=== PATIENT | male | born 1940 | race Caucasian/White ===

== ENCOUNTER 2019-08-21 09:36 | Outpatient (CLI) | payer MEDICARE, SELFPAY ==
[2019-08-22 17:56] LABS: PSA, Diagnostic 0.2 ng/ml (0-6.5)
== END 2019-08-21 09:56 ==
PROVIDERS: PCP Internal Medicine Geriatric Medicine; Visit Provider Nurse Practitioner
DX: C61 Malignant neoplasm of prostate (principal)
CPT/HCPCS: 36415; 84153

== ENCOUNTER 2019-08-28 14:35 | Outpatient (CLI) | payer MEDICARE, SELFPAY ==
[2019-09-01 14:37] LABS: Testosterone, Total 571 ng/dL (240-950)
== END 2019-08-28 14:55 ==
PROVIDERS: PCP Internal Medicine Geriatric Medicine; Visit Provider Nurse Practitioner
DX: C61 Malignant neoplasm of prostate (principal)
CPT/HCPCS: 84403

== ENCOUNTER 2019-09-15 16:07 | Outpatient (CLI) | payer MEDICARE, SELFPAY ==
--- NOTE | 2019-09-15 15:10 | DI.RAD_ITS ---
EXAM: XR RIBS RT W PA LAT CHEST INDICATION: RT SIDED RIB PAIN, R07.81. COMPARISON: CHEST 2 VIEWS PA,LAT from 01/12/2015 TECHNIQUE: 2D digital imaging was performed. FINDINGS: Sternal wires and mitral valve prosthesis are again noted. There is stable blunting at the costophre deric angles. The lungs are otherwise clear. No pneumothorax is seen. No thoracic compression fractu re is seen. There are old right mid rib fractures. There are acute fractures of the distal right 7t h and 8th ribs. IMPRESSION: Acute nondisplaced fractures of the right 7th and 8th ribs.
== END 2019-09-15 16:27 ==
PROVIDERS: PCP Internal Medicine Geriatric Medicine; Visit Provider Internal Medicine
DX: R07.81 Pleurodynia (principal); S22.41XA Multiple fractures of ribs, right side, initial encounter for closed fracture; Z95.2 Presence of prosthetic heart valve
CPT/HCPCS: 71046; 71100

== ENCOUNTER 2020-03-12 14:32 | Outpatient (REF) | payer MEDICARE, SELFPAY ==
[2020-03-12 21:24] LABS: HCT 41.9 % (40.0-50.0); HGB 14.1 g/dL (13.5-17.5); Mean Corp. HGB Concentration 33.7 g/dL (32.0-36.0); Mean Corpuscular Hemoglobin 33.1 pg (27.0-33.0); Mean Corpuscular Volume 98.4 fL (80-95); Mean Platelet Volume 12.4 fL (8.0-11.0); Platelet Count 182 x1000/uL (130-400); RBC 4.26 m/cumm (4.50-6.00); RBC Distribution Width 13.3 % (11.8-14.1); White Blood Cell Count 3.96 k/cumm (4.4-10.8)
[2020-03-12 22:09] LABS: Anion Gap 5.8 mmol/L (3-11); BUN 14 mg/dL (7-18); CO2 30.2 mmol/L (21.0-32.0); CREATININE 1.22 mg/dL (0.70-1.30); Calcium 8.4 mg/dL (8.5-10.1); Chloride 104 mmol/L (98-107); Estimated GFR 57.01 (mL/min/1.73m2); Glucose 93 mg/dL (74-106); Potassium 4.6 mmol/L (3.5-5.1); Sodium 140 mmol/L (136-145); TSH 0.13 uIU/mL (0.36-3.74)
== END 2020-03-12 14:52 ==
LOC: NCHCN 14:32
PROVIDERS: PCP Internal Medicine Geriatric Medicine; Visit Provider Internal Medicine
DX: E03.2 Hypothyroidism due to medicaments and other exogenous substances (principal); I10 Essential (primary) hypertension
CPT/HCPCS: 80048; 85027; 84443

== ENCOUNTER 2020-04-13 02:33 | Outpatient (CLI) | payer MEDICARE, SELFPAY ==
--- NOTE | 2020-04-13 | DI.RAD_ITS ---
EXAM: RF BARIUM SWALLOW CLINICAL HISTORY: DYSPHAGIA, R13.10 TECHNIQUE: COMPARISON: CR XR RIBS RT W PA LAT CHEST from 09/15/2019 FINDINGS: Preliminary films the chest show prior mitral valve replacement, no gross cardiomegaly. No acute int rapulmonary process. No pleural effusion. Lateral view neck shows no gross abnormality of the air-f illed laryngeal structures. Barium was ingested and shows unremarkable appearance of the hypo pharyn x. Esophagus appears to have normal mucosal surface by radiographic criteria. No evidence of strict ure or obstruction. There is an apparent small hiatal hernia. IMPRESSION: Negative barium swallow. If there is high suspicion of esophageal pathology additional evaluation wi th endoscopy would be recommended.
== END 2020-04-13 02:53 ==
PROVIDERS: PCP Internal Medicine; Visit Provider Internal Medicine
DX: R13.10 Dysphagia, unspecified (principal); K44.9 Diaphragmatic hernia without obstruction or gangrene
CPT/HCPCS: 74221

== ENCOUNTER 2020-06-08 11:51 | Outpatient (REF) | payer MEDICARE, SELFPAY ==
[2020-06-08 21:27] LABS: FREE T4 1.22 ng/dL (0.76-1.46)
[2020-06-09 17:39] LABS: PSA, Screening 0.3 ng/mL (0.0-6.5)
== END 2020-06-08 12:11 ==
LOC: NCHCN 11:51
PROVIDERS: PCP Internal Medicine; Visit Provider Internal Medicine
DX: E03.2 Hypothyroidism due to medicaments and other exogenous substances (principal); I10 Essential (primary) hypertension; J30.89 Other allergic rhinitis; C61 Malignant neoplasm of prostate; Z63.4 Disappearance and death of family member
CPT/HCPCS: 84153; 84439; 84443

== ENCOUNTER 2020-08-18 01:16 | Outpatient (CLI) | payer MEDICARE, SELFPAY ==
[2020-08-18 19:58] LABS: PSA, Diagnostic 0.2 ng/mL (0.0-6.5)
== END 2020-08-18 01:36 ==
PROVIDERS: PCP Internal Medicine; Visit Provider Nurse Practitioner
DX: C61 Malignant neoplasm of prostate (principal)
CPT/HCPCS: 36415; 84153

== ENCOUNTER 2020-09-09 02:44 | Outpatient (CLI) | payer MEDICARE, SELFPAY ==
[2020-09-14 17:26] LABS: Testosterone, Total 367 ng/dL (240-950)
[2020-09-15 15:46] LABS: PSA, Diagnostic 0.2 ng/ml (0-6.5)
== END 2020-09-09 03:04 ==
PROVIDERS: PCP Internal Medicine; Visit Provider Nurse Practitioner Family
DX: C61 Malignant neoplasm of prostate (principal)
CPT/HCPCS: 36415; 84403; 84153

== ENCOUNTER 2021-02-21 10:42 | Outpatient (REF) | payer MEDICARE, SELFPAY ==
[2021-02-21 13:49] LABS: HCT 42.1 % (40.0-50.0); HGB 14.3 g/dL (13.5-17.5); MCV 97.2 fL (80-95); MPV 12.9 fL (8.0-11.0); Platelet Count 138 10^3/uL (130-400); RBC 4.33 10^6/uL (4.36-5.78); RDW 13.7 % (11.8-14.1); RDW-SD 48.9 fL; WBC 3.96 10^3/uL (4.4-10.8)
[2021-02-21 14:28] LABS: ALT 23 U/L (16-63); AST 19 U/L (15-37); Albumin 3.5 g/dL (3.4-5.0); Alkaline Phosphatase 73 U/L (46-116); Anion Gap 6.1 mmol/L (3-11); BUN 21 mg/dL (7-18); Bilirubin, Total 0.4 mg/dL (0.2-1.0); CO2 30.9 mmol/L (21.0-32.0); CREATININE 1.2 mg/dL (0.70-1.30); Calcium 8.7 mg/dL (8.5-10.1); Chloride 104 mmol/L (98-107); Estimated GFR 57.96 (mL/min/1.73m2); Glucose 100 mg/dL (74-106); Potassium 4.8 mmol/L (3.5-5.1); Sodium 141 mmol/L (136-145); Total Protein 6.7 g/dL (6.4-8.2)
== END 2021-02-21 10:43 | disposition home or self-care (01) ==
LOC: NCHCN 10:42
PROVIDERS: PCP Internal Medicine; Visit Provider Internal Medicine
DX: R19.4 Change in bowel habit (principal)
CPT/HCPCS: 80053; 85027

== ENCOUNTER 2021-03-11 03:54 | Outpatient (CLI) | payer MEDICARE, SELFPAY ==
[2021-03-11] MEDS: Normal Saline - Diluent 50 ML VIAL IV (09:16)
[2021-03-11] MEDS: Omnipaque 350 MG/ML 100 ML BTL IJ (09:17)
--- NOTE | 2021-03-11 09:20 | DI.CT_ITS ---
Exam(s) CT ABDOMEN PELVIS W EXAM: CT ABDOMEN PELVIS W CLINICAL HISTORY: CHANGE IN BOWEL MOVEMENTS,R19.4 TECHNIQUE: Imaging Protocol: Axial computed tomography images with coronal and sagittal reformatted images were created and reviewed CONTRAST MATERIAL: Intravenous: Omnipaque 350 Contrast volume:100 mL Oral: Yes COMPARISON: CT ABD PELVIS WITH CONTRAST from 09/13/2012 FINDINGS: ABDOMEN: Lung Bases: Stable bilateral parenchymal scarring. Cardiomegaly. Elevation of the right hemidiaphra gm. Liver: Normal density. There is a round hypodensity in the caudal aspect of the right lobe of the trudy er. It is too small for further characterization, but likely reflects a small cyst. No suspicious h epatic masses. Portal, Superior Mesenteric, and Splenic Veins: Unremarkable. Gallbladder and Biliary Tract: No radiodense calculus or dilation. Pancreas: Normal density, no abnormal calcifications or inflammatory process. Spleen: Normal. Adrenals: The right adrenal gland is unremarkable. There is a 2.8 x 2.8 cm left adrenal nodule shazia red with 2.7 x 2.7 cm on the prior examination. This likely reflects an adenoma. No further follow- up is recommended. Kidneys: Normal size, contour and axis. No radiodense stones or obstructive uropathy. There are bilat eral simple renal cysts. No further follow-up is recommended. Stable bilateral extrarenal pelves ar e seen. Abdominal Aorta: Abdominal portion non-dilated. Moderate atherosclerosis. Bowel: There is no evidence of bowel obstruction. There is diverticulosis seen in the descending and sigmoid colon. No findings to suggest acute diverticulitis. No evidence of appendicitis. There is a moderate amount of retained stool throughout the colon. A small to moderate hiatal hernia is pres ent. Peritoneal Cavity: No ascites, collection or mesenteric inflammatory response. No free air. Lymph Nodes: Within normal limits. Bones: Within normal limits for the patient's age. Soft Tissues: Postsurgical changes are seen in the inguinal regions bilaterally suggestive history of prior inguinal repairs. There are findings suggestive of recurrent bilateral fat containing inguina l hernia. PELVIS: Bladder: Symmetric distention, no gross wall thickening. There are few bladder wall diverticula. Reproductive Organs: Prostate gland is mildly enlarged. Lymph Nodes: Within normal limits. Bones: Within normal limits for the patient's age. IMPRESSION: 1. No evidence of bowel obstruction or inflammation. 2. Colonic diverticulosis but no evidence of acute diverticulitis. 3. Moderate amount of retained stool in the colon. RADIATION DOSE DELIVERED: 657.74mGy.cm Total DLP DATA REPOSITORY: All CT scans at this facility are submitted to the National Radiology Data Registry (NRDR) Dose Index Registry (DIR) with the [employer] (ACR). RADIATION OPTIMIZATION: All CT scans at this facility use at least one of these dose optimization te chniques: automated exposure control; mA and/or kV adjustment per patient size (includes targeted exa ms where dose is matched to clinical indication); or iterative reconstruction.
== END 2021-03-11 04:14 ==
PROVIDERS: PCP Internal Medicine; Visit Provider Internal Medicine
DX: R19.4 Change in bowel habit (principal); K59.00 Constipation, unspecified; K57.30 Diverticulosis of large intestine without perforation or abscess without bleeding; N40.0 Benign prostatic hyperplasia without lower urinary tract symptoms; K44.9 Diaphragmatic hernia without obstruction or gangrene
CPT/HCPCS: 74177; J3490

== ENCOUNTER 2021-09-05 00:22 | Outpatient (CLI) | payer MEDICARE, SELFPAY ==
--- NOTE | 2021-09-05 | DI.RAD_ITS ---
Exam(s) RF BARIUM SWALLOW EXAM: RF BARIUM SWALLOW CLINICAL HISTORY: DYSPHAGIA,R13.10 TECHNIQUE: 2D and realtime digital imaging was performed. CONTRAST MATERIAL: Oral barium Oral water soluble contrast was administered. COMPARISON: CR RF BARIUM SWALLOW from 04/13/2020 FINDINGS: Films reveal cardiomegaly and sternotomy wires and prosthetic cardiac valve. Swallowing mechanism appears grossly intact. No penetration or aspiration evident. No obvious hyperte nse upper esophageal sphincter. No evidence of Zenker's diverticulum there is no evidence of fixed l esion in the esophagus. A small sliding-type hiatal hernia is noted and Schatzki ring was demonstrate d. A few tertiary waves were demonstrated. No reflux seen. IMPRESSION: Small sliding-type hiatal hernia. Schatzki ring. No prominent reflux demonstrated RADIATION DOSE DELIVERED: diane Flor=15.9 mGy
[2021-09-05] MEDS: Barium Sulfate 60% W/V 355 ML BTL PO (09:46)
[2021-09-05] MEDS: Simethicone/Sod Bicarb/Cit Ac, 4 gram PACKET 1 PACKET PO (09:47)
== END 2021-09-05 00:42 ==
PROVIDERS: PCP Internal Medicine; Visit Provider Family Medicine
DX: R13.10 Dysphagia, unspecified (principal); K44.9 Diaphragmatic hernia without obstruction or gangrene; K22.2 Esophageal obstruction
CPT/HCPCS: 74221; J3490

== ENCOUNTER 2022-03-20 11:46 | Outpatient (REF) | payer MEDICARE, SELFPAY ==
[2022-03-20 18:09] LABS: HCT 42.1 % (40.0-50.0); HGB 13.6 g/dL (13.5-17.5); MCH 32.3 pg (27.0-33.0); MCHC 32.3 % (32.0-36.0); MCV 100 fL (80-95); MPV 11.2 fL (8.0-11.0); Platelet Count 220 10^3/uL (130-400); RBC 4.21 10^6/uL (4.36-5.78); RDW 13.2 % (11.8-14.1); RDW-SD 48.7 fL; WBC 4.71 10^3/uL (4.4-10.8)
[2022-03-20 18:32] LABS: ALT 15 U/L (16-63); AST 16 U/L (15-37); Albumin 3.7 g/dL (3.4-5.0); Alkaline Phosphatase 93 U/L (46-116); Anion Gap 8.1 mmol/L (3-11); BUN 19 mg/dL (7-18); Bilirubin, Total 0.6 mg/dL (0.2-1.0); CO2 28.9 mmol/L (21.0-32.0); CREATININE 1.3 mg/dL (0.70-1.30); Chloride 105 mmol/L (98-107); Estimated GFR 52.72 (mL/min/1.73m2); Glucose 80 mg/dL (74-106); Potassium 4.7 mmol/L (3.5-5.1); Sodium 142 mmol/L (136-145); TSH 0.81 uIU/mL (0.36-3.74); Total Protein 6.8 g/dL (6.4-8.2)
== END 2022-03-20 11:47 | disposition home or self-care (01) ==
LOC: NCHCN 11:46
PROVIDERS: PCP Internal Medicine; Visit Provider Family Medicine
DX: E03.2 Hypothyroidism due to medicaments and other exogenous substances (principal); I10 Essential (primary) hypertension
CPT/HCPCS: 80053; 85027; 84443

== ENCOUNTER 2022-07-08 11:04 | Emergency (ER) | payer MEDICARE, SELFPAY ==
[2022-07-08 11:11] VITALS: BP 182/70; PULSE 68; RESP 18; TEMP 35.5; O2SAT 96
[2022-07-08] MEDS: Amoxicillin 875/Clav. 125 TAB PO (11:31)
--- NOTE | 2022-07-08 11:38 | ED.GENADUL_ITS ---
Discharge Plan Disposition Patient Disposition: HOME Condition: Stable Discharge Details Clinical Impression: Pain, dental Primary Care Provider: Dexter Pereira ED Provider: Babar Black Home Meds and New Rx's Prescriptions: New amoxicillin-pot clavulanate 875-125 mg tablet 1 tab PO BID 7 Days Qty: 14 0RF No Action atenolol 25 MG tablet 25 mg PO DAILY levothyroxine 125 MCG tablet 125 mcg PO DAILY omeprazole 20 MG capsule,delayed release(DR/EC) 20 mg BID furosemide 40 MG tablet 0.5 - 1 tab PO DAILY terazosin 2 MG capsule 2 cap PO HS potassium chloride 20 MEQ tablet extended release 0.5 tab PO DAILY polyethylene glycol 3350 17 GM powder in packet 17 gm PO HS doxycycline hyclate 100 MG tablet 100 mg PO BID Qty: 14 0RF Discharge Instructions Instructions: Toothache (ED) Additional Instructions: Please follow-up with dentist within the next week. Use referral paperwork as needed. You can also consider [facility] phone number [phone]. Please return to the emergency department for any worsening pain fevers drainage from your mouth facial swelling trouble speaking or swallowing or other abnormal symptoms. Medical Decision Making 81-year-old male presents with painful fractured teeth, chronically chipped, and eroded to level of pulp likely component of exposed nerve tissue, no evidence of apical abscess or deep space infection of head or neck, patient is tolerating secretions afebrile nontoxic. Will Tooth with calcium hydroxide composite and encourage patient to continue to seek close dental follow-up as he will likely need a root canal. Will start empirically on Augmentin. Home care instructions and return precautions to be given 12: 01 calcium hydroxide has solidified. Patient resting comfortably. Versus Augmentin has been administered. Patient will be discharged with instructions to follow-up with dentist HPI General Date/Time Provider Initiated Documentation: 07/08/22 11:14 . HPI Narrative: 82-year-old male presents with dental pain the lower incisors had been fractured for some time, now having pain on both of these teeth. No discharge fevers change in voice trouble swallowing or other systemic signs of illness. Is working on getting a dental appointment Related Data Home Medications Medication Instructions Recorded Confirmed atenolol 25 mg tablet 25 mg PO DAILY 09/22/13 07/08/22 levothyroxine 125 mcg tablet 125 mcg PO DAILY 09/22/13 07/08/22 omeprazole 20 mg capsule,delayed 20 mg BID 09/22/13 07/08/22 release furosemide 40 mg tablet 0.5 - 1 tab PO DAILY 01/06/14 07/08/22 potassium chloride 20 mEq 0.5 tab PO DAILY 01/06/14 07/08/22 tablet,extended release terazosin 2 mg capsule 2 cap PO HS 01/06/14 07/08/22 polyethylene glycol 3350 17 gram 17 gm PO HS 09/05/14 07/08/22 oral powder packet doxycycline hyclate 100 mg tablet 100 mg PO BID ##14 11/05/17 07/08/22 amoxicillin 875 mg-potassium 1 tab PO BID 7 days #14 tabs 07/08/22 clavulanate 125 mg tablet Previous Rx's Medication Instructions Recorded doxycycline hyclate 100 mg tablet 100 mg PO BID ##14 11/05/17 amoxicillin 875 mg-potassium 1 tab PO BID 7 days #14 tabs 07/08/22 clavulanate 125 mg tablet Allergies Allergy/AdvReac Type Severity Reaction Status Date / Time codeine AdvReac Unverified 03/27/17 17:08 General Stated Complaint: DentalOral JOVANA: 5 Review of Systems Narrative: Review of Systems Constitutional: negative Eyes: negative ENT: Dental pain Cardiovascular: negative Respiratory: negative Gastrointestinal: negative : negative Musculoskeletal: negative Skin: negative Neurologic: negative Psych: negative PFSH All Active Problems (Updated 07/08/22 @ 12:04 by Babar Black MD) Pain, dental (Acute) Social History Smoking/Tobacco Use Status: Never Smoking risk assessment performed?: Yes Drug use: Never Do you feel safe at home: Yes Do you feel safe in your relationship?: Yes Exam Narrative Exam Narrative: Physical Examination General: alert, awake, cooperative, resting comfortably, no acute distress HEENT: Multiple dental caries, fractured lower incisors x2, exposed pulp appears chronic in nature no periapical abscess or evidence of deep space infection of head or neck normocephalic, atraumatic; PERRL, EOM intact, conjunctiva normal; no nasal discharge; moist mucous membranes, oral and pharyngeal mucosa normal, tolerating secretions Neck: supple, trachea midline; full ROM Chest: normal to inspection Respiratory: normal respiratory effort, speaking in full sentences, clear to auscultation, no wheezing, rales or rhonchi Cardiac: regular rate, regular rhythm, S1S2 intact, no murmurs rubs or gallops GI: abdomen soft, non-tender, non-distended; no palpable mass or hepatosplenomegaly Skin: no lesions, rashes or trauma appreciated Neuro: AAOx3, normal speech, moving all extremities Psych: Appropriate mood and affect Course Vital Signs Vital signs: Vital Signs Temperature 35.5 C L 07/08/22 11:11 Pulse 68 07/08/22 11:11 Respiratory Rate 18 07/08/22 11:11 Blood Pressure 182/70 H 07/08/22 11:11 Pulse Oximetry 96 07/08/22 11:11 Temperature 35.5 C L 07/08/22 11:11 Temperature Source Temporal Artery Scan 07/08/22 11:11 Pulse 68 07/08/22 11:11 Respiratory Rate 18 07/08/22 11:11 Respiratory Effort 07/08/22 11:21 Blood Pressure 182/70 H 07/08/22 11:11 Blood Pressure Position Supine 07/08/22 11:11 Pulse Oximetry 96 07/08/22 11:11 Oxygen Delivery Method Room Air 07/08/22 11:11 Oxygen Flow Rate 0 07/08/22 11:11 Pain Level 7 07/08/22 11:11
== END 2022-07-08 12:11 | disposition home or self-care (01) ==
PROVIDERS: Emergency Provider Emergency Medicine; PCP Internal Medicine
DX: S02.5XXA Fracture of tooth (traumatic), initial encounter for closed fracture (principal); X58.XXXA Exposure to other specified factors, initial encounter; K02.9 Dental caries, unspecified
CPT/HCPCS: 99283; 99284

== ENCOUNTER 2022-10-09 16:04 | Outpatient (REF) | payer MEDICARE, SELFPAY ==
[2022-10-09 15:10] LABS: Anion Gap 4.1 mmol/L (3-11); BUN 19 mg/dL (7-18); CO2 31.9 mmol/L (21.0-32.0); CREATININE 1.2 mg/dL (0.70-1.30); Chloride 103 mmol/L (98-107); Estimated GFR 59.63 (mL/min/1.73m2); Glucose 104 mg/dL (74-106); Potassium 4.4 mmol/L (3.5-5.1); Sodium 139 mmol/L (136-145)
[2022-10-09 15:38] LABS: Vitamin D 25 Total 32.2 ng/mL (30-100)
--- OUTSIDE RECORDS SUMMARY | 2022-10-09 16:12 | XMS_ITS | Encounter Summary ---
:1940 Author Organization [facility] [place] [address] Care Team Providers Name Role Phone Fabiano Celaya MD Primary Care Provider Reason for Visit Reason Comments Laceration Encounter Details Date Type Department Care Team Description 03/06/2022 Emergency Emergency Department Sharita Cunningham laceration, left, [facility] [place] [id number] Social History Tobacco Use Types Packs/Day Years Used Date Smoking Tobacco: Never Smokeless Tobacco: Never Alcohol Use Standard Drinks/Week Comments Never 0 (1 standard drink = 0.6 oz pure alcoho l) RARE Sex Assigned at Date Recorded Not on file documented as of this encounter Last Filed Vital Signs Vital Sign Reading Time Taken Comments Blood Pressure 147/100 03/06/2022 5:11 PM EDT Pulse 87 03/06/2022 5:11 PM EDT Temperature 36.7 ??C (98 ??F) 03/06/2022 5:11 PM EDT Respiratory Rate 18 03/06/2022 5:11 PM EDT Oxygen Saturation 98% 03/06/2022 5:11 PM EDT Inhaled Oxygen Concentration - - Weight 66.2 kg (146 lb) 03/06/2022 5:11 PM EDT Height 170.2 cm (5' 7) 03/06/2022 5:11 PM EDT Body Mass Index 22.87 03/06/2022 5:11 PM EDT documented in this encounter Discharge Instructions Discharge InstructionsMane Newby PA - 03/06/2022 5:59 PM EDT You were seen today for a laceration. Please do the following to help your symptoms improve: 1. Do not get the wound wet for 1-2 days. After that, you may get it wet, but do not submerge it in water (keep covered in shower, while washing dishes, etc.) 2. Change the bandage 1-2 times daily and cleanse gently with mild soap and water. Place Bacitracin on the wound and cover with a bandage. 3. Change the dressing sooner if it is dirty or wet. 4. 1 month after suture removal, massage the scar with vitamin E oil twice daily for 2 months. When going outside, place sunscreen on the wound for the next year to decrease scarring. 5. Follow-up with your primary care provider or a walk-in clinic in 14 days for suture/staple removal. 6. Return to the emergency department for any worsening or changing symptoms such as fever greater than 100.4 F, rapidly increasing redness or swelling, severe drainage from the wound, or severe pain. AttachmentsThe following attachments cannot be sent through Care Everywhere. Lacerations: Stitches (Montenegrin)documented in this encounter Medications at Time of Discharge Medication Sig Dispensed Refills Start Date End Date multivitamin (THERAGRAN) Take 1 tablet by 0 Tablet mouth daily. Lumigan 0.01 % Drops INSTILL ONE DROP 0 2 INTO BOTH EYES AT BEDTIME pantoprazole sodium Take by mouth. 0 (PROTONIX ORAL) traMADoL (Ultram) 50 mg Take 1 tablet by 10 tablet 0 2019 Tablet mouth every 6 hours as needed for Pain. furosemide (Lasix) 40 mg Take 20 mg by mouth 0 Tablet daily. levothyroxine (Synthroid) Take 100 mcg by 0 07/08 100 mcg Tablet mouth daily. potassium chloride ER Take 10 mEq by mouth 0 05/12 (K-Dur/Klor-Con) 20 mEq daily. Tab Sust.Rel. Particle/Crystal terazosin (HYTRIN) 2 mg Take 1 capsule by 90 capsule 3 10/11 Capsule mouth nightly. polyethylene glycol Take 17 g by mouth 0 (MIRALAX) 17 gram Powder daily. in Packet documented as of this encounter ED Notes Gisell Saldivar LPN - 03/06/2022 6:07 PM EDT Discharge instructions reviewed with pt., pt will have sutures removed in 14 days. Mane Newby PA - 03/06/2022 5:58 PM EDTAssociated Order(s): Laceration Repair ED Provider Note HPI: Alfredito Mina is a 81 y.o. male who presents to the Emergency Department with concern for laceration to his L lower leg that occurred several hours [employer]. Patient states he was walking in the [place] when he hit his left ankle on a stump. Reports laceration to the right lower leg. Denies leg pain, numbness/tingling, weakness, inability to ambulate, fevers/chills, or other injuries. Unsure of tetanus status. Review of Systems Pertinent positives and negatives are included in the HPI, otherwise at least ten systems were reviewed and negative. Past Medical and Surgical Histories, Social History, Medications, Allergies were reviewed in the chart. Vitals: ED Triage Vitals [03/06/22 1711] BP: (!) 147/100 Heart Rate: 87 Resp: 18 Temp: 36.7 ??C (98 ??F) Temp src: Tympanic SpO2: 98 % O2 Device: RA O2 Flow Rate (L/min): n/a Physical Exam Vitals and nursing note reviewed. Constitutional: General: He is not in acute distress. Appearance: He is well-developed. He is not diaphoretic. HENT: Head: Normocephalic and atraumatic. Nose: Nose normal. Mouth/Throat: Mouth: Mucous membranes are moist. Pharynx: Oropharynx is clear. No oropharyngeal exudate. Eyes: General: Right eye: No discharge. Left eye: No discharge. Conjunctiva/sclera: Conjunctivae normal. Pupils: Pupils are equal, round, and reactive to light. Cardiovascular: Rate and Rhythm: Normal rate and regular rhythm. Pulses: Normal pulses. Heart sounds: Normal heart sounds. No murmur heard. Pulmonary: Effort: Pulmonary effort is normal. No respiratory distress. Breath sounds: Normal breath sounds. No wheezing or rales. Musculoskeletal: General: No tenderness. Normal range of motion. Comments: Ambulates without difficulty. 5/5 strength on flexion/extension of bilat ankles and knees. Skin: General: Skin is warm and dry. Findings: No rash. Comments: 4cm linear laceration to the L lower leg overlying the lateral malleolus with exposed subcutaneous fat. Bone visible, but no violation of the aponeurosis or other evidence of bony injury. Noforeign body found. Clean laceration. Neurological: General: No focal deficit present. Mental Status: He is alert and oriented to person, place, and time. Sensory: No sensory deficit. Motor: No weakness. Comments: No decreased sensation to light touch of the bilateral lower legs. ED Course: I have reviewed labs and imaging, images and available reports, and they are significant for: Tetanus updated. Wound thoroughly cleansed. Laceration repaired without difficulty. Patient discharged home in good condition and encouraged to return to the ED for any worsening or changing symptoms. No orders to display Laceration Repair Date/Time: 03/06/2022 6:38 PM Performed by: Mane Newby PA Authorized by: Violetta Tyler MD Consent: Verbal consent obtained. Patient identity confirmed: verbally with patient Body area: lower extremity Location details: left ankle Laceration length: 4 cm Foreign bodies: no foreign bodies Tendon involvement: none Nerve involvement: none Vascular damage: no Anesthesia: local infiltration Anesthesia: Local Anesthetic: lidocaine 1% without epinephrine Anesthetic total: 6 mL Preparation: Patient was prepped and draped in the usual sterile fashion. Irrigation solution: saline Irrigation method: jet lavage Amount of cleaning: extensive (1000ml) Debridement: none Degree of undermining: none Skin closure: 4-0 nylon Number of sutures: 6 Technique: simple Approximation: close Approximation difficulty: simple Dressing: antibiotic ointment and gauze roll Patient tolerance: patient tolerated the procedure well with no immediate complications Assessment and Plan: 81 y.o. male with L ankle laceration Tetanus updated Lac repair Wound care instructions given F/u with pcp in 14 days The visit findings, diagnosis, and care plan were discussed with the patient. The diagnosis and care plans discussions were outlined in the discharge instructions. The patient expressed understanding of the details of the visit, the return precautions and that he should return to the ER at any time for worsening symptoms, new symptoms, or other concerns. he agrees with the follow- up plan. Mane Newby PA 03/06/22 1840 Mane Newby PA - 03/06/2022 5:12 PM EDT Images from the original note were not included. Brief Provider Triage Note Name: Alfredito Mina : 1940 Date of Service: 03/06/2022 Chief Complaint: Laceration History of Present Illness: 81 y.o. y/o male presents with L lower leg laceration from a tree. Unsure of last tetanus. Vitals: BP (!) 147/100 (Patient Position: Sitting) Pulse 87 Temp 36.7 ??C (98 ??F) (Tympanic) Resp 18 Ht 170.2 cm (5' 7) Wt 66.2 kg (146 lb) SpO2 98% BMI 22.87 kg/m?? 4 cm laceration to L posterior lateral lower leg. Plan: boostrix Lac repair Re-examination Further diagnosis and management in ED COVID-19 precautions were used throughout this encounter. Mane Newby PA 03/06/22 1714 documented in this encounter Miscellaneous Notes ED Triage - Ramin Yusuf, RN - 03/06/2022 5:12 PM EDT HPI (Adult) Stated Reason for Visit: pt was working in the yard racking leaves, pt hit his left ankle on a stumpand has an open laceration on left outer ankle. no blood thinners, bleeding controlled. pt denies pain elsewhere, pt apears to be in no distress, skin pink, warm, dry, respirations non labored documented in this encounter Plan of Treatment Upcoming Encounters Date Type Specialty Care Team Description 10/11/2022 Office Visit Dermatology Virgilio Mckeon MD [facility] DR CHRISTIANO HENSON-DERMAT OLOGY [place], [place] [address] (Wo rk) 10/16/2022 Office Visit Otolaryngology Frank Buchanan MD [facility] OTOLARYNGOLOGY Sarah EPT. [place], [place] [address] (Wo rk) 11/29/2022 Appointment Hematology and Oncology 11/29/2022 Office Visit Radiation Oncology Emerald Leyva APRN [facility] RADIATION ONCOLO GY [place], [place] [address] (Wo rk) documented as of this encounter Procedures Procedure Name Priority Date/Time Associated Comments Diagnosis LACERATION REPAIR - Routine 03/06/2022 6:38 PM Re sults for this ED ONLY EDT procedure are i n the results section. documented in this encounter Results Laceration Repair (03/06/2022 6:38 PM EDT) Narrative Mane Newby PA - 03/06/2022 6:38 P M EDT Mane Newby PA ? 03/06/2022 ??6:40 PM Laceration Repair Date/Time: 03/06/2022 6:38 PM Performed by: Mane Newby PA Authorized by: Violetta Tyler MD Consent: Verbal consent obtained. Patient identity confirmed: verbally wit h patient Body area: lower extremity Location details: left ankle Laceration length: 4 cm Foreign bodies: no foreign bodies Tendon involvement: none Nerve involvement: none Vascular damage: no Anesthesia: local infiltration Anesthesia: Local Anesthetic: lidocaine 1% without e pinephrine Anesthetic total: 6 mL Preparation: Patient was prepped and jessica ped in the usual sterile fashion. Irrigation solution: saline Irrigation method: jet lavage Amount of cleaning: extensive (1000ml) Debridement: none Degree of undermining: none Skin closure: 4-0 nylon Number of sutures: 6 Technique: simple Approximation: close Approximation difficulty: simple Dressing: antibiotic ointment and gauze roll Patient tolerance: patient tolerated the procedure well with no immediate complications Violetta Tyler MD ED ORDERABLES W LINKED PERFS documented in this encounter Visit Diagnoses Diagnosis Leg laceration, left, initial encounter documented in this encounter Care Teams [employer] Mach[employer] Relationship Specialty Start Date End Date Fabiano Celaya MD PCP - General Emergency Medicine 11/21/[address] [place] [id number] documented as of this encounter
--- OUTSIDE RECORDS SUMMARY | 2022-10-09 16:12 | XMS_ITS | Encounter Summary ---
:1940 Author Organization [facility] Address [facility] [place] [address] Care Team Providers Name Role Phone Fabiano Celaya MD Primary Care Provider Encounter Details Date Type Department Care Team Description 05/02/2022 Surgery Main Operating Room Ramin Buchanan YNGOSCOPY WITH VOCAL Sharita Leisenring Maribel Beaulieu MD CORD INJECTION ([facility] 3.86) [facility] [address] [place] [address] DEPT. [phone] [place], [place] [address] (Wo rk) Social History Tobacco Use Types Packs/Day Years Used Date Smoking Tobacco: Never Smokeless Tobacco: Never Alcohol Use Standard Drinks/Week Comments Never 0 (1 standard drink = 0.6 oz pure alcoho l) RARE Sex Assigned at Date Recorded Not on file documented as of this encounter Last Filed Vital Signs Vital Sign Reading Time Taken Comments Blood Pressure 154/77 05/02/2022 8:30 AM EDT Pulse 55 05/02/2022 6:12 AM EDT Temperature 36.2 ??C (97.2 ??F) 05/02/2022 8:00 AM EDT Respiratory Rate 18 05/02/2022 8:30 AM EDT Oxygen Saturation 96% 05/02/2022 8:30 AM EDT Inhaled Oxygen Concentration - - Weight 66.2 kg (146 lb) 05/02/2022 6:12 AM EDT Height 170.2 cm (5' 7) 05/02/2022 6:12 AM EDT Body Mass Index 22.87 05/02/2022 6:12 AM EDT documented in this encounter Discharge Instructions Patient InstructionsSona Joyce MD - 05/02/2022 8:28 AM EDT Instructions for Patient at Discharge: What to expect: You will have soreness which will improve over the next several days. The area around the incision may be numb. This should recover over the next few months. Laryngoscopy After a laryngoscopy, you may experience sore throat, some painful swallowing, and brief change in voice. You can use pain medications for sore throat in addition to over the counter agents such as Chloraseptic, Menthol cough drops/lozenges, honey, tea, and warm or cool drinks as tolerated for ease the sore throat. Since we took biopsies, you may have some bleeding from the mouth, however, if this does not resolvewithin 24-36 hours or becomes bernardo active bright red bleeding that does not stop, please call the office or check with your local ED to be evaluated. Medications: Pain Control - use acetaminophen (Tylenol) and/or ibuprofen (Motrin, Advil) as needed. You can take 500 mg to 650 mg of Tylenol every 4-6 hours as needed. Do not exceed 4g acetaminophen per day and do not drink alcohol while taking tylenol. You can also take 400 to 600 mg of Ibuprofen (Motrin,Advil) every 6 hours as needed. Activity: A good rule of thumb is if it hurts don't do it. Keep your head elevated when lying flat. No heavy lifting or straining for the next week. No smoking, this is important for wound healing. Diet: Resume baseline diet You should call your doctor if you develop: -Increased shortness of breath -Increasing pain and redness -Increasing drainage from the wound -Fever > 38.5Celsius or 101 Fahrenheit -Bleeding Contact: -You can reach the ENT clinic at [phone] for appointment questions. -The ENT triage nurse is available at [phone] -For urgent issues during evenings (5 PM - 7 AM) and weekends the ENT resident iron erector can be reached through the main hospital strong nitric operator at [phone] Follow Up: You will need to follow up with an associate provider in one week. This appointment has been requested. You will be notified once it is scheduled, if you do not already see it below. If you do not hearfrom us in a timely manner, please call to receive your date and time. Currently Scheduled Appointments and VNA instructions: Future Appointments and Orders Future Appointments and Orders Future Appointments Provider Department Dept Phone 05/11/2022 1:00 PM Bobby Santos PA [place] [facility] Arrive at: [facility] 4F [phone] documented in this encounter Medications at Time of [...] in Packet documented as of this encounter H&P Notes Sona Joyce MD - 05/02/2022 7:07 AM EDT Patient Name: Alfredito Mina Patient Age: 81 y.o. Birthdate: 1940 Admit date: 05/02/2022 Attending Physician: Ramin Buchanan MD OTOLARYNGOLOGY - HEAD & NECK SURGERY INTERVAL H&P NOTE Name: Alfredito Mina Age/Sex: 81 y.o. male Attending: Ramin Buchanan MD Hospital Day: 1 Interval History Please see clinic/scanned H&P dated 03/06. In brief, Alfredito Mina presents today for LEFT vocal cord injection. There have been no changes to his history. Physical Exam Patient Vitals for the past 24 hrs: Temp Pulse Resp BP SpO2 O2 Device 05/02/22 0612 36.8 ??C (98.2 ??F) 55 16 172/78 98 % RA Gen: No acute distress, alert and answers questions appropriately CV: Regular rate Pulm: Unlabored breathing Abd: Abdomen soft and non-tender Ext: No peripheral edema ASSESSMENT & PLAN Plan for LEFT vocal cord injection. Consent signed, dated, placed in chart Ok to proceed with scheduled operation. 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 The patient presented with progressive symptomatic paralysis with choking while drinking and hoarseness. As such, recommendation made for LEFT vocal cord injection. Findings: No masses, lesions or ulcerations of larynx or hypopharynx. LEFT vocal cord injected with 0.9 cc Prolaryn Plus with adequate medialization. Procedure description: After informed consent was obtained the patient was placed under general anesthesia and masked. Patient was turned 90 degrees and a timeout was called. After protecting the upper gums/teeth, a Geovanni laryngoscope was introduced into the oral cavity, positioned to allow for visualization of the larynx, and placed in suspension. A 0 degree Tubbs scope was then passed through the laryngoscope and the oropharynx, hypopharynx, and larynx were explored and visualized on the screen monitor and tower for documentation. Findings noted above. The Prolaryn plus was introduced on a long needle throughthe Geovanni and injected slightly anterior to the vocal cord process and lateral to the vocal cord itself. Additional Prolaryn was injected slightly more anteriorly with medialization of vocal cord seen under direct visualization. 0.9 cc was injected in total. Hemostasis was confirmed, patient was taken out of suspension and the Geovanni laryngoscope was removed. The patient was turned back to anesthesia and awakened without complication. All counts were correct. Sona Preston MD ENT PGY-3 [id number] Attestation: Case Date: 05/02/2022 I was present and I participated during the entire procedure (does not need to include opening and closing). RAMIN BUCHANAN MD 05/09/2022 documented in this encounter Plan of Treatment Upcoming Encounters Date Type Specialty Care Team Description 10/11/2022 Office Visit Dermatology Virgilio Mckeon MD [facility] DR CHRISTIANO HENSON-DERMAT OLOGY [place], [place] [address] (Leroy bhatia) 10/16/2022 Office Visit Otolaryngology Frank Buchanan MD [facility] OTOLARYNGOLOGY Sarah EPT. [place], [place] [address] (Leroy bhatia) 11/29/2022 Appointment Hematology and Oncology 11/29/2022 Office Visit Radiation Oncology Emerald Leyva APRN [facility] RADIATION ONCCESAR GY [place], [place] [address] (Leroy bhatia) documented as of this encounter Procedures Procedure Name Priority Date/Time Associated Diagnosis Comme nts LARYNGOSCOPY WITH VOCAL 05/02/2022 7:25 AM Vocal cord paralysis CORD INJECTION ([facility] EDT 3.86) LARYNGOSCOPY WITH VOCAL Routine 05/02/2022 5:58 AM Vocal cord paralysis CORD INJECTION EDT IMPLANTABLE DEVICES SCAN 05/02/2022 12:00 AM EDT documented in this encounter Results SCAN DOC: IMPLANTABLE DEVICES (05/02/2022 12:00 AM EDT) Narrative This result has an attachment that is no t available. Unknown MEDIA MGR SCAN EXT ORDR/RSLT documented in this encounter Visit Diagnoses Diagnosis Vocal cord paralysis Paralysis of vocal cords or larynx, unsp ecified Vocal cord paralysis Paralysis of vocal cords or larynx, unsp ecified documented in this encounter Administered Medications Inactive Administered Medications - up to 3 most recent administrations Medication Order MAR Action Action Date Dose Rate Site acetaminophen (Tylenol) tablet Given 05/02/2022 6:28 AM EDT 1,00 0 mg 1,000 mg 1,000 mg, Oral, ONCE, 1 dose, On Sun05/02/22 at 0630, Administer with SIP of H2O only., Day of Surgery (Day of Procedure), Routine documented in this encounter Active and Recently Administered Medications Times are shown in EDT. Scheduled Medication Order 04/30/2022 05/01/2022 05/02/2022 acetaminophen (Tylenol) tablet 1,000 mg (COMPLETED) 0628 (Given - Provider: Anais Michele RN) 1,000 mg, Oral, ONCE, 1 dose, On 04/13 at 0630, Administer with SIP of H2O only., Day of Surgery (Day of Procedure), Routine documented in this encounter Care Teams Pig Machine Supervisor Relationship Specialty Start Date End Date Fabiano Celaya MD PCP - General Emergency Medicine 11/21/21 [address] [place] [address] documented as of this encounter
--- OUTSIDE RECORDS SUMMARY | 2022-10-09 16:12 | XMS_ITS | Encounter Summary ---
:1940 Author Organization [facility] [place] [address] Care Team Providers Name Role Phone Fabiano Celaya MD Primary Care Provider Reason for Visit Reason Comments Follow-up 3 mo f/u. Coughing after dri nking and eating. Encounter Details Date Type Department Care Team Description 03/06/2022 Office Visit Otolaryngology at Ramin Mayes Vocal cord paralysis [facility] [place] [address] [facility] [phone] JUDITH GAP OTOLARYNGOLOGY DEPT. [place], [place] [address] Social History Tobacco Use Types Packs/Day Years Used Date Smoking Tobacco: Never Smokeless Tobacco: Never Alcohol Use Standard Drinks/Week Comments Never 0 (1 standard drink = 0.6 oz pure alcoho l) RARE Sex Assigned at Date Recorded Not on file documented as of this encounter Last Filed Vital Signs Vital Sign Reading Time Taken Comments Blood Pressure - - Pulse - - Temperature - - Respiratory Rate - - Oxygen Saturation - - Inhaled Oxygen Concentration - - Weight 67.7 kg (149 lb 3.2 oz) 03/06/2022 10:20 AM EDT Height 162.6 cm (5' 4) 03/06/2022 10:20 AM EDT Reporte d Body Mass Index 25.61 03/06/2022 10:20 AM EDT documented in this encounter Progress Notes Ramin Vigil MD - 03/06/2022 10:20 AM EDT [facility] OTOLARYNGOLOGY BRIEF FOLLOW UP NOTE Alfredito Mina is a 81 y.o. male followed for: LEFT vocal cord paralysis This patient has a history of left vocal cord paralysis s/p thyroidectomy. I had seen him several times in the past and we discussed DL with injection. The patient is having symptomatic paralysis with choking while drinking and hoarseness. He declined treatment in the past. He is accompanied by his SOtoday. They both report increased difficult with choking while eating and are now interested in proceeding with vocal cord injection in the OR. ASSESSMENT/RECOMMENDATIONS LEFT vocal cord paralysis Will plan on DL and vocal cord injection He understands that results may be temporary and may not completely correct his condition. He may need additional treatment or future injections. I appreciate the opportunity to be involved in Mr. Mina's care. RAMIN VIGIL MD 03/06/2022 documented in this encounter Plan of Treatment Upcoming Encounters Date Type Specialty Care Team Description 10/11/2022 Office Visit Dermatology Virgilio Mckeon MD [facility] DR CHRISTIANO HENSON-DERMAT OLOGY [place], [place] [address] (Wo rk) 10/16/2022 Office Visit Otolaryngology Frank Vigil MD [facility] OTOLARYNGOLOGY D EPT. [place], [place] [address] (Wo rk) 11/29/2022 Appointment Hematology and Oncology 11/29/2022 Office Visit Radiation Oncology Emerald Leyva APRN [facility] RADIATION ONCCESAR [place], [place] [address] (Wo rk) documented as of this encounter Visit Diagnoses Diagnosis Vocal cord paralysis Paralysis of vocal cords or larynx, unsp ecified documented in this encounter Care Teams Energy Efficiency Finance Manager Relationship Specialty Start Date End Date Fabiano Celaya MD PCP - General Emergency Medicine 11/21/21 [address] [place] [address] documented as of this encounter
--- OUTSIDE RECORDS SUMMARY | 2022-10-09 16:12 | XMS_ITS | Encounter Summary ---
:1940 Author Organization [facility] Address [facility] [place] [address] Care Team Providers Name Role Phone Fabiano Celaya MD Primary Care Provider Reason for Visit Reason Comments Foreign Body in Skin Splinter on finger nail, nee ds to be removed, been in finger nail for about 4-5 days, sta rting to hurt a little bit now, R hand ring finger Encounter Details Date Type Department Care Team Description 12/05/2021 Office Visit Internal Medicine at [facility] Spli nter of finger [facility] PMO BUSINESS ANALYST without major open [facility] wou nd with infection, Drive initial encounter [place], [place] INTERNAL MEDIC[facility] [place] [address] [place] [address] [phone] Social History Tobacco Use Types Packs/Day Years Used Date Smoking Tobacco: Never Smokeless Tobacco: Never Alcohol Use Standard Drinks/Week Comments Never 0 (1 standard drink = 0.6 oz pure alcoho l) RARE Sex Assigned at Date Recorded Not on file documented as of this encounter Last Filed Vital Signs Vital Sign Reading Time Taken Comments Blood Pressure 159/63 12/05/2021 10:21 AM EST Pulse 73 12/05/2021 10:21 AM EST Temperature 36.5 ??C (97.7 ??F) 12/05/2021 10:21 AM EST Respiratory Rate 16 12/05/2021 10:21 AM EST Oxygen Saturation 97% 12/05/2021 10:21 AM EST Inhaled Oxygen Concentration - - Weight 64.9 kg (143 lb) 12/05/2021 10:21 AM EST reporte d Height 162 cm (5' 3.78) 12/05/2021 10:21 AM EST report ed Body Mass Index 24.72 12/05/2021 10:21 AM EST documented in this encounter Progress Notes Kesha Rob CCMA - 12/05/2021 10:20 AM EST Evaluation today was performed: [] By video conference [x] In-person PPE used during in-person evaluation: [] Gloves [] Gown [x] Goggles [] Face-shield [x] Level 2 mask [] N-95 [] PAPR Karen Lee APRN - 12/05/2021 10:20 AM EST Images from the original note were not included. General Internal Medicine Visit Subjective: Patient Information: Alfredito Mina is a 81 y.o. male, a patient of Fabiano Celaya MD, with IFG, HTN, lung cancer on her pertinent problem list. 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 He presents today for: ?? Splinter: wood splinter under right ring finger nail, occurred one week ago while sanding wood. Slight tenderness.; Mild redness at nail bed first noticed this morning no changes to sensation. No fever or chills. Objective: Visit Vitals BP 159/63 (BP Location (NBP): Right arm, Patient Position: Sitting, BP Cuff Sizes: Adult (25-34 cm)) Pulse 73 Temp 36.5 ??C (97.7 ??F) (Oral) Resp 16 Ht 162 cm (5' 3.78) Comment: reported Wt 64.9 kg (143 lb) Comment: reported SpO2 97% BMI 24.72 kg/m?? BP Readings from Last 3 Encounters: 12/05/21 159/63 11/21/21 174/74 06/27/21 135/80 Wt Readings from Last 3 Encounters: 12/05/21 64.9 kg (143 lb) 06/27/21 65 kg (143 lb 3.2 oz) 11/25/20 63.6 kg (140 lb 3.2 oz) Physical Exam Constitutional: General: He is not in acute distress. Pulmonary: Effort: Pulmonary effort is normal. Skin: General: Skin is warm and dry. Capillary Refill: Capillary refill takes less than 2 seconds. Comments: Right fourth finger: dark splinter under length of nail. Faint erythema at base of nail bed. Mild tenderness with palpation. Scant serosanguinous fluid expressed with pressure. Neurological: General: No focal deficit present. Mental Status: He is alert. Sensory: No sensory deficit. Motor: No weakness. Media Information Document Information Photographic Image: Photographs - Images 12/05/2021 11:42 Attached To: Alfredito Albaradoeynolds Source Information Karen Lee APRN [facility] 3m Assessment and Plan: I discussed the following diagnosis/diagnoses and differential diagnoses in detail with Mr. Mina, including treatment options and he agrees with the plan outlined below. All chronic problems listed in H&P are stable unless otherwise noted below. After obtaining verbal consent, an initial attempt was made by this loan underwriter in clinic to remove cut nail in order to create opening to remove splinter. Nail and finger were cleansed with alcohol wipe and a 2mm incision was made into nail. Splinter accessed but unable to grasp. Patient tolerated well. Decision was made to contact Hand Service given difficult nature of splinter extraction. Hand service paged and advised that Mr. Mina be seen in their Resident Clinic for further evaluation and treatment. Mr. Mina was briefed on plan and was in agreement, and proceeded to Orthopedics clinic for further management. 1. Splinter of finger without major open wound with infection, initial encounter - Mr. Mina was given the necessary information on his condition and instructed to return to clinic if symptoms continue or worsen and to follow-up with Fabiano Celaya MD for chronic management as needed. - An After Visit Summary was either printed and given to the patient or provided via the patient portal at the patient's request. Patient's Medications New Prescriptions No medications on file Previous Medications FUROSEMIDE (LASIX) 40 MG TABLET Take 20-40 mg by mouth daily. LEVOTHYROXINE (SYNTHROID) 100 MCG TABLET Take 100 mcg by mouth daily. POLYETHYLENE GLYCOL (MIRALAX) 17 GRAM POWDER IN PACKET Take 17 g by mouth daily. POTASSIUM CHLORIDE ER (K-DUR/KLOR-CON) 20 MEQ TAB SUST.REL. PARTICLE/CRYSTAL Take 10 mEq by mouth daily. TERAZOSIN (HYTRIN) 2 MG CAPSULE Take 1 capsule by mouth nightly. TRAMADOL (ULTRAM) 50 MG TABLET Take 1 tablet by mouth every 6 hours as needed for Pain. Modified Medications No medications on file Discontinued Medications No medications on file documented in this encounter Plan of Treatment Upcoming Encounters Date Type Specialty Care Team Description 10/11/2022 Office Visit Dermatology Virgilio Mckeon MD [facility] DR CHRISTIANO HENSON-DERMAT OLOGY [place], [place] [address] (Wo rk) 10/16/2022 Office Visit Otolaryngology Frank Buchanan MD [facility] OTOLARYNGOLOGY Sarah EPT. [place], [place] [address] (Wo rk) 11/29/2022 Appointment Hematology and Oncology 11/29/2022 Office Visit Radiation Oncology Emerald Leyva APRN [facility] RADIATION ONCCESAR GY [place], [place] [address] (Wo rk) documented as of this encounter Visit Diagnoses Diagnosis Splinter of finger without major open wo und with infection, initial encounter documented in this encounter Care Teams House Mover Relationship Specialty Start Date End Date Fabiano Celaya MD PCP - General Emergency Medicine 11/21/21 [address] [place] [address] documented as of this encounter
--- OUTSIDE RECORDS SUMMARY | 2022-10-09 16:12 | XMS_ITS | Encounter Summary ---
:1940 [place] [address] Care Team Providers Name Role Phone Fabiano Celaya MD Primary Care Provider Encounter Details Date Type Department Care Team Description 01/04/2022 Telephone Otolaryngology at [facility] [place] [address] Social History Tobacco Use Types Packs/Day Years Used Date Smoking Tobacco: Never Smokeless Tobacco: Never Alcohol Use Standard Drinks/Week Comments Never 0 (1 standard drink = 0.6 oz pure alcoho l) RARE Sex Assigned at Date Recorded Not on file documented as of this encounter Miscellaneous Notes Telephone Encounter - Hanna Rose - 01/09/2022 2:47 PM EST I called back and informed them that an order was placed in June from Dr. Cote for a Lung CTand it appeared to still be valid. I provided the phone number to CT Scheduling. Telephone Encounter - Hanna Rose - 01/09/2022 2:47 PM EST ----- Message ----- From: Maday Vasquez RN Sent: 01/09/2022 1:29 PM EST To: Hanna Rose [facility] [place] [place] Otolaryngology Nurse A CT of the chest was ordered by Dr. Cote back in June and does not appear to have . Telephone Encounter - Hanna Rose - 01/09/2022 1:05 PM EST I received a call from women who identified herself as Stephanie Coyle who states Alfredito is her boyfriend. I don't see her name as an emergency contact and no DOPR signed that I could see, however, the cell number on file belongs to her (she verified the number). She states she called last week as well looking to see if Dr. Buchanan can order imaging of Alfredito's lungs. I couldn't get a straight forward answer if Alfredito was requesting this or Dr. Buchanan. Idid suggest contacting Alfredito's PCP to see if they could order as I wasn't positive this is something our department would order since it's not an area we look at. She stated his office is not open on the weekend. I had a hard time following the conversation. I did acknowledge that it appears she spoke with Sharita last week and a message was sent to Dr. Buchanan's nurse, and stated I would send another message. She was happy with this plan. Telephone Encounter - Sharita Cota - 01/04/2022 9:00 AM EST pt's called asking if Dr Buchanan could place an order for chest ct prior to Him having a surgery. Pt is scheduled to see dr Buchanan February. documented in this encounter Plan of Treatment Upcoming Encounters Date Type Specialty Care Team Description 10/11/2022 Office Visit Dermatology Virgilio Mckeon MD [facility] ER DR CHRISTIANO HENSON-DERMAT [place], [place] [address] (Wo rk) 10/16/2022 Office Visit Otolaryngology Frank Buchanan MD [facility] ER OTOLARYNGOLOGY Sarah EPT. [place], [place] [address] (Wo rk) 11/29/2022 Appointment Hematology and Oncology 11/29/2022 Office Visit Radiation Oncology Emerald Leyva APRN [facility] RADIATION ONCCESAR [place], [place] [address] (Wo rk) documented as of this encounter Visit Diagnoses Not on filedocumented in this encounter Care Teams Latexer Relationship Specialty Start Date End Date Fabiano Celaya MD PCP - General Emergency Medicine 11/21/21 [address] [place] [address] documented as of this encounter
--- OUTSIDE RECORDS SUMMARY | 2022-10-09 16:12 | XMS_ITS | Encounter Summary ---
:1940 Author Organization [facility] [place] [address] Care Team Providers Name Role Phone Dexter Pereira MD Primary Care Provider Reason for Visit Reason Onset Date Comments Results 10/25/2020 Encounter Details Date Type Department Care Team Description 10/25[facility]2020 [facility] [address] [phone] Social History Tobacco Use Types Packs/Day Years Used Date Smoking Tobacco: Never Smokeless Tobacco: Never Alcohol Use Standard Drinks/Week Comments Never 0 (1 standard drink = 0.6 oz pure alcoho l) RARE Sex Assigned at Date Recorded Not on file documented as of this encounter Miscellaneous Notes Telephone Encounter - Kaylie Damon RN - 10/25/2020 11:50 AM EST Patient S/O called to discuss concerns over appointments. Concerned that labs were not drawn properly. Would like a Provider to call Alfredito to tell him lab results, and whether he is cleared to have surgery on this coming Sunday for a hernia repair. Discussed that Mr. Mina has missed his last 3 appointments for Rad/Onc follow up where test results would have been shared. Kimberly states that patient is upset because he had to have labs drawn twice because they were not drawn right the first time. Acknowledged that this was not ideal. Discussed that moving forward we would like him to keep appointments. Kimberly states that he does not have good cell phone service so has not been able to makelast 3 appointments. Discussed that he has been able to make it to Surgical appointments and follow ups, his Cancer Care is important as well and should be prioritized. Kimberly states they will ask someone else to follow up with Alfredito, and follow up with Surgery about test results and if he is cleared for Hernia repair. documented in this encounter Plan of Treatment Upcoming Encounters Date Type Specialty Care Team Description 10/11/2022 Office Visit Dermatology Virgilio Mckeon MD [facility] ER DR CHRISTIANO HENSON-DERMAT OLOGY [place], [place] [address] (Wo rk) 10/16/2022 Office Visit Otolaryngology Frank Buchanan MD [facility] OTOLARYNGOLOGY D EPT. [place], [place] [address] (Wo rk) 11/29/2022 Appointment Hematology and Oncology 11/29/2022 Office Visit Radiation Oncology Emerald Leyva APRN [facility] ER RADIATION ONCOLO [place], [place] [address] (Wo rk) documented as of this encounter Visit Diagnoses Not on filedocumented in this encounter Care Teams Campus Monitor Relationship Specialty Start Date End Date Dexter Pereira MD PCP - General Internal Medicine 06/21/20 11/20/21 [address] [place] [address] documented as of this encounter
--- OUTSIDE RECORDS SUMMARY | 2022-10-09 16:12 | XMS_ITS | Encounter Summary ---
:1940 Author Organization [facility] [place] [address] Care Team Providers Name Role Phone Dexter Pereira MD Primary Care Provider Reason for Visit Reason Comments Skin Check Encounter Details Date Type Department Care Team Description 08/26/2021 Office Visit Dermatology at [facility], History of basal cell carcinoma; Emilia GALINDO Seborrheic keratosis; [address] [facility] Solar lentigo; [place] [phone] Maloney angioorlando; [phone] DERMATOLOGY Multiple benign nevi; [place], [place] [address] Actinic keratosis; [phone] Skin cancer scr eening; (Work) History of dermatitis Social History Tobacco Use Types Packs/Day Years Used Date Smoking Tobacco: Never Smokeless Tobacco: Never Alcohol Use Standard Drinks/Week Comments Never 0 (1 standard drink = 0.6 oz pure alcoho l) RARE Sex Assigned at Date Recorded Not on file documented as of this encounter Progress Notes Eden Ac MD - 08/26/2021 11:00 AM EDT Images from the original note were not included. DEPARTMENT OF DERMATOLOGY Medical Dermatology Clinic Provider: [facility] Ac MD Patient's preferred name Alfredito Preferred contact method for results [x]Phone []myD-H []Letter Detailed phone message OK? Yes Past Medical History Date, location, treatment Melanoma N Dysplastic nevi N SCC N BCC 11/23/2014 ---Pathologic Diagnosis--- Treated with ED&C, right mid lateral back 12/08/2014 A - Skin, right mid lateral back, shave biopsy: Basal cell carcinoma, superficial type, extending to both peripheral margins. 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 AKs N UV Exposure & Protection N Other relevant past medical history N Family History Details Melanoma N NMSC N Other relevant family history N Social History Pre-Procedure Questions Details Allergy to lidocaine, epinephrine, Dermabond, chlorhexidine, or adhesives N Bleeding disorder or blood thinners N Pacemaker, defibrillator, deep brain stimulator, cochlear implant mitral valve repair 2011 History of Present Illness: Alfredito Mina is a 81 y.o. Patient returns to clinic today for a full skin exam and he reports that he recently had a breakout of red spots all over the body. Was itchy, has begun to clear and itching has resolved; had something similar. Last visit at [facility] Derm: 08/10/2020 Medications: Reviewed in eD-H Allergies: Reviewed in eD-H Skin Examination: Full skin examination: Patient asked to undress to their comfort level. Verbalized that the provider???s preference is that the patient remove all clothing and that the provider will not examine areas patient elects to keep covered. Patient elects to keep underwear on and have the following examined: s calp, hair, face, ears, neck, chest, axillae, abdomen, back, and upper and lower extremities. Genitalia and buttocks were not examined. Assessment/Plan #. Hx of BCC -Scar well healed on the right mid lateral back - NER - Will continue to monitor - Continue diligent sun protection # Solar lentigines - 0.3-0.6cm light-brown evenly pigmented, well-demarcated macules in a photodistributed pattern on the face, trunk and extremities. - Recommend sun protection (hats/shade/clothing) and sunscreen SPF 30+ - Discussed??warning signs of skin cancer #. Seborrheic Keratoses -Multiple 0.4-1 cm, brown-black papules/plaques with waxy stuck on appearance - Benign. No treatment necessary. - Reassured about benign nature and natural history. #. Maloney Angiomas -Multiple 0.2-0.4cm bright red, well-demarcated papules on the trunk and extremities - Benign. No treatment necessary. - Reassured about benign nature and natural history. #. Benign Appearing Nevi -Multiple, 0.3-0.5cm, medium-brown, evenly-pigmented macules and papules. All with regular pigment pattern on dermoscopy. No pigmented lesions suspicious for melanoma. - Benign. No treatment necessary. - Reassured about benign nature and natural history. #. Actinic Keratoses -0.2-0.3cm scaly irregular pink papule(s) on the left posterior helix - Counseled: AKs, risk for progression to SCCs, and treatment options, including observation, LN2, Efudex cream, and PDT. Procedure Note: Procedure: Destruction of lesions with cryotherapy. Number: 1 Location: as above Discussed procedure and expectations including risks (including risk of hypopigmentation) and benefits. Verbal consent obtained. Frozen with LN2, 15-30 second thaw time. There were no complications; the patient tolerated the procedure well. Post-procedure expectations and wound care were reviewed. # Patient- reported hx of rash - skin clear on exam today - unclear etiology; RTC if recurs for exam Other: ??? 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 I performed the above scribed service and agree with the accuracy of the documentation in this encounter. Reviewed and signed by: [facility] Ac MD Dermatology [facility] documented in this encounter Plan of Treatment Upcoming Encounters Date Type Specialty Care Team Description 10/11/2022 Office Visit Dermatology Virgilio Mckeon MD [facility] DR CHRISTIANO HENSON-DERMAT [place] [address] (Wo rk) 10/16/2022 Office Visit Otolaryngology Frank Buchanan MD [facility] ER OTOLARYNGOLOGY Sarah EPT. [place], [place] [address] (Wo rk) 11/29/2022 Appointment Hematology and Oncology 11/29/2022 Office Visit Radiation Oncology Emerald Leyva APRN [facility] RADIATION ONCOLO [place], [place] [address] (Wo rk) documented as of this encounter Visit Diagnoses Diagnosis History of basal cell carcinoma Personal history of other malignant neop lasm of skin Seborrheic keratosis Other seborrheic keratosis Solar lentigo Other dyschromia Maloney angioma Nevus, non-neoplastic Multiple benign nevi Benign neoplasm of skin, site unspecifie d Actinic keratosis Skin cancer screening Screening for malignant neoplasm of the skin History of dermatitis Personal history of diseases of skin and subcutaneous tissue documented in this encounter Care Teams Civil Transportation Engineer Relationship Specialty Start Date End Date Dexter Pereira MD PCP - General Internal Medicine 06/21/20 11/20/21 [address] [place] [address] documented as of this encounter
--- OUTSIDE RECORDS SUMMARY | 2022-10-09 16:12 | XMS_ITS | Encounter Summary ---
:1940 Author Organization [facility] [place] [address] Care Team Providers Name Role Phone Dexter Pereira MD Primary Care Provider Encounter Details Date Type Department Care Team Description 09/05/2021 [facility] [address] [phone] Social History Tobacco Use Types Packs/Day Years Used Date Smoking Tobacco: Never Smokeless Tobacco: Never Alcohol Use Standard Drinks/Week Comments Never 0 (1 standard drink = 0.6 oz pure alcoho l) RARE Sex Assigned at Date Recorded Not on file documented as of this encounter Plan of Treatment Upcoming Encounters Date Type Specialty Care Team Description 10/11/2022 Office Visit Dermatology Virgilio Mckeon MD [facility] DR CHRISTIANO HENSON-DERMAT OLOGY [place], [place] [address] (Wo rk) 10/16/2022 Office Visit Otolaryngology Frank Buchanan MD [facility] OTOLARYNGOLOGY Sarah EPT. [place], [place] [address] (Wo rk) 11/29/2022 Appointment Hematology and Oncology 11/29/2022 Office Visit Radiation Oncology Emerald Leyva APRN [facility] RADIATION ONCOLO [place], [place] [address] (Wo rk) Scheduled Orders Name Type Priority Associated Diagnoses Order S chedule PSA (Ultrasensitive), Lab Routine Prostate cancer Exp ected: 10/06/2021 total and free (Approximate) , Expires: 04/07/2022 Testosterone, total Lab Routine Prostate cancer Expec lindsay: 10/06/2021 (Approximate), Expires: 04/07/2022 documented as of this encounter Visit Diagnoses Diagnosis Prostate cancer Malignant neoplasm of prostate documented in this encounter Care Teams Safety Administrator Relationship Specialty Start Date End Date Dexter Pereira MD PCP - General Internal Medicine 06/21/20 11/20/21 [address] [place] [address] documented as of this encounter
--- OUTSIDE RECORDS SUMMARY | 2022-10-09 16:12 | XMS_ITS | Encounter Summary ---
:1940 [place] [address] Care Team Providers Name Role Phone Dexter Pereira MD Primary Care Provider Encounter Details Date Type Department Care Team Description 10/27/2020 Surgery Main Operating Room Liban Knight MD LAPAROSCOPIC HERNIA [facility] REPAIR, INITIAL Hospital DR PÉREZ MCQUEEN ([facility] GENERAL SURGE RY 6.36) [place] [address] [place] [address] [phone] Social History Tobacco Use Types Packs/Day Years Used Date Smoking Tobacco: Never Smokeless Tobacco: Never Alcohol Use Standard Drinks/Week Comments Never 0 (1 standard drink = 0.6 oz pure alcoho l) RARE Sex Assigned at Date Recorded Not on file documented as of this encounter Last Filed Vital Signs Vital Sign Reading Time Taken Comments Blood Pressure 149/69 10/27/2020 7:39 AM EST Pulse 64 10/27/2020 7:39 AM EST Temperature 36.6 ??C (97.9 ??F) 10/27/2020 7:39 AM EST Respiratory Rate 16 10/27/2020 7:39 AM EST Oxygen Saturation 99% 10/27/2020 7:39 AM EST Inhaled Oxygen Concentration - - Weight 61.2 kg (134 lb 14.4 oz) 10/27/2020 7:39 AM EST Height 167.6 cm (5' 6) 10/27/2020 7:39 AM EST Body Mass Index 21.77 10/27/2020 7:39 AM EST documented in this encounter Discharge Instructions Patient InstructionsIrene Bose MD - 10/27/2020 10:53 AM EST Instructions following Laparoscopic Inguinal Hernia Repair Wound Care: You will either have a liquid dressing or steri-strips and Band-Aids or a dry sterile dressing. ?? If you have a liquid dressing, there is nothing to remove. - Please keep the area clean and dry. After 24 hours, you may shower and gently pat the area dry. ?? If you have steri-strips and Band-Aids, remove the Band-Aids/outer dressing in 48 hours. - You may then shower and pat the area dry. Leave the steri-strips (little pieces of skin tape) across the incision and allow them to peel off on their own. If they are still there in 10 days, you may remove them. ?? Some bruising around your incisions is normal. ?? For men: Bruising and swelling of your scrotum and base of your penis is normal ?? No swimming or soaking for two weeks. ?? Your stitches will dissolve and do not need to be removed. Urinary retention: If you are unable to urinate 6-8 hours after your surgery, please call [phone] before 5 PM weekdays and [phone] after 5 PM and weekends to discuss further managment. Activity: No heavy lifting more than 10 pounds for the next 2 weeks, then you may gradually lift heavier objects as tolerated by discomfort. Otherwise activity as tolerated by your comfort level. Pain Management: Use Tylenol, ibuprofen and ice to treat your pain. ?? You may take 1 gram of Tylenol (Max 4 grams per day), and 600 mg of ibuprofen with meals and before bed time. ?? You may use an ice pack to your groin as needed. ?? If you still have pain not controlled by these measures, take your prescription pain medication as prescribed. Bowel Medications: Prescription pain medication can make you constipated. If you take this medication, also take mg twice daily (this is over the counter). If this is not sufficient, you may take Miralax (polyethylene glycol) to help move your bowels. Diet: After your procedure, there are no dietary restrictions. Driving restrictions: No driving if you are taking prescription pain medication or if you think your normal reaction time and attentiveness has been slowed by your surgery. Call Doctor for: Please call if you notice worsening redness or drainage from incision(s) lasting longer than 5 days after your surgery, any foul-smelling drainage from the incision, pain not controlled by pain medications, persistent nausea and vomiting, or for any fevers greater than 101.3 F. The number for questions is [phone] before 5 PM weekdays and [phone] after 5 PM and weekends. Follow-up: Follow-up appointment will be scheduled with Dr. Knight in 4 weeks. Appointment will be mailed to you.Please call [phone] (clinic number for appointments) to confirm date and time of your appointment if you do not receive your apointment in 3 weeks. documented in this encounter Medications at Time of Discharge Medication Sig Dispensed Refills Start Date End Date traMADoL (Ultram) 50 mg Take 1 tablet [...] in Packet documented as of this encounter Progress Notes Joann Hamlin RN - 10/27/2020 1:58 PM EST AVS reviewed with patient and patients significant other, both verbalized understanding. Patient meets discharge criteria at this time. VSS. Patient rating pain tolerable at time of discharge. Patient was able to void prior to discharge with a low PVR. Dressings to abdomen are CDI. Patient discharged home with significant other. Joann Hamlin RN documented in this encounter H&P Notes Dulce Knight MD - 10/27/2020 6:52 AM EST Patient Name: Alfredito Mina Patient Age: 80 y.o. Birthdate: 1940 Admit date: 10/27/2020 Attending Physician: Dulce Knight MD Alfredito Mina is referred by Dexter Pereira MD for evaluation of a recurrent left inguinalhernia. This 80 y.o. male with a history of HTN, HLD, sternotomy for mitral valve replacement, lung adenocarcinoma s/p thoracoscopic right lower lobectomy, asthma, multinodular goiter s/p total thyroidectomy complicated by an avulsion of the left recurrent laryngeal - now with hoarseness and intermittent aspir ation, prostate cancer s/p XRT, GERD presents to discuss his recurrent left inguinal hernia. He has undergone 2 prior open left inguinal hernia repairs, most recently 02/2011 and he has noticed a bulge in his left groin for the last several weeks, which has become painful and symptomatic. He denies obstructive symptoms. A recent US confirms a left fat-containing inguinal hernia. He has also undergone an open right inguinal hernia repair and open umbilical hernia repair in the past. No other abdominal operations. 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 Past Medical History: Diagnosis Date ??? Arthritis knee replacement right ??? Aspiration into lower respiratory tract 05/06/2013 ??? Cancer lung 2009 ??? Colon polyps ??? Difficulty in swallowing ??? Dry mouth ??? Dyslipidemia ??? GERD (gastroesophageal reflux disease) ??? Heart valve disease I have had surgery [facility] at [facility] for a valve repair ??? Hypertension ??? Inguinal hernia left recurrent ??? Lung cancer ??? Multinodular goiter ??? Pancreatic cyst ??? Prostate cancer s/p XRT ??? Skin cancer 07/2013 squamous cell ??? Status post radiation therapy for prostate Past Surgical History Past Surgical History: Procedure Laterality Date ??? CARDIAC VALVE REPLACEMENT ??? CREATED BY INTERFACE BRONCHOSCOPY; DX, WWO CELL WASHING (THORACIC) Procedure Date: 02/09/2010 ??? CREATED BY INTERFACE LYMPHADENECTOMY,THORACIC ,REGIONAL,INCL. MEDIASTINAL (THORACIC) / RIGHT Procedure Date: 02/09/2010 ??? CREATED BY INTERFACE NERVE BLOCK,INTERCOSTAL NERVE, MULTIPLE (THORAC) Procedure Date: 02/09/2010 ??? CREATED BY INTERFACE THORACOSCOPY,SURGICAL,W\LOBECTOMY,TOTAL OR SEGMENTAL / RIGHT Procedure Date: 02/09/2010 ??? CREATED BY INTERFACE VALVULOPLASTY,MITRAL VALVE, W\CPB; W\PROSTHETIC RING Procedure Date: 11/25/2004 ??? INGUINAL HERNIA REPAIR s/p Bilateral Inguinal hernia repairs.(Left without mesh in 1963) ??? LUNG CANCER SURGERY Partial removal of R lung ??? PRG SOMATOSENSORY TEST, ANY/ALL PER. NERVES, TRUNK OR HEAD 11/30/2011 FACIAL NERVE MONITORING, SETUP performed by FRANK MAC at [facility] OR ??? PRO COLONOSCOPY, REMV LESLing, SNARE 01/06/2013 COLONOSCOPY, POLYPECTOMY, REMOVAL LESION BY SNARE performed by Josh Jeffery MD at [facility] ENDOSCOPY ??? PRO REPAIR RECURR INGUIN KIRAN, REDUCIBL 03/10/2011 HERNIA REPAIR, INGUINAL, RECURRENT performed by NOREEN BOWIE at [facility] OR ??? PRO THYROIDECTOMY=SUBSTERNAL, TRANSCERV 11/30/2011 THYROIDECTOMY, INCL. SUBSTERNAL, CERVICAL APPROACH performed by FRANK MAC at [facility] OR ??? PRO TOTAL KNEE ARTHROPLASTY 06/19/2012 @TOTAL KNEE ARTHROPLASTY performed by ADAM CARRERO at [facility] OR ??? ROTATOR CUFF REPAIR 2013 ??? UMBILICAL HERNIA REPAIR ??? UPPER GI ENDOSCOPY, EXAM 01/29/2012 UPPER GI ENDOSCOPY performed by VICKI SON at [facility] ENDOSCOPY Right lower lobectomy Total thyroidectomy Open left inguinal hernia repair x2 Open right inguinal hernia repair Open umbilical hernia repair Social history: reports that he has never smoked. He has never used smokeless tobacco. He reports current alcohol use. He reports that he does not use drugs. Family History: Family History Family History Problem Relation Age of Onset ??? Asthma Mother ??? Heart Failure Father ??? Thyroid Disease Paternal Grandmother No current facility-administered medications on file prior to encounter. Current Outpatient Medications on File Prior to Encounter Medication Sig Dispense Refill ??? furosemide (Lasix) 40 mg Tablet Take 20-40 mg by mouth daily. ??? levothyroxine (Synthroid) 100 mcg Tablet Take 100 mcg by mouth daily. ??? potassium chloride ER (K-Dur/Klor-Con) 20 mEq Tab Sust.Rel. Particle/Crystal Take 10 mEq by mouth daily. ??? terazosin (HYTRIN) 2 mg Capsule Take 1 capsule by mouth nightly. 90 capsule 3 ??? polyethylene glycol (MIRALAX) 17 gram Powder in Packet Take 17 g by mouth daily. Allergies Allergen Reactions ??? Cyclobenzaprine Urinary retention, xerostomia ??? Lactose Other (See Comments) Sneezing GEN: NAD HEENT: trachea midline, no scleral icterus PULM: normal respiratory effort CARD: well perfused, stable ABD: soft, non tender, non distended L > R inguinal hernia Skin: no rash, no diaphoresis MSH: no gross deformity NEURO: GCS 15 PSYCH: normal mood and affect documented in this encounter Miscellaneous Notes Op Note - Dulce Knight MD - 10/27/2020 10:38 AM EST [facility] [place] Operative Note Patient Name: Alfredito Mina : [id number] MR#: [id number] Case Date: 10/27/2020 Surgeon: Surgeon(s) and Role: * Dulce Knight MD - Primary * Irene Bose MD - No qualified resident available to assist Preoperative diagnosis: BILATERAL RECURRENT INGUINAL HERNIA Postoperative diagnosis: BILATERAL RECURRENT INGUINAL HERNIA Procedure(s) (LRB): LAPAROSCOPIC HERNIA REPAIR, INITIAL INGUINAL- CHARISSE (WRVU 6.36) (Bilateral) MODIFIER MESH,BARD,3D MAX REG (N/A) Anesthesia: General Estimated Blood Loss: 1 mL Specimens removed during surgery: None Drains: * No LDAs found * Surgical Closure: Primary Closure - skin incision is completely closed without any wires, shamar, drains or other devices Disposition: awakened from anesthesia, extubated and taken to the recovery room in a stable condition, having suffered no apparent untoward event. Condition: doing well without problems (Please see the Surgical Encounter Summary for any Implant and Specimen details pertinent to this patient.) This 80 y.o. male presented with a history of left groin pain and some asymmetry on examination in the office. He was also found to have a right inguinal hernia. He was diagnosed with bilateral inguinal hernias, and he chose to have laparoscopic hernia repair. Under general anesthesia and endotracheal intubation, the patient was prepped and draped in the supine position. With infiltration with 0.25% Marcaine without epinephrine, the incision was made just below the umbilicus off to the left of midline slightly. Dissection was carried across the anterior sheath and the rectus muscle retracted laterally. An origin balloon was then inserted in through the posterior portion of the rectus into the preperitoneal space. This was insufflated and blunt dissection was therefore achieved in the preperitoneal space. The balloon was then removed and a Emil trocar placed and anchored with 0 Vicryl suture. Two 5-mm ports were also placed in the midline below the camera port. Blunt dissection was used to dissect the epigastric vessels and leave then anterior onto the posterior surface of the muscle. Blunt dissection was used to identify the direct, indirect, and femoral canals bilaterally. Left side: The cord was inspected and an indirect hernia sac was noted. This appeared to be an incarcerated sliding hernia containing colon. A tear in the sac was made and traction on the colon eventually allowedus to reduce it. The sac was closed with serial clips.This was reduced along with a cord lipoma. There was a tiny weakness in the direct space floor. There was no femoral herniation. A large 3D max mesh was then placed into position and positioned into the appropriate area to cover all 3 defects and tacked to Emmanuel's ligament. Right side: The cord was inspected and an indirect hernia sac densely adherent to mesh and was cut free. The proximal sac was then closed with endoloops and clips. was noted. This was reduced along with a cord lipoma. There was a hernia weakness in the direct space floor. There was no femoral herniation. A large 3D max mesh was then placed into position and positioned into the appropriate area to coverall 3 defects and tacked to Emmanuel's ligament. The area was then completely infiltrated with 30 cc of Marcaine without epinephrine (0.25%). The insufflation was slowly decreased and the mesh was assured to be in proper position with desufflation. The skin sites were all then closed with running subcuticular 4-0 Monocryl suture. The Emil trocar site was also closed with 0 Vicryl sutures to the fascial layer in a [id number] fashion. Steri-Strips and Band-Aids were applied. Inspection of the scrotum revealed both testes to be in position. No obvious hernia was noted on the patient coughing waking up. The patient returned to the recovery room in stable condition. Sponge and instrument counts were correct. No specimen sent to pathology Attestation: Case Date: 10/27/2020 I performed this procedure without the involvement of a resident. DULCE KNIGHT MD 10/27/2020 documented in this encounter Plan of Treatment Upcoming Encounters Date Type Specialty Care Team Description 10/11/2022 Office Visit Dermatology Virgilio Mckeon MD [facility] DR CHRISTIANO HENSON-DERMAT OLOGY [place], [place] [address] (Wo rk) 10/16/2022 Office Visit Otolaryngology Frank Buchanan MD [facility] OTOLARYNGOLOGY Sarah EPT. [place], [place] [address] (Wo rk) 11/29/2022 Appointment Hematology and Oncology 11/29/2022 Office Visit Radiation Oncology Emerald Leyva APRN [facility] RADIATION ONCCESAR GY [place], [place] [address] (Wo rk) documented as of this encounter Procedures Procedure Name Priority Date/Time Associated Comments Diagnosis MODIFIER MESH,BARD,3D 10/27/2020 8:23 AM BILATERAL REC URRENT MAX REG EST INGUINAL HERNIA LAPAROSCOPIC HERNIA 10/27/2020 8:23 AM BILATERAL RECUR RENT REPAIR, INITIAL EST INGUINAL HERNIA INGUINAL- CHARISSE (WRVU 6.36) POCT GLUCOSE Routine 10/27/2020 7:47 AM Results f or this EST procedure are i n the results section. IMPLANTABLE DEVICES 10/27/2020 12:00 Resu lts for this SCAN AM EST procedure are i n the results section. documented in this encounter Results POCT Glucose (10/27/2020 7:47 AM EST) P athologist Signature POC Glucose 87 65 - 199 [facility] mg/dL [facility] Comment: Supplemental ranges: <140 mg/dL before meals <180 mg/dL all other times of the day Specimen Anatomical Collection Method Collection Time Receive d Time (Source) Location / / Volume Laterality Blood specimen 10/27/2020 7:47 AM 020 7:47 (specimen) EST AM EST Dulce Knight MD POINT OF CARE TEST ORDERABLE S Performing Organization Address City/State/[place] [address] SCAN DOC: IMPLANTABLE DEVICES (10/27/2020 12:00 AM EST) Narrative 10/27/2020 12:00 AM EST This result has an attachment that is no t available. Ordered by an unspecified provider. Scanning Provider MEDIA MGR SCAN EXT ORDR/RSLT documented in this encounter Visit Diagnoses Not on filedocumented in this encounter Administered Medications Inactive Administered Medications - up to 3 most recent administrations Medication Order MAR Action Action Date Dose Rate Site acetaminophen (Tylenol) tablet Given 10/27/2020 11:45 AM EST 650 mg 650 mg 650 mg, Oral, EVERY 4 HOURS PRN, Starting on Sun10/27/20 at 1051, Until Sun10/27/20 at 1600, Pain, Maximum dose of acetaminophen is 4000 mg from all sources in 24 hours. When ordered for pain, acetaminophen should be given even when other ordered pain medications are indicated. , Routine BUpivacaine (pf) (Marcaine) Given 10/27/2020 10:28 AM 20 mLs 19- Surgical Site (2.5 mg/mL) 0.25% injection EST ONCE PRN, Starting on Sun10/27/20 at 0901, Until Sun10/27/20 at 1600, Intra-Operative (Intra-Procedure), Routine Given 10/27/2020 9:01 AM EST 10 mLs 19- S urgical Site fentaNYL (pf) (50 mcg/mL) multi-dose Given 10/27/2020 12:[address] 50 mcg injection 25-50 mcg 25-50 mcg, Intravenous, EVERY 5 MIN PRN, Starting on Sun10/27/20 at 1048, Until Sun10/27/20 at 1358, Pain, Give 25 mcg every 5 minutes PRN for mild to moderate pain (1-5) Give 50 mcg every 5 minutes PRN for moderate to severe pain (6-10). Hold for respiratory rate less than 10 per minute. Maximum dose 250 mcg over one hour. If ordered with hydromorphone or morphine, give hydromorphone or morphine first and use fentanyl for breakthrough pain., Day of Surgery (Day of Procedure), Routine Given 10/27/2020 12:00 PM EST 25 mcg ketorolac (Toradol) (15 mg/mL) injection 15 Given 10/27/2020 10:56 AM EST 15 mg mg 15 mg, Intravenous, ONCE, 1 dose, On Sun10/27/20 at 1115, Routine lactated ringers infusion New Bag 10/27/2020 7:57 AM EST 1,000 mLs 100 mL/hr 1,000 mL, at 100 mL/hr, Intravenous, CONTINUOUS, Starting on Sun10/27/20 at 0800, Until Sun10/27/20 at 1358, Day of Surgery (Day of Procedure) traMADoL (Ultram) tablet 50 mg Given 10/27/2020 11:10 AM EST 50 mg 50 mg, Oral, EVERY 4 HOURS PRN, Starting on Sun10/27/20 at 1051, Until Sun10/27/20 at 1600, Pain, Routine documented in this encounter Active and Recently Administered Medications Times are shown in EST. Scheduled Medication Order 10/25/2020 10/26/2020 10/27/2020 ceFAZolin (Ancef) 2 g in dextrose 5% 100 mL infusion (COMPLETED) 0830 (Given - Provider: Ernestine Del Castillo CRNA) 2 g, Intravenous, EVERY 3 HOURS, 1 dose, First dose on Sun10/27/20 at 0800, Administer over 30 Minutes, Intra-Operative (Intra-Procedure), Indication for (Active or Suspected): Prophylaxis ketorolac (Toradol) (15 mg/mL) injection 15 mg (COMPLETED) 1056 (Given - Provider: Joann Hamlin RN) 15 mg, Intravenous, ONCE, 1 dose, Sun10/27/20 at 1115, Routine Continuous Medication Order 10/25/2020 10/26/2020 10/27/2020 lactated ringers infusion (CANCELED) 0757 (New Bag - Provider: Frank Myrick II, RN)0824 (Canceled Entry - Provider: Ernestine Del Castillo CRNA)0853 (Anesthesia Volume Adjustment - Provider: Ernestine Del Castillo CRNA)0955 (Anesthesia Volume Adjustment - Provider: Ernestine Del Castillo CRNA) 1,000 mL, at 100 mL/hr, Intravenous, CON TINUOUS, Starting Sun10/27/20 at 0800, Until Sun10/27/20 at 1358, Day of Surgery (Day of Procedure) PRN Medication Order 10/25/2020 10/26/2020 10/27/2020 acetaminophen (Tylenol) tablet 650 mg 1145 (Given - Provider: Timur Rodgers RN) 650 mg, Oral, EVERY 4 HOURS PRN, Startin g Sun10/27/20 at 1051, Until Sun10/27/20 at 1600, Pain, Maximum dose of acetaminophen is 4000 mg from all sources in 24 hours. When ordered for pain, acetaminop hen should be given even when other orde red pain medications are indicated. , Routine BUpivacaine (pf) (Marcaine) (2.5 mg/mL) 0.25% injection (CANCELE D) 0901 (Given - Provider: Irene Bose MD - Comment: injected to trocar sites at start of procedure)1028 (Given - Provider: Irene Bose MD - Comment: injected to trocar sites at the end of the procedure) ONCE PRN, Starting Sun10/27/20 at 0901, Until Sun10/27/20 at 1600, Intra- Operative (Intra-Procedure), Routine fentaNYL (pf) (50 mcg/mL) multi-dose injection 25-50 mcg (CANCEL ED) 1200 (Given - Provider: Timur Rodgers RN)1214 (Given - Provider: Timur Rodgers RN) 25-50 mcg, Intravenous, EVERY 5 MIN PRN, Starting Sun10/27/20 at 1048, Until Sun10/27/20 at 1358, Pain, Give 25 mcg every 5 minutes PRN for mild to moderate pain (1-5) Give 50 mcg every 5 minutes PRN for moderate to severe pain (6-10). Hold for respiratory rate less than 10 per minute. Maximum dose 250 mcg over one hour. If ordered with hydromorphone or morphine, give hydromorphone or morphine first and use fentanyl for breakthrough pain. , Day of Surgery (Day of Procedure), Routine traMADoL (Ultram) tablet 50 mg 1 110 (Given - Provider: Joann Hamlin RN) 50 mg, Oral, EVERY 4 HOURS PRN, Starting Sun10/27/20 at 1051, Until Sun10/27/20 at 1600, Pain, Routine documented in this encounter Care Teams Automatic Dispenser Mechanic Relationship Specialty Start Date End Date Dexter Pereira MD PCP - General Internal Medicine 06/21/20 11/20/21 [address] [place] [address] documented as of this encounter
--- OUTSIDE RECORDS SUMMARY | 2022-10-09 16:12 | XMS_ITS | Encounter Summary ---
:1940 Author Organization [facility] [place] [address] Care Team Providers Name Role Phone Fabiano Celaya MD Primary Care Provider Encounter Details Date Type Department Care Team Description 03/27/2022 Telephone Otolaryngology at [facility] [place] [address] Social History Tobacco Use Types Packs/Day Years Used Date Smoking Tobacco: Never Smokeless Tobacco: Never Alcohol Use Standard Drinks/Week Comments Never 0 (1 standard drink = 0.6 oz pure alcoho l) RARE Sex Assigned at Date Recorded Not on file documented as of this encounter Miscellaneous Notes Telephone Encounter - Lisa Jarrett - 03/27/2022 10:28 AM EDT Tere, Patient is scheduled to have surgery on 05/02/2022 and the packet has been mailed to the verified address on file. Follow up appointment is as follows: No follow-up indiciated Thank you!! documented in this encounter Plan of Treatment Upcoming Encounters Date Type Specialty Care Team Description 10/11/2022 Office Visit Dermatology Virgilio Mckeon MD [facility] ER DR CHRISTIANO HENSON-DERMAT [place], [place] [address] (Wo rk) 10/16/2022 Office Visit Otolaryngology Frank Buchanan MD [facility] ER OTOLARYNGOLOGY Sarah EPT. [place], [place] [address] (Wo rk) 11/29/2022 Appointment Hematology and Oncology 11/29/2022 Office Visit Radiation Oncology Emerald Leyva APRN [facility] ER RADIATION [place], [place] [address] (Wo rk) documented as of this encounter Visit Diagnoses Not on filedocumented in this encounter Care Teams Transportation Inspector Relationship Specialty Start Date End Date Fabiano Celaya MD PCP - General Emergency Medicine 11/21/21 [address] [place] [address] documented as of this encounter
--- OUTSIDE RECORDS SUMMARY | 2022-10-09 16:12 | XMS_ITS | Encounter Summary ---
:1940 [place] [address] Care Team Providers Name Role Phone Fabiano Celaya MD Primary Care Provider Encounter Details Date Type Department Care Team Description 03/07/2022 Telephone Emergency Department Lindsay Davis, RN [facility] [place] [address] Social History Tobacco Use Types Packs/Day Years Used Date Smoking Tobacco: Never Smokeless Tobacco: Never Alcohol Use Standard Drinks/Week Comments Never 0 (1 standard drink = 0.6 oz pure alcoho l) RARE Sex Assigned at Date Recorded Not on file documented as of this encounter Miscellaneous Notes Telephone Encounter - Lindsay Owen RN - 03/07/2022 8:02 PM EDTSummary: [facility] Geriatric ED Program - Resource RN Follow-Up Visit Call ED GERIATRIC PATIENT FOLLOW-UP CALL ANY QUESTIONS REGARDING DISCHARGE? No DO YOU HAVE EVERYTHING YOU NEED UPON ARRIVAL TO HOME? Yes ARE YOU EXPERIENCING ANY UNDESIRED SYMPTOMS? No IF YOU HAD PAIN RELATED TO ED VISIT IS IT UNDER CONTROL? NA ARE YOU ABLE TO GET ALL PRESCRIPTION MEDICATIONS? NA ARE YOU TAKING MEDICATIONS ORDERED/INSTRUCTED? NA ARE FOLLOW UP APPOINTMENTS ARRANGED? Pt's friend, Stephanie Gee who is lives with M-F in [facility] helping pt get a new PCP here at [facility]. (Current PCP is in [facility] [Dr. Celaya] but pt now works down in [place] and is wanting to secure PCP at [facility]). Friend will call Walk-In clinic for help w/ suture removal in ~ 14 days if obtaining new PCP not available until later. ARE FOLLOW UP TRANSPORTATION ARANGED? Yes FOLLOW UP ACTIONS? None documented in this encounter Plan of Treatment Upcoming Encounters Date Type Specialty Care Team Description 10/11/2022 Office Visit Dermatology Virgilio Mckeon MD [facility] DR CHRISTIANO HENSON-DERMAT OLOGY [place], [place] [address] (Wo rk) 10/16/2022 Office Visit Otolaryngology Frank Buchanan MD [facility] OTOLARYNGOLOGY Sarah EPT. [place], [place] [address] (Wo rk) 11/29/2022 Appointment Hematology and Oncology 11/29/2022 Office Visit Radiation Oncology Emerald Leyva APRN [facility] ER RADIATION ONCOLO GY [place], [place] [address] (Wo rk) documented as of this encounter Visit Diagnoses Not on filedocumented in this encounter Care Teams Disciplinary Hearing Officer Relationship Specialty Start Date End Date Fabiano Celaya MD PCP - General Emergency Medicine 11/21/21 [address] [place] [address] documented as of this encounter
--- OUTSIDE RECORDS SUMMARY | 2022-10-09 16:12 | XMS_ITS | Encounter Summary ---
:1940 Author Organization [facility] [place] [address] Care Team Providers Name Role Phone Dexter Pereira MD Primary Care Provider Reason for Referral Diagnostic Test (Routine) - Closed Specialty Diagnoses / Procedures Referred By Contact Refer red To Contact Radiology Diagnoses S/P lobectomy of lung Primary adenocarcinoma of right lung Dexter Cote [facility] Rad Ct Scan Procedures CT Chest wo Contrast (Generic) [facility] [place] [address] [place] [address] Referral ID Status Reason Start Date Expiration Date Visits V isits Requested Authorized [id number] Closed Specialty 06/20/2021 11/11/2021 1 1 Service Requested Reason for Visit Diagnostic Test (Routine) - Closed Specialty Diagnoses / Procedures Referred By Contact Refer red To Contact Radiology Diagnoses S/P lobectomy of lung Primary adenocarcinoma of right lung Dexter Cote [facility] Rad Ct Scan Procedures CT Chest wo Contrast (Generic) [facility] [place] [address] [place] [address] Referral ID Status Reason Start Date Expiration Date Visits V isits Requested Authorized [id number] Closed Specialty 06/20/2021 11/11/2021 1 1 Service Requested Encounter Details Date Type Department Care Team Description 06/27/[address] [place] [facility] S/P lobectomy of lung; [facility] Dexetr Pugh MD Primary adenocarcinoma of right lung [address] [place], [place] [address] THORACIC [phone] [place] [address] Social History Tobacco Use Types Packs/Day Years Used Date Smoking Tobacco: Never Smokeless Tobacco: Never Alcohol Use Standard Drinks/Week Comments Never 0 (1 standard drink = 0.6 oz pure alcoho l) RARE Sex Assigned at Date Recorded Not on file documented as of this encounter Medications at Time of Discharge [...] in Packet documented as of this encounter Plan of Treatment Upcoming Encounters Date Type Specialty Care Team Description 10/11/2022 Office Visit Dermatology Virgilio Mckeon MD [facility] ER DR CHRISTIANO HENSON-DERMAT OLOGY [place], [place] [address] (Leroy bhatia) 10/16/2022 Office Visit Otolaryngology Frank Buchanan MD [facility] ER OTOLARYNGOLOGY Sarah EPT. [place], [place] [address] (Leroy bhatia) 11/29/2022 Appointment Hematology and Oncology 11/29/2022 Office Visit Radiation Oncology Emerald Leyva, RFID DEVELOPER [facility] ER RADIATION [place], [place] [address] (Wo rk) documented as of this encounter Procedures Procedure Name Priority Date/Time Associated Diagnosis Comme nts CT CHEST WO Routine 06/27/2021 1:40 PM S/P lobectomy of lung Results for this CONTRAST (GENERIC) EDT Primary adenocarcinoma procedure are in of right lung the results section. documented in this encounter Results CT Chest wo Contrast (Generic) (06/27/2021 1:40 PM EDT) Anatomical Region Laterality Modality Chest Computed Tomography Specimen (Source) Anatomical Collection Method Collection Time Re ceived Time Location / / Volume Laterality 06/27/2021 1:56 PM EDT Impressions 06/27/2021 3:38 PM EDT Stable lungs. No evidence of thoracic me tastasis. Thank you for letting us participate in the care of this patient. ??If you are a health care provider and have any questi ons regarding this report, please contact the number below. ??For patients who have questions please contact the health rn care transition that requested your imaging first. ? Narrative 06/27/2021 3:38 PM EDT EXAMINATION: CT CHEST WO CONTRAST (GENERIC) CLINICAL HISTORY: Non-small cell lung ca ncer, post treatment, no evidence of disease s/p right lower lobectomy for 1.1 cm inv asive adenocarcinoma in 2009. please eval for ??Surveillance of disease TECHNIQUE: 3.75 mm thick axial contiguou s sections were obtained through the chest via helical acquisition without in travenous contrast administration. Thin-section reconstructions as well as coronal and sagittal reformatted images were generated. COMPARISON: 06/21/2020 FINDINGS: Pulmonary parenchyma: Stable. Post RIGHT lower lobectomy. Postsurgical site scarring, stable No new pulmonary nodule s. Airways: No endobronchial lesions Pleura: No pleural effusions Lymph nodes: ??no adenopathy Heart, pericardium, and great vessels: N o pericardial effusion. Other mediastinal structures: No adenopa thy Lower neck: No significant findings. Upper abdomen: Stable 3.1 cm LEFT adrena l gland nodule. The RIGHT adrenal gland is normal. Increased size of RIGHT upper pole simple cyst, measuring 4.5 x 5.9 cm. Body wall soft tissues: No significant f indings. Skeletal structures: No suspicious osseo us findings Procedure Note Mane Scott MD - 06/27/2021Form atting of this note might be different from the original. EXAMINATION: CT CHEST WO CONTRAST (GENER IC) CLINICAL HISTORY: Non-small cell lung ca ncer, post treatment, no evidence of disease s/p right lower lobectomy for 1.1 cm inv asive adenocarcinoma in 2009. please eval for Surveillance of disease TECHNIQUE: 3.75 mm thick axial contiguou s sections were obtained through the chest via helical acquisition without in travenous contrast administration. Thin-section reconstructions as well as coronal and sagittal reformatted images were generated. COMPARISON: 06/21/2020 FINDINGS: Pulmonary parenchyma: Stable. Post RIGHT lower lobectomy. Postsurgical site scarring, stable No new pulmonary nodule s. Airways: No endobronchial lesions Pleura: No pleural effusions Lymph nodes: no adenopathy Heart, pericardium, and great vessels: N o pericardial effusion. Other mediastinal structures: No adenopa thy Lower neck: No significant findings. Upper abdomen: Stable 3.1 cm LEFT adrena l gland nodule. The RIGHT adrenal gland is normal. Increased size of RIGHT upper pole simple cyst, measuring 4.5 x 5.9 cm. Body wall soft tissues: No significant f indings. Skeletal structures: No suspicious osseo us findings IMPRESSION Stable lungs. No evidence of thoracic me tastasis. Thank you for letting us participate in the care of this patient. If you are a health care provider and have any questi ons regarding this report, please contact the number below. For patients w ho have questions please contact the health rn care transition that requested your imaging first. Dexter Cote MD IMG CT ORDERABLES documented in this encounter Visit Diagnoses Diagnosis S/P lobectomy of lung Other postprocedural status Primary adenocarcinoma of right lung documented in this encounter Care Teams Vascular Nurse Relationship Specialty Start Date End Date Dexter Pereira MD PCP - General Internal Medicine 06/21/20 11/20/21 [address] [place] [address] documented as of this encounter
--- OUTSIDE RECORDS SUMMARY | 2022-10-09 16:12 | XMS_ITS | Clinical Summary ---
:1940 Author Organization [place] [address] Care Team Providers Name Role Phone Fabiano Celaya MD Primary Care Provider Allergies Active Allergy Reactions Severity Noted Date Comments Codeine Other (See Comments) 03/27/2017 Patient doesn't recall what reaction is Cyclobenzaprine High 01/31/2014 Urinary rete ntion, xerostomia Lactose Other (See Comments) Low 06/01/2011 Sneezin g Medications Medication Sig Dispensed Refills Start Date End Date Status polyethylene glycol Take 17 g by 0 Active (MIRALAX) 17 gram mouth daily. Powder in Packet terazosin (HYTRIN) 2 mg Take 1 capsule 90 capsule 3 10/11/2018 Active Capsule by mouth nightly. furosemide (Lasix) 40 Take 20 mg by 0 07/31/2020 Active mg Tablet mouth daily. levothyroxine Take 100 mcg by 0 07/08/2020 Active (Synthroid) 100 mcg mouth daily. Tablet potassium chloride ER Take 10 mEq by 0 05/29/2020 Active (K-Dur/Klor-Con) 20 mEq mouth daily. Tab Sust.Rel. Particle/Crystal traMADoL (Ultram) 50 mg Take 1 tablet by 10 tablet 0 0 Active Tablet mouth every 6 hours as needed for Pain. Additional Information Patient not taking. Reported on 01/16/2022 pantoprazole sodium (PROTONIX Take by mouth. 0 Active ORAL) Lumigan 0.01 % Drops INSTILL ONE DROP INTO BOTH 0 Active EYES AT BEDTIME multivitamin (THERAGRAN) Tablet Take 1 tablet by mouth 0 Active daily. Active Problems Problem Noted Date S/P bilateral inguinal hernia repair, follow-up exam 0 11/28/2020 Splinter 10/17/2016 Bunion 10/17/2016 Primary insomnia 05/24/2015 Basal cell carcinoma 12/08/2014 History of squamous cell carcinoma 08/08/2013 Actinic keratosis 08/08/2013 Diverticulitis 10/29/2012 Preventative health care 09/18/2012 Overview: Formatting of this note is dif ferent from the original. Immunization History Administered Date(s) Administered ? ? Influenza Whole 09/13/2005, 10/03/2006, 11/12/2009, 09/12/2010 ? ? Pneumococcal Polyvalent 23 01/08/2012 ? ? Td 11/14/2005 no shingles. Got flu shot 2011 PSA/Lipids - as in problem Colonoscopy - 2009 - normal. But new div erticulitis. 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 --01/04/2010: CT chest - bronchoalveolar carcinoma. --01/13/2010: CT guided lung biopsy --01/25/2010: PET scan - negative other t garvey lesion. --02/01/2010: MRI brain --01/13/2010: atypical bronchoalveolar armando l proliferation suspicious for bronchoalveolar carcinoma. --01/2010: Pulmonary function test - mode rate obstruction. --02/2010: RLL lobectomy. invasive adenoc arcinoma with peripheral LIANET features. 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 [id number]; KRAS negative, EGFR negative --09/2010: CT scan - normal --02/2011: CT scan --09/2011: CT scan - negative annual CT's afterwards Dyslipidemia Overview: --02/2009: HDL-56, TG-68, LDL-81, TC-146. --07/2009: TC- 124, TG-89, HDL-66, LDL-12 4. --09/2009: TC 162, TG 71, LDL 81. On sta tin --09/2010: LDL 103, TG 75, HDL 72 GERD (gastroesophageal reflux disease) Overview: Barium swallow, EGD 2011 Hypertension Impaired fasting glucose S/P mitral valve repair Overview: --Echocardiogram 2008 - mild insufficien cy Multinodular goiter Overview: Lt substernal hot nodules->I-131 Rx --U/S 07/21: two nodules are benign in ap pearance 2008 --07/21: sTSH-0.12 -> 0.01 (02/28/10) with slightly high FT4 1.79 and normal T3 at 140 -I-123 scan & uptake (03/31/10) showed MN G with hot nodules in Lt lower pole/ substernal => s/p RODRIGUEZ therapy 30 mCi on 04/01/10 & 2 nd RODRIGUEZ Rx on 07/26/10 12/20/10: TSH 1.09, FT4 1.15 November 2011 - s/p thyroidectomy Osteoarthritis Overview: # Knees --X-rays on 08/16/09, 08/25/09: b/l oblit eration of the medial compartment. # DJD spine. --X-ray + MRI: mild b/l osteoarthritic f acet hypertrophy L5-S1 --mild DJD at L3-L4 and L4-L5. Prostate cancer Resolved Problems Problem Noted Date Resolved Date Acute URI 12/15/2016 11/29/2017 Cough, persistent 12/15/2016 11/29/2017 Aspiration into lower respiratory tract 05/06/2013 03/08/2016 DJD right knee s/p R TKA Dr. Quezada 06/1906/19/2012 07/26/2012 Acute constipation 05/12/2010 05/08/2019 Encounters Date Type Specialty Care Team Description 09/22/2022 Telephone Otolaryngology Erica Hernandez from Last 3 Months Immunizations Name Administration Dates Next Due Influenza PF, Split 10/12/2014, 11/10/2013 Influenza PF, Split (High Dose) 09/29/2017, 09/12/2015 Influenza Vaccine, High Dose 08/21/2022 Quadrivalent PF Influenza Vaccine, Whole 10/16/2012, 09/12/2010, 11/12/2009, 10/03/2006, 09/13/2005 Influenza, Trivalent, Adjuvanted 08/25/2019, 10/11/2018 Pneumococcal Conjugate (13 Valent) 05/24/2015 Pneumococcal Polyvalent 23 01/08/2012 Td, adult 11/14/2005 Tdap Vaccine 03/06/2022, 05/08/2014 Family History Medical History Relation Comments Heart Failure Father Asthma Mother Thyroid Disease Paternal Grandmother Relation Status Comments Brother Alive Father Maternal Grandfather Maternal Grandmother Mother Alive Paternal Grandfather Paternal Grandmother Sister 1 Alive Sister 2 Alive Sister 3 Alive Sister 4 Alive Sister 5 Alive Social History Tobacco Use Types Packs/Day Years Used Date Smoking Tobacco: Never Smokeless Tobacco: Never Alcohol Use Standard Drinks/Week Comments Never 0 (1 standard drink = 0.6 oz pure alcoho l) RARE Sex Assigned at Date Recorded Not on file Last Filed Vital Signs Vital Sign Reading Time Taken Comments Blood Pressure 154/77 05/02/2022 8:30 AM EDT Pulse 55 05/02/2022 6:12 AM EDT Temperature 36.2 ??C (97.2 ??F) 05/02/2022 8:00 AM EDT Respiratory Rate 18 05/02/2022 8:30 AM EDT Oxygen Saturation 96% 05/02/2022 8:30 AM EDT Inhaled Oxygen Concentration - - Weight 65.3 kg (144 lb) 05/25/2022 3:25 PM EDT Height 170.2 cm (5' 7) 05/25/2022 3:25 PM EDT Body Mass Index 22.55 05/25/2022 3:25 PM EDT Plan of Treatment Upcoming Encounters Date Type Specialty Care Team Description 10/11/2022 Office Visit Dermatology Virgilio Mckeon MD [facility] DR CHRISTIANO HENSON-DERMAT OLOGY [place], [place] [address] (Wo rk) 10/16/2022 Office Visit Otolaryngology Frank Buchanan MD [facility] OTOLARYNGOLOGY Sarah EPT. [place], [place] [address] (Wo rk) 11/29/2022 Appointment Hematology and Oncology 11/29/2022 Office Visit Radiation Oncology Emerald Leyva APRN [facility] RADIATION ONCOLO GY [place], [place] [address] (Wo rk) Health Maintenance Due Date Last Done Comments Covid-19 Vaccine (#1) 1940 Zoster vaccine (1 of 2) 1988 Tetanus vaccine 03/06/2032 03/06/2022, 05/08/2014, 11/14/19 06 Pneumoccocal Vaccine: 65+ Completed 05/24/2015, 01/08/2012 Tdap adult Completed 03/06/2022, 05/08/2014 Influenza (Flu) vaccine Completed 08/21/2022, 08/25/2019, 10/11/2018, Additional history exists Medical Devices Implanted Type Area Veterinary Laboratory Technician Device Shelf Model / Identifier Expiration Serial / Date Lot Mesh,Proloop,Kh,Med,1.5x1.3in ([id number]) - [id number] IMPLANTS [employer] 05/12/2015 [id number] / Implanted: Qty: 1 on 03/10/2011 at [facility] Corporat ion - / [id number] Patella,Rnd Xsml,32mm ([id number]) (Autoreq) - [id number] IMPLANTS DO NOT USE 03/19/2017 [id number] / Implanted: Qty: 1 on 06/19/2012 at [facility] Depuy Or tho / Tech - [id number] Mesh Hernia [id number] Synthetic Rectangle Pp Progrip ([id number]) (Autoreq) - [id number] IMPLANTS Right: [employer] - 06/08/2025 [id number] / Implanted: Qty: 1 on 10/27/2020 by Dulce Osborne MD at [facility] Pelvis [employer] / [id number] Prosthesis Voice 1cc Vocal Cord Syringe Gel Inj Calcium Tavarez ([id number]) - [id number] IMPLANTS Left: [employer] 10/12/2023 [id number] / Implanted: Qty: 1 on 05/02/2022 by Ramin Buchanan MD a t [facility] Vocal Cord [employer] - / [place] [place] [id number] Description: 0.9 mls injected Insurance Payer Benefit Plan / Subscriber ID Effective Phone Address T ype Group Dates MEDICARE MEDICARE PART A [id number] 2003-Prese [phone] [facility] [place] [phone] AARP SUPPLEMENT AARP SUPPLEMENT [id number] 2014-[place]se [address] [place] [address] Advance Directives Documents on File Type Date Recorded Patient Line Lead Explanati on Advance Directives and Living 10/17/2018 3:29 PM 10/27/18 Will Latest Code Status on File Code Status Date Activated Date Inactivated Comments Full Code 06/19/2012 3:31 PM 06/22/2012 3:08 PM Question Answer Comments Order Status: Initial Order Does patient have decision making Yes, Order is based on Pat ients capacity? wishes. Code Status History Code Status Date Activated Date Inactivated Comments Full Code 11/30/2011 7:27 PM 12/01/2011 4:01 PM Question Answer Comments Order Status: Initial Order Does patient have decision making Yes, Order is based on Pat ients capacity? wishes. Full Code 03/10/2011 6:20 AM 03/10/2011 1:42 PM Question Answer Comments Order Status: Initial Order Does patient have decision making Yes, Order is based on Pat ients capacity? wishes. Healthcare Agents on File Name Relationship Healthcare Agent Relationship Co mmunication Erin Coyle Child Health Care Agent [phone] ( Home) Elise De La Rosa Child [facility] Health Care Agen t Care Teams Receiver/Laborer Relationship Specialty Start Date End Date Fabiano Celaya MD PCP - General Emergency Medicine 11/21/21 [address] [place] [address]
--- OUTSIDE RECORDS SUMMARY | 2022-10-09 16:12 | XMS_ITS | Encounter Summary ---
:1940 Author Organization [facility] [place] [address] Care Team Providers Name Role Phone Fabiano Celaya MD Primary Care Provider Encounter Details Date Type Department Care Team Description 12/09/2021 Telephone Otolaryngology at [facility] [place] [address] Social History Tobacco Use Types Packs/Day Years Used Date Smoking Tobacco: Never Smokeless Tobacco: Never Alcohol Use Standard Drinks/Week Comments Never 0 (1 standard drink = 0.6 oz pure alcoho l) RARE Sex Assigned at Date Recorded Not on file documented as of this encounter Miscellaneous Notes Telephone Encounter - Kenisha Pierce - 12/09/2021 4:27 PM EST Called pt to schedule [address] Buchanan. LVM for pt to call back. documented in this encounter Plan of Treatment Upcoming Encounters Date Type Specialty Care Team Description 10/11/2022 Office Visit Dermatology Virgilio Mckeon MD [facility] ER DR CHRISTIANO HENSON-DERMAT OLY [place], [place] [address] (Wo rk) 10/16/2022 Office Visit Otolaryngology Frank Buchanan MD [facility] ER OTOLARYNGOLOGY Sarah EPT. [place], [place] [address] (Wo rk) 11/29/2022 Appointment Hematology and Oncology 11/29/2022 Office Visit Radiation Oncology Emerald Leyva APRN [facility] ER RADIATION ONCOLO GY [place], [place] [address] (Wo rk) documented as of this encounter Visit Diagnoses Not on filedocumented in this encounter Care Teams Educational Institution Curator Relationship Specialty Start Date End Date Fabiano Celaya MD PCP - General Emergency Medicine 11/21/21 [address] [place] [address] documented as of this encounter
--- OUTSIDE RECORDS SUMMARY | 2022-10-09 16:12 | XMS_ITS | Encounter Summary ---
:1940 Author Organization [facility] [place] [address] Care Team Providers Name Role Phone Fabiano Celaya MD Primary Care Provider Encounter Details Date Type Department Care Team Description 01/16/2022 Office Visit Thoracic Surgery at [place], S/P lobe ctomy of lung [facility] Dexter Pugh MD [facility] [address] [place], [place] THORACIC SURGERY [address] [place] [address] [phone] Social History Tobacco Use Types Packs/Day Years Used Date Smoking Tobacco: Never Smokeless Tobacco: Never Alcohol Use Standard Drinks/Week Comments Never 0 (1 standard drink = 0.6 oz pure alcoho l) RARE Sex Assigned at Date Recorded Not on file documented as of this encounter Last Filed Vital Signs Vital Sign Reading Time Taken Comments Blood Pressure 161/78 01/16/2022 2:59 PM EST Pulse 85 01/16/2022 2:59 PM EST Temperature 36.4 ??C (97.5 ??F) 01/16/2022 2:59 PM EST Respiratory Rate 20 01/16/2022 2:59 PM EST Oxygen Saturation 97% 01/16/2022 2:59 PM EST Inhaled Oxygen Concentration - - Weight 67.4 kg (148 lb 9.6 oz) 01/16/2022 2:59 PM EST Height 170.5 cm (5' 7.13) 01/16/2022 2:59 PM EST Body Mass Index 23.19 01/16/2022 2:59 PM EST documented in this encounter Patient Instructions Patient InstructionsSalome Schwarz RN - 01/20/2022 7:22 AM EST Thank you for visiting Dr. Cote in clinic Dr. Cote would like to see you back in clinic in 1 year with a recent CT scan of your chest without IV contrast. You will receive a letter in the mail/ receive a call to schedule this appointment. Exercise each day for 30 minutes or longer. Daily aerobic exercise for at least 30 minutes will helpimprove your endurance and improve the breathing capacity of your lungs. This means that you are breathing hard, your heart is beating fast and that you are sweating. Examples of this include walking, biking, swimming, and using a treadmill or stationary bike. Please call Thoracic surgery at with any questions or concerns. documented in this encounter Progress Notes Dexter Cote MD - 01/16/2022 3:00 PM EST Thoracic surgery follow-up visit Chief complaint: Surveillance following lung cancer resection History of present illness: Mr. Mina is an 81-year-old man who underwent thoracoscopic right lower lobectomy in 2009 for adenocarcinoma of the lung. I saw him in June 2021 for his annual surveillance chest CT. 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 He is being evaluated by the otorhinolaryngology team forpossible medialization of the vocal cord, and in anticipation of a possible procedure he requested evaluation of his lung health. For this reason his [address] was performed earlier than expected, and he comes in today to discuss the findings. He continues to complain of a hoarse voice and microaspiration of solid foods when eating, but has no new dyspnea, no subjective adenopathy and no neurologic complaints. Current Outpatient Medications on File Prior to Visit Medication Sig Dispense Refill ??? Lumigan 0.01 % Drops INSTILL ONE DROP INTO BOTH EYES AT BEDTIME ??? pantoprazole sodium (PROTONIX ORAL) Take by mouth. ??? furosemide (Lasix) 40 mg Tablet Take 20-40 mg by mouth daily. ??? levothyroxine (Synthroid) 100 mcg Tablet Take 100 mcg by mouth daily. ??? potassium chloride ER (K-Dur/Klor-Con) 20 mEq Tab Sust.Rel. Particle/Crystal Take 10 mEq by mouth daily. ??? polyethylene glycol (MIRALAX) 17 gram Powder in Packet Take 17 g by mouth daily. ??? traMADoL (Ultram) 50 mg Tablet Take 1 tablet by mouth every 6 hours as needed for Pain. (Patientnot taking: No sig reported) 10 tablet 0 ??? terazosin (HYTRIN) 2 mg Capsule Take 1 capsule by mouth nightly. 90 capsule 3 No current facility-administered medications on file prior to visit. BP 161/78 (BP Location (NBP): Left arm, Patient Position: Sitting) Pulse 85 Temp 36.4 ??C (97.5 ??F) (Temporal) Resp 20 Ht 170.5 cm (5' 7.13) Wt 67.4 kg (148 lb 9.6 oz) SpO2 97% BMI 23.19 kg/m?? Physical exam: He appears well. His voice is indeed hoarse. He has no neurologic deficits and no palpable adenopathy. His lungs are clear. Imaging: I reviewed with the patient his chest CT dated January 11. This demonstrates no convincing findings of new or recurrent disease in the chest. Assessment: 81-year-old man 12 years removed from a right lower lobectomy for an adenocarcinoma of the lung being followed with serial imaging. On this, his annual surveillance chest CT 03/01/2022, no evidence of recurrent disease is present. There is no pulmonary contraindication to proceeding with medialization of the vocal cords if indicated. We will continue standard surveillance. Plan: Return to clinic in 1 year for noncontrast chest CT DEXTER COTE MD documented in this encounter Plan of Treatment Upcoming Encounters Date Type Specialty Care Team Description 10/11/2022 Office Visit Dermatology Virgilio Mckeon MD [facility] ER DR CHRISTIANO HENSON-DERMAT [place], [place] [address] (Wo rk) 10/16/2022 Office Visit Otolaryngology Frank Buchanan MD [facility] OTOLARYNGOLOGY Sarah [address]PT[address] [place], [place] [address] (Wo rk) 11/29/2022 Appointment Hematology and Oncology 11/29/2022 Office Visit Radiation Oncology Emerald Leyva APRN [facility] RADIATION ONCOLO GY [place], [place] [address] (Wo rk) documented as of this encounter Visit Diagnoses Diagnosis S/P lobectomy of lung Other postprocedural status documented in this encounter Care Teams Residence Hall Director Relationship Specialty Start Date End Date Fabiano Celaya MD PCP - General Emergency Medicine 11/21/21 [address] [place] [address] documented as of this encounter
--- OUTSIDE RECORDS SUMMARY | 2022-10-09 16:12 | XMS_ITS | Encounter Summary ---
:1940 Author Organization [facility] [place] [address] Care Team Providers Name Role Phone Dexter Pereira MD Primary Care Provider Encounter Details Date Type Department Care Team Description 10/29/2020 Telephone General Surgery at [facility] Antoinette Sigala, [place] [address] Social History Tobacco Use Types Packs/Day Years Used Date Smoking Tobacco: Never Smokeless Tobacco: Never Alcohol Use Standard Drinks/Week Comments Never 0 (1 standard drink = 0.6 oz pure alcoho l) RARE Sex Assigned at Date Recorded Not on file documented as of this encounter Miscellaneous Notes Telephone Encounter - Antoinette Sigala, RN - 10/29/2020 2:16 PM EST I received a call from Alfredito and his friend noting Alfredito is constipated. Patient Name: Alfredito Mina : [id number] MR#: [id number] Case Date: 10/27/2020 Surgeon(s) and Role:Dulce Osborne MD - Primary Irene Bose MD - No qualified resident available to assist Preoperative diagnosis: BILATERAL RECURRENT INGUINAL HERNIA Postoperative diagnosis: BILATERAL RECURRENT INGUINAL HERNIA Procedure(s) (LRB):LAPAROSCOPIC HERNIA REPAIR, INITIAL INGUINAL- CHARISSE (WRVU 6.36) (Bilateral) MODIFIER MESH,BARD,3D MAX REG (N/A) He has not moved his bowels for 3 days and is feeling uncomfortable, he notes lower abdominal discomfort like he needs to move his bowels. He is drinking 7 large glasses of water a day and has been taking a small dose of Miralax twice daily. He has not been a full dose of Miralax ( didn't realize a dose was the full cap). He knows he can add in pericolace- senna kott,or milk of magnesia if increasing the Miralax to a full dose twice daily does not work. I He has been walking around the house, will try drinking hot fluids, taking a hot shower and adding astool softener to his Miralax or will try a stronger laxative. He has the number to call and speak to the doctor specialty person for any worsening in symptoms or changes. documented in this encounter Plan of Treatment Upcoming Encounters Date Type Specialty Care Team Description 10/11/2022 Office Visit Dermatology Virgilio Mckeon MD [facility] DR CHRISTIANO HENSON-DERMAT [place]LOGY [place], [place] [address] (Wo rk) 10/16/2022 Office Visit Otolaryngology Frank Buchanan MD [facility] OTOLARYNGOLOGY Sarah EPT. [place], [place] [address] (Wo rk) 11/29/2022 Appointment Hematology and Oncology 11/29/2022 Office Visit Radiation Oncology Emerald Leyva APRN [facility] ER RADIATION ONCCESAR GY [place], [place] [address] (Wo rk) documented as of this encounter Visit Diagnoses Not on filedocumented in this encounter Care Teams Basin Tender Relationship Specialty Start Date End Date Dexter Pereira MD PCP - General Internal Medicine 06/21/20 11/20/21 [address] [place] [address] documented as of this encounter
--- OUTSIDE RECORDS SUMMARY | 2022-10-09 16:12 | XMS_ITS | Encounter Summary ---
:1940 [place] [address] Care Team Providers Name Role Phone Fabiano Celaya MD Primary Care Provider Encounter Details Date Type Department Care Team Description 05/02/2022 Hospital Encounter Same Day Program at [facility] cord paralysis [facility] Ramin Beaulieu MD [facility] [address] DR Pereira OTOLARYNGOLOGY [place], [place] DEPT. [address] [place], [place] [phone] [facility] Social History Tobacco Use Types Packs/Day Years [...] documented in this encounter Discharge Instructions Patient InstructionsAlSona maciel MD - 05/02/2022 8:28 AM EDT Instructions [...] -You can reach the ENT clinic at [phone] for appointment questions. -The ENT triage nurse is available at [phone] -For urgent issues during evenings (5 PM - 7 AM) and weekends the ENT resident cotton candy maker can be reached through the main hospital clinching machine operator at [phone] Follow Up: You will need to follow [...] 1:00 PM Bobby Santos PA [place] at [facility] Arrive at: [place] [place] [facility] [phone] documented in this encounter Medications at Time [...] scheduled operation. Sona Joyce MD, PGY3, Pager [phone] 05/02/22 7:07 AM ENT Team Pager: [phone] documented in this encounter Miscellaneous Notes Op Note - Ramin Buchanan MD - 05/02/2022 7:42 AM EDT [facility] Operative Report Preop diagnosis: Personal history [...] 10/11/2022 Office Visit Dermatology Virgilio Mckeon MD [facility] DR CHRISTIANO HENSON-DERMAT OLOGY [place], [place] [address] (Wo rk) 10/16/2022 Office Visit Otolaryngology Frank Buchanan MD [facility] OTOLARYNGOLOGY Sarah EPT. [place], [place] [address] (Wo rk) 11/29/2022 Appointment Hematology and Oncology 11/29/2022 Office Visit Radiation Oncology Emerald Leyva APRN [facility] RADIATION ONCCESAR GY [place], [place] [address] (Wo rk) documented as of [...] 1,000 mg, Oral, ONCE, 1 dose, On 05/02/22 at 0630, Administer with SIP of H2O only., Day of Surgery (Day of Procedure), Routine documented in this encounter Active and Recently Administered Medications Times are shown in EDT. Scheduled Medication Order 04/30/2022 05/01/2022 05/02/2022 acetaminophen (Tylenol) tablet 1,000 mg (COMPLETED) 0628 (Given - Provider: Anais Michele RN) 1,000 mg, Oral, ONCE, 1 dose, On Tue 04/13 12/03 at 0630, Administer with SIP of H2O only., Day of Surgery (Day of Procedure), Routine documented in this encounter Care Teams Rail Loader Relationship Specialty Start Date End Date Fabiano Celaya MD PCP - General Emergency Medicine 11/21/21 [address] [place] [address] documented as of this encounter
--- OUTSIDE RECORDS SUMMARY | 2022-10-09 16:12 | XMS_ITS | Encounter Summary ---
:1940 Author Organization [facility] [place] [address] Care Team Providers Name Role Phone Dexter Pereira MD Primary Care Provider Encounter Details Date Type Department Care Team Description 10/27/2020 [facility] [place] [address] [place] [address] [phone] Social History Tobacco Use Types Packs/Day Years Used Date Smoking Tobacco: Never Smokeless Tobacco: Never Alcohol Use Standard Drinks/Week Comments Never 0 (1 standard drink = 0.6 oz pure alcoho l) RARE Sex Assigned at Date Recorded Not on file documented as of this encounter Last Filed Vital Signs Vital Sign Reading Time Taken Comments Blood Pressure 140/75 10/27/2020 1:15 PM EST Pulse 64 10/27/2020 7:39 AM EST Temperature 36 ??C (96.8 ??F) 10/27/2020 10:47 AM EST Respiratory Rate 16 10/27/2020 11:30 AM EST Oxygen Saturation 97% 10/27/2020 1:15 PM EST Inhaled Oxygen Concentration - - [...] 6-8 hours after your surgery, please call [phone] before 5 PM weekdays and [phone] after 5 PM and weekends to discuss [...] If you take this medication, also take [id number] mg twice daily (this is over the [...] 101.3 F. The number for questions is [phone] before 5 PM weekdays and [phone] after 5 PM and weekends. Follow-up: Follow-up appointment will be scheduled with Dr. Knight in 4 weeks. Appointment will be mailed to you.Please call [phone] (clinic number for appointments) to confirm date [...] Patient discharged home with significant other. Joann Massa, RN documented in this encounter H&P Notes [...] abdominal operations. 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 Past Medical History: Diagnosis Date ??? Arthritis knee replacement right ??? Aspiration into lower respiratory tract 05/06/2013 ??? Cancer lung 2009 ??? Colon polyps ??? Difficulty in swallowing ??? Dry mouth ??? Dyslipidemia ??? GERD (gastroesophageal reflux disease) ??? Heart valve disease I have had surgery here at [facility] for a valve repair ??? Hypertension ??? Inguinal hernia left recurrent ??? Lung cancer ??? Multinodular goiter ??? Pancreatic cyst ??? Prostate cancer s/p XRT ??? Skin cancer 07/2013 squamous cell ??? Status post radiation therapy for prostate Past Surgical History Past Surgical History: Procedure Laterality Date ??? CARDIAC VALVE REPLACEMENT ??? CREATED BY INTERFACE BRONCHOSCOPY; SHERI, ERMAO CELL WASHING (THORACIC) Procedure Date: 02/09/2010 ??? [...] MONITORING, SETUP performed by FRANK MAC at [facility] MAIN OR ??? PRO COLONOSCOPY, REMV LESN, SNARE 01/06/2013 COLONOSCOPY, POLYPECTOMY, REMOVAL LESION BY SNARE performed by Josh eJffery MD at [facility] ENDOSCOPY ??? PRO REPAIR RECURR INGUIN KIRAN, REDUCIBL 03/10/2011 HERNIA REPAIR, INGUINAL, RECURRENT performed by NOREEN BOWIE at [facility] OR ??? PRO THYROIDECTOMY=SUBSTERNAL, TRANSCERV 11/30/2011 THYROIDECTOMY, INCL. SUBSTERNAL, CERVICAL APPROACH performed by FRANK MAC at [facility] OR ??? PRO TOTAL KNEE ARTHROPLASTY 06/19/2012 @TOTAL KNEE ARTHROPLASTY performed by ADAM CARRERO at [facility] OR ??? ROTATOR CUFF REPAIR 2013 ??? UMBILICAL HERNIA REPAIR ??? UPPER GI ENDOSCOPY, EXAM 01/29/2012 UPPER GI ENDOSCOPY performed by VICKI SON at [facility] ENDOSCOPY Right lower lobectomy Total thyroidectomy [...] Knight MD - 10/27/2020 10:38 AM EST [facility] Operative Note Patient Name: Alfredito Mina : [id number] MR#: [id number] Case Date: 10/27/2020 Surgeon: Surgeon(s) and Role: * Dulce Knight MD - Primary * Irene Bose MD - No qualified resident available to assist Preoperative diagnosis: BILATERAL RECURRENT INGUINAL HERNIA Postoperative diagnosis: BILATERAL RECURRENT INGUINAL HERNIA Procedure(s) (LRB): LAPAROSCOPIC HERNIA REPAIR, INITIAL INGUINAL- CHARSISE (WRVU 6.36) (Bilateral) MODIFIER MESH,BARD,3D MAX REG [...] sutures to the fascial layer in a [id number] fashion. Steri-Strips and Band-Aids were applied. Inspection [...] [facility] DR CHRISTIANO HENSON-DERMAT OLOGY [place], [place] [address] (Wo rk) 10/16/2022 Office Visit Otolaryngology Frank Buchanan MD [facility] OTOLARYNGOLOGY Sarah EPT. [place], [place] [address] (Wo rk) 11/29/2022 Appointment Hematology and Oncology 11/29/2022 Office Visit Radiation Oncology Emerald Leyva APRN [facility] RADIATION ONCCESAR GY [place], [place] [address] (Wo rk) documented as of [...] Signature POC Glucose 87 65 - 199 [facility] Comment: Supplemental ranges: <140 mg/dL before meals <180 mg/dL all other times of the day Specimen Anatomical Collection Method Collection Time Receive d Time (Source) Location / / Volume Laterality Blood specimen 10/27/2020 7:47 AM 020 7:47 (specimen) EST AM EST Dulce Knight MD POINT OF CARE TEST ORDERABLE S Performing Organization Address City/State/[place] [address] SCAN DOC: IMPLANTABLE DEVICES [...] ordered pain medications are indicated. , Routine fentaNYL (pf) (50 mcg/mL) multi-dose Given 10/27/2020 [...] HOURS PRN, Starting Sun10/27/20 at 1051, Until 12/16/20 at 1600, Pain, Routine documented in this encounter Care Teams Stripper And Opaquer Apprentice Relationship Specialty Start Date End Date Dexter Pereira MD PCP - General Internal Medicine 06/21/20 11/20/21 [address] [place] [address] documented as of this encounter
--- OUTSIDE RECORDS SUMMARY | 2022-10-09 16:12 | XMS_ITS ---
:1940 Author Organization [facility] [place] [address] Care Team Providers Name Role Phone Fabiano Celaya MD Primary Care Provider Active Problems Problem Noted Date S/P bilateral [...] features. 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 Prostate cancer Current Oncology Plans No current plan information found. Past Plans No past plan information found. Radiation Treatments No radiation treatments are documented for this patient in [facility]. Treatments may have been administered in another system. Lifetime Dose Tracking Chemical Lifetime Dose Automatic Entry Manual Entry DLP (Dose Length Product) 305 mGy-cm 305 mGy-cm 0 mGy- cm CTDI (CT Dose Index) Min 8.71 mGy 8.71 mGy 0 mGy CTDI (CT Dose Index) Max 8.71 mGy 8.71 mGy 0 mGy Treatment Summaries Prostate cancer Cancer Treatment Summary Provided by Becka Dean on 04/26/17 General Information Patient name Alfredito Mina (home) [phone] (work) Date of 1940 Support contact Erinliz Coyle--daughter Care Team Medical Oncologist N/A Surgeon/urologist Dr Giorgio Mixon Radiation Oncologist Dr Giorgio Franklin Primary Care Physician ZEE SANTANA Treatment Summary Chemotherapy and Supportive Care Treatment History Prostate Cancer Notes 09/29/2013 Date of Presentation 12/12/2005 Age at Presentation 66 years old PSA at Presentation 5.1 Presence of Symptoms at Presentation BPH Ethnicity White Result of ALBERTA normal Date of TRUS and Biopsy 09/19/2006 Volume in cc 56 cc --enlarged Sofy grade/score a+b=c 4+3=7 Total Cores 12 cores Positive cores 5 positive cores Bone Scan at Presentation -negative Date of Bone Scan 12/06/2006 Prostate confined +yes OLGA--extracapsular extension -negative SV--seminal vesicle extension -negative Regular Nodes -negative Distant Mets -negative Date of MRI 11/23/2006 Urinary Continence at Presentation normal Primary Therapy EBRT--external beam radiation EBRT Date Began 02/11/2007 ERBT Total Dose (Gy) 79.2 Gy Treatment Fractions 44 fractions Elapsed Date 04/12/2007 Concurrent ADT -negative Histologic Type Adenocarcinoma Post Primary Therapy - Sukumar Date 04/06/2016 Post Primary Therapy - Sukumar PSA 0.20 Survivorship care provider contacts MECHANIC SENIOR: Becka Dean Resolved Problems Problem Noted Date Resolved Date Acute URI 12/15/2016 11/29/2017 Cough, persistent 12/15/2016 11/29/2017 Aspiration into lower respiratory tract 05/06/2013 03/08/2016 DJD right knee s/p R TKA Dr. Quezada 06/1906/19/2012 07/26/2012 Acute constipation 05/12/2010 05/08/2019
--- OUTSIDE RECORDS SUMMARY | 2022-10-09 16:12 | XMS_ITS | Encounter Summary ---
:1940 Author Organization [facility] [place] [address] Care Team Providers Name Role Phone Fabiano Celaya MD Primary Care Provider Encounter Details Date Type Department Care Team Description 11/21/2021 Hospital Encounter Hematology and [place]cology [place] [address] Social History Tobacco Use Types Packs/Day [...] Office Visit Dermatology Virgilio Mckeon MD [facility] ER DR CHRISTIANO HENSON-DERMAT OLOGY [place], [place] [address] (Wo rk) 10/16/2022 Office Visit Otolaryngology Frank Buchanan MD [facility] ER OTOLARYNGOLOGY Sarah EPT. [place], [place] [address] (Wo rk) 11/29/2022 Appointment Hematology and Oncology 11/29/2022 Office Visit Radiation Oncology Emerald Leyva APRN [facility] ER RADIATION ONCOLO GY [place], [place] [address] (Wo rk) Scheduled Orders Name Type Priority Associated Diagnoses Order S chedule Testosterone, total Lab Routine Prostate cancer 1 Occ urrences starting 11/21/2021 unti l 11/21/2021 PSA (Ultrasensitive), Lab Routine Prostate cancer 1 O ccurrences starting total and free 11/21/2021 un til 11/21/2021 documented as of this encounter Procedures Procedure Name Priority Date/Time Associated Comments Diagnosis HC TESTOSTERONE, Routine 11/21/2021 1:13 PM Prostate cancer Re sults for this SERUM EST procedure are i n the results section. HC PROSTATE SPECIFIC Routine 11/21/2021 1:13 PM Prostate cance r Results for this ANTIGEN EST procedure are i n the results section. HC VENIPUNCTURE Routine 11/21/2021 1:13 PM Prostate cancer Res ults for this EST procedure are i n the results section. documented in this encounter Results PSA (Ultrasensitive) (11/21/2021 1:13 PM EST) P athologist Signature PSA Total 0.32 0.00 - ARCELIA PIEDAD (Ultrasensitiv 4.00 ng/mL [facility] Comment: PLEASE NOTE: The above reference interva l is intended for healthy males with an intact prostate. Values within this refe rence interval may indicate recurrence in men who have undergone radical prosta tectomy. Specimen Anatomical Collection Method Collection Time Receive d Time (Source) Location / / Volume Laterality Blood 11/21/2021 1:13 PM 2 1:46 EST PM EST Resulting Agency Comment Spec In Lab Emerald Pugh Autumn WAISTBAND SETTER CHEMISTRY ORDERABLES Performing Organization Address City/State/ZIP Code Phon [place] [address] Testosterone, total (11/21/2021 1:13 PM EST) athologist Signature Testo Total 6.66 1.93 - 7.40 ARCELIA HERBERT ng/mL [facility] Comment: Pediatric Reference Ranges: ? Males (7 - 18 years) ?Females (8 - 18 years) Randall Stage ?ng/m l ? ng/ml ? 1 ? <0.0 3 ? <0.03 to 0.06 ? 2 ? <0.0 3 to 4.32 ? <0.03 to 0.10 ? 3 ?0. 65 to 7.78 ? <0.03 to 0.24 ? 4 ?1. 80 to 7.63 ? <0.03 to 0.27 ? 5 ?1. 88 to 8.82 ?0.05 to 0.38 Stated reference ranges derived from rev iew of Lore Christie Testosterone II 07/2016, v6.0 Specimen Anatomical Collection Method Collection Time Receive d Time (Source) Location / / Volume Laterality Blood 11/21/2021 1:13 PM 1:47 EST PM EST Resulting Agency Comment Spec In Lab Emerald Leyva WAISTBAND SETTER CHEMISTRY ORDERABLES Performing Organization Address City/State/[place] [address] (ABNORMAL) Comprehensive metabolic panel (non-fasting) (11/21/2021 1:13 PM EST) P athologist Signature Glucose Lvl 84 65 - 199 [facility] mg/dL [facility] Comment: Diabetes: >=200 mg/dL plus symp toms BUN 17 10 - 20 mg/dL [facility] Creatinine 1.26 0.80 - 1.50 mg/dL [facility] Sodium 138 135 - 145 mmol/L [facility] Potassium 4.4 3.5 - 5.0 mmol/L [facility] Comment: Please note: ??Patients with WBC >100,00 0 may have falsely elevated Potassium levels. ??For accurate Potassium quantif ication in these patients send serum separator tube (gold top) for subsequent determinations. ??Contact the Clinical Chemistry Laboratory if there are any qu estions. Chloride 102 98 - 107 mmol/L [facility] CO2 28 22 - 31 mmol/L [facility] Anion Gap 8 5 - 15 mmol/L [facility] Calcium 9.2 8.5 - 10.5 mg/dL [facility] Total Protein 6.9 6.1 - 8.0 g/dL [facility] Albumin 4.2 3.2 - 5.2 g/dL [facility] AST 19 0 - 39 unit/L [facility] ALT 15 0 - 55 unit/L [facility] Alk Phos 74 40 - 130 unit/L [facility] Total Bilirubin 0.5 0.2 - 1.3 mg/dL [facility] Estimated GFR 52 (L) >=60 mL/min/1.73 m?? [facility] Comment: This patient? s estimated glomerular filtration rate (eGFR) is between 52 mL/min/1.73 m2 (patients with less muscl e mass per kg body weight) and 61 mL/min/1.73 m2 (patients with more muscl e mass per kg body weight) as determined by the CKD-EPI equation. Asse ssment of eGFR is not appropriate when creatinine concentrations are rapidly ch anging. For clinical decisions where creatinine clearance will affect therapy , a 24-hour urine creatinine clearance may be advised. Assignment of CKD stage 1 - 5 for patien ts with an eGFR near the transition point between stages may be based on cli nical assessment of muscle mass and symptoms in addition to eGFR. Specimen Anatomical Collection Method Collection Time Receive d Time (Source) Location / / Volume Laterality Blood 11/21/2021 1:13 PM 2 1:46 EST PM EST Resulting Agency Comment Spec In Lab Emerald M Autumn WAISTBAND SETTER CHEMISTRY ORDERABLES Performing Organization Address City/State/[place] [address] documented in this encounter Visit Diagnoses Diagnosis Prostate cancer Malignant neoplasm of prostate documented in this encounter Care Teams Visual Effects Artist Relationship Specialty Start Date End Date Fabiano Celaya MD PCP - General Emergency Medicine 11/21/21 [address] [place] [address] documented as of this encounter
--- OUTSIDE RECORDS SUMMARY | 2022-10-09 16:12 | XMS_ITS | Encounter Summary ---
:1940 Author Organization [facility] [place] [address] Care Team Providers Name Role Phone Fabiano Celaya MD Primary Care Provider Reason for Visit Consultation (Routine) - Closed Specialty Diagnoses / Procedures Referred By Contact Refer red To Contact Otolaryngology Diagnoses Vocal cord paralysis Dexter Cote [facility] Otolaryngology bina Pugh MD [facility] [place] [address] [place] [address] Referral ID Status Reason Start Date Expiration Date Visits V isits Requested Authorized [id number] Closed Consult, 06/27/2021 06/27/2022 1 1 Test & Treat Encounter Details Date Type Department Care Team Description 12/08/2021 Office Visit Otolaryngology at [facility] Ramin Vigil Vocal cord paralysis; [facility] Sarah Beaulieu MD LPRD (laryngopharyngeal reflux [place] [address] [facility] [phone] [facility] OTOL[facility] DEPT. [place], [place] [address] Social History Tobacco Use Types Packs/Day Years Used Date Smoking Tobacco: Never Smokeless Tobacco: Never Alcohol Use Standard Drinks/Week Comments Never 0 (1 standard drink = 0.6 oz pure alcoho l) RARE Sex Assigned at Date Recorded Not on file documented as of this encounter Last Filed Vital Signs Vital Sign Reading Time Taken Comments Blood Pressure 151/82 12/08/2021 8:42 AM EST Pulse 78 12/08/2021 8:42 AM EST Temperature 36.4 ??C (97.6 ??F) 12/08/2021 8:42 AM EST Respiratory Rate - - Oxygen Saturation 98% 12/08/2021 8:42 AM EST Inhaled Oxygen Concentration - - Weight 66.8 kg (147 lb 3.2 oz) 12/08/2021 8:42 AM EST Height 170.2 cm (5' 7) 12/08/2021 8:42 AM EST Body Mass Index 23.05 12/08/2021 8:42 AM EST documented in this encounter Progress Notes Ramin Vigil MD - 12/08/2021 9:00 AM EST [facility] [place] [facility] NEW PATIENT CONSULTATION I was asked to see Alfredito Mina in consultation by Dexter Cote for vocal cord paralysis History was obtained through review of the relevant records, discussion with referring physician and/or patient interview. This is a 81 y.o. male who has a history of LEFT vocal cord paralysis after thyroidectomy. He was seen by me several years ago and vocal cord injection had been offered. At the time, he did not feel that he needed this intervention. He was having some coughing with swallowing and we had advised head turn to the left with swallowing. He re-presents now with similar complaints of coughing with eating/drinking. This is fairly constant. He is not doing any head turning. Has not lost weight and has not had any issues with pneumonia, productive cough or chronic fever. He was recently (1 month) started onprotonix for GERD but does not feel that this has changed his cough. PROBLEM LIST Patient Active Problem List Diagnosis Code ??? Dyslipidemia E78.5 ??? GERD (gastroesophageal reflux disease) K21.9 ??? Hypertension I10 ??? Impaired fasting glucose R73.01 ??? Lung cancer C34.90 ??? S/P mitral valve repair Z98.890 ??? Multinodular goiter E04.2 ??? Osteoarthritis M19.90 ??? Pancreatic cyst K86.2 ??? Prostate cancer C61 ??? Inguinal hernia recurrent unilateral K40.91 ??? Post-nasal drip R09.82 ??? 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 Anxiety F41.9 ??? 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 Dysphagia, unspecified(787.20) R13.10 ??? Vocal cord paralysis J38.00 ??? Preventative health care Z00.00 ??? Diverticulitis K57.92 ??? History of squamous cell carcinoma Z85.89 ??? Actinic keratosis L57.0 ??? Basal cell carcinoma C44.91 ??? Primary insomnia F51.01 ??? Splinter T14.8XXA ??? Bunion M21.619 ??? S/P bilateral inguinal hernia repair, follow-up exam Z09 PAST MEDICAL HISTORY Past Medical History: Diagnosis Date ??? Arthritis knee replacement right ??? Aspiration into lower respiratory tract 05/06/2013 ??? Cancer lung 2009 ??? Colon polyps ??? Difficulty in swallowing ??? Dry mouth ??? Dyslipidemia ??? GERD (gastroesophageal reflux disease) ??? Heart valve disease I have had surgery here at [facility] for a valve repair ??? Hypertension ??? Inguinal hernia left recurrent ??? Lung cancer ??? Multinodular goiter ??? Pancreatic cyst ??? Prostate cancer s/p XRT ??? Skin cancer 07/2013 squamous cell ??? Status post radiation therapy for prostate SOCIAL HISTORY Social History Tobacco Use ??? Smoking status: Never Smoker ??? Smokeless tobacco: Never Used Substance Use Topics ??? Alcohol use: Never Comment: RARE MEDICATIONS Current Outpatient Medications on File Prior to Visit Medication Sig Dispense Refill ??? pantoprazole sodium (PROTONIX ORAL) Take by [...] Take 17 g by mouth daily. ??? [DISCONTINUED] cephALEXin (KEFLEX) 500 mg Tablet Take 1 tablet by mouth 4 times daily for 5 days. (Patient not taking: Reported on 12/08/2021) 20 tablet 0 ??? traMADoL (Ultram) 50 mg Tablet Take 1 tablet by mouth every 6 hours as needed for Pain. (Patientnot taking: Reported on 12/05/2021) 10 tablet 0 No current facility-administered medications on file prior to visit. ALLERGIES Allergies Allergen Reactions ??? Cyclobenzaprine Urinary retention, xerostomia ??? Codeine ??? Lactose Other (See Comments) Sneezing ROS Pertinent positive findings discussed above. No other findings on review of constitutional visual, cardiovascular, respiratory, gastrointestinal, genitourinary, musculoskeletal, dermatologic, neurological, psychiatric, endocrine, hematologic or immunologic systems. PHYSICAL EXAMINATION Vitals: Blood pressure 151/82, pulse 78, temperature 36.4 ??C (97.6 ??F), temperature source Oral, height 170.2 cm (5' 7), weight 66.8 kg (147 lb 3.2 oz), SpO2 98 %. General: No acute distress Face: Normocephalic and atraumatic Eyes: Extraocular movement is full and intact. No dysconjugate gaze. No evidence of nystagmus. Periocular structures and conjunctiva healthy without lesions. Ears: Normal external exam. Nose: Normal external exam. Mouth: Lips and gingiva pink, moist, without lesions. Dentition in poor repair. Tongue and floor of mouth soft without lesions or masses. Hard palate without lesions. Pharynx: Normal exam of the tonsils, tonsillar fossa, soft palate, lateral pharyngeal wall, and posterior pharynx. Salivary: Normal exam of the parotid and submandibular glands. Neck: Soft supple without significant lymphadenopathy. Thyroid gland without masses or asymmetry. Trachea midline without deviation. Resp: Breathing comfortably without stridor or retractions. Normal respirations. Voice is hoarse. CV: Normal carotid pulses. MSK: Normal neck range of motion, no trismus. Skin: Skin survey of the head and neck is without concerning lesion. Neurologic: Cranial nerves II-XII intact and symmetric. AxOx3, responds appropriately to questions. Psych: Normal mood and affect. PROCEDURES Procedure Flexible Fiberoptic Laryngoscopy Indication Hoarseness, vocal cord paralysis Description Informed verbal consent obtained and time out performed. A flexible laryngoscope was used to evaluate bilateral nasal cavity, nasopharynx, oropharynx, hypopharynx and larynx. The examination was recorded on the [employer] Unit and uploaded to the [employer]. Findings Nasal cavity normal Nasopharynx normal Oropharynx normal Larynx LEFT vocal cord paralysis with good compensation from the right. Max phonation time of 5 seconds Hypopharynx normal REVIEW OF IMAGES/STUDIES None ASSESSMENT/RECOMMENDATIONS Left vocal cord paralysis GERD We again discussed injection either in the OR or office. He was a bit intolerant of the scope exam so OR may be a better option. We also discussed head turn to the left. He just started his protonix and it is possible that his cough and phlegm may improve with increased duration of use. This seems to be the most bothersome symptom. As such, I recommended that he continue protonix, work on head turn to the left and then see me back in 3 months for re-evaluation. If symptoms are persistent, we can consider an injection at that time. RTC 3 months I appreciate the opportunity to be involved in Mr. Mnia's care. RAMIN VIGIL MD 12/08/2021 documented in this encounter Plan of Treatment Upcoming Encounters Date Type Specialty Care Team Description 10/11/2022 Office Visit Dermatology Virgilio Mckeon MD [facility] DR CHRISTIANO HENSON-DERMAT OLOGY [place], [place] [address] (Wo sriram) 10/16/2022 Office Visit Otolaryngology Frank Vigil MD [facility] OTOLARYNGOLOGY Sarah EPT. [place], [place] [address] (Leroy bhatia) 11/29/2022 Appointment Hematology and Oncology 11/29/2022 Office Visit Radiation Oncology Emerald Leyva APRN [facility] RADIATION ONCCESAR [place], [place] [address] (Wo rk) documented as of this encounter Visit Diagnoses Diagnosis Vocal cord paralysis Paralysis of vocal cords or larynx, unsp ecified LPRD (laryngopharyngeal reflux disease) Esophageal reflux documented in this encounter Care Teams Fur Remodeler Relationship Specialty Start Date End Date Fabiano Celaya MD PCP - General Emergency Medicine 11/21/21 [address] [place] [address] documented as of this encounter
--- OUTSIDE RECORDS SUMMARY | 2022-10-09 16:12 | XMS_ITS | Encounter Summary ---
:1940 [place] [address] Care Team Providers Name Role Phone Dexter Pereira MD Primary Care Provider Reason for Visit Reason Comments Constipation s/p surgery , herni a repair Encounter Details Date Type Department Care Team Description 10/30/2020 Emergency Emergency Department Jerod Mcneill nstipation, Sharita Larios MD unspecified [facility] constipation [facility], [place] (Primary Dx) [facility] [place] [address] [place] [id number] [phone] (Wo rk) Social History Tobacco Use Types Packs/Day Years Used Date Smoking Tobacco: Never Smokeless Tobacco: Never Alcohol Use Standard Drinks/Week Comments Never 0 (1 standard drink = 0.6 oz pure alcoho l) RARE Sex Assigned at Date Recorded Not on file documented as of this encounter Last Filed Vital Signs Vital Sign Reading Time Taken Comments Blood Pressure 148/81 10/30/2020 8:00 PM EST Pulse 70 10/30/2020 8:15 PM EST Temperature 36.7 ??C (98 ??F) 10/30/2020 4:17 PM EST Respiratory Rate 22 10/30/2020 7:15 PM EST Oxygen Saturation 97% 10/30/2020 8:15 PM EST Inhaled Oxygen Concentration - - Weight 62.6 kg (138 lb) 10/30/2020 4:17 PM EST Height 170.2 cm (5' 7) 10/30/2020 4:17 PM EST Body Mass Index 21.61 10/30/2020 4:17 PM EST documented in this encounter Discharge Instructions Discharge InstructionsStRubin loera MD - 10/30/2020 8:17 PM EST You were seen in the emerge department for concerns about constipation. He was seen by the surgical team here who felt that your exam was very reassuring that you are healing appropriately post surgery. You were given an enema which improved your symptoms. You should continue to take MiraLAX and that the other bowel regimen that has been prescribed by your surgical team. You may increase your MiraLAXdose to capful twice a day until you have a bowel movement and then decrease it accordingly. You should contact your primary care physician to let them know that you are in the hospital and to arrange appropriate follow-up. If you experience any change or increase in your symptoms including increased a bdominal pain, inability urinate, inability to tolerate food or drink, or any other concerns please not hesitate to seek immediate medical attention. AttachmentsThe following attachments cannot be sent through Care Everywhere. Constipation (Guinean)documented in this encounter Medications at Time of [...] documented as of this encounter ED Notes Lindsay Black RN - 10/30/2020 7:41 PM EST Patient up to the toilet to try to have a BM Lindsay Black RN - 10/30/2020 7:34 PM EST Soap suds enema administered and patient tolerated treatment well. Approximately 500 cc of soap sudsenema fully administered. Patient was able to ambulate to the BR independently prior to treatment. Patient laying on his L side at this time with unlabored respirations. Patient denies any abdominal pain or nausea. Jerod Barreto MD - 10/30/2020 6:42 PM EST Brief Attending Note I cared for the patient with the resident physician. Please see Dr. Mae's note, associated withthe encounter, for more details. HPI: Alfredito Mina is a 80 y.o. who presents to the ED history of inguinal hernia repair postoperative day #3, presenting with no bowel movement since. Mild abdominal discomfort. He is passing gas. No fevers or chills. He has tried MiraLAX, Dulcolax without relief. ROS: Pertinent positives and negatives are included in the history of present illness, otherwise 10 systems are reviewed and negative Allergies: Allergies Allergen Reactions ??? Cyclobenzaprine Urinary retention, xerostomia ??? Lactose Other (See Comments) Sneezing Past Medical, Past Surgical, Family/Social History: reviewed in chart. Patient Vitals for the past 8 hrs: BP Temp Pulse Resp SpO2 Height Weight 10/30/20 1647 -- -- 70 -- 98 % -- -- 10/30/20 1646 156/74 -- -- -- -- -- -- 10/30/20 1645 160/83 -- 70 -- 96 % -- -- 10/30/20 1617 142/68 36.7 ??C (98 ??F) 78 20 96 % 170.2 cm (5' 7) 62.6 kg (138 lb) Gen: well appearing, NAD HENT: atraumatic, OP clear, mmm Pulm: CTA charisse, no respiratory distress Card: RRR Abd: soft,Surgical incisions clean dry intact, left lower quadrant tenderness, per resident, no fecal impaction Skin: warm and dry Neuro: speech fluent, no obvious deficit MS: No obvious deformity Psych: Normal mood Assessment: 80 y.o. male presenting with lack of bowel movement status post recent surgery. He is passing gas. No fecal impaction. KUB, surgical consultation. Jerod Mcneill MD 10/30/201843 Bing Cunningham RN - 10/30/2020 6:14 PM EST Pt unhooked to go to bathroom, at bedside. Bing Cunningham RN - 10/30/2020 5:32 PM EST Pt changed into gown and placed on monitors. Rubin Mae MD - 10/30/2020 4:49 PM EST Alfredito Mina is an 80 y.o. male who presents to the ED with: Chief Complaint Patient presents with ??? Constipation s/p surgery , hernia repair I saw this patient 10/30/2020 at ~ 11:41 PM HPI Alfredito Mina is a 80 y.o. male with a PMH significant for HTN, HLD, sternotomy for mitral valve replacement, lung adenocarcinoma s/p thoracoscopic right lower lobectomy, asthma, multinodular goiter s/p total thyroidectomy complicated by an avulsion of the left recurrent laryngeal - now with hoarseness and intermittent aspiration, prostate cancer s/p XRT, GERD and recent laparoscopic hernia repair who presents to the Emergency Department with concerns of constipation. Patient states that since being discharged from same day bilateral hernia repair surgery 3 years ago he has not had a bowel movement. Patient states that he is passing gas without issue and has been tolerating food but has been unable to pass stool. Patient states that he did take MiraLAX yesterday and several hours ago took something which he believes may be mag citrate no he has not had a bowel movement yet. Patient deniesany fever, states his abdominal pain is mild, denies any vomiting, nausea. Patient states that he isable to urinate without issue Social History Socioeconomic History ??? Marital status: Single Spouse name: None ??? Number of children: None ??? Years of education: None ??? Highest education level: None Occupational History ??? None Social Needs ??? Financial resource strain: None ??? Food insecurity Worry: None Inability: None ??? Transportation needs Medical: None Non-medical: None Tobacco Use ??? Smoking status: Never Smoker ??? Smokeless tobacco: Never Used Substance and Sexual Activity ??? Alcohol use: Never Comment: RARE ??? Drug use: Never ??? Sexual activity: None Lifestyle ??? Physical activity Days per week: None Minutes per session: None ??? Stress: None Relationships ??? Social connections Talks on phone: None Gets together: None Attends confucianist service: None Active member of club or organization: None Attends meetings of clubs or organizations: None Relationship status: None ??? Intimate partner violence Fear of current or ex partner: None Emotionally abused: None Physically abused: None Forced sexual activity: None Other Topics Concern ??? None Social History Narrative ??? None Review of Systems: Review of Systems Constitutional: Negative for chills and fever. HENT: Negative for trouble swallowing and voice change. Eyes: Negative for photophobia and visual disturbance. Respiratory: Negative for cough, chest tightness and shortness of breath. Cardiovascular: Negative for chest pain and palpitations. Gastrointestinal: Positive for abdominal pain and constipation. Negative for diarrhea, nausea and vomiting. Genitourinary: Negative for difficulty urinating and dysuria. Musculoskeletal: Negative for back pain, neck pain and neck stiffness. Skin: Negative for rash and wound. Neurological: Negative for dizziness, light-headedness, numbness and headaches. Psychiatric/Behavioral: Negative for confusion and decreased concentration. Vital Signs: Patient Vitals for the past 24 hrs: BP Temp Pulse Resp SpO2 Height Weight 10/30/202014 -- -- 70 -- 97 % -- -- 10/30/201999 148/81 -- 71 -- 97 % -- -- 10/30/20 1915 169/80 -- 72 22 97 % -- -- 10/30/20 1800 162/71 -- 71 14 97 % -- -- 10/30/20 1730 141/52 -- 69 15 97 % -- -- 10/30/20 1715 146/64 -- 75 20 98 % -- -- 10/30/20 1700 154/68 -- 70 13 96 % -- -- 10/30/20 1647 -- -- 70 -- 98 % -- -- 10/30/20 1646 156/74 -- -- -- -- -- -- 10/30/20 164 160/83 -- 70 -- 96 % -- -- 10/30/20 1617 142/68 36.7 ??C (98 ??F) 78 20 96 % 170.2 cm (5' 7) 62.6 kg (138 lb) I have reviewed the vital signs, which demonstrates Physical Exam: Physical Exam Constitutional: General: He is not in acute distress. Appearance: Normal appearance. He is normal weight. He is not ill-appearing. HENT: Head: Normocephalic and atraumatic. Eyes: Conjunctiva/sclera: Conjunctivae normal. Pupils: Pupils are equal, round, and reactive to light. Neck: Musculoskeletal: Normal range of motion and neck supple. Cardiovascular: Rate and Rhythm: Normal rate and regular rhythm. Pulmonary: Effort: Pulmonary effort is normal. No respiratory distress. Abdominal: General: Abdomen is flat. Tenderness: There is generalized abdominal tenderness. Musculoskeletal: General: No swelling or tenderness. Skin: General: Skin is warm and dry. Capillary Refill: Capillary refill takes less than 2 seconds. Neurological: General: No focal deficit present. Mental Status: He is alert and oriented to person, place, and time. Psychiatric: Mood and Affect: Mood normal. Behavior: Behavior normal. ED Course: - Patient was evaluated and discussed with Dr. Mcneill - Medications, allergies and past medical history reviewed - Nursing notes and vital signs reviewed - Medications and fluid administered: Medications - No data to display - I have reviewed the labs, which are significant for: No results found for this or any previous visit (from the past 24 hour(s)). - I have reviewed the imaging, which is significant for: XR Abdomen Flat & Upright Final Result 1. Nonobstructive bowel gas pattern. 2. Moderate stool burden. Preliminary report signed by: Joann Sanchez at 10/30/2020 6:12 PM I have personally reviewed the image(s) and the resident's interpretation and agree with the findings, Babar Aguiar MD at 10/30/2020 6:17 PM Thank you for letting us participate in the care of this patient. For questions regarding this report, please contact the number below. Electronically signed by: Babar Aguiar MD, [facility] ([phone]), at 10/30/2020 6:17 PM Assessment and Plan: MDM: Alfredito Mina is a 80 y.o. male with a PMH significant for HTN, HLD, sternotomy for mitral valve replacement, lung adenocarcinoma s/p thoracoscopic right lower lobectomy, asthma, multinodular goiter s/p total thyroidectomy complicated by an avulsion of the left recurrent laryngeal - now with hoarseness and intermittent aspiration, prostate cancer s/p XRT, GERD and recent laparoscopic hernia repair who presents to the Emergency Department with concerns of constipation. Rectal exam was performed which noted no evidence of any significant stool ball. Patient's abdomen was tender particularly in the left lower quadrant. Is very possible that patient is simply having postsurgical constipation particular due to some decreased p.o. intake. However the patient is still tolerating p.o. without any discomfort and is passing gas easily. A x-ray of the abdomen was obtained which showed a nonobstructed bowel gas pattern as well as a moderate stool burden. General surgery was consulted due to the patient's recent surgical discharge. The patient had a reassuring physical exam and that it is likely that he is having some normal postsurgical constipation. They recommended a enema and he discharged the patient subsequent improvement on a increase bowel regimen medication. Enema was performed and the patient who suddenly stated that he felt much improved. The patient was able to tolerate p.o. without any issue and was subsequently discharged home. The patient was told toincrease his MiraLAX dose and to continue his other bowel regimen as prescribed by his surgical team. Patient is to follow-up with primary care physician. Patient still that he is. Any change or increase in his symptoms including increased abdominal pain, inability tolerate food or drink, inability urinate, or any other concerns do not hesitate to seek immediate medical attention. Return precautions were verbally discussed with the patient. The patient expressed understanding that they could come back to the ED at any time and agreed to the follow-up plan. Plan: - Discharge home - Follow up with PCP - Return precautions were discussed with the pt Rubin Mae MD EM Resident, PGY-2 10/30/20 11:41 PM Rubin Mae MD Resident 10/30/20 [id number] Associated attestation - Jerod Mcneill MD - 11/03/2020 2:21 PM EST ED ATTENDING ATTESTATION The patient was seen in conjunction with the resident physician. I have independently performed the melchor portions of the history and physical exam. I have personally reviewed nursing notes, vital signs,and diagnostic studies including labs, imaging studies and EKGs. I have discussed the details of the case with the resident and agree with the assessment and plan as described in the resident's note, unless stated otherwise in my separate note. Did this case involve critical care? No documented in this encounter Miscellaneous Notes Consult Note - Rubin Conti MD - 10/30/2020 6:56 PM EST [facility] Department of General surgery Consult Note Consultation Requested by: Jerod Mcneill MD We are seeing Alfredito Mina today at the request of Dr. Jerod Mcneill MD for evaluationand advice about constipation. CC/HPI: Alfredito Mina is a 80 y.o. male with extensive medical history significant for bilateral openinguinal hernia repairs complicated by left-sided recurrence now postop day #3 from laparoscopic bilateral inguinal hernia repair who presents to the ED for evaluation constipation. Patient was recently discharged after laparoscopic inguinal hernia repair and has since not had a bowel movement. Endorses passing flatus. Denies worsening abdominal pain or distention, nausea, emesis, fevers, chills. Since his surgery he only took his prescription opioid on postop day 1, and endorses having half dose ofMiraLAX twice daily. He presented to the ED at the insistence of his girlfriend for further evaluation. PMH: Past Medical History: Diagnosis Date ??? Arthritis knee replacement right ??? Aspiration into lower respiratory tract 05/06/2013 ??? Cancer lung 2010 ??? Colon polyps ??? Difficulty in swallowing ??? Dry mouth ??? Dyslipidemia ??? GERD (gastroesophageal reflux disease) ??? Heart valve disease I have had surgery here at [facility] for a valve repair ??? Hypertension ??? Inguinal hernia left recurrent ??? Lung cancer ??? Multinodular goiter ??? Pancreatic cyst ??? Prostate cancer s/p XRT ??? Skin cancer 07/2013 squamous cell ??? Status post radiation therapy for prostate PSH: Past Surgical History: Procedure Laterality Date ??? CARDIAC SURGERY valve repair ??? CARDIAC VALVE REPLACEMENT ??? CREATED BY [...] SURGERY Partial removal of R lung ??? LUNG SURGERY partial removal of 1 lung ??? PRG SOMATOSENSORY TEST, ANY/ALL PER. NERVES, TRUNK OR HEAD 11/30/2011 FACIAL NERVE MONITORING, SETUP performed by FRANK MAC at [facility] MAIN OR ??? PRO COLONOSCOPY, REMV LESN, SNARE 01/06/2013 COLONOSCOPY, POLYPECTOMY, REMOVAL LESION BY SNARE performed by Josh Jeffery MD at [facility] ENDOSCOPY ??? PRO LAP, INGUINAL HERNIA REPR, INITIAL Bilateral 10/27/2020 LAPAROSCOPIC HERNIA REPAIR, INITIAL INGUINAL- CHARISSE (WRVU 6.36) performed by Dulce Osborne MD at [facility] MAIN OR ??? PRO REPAIR RECURR INGUIN KIRAN, REDUCIBL 03/10/2011 HERNIA REPAIR, INGUINAL, RECURRENT performed by NOREEN BOWIE at [facility] OR ??? PRO THYROIDECTOMY=SUBSTERNAL, TRANSCERV 11/30/2011 THYROIDECTOMY, INCL. SUBSTERNAL, CERVICAL APPROACH performed by FRANK MAC at [facility] MAIN OR ??? PRO TOTAL KNEE ARTHROPLASTY 06/19/2012 @TOTAL KNEE ARTHROPLASTY performed by ADAM CARRERO at [facility] OR ??? ROTATOR CUFF REPAIR 2013 ??? UMBILICAL HERNIA REPAIR ??? UPPER GI ENDOSCOPY, EXAM 01/29/2012 UPPER GI ENDOSCOPY performed by VICKI SON at [facility] ENDOSCOPY MEDS: No current facility-administered medications on file prior to encounter. Current Outpatient Medications on File Prior to Encounter Medication Sig Dispense Refill ??? traMADoL (Ultram) 50 mg Tablet Take 1 tablet by mouth every 6 hours as needed for Pain. 10 tablet 0 ??? furosemide (Lasix) 40 mg Tablet Take [...] Packet Take 17 g by mouth daily. ALL: Allergies Allergen Reactions ??? Cyclobenzaprine Urinary retention, xerostomia ??? Lactose Other (See Comments) Sneezing FH: Family History Problem Relation Age of Onset ??? Asthma Mother ??? Heart Failure Father ??? Thyroid Disease Paternal Grandmother SH: Social History Socioeconomic History ??? Marital status: Single Spouse name: Not on file ??? Number of children: Not on file ??? Years of education: Not on file ??? Highest education level: Not on file Occupational History ??? Not on file Social Needs ??? Financial resource strain: Not on file ??? Food insecurity Worry: Not on file Inability: Not on file ??? Transportation needs Medical: Not on file Non-medical: Not on file Tobacco Use ??? Smoking status: Never Smoker ??? Smokeless tobacco: Never Used Substance and Sexual Activity ??? Alcohol use: Never Comment: RARE ??? Drug use: Never ??? Sexual activity: Not on file Lifestyle ??? Physical activity Days per week: Not on file Minutes per session: Not on file ??? Stress: Not on file Relationships ??? Social connections Talks on phone: Not on file Gets together: Not on file Attends confucianist service: Not on file Active member of club or organization: Not on file Attends meetings of clubs or organizations: Not on file Relationship status: Not on file ??? Intimate partner violence Fear of current or ex partner: Not on file Emotionally abused: Not on file Physically abused: Not on file Forced sexual activity: Not on file Other Topics Concern ??? Not on file Social History Narrative ??? Not on file ROS: Pertinent positives and negatives mentioned above. VITALS: Temp: [36.7 ??C (98 ??F)] Heart Rate: [70-78] Resp: [20] BP: (142-160)/(68-83) SpO2: [96 %-98 %] Heart Rate from SpO2: [69 bpm-71 bpm] EXAM: General: NAD, laying in bed HEENT: NC/AT CVS: regular rate Pulm: breathing comfortably on RA Abd: soft, nondistended, appropriate tenderness especially above site of left- sided subcutaneous emphysema : Penile ecchymosis, both testicles and scrotum Ext: warm, well perfused Neuro: AAO, no facial asymmetry, no focal deficits LABS: CBC No results found for: WBC, HGB, HCT, PLATELET Electrolytes No results found for: NA, K, CL, CO2 Lab Results Component Value Date BUN 22 (H) 07/24/2019 CREATININE 1.16 07/24/2019 Coags No results found for: INR, PT, PTT IMAGING: KUB IMPRESSION 1. Nonobstructive bowel gas pattern. 2. Moderate stool burden. IMPRESSION: Alfredito Mina 80 y.o. male with extensive PMH significant for bilateral open inguinal hernia repair complicated by recurrence now postop day 3 from laparoscopic bilateral inguinal hernia repair with mesh who presents to the ED with constipation. He is passing flatus and is without nausea, emesis, distention, or increasing abdominal pain. He appears otherwise comfortable and his exam is significant for mild and appropriate tenderness. KUB revealed moderate stool burden and nonobstructive gas pattern. My assessment is that he has constipation without obstruction or ileus. RECOMMENDATIONS: 1. Recommend aggressive bowel regimen with full dose twice daily MiraLAX, Mary Lou- Colace, and fiber. Recommend enema as well as he has requested this. If he has a bowel movement and feels well, okay to discharge from general surgery perspective. 2. Follow-up in clinic as scheduled Thank you for this consult. If you have any questions, please page [phone]. Rubin Conti MD Minimally Invasive Surgery 10/30/2020 6:56 PM Associated attestation - Clif Marmolejo MD - 10/30/2020 11:06 PM EST Attending addendum: I discussed and help formulate the plan as documented below. In brief, this is an 80 yo M POD3 s/p lap b/l inguinal hernia repair with constipation. Passing flatus. No impaction. Plan increased bowel regimen, enema, and discharge home. For purposes of billing, the resident provided direct patient care. CLIF MARMOLEJO MD ED Triage - Sheryl Laureano RN - 10/30/2020 4:15 PM EST Had surgery on Sunday, hernia repair. Has not had a bowel movement since. Has tried miralax and ducolax. documented in this encounter Plan of Treatment Upcoming Encounters Date Type Specialty Care Team Description 10/11/2022 Office Visit Dermatology Virgilio Mckeon MD [facility] DR CHRISTIANO HENSON-DERMAT OLOGY [place], [place] [address] (Wo sriram) 10/16/2022 Office Visit Otolaryngology Frank Buchanan MD [facility] OTOLARYNGOLOGY Sarah EPT. [place], [place] [address] (Leroy bhatia) 11/29/2022 Appointment Hematology and Oncology 11/29/2022 Office Visit Radiation Oncology Clif Leyva, [facility] [place] [address] (Wo sriram) documented as of this encounter Procedures Procedure Name Priority Date/Time Associated Diagnosis Comme nts XR ABDOMEN FLAT AND STAT 10/30/2020 5:51 PM Re sults for this UPRIGHT EST procedure are i n the results section. documented in this encounter Results XR Abdomen Flat & Upright (10/30/2020 5:51 PM EST) Anatomical Region Laterality Modality Abdomen N/A Digital Radiography Specimen (Source) Anatomical Location Collection Method / Collectio n Time Received Time / Laterality Volume Impressions 10/30/2020 6:17 PM EST 1. ??Nonobstructive bowel gas pattern. 2. ??Moderate stool burden. Preliminary report signed by: Joann Sanchez at 10/30/2020 6:12 PM I have personally reviewed the image(s) and the resident's interpretation and agree with the findings, Babar Aguiar MD at 10/30/2020 6:17 PM Thank you for letting us participate in the care of this patient. For questions regarding this report, please contact e number below. ? Electronically signed by: Babar Aguiar MD, [facility] ([phone]), at 10/30/2020 6:17 PM Narrative 10/30/2020 6:17 PM EST EXAMINATION: XR ABDOMEN FLAT AND UPRIGHT CLINICAL HISTORY: Laparoscopic bilateral inguinal hernia repairs years ago now with constipation, abdominal pain Evidence of stool burden or ileus TECHNIQUE: AP upright and supine views of the abdom en COMPARISON: CT abdomen dated 10/24/2010 CT chest dated 06/21/2020 FINDINGS: Multiple surgical clips within the pelvi s. No dilated loops of air-filled small or large bowel. There is a moderate amou nt of stool within the descending colon and rectum. No free air. The lung bases are clear. Partially imag ed intact sternotomy wires. A mitral valve prosthesis is noted. Procedure Note Babar Aguiar MD - 10/30/2020Format ting of this note might be different from the original. EXAMINATION: XR ABDOMEN FLAT AND UPRIGHT CLINICAL HISTORY: Laparoscopic bilateral inguinal hernia repairs years ago now with constipation, abdominal pain Evidence of stool burden or ileus TECHNIQUE: AP upright and supine views of the abdom en COMPARISON: CT abdomen dated 10/24/2010 CT chest dated 06/21/2020 FINDINGS: Multiple surgical clips within the pelvi s. No dilated loops of air-filled small or large bowel. There is a moderate amou nt of stool within the descending colon and rectum. No free air. The lung bases are clear. Partially imag ed intact sternotomy wires. A mitral valve prosthesis is noted. IMPRESSION 1. Nonobstructive bowel gas pattern. 2. Moderate stool burden. Preliminary report signed by: Joann Sanchez at 10/30/2020 6:12 PM I have personally reviewed the image(s) and the resident's interpretation and agree with the findings, Babar Aguiar MD at 10/30/2020 6:17 PM Thank you for letting us participate in the care of this patient. For questions regarding this report, please contact th e number below. Electronically signed by: Babar Aguiar MD, [facility] ([phone]), at 10/30/2020 6:17 PM Jerod Mcneill MD IMG DX ORDERABLES documented in this encounter Visit Diagnoses Diagnosis Constipation, unspecified constipation t ype - Primary documented in this encounter Care Teams Market Research Assistant Relationship Specialty Start Date End Date Dexter Pereira MD PCP - General Internal Medicine 06/21/20 11/20/21 [address] [place] [address] documented as of this encounter
--- OUTSIDE RECORDS SUMMARY | 2022-10-09 16:12 | XMS_ITS | Encounter Summary ---
:1940 Author Organization [facility] [place] [place] [address] Care Team Providers Name Role Phone Fabiano Celaya MD Primary Care Provider Encounter Details Date Type Department Care Team Description 05/25/2022 Office Visit Otolaryngology at [facility] Vocal cord paralysis [facility] [place] [address] [facility] [phone] [place] [facility] [place], [place] [address] Social History Tobacco Use Types [...] - Inhaled Oxygen Concentration - - Weight 65.3 kg (144 lb) 05/25/2022 3:25 PM EDT Height 170.2 cm (5' 7) 05/25/2022 3:25 PM EDT Body Mass Index 22.55 05/25/2022 3:25 PM EDT documented in this encounter Progress Notes Bobby Santos PA - 05/25/2022 3:30 PM EDT [facility] [place] [place] OTOLARYNGOLOGY FOLLOW UP NOTE Alfredito Mina is a 81 y.o. male followed for: left vocal cord paralysis This patient has a history of left vocal cord paralysis s/p thyroidectomy for multinodular goiter.??The patient presented with progressive symptomatic paralysis with choking while drinking and hoarseness. ??As such, recommendation made for LEFT vocal cord injection, which was performed on 05/02/22. Findings at the time of surgery as follows: No masses, lesions or ulcerations of larynx or hypopharynx. LEFT vocal cord injected with 0.9 cc Prolaryn Plus with adequate medialization. He returns today for a hospital check. New issues since last visit: Today is the best day I have had in a long time. No coughing or nothing. No pain in the neck. Swallowing is going well. Everything seems to go down well, except pills. Sometimes when he drinks water it can go down the wrong way. If he turns his head to the left when swallowing water that helps that. Nutrition is going well. Breathing without difficulty. No hemoptysis. Patient has not had swelling in the neck. Has not had fevers, chills, night sweats. PROBLEM LIST Patient Active Problem List Diagnosis [...] disease I have had surgery here at [facility] for a valve repair ??? Hypertension ??? [...] to Visit Medication Sig Dispense Refill ??? multivitamin (THERAGRAN) Tablet Take 1 tablet by mouth daily. ??? Lumigan 0.01 % Drops INSTILL ONE DROP INTO BOTH EYES AT BEDTIME ??? pantoprazole sodium (PROTONIX ORAL) Take by mouth. ??? traMADoL (Ultram) 50 mg Tablet Take 1 tablet by mouth every 6 hours as needed for Pain. (Patientnot taking: No sig reported) 10 tablet 0 ??? furosemide (Lasix) 40 mg Tablet Take 20 mg by mouth daily. ??? levothyroxine (Synthroid) 100 mcg Tablet Take 100 mcg by mouth daily. ??? potassium chloride ER (K-Dur/Klor-Con) 20 mEq Tab Sust.Rel. Particle/Crystal Take 10 mEq by mouth daily. ??? terazosin (HYTRIN) 2 mg Capsule Take 1 capsule by mouth nightly. 90 capsule 3 ??? polyethylene glycol (MIRALAX) 17 gram Powder in Packet Take 17 g by mouth daily. No current facility-administered medications on file prior to visit. ALLERGIES Allergies Allergen Reactions ??? Cyclobenzaprine Urinary retention, xerostomia ??? Codeine Other (See Comments) Patient doesn't recall what reaction is ??? Lactose Other (See Comments) Sneezing ROS 8 point Review of Systems was normal except for pertinent positives and negatives included in the History of Present Illness. PHYSICAL EXAMINATION Physical Examination: VITALS - There were no vitals taken for this visit. GENERAL - Well dressed and well nourished. - Breathing comfortably without stridor. - No acute distress. FACE - Full and symmetric facial movement. - No dysmorphic facial features. EYES - Periocular structures and conjunctiva healthy without lesions. - Pupils are equal, round, and reactive to light. - Extraocular movement is full and intact. - No evidence of nystagmus. MOUTH - Lips and gingiva pink, moist, without lesions. - Tongue and floor of mouth soft without lesions or masses. - Hard palate without lesions. PHARYNX - Soft palate without lesions. - Uvula is midline. - Oropharynx symmetric. NECK - Soft, supple, without significant lymphadenopathy. - Thyroid gland without masses or asymmetry. - Trachea midline without deviation. - No crepitus. NEURO - Cranial nerves II-XII intact and symmetric. - Responds appropriately to questions. PSYCHE - Normal mood and affect. PROCEDURES REVIEW OF IMAGES/STUDIES ASSESSMENT/RECOMMENDATIONS - Recovering well from his procedure, with no significant postoperative complications since discharge, and notable improvement in swallowing. Discussed his return to clini in 4 months for reassessment,but emphasized that he should call to be seen for any worsening symptoms in the interim. - The patient expressed understanding of these points and agreement with the plan, and all questionsthat were asked were answered to the patient's satisfaction. Plan: > Return to clinic in 4 months for reassessment. > Patient should call if their symptoms worsen or fail to improve, if new concerning symptoms arise, or if they have any questions or concerns regarding their treatment. I appreciate the opportunity to be involved in Mr. Mina's care. Bobby Santos PA-C [place], [place] [address] Office 05/25/2022 documented in this encounter Plan of Treatment Upcoming Encounters Date Type Specialty Care Team Description 10/11/2022 Office Visit Dermatology Virgilio Mckeon MD [facility] ER DR CHRISTIANO HENSON-DERMAT OLOGY [place], [place] [address] (Wo rk) 10/16/2022 Office Visit Otolaryngology Frank Buchanan MD [facility] OTOLARYNGOLOGY Sarah EPT. [place], [place] [address] (Wo rk) 11/29/2022 Appointment Hematology and Oncology 11/29/2022 Office Visit Radiation Oncology Emerald Leyva APRN [facility] ER RADIATION ONCOLO GY [place], [place] [address] (Wo rk) documented as of this encounter Visit Diagnoses Diagnosis Vocal cord paralysis Paralysis of vocal cords or larynx, unsp ecified documented in this encounter Care Teams Workforce Planning Analyst Relationship Specialty Start Date End Date Fabiano Celaya MD PCP - General Emergency Medicine 11/21/21 [address] [place] [address] documented as of this encounter
--- OUTSIDE RECORDS SUMMARY | 2022-10-09 16:12 | XMS_ITS | Encounter Summary ---
:1940 Author Organization [facility] [place] [address] Care Team Providers Name Role Phone Fabiano Celaya MD Primary Care Provider Reason for Referral Diagnostic Test (Routine) - New Request Specialty Diagnoses / Procedures Referred By Contact Refer red To Contact Radiology Diagnoses S/P lobectomy of lung Primary adenocarcinoma of right lung Dexter Cote, [facility] Rad Ct Scan Procedures CT Chest wo Contrast (Generic) [facility] [place] [address] [place] [address] Referral ID Status Reason Start Expiration Visits Visits Date Date Requested Authorized [id number] New Request Specialty 01/20/2022 07/23/2023 1 1 Service Requested Encounter Details Date Type Department Care Team Description 01/20/2022 Orders Only Thoracic Surgery at [facility] S/P lobectomy of lung; [place] RN Primary [place] [address] Social History Tobacco Use Types Packs/Day Years Used Date Smoking Tobacco: Never Smokeless Tobacco: Never Alcohol Use Standard Drinks/Week Comments Never 0 (1 standard drink = 0.6 oz pure alcoho l) RARE Sex Assigned at Date Recorded Not on file documented as of this encounter Plan of Treatment Upcoming Encounters Date Type Specialty Care Team Description 10/11/2022 Office Visit Dermatology Virgilio Mckeon MD [facility] ER DR CHRISTIANO HENSON-DERMAT OLOGY [place], [place] [address] (Wo rk) 10/16/2022 Office Visit Otolaryngology Frank Buchanan MD [facility] OTOLARYNGOLOGY D EPT. [place], [place] [address] (Wo rk) 11/29/2022 Appointment Hematology and Oncology 11/29/2022 Office Visit Radiation Oncology Emerald Leyva APRN [facility] RADIATION ONCOLO GY [place], [place] [address] (Wo rk) Scheduled Orders Name Type Priority Associated Diagnoses Order S chedule CT Chest wo Contrast Imaging Routine S/P lobecto my of lung Expected: 01/08/2023 (Generic) Primary adenocarcinoma of (A pproximate), right lung Expires: 2022 documented as of this encounter Visit Diagnoses Diagnosis S/P lobectomy of lung Other postprocedural status Primary adenocarcinoma of right lung documented in this encounter Care Teams Candy Attendant Relationship Specialty Start Date End Date Fabiano Celaya MD PCP - General Emergency Medicine 11/21/21 [address] [place] [address] documented as of this encounter
--- OUTSIDE RECORDS SUMMARY | 2022-10-09 16:12 | XMS_ITS | Encounter Summary ---
:1940 [place] [address] Care Team Providers Name Role Phone Dexter Pereira MD Primary Care Provider Encounter Details Date Type Department Care Team Description 10/27/2020 Anesthesia Event Main Operating Room Jocelyn Mcarthur MD [facility] [place] [address] [place] [address] [phone] Anesthesia Record Procedure Summary Procedure Name Responsible Anesthesia Start Anesthesia Stop Anesthesiologist Time Time LAPAROSCOPIC HERNIA Jocelyn Tucker MD 10/27/20 0824 0 1052 REPAIR, INITIAL INGUINAL- CHARISSE (WRVU 6.36) (Bilateral: Pelvis) Events Date Time Event Comment 10/27/2020 0805 0824 AN Verify 0824 Start 0824 An Start Data 0830 An Induction 0835 An Intubation 0837 Anesthesia Ready 0908 Break/Relief In I assumed care f or Break Relief before which we: 1. Identifie d the patient 2. Identified the responsible provider(s) 3. Reviewed the pertinent medica l history 4. Discussed the surgical plan an d course 5. Reviewed intra-op anesthesia manag ement and issues during anesthesia 6. Se t expectations for the relief (and/or post-pro cedure) period 7. Allowed opportunity for questions and acknowledgement of understanding RORO Hernandez 0925 Break/Relief Out 0930 Quick Note Bilat chest & ab d crepitus noted. Surgeon notified. Hyperv entilating and abd deflated for a few minute s to blow off some CO2 0933 Quick Note Surgery resumed. , Abd insufflation at 12 mmHg 1037 Extubation/LMA Out 1043 an stop data 1049 Recovery or ICU Handoff Patient care was transferred to the destination unit staff after review of the patient's medica l history, current anesthetic/surgi janae status and plan, according to the Provider Handoff Checklist. 1052 Stop Name Total fentaNYL 50 mcg Propofol 200 mg Rocuronium 80 mg ePHEDrine 10 mg Ondansetron 4 mg Glycopyrrolate 0.4 mg ceFAZolin (Ancef) 2 g in dextrose 5% 100 mL infusion 2 g Sugammadex 150 mg lactated ringers infusion 600 mL Agents Name O2 Air N2O Sevoflurane (et) Blood No blood administrations on file. Lines, Drains, and Airways Type Details Placement Removal Incision 11/30/11; 1556; neck; 11/30/11 1556 by 07/10/22 1715 by Don, 07/10/22 (LDA cleanup Amita Cerda, RN Becky goldman L utility RA#[id number]); 1715 (LDA cleanup utility RA#[id number]) Incision 06/19/12; knee; 07/10/22 06/19/12 0000 by 1715 by Don, (LDA cleanup utility Tamie Dye RN Ann elaine L RA#[id number]); 1715 (LDA cleanup utility RA#[id number]) PIV 10/27/20; 0756; median 10/27/20 0756 by Ramez, 1 12/28/19 1357 by Fritz, cubital vein (antecubital Frank Bradford II, RN Melecio Pugh RN fossa), left; kotn-suk-lfguoz catheter system; 18 gauge, 1 in length; Holden Brown RN; distraction, tolerated well, appears comfortable; 0; 10/27/20; 1357 ETT Mask Ventilation: Easy (1); 10/27/20 0835 by Pet er, 10/27/20 1037 by Abundio ETT Type: Cuffed, Oral; ETT RORO Colon CRNA Size: 8 mm; Mac Blade: 4; Notes: Asleep, Pre-O2, Cricoid Pressure; Attempts: 1; Laryngoscopy Grade: 1; ETT Placement Verified By: Capnometry, Auscultation, Visual; Secured at Teeth: 24 cm; Inserted by: Ezequiel Urias Medical Student Incision 10/27/20; 0852; abdomen; 10/27/20 0852 by 1715 by Don laparoscopic punctures Violetta Goetz RN D ierdre L (specify) (3 trocar sites); 07/10/22 (LDA cleanup utility RA#[id number]); 171 (LDA cleanup utility RA#[id number]) documented in this encounter Social History Tobacco Use Types Packs/Day Years Used Date Smoking Tobacco: Never Smokeless Tobacco: Never Alcohol Use Standard Drinks/Week Comments Never 0 (1 standard drink = 0.6 oz pure alcoho l) RARE Sex Assigned at Date Recorded Not on file documented as of this encounter OR Notes Anesthesia Postprocedure Evaluation - Jocelyn Tucker MD - 10/27/2020 11:06 AM EST Department of Anesthesiology Post-procedure Note Patient: Alfredito Mina Procedure Summary Date: 10/27/20 Room / Location: [address] MAIN OR Anesthesia Start: 823 Anesthesia Stop: 1051 Procedures: LAPAROSCOPIC HERNIA REPAIR, INITIAL INGUINAL- CHARISSE (WRVU 6.36) (Bilateral Pelvis) MODIFIER MESH,BARD,3D MAX REG (N/A Pelvis) Diagnosis: (BILATERAL RECURRENT INGUINAL HERNIA) Surgeon: Dulce Osborne MD Responsible Provider: Joeclyn Tucker MD Anesthesia Type: general ASA Status: 3 All Anesthesia Providers: Anesthesiologist: Jocelyn Tucker MD SEWER AND INSPECTOR: Ernestine Del Castillo CRNA Vitals Value Taken Time BP 164/87 10/27/20 1100 Temp 36 ??C (96.8 ??F) 10/27/20 1047 Pulse Resp 16 10/27/20 1047 SpO2 100 % 10/27/20 1105 Pain Level 3 10/27/20 1056 Vitals shown include unvalidated device data. Patient Location: PACU/[facility] Level of Consciousness: Awake and Alert Pain Management: Satisfactory Analgesia PONV: None Cardiovascular Status: At Baseline and Hemodynamically Stable Respiratory Status: At Baseline and Room Air Postoperative Fluid Status: Intravascular EUvolemia Possible Anesthetic Complications: NONE apparent at time of evaluation Final Primary Anesthesia Type: General (The anesthetic type performed was the same as planned.) Comments: Jocelyn Tucker MD Anesthesia Preprocedure Evaluation - Jocelyn Tucker MD - 10/26/2020 6:45 PM EST Pre-Anesthesia Evaluation for: Alfredito jauregui 80 y.o. male. Procedure(s): LAPAROSCOPIC HERNIA REPAIR, INITIAL INGUINAL- CHARISSE (WRVU 6.36) MODIFIER MESH,BARD,3D MAX REG Patient Active Problem List Diagnosis ??? Splinter ??? Bunion ??? Primary insomnia ??? Basal cell carcinoma ??? History of squamous cell carcinoma ??? Actinic keratosis ??? Diverticulitis ??? Preventative health care Immunization History Administered Date(s) Administered ??? Influenza Whole 09/13/2005, 10/03/2006, 11/12/2009, 09/12/2010 ??? Pneumococcal Polyvalent 23 01/08/2012 ??? Td 11/14/2005 no shingles. Got flu shot 2011 PSA/Lipids - as in problem Colonoscopy - 2009 - normal. But new diverticulitis. Advanced directives - need copy of advanced directives ??? Vocal cord paralysis ??? Dysphagia, unspecified(787.20) ??? S/P thyroidectomy ??? Anxiety ??? Retrosternal goiter ??? Post-nasal drip ??? Inguinal hernia recurrent unilateral Left recurrent inguinal hernia ??? Multinodular goiter Lt substernal hot nodules->I-131 Rx --U/S 07/21: two nodules are benign in appearance 2008 --07/21: sTSH-0.12 -> 0.01 (02/28/10) with slightly high FT4 1.79 and normal T3 at 140 -I-123 scan & uptake (03/31/10) showed MNG with hot nodules in Lt lower pole/ substernal => s/p RODRIGUEZ therapy 30 mCi on 04/01/10 & 2nd RODRIGUEZ Rx on 07/26/10 12/20/10: TSH 1.09, FT4 1.15 November 2011 - s/p thyroidectomy ??? Pancreatic cyst --seen on CT scans --CT a/p Oct 2011 - stable 10mm lesion --recommended MRi Oct 2011 ??? Dyslipidemia --02/2009: HDL-56, TG-68, LDL-81, TC-146. --07/2009: TC- 124, TG-89, HDL-66, LDL-124. --09/2009: TC 162, TG 71, LDL 81. On statin --09/2010: LDL 103, TG 75, HDL 72 ??? GERD (gastroesophageal reflux disease) Barium swallow, EGD 2011 ??? Hypertension ??? Impaired fasting glucose ??? S/P mitral valve repair --Echocardiogram 2008 - mild insufficiency ??? Osteoarthritis # Knees --X-rays on 08/16/09, 08/25/09: b/l obliteration of the medial compartment. # DJD spine. --X-ray + MRI: mild b/l osteoarthritic facet hypertrophy L5-S1 --mild DJD at L3-L4 and L4-L5. ??? Prostate cancer ??? Lung cancer --01/27/2010: Nodule on chest x-ray. --01/04/2010: CT chest - bronchoalveolar carcinoma. --01/13/2010: CT guided lung biopsy --01/25/2010: PET scan - negative other than lesion. 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 --01/2010: Pulmonary function test - moderate obstruction. --02/2010: RLL lobectomy. invasive adenocarcinoma with peripheral LIANET features. 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 [id number]; KRAS negative, EGFR negative --09/2010: CT scan - normal --02/2011: CT scan --09/2011: CT scan - negative annual CT's afterwards Past Medical History: Diagnosis Date ??? Arthritis knee replacement right ??? Aspiration into lower respiratory tract 05/06/2013 ??? Cancer lung 2009 ??? Colon polyps ??? Difficulty in swallowing ??? Dry mouth ??? Dyslipidemia ??? GERD (gastroesophageal reflux disease) ??? Heart valve disease I have had surgery here at [facility] for a valve repair ??? Hypertension ??? Inguinal hernia left recurrent ??? Lung cancer ??? Multinodular goiter ??? Pancreatic cyst ??? Prostate cancer s/p XRT ??? Skin cancer 07/2013 squamous cell ??? Status post radiation therapy for prostate Past Surgical History: Procedure Laterality Date ??? [...] MONITORING, SETUP performed by FRANK MAC at [facility] MAIN OR ??? PRO COLONOSCOPY, REMV LESN, SNARE 01/06/2013 COLONOSCOPY, POLYPECTOMY, REMOVAL LESION BY SNARE performed by Josh Jeffery MD at [facility] ENDOSCOPY ??? PRO REPAIR RECURR INGUIN KIRAN, REDUCIBL 03/10/2011 HERNIA REPAIR, INGUINAL, RECURRENT performed by NOREEN BOWIE at [facility] MAIN OR ??? PRO THYROIDECTOMY=SUBSTERNAL, TRANSCERV 11/30/2011 THYROIDECTOMY, INCL. SUBSTERNAL, CERVICAL APPROACH performed by FRANK MAC at [facility] MAIN OR ??? PRO TOTAL KNEE ARTHROPLASTY 06/19/2012 @TOTAL KNEE ARTHROPLASTY performed by ADAM CARRERO at [facility] OR ??? ROTATOR CUFF REPAIR 2013 ??? UMBILICAL HERNIA REPAIR ??? UPPER GI ENDOSCOPY, EXAM 01/29/2012 UPPER GI ENDOSCOPY performed by VICKI SON at [facility] ENDOSCOPY Social History Tobacco Use ??? Smoking status: Never Smoker ??? Smokeless tobacco: Never Used Substance Use Topics ??? Alcohol use: Never Comment: RARE Social History Substance and Sexual Activity Drug Use Never Allergies Allergen Reactions ??? Cyclobenzaprine Urinary retention, xerostomia ??? Lactose Other (See Comments) Sneezing Medications: MAR and/or home medications have been reviewed. Physical Exam: No data found. There is no height or weight on file to calculate BMI. Airway Assessment: Mallampati: III Cardiovascular Assessment: Rhythm: regular Pulmonary Assessment: unlabored breathing Dental Assessment: Misc Assessment: Anesthesia Plan: ASA 3 general, with a(n) intravenous induction 80 yo male with hypothyroid, s/p MVR (most recent echo 2018 reassuring), and vocal cord paralysis presents for bilateral inguinal hernia repair. Plan GETA with standard ASA monitors and adequate IV access. Region - Other Informed Consent: Plan discussed with SEWER AND INSPECTOR and attending. PAT Clinic Note documented in this encounter Plan of Treatment Upcoming Encounters Date Type Specialty Care Team Description 10/11/2022 Office Visit Dermatology Virgilio Mckeon MD [facility] DR CHRISTIANO HENSON-DERMAT OLOGY [place], [place] [address] (Leroy bhatia) 10/16/2022 Office Visit Otolaryngology Frank Buchanan MD [facility] OTOLARYNGOLOGY D EPT. [place], [place] [address] (Leroy bhatia) 11/29/2022 Appointment Hematology and Oncology 11/29/2022 Office Visit Radiation Oncology Emerald Leyva APRN [facility] RADIATION ONCCESAR GY [place], [place] [address] (Leroy bhatia) documented as of this encounter Visit Diagnoses Not on filedocumented in this encounter Administered Medications Inactive Administered Medications - up to 3 most recent administrations Medication Order MAR Action Action Date Dose Rate Site ceFAZolin (Ancef) 2 g in dextrose 5% Given 10/27/2020 8:30 AM ES T 2 g 100 mL infusion 2 g, Intravenous, EVERY 3 HOURS, 1 dose, First dose on Sun10/27/20 at 0800, Administer over 30 Minutes, Intra-Operative (Intra-Procedure), Indication for (Active or Suspected): Prophylaxis ePHEDrine (pf) (5 mg/mL) multi-dose inje ction Given 10/27/2020 9:38 AM EST 2.5 mg PRN, Starting on Sun10/27/20 at 0908, Until Sun10/27/20 at 1052, Anesthesia Intra-op, Routine Given 10/27/2020 9:22 AM EST 2.5 mg Given 10/27/2020 9:21 AM EST 2.5 mg fentaNYL (pf) (50 mcg/mL) multi-dose Given 10/27/2020 9:00 AM ES T 25 mcg injection PRN, Starting on Sun10/27/20 at 0828, Until Sun10/27/20 at 1052, Anesthesia Intra-op, Routine Given 10/27/2020 8:28 AM EST 25 mcg glycopyrrolate (Robinul) (0.2 mg/mL) Given 10/27/2020 9:08 AM ES T 0.1 mg multi-dose injection PRN, Starting on Sun10/27/20 at 0844, Until Sun10/27/20 at 1052, Anesthesia Intra-op, Routine Given 10/27/2020 9:05 AM EST 0.1 mg Given 10/27/2020 8:48 AM EST 0.1 mg ondansetron (pf) (Zofran) (2 mg/mL) inje ction Given 10/27/2020 10:25 AM EST 4 mg PRN, Starting on Sun10/27/20 at 1025, Until Sun10/27/20 at 1052, Anesthesia Intra-op, Routine propofoL (Diprivan) 10 mg/mL bolus injection Given 0 8:33 AM EST 50 mg (Anesthesia) PRN, Starting on Sun10/27/20 at 0830, Until Sun10/27/20 at 1052, Anesthesia Intra-op Given 10/27/2020 8:31 AM EST 50 mg Given 10/27/2020 8:30 AM EST 100 mg rocuronium (Zemuron) (10 mg/mL) multi-dose Given 10/27/2020 8:31 AM EST 80 mg injection PRN, Starting on Sun10/27/20 at 0831, Until Sun10/27/20 at 1052, Anesthesia Intra-op, Routine sugammadex (Bridion) 100 mg/mL injection Given 10/27/2020 10:36 AM EST 150 mg PRN, Starting on Sun10/27/20 at 1036, Until Sun10/27/20 at 1052, Anesthesia Intra-op, Routine documented in this encounter Care Teams Qc Lab Technician Relationship Specialty Start Date End Date Dexter Pereira MD PCP - General Internal Medicine 06/21/20 11/20/21 [address] [place] [address] documented as of this encounter
--- OUTSIDE RECORDS SUMMARY | 2022-10-09 16:12 | XMS_ITS | Encounter Summary ---
:1940 [place] [address] Care Team Providers Name Role Phone Fabiano Celaya MD Primary Care Provider Encounter Details Date Type Department Care Team Description 05/02/2022 Anesthesia Event Main Operating Room Jhonatan Jeronimo MD [facility] [place] [address] [place] [address] [phone] Anesthesia Record Procedure Summary Procedure Name Responsible Anesthesia Start Anesthesia Stop Anesthesiologist Time Time LARYNGOSCOPY WITH Jhonatan Colvin MD 05/02/22 0726 05/02/22 0 803 VOCAL CORD INJECTION (WRVU 3.86) (Left) Events Date Time Event Comment 05/02/2022 0726 AN Verify 0726 Start 0726 An Start Data 0731 An Induction 0737 Anesthesia Ready 0754 an stop data 0803 Recovery or ICU Handoff Patient care was transferred to the destination unit staff after review of the patient's medica l history, current anesthetic/surgi janae status and plan, according to the Provider Handoff Checklist. 0803 Stop 0834 Name Total Propofol 100 mg Rocuronium 40 mg Ondansetron 4 mg Dexamethasone 8 mg Propofol INF 168.81 mg Sugammadex 200 mg Agents Name O2 Air N2O Blood No blood administrations on file. Lines, Drains, and Airways Type Details Placement Removal Incision 05/02/22; 0743; Left; throat 05/02/22 0743 by Kamar armando, (left vocal cord injection) Jerod Funes RN Incision 11/30/11; 1556; neck; 11/30/11 1556 by 07/10/22 1715 by 07/10/22 (LDA cleanup Lodge[place]Amita RN Mu ller, Dierdre L utility RA#[id number]); 1715 (LDA cleanup utility RA#[id number]) Incision 06/19/12; knee; 07/10/22 06/19/12 0000 by Annie chisholm, 07/10/22 1715 by (LDA cleanup utility SHAWNA Shields Die rdre L RA#[id number]); 1715 (LDA cleanup utility RA#[id number]) Incision 10/27/20; 0852; abdomen; 10/27/20 0852 by Bobo toro, 07/10/22 1715 by laparoscopic punctures SHAWNA Millan D ierdre L (specify) (3 trocar sites); 07/10/22 (LDA cleanup utility RA#[id number]); 1715 (LDA cleanup utility RA#[id number]) PIV 05/02/22; 0715; cephalic 05/02/22 0715 by Michael , 05/02/22 0840 by vein (lateral side of arm), SHAWNA Slade Tammie L, RN right; [id number]-[id number] catheter system; Anatomical Landmarks; 20 gauge, 1 in length; GITA; distraction, intradermal injection, tolerated well, appears comfortable; 05/02/22; 0840 documented in this encounter Social History Tobacco Use Types Packs/Day Years Used Date Smoking Tobacco: Never Smokeless Tobacco: Never Alcohol Use Standard Drinks/Week Comments Never 0 (1 standard drink = 0.6 oz pure alcoho l) RARE Sex Assigned at Date Recorded Not on file documented as of this encounter OR Notes Anesthesia Postprocedure Evaluation - Bing Mejia MD - 05/02/2022 8:04 AM EDT Department of Anesthesiology Post-procedure Note Patient: Alfredito Mina Procedure Summary Date: 05/02/22 Room / Location: [place] [address] [facility] MAIN OR Anesthesia Start: 725 Anesthesia Stop: 802 Procedure: LARYNGOSCOPY WITH VOCAL CORD INJECTION (WRVU 3.86) (Left ) Diagnosis: Vocal cord paralysis (LEFT vocal cord paralysis) Surgeons: Ramin Buchanan MD Responsible Provider: Jhonatan Colvin MD Anesthesia Type: general ASA Status: 3 All Anesthesia Providers: Anesthesiologist: Jhonatan Colvin MD [place] Tender: Bing Mejia MD Vitals Value Taken Time BP 155/77 05/02/22 0801 Temp 36.2 ??C (97.2 ??F) 05/02/22 0800 Pulse Resp 18 05/02/22 0800 SpO2 100 % 05/02/22 0803 Pain Level Vitals shown include unvalidated device data. Patient Location: PACU/[facility] Level of Consciousness: Conscious but Sleepy Pain Management: Satisfactory Analgesia PONV: None Cardiovascular Status: At Baseline and Hemodynamically Stable Respiratory Status: At Baseline and Supplemental O2 (NC or FM) Postoperative Fluid Status: Intravascular EUvolemia Possible Anesthetic Complications: NONE apparent at time of evaluation Final Primary Anesthesia Type: General (The anesthetic type performed was the same as planned.) Comments: Bing Mejia MD Anesthesia Preprocedure Evaluation - Bing Mejia MD - 05/01/2022 4:44 PM EDT Images from the original note were not included. Pre-Anesthesia Evaluation for: Alfredito Mina a 81 y.o. male. Procedure(s): LARYNGOSCOPY WITH VOCAL CORD INJECTION (WRVU 3.86) Patient Active Problem List Diagnosis Date Noted ??? S/P bilateral inguinal hernia repair, follow-up exam 11/28/2020 ??? Splinter 10/17/2016 ??? Bunion 10/17/2016 ??? 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 Basal cell carcinoma 12/08/2014 ??? History of squamous cell carcinoma 08/08/2013 ??? Actinic keratosis 08/08/2013 ??? Diverticulitis 10/29/2012 ??? Preventative health care 09/18/2012 ??? Vocal cord paralysis 05/02/2012 ??? Dysphagia, unspecified(787.20) 01/22/2012 ??? S/P thyroidectomy 01/08/2012 ??? Anxiety 10/30/2011 ??? 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 Post-nasal drip 08/28/2011 ??? Inguinal hernia recurrent unilateral 02/14/2011 ??? Multinodular goiter ??? Pancreatic cyst 09/12/2010 ??? Dyslipidemia ??? GERD (gastroesophageal reflux disease) ??? Hypertension ??? Impaired fasting glucose ??? S/P mitral valve repair ??? Osteoarthritis ??? Prostate cancer ??? Lung cancer 12/13/2009 Past Medical History: Diagnosis Date ??? Arthritis knee replacement right ??? Aspiration into lower respiratory tract 05/06/2013 ??? Cancer lung 2009 ??? Colon polyps ??? Difficulty in swallowing ??? Dry mouth ??? Dyslipidemia ??? GERD (gastroesophageal reflux disease) ??? Heart valve disease I have had surgery here at [facility] for a valve repair ??? Hypertension ??? [...] MONITORING, SETUP performed by FRANK MAC at [facility] OR ??? PRO COLONOSCOPY, REMV LESN, SNARE 01/06/2013 COLONOSCOPY, POLYPECTOMY, REMOVAL LESION BY SNARE performed by Josh Jeffery MD at [facility] ENDOSCOPY ??? PRO LAP, INGUINAL HERNIA REPR, INITIAL Bilateral 10/27/2020 LAPAROSCOPIC HERNIA REPAIR, INITIAL INGUINAL- CHARISSE (WRVU 6.36) performed by Dulce Osborne MD at [facility] OR ??? PRO REPAIR RECURR INGUIN KIRAN, REDUCIBL 03/10/2011 HERNIA REPAIR, INGUINAL, RECURRENT performed by NOREEN BOWIE at [facility] OR ??? PRO THYROIDECTOMY=SUBSTERNAL, TRANSCERV 11/30/2011 THYROIDECTOMY, INCL. SUBSTERNAL, CERVICAL APPROACH performed by FRANK MAC at [facility] OR ??? PRO TOTAL KNEE ARTHROPLASTY 06/19/2012 @TOTAL KNEE ARTHROPLASTY performed by ADAM CARRERO at [facility] OR ??? ROTATOR CUFF REPAIR 2013 ??? UMBILICAL HERNIA REPAIR ??? UPPER GI ENDOSCOPY, EXAM 01/29/2012 UPPER GI ENDOSCOPY performed by VICKI SON at [facility] ENDOSCOPY Social History Tobacco Use ??? Smoking status: Never Smoker ??? Smokeless tobacco: Never Used Substance Use Topics ??? Alcohol use: Never Comment: RARE Social History Substance and Sexual Activity Drug Use Never Allergies Allergen Reactions ??? Cyclobenzaprine Urinary retention, xerostomia ??? Codeine ??? Lactose Other (See Comments) Sneezing Medications: MAR and/or home medications have been reviewed. Physical Exam: Preprocedure Vitals Current as of 05/01/22 1644 No BP, pulse, respiration, SpO2, or temperature recorded. Height: 162.6 cm (5' 4) (03/06/22) Weight: 67.7 kg (149 lb 3.2 oz) (03/06/22) BMI: 25.61 IBW: 59.2 kg (130 lb 9.5 oz) Airway Assessment: Mallampati: II TM distance: >3 FB Neck ROM: full Cardiovascular Assessment: Rhythm: regular Rate: normal Pulmonary Assessment: unlabored breathing Dental Assessment: Misc Assessment: IV access: Peripheral line Last Filed Perioperative Cognitive Screening Value Time User AD8 Total Score: 0 08/19/2020 4:00 PM Madison Lyn RN Anesthesia Plan: ASA 3 general, with a(n) intravenous induction Alfredito Mina is a 81 y.o. male with vocal cord paralysis s/p thyroidectomy presenting for DLwith vocal cord injection. PMHx: GERD, HTN (on lasix), s/p mitral valve repair, opioid use (on tramadol 50 mg nightly), s/p R partial lobectomy (2009), stable pancreatic cancer, depression/anxiety, vocal cord paralysis s/p thyroidectomy, s/p BL inguinal hernia repair BMI 22.8, Wt 66.2 kg, non-smoker -- Cyclobenzaprine - Urinary retention, xerostomia -- Codeine - no further details -- Lactose -- Sneezing NPO adequate. No other recent illnesses/fevers. Activity tolerance: METS>4. Anesthesia Hx: Past airway: Mac4, Grade 1 view, 8.0 ETT. No prior issues with anesthesia. Cardiac: EKG 01/2020: sinus bradycardia with first degree AV block TTE 08/2018: EF 67%, LV with normal function and size, mitral leaflets appear normal +1/4 MR, moderate LA enlargement Labs: no recent labs Plan is for GA with mask ventilation, apneic look, jet ventilation as needed, standard ASA monitors,and adequate venous access. Region - Other Informed Consent: Anesthetic plan and risks discussed with patient. Plan discussed with resident and attending. Anesthesia Screening Bing Mejia MD 05/01/2022 documented in this encounter Plan of Treatment Upcoming Encounters Date Type Specialty Care Team Description 10/11/2022 Office Visit Dermatology Virgilio Mckeon MD [facility] DR CHRISTIANO HENSON-DERMAT OLOGY [place], [place] [address] (Wo rk) 10/16/2022 Office Visit Otolaryngology Frank Buchanan MD [facility] OTOLARYNGOLOGY D EPT. [place], [place] [address] (Wo rk) 11/29/2022 Appointment Hematology and Oncology 11/29/2022 Office Visit Radiation Oncology Emerald Leyva APRN [facility] [address] RYNE NELSON [place], [place] [address] (Wo rk) documented as of this encounter Visit Diagnoses Not on filedocumented in this encounter Administered Medications Inactive Administered Medications - up to 3 most recent administrations Medication Order MAR Action Action Date Dose Rate Site dexAMETHasone (Decadron) injection Given 05/02/2022 7:31 AM EDT 8 mg Intravenous, PRN, Starting on Sun05/02/22 at 0731, Until Sun05/02/22 at 0803, Anesthesia Intra-op, Routine ondansetron (pf) (Zofran) (2 mg/mL) inje ction Given 05/02/2022 7:48 AM EDT 4 mg Intravenous, PRN, Starting on Sun05/02/22 at 0748, Until Sun05/02/22 at 0803, Anesthesia Intra-op, Routine propofoL (Diprivan) (10 mg/mL) New Bag 05/02/2022 7:31 AM 150 mcg/kg/min 59.58 mL/hr infusion EDT Intravenous, CONTINUOUS PRN, Starting on Sun05/02/22 at 0731, Until Sun05/02/22 at 0803, Anesthesia Intra-op, Routine propofoL (Diprivan) 10 mg/mL bolus injection Given 7:41 AM EDT 20 mg (Anesthesia) Intravenous, PRN, Starting on Sun05/02/22 at 0735, Until Sun05/02/22 at 0803, Anesthesia Intra-op Given 05/02/2022 7:31 AM EDT 80 mg rocuronium (Zemuron) (10 mg/mL) multi-dose Given 05/02/2022 7:35 AM EDT 40 mg injection Intravenous, PRN, Starting on Sun05/02/22 at 0735, Until Sun05/02/22 at 0803, Anesthesia Intra-op, Routine sugammadex (Bridion) 100 mg/mL injection Given 05/02/2022 7:47 AM EDT 200 mg Intravenous, PRN, Starting on Sun05/02/22 at 0747, Until Sun05/02/22 at 0803, Anesthesia Intra-op, Routine documented in this encounter Care Teams E Commerce Merchant Relationship Specialty Start Date End Date Fabiano Celaya MD PCP - General Emergency Medicine 11/21/21 [address] [place] [address] documented as of this encounter
--- OUTSIDE RECORDS SUMMARY | 2022-10-09 16:12 | XMS_ITS | Encounter Summary ---
:1940 Author Organization [facility] Address [facility] [place] [address] Care Team Providers Name Role Phone Dexter Pereira MD Primary Care Provider Reason for Visit Reason Comments Follow-up Encounter Details Date Type Department Care Team Description 11/25/2020 Office Visit General Surgery at [facility], Dulce Velez, S/P b ilateral inguinal [facility] hernia repair, [facility] low-up exam Drive [address] [place] GENERAL SURGERY [address] [place] [address] [phone] Social History Tobacco Use Types Packs/Day Years Used Date Smoking Tobacco: Never Smokeless Tobacco: Never Alcohol Use Standard Drinks/Week Comments Never 0 (1 standard drink = 0.6 oz pure alcoho l) RARE Sex Assigned at Date Recorded Not on file documented as of this encounter Last Filed Vital Signs Vital Sign Reading Time Taken Comments Blood Pressure - - Pulse - - Temperature 36.3 ??C (97.4 ??F) 11/25/2020 1:33 PM EST Respiratory Rate - - Oxygen Saturation - - Inhaled Oxygen Concentration - - Weight 63.6 kg (140 lb 3.2 oz) 11/25/2020 1:33 PM EST Height 170.2 cm (5' 7.01) 11/25/2020 1:33 PM EST Body Mass Index 21.95 11/25/2020 1:33 PM EST documented in this encounter Progress Notes Dulce Osborne MD - 11/25/2020 1:45 PM EST Alfredito Mina returns one month following laparoscopic bilateral inguinal hernia repair. Thisprocedure went well and he has done well since. He is recovering well, more pain and induration on right than left but starting to resume all of his usual activities. On physical examination, his incision is well healed. There are no signs of recurrent hernias. Overall, he is doing very well. He knowsto contact me if further problems develop. documented in this encounter Plan of Treatment Upcoming Encounters Date Type Specialty Care Team Description 10/11/2022 Office Visit Dermatology Virgilio Mckeon MD [facility] DR CHRISTIANO HENSON-DERMAT OLOGY [place], [place] [address] (Wo rk) 10/16/2022 Office Visit Otolaryngology Frank Buchanan MD [facility] OTOLARYNGOLOGY Sarah EPT. [place], [place] [address] (Wo rk) 11/29/2022 Appointment Hematology and Oncology 11/29/2022 Office Visit Radiation Oncology Emerald Leyva APRN [facility] RADIATION ONCCESAR GY [place], [place] [address] (Wo rk) documented as of this encounter Visit Diagnoses Diagnosis S/P bilateral inguinal hernia repair, fo llow-up exam Follow-up examination, following other s urgery documented in this encounter Care Teams Fill Plant Operator Relationship Specialty Start Date End Date Dexter Pereira MD PCP - General Internal Medicine 06/21/20 11/20/21 [address] [place] [address] documented as of this encounter
--- OUTSIDE RECORDS SUMMARY | 2022-10-09 16:12 | XMS_ITS | Encounter Summary ---
:1940 Author Organization [facility] [place] [address] Care Team Providers Name Role Phone Fabiano Celaya MD Primary Care Provider Reason for Referral Diagnostic Test (Routine) - Closed Specialty Diagnoses / Procedures Referred By Contact Refer red To Contact Radiology Diagnoses S/P lobectomy of lung Primary adenocarcinoma of right lung Dexter Cote [facility] Rad Ct Scan Procedures CT Chest wo Contrast (Generic) [facility] [place] [address] [place] [address] Referral ID Status Reason Start Date Expiration Date Visits V isits Requested Authorized [id number] Closed Specialty 06/27/2021 12/28/2022 1 1 Service Requested Reason for Visit Diagnostic Test (Routine) - Closed Specialty Diagnoses / Procedures Referred By Contact Refer red To Contact Radiology Diagnoses S/P lobectomy of lung Primary adenocarcinoma of right lung Dexter Cote [facility] Rad [facility] Scan Procedures CT Chest wo Contrast (Generic) [facility] [place] [address] [place] [address] Referral ID Status Reason Start Date Expiration Date Visits V isits Requested Authorized [id number] Closed Specialty 06/27/2021 12/28/2022 1 1 Service Requested Encounter Details Date Type Department Care Team Description 01/11/[address] Scan at [facility] [place], S/P lobectomy of lung; [facility] Dexter Pugh MD Primary adenocarcinoma of right lung Drive [place], [place] CENTER [address] THORACIC [phone] [place] [address] Social History Tobacco Use Types Packs/Day Years Used Date Smoking Tobacco: Never Smokeless Tobacco: Never Alcohol Use Standard Drinks/Week Comments Never 0 (1 standard drink = 0.6 oz pure alcoho l) RARE Sex Assigned at Date Recorded Not on file documented as of this encounter Medications at Time of Discharge Medication Sig Dispensed Refills Start Date End Date Lumigan 0.01 % Drops INSTILL ONE DROP [...] 10/11/2022 Office Visit Dermatology Virgilio Mckeon MD [facility] ER DR CHRISTIANO HENSON-DERMAT OLOGY [place], [place] [address] (Wo rk) 10/16/2022 Office Visit Otolaryngology Frank Buchanan MD [facility] ER OTOLARYNGOLOGY Sarah EPT. [place], [place] [address] (Wo rk) 11/29/2022 Appointment Hematology and Oncology 11/29/2022 Office Visit Radiation Oncology Autumn Emeralddaya Pugh APRN [facility] RADIATION ONCCESAR [place], [place] [address] (Wo rk) documented as of this encounter Procedures Procedure Name Priority Date/Time Associated Diagnosis Comme nts CT CHEST WO Routine 01/11/2022 2:11 PM S/P lobectomy of lung Results for this CONTRAST (GENERIC) EST Primary adenocarcinoma procedure are in of right lung the results section. documented in this encounter Results CT Chest wo Contrast (Generic) (01/11/2022 2:11 PM EST) Anatomical Region Laterality Modality Chest Computed Tomography Specimen (Source) Anatomical Collection Method Collection Time Re ceived Time Location / / Volume Laterality 01/11/2022 2:27 PM EST Impressions 01/11/2022 5:01 PM EST No evidence of local recurrence or metastatic disease within the chest. Thank you for letting us participate in the care of this patient. ??If you are a health care provider and have any questi ons regarding this report, please contact the number below. ??For patients who have questions please contact the health floor care technician that requested your imaging first. ? Electronically signed by: Miriam Frances MD, [facility] ([phone]), at 01/11/2022 5:01 PM Narrative 01/11/2022 5:01 PM EST EXAMINATION: CT CHEST WO CONTRAST (GENERIC) CLINICAL HISTORY: Non-small cell lung ca ncer, post treatment, no evidence of disease hx of RLLobectomy for adenocarcinoma in 2009, please eval for changes, evidence of disease TECHNIQUE: 3.75 mm thick axial contiguou s sections were obtained through the chest via helical acquisition without in travenous contrast administration. Thin-section reconstructions as well as coronal and sagittal reformatted images were generated. COMPARISON: 06/27/2021 FINDINGS: Pulmonary parenchyma: Unchanged sequela of right lower lobectomy. No suspicious pulmonary nodule. Airways: No significant change. Pleura: No effusion. Lymph nodes: No enlargement of lymph nod es. Heart, pericardium, and great vessels: S table size of the heart. Severe coronary artery atherosclerotic calcification. Mi ld calcifications at the aortic valve level. Unchanged prominent caliber of th e central pulmonary arteries. Other mediastinal structures: No signifi cant findings. Lower neck: No significant findings. Upper abdomen: Stable left adrenal adeno ma. Body wall soft tissues: No significant f indings. Skeletal structures: No significant treviño ge. Procedure Note Miriam Mancilla MD - 2021 EXAMINATION: CT CHEST WO CONTRAST (GENER IC) CLINICAL HISTORY: Non-small cell lung ca ncer, post treatment, no evidence of disease hx of RLLobectomy for adenocarcinoma in 2009, please eval for changes, evidence of disease TECHNIQUE: 3.75 mm thick axial contiguou s sections were obtained through the chest via helical acquisition without in travenous contrast administration. Thin-section reconstructions as well as coronal and sagittal reformatted images were generated. COMPARISON: 06/27/2021 FINDINGS: Pulmonary parenchyma: Unchanged sequela of right lower lobectomy. No suspicious pulmonary nodule. Airways: No significant change. Pleura: No effusion. Lymph nodes: No enlargement of lymph nod es. Heart, pericardium, and great vessels: S table size of the heart. Severe coronary artery atherosclerotic calcification. Mi ld calcifications at the aortic valve level. Unchanged prominent caliber of th e central pulmonary arteries. Other mediastinal structures: No signifi cant findings. Lower neck: No significant findings. Upper abdomen: Stable left adrenal adeno ma. Body wall soft tissues: No significant f indings. Skeletal structures: No significant treviño ge. IMPRESSION No evidence of local recurrence or metas tatic disease within the chest. Thank you for letting us participate in the care of this patient. If you are a health care provider and have any questi ons regarding this report, please contact the number below. For patients w ho have questions please contact the health floor care technician that requested your imaging first. Electronically signed by: Miriam Frances MD, [facility] ([phone]), at 01/11/2022 5:01 PM Dexter Cote MD IMG CT ORDERABLES documented in this encounter Visit Diagnoses Diagnosis S/P lobectomy of lung Other postprocedural status Primary adenocarcinoma of right lung documented in this encounter Care Teams Tree Surgeon Helper Relationship Specialty Start Date End Date Fabiano Celaya MD PCP - General Emergency Medicine 11/21/21 [address] [place] [address] documented as of this encounter
--- OUTSIDE RECORDS SUMMARY | 2022-10-09 16:12 | XMS_ITS | Encounter Summary ---
:1940 Author Organization [facility] [place] [address] Care Team Providers Name Role Phone Dexter Pereira MD Primary Care Provider Reason for Referral Diagnostic Test (Routine) - Closed Specialty Diagnoses / Procedures Referred By Contact Refer red To Contact Radiology Diagnoses S/P lobectomy of lung Primary adenocarcinoma of right lung Dexter Matute, [facility] Rad Ct Scan Procedures CT Chest wo Contrast (Generic) [facility] [place] [address] [place] [address] Referral ID Status Reason Start Date Expiration Date Visits V isits Requested Authorized [id number] Closed Specialty 06/27/2021 12/28/2022 1 1 Service Requested Consultation (Urgent) - Closed Specialty Diagnoses / Procedures Referred By Contact Refer red To Contact Dermatology Diagnoses Skin spots, red Dexter Matute, [facility] Dermatology [address] [place] [address] [place] [address] Referral ID Status Reason Start Date Expiration Date Visits V isits Requested Authorized [id number] Closed Consult, 06/27/2021 06/27/2022 1 1 Test & Treat Consultation (Routine) - Closed Specialty Diagnoses / Procedures Referred By Contact Refer red To Contact Otolaryngology Diagnoses Vocal cord paralysis Dexter Matute [facility] [place] [address] [place] [address] Referral ID Status Reason Start Date Expiration Date Visits V isits Requested Authorized [id number] Closed Consult, 06/27/2021 06/27/2022 1 1 Test & Treat Reason for Visit Reason Comments Follow-up Encounter Details Date Type Department Care Team Description 06/27/2021 Office Visit Thor[facility] [place], S/P lobe ctomy of lung; [facility] Dexter Pugh MD Primary adenocarcinoma of right lung; [facility] cor d paralysis; [facility] DR Praneeth de leon, [place], [place] THORACIC SURGERY [address] [place] [address] [phone] Social History Tobacco Use Types Packs/Day Years Used Date Smoking Tobacco: Never Smokeless Tobacco: Never Alcohol Use Standard Drinks/Week Comments Never 0 (1 standard drink = 0.6 oz pure alcoho l) RARE Sex Assigned at Date Recorded Not on file documented as of this encounter Last Filed Vital Signs Vital Sign Reading Time Taken Comments Blood Pressure 135/80 06/27/2021 1:58 PM EDT Pulse 65 06/27/2021 1:58 PM EDT Temperature 37.1 ??C (98.8 ??F) 06/27/2021 1:58 PM EDT Respiratory Rate 16 06/27/2021 1:58 PM EDT Oxygen Saturation 97% 06/27/2021 1:58 PM EDT Inhaled Oxygen Concentration - - Weight 65 kg (143 lb 3.2 oz) 06/27/2021 1:58 PM EDT wit h shoes Height 162 cm (5' 3.78) 06/27/2021 1:58 PM EDT with sh oes Body Mass Index 24.75 06/27/2021 1:58 PM EDT documented in this encounter Patient Instructions Patient InstructionsSalome Schwarz RN - 06/27/2021 2:30 PM EDT Thank you for visiting Dr. Matute in clinic 06/27/21 Dr. Matute would like to see you back in clinic in 1 year with a recent CT scan of your chest without IV contrast. You will receive a letter in the mail/ receive a call to schedule this appointment. A Referral to ENT and Dermatology have been sent and they will call you with your appointments. ?? Exercise each day for 30 minutes or longer. Daily aerobic exercise for at least 30 minutes will help improve your endurance and improve the breathing capacity of your lungs. This means that you are breathing hard, your heart is beating fast and that you are sweating. Examples of this include walking, biking, swimming, and using a treadmill or stationary bike. Please call Thoracic surgery at with any questions or concerns. documented in this encounter Progress Notes Subhash Mendiola PA - 06/27/2021 2:30 PM EDT Thoracic Surgery Outpatient Consultation Note MD Subhash Alegria PA-C [place] [address] Reason for Visit: Follow up for surveillance HPI: Alfredito Mina is a 81 y.o. male who is s/p thoracoscopic right lower lobectomy on 2009 for adenocarcinoma of the lung (1.1 cm). He was last seen on 06/21/2020, at which time plan was for continued surveillance with CT Chest in 1 year. Since then, patient has been feeling well overall. He had bilateral inguinal hernia repair 10/27/2020. Today, patient reports continued hoarse voice, difficulty swallowing, feeling like things go down the wrong way then I cough them out, also has chronic cough productive of clear phlegm, sx have been consistent since total thyroidectomy in 2012, has seen ENT for this in the past (Dr. Buchanan in 2016) and laryngoscopy with injection was planned, however patient did not move forward with any procedure. Patient also reports new red spots on his abdomen. Patient denies fevers, chills, sweats, weight loss, chest pain, palpitations, SOB, difficulty breathing,hemoptysis, nausea, vomiting, abdominal pain, constipation, and diarrhea. Physical Exam: Patient Vitals for the past 24 hrs: Temp Pulse Resp BP SpO2 06/27/21 1358 37.1 ??C (98.8 ??F) 65 16 135/80 97 % Gen: NAD, pleasant, sitting up in chair, hoarse-sounding voice HEENT: normocephalic, atraumatic, EOMI, sclerae anicteric Neck: supple, trachea midline Card: RRR, no M/R/G appreciated Pulm: CTAB, no wheeze/ronchi/rales appreciated, non-labored breathing on RA Abd: soft, NT, ND, several small, round, raised reddish lesions Ext: warm, dry, no edema Neuro: A&Ox3, nonfocal, conversant Imaging: CT Chest I- (06/27/2021): FINDINGS: Pulmonary parenchyma: Stable. Post RIGHT lower lobectomy. Postsurgical site scarring, stable No new pulmonary nodules. Airways: No endobronchial lesions Pleura: No pleural effusions Lymph nodes: no adenopathy Heart, pericardium, and great vessels: No pericardial effusion. Other mediastinal structures: No adenopathy Lower neck: No significant findings. Upper abdomen: Stable 3.1 cm LEFT adrenal gland nodule. The RIGHT adrenal gland is normal. Increased size of RIGHT upper pole simple cyst, measuring 4.5 x 5.9 cm. Body wall soft tissues: No significant findings. Skeletal structures: No suspicious osseous findings ?? IMPRESSION ?? Stable lungs. No evidence of thoracic metastasis. Assessment: Alfredito Mina is a 81 y.o. male who is s/p thoracoscopic right lower lobectomy on 2009 for adenocarcinoma of the lung (1.1 cm). Plan as outlined below: Plan: 1. CT Chest I- in 12 months for continued surveillance 2. Referral to ENT regarding vocal cord paralysis 3. Patient requested referral to Dermatology regarding red spots on abdomen, these appear to possibly be consistent with loo angiomas 4. Recommend minimum of 30 minutes of exercise daily 5. Please call with any questions or concerns at any time MAX Luna 06/27/2021 Thoracic Surgery [facility] Dexter Matute MD - 06/27/2021 2:30 PM EDT Thoracic surgery follow-up visit I saw and examined Mr. Mina with MAX Dwyer, and agree with his findings, assessment and plan. In brief: Chief complaint: Surveillance following lung cancer resection History of present illness: Mr. Mina is an 81-year-old man who underwent thoracoscopic right lower lobectomy in 2009 for adenocarcinoma of the lung. I last saw him on June 21, 2020, at which time a plan was made for continued surveillance. He has done well since that time. He underwent successful bilateral inguinal hernia repair on October 27, 2020. 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 Current Outpatient Medications on File Prior to Visit Medication Sig Dispense Refill ??? levothyroxine (Synthroid) 100 mcg Tablet Take [...] needed for Pain. (Patientnot taking: Reported on 06/27/2021) 10 tablet 0 ??? furosemide (Lasix) 40 mg Tablet Take 20-40 mg by mouth daily. No current facility-administered medications on file prior to visit. BP 135/80 (Patient Position: Sitting) Pulse 65 Temp 37.1 ??C (98.8 ??F) (Temporal) Resp 16 Ht 162 cm (5' 3.78) Comment: with shoes Wt 65 kg (143 lb 3.2 oz) Comment: with shoes SpO2 97% BMI 24.75 kg/m?? Physical exam: He appears well. He has no neurologic deficits and no palpable adenopathy. There is ascattered macular rash on the abdomen Imaging: A noncontrast chest CT today demonstrated no evidence of new or recurrent disease Assessment: 81-year-old man now 11 years removed from a thoracoscopic right lower lobectomy for adenocarcinoma of the lung. He has no evidence of recurrent disease. He will reengage with the ENT service for his vocal cord paralysis, and we placed a referral to dermatology for the rash on his abdomen. From an oncologic standpoint, we will continue standard surveillance and he will return in 1 year fora noncontrast chest CT. Plan: Return to clinic in 1 year for noncontrast chest CT DEXTER MATUTE MD documented in this encounter Plan of Treatment Upcoming Encounters Date Type Specialty Care Team Description 10/11/2022 Office Visit Dermatology Virgilio Mckeon MD [facility] DR CHRISTIANO HENSON[place]MAT [place], [place] [address] (Leroy bhatia) 10/16/2022 Office Visit Otolaryngology Frank Buchanan MD [facility] OTOLARYNGOLOGY Sarah [address]PT[address] [place], [place] [address] (Leroy bhatia) 11/29/2022 Appointment Hematology and Oncology 11/29/2022 Office Visit Radiation Oncology Emerald Leyva APRN [facility] DR MICHELE ONCCESAR [place], [place] [address] (Leroy bhatia) Scheduled Referrals Name Type Priority Associated Order Schedule Diagnoses Referral to ENT Outpatient Referral Routine Vocal cord Order ed: paralysis 06/27/2021 Referral to Outpatient Referral Routine Skin spots, red Order ed: Dermatology 06/27/2021 documented as of this encounter Results CT Chest wo Contrast [...] who have questions please contact the health primary care nurse practitioner that requested your imaging first. ? Electronically signed by: Miriam Frances MD, [facility] ([phone]), at 01/11/2022 5:01 PM Narrative 01/11/2022 5:01 [...] ho have questions please contact the health primary care nurse practitioner that requested your imaging first. Electronically signed by: Miriam Frances MD, [facility] ([phone]), at 01/11/2022 5:01 PM Dexter Matute MD IMG CT ORDERABLES documented in this encounter Visit Diagnoses Diagnosis S/P lobectomy of lung Other postprocedural status Primary adenocarcinoma of right lung Vocal cord paralysis Paralysis of vocal cords or larynx, unsp ecified Skin spots, red Spontaneous ecchymoses S/P lobectomy of lung Other postprocedural status Primary adenocarcinoma of right lung documented in this encounter Care Teams Lead Level Designer Relationship Specialty Start Date End Date Dexter Pereira MD PCP - General Internal Medicine 06/21/20 11/20/21 [address] [place] [address] documented as of this encounter
--- OUTSIDE RECORDS SUMMARY | 2022-10-09 16:12 | XMS_ITS | Encounter Summary ---
:1940 [place] [address] Care Team Providers Name Role Phone Dexter Pereira MD Primary Care Provider Encounter Details Date Type Department Care Team Description 10/26/2020 Telephone Anesthesiology Carl Braswell MD [facility] [place] [address] ANESTHESIOLOGY DEPT [phone] [place], [place] [address] (Wo rk) Social History Tobacco Use Types Packs/Day Years Used Date Smoking Tobacco: Never Smokeless Tobacco: Never Alcohol Use Standard Drinks/Week Comments Never 0 (1 standard drink = 0.6 oz pure alcoho l) RARE Sex Assigned at Date Recorded Not on file documented as of this encounter Miscellaneous Notes Telephone Encounter - Carl Braswell MD - 10/26/2020 4:37 PM ESTSummary: Anesthesia Consent Called patient and discussed risk of vocal cord trauma with intubation during surgery. Explained that there is a risk for damage to vocal cords and causing further hoarseness and less likely permanent damage to vocal cords and surrounding structures. Patient did not fully remember how he lost his voice but thought it was due to the surgeons needing to remove all of his cancer so they removed part of his voice box. I told the patient that the anesthesiologist may use a video laryngoscope to be extra careful not to cause trama to his vocal cords and worsen what remaining function he has. I also explained the risks and benefits of anesthesia and obtained consent over the telephone. Vadim Mohan MD witnessed. Consent was uploaded into chart via [employer]. Carl Braswell MD 10/26/20 4:46 PM documented in this encounter Plan of Treatment Upcoming Encounters Date Type Specialty Care Team Description 10/11/2022 Office Visit Dermatology Virgilio Mckeon MD [facility] DR CHRISTIANO HENSON[place]DER[place], [place] [address] (Wo rk) 10/16/2022 Office Visit Otolaryngology Frank Buchanan MD [facility] OTOLARYNGOLOGY Sarah EPT. [place], [place] [address] (Wo rk) 11/29/2022 Appointment Hematology and Oncology 11/29/2022 Office Visit Radiation Oncology Emerald Leyva APRN [facility] RADIATION ONCOLO GY [place], [place] [address] (Wo rk) documented as of this encounter Visit Diagnoses Not on filedocumented in this encounter Care Teams Ultimate Hoops Scoreboard Operator Relationship Specialty Start Date End Date Dexter Pereira MD PCP - General Internal Medicine 06/21/20 11/20/21 [address] [place] [address] documented as of this encounter
--- OUTSIDE RECORDS SUMMARY | 2022-10-09 16:12 | XMS_ITS | Encounter Summary ---
:1940 Author Organization [facility] [place] [address] Care Team Providers Name Role Phone Dexter Pereira MD Primary Care Provider Reason for Visit Reason Onset Date Comments Appointment 11/10/2021 Encounter Details Date Type Department Care Team Description 11/10/2021 Telephone Otolaryngology at [facility] [place] [address] Social History Tobacco Use Types Packs/Day Years Used Date Smoking Tobacco: Never Smokeless Tobacco: Never Alcohol Use Standard Drinks/Week Comments Never 0 (1 standard drink = 0.6 oz pure alcoho l) RARE Sex Assigned at Date Recorded Not on file documented as of this encounter Miscellaneous Notes Telephone Encounter - Kenisha Pierce - 11/10/2021 4:03 PM EST Called pt at both number listed. LVM on primary number and reached pt on mobile number. Confirmed 11/[address] Buchanan from 11/14. Pt will be here for 11/28. Telephone Encounter - Alcira Messer - 11/10/2021 2:44 PM EST Called patient to cancel Sunday's visit as Dr. Buchanan is in the OR. Moved appointment to 11/28/21 not confirmed. Left message to call back to reschedule. documented in this encounter Plan of Treatment Upcoming Encounters Date Type Specialty Care Team Description 10/11/2022 Office Visit Dermatology Virgilio Mckeon MD [facility] DR CHRISTIANO HENSON-DERMAT [place] [address] (Wo rk) 10/16/2022 Office Visit Otolaryngology Frank Buchanan MD [facility] OTOLARYNGOLOGY Sarah EPT. [address] (Wo rk) 11/29/2022 Appointment Hematology and Oncology 11/29/2022 Office Visit Radiation Oncology Emerald Leyva APRN [facility] RADIATION ONCOLO GY [address] (Wo rk) documented as of this encounter Visit Diagnoses Not on filedocumented in this encounter Care Teams Jewelry Designer Relationship Specialty Start Date End Date Dexter Pereira MD PCP - General Internal Medicine 06/21/20 11/20/21 [address] [place] [address] documented as of this encounter
--- OUTSIDE RECORDS SUMMARY | 2022-10-09 16:12 | XMS_ITS | Encounter Summary ---
:1940 [place] [address] Care Team Providers Name Role Phone Dexter Pereira MD Primary Care Provider Encounter Details Date Type Department Care Team Description 10/29/2020 TH Visit Radiation Oncology at [facility] (Tele[facility]) [address] [address] RADIATION ONCOLOGY [phone] [place], [place] [address] (Wo rk) Social History Tobacco Use Types Packs/Day Years Used Date Smoking Tobacco: Never Smokeless Tobacco: Never Alcohol Use Standard Drinks/Week Comments Never 0 (1 standard drink = 0.6 oz pure alcoho l) RARE Sex Assigned at Date Recorded Not on file documented as of this encounter Patient Instructions Patient InstructionsMeLolly hernandez APRN - 10/29/2020 11:15 AM EST He will return in 1 yr with labs prior. documented in this encounter Progress Notes Lolly Benavides APRN - 10/29/2020 11:15 AM EST Phone Visit Due to the constraints of Covid-19 today's visit will be a phone visit. He also had surgery 2 days ago and is not feeling well enough to travel to the clinic. Patient ID: Alfredito Mina is a 80 y.o. male.who is in radiation oncology clinic today for regular followup. He was treated with external beam radiation therapy for prostate cancer and completed treatment 04/12/2007. He was enrolled in a clinical trial--RTOG 0126 arm 2. HPI Mr. Mina is a male who had been followed with serial PSAs. In September 2004, it was 3.8; in September 2005, 4.4; in October 2005, 4.6; on December 12, 2005, 4.7; and on July 26, 2006, it was 5.1. By report his PSA go in into a range of 5.4, and at one point the free portion was 13%. The patient, after the elevation was noted in November 2005, was put on Proscar, and at that time, the prostate was measured at what was considered 50 grams. In this interval of late November 2005, he was also having some rectal bleeding, which was believed to be due to hemorrhoids. The patient was then seen by Dr. Kiran who, on September 19, 2006, performed TRS, finding an estimated gland size of 30 grams; however, the measured size was 56 grams. Biopsies were taken and the specimen reported in [facility] pathology under session #[id number] prostate: The right lobe apex, mid, and base negative; the left apex was 3 + 3 in 40% of one core; the left mid was 3 + 4 in 50% of one core; and the left base showed a 3 + 4 in 5% in one of two cores. This information was reviewed at [facility] on October 19, 2006, and the report paralleled that given by the [facility]. The [facility] session number was [id number]. The patient was then seen by Dr. Mixon on December 26, 2005, and after review, his note indicates an IPS of 9/35. He had no difficulties with erectile dysfunction. His physical examination revealed a 30-gram prostate without nodularity, and the gland was smooth. With a PSA indicated of 5.4, a Sofy score of 4 + 3 = 7/10, staged as a T1c N0, it was considered intermediate risk with a possibility oforgan-confined disease of about 50%, seminal vesicle 8%, and lymph nodes 3%. The Martin five-year survival review was indicated at surgery at 89, radiation at 91, and brachytherapy 85. The patient was presented with treatment options, and a radical laparoscopic prostatectomy was recommended. He elected to be treated with radiation therapy and received 7920 cGy and completed treatment on 04/12/2007. Prostate Cancer Notes 09/29/2013 Date of Presentation 12/12/2005 Age at Presentation 66 years old PSA at Presentation 5.1 Presence of Symptoms at Presentation BPH Ethnicity White Result of ALBERTA normal Date of TRUS and Biopsy 09/19/2006 Volume in cc 56 [place] grade/score a+b=c 4+3=7 Total Cores 12 cores Positive cores 5 positive cores Bone Scan at Presentation -negative Date of Bone Scan 12/06/2006 Prostate confined +yes OLGA -negative SV -negative Regular Nodes -negative Distant Mets -negative Date of MRI 11/23/2006 Urinary Continence at Presentation normal Primary Therapy EBRT EBRT Date Began 02/11/2007 ERBT Total Dose (Gy) 79.2 Gy Treatment Fractions 44 fractions Elapsed Date 04/12/2007 Concurrent ADT -negative Histologic Type Adenocarcinoma Post Primary Therapy - Sukumar Date 07/11/2018 Post Primary Therapy - Sukumar PSA 0.18 Cancer history: : 1. Adenocarcinoma of the prostate. [id number], Sofy 4+3, left lobe involved. OLGA (-), PSA of 5.4 Radiation therapy detail: Target location: prostate Technique: IMRT Total dose: 7920 cGy Fraction dose: 180 cGy Dates of treatment: 02/11/2007 through 04/12/2007 Total number of fractions: 44 --- NSCLCA of the right lung. Lung, right lower lobe, lobectomy. 02/09/2010 Tumor Location: Central. Histologic Type: Adenocarcinoma, invasive, with peripheral LIANET features. *(See Note) Tumor Grade: Well differentiated. Tumor Size: 1.1 cm, gross measure. ---01/25/2010: PFT--FVC 2.50 (75%), FEV1= 1.46 (60%) --09/12/2011: Chest CT: Stable post lobectomy appearance with no findings for recurrent or new pulmonary pathology. --04/25/2013-chest XR: No acute cardiopulmonary pathology identified. No significant change from 05/20/2012. --08/11/2014--No evidence of recurrence. --11/26/2014--chest XR--negative ---09/04/2016- CT chest--No evidence of recurrent or metastatic disease or new primary lung cancer. No interval change. --11/29/2017- CT chest--no evidence of recurrent or metastatic disease. --06/30/2019--PFT--diffusing capacity normal, lung volumes normal --- Skin cancer--squamous cell--07/2013 ---skin cancer basal cell 2014 Patient Active Problem List Diagnosis Code ??? [...] E04.9 ??? Anxiety F41.9 ??? S/P thyroidectomy Z98.890 ??? Dysphagia, unspecified(787.20) R13.10 ??? Vocal cord paralysis J38.00 ??? Preventative health care Z00.00 ??? Diverticulitis K57.92 ??? History of squamous cell carcinoma Z85.89 ??? Actinic keratosis L57.0 ??? Basal cell carcinoma C44.91 ??? Primary insomnia F51.01 ??? Splinter T14.8XXA ??? Bunion M21.619 Past Surgical History: Procedure Laterality Date ??? CARDIAC SURGERY valve repair ??? CARDIAC VALVE REPLACEMENT ??? CREATED BY INTERFACE BRONCHOSCOPY; DX, HI CELL WASHING (THORACIC) Procedure Date: 02/09/2010 ??? [...] MONITORING, SETUP performed by FRANK MAC at [facility] OR ??? PRO COLONOSCOPY, REMV LESN, SNARE 01/06/2013 COLONOSCOPY, POLYPECTOMY, REMOVAL LESION BY SNARE performed by Josh Jeffery MD at [facility] ??? PRO LAP, INGUINAL HERNIA REPR, INITIAL Bilateral 10/27/2020 LAPAROSCOPIC HERNIA REPAIR, INITIAL INGUINAL- CHARISSE (WRVU 6.36) performed by Dulce Osborne MD at [facility] OR ??? PRO REPAIR RECURR INGUIN KIRAN, REDUCIBL 03/10/2011 HERNIA REPAIR, INGUINAL, RECURRENT performed by NOREEN BOWIE at [facility] OR ??? PRO THYROIDECTOMY=SUBSTERNAL, TRANSCERV 11/30/2011 THYROIDECTOMY, INCL. SUBSTERNAL, CERVICAL APPROACH performed by FRANK MAC at [facility] OR ??? PRO TOTAL KNEE ARTHROPLASTY 06/19/2012 @TOTAL KNEE ARTHROPLASTY performed by ADAM CARRERO at [facility] OR ??? ROTATOR CUFF REPAIR 2013 ??? UMBILICAL HERNIA REPAIR ??? UPPER GI ENDOSCOPY, EXAM 01/29/2012 UPPER GI ENDOSCOPY performed by VICKI SON at [facility] Allergies Allergen Reactions ??? Cyclobenzaprine Urinary retention, xerostomia ??? Lactose Other (See Comments) Sneezing Current Outpatient Medications on File Prior to Visit Medication Sig Dispense Refill ??? traMADoL (Ultram) [...] facility-administered medications on file prior to visit. Review and update of social history today Family History: Mother 2012 at age 105--she had asthma, osteoporosis. Father at age 55, smoked too much, heart problems. Brother has bone cancer not doing well. Social History: [place]. 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 Single. Five children and sevengrandkids. 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 Has been spending vora in [place]. Used to play basketball. No alcohol. He is on friendly terms with his ex- and she assists him as needed. Advance Directives: Completed. See advance care planning note. Interim History: Mr Mina reports that he is doing well at this time. 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 He does report that he just had surgery for bilateral inguinal hernias. He states that the surgery went well and he is alreadyanxious to go back to work. He denies urinary problems at this time. He is reports being pleased with his overall urinary status. He does continue with the terazosin and has found that if he misses taking it that he has increaseddiscomfort with voiding. He has no dysuria, no hematuria and no incontinence. His bowels have been moving regularly one or twice a day. He prevents constipation with the use of miralax which has been very effective. He denies BRB rectally. He denies, melena, constipation and diarrhea. He denies abdominal discomfort. Expanded Prostate Cancer Index Composite For Clinical Practice (Epic-Cp) Question 08/21/2019 ??8:35 AM EDT - Filed by Patient on 08/21/2019 Urinary function problem Small problem Urinary control Total control # of pads used per day None 5. How big a problem, if any, has each of the following been for you? Pain or burning with urination Small problem 5. How big a problem, if any, has each of the following been for you? Need to urinate frequently No problem 6. How big a problem, if any, has each of the following been for you? Increased frequency of your bowel movements No problem 6. How big a problem, if any, has each of the following been for you? Bloody stools No problem Quality of your erections Not firm enough for any sexual activity 10. How big a problem, if any, has each of the following been for you? Hot flashes or breast tenderness/enlargement Very small problem 10. How big a problem, if any, has each of the following been for you? Lack of energy No problem Urinary Incontinence Symptom Score (range: 0 - 12) 0 Urinary Irritation/Obstructive Symptom Score (range: 0 - 12) 2 Bowel Symptom Score (range: 0 - 16) 0 Vitality/Hormonal Symptom Score (range: 0 - 12) 1 Overall Prostate Cancer QOL Score (range: 0 - 60) 3 Q - Prostate Followup Survey Question 08/21/2019 ??8:36 AM EDT - Incomplete Reason for visit Follow up on existing problem(s) Incomplete emptying Not at all Frequency Less than 1 time in 5 Intermittency Not at all Urgency Not at all Weak Stream Less than 1 time in 5 Straining Not at all Nocturia 2 times Quality of life Pleased Total IPSS Score (range: 0 - 35) 4 ( Mild LUTS) Confidence, level - past 6 months Low Penetration - past 6 months Almost never or never Penetration, maintain - past 6 months Almost never or never Erection, maintain - past 6 months Slightly difficult He reports that his respiratory symptoms are stable. He denies shortness of breath, no dyspnea, + occ cough, no hemoptysis. He had a follow up Ct of the chest 05/21/2019 which was negative for lung cancer recurrence. Review of Systems Constitutional: Negative for activity change, appetite change, chills, fatigue, fever and unexpectedweight change. 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 Negative for nosebleeds. 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 Negative for visual disturbance. Respiratory: Negative. Negative for cough, chest tightness, shortness of breath and wheezing. Cardiovascular: Negative. Negative for chest pain and leg swelling. Gastrointestinal: Negative for abdominal distention, abdominal pain, anal bleeding, blood in stool, constipation, diarrhea, nausea and rectal pain. See interim history Using miralax and that is working very well Genitourinary: Negative for decreased urine volume, difficulty urinating, dysuria, enuresis, frequency, hematuria, testicular pain and urgency. See IPSS and interim history Musculoskeletal: Positive for arthralgias. Negative for neck stiffness. Skin: Has dermatology appointment in October 2019 Neurological: Negative. Negative for dizziness, weakness, light-headedness and headaches. Hematological: Negative. Psychiatric/Behavioral: Negative. Negative for sleep disturbance. The patient is not nervous/anxious. Mood positive Some forgetfulness No physical exam was done due to phone visit. Laboratory Studies: date PSA Testosterone 08/19/2020 0.2 08/21/2019 07/11/2018 0.18 6.29 04/20/2017 0.20 04/06/2016 0.20 03/17/2015 0.3 04/07/2014 0.30 09/29/2013 0.36 698 11/07/2012 1.16 396 11/29/2011 0.81 287 05/03/2011 0.97 360 12/07/2010 1.68 424 09/12/2010 1.39 06/20/2010 1.58 03/16/2010 2.27 12/14/2009 2.3 448 11/01/09 2.8 06/22/09 2.4 01/12/09 1.6 10/14/08 1.9 09/21/08 3.5 05/20/08 1.0 02/10/08 0.9 11/19/07 1.5 08/07/07 1.3 05/27/07 2.9 post XRT 10/25/06 5.4 07/26/06 5.1 12/12/05 4.7 09/2005 4.4 09/2004 3.8 U/S scrotum: 09/29/2013--small left hydrocele and tubular ectasia of left testis. Assessment and Plan: Mr Mina is a very pleasant 80 y.o. man with Adenocarcinoma of the prostate. [id number], Sofy 4+3, left lobe involved. OLGA (-), PSA of 5.4 Mr Mina was treated with external beam radiation under RTOG protocol and received 79.2 Gy completed on 04/12/2007 with no concurrent ADT. His PSA remains q uite low at 0.2 which is excellent, Clinically there is no evidence of disease and patient has no adverse late effects of radiation. He continues followup with other providers for his other co-morbidities and [facility] Patient is to return to radiation oncology in one year for repeat PSA and clinical evaluation as perRTOG trial. He is to call if he has questions or concerns in the meantime. Patient verbally consents to this telephone visit and understands that this visit may be billed, similar to a clinic office visit. I provided care to the patient today via telephone call. The total time associated with this visit was 15 minutes. documented in this encounter Plan of Treatment Upcoming Encounters Date Type Specialty Care Team Description 10/11/2022 Office Visit Dermatology Virgilio Mckeon MD [facility] DR CHRISTIANO HENSON-DERMAT OLOGY [place], [place] [address] (Wo rk) 10/16/2022 Office Visit Otolaryngology Frank Buchanan MD [facility] OTOLARYNGOLOGY Sarah EPT. [place], [place] [address] (Wo rk) 11/29/2022 Appointment Hematology and Oncology 11/29/2022 Office Visit Radiation Oncology Emerald Leyva APRN [facility] RADIATION ONCCESAR GY [place], [place] [address] (Wo rk) documented as of this encounter Visit Diagnoses Diagnosis Prostate cancer Malignant neoplasm of prostate documented in this encounter Care Teams Hot Plate Press Operator Relationship Specialty Start Date End Date Dexter Pereira MD PCP - General Internal Medicine 06/21/20 11/20/21 [address] [place] [address] documented as of this encounter
--- OUTSIDE RECORDS SUMMARY | 2022-10-09 16:12 | XMS_ITS | Encounter Summary ---
:1940 [place] [address] Care Team Providers Name Role Phone Fabiano Celaya MD Primary Care Provider Reason for Visit Reason Comments Establish Care SLIVER IN FINGER Encounter Details Date Type Department Care Team Description 12/05/2021 Office [place] [facility], superficial [facility] D rive foreign body (splinter), [place] [address] initial encounter [phone] Social History Tobacco Use Types Packs/Day Years Used Date Smoking Tobacco: Never Smokeless Tobacco: Never Alcohol Use Standard Drinks/Week Comments Never 0 (1 standard drink = 0.6 oz pure alcoho l) RARE Sex Assigned at Date Recorded Not on file documented as of this encounter Last Filed Vital Signs Vital Sign Reading Time Taken Comments Blood Pressure 159/63 12/05/2021 12:53 PM EST Pulse 73 12/05/2021 12:53 PM EST Temperature 36.5 ??C (97.7 ??F) 12/05/2021 12:53 PM EST Respiratory Rate - - Oxygen Saturation - - Inhaled Oxygen Concentration - - Weight 64.9 kg (143 lb 1.3 oz) 12/05/2021 12:53 PM EST Height 162 cm (5' 3.78) 12/05/2021 12:53 PM EST Body Mass Index 24.73 12/05/2021 12:53 PM EST documented in this encounter Progress Notes Richie Uribe MD - 12/05/2021 12:15 PM EST Images from the original note were not included. Orthopaedic Surgery Hand Consult Note Attending: Dr. Borjas We are seeing Alfredito Mina at the request of No att. providers found for the evaluation of Right Hand 4th finger nail bed splinter Chief Complaint: Right Hand 4th finger nail bed splinter History of Present Illness: Alfredito Mina is a 81 y.o. ambidexterous male with presents with Right hand 4th digit nail bed splint after woodworking today. NVI. No F/C. Walk-in clinic unable to extract. Past Medical History: Patient Active Problem List Diagnosis Code ??? [...] bilateral inguinal hernia repair, follow-up exam Z09 Past Surgical History: Past Surgical History: Procedure Laterality Date ??? [...] MONITORING, SETUP performed by FRANK MAC at [facility] OR ??? PRO COLONOSCOPY, REMV LESN, SNARE 01/06/2013 COLONOSCOPY, POLYPECTOMY, REMOVAL LESION BY SNARE performed by Josh Jeffery MD at [facility] ??? PRO LAP, INGUINAL HERNIA REPR, INITIAL Bilateral 10/27/2020 LAPAROSCOPIC HERNIA REPAIR, INITIAL INGUINAL- CHARISSE (WRVU 6.36) performed by Dulce Osborne MD at [facility] OR ??? PRO REPAIR RECURR INGUIN KIRAN, REDUCIBL 03/10/2011 HERNIA REPAIR, INGUINAL, RECURRENT performed by NOREEN BOWIE at [facility] OR ??? PRO THYROIDECTOMY=SUBSTERNAL, TRANSCERV 11/30/2011 THYROIDECTOMY, INCL. SUBSTERNAL, CERVICAL APPROACH performed by FRANK MAC at [facility] OR ??? PRO TOTAL KNEE ARTHROPLASTY 06/19/2012 @TOTAL KNEE ARTHROPLASTY performed by ADAM CARRERO at [facility] OR ??? ROTATOR CUFF REPAIR 2013 ??? UMBILICAL HERNIA REPAIR ??? UPPER GI ENDOSCOPY, EXAM 01/29/2012 UPPER GI ENDOSCOPY performed by VICKI SON at [facility] Allergies Allergen Reactions ??? Cyclobenzaprine Urinary retention, xerostomia ??? Codeine ??? Lactose Other (See Comments) Sneezing Current Outpatient Medications on File Prior to Visit Medication Sig Dispense Refill ??? furosemide (Lasix) [...] facility-administered medications on file prior to visit. Family History: Negative for bleeding/clotting disorders or anesthetic complications. Social History: Living Situation: [place], [place] Review of Systems: As per HPI, otherwise negative Objective: Temp: [36.5 ??C (97.7 ??F)] Heart Rate: [73] Resp: [16] BP: (159)/(63) SpO2: [97 %] Heart Rate from SpO2: -- Physical Exam General: awake/alert, responds to questions HEENT: normocephalic, atraumatic CVS: regular rate assessed peripherally Pulm: non-labored breathing on RA Skin: Intact Psych: Normal mood and affect Right Hand Right Hand 4th finger nail bed splinter approximately 1.5cm. No ecchymosis, erythema, or overlying skin changes. No swelling in wrist, hand, fingers Normal cascade of digits No TTP over wrist, hand, fingers Full extension and flexion of MCP, IP joints Sensation intact to light touch in radial, median ulnar distributions Motor intact wrist flexion/extension, bonding supervisor, AIN/PIN/IO intact Brisk capillary refill distally 2+ radial pulse Labs: No Labs Imaging: No imaging Procedures: Nail bed was irrigated and prepped in sterile fashion. Curved forceps were used to bluntly expand entry point of splinter under nail bed. Splint was extracted in entirety. Nail was dressed with bacitracin and gauze. Assessment/Plan: 81 y.o. ambidexterous male with presents with Right hand 4th digit nail bed splint after woodworking today. NVI. No F/C. Splinter was extracted and wound was dressed with gauze and bacitracin. Follow-up as needed. Patient instructed to take PO Keflex 500 QID for 5 days. Patient shouldreturn if experiences signs of infection including increased pain, drainage, fevers, chills, worsening redness, or numbness/tingling. - Activity: as tolerated - Antibiotics: 500 QID PO Keflex for 5days - Follow-up: as needed, call for signs of infection, or worsening pain Richie Uribe MD Orthopaedic Surgery Pager: [phone] Darren Borjas MD - 12/05/2021 12:15 PM EST I reviewed this case with Dr Urbie and I agree with his treatment and plan DARREN BORJAS MD documented in this encounter Plan of Treatment Upcoming Encounters Date Type Specialty Care Team Description 10/11/2022 Office Visit Dermatology Virgilio Mckeon MD [facility] DR CHRISTIANO HENSON-DERMAT OLOGY [place], [place] [address] (Wo rk) 10/16/2022 Office Visit Otolaryngology Frank Buchanan MD [facility] OTOLARYNGOLOGY Sarah EPT. [place], [place] [address] (Wo rk) 11/29/2022 Appointment Hematology and Oncology 11/29/2022 Office Visit Radiation Oncology Emerald Leyva APRN [facility] RADIATION ONCCESAR [place], [place] [address] (Wo rk) documented as of this encounter Visit Diagnoses Diagnosis Finger, superficial foreign body (splint er), initial encounter documented in this encounter Care Teams Electronics Engineering Manager Relationship Specialty Start Date End Date Fabiano Celaya MD PCP - General Emergency Medicine 11/21/21 [address] [place] [address] documented as of this encounter
--- OUTSIDE RECORDS SUMMARY | 2022-10-09 16:12 | XMS_ITS | Encounter Summary ---
:1940 Author Organization [facility] [place] [address] Care Team Providers Name Role Phone Fabiano Celaya MD Primary Care Provider Encounter Details Date Type Department Care Team Description 09/22/[address] [facility] [place] [address] Social History Tobacco Use Types Packs/Day Years Used Date Smoking Tobacco: Never Smokeless Tobacco: Never Alcohol Use Standard Drinks/Week Comments Never 0 (1 standard drink = 0.6 oz pure alcoho l) RARE Sex Assigned at Date Recorded Not on file documented as of this encounter Miscellaneous Notes Telephone Encounter - Erica Hernandez - 09/22/2022 1:51 PM EST LVM on [phone] that appointment on Tuesday 09/25 needs to be rescheduled as the provider will not be available, requested call back to re-[facility]. documented in this encounter Plan of Treatment Upcoming Encounters Date Type Specialty Care Team Description 10/11/2022 Office Visit Dermatology Virgilio Mckeon MD [facility] DR CHRISTIANO HENSON-DERMAT [place], [place] [address] (Wo rk) 10/16/2022 Office Visit Otolaryngology Frank Buchanan MD [facility] OTOLARYNGOLOGY Sarah EPT. [place], [place] [address] (Wo rk) 11/29/2022 Appointment Hematology and Oncology 11/29/2022 Office Visit Radiation Oncology Emerald Leyva APRN [facility] RADIATION ONCOLO [place], [place] [address] (Wo rk) documented as of this encounter Visit Diagnoses Not on filedocumented in this encounter Care Teams Recreation Attendant Relationship Specialty Start Date End Date Fabiano Celaya MD PCP - General Emergency Medicine 11/21/21 [address] [place] [address] documented as of this encounter
--- OUTSIDE RECORDS SUMMARY | 2022-10-09 16:12 | XMS_ITS | Encounter Summary ---
:1940 Author Organization [facility] [place] [address] Care Team Providers Name Role Phone Fabiano Celaya MD Primary Care Provider Encounter Details Date Type Department Care Team Description 11/21/2021 Office Visit Radiation Oncology at [facility] Pr ostate cancer [facility] CREDENTIALING COORDINATOR (Primary Dx) [facility] [place], [place] RADIATION [place]COL[place] [id number] [place] [address] [phone] Social History Tobacco Use Types Packs/Day Years Used Date Smoking Tobacco: Never Smokeless Tobacco: Never Alcohol Use Standard Drinks/Week Comments Never 0 (1 standard drink = 0.6 oz pure alcoho l) RARE Sex Assigned at Date Recorded Not on file documented as of this encounter Last Filed Vital Signs Vital Sign Reading Time Taken Comments Blood Pressure 174/74 11/21/2021 3:55 PM EST Pulse 72 11/21/2021 3:55 PM EST Temperature 36.4 ??C (97.5 ??F) 11/21/2021 3:55 PM EST Respiratory Rate 16 11/21/2021 3:55 PM EST Oxygen Saturation 95% 11/21/2021 3:55 PM EST Inhaled Oxygen Concentration - - Weight - - Height - - Body Mass Index - - documented in this encounter Progress Notes [facility] APRN - 11/21/2021 2:15 PM ESTSummary: 81 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 [facility] [place] [address] Phone: RADIATION ONCOLOGY FOLLOW UP NOTE Patient Alfredito Mina 1940 PCP: Dexter Pereira MD Urologist: Radiation oncologist: Dr. Donohue (PI for study) Chief Complaint: follow up/labs for prostate cancer Time since completed RT:compl 04/2007 ADT:no concurrent ADT Current treatment:Surveillance (Pt has preferred to continue following q 1 year with radiation oncology) HPI: Alfredito Mina is a 80 y.o. male.who is in radiation oncology clinic today for regular followup. He was treated with external beam radiation therapy for prostate cancer and completed treatment 04/12/2007. He was enrolled in a clinical trial--RTOG 0126 arm 2. ?? HPI Mr. Mina is a male who [...] was believed to be due to hemorrhoids. ?? The patient was then seen by Dr. Kiran who, on September 19, 2006, performed TRS, finding an estimated gland size of 30 grams; however, the measured size was 56 grams. Biopsies were taken and the specimen reported in [facility] pathology under session #[id number] prostate: The right lobe apex, mid, and base negative; the left apex was 3 + 3 in 40% of one core; the left mid was 3 + 4 in 50% of one core; and the left base showed a 3 + 4 in 5% in one of two cores. This information was reviewed at [facility] on October 19, 2006, and the report paralleled that given by the [facility]. The [facility] session number was [id number]. ?? The patient was then seen by Dr. Mixon on December 26, 2005, and after review, his note indicates an IPS of 9/35. He had no difficulties with erectile dysfunction. His physical examination revealed a 30-gram prostate without nodularity, and the gland was smooth. With a PSA indicated of 5.4, a Henderson score of 4 + 3 = 7/10, staged as a T1c N0, it was considered intermediate risk with a possibility oforgan-confined disease of about 50%, seminal vesicle 8%, and lymph nodes 3%. The [facility] five-year survival review was indicated at surgery at 89, radiation at 91, and brachytherapy 85. The patient was presented with treatment options, and a radical laparoscopic prostatectomy was recommended. He elected to be treated with radiation therapy and received 7920 cGy and completed treatment on 04/12/2007. ?? Prostate Cancer Notes 09/29/2013 Date of Presentation 12/12/2005 Age at Presentation 66 years old PSA at Presentation 5.1 Presence of Symptoms at Presentation BPH Ethnicity White Result of ALBERTA normal Date of TRUS and Biopsy 09/19/2006 Volume in cc 56 Henderson grade/score a+b=c 4+3=7 Total Cores 12 cores [...] Post Primary Therapy - Sukumar PSA 0.18 ?? Cancer history: : 1. Adenocarcinoma of the prostate. [id number], Henderson 4+3, left lobe involved. OLGA (-), PSA [...] cancer--squamous cell--07/2013 ---skin cancer basal cell 2014 Interim HPI: Dr Bernardo Cote has followed pt for Lung Ca 06/27/2021 Surveillance following lung cancer resection: ?? Mr. Mina is an 81-year-old man who underwent thoracoscopic right lower lobectomy in 2009 for adenocarcinoma of the lung. I last saw him on June 21, 2020, at which time a plan was made for continued surveillance. He has done well since that time. He underwent successful bilateral inguinal hernia repair on October 27, 2020. 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 He also notes the development of red spots on his abdomen. Medications 08/26/21 1114 Medication Sig Taking? traMADoL (Ultram) 50 mg Tablet Take 1 tablet by mouth every 6 hours as needed for Pain. Patient not taking: Reported on 06/27/2021 furosemide (Lasix) 40 mg Tablet Take 20-40 mg by mouth daily. levothyroxine (Synthroid) 100 mcg Tablet Take 100 mcg by mouth daily. potassium chloride ER (K-Dur/Klor-Con) 20 mEq Tab Sust.Rel. Particle/Crystal Take 10 mEq by mouth daily. terazosin (HYTRIN) 2 mg Capsule Take 1 capsule by mouth nightly. polyethylene glycol (MIRALAX) 17 gram Powder in Packet Take 17 g by mouth daily. Allergies Allergen Reactions ??? Cyclobenzaprine Urinary retention, xerostomia ??? Lactose Other (See Comments) Sneezing Past Medical History: Diagnosis Date ??? Arthritis knee replacement right ??? Aspiration into lower respiratory tract 05/06/2013 ??? Cancer lung 2009 ??? Colon polyps ??? Difficulty in swallowing ??? Dry mouth ??? Dyslipidemia ??? GERD (gastroesophageal reflux disease) ??? Heart valve disease I have had surgery here at [facility] for a valve repair ??? Hypertension [...] MONITORING, SETUP performed by FRANK MAC at [facility] MAIN OR ??? PRO COLONOSCOPY, REMV LESN, SNARE 01/06/2013 COLONOSCOPY, POLYPECTOMY, REMOVAL LESION BY SNARE performed by Josh Jeffery MD at [facility] ENDOSCOPY ??? PRO LAP, INGUINAL HERNIA REPR, INITIAL Bilateral 10/27/2020 LAPAROSCOPIC HERNIA REPAIR, INITIAL INGUINAL- CHARISSE (WRVU 6.36) performed by Dulce Osborne MD at [facility] MAIN OR ??? PRO REPAIR RECURR INGUIN KIRAN, REDUCIBL 03/10/2011 HERNIA REPAIR, INGUINAL, RECURRENT performed by NOREEN BOWIE at [facility] OR ??? PRO THYROIDECTOMY=SUBSTERNAL, TRANSCERV 11/30/2011 THYROIDECTOMY, INCL. SUBSTERNAL, CERVICAL APPROACH performed by FRANK MAC at [facility] OR ??? PRO TOTAL KNEE ARTHROPLASTY 06/19/2012 @TOTAL KNEE ARTHROPLASTY performed by ADAM CARRERO at [facility] OR ??? ROTATOR CUFF REPAIR 2013 ??? UMBILICAL HERNIA REPAIR ??? UPPER GI ENDOSCOPY, EXAM 01/29/2012 UPPER GI ENDOSCOPY performed by VICKI SON at [facility] ENDOSCOPY Family History Problem Relation Age of Onset ??? Asthma Mother ??? Heart Failure Father ??? Thyroid Disease Paternal Grandmother Social History Tobacco Use ??? Smoking status: Never Smoker ??? Smokeless tobacco: Never Used Vaping Use ??? Vaping Use: Never used Substance Use Topics ??? Alcohol use: Never Comment: RARE ??? 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 Single. Five children and seven grandkids. 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 Has been spending vora in [place]. Used to play basketball. No alcohol. He is on friendly terms with his ex- and she assists him as needed. Review of Symptoms: I reviewed the IPSS/BERNADINE/Epic-Cp survey results from today 11/21/2021 ??1:35 PM EST - Filed by Patient Urinary function problem No Problem Urinary control Total control # of pads used per day None Urinary dripping/leakage problem Very small problem 5. How big a problem, if any, has each of the following been for you? Pain or burning with urination No problem Weak urine stream/incomplete bladder emptying Very small problem Need to urinate frequently Moderate problem 6. How big a problem, if any, has each of the following been for you? Rectal pain or urgency of bowel movements No problem Increased frequency of your bowel movements No problem Overall problems with your bowel movements Small problem Bloody stools No problem Ability to reach orgasm Fair Quality of your erections Not firm enough for any sexual activity Problem with sexual function or lack of it Moderate problem 10. How big a problem, if any, has each of the following been for you? Hot flashes or breast tenderness/enlargement No problem Feeling depressed Small problem Lack of energy No problem Urinary Incontinence Symptom Score (range: 0 - 12) 1 Urinary Irritation/Obstructive Symptom Score (range: 0 - 12) 4 Bowel Symptom Score (range: 0 - 16) 2 Vitality/Hormonal Symptom Score (range: 0 - 12) 2 Overall Prostate Cancer QOL Score (range: 0 - 60) 9 Q - Prostate Followup Survey Question 11/21/2021 ??1:42 PM EST - Filed by Patient Reason for visit Follow up on existing problem(s) Other Incomplete emptying Not at all Frequency Less than 1 time in 5 Intermittency Not at all Urgency Not at all Weak Stream Not at all Straining Not at all Nocturia 2 times Quality of life Mostly satisfied Total IPSS Score (range: 0 - 35) 3 ( Mild LUTS) Confidence, level - past 6 months Very low Penetration - past 6 months Almost never or never Penetration, maintain - past 6 months Almost never or never Erection, maintain - past 6 months Did not attempt intercourse Sexual satisfaction - past 6 months Did not attempt intercourse Sexual Health in Men (range: 1 - 21) 3 (Severe ED) Patient concerns for today's visit: General:Generally feels doing well, 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 Fatigue:does not feel he has fatigue Weight/appetite/diet: no signif changes to weight he says Respiratory:he does have some post prandial phlegm production but always clear and he can clear easily. (Followed by Dr Cote for hx of NSCLC) GI:no n/v/d/c, no blood in stool , he does not have difficulty with bowels. :no pain or burning with urination, no blood in urine, no incontinence. Endocrine:no hot flashes, he is on Sexual health:severe ED, no attempt at sex. Muscle skeletal:does not require even tylenol for occaisional aches, pains, stiffness from he painting. Bone health: taking Vit D/ Calcium Neuro:no focal neuro sx. 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 Smoking:never Alcohol:never Support/ social relationships:Erinliz Torress, Child , relationship with ex Advanced directives not discussed Financial/transportation concerns:none at this time Health maintenance:follows prn with PCPMD Performance Status: KPS Score ECOG Grade Definition x 90-100 0 Fully active, able to carry on all pre-disease performance without restriction 70-80 1 Restricted in physically strenuous activity but ambulatory and able to carry out work of a light or sedentary nature, e.g., light house work, office work 50-60 2 Ambulatory and capable of all selfcare but unable to carry out any work activities; up and about more than 50% of waking hours 30-40 3 Capable of only limited selfcare; confined to bed or chair more than 50% of waking hours 10-20 4 Completely disabled; cannot carry on any selfcare; totally confined to bed or chair Physical Examination: There is no height or weight on file to calculate BMI. BP 174/74 (Patient Position: Sitting) Pulse 72 Temp 36.4 ??C (97.5 ??F) (Temporal) Resp 16 Constitutional: seen in clinic, no distress , alert, participates in dialogue HENT: normocephalic, anicteric, no injection sclera , conjunctiva, neck supple, no adenopathy Cardiovascular: Rate and Rhythm: Normal rate and regular rhythm. Heart sounds: Normal heart sounds. No murmur Pulmonary: Effort: Pulmonary effort is normal. Breath sounds: Normal breath sounds. No wheezing or rales. Abdomen: Soft, flat, no HSM, no masses, non-tender, active bowel sounds Genitourinary: Rectum: deferred Musculoskeletal: Normal range of motion. General: No swelling or deformity. No spinal percussion tenderness Comments: Ambulates without assistance Skin: General: Skin is warm and dry. Neurological: General: No focal deficit present. Mental Status: alert and oriented to person, place, and time. Gait: Gait normal. Psychiatric: Mood and Affect: Mood normal. Behavior: Behavior normal. Thought Content: Thought content normal. Judgment: Judgment normal. New Labs Reviewed this visit: date PSA Testosterone 11/21/21 0.32 6.66 08/19/2020 0.20 ?? 08/21/2019 ? 07/11/2018 0.18 6.29 04/20/2017 0.20 ?? 04/06/2016 0.20 ?? 03/17/2015 0.3 ?? 04/07/2014 0.30 ?? 09/29/2013 0.36 698 11/07/2012 1.16 396 11/29/2011 0.81 287 05/03/2011 0.97 360 12/07/2010 1.68 424 09/12/2010 1.39 ?? 06/20/2010 1.58 ?? 03/16/2010 2.27 ?? 12/14/2009 2.3 448 11/01/09 2.8 ?? 06/22/09 2.4 ?? 01/12/09 1.6 ?? 10/14/08 1.9 ?? 09/21/08 3.5 ?? 05/20/08 1.0 ?? 02/10/08 0.9 ?? 11/19/07 1.5 ?? 08/07/07 1.3 ?? 05/27/07 2.9 post XRT 10/25/06 5.4 ?? 07/26/06 5.1 ?? 12/12/05 4.7 ?? 09/2005 4.4 ?? 09/2004 3.8 ? Recent Results (from the past 72 hour(s)) Comprehensive metabolic panel (non-fasting) Result Value Ref Range Glucose Lvl 84 65 - 199 mg/dL BUN 17 10 - 20 mg/dL Creatinine 1.26 0.80 - 1.50 mg/dL Sodium 138 135 - 145 mmol/L Potassium 4.4 3.5 - 5.0 mmol/L Chloride 102 98 - 107 mmol/L CO2 28 22 - 31 mmol/L Anion Gap 8 5 - 15 mmol/L Calcium 9.2 8.5 - 10.5 mg/dL Total Protein 6.9 6.1 - 8.0 g/dL Albumin 4.2 3.2 - 5.2 g/dL AST 19 0 - 39 unit/L ALT 15 0 - 55 unit/L Alk Phos 74 40 - 130 unit/L Total Bilirubin 0.5 0.2 - 1.3 mg/dL Estimated GFR 52 (L) >=60 mL/min/1.73 m?? Testosterone, total Result Value Ref Range Testo Total 6.66 1.93 - 7.40 ng/mL PSA (Ultrasensitive) Result Value Ref Range PSA Total (Ultrasensitive) 0.32 0.00 - 4.00 ng/mL Assessment: 81 y.o. presenting for follow up/ lab for prostate cancer. Fluctuating but stable PSA with no problematic urinary sx, no hematuria. No blood in stool Medical Decision Making/Recommendations/Plan: # prostate cancer: reviewed PSA results. No concerning reported symptoms or physical examination findings today # effects of EBRT: Acute: 1. LUTS (lower urinary tract symptoms) 2. Bowel dysfunction 3. Sexual health/Erectile Dysfunction 4. Fatigue 5. Mood changes Late: We reviewed potential late effects of radiation that require medical evaluation including : 1. Changes in urinary flow/difficulty passing urine (scarring from radiation) 2. Blood in urine (may be infection, inflammation bladder wall (cystitis), formation of telangiectasia (small, thin blood vessels that are dilated or broken, near the surface of the bladder and may bleed) or bladder/genitourinary cancer 3. Blood in bowel movements (stools)- maybe from hemorrhoids, telangiectasia from radiation, colorectal cancer Symptoms that you should bring to the attention of your provider: Difficulty or changes in your urine flow Blood in your urine or stool # ADT:none # survivorship/lifestyle/wellness: Genetic Risk Evaluation: Body weight/nutrition Exercise:physically active with painting and chores Bone health:no bone pain. Smoking:none Alcohol: none Annual exam with PCP:yes Up to date on vaccinations: Colorectal screening: Lung cancer screening:will contin to be followed for NSCLC by Dr Cote (last seen 06/2021) # resources provided: # referrals done: # follow up: Per NCCN guidelines, PSA and history/physical every 6-12 months X 5 years, then annually. Annual ALBERTA (unless PSA undetectable or prostatectomy). PSA may be checked more frequently depending on risk level or other patient specific factors. Next visit:one year Labs: PSA, testosterone, CBC, CMP Alfredito Mina had the opportunity to ask questions and I answered them to the best of my knowledge. Alfredito Mina agreed to contact radiation oncology in between visits if he has any questions/concerns or new symptoms in regards to the radiation therapy/prostate cancer [facility] MSN, MEDICAL STAFF CREDENTIALING COORDINATOR, WOOD BOX MAKER-C Nurse Practitioner Radiation Oncology documented in this encounter Plan of Treatment Upcoming Encounters Date Type Specialty Care Team Description 10/11/2022 Office Visit Dermatology Virgilio Mckeon MD [facility] DR CHRISTIANO HENSON-DERMAT OLOGY [place], [place] [address] (Wo rk) 10/16/2022 Office Visit Otolaryngology Frank Buchanan MD [facility] OTOLARYNGOLOGY D EPT. [place], [place] [address] (Wo rk) 11/29/2022 Appointment Hematology and Oncology 11/29/2022 Office Visit Radiation Oncology Emer[facility] Leyva APRN [facility] RADIATION ONCOLO GY [place], [place] [address] (Wo rk) documented as of this encounter Results (ABNORMAL) Comprehensive metabolic panel (non-fasting) (11/21/2021 1:13 PM EST) P athologist Signature Glucose Lvl 84 65 - 199 [facility] mg/dL [facility] Comment: Diabetes: >=200 mg/dL plus symp toms BUN 17 10 - 20 mg/dL [facility] Creatinine 1.26 0.80 - 1.50 mg/dL [facility] Sodium 138 135 - 145 mmol/L [facility] Potassium 4.4 3.5 - 5.0 mmol/L [facility] Comment: Please note: ??Patients with WBC >100,00 0 may have falsely elevated Potassium levels. ??For accurate Potassium quantif ication in these patients send serum separator tube (gold top) for subsequent determinations. ??Contact the Clinical Chemistry Laboratory if there are any qu estions. Chloride 102 98 - 107 mmol/L [facility] CO2 28 22 - 31 mmol/L [facility] Anion Gap 8 5 - 15 mmol/L [facility] Calcium 9.2 8.5 - 10.5 mg/dL [facility] Total Protein 6.9 6.1 - 8.0 g/dL [facility] Albumin 4.2 3.2 - 5.2 g/dL [facility] AST 19 0 - 39 unit/L [facility] ALT 15 0 - 55 unit/L [facility] Alk Phos 74 40 - 130 unit/L [facility] Total Bilirubin 0.5 0.2 - 1.3 mg/dL [facility] Estimated GFR 52 (L) >=60 mL/min/1.73 m?? [facility] Comment: This patient? s estimated [...] Agency Comment Spec In Lab [facility] APRN CHEMISTRY ORDERABLES Performing Organization Address City/State/ZIP [place] [address] Testosterone, total (11/21/2021 1:13 PM EST) P athologist Signature Testo Total 6.66 1.93 - 7.40 ARCELIA HERBERT ng/mL [facility] Comment: Pediatric Reference Ranges: ? Males [...] Volume Laterality Blood 11/21/2021 1:13 PM 2 1:47 EST PM EST Resulting Agency Comment Spec In Lab [facility] MEDICAL STAFF CREDENTIALING COORDINATOR CHEMISTRY ORDERABLES Performing Organization Address City/State/ZIP [place] [address] PSA (Ultrasensitive) (11/21/2021 1:13 PM EST) P athologist Signature PSA Total 0.32 0.00 - ARCELIA HERBERT (Ultrasensitiv 4.00 ng/mL [facility]) [facility] Comment: PLEASE NOTE: The above reference [...] Agency Comment Spec In Lab [facility] MEDICAL STAFF CREDENTIALING COORDINATOR CHEMISTRY ORDERABLES Performing Organization Address City/State/ZIP [place] [address] documented in this encounter Visit Diagnoses Diagnosis Prostate cancer - Primary Malignant neoplasm of prostate documented in this encounter Care Teams Wall Man Relationship Specialty Start Date End Date Fabiano Celaya MD PCP - General Emergency Medicine 11/21/21 [address] [place] [address] documented as of this encounter
--- OUTSIDE RECORDS SUMMARY | 2022-10-09 16:13 | XMS_ITS | Encounter Summary ---
:1940 [place] [address] Care Team Providers Name Role Phone Klaus Vila MD Primary Care Provider Reason for Visit Reason Comments Other Encounter Details Date Type Department Care Team Description 01/19/2020 Office Visit Internal Medicine at [facility] Sharonda Majano MD [facility] Sarah [facility] [place] [id number] HOSPITAL MEDICINE [phone] [place], [place] [address] (Wo rk) Social History Tobacco Use Types Packs/Day Years Used Date Smoking Tobacco: Never Smokeless Tobacco: Never Alcohol Use Standard Drinks/Week Comments Yes 0 (1 standard drink = 0.6 oz pure alcoho l) RARE Sex Assigned at Date Recorded Not on file documented as of this encounter Last Filed Vital Signs Vital Sign Reading Time Taken Comments Blood Pressure 135/66 01/19/2020 1:47 PM standing afte r 2 EDT minutes Pulse 53 01/19/2020 1:47 PM EDT Temperature 36.3 ??C (97.4 ??F) 01/19/2020 12:50 PM EDT Respiratory Rate 16 01/19/2020 12:50 PM EDT Oxygen Saturation 99% 01/19/2020 12:50 PM EDT Inhaled Oxygen - - Concentration Weight 62.1 kg (137 lb) 01/19/2020 12:50 with shoes on PM EDT Height 167.6 cm (5' 6) 01/19/2020 12:50 PM EDT Body Mass Index 22.11 01/19/2020 12:50 PM EDT documented in this encounter Patient Instructions Patient InstructionsSharonda Majano MD - 01/19/2020 1:00 PM EDT - Encouraged to wait 5 minutes with any changes in position (laying to sitting to standing or sitting to standing) - Encouraged to use counter pressure maneuvers like clenching his fists or sitting down when you feel lightheaded - Encouraged good hydration and food intake - Please stop taking atenolol 25mg by mouth daily as this may be contributing to your dizziness whenmoving from a seated to standing position. - We will make a follow up PCP appointment for you within the next 3 weeks to see if your dizziness has improved when not taking your atenolol 25mg by mouth daily. 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 - Notes trouble with water coming out of his nose, is not taking loratadine - Notes dry skin on his hands - He notes scattered bright red, circular lesions on his arm and trunk - He is taking 1/4 cup full of miralax twice a day. His normal BM is once a day. He notes that he has been moving his bowels 3-4 times per day while taking laxatives. - Notes that he gets dizzy (things fade and come back quickly) when getting up to stand from a seated position. This occurs intermittently (lasts a couple seconds and then resolves). Occurs 2-3 times per week over the past year. Denies preceding symptoms of warmth, nausea. No LOC, no hitting of his head. Denies shaking of his extremities or loss of bowel/bladder function. Denies experiencing any symptoms after the dizziness resolves. - He is able to climb a flight of stairs without SOB - Denies the room spinning, swaying, tilting - Denies loss of consciousness, hitting his head - Denies sensation of imbalance - Denies sensation of dizziness occurring with laughing, coughing, sneezing, defecation, urination, associated with pain, or turning his head in a particular direction - Denies preceding symptoms prior to experiencing dizziness or symptoms after the dizziness resolves - Denies shaking of his extremities, biting of his tongue, loss of urinary and bowel function - Reports good PO intake - Denies new medications or supplements - Denies evidence of bleeding, blood in his stool, blood in his urine - Denies anxiety or hyperventilation - Denies new numbness, tingling, inability to move his extremities, garbled speech, difficulty finding words - Denies hearing loss, ear pain, ear fullness. Reports chronic tinnitus. - Denies recent upper respiratory tract infection - Denies fever, chills, headache, sore throat, productive cough, chest pain, shortness of breath, abdominal pain, nausea, vomiting - Labs (07/24/19): Normal CBC, CMP, TSH, free T4, folate, B12, vitamin D 25PH - Labs (06/04/19): A1c 5.8% - TTE (08/25/18): Left ventricular ejection fraction 67%. No left ventricular wall motion abnormalities. Normal right ventricular structure, function. 29 mm mitral annulus ring. Mild (1+/4+) mitral regurgitation. Moderate left atrial enlargement. Compared to 03/08/2016, left atrial size is larger - Medicatoins: Synthroid 125 mcg po qd, omeprazole 20mg po qd, loratadine 10 mg po qd, Ipratropium-albuterol 1 puff q6hr prn, atenolol 25mg po qd, furosemide 20mg po qd, terazosin 2mg po qhs, miralax 17g po qd, KCl 10 mEq po qd. Pertinent Exam: - Vitals: Temp 97.4F HR 53 (previously HR 50-60s since 11/2014) BP 125/72 RR 16 SaO2 99 % on room airWeight 137 Lbs Previously weight 138 pounds (08/2019), 131- 134 pounds (04/2019-06/2019) 141 - 145 lbs (08/2018 - 10/2018) - Orthostatic Vitals below - General: NAD on room air - HEENT: No JVD - CV: Bradycardic, S1/S2 present, no murmurs - Pulm: CTAB - GI: +BS, soft, NT, ND - Extremities: No edema - Skin: WWP, scattered loo angiomas on his chest and bilateral arms - Neuro: No focal neurologic deficits Major issues addressed / Plan: # Dizziness 2/2 suspected pre-syncope 2/2 bradycardia (with BB use) - Vital signs stable, no focal neurologic deficits - Patient describes dizziness that occurs upon standing that resolve resolves after a couple of seconds, not associated with LOC - Encouraged to wait 5 minutes with any changes in position (laying to sitting to standing or sitting to standing) - Encouraged to use counter pressure maneuvers like clenching his fists or sitting down if he feels lightheaded - Encourage adequate hydration and PO intake - Orthostatic vitals in the clinic: Laying: BP 133/63 HR 50 Sitting: BP 135/66 HR 53 Standing: BP 136/58 HR 52 - No new medications, supplements. No evidence of bleeding. The patient reports good p.o. intake. - The patient has no preceding symptoms and no associated symptoms that occur after the patient's above described episodes; no history consistent with seizures - EKG ordered given bradycardia noted on exam. The patient's previous HR ranged from 50-60s since 2014. - EKG: VR 50. Sinus bradycardia. Evidence of continued 1st degree AV block. - Discontinue the patient's home atenolol 25mg po qd and encouraged the patient to see if his dizziness improves. There is no clear indication for the use of atenolol at this time. His BP is well controlled and he is bradycardic with first degree AV block on exam. 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 The patient agrees to stop taking his atenolol 25mg po qd with close follow up with his PCP to evaluate his symptoms while off of atenolol. The patient may require referral to Cardiology for treatment of symptomatic bradycardia if his above described symptoms do not improve while off of beta jessa therapy, as this may be an indication for PPM placement. The patient denies chest pain, SOB, or syncope. - Last EKG in 2013: VR 60. Sinus rhythm. 1st degree AV block. - S/p TTE (08/25/18), normal LVEF, and LV without WMAs. - No history or exam consistent with peripheral or central vertigo or syncope - No evidence of anxiety or hyperventilation - The patient is encouraged to call his PCP and the clinic if his above describe symptoms do not improve. # Rhinorrhea - Renewed the patient's existing prescription for loratadine 10mg po qd # Scattered loo angiomas - On trunk and bilateral upper extremities Sharonda Majano MD Internal Medicine documented in this encounter Plan of Treatment Upcoming Encounters Date Type Specialty Care Team Description 10/11/2022 Office Visit Dermatology Virgilio Mckeon MD [facility] DR CHRI[facility]O [facility] OLOGY [place], [place] [address] (Wo rk) 10/16/2022 Office Visit Otolaryngology Frank Buchanan MD [facility] OTOLARYNGOLOGY Sarah EPT. [place], [place] [address] (Wo rk) 11/29/2022 Appointment Hematology and Oncology 11/29/2022 Office Visit Radiation Oncology Emerald Leyva APRN [facility] RADIATION ONCCESAR GY [place], [place] [address] (Wo rk) documented as of this encounter Procedures Procedure Name Priority Date/Time Associated Diagnosis Comme nts EKG 12-LEAD Routine 01/19/2020 1:32 PM Dizziness Results f or this EDT procedure are i n the results section . documented in this encounter Results EKG 12 Lead (01/19/2020 1:32 PM EDT) Component Value Ref Range Test Analysis Performed Pathologis t Method Time At Signature Ventricular rate 50 BPM MUSE SYSTEM Atrial Rate 50 BPM MUSE SYSTEM P-R Interval 358 ms MUSE SYSTEM QRS Duration 100 ms MUSE SYSTEM Q-T Interval 466 ms MUSE SYSTEM QTC Calculated 424 ms MUSE SYSTEM (Bezet) Calculated P Dale 34 degrees MUSE SYSTEM Calculated R Dale 13 degrees MUSE SYSTEM Calculated T Dale 32 degrees MUSE SYSTEM INTERPRETATION Sinus bradycardia with 1st degree A-V block MUSE SYSTEM Otherwise normal ECG When compared with ECG of 24-DEC-2013 15:45, Premature atrial complexes are no longer Present Confirmed by MD JUVENAL, BARRETT ([id number]) on 01/20/2020 7:41:24 AM Specimen Anatomical Collection Method Collection Time Receive d Time (Source) Location / / Volume Laterality 01/19/2020 1:32 PM 0 7:41 EDT AM EDT Sharonda Majano MD ECG ORDERABLES Performing Organization Address City/State/ZIP Code Phon e Number MUSE SYSTEM documented in this encounter Visit Diagnoses Diagnosis Dizziness Dizziness and giddiness documented in this encounter Care Teams Agricultural Service Technician Relationship Specialty Start Date End Date Klaus Vila MD PCP - General General Internal Medicine 12/12/19 06/20/20 [facility] [place] [address] documented as of this encounter
--- OUTSIDE RECORDS SUMMARY | 2022-10-09 16:13 | XMS_ITS | Encounter Summary ---
:1940 Author Organization [facility] [place] [address] Care Team Providers Name Role Phone Klaus Vila MD Primary Care Provider Reason for Referral Consultation (Routine) - Closed Specialty Diagnoses / Procedures Referred By Contact Refer red To Contact Podiatry Diagnoses Pain in toe of right foot Gunnar Gudino PA [facility] Podiatry [facility] [place] [address] [place] [address] Referral ID Status Reason Start Date Expiration Date Visits V isits Requested Authorized [id number] Closed Consult, 06/18/2020 06/18/2021 1 1 Test & Treat Reason for Visit Reason Comments Foot Pain bi lat Encounter Details Date Type Department Care Team Description 06/18/2020 Emergency Emergency Department Sharita Gould in in toe of right foot [facility] (Primary Dx) [place] [address] Social History Tobacco Use Types Packs/Day Years Used Date Smoking Tobacco: Never Smokeless Tobacco: Never Alcohol Use Standard Drinks/Week Comments Yes 0 (1 standard drink = 0.6 oz pure alcoho l) RARE Sex Assigned at Date Recorded Not on file documented as of this encounter Last Filed Vital Signs Vital Sign Reading Time Taken Comments Blood Pressure 143/67 06/18/2020 12:41 PM EDT Pulse 65 06/18/2020 12:41 PM EDT Temperature 36.7 ??C (98.1 ??F) 06/18/2020 12:41 PM EDT Respiratory Rate 16 06/18/2020 12:41 PM EDT Oxygen Saturation 97% 06/18/2020 12:41 PM EDT Inhaled Oxygen Concentration - - Weight 61.2 kg (135 lb) 06/18/2020 12:41 PM EDT Height - - Body Mass Index 21.79 01/19/2020 12:50 PM EDT documented in this encounter Discharge Instructions Discharge InstructionsGunnar Gudino PA - 06/18/2020 1:31 PM EDT You were seen in the emergency department for foot pain. There are no signs of infection at this time. Fracture is unlikely given that there was no trauma. Return to the emergency department if you have increased pain, fevers, chills, redness, swelling, skin breakdown or if you have any other questions or concerns. Please follow up with podiatry for follow up. A referral was sent for you. If you do not hear from them by Sunday please call them for an appointment. AttachmentsThe following attachments cannot be sent through Care Everywhere.Foot Pain ([place])documented in this encounter Medications at Time of Discharge Medication Sig Dispensed Refills Start Date End Date potassium chloride ER Take 10 mEq by mouth 0 05/12 (K-Dur/Klor-Con) 20 mEq daily. Tab Sust.Rel. Particle/Crystal terazosin (HYTRIN) 2 mg Take 1 capsule by 90 capsule 3 10/11 Capsule mouth nightly. polyethylene glycol Take 17 g by mouth 0 (MIRALAX) 17 gram daily. Powder in Packet loratadine (Claritin) Take 1 tablet by 90 tablet 3 01/19/20 20 08/19/2020 10 mg Tablet mouth daily. levothyroxine TAKE ONE TABLET BY 90 tablet 3 10/20/201906/2020 (SYNTHROID) 125 mcg MOUTH EVERY MORNING Tablet ipratropium-albuterol Take 0.5 mg by 1 Box 4 06/24/2019 08/19/2020 (DUONEB) 0.5 mg-3 nebulization 4 times mg(2.5 mg base)/3 mL daily. J45.909 Solution for NebulizationIndications : SOB (shortness of breath) ipratropium-albuterol Inhale 1 puff into 1 Inhaler 12 201808/19/2020 (COMBIVENT RESPIMAT) the lungs every 6 20-100 mcg/actuation hours as needed for Mist Wheezing. furosemide (LASIX) 20 Take 1 tablet by 90 tablet 3 10/11/20 18 08/19/2020 mg Tablet mouth daily. potassium chloride Take 1 tablet by 30 tablet 11 05/28/2014 08/19/2020 (K-DUR/KLOR-CON) 10 mEq mouth daily. extended release tablet documented as of this encounter ED Notes Gunnar Gudino PA - 06/18/2020 1:31 PM EDT Images from the original note were not included. Chief Complaint Patient presents with ??? Foot Pain bi lat HPI 80 y.o. male presents to the emergency department with right second toe pain. Symptoms started approximately a year ago. Pain is worse with activity and improves with rest. 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 He describes pain as a mild sharp discomfort without radiation. Symptoms have gotten slightly worse recently so he presented to the emergency department for evaluation. He denies any redness, no numbness/tingling, purulent drainage, fevers or chills. He does admit to bilateral lower extremity swelling that is been ongoing for years that resolves with elevation. No trauma to the area. Patient admits that he has had similar pain in his other foot, but not recently. Allergies Allergen Reactions ??? Cyclobenzaprine Urinary retention, xerostomia ??? Lactose Other (See Comments) Sneezing Review of Systems 10 systems reviewed negative unless otherwise noted above Physical Exam Constitutional: General: He is not in acute distress. Appearance: He is not ill-appearing. HENT: Head: Normocephalic. Eyes: Conjunctiva/sclera: Conjunctivae normal. Cardiovascular: Rate and Rhythm: Normal rate. Pulmonary: Effort: Pulmonary effort is normal. Musculoskeletal: Normal range of motion. Comments: Right lower extremity: Painless passive range of motion of the ankle and digits 1 through5. Minimal tenderness to palpation over circular skin growth and to a lesser extent the nail of the second digit. No erythema, edema, induration, warmth or fluctuance. No evidence of infection. DP and PT pulses are intact. Sensation intact to light touch. Skin: General: Skin is warm and dry. Capillary Refill: Capillary refill takes less than 2 seconds. Findings: No erythema. Neurological: Mental Status: He is alert and oriented to person, place, and time. Psychiatric: Mood and Affect: Mood normal. Procedures MDM 80 y.o. male presents to the emergency department with right second digit pain. Pain has been ongoing for the past year. There are no signs of acute infection. Patient does have an abnormal skin growthon that toe and poor nail growth. He has no discomfort with passive range of motion of the toe and he is neurovascular intact. A referral was placed to podiatry for follow-up. Return precautions discussed including, but not limited to as seen in discharge instructions, fever, chills, increased pain, redness, swelling or any other questions/concerns. . Pt had time to ask questions and they were all answered to the best of my ability. Pt verbalized understanding that they can return to the ED at any time with any questions or concerns. Gunnar Gudino PA 06/18/201857 documented in this encounter Miscellaneous Notes ED Triage - Lai Mccray RN - 06/18/2020 12:39 PM EDT Hx of bi lat foot, toe pain. Pt notes yesterday his R ankle/foot to be edematous which was new, withworsening pain in his R foot/toe. Ambulatory, skin pwd, RRR, even, unlabored. documented in this encounter Plan of Treatment Upcoming Encounters Date Type Specialty Care Team Description 10/11/2022 Office Visit Dermatology Virgilio Mckeon MD [facility] DR [facility] OLOGY [place], [place] [address] (Wo rk) 10/16/2022 Office Visit Otolaryngology Frank Buchanan MD [facility] OTOLARYNGOLOGY Sarah EPT. [place], [place] [address] (Wo rk) 11/29/2022 Appointment Hematology and Oncology 11/29/2022 Office Visit Radiation Oncology Emerald Leyva APRN [facility] RADIATION ONCOLO GY [place], [place] [address] (Wo rk) Scheduled Referrals Name Type Priority Associated Diagnoses Order S chedule Referral to Outpatient Referral Routine Pain in toe of right Ordered: Podiatry foot 06/18/2020 documented as of this encounter Visit Diagnoses Diagnosis Pain in toe of right foot - Primary Pain in limb documented in this encounter Care Teams [id number] Programmer Relationship Specialty Start Date End Date Klaus Vila MD PCP - General General Internal Medicine 12/12/19 06/20/20 [facility] [place] [address] documented as of this encounter
--- OUTSIDE RECORDS SUMMARY | 2022-10-09 16:13 | XMS_ITS | Encounter Summary ---
:1940 Author Organization [facility] [place] [address] Care Team Providers Name Role Phone Giorgio Cardona MD Primary Care Provider Encounter Details Date Type Department Care Team Description 10/21/2019 Office Visit Dermatology at Rigoberto Loredo eborrheic keratosis; Emilia IIIMD Cheilitis; [address] [facility] [place] [address] [facility] [place], [place] [address] Social History Tobacco Use Types Packs/Day Years Used Date Smoking Tobacco: Never Smokeless Tobacco: Never Alcohol Use Standard Drinks/Week Comments Yes 0 (1 standard drink = 0.6 oz pure alcoho l) RARE Sex Assigned at Date Recorded Not on file documented as of this encounter Progress Notes Emani Estevez E - 10/21/2019 3:00 PM EST DERMATOLOGY ESTABLISHED PATIENT CLINIC NOTE Date of service: 10/21/2019 Alfredito Mina : 1940 Provider: Rigoberto Jackson MD PROBLEM: FSE SKIN HISTORY: 11/23/2014 ---Pathologic Diagnosis--- Treated with ED&C, right mid lateral back 12/08/2014 A - Skin, right mid lateral back, shave biopsy: Basal cell carcinoma, superficial type, extending to both peripheral margins. 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 Seborrheic Keratoses HPI Alfredito Mina is a 79 y.o. year old male. Patient is here today for a FSE. Reports a lot of spots popping up, he is unsure if it is due to age. Patient is leaving for [place] in November Pt last seen on 11/28/18 Procedure Screening Questions: Allergy to lidocaine or epinephrine: Unknown, no problem at the dentist with shots in the mouth Blood thinners: Atenolol Pacemaker/defibrillator:??No Heart valves:??Unknown, does not think so Joint replacements:??Right knee, 2008 or so. [place] [facility] [place]: Allergies Allergen Reactions ??? Cyclobenzaprine Urinary retention, xerostomia ??? Lactose Other (See Comments) Sneezing CURRENT MEDICATIONS: Current Outpatient Medications Medication Sig Dispense Refill ??? levothyroxine (SYNTHROID) 125 mcg Tablet TAKE ONE TABLET BY MOUTH EVERY MORNING 90 tablet 3 ??? omeprazole (PRILOSEC) 20 mg Capsule, Delayed Release(E.C.) Take 1 capsule by mouth daily. 180 capsule 3 ??? ipratropium-albuterol (DUONEB) 0.5 mg-3 mg(2.5 mg base)/3 mL Solution for Nebulization Take 0.5 mg by nebulization 4 times daily. J45.909 (Patient not taking: Reported on 07/24/2019) 1 Box 4 ??? loratadine (CLARITIN) 10 mg Tablet Take 10 mg by mouth daily. ??? ipratropium-albuterol (COMBIVENT RESPIMAT) 20-100 mcg/actuation Mist Inhale 1 puff into the lungs every 6 hours as needed for Wheezing. 1 Inhaler 12 ??? atenolol (TENORMIN) 50 mg Tablet Take 0.5 tablets by mouth daily. 45 tablet 3 ??? furosemide (LASIX) 20 mg Tablet Take 1 tablet by mouth daily. 90 tablet 3 ??? terazosin (HYTRIN) 2 mg Capsule Take 1 capsule by mouth nightly. 90 capsule 3 ??? polyethylene glycol (MIRALAX) 17 gram Powder in Packet Take 17 g by mouth daily. ??? potassium chloride (K-DUR/KLOR-CON) 10 mEq extended release tablet Take 1 tablet by mouth daily.30 tablet 11 No current facility-administered medications for this visit. PROBLEM LIST: Patient Active Problem List Diagnosis Code ??? [...] F51.01 ??? Splinter T14.8XXA ??? Bunion M21.619 ROS General: feeling well. Oriented X 3. Skin: denies other skin complaints EXAM General: NAD, pleasant, cooperative Skin: Significant skin findings: A. Multiple 0.4-1 cm, brown-black papules/plaques with waxy stuck on appearance on the trunk and extremities B. Dry lips- angular cheilitis C. Multiple, maloney red 1-4mm papules on the trunk D. x2 nodular lesions in the right inguinal crease above and below the inguinal ligament pt knows hehas hernia- but not symptomatic ASSSSMENT/PLAN: A. Seborrheic Keratosis (asymptomatic) - trunk and extremities Monitor for change or symptoms - Etiology discussed - Patient reassured lesions are benign in nature - Explained that these are hereditary, adult onset and acquired. - symptomatic lesions can be treated with LN2 B. Angular Cheilitis on the BL lips - -Recommended using Vaseline on the areas -If the Vaseline does not help may use Hydrocortisone 10 Call if areas do not resolve as expected or problems arise. C. Maloney Angiomas- trunk - Discussed benign nature of lesions and provided reassurance. No treatment necessary at this time. - Briefly reviewed cosmetic laser removal if numerous and/or bothersome to patient. Patient is awarethat this is considered a cosmetic procedure and not covered by insurance. D. Hernia x2 nodular lesions in the right inguinal crease above and below the inguinal ligament -Not bothersome to patient Monitor for change or symptoms - advised to call PCP urgently if pain or other problems arise RTC - 6-8 Months Sun protection advised I am documenting this encounter acting as the scribe for and in the presence of Dr. Jackson.: KRYSTA See I performed the above scribed service and agree with the accuracy of the documentation in this encounter. Rigoberto Jackson MD Section of Dermatology [facility] documented in this encounter Plan of Treatment Upcoming Encounters Date Type Specialty Care Team Description 10/11/2022 Office Visit Dermatology Virgilio Mckeon MD [facility] DR CHRISTIANO HENSON[facility]Y [place], [place] [address] (Leroy bhatia) 10/16/2022 Office Visit Otolaryngology Frank Buchanan MD [facility] OTOLARYNGOLOGY Sarah EPT. [place], [place] [address] (Wo rk) 11/29/2022 Appointment Hematology and Oncology 11/29/2022 Office Visit Radiation Oncology Emerald Leyva APRN [facility] RADIATION ONCCESAR GY [place], [place] [address] (Leroy rk) documented as of this encounter Visit Diagnoses Diagnosis Seborrheic keratosis Other seborrheic keratosis Cheilitis Diseases of lips Maloney angioma Nevus, non-neoplastic documented in this encounter Care Teams It Architect Relationship Specialty Start Date End Date Giorgio Cardona MD PCP - General General Internal Medicine 11/29/17 0 [facility] [place] [address] documented as of this encounter
--- OUTSIDE RECORDS SUMMARY | 2022-10-09 16:13 | XMS_ITS | Encounter Summary ---
:1940 Author Organization [facility] [place] [address] Care Team Providers Name Role Phone Giorgio Cardona MD Primary Care Provider Reason for Visit Reason Onset Date Comments Medication Problem 06/24/2019 Encounter Details Date Type Department Care Team Description 06/24/2019 Refill Internal Medicine at [facility] [place] SOB (shortness of breath) [place] [address] Social History Tobacco Use Types Packs/Day Years Used Date Smoking Tobacco: Never Smokeless Tobacco: Never Alcohol Use Standard Drinks/Week Comments Yes 0 (1 standard drink = 0.6 oz pure alcoho l) RARE Sex Assigned at Date Recorded Not on file documented as of this encounter Miscellaneous Notes Telephone Encounter - Tisha Sweeney - 06/24/2019 3:53 PM EDT Pharmacy or caller: PHARMACY Medication: Duoneb Message: Pharmacy is calling stating the diagnosis code is wrong on this medication for billing and they need a new script with the correct code. Please call back to discuss. documented in this encounter Plan of Treatment Upcoming Encounters Date Type Specialty Care Team Description 10/11/2022 Office Visit Dermatology Virgilio Mckeon MD [facility] [address]-DERMAT OLOGY [place], [place] [address] (Wo rk) 10/16/2022 Office Visit Otolaryngology Frank Buchanan MD [facility] OTOLARYNGOLOGY Sarah EPT. [place], [place] [address] (Wo rk) 11/29/2022 Appointment Hematology and Oncology 11/29/2022 Office Visit Radiation Oncology Emerald Leyva APRN [facility] RADIATION ONCOLO GY [place], [place] [address] (Wo rk) documented as of this encounter Visit Diagnoses Diagnosis SOB (shortness of breath) Shortness of breath documented in this encounter Care Teams Painter Ski Edge Relationship Specialty Start Date End Date Giorgio Cardona MD PCP - General General Internal Medicine 11/29/17 0 [facility] GENERAL [place] [address] documented as of this encounter
--- OUTSIDE RECORDS SUMMARY | 2022-10-09 16:13 | XMS_ITS | Encounter Summary ---
:1940 Author Organization [place] [address] Care Team Providers Name Role Phone Giorgio Cardona MD Primary Care Provider Encounter Details Date Type Department Care Team Description 2019 Tele[place] [facility] [place] [address] Social History Tobacco Use Types Packs/Day [...] 10/11/2022 Office Visit Dermatology Virgilio Mckeon MD [facility] DR CHRISTIANO HENSON[facility]DER[facility] OLOGY [place], [place] [address] (Wo rk) 10/16/2022 Office Visit Otolaryngology Frank Buchanan MD [facility] OTOLARYNGOLOGY Sarah EPTDann [place], [place] [address] (Wo rk) 11/29/2022 Appointment Hematology and Oncology 11/29/2022 Office Visit Radiation Oncology Emerald Leyva APRN [facility] DR RYNE [place], [place] [address] (Wo rk) documented as of this encounter Visit Diagnoses Not on filedocumented in this encounter Care Teams Industrial/Organizational Psychologist Relationship Specialty Start Date End Date Giorgio Cardona MD PCP - General General Internal Medicine 11/29/17 0 [facility] [place] [address] documented as of this encounter
--- OUTSIDE RECORDS SUMMARY | 2022-10-09 16:13 | XMS_ITS | Encounter Summary ---
:1940 Author Organization [facility] Address [facility] [place] [address] Care Team Providers Name Role Phone Giorgio Cardona MD Primary Care Provider Reason for Visit Reason Comments Cough cough has been better Other stool has been more soft kwan snt know if its from water intake stool softeners Encounter Details Date Type Department Care Team Description 06/24/2019 Office Visit Internal Medicine at Deandre Cardona MD Asthma, unspecified asthma severity, uns pecified whether complicated, unspecified whether persistent; [facility] SOB (shortness of breath) [facility] [address] Pereira GENERAL INTERNAL [place], [place] MEDICINE [address] [place] [address] [phone] (Wo rk) Social History Tobacco Use Types Packs/Day Years Used Date Smoking Tobacco: Never Smokeless Tobacco: Never Alcohol Use Standard Drinks/Week Comments Yes 0 (1 standard drink = 0.6 oz pure alcoho l) RARE Sex Assigned at Date Recorded Not on file documented as of this encounter Last Filed Vital Signs Vital Sign Reading Time Taken Comments Blood Pressure 140/55 06/24/2019 1:43 PM EDT Pulse 57 06/24/2019 1:43 PM EDT Temperature 36.3 ??C (97.3 ??F) 06/24/2019 1:43 PM EDT Respiratory Rate 16 06/24/2019 1:43 PM EDT Oxygen Saturation 99% 06/24/2019 1:43 PM EDT Inhaled Oxygen Concentration - - Weight 60.3 kg (133 lb) 06/24/2019 1:43 PM EDT Height 162.6 cm (5' 4) 06/24/2019 1:43 PM EDT Body Mass Index 22.83 06/24/2019 1:43 PM EDT documented in this encounter Patient Instructions Patient InstructionsBaGiorgio luciano MD - 06/24/2019 2:00 PM EDT Remain on the combivent at this time Await the pulmonary function tests See you in a month documented in this encounter Progress Notes Giorgio Cardona MD - 06/24/2019 2:00 PM EDT Established Patient Follow-up Visit History of Presenting Illness: Patient here to followup on acute and chronic medical issues Reviewed history Finished prednisone Not using inhaler Using flonase and claritin 10mg once daily currently Breathing is better - excellent. No wheezing at this time. Has not wheezed Has nebulizer - no worries there - Feels breathing back to normal at this time. Hernias came out - but no [id number] No heartburn at this time Patient reported measures in the past 7 days Pain: Physical Health: Mental Health: Patient Active Problem List Diagnosis ??? Splinter [...] features. 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 [id number]; KRAS negative, EGFR negative --09/2010: CT scan - normal --02/2011: CT scan --09/2011: CT scan - negative annual CT's afterwards Outpatient Encounter Medications as of 06/24/2019 Medication Sig Dispense Refill ??? guaiFENesin 600 mg Tablet Extended Release 12hr Take 1,200 mg by mouth 2 times daily. ??? fluticasone propionate (FLONASE) 50 mcg/actuation [place], Suspension 1 spray by Each Nare route daily for 30 days. 1 each 3 ??? atenolol (TENORMIN) 50 mg Tablet Take 0.5 tablets by mouth daily. 45 tablet 3 ??? furosemide (LASIX) 20 mg Tablet Take 1 tablet by mouth daily. 90 tablet 3 ??? terazosin (HYTRIN) 2 mg Capsule Take 1 capsule by mouth nightly. 90 capsule 3 ??? levothyroxine (SYNTHROID) 125 mcg Tablet Take 1 tablet by mouth every morning. 30 tablet 12 ??? omeprazole (PRILOSEC) 20 mg Capsule, Delayed Release(E.C.) Take 1 capsule by mouth 2 times daily. 180 capsule 3 ??? polyethylene glycol (MIRALAX) 17 gram Powder in Packet Take 17 g by mouth daily. ??? potassium chloride (K-DUR/KLOR-CON) 10 mEq extended release tablet Take 1 tablet by mouth daily.30 tablet 11 ??? ipratropium-albuterol (DUONEB) 0.5 mg-3 mg(2.5 mg base)/3 mL Solution for Nebulization Take 0.5 mg by nebulization 4 times daily. 1 Box 4 ??? loratadine (CLARITIN) 10 mg Tablet Take 10 mg by mouth daily. ??? [DISCONTINUED] ipratropium-albuterol (DUONEB) 0.5 mg-3 mg(2.5 mg base)/3 mL Solution for Nebulization Take 0.5 mg by nebulization 4 times daily. (Patient not taking: Reported on 06/24/2019) 1 Box 4 ??? ipratropium-albuterol (COMBIVENT RESPIMAT) 20-100 mcg/actuation Mist Inhale 1 puff into the lungs every 6 hours as needed for Wheezing. (Patient not taking: Reported on 06/24/2019) 1 Inhaler 12 No facility-administered encounter medications on file as of 06/24/2019. Social History Socioeconomic History ??? Marital status: Single Spouse name: None ??? Number of children: None ??? Years of education: None ??? Highest education level: None Occupational History ??? None Social Needs ??? Financial resource strain: None ??? Food insecurity: Worry: None Inability: None ??? Transportation needs: Medical: None Non-medical: None Tobacco Use ??? Smoking status: Never Smoker ??? Smokeless tobacco: Never Used Substance and Sexual Activity ??? Alcohol use: Yes Comment: RARE ??? Drug use: No ??? Sexual activity: None Lifestyle ??? Physical activity: Days per week: None Minutes per session: None ??? Stress: None Relationships ??? Social connections: Talks on phone: None Gets together: None Attends cheondoism service: None Active member of club or organization: None Attends meetings of clubs or organizations: None Relationship status: None ??? Intimate partner violence: Fear of current or ex partner: None Emotionally abused: None Physically abused: None Forced sexual activity: None Other Topics Concern ??? None Social History Narrative ??? None Review of Symptoms. Constitutional - (- ) fevers (- ) chills, sweats (- ) fatigue Allergic/Immunologic - (- ) rash Cardiovascular - ( -)chest pain ( -)palpitations Integument/Breast - (- ) lesions, lumps, nodules Respiratory - (- )SOB, KWAN ( -)cough, sputum (- )wheezing HEENT - ( -) diffculty swallowing (- ) nasal congestion, postnasal drip Psychiatric - (- ) sadness, depression (- ) anxiety, panic (- ) memory loss (- ) insomnia Neurological - ( -) numbness, tingling, loss of sensation ( -) weakness or function of limbs (- ) headaches Gastrointestinal - (- ) abdominal pain (- ) nausea, GERD (- ) constipation, diarrhea (- ) blood in stool Genitourinary - (- ) abnormal discharge (- ) lumps, masses or nodules ( -) nocturia, dysuria, polyuria Heme/Lymph - (- ) lymph node swelling Musculoskeletal - ( -) pain at rest or with movement Objective Vitals: 06/24/19 1343 BP: 140/55 BP Location (NBP): Right arm Patient Position: Sitting BP Cuff Sizes: Adult (25-34 cm) Pulse: 57 Resp: 16 Temp: 36.3 ??C (97.3 ??F) TempSrc: Oral SpO2: 99% Weight: 60.3 kg (133 lb) Height: 162.6 cm (5' 4) Gen -no acute distress. Alert, responsive and comfortable Neck - Full range of motion Lungs - No wheezes, no crackles. Chest/Back - No spinal tenderness. No visible deformities or scoliosis appreciated. 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 Asthma Peak flow still low at 250cc. Would suggest staying on combivent at this time. Await PFTs - may need advair depending on results. # GERD Had been taking prilosec at this time - advised can try off it but may need to go back on it # Hypertension Stable/adequately controlled Keep appointment in July at this time. Patient Instructions: Patient Instructions Remain on the combivent at this time Await the pulmonary function tests See you in a month I counselled the patient on the above medical issues I also went over the patient's medication list and discussed all concerns and questions the patient had. The patient agreed to this above assessment and plan, and verbalized understanding of the plan of care. All questions were answered to their satisfaction. I encouraged the patient to contact us should they have further questions or concerns. I also explained that results will be communicated by one of my nurses, letter, or myD. Next Appointment: No follow-ups on file. Orders placed in this Encounter: Orders Placed This Encounter Procedures ??? Pulmonary Function Testing Standing Status: Future Standing Expiration Date: 07/25/2019 Order Specific Question: Which location will this be performed? Answer: [place] Order Specific Question: PFT Basic Bundle: (Pulse Oximetry, [place] w/o Bronchodilator, Diffusing Capacity) Answer: X Order Specific Question: Spirometry w/o Bronchodilator Answer: X Order Specific Question: Diffusing Capacity (DLCO) Answer: X Order Specific Question: Lung Volumes Answer: X Order Specific Question: Methacholine Challenge (Asthma test) Answer: X Laboratory Studies No results found for this or any previous visit (from the past 72 hour(s)). documented in this encounter Plan of Treatment Upcoming Encounters Date Type Specialty Care Team Description 10/11/2022 Office Visit Dermatology Virgilio Mckeon MD [facility] DR CHRISTIANO HENSON-DERMAT OLOGY [place], [place] [address] (Wo rk) 10/16/2022 Office Visit Otolaryngology Frank Buchanan MD [facility] OTOLARYNGOLOGY Sarah EPT. [place], [place] [address] (Wo rk) 11/29/2022 Appointment Hematology and Oncology 11/29/2022 Office Visit Radiation Oncology Emerald Leyva APRN [facility] RADIATION ONCOLO GY [place], [place] [address] (Wo rk) documented as of this encounter Results Pulmonary Function Testing (06/30/2019 11:59 PM EDT) Narrative Nash Sy MD - 06/30/2019 11:5 9 PM EDT Nash Sy MD ? 07/09/2019 ??8:50 AM A. 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 B. BRONCHODILATOR RESPONSE: Following the administration of a bronch odilator there was a borderline improvement in FEV1 This does not rule out a response to chr onic bronchodilator therapy C. LUNG VOLUMES: Lung volumes are within normal limits. D. DIFFUSING CAPACITY: The uncorrected diffusing capacity(DLCO) is within normal limits (>LLN-120%) E. PULSE OXIMETRY: Resting oxyhemoglobin saturation is norm al. Resting oximetry was assessed while the patient was breathing room air. F. FINAL IMPRESSION: The normal or near normal DLCO in conjun ction with OVD suggest the presence of asthma or COPD-bronchiti c type. Giorgio Cardona MD PFT ORDERABLES documented in this encounter Visit Diagnoses Diagnosis Asthma, unspecified asthma severity, uns pecified whether complicated, unspecified whether persistent SOB (shortness of breath) Shortness of breath Asthma, unspecified asthma severity, uns pecified whether complicated, unspecified whether persistent documented in this encounter Care Teams Spring Assembler Relationship Specialty Start Date End Date Giorgio Cardona MD PCP - General General Internal Medicine 11/29/17 0 [facility] [place] [address] documented as of this encounter
--- OUTSIDE RECORDS SUMMARY | 2022-10-09 16:13 | XMS_ITS | Encounter Summary ---
:1940 Author Organization [facility] [place] [address] Care Team Providers Name Role Phone Giorgio Cardona MD Primary Care Provider Reason for Visit Reason Onset Date Comments Triage 06/16/2019 Encounter Details Date Type Department Care Team Description 06/16/2019 Telephone Internal Medicine at [facility] [place] [address] Social History Tobacco Use Types Packs/Day Years Used Date Smoking Tobacco: Never Smokeless Tobacco: Never Alcohol Use Standard Drinks/Week Comments Yes 0 (1 standard drink = 0.6 oz pure alcoho l) RARE Sex Assigned at Date Recorded Not on file documented as of this encounter Miscellaneous Notes Telephone Encounter - Chrissy Issa RN - 06/18/2019 9:10 AM EDT PC to Alfredito garcia. Left below message for pt on his answering machine. Let him know that he can stop the duoneb if he is no longer wheezing or coughing. Thanks - Livier Telephone Encounter - Gisell Escamilla - 06/17/2019 3:25 PM EDT Patient returning phone call to the nurse. Please call him back. Patient said he went off of the nebulizer today Telephone Encounter - Millie Long RN - 06/17/2019 2:35 PM EDT Left another message to call us back. Telephone Encounter - Millie Long RN - 06/17/2019 10:29 AM EDT Left message for patient to call us back. Need to relay message below. Let him know that he can stop the duoneb if he is no longer wheezing or coughing. Thanks - Livier Telephone Encounter - Urvashi [place] - 06/16/2019 8:27 AM EDT Message: Pt called and states his lungs are clearer and he has not coughed in 4 days. He would like to know if he should continue to use the nebulizer or stop it. Please call pt. Ask caller their first and last name and relationship to the patient: self Best time to call back: any Ok to leave a message: y Ok to send my- message: n Offered Appointment: n MA/Nurse/[place] contacted via: Message: y Call: n Pager: n documented in this encounter Plan of Treatment Upcoming Encounters Date Type Specialty Care Team Description 10/11/2022 Office Visit Dermatology Virgilio Mckeon MD [facility] DR CHRISTIANO HENSON-DERMAT OLOGY [place], [place] [address] (Wo sriram) 10/16/2022 Office Visit Otolaryngology Frank Buchanan MD [facility] OTOLARYNGOLOGY Sarah EPT. [place], [place] [address] (Wo sriram) 11/29/2022 Appointment Hematology and Oncology 11/29/2022 Office Visit Radiation Oncology Emerald Leyva APRN [facility] RADIATION ONCOLO [place], [place] [address] (Wo rk) documented as of this encounter Visit Diagnoses Not on filedocumented in this encounter Care Teams Digital Court Reporter Relationship Specialty Start Date End Date Giorgio Cardona MD PCP - General General Internal Medicine 11/29/17 0 [facility] [place] [address] documented as of this encounter
--- OUTSIDE RECORDS SUMMARY | 2022-10-09 16:13 | XMS_ITS | Encounter Summary ---
:1940 Author Organization [facility] [place] [address] Care Team Providers Name Role Phone Giorgio Cardona MD Primary Care Provider Encounter Details Date Type Department Care Team Description 06/30/2019 Hospital Encounter [place] [facility] [place], unspecified [facility] [place] [address] complicated, unspecified whe ther persistent Social History Tobacco Use Types Packs/Day Years Used Date Smoking Tobacco: Never Smokeless Tobacco: Never Alcohol Use Standard Drinks/Week Comments Yes 0 (1 standard drink = 0.6 oz pure alcoho l) RARE Sex Assigned at Date Recorded Not on file documented as of this encounter Medications at Time of Discharge Medication Sig Dispensed Refills Start Date End Date terazosin (HYTRIN) 2 Take 1 capsule by 90 capsule 3 10/11/20 18 mg Capsule mouth nightly. polyethylene glycol Take 17 g by mouth 0 (MIRALAX) 17 gram daily. Powder in Packet ipratropium-albuterol Take 0.5 mg by 1 Box 4 06/24/2019 08/19/2020 (DUONEB) 0.5 mg-3 nebulization 4 times mg(2.5 mg base)/3 mL daily. J45.909 Solution for NebulizationIndication s: SOB (shortness of breath) fluticasone propionate 1 spray by Each Nare 1 each 3 07/04/2019 (FLONASE) 50 route daily for 30 mcg/actuation [place], days. Suspension guaiFENesin 600 mg Take 1,200 mg by 0 08/25/2019 Tablet Extended mouth 2 times daily. Release 12hr loratadine (CLARITIN) Take 10 mg by mouth 0 01/19/2020 10 mg Tablet daily. ipratropium-albuterol Inhale 1 puff into 1 Inhaler 12 201808/19/2020 (COMBIVENT RESPIMAT) the lungs every 6 20-100 mcg/actuation hours as needed for Mist Wheezing. atenolol (TENORMIN) 50 Take 0.5 tablets by 45 tablet 3 09/1401/19/2020 mg TabletIndications: mouth daily. Hypertension furosemide (LASIX) 20 Take 1 tablet by 90 tablet 3 10/11/20 18 08/19/2020 mg Tablet mouth daily. levothyroxine Take 1 tablet by 30 tablet 12 10/11/201810/20 (SYNTHROID) 125 mcg mouth every morning. Tablet omeprazole (PRILOSEC) Take 1 capsule by 180 capsule 3 201708/25/2019 20 mg Capsule, Delayed mouth 2 times daily. Release(E.C.) potassium chloride Take 1 tablet by 30 tablet 11 05/28/2014 08/19/2020 (K-DUR/KLOR-CON) 10 mouth daily. mEq extended release tablet documented as of this encounter Procedure Notes Nash Sy MD - 06/30/2019 11:59 PM EDTAssociated Order(s): PULMONARY FUNCTION TEST A. 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 B. BRONCHODILATOR RESPONSE: Following the administration of a bronchodilator there was a borderline improvement in FEV1 This does not rule out a response to chronic bronchodilator therapy C. LUNG VOLUMES: Lung volumes are within normal limits. D. DIFFUSING CAPACITY: The uncorrected diffusing capacity(DLCO) is within normal limits (>LLN-120%) E. PULSE OXIMETRY: Resting oxyhemoglobin saturation is normal. Resting oximetry was assessed while the patient was breathing room air. F. FINAL IMPRESSION: The normal or near normal DLCO in conjunction with OVD suggest the presence of asthma or COPD-bronchitic type. documented in this encounter Plan of Treatment Upcoming Encounters Date Type Specialty Care Team Description 10/11/2022 Office Visit Dermatology Virgilio Mckeon MD [facility] DR CHRISTIANO HENSON-DERMAT OLOGY [place], [place] [address] (Wo rk) 10/16/2022 Office Visit Otolaryngology Frank Buchanan MD [facility] OTOLARYNGOLOGY Sarah EPT. [place], [place] [address] (Wo rk) 11/29/2022 Appointment Hematology and Oncology 11/29/2022 Office Visit Radiation Oncology Emerald Leyva APRN [facility] RADIATION ONCOLO GY [place], [place] [address] (Wo rk) documented as of this encounter Procedures Procedure Name Priority Date/Time Associated Diagnosis Comme nts PULMONARY FUNCTION Routine 06/30/2019 11:59 PM Asthma, unspeci fied Results for this TEST EDT asthma severity, procedure a re in unspecified whether the resu lts complicated, section. unspecified whether persistent documented in this encounter Results Pulmonary Function Testing (06/30/2019 [...] persistent documented in this encounter Care Teams Museum Service Scheduler Relationship Specialty Start Date End Date Giorgio Cardona MD PCP - General General Internal Medicine 11/29/17 0 [facility] [place] [address] documented as of this encounter
--- OUTSIDE RECORDS SUMMARY | 2022-10-09 16:13 | XMS_ITS | Encounter Summary ---
:1940 Author Organization [facility] [place] [address] Care Team Providers Name Role Phone Giorgio Cardona MD Primary Care Provider Reason for Visit Reason Comments Medication Refill Encounter Details Date Type Department Care Team Description 10/20/2019 Refill Internal Medicine at [facility] Fadia Quigley APRN [facility] Sarah [facility] [place] [address] General Internal Medicine [phone] [place], [place] [address] (Wo rk) Social History Tobacco [...] 10/11/2022 Office Visit Dermatology Virgilio Mckeon MD [facility] ER DR CHRISTIANO HENSON-DERMAT OLOGY [place], [place] [address] (Wo rk) 10/16/2022 Office Visit Otolaryngology Frank Buchanan MD [facility] ER OTOLARYNGOLOGY D EPT. [place], [place] [address] (Wo rk) 11/29/2022 Appointment Hematology and Oncology 11/29/2022 Office Visit Radiation Oncology Emerald Leyva APRN [facility] RADIATION ONCOLO [place], [place] [address] (Wo rk) documented as of this encounter Visit Diagnoses Not on filedocumented in this encounter Care Teams Lead Welder Relationship Specialty Start Date End Date Giorgio Cardona MD PCP - General General Internal Medicine 11/29/17 0 [facility] [place] [address] documented as of this encounter
--- OUTSIDE RECORDS SUMMARY | 2022-10-09 16:13 | XMS_ITS | Encounter Summary ---
:1940 Author Organization [facility] [place] [address] Care Team Providers Name Role Phone Dexter Pereira MD Primary Care Provider Reason for Referral Diagnostic Test (Routine) - Closed Specialty Diagnoses / Procedures Referred By Contact Refer red To Contact Radiology Diagnoses S/P lobectomy of lung Primary adenocarcinoma of right lung Dexter Matute, [facility] Rad Ct Scan Procedures CT Chest wo Contrast (Generic) [facility] [place] [address] [place] [address] Referral ID Status Reason Start Date Expiration Date Visits V isits Requested Authorized [id number] Closed Specialty 06/20/2021 11/11/2021 1 1 Service Requested Reason for Visit Reason Comments Follow-up Encounter Details Date Type Department Care Team Description 06/21/2020 Office Visit Thoracic Surgery at [place], S/P lobe ctomy of lung; [facility] Dexter Pugh MD Primary adenocarcinoma of right lung [facility] [address] [place] THORACIC SURGERY [address] [place] [address] Social History Tobacco Use Types Packs/Day Years Used Date Smoking Tobacco: Never Smokeless Tobacco: Never Alcohol Use Standard Drinks/Week Comments Yes 0 (1 standard drink = 0.6 oz pure alcoho l) RARE Sex Assigned at Date Recorded Not on file documented as of this encounter Last Filed Vital Signs Vital Sign Reading Time Taken Comments Blood Pressure 128/67 06/21/2020 9:23 AM EDT Pulse 68 06/21/2020 9:23 AM EDT Temperature 36.5 ??C (97.7 ??F) 06/21/2020 9:23 AM EDT Respiratory Rate 18 06/21/2020 9:23 AM EDT Oxygen Saturation 99% 06/21/2020 9:23 AM EDT Inhaled Oxygen Concentration - - Weight 61.4 kg (135 lb 6.4 oz) 06/21/2020 9:23 AM EDT Height 160.5 cm (5' 3.19) 06/21/2020 9:23 AM EDT Body Mass Index 23.84 06/21/2020 9:23 AM EDT documented in this encounter Patient Instructions Patient InstructionsZoe Schwarz RN - 06/21/2020 10:00 AM EDT Thank you for visiting Dr. Matute in clinic 06/23/20 Dr. Matute would like to see you back in clinic in 1 year with a recent CT scan of your chest without IV contrast. You will receive a letter in the mail/ receive a call to schedule this appointment. ?? Exercise each day for 30 minutes [...] concerns. documented in this encounter Progress Notes Wade Sanchez PA - 06/21/2020 10:00 AM EDT Thoracic Surgery Attending Outpatient Follow Up Note Dexter Matute MD [place], [place] [address] FAX: Chief complaint: Follow-up Lobectomy RLL HPI: Alfredito Mina is a 80 y.o. male who is s/p thoracoscopic right lower lobectomy on 2009 for adenocarcinoma of the lung (1.1 cm). He presents today for his yearly surveillance CT scan. He waslast seen in clinic on 06/30/2019 with a complaint of occasional episodes of aspirations and was bothered by a persistent hoarse voice. He deferred medialization of his left vocal cord at that time. Currently he is tolerating a diet well, with no worsening aspiration symptoms. He continues to work every day and is still active. He denies f/c/n/v/SOB/CP. Medications: Current Outpatient Medications on File Prior to Visit Medication Sig Dispense Refill ??? levothyroxine (SYNTHROID) 125 mcg Tablet TAKE ONE TABLET BY MOUTH EVERY MORNING 90 tablet 3 ??? furosemide (LASIX) 20 mg Tablet Take 1 tablet by mouth daily. 90 tablet 3 ??? terazosin (HYTRIN) 2 mg Capsule Take 1 capsule by mouth nightly. 90 capsule 3 ??? polyethylene glycol (MIRALAX) 17 gram Powder in Packet Take 17 g by mouth daily. ??? potassium chloride (K-DUR/KLOR-CON) 10 mEq extended release tablet Take 1 tablet by mouth daily.(Patient taking differently: Take 5 mEq by mouth daily.) 30 tablet 11 ??? loratadine (Claritin) 10 mg Tablet Take 1 tablet by mouth daily. (Patient not taking: Reported on 06/21/2020) 90 tablet 3 ??? ipratropium-albuterol (DUONEB) 0.5 mg-3 mg(2.5 mg base)/3 mL Solution for Nebulization Take 0.5 mg by nebulization 4 times daily. J45.909 (Patient not taking: Reported on 07/24/2019) 1 Box 4 ??? ipratropium-albuterol (COMBIVENT RESPIMAT) 20-100 mcg/actuation Mist Inhale 1 puff into the lungs every 6 hours as needed for Wheezing. (Patient not taking: Reported on 01/19/2020) 1 Inhaler 12 No current facility-administered medications on file prior to visit. Physical Exam: BP 128/67 (Patient Position: Sitting) Pulse 68 Temp 36.5 ??C (97.7 ??F) (Oral) Resp 18 Ht 160.5 cm (5' 3.19) Wt 61.4 kg (135 lb 6.4 oz) SpO2 99% BMI 23.84 kg/m?? General Appearance: Alert, cooperative, no distress, appears stated age Nk: Supple, symmetrical, trachea midline, no adenopathy; thyroid: not enlarged, symmetric, no tenderness/mass/nodules; no carotid bruit or JVD Lungs: Clear to auscultation bilaterally, respirations unlabored, No wheezes, crackles or ronchi. Heart: Regular rate and rhythm, S1 and S2 normal, No murmur, rub, or gallop Abdomen: Soft, non-tender, bowel sounds active all four quadrants, no masses, no organomegaly Extremities: Extremities normal, atraumatic, no cyanosis or edema Wound/Incision: Clean, dry, intact, with evidence of good wound healing Imaging: I have independently visualized the following studies: CT Chest (06/21/2020): Stable, no new malignancies noted. Official read pending. Assessment: Alfredito Mina is a 80 y.o. male s/p for right lower lobectomy on 2009 for adenocarcinoma of the lung in 2009. He is currently doing well without any problems. Advised the patient that continuingannual surveillance was recommending and we will schedule him for a follow-up next year with a noncon trast chest CT. It was also recommended that he obtain his flu shot this year when available. Plan: 1. Continue to exercise at least 30 minutes a day. 2. RTC in 12 months with a noncontrast CT Chest 3. Call with any questions or concerns MAX High 06/21/20 Thoracic Surgery [facility] T Dexter Matute MD - 06/21/2020 10:00 AM EDT Thoracic surgery follow-up visit I saw and examined Mr. Mina with MAX Lujan, and agree with his findings, assessment andplan. In brief: Chief complaint: Standard surveillance status post right lower lobectomy History of present illness: Mr. Mina is an 80-year-old man who underwent a thoracoscopic rightupper lobectomy in 2009 for a 1.1 cm adenocarcinoma of the lung. I last saw him June 30, 2019 at which time he was complaining of a course voice. He deferred medialization of the left vocal cord. He comes in today with persistent hoarseness but with no difficulty tolerating his regular diet or aspiration. He has no neurologic complaints and no subjective adenopathy. He continues to work and has no particular dyspnea. Current Outpatient Medications on File Prior to Visit Medication Sig Dispense Refill ??? levothyroxine (SYNTHROID) 125 mcg Tablet TAKE ONE TABLET BY MOUTH EVERY MORNING 90 tablet 3 ??? furosemide (LASIX) 20 mg Tablet Take 1 tablet by mouth daily. 90 tablet 3 ??? terazosin (HYTRIN) 2 mg Capsule Take 1 capsule by mouth nightly. 90 capsule 3 ??? polyethylene glycol (MIRALAX) 17 gram Powder in Packet Take 17 g by mouth daily. ??? potassium chloride (K-DUR/KLOR-CON) 10 mEq extended release tablet Take 1 tablet by mouth daily.(Patient taking differently: Take 5 mEq by mouth daily.) 30 tablet 11 ??? loratadine (Claritin) 10 mg Tablet Take 1 tablet by mouth daily. 90 tablet 3 ??? ipratropium-albuterol (DUONEB) 0.5 mg-3 mg(2.5 mg base)/3 mL Solution for Nebulization Take 0.5 mg by nebulization 4 times daily. J45.909 1 Box 4 ??? ipratropium-albuterol (COMBIVENT RESPIMAT) 20-100 mcg/actuation Mist Inhale 1 puff into the lungs every 6 hours as needed for Wheezing. 1 Inhaler 12 No current facility-administered medications on file prior to visit. BP 128/67 (Patient Position: Sitting) Pulse 68 Temp 36.5 ??C (97.7 ??F) (Oral) Resp 18 Ht 160.5 cm (5' 3.19) Wt 61.4 kg (135 lb 6.4 oz) SpO2 99% BMI 23.84 kg/m?? Physical exam: He appears comfortable. He is alert, oriented and in no distress. His lungs are clear, his heart is regular and his abdomen is nontender nondistended. He has no neurologic deficits and no palpable bladder not Imaging: A chest CT was obtained with no evidence of recurrent or metastatic disease Assessment: 80-year-old man now 10 years removed from a thoracoscopic right lower lobectomy. He has no evidence of recurrent disease at present, and I recommended that we continue standard surveillance. He will return to clinic in [address] for a chest CT. Plan: Return to clinic in 1 year for noncontrast chest CT DEXTER MATUTE MD documented in this encounter Miscellaneous Notes Addendum Note - Zoe Schwarz RN - 06/21/2020 10:00 AM EDT Addended by: ZOE SCHWARZ on: 06/23/2020 01:15 PM Modules accepted: Orders documented in this encounter Plan of Treatment Upcoming Encounters Date Type Specialty Care Team Description 10/11/2022 Office Visit Dermatology Virgilio Mckeon MD [facility] DR CHRISTIANO HENSON-DERMAT OLOGY [place], [place] [address] (Leroy bhatia) 10/16/2022 Office Visit Otolaryngology Frank Buchanan MD [facility] OTOLARYNGOLOGY D EPT. [place], [place] [address] (Leroy bhatia) 11/29/2022 Appointment Hematology and Oncology 11/29/2022 Office Visit Radiation Oncology Emerald Leyva APRN [facility] RADIATION ONCCESAR [place], [place] [address] (Leroy bhatia) documented as of this encounter Results CT [...] who have questions please contact the health respiratory care practitioner that requested your imaging first. ? Electronically signed by: Mane benítez MD, [facility] ([phone]), at 06/27/2021 3:38 PM Narrative 06/27/2021 3:38 PM EDT EXAMINATION: CT [...] ho have questions please contact the health respiratory care practitioner that requested your imaging first. Electronically signed by: Mane benítez MD, [facility] ([phone]), at 06/27/2021 3:38 PM Dexter Matute MD IMG CT ORDERABLES documented in this encounter Visit Diagnoses Diagnosis S/P lobectomy of lung Other postprocedural status Primary adenocarcinoma of right lung S/P lobectomy of lung Other postprocedural status Primary adenocarcinoma of right lung documented in this encounter Care Teams Lining Ironer Relationship Specialty Start Date End Date Dexter Pereira MD PCP - General Internal Medicine 06/21/20 11/20/21 [address] [place] [address] documented as of this encounter
--- OUTSIDE RECORDS SUMMARY | 2022-10-09 16:13 | XMS_ITS | Encounter Summary ---
:1940 Author Organization [facility] [place] [address] Care Team Providers Name Role Phone Giorgio Cardona MD Primary Care Provider Reason for Visit Reason Comments Annual Wellness Visit Encounter Details Date Type Department Care Team Description 07/24/2019 Office Visit Internal Medicine Giorgio Cardona, Maria Alejandra al hypertension; at [facility] Vitamin D deficiency; [facility] Cough, pe rsistent; [facility] Preventative health care; [place], [place] GENERAL INTERNAL S/P mitral valve repair; [id number] MEDICINE Gastroesophageal reflux disease without esophagitis [phone] [place], [place] [address] Social History Tobacco Use Types Packs/Day Years Used Date Smoking Tobacco: Never Smokeless Tobacco: Never Alcohol Use Standard Drinks/Week Comments Yes 0 (1 standard drink = 0.6 oz pure alcoho l) RARE Sex Assigned at Date Recorded Not on file documented as of this encounter Last Filed Vital Signs Vital Sign Reading Time Taken Comments Blood Pressure 128/66 07/24/2019 8:39 AM EDT Pulse 52 07/24/2019 8:39 AM EDT Temperature 36.3 ??C (97.4 ??F) 07/24/2019 8:39 AM EDT Respiratory Rate 16 07/24/2019 8:39 AM EDT Oxygen Saturation 100% 07/24/2019 8:39 AM EDT Inhaled Oxygen Concentration - - Weight 62.6 kg (138 lb) 07/24/2019 8:39 AM EDT Height 162.6 cm (5' 4) 07/24/2019 8:39 AM EDT Body Mass Index 23.69 07/24/2019 8:39 AM EDT documented in this encounter Progress Notes Marco Antonio Kim Jr., MD - 07/24/2019 9:00 AM EDT Annual Assessment of Medical Issues - Annual Wellness Visit Mr. Alfredito Mina, a 79 y.o. male, presents today for a Medicare Annual Wellness Visit. Self assessment of Health Status: (including patient concerns) #Chronic Cough - spirometry 06/30/19 showed mild obstructive deficit - breathing pretty darn good on Combivent- uses it in AM and PM - has hernias from the cough- no pain, nausea, vomting; has had increased constipation, reporting pencil-thin stool since starting MiraLax - MiraLax helps #GERD - currently not taking Prilosec - using Tums on average twice per day- depends on what he eats/drinks, if he watches his diet then none - triggers: acidic foods, spicy food, coffee - does not drink alcohol - heartburn at night #Post-Nasal Drip - rhinorrhea once in a while - using loratadine daily #Falls - Has had 7 or 8 falls in the last year, mostly when working/tripping - No LOC, chest pain, dyspnea, nausea, scotomas, incontinence - Gets dizzy sometimes if he moves his head or turns too quickly, will last 1-2 seconds, has caused him to stagger #Dysphagia - swelling on chest/neck getting larger - occasionally coughs with swallowing #Healthcare maintenance - Last colonoscopy 2012 with tubular adenoma x2 - No flu shot this season Brother has prostate cancer- c/o polyuria when drinking lots of water, no dysuria, urgency, hesitancy, hematuria; has nocturia x2 over the last year - drinking twice as much water as he used to - for dry eye- using OTC eye drops, hasn't used it in a while, attributes this to extra fluid intake Other providers: dermatology, dentist once per year, eye doctor once per year Suppliers: [facility] Home Safety: (Co2 and smoke detectors) no Hearing difficulty: no Memory issues (mini-cog score 5 ): yes Advanced directives: Yes Health Risk Assessment (HRA): (all responses reviewed including blank responses) Annual Wellness Visit Responses: myD-H Annual Wellness Visit Responses 07/24/2019 Health in general Good Quality of life Good Physical health Good Mental health Fair Satisfaction with social activities Excellent Ability to carry out social activities Very Good Ability to carry out physical activities Completely Bothered by emotional problems Often Rate of fatigue Mild Rate of pain 1 PROMIS-10 Physical Health Score 50.8 PROMIS-10 Mental Health Score 43.5 Hearing Loss Yes Activity - low level (Bathing, Dressing, Eating, Mobility, Using toilet, Grooming) - Activity - high level (Laundry, Housekeeping, Banking, Shopping, Use phone, Food Prep, Transportation, Taking meds) - IADLS - Help - Fallen in last year No Difficulties with balance or walking Declines to answer Injured as a result of a fall No Walkways free of cords/clutter Yes Smoke detectors in house No Difficulty walking 1/4 mile No or some difficulties Difficulty climbing a flight of stairs No or some difficulties Involuntarily lost > 10 pounds Yes Feel everything is an effort/could not get going Rarely or sometimes (2 times or less/week) Physical activity level Regular physical activity (at least 2-4 hours per week) Disability Score (FiND) 3 (Frail) Little interest or pleasure Not at all Down, depressed, hopeless Several days Trouble sleeping - Tired or no energy - Poor appetite or overeating - Feeling like a failure - Trouble concentrating (newspaper) - Moving or speaking slowly - Would be better off - Total PHQ-9 - Feel lonely or isolated Sometimes Have money for everyday living Yes Confident in managing health problems Somewhat confident Confident filling medical forms Quite a bit Medication finances No Smoking Status Never Drinking frequency Never Drinks per day 0 drinks 6+ drinks on one occasion Never Audit-C Score 0 (No Risk) 10 mins of vigorous physical activity 7 days Time spent on vigorous physical activity 90 minutes or more 10 mins of moderate physical activity 6 days Time spent on moderate physical activity 90 minutes or more Eat Fruit 1 - 2 times per week Eat Vegetables 3 - 5 times per week Wear Seatbelt Always Tooth or Mouth Problems No Urinary Incontinence Yes Sexually active Yes Live Alone - School Graduated from high school or GED Employment Status Currently working Hours per week 40 or more hours Combined Household Income Less than $10,000 # People Supported 2 Who is taking survey I am (patient) Past/Family/Social History/Medications and Allergies reviewed and/or documented below. Patient reported measures: Pain: Physical Health: Fall: PHQ-9 QUESTIONNAIRE SCORE ONLY (AMB) 05/13/2019 PHQ - 9 Score (Clinic) 3 (Minimal Depression) PHQ - 9 Score (Patient) - Some recent data might be hidden Wt Readings from Last 3 Encounters: 07/24/19 62.6 kg (138 lb) 06/30/19 59.5 kg (131 lb 3.2 oz) 06/24/19 60.3 kg (133 lb) Hearing assessment (whisper test, rubbing fingers) PHQ-9 QUESTIONNAIRE SCORE ONLY (AMB) 05/13/2019 PHQ - 9 Score (Clinic) 3 (Minimal Depression) PHQ - 9 Score (Patient) - Some recent data might be hidden Patient Active Problem List Diagnosis ??? Splinter [...] features. 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 [id number]; KRAS negative, EGFR negative --09/2010: CT scan - normal --02/2011: CT scan --09/2011: CT scan - negative annual CT's afterwards Geriatric Functional Status Instrumental ADLs Can perform Cannot Comments Meals/Cooking x Laundry x Cleaning x Finances x does finances- by choice Shopping x Transportation x Telephone x Basic ADLS Can perform Cannot Comments Bathing x Walking x Transferring x Dressing x Feeding x Toileting x Geriatric Screens Yes No comments Medications Reviewed x Incontinence - Urine x Incontinence - Feces x Falls x see above Driving x In Home Services x Lifeline x Assist Device x ( ) stefania ( ) jonathon Depression Risk x Outpatient Encounter Medications as of 07/24/2019 Medication Sig Dispense Refill ??? ipratropium-albuterol (DUONEB) 0.5 mg-3 mg(2.5 mg base)/3 mL Solution for Nebulization Take 0.5 mg by nebulization 4 times daily. J45.909 1 Box 4 ??? atenolol (TENORMIN) 50 mg Tablet Take [...] 2 times daily. 180 capsule 3 ??? potassium chloride (K-DUR/KLOR-CON) 10 mEq extended release tablet Take 1 tablet by mouth daily.30 tablet 11 ??? guaiFENesin 600 mg Tablet Extended Release 12hr Take 1,200 mg by mouth 2 times daily. ??? loratadine (CLARITIN) 10 mg Tablet Take 10 mg by mouth daily. ??? ipratropium-albuterol (COMBIVENT RESPIMAT) 20-100 mcg/actuation Mist Inhale 1 puff into the lungs every 6 hours as needed for Wheezing. (Patient not taking: Reported on 06/30/2019) 1 Inhaler 12 ??? polyethylene glycol (MIRALAX) 17 gram Powder in Packet Take 17 g by mouth daily. No facility-administered encounter medications on file as of 07/24/2019. Social History Socioeconomic History ??? Marital status: [...] on phone: None Gets together: None Attends rastafarian service: None Active member of club or organization: None Attends meetings of clubs or organizations: None Relationship status: None ??? Intimate partner violence: Fear of current or ex partner: None Emotionally abused: None Physically abused: None Forced sexual activity: None Other Topics Concern ??? None Social History Narrative ??? None family history includes Asthma in his mother; Heart Failure in his father; Thyroid Disease in his paternal grandmother. Review of Systems: Constitutional - (- ) fevers (- ) chills, (- ) sweats, (- ) fatigue Allergic/Immunologic - (- ) rash Cardiovascular - ( -)chest pain ( -)palpitations Integument/Breast - (- ) lesions, lumps, nodules Respiratory - (- )SOB, NIEVES ( +)cough, sputum (+ )wheezing HEENT - ( +) diffculty swallowing (+ ) nasal congestion, postnasal drip Psychiatric - (- ) sadness, depression (- ) anxiety, panic (- ) memory loss (- ) insomnia Neurological - ( -) numbness, tingling, loss of sensation ( -) weakness or function of limbs (- ) headaches Gastrointestinal - (- ) abdominal pain (- ) nausea, (+ )GERD (- ) constipation, diarrhea (- ) blood in stool Genitourinary - (- ) abnormal discharge (- ) lumps, masses or nodules ( +) nocturia, (- ) dysuria, polyuria Heme/Lymph - (- ) lymph node swelling Musculoskeletal - ( +) pain at rest or with movement Objective Vitals: 07/24/19 0839 Resp: 16 Weight: 62.6 kg (138 lb) Height: 162.6 cm (5' 4) Gen - WDWN male, appears stated age, NAD, pleasant and conversant HEENT - EOMI, PERRL, sclerae anicteric, oropharynx pink and moist without lesions Neck - Full range of motion, bony protruberance on superior sternum, no neck masses Lungs - CTAB Heart - RRR, S1 and S2 normal, no MRG Abdomen - Soft, nontender, nondistended, NABS Extremities - trace pretibial edema Neurological - no gross CN deficits, strength and sensation intact, no cerebellar deficits, gait smooth and coordinated Assessment/Plan: Mr. Mina was seen today for a Medicare Annual Wellness Visit. 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 Unfortunately, this has led to a few falls over the past year, and he was advised to reduce his workload. In addition, his MiniCog was 5/5 however he scored a 14 on SLUMS, suggesting some underlying MCI. That will need close follow up. Full details of plan below: #MCI - 14 on SLUMS - f/u one month #Chronic Cough - significant improvement in symptoms - continue Combivent #GERD - Discussed H2 jessa- patient prefers dietary control #Falls - Usually occur at work, most likely mechanical - No symptoms concerning for cardiac, neurogenic etiologies - Patient advised to reduce workload #Prostate Cancer screening - Polyuria and nocturia likely due to excess fluid intake - Discussed the risks and benefits of PSA, including clinical uncertainty associated with mildly elevated PSA and morbidity of diagnosis and procedures but potential benefit if PSA is significantly elevated - PSA test deferred #Hypothyroidism - TSH 0.58 - Continue levothyroxine at current dose #Healthcare maintenance - Discussed colonoscopy d/t polyps in 2012, made recommendation to have another given patient's lifeexpectancy and functional status - Discussed Shingrix, currently unavailable - Otherwise up to date SCREENING SCHEDULE & IMMUNIZATIONS - Health Maintenance Topic Date Due ??? Zoster vaccine (1 of 2) 1988 ??? Influenza (Flu) vaccine (1 of 1 - Influenza standard series) 07/13/2019 ??? Tetanus vaccine 05/08/2024 ??? Pneumo vaccine (65+) Completed ??? Tdap adult Completed RISK FACTORS (including any positives from HRA) and 3. PERSONALIZED HEALTH ADVICE - [x] A copy of the Risk Factors and Personalized Health Advice and Health Maintenance List was copiedto the patient's After Visit Summary. If using opioids or at risk for OUD, the benefits of using other, non-opioid pain therapies was discussed. Patient Instructions: There are no Patient Instructions on file for this visit. I counselled the patient on the above [...] by one of my nurses, letter, or [facility]. Next Appointment: No follow-ups on file. Total time: Minutes, Of the visit time was spent in [id number] counselling of the above issues Orders placed in this Encounter: No orders of the defined types were placed in this encounter. Laboratory Studies Recent Results (from the past 72 hour(s)) Hemogram Result Value Ref Range WBC 4.4 4.0 - 9.5 x10(3)/mcL RBC 4.10 (L) 4.58 - 5.54 x10(6)/mcL Hemoglobin 13.5 (L) 13.7 - 16.5 gm/dL Hematocrit 40.4 (L) 40.5 - 48.5 % MCV 98.5 (H) 82.9 - 93.1 fL MCH 32.9 (H) 27.5 - 32.1 pg MCHC 33.4 32.0 - 35.7 gm/dL Platelets 174 145 - 357 x10(3)/mcL RDWSD 51.4 (H) 36.0 - 45.0 fL RDWCV 14.0 (H) 11.4 - 13.8 % MPV 11.4 7.6 - 12.9 fL nRBC % Auto 0.0 % nRBC Abs Auto 0.000 0.000 - 0.000 x10(3)/mcL Differential, Automated Result Value Ref Range Neutrophils % 60.4 % Neutr Abs (ANC) 2.68 1.70 - 6.10 x10(3)/mcL Lymphocytes % 20.5 % Lymphocytes Abs 0.9 0.9 - 3.2 x10(3)/mcL Monocytes % 16.3 % Monocyte Abs 0.7 0.3 - 0.9 x10(3)/mcL Eosinophils % 1.4 % Eosinophils Abs 0.1 0.0 - 0.4 x10(3)/mcL Basophils % 0.9 % Basophils Abs 0.0 0.0 - 0.1 x10(3)/mcL Immature Gran % 0.50 % Becki Gran Abs 0.02 0.00 - 0.04 x10(3)/mcL Giorgio Cardona MD - 07/24/2019 9:00 AM EDT I have seen the patient and reviewed the Associate Provider's above history and I agree with the details as written. The assessment and plan were formulated in discussion with me and I agree with them as documented. Pertinent History: Cough is better - combivent twice daily - 'breathing is darned good' Not taking prilosec - rhinnorhea occasionally - 7-8 falls - in context of work at this time. Occasionally dizzy when moves head - no n/v, Some swallowing - Mini cog better today Pertinent Exam: Vitals: 07/24/19 0839 BP: 128/66 BP Location (NBP): Right arm Patient Position: Sitting BP Cuff Sizes: Adult (25-34 cm) Pulse: 52 Resp: 16 Temp: 36.3 ??C (97.4 ??F) TempSrc: Oral SpO2: 100% Weight: 62.6 kg (138 lb) Height: 162.6 cm (5' 4) Major issues addressed: # Hoarseness Discussed today - conservative management. 2. Hyperthyroidism s/p radioactive iodine? 3. 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 --continue to monitor biochemical parameters ?? 4. DJD Knee? -- Very pleased with results. ?? 5. S/p Mitral Regurgitation? No symptoms - all stable. repeat 6. Depression/Insomnia? --declines other medications 7. Lung Cancer? --recent CT scan 05/2019 satisfactory. 8. Pancreatic Lesion? --last MRI was in March 2013 - recommendation was stability and hence no need for further f/u. 9. GERD? Take prilosec regularly 10. Prostate Cancer? Will see Rad onc ??regularly - needs to make an appointment with her 11. Hypertension? Hypertension Plan of Care [X]??Stable and controlled: continue current medications as prescribed ?? [ ]??Uncontrolled: change medication as follows: ?? [ ]??Life style modifications discussed: weight loss, low salt diet, exercise and moderation of alcohol intake ?? [ ]??Return for assessment in ?? This plan of care was made in collaboration with the patient/family ?? 13. Dyslipidemia? Await labs 14. Preventative --discussed routine prevention of health including diet and exercise and weight management --personalized health program discussed with the patient --explained importance of vaccinations and reasoning for such --discussed preferences with regard to colon cancer screening and prostate cancer (males) and breastcancer/osteoporosis (females) --ascertained DPOA-h and advanced directives and discussed briefly advanced care planning as well. --the patient currently needs: new shingles vaccine, colonoscopy for polyps - discussed in detail. Daughter would make decision (Erin). 15. Memory Problem SLUMS - suggest bring another person to visit. Will need new SLUMS and hx 16. Worry about PSA Discussed PSA check at this time. 17. Hernia Symptomatic management documented in this encounter Plan of Treatment Upcoming Encounters Date Type Specialty Care Team Description 10/11/2022 Office Visit Dermatology Virgilio Mckeon MD [facility] DR CHRISTIANO [place]ENSON[place], [place] [address] (Wo sriram) 10/16/2022 Office Visit Otolaryngology Frank Buchanan MD [facility] OTOLARYNGOLOGY Sarah EPT[address] [place], [place] [address] (Wo rk) 11/29/2022 Appointment Hematology and Oncology 11/29/2022 Office Visit Radiation Oncology Emerald Leyva APRN [facility] RADIATION ONCCESAR CANO [place], [place] [address] (Leroy bhatia) documented as of this encounter Visit Diagnoses Diagnosis Essential hypertension Unspecified essential hypertension Vitamin D deficiency Unspecified vitamin D deficiency Cough, persistent Cough Preventative health care Routine general medical examination at a health care facility S/P mitral valve repair Other postprocedural status Gastroesophageal reflux disease without esophagitis Esophageal reflux documented in this encounter Care Teams Balancer Scale Relationship Specialty Start Date End Date Giorgio Cardona MD PCP - General General Internal Medicine 11/29/[address] [facility] [place] [address] documented as of this encounter
--- OUTSIDE RECORDS SUMMARY | 2022-10-09 16:13 | XMS_ITS | Encounter Summary ---
:1940 Author Organization [facility] Address [facility] [place] [address] Care Team Providers Name Role Phone Dexter Pereira MD Primary Care Provider Encounter Details Date Type Department Care Team Description 09/20/2020 Office Visit General Surgery at [facility], Gilson Coleman recurrent [facility] inguinal hernia [facility] wit hout obstruction or Drive DR day [place], [place] GENERAL SURGERY [address] [place] [address] [phone] Social History Tobacco Use Types Packs/Day Years Used Date Smoking Tobacco: Never Smokeless Tobacco: Never Alcohol Use Standard Drinks/Week Comments Never 0 (1 standard drink = 0.6 oz pure alcoho l) RARE Sex Assigned at Date Recorded Not on file documented as of this encounter Last Filed Vital Signs Vital Sign Reading Time Taken Comments Blood Pressure 142/71 09/20/2020 11:17 AM EST Pulse 70 09/20/2020 11:17 AM EST Temperature 36.6 ??C (97.8 ??F) 09/20/2020 11:17 AM EST Respiratory Rate 16 09/20/2020 11:17 AM EST Oxygen Saturation 100% 09/20/2020 11:17 AM EST Inhaled Oxygen Concentration - - Weight 63.6 kg (140 lb 3.2 oz) 09/20/2020 11:17 AM EST Height - - Body Mass Index 24.07 08/19/2020 3:03 PM EDT documented in this encounter Progress Notes Dulce Osborne MD - 09/20/2020 11:45 AM EST Alfredito Mina was seen in follow up with complaints of more discomfort from his left inguinalhernia. He continues to have no problems with urination or bowel movements. He wants it checked out to be sure it is nothing more avendaño his hernia. On exam his left inguinal hernia is more prominent and difficult to reduce. His right one remains small. Given his worsening symptoms, we have decided to proceed with surgery. Informed consent obtained. documented in this encounter Plan of Treatment Upcoming Encounters Date Type Specialty Care Team Description 10/11/2022 Office Visit Dermatology Virgilio Mckeon MD [facility] DR CHRISTIANO HENSON[place]DERMAT [place]LOGY [place], [place] [address] (Wo rk) 10/16/2022 Office Visit Otolaryngology Frank Buchanan MD [facility] OTOLARYNGOLOGY Sarah EPT[address] [place], [place] [address] (Wo rk) 11/29/2022 Appointment Hematology and Oncology 11/29/2022 Office Visit Radiation Oncology Emerald Leyva APRN [facility] RADIATION ONCCESAR GY [place], [place] [address] (Wo rk) documented as of this encounter Visit Diagnoses Diagnosis Unilateral recurrent inguinal hernia wit hout obstruction or gangrene Inguinal hernia without mention of obstr uction or gangrene, recurrent unilateral or unspecified documented in this encounter Care Teams Ton Container Shipper Relationship Specialty Start Date End Date Dexter Pereira MD PCP - General Internal Medicine 06/21/20 11/20/21 [address] [place] [address] documented as of this encounter
--- OUTSIDE RECORDS SUMMARY | 2022-10-09 16:13 | XMS_ITS | Encounter Summary ---
:1940 Author Organization [facility] [place] [address] Care Team Providers Name Role Phone Giorgio Cardona MD Primary Care Provider Reason for Visit Reason Onset Date Comments Other 06/12/2019 Encounter Details Date Type Department Care Team Description 06/12/2019 Telephone Internal Medicine at [facility] [place] [address] Social History Tobacco Use Types Packs/Day Years Used Date Smoking Tobacco: Never Smokeless Tobacco: Never Alcohol Use Standard Drinks/Week Comments Yes 0 (1 standard drink = 0.6 oz pure alcoho l) RARE Sex Assigned at Date Recorded Not on file documented as of this encounter Miscellaneous Notes Telephone Encounter - Chrissy Issa RN - 06/12/2019 3:37 PM EDT Message from Alfredito being forwarded to Dr. Salgado ([facility] covering for Dr. Cardona. Message: pt called to give us an update on how he is doing. Pt states he got the nebulizer and it is working well. Pt feels like he is finally getting better. This is just an FYI, no need to call back. Telephone Encounter - Karly Cote - 06/12/2019 3:19 PM EDT Message: pt called to give us an update on how he is doing. Pt states he got the nebulizer and it isworking well. Pt feels like he is finally getting better. This is just an FYI, no need to call back. Ask caller their first and last name and relationship to the patient: self Best time to call back: any Ok to leave a message: Ok to send my- message: Offered Appointment: MA/Nurse/[place] contacted via: Message: y Call: n Pager: n documented in this encounter Plan of Treatment Upcoming Encounters Date Type Specialty Care Team Description 10/11/2022 Office Visit Dermatology Virgilio Mckeon MD [facility] DR [address]RI[address] HENSON[facility]DER[place] OLOGY [place], [place] [address] (Wo rk) 10/16/2022 Office Visit Otolaryngology Frank Buchanan MD [facility] OTOLARYNGOLOGY Sarah EPT. [place], [place] [address] (Wo rk) 11/29/2022 Appointment Hematology and Oncology 11/29/2022 Office Visit Radiation Oncology Emerald Leyva APRN [facility] RADIATION ONCOLO GY [place], [place] [address] (Wo rk) documented as of this encounter Visit Diagnoses Not on filedocumented in this encounter Care Teams Burn Nurse Relationship Specialty Start Date End Date Giorgio Cardona MD PCP - General General Internal Medicine 11/29/17 0 [facility] [place] [address] documented as of this encounter
--- OUTSIDE RECORDS SUMMARY | 2022-10-09 16:13 | XMS_ITS | Encounter Summary ---
:1940 Author Organization [facility] [place] [address] Care Team Providers Name Role Phone Giorgio Cardona MD Primary Care Provider Encounter Details Date Type Department Care Team Description 05/29/2019 Telephone Internal Medicine [place] [facility] [place] [phone] Social History Tobacco Use Types Packs/Day Years Used Date Smoking Tobacco: Never Smokeless Tobacco: Never Alcohol Use Standard Drinks/Week Comments Yes 0 (1 standard drink = 0.6 oz pure alcoho l) RARE Sex Assigned at Date Recorded Not on file documented as of this encounter Miscellaneous Notes Telephone Encounter - Marianne Melendrez CCMA - 05/30/2019 10:16 AM EDT PC to remind patient he has had an ultrasound of his scrotum in October. Dr. Cardona is aware of lump. Telephone Encounter - Marianne Melendrez CCMA - 05/30/2019 9:19 AM EDT PC to answer patients questions about directions given in appointment. I read him the instructions in the after visit summary. He will be picking up the Flonase today and voiced and understanding of every thing I read. He also stated he has a lump in his testicle that he forgot to tell Dr. Cardona about. It is only sore when he uses the restroom and he has had it for a while. We also went over when his next appointment is with Karo Pham 06/04/19 arrive at 1245. documented in this encounter Plan of Treatment Upcoming Encounters Date Type Specialty Care Team Description 10/11/2022 Office Visit Dermatology Virgilio Mckeon MD [facility] DR CHRISTIANO HENSON-DERMAT OLOGY [place], [place] [address] (Wo rk) 10/16/2022 Office Visit Otolaryngology Frank Buchanan MD [facility] OTOLARYNGOLOGY Sarah EPT. [place], [place] [address] (Wo rk) 11/29/2022 Appointment Hematology and Oncology 11/29/2022 Office Visit Radiation Oncology Emerald Leyva APRN [facility] RADIATION ONCOLO GY [place], [place] [address] (Wo rk) documented as of this encounter Visit Diagnoses Not on filedocumented in this encounter Care Teams Fortune Cookie Maker Relationship Specialty Start Date End Date Giorgio Cardona MD PCP - General General Internal Medicine 11/29/17 0 [facility] [place] [address] documented as of this encounter
--- OUTSIDE RECORDS SUMMARY | 2022-10-09 16:13 | XMS_ITS | Encounter Summary ---
:1940 Author Organization [facility] [place] [address] Care Team Providers Name Role Phone Girogio Cardona MD Primary Care Provider Encounter Details Date Type Department Care Team Description 08/27/2019 Telephone Radiation Oncology at SamJazmine funes RN [address] [phone] Social History Tobacco Use Types Packs/Day Years Used Date Smoking Tobacco: Never Smokeless Tobacco: Never Alcohol Use Standard Drinks/Week Comments Yes 0 (1 standard drink = 0.6 oz pure alcoho l) RARE Sex Assigned at Date Recorded Not on file documented as of this encounter Miscellaneous Notes Telephone Encounter - Jazmine Vargas RN - 08/27/2019 3:02 PM EDT RESEARCH NURSE TELEPHONE NOTE [id number] Phase III Randomized Study Of High Dose 3D-ROASTERMAN/IMRT Versus Standard Dose 3D-ROASTERMAN/IMRT in Patients Treated for Localized Prostate Cancer Date: 08/27/2019 Reason for call: Call to [facility] lab and spoke with Bita . We have PSA result, but no testosterone result yet that was drawn on 08/21/19 . She states that only a PSA was drawn. Next called patient at this number. (home) Spoke with patient to inform him of PSA 0.2 And explained he will need to return to lab for draw fortestosterone. He agreed to do this tomorrow. Plan: Will reach out to Becka and pt with testosterone results once they are obtained. Yearly follow-up appointment next August with nurse practitioner with PSA and testosterone prior. Pt understands and agrees with plan and knows he can call the clinic with any further questions or concerns. documented in this encounter Plan of Treatment Upcoming Encounters Date Type Specialty Care Team Description 10/11/2022 Office Visit Dermatology Virgilio Mckeon MD [facility] DR CHRISTIANO HENSON-DERMAT OLOGY [place], [place] [address] (Wo rk) 10/16/2022 Office Visit Otolaryngology Frank Buchanan MD [facility] OTOLARYNGOLOGY Sarah EPT. [place], [place] [address] (Wo rk) 11/29/2022 Appointment Hematology and Oncology 11/29/2022 Office Visit Radiation Oncology Emerald Leyva APRN [facility] RADIATION ONCOLO GY [place], [place] [address] (Wo rk) documented as of this encounter Visit Diagnoses Diagnosis Malignant neoplasm of prostate documented in this encounter Care Teams Watch Engine Operator Relationship Specialty Start Date End Date Giorgio Cardona MD PCP - General General Internal Medicine 11/29/17 0 [facility] [place] [address] documented as of this encounter
--- OUTSIDE RECORDS SUMMARY | 2022-10-09 16:13 | XMS_ITS | Encounter Summary ---
:1940 Author Organization [facility] [place] [address] Care Team Providers Name Role Phone Dexter Pereira MD Primary Care Provider Reason for Visit Reason Comments Other long bulging areas in groin both sides Encounter Details Date Type Department Care Team Description 08/03/2020 Office Visit Internal Medicine at hSilpa Arthur MD Scrotal anomaly; [facility] Bilateral recurrent inguinal hernia without obstruction or gangrene [place] [phone] Social History Tobacco Use Types Packs/Day Years Used Date Smoking Tobacco: Never Smokeless Tobacco: Never Alcohol Use Standard Drinks/Week Comments Yes 0 (1 standard drink = 0.6 oz pure alcoho l) RARE Sex Assigned at Date Recorded Not on file documented as of this encounter Last Filed Vital Signs Vital Sign Reading Time Taken Comments Blood Pressure 148/74 08/03/2020 9:18 AM EDT Pulse 65 08/03/2020 8:19 AM EDT Temperature 36.3 ??C (97.4 ??F) 08/03/2020 8:19 AM EDT Respiratory Rate 16 08/03/2020 8:19 AM EDT Oxygen Saturation 99% 08/03/2020 8:19 AM EDT Inhaled Oxygen Concentration - - Weight 64 kg (141 lb 3.2 oz) 08/03/2020 8:19 AM with sh oes on EDT Height 160.5 cm (5' 3.19) 08/03/2020 8:19 AM EDT Body Mass Index 24.86 08/03/2020 8:19 AM EDT documented in this encounter Progress Notes Shilpa Arthur MD - 08/03/2020 8:30 AM EDT Subjective: Katlin Mina is a 80 y.o. male with bilateral inguinal hernia s/p repair (most recently in 2010) who presents with 2 weeks of worsening bulge in his groin. Patient reports that he has had the bulge in his groin for many years. However, over the past 2 weeks, he noted that the bulge has increased in size. He denies pain in the area. Denies dysuria, urinary frequency, urinary urgency. Reports that bulge increases with cough. No difference in size with sitting versus standing versus lying down. Patient reports that he has started sexual activity again. Denies history of STDs. Not currently using condoms. Reports some testicular pain with sexual activity. Review of Systems General: Denies fevers/chills, weight changes Pulm: Denies SOB CV: Denies chest pain GI: Denies nausea/vomiting : As per HPI Past Medical History: Past Medical History: Diagnosis Date ??? Arthritis knee replacement right ??? Aspiration into lower respiratory tract 05/06/2013 ??? Colon polyps ??? Difficulty in swallowing ??? Dry mouth ??? Dyslipidemia ??? GERD (gastroesophageal reflux disease) ??? Hypertension ??? Inguinal hernia left recurrent ??? Lung cancer ??? Multinodular goiter ??? Pancreatic cyst ??? Prostate cancer s/p XRT ??? Skin cancer 07/2013 squamous cell Patient Active Problem List Diagnosis Code ??? [...] T14.8XXA ??? Bunion M21.619 Past Surgical History: Past Surgical History: Procedure [...] MONITORING, SETUP performed by FRANK MAC at [facility] MAIN OR ??? PRO COLONOSCOPY, REMV LESN, SNARE 01/06/2013 COLONOSCOPY, POLYPECTOMY, REMOVAL LESION BY SNARE performed by Josh Jeffery MD at [facility] ENDOSCOPY ??? PRO REPAIR RECURR INGUIN KIRAN, REDUCIBL 03/10/2011 HERNIA REPAIR, INGUINAL, RECURRENT performed by NOREEN BOWIE at [facility] MAIN OR ??? PRO THYROIDECTOMY=SUBSTERNAL, TRANSCERV 11/30/2011 THYROIDECTOMY, INCL. SUBSTERNAL, CERVICAL APPROACH performed by FRANK MAC at [facility] MAIN OR ??? PRO TOTAL KNEE ARTHROPLASTY 06/19/2012 @TOTAL KNEE ARTHROPLASTY performed by ADAM CARRERO at [facility] MAIN OR ??? ROTATOR CUFF REPAIR 2013 ??? UMBILICAL HERNIA REPAIR ??? UPPER GI ENDOSCOPY, EXAM 01/29/2012 UPPER GI ENDOSCOPY performed by VICKI SON at [facility] ENDOSCOPY Family History: Family History Problem Relation Age of Onset ??? Asthma Mother ??? Heart Failure Father ??? Thyroid Disease Paternal Grandmother Allergies: Allergies Allergen Reactions ??? Cyclobenzaprine Urinary retention, xerostomia ??? Lactose Other (See Comments) Sneezing Medications: Current Outpatient Medications on File Prior to Visit Medication Sig Dispense Refill ??? levothyroxine (SYNTHROID) 125 mcg Tablet TAKE ONE TABLET BY MOUTH EVERY MORNING 90 tablet 3 ??? ipratropium-albuterol (DUONEB) 0.5 mg-3 mg(2.5 mg base)/3 mL Solution for Nebulization Take 0.5 mg by nebulization 4 times daily. J45.909 1 Box 4 ??? ipratropium-albuterol (COMBIVENT RESPIMAT) 20-100 mcg/actuation Mist Inhale 1 puff into the lungs every 6 hours as needed for Wheezing. 1 Inhaler 12 ??? furosemide (LASIX) 20 mg Tablet Take [...] mouth daily. (Patient not taking: Reported on 08/03/2020) 90 tablet 3 No current facility-administered medications on file prior to visit. Social History: Tobacco: Never smoker Alcohol: Rare alcohol use Illicit: Denies Objective: BP 148/74 (BP Location (NBP): Right arm, Patient Position: Sitting, BP Cuff Sizes: Adult (25-34 cm)) Pulse 65 Temp 36.3 ??C (97.4 ??F) (Oral) Resp 16 Ht 160.5 cm (5' 3.19) Wt 64 kg (141 lb 3.2 oz) Comment: with shoes on SpO2 99% BMI 24.86 kg/m?? PHQ-9 QUESTIONNAIRE SCORE ONLY (AMB) 01/19/2020 PHQ - 9 Score (Clinic) - PHQ - 9 Score (Patient) 4 (Minimal Depression) Some recent data might be hidden Wt Readings from Last 3 Encounters: 08/03/20 64 kg (141 lb 3.2 oz) 06/21/20 61.4 kg (135 lb 6.4 oz) 06/18/20 61.2 kg (135 lb) Exam: General: WDWN man sitting in chair in NAD HEENT: NCAT, EOMI Pulm: No increased WOB GI: Soft, NT/ND : Bulge bilaterally next to iliac crest, mass in left testis Diagnostics: Us Scrotum (08/03/2020) 1. The testes bilaterally demonstrate dilated rete testes, without internal mass, or evidence of torsion. 2. Right-sided epididymal head cysts. No right-sided varicocele. There is a small hydrocele. 3. The left testis with a complex small to moderate hydrocele, and small 5 mm appendix epididymis and appendix testis. 4. There is a partially reducible relatively wide neck hernia, of the left inguinal canal, fat signature without peristalsis identified. Partially reducible, no definite bowel signature currently Assessment: Katlin Mina is a 80 y.o. male with bilateral inguinal hernia s/p repair (most recently in 2010) who presents with 2 weeks of worsening bulge in his groin. Based on imaging and physical exam, patient appears to have recurrent bilateral inguinal hernia L > R. No evidence of strangulation at this time although hernias are only partially reducible. Due to the recurrent episode, offered referral to general surgery for hernia repair. Patient would like to think about whether he would like to be referred to [facility] or [facility] due to proximity. Plan: - Refer to general surgery Orders Placed: Orders Placed This Encounter Procedures ??? US Scrotum The majority of this visit was spent in counseling and/or coordination of care as noted below. Time statement Minutes Total time spent in [id number] care with patient and/or family: 15 Time spent in counseling patient, family, and/or caregivers: 8 Counseling and discussion about the issues addressed in the assessment above, as well as about: [X] likely explanations for symptoms and physical exam findings [X] interpretation of available lab or other diagnostic test results [X] justification for additional diagnostic work up [X] expected benefits of treatment [X] possible side effects and risks of treatment [X] self-management strategies and resources [X] prognosis/anticipated course Levar Napier - 08/03/2020 8:30 AM EDT Images from the original note were not included. Subjective: Patient ID: Katlin Mina is a 80 y.o. 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 Bilateral groin bulges - noted 2 weeks ago, noticed lumps in the groin area, L sided lump is getting longer, both are getting worse, more prominent when patient coughs - associated with intermittent dull ache, sex makes the pain worse, pain not particularly worse standing vs lying down vs sitting down, pain does not radiate - patient's chronic cough is at baseline and somewhat improved, denied constipation (takes a laxative everyday, bowel movement 1-3x/day), does not recall acute worsening after a heavy lifting episode - patient notes tenderness in testicles, but this is not new and has been present for years - 4-5 weeks ago, patient has started having sex with a new partner: no condom, engaging in vaginal sex, no history of STDs, partner has no history of STDs and no other partners per patient - cannot recall which kind of hernia he had in the past, but noted that the 2011 repair was after noticing a bulge ?? Prostate Adenocarcinoma - treated with external beam radiation under RTOG protocol and received 79.2 Gy completed on 04/12/2007 adenocarcinoma, followed by radiation oncology - nocturia, sometimes can sleep uninterrupted, other times wakes up 3x to urinate, depends on fluid intake at night - 0.18 PSA 2018, 0.3 PSA [facility] 06/08/20 # No updates to PMH, PSH, medications, allergies, alcohol, smoking Review of Systems Constitutional: Negative for appetite change, chills, fatigue, fever and unexpected weight change. Respiratory: Negative for cough and shortness of breath. Cardiovascular: Positive for leg swelling. Negative for chest pain and palpitations. Gastrointestinal: Negative for abdominal distention, abdominal pain, anal bleeding, blood in stool, constipation, diarrhea, nausea and vomiting. Genitourinary: Positive for testicular pain. Negative for difficulty urinating, discharge, dysuria, frequency, genital sores, hematuria and penile pain. Objective: VS BP 148/74 (BP Location (NBP): Right arm, Patient Position: Sitting, BP Cuff Sizes: Adult (25-34 cm)) Pulse 65 Temp 36.3 ??C (97.4 ??F) (Oral) Resp 16 Ht 160.5 cm (5' 3.19) Wt 64 kg (141 lb 3.2 oz) Comment: with shoes on SpO2 99% BMI 24.86 kg/m?? Physical Exam Constitutional: General: He is not in acute distress. Appearance: Normal appearance. He is normal weight. He is not ill-appearing or toxic-appearing. Cardiovascular: Rate and Rhythm: Normal rate and regular rhythm. Heart sounds: Normal heart sounds. No murmur. No friction rub. No gallop. Pulmonary: Effort: Pulmonary effort is normal. No respiratory distress. Breath sounds: Normal breath sounds. No stridor. No wheezing, rhonchi or rales. Abdominal: General: Abdomen is flat. Bowel sounds are normal. There is no distension. Palpations: Abdomen is soft. Tenderness: There is no abdominal tenderness. There is no guarding or rebound. Hernia: A hernia is present. Hernia is present in the left inguinal area and right inguinal area. Genitourinary: Pubic Area: No rash. Penis: Normal. Scrotum/Testes: Normal. Neurological: Mental Status: He is alert. Assessment and Plan: Katlin Mina is a 80 y.o. 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 (Left without mesh in 1962) s/p reinforced mesh 2010presenting with bilateral bulges in the groin that become more accentuated when patient coughs in the context of increased sexual activity. # Bilateral inguinal hernia # s/p bilateral repair with mesh Patient has had history of bilateral inguinal hernia repairs, both sides currently with mesh, noted similar bulge when came for second repair in 2010. Physical exam consistent with bulge on both sides L > R with noted increase in size on the L when patient bears down. DDx favor recurrence of inguinal hernia, patient notably has US from 2018 of US showing R hydrocele and varicocele. Would recommendUS currently to better assess extent of hernia with possible referral to general surgery for revision. - F/u US of scrotum and inguinal canal - Consider referral to general surgery # Prostate adenocarcinoma # s/p external beam radiation 2006 0.18 PSA 2018, 0.3 PSA [facility] 06/08/20 - Reassured - Continue to follow up with radiation oncology for annual PSA # Elevated blood pressure Noted to be 148/74 today on repeat BP examination. Currently on furosemide and terazosin, unclear iffor indication of hypertension. Currently <150 would not initiate treatment today, but recommend follow up with PCP Levar Napier [facility] documented in this encounter Plan of Treatment Upcoming Encounters Date Type Specialty Care Team Description 10/11/2022 Office Visit Dermatology Virgilio Mckeon MD [facility] DR CHRISTIANO HENSON-DERMAT OLOGY [place], [place] [address] (Wo sriram) 10/16/2022 Office Visit Otolaryngology Frank Buchanan MD [facility] OTOLARYNGOLOGY Sarah EPT. [place], [place] [address] (Leroy bhatia) 11/29/2022 Appointment Hematology and Oncology 11/29/2022 Office Visit Radiation Oncology Autumn Emerald Lexy, [employer] [facility] [place] [address] (Wo rk) documented as of this encounter Results US Scrotum (08/03/2020 2:23 PM EDT) Anatomical Region Laterality Modality Pelvis Ultrasound Specimen (Source) Anatomical Collection Method Collection Time Re ceived Time Location / / Volume Laterality 08/03/2020 2:18 PM EDT Impressions 08/03/2020 2:36 PM EDT 1. The testes bilaterally demonstrate d ilated rete testes, without internal mass, or evidence of torsion. 2. Right-sided epididymal head cysts. N o right-sided varicocele. There is a small hydrocele. 3. The left testis with a complex small to moderate hydrocele, and small 5 mm appendix epididymis and appendix testis . 4. There is a partially reducible relat ively wide neck hernia, of the left inguinal canal, fat signature without p eristalsis identified. Partially reducible, no definite bowel signature currently. Thank you for letting us participate in the care of this patient. For questions regarding this report, please contact t he number below. Electronically signed by: Dexter navarro MD, [facility] ([phone]), at 2:29 PM ?Dexter Rosales, Staff Physician Electronically Signed Final Report ?? 02:35 pm Narrative 08/03/2020 2:36 PM EDT Scrotal ? (Signed Final 08/03/2020 02:35 pm) PATIENT INFO: ID #: ? [id number] ?: ??38 (80 yrs)(M) Name: ? KATLIN J ?Visit Date: 08/03/2020 02:18 pm ? RACQUEL PERFORMED BY: Performed By: ? Fernando ESTRELLA, Gage toro Attending: ?Bobby GALINDO, Cary Caal Referred By: ?SHILPA ARTHUR Location: ? [place] SERVICE(S) PROVIDED: ??[facility] - Scrotum and Contents with Limit ed Vascular ?[id number], [id number] ??evaluation - [id number] INDICATIONS: ??Scrotal bulge and pain COMPARISON: Ultrasound: Scrotal 10/24/2018 RIGHT TESTICLE: Measurement(cm) ? L: ??4.5 ?AP: ?? 2.5 ? TV: ??3.0 Vol (ml): ?17.3 Vascularity: ?Normal color Doppler vascularity Comment: ?Dilated rete testis RIGHT EPIDIDYMIS: Head: ?Epididymal cysts, largest me asuring ??0.6cm Body: ?Normal Tail: ?Normal Vascularity: ?? Normal RIGHT OTHER: Hydrocele: ? Small, internal ech oes Varicocele: ?Not visualized LEFT TESTICLE: Measurement(cm) ? L: ??4.1 ?AP: ?? 2.5 ? TV: ??2.8 Vol (ml): ?14.8 Vascularity: ?Normal color Doppler vascularity Comment: ?Dilated rete testis, appe ndix testis seen with ? calcifications LEFT EPIDIDYMIS: Head: ?Epididymal cysts, largest me asuring ??1.1 cm Body: ?Normal Tail: ?Normal Vascularity: ?? Normal Comment: ?Fat containing hernia vis ible lt inguinal canal ? measuring 6.0 cm neck measuring 2.0 LEFT OTHER: Hydrocele: ? Small Varicocele: ?Visualized Procedure Note Dexter Rosales MD - 08/03/2020Format ting of this note might be different from the original. Scrotal (Signed Final 08/03/2020 02:35 pm) PATIENT INFO: ID #: [id number] : 38 (80 y rs)(Lexy) Name: KATLIN Rodriguez Visit Date: 08/03/2020 02:18 pm RACQUEL PERFORMED BY: Performed By: Justina King RDMS Attending: Dexter Rosales MD Referred By: SHILPA ARTHUR Location: [place] SERVICE(S) PROVIDED: [facility] - Scrotum and Contents with Limited Vascular [id number], [id number] evaluation - [id number] INDICATIONS: Scrotal bulge and pain COMPARISON: Ultrasound: Scrotal 10/24/2018 RIGHT TESTICLE: Measurement(cm) L: 4.5 AP: 2.5 TV: 3.0 Vol (ml): 17.3 Vascularity: Normal color Doppler vascu larity Comment: Dilated rete testis RIGHT EPIDIDYMIS: Head: Epididymal cysts, largest measuri ng 0.6cm Body: Normal Tail: Normal Vascularity: Normal RIGHT OTHER: Hydrocele: Small, internal echoes Varicocele: Not visualized LEFT TESTICLE: Measurement(cm) L: 4.1 AP: 2.5 TV: 2.8 Vol (ml): 14.8 Vascularity: Normal color Doppler vascu larity Comment: Dilated rete testis, appendix testis seen with calcifications LEFT EPIDIDYMIS: Head: Epididymal cysts, largest measuri ng 1.1 cm Body: Normal Tail: Normal Vascularity: Normal Comment: Fat containing hernia visible lt inguinal canal measuring 6.0 cm neck measuring 2.0 LEFT OTHER: Hydrocele: Small Varicocele: Visualized IMPRESSION 1. The testes bilaterally demonstrate d ilated rete testes, without internal mass, or evidence of torsion. 2. Right-sided epididymal head cysts. N o right-sided varicocele. There is a small hydrocele. 3. The left testis with a complex small to moderate hydrocele, and small 5 mm appendix epididymis and appendix testis . 4. There is a partially reducible relat ively wide neck hernia, of the left inguinal canal, fat signature without p eristalsis identified. Partially reducible, no definite bowel signature currently. Thank you for letting us participate in the care of this patient. For questions regarding this report, please contact t he number below. Electronically signed by: Dexter navarro MD, [facility] ([phone]), at 2:29 PM Dexter Rosales, Staff Physician Electronically Signed Final Report 08/03 02:35 pm Shilpa Arthur MD IMG GEN ORDERABLES documented in this encounter Visit Diagnoses Diagnosis Scrotal anomaly Bilateral recurrent inguinal hernia with out obstruction or gangrene Inguinal hernia without mention of obstr uction or gangrene, recurrent bilateral Scrotal anomaly documented in this encounter Care Teams Dielectric Press Operator Relationship Specialty Start Date End Date Dexter Pereira MD PCP - General Internal Medicine 06/21/20 11/20/[address] [place] [id number] documented as of this encounter
--- OUTSIDE RECORDS SUMMARY | 2022-10-09 16:13 | XMS_ITS | Encounter Summary ---
:1940 Author Organization [facility] [place] [address] Care Team Providers Name Role Phone Giorgio Cardona MD Primary Care Provider Encounter Details Date Type Department Care Team Description 05/21/2019 Telephone [place] [facility] [place] Rachel, [place] [address] Social History Tobacco Use Types Packs/Day Years Used Date Smoking Tobacco: Never Smokeless Tobacco: Never Alcohol Use Standard Drinks/Week Comments Yes 0 (1 standard drink = 0.6 oz pure alcoho l) RARE Sex Assigned at Date Recorded Not on file documented as of this encounter Miscellaneous Notes Telephone Encounter - Nola Rachel RN - 05/21/2019 12:31 PM EDT Patient stopped in to talk with Dr. Cardona and states that he has a CT scan today at 3 and his coughis still there States its takes a while for sputum to come up, yellow to white color 99 Oxygen Saturation 60 Pulse Does have SOB Denies chest pain Patient was reassured to get the CT done and that we would go from there Anxious about what it is and would like results as soon as possible Staying hydrated and drinking water documented in this encounter Plan of Treatment Upcoming Encounters Date Type Specialty Care Team Description 10/11/2022 Office Visit Dermatology Virgilio Mckeon MD [facility] [address]-DERMAT [place]LOGY [place], [place] [address] (Wo rk) 10/16/2022 Office Visit Otolaryngology Frank Buchanan MD [facility] OTOLARYNGOLOGY Sarah EPT. [place], [place] [address] (Wo rk) 11/29/2022 Appointment Hematology and Oncology 11/29/2022 Office Visit Radiation Oncology Emerald Leyva APRN [facility] RADIATION ONCOLO GY [place], [place] [address] (Wo rk) documented as of this encounter Visit Diagnoses Not on filedocumented in this encounter Care Teams Feather Sawyer Relationship Specialty Start Date End Date Giorgio Cardona MD PCP - General General Internal Medicine 11/29/17 0 [facility] GENERAL [place] [address] documented as of this encounter
--- OUTSIDE RECORDS SUMMARY | 2022-10-09 16:13 | XMS_ITS | Encounter Summary ---
:1940 Author Organization [facility] [place] [address] Care Team Providers Name Role Phone Fabiano Celaya MD Primary Care Provider Encounter Details Date Type Department Care Team Description 10/22/2019 Hospital Encounter Gastroenterology at [facility] [place] Bowen Williamson [facility] [place] [address] [facility] [phone] GASTROENTEROLOGY [place], [place] [address] (Wo rk) Social History Tobacco [...] 10/11/2022 Office Visit Dermatology Virgilio Mckeon MD [facility] ER DR CHRISTIANO HENSON-DERMAT OLOGY [place], [place] [address] (Wo rk) 10/16/2022 Office Visit Otolaryngology Frank Buchanan MD [facility] OTOLARYNGOLOGMireille Smith EPT. [place], [place] [address] (Wo rk) 11/29/2022 Appointment Hematology and Oncology 11/29/2022 Office Visit Radiation Oncology Emerald Leyva, [facility] ER RADIATION ONCCESAR [place], [place] [address] (Wo rk) documented as of this encounter Visit Diagnoses Not on filedocumented in this encounter Care Teams Chick Sexer Relationship Specialty Start Date End Date Fabiano Celaya MD PCP - General Emergency Medicine 11/21/21 [address] [place] [address] documented as of this encounter
--- OUTSIDE RECORDS SUMMARY | 2022-10-09 16:13 | XMS_ITS | Encounter Summary ---
:1940 Author Organization [facility] [place] [address] Care Team Providers Name Role Phone Giorgio Cardona MD Primary Care Provider Encounter Details Date Type Department Care Team Description 07/18/2019 Telephone Internal Medicine at [facility] [place] [address] Social History Tobacco Use Types Packs/Day Years Used Date Smoking Tobacco: Never Smokeless Tobacco: Never Alcohol Use Standard Drinks/Week Comments Yes 0 (1 standard drink = 0.6 oz pure alcoho l) RARE Sex Assigned at Date Recorded Not on file documented as of this encounter Miscellaneous Notes Telephone Encounter - Yeni Collins CCMA - 07/18/2019 3:56 PM EDT I have called this patient and let him know to do blood work prior to his appointment documented in this encounter Plan of Treatment Upcoming Encounters Date Type Specialty Care Team Description 10/11/2022 Office Visit Dermatology Virgilio Mckeon MD [facility] ER DR CHRISTIANO HENSON-DERMAT [facility] [place] [address] (Wo rk) 10/16/2022 Office Visit Otolaryngology Frank Buchanan MD [facility] ER OTOLARYNGOLOGY D EPT. [place], [place] [address] (Wo rk) 11/29/2022 Appointment Hematology and Oncology 11/29/2022 Office Visit Radiation Oncology Emerald Leyva APRN [facility] RADIATION ONCOLO GY [place], [place] [address] (Wo rk) documented as of this encounter Results Vitamin D, 25-Hydroxy (07/24/2019 7:57 AM EDT) athologist Signature 25-OH Vit D 35 30 - 100 [facility] Total ng/mL [facility] Comment: Deficient <10 ng/mL Insufficient 10 to 29 ng/mL Sufficient 30 to 100 ng/mL Potential Intoxication >100 ng/mL According to the [place] National Osteoporosi s Foundation, Vitamin D concentrations >30 ng/mL are sufficient to protect bone health. ??The National Kidney Foundation has similarly stated that pat ients with Vitamin D concentrations <30ng/mL should be considered to be insu fficient or deficient. http://[employer]/nkf-guidelines http://[employer]/nejm-VitD The [employer] Vitamin D Immunoassay detec ts both 25-OH Vitamin D2 and 25-OH Vitamin D3, but only a total Vitamin D c oncentration is reported. Specimen Anatomical Collection Method Collection Time Receive d Time (Source) Location / / Volume Laterality Blood specimen 07/24/2019 7:57 AM 019 (specimen) EDT 11:29 AM EDT Resulting Agency Comment Spec In Lab Giorgio Cardona MD CHEMISTRY ORDERABLES Performing Organization Address City/State/[place] [address] Vitamin B12 (07/24/2019 7:57 AM EDT) athologist Signature Vitamin B-12 309 232 - 1,245 [facility] pg/mL [facility] Specimen Anatomical Collection Method Collection Time Receive d Time (Source) Location / / Volume Laterality Blood specimen 07/24/2019 7:57 AM 019 8:01 (specimen) EDT AM EDT Resulting Agency Comment Spec In Lab Giorgio Cardona MD CHEMISTRY ORDERABLES Performing Organization Address City/[facility]/ZIP Code Phon e Number [address] TSH (07/24/2019 7:57 AM EDT) P athologist Signature TSH 0.58 0.27 - 4.20 [facility] mcIU/mL [facility] Specimen Anatomical Collection Method Collection Time Receive d Time (Source) Location / / Volume Laterality Blood specimen 07/24/2019 7:57 AM 019 8:01 (specimen) EDT AM EDT Resulting Agency Comment Spec In Lab Giorgio Cardona MD CHEMISTRY ORDERABLES Performing Organization Address City/[facility]/ZIP Code Phon e Number [address] T4, free (07/24/2019 7:57 AM EDT) P athologist Signature Free T4 1.66 0.93 - 1.70 [facility] ng/dL [facility] Specimen Anatomical Collection Method Collection Time Receive d Time (Source) Location / / Volume Laterality Blood specimen 07/24/2019 7:57 AM 019 8:01 (specimen) EDT AM EDT Resulting Agency Comment Spec In Lab Giorgio Cardona MD CHEMISTRY ORDERABLES Performing Organization Address City/[facility]/[place] [address] Lipid Panel (Reflex Direct LDL) (07/24/2019 7:57 AM EDT) P athologist Signature Chol, Total 205 mg/dL [facility] Comment: Lower Risk: <200 mg/dL Average Risk: 200-239 mg/dL Higher Risk: >si=062 mg/dL Triglycerides 52 mg/dL [facility] Comment: Average Risk/Lower Risk: <150 mg/dL Borderline High Risk: 150-199 mg/dL High Risk: 200-499 mg/dL Very High Risk: >pq=259 mg/dL HDL 76 mg/dL [facility] Comment: Males: ?? Higher Risk: <40 mg/dL Females: ?? HIgher Risk: <50 mg/dL LDL Cholesterol 119 mg/dL [facility] Comment: Lowest Risk: <100 mg/dL Lower Risk: 100-129 mg/dL Borderline High Risk: 130-159 mg/dL High Risk: 160-189 mg/dL Very High Risk: >pf=332 mg/dL Chol/HDL Ratio 2.[address] [facility] Lipid Interpretation See Note [facility] Comment: Lipid management should be guided by a p atient? s ASCVD risk, goals and preferences. ACC/AHA Guidelines recommend high intens ity statin if clinical ASCVD or LDL greater than or equal to 190 mg/dL. http://[employer]/RLR-REK-Atbmzloxx Adults aged 40-75 with LDL 70-189 mg/dL should have their 10 year ASCVD risk estimated with the ACC/AHA ASCVD risk es timator http://tools.acc.org/PTAQQ-Odsm-Ywyqosym r/ Statin should be discussed if risk great er than or equal to 7.5% in non-diabetics. With diabetes, moderate i ntensity statin is recommended if risk less than 7.5%, high intensity if risk g reater than or equal to 7.5%. Annual lipid monitoring on statins is no t necessary. Evaluate secondary causes of Triglycerid es greater than 500 mg/dL or LDL greater than 190 mg/dL: See table 6 of A CC/AHA Guideline. Lifestyle modification is a critical com ponent of ASCVD risk reduction. Specimen Anatomical Collection Method Collection Time Receive d Time (Source) Location / / Volume Laterality Blood specimen 07/24/2019 7:57 AM 019 8:01 (specimen) EDT AM EDT Resulting Agency Comment Spec In Lab Giorgio Cardona MD CHEMISTRY ORDERABLES Performing Organization Address City/State/[place] [address] Folate, serum (07/24/2019 7:57 AM EDT) athologist Signature Folate Lvl 8.9 4.8 - 24.2 [facility] ng/mL [facility] Specimen Anatomical Collection Method Collection Time Receive d Time (Source) Location / / Volume Laterality Blood specimen 07/24/2019 7:57 AM 019 8:01 (specimen) EDT AM EDT Resulting Agency Comment Spec In Lab Giorgio Cardona MD CHEMISTRY ORDERABLES Performing Organization Address City/State/[place] [address] (ABNORMAL) CMP w/fasting Glucose (07/24/2019 7:57 AM EDT) athologist Signature Glucose 115 (H) 65 - 99 [facility] Fasting mg/dL [facility] Comment: ?Fasting* Glucose Interpretive C riteria Normal ?65-99 mg/dL Impaired Fasting glucose ?100-125 mg/dL Consistent with Diabetes Mellitus ? >or= 126 mg/dL *Fasting is defined as no caloric intake for at least 8 hours In the absence of unequivocal hypergly cemia a plasma glucose value of >or= 126 mg/dL should be repeated on a subseq uent day. Diagnosis and Classification of Diabetes Mellitus, Position Statement from the [place] [employer]. ??Diabete s Care, Volume 33, Supplement 1, Nov 2009 BUN 22 (H) 10 - 20 mg/dL [facility] Creatinine 1.16 0.80 - 1.50 mg/dL [facility] Sodium 142 135 - 145 mmol/L [facility] Potassium 4.4 3.5 - 5.0 mmol/L [facility] Comment: Please note: ??Patients with WBC >100,00 0 may have falsely elevated Potassium levels. ??For accurate Potassium quantif ication in these patients send serum separator tube (gold top) for subsequent determinations. ??Contact the Clinical Chemistry Laboratory if there are any qu estions. Chloride 102 98 - 107 mmol/L [facility] CO2 29 22 - 31 mmol/L [facility] Anion Gap 11 5 - 15 mmol/L [facility] Calcium 8.9 8.5 - 10.5 mg/dL [facility] Total Protein 6.9 6.1 - 8.0 gm/dL [facility] Albumin 4.0 3.2 - 5.2 gm/dL [facility] AST 18 0 - 39 unit/L [facility] ALT 9 0 - 55 unit/L [facility] Alk Phos 66 40 - 130 unit/L [facility] Total Bilirubin 0.5 0.2 - 1.3 mg/dL [facility] Estimated GFR 59 (L) >=60 mL/min/1.73 m?? [facility] Comment: The eGFR was calculated using the CKD-EP I equation. As with all creatinine based estimates of kidney function, eGFR values calculated with the CKD-EPI equation are not accurate in patients wi th acute kidney failure, extremes of body mass or the acutely ill. [email or web address]/[facility] TULSAnkf eGFR 68 >=60 mL/min/1.73 m?? [facility] Comment: The eGFR was calculated using the CKD-EP I equation. As with all creatinine based estimates of kidney function, eGFR values calculated with the CKD-EPI equation are not accurate in patients wi th acute kidney failure, extremes of body mass or the acutely ill. [email or web address]/[facility] TULSAnkf Specimen Anatomical Collection Method Collection Time Receive d Time (Source) Location / / Volume Laterality Blood specimen 07/24/2019 7:57 AM 019 8:01 (specimen) EDT AM EDT Resulting Agency Comment Spec In Lab Giorgio Cardona MD CHEMISTRY ORDERABLES Performing Organization Address City/State/[place] [address] documented in this encounter Visit Diagnoses Diagnosis Essential hypertension Unspecified essential hypertension Vitamin D deficiency Unspecified vitamin D deficiency documented in this encounter Care Teams Youth Officer Relationship Specialty Start Date End Date Giorgio Cardona MD PCP - General General Internal Medicine 11/29/17 0 [facility] GENERAL [place] [address] documented as of this encounter
--- OUTSIDE RECORDS SUMMARY | 2022-10-09 16:13 | XMS_ITS | Encounter Summary ---
:1940 [place] [address] Care Team Providers Name Role Phone Giorgio Cardona MD Primary Care Provider Encounter Details Date Type Department Care Team Description 07/24/2019 Laboratory Appointment Lab 3L Arcelia Carballo in D deficiency; [facility] [place] [id number] Social History Tobacco Use Types Packs/Day Years [...] Office Visit Dermatology Virgilio Mckeon MD [facility] DR CHRISTIANO HENSON-DERMAT OLOGY [place], [place] [address] (Wo rk) 10/16/2022 Office Visit Otolaryngology Frank Buchanan MD [facility] OTOLARYNGOLOGY Sraah EPT. [place], [place] [address] (Wo rk) 11/29/2022 Appointment Hematology and Oncology 11/29/2022 Office Visit Radiation Oncology Autumn, Emerald M, [employer] [facility] DR RADIATION ONCCESAR RACHAEL [place], [place] [address] (Wo rk) documented as of this encounter Procedures Procedure Name Priority Date/Time Associated Diagnosis Comme nts CMP W/FASTING GLUCOSE Routine 07/24/2019 7:57 AM Essential Results for this EDT hypertension procedure are i n the results section. HEMOGRAM Routine 07/24/2019 7:57 AM Essential Results f or this EDT hypertension procedure are i n the results section. DIFFERENTIAL, Routine 07/24/2019 7:57 AM Essential Results for this AUTOMATED EDT hypertension procedure are i n the results section. HC VENIPUNCTURE Routine 07/24/2019 7:57 AM Vitamin D deficienc y Results for this EDT procedure are i n the results section. HC CBC,PLT & AUTO Routine 07/24/2019 7:57 AM Essential DIFF EDT hypertension HC THYROID Routine 07/24/2019 7:57 AM Essential Results f or this STIMULATING HORMONE, EDT hypertension procedu re are in SERUM the results section. HC FREE THYROXINE Routine 07/24/2019 7:57 AM Essential Resu lts for this (T4) EDT hypertension procedure are i n the results section. HC FOLATE, SERUM Routine 07/24/2019 7:57 AM Essential Resul ts for this EDT hypertension procedure are i n the results section. HC VITAMIN B12 SERUM Routine 07/24/2019 7:57 AM Essential R esults for this EDT hypertension procedure are i n the results section. LIPID PANEL (REFLEX Routine 07/24/2019 7:57 AM Essential Re sults for this DIRECT LDL) EDT hypertension procedure are i n the results section. documented in this encounter Results Differential, Automated (07/24/2019 7:57 AM EDT) P athologist Signature Neutrophils % 60.4 % [facility] Neutr Abs (ANC) 2.68 1.70 - [facility] 6.10 [facility] x10(3)/[facility] LABORATORY Lymphocytes % 20.5 % [facility] Lymphocytes Abs 0.9 0.9 - 3.2 [facility] x10(3)/[facility] LABORATORY Monocytes % 16.3 % [facility] Monocyte Abs 0.7 0.3 - 0.9 [facility] x10(3)/[facility] LABORATORY Eosinophils % 1.4 % [facility] Eosinophils Abs 0.1 0.0 - 0.4 [facility] x10(3)/[facility] LABORATORY Basophils % 0.9 % [facility] Basophils Abs 0.0 0.0 - 0.1 [facility] x10(3)/[facility] LABORATORY Immature Gran % 0.50 % [facility] Comment: Immature granulocytes(IG's)percentage an d absolute count will include metamyelocytes, myelocytes, and promyelo cytes. Blood smears from CBCs yielding IG's will be scanned manually for concor dance. If this scan disagrees with the automated IG or if promyelocytes are not ed, a manual differential will be performed. Becki Gran Abs 0.02 0.00 - 0.04 x10(3)/[facility] LABORATORY Specimen Anatomical Collection Method Collection Time Receive d Time (Source) Location / / Volume Laterality Blood specimen 07/24/2019 7:57 AM 019 8:01 (specimen) EDT AM EDT Resulting Agency Comment Spec In Lab Giorgio Cardona MD HEMATOLOGY ORDERABLES Performing Organization Address City/State/ZIP Code Phon e Number [place] [id number] (ABNORMAL) Hemogram (07/24/2019 7:57 AM EDT) Analysis Performed At Patho logist Time Signature WBC 4.4 4.0 - 9.5 [facility] x10(3)/[facility] LABORATORY RBC 4.10 (L) 4.58 - [facility] 5.54 [facility] x10(6)/[facility] LABORATORY Hemoglobin 13.5 (L) 13.7 - [facility] 16[facility] gm/dL [facility]OR[facility]ORY Hematocrit 40.4 (L) 40.5 - [facility] 48.5 % [facility] MCV 98.5 (H) 82.9 - [facility] 93.1 fL [facility]ORY MCH 32.9 (H) 27.5 - [facility] 32.1 pg [facility]ORY MCHC 33.4 32.0 - [facility] 35.7 gm/dL [facility]ORATORY Platelets 174 145 - 357 [facility] x10(3)/[facility] LABORATORY RDWSD 51.4 (H) 36.0 - [facility] 45.0 [facility] LABORATORY RDWCV 14.0 (H) 11.4 - [facility] 13.8 % [facility] LABORATORY MPV 11.4 7.6 - 12.9 [facility] LABORATORY nRBC % Auto 0.0 % [facility] nRBC Abs Auto 0.000 0.000 - [facility] 0.000 [facility] x10(3)/[facility] LABORATORY Specimen Anatomical Collection Method Collection Time Receive d Time (Source) Location / / Volume Laterality Blood specimen 07/24/2019 7:57 AM 019 8:01 (specimen) EDT AM EDT Resulting Agency Comment Spec In Lab Giorgio Cardona MD HEMATOLOGY ORDERABLES Performing Organization Address City/State/[place] [address] (ABNORMAL) CMP w/fasting Glucose (07/24/2019 7:57 AM EDT) P athologist Signature Glucose 115 (H) 65 - 99 [facility] Fasting mg/dL [facility] Comment: ?Fasting* Glucose Interpretive C riteria [...] of Diabetes Mellitus, Position Statement from the [place] [employer]. ??Diabete s Care, Volume 33, Supplement 1, Nov 2009 BUN 22 (H) 10 - 20 mg/dL [facility] Creatinine 1.16 0.80 - 1.50 mg/dL [facility] Sodium 142 135 - 145 mmol/L [facility] Potassium 4.4 3.5 - 5.0 mmol/L [facility] Comment: Please note: ??Patients with WBC >100,00 0 may have falsely elevated Potassium levels. ??For accurate Potassium quantif ication in these patients send serum separator tube (gold top) for subsequent determinations. ??Contact the Clinical Chemistry Laboratory if there are any qu estions. Chloride 102 98 - 107 mmol/L [facility] CO2 29 22 - 31 mmol/L [facility] Anion Gap 11 5 - 15 mmol/L [facility] Calcium 8.9 8.5 - 10.5 mg/dL [facility] Total Protein 6.9 6.1 - 8.0 gm/dL [facility] Albumin 4.0 3.2 - 5.2 gm/dL [facility] AST 18 0 - 39 unit/L [facility] ALT 9 0 - 55 unit/L [facility] Alk Phos 66 40 - 130 unit/L [facility] Total Bilirubin 0.5 0.2 - 1.3 mg/dL [facility] Estimated GFR 59 (L) >=60 mL/min/1.73 m?? [facility] Comment: The eGFR was calculated using the CKD-EP I equation. As with all creatinine based estimates of kidney function, eGFR values calculated with the CKD-EPI equation are not accurate in patients wi th acute kidney failure, extremes of body mass or the acutely ill. http://[employer]/DHMCnkf eGFR 68 >=60 mL/min/1.73 m?? [facility] Comment: The eGFR was calculated using the CKD-EP I equation. As with all creatinine based estimates of kidney function, eGFR values calculated with the CKD-EPI equation are not accurate in patients wi th acute kidney failure, extremes of body mass or the acutely ill. http://[employer]/DHMCnkf Specimen Anatomical Collection Method Collection Time Receive d Time (Source) Location / / Volume Laterality Blood specimen 07/24/2019 7:57 AM 019 8:01 (specimen) EDT AM EDT Resulting Agency Comment Spec In Lab Giorgio Cardona MD CHEMISTRY ORDERABLES Performing Organization Address City/[facility]/ZIP Code Phon e Number [address] Folate, serum (07/24/2019 7:57 AM EDT) P athologist Signature Folate Lvl 8.9 4.8 - 24.2 [facility] ng/mL [facility]ORY Specimen Anatomical Collection Method Collection Time Receive d Time (Source) Location / / Volume Laterality Blood specimen 07/24/2019 7:57 AM 019 8:01 (specimen) EDT AM EDT Resulting Agency Comment Spec In Lab Giorgio Cardona MD CHEMISTRY ORDERABLES Performing Organization Address City/[facility] [place] [address] Lipid Panel (Reflex Direct LDL) (07/24/2019 7:57 AM EDT) P athologist Signature Chol, Total 205 mg/dL [facility] Comment: Lower Risk: <200 mg/dL Average Risk: 200-239 mg/dL Higher Risk: >dm=060 mg/dL Triglycerides 52 mg/dL [facility] Comment: Average Risk/Lower Risk: <150 mg/dL Borderline High Risk: 150-199 mg/dL High Risk: 200-499 mg/dL Very High Risk: >uf=577 mg/dL HDL 76 mg/dL [facility] Comment: Males: ?? Higher Risk: <40 mg/dL Females: ?? HIgher Risk: <50 mg/dL LDL Cholesterol 119 mg/dL [facility] Comment: Lowest Risk: <100 mg/dL Lower Risk: 100-129 mg/dL Borderline High Risk: 130-159 mg/dL High Risk: 160-189 mg/dL Very High Risk: >bu=116 mg/dL Chol/HDL Ratio 2.7 ratio [facility] Lipid Interpretation See Note [facility] Comment: Lipid management should be guided by a p atient? s ASCVD risk, goals and preferences. ACC/AHA Guidelines recommend high intens ity statin if clinical ASCVD or LDL greater than or equal to 190 mg/dL. http://[employer].com/QBC-BOB-Shektwpak Adults aged 40-75 with LDL 70-189 mg/dL should have their 10 year ASCVD risk estimated with the ACC/AHA ASCVD risk es timator http://tools.acc.org/ISDCB-Nmmu-Nryhkjql r/ Statin should be discussed if risk [...] MD CHEMISTRY ORDERABLES Performing Organization Address City/[facility]/ZIP Code Phon e Number [address] T4, free (07/24/2019 7:57 AM EDT) P athologist Signature Free T4 1.66 0.93 - 1.70 [facility] ng/dL [facility] Specimen Anatomical Collection Method Collection Time Receive d Time (Source) Location / / Volume Laterality Blood specimen 07/24/2019 7:57 AM 019 8:01 (specimen) EDT AM EDT Resulting Agency Comment Spec In Lab Giorgio Cardona MD CHEMISTRY ORDERABLES Performing Organization Address City/[facility]/[place] [address] TSH (07/24/2019 7:57 AM EDT) athologist Signature TSH 0.58 0.27 - 4.20 [facility] mcIU/mL [facility]ORY Specimen Anatomical Collection Method Collection Time Receive d Time (Source) Location / / Volume Laterality Blood specimen 07/24/2019 7:57 AM 019 8:01 (specimen) EDT AM EDT Resulting Agency Comment Spec In Lab Giorgio Cardona MD CHEMISTRY ORDERABLES Performing Organization Address City/[facility]/ZIP Code Phon e Number [address] Vitamin B12 (07/24/2019 7:57 AM EDT) athologist Signature Vitamin B-12 309 232 - 1,245 [facility] pg/mL [facility]ORY Specimen Anatomical Collection Method Collection Time Receive d Time (Source) Location / / Volume Laterality Blood specimen 07/24/2019 7:57 AM 019 8:01 (specimen) EDT AM EDT Resulting Agency Comment Spec In Lab Giorgio Cardona MD CHEMISTRY ORDERABLES Performing Organization Address City/[facility]/ZIP Code Phon e Number [address] Vitamin D, 25-Hydroxy (07/24/2019 7:57 AM EDT) athologist Signature 25-OH Vit D 35 30 - 100 [facility] Total ng/mL [facility]ORY Comment: Deficient <10 ng/mL Insufficient 10 to 29 ng/mL Sufficient 30 to 100 ng/mL Potential Intoxication >100 ng/mL According to the [place] National Osteoporosi s Foundation, Vitamin D concentrations >30 ng/mL are sufficient to protect bone health. ??The National Kidney Foundation has similarly stated that pat ients with Vitamin D concentrations <30ng/mL should be considered to be insu fficient or deficient. http://Chomp.com/nkf-guidelines http://[employer]/nejm-VitD [employer] Vitamin D Immunoassay detec [...] Organization Address City/State/[place] [address] documented in this encounter Visit Diagnoses Diagnosis Vitamin D deficiency Unspecified vitamin D deficiency Essential hypertension Unspecified essential hypertension documented in this encounter Care Teams Wick Tender Relationship Specialty Start Date End Date Giorgio Cardona MD PCP - General General Internal Medicine 11/29/[address] [place] [address] GENERAL [place] [address] documented as of this encounter
--- OUTSIDE RECORDS SUMMARY | 2022-10-09 16:13 | XMS_ITS | Encounter Summary ---
:1940 [place] [address] Care Team Providers Name Role Phone Dexter Pereira MD Primary Care Provider Encounter Details Date Type Department Care Team Description 10/21/2020 TH Visit Radiation Oncology at [facility] Pr ostate cancer (TeleHealth) [address] [address] RADIATION ONCOLOGY [phone] [place], [place] [address] (Wo rk) Social History Tobacco Use Types Packs/Day Years Used Date Smoking Tobacco: Never Smokeless Tobacco: Never Alcohol Use Standard Drinks/Week Comments Never 0 (1 standard drink = 0.6 oz pure alcoho l) RARE Sex Assigned at Date Recorded Not on file documented as of this encounter Patient Instructions Patient InstructionsLolly Benavides APRN - 10/21/2020 12:00 PM EST Please reschedule unable to reach patient. documented in this encounter Progress Notes Lolly Benavides APRN - 10/21/2020 12:00 PM EST Left VM message for patient to call back. documented in this encounter Plan of Treatment Upcoming Encounters Date Type Specialty Care Team Description 10/11/2022 Office Visit Dermatology Virgilio Mckeon MD [facility] ER DR CHRISTIANO HENSON-DERMAT OLOGY [place], [place] [address] (Wo rk) 10/16/2022 Office Visit Otolaryngology Frank Buchanan MD [facility] OTOLARY[facility]OLOGY D EPT. [place], [place] [address] (Wo rk) 11/29/2022 Appointment Hematology and Oncology 11/29/2022 Office Visit Radiation Oncology Emerald Leyva APRN [facility] RADIATION ONCOLO GY [place], [place] [address] (Wo rk) documented as of this encounter Visit Diagnoses Diagnosis Prostate cancer Malignant neoplasm of prostate documented in this encounter Care Teams Editor In Chief Newspaper Relationship Specialty Start Date End Date Dexter Pereira MD PCP - General Internal Medicine 06/21/20 11/20/21 [address] [place] [address] documented as of this encounter
--- OUTSIDE RECORDS SUMMARY | 2022-10-09 16:13 | XMS_ITS | Encounter Summary ---
:1940 Author Organization [facility] Address [facility] [address] [place] [address] Care Team Providers Name Role Phone Dexter Pereira MD Primary Care Provider Reason for Visit Consultation (Routine) - Closed Specialty Diagnoses / Procedures Referred By Contact Refer red To Contact Podiatry Diagnoses Pain in toe of right foot Gunnar Gudino PA [facility] Podiatry 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; [id number] Plantar fat pad atrophy of r ight foot Social History Tobacco Use Types Packs/Day Years Used Date Smoking Tobacco: Never Smokeless Tobacco: Never Alcohol Use Standard Drinks/Week Comments Yes 0 (1 standard drink = 0.6 oz pure alcoho l) RARE Sex Assigned at Date Recorded Not on file documented as of this encounter Last Filed Vital Signs Vital Sign Reading Time Taken Comments Blood Pressure 135/49 06/21/2020 11:37 AM EDT Pulse 68 06/21/2020 11:37 AM EDT Temperature 36.4 ??C (97.6 ??F) 06/21/2020 11:37 AM EDT Respiratory Rate - - Oxygen Saturation 99% 06/21/2020 11:37 AM EDT Inhaled Oxygen Concentration - - Weight - - Height - - Body Mass Index - - documented in this encounter Progress Notes Chante Harper, SHAREE - 06/21/2020 11:15 AM EDT Outpatient Foot Care [facility] Note Name: Alfredito Mina Age:80 y.o. MR#: [id number] Date of Service: 06/21/2020 SUBJECTIVE: Alfredito Mina is a pleasant 80 y.o. male with history of arthritis who presents to the clinic today with chief complaint of right foot pain. Patient was recently seen in ED for complaints and urgent referral placed for podiatric evaluation today. Relates pain mostly involves right second toe. Expresses concern for infection. Relates skin changes to end of the toe. Relates thickened, elongated toenails with difficulty to manage/trim which intermittently causes discomfort. Denies any pain today. Denies any redness, swelling, pus, discharge, open wounds, or other changes. Denies anycalf pain. Denies any constitutional symptoms today. No other pedal complaints. 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 Cyclobenzaprine Urinary retention, [...] XRT ??? 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 Marital status: [...] ??? Drug use: No ??? Sexual activity: Not on file Lifestyle ??? Physical activity Days per week: Not on file Minutes per session: Not on file ??? Stress: Not on file Relationships ??? Social connections Talks on phone: Not on file Gets together: Not on file Attends mormonism service: Not on file Active member of [...] Social History Narrative ??? Not on file Family History Problem Relation Age of Onset ??? Asthma Mother ??? Heart Failure Father ??? Thyroid Disease Paternal Grandmother Current Outpatient Medications on File Prior to Visit Medication Sig Dispense Refill ??? loratadine (Claritin) 10 mg Tablet Take 1 tablet by mouth daily. 90 tablet 3 ??? levothyroxine (SYNTHROID) 125 mcg Tablet TAKE [...] mEq by mouth daily.) 30 tablet 11 No current facility-administered medications on file prior to visit. ROS: MSK: + Right foot pain Skin: +toenail changes + skin changes right second toe The remainder of 10 ROS were reviewed and negative. OBJECTIVE: Temp: [36.4 ??C (97.6 ??F)-36.5 ??C (97.7 ??F)] Heart Rate: [68] Resp: [18] BP: (128-135)/(49-67) SpO2: [99 %] Heart Rate from SpO2: -- GEN: Patient is AAOX3, NAD. Gait stable and non-antalgic. DERM: Skin cool to touch, atrophic and diffusely xerotic with no open lesions appreciated bilaterally. Decreased hair growth noted bilaterally. No ulcerations, fissures, drainage, or blisters bilaterally. No evidence of acute infection bilaterally. Interspaces 1-4 bilaterally dry and clear with no signs of fungal or bacterial infection. Nails 1-10 well trimmed, thickened >0.5 cm, yellow and dystrophic with subungual debris noted and no signs of acute infection. No erythema or proximal streaking. No drainage or purulence. No fluctuance. Hyperkeratotic skin lesion noted distal aspect of right second digit, upon debridement intact skin lines with no underlying infection or ulceration appreciated. VASC: Dorsalis pedis +1/4 bilaterally and posterior tibial pulse +0/4 bilaterally. Capillary refill 3 seconds. No edema noted. No varicose veins. No claudication, no rest pain, no calf pain. No color changes associated with vascular disease. Posterior calves soft and nontender NEURO: Epicritic sensation intact bilaterally. MSK: Pain on palpation right second digit at affected site. Prominent flexion contractures noted of lesser digits bilaterally. No loss of power or wasting. Active ROM noted of pedal and ankle joints bilaterally. The structure of the feet is distorted presently. There are hot spots or calluses. +evidence of loss of the fat pad. ASSESSMENT: Painful pre-ulcerative foot callus right second digit Hammertoes bilaterally--symptomatic right, asymptomatic left Onychauxis bilaterally Fat pad atrophy bilaterally PLAN: ??? Patient seen and evaluated. Educated patient on condition and treatment options. ??? Counseling provided on pre-ulcerative changes and foot deformities ??? Explained to patient risks of developing wounds, infections, and other complications in feet particularly at sites of hammertoes ??? Daily foot inspection and moisturization advised. ??? Sharply debrided pre-ulcerative foot callus x1 without incident using sterile #15 scalpel. Patient tolerated well and without complications. No underlying infection or ulceration appreciated. ??? Offloading crest pads recommended for hammertoes. Sample dispensed. Proper use reviewed. ??? Discussed importance of offloading and avoiding barefoot ambulation ??? Recommended wide supportive shoe gear. ??? Follow up with PCP regularly for continued medical management. ??? Signs and symptoms of infection reviewed at length and provided below. ??? Advised patient to seek prompt medical care if any worsening or changes noted ??? Answered all questions. Patient verbalized understanding of all instructions FOLLOW UP: As needed or sooner if any concerns arise. Because of the patient's history of decreased circulation, foot care by a non professional would be hazardous. Please report to the Emergency Department if you develop signs/symptoms of infection which may include the following: Fever Sweats Chills Nausea, Vomiting or Diarrhea General malaise Spiking Blood Glucose levels, unprovoked On the feet: Increased pain Swelling or edema Redness Wounds or sores Warmth Pus Malodor Contact directly with any above symptoms Sunday-Sunday 8:00AM-4:00PM. If weekends/holidays/evenings,please report to the Emergency Department. Cahnte Harper DPM [facility], [facility] documented in this encounter Plan of Treatment Upcoming Encounters Date Type Specialty Care Team Description 10/11/2022 Office Visit Dermatology Virgilio Mckeon MD [facility] [address] CHRISTIANO HENSON-DERMAT [place], [place] [address] (Wo rk) 10/16/2022 Office Visit Otolaryngology Frank Buchanan MD [facility] OTOLARYNGOLOGY Sarah EPT. 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
--- OUTSIDE RECORDS SUMMARY | 2022-10-09 16:13 | XMS_ITS | Encounter Summary ---
:1940 Author Organization [facility] [place] [address] Care Team Providers Name Role Phone Dexter Pereira MD Primary Care Provider Reason for Referral Diagnostic Test (Routine) - Closed Specialty Diagnoses / Procedures Referred By Contact Refer red To Contact Radiology Diagnoses History of lobectomy of lung Primary adenocarcinoma of right lung [facility] [address] [place] [address] Chest wo Contrast (Generic) [place] [address] [place] [address] Referral ID Status Reason Start Date Expiration Date Visits V isits Requested Authorized [id number] Closed Specialty 07/03/2019 07/02/2020 1 1 Service Requested Reason for Visit Diagnostic Test (Routine) - Closed Specialty Diagnoses / Procedures Referred By Contact Refer red To Contact Radiology Diagnoses History of lobectomy of lung Primary adenocarcinoma of right lung [facility] [address] [place] [address] Chest wo Contrast (Generic) [place] [address] [place] [address] Referral ID Status Reason Start Date Expiration Date Visits V isits Requested Authorized [id number] Closed Specialty 07/03/2019 07/02/2020 1 1 Service Requested Encounter Details Date Type Department Care Team Description 06/21/[address] [facility] Kera, History of lobectomy of lung ; [facility] Dexter Pugh MD Primary adenocarcinoma of right lung [address] [place], [place] [address] THORACIC [phone] [place] [address] Social History Tobacco Use Types Packs/Day Years [...] release tablet documented as of this encounter Plan of Treatment Upcoming Encounters Date Type Specialty Care Team Description 10/11/2022 Office Visit Dermatology Virgilio Mckeon MD [facility] DR CHRISTIANO HENSON-DERMAT OLOGY [place], [place] [address] (Wo rk) 10/16/2022 Office Visit Otolaryngology Frank Buchanan MD [facility] OTOLARYNGOLOGY D EPT. [place], [place] [address] (Wo rk) 11/29/2022 Appointment Hematology and Oncology 11/29/2022 Office Visit Radiation Oncology Emerald Leyva APRN [facility] RADIATION ONCOLO GY [place], [place] [address] (Wo rk) documented as of this encounter Procedures Procedure Name Priority Date/Time Associated Diagnosis Comme nts CT CHEST WO Routine 06/21/2020 9:06 AM History of lobectomy o f Results for this CONTRAST (GENERIC) EDT lung procedure are in Primary adenocarcinoma the r esults of right lung section. documented in this encounter Results CT Chest wo Contrast (Generic) (06/21/2020 9:06 AM EDT) Anatomical Region Laterality Modality Chest Computed Tomography Specimen (Source) Anatomical Location Collection Method / Collectio n Time Received Time / Laterality Volume Impressions 06/21/2020 10:01 AM EDT Status post right lower lobectomy, with no findings for resection site recurrence, new disease, or metastatic d isease. Thank you for letting us participate in the care of this patient. For questions regarding this report, please contact e number below. ? Narrative 06/21/2020 10:01 AM EDT EXAMINATION: CT CHEST WO CONTRAST (GENERIC) CLINICAL HISTORY: s/p right lower lobect lennie for 1.1 cm invasive adenocarcinoma in 2009. please eval for ??Surveillance of disease TECHNIQUE: 3.75 mm thick axial contiguou s sections were obtained through the chest via helical acquisition without in travenous contrast administration. Thin-section reconstructions as well as coronal and sagittal reformatted images were generated. COMPARISON: 05/21/2019. FINDINGS: Pulmonary parenchyma: Status post right lower lobectomy. With no findings for recurrence at the resection site. No new or enlarging pulmonary nodules or other interval pulmonary parenchymal pathology . Airways: Small amount of mucus located p osteriorly in the trachea at the level of the thoracic inlet. Pleura: No pleural effusion. Lymph nodes:Within noncontrast technique , no thoracic lymphadenopathy seen. Heart, pericardium, and great vessels: L eft anterior descending stent and mitral prosthesis, as before. Other mediastinal structures: No new fin dings. Lower neck: No new findings. Upper abdomen: Increased exophytic right renal cyst, previously 4.3 x 3.2 cm, now 5.4 x 4.2 cm. Stable 3 cm left adren al nodule. No new findings. Body wall soft tissues: No new findings. Skeletal structures: No suspicious inter aden osseous findings. Procedure Note Eliz Valderrama MD - 06/21/2020Formatt ing of this note might be different from the original. EXAMINATION: CT CHEST WO CONTRAST (GENER IC) CLINICAL HISTORY: s/p right lower lobect lennie for 1.1 cm invasive adenocarcinoma in 2009. please eval for Surveillance of disease TECHNIQUE: 3.75 mm thick axial contiguou s sections were obtained through the chest via helical acquisition without in travenous contrast administration. Thin-section reconstructions as well as coronal and sagittal reformatted images were generated. COMPARISON: 05/21/2019. FINDINGS: Pulmonary parenchyma: Status post right lower lobectomy. With no findings for recurrence at the resection site. No new or enlarging pulmonary nodules or other interval pulmonary parenchymal pathology . Airways: Small amount of mucus located p osteriorly in the trachea at the level of the thoracic inlet. Pleura: No pleural effusion. Lymph nodes:Within noncontrast technique , no thoracic lymphadenopathy seen. Heart, pericardium, and great vessels: L eft anterior descending stent and mitral prosthesis, as before. Other mediastinal structures: No new fin dings. Lower neck: No new findings. Upper abdomen: Increased exophytic right renal cyst, previously 4.3 x 3.2 cm, now 5.4 x 4.2 cm. Stable 3 cm left adren al nodule. No new findings. Body wall soft tissues: No new findings. Skeletal structures: No suspicious inter aden osseous findings. IMPRESSION Status post right lower lobectomy, with no findings for resection site recurrence, new disease, or metastatic d isease. Thank you for letting us participate in the care of this patient. For questions regarding this report, please contact e number below. Dexter Cote MD IMG CT ORDERABLES documented in this encounter Visit Diagnoses Diagnosis History of lobectomy of lung Primary adenocarcinoma of right lung documented in this encounter Care Teams Leather Repairer Relationship Specialty Start Date End Date Dexter Pereira MD PCP - General Internal Medicine 06/21/20 11/20/21 [address] [place] [address] documented as of this encounter
--- OUTSIDE RECORDS SUMMARY | 2022-10-09 16:13 | XMS_ITS | Encounter Summary ---
:1940 Author Organization [facility] [place] [address] Care Team Providers Name Role Phone Dexter Pereira MD Primary Care Provider Reason for Visit Reason Comments Skin Check Encounter Details Date Type Department Care Team Description 08/10/2020 Office Visit Dermatology at [facility] eborrheic keratosis; Road IIIMD Maloney angioma; [address] [facility] History of basal cell carcin kassi ([place]) [place] [address] [facility] [place], [place] [address] Social History Tobacco Use Types Packs/Day Years Used Date Smoking Tobacco: Never Smokeless Tobacco: Never Alcohol Use Standard Drinks/Week Comments Yes 0 (1 standard drink = 0.6 oz pure alcoho l) RARE Sex Assigned at Date Recorded Not on file documented as of this encounter Progress Notes Michelle Duarte CCMA - 08/10/2020 9:45 AM EDT DERMATOLOGY ESTABLISHED PATIENT CLINIC NOTE Date of service: 08/10/2020 Alfredito Mina : 1940 Provider: Rigoberto Jackson MD PROBLEM: Skin cancer screening SKIN HISTORY: 11/23/2014 ---Pathologic Diagnosis--- Treated with ED&C, right mid lateral back 12/08/2014 A - Skin, right mid lateral back, shave biopsy: Basal cell carcinoma, superficial type, extending to both peripheral margins. 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 Seborrheic Keratoses HPI Alfredito Mina is a 80 y.o. year old male. Established patient, last seen by myself on 10/21/2019. He is here today for a full skin exam. No specific lesions that are concerning. No spots that are changing colors, itching, or bleeding. 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 He reports that he is going to be having hernia surgery. Procedure Screening Questions: Allergy to lidocaine or epinephrine:??no Blood thinners: no Pacemaker/defibrillator:??no Heart valves:??mitral valve repair 2012 Joint replacements:??right knee, years ago ADR: Allergies Allergen Reactions ??? Cyclobenzaprine Urinary retention, xerostomia ??? Lactose Other (See Comments) Sneezing CURRENT MEDICATIONS: Current Outpatient Medications Medication Sig Dispense Refill ??? loratadine (Claritin) 10 mg Tablet Take 1 tablet by mouth daily. (Patient not taking: Reported on 08/03/2020) 90 tablet 3 ??? levothyroxine (SYNTHROID) 125 [...] 30 tablet 11 No current facility-administered medications for [...] complaints EXAM General: NAD, pleasant, cooperative Skin: Patient was asked to undress to the level of his comfort. Verbalized that the provider's preference is for the patient to remove all clothing and that the provider will not examine areas patient elects to keep covered. Patient's decision was to keep underwear on and have the following examined: skin of the scalp, hair, face, ears, neck, chest, abdomen, back, axillae, upper and lower extremities, hands, and feet. Buttocks and genitalia were not examined. Areas of face under mask examined (COVID-19): [x] Yes [] No Significant skin findings: A. Head, trunk and extremities: Scattered 0.4-0.6 cm pink-brown papules/plaques with waxy, stuck-on appearance. B. Trunk: Multiple 0.2-0.4 cm bright red, well-demarcated papules. C. Right mid lateral back: Well-healed scar as per skin history. No lesions suspicious for BCC or SCC at this time. No pigmented lesion suspicious for melanoma at this time. Tender soft mass in left inguinal area consistent with the hernia he is scheduled to have repaired. ASESSMENT/PLAN: A. Seborrheic Keratoses, head, trunk and extremities - Explained that these are hereditary and adult-acquired. Reassured patient of benign nature. No treatment necessary. - Advised patient to call if they become inflamed or irritated. B. Maloney Angiomas, trunk - Discussed benign nature of lesions and provided reassurance. No treatment necessary at this time. C. H/O BCC, right mid lateral back - NER; will continue to monitor. The nature of sun-induced photo-aging and skin cancers is discussed. Sun avoidance, protective clothing, and the use of 30-SPF sunscreens is advised. Observe closely for skin damage/changes, and call if such occurs. RTC - 1 year for a full skin exam; sooner if needed. Reminder placed in system to schedule. Instructed patient to call with questions or concerns. I am documenting this encounter acting as the scribe for and in the presence of Dr. Jackson.: Michelle Duarte [facility] I performed the above scribed service and agree with the accuracy of the documentation in this encounter. Rigoberto Jackson MD Section of Dermatology [facility] documented in this encounter Plan of Treatment Upcoming Encounters Date Type Specialty Care Team Description 10/11/2022 Office Visit Dermatology Virgilio Mckeon MD [facility] DR CHRISTIANO HENSON-DERMAT OLOGY [place], [place] [address] (Leroy bhatia) 10/16/2022 Office Visit Otolaryngology Frank Buchanan MD [facility] OTOLARYNGOLOGY Sarah EPT. [place], [place] [address] (Leroy bhatia) 11/29/2022 Appointment Hematology and Oncology 11/29/2022 Office Visit Radiation Oncology Emerald Leyva, [employer]ERCIAL COLLECTIONS DRIVER [facility] RADIATION ONCCESAR [place], [place] [address] (Wo rk) documented as of this encounter Visit Diagnoses Diagnosis Seborrheic keratosis Other seborrheic keratosis Maloney angioma Nevus, non-neoplastic History of basal cell carcinoma (BCC) of skin documented in this encounter Care Teams Boardinghouse Keeper Relationship Specialty Start Date End Date Dexter Pereira MD PCP - General Internal Medicine 06/21/20 11/20/21 [address] [place] [address] documented as of this encounter
--- OUTSIDE RECORDS SUMMARY | 2022-10-09 16:13 | XMS_ITS | Encounter Summary ---
:1940 Author Organization [facility] Address [facility] [place] [address] Care Team Providers Name Role Phone Giorgio Cardona MD Primary Care Provider Reason for Referral Consultation (Routine) - Closed Specialty Diagnoses / Procedures Referred By Contact Refer red To Contact Gastroenterology Diagnoses Diverticulosis of large intestine without perforation or abscess with bleeding Karo Pham Gordon, Stuart R, MD [employer] [employer] D R GASTROENTEROLOGY [place] [address] [place] [address] Fax: Referral ID Status Reason Start Date Expiration Date Visits V isits Requested Authorized [id number] Closed Test Only 08/25/2019 08/24/2020 1 1 Reason for Visit Reason Comments Follow-up Encounter Details Date Type Department Care Team Description 08/25/2019 Office Visit Internal Medicine Karo Pham ticulosis of large intestine without perforation or abscess with bleeding; at [facility] ROSITA Beaulieu Need for prophylactic vaccination agains t Streptococcus pneumoniae (pneumococcus) and influenza; [facility] Gastroeso phageal reflux disease without esophagitis [facility] [address] [place] [address] [place] [address] [phone] Social History Tobacco Use Types Packs/Day Years Used Date Smoking Tobacco: Never Smokeless Tobacco: Never Alcohol Use Standard Drinks/Week Comments Yes 0 (1 standard drink = 0.6 oz pure alcoho l) RARE Sex Assigned at Date Recorded Not on file documented as of this encounter Last Filed Vital Signs Vital Sign Reading Time Taken Comments Blood Pressure 122/50 08/25/2019 1:48 PM EDT Pulse 51 08/25/2019 1:48 PM EDT Temperature 36.3 ??C (97.4 ??F) 08/25/2019 1:48 PM EDT Respiratory Rate 16 08/25/2019 1:48 PM EDT Oxygen Saturation 99% 08/25/2019 1:48 PM EDT Inhaled Oxygen Concentration - - Weight 62.8 kg (138 lb 6.4 oz) 08/25/2019 1:48 PM EDT Height 162.6 cm (5' 4.02) 08/25/2019 1:48 PM EDT Body Mass Index 23.74 08/25/2019 1:48 PM EDT documented in this encounter Patient Instructions Patient InstructionsSuKaro quiros APRN - 08/25/2019 2:00 PM EDT Images from the original note were not included. Referral placed for colonscopy to Dr. De Santiago Continue your Miralax for you constipation Take your omeprazole daily Daily Patient Education Learning About Colonoscopy What is a colonoscopy? A colonoscopy is a test (also called a procedure) that lets a doctor look inside your large intestine. The doctor uses a thin, lighted tube called a colonoscope. The doctor uses it to look for small growths called polyps, colon or rectal cancer (colorectal cancer), or other problems like bleeding. During the procedure, the doctor can take samples of tissue. The samples can then be checked for cancer or other conditions. The doctor can also take out polyps. How is a colonoscopy done? This procedure is done in a doctor's office or a clinic or hospital. You will get medicine to help you relax and not feel pain. Some people find that they do not remember having the test because of themedicine. The doctor gently moves the colonoscope, or scope, through the colon. The scope is also a small video camera. It lets the doctor see the colon and take pictures. A colonoscopy usually takes 30 to 45 minutes. It may take longer if the doctor has to remove polyps. How do you prepare for the procedure? You need to clean out your colon before the procedure so the doctor can see all of your colon. You may start the cleaning process a day or two before the test. This depends on which colon prep your doctor recommends. To clean your colon, you stop eating solid foods and drink only clear liquids. You can have water, tea, coffee, clear juices, clear broths, flavored ice pops, and gelatin (such as Jell-O). Do not drinkanything red or purple, such as grape juice or fruit punch. And do not eat red or purple foods, suchas grape ice pops or loo gelatin. The day or night before the procedure, you drink a large amount of a special liquid. This causes loose, frequent stools. You will go to the bathroom a lot. It is very important to drink all of the colon prep liquid. If you have problems drinking the liquid, call your doctor. For many people, the prep is worse than the test. It may be uncomfortable, and you may feel hungry on the clear liquid diet. Some people do not go to work or do their usual activities on the day of theprep. Arrange to have someone take you home after the test. What can you expect after a colonoscopy? The nurses will watch you for 1 to 2 hours until the medicines wear off. Then you can go home. You will need a ride. Your doctor will tell you when you can eat and do your usual activities. Your doctor will talk to you about when you will need your next colonoscopy. The results of your test and your risk for colorectal cancer will help your doctor decide how often you need to be checked. Follow-up care is a melchor part of your treatment and safety. Be sure to make and go to all appointments, and call your doctor if you are having problems. It's also a good idea to know your test results and keep a list of the medicines you take. Where can you learn more? Visit our health information library at [email or web address]. You can also view health information on [email or web address], your personal patient account. Log in or sign up today. Enter Z368 in the search box to learn more about Learning About Colonoscopy. Current as of: October 30, 2018 Content Version: 12.2 ?? 7254-9428 Connect. Care instructions adapted under license by [facility]. If you have questions about a medical condition or this instruction, always ask your healthcare professional. Connect disclaims any warranty or liability for your use of this information. Patient Education Constipation: Care Instructions Your Care Instructions Constipation means that you have a hard time passing stools (bowel movements). People pass stools from 3 times a day to once every 3 days. What is normal for you may be different. Constipation may occur with pain in the rectum and cramping. The pain may get worse when you try to pass stools. Sometimesthere are small amounts of bright red blood on toilet paper or the surface of stools. This is because of enlarged veins near the rectum (hemorrhoids). A few changes in your diet and lifestyle may help you avoid ongoing constipation. Your doctor may also prescribe medicine to help loosen your stool. Some medicines can cause constipation. These include pain medicines and antidepressants. Tell your doctor about all the medicines you take. Your doctor may want to make a medicine change to ease your symptoms. Follow-up care is a melchor part of your treatment and safety. Be sure to make and go to all appointments, and call your doctor if you are having problems. It's also a good idea to know your test results and keep a list of the medicines you take. How can you care for yourself at home? ?? Drink plenty of fluids, enough so that your urine is light yellow or clear like water. If you have kidney, heart, or liver disease and have to limit fluids, talk with your doctor before you increasethe amount of fluids you drink. ?? Include high-fiber foods in your diet each day. These include fruits, vegetables, beans, and whole grains. ?? Get at least 30 minutes of exercise on most days of the week. Walking is a good choice. You also may want to do other activities, such as running, swimming, cycling, or playing tennis or team sports. ?? Take a fiber supplement, such as Citrucel or Metamucil, every day. Read and follow all instructions on the label. ?? Schedule time each day for a bowel movement. A daily routine may help. Take your time having yourbowel movement. ?? Support your feet with a small step stool when you sit on the toilet. This helps flex your hips and places your pelvis in a squatting position. ?? Your doctor may recommend an [id number]-cbuemkd laxative to relieve your constipation. Examples areMilk of Magnesia and MiraLax. Read and follow all instructions on the label. Do not use laxatives olga lidia long-term basis. When should you call for help? Call your doctor now or seek immediate medical care if: ? You have new or worse belly pain. ? You have new or worse nausea or vomiting. ? You have blood in your stools. ??Watch closely for changes in your health, and be sure to contact your doctor if: ? Your constipation is getting worse. ? You do not get better as expected. Where can you learn more? Visit our Polyplex information library at [email or web address]. You can also view health information on Virtual Ports, your personal patient account. Log in or sign up today. Enter P343 in the search box to learn more about Constipation: Care Instructions. Current as of: May 07, 2019 Content Version: 12.2 ?? [id number] Connect. Care instructions adapted under license by [facility]. If you have questions about a medical condition or this instruction, always ask your healthcare professional. Connect disclaims any warranty or liability for your use of this information. documented in this encounter Progress Notes Karo Pham APRN - 08/25/2019 2:00 PM EDT Established Patient ACUTE Visit History of Presenting Illness: Patient here to followup on acute issues Patient PCP - Giorgio Cardona MD From [facility] note 07/24/2019 Memory Problem SLUMS - suggest bring another person to visit. Will need new SLUMS and hx?? 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- Will be going to [place] in November for a few months he has a trailer and some land there- he will be working on this property while there- his will likely stay here she does not enjoy the heat [place] but he really enjoys it there- No SOB No coughing- not using any inhalers or nebulizer currently Driving is okay- not getting lost Discussed repeating colonoscopy orders placed for procedure to be done by Jonnathan Shah per patient request Patient reported measures in the past 7 days Pain:10 Physical Health:Good pretty good Mental Health: feels good in general Patient Active Problem List Diagnosis ??? Splinter [...] features. 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 [id number]; KRAS negative, EGFR negative --09/2010: CT scan - normal --02/2011: CT scan --09/2011: CT scan - negative annual CT's afterwards Outpatient Encounter Medications as of 08/25/2019 Medication Sig Dispense Refill ??? loratadine (CLARITIN) 10 mg Tablet Take 10 mg by mouth daily. ??? [DISCONTINUED] guaiFENesin 600 mg Tablet Extended Release 12hr Take 1,200 mg by mouth 2 times daily. ??? ipratropium-albuterol (COMBIVENT RESPIMAT) 20-100 mcg/actuation [...] taking: Reported on 07/24/2019) 1 Box 4 No facility-administered encounter medications on file as of 08/25/2019. Social History Socioeconomic History ??? Marital status: [...] on phone: None Gets together: None Attends episcopalian service: None Active member of club or organization: None Attends meetings of clubs or organizations: None Relationship status: None ??? Intimate partner violence: Fear of current or ex partner: None Emotionally abused: None Physically abused: None Forced sexual activity: None Other Topics Concern ??? None Social History Narrative ??? None Review of systems: Review of Systems Constitutional: Negative for chills, fever and malaise/fatigue. Respiratory: Negative for cough. Cardiovascular: Negative for chest pain and leg swelling. Gastrointestinal: Positive for constipation. Musculoskeletal: Negative for back pain and falls. Neurological: Positive for dizziness. Psychiatric/Behavioral: Negative for depression. Objective Physical Exam Constitutional: He is oriented to person, place, and time. He appears well- developed and well-nourished. No distress. Eyes: Conjunctivae are normal. Cardiovascular: Normal rate and regular rhythm. Pulmonary/Chest: Effort normal and breath sounds normal. He has no wheezes. Abdominal: Soft. Musculoskeletal: He exhibits no edema. Neurological: He is alert and oriented to person, place, and time. Repeat [facility] today Skin: Skin is warm and dry. Psychiatric: He has a normal mood and affect. His behavior is normal. 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 Next Appointment: No follow-ups on file. Orders placed in this Encounter: Orders Placed This Encounter Procedures ??? FluAd Trivalent, Adjuvanted Vaccine,65+ ??? Referral to Gastroenterology Referral Priority: Routine Referral Type: Consultation Referral Reason: Test Only Referred to Provider: Jonnathan Shah MD Number of Visits Requested: 1 Laboratory Studies No results found for this or any previous visit (from the past 72 hour(s)). Marianne Melendrez CCMA - 08/25/2019 2:00 PM EDT Images from the original note were not included. documented in this encounter Plan of Treatment Upcoming Encounters Date Type Specialty Care Team Description 10/11/2022 Office Visit Dermatology Virgilio Mckeon MD [facility] DR CHRISTIANO HENSON-DERMAT OLOGY [place], [place] [address] (Wo rk) 10/16/2022 Office Visit Otolaryngology Frank Buchanan MD [facility] OTOLARYNGOLOGY D EPT. [place], [place] [address] (Wo rk) 11/29/2022 Appointment Hematology and Oncology 11/29/2022 Office Visit Radiation Oncology Emerald Leyva APRN [facility] RADIATION ONCOLO [place], [place] [address] (Wo rk) Scheduled Referrals Name Type Priority Associated Diagnoses Order S chedule Referral to Outpatient Routine Diverticulosis of Ordered: Gastroenterology Referral large intestine 08/25/20 19 without perforation or abscess with bleeding documented as of this encounter Procedures Procedure Name Priority Date/Time Associated Diagnosis Comme nts LAB SCAN 08/28/2019 12:00 AM Results for this EDT procedure are i n the results section . documented in this encounter Results SCAN DOC: LAB (08/28/2019 12:00 AM EDT) Narrative 08/28/2019 12:00 AM EDT This result has an attachment that is no t available. Ordered by an unspecified provider. Scanning Provider MEDIA MGR SCAN EXT ORDR/RSLT documented in this encounter Visit Diagnoses Diagnosis Diverticulosis of large intestine withou t perforation or abscess with bleeding Diverticulosis of colon with hemorrhage Need for prophylactic vaccination agains t Streptococcus pneumoniae (pneumococcus) and influenza Gastroesophageal reflux disease without esophagitis Esophageal reflux documented in this encounter Care Teams Transportation Services Representative Relationship Specialty Start Date End Date Giorgio Cardona MD PCP - General General Internal Medicine 11/29/17 0 [facility] [place] [address] documented as of this encounter
--- OUTSIDE RECORDS SUMMARY | 2022-10-09 16:13 | XMS_ITS | Encounter Summary ---
:1940 Author Organization [facility] [address] Care Team Providers Name Role Phone Giorgio Cardona MD Primary Care Provider Encounter Details Date Type Department Care Team Description 07/15/2019 Telephone Internal Medicine at [facility] Rhiannon Shankar, [place] [phone] Social History Tobacco Use Types Packs/Day Years Used Date Smoking Tobacco: Never Smokeless Tobacco: Never Alcohol Use Standard Drinks/Week Comments Yes 0 (1 standard drink = 0.6 oz pure alcoho l) RARE Sex Assigned at Date Recorded Not on file documented as of this encounter Miscellaneous Notes Telephone Encounter - Rhiannon Shankar RN - 07/15/2019 9:44 AM EDT I called patient and relayed message to continue his inhalers. He expressed understanding. He went on to tell me that he is feeling good now. He states he is breathing good and has not coughed at all since staring on new medication as well as his inhalers. He wanted to let Dr. Cardona know that he appreciates all he has done for me. I told patient that I would relay all of this to Dr. Cardona andadvised him to call with any further questions or concerns. He agreed that he would. Telephone Encounter - Rhiannon Shankar RN - 07/15/2019 9:33 AM EDT ----- Message from Giorgio Cardona MD sent at 07/11/2019 12:24 PM EDT ----- I think he should remain on his inhalers - I think he is on combivent - can we double check with him ----- Message ----- From: Nash Sy MD Sent: 07/09/2019 8:51 AM EDT To: Giorgio Cardona MD documented in this encounter Plan of Treatment Upcoming Encounters Date Type Specialty Care Team Description 10/11/2022 Office Visit Dermatology Virgilio Mckeon MD [facility] DR CHRISTIANO HENSON-DERMAT OLOGY [place], [place] [address] (Wo rk) 10/16/2022 Office Visit Otolaryngology Frank Buchanan MD [facility] OTOLARYNGOLOGY Sarah EPT. [place], [place] [address] (Wo rk) 11/29/2022 Appointment Hematology and Oncology 11/29/2022 Office Visit Radiation Oncology Emerald Leyva APRN [facility] RADIATION ONCOLO GY [place], [place] [address] (Wo rk) documented as of this encounter Visit Diagnoses Not on filedocumented in this encounter Care Teams Senior Electrical Controls Engineer Relationship Specialty Start Date End Date Giorgio Cardona MD PCP - General General Internal Medicine 11/29/17 0 [facility] [place] [address] documented as of this encounter
--- OUTSIDE RECORDS SUMMARY | 2022-10-09 16:13 | XMS_ITS | Encounter Summary ---
:1940 Author Organization [place] [place] [address] Care Team Providers Name Role Phone Giorgio Cardona MD Primary Care Provider Encounter Details Date Type Department Care Team Description 06/09/2019 Telephone Internal Medicine at [facility] Chrissy Issa, [place] [phone] Social History Tobacco Use Types Packs/Day [...] Visit Dermatology Virgilio Mckeon MD [facility] DR CHRISTIANO HENSON-DERMAT OLOGY [place], [place] [address] (Wo rk) 10/16/2022 Office Visit Otolaryngology Frank Buchanan MD [facility] OTOLARYNGOLOGY Sarah T. [place], [place] [address] (Wo rk) 11/29/2022 Appointment Hematology and Oncology 11/29/2022 Office Visit Radiation Oncology Emerald Leyva APRN [facility] DR RADIATION ONCOLO GY [place], [place] [address] (Wo rk) documented as of this encounter Visit Diagnoses Diagnosis Asthma, unspecified asthma severity, uns pecified whether complicated, unspecified whether persistent Wheezing documented in this encounter Care Teams Orthopedic Physical Therapist Relationship Specialty Start Date End Date Giorgio Cardona MD PCP - General General Internal Medicine 11/29/17 0 [facility] [place] [address] documented as of this encounter
--- OUTSIDE RECORDS SUMMARY | 2022-10-09 16:13 | XMS_ITS | Encounter Summary ---
:1940 Author Organization [facility] [place] [address] Care Team Providers Name Role Phone Giorgio Cardona MD Primary Care Provider Encounter Details Date Type Department Care Team Description 09/05/2019 Telephone Radiation Oncology at Jazmine Vargas RN [address] [phone] Social History Tobacco Use Types Packs/Day Years Used Date Smoking Tobacco: Never Smokeless Tobacco: Never Alcohol Use Standard Drinks/Week Comments Yes 0 (1 standard drink = 0.6 oz pure alcoho l) RARE Sex Assigned at Date Recorded Not on file documented as of this encounter Miscellaneous Notes Telephone Encounter - aJzmine Vargas RN - 09/05/2019 4:11 PM EDT RESEARCH NURSE TELEPHONE NOTE [id number] Phase III Randomized Study Of High Dose 3D-BROOM MAKER/IMRT Versus Standard Dose 3D-BROOM MAKER/IMRT in Patients Treated for Localized Prostate Cancer Date: 09/05/2019 Reason for call: See previous note dated 08/27/19 regarding lab work. (home) Spoke with patient to inform him of Testosterone level : 571 which is a normal level Patient expressed appreciation for this call. He was encouraged to call the clinic with any further questions or concerns. Becka Dean APRN, informed of this via this note. documented in this encounter Plan of Treatment Upcoming Encounters Date Type Specialty Care Team Description 10/11/2022 Office Visit Dermatology Virgilio Mckeon MD [facility] DR CHRISTIANO HENSON-DERMAT OLOGY [place], [place] [address] (Wo rk) 10/16/2022 Office Visit Otolaryngology Frank Buchanan MD [facility] OTOLARYNGOLOGY D EPT. [place], [place] [address] (Wo rk) 11/29/2022 Appointment Hematology and Oncology 11/29/2022 Office Visit Radiation Oncology Emerald Leyva APRN [facility] RADIATION ONCOLO GY [place], [place] [address] (Wo rk) documented as of this encounter Visit Diagnoses Not on filedocumented in this encounter Care Teams Actuarial Consultant Relationship Specialty Start Date End Date Giorgio Cardona MD PCP - General General Internal Medicine 11/29/17 0 [facility] GENERAL [place] [address] documented as of this encounter
--- OUTSIDE RECORDS SUMMARY | 2022-10-09 16:13 | XMS_ITS | Encounter Summary ---
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 [facility] Thoracic Surg [address] [place] [address] Chest wo Contrast (Generic) [place] [address] [place] [phone] Referral ID Status Reason Start Date Expiration Date Visits V isits Requested Authorized [id number] Closed Specialty 07/03/2019 07/02/2020 1 1 Service Requested Encounter Details Date Type Department Care Team Description 07/03/2019 Orders Only Thoracic Surgery at [facility] Schwarz Hist ory of lobectomy of lung; [facility] RN [place] [phone] Social History Tobacco Use Types Packs/Day Years [...] Office Visit Dermatology Virgilio Mckeon MD [facility] ER DR CHRISTIANO HENSON-DERMAT OLOGY [place], [place] [address] (Wo rk) 10/16/2022 Office Visit Otolaryngology Frank Buchanan MD [facility] ER OTOLARYNGOLOGY D EPT. 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
--- OUTSIDE RECORDS SUMMARY | 2022-10-09 16:13 | XMS_ITS | Encounter Summary ---
:1940 Author Organization [facility] [place] [address] Care Team Providers Name Role Phone Dexter Pereira MD Primary Care Provider Reason for Visit Reason Onset Date Comments Triage 06/18/2020 Encounter Details Date Type Department Care Team Description 06/18/2020 Telephone Internal Medicine at [facility] [place] [address] Social History Tobacco Use Types Packs/Day Years Used Date Smoking Tobacco: Never Smokeless Tobacco: Never Alcohol Use Standard Drinks/Week Comments Yes 0 (1 standard drink = 0.6 oz pure alcoho l) RARE Sex Assigned at Date Recorded Not on file documented as of this encounter Miscellaneous Notes Telephone Encounter - Katya Nicholas LPN - 06/18/2020 11:45 AM EDT Left voice message on secure line to return call to clinic. Phone number provided Telephone Encounter - Ernesto Calle - 06/18/2020 10:53 AM EDT Message: Kimberly the patient's girlfriend states the patient is experiencing swelling of his left foot and leg. This agent was unable to find a [place] appointment for the patient. Kimberly states that she will most likely take pt to the walk in clinic or to the ED. Please call to discuss. Ask caller their first and last name and relationship to the patient: Kimberly-girlfriend Best time to call back: any Ok to leave a message: no Ok to send my- message: no Offered Appointment: none available MA/Nurse/Slot Router contacted via: Message: y Call: n Pager: n documented in this encounter Plan of Treatment Upcoming Encounters Date Type Specialty Care Team Description 10/11/2022 Office Visit Dermatology Virgilio Mckeon MD [facility] DR CHRISTIANO HENSON-DERMAT OLOGY [place] [id number] (Wo rk) 10/16/2022 Office Visit Otolaryngology Frank Buchanan MD [facility] OTOLARYNGOLOGY Sarah [address]PT[address] [place], [place] [address] (Wo rk) 11/29/2022 Appointment Hematology and Oncology 11/29/2022 Office Visit Radiation Oncology Emerald Leyva APRN [facility] RADIATION ONCOLO GY [place], [place] [address] (Wo rk) documented as of this encounter Visit Diagnoses Not on filedocumented in this encounter Care Teams Director University Relationship Specialty Start Date End Date Dexter Pereira MD PCP - General Internal Medicine 06/21/20 11/20/21 [address] [place] [address] documented as of this encounter
--- OUTSIDE RECORDS SUMMARY | 2022-10-09 16:13 | XMS_ITS | Encounter Summary ---
:1940 Author Organization [facility] Address [facility] [place] [address] Care Team Providers Name Role Phone Giorgio Cardona MD Primary Care Provider Reason for Visit Reason Comments Follow-up Encounter Details Date Type Department Care Team Description 06/30/2019 Office Visit Thoracic Surgery at [facility] Dexter Pugh MD follow-up surveillance [facility] of lung cancer [address] [place] THORACIC SURGERY [address] [place] [address] [phone] Social History Tobacco Use Types Packs/Day Years Used Date Smoking Tobacco: Never Smokeless Tobacco: Never Alcohol Use Standard Drinks/Week Comments Yes 0 (1 standard drink = 0.6 oz pure alcoho l) RARE Sex Assigned at Date Recorded Not on file documented as of this encounter Last Filed Vital Signs Vital Sign Reading Time Taken Comments Blood Pressure 110/55 06/30/2019 3:42 PM EDT Pulse 69 06/30/2019 3:42 PM EDT Temperature 36.5 ??C (97.7 ??F) 06/30/2019 3:42 PM EDT Respiratory Rate 17 06/30/2019 3:42 PM EDT Oxygen Saturation 98% 06/30/2019 3:42 PM EDT Inhaled Oxygen Concentration - - Weight 59.5 kg (131 lb 3.2 oz) 06/30/2019 3:42 PM EDT Height 163.5 cm (5' 4.37) 06/30/2019 3:42 PM EDT Body Mass Index 22.26 06/30/2019 3:42 PM EDT documented in this encounter Progress Notes Dexter Cote MD - 06/30/2019 4:00 PM EDT Thoracic surgery follow-up visit Chief complaint: Follow-up lobectomy History of present illness: Mr. 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 I most recently saw him in August 2016, at which time he was doing well but having occasional episodes of aspiration and was bothered by a hoarse voice. I referred him to see an functional analyst and he was offered medialization of the left vocal cord but has deferred this. He comes in today with similar complaints of occasional aspiration and hoarse voice, but otherwise feels well. He is continuing to travel between [place] and [place] and is overall happy with his progress. Current Outpatient Medications on File Prior to Visit Medication Sig Dispense Refill ??? ipratropium-albuterol (DUONEB) 0.5 mg-3 mg(2.5 mg base)/3 mL Solution for Nebulization Take 0.5 mg by nebulization 4 times daily. J45.909 1 Box 4 ??? fluticasone propionate (FLONASE) 50 mcg/actuation [place], Suspension 1 spray by Each Nare route [...] taking: Reported on 06/30/2019) 1 Inhaler 12 No current facility-administered medications on file prior to visit. BP 110/55 (Patient Position: Sitting) Pulse 69 Temp 36.5 ??C (97.7 ??F) (Temporal) Resp 17 Ht 163.5 cm (5' 4.37) Wt 59.5 kg (131 lb 3.2 oz) SpO2 98% BMI 22.26 kg/m?? Physical exam: He appears comfortable today. He is alert, oriented and in no distress. His lungs areclear, his heart is regular and his abdomen is nontender nondistended. Imaging: I reviewed with the patient his chest CT dated May 21. On this study, there is no evidenceof recurrent, metastatic or new disease Assessment: 79-year-old man now 9 years removed from a thoracoscopic right lower lobectomy. I advised the patient that continuing annual surveillance was recommended, and we will schedule him for follow-up next year with a noncontrast chest CT. Plan: Return to clinic in 1 year for noncontrast chest CT DEXTER COTE MD documented in this encounter Plan of Treatment Upcoming Encounters Date Type Specialty Care Team Description 10/11/2022 Office Visit Dermatology Virgilio Mckeon MD [facility] DR CHRISTIANO HENSON-DERMAT OLOGY [place], [place] [address] (Wo rk) 10/16/2022 Office Visit Otolaryngology Frank Buchanan MD [facility] OTOLARYNGOLOGY Sarah EPT. [place], [place] [address] (Wo rk) 11/29/2022 Appointment Hematology and Oncology 11/29/2022 Office Visit Radiation Oncology Emerald Leyva APRN [facility] RADIATION ONCC[place]AR [place], [place] [address] (Wo rk) documented as of this encounter Visit Diagnoses Diagnosis Encounter for follow-up surveillance of lung cancer Unspecified follow-up examination documented in this encounter Care Teams Truck Service Technician Relationship Specialty Start Date End Date Giorgio Cardona MD PCP - General General Internal Medicine 11/29/17 0 [facility] GENERAL [place] [address] documented as of this encounter
--- OUTSIDE RECORDS SUMMARY | 2022-10-09 16:13 | XMS_ITS | Encounter Summary ---
:1940 Author Organization [facility] Address [facility] [place] [address] Care Team Providers Name Role Phone Giorgio Cardona MD Primary Care Provider Reason for Visit Reason Comments Follow-up eyes are blurry and dizzines s when standing x2 days ago, coughing up things still Encounter Details Date Type Department Care Team Description 06/04/2019 [facility] A, ROSITA SOB (shortness of breath); [facility] Ess ential hypertension; Randall SCHWARTZ S/P thyroidectomy; [place], [place] INTERNAL MEDIC[facility] E Hypothyroidism, postsurgical [address] [place] [address] [phone] Social History Tobacco Use Types Packs/Day Years Used Date Smoking Tobacco: Never Smokeless Tobacco: Never Alcohol Use Standard Drinks/Week Comments Yes 0 (1 standard drink = 0.6 oz pure alcoho l) RARE Sex Assigned at Date Recorded Not on file documented as of this encounter Last Filed Vital Signs Vital Sign Reading Time Taken Comments Blood Pressure 107/58 06/04/2019 4:30 PM EDT Pulse 64 06/04/2019 1:45 PM EDT Temperature 36.6 ??C (97.9 ??F) 06/04/2019 1:06 PM EDT Respiratory Rate 16 06/04/2019 1:06 PM EDT Oxygen Saturation 97% 06/04/2019 1:06 PM EDT Inhaled Oxygen Concentration - - Weight 60.3 kg (133 lb) 06/04/2019 1:06 PM EDT Height 162.6 cm (5' 4) 06/04/2019 1:06 PM EDT Body Mass Index 22.83 06/04/2019 1:06 PM EDT documented in this encounter Patient Instructions Patient InstructionsSuKaro quiros APRN - 06/04/2019 1:00 PM EDT Continue Mucinex NO DECONGESTANT Continue claritin Take the lasix every other day (furosemide) Take the omeprazole 20mg twice daily on an empty stomach Prednisone taper 30mg x 5 days 20mg x 5 days, 10mg x 5 days then stop. Nebulizer with DUONEB solution is to be used 4 times daily for cough and wheezing You may use the inhaler ONLY if you are not home and you begin coughing or have wheezing or shortness of breath- DO NOT USE BOTH THE NEBULIZER AND THE INHALER Follow up in 3 weeks for evaluation and at that time and arrange more testing if you are still coughing, wheezing and having problems with a lot of phlegm ?? Labs today Return in 3 weeks documented in this encounter Progress Notes Karo Pham APRN - 06/04/2019 1:00 PM EDT General Internal Medicine Visit Subjective: Patient ID: Alfredito Mina is a 79 y.o. male a patient of Giorgio Cardona MD presents today for: Follow up visit from 05/29/2019 Lung Cancer: Last CT showed no evidence of recurrence- HTN: Does not take his BP at home- Today his BP is low-he feels weak- Gets dizzy when he stands up Lying 101/54 P60 Stand: 88/46 P64 Stand:92/47 P64 GERD: He is not taking his omeprazole because he rarely has sympoms since stopping coffee. He was advised to take this to see if it helps with the cough and because he will be taking prednisone. He is in agreement Cough and mucos production: last visit prednisone burst was ordered-also combivent prn-also has albuterol prn Less coughing and the mucos prduction is less. Duoneb given during visit- the mucous was loosened and was able to expectorate a large amount of white thick sputum-he felt better after the nebulizer Post nasal drip: Flonase: Using it improved with the flonase Wheezing: Prednisone burst with combivent finished prednisone-the coughing was improved-but there is still a lot of mucous-he has trouble expectorating it Review of Systems Constitutional: Negative for activity change, appetite change, chills, fatigue, fever and unexpectedweight change. HENT: Positive for postnasal drip (improved). Respiratory: Positive for cough and wheezing. Negative for chest tightness and shortness of breath. Objective: Visit Vitals BP 107/58 Pulse 64 Temp 36.6 ??C (97.9 ??F) (Oral) Resp 16 Ht 162.6 cm (5' 4) Wt 60.3 kg (133 lb) SpO2 97% BMI 22.83 kg/m?? BP Readings from Last 3 Encounters: 06/04/19 107/58 05/29/19 120/66 05/13/19 125/61 Wt Readings from Last 3 Encounters: 06/04/19 60.3 kg (133 lb) 05/29/19 59.9 kg (132 lb) 05/13/19 60.2 kg (132 lb 12.8 oz) Physical Exam Constitutional: He is oriented to person, place, and time. He appears well-developed. Thin-no distress HENT: Right Ear: External ear normal. Left Ear: External ear normal. Nose: Nose normal. Mouth/Throat: Oropharynx is clear and moist. Cardiovascular: Normal rate, regular rhythm and normal heart sounds. No murmur heard. Pulmonary/Chest: Effort normal. He has wheezes. He has rales. Rhonchi and expiratory wheezing Both improved after Duoneb treatment in the office Musculoskeletal: Normal range of motion. He exhibits no edema. Lymphadenopathy: He has no cervical adenopathy. Neurological: He is alert and oriented to person, place, and time. Skin: Skin is warm and dry. Capillary refill takes less than 2 seconds. Psychiatric: He has a normal mood and affect. His behavior is normal. Thought content normal. Post duoneb treatment his wheezing improved-he expectorated a large amount of thick white sputum-he felt better and his breath sounds were improved with wheezing resolved. Assessment and Plan: Mr. Mina was seen today for the following issues Lung Cancer: Last CT Chest: 05/21/2019 -IMPRESSION No evidence of local recurrence or distant metastatic disease. Continue to monitor HTN: Atenolol 50mg 0.5 tabs (25mg) daily Furosemide 20mg daily- change to every other day he was advised to buy a cuff-monitor his BP daily and record Bring readings to next visit GERD: Omeprazole 20mg BID- Advised to use while on prednisone and also to see if it hemps cough Cough with wheeze and mucos production: Continue Mucinex without decongestant Nebulizer QID prn cough wheeze with Duoneb MDI if nebulizer unavailable ONLY Continue prednisone with a tapering dose 30mg X5 days 20mg X5 days 10mg X 5 days Post nasal drip: Improved- Continue Flonase Wheezing: Improved after nebulizer with duoneb Ordered nebulizer with Duoneb QID PRN May use MDI if not at home and needs a treatment for cough-wheeze Advised to not use both together Mr. Mina was given him after visit summary including any necessary instructions related to today's encounter. documented in this encounter Plan of Treatment Upcoming Encounters Date Type Specialty Care Team Description 10/11/2022 Office Visit Dermatology Virgilio Mckeon MD [facility] DR CHRISTIANO HENSON-DERMAT OLOGY [place], [place] [address] (Wo rk) 10/16/2022 Office Visit Otolaryngology Frank Buchanan MD [facility] OTOLARYNGOLOGY Sarah EPT. [place], [place] [address] (Wo rk) 11/29/2022 Appointment Hematology and Oncology 11/29/2022 Office Visit Radiation Oncology Emerald Leyva APRN [facility] RADIATION [place], [place] [address] (Wo rk) documented as of this encounter Procedures Procedure Name Priority Date/Time Associated Diagnosis Comme nts HEMOGRAM Routine 06/04/2019 2:44 PM SOB (shortness of Resu lts for this EDT breath) procedure are i n the results section. DIFFERENTIAL, Routine 06/04/2019 2:44 PM SOB (shortness of Res ults for this AUTOMATED EDT breath) procedure are i n the results section. CBC (WITH DIFF) Routine 06/04/2019 2:44 PM SOB (shortness of EDT breath) TSH Routine 06/04/2019 2:44 PM S/P thyroidec marisol Results for this EDT Hypothyroidism, procedure ar e in postsurgical the results section. HEMOGLOBIN A1C Routine 06/04/2019 2:44 PM Elevated blood sugar Results for this EDT level procedure are i n the results section. BASIC METABOLIC Routine 06/04/2019 2:44 PM Essential Result s for this PANEL (NON-FASTING) EDT hypertension procedur e are in the results section. documented in this encounter Results (ABNORMAL) Differential, Automated (06/04/2019 2:44 PM EDT) P athologist Signature Neutrophils % 67.2 % [facility] Neutr Abs (ANC) 4.63 1.70 - [facility] 6.10 [facility] x10(3)/[facility] LABORATORY Lymphocytes % 16.1 % [facility] Lymphocytes Abs 1.1 0.9 - 3.2 [facility] x10(3)/[facility] LABORATORY Monocytes % 13.5 % [facility] Monocyte Abs 0.9 0.3 - 0.9 [facility] x10(3)/[facility] LABORATORY Eosinophils % 1.6 % [facility] Eosinophils Abs 0.1 0.0 - 0.4 [facility] x10(3)/[facility] LABORATORY Basophils % 0.4 % [facility] Basophils Abs 0.0 0.0 - 0.1 [facility] x10(3)/[facility] LABORATORY Immature Gran % 1.20 % [facility] Comment: Immature granulocytes(IG's)percentage an d absolute count will include metamyelocytes, myelocytes, and promyelo cytes. Blood smears from CBCs yielding IG's will be scanned manually for madi funk. If this scan disagrees with the automated IG or if promyelocytes are not ed, a manual differential will be performed. Becki Gran Abs 0.08 (H) 0.00 - 0.04 x10(3)/[facility] LABORATORY Specimen Anatomical Collection Method Collection Time Receive d Time (Source) Location / / Volume Laterality Blood specimen 06/04/2019 2:44 PM 019 2:50 (specimen) EDT PM EDT Resulting Agency Comment Spec In Lab Karo Pham APRN HEMATOLOGY ORDERABLES Performing Organization Address City/State/[place] [address] (ABNORMAL) Hemogram (06/04/2019 2:44 PM EDT) Analysis Performed At Patho logist Time Signature WBC 6.9 4.0 - 9.5 [facility] x10(3)/[facility] LABORATORY RBC 4.15 (L) 4.58 - [facility] 5[facility]54 [facility] x10(6)/[facility] LABORATORY Hemoglobin 13.8 13.7 - [facility] 16.5 gm/dL [facility] Hematocrit 41.1 40.5 - [facility] 48.5 % [facility] MCV 99.0 (H) 82.9 - [facility] 93.1 [facility] LABORATORY MCH 33.3 (H) 27.5 - [facility] [place] 32.1 pg [facility] MCHC 33.6 32.0 - [facility] [place] 35.7 gm/dL [facility] Platelets 192 145 - 357 [facility] x10(3)/[facility] LABORATORY RDWSD 48.3 (H) 36.0 - [facility] 45.0 [facility] LAB[facility]AT[facility] RDWCV 13.2 11.4 - [facility] 13.8 % [facility] MPV 11.1 7.6 - 12.9 [facility] LABORATORY nRBC % Auto 0.0 % [facility] nRBC Abs Auto 0.000 0.000 - [facility] 0.000 [facility] x10(3)/[facility] LABORATORY Specimen Anatomical Collection Method Collection Time Receive d Time (Source) Location / / Volume Laterality Blood specimen 06/04/2019 2:44 PM 019 2:50 (specimen) EDT PM EDT Resulting Agency Comment Spec In Lab Karo Pham COLLECTIONS AGENT HEMATOLOGY ORDERABLES Performing Organization Address City/State/[place] [address] (ABNORMAL) Hemoglobin A1c (06/04/2019 2:44 PM EDT) Analysis Performed At Patho logist Time Signature Hemoglobin A1C 5.8 (H) 4.3 - 5.6 [facility] Comment: Reference Range: 4.3 - 5.6% 5.7 - 6.4% - Increased Risk of Developin g Diabetes Mellitus >= 6.5% - Consistent with diagnosis of D iabetes Mellitus In the absence of hyperglycemia (i.e. pl asma glucose > 200 mg/dL) or classic symptoms of hyperglycemia a repeat measu rement of HbA1c should be performed on a separate sample to confirm the diagnos is. Diagnosis and Classification of Diabetes Mellitus, Diabetes Care 2013; 36: Suppl. 1, S67-74 Est Avg Gluc See note mg/dL [facility] Comment: Estimated Average Glucose not appropriat e for patients over 70 years of age. eAG equivalents for HbA1c percentages: HbA1c(%) ?eAG(mg/dL) 6.0 ?126 6.5 ?140 7.0 ?154 7.5 ?169 8.0 ?183 8.5 ?197 9.0 ?212 9.5 ?226 10.0 ? 240 Limitations: The eAG calculation has not been validated on women, individuals below 18 years old and above 70 years old, and individuals with hemoglobinopathies. Additional resources are available on [facility] website. Eliot FAJARDO, Abhishek J, Denisse R, et al. ??Tr anslating the A1C assay into estimated average glucose values. ??Diabetes Care 2008:31(8):9433-3706. Specimen Anatomical Collection Method Collection Time Receive d Time (Source) Location / / Volume Laterality Blood specimen 06/04/2019 2:44 PM 019 2:50 (specimen) EDT PM EDT Resulting Agency Comment Spec In Lab Karo Pham APRN CHEMISTRY ORDERABLES Performing Organization Address City/[facility]/[place] [address] TSH (06/04/2019 2:44 PM EDT) P athologist Signature TSH 0.37 0.27 - 4.20 [facility] mcIU/mL [facility] Specimen Anatomical Collection Method Collection Time Receive d Time (Source) Location / / Volume Laterality Blood specimen 06/04/2019 2:44 PM 019 2:50 (specimen) EDT PM EDT Resulting Agency Comment Spec In Lab Karo Pham APRN CHEMISTRY ORDERABLES Performing Organization Address City/[facility] [place] [address] (ABNORMAL) Basic Metabolic Panel (non-fasting) (06/04/2019 2:44 PM EDT) P athologist Signature Glucose Lvl 112 65 - 199 [facility] mg/dL [facility] Comment: Diabetes: >=200 mg/dL plus symp toms BUN 25 (H) 10 - 20 mg/dL [facility] Creatinine 1.27 0.80 - 1.50 mg/dL [facility] Sodium 136 135 - 145 mmol/L [facility] Potassium 4.2 3.5 - 5.0 mmol/L [facility] Comment: Please note: ??Patients with WBC >100,00 0 may have falsely elevated Potassium levels. ??For accurate Potassium quantif ication in these patients send serum separator tube (gold top) for subsequent determinations. ??Contact the Clinical Chemistry Laboratory if there are any qu estions. Chloride 98 98 - 107 mmol/L [facility] CO2 27 22 - 31 mmol/L [facility] Anion Gap 11 5 - 15 mmol/L [facility] Calcium 8.7 8.5 - 10.5 mg/dL [facility] Estimated GFR 53 (L) >=60 mL/min/1.73 m?? [facility] Comment: The eGFR was calculated using the CKD-EP I equation. As with all creatinine based estimates of kidney function, eGFR values calculated with the CKD-EPI equation are not accurate in patients wi th acute kidney failure, extremes of body mass or the acutely ill. [email or web address]SAnkf eGFR 61 >=60 mL/min/1.73 m?? [facility] Comment: The eGFR was calculated using the CKD-EP I equation. As with all creatinine based estimates of kidney function, eGFR values calculated with the CKD-EPI equation are not accurate in patients wi th acute kidney failure, extremes of body mass or the acutely ill. [email or web address] Specimen Anatomical Collection Method Collection Time Receive d Time (Source) Location / / Volume Laterality Blood specimen 06/04/2019 2:44 PM 019 2:50 (specimen) EDT PM EDT Resulting Agency Comment Spec In Lab Karo Pham APRN CHEMISTRY ORDERABLES Performing Organization Address City/State/[place] [address] documented in this encounter Visit Diagnoses Diagnosis Elevated blood sugar level Other abnormal glucose SOB (shortness of breath) Shortness of breath Essential hypertension Unspecified essential hypertension S/P thyroidectomy Other postprocedural status Hypothyroidism, postsurgical Postsurgical hypothyroidism documented in this encounter Administered Medications Inactive Administered Medications - up to 3 most recent administrations Medication Order MAR Action Action Date Dose Rate Site ipratropium-albuterol (DUONEB) 0.5 Given 06/04/2019 2:01 PM EDT 3 mLs mg-3 mg(2.5 mg base)/3 mL nebulizer solution 3 mL 3 mL, Nebulization, EVERY 6 HOURS, 1 dose, First dose on Sun06/04/19 at 1400, Routine documented in this encounter Care Teams Assembler Adjuster Relationship Specialty Start Date End Date Giorgio Cardona MD PCP - General General Internal Medicine 11/29/17 1/ [address] [facility] GENER[place] [address] documented as of this encounter
--- OUTSIDE RECORDS SUMMARY | 2022-10-09 16:13 | XMS_ITS | Encounter Summary ---
:1940 Author Organization [facility] [place] [address] Care Team Providers Name Role Phone Giorgio Cardona MD Primary Care Provider Encounter Details Date Type Department Care Team Description 06/06/2019 Telephone Internal Medicine at [facility] Babar Aguilar MD [facility] [place] [address] GENERAL INTERNAL MEDICINE [phone] [place], [place] [address] (Wo rk) Social History Tobacco Use Types Packs/Day Years Used Date Smoking Tobacco: Never Smokeless Tobacco: Never Alcohol Use Standard Drinks/Week Comments Yes 0 (1 standard drink = 0.6 oz pure alcoho l) RARE Sex Assigned at Date Recorded Not on file documented as of this encounter Miscellaneous Notes Addendum Note - Karo Vallecillo APRN - 06/09/2019 10:41 AM EDT Addended by: KARO VALLECILLO on: 06/09/2019 10:41 AM Modules accepted: Orders Addendum Note - Chrissy Sánchez RN - 06/09/2019 10:07 AM EDT Addended by: CHRISSY SÁNCHEZ on: 06/09/2019 10:07 AM Modules accepted: Orders Telephone Encounter - Chrissy Sánchez RN - 06/09/2019 9:06 AM EDT PC to [facility] in [facility] and spoke to Holden who confirms that they have a nebulizer. Prescription prepared for Karo Vallecillo APRN to review, sign and will be e- scribed to [employer] in [facility]. Telephone Encounter - Imer Marquez - 06/09/2019 8:44 AM EDT Patient calling about getting a nebulizer - has solution but no nebulizer - please contact patient to discuss - unable to understand patient regarding what the pharmacy told him. Qualified diagnosis Telephone Encounter - Babar Aguilar MD - 06/06/2019 5:22 PM EDT GIM Creel Cleaner Telephone Note Received phone call from patient to report that the prescription for his nebulizer machine did not include a covered diagnosis on the prescription. It sounds like his coughing and wheezing has been present for the past 3-4 weeks and it is not clearwhether he has COPD or asthma to qualify for a nebulizer machine and has not had PFT's from review of Dr. Cardona' note. Advised to continue with MDI use for coughing and wheezing and if more SOB this weekend he should present to the ED for further evaluation. Otherwise, he should call the Blue Team nurses on Sunday morning to get a prescription that includesa qualifying diagnosis on the prescription. documented in this encounter Plan of Treatment Upcoming Encounters Date Type Specialty Care Team Description 10/11/2022 Office Visit Dermatology Virgilio Mckeon MD [facility] DR CHRISTIANO HENSON-DERMAT [place], [place] [address] (Wo rk) 10/16/2022 Office Visit Otolaryngology Frank Buchanan MD [facility] OTOLARYNGOLOGY Sarah EPT. [place], [place] [address] (Wo rk) 11/29/2022 Appointment Hematology and Oncology 11/29/2022 Office Visit Radiation Oncology Emerald Leyva APRN [facility] RADIATION ONCOLO GY [place], [place] [address] (Wo rk) documented as of this encounter Visit Diagnoses Diagnosis Cough, persistent Cough Wheezing Asthma, unspecified asthma severity, uns pecified whether complicated, unspecified whether persistent documented in this encounter Care Teams Office System Analyst Relationship Specialty Start Date End Date Giorgio Cardona MD PCP - General General Internal Medicine 11/29/17 0 [facility] [place] [address] documented as of this encounter
--- OUTSIDE RECORDS SUMMARY | 2022-10-09 16:13 | XMS_ITS | Encounter Summary ---
:1940 Author Organization [facility] [place] [address] Care Team Providers Name Role Phone Dexter Pereira MD Primary Care Provider Encounter Details Date Type Department Care Team Description 08/31/2020 Telephone Radiation Oncology at SamJazmine funes RN [address] [phone] Social History Tobacco Use Types Packs/Day Years Used Date Smoking Tobacco: Never Smokeless Tobacco: Never Alcohol Use Standard Drinks/Week Comments Never 0 (1 standard drink = 0.6 oz pure alcoho l) RARE Sex Assigned at Date Recorded Not on file documented as of this encounter Miscellaneous Notes Telephone Encounter - Jazmine Vargas RN - 08/31/2020 3:55 PM EDT RESEARCH NURSE TELEPHONE NOTE [id number] Phase III Randomized Study Of High Dose 3D-FAST FOOD FRY COOK/IMRT Versus Standard Dose 3D-FAST FOOD FRY COOK/IMRT in Patients Treated for Localized Prostate Cancer Date: 08/31/2020 Reason for call: Left message on pt's home telephone number regarding lab work needed for study. He had PSA ordered and done on 08/18/20, but no testosterone. Left brief message 08/24/20 and today asking for return call if he is willing to go back to [facility] for blood draw for the testosterone level per study requirements. Testosterone ordered and faxed to [facility]. Plan: Telephone f/u appointment with Roya Benavides APRN on 09/10/20 documented in this encounter Plan of Treatment Upcoming Encounters Date Type Specialty Care Team Description 10/11/2022 Office Visit Dermatology Virgilio Mckeon MD [facility] DR CHRISTIANO HENSON-DERMAT OLOGY [place], [place] [address] (Wo rk) 10/16/2022 Office Visit Otolaryngology Frank Buchanan MD [facility] OTOLARYNGOLOGY Sarah EPT. [place], [place] [address] (Wo rk) 11/29/2022 Appointment Hematology and Oncology 11/29/2022 Office Visit Radiation Oncology Emerald Leyva APRN [facility] RADIATION ONCOLO GY [place], [place] [address] (Wo rk) documented as of this encounter Visit Diagnoses Diagnosis Malignant neoplasm of prostate documented in this encounter Care Teams Fireworks Display Specialist Relationship Specialty Start Date End Date Dexter Pereira MD PCP - General Internal Medicine 06/21/20 11/20/21 [address] [place] [address] documented as of this encounter
--- OUTSIDE RECORDS SUMMARY | 2022-10-09 16:13 | XMS_ITS | Encounter Summary ---
:1940 Author Organization [facility] [place] [address] Care Team Providers Name Role Phone Dexter Pereira MD Primary Care Provider Encounter Details Date Type Department Care Team Description 08/03/2020 Hospital Encounter Ultrasound at [facility] Shilpa Alcantara MD Scrotal anomaly [facility] [address] [place] [address] [phone] Social History Tobacco Use Types Packs/Day Years Used Date Smoking Tobacco: Never Smokeless Tobacco: Never Alcohol Use Standard Drinks/Week Comments Yes 0 (1 standard drink = 0.6 oz pure alcoho l) RARE Sex Assigned at Date Recorded Not on file documented as of this encounter Medications at Time of Discharge Medication Sig Dispensed Refills Start Date End Date furosemide (Lasix) 40 Take 20 mg by mouth 0 07/31 mg Tablet daily. levothyroxine Take 100 mcg by mouth 0 07/08/2020 (Synthroid) 100 mcg daily. Tablet potassium chloride ER Take 10 [...] 10/11/2022 Office Visit Dermatology Virgilio Mckeon MD [facility] DR CHRISTIANO HENSON[facility]DERMAT OLOGY [place], [place] [address] (Wo rk) 10/16/2022 Office Visit Otolaryngology Frank Buchanan MD [facility] OTOLARYNGOLOGY D EPT. [place], [place] [address] (Wo rk) 11/29/2022 Appointment Hematology and Oncology 11/29/2022 Office Visit Radiation Oncology Emerald Leyva APRN [facility] RADIATION ONCCESAR GY [place], [place] [address] (Wo rk) documented as of this encounter Procedures Procedure Name Priority Date/Time Associated Diagnosis Comme nts US SCROTUM Routine 08/03/2020 2:23 PM Scrotal anomaly Result s for this EDT procedure are i n the results section . documented in this encounter Results US Scrotum (08/03/2020 2:23 [...] questions regarding this report, please contact t rita number below. Electronically signed by: Dexter navarro MD, [facility] ([phone]), at 2:29 PM ?Dexter Rosales, Staff Physician Electronically Signed Final Report ?? 02:35 pm Narrative 08/03/2020 2:36 PM EDT Scrotal ? (Signed Final 08/03/2020 02:35 pm) PATIENT INFO: ID #: ? [id number] ?: ??38 (80 yrs)(M) Name: ? KATLIN J ?Visit Date: 08/03/2020 02:18 pm ? RACQUEL PERFORMED BY: Performed By: ? Gage King RDMS Attending: ?Bobby GALINDO, Cary Caal Referred By: ?SHILPA ALCANTARA Location: ? [place] SERVICE(S) PROVIDED: ??[facility] - Scrotum and Contents with Limit ed Vascular ?55060, 72883 ??evaluation - [id number] INDICATIONS: ??Scrotal bulge and pain COMPARISON: Ultrasound: [...] 08/03/2020 02:35 pm) PATIENT INFO: ID #: [id number] : 38 (80 y rs)(M) Name: KATLIN Rodriguez Visit Date: 08/03/2020 02:18 pm RACQUEL PERFORMED BY: Performed By: Justina King RDMS Attending: Dexter Rosales MD Referred By: SHILPA ALCANTARA Location: [place] SERVICE(S) PROVIDED: [facility] - Scrotum and Contents with Limited Vascular 50855, 22342 evaluation - [id number] INDICATIONS: Scrotal bulge and pain COMPARISON: Ultrasound: [...] below. Electronically signed by: Dexter navarro MD, [facility] ([phone]), at 2:29 PM Dexter Rosales, Staff Physician Electronically Signed Final Report 08/03 02:35 pm Shilpa Alcantara MD [facility] GEN ORDERABLES documented in this encounter Visit Diagnoses Diagnosis Scrotal anomaly documented in this encounter Care Teams Plant Supervisor Relationship Specialty Start Date End Date Dexter Pereira MD PCP - General Internal Medicine 06/21/20 11/20/21 [address] [place] [address] documented as of this encounter
--- OUTSIDE RECORDS SUMMARY | 2022-10-09 16:13 | XMS_ITS | Encounter Summary ---
:1940 Author Organization [facility] Address [facility] [place] [address] Care Team Providers Name Role Phone Klaus Vila MD Primary Care Provider Encounter Details Date Type Department Care Team Description 02/02/2020 TH Visit Internal Medicine at Parker Mayen [facility] (TeleHealth) 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 Majano for dizziness. Patient describes dizziness that occurs upon standing [...] his above describe symptoms do not improve. He reports he stopped atenolol 25 mg and has not had dizziness since then. He states he doesn't havea way to monitor. He takes potassium 5 mEq (just 1/2 tablet) which he was told to do. He takes 1 tsp Miralax 1 tsp bid and has 2-3 soft BM per day. He is not taking omeprazole, but does use Rolaids as needed. He reports that after thyroid surgery his voice was affected and sounds raspy. He has been prescribed Combivent or Duonebs for chronic cough but is not taking them. He denies difficulty breathing recently but has phlegm that he swallows sometimes. Decision Making/Plan: Medications reviewed as above. Advised to get home monitor for BP and HR. Dizziness/lightheadedness has resolved since stopping atenolol 25 mg. He is advised that first choice is to have a friend or family member pick it up for him and leave it at his door but [facility] vital signs [facility]. He is advised on going early in the day, hand hygiene especially since he is in higher risk category for COVID-19. Patient verbally consents to this telephone visit and understands that this visit may be billed, similar to a clinic office visit. I provided care to the patient today via telephone call, 22 minutes telephone visit was spent in discussion with patient on above. documented in this encounter Plan of Treatment Upcoming Encounters Date Type Specialty Care Team Description 10/11/2022 Office Visit Dermatology Virgilio Mckeon MD [facility] DR CHRISTIANO HENSON-DERMAT [place], [place] [address] (Leroy bhatia) 10/16/2022 Office Visit Otolaryngology Frank Buchanan MD [facility] OTOLARYNGOLOGY Sarah EPT. [place], [place] [address] (Leroy bhatia) 11/29/2022 Appointment Hematology and Oncology 11/29/2022 Office Visit Radiation Oncology Emerald Leyva APRN [facility] RADIATION ONCCESAR GY [place], [place] [address] (Leroy bhatia) documented as of this encounter Visit Diagnoses Not on filedocumented in this encounter Care Teams Piccoloist Relationship Specialty Start Date End Date Klaus Vila MD PCP - General General Internal Medicine 12/12/19 06/20/20 [facility] GENERAL [place] [address] documented as of this encounter
--- OUTSIDE RECORDS SUMMARY | 2022-10-09 16:13 | XMS_ITS | Encounter Summary ---
:1940 Author Organization [facility] [place] [address] Care Team Providers Name Role Phone Giorgio Cardona MD Primary Care Provider Reason for Visit Reason Comments Cough cough, SOB, yellow mucus, x4 weeks Encounter Details Date Type Department Care Team Description 05/29/2019 Office Visit Internal Medicine at Deandre Cardona MD Malignant neoplasm of hilus of lung, uns pecified laterality; [facility] Vocal cord paralysis; [facility] Post-nasal drip [place] GENERAL INTERNAL [place], [place] MEDICINE [address] [place] [address] [phone] (Wo rk) Social History Tobacco Use Types Packs/Day Years Used Date Smoking Tobacco: Never Smokeless Tobacco: Never Alcohol Use Standard Drinks/Week Comments Yes 0 (1 standard drink = 0.6 oz pure alcoho l) RARE Sex Assigned at Date Recorded Not on file documented as of this encounter Last Filed Vital Signs Vital Sign Reading Time Taken Comments Blood Pressure 120/66 05/29/2019 10:10 AM EDT Pulse 57 05/29/2019 10:10 AM EDT Temperature 36.7 ??C (98.1 ??F) 05/29/2019 10:10 AM EDT Respiratory Rate 16 05/29/2019 10:10 AM EDT Oxygen Saturation 99% 05/29/2019 10:10 AM EDT Inhaled Oxygen Concentration - - Weight 59.9 kg (132 lb) 05/29/2019 10:10 AM EDT Height 162.6 cm (5' 4) 05/29/2019 10:10 AM EDT Body Mass Index 22.66 05/29/2019 10:10 AM EDT documented in this encounter Patient Instructions Patient InstructionsBaGiorgio luciano MD - 05/29/2019 10:30 AM EDT 1. Continue claritin (loratadine) and mucinex 2. flonase (over the counter) twice daily 3. Add combivent inhaler four times daily 4. PRednisone 40mg x 5 days documented in this encounter Progress Notes Giorgio Cardona MD - 05/29/2019 10:30 AM EDT Established Patient Follow-up Visit History of Presenting Illness: Patient here to followup on acute and chronic medical issues Coughing up mucous - milk products. Tickle in throat. Aching, It is clear, yellow, parker. CT scan - has developed two hernias He gets occasional chills - aches all over - but does not interfere with nausea. No energy feels weak Lots of post-nasal drip - that is the cough Never smoker but exposed Never had PFTs Some wheezing at this time - particularly when coughing. Feeling worried about choking Not using nasal spray at this time Started to take some mucinex currently Takes some loratadine This has dried it up a lot. Worse in AM - keeps up at night Has sensation in throat. Inhaler - not sure it helps. Not coughing as much with inhaler - Patient reported measures in the past 7 days Pain:7 Physical Health:Poor Mental Health: Patient Active Problem List Diagnosis [...] features. 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 [id number]; KRAS negative, EGFR negative --09/2010: CT scan - normal --02/2011: CT scan --09/2011: CT scan - negative annual CT's afterwards Outpatient Encounter Medications as of 05/29/2019 Medication Sig Dispense Refill ??? albuterol 90 mcg/actuation HFA Aerosol Inhaler Inhale 2 puffs into the lungs every 4 hours as needed for Wheezing, Shortness of Breath or Cough. Use with spacer 1 Inhaler 0 ??? atenolol (TENORMIN) 50 mg Tablet Take [...] by mouth daily.30 tablet 11 ??? ipratropium-albuterol (COMBIVENT RESPIMAT) 20-100 mcg/actuation Mist Inhale 1 puff into the lungs every 6 hours as needed for Wheezing. 1 Inhaler 12 ??? predniSONE (DELTASONE) 20 mg Tablet Take 2 tablets by mouth daily. 10 tablet 0 No facility-administered encounter medications on file as of 05/29/2019. Social History Socioeconomic History ??? Marital status: [...] on phone: None Gets together: None Attends yazidi service: None Active member of club or [...] (- ) chills, sweats (- ) fatigue Cardiovascular - ( -)chest pain ( -)palpitations Respiratory - (- )SOB, NIEVES ( -)cough, sputum (- )wheezing HEENT - [...] at rest or with movement Objective Vitals: 05/29/19 1010 BP: 120/66 BP Location (NBP): Right arm Patient Position: Sitting BP Cuff Sizes: Adult (25-34 cm) Pulse: 57 Resp: 16 Temp: 36.7 ??C (98.1 ??F) SpO2: 99% Weight: 59.9 kg (132 lb) Height: 162.6 cm (5' 4) PF: 210 L/min Gen -no acute distress. Alert, responsive and comfortable HEENT - oropharynx moist without lesions Neck - Full range of motion, no bruits, no lymphadenopathy or thyromegaly. No increase in JVD. Lungs - ++wheezes, no crackles. Chest/Back - No spinal tenderness. No visible deformities or scoliosis appreciated. Heart - RRR, S1,S2, no murmur, gallop or rub Abdomen - Soft, nontender, no hepatosplenomegaly, masses or distention, normal active bowel sounds Extremities - No edema Skin - No rashes, lesions, plaques, nodules Neurological - grossly normal Gait: grossly intact with normal stride length, speed, and arm swing Assessment/Plan: 1. Malignant neoplasm of hilus of lung, unspecified laterality 2. Vocal cord paralysis 3. Post-nasal drip Has considerable expiratory wheezing. I wonder about COPD vs. Asthma at this time in his hx of lung cancer. We provided a nebulizer in the office setting today. He felt better. Will tx with steroids atthis time - prednisone 40mg x 5 days then stop - RTC next week. Also flonase twice daily, continue claritin And add combivent inhaler four times daily If better - then PFTs in 6 weeks at that time (did not order) with bronchodilator challenge. If no better - extend prednisone burst - 30mg x 5 d, 20mg x 5 days, 10mg x 5 days then stop. F/u at that time and arrange PFTs. I counselled the patient on the above [...] by one of my nurses, letter, or [facility]. Next Appointment: Return for next sun/ Karo [place] 60min. Orders placed in this Encounter: No orders of the defined types were placed in this encounter. Laboratory Studies No results found for this or any previous visit (from the past 72 hour(s)). documented in this encounter Plan of Treatment Upcoming Encounters Date Type Specialty Care Team Description 10/11/2022 Office Visit Dermatology Virgilio Mckeon MD [facility] [address]-DERMAT OLOGY [place], [place] [address] (Wo rk) 10/16/2022 Office Visit Otolaryngology Frank Buchanan MD [facility] OTOLARYNGOLOGY D EPT. [place], [place] [address] (Wo rk) 11/29/2022 Appointment Hematology and Oncology 11/29/2022 Office Visit Radiation Oncology Emerald Leyva APRN [facility] RADIATION ONCOLO GY [place], [place] [address] (Wo rk) documented as of this encounter Visit Diagnoses Diagnosis Malignant neoplasm of hilus of lung, uns pecified laterality Vocal cord paralysis Paralysis of vocal cords or larynx, unsp ecified Post-nasal drip Postnasal drip documented in this encounter Care Teams Chemical Plant Worker Relationship Specialty Start Date End Date Giorgio Cardona MD PCP - General General Internal Medicine 11/29/17 0 [facility] [place] [address] documented as of this encounter
--- OUTSIDE RECORDS SUMMARY | 2022-10-09 16:13 | XMS_ITS | Encounter Summary ---
:1940 Author Organization [facility] [place] [address] Care Team Providers Name Role Phone Dexter Pereira MD Primary Care Provider Encounter Details Date Type Department Care Team Description 08/19/2020 Clinical Support Same Day at [facility] [place] [address] Social History Tobacco Use Types Packs/Day Years Used Date Smoking Tobacco: Never Smokeless Tobacco: Never Alcohol Use Standard Drinks/Week Comments Never 0 (1 standard drink = 0.6 oz pure alcoho l) RARE Sex Assigned at Date Recorded Not on file documented as of this encounter Progress Notes Madison Lyn RN - 08/19/2020 4:15 PM EDT PAT questionnaire reviewed with patient and girlfriend while in Pre Admission testing. Pre-operativeinstruction booklet reviewed. Patient verbalizes a good understanding of all information reviewed. PLAN: Testing: None Special medication instructions: None Procedure date: not yet booked. Trus documented in this encounter Plan of Treatment Upcoming Encounters Date Type Specialty Care Team Description 10/11/2022 Office Visit Dermatology Virgilio Mckeon MD [facility] DR CHRISTIANO HENSON-DERMAT OLOGY [place], [place] [address] (Wo rk) 10/16/2022 Office Visit Otolaryngology Frank Buchanan MD [facility] OTOLARYNGOLOGY Sarah EPT. [place], [place] [address] (Wo rk) 11/29/2022 Appointment Hematology and Oncology 11/29/2022 Office Visit Radiation Oncology Emerald Leyva APRN [facility] RADIATION ONCCESAR GY [place], [place] [address] (Wo rk) documented as of this encounter Visit Diagnoses Not on filedocumented in this encounter Care Teams Tower Air Traffic Control Specialist Relationship Specialty Start Date End Date Dexter Pereira MD PCP - General Internal Medicine 06/21/20 11/20/21 [address] [place] [address] documented as of this encounter
--- OUTSIDE RECORDS SUMMARY | 2022-10-09 16:13 | XMS_ITS | Encounter Summary ---
:1940 Author Organization [facility] [place] [address] Care Team Providers Name Role Phone Giorgio Cardona MD Primary Care Provider Reason for Visit Reason Comments Radiation Follow-up prostate cancer Encounter Details Date Type Department Care Team Description 08/21/2019 Office Visit Radiation Oncology at [place], Bill Herbert ignkeila neoplasm of [facility] WOOD GLUER prostate [address] [place], [place] RADIATION ONCOL OGY [address] [place], [place] [phone] (Wo rk) Social History Tobacco Use Types Packs/Day Years Used Date Smoking Tobacco: Never Smokeless Tobacco: Never Alcohol Use Standard Drinks/Week Comments Yes 0 (1 standard drink = 0.6 oz pure alcoho l) RARE Sex Assigned at Date Recorded Not on file documented as of this encounter Last Filed Vital Signs Vital Sign Reading Time Taken Comments Blood Pressure 142/62 08/21/2019 8:38 AM EDT Pulse 50 08/21/2019 8:38 AM EDT Temperature 36.3 ??C (97.3 ??F) 08/21/2019 8:38 AM EDT Respiratory Rate 18 08/21/2019 8:38 AM EDT Oxygen Saturation 98% 08/21/2019 8:38 AM EDT Inhaled Oxygen Concentration - - Weight 62.7 kg (138 lb 3.2 oz) 08/21/2019 8:38 AM EDT Height - - Body Mass Index 23.72 07/24/2019 8:39 AM EDT documented in this encounter Progress Notes Becka Dean, WOOD GLUER - 08/21/2019 9:00 AM EDT Patient ID: Alfredito Mina is a 79 y.o. male.who is in radiation oncology clinic [...] were taken and the specimen reported in [facility] pathology under session #[id number] prostate: The right lobe apex, mid, and base negative; the left apex was 3 + 3 in 40% of one core; the left mid was 3 + 4 in 50% of one core; and the left base showed a 3 + 4 in 5% in one of two cores. This information was reviewed at [facility] on October 19, 2006, and the report paralleled that given by the [facility]. The [facility] session number was [id number]. The patient was then seen by Dr. Mixon on December 26, 2005, and after review, his note indicates an IPS of 9/35. He had no difficulties with erectile dysfunction. His physical examination revealed a 30-gram prostate without nodularity, and the gland was smooth. With a PSA indicated of 5.4, a [place] score of 4 + 3 = 7/10, staged as a T1c N0, it was considered intermediate risk with a possibility oforgan-confined disease of about 50%, seminal vesicle 8%, and lymph nodes 3%. The [facility] five-year survival review was indicated at surgery [...] and Biopsy 09/19/2006 Volume in cc 56 Sofy grade/score a+b=c 4+3=7 Total Cores 12 [...] history: : 1. Adenocarcinoma of the prostate. [id number], Sofy 4+3, left lobe involved. OLGA (-), [...] MONITORING, SETUP performed by FRANK MAC at [facility] OR ??? PRO COLONOSCOPY, REMV L[place], SNARE 01/06/2013 COLONOSCOPY, POLYPECTOMY, REMOVAL LESION BY SNARE performed by Josh Jeffery MD at [facility] ??? PRO REPAIR RECURR INGUIN KIRAN, REDUCIBL 03/10/2011 HERNIA REPAIR, INGUINAL, RECURRENT performed by NOREEN BOWIE at [facility] OR ??? PRO THYROIDECTOMY=SUBSTERNAL, TRANSCERV 11/30/2011 THYROIDECTOMY, INCL. SUBSTERNAL, CERVICAL APPROACH performed by FRANK MAC at [facility] OR ??? PRO TOTAL KNEE ARTHROPLASTY 06/19/2012 @TOTAL KNEE ARTHROPLASTY performed by ADAM CARRERO at [facility] OR ??? ROTATOR CUFF REPAIR 2013 ??? UMBILICAL HERNIA REPAIR ??? UPPER GI ENDOSCOPY, EXAM 01/29/2012 UPPER GI ENDOSCOPY performed by VICKI SON at [facility] Allergies Allergen Reactions ??? Cyclobenzaprine Urinary retention, xerostomia ??? Lactose Other (See Comments) Sneezing Current Outpatient Medications on File Prior to Visit Medication Sig Dispense Refill ??? ipratropium-albuterol (COMBIVENT RESPIMAT) 20-100 mcg/actuation Mist [...] Reported on 07/24/2019) 1 Box 4 ??? guaiFENesin 600 mg Tablet Extended Release 12hr Take 1,200 mg by mouth 2 times daily. ??? loratadine (CLARITIN) 10 mg Tablet Take 10 mg by mouth daily. No current facility-administered medications on file prior to visit. Review and update of social history today Family History: Mother 2012 at age 105--she had asthma, osteoporosis. Father at age 55, smoked too much, heart problems. Brother has bone cancer not doing well. 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 Single. Five children and sevengrandkids. 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 Has been spending vora in [place]. Used to play basketball. No alcohol. He is on friendly terms with his ex- and she assists him as needed. Advance Directives: Completed. See advance care planning note. Interim History: Mr Mina reports that he is doing well at this time. 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 He does report that he has had some falls over the last year while at work. He has not had any injuries. He reports that he feels better when he works. He will again spend the winter in [place] where he has a home. He denies urinary problems at this time. [...] constipation and diarrhea. He denies abdominal discomfort. His PCP has discussed having a repeat colonoscopy since he hashad tubular adenomas with his last exam. Expanded Prostate Cancer Index Composite For Clinical [...] to do house painting No pain currently Will be in [place] for a few months returning in March HENT: Positive for postnasal drip and voice change. Negative for nosebleeds. 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 Negative for visual disturbance. Respiratory: Negative. Negative for cough, chest tightness, shortness of breath and wheezing. Had PFT this year Cardiovascular: Negative. Negative for chest pain and [...] is not nervous/anxious. Mood positive Some forgetfulness KPS: 100 Vitals Office Visit from 08/21/2019 in Radiation Oncology at [facility] Weight 62.7 kg (138 lb 3.2 oz) Temp 36.3 ??C (97.3 ??F) Temp src Oral Heart Rate 50 Heart Rate Source Right Resp 18 BP 142/62 BP Location Right arm Patient Position Sitting SpO2 98 % Karnofsky Score 70 Motor Neuropathy N/A Sensory Neuropathy N/A Objective: Physical Exam Constitutional: He is oriented to person, place, and time. Vital signs are normal. He appears well-developed and well-nourished. He does not appear ill. No distress. Weight stable HENT: Head: Normocephalic and atraumatic. Voice is hoarse--not new Eyes: Conjunctivae and EOM are normal. Right eye exhibits no discharge. Left eye exhibits no discharge. No scleral icterus. Neck: Normal range of motion. Neck supple. No neck rigidity. No edema, no erythema and normal range of motion present. Cardiovascular: Normal rate and regular rhythm. Exam reveals no gallop and no friction rub. Murmur heard. Pulmonary/Chest: Effort normal and breath sounds normal. No stridor. No respiratory distress. He hasno decreased breath sounds. He has no wheezes. He has no rhonchi. He has no rales. He exhibits no tenderness. Abdominal: Soft. Bowel sounds are normal. He exhibits no distension and no mass. There is no tenderness. There is no guarding. Genitourinary: Rectum normal and prostate normal. Rectal exam shows guaiac negative stool. Genitourinary Comments: Rectal--good sphincter tone. Prostate is flat, smooth with no areas of induration, no tenderness, no masses. Guaiac negative Musculoskeletal: Normal range of motion. He exhibits no edema or tenderness. Lymphadenopathy: Head (right side): No submental, no submandibular, no tonsillar, no preauricular, no posterior auricular and no occipital adenopathy present. Head (left side): No submental, no submandibular, no tonsillar, no preauricular, no posterior auricular and no occipital adenopathy present. He has no cervical adenopathy. He has no axillary adenopathy. Right: No inguinal and no supraclavicular adenopathy present. Left: No inguinal and no supraclavicular adenopathy present. Neurological: He is alert and oriented to person, place, and time. He exhibits normal muscle tone. Coordination normal. Skin: Skin is warm and dry. No rash noted. He is not diaphoretic. No erythema. No pallor. Sun damaged skin Psychiatric: He has a normal mood and affect. His behavior is normal. Judgment and thought content normal. Vitals reviewed. Laboratory Studies: date PSA Testosterone 08/21/2019 07/11/2018 0.18 6.29 04/20/2017 0.20 04/06/2016 [...] Plan: Mr Mina is a very pleasant 79 year old man with Adenocarcinoma of the prostate. [id number], Sofy 4+3, left lobe involved. OLGA (-), PSA of 5.4 Mr Mina was treated with external beam radiation under RTOG protocol and received 79.2 Gy completed on 04/12/2007 with no concurrent ADT. Mr Mina did not get his PSA done prior to clinic visit and will go to the lab today to have it drawn. We will call him with the results when they are available. Clinically there is no evidence of disease and patient has no adverse late effects of radiation. He continues followup with other providers for his other co-morbidities and is seen regularly by hisP. Patient is to return to radiation oncology in one year for repeat PSA and clinical evaluation as perRTOG trial. He is to call if he has questions or concerns in the meantime. documented in this encounter Plan of Treatment Upcoming Encounters Date Type Specialty Care Team Description 10/11/2022 Office Visit Dermatology Virgilio Mckeon MD [facility] ER DR CHRISTIANO HENSON-DERMAT [place] [address] (Wo rk) 10/16/2022 Office Visit Otolaryngology Frank Buchanan MD [facility] OTOLARYNGOLOGY Sarah EPT. [place], [place] [address] (Wo rk) 11/29/2022 Appointment Hematology and Oncology 11/29/2022 Office Visit Radiation Oncology Emerald Leyva APRN [facility] RADIATION ONCOLO GY [place], [place] [address] (Wo rk) documented as of this encounter Procedures Procedure Name Priority Date/Time Associated Diagnosis Comme nts LAB SCAN 08/21/2019 12:00 AM Results for this EDT procedure are i n the results section . documented in this encounter Results SCAN DOC: LAB (08/21/2019 12:00 AM EDT) Narrative 08/21/2019 12:00 AM EDT This result has an attachment that is no t available. Ordered by an unspecified provider. Scanning Provider MEDIA MGR SCAN EXT ORDR/RSLT documented in this encounter Visit Diagnoses Diagnosis Malignant neoplasm of prostate documented in this encounter Care Teams Coat Examiner Relationship Specialty Start Date End Date Giorgio Cardona MD PCP - General General Internal Medicine 11/29/17 0 [facility] [place] [address] documented as of this encounter
--- OUTSIDE RECORDS SUMMARY | 2022-10-09 16:13 | XMS_ITS | Encounter Summary ---
:1940 Author Organization [facility] [place] [address] Care Team Providers Name Role Phone Dexter Pereira MD Primary Care Provider Encounter Details Date Type Department Care Team Description 07/14/2020 Telephone Internal Medicine at [facility] [place] [address] Social History Tobacco Use Types Packs/Day Years Used Date Smoking Tobacco: Never Smokeless Tobacco: Never Alcohol Use Standard Drinks/Week Comments Yes 0 (1 standard drink = 0.6 oz pure alcoho l) RARE Sex Assigned at Date Recorded Not on file documented as of this encounter Miscellaneous Notes Telephone Encounter - Vanita Alford - 07/14/2020 10:01 AM EDT LVM for pt to sched AWV documented in this encounter Plan of Treatment Upcoming Encounters Date Type Specialty Care Team Description 10/11/2022 Office Visit Dermatology Virgilio Mckeon MD [facility] DR CHRISTIANO HENSON-DERMAT [place], [place] [address] (Wo rk) 10/16/2022 Office Visit Otolaryngology Frank Buchanan MD [facility] DR OTOLARYNGOLOGY Sarah EPT. [place], [place] [address] (Wo rk) 11/29/2022 Appointment Hematology and Oncology 11/29/2022 Office Visit Radiation Oncology Emerald Leyva APRN [facility] ER RADIATION ONCOLO GY [place], [place] [address] (Wo rk) documented as of this encounter Visit Diagnoses Not on filedocumented in this encounter Care Teams Injector Assembler Relationship Specialty Start Date End Date Dexter Pereira MD PCP - General Internal Medicine 06/21/20 11/20/21 [address] [place] [address] documented as of this encounter
--- OUTSIDE RECORDS SUMMARY | 2022-10-09 16:13 | XMS_ITS | Encounter Summary ---
:1940 Author Organization [facility] [place] [address] Care Team Providers Name Role Phone Giorgio Cardona MD Primary Care Provider Encounter Details Date Type Department Care Team Description 06/04/2019 Telephone Internal Medicine at [facility] Millie Long, [place] [address] Social History Tobacco Use Types Packs/Day [...] 10/11/2022 Office Visit Dermatology Virgilio Mckeon MD [facility] DR CHRISTIANO HENSON-DERMAT OLOGY [place], [place] [address] (Wo rk) 10/16/2022 Office Visit Otolaryngology Frank Buchanan MD [facility] OTOLARYNGOLOGY Sarah T. [place], [place] [address] (Wo rk) 11/29/2022 Appointment Hematology and Oncology 11/29/2022 Office Visit Radiation Oncology Emerald Leyva APRN [facility] DR RADIATION ONCOLO GY [place], [place] [address] (Wo rk) documented as of this encounter Visit Diagnoses Not on filedocumented in this encounter Care Teams Oxyacetylene Torch Operator Relationship Specialty Start Date End Date Giorgio Cardona MD PCP - General General Internal Medicine 11/29/17 0 [facility] GENER[place] [address] documented as of this encounter
--- OUTSIDE RECORDS SUMMARY | 2022-10-09 16:13 | XMS_ITS | Encounter Summary ---
:1940 Author Organization [facility] Address [address] [place] [address] Care Team Providers Name Role Phone Dexter Pereira MD Primary Care Provider Reason for Visit Reason Comments Inguinal Hernia Encounter Details Date Type Department Care Team Description 08/19/2020 Office Visit General Surgery at [facility], Gilson Coleman recurrent [facility] inguinal hernia [facility] wit hout obstruction or Drive DR [place], [place] GENERAL SURGERY [address] [place] [address] [phone] Social History Tobacco Use Types Packs/Day Years Used Date Smoking Tobacco: Never Smokeless Tobacco: Never Alcohol Use Standard Drinks/Week Comments Never 0 (1 standard drink = 0.6 oz pure alcoho l) RARE Sex Assigned at Date Recorded Not on file documented as of this encounter Last Filed Vital Signs Vital Sign Reading Time Taken Comments Blood Pressure 143/71 08/19/2020 3:03 PM EDT Pulse 72 08/19/2020 3:03 PM EDT Temperature - - Respiratory Rate 20 08/19/2020 3:03 PM EDT Oxygen Saturation 98% 08/19/2020 3:03 PM EDT Inhaled Oxygen Concentration - - Weight 63.5 kg (140 lb) 08/19/2020 3:03 PM EDT Height 162.6 cm (5' 4) 08/19/2020 3:03 PM EDT Body Mass Index 24.03 08/19/2020 3:03 PM EDT documented in this encounter Progress Notes Dulce Osborne MD - 08/19/2020 3:00 PM EDT I have seen the patient and reviewed Dr. Bose's history and I agree with the details as written. The assessment and plan were formulated in discussion with me and I agree with them as documented. Pertinent History: History of multiple inguinal repairs in the past with new recurrent left inguinalhernia. No incarceration or strangulation. Pertinent Exam: Small recurrent right as well as left inguinal Plan: Laparoscopic repair. Anesthesia consult for cord paralysis documented in this encounter H&P Notes Irene Bose MD - 08/19/2020 3:00 PM EDT Alfredito Mina is referred by Dexter Pereira [...] abdominal operations. 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 Past History: Past Medical History: Diagnosis Date ??? Arthritis knee replacement right ??? Aspiration into lower respiratory tract 05/06/2013 ??? Cancer lung 2009 ??? Colon polyps ??? Difficulty in swallowing ??? Dry mouth ??? Dyslipidemia ??? GERD (gastroesophageal reflux disease) ??? Heart valve disease I have had surgery here at [facility] for a valve repair ??? [...] MONITORING, SETUP performed by FRANK MAC at [facility] OR ??? PRO COLONOSCOPY, REMV [place], SNARE 01/06/2013 COLONOSCOPY, POLYPECTOMY, REMOVAL LESION BY SNARE performed by Josh Jeffery MD at [facility] ENDOSCOPY ??? PRO REPAIR RECURR INGUIN KIRAN, REDUCIBL 03/10/2011 HERNIA REPAIR, INGUINAL, RECURRENT performed by NOREEN BOWIE at [facility] OR ??? PRO THYROIDECTOMY=SUBSTERNAL, TRANSCERV 11/30/2011 THYROIDECTOMY, INCL. SUBSTERNAL, CERVICAL APPROACH performed by FRANK MAC at [facility] OR ??? PRO TOTAL KNEE ARTHROPLASTY 06/19/2012 @TOTAL KNEE ARTHROPLASTY performed by ADAM CRARERO at [facility] OR ??? ROTATOR CUFF REPAIR 2013 ??? UMBILICAL HERNIA REPAIR ??? UPPER GI ENDOSCOPY, EXAM 01/29/2012 UPPER GI ENDOSCOPY performed by VICKI SON at [facility] Right lower lobectomy Total thyroidectomy Open left inguinal hernia repair x2 Open right inguinal hernia repair Open umbilical hernia repair Social history: reports that he has never smoked. He has never used smokeless tobacco. He reports current alcohol use. He reports that he does not use drugs. Family History: Family History Problem Relation Age of Onset ??? Asthma Mother ??? Heart Failure Father ??? Thyroid Disease Paternal Grandmother Medications: Current Outpatient Medications on File Prior to Visit Medication Sig Dispense Refill ??? furosemide (Lasix) 40 mg Tablet Take 20-40 mg by mouth daily. ??? levothyroxine (Synthroid) 100 mcg Tablet Take 100 mcg by mouth daily. ??? potassium chloride ER (K-Dur/Klor-Con) 20 mEq Tab Sust.Rel. Particle/Crystal Take 10 mEq by mouth daily. ??? [DISCONTINUED] loratadine (Claritin) 10 mg Tablet Take 1 tablet by mouth daily. (Patient not taking: Reported on 08/03/2020) 90 tablet 3 ??? [DISCONTINUED] levothyroxine (SYNTHROID) 125 mcg Tablet TAKE ONE TABLET BY MOUTH EVERY MORNING 90 tablet 3 ??? [DISCONTINUED] ipratropium-albuterol (DUONEB) 0.5 mg-3 mg(2.5 mg base)/3 mL Solution for Nebulization Take 0.5 mg by nebulization 4 times daily. J45.909 (Patient not taking: Reported on 08/10/2020) 1 Box 4 ??? [DISCONTINUED] ipratropium-albuterol (COMBIVENT RESPIMAT) 20-100 mcg/actuation Mist Inhale 1 puff into the lungs every 6 hours as needed for Wheezing. (Patient not taking: Reported on 08/10/2020) 1 Inhaler 12 ??? terazosin (HYTRIN) 2 mg Capsule Take 1 capsule by mouth nightly. 90 capsule 3 ??? [DISCONTINUED] furosemide (LASIX) 20 mg Tablet Take 1 tablet by mouth daily. 90 tablet 3 ??? polyethylene glycol (MIRALAX) 17 gram Powder in Packet Take 17 g by mouth daily. ??? [DISCONTINUED] potassium chloride (K-DUR/KLOR-CON) 10 mEq extended release tablet Take 1 tablet by mouth daily. (Patient taking differently: Take 5 mEq by mouth daily.) 30 tablet 11 No current facility-administered medications on file prior to visit. Allergies: Cyclobenzaprine and Lactose Review of systems is negative for any unexplained weight loss or weight gain. He denies any cough, chest pain or shortness on breath on exertion. He has no fevers, chills or night sweats. He denies headaches, dizziness, weakness, numbness or ataxia. Bowel and bladder elimination is normal. All other system reviews are negative. On physical examination, this is a well appearing male. There is no scleral or skin icterus. Mucous membranes are moist, pupils reactive. His lungs are clear to auscultation. Heart is regular, rate, and rhythm and without murmurs. His abdomen is nontender and without palpable masses. A moderate-sized,reducible left inguinal hernia is easily appreciated, with a small scrotal component. He also has a small right inguinal hernia present on valsalva. The testicles are descended and without masses. He has bilateral groin scars, umbilical scar, sternotomy scar and mediastinal drain scars in the epigastrium. His extremity and neurological exam are grossly normal. Impression. Symptomatic left inguinal hernia with bilateral recurrent inguinal hernias on exam. Because he is bothered by his hernia symptoms, I agree that surgical repair is warranted. We discussed both open andlaparoscopic options for repair. The patient wishes to proceed with a laparoscopic repair of bilateral inguinal hernias. The majority of this visit was spent discussing the nature of hernia surgery andits risks, including risks of postoperative hematoma, neuralgias (which tend to resolve with time inmost patients), and hernia recurrence. Overall, he seems well informed and wishes to proceed. We will send him for anesthesia evaluation due to his vocal cord paralysis. Irene Bose MD PGY-6 Minimally Invasive Surgery Fellow documented in this encounter Plan of Treatment Upcoming Encounters Date Type Specialty Care Team Description 10/11/2022 Office Visit Dermatology Virgilio Mckeon MD [facility] DR CHRISTIANO HENSON-DERMAT OLOGY [place], [place] [address] (Wo sriram) 10/16/2022 Office Visit Otolaryngology Frank Buchanan MD [facility] OTOLARYNGOLOGMireille Smith EPT. [place], [place] [address] (Wo rk) 11/29/2022 Appointment Hematology and Oncology 11/29/2022 Office Visit Radiation Oncology Emerald Leyva, PROCESS ENGINEER [facility] ER RADIATION ONCCESAR [place], [place] [address] (Wo rk) documented as of this encounter Visit Diagnoses Diagnosis Unilateral recurrent inguinal hernia wit hout obstruction or gangrene Inguinal hernia without mention of obstr uction or gangrene, recurrent unilateral or unspecified documented in this encounter Care Teams Cake Washer Relationship Specialty Start Date End Date Dexter Pereira MD PCP - General Internal Medicine 06/21/20 11/20/21 [address] [place] [address] documented as of this encounter
--- OUTSIDE RECORDS SUMMARY | 2022-10-09 16:13 | XMS_ITS | Encounter Summary ---
:1940 Author Organization [place] [address] Care Team Providers Name Role Phone Giorgio Cardona MD Primary Care Provider Encounter Details Date Type Department Care Team Description 08/27/2019 Telephone Internal Medicine at [facility] [place] [address] Social History Tobacco Use Types Packs/Day [...] [facility] DR CHRISTIANO HENSON-DERMAT OLOGY [place], [place] [address] (Wo rk) 10/16/2022 Office Visit Otolaryngology Frank Buchanan MD [facility] OTOLARYNGOLOGY Sarah TDann [place], [place] [address] (Wo rk) 11/29/2022 Appointment Hematology and Oncology 11/29/2022 Office Visit Radiation Oncology Emerald Leyva APRN [facility] DR RYNE [place], [place] [address] (Wo rk) documented as of this encounter Visit Diagnoses Not on filedocumented in this encounter Care Teams Silver Wrapper Relationship Specialty Start Date End Date Giorgio Cardona MD PCP - General General Internal Medicine 11/29/1712/11/ 0 [facility] GENERAL [place] [address] documented as of this encounter
--- OUTSIDE RECORDS SUMMARY | 2022-10-09 16:14 | XMS_ITS | Encounter Summary ---
:1940 Author Organization [facility] [place] [address] Care Team Providers Name Role Phone Giorgio Cardona MD Primary Care Provider Reason for Referral Consultation (Routine) - Closed Specialty Diagnoses / Procedures Referred By Contact Refer red To Contact Diagnoses Counseling regarding advanced directives Fadia Quigley APRN [facility] General Internal [place], [place] [phone] [place] [address] Referral ID Status Reason Start Date Expiration Date Visits Requ ested Visits Authorized [id number] Closed Other 10/11/2018 10/11/2019 1 1 Reason for Visit Reason Comments Follow-up Encounter Details Date Type Department Care Team Description 10/11/2018 Office Visit Internal Medicine Fadia Quigley Elevat ed blood sugar level; at [facility] Counseling regarding advanced directives ; [facility] ion; [facility] Acute constipation; [place], [place] General Internal Depression, unspecified depression type; [address] Medicine Vocal cord paralysis; [phone] [place], [place] [address] Gastroesophageal reflux disease, esophag itis presence not specified; [phone] Dizzy spells (Work) Social History Tobacco Use Types Packs/Day Years Used Date Smoking Tobacco: Never Smokeless Tobacco: Never Alcohol Use Standard Drinks/Week Comments Yes 0 (1 standard drink = 0.6 oz pure alcoho l) RARE Sex Assigned at Date Recorded Not on file documented as of this encounter Last Filed Vital Signs Vital Sign Reading Time Taken Comments Blood Pressure 113/56 10/11/2018 9:17 AM EST Pulse 55 10/11/2018 9:17 AM EST Temperature 36.5 ??C (97.7 ??F) 10/11/2018 9:17 AM EST Respiratory Rate 16 10/11/2018 9:17 AM EST Oxygen Saturation 98% 10/11/2018 9:17 AM EST Inhaled Oxygen Concentration - - Weight 64.1 kg (141 lb 6.4 oz) 10/11/2018 9:17 AM EST Height 164 cm (5' 4.57) 10/11/2018 9:17 AM EST Body Mass Index 23.85 10/11/2018 9:17 AM EST documented in this encounter Patient Instructions Patient InstructionsFadia Quigley APRN - 10/11/2018 9:30 AM EST -please increase fluids to 10 glasses a day. -Claritin 10 mg daily, will help with the runny nose. -please have labs drawn. documented in this encounter Progress Notes Fadia Quigley APRN - 10/11/2018 9:30 AM EST ESTABLISHED PATIENT VISIT I. HISTORY A. Reason(s) for Visit: Alfredito Mina is a 78 y.o. male asked to be seen for Chief Complaint Patient presents with ??? Follow-up B. History of Present Illness: Mr. Mina is here for follow up of chronic medical issues. Bowels: Has noticed that he can not have a bowel movement unless he takes Mirilax BID. Wondering if this is safe to take like this. Doesn't think he drinks enough fluids throughout the day. Maybe getting 6 glasses in. Forgets to eat sometimes at night. Works 10 hour days, 5 days a week. No blood or pain. Mood: I'm depressed all the time for many reasons, it's just something I have to deal with. Is noton an antidepressant. Has not tried talk therapy, doesn't think he would be interested in this. Has had financial stress, this has resolved at this time. 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 HTN: Doesn't monitor at home. Currently taking Atenolol and Furosemide, tolerating these well. Does get dizzy from time to time. GERD: Has noticed that lately he has had more GERD. Takes Omeprazole 20 mg daily. I notice its worse when I don't eat at night. Gets home from work late and sometimes forgets to eat. No blood. Dizziness: Occasionally gets dizzy when he goes from sitting to standing. Resolves relatively quickly. This has been going on for a long time, its because I don't drink enough. Currently drinking 6 glasses of fluids daily. Has not had any syncopal episodes. No longer walks on planks at work related to this. Health Maintenance: Would like to have a flu shot today. Doesn't have an advanced directive on file. Patient Active Problem List Diagnosis Code ??? Acute constipation K59.00 ??? Dyslipidemia E78.5 ??? GERD (gastroesophageal reflux [...] F51.01 ??? Splinter T14.8XXA ??? Bunion M21.619 Allergies Allergen Reactions ??? Cyclobenzaprine Urinary retention, xerostomia ??? Lactose Other (See Comments) Sneezing Current Outpatient Medications on File Prior to Visit Medication Sig Dispense Refill ??? polyethylene glycol (MIRALAX) 17 gram Powder in Packet Take 17 g by mouth daily. ??? potassium chloride (K-DUR/KLOR-CON) 10 mEq extended release tablet Take 1 tablet by mouth daily.30 tablet 11 ??? atenolol (TENORMIN) 50 mg tablet TAKE ONE-HALF TABLET BY MOUTH EVERY DAY 45 tablet 3 ??? furosemide (LASIX) 20 mg tablet Take 1 tablet by mouth daily. 30 tablet ??? terazosin (HYTRIN) 2 mg capsule Take 1 capsule by mouth nightly. ??? levothyroxine (SYNTHROID) 125 mcg tablet Take 1 tablet by mouth every morning. 30 tablet 12 ??? omeprazole (PRILOSEC) 20 mg Capsule, Delayed Release(E.C.) Take 1 capsule by mouth 2 times daily. No current facility-administered medications on file prior to visit. C. Review of Systems: Constitutional- no fevers, no chills, no weight loss or gain, no fatigue. Neuro- positive for dizziness, no change in vision, no balance issues or recent falls. Cardiovascular- No CP, no palpitations, no angina. Respiratory- No SOB, no NIEVES, no wheeze, no cough, no sputum production. HEENT- No difficulty swallowing, no difficulty hearing, no nasal congestion, no postnasal drip. Gastrointestinal- No abdominal pain, no nausea, no GERD, no constipation, no diarrhea, no blood in stool. - No difficulty urinating, no dysuria, no urinary frequency, no urinary urgency, no incontinence, no nocturia. Musculoskeletal- No weakness, no pain at rest or with movement. Psychiatric- No depression, no anxiety, no memory loss. II. PHYSICAL EXAM: Most Recent Vitals: 10/11/18 0917 BP: 113/56 Pulse: 55 Resp: 16 Temp: 36.5 ??C (97.7 ??F) SpO2: 98% General- No acute distress, conversing without difficulty. ENT- TM clear with normal light reflex, no nasal mucosal edema, oropharynx clear. Neck- No lymphadenopathy, supple, no masses. Lungs- Clear to auscultation bilaterally without wheeze or crackles. Heart- RRR, S1, S2, no murmur, gallop or rub. Abdominal/GI- Soft, non tender, normal active bowel sounds, neg hsm or masses. Neuro- Gait w/normal stride, speed and arm swing. Extremities- No clubbing, cyanosis or edema. III. ASSESSMENT/PLAN: 78 year old male here for follow up of chronic medical issues. Overall doing well. 1. Elevated blood sugar level Last HbA1c in june was 5.9. Alfredito would like to monitor this . - Hemoglobin A1c; Future 2. Counseling regarding advanced directives - Referral for Advanced Care Planning 3. Hypertension Currently stable. No headaches. Does become dizzy at times, appears to be related to dehydration. - atenolol (TENORMIN) 50 mg Tablet; Take 0.5 tablets by mouth daily. Dispense: 45 tablet; Refill: 3 4. Acute constipation Continue mirilax. Had to cancel Olga for last month, will reschedule this. 5. Depression, unspecified depression type Discussed medication and counseling. Alfredito feels he has good control over this right now and wouldlike to hold off on either of these. 6. Vocal cord paralysis stable 7. Gastroesophageal reflux disease, esophagitis presence not specified Continue Omeprazole 20 mg daily. 8. Dizzy spells Increase fluids to 10 glasses daily. If this doesn't help will look into decreasing BP meds. Follow up in 3 months or sooner if needed. documented in this encounter Plan of Treatment Upcoming Encounters Date Type Specialty Care Team Description 10/11/2022 Office Visit Dermatology Virgilio Mckeon MD [facility] DR CHRISTIANO HENSON-DERMAT OLOGY [place], [place] [address] (Wo rk) 10/16/2022 Office Visit Otolaryngology Frank Buchanan MD [facility] OTOLARYNGOLOGMireille Smith EPT. [place], [place] [address] (Wo rk) 11/29/2022 Appointment Hematology and Oncology 11/29/2022 Office Visit Radiation Oncology Emerald Leyva APRN [facility] RADIATION ONCOLO GY [place], [place] [address] (Wo rk) Scheduled Referrals Name Type Priority Associated Diagnoses Order S chedule Referral for Outpatient Referral Routine Counseling regarding Ordered: Advanced Care advanced directives 018 Planning documented as of this encounter Visit Diagnoses Diagnosis Elevated blood sugar level Other abnormal glucose Counseling regarding advanced directives Other specified counseling Hypertension Unspecified essential hypertension Acute constipation Unspecified constipation Depression, unspecified depression type Vocal cord paralysis Paralysis of vocal cords or larynx, unsp ecified Gastroesophageal reflux disease, esophag itis presence not specified Dizzy spells Dizziness and giddiness documented in this encounter Care Teams Internal Control Consultant Relationship Specialty Start Date End Date Giorgio Cardona MD PCP - General General Internal Medicine 11/29/17 0 [facility] GENERAL [place] [address] documented as of this encounter
--- OUTSIDE RECORDS SUMMARY | 2022-10-09 16:14 | XMS_ITS | Encounter Summary ---
:1940 Author Organization [facility] [place] [address] Care Team Providers Name Role Phone Giorgio Cardona MD Primary Care Provider Encounter Details Date Type Department Care Team Description 05/13/2019 Hospital Encounter XRay at [facility] [place] [facility] Spears ([address] Jerod Funes MD breath) [facility] [id number] [place] [phone] [place] [address] Social History Tobacco Use Types Packs/Day Years Used Date Smoking Tobacco: Never Smokeless Tobacco: Never Alcohol Use Standard Drinks/Week Comments Yes 0 (1 standard drink = 0.6 oz pure alcoho l) RARE Sex Assigned at Date Recorded Not on file documented as of this encounter Medications at Time of Discharge Medication Sig Dispensed Refills Start Date End Date terazosin (HYTRIN) 2 mg Take 1 capsule by 90 capsule 3 10/11 Capsule mouth nightly. polyethylene glycol Take 17 g by mouth 0 (MIRALAX) 17 gram Powder daily. in Packet albuterol 90 Inhale 2 puffs into 1 Inhaler 0 05/13/2019 mcg/actuation HFA the lungs every 4 Aerosol hours as needed for InhalerIndications: Wheezing, Shortness Acute viral bronchitis of Breath or Cough. Use with spacer atenolol (TENORMIN) 50 Take 0.5 tablets by 45 tablet 3 09/1401/19/2020 mg TabletIndications: mouth daily. Hypertension furosemide (LASIX) 20 mg Take 1 tablet by 90 tablet 3 10/1108/19/2020 Tablet mouth daily. levothyroxine Take 1 tablet by 30 tablet 12 10/11/201810/20 (SYNTHROID) 125 mcg mouth every Tablet morning. omeprazole (PRILOSEC) 20 Take 1 capsule by 180 capsule 3 08/25/2019 mg Capsule, Delayed mouth 2 times Release(E.C.) daily. potassium chloride Take 1 tablet by 30 tablet 11 05/28/2014 08/19/2020 (K-DUR/KLOR-CON) 10 mEq mouth daily. extended release tablet documented as of this encounter Plan of Treatment Upcoming Encounters Date Type Specialty Care Team Description 10/11/2022 Office Visit Dermatology Virgilio Mckeon MD [facility] DR CHRISTIANO HENSON[facility]DERMAT OLOGY [place], [place] [address] (Wo rk) 10/16/2022 Office Visit Otolaryngology Frank Buchanan MD [facility] OTOLARYNGOLOGY D EPT. [place], [place] [address] (Wo rk) 11/29/2022 Appointment Hematology and Oncology 11/29/2022 Office Visit Radiation Oncology Emerald Leyva APRN [facility] RADIATION ONCCESAR GY [place], [place] [address] (Wo rk) documented as of this encounter Procedures Procedure Name Priority Date/Time Associated Diagnosis Comme nts XR CHEST PA AND Routine 05/13/2019 11:45 AM SOB (shortness of Results for this LATERAL EDT breath) procedure are i n the results section. documented in this encounter Results XR Chest PA & Lateral (Generic) (05/13/2019 11:45 AM EDT) Anatomical Region Laterality Modality Chest N/A Digital Radiography Specimen (Source) Anatomical Location Collection Method / Collectio n Time Received Time / Laterality Volume Impressions 05/13/2019 2:39 PM EDT Stable appearance of the chest. No acute infiltrate or congestive changes. Thank you for letting us participate in the care of this patient. For questions regarding this report, please contact e number below. ? Electronically signed by: ARIANNE NEGRO, [facility] ([phone]), at 05/13/2019 2:39 PM Narrative 05/13/2019 2:39 PM EDT EXAMINATION: XR CHEST PA AND LATERAL (GENERIC) CLINICAL HISTORY: Shortness of breath an d cough for 2 weeks ? pneumonia Dullness to percussion on right lower prasad ng base TECHNIQUE: Frontal and lateral views of the chest COMPARISON: 03/22/2017 FINDINGS: The heart size is normal. There has been a median sternotomy. 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 The chronic stef nting and slight elevation of the right hemidiaphragm is unchanged. Scarring in the lower lung camara is similar with no acute infiltrate or congestive changes i dentified. The bony structures appear to be intact except for diffuse calcificati on along the anterior longitudinal spinal ligament Procedure Note Arianne Jarrett MD - 05/13/2019Format ting of this note might be different from the original. EXAMINATION: XR CHEST PA AND LATERAL (GE NERIC) CLINICAL HISTORY: Shortness of breath an d cough for 2 weeks ? pneumonia Dullness to percussion on right lower prasad ng base TECHNIQUE: Frontal and lateral views of the chest COMPARISON: 03/22/2017 FINDINGS: The heart size is normal. There has been a median sternotomy. 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 The chronic stef nting and slight elevation of the right hemidiaphragm is unchanged. Scarring in the lower lung camara is similar with no acute infiltrate or congestive changes i dentified. The bony structures appear to be intact except for diffuse calcificati on along the anterior longitudinal spinal ligament IMPRESSION Stable appearance of the chest. No acute infiltrate or congestive changes. Thank you for letting us participate in the care of this patient. For questions regarding this report, please contact e number below. Jerdo Spears MD IMG DX ORDERABLES documented in this encounter Visit Diagnoses Diagnosis SOB (shortness of breath) Shortness of breath documented in this encounter Care Teams Account Executive Key Accounts Relationship Specialty Start Date End Date Giorgio Cardona MD PCP - General General Internal Medicine 11/29/1712/11/ 0 [facility] [place] [address] documented as of this encounter
--- OUTSIDE RECORDS SUMMARY | 2022-10-09 16:14 | XMS_ITS | Encounter Summary ---
:1940 Author Organization [facility] [place] [address] Care Team Providers Name Role Phone Giorgio Cardona MD Primary Care Provider Reason for Visit Reason Onset Date Comments Triage 12/18/2017 Encounter Details Date Type Department Care Team Description 12/18/2017 Telephone Internal Medicine at [facility] Vanessa Kang, [place] [address] Social History Tobacco Use Types Packs/Day Years Used Date Smoking Tobacco: Never Smokeless Tobacco: Never Alcohol Use Standard Drinks/Week Comments Yes 0 (1 standard drink = 0.6 oz pure alcoho l) RARE Sex Assigned at Date Recorded Not on file documented as of this encounter Miscellaneous Notes Telephone Encounter - Vanessa Kang, RN - 12/18/2017 8:42 AM EST URGENT call put through by call center Caller: patient Patient identified by name and Chief Complaint: Coughing up dark blood Onset: Last few days Objective/Assessment: Virus in his head for some time This morning - coughed up some bright red blood - in his throat Only in the morning for the past few mornings has he has noted some blood when he coughs. He also notes that he has had problems going to the bathroom without laxative. Mouth is dry - unsure if he has had blood running the back of his throat. Denies difficulty breathing Pt is anxious to know the results of his CT and Xray's of his lungs. He would like his provider to call him to discuss. Has requested an office appointment with his provider. __x___Appointment Scheduled Date: 12/21/2017 at 11:15 AM With: Dr. Cardona Note routed to: Dr. Cardona For review. documented in this encounter Plan of Treatment Upcoming Encounters Date Type Specialty Care Team Description 10/11/2022 Office Visit Dermatology Virgilio Mcekon MD [facility] DR CHRISTIANO HENSON[facility]DERMAT OLOGY [place], [place] [address] (Wo rk) 10/16/2022 Office Visit Otolaryngology Frank Buchanan MD [facility] OTOLARYNGOLOGY Sarah EPT. [place], [place] [address] (Wo rk) 11/29/2022 Appointment Hematology and Oncology 11/29/2022 Office Visit Radiation Oncology Emerald Leyva APRN [facility] RADIATION ONCOLO GY [place], [place] [address] (Wo rk) documented as of this encounter Visit Diagnoses Not on filedocumented in this encounter Care Teams Payroll Director Relationship Specialty Start Date End Date Giorgio Cardona MD PCP - General General Internal Medicine 11/29/17 0 [facility] [place] [address] documented as of this encounter
--- OUTSIDE RECORDS SUMMARY | 2022-10-09 16:14 | XMS_ITS | Encounter Summary ---
:1940 Author Organization [facility] [place] [address] Care Team Providers Name Role Phone Arabella Rob MD Primary Care Provider Encounter Details Date Type Department Care Team Description 10/24/2018 Hospital Encounter Ultrasound at [facility] Arabella Rob MD Testicular pain [facility] [address] [place], [place] GENERAL INTERNAL [address] MEDICINE [phone] [place], [place] [address] Social History Tobacco Use Types Packs/Day Years [...] (MIRALAX) 17 gram Powder daily. in Packet atenolol (TENORMIN) 50 mg Take 0.5 tablets 45 tablet 3 09/1401/19/2020 TabletIndications: by mouth daily. Hypertension furosemide (LASIX) 20 mg Take 1 tablet by 90 tablet 3 10/1108/19/2020 Tablet mouth daily. levothyroxine (SYNTHROID) Take 1 tablet by 30 tablet 12 09/1410/20/2019 125 mcg Tablet mouth every morning. omeprazole (PRILOSEC) 20 Take 1 capsule by 180 capsule 3 08/25/2019 mg Capsule, Delayed mouth 2 times Release(E.C.) daily. potassium chloride Take 1 tablet by 30 tablet 11 05/28/2014 08/19/2020 (K-DUR/KLOR-CON) 10 mEq mouth daily. extended release tablet documented as of this encounter Plan of Treatment Upcoming Encounters Date Type Specialty Care Team Description 10/11/2022 Office Visit Dermatology Virgilio Mckeon MD [facility] DR CHRISTIANO HENSON[facility]DERMAT OLOGY [place], [place] [address] (Wo rk) 10/16/2022 Office Visit Otolaryngology Frank Buchanan MD [facility] OTOLARYNGOLOGY D EPT. [place], [place] [address] (Leroy rk) 11/29/2022 Appointment Hematology and Oncology 11/29/2022 Office Visit Radiation Oncology Emerald Leyva APRN [facility] RADIATION ONCOLO GY [place], [place] [address] (Leroy rk) documented as of this encounter Procedures Procedure Name Priority Date/Time Associated Diagnosis Comme nts US SCROTUM Routine 10/24/2018 10:14 AM Testicular pain Resul ts for this EST procedure are i n the results section . documented in this encounter Results US Scrotum (10/24/2018 10:14 AM EST) Anatomical Region Laterality Modality Pelvis Ultrasound Specimen (Source) Anatomical Collection Method Collection Time Re ceived Time Location / / Volume Laterality 10/24/2018 9:48 AM EST Impressions 10/24/2018 11:27 AM EST Bilateral normal color Doppler vascular ity and normal size of the right and left testicle. Prominent rete testes bilater ally. There are bilateral epididymal head cys ts nearly symmetric in appearance. Small RIGHT sided varicocele and latera l moderate- sized right hydrocele. No evidence for testicular torsion no evid ence for intratesticular masses. ? Catherine davis MD Electronically Signed Final Report ?? 11:27 am Narrative 10/24/2018 11:27 AM EST Scrotal ? (Signed Final 10/24/2018 11:27 am) PATIENT INFO: ID #: ? [id number] ?: ??[birth year] (78 yrs) Name: ? KATLIN Rodriguez ?Visit Date: 10/24/2018 09:48 am ? RACQUEL PERFORMED BY: Performed By: ? Elisa ESTRELLA, ??Uvaldo real Attending: ?Mahad GALINDO, There se Rodriguez. Referred By: ?ARABELLA ROB Location: ? [place] SERVICE(S) PROVIDED: ??[facility] - Scrotum and Contents with Limit ed Vascular ?[id number], [id number] ??evaluation - [id number] INDICATIONS: ??testicular pain - f/u hydrocele/ectas ia COMPARISON: Ultrasound: 11/16/11 RIGHT TESTICLE: Measurement(cm) ? L: ??4.67 ? AP: ?? 2.05 ?TV: ??2.96 Vol (ml): ?14.8 Vascularity: ?Normal color Doppler vascularity Comment: ?Dilated rete testis RIGHT EPIDIDYMIS: Head: ?Epididymal cysts, largest me asuring 0.7 x 0.4 x 0.3 ?cm Body: ?Normal Tail: ?Normal Vascularity: ?? Normal RIGHT OTHER: Hydrocele: ? Moderate Varicocele: ?Visualized LEFT TESTICLE: Measurement(cm) ? L: ??4.33 ? AP: ?? 2.47 ?TV: ??3.22 Vol (ml): ?18.0 Vascularity: ?Normal color Doppler vascularity LEFT EPIDIDYMIS: Head: ?Multiple epididymal cysts, l argest measuring 0.6 x ?0.5 x 0.4 ??cm Body: ?Normal Tail: ?Normal Vascularity: ?? Normal LEFT OTHER: Hydrocele: ? Moderate Varicocele: ?Not visualized Procedure Note Catherine Tobin MD - 10/24/2018Forma tting of this note might be different from the original. Scrotal (Signed Final 10/24/2018 11:27 am) PATIENT INFO: ID #: [id number] : 38 (78 y rs) Name: KATLIN Rodriguez Visit Date: 10/24/2018 09:48 am RACQUEL PERFORMED BY: Performed By: Suzanna Pérez RDMS Attending: Catherine Tobin MD. Referred By: ARABELLA ROB Location: [place] SERVICE(S) PROVIDED: [facility] - Scrotum and Contents with Limited Vascular [id number], [id number] evaluation - [id number] INDICATIONS: testicular pain - f/u hydrocele/ectasia COMPARISON: Ultrasound: 09/27/11 RIGHT TESTICLE: Measurement(cm) L: 4.67 AP: 2.05 TV: 2. 96 Vol (ml): 14.8 Vascularity: Normal color Doppler vascu larity Comment: Dilated rete testis RIGHT EPIDIDYMIS: Head: Epididymal cysts, largest measuri ng 0.7 x 0.4 x 0.3 cm Body: Normal Tail: Normal Vascularity: Normal RIGHT OTHER: Hydrocele: Moderate Varicocele: Visualized LEFT TESTICLE: Measurement(cm) L: 4.33 AP: 2.47 TV: 3. 22 Vol (ml): 18.0 Vascularity: Normal color Doppler vascu larity LEFT EPIDIDYMIS: Head: Multiple epididymal cysts, larges t measuring 0.6 x 0.5 x 0.4 cm Body: Normal Tail: Normal Vascularity: Normal LEFT OTHER: Hydrocele: Moderate Varicocele: Not visualized IMPRESSION Bilateral normal color Doppler vascular ity and normal size of the right and left testicle. Prominent rete testes bilater ally. There are bilateral epididymal head cys ts nearly symmetric in appearance. Small RIGHT sided varicocele and latera l moderate- sized right hydrocele. No evidence for testicular torsion no evid ence for intratesticular masses. Catherine Tobin MD Electronically Signed Final Report 10/24 11:27 am Arabella Rob MD IMG US GEN ORDERABLES documented in this encounter Visit Diagnoses Diagnosis Testicular pain Unspecified disorder of male genital org ans documented in this encounter Care Teams Welder Pipe Making Relationship Specialty Start Date End Date Arabella Rob MD PCP - General General Internal Medicine 11/29/17 0 [facility] [place] [address] documented as of this encounter
--- OUTSIDE RECORDS SUMMARY | 2022-10-09 16:14 | XMS_ITS | Encounter Summary ---
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 [address] [place], [place] RADIATION ONCOL OGY [address] [place], [place] [phone] (Wo rk) Social History Tobacco Use Types Packs/Day Years Used Date Smoking Tobacco: Never Smokeless Tobacco: Never Alcohol Use Standard Drinks/Week Comments Yes 0 (1 standard drink = 0.6 oz pure alcoho l) RARE Sex Assigned at Date Recorded Not on file documented as of this encounter Last Filed Vital Signs Vital Sign Reading Time Taken Comments Blood Pressure 139/57 07/18/2018 10:58 AM EDT Pulse 53 07/18/2018 10:58 AM EDT Temperature 36.8 ??C (98.2 ??F) 07/18/2018 10:58 AM EDT Respiratory Rate 18 07/18/2018 10:58 AM EDT Oxygen Saturation 97% 07/18/2018 10:58 AM EDT Inhaled Oxygen Concentration - - Weight 64.9 kg (143 lb) 07/18/2018 10:58 AM EDT Height 152.4 cm (5') 07/18/2018 10:58 AM EDT Body Mass Index 27.93 07/18/2018 10:58 AM EDT documented in this encounter Patient Instructions Patient InstructionsPaBecka richard APRN - 07/18/2018 11:15 AM EDT Laboratory Studies: date PSA Testosterone 07/11/2018 0.18 6.29 04/20/2017 0.20 04/06/2016 0.20 [...] 5.1 12/12/05 4.7 09/2005 4.4 09/2004 3.8 Vitals Office Visit from 07/18/2018 in Radiation Oncology at [facility] Weight 64.9 kg (143 lb) Height 152.4 cm (5') BSA (Calculated - sq m) 1.66 sq meters BMI (Calculated) 27.92 Temp 36.8 ??C (98.2 ??F) Temp src Oral Heart Rate 53 Heart Rate Source NIBP Resp 18 BP 139/57 BP Location Left arm Patient Position Sitting SpO2 97 % documented in this encounter Progress Notes Becka Dean APRN - 07/18/2018 11:15 AM EDT Patient ID: Alfredito Mina is a 78 y.o. male.who is in radiation oncology clinic [...] were taken and the specimen reported in [facility] pathology under session #[id number] prostate: The right lobe apex, mid, and base negative; the left apex was 3 + 3 in 40% of one core; the left mid was 3 + 4 in 50% of one core; and the left base showed a 3 + 4 in 5% in one of two cores. This information was reviewed at [facility] on October 19, 2006, and the report paralleled that given by the [facility] institution. The [facility] session number was [id number]. The patient was then seen by Dr. Mixon on December 26, 2005, and after review, his note indicates an IPS of 9/35. He had no difficulties with erectile dysfunction. His physical examination revealed a 30-gram prostate without nodularity, and the gland was smooth. With a PSA indicated of 5.4, a Anna Maria score of 4 + 3 = 7/10, staged as a T1c N0, it was considered intermediate risk with a possibility oforgan-confined disease of about 50%, seminal vesicle 8%, and lymph nodes 3%. The [facility] five-year survival review was indicated at [...] and Biopsy 09/19/2006 Volume in cc 56 Anna Maria grade/score a+b=c 4+3=7 Total Cores 12 cores Positive cores 5 positive cores Bone Scan at Presentation -negative Date of Bone Scan 12/06/2006 Prostate confined +yes OLGA -negative SV -negative Regular Nodes -negative Distant Mets -negative Date of MRI 11/23/2006 Urinary Continence at Presentation normal Primary Therapy EBRT EBRT Date Began 02/11/2007 ERBT Total Dose (Gy) 79.2 Treatment Fractions 44 Elapsed Date 04/12/2007 Concurrent ADT -negative Histologic Type Adenocarcinoma Post Primary Therapy - Sukumar Date 07/11/2018 Post Primary Therapy - Sukumar PSA 0.18 Cancer history: : 1. Adenocarcinoma of the prostate. H2mNaAm, Sofy 4+3, left lobe involved. OLGA (-), [...] chest--no evidence of recurrent or metastatic disease. --- Skin cancer--squamous cell--07/2013 ---skin cancer basal [...] MONITORING, SETUP performed by FRANK MAC at [facility] MAIN OR ??? PRO COLONOSCOPY, REMV LESN, SNARE 01/06/2013 COLONOSCOPY, POLYPECTOMY, REMOVAL LESION BY SNARE performed by Josh Jeffery MD at [facility] ENDOSCOPY ??? PRO REPAIR RECURR INGUIN KIRAN, REDUCIBL 03/10/2011 HERNIA REPAIR, INGUINAL, RECURRENT performed by NOREEN BOWIE at [facility] OR ??? PRO THYROIDECTOMY=SUBSTERNAL, TRANSCERV 11/30/2011 THYROIDECTOMY, INCL. SUBSTERNAL, CERVICAL APPROACH performed by FRANK MAC at [facility] OR ??? PRO TOTAL KNEE ARTHROPLASTY 06/19/2012 @TOTAL KNEE ARTHROPLASTY performed by ADAM CARRERO at [facility] OR ??? ROTATOR CUFF REPAIR 2013 ??? UMBILICAL HERNIA REPAIR ??? UPPER GI ENDOSCOPY, EXAM 01/29/2012 UPPER GI ENDOSCOPY performed by VICKI SON at [facility] ENDOSCOPY Allergies Allergen Reactions ??? Cyclobenzaprine Urinary retention, xerostomia ??? Lactose Other (See Comments) Sneezing Medications 07/18/18 1117 Medication Sig Taking? polyethylene glycol (MIRALAX) 17 gram Powder in Packet Take 17 g by mouth daily. Yes omeprazole (PRILOSEC) 20 mg Capsule, Delayed Release(E.C.) Take 1 capsule by mouth 2 times daily. Yes potassium chloride (K-DUR/KLOR-CON) 10 mEq extended release tablet Take 1 tablet by mouth daily. Yes atenolol (TENORMIN) 50 mg tablet TAKE ONE-HALF TABLET BY MOUTH EVERY DAY Yes furosemide (LASIX) 20 mg tablet Take 1 tablet by mouth daily. Yes terazosin (HYTRIN) 2 mg capsule Take 1 capsule by mouth nightly. Yes levothyroxine (SYNTHROID) 125 mcg tablet Take 1 tablet by mouth every morning. Yes Review and update of social history today Family History: Mother 2012 at age 105--she had asthma, osteoporosis. Father at age 55, smoked too much, heart problems. Social History: [place]. 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 Single. Five children and sevengrandkids. 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 Has been spending vora in [place]. Used to play basketball. No alcohol. He is on friendly terms with his ex- and she assists him as needed. Advance Directives: Completed. See advance care planning note. Interim History: Mr Mina reports that he is doing well at this time. Since he was seen in radiation oncology a year ago he has been generally well with no new health issues. 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 He reports that he feels better when he works. He did spend the winter in [place] where he has a home. He denies urinary problems at this time. His IPSS score is 4. He is reports being pleased with his overall urinary status. He does continue with the terazosin and has found that if he misses taking it that he has increased discomfort with voiding. He has no dysuria, no hematuria and no incontinence. International Prostate Symptom Score Total Score__4_ 0 1 2 3 4 5 Not at all Less than one time in five Less than half of the time About half of the time More than half of the time Almost always Incomplete emptying X frequency X due to fluid intake intermittency X urgency x Weak stream X Flow resistance X Not at all Every eight hours Every four hours Every three hours Every 2 hours Every hour nocturia x His bowels have been moving regularly one or twice a day. He prevents constipation with the use of miralax which has been very effective. He denies BRB rectally. He denies, melena, constipation and diarrhea. He denies abdominal discomfort. Q - Expanded Prostate Cancer Index Composite For Clinical Practice (Epic-Cp) ? Question 07/18/2018 12:33 PM EDT - Filled by Becka Dean APRN ? Urinary function problem Small problem ? Urinary control Total control ? # of pads used per day None ? Urinary dripping/leakage problem No problem ? 5. How big a problem, if any, has each of the following been for you? Pain or burning with urination No problem ? Weak urine stream/incomplete bladder emptying No problem ? Need to urinate frequently Moderate problem ? 6. How big a problem, if any, has each of the following been for you? Rectal pain or urgency of bowel movements No problem ? Increased frequency of your bowel movements No problem ? Overall problems with your bowel movements No problem ? Bloody stools No problem ? Ability to reach orgasm Good ? Quality of your erections Firm enough for masturbation and foreplay ? Problem with sexual function or lack of it Moderate problem ? 10. How big a problem, if any, has each of the following been for you? Hot flashes or breast tenderness/enlargement No problem ? Feeling depressed Big problem ? Lack of energy No problem ? Urinary Incontinence Symptom Score (range: 0 - 12) 0 ? Urinary Irritation/Obstructive Symptom Score (range: 0 - 12) 3 ? Bowel Symptom Score (range: 0 - 16) 0 ? Vitality/Hormonal Symptom Score (range: 0 - 12) 4 ? Overall Prostate Cancer QOL Score (range: 0 - 60) 7 ? He reports that his respiratory symptoms are stable. He denies shortness of breath, no dyspnea, + occ cough, no hemoptysis. He had a follow up Ct of the chest last November which was negative for lung cancer recurrence. Review of Systems Constitutional: Negative for activity change, appetite change, chills, fatigue, fever and unexpectedweight change. 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 Negative for nosebleeds. 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 Negative for visual disturbance. Respiratory: Negative. Negative for cough, chest tightness, shortness of breath and wheezing. Cardiovascular: Positive for leg swelling. Negative for chest pain. Pedal edema at end of day--none in am Gastrointestinal: Negative for abdominal distention, abdominal pain, anal bleeding, blood in stool, constipation, diarrhea, nausea and rectal pain. See interim history Using miralax and that is working very well Genitourinary: Negative for decreased urine volume, difficulty urinating, dysuria, enuresis, frequency, hematuria, testicular pain and urgency. See IPSS and interim history Musculoskeletal: Positive for arthralgias. Negative for neck stiffness. Neurological: Negative. Negative for dizziness, weakness, light-headedness and headaches. Hematological: Negative. Psychiatric/Behavioral: Negative. Negative for sleep disturbance. The patient is not nervous/anxious. Mood positive Some forgetfulness Some difficulty sleeping due to family discord/problems KPS: 100 Vitals Office Visit from 07/18/2018 in Radiation Oncology at [facility] Weight 64.9 kg (143 lb) Height 152.4 cm (5') BSA (Calculated - sq m) 1.66 sq meters BMI (Calculated) 27.92 Temp 36.8 ??C (98.2 ??F) Temp src Oral Heart Rate 53 Heart Rate Source NIBP Resp 18 BP 139/57 BP Location Left arm Patient Position Sitting SpO2 97 % Objective: Physical Exam Constitutional: He is oriented to person, place, and time. Vital signs are normal. He appears well-developed and well-nourished. He does not appear ill. No distress. HENT: Head: Normocephalic and atraumatic. Voice is hoarse--not new Eyes: Conjunctivae and EOM are normal. Right eye exhibits no discharge. Left eye exhibits no discharge. No scleral icterus. Neck: Normal range of motion. Neck supple. No rigidity. No edema, no erythema and normal [...] Vitals reviewed. Laboratory Studies: date PSA Testosterone 07/11/2018 0.18 6.29 04/20/2017 0.20 04/06/2016 0.20 [...] Plan: Mr Mina is a very pleasant 78 year old man with Adenocarcinoma of the prostate. [id number], Sofy 4+3, left lobe involved. OLGA (-), PSA of 5.4 Mr Mina was treated with external beam radiation under RTOG protocol and received 79.2 Gy completed on 04/12/2007 with no concurrent ADT. Mr Mina PSA is at a new sukumar of 0.18 indicating excellent response to treatment with JOSUE and no adverse late effects of radiation. He continues followup with other providers for his other co-morbidities and is seen regularly by his PCP. Patient is to return to radiation oncology in one year for repeat PSA,testosterone and clinical evaluation. He is to call if he has questions or concerns in the meantime. documented in this encounter Plan of Treatment Upcoming Encounters Date Type Specialty Care Team Description 10/11/2022 Office Visit Dermatology Virgilio Mckeon MD [facility] DR CHRISTIANO HENSON-DERMAT OLOGY [place], [place] [address] (Wo rk) 10/16/2022 Office Visit Otolaryngology Frank Buchanan MD [facility] OTOLARYNGOLOGY D EPT. [place], [place] [address] (Wo rk) 11/29/2022 Appointment Hematology and Oncology 11/29/2022 Office Visit Radiation Oncology Emerald Leyva APRN [facility] RADIATION ONCOLO GY [place], [place] [address] (Wo rk) documented as of this encounter Visit Diagnoses Diagnosis Malignant neoplasm of prostate documented in this encounter Care Teams Terra Cotta Roofer Relationship Specialty Start Date End Date Giorgio Cardona MD PCP - General General Internal Medicine 11/29/17 0 [facility] [place] [address] documented as of this encounter
--- OUTSIDE RECORDS SUMMARY | 2022-10-09 16:14 | XMS_ITS | Encounter Summary ---
:1940 Author Organization [facility] [place] [address] Care Team Providers Name Role Phone Unavailable Primary Care Provider Unavailable Encounter Details Date Type Department Care Team Description 10/01/2017 Telephone Thoracic Surgery at [facility] Gil [facility] [place] [address] Social History Tobacco Use Types Packs/Day Years Used Date Smoking Tobacco: Never Smokeless Tobacco: Never Alcohol Use Standard Drinks/Week Comments Yes 0 (1 standard drink = 0.6 oz pure alcoho l) RARE Sex Assigned at Date Recorded Not on file documented as of this encounter Miscellaneous Notes Telephone Encounter - Edelmira Coffey - 10/01/2017 1:36 PM EST Called patient left voice message. Wanted to schedule patient for his follow up with Dr. Cote also ct without contrast. documented in this encounter Plan of Treatment Upcoming Encounters Date Type Specialty Care Team Description 10/11/2022 Office Visit Dermatology Virgilio Mckeon MD [facility] DR CHRISTIANO HENSON[place]DERMAT [place], [place] [address] (Wo rk) 10/16/2022 Office Visit Otolaryngology Frank Buchanan MD [facility] OTOLARYNGOLOGY Sarah EPT. [place], [place] [address] (Wo sriram) 11/29/2022 Appointment Hematology and Oncology 11/29/2022 Office Visit Radiation Oncology Emerald Leyva, [employer] [facility] RADIATION ONCOLO GY [place], [place] [address] (Leroy bhatia) documented as of this encounter Visit Diagnoses Not on filedocumented in this encounter
--- OUTSIDE RECORDS SUMMARY | 2022-10-09 16:14 | XMS_ITS | Encounter Summary ---
:1940 Author Organization [facility] [place] [address] Care Team Providers Name Role Phone Giorgio Cardona MD Primary Care Provider Encounter Details Date Type Department Care Team Description 07/09/2018 Orders Only Radiation Oncology at [facility] neoplasm of [facility] Rosie RN [address] [phone] Social History Tobacco Use Types Packs/Day Years Used Date Smoking Tobacco: Never Smokeless Tobacco: Never Alcohol Use Standard Drinks/Week Comments Yes 0 (1 standard drink = 0.6 oz pure alcoho l) RARE Sex Assigned at Date Recorded Not on file documented as of this encounter Miscellaneous Notes Addendum Note - Shalnoda Hinton RN - 07/12/2018 1:52 PM EDT Addended by: SHALONDA HINTON on: 07/12/2018 01:52 PM Modules accepted: Orders documented in this encounter Plan of Treatment Upcoming Encounters Date Type Specialty Care Team Description 10/11/2022 Office Visit Dermatology Virgilio Mckeon MD [facility] DR CHRISTIANO HENSON-DERMAT [place], [place] [address] (Wo rk) 10/16/2022 Office Visit Otolaryngology Frank Buchanan MD [facility] OTOLARYNGOLOGY Sarah EPT. [place], [place] [address] (Wo rk) 11/29/2022 Appointment Hematology and Oncology 11/29/2022 Office Visit Radiation Oncology Emerald Leyva APRN [facility] RADIATION ONCOLO GY [place], [place] [address] (Wo rk) documented as of this encounter Visit Diagnoses Diagnosis Malignant neoplasm of prostate documented in this encounter Care Teams Process Planner Relationship Specialty Start Date End Date Giorgio Cardona MD PCP - General General Internal Medicine 11/29/17 0 [facility] [place] [address] documented as of this encounter
--- OUTSIDE RECORDS SUMMARY | 2022-10-09 16:14 | XMS_ITS | Encounter Summary ---
:1940 Author Organization [facility] [place] [address] Care Team Providers Name Role Phone Giorgio Cardona MD Primary Care Provider Encounter Details Date Type Department Care Team Description 08/15/2018 Hospital Encounter XRay at [facility] Giorgio Cardona, Acute left ankle [address] [facility] [address] GALINDO pain [facility]3] [id number] [place] [phone] GENERAL INTERNAL MEDICINE [place], [place] [address] Social History Tobacco Use Types Packs/Day Years Used Date Smoking Tobacco: Never Smokeless Tobacco: Never Alcohol Use Standard Drinks/Week Comments Yes 0 (1 standard drink = 0.6 oz pure alcoho l) RARE Sex Assigned at Date Recorded Not on file documented as of this encounter Medications at Time of Discharge Medication Sig Dispensed Refills Start Date End Date polyethylene glycol Take 17 g by mouth 0 (MIRALAX) 17 gram Powder daily. in Packet omeprazole (PRILOSEC) 20 Take 1 capsule by 0 06/1310/11/2018 mg Capsule, Delayed mouth 2 times Release(E.C.) daily. potassium chloride Take 1 tablet by 30 tablet 11 05/28/2014 08/19/2020 (K-DUR/KLOR-CON) 10 mEq mouth daily. extended release tablet atenolol (TENORMIN) 50 mg TAKE ONE-HALF 45 tablet 3 013 10/11/2018 tabletIndications: TABLET BY MOUTH Hypertension EVERY DAY furosemide (LASIX) 20 mg Take 1 tablet by 30 tablet 0 07/0910/11/2018 tablet mouth daily. terazosin (HYTRIN) 2 mg Take 1 capsule by 0 07/0910/11/2018 capsule mouth nightly. levothyroxine (SYNTHROID) Take 1 tablet by 30 tablet 12 12/1310/11/2018 125 mcg tablet mouth every morning. documented as of this encounter Plan of Treatment Upcoming Encounters Date Type Specialty Care Team Description 10/11/2022 Office Visit Dermatology Virgilio Mckeon MD [facility] DR CHRISTIANO HENSON-DERMAT OLOGY [place], [place] [address] (Wo rk) 10/16/2022 Office Visit Otolaryngology Frank Buchanan MD [facility] OTOLARYNGOLOGY D EPT. [place], [place] [address] (Wo rk) 11/29/2022 Appointment Hematology and Oncology 11/29/2022 Office Visit Radiation Oncology Emerald Leyva APRN [facility] RADIATION ONCOLO GY [place], [place] [address] (Wo rk) documented as of this encounter Procedures Procedure Name Priority Date/Time Associated Diagnosis Comme nts XR ANKLE MIN 3 Routine 08/15/2018 10:07 AM Acute left ankle Re sults for this VIEWS LEFT EDT pain procedure are i n the results section. documented in this encounter Results XR Ankle Min 3 views Left (Generic) (08/15/2018 10:07 AM EDT) Anatomical Region Laterality Modality Ankle Left Digital Radiography Specimen (Source) Anatomical Location Collection Method / Collectio n Time Received Time / Laterality Volume Impressions 08/15/2018 10:51 AM EDT No fracture Narrative 08/15/2018 10:51 AM EDT EXAMINATION: XR ANKLE MIN 3 VIEWS LEFT (GENERIC) CLINICAL HISTORY: fell when hit in head with ladders and now presents with erythema and edema in L ankle and foot. TECHNIQUE: 3 views COMPARISON: None FINDINGS: The mortise joint is intact. Mild diffus e soft tissue swelling around the ankle but no fracture or dislocation. No joint effusion. Vascular calcifications anterior to the ankle joint. Procedure Note She Dunbar MD - 08/15/2018Formattin g of this note might be different from the original. EXAMINATION: XR ANKLE MIN 3 VIEWS LEFT ( GENERIC) CLINICAL HISTORY: fell when hit in head with ladders and now presents with erythema and edema in L ankle and foot. TECHNIQUE: 3 views COMPARISON: None FINDINGS: The mortise joint is intact. Mild diffus e soft tissue swelling around the ankle but no fracture or dislocation. No joint effusion. Vascular calcifications anterior to the ankle joint. IMPRESSION No fracture Giorgio Cardona MD IMG DX ORDERABLES documented in this encounter Visit Diagnoses Diagnosis Acute left ankle pain documented in this encounter Care Teams Ethics Officer Relationship Specialty Start Date End Date Giorgio Cardona MD PCP - General General Internal Medicine 11/29/17 0 [facility] GENERAL [place] [address] documented as of this encounter
--- OUTSIDE RECORDS SUMMARY | 2022-10-09 16:14 | XMS_ITS | Encounter Summary ---
:1940 Author Organization [facility] [place] [address] Care Team Providers Name Role Phone Giorgio Cardona MD Primary Care Provider Reason for Referral Consultation (Routine) - Closed Specialty Diagnoses / Procedures Referred By Contact Refer red To Contact Gastroenterology Diagnoses Pseudopolyposis of colon, unspecified complication status, unspecified part of colon Giorgio Cardona MD Gordon, Stuart R, MD [facility] [place] [address] [place] [address] Fax: Referral ID Status Reason Start Date Expiration Date Visits V isits Requested Authorized [id number] Closed Test Only 07/11/2018 07/11/2019 1 1 iagnostic Test (Routine) - Closed Specialty Diagnoses / Procedures Referred By Contact Refer red To Contact Cardiology Diagnoses S/P mitral valve repair Giorgio Cardona MD [facility] Non-Inv Card Lab Procedures Echocardiogram Transthoracic(Leb) [facility] [place], [place] [phone] [place] [address] Referral ID Status Reason Start Date Expiration Date Visits V isits Requested Authorized [id number] Closed Specialty 07/11/2018 07/11/2019 1 1 Service Requested Reason for Visit Reason Comments Annual Wellness Visit Encounter Details Date Type Department Care Team Description 07/11/2018 Office Visit Internal Medicine Giorgio Cardona, Dyslipi demia; at [facility] Gastroesophageal reflux disease without esophagitis; [facility] Essential hypertension; [facility] Impaired fasting glucose; [place], [place] GENERAL INTERNAL Malignant n eoplasm of hilus of lung, unspecified laterality; [id number] MEDICINE S/P mitral valve repair; [phone] [place], [place] [address] Primary osteoarthritis involving multipl e joints; [phone] Pancreatic cyst ; (Work) Prostate cancer; [phone] Vocal cord para lysis; (Fax) Pseudopolyposis of colon, unspecified complication status, unspecified part of colon; Anemia, unspeci fied type Social History Tobacco Use Types Packs/Day Years Used Date Smoking Tobacco: Never Smokeless Tobacco: Never Alcohol Use Standard Drinks/Week Comments Yes 0 (1 standard drink = 0.6 oz pure alcoho l) RARE Sex Assigned at Date Recorded Not on file documented as of this encounter Last Filed Vital Signs Vital Sign Reading Time Taken Comments Blood Pressure 124/58 07/11/2018 10:28 AM EDT Pulse 54 07/11/2018 10:28 AM EDT Temperature 36.3 ??C (97.4 ??F) 07/11/2018 10:28 AM EDT Respiratory Rate 16 07/11/2018 10:28 AM EDT Oxygen Saturation 96% 07/11/2018 10:28 AM EDT Inhaled Oxygen Concentration - - Weight 65.2 kg (143 lb 12.8 oz) 07/11/2018 10:28 AM EDT Height 163.5 cm (5' 4.37) 07/11/2018 10:28 AM EDT Body Mass Index 24.4 07/11/2018 10:28 AM EDT documented in this encounter Patient Instructions Patient InstructionsGiorgio Cardona MD - 07/11/2018 11:00 AM EDT Needs advanced directive Bring family member to next appointment New shingles vaccine documented in this encounter Progress Notes Christa Mckeon, API DEVELOPER - 07/11/2018 11:00 AM EDT Annual Assessment of Medical Issues - Annual Wellness Visit History of Presenting Illness: Mr. Alfredito Mina, a 78 y.o. male, presents today for a Medicare Annual Wellness Visit. Self assessment of Health Status: (including patient concerns) Still working considerably Fell at home - hurt his knee - left knee - not limping but hurts - no significant pain. Damp weather is problematic for the patient Jammed finger - but healing accordingly Hands and skin are thin - particularly when hits self Not on aspirin - Things are OK at home - not speaking with anyone in the family. This is why working all the time. Family problems with land Mood - it is ok generally - declines other medications for medications. Can handle it Coffee problematic he says Last CT scan 11/29/2017 of his lung Forgets a few things here and there - but then remembers things. Other providers: ace everett Suppliers: n/a Home Safety: (Co2 and smoke detectors) yes Hearing difficulty: no Memory issues (mini-cog score ): no Advanced directives: no Health Risk Assessment (HRA): (all responses reviewed including blank responses) Annual Wellness Visit Responses: myD-H Annual Wellness Visit Responses 07/11/2018 Health in general Good Quality of life Good Physical health Fair Mental health Fair Satisfaction with social activities Very Good Ability to carry out social activities Very Good Ability to carry out physical activities Mostly Bothered by emotional problems Often Rate of fatigue Mild Rate of pain 1 PROMIS-10 Physical Health Score 44.9 PROMIS-10 Mental Health Score 41.1 Hearing Loss Yes Activity - low level (Bathing, Dressing, Eating, Mobility, Using toilet, Grooming) No, I do not havedifficulty with these activities Activity - high level (Laundry, Housekeeping, Banking, Shopping, Use phone, Food Prep, Transportation, Taking meds) Doing laundry and housekeeping, Banking, Shopping, Using the telephone, Food preparation, Transportation IADLS - Help I get all the help I need Fallen in last year Yes Difficulties with balance or walking Yes Injured as a result of a fall Yes Walkways free of cords/clutter No Smoke detectors in house Yes Difficulty walking 1/4 mile No or some difficulties Difficulty climbing a flight of stairs No or some difficulties Involuntarily lost > 10 pounds No Feel everything is an effort/could not get going Rarely or sometimes (2 times or less/week) Physical activity level Regular physical activity (at least 2-4 hours per week) Disability Score (FiND) 0 (Robust) Little interest or pleasure Not at all Down, depressed, hopeless Several days Trouble sleeping - Tired or no energy - Poor appetite or overeating - Feeling like a failure - Trouble concentrating (newspaper) - Moving or speaking slowly - Would be better off - Total PHQ-9 - Feel lonely or isolated Rarely Have money for everyday living Sometimes Confident in managing health problems Somewhat confident Confident filling medical forms Quite a bit Medication finances No Smoking Status Never Drinking frequency Never Drinks per day 0 drinks 6+ drinks on one occasion Never Audit-C Score 0 (No Risk) 10 mins of vigorous physical activity 7 days Time spent on vigorous physical activity 90 minutes or more 10 mins of moderate physical activity 7 days Time spent on moderate physical activity 90 minutes or more Eat Fruit 1 - 4 times per month Eat Vegetables 3 - 5 times per week Wear Seatbelt Always Tooth or Mouth Problems No Urinary Incontinence Yes Sexually active No Live Alone No School Graduated from high school or GED Employment Status Currently working Hours per week 40 or more hours # People Supported 2 Who is taking survey I am (patient) Past/Family/Social History/Medications and Allergies reviewed and/or documented below. Patient reported measures: Pain:Decline to answer/Don't know Physical Health:Decline to answer/Don't know Fall: PHQ-9 QUESTIONNAIRE SCORE ONLY (AMB) 03/22/2017 PHQ - 9 Score (Clinic) 2 (Minimal Depression) PHQ - 9 Score (Patient) - Some recent data might be hidden Wt Readings from Last 3 Encounters: 07/11/18 65.2 kg (143 lb 12.8 oz) 12/20/17 66 kg (145 lb 7.2 oz) 11/29/17 66.4 kg (146 lb 6.4 oz) Hearing assessment (whisper test, rubbing fingers) PHQ-9 QUESTIONNAIRE SCORE ONLY (AMB) 03/22/2017 PHQ - 9 Score (Clinic) 2 (Minimal Depression) PHQ - 9 Score (Patient) [...] 10mm lesion --recommended MRi Oct 2011 ??? Acute constipation ??? Dyslipidemia --02/2009: HDL-56, TG-68, LDL-81, TC-146. [...] features. 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 [id number]; KRAS negative, EGFR negative --09/2010: CT scan - normal --02/2011: CT scan --09/2011: CT scan - negative annual CT's afterwards Geriatric Functional Status Instrumental ADLs Can perform Cannot Comments Meals/Cooking x Laundry x Cleaning x Finances x Shopping x Transportation x Telephone x Basic ADLS Can perform Cannot Comments Bathing x Walking x Transferring x Dressing x Feeding x Toileting x Geriatric Screens Yes No comments Medications Reviewed x Incontinence - Urine x Incontinence - Feces x Falls x Driving x In Home Services x Lifeline x Assist Device x ( ) stefania ( ) jonathon Depression Risk x Outpatient Encounter Prescriptions as of 07/11/2018 Medication Sig Dispense Refill ??? polyethylene glycol [...] capsule by mouth 2 times daily. No facility-administered encounter medications on file as of 07/11/2018. Social History Social History ??? Marital status: Single Spouse name: N/A ??? Number of children: N/A ??? Years of education: N/A Social History Main Topics ??? Smoking status: Never Smoker ??? Smokeless tobacco: Never Used ??? Alcohol use Yes Comment: RARE ??? Drug use: No ??? Sexual activity: Not Asked Other Topics Concern ??? None Social History Narrative family history includes Asthma in his mother; Heart Failure in his father; Thyroid Disease in his paternal grandmother. Review of Systems: Constitutional - (- ) fevers (- ) chills, sweats (- ) fatigue Cardiovascular - ( -)chest pain ( -)palpitations Integument/Breast - (- ) lesions, lumps, nodules Respiratory - (- )SOB, NIEVES ( -)cough, [...] or nodules ( -) nocturia, dysuria, polyuria Musculoskeletal - ( -) pain at rest or with movement Objective Vitals: 07/11/18 1028 BP: 124/58 BP Location (NBP): Right arm Patient Position: Sitting BP Cuff Sizes: Adult (25-34 cm) Pulse: 54 Resp: 16 Temp: 36.3 ??C (97.4 ??F) TempSrc: Oral SpO2: 96% Weight: 65.2 kg (143 lb 12.8 oz) Height: 163.5 cm (5' 4.37) Gen -no acute distress. Alert, responsive and comfortable HEENT - EOMI, PERRL, TMs and canals normal, oropharynx moist without lesions Neck - Full range of motion, no bruits, no lymphadenopathy or thyromegaly. No increase in JVD. Lungs - No wheezes, no crackles. Otherwise, clear to ascultation and percussion Chest/Back - No spinal tenderness. No visible deformities or scoliosis appreciated. Heart - RRR, S1,S2, soft murmur, gallop or rub Abdomen - Soft, nontender, no hepatosplenomegaly, masses or distention, normal active bowel sounds Extremities - No clubbing, cyanosis or edema x 4 Skin - No rashes, lesions, plaques, nodules Neurological - Grossly normal Gait: grossly intact with normal stride length, speed, and arm swing SLUMS Assessment/Plan: Mr. Mina was seen today for a Medicare Annual Wellness Visit. In conclusion, we discussed the followin. SCREENING SCHEDULE & IMMUNIZATIONS - Health Maintenance Topic Date Due ??? Zoster vaccine (1 of 2) 1988 ??? Advance Directive 1993 ??? Influenza (Flu) vaccine (1 of 1 - Influenza Standard Series) 07/13/2018 ??? Tetanus vaccine 05/08/2024 ??? Pneumo vaccine (65+) Completed ??? Tdap adult Completed 2. RISK FACTORS (including any positives from HRA) and 3. PERSONALIZED HEALTH ADVICE - [x] A copy of the Risk Factors and Personalized Health Advice and Health Maintenance List was copiedto the patient's After Visit Summary. Post-nasal drip/allergic rhinitis? # Hoarseness Discussed today - conservative management. 2. Hyperthyroidism s/p radioactive iodine? 3. 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 --continue to monitor biochemical parameters ?? 4. DJD Knee? -- Very pleased with results. ?? 5. S/p Mitral Regurgitation? No symptoms - all stable. repeat 6. Depression/Insomnia? --declines other medications 7. Lung Cancer? --recent CT scan 11/2017 satisfactory. 8. Pancreatic Lesion? --last MRI was [...] new shingles vaccine, colonoscopy for polyps - ordered. Daughter would make decision (Erin). 15. Memory Problem SLUMS - suggest bring another person to visit. Will need new SLUMS and hx Patient Instructions: Patient Instructions Needs advanced directive Bring family member to next appointment New shingles vaccine I counselled the patient on the above [...] my nurses, letter, or myD. Next Appointment: Return in about 3 months (around 10/11/2018) for renae - memory check; 1 year awv. documented in this encounter Plan of Treatment Upcoming Encounters Date Type Specialty Care Team Description 10/11/2022 Office Visit Dermatology Virgilio Mckeon MD [facility] [address] [place]LOG[place], [place] [address] (Wo rk) 10/16/2022 Office Visit Otolaryngology Frank Buchanan MD [facility] ER OTOLARYNGOLOGY Sarah EPT. [place], [place] [address] (Wo rk) 11/29/2022 Appointment Hematology and Oncology 11/29/2022 Office Visit Radiation Oncology Emerald Leyva APRN [facility] ER RADIATION ONCOLO GY [place], [place] [address] ( rk) Scheduled Referrals Name Type Priority Associated Diagnoses Order S chedule Referral to Outpatient Routine Pseudopolyposis of Ordered: Gastroenterology Referral colon, unspecified 07/11 complication status, unspecified part of colon documented as of this encounter Results ECHOCARDIOGRAM COMPLETE (08/15/2018 2:07 PM EDT) P athologist Signature EF 67 HEARTLAB SYSTEM Anatomical Region Laterality Modality Other Specimen (Source) Anatomical Location Collection Method / Collectio n Time Received Time / Laterality Volume 08/15/2018 Narrative 08/15/2018 2:45 PM EDT Procedure: ?Transthoracic Echocardiogram Patient: ?RACQUEL Rodriguez ?? (Age): 1940(78y) Med Rec#: ? [id number] ?Sex: ?M ? Site Loc: ? [facility] ?Ht / Wt: ??170(cm)/68(kg) Pt. Loc: ?Echo Lab ?BSA: ?1.79 Study Date: ?? 08/15/2018 ?Pt. Type: Outpatient Tape: ? Referring: SUNIL Reading: Tom Hammond ([id number]) Head End Desizing Machine Operator: Génesis Ruby [facility] Interpreting Fellow: RAEANN CAMERON ([phone]) Diagnosis: *Other nonrheumatic mitral valve disord ers (I34.8) Indication: ?? S/P MV repair BP: ? 113/44 HR: ? 59 SUMMARY: 1. The left ventricular chamber size is normal with basal septal hypertrophy. ??There is normal global le ft ventricular systolic function with an ejection fraction by biplane Sim pson's method of 67%. ??There are no left ventricular segmental wall motio n abnormalities. 2. Normal right ventricle structure and function. 3. The mitral valve leaflets appear norm al. ??There is a 29 mm mitral annulus ring, implanted 11/25/2004. ??The re is mild (1+/4+) mitral regurgitation present. ??The mean gradie nt across the mitral valve is 3 mmHg at a heart rate 55 bpm. ??Other aden ves are also without hemodynamically significant disease. 4. Moderate left atrial enlargement. 5. Compared to previous study dated 03/08, LA size is larger. Findings ? : Study Quality: ? Adequate Left Ventricle: ? The left ventricul ar chamber size is normal. ?Basal septal hypertrophy is observ ed. ?There is normal global left ventri cular systolic function. ?The quantitative left ventricular ejection fraction by biplane Madison's method is 67%. ?There are no left ventricular segm ental wall motion abnormalities. ?Left sided filling pressure could not be assessed by Doppler. Left Atrium: ? The left atrium is mo derately dilated. 43 ml/m2. ?No atrial septal defect is visuali zed. Right Ventricle: ? The right ventric le is normal in size. ?Right ventricular global systolic function is normal. ?The estimated pulmonary artery sys tolic pressure is 34 mmHg. ?The estimated right atrial pressur e is 3 mmHg. Right Atrium: ? The right atrium is mildly dilated. Aortic Valve: ? The aortic valve is tricuspid. ?The aortic valve leaflets are mild ly thickened. ?There is no evidence of aortic aden ve stenosis. ?There is a trace of aortic regurgi tation present. Mitral Valve: ? The mitral valve lula flets appear normal. ?The mean gradient across the lesley l valve is 3 mmHg. Heart rate 55 bpm. ?There is mild (1+/4+) mitral regur gitation present. 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 #29 mm in 2004. Tricuspid Valve: ? The tricuspid aden ve appears normal in structure and function. ?There is mild (1+/4+) tricuspid re gurgitation present. Pulmonic Valve: ? The pulmonic valve appears normal. ?There is mild (1+/4+) pulmonic reg urgitation present. Pericardium: ? The pericardium appea rs normal and there is no evidence of a pericardial effusion. Aorta: ? The aortic root is normal i n size. ?The ascending aorta is normal in s ize. Pulmonary Artery: ? The main pulmona ry artery appears normal. Venous: ? The inferior vena cava nelson ears normal in size. ?There is a greater than 50% respir atory change in the inferior vena cava dimension. Misc: ? Two-dimensional echo, spectr al Doppler and color Doppler performed. Chambers 2D ?Value ?Units (Range) ? IVSd (2D) ? 1.1 ?cm ? LVPWd (2D) ?1.1 ?cm ? IVS:LVPW ratio (2D) 1 ?ratio ? RWT (2D) ?0.5 ?ratio ? RWT PW (2D) ? 0.5 ?ratio ? LVIDd (2D) ?4.5 ?cm ? LVIDs (2D) ?2.7 ?cm ? LVIDd (2D) index ?2.5 ?cm/m2 ? LVIDs (2D) index ?1.5 ?cm/m2 ? LV FS (2D) ?40 ? % ? EF Teichholz (2D) ?? 71 ? % ? Ao root diameter (2D3.5 ?cm (2.1 - 3.6) ? Ascending Ao ?3.4 ?cm (2 - 3.5) ? Volumes/Mass ?Value ?Units (Range) ? LA Area 4 CH ?22 ? cm2 (<21) ? LA ESV BP (A/L) inde42.9 ? ml/m2 ? RA AREA 4CH ? 20 ? cm2 ? LA ESV BP (MOD) inde43 ? ml/m2 ? LV ESV SP 4CH (MOD) 37.1 ? ml ? LV ESV SP 2CH (MOD) 39.1 ? ml ? LV EDV BP ? 116.5 ?ml ? LV ESV BP ? 38.8 ? ml ? LV EDV BP index ? 65.1 ? ml/m2 ? LV ESV BP index ? 21.7 ? ml/m2 ? BP EF (MOD) ? 67 ? % ? LV mass (2D) ?177.1 ?g ? LV mass (2D) index ??98.9 ? g/m2 ? Diastolic/Systolic Function ?Value ?Units (Range) ? MV E-wave Vmax ?1.3 ?m/sec ? MV deceleration zrsa484.2 ? msec ? MV A-wave Vmax ?1.3 ?m/sec ? MV E:A ratio ?1 ?ratio ? LV septal e' Vmax ?? 0.1 ?m/sec ? LV lateral e' Vmax ??0.1 ?m/sec ? LV average e' Vmax ??0.1 ?m/sec ? LV E:e' septal ratio19 ? ratio ? LV E:e' lateral rati14.8 ? ratio ? LV average E:e' rati16.6 ? ratio ? Aortic Valve ?Value ?Units (Range) ? AV Vmax ? 1.3 ?m/sec ? AV peak gradient ?6.9 ?mmHg ? LVOT Vmax ? 1 ?m/sec ? LVOT peak gradient ??4.2 ?mmHg ? DOI (Vmax) ?0.8 ?ratio ? Mitral Valve ?Value ?Units (Range) ? MV Vmax ? 1.3 ?m/sec ? MV VTI ?47.7 ? cm ? MV peak gradient ?6.7 ?mmHg ? MV mean gradient ?3 ?mmHg ? Tricuspid Valve ?Value ?Units (Range) ? TAPSE ? 1.6 ?cm ? RV lateral s' Vmax ??0.1 ?m/sec ? TR Vmax ? 2.8 ?m/sec ? TR peak gradient ?31.3 ? mmHg ? RAP ? 3 ?mmHg ? RVSP ?34 ? mmHg ? Pulmonic Valve/Qp:Qs ?Value ?Units (Range) ? GA end-diastolic Vma1 ?m/sec ? PA end-diastolic pre6.8 ?mmHg ? Measurement Trending Name ? 08/15/2018 ?03/08/2016 ?12/24/2013 ?03/28/2013 ? 07/28/2009 ? MV mean gradient ? 3 3 Wall Motion: Segment Name ?Rest ? Base-Anteroseptal ?? Normal ? Base-Anterior ? Normal ? Base-Anterolateral ??Normal ? Base-Posterolateral Normal ? Base-Inferior ? Normal ? Base-Inferoseptal ?? Normal ? Mid-Anteroseptal ?Normal ? Mid-Anterior ?Normal ? Mid-Anterolateral ?? Normal ? Mid-Posterolateral ??Normal ? Mid-Inferior ?Normal ? Mid-Inferoseptal ?Normal ? [place]-Septal ? Normal ? [place]-Anterior ? Normal ? [place]-Lateral ?Normal ? [place]-Inferior ? Normal ? [place]-Tip ?Normal ? This report has been electronically sign ed by: _ Tom Hammond MD ? 08/15/2018 14 :31:46 Images reviewed and interpretation margarita [facility] Cardiac Ultrasound Laboratory Procedure Note Tom Hammond MD - 08/15/2018Formatt ing of this note might be different from the original. Procedure: Transthoracic Echocardiogram Patient: RACQUEL BLANCAS(Age): 1940(78y) Med Rec#: [id number] Sex: M Site Loc: [facility] Ht / Wt: 170(cm)/68(kg) Pt. Loc: Echo Lab BSA: 1.79 Study Date: 08/15/2018 Pt. 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 The left ventricular chamber size is normal with basal septal hypertrophy. There is normal global left ventricular systolic function with an ejection fraction by biplane Sim pson's method of 67%. There are no left ventricular segmental wall motio n abnormalities. 2. Normal right ventricle structure and function. 3. The mitral valve leaflets appear norm al. There is a 29 mm mitral annulus ring, implanted 11/25/2004. There is mild (1+/4+) mitral regurgitation present. The mean gradient across the mitral valve is 3 mmHg at a heart rate 55 bpm. Other valve s are also without hemodynamically significant disease. 4. Moderate left atrial enlargement. 5. Compared to previous study dated 03/08, LA size is larger. Findings : Study Quality: Adequate Left Ventricle: The left ventricular bryan mber size is normal. Basal septal hypertrophy is observed. There is normal global left ventricular systolic function. The quantitative left ventricular eject ion fraction by biplane Madison's method is 67%. There are no left ventricular segmental wall motion abnormalities. Left sided filling pressure could not b e assessed by Doppler. Left Atrium: The left atrium is moderate ly dilated. 43 ml/m2. No atrial septal defect is visualized. Right Ventricle: The right ventricle is normal in size. Right ventricular global systolic funct ion is normal. The estimated pulmonary artery systolic pressure is 34 mmHg. The estimated right atrial pressure is 3 mmHg. Right Atrium: The right atrium is mildly dilated. Aortic Valve: The aortic valve is tricus pid. The aortic valve leaflets are mildly th ickened. There is no evidence of aortic valve st enosis. There is a trace of aortic regurgitatio n present. Mitral Valve: The mitral valve leaflets appear normal. The mean gradient across the mitral aden ve is 3 mmHg. Heart rate 55 bpm. There is mild (1+/4+) mitral regurgitat ion present. 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 #29 mm in 2004. Tricuspid Valve: The tricuspid valve nelson ears normal in structure and function. There is mild (1+/4+) tricuspid regurgi tation present. Pulmonic Valve: The pulmonic valve appea rs normal. There is mild (1+/4+) pulmonic regurgit ation present. Pericardium: The pericardium appears nor mal and there is no evidence of a pericardial effusion. Aorta: The aortic root is normal in size . The ascending aorta is normal in size. Pulmonary Artery: The main pulmonary art josh appears normal. Venous: The inferior vena cava appears n ormal in size. There is a greater than 50% respiratory change in the inferior vena cava dimension. Misc: Two-dimensional echo, spectral Dop pler and color Doppler performed. Chambers 2D Value Units (Range) IVSd (2D) 1.1 cm LVPWd (2D) 1.1 cm IVS:LVPW ratio (2D) 1 ratio RWT (2D) 0.5 ratio RWT PW (2D) 0.5 ratio LVIDd (2D) 4.5 cm LVIDs (2D) 2.7 cm LVIDd (2D) index 2.5 cm/m2 LVIDs (2D) index 1.5 cm/m2 LV FS (2D) 40 % EF Teichholz (2D) 71 % Ao root diameter (2D3.5 cm (2.1 - 3.6) Ascending Ao 3.4 cm (2 - 3.5) Volumes/Mass Value Units (Range) LA Area 4 CH 22 cm2 (<21) LA ESV BP (A/L) inde42.9 ml/m2 RA AREA 4CH 20 cm2 LA ESV BP (MOD) inde43 ml/m2 LV ESV SP 4CH (MOD) 37.1 ml LV ESV SP 2CH (MOD) 39.1 ml LV EDV BP 116.5 ml LV ESV BP 38.8 ml LV EDV BP index 65.1 ml/m2 LV ESV BP index 21.7 ml/m2 BP EF (MOD) 67 % LV mass (2D) 177.1 g LV mass (2D) index 98.9 g/m2 Diastolic/Systolic Function Value Units (Range) MV E-wave Vmax 1.3 m/sec MV deceleration greu202.2 msec MV A-wave Vmax 1.3 m/sec MV E:A ratio 1 ratio LV septal e' Vmax 0.1 m/sec LV lateral e' Vmax 0.1 m/sec LV average e' Vmax 0.1 m/sec LV E:e' septal ratio19 ratio LV E:e' lateral rati14.8 ratio LV average E:e' rati16.6 ratio Aortic Valve Value Units (Range) AV Vmax 1.3 m/sec AV peak gradient 6.9 mmHg LVOT Vmax 1 m/sec LVOT peak gradient 4.2 mmHg DOI (Vmax) 0.8 ratio Mitral Valve Value Units (Range) MV Vmax 1.3 m/sec MV VTI 47.7 cm MV peak gradient 6.7 mmHg MV mean gradient 3 mmHg Tricuspid Valve Value Units (Range) TAPSE 1.6 cm RV lateral s' Vmax 0.1 m/sec TR Vmax 2.8 m/sec TR peak gradient 31.3 mmHg RAP 3 mmHg RVSP 34 mmHg Pulmonic Valve/Qp:Qs Value Units (Range) GA end-diastolic Vma1 m/sec PA end-diastolic pre6.8 mmHg Measurement Trending Name 08/15/2018 03/08/2016 12/24/2013 03/28/2013 07/28/2009 MV mean gradient 3 3 Wall Motion: Segment Name Rest Base-Anteroseptal Normal Base-Anterior Normal Base-Anterolateral Normal Base-Posterolateral Normal Base-Inferior Normal Base-Inferoseptal Normal Mid-Anteroseptal Normal Mid-Anterior Normal Mid-Anterolateral Normal Mid-Posterolateral Normal Mid-Inferior Normal Mid-Inferoseptal Normal [place]-Septal Normal [place]-Anterior Normal [place]-Lateral Normal [place]-Inferior Normal [place]-Tip Normal This report has been electronically sign ed by: _ Tom Hammond MD 08/15/2018 14:31:46 Images reviewed and interpretation margarita hager [facility] Cardiac Ultrasound Laboratory Giorgio Cardona MD ECHO ORDERABLES documented in this encounter Visit Diagnoses Diagnosis Dyslipidemia Other and unspecified hyperlipidemia Gastroesophageal reflux disease without esophagitis Esophageal reflux Essential hypertension Unspecified essential hypertension Impaired fasting glucose Malignant neoplasm of hilus of lung, uns pecified laterality S/P mitral valve repair Other postprocedural status Primary osteoarthritis involving multipl e joints Pancreatic cyst Cyst and pseudocyst of pancreas Prostate cancer Malignant neoplasm of prostate Vocal cord paralysis Paralysis of vocal cords or larynx, unsp ecified Pseudopolyposis of colon, unspecified co mplication status, unspecified part of colon Anemia, unspecified type S/P mitral valve repair Other postprocedural status documented in this encounter Care Teams Employee Welfare Manager Relationship Specialty Start Date End Date Giorgio Cardona MD PCP - General General Internal Medicine 11/29/1712/11/ 0 [facility] [place] [address] documented as of this encounter
--- OUTSIDE RECORDS SUMMARY | 2022-10-09 16:14 | XMS_ITS | Encounter Summary ---
:1940 Author Organization [place] [address] Care Team Providers Name Role Phone Giorgio Cardona MD Primary Care Provider Reason for Referral Diagnostic Test (Routine) - Closed Specialty Diagnoses / Procedures Referred By Contact Refer red To Contact Radiology Diagnoses Malignant neoplasm of hilus of lung, unspecified laterality Giorgio Cardona MD [facility] Rad Ct Scan Procedures CT Chest wo Contrast (Generic) [facility] INTERNAL [place], [place] [phone] [place] [address] Referral ID Status Reason Start Date Expiration Date Visits V isits Requested Authorized [id number] Closed Specialty 05/16/2019 05/15/2020 1 1 Service Requested Reason for Visit Reason Onset Date Comments Results 05/14/2019 Encounter Details Date Type Department Care Team Description 05/14/2019 Telephone Internal Medicine at [facility] [place] [address] Social History Tobacco Use Types Packs/Day Years Used Date Smoking Tobacco: Never Smokeless Tobacco: Never Alcohol Use Standard Drinks/Week Comments Yes 0 (1 standard drink = 0.6 oz pure alcoho l) RARE Sex Assigned at Date Recorded Not on file documented as of this encounter Miscellaneous Notes Telephone Encounter - Chrissy Issa RN - 05/16/2019 9:48 AM EDT Alfredito called back. Informed him that Dr. Cardona has been in contact with Dr. Cote and they both agree that it is appropriate to schedule a CT scan to continue to evaluate him for new or recurrent cancer. Pt verbalized understanding and agrees. Order for chest CT scan wo contrast prepared for Dr. Cardona to review and sign. Telephone Encounter - Chrissy Issa RN - 05/14/2019 2:34 PM EDT PC to Alfredito attempted to relay message from Dr. Cardona. M to let him know that Dr. Cardona is suggesting a repeat CT Scan and for him to call back and ask for a blue team nurse. Per Dr. Cardona: Thanks Bernardo Let???s get a repeat ct chest It???ll also alleviate the patient anxiety Per Dr. Cote: It looks like I saw him in 2016 and recommended annual followup in 2017 but have not seen him since. The sensitivity of a CXR for lesions less than 1cm is low, and annual surveillance non-contrast CT will be the best way to continue to evaluate him for new or recurrent cancer. I'dbe happy to see him back any time, either before or after CT, to discuss. Telephone Encounter - Chrissy Issa RN - 05/14/2019 11:41 AM EDT PC to Alfredito and relayed the x-ray result as documented under IMRESSION. Pt states he is feeling alittle better today. He is asking if the x-ray would show if he would have cancer. Advised that a message will be sent to Dr. Holguin if there is any further interpretation. IMPRESSION Stable appearance of the chest. No acute infiltrate or congestive changes. Telephone Encounter - [place] - 05/14/2019 10:14 AM EDT Requesting test results: Type of Test: x-ray Date of Test: 05/13/19 Where Test was performed: [facility] Who ordered the Test: Dr. Spears Caller and relationship (if other than patient-full name): pt Best time to call back: any Ok to leave a message: yes - okay to leave detailed vm Ok to send my- message no MA/Nurse contacted via: Message: y Call: n Pager: n Pt stated he will be leaving in about 30minutes for the day and is hoping to get a call before he leaves to get his x-ray results. Please call pt darrell to discuss results. documented in this encounter Plan of Treatment Upcoming Encounters Date Type Specialty Care Team Description 10/11/2022 Office Visit Dermatology Virgilio Mckeon MD [facility] DR CHRISTIANO HENSON-DERMAT OLOGY [place], [place] [address] (Leroy bhatia) 10/16/2022 Office Visit Otolaryngology Frank Buchanan MD [facility] OTOLARYNGOLOGY Sarah EPT. [place], [place] [address] (Leroy bhatia) 11/29/2022 Appointment Hematology and Oncology 11/29/2022 Office Visit Radiation Oncology Emerald Leyva APRN [facility] RADIATION ONCCESAR GY [place], [place] [address] (Leroy bhatia) documented as of this encounter Results CT Chest wo Contrast (Generic) (05/21/2019 2:39 PM EDT) Anatomical Region Laterality Modality Chest Computed Tomography Specimen (Source) Anatomical Location Collection Method / Collectio n Time Received Time / Laterality Volume Impressions 05/21/2019 3:49 PM EDT No evidence of local recurrence or distant metastatic disease. I have personally reviewed the image(s) and the residents interpretation and agree with the findings, Kaushik guerrero 05/21/2019 3:49 PM Thank you for letting us participate in the care of this patient. For questions regarding this report, please contact e number below. ? Narrative 05/21/2019 3:49 PM EDT EXAMINATION: CT CHEST WO CONTRAST (GENERIC) CLINICAL HISTORY: CLINICAL HISTORY: stat us post thorascopic lobectomy for 1.1 cm invasive TECHNIQUE: 3.75mm thick axial contiguous sections were obtained through the chest via helical acquisition without in travenous contrast administration. Thin-section reconstructions as well as coronal and sagittal reformatted images were generated. COMPARISON: None FINDINGS: Pulmonary parenchyma: Stable postsurgica l changes at the right base. Similar appearance of focal groundglass opacitie s in the posterior right upper lobe (series 5 image 98) when compared to . No new pulmonary nodular mass. Airways: No significant findings. Pleura: Unchanged mild pleural thickenin g at the posterior inferior medial RIGHT hemithorax. Lymph nodes:No significant findings. Heart, pericardium, and great vessels: U nchanged appearance of mitral valve prosthesis. Severe coronary calcificatio ns. Heart normal in size without pericardial effusion. Other mediastinal structures: No signifi cant findings. Lower neck: No significant findings. Upper abdomen: Interval increased size o f right superior pole renal cyst measuring 4.3 cm, previously 2.2 cm. Augustina sures approximately 0 Hounsfield units. This could represent interval hemorrhage into the cyst which has since resolved. Unchanged left renal cyst. Left adrenal nodule unchanged since 2014. Body wall soft tissues: No significant f indings. Skeletal structures: Median sternotomy w ires are present. No suspicious appearing osseous lesions. Procedure Note Kaushik Roberts MD - 05/21/2019Formatt ing of this note might be different from the original. EXAMINATION: CT CHEST WO CONTRAST (GENER IC) CLINICAL HISTORY: CLINICAL HISTORY: stat us post thorascopic lobectomy for 1.1 cm invasive TECHNIQUE: 3.75mm thick axial contiguous sections were obtained through the chest via helical acquisition without in travenous contrast administration. Thin-section reconstructions as well as coronal and sagittal reformatted images were generated. COMPARISON: None FINDINGS: Pulmonary parenchyma: Stable postsurgica l changes at the right base. Similar appearance of focal groundglass opacitie s in the posterior right upper lobe (series 5 image 98) when compared to . No new pulmonary nodular mass. Airways: No significant findings. Pleura: Unchanged mild pleural thickenin g at the posterior inferior medial RIGHT hemithorax. Lymph nodes:No significant findings. Heart, pericardium, and great vessels: U nchanged appearance of mitral valve prosthesis. Severe coronary calcificatio ns. Heart normal in size without pericardial effusion. Other mediastinal structures: No signifi cant findings. Lower neck: No significant findings. Upper abdomen: Interval increased size o f right superior pole renal cyst measuring 4.3 cm, previously 2.2 cm. Augustina sures approximately 0 Hounsfield units. This could represent interval hemorrhage into the cyst which has since resolved. Unchanged left renal cyst. Left adrenal nodule unchanged since 2014. Body wall soft tissues: No significant f indings. Skeletal structures: Median sternotomy w ires are present. No suspicious appearing osseous lesions. IMPRESSION No evidence of local recurrence or dista nt metastatic disease. I have personally reviewed the image(s) and the residents interpretation and agree with the findings, Kaushik guerrero 05/21/2019 3:49 PM Thank you for letting us participate in the care of this patient. For questions regarding this report, please contact e number below. 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
--- OUTSIDE RECORDS SUMMARY | 2022-10-09 16:14 | XMS_ITS | Encounter Summary ---
:1940 Author Organization [facility] [place] [place] [address] Care Team Providers Name Role Phone Giorgio Cardona MD Primary Care Provider Encounter Details Date Type Department Care Team Description 10/17/2018 [facility] [place] [address] Social History Tobacco Use Types Packs/Day Years Used Date Smoking Tobacco: Never Smokeless Tobacco: Never Alcohol Use Standard Drinks/Week Comments Yes 0 (1 standard drink = 0.6 oz pure alcoho l) RARE Sex Assigned at Date Recorded Not on file documented as of this encounter Progress Notes Josefina Flynn S - 10/17/2018 11:30 AM EST First Steps Advance Care Planning Conversation Referral Source: Self-referral ACP Conversation: Initial Names and relationships of those present for the conversation: Alfredito Mina Provider's Role:Certified Respecting Choices ACP clothing consultant - Staff The conversation followed the format of a Respecting Choices ??: [x] First Steps Conversation for Healthy Adult []First Steps Conversation for an Adult with a Chronic Illness The following topics were covered (check topics covered): [x] The goals of the advance care planning meeting were clarified with attendees: To make 3 decisions (choosing an agent, consider care decisions in the face of severe neurologic injury or illness, and identifying personal or alevism beliefs that might affect decisions) To understand the role of the health care agent To complete the advance directive as appropriate [x] The patient???s motivation, knowledge, and/or belief about advance care planning were assessed. [x] An understanding of the role of the health care agent was assessed. [x] Experiences with sudden neurologic injury or illness were explored. [x] Goals of medical care for severe neurologic injury were explored. [x] An opportunity was offered to explore how alevism, cultural, or personal beliefs would affectdecisions for future care. For those with Chronic illness the following was addressed: [] The patient???s understanding of their medical condition was explored. [] The concept of what it means ???to live well?? was explored with the patient. [] Assistance was provided with the decision regarding CPR: [] Understanding of CPR, benefits and burdens [] Explored expected goals of CPR and clarifying unacceptable outcomes [] Explored fears and concerns regarding CPR [] Reviewed previous Advance Care Planning documents [x] Assistance was provided in completing all or part of the advance directive. [x] Recommendations were made for communicating the plan and for making copies for the health care agent, personal physician, and others as appropriate (e.g., manual qa tester, hospital) Health Care Agent(s) present: [place] [facility] Health Care Agent: Erin Pandey Additional information: Goals and values identified: Fears and concerns identified: Treatment decisions: Advance Directive Status:AD is in record and AD completed at visit,will be scanned in record Follow up: Time for Conversation: 45-<60 Josefina Flynn [place] for Shared Decision Making ACP Biofuels Research Scientist documented in this encounter Plan of Treatment Upcoming Encounters Date Type Specialty Care Team Description 10/11/2022 Office Visit Dermatology Virgilio Mckeon MD [facility] DR CHRISTIANO HENSON-DERMAT OLOGY [place], [place] [address] (Wo rk) 10/16/2022 Office Visit Otolaryngology Frank Buchanan MD [facility] OTOLARYNGOLOGY D EPT. [place], [place] [address] (Wo rk) 11/29/2022 Appointment Hematology and Oncology 11/29/2022 Office Visit Radiation Oncology Emerald Leyva APRN [facility] RADIATION ONCOLO GY [place], [place] [address] (Wo rk) documented as of this encounter Visit Diagnoses Not on filedocumented in this encounter Care Teams Community Leader Relationship Specialty Start Date End Date Giorgio Cardona MD PCP - General General Internal Medicine 11/29/17 0 [facility] GENERAL [place] [address] documented as of this encounter
--- OUTSIDE RECORDS SUMMARY | 2022-10-09 16:14 | XMS_ITS | Encounter Summary ---
:1940 Author Organization [facility] [place] [address] Care Team Providers Name Role Phone Arabella Cardona MD Primary Care Provider Reason for Referral Diagnostic Test (Routine) - Closed Specialty Diagnoses / Procedures Referred By Contact Refer red To Contact Cardiology Diagnoses S/P mitral valve repair Arabella Cardona MD [facility] Non-Inv Card Lab Procedures Echocardiogram Transthoracic(Leb) [place], [place] [phone] [facility] [place] [address] Referral ID Status Reason Start Date Expiration Date Visits V isits Requested Authorized [id number] Closed Specialty 07/11/2018 07/11/2019 1 1 Service Requested Reason for Visit Diagnostic Test (Routine) - Closed Specialty Diagnoses / Procedures Referred By Contact Refer red To Contact Cardiology Diagnoses S/P mitral valve repair Arabella Cardona MD [facility] Non-Inv Card Lab Procedures Echocardiogram Transthoracic(Leb) [facility] [place], [place] [phone] [place] [address] Referral ID Status Reason Start Date Expiration Date Visits V isits Requested Authorized [id number] Closed Specialty 07/11/2018 07/11/2019 1 1 Service Requested Encounter Details Date Type Department Care Team Description 08/15/2018 Hospital Encounter Non-Invasive Arabella Cardona S/P mi tral valve Cardiology Lab Sharita GALINDO [facility] [address] MEDICINE [place], [place] [phone] Social History Tobacco Use Types Packs/Day Years [...] (SYNTHROID) Take 1 tablet by 30 tablet 12/1310/11/2018 125 mcg tablet mouth every morning. documented as of this encounter Plan of Treatment Upcoming Encounters Date Type Specialty Care Team Description 10/11/2022 Office Visit Dermatology Virgilio Mckeon MD [facility] ER DR [address]-DERMAT OLOGY [place], [place] [address] (Wo rk) 10/16/2022 Office Visit Otolaryngology Frank Buchanan MD [facility] ER OTOLARYNGOLOGY Sarah EPT. [place], [place] [address] (Wo rk) 11/29/2022 Appointment Hematology and Oncology 11/29/2022 Office Visit Radiation Oncology Emerald Leyva APRN [facility] ER RADIATION ONCCESAR GY [place], [place] [address] (Wo rk) documented as of this encounter Procedures Procedure Name Priority Date/Time Associated Comments Diagnosis ECHOCARDIOGRAM COMPLETE Routine 08/15/2018 2:07 PM S/P mitral valve Results for this EDT repair procedure are i n the results section. documented in this encounter Results ECHOCARDIOGRAM COMPLETE (08/15/2018 2:07 PM EDT) P athologist Signature EF 67 HEARTLAB SYSTEM Anatomical Region Laterality Modality Other Specimen (Source) Anatomical Location Collection Method / Collectio n Time Received Time / Laterality Volume 08/15/2018 Narrative 08/15/2018 2:45 PM EDT Procedure: ?Transthoracic Echocardiogram Patient: ?RACQUEL Rodriguez ?? (Age): 1940(78y) Med Rec#: ? [id number] ?Sex: ?M ? Site Loc: ? [facility] ?Ht / Wt: ??170(cm)/68(kg) Pt. Loc: ?Echo Lab ?BSA: ?1.79 Study Date: ?? 08/15/2018 ?Pt. Type: Outpatient Tape: ? Referring: JAYJUSTINARABELLAChristofer Reading: Tom Hammond ([id number]) Bread Racker: Génesis Ruby [facility] [[email or web address]] Interpreting Fellow: RAEANN CAMERON ([phone]) Diagnosis: *Other nonrheumatic mitral valve disord ers [...] E-wave Vmax ?1.3 ?m/sec ? MV deceleration kcco091.2 ? msec ? MV A-wave Vmax ?1.3 [...] ? Pulmonic Valve/Qp:Qs ?Value ?Units (Range) ? CA end-diastolic Vma1 ?m/sec ? PA end-diastolic pre6.8 [...] ? Mid-Inferior ?Normal ? Mid-Inferoseptal ?Normal ? [place]-Septal ? Normal ? [place]-Anterior ? Normal ? [place]-Lateral ?Normal ? [place]-Inferior ? Normal ? [place]-Tip ?Normal ? This report has been electronically sign ed by: _ Tom Hammond MD ? 08/15/2018 14 :31:46 Images reviewed and interpretation margarita hager [facility] Cardiac Ultrasound Laboratory Procedure Note Tom Hammond MD - 08/15/2018Formatt ing of this note might be different from the original. Procedure: Transthoracic Echocardiogram Patient: RACQUEL BLANCAS(Age): 1940(78y) Med Rec#: [id number] Sex: M Site Loc: [facility] Ht / Wt: 170(cm)/68(kg) Pt. Loc: Echo Lab BSA: 1.79 Study Date: 08/15/2018 Pt. Type: Outpati ent Tape: Referring: SUNIL Reading: Tom Hammond ([id number]) Bread Racker: Génesis Ruby RDCS Interpreting Fellow: RAEANN CAMERON ([phone]) Diagnosis: *Other nonrheumatic mitral valve disord ers [...] MV E-wave Vmax 1.3 m/sec MV deceleration [id number] msec MV A-wave Vmax 1.3 m/sec MV [...] 34 mmHg Pulmonic Valve/Qp:Qs Value Units (Range) CA end-diastolic Vma1 m/sec PA end-diastolic pre6.8 mmHg Measurement Trending Name 08/15/2018 03/08/2016 12/24/2013 03/28/2013 07/28/2009 MV mean gradient 3 3 Wall Motion: Segment Name Rest Base-Anteroseptal Normal Base-Anterior Normal Base-Anterolateral Normal Base-Posterolateral Normal Base-Inferior Normal Base-Inferoseptal Normal Mid-Anteroseptal Normal Mid-Anterior Normal Mid-Anterolateral Normal Mid-Posterolateral Normal Mid-Inferior Normal Mid-Inferoseptal Normal [place]-Septal Normal [place]-Anterior Normal [place]-Lateral Normal [place]-Inferior Normal [place]-Tip Normal This report has been electronically sign ed by: _ Tom Hammond MD 08/15/2018 14:31:46 Images reviewed and interpretation margarita hager [facility] Cardiac Ultrasound Laboratory Arabella Cardona MD ECHO ORDERABLES documented in this encounter Visit Diagnoses Diagnosis S/P mitral valve repair Other postprocedural status documented in this encounter Care Teams Observer Helper Relationship Specialty Start Date End Date Arabella Cardona MD PCP - General General Internal Medicine 11/29/1712/11/ 0 [facility] GENER[place] [address] documented as of this encounter
--- OUTSIDE RECORDS SUMMARY | 2022-10-09 16:14 | XMS_ITS | Encounter Summary ---
:1940 Author Organization [facility] [place] [address] Care Team Providers Name Role Phone Giorgio Cardona MD Primary Care Provider Encounter Details Date Type Department Care Team Description 05/20/2019 Orders Only Internal Medicine at [facility] [place] [address] Social History Tobacco Use Types Packs/Day [...] Office Visit Dermatology Virgilio Mckeon MD [facility] DR CHRISTIANO HENSON-DERMAT OLOGY [place], [place] [address] (Wo rk) 10/16/2022 Office Visit Otolaryngology Frank Buchanan MD [facility] OTOLARYNGOLOGY Sarah T. [place], [place] [address] (Wo rk) 11/29/2022 Appointment Hematology and Oncology 11/29/2022 Office Visit Radiation Oncology Emerald Leyva APRN [facility] DR RYNE CANO [place], [place] [address] (Wo rk) documented as of this encounter Visit Diagnoses Not on filedocumented in this encounter Care Teams Physical Security Manager Relationship Specialty Start Date End Date Giorgio Cardona MD PCP - General General Internal Medicine 11/29/17 0 [facility] [place] [address] documented as of this encounter
--- OUTSIDE RECORDS SUMMARY | 2022-10-09 16:14 | XMS_ITS | Encounter Summary ---
:1940 Author Organization [facility] [place] [address] Care Team Providers Name Role Phone Giorgio Cardona MD Primary Care Provider Encounter Details Date Type Department Care Team Description 11/29/2017 Orders Only Internal Medicine at [facility] [place] [address] Social History Tobacco Use Types Packs/Day [...] Visit Dermatology Virgilio Mckeon MD [facility] DR CHRISTIANO HENSON-DERMAT OLOGY [place], [place] [address] (Wo rk) 10/16/2022 Office Visit Otolaryngology Frank Buchanan MD [facility] OTOLARYNGOLOGY Sarah T. [place], [place] [address] (Wo rk) 11/29/2022 Appointment Hematology and Oncology 11/29/2022 Office Visit Radiation Oncology Emerald Leyva APRN [facility] [address] RYNE CANO [place], [place] [address] (Wo rk) documented as of this encounter Visit Diagnoses Not on filedocumented in this encounter Care Teams Chief Fundraising Officer Relationship Specialty Start Date End Date Giorgio Cardona MD PCP - General General Internal Medicine 11/29/17 0 [facility] GENER[place] [address] documented as of this encounter
--- OUTSIDE RECORDS SUMMARY | 2022-10-09 16:14 | XMS_ITS | Encounter Summary ---
:1940 Author Organization [facility] [place] [address] Care Team Providers Name Role Phone Giorgio Cardona MD Primary Care Provider Reason for Visit Reason Comments Fall 2 30 ft ladders hit his head and now left foot is swollen Encounter Details Date Type Department Care Team Description 08/15/2018 Office Visit Internal Medicine at [facility], Christofer Vaughan cute left ankle pain; [facility] [place] [place] Contusion of scalp, initial encounter [facility] [place] GENERAL INTERNAL [id number] MEDICINE [phone] [place], [place] [address] (Wo rk) Social History Tobacco Use Types Packs/Day Years Used Date Smoking Tobacco: Never Smokeless Tobacco: Never Alcohol Use Standard Drinks/Week Comments Yes 0 (1 standard drink = 0.6 oz pure alcoho l) RARE Sex Assigned at Date Recorded Not on file documented as of this encounter Last Filed Vital Signs Vital Sign Reading Time Taken Comments Blood Pressure 138/60 08/15/2018 8:45 AM EDT Pulse 52 08/15/2018 8:45 AM EDT Temperature 36.6 ??C (97.9 ??F) 08/15/2018 8:45 AM EDT Respiratory Rate 16 08/15/2018 8:45 AM EDT Oxygen Saturation 100% 08/15/2018 8:45 AM EDT Inhaled Oxygen Concentration - - Weight 66 kg (145 lb 9.6 oz) 08/15/2018 8:45 AM EDT Height 164 cm (5' 4.57) 08/15/2018 8:45 AM EDT Body Mass Index 24.56 08/15/2018 8:45 AM EDT documented in this encounter Patient Instructions Patient InstructionsAurelia Silva PA - 08/15/2018 9:00 AM EDT Images from the original note were not included. Nestor Celis - see if you can find an ankle sleeve similar to this one. Please also elevate your L lower legfor at least 20 minutes - twice/day. Please also apply cold packs to it 3-4 times/day for at least 15 minutes. documented in this encounter Progress Notes Aurelia Silva PA - 08/15/2018 9:00 AM EDT Alfredito Mina is here today to discuss: Walked into his barn without turning on the light. Something shifted and ladders situated above his head fell - hitting him in the head and causing him to fall ~ 4 days ago - he cannot remember the exact day. No LOC. 4 days later - L foot swelling. Noted foggy headedness after the ladders hit him in the head. Fogginess now passed. Denies RICHARDSON, n/v, sleepiness, visual and auditory changes. Patient Active Problem List Diagnosis Date Noted ??? Splinter 10/17/2016 ??? Bunion 10/17/2016 ??? [...] Multinodular goiter ??? Pancreatic cyst 09/12/2010 ??? Acute constipation 05/12/2010 ??? Dyslipidemia ??? GERD (gastroesophageal reflux disease) ??? Hypertension ??? Impaired fasting glucose ??? S/P mitral valve repair ??? Osteoarthritis ??? Prostate cancer ??? Lung cancer 12/13/2009 Medications 07/18/18 1117 Medication Sig Taking? polyethylene glycol (MIRALAX) 17 gram Powder in Packet Take 17 g by mouth daily. omeprazole (PRILOSEC) 20 mg Capsule, Delayed Release(E.C.) Take 1 capsule by mouth 2 times daily. potassium chloride (K-DUR/KLOR-CON) 10 mEq extended release tablet Take 1 tablet by mouth daily. atenolol (TENORMIN) 50 mg tablet TAKE ONE-HALF TABLET BY MOUTH EVERY DAY furosemide (LASIX) 20 mg tablet Take 1 tablet by mouth daily. terazosin (HYTRIN) 2 mg capsule Take 1 capsule by mouth nightly. levothyroxine (SYNTHROID) 125 mcg tablet Take 1 tablet by mouth every morning. ROS As above. PE BP 138/60 (BP Location (NBP): Right arm, Patient Position: Sitting, BP Cuff Sizes: Adult (25-34 cm)) Pulse 52 Temp 36.6 ??C (97.9 ??F) (Oral) Resp 16 Ht 164 cm (5' 4.57) Wt 66 kg (145 lb 9.6oz) SpO2 100% BMI 24.56 kg/m2 Gen: pleasant and comfortable. Speech is articulate. HEENT: mmm, EOMI CN II - XII intact Heart: RRR, no MRG Chest: CTAB, no wheezes AB: + BS, NT, no HSM MSK: AROM b/l UE and LE WFL Pedal edema L > R. Dusky appearance anterolateral aspect L LE. Ecchymosis noted medial and lateral aspects of rear foot distal to b/l malleollus and dorsolateral aspect of foot. Gait: no assistive device. Nonantalgic gait. Adequate clearance of feet during swing phase, stable balance on level surfaces and with change of direction. Lab Results Component Value Date WBC 4.6 07/11/2018 HGB 13.0 (L) 07/11/2018 HCT 38.3 (L) 07/11/2018 MCV 97.0 (H) 07/11/2018 PLATELET 180 07/11/2018 Chemistry Component Value Date/Time NA 140 07/11/2018 1021 K 4.4 07/11/2018 1021 CL 104 07/11/2018 1021 CO2 24 07/11/2018 1021 BUN 20 07/11/2018 1021 CREATININE 0.99 07/11/2018 1021 Component Value Date/Time CALCIUM 8.4 (L) 07/11/2018 1021 ALKPHOS 74 07/11/2018 1021 AST 35 07/11/2018 1021 ALT 18 07/11/2018 1021 BILITOT 0.7 07/11/2018 1021 Lipid Panel Lab Results Component Value Date CHLPL 176 07/11/2018 HDL 66 07/11/2018 CHOLHDL 2.7 07/11/2018 TRIG 56 07/11/2018 LDLCHOL 99 07/11/2018 Lab Results Component Value Date TSH 0.55 07/11/2018 Lab Results Component Value Date HA1C 5.9 (H) 07/11/2018 25-OH Vit D Total (ng/mL) Date Value Status 07/11/2018 34 Final Lab Results Component Value Date [id number] 346 07/11/2018 ASSESSMENT/PLAN Alfredito Mina is an active 78 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 Of note, ptalso c/o loss of overall strength in past years. He has had unintentional ~ 10 pound weight loss in last 2 years. L ankle and foot pain and swelling - Xray - fractures r/o - apply ankle support sleeve, elevate and use of cold packs throughout the day - consider general strength and conditioning PT program Head contusion - R parietal area - head CT - acute process R/o - RTC should pt note confusion, visual/auditory/speech/swallo changes Close follow up Future Appointments Date Time Provider Department Center 09/25/2018 11:00 AM Aurelia Silva PA [facility] 10/11/2018 9:30 AM Fadia Quigley APRN [facility] 07/24/2019 9:00 AM Giorgio Cardona MD [facility] documented in this encounter Plan of Treatment Upcoming Encounters Date Type Specialty Care Team Description 10/11/2022 Office Visit Dermatology Virgilio Mckeon MD [facility] DR CHRISTIANO HENSON-DERMAT OLOGY [place], [place] [address] (Wo rk) 10/16/2022 Office Visit Otolaryngology Frank Buchanan MD [facility] OTOLARYNGOLOGY Sarah EPT. [place], [place] [address] (Wo rk) 11/29/2022 Appointment Hematology and Oncology 11/29/2022 Office Visit Radiation Oncology Emerald Leyva APRN [facility] RADIATION ONCOLO GY [place], [place] [address] (Wo rk) documented as of this encounter Results XR Foot Min 3 views Left (Generic) (08/15/2018 10:08 AM EDT) Anatomical Region Laterality Modality Foot Left Digital Radiography Specimen (Source) Anatomical Location Collection Method / Collectio n Time Received Time / Laterality Volume Impressions 08/15/2018 10:57 AM EDT No acute injury. The well-corticated erosions in the dist al first metatarsal and distal first proximal phalanx are suggestive of gout. Narrative 08/15/2018 10:57 AM EDT EXAMINATION: XR FOOT MIN 3 VIEWS LEFT (GENERIC) CLINICAL HISTORY: LEFT ankle pain. TECHNIQUE: 3 views COMPARISON: 11/17/2015 FINDINGS: No fracture or dislocation. There are de generative changes involving the first MTP joint along with a well corticated l arge medial erosion. This is unchanged since 2016. There is a new well-corticat ed periarticular erosion in the head of the first proximal phalanx. Flattened pl ewa arch with minimal degenerative changes in the midfoot. Multiple hammert oe deformities. Procedure Note She Dunbar MD - 08/15/2018Formattin g of this note might be different from the original. EXAMINATION: XR FOOT MIN 3 VIEWS LEFT (G ENERIC) CLINICAL HISTORY: LEFT ankle pain. TECHNIQUE: 3 views COMPARISON: 11/17/2015 FINDINGS: No fracture or dislocation. There are de generative changes involving the first MTP joint along with a well corticated l arge medial erosion. This is unchanged since 2016. There is a new well-corticat ed periarticular erosion in the head of the first proximal phalanx. Flattened pl ewa arch with minimal degenerative changes in the midfoot. Multiple hammert oe deformities. IMPRESSION No acute injury. The well-corticated erosions in the dist al first metatarsal and distal first proximal phalanx are suggestive of gout. Giorgio Cardona MD IMG DX ORDERABLES XR Ankle Min 3 views Left (Generic) [...] Visit Diagnoses Diagnosis Acute left ankle pain Contusion of scalp, initial encounter Acute left ankle pain Acute left ankle pain documented in this encounter Care Teams Software Testing Specialist Relationship Specialty Start Date End Date Giorgio Cardona MD PCP - General General Internal Medicine 11/29/17 0 [facility] [place] [address] documented as of this encounter
--- OUTSIDE RECORDS SUMMARY | 2022-10-09 16:14 | XMS_ITS | Encounter Summary ---
:1940 Author Organization [facility] [place] [address] Care Team Providers Name Role Phone Giorgio Cardona MD Primary Care Provider Reason for Visit Reason Onset Date Comments Triage 05/12/2019 Encounter Details Date Type Department Care Team Description 05/12/2019 Telephone Internal Medicine at [facility] [place] [address] Social History Tobacco Use Types Packs/Day Years Used Date Smoking Tobacco: Never Smokeless Tobacco: Never Alcohol Use Standard Drinks/Week Comments Yes 0 (1 standard drink = 0.6 oz pure alcoho l) RARE Sex Assigned at Date Recorded Not on file documented as of this encounter Miscellaneous Notes Telephone Encounter - Chrissy Issa RN - 05/12/2019 3:41 PM EDT PC to Alfredito who reports that he is not improving and would like an appointment tomorrow and he thinks he need to have an x-ray. Pt was seen last week in clinic by Dr. Russo on 05/08/19. He is coughing and bringing up whitish-yellowish mucous. He has a runny nose and body aches. Symptoms started last . He denies fever, headache,chills and sweats. He is taking a Robitussin pill. 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 Advised pt to drink plenty of fluids, water and hot tea with honey and to try Mucinex without a decongestant for his cough and Claritin for his runny nose. Appointment scheduled with Dr. Spears tomorrow at 10.30 AM Telephone Encounter - Jayshree Weller - 05/12/2019 8:47 AM EDT Message: Pt is calling to speak with a nurse. Pt was seen last week and is still not feeling any better. Pt has been coughing up yellow stuff, is nauseous and aches. Please call to discuss. Ask caller their first and last name and relationship to the patient: self Best time to call back: any Ok to leave a message: y Ok to send my- message: n Offered Appointment: n MA/Nurse/Pre Kindergarten Teacher contacted via: Message: y Call: y Pager: n documented in this encounter Plan of Treatment Upcoming Encounters Date Type Specialty Care Team Description 10/11/2022 Office Visit Dermatology Virgilio Mckeon MD [facility] DR CHRISTIANO HENSON-DERMAT OLOGY [place], [place] [address] (Wo rk) 10/16/2022 Office Visit Otolaryngology Frank Buchanan MD [facility] OTOLARYNGOLOGY Sarah EPT. [place], [place] [address] (Wo rk) 11/29/2022 Appointment Hematology and Oncology 11/29/2022 Office Visit Radiation Oncology Emerald Leyva APRN [facility] RADIATION ONCCESAR [place], [place] [address] (Wo rk) documented as of this encounter Visit Diagnoses Not on filedocumented in this encounter Care Teams Account Contact Associate Relationship Specialty Start Date End Date Giorgio Cardona MD PCP - General General Internal Medicine 11/29/17 0 [facility] [place] [address] documented as of this encounter
--- OUTSIDE RECORDS SUMMARY | 2022-10-09 16:14 | XMS_ITS | Encounter Summary ---
:1940 Author Organization [facility] [place] [address] Care Team Providers Name Role Phone Giorgio Cardona MD Primary Care Provider Reason for Visit Reason Onset Date Comments Medication Problem 03/23/2017 Encounter Details Date Type Department Care Team Description 03/23/2017 Telephone [place] Medicine [place] [facility] Lorena [place] [address] Social History Tobacco Use Types Packs/Day Years Used Date Smoking Tobacco: Never Smokeless Tobacco: Never Alcohol Use Standard Drinks/Week Comments Yes 0 (1 standard drink = 0.6 oz pure alcoho l) RARE Sex Assigned at Date Recorded Not on file documented as of this encounter Miscellaneous Notes Telephone Encounter - Lorene Urias RN - 03/23/2017 11:00 AM EDT Returned Mr. Mina call and reassured him that it was OK to use his inhaler with his other medications. Telephone Encounter - Lorena Sheriff - 03/23/2017 10:49 AM EDT Requesting to speak with a nurse regarding the inhaler and wondering if it will interact with other medication. Please call [phone] documented in this encounter Plan of Treatment Upcoming Encounters Date Type Specialty Care Team Description 10/11/2022 Office Visit Dermatology Virgilio Mckeon MD [facility] [address]-DERMAT OLOGY [place], [place] [address] (Wo rk) 10/16/2022 Office Visit Otolaryngology Frank Buchanan MD [facility] OTOLARYNGOLOGY Sarah EPT. [place], [place] [address] (Wo rk) 11/29/2022 Appointment Hematology and Oncology 11/29/2022 Office Visit Radiation Oncology Emerald Leyva APRN [facility] RADIATION ONCOLO GY [place], [place] [address] (Wo rk) documented as of this encounter Visit Diagnoses Not on filedocumented in this encounter Care Teams Level Vial Inspector And Tester Relationship Specialty Start Date End Date Giorgio Cardona MD PCP - General 10/04/10 04/10/17 [facility] [place] [address] documented as of this encounter
--- OUTSIDE RECORDS SUMMARY | 2022-10-09 16:14 | XMS_ITS | Encounter Summary ---
:1940 Author Organization [facility] [place] [address] Care Team Providers Name Role Phone Giorgio Cardona MD Primary Care Provider Encounter Details Date Type Department Care Team Description 11/28/2018 Office Visit Dermatology at [facility] eborrheic keratosis; Emilia VELEZ MD History of basal cell carcinoma; [address] [facility] Skin [place] [address] [address] [phone] [facility] [place], [place] [address] Social History Tobacco Use Types Packs/Day Years Used Date Smoking Tobacco: Never Smokeless Tobacco: Never Alcohol Use Standard Drinks/Week Comments Yes 0 (1 standard drink = 0.6 oz pure alcoho l) RARE Sex Assigned at Date Recorded Not on file documented as of this encounter Progress Notes Emani Estevez - 11/28/2018 9:15 AM EST DERMATOLOGY ESTABLISHED PATIENT CLINIC NOTE Date of service: 11/28/2018 Alfredito Mina : 1940 Provider: Rigoberto Jackson MD PROBLEM: FSE SKIN HISTORY: 11/23/2014 ---Pathologic Diagnosis--- Treated with ED&C, right mid lateral back 12/08/2014 A - Skin, right mid lateral back, shave biopsy: Basal cell carcinoma, superficial type, extending to both peripheral margins. 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 Seborrheic Keratoses ?? HPI Alfredito Mina is a 78 y.o. male. Patient was last seen in 2016 and is here today for a FSE. Patient states that he has new spots pop up all the time all over his body. Patient states that he does not have anything on his body that Is concerning to his knowledge. Patient is here as a precautionary measure. He is still working at [employer] and happy with that. He is headed to [place] for a month off. ADR: Allergies Allergen Reactions ??? Cyclobenzaprine Urinary retention, xerostomia ??? Lactose Other (See Comments) Sneezing CURRENT MEDICATIONS: Current Outpatient Medications Medication Sig Dispense Refill ??? atenolol (TENORMIN) 50 mg Tablet Take [...] 1 capsule by mouth 2 times daily. (Patient not taking: Reported on 10/22/2018) 180 capsule 3 ??? polyethylene glycol (MIRALAX) [...] pleasant, cooperative Skin: Patient was asked to disrobe to the level of their comfort. A total body skin exam except for areas covered by underwear was performed. This includes examination of the skin of the face, ears, neck, chest, axillae, left and right upper and lower extremities, hands and feet, abdomen, and except the areas covered by underwear were not examined. Significant skin findings: A. Multiple 0.4-1 cm, brown-black papules/plaques with waxy stuck on appearance on the trunk and extremities - myriad of lesions B.S/P BCC well healed scar on the back - no new or worrisome lesions ASSESSMENT/PLAN: A. Seborrheic Keratosis (asymptomatic) - many lesions on trunk and extremities Monitor for change or symptoms - Etiology discussed - Patient reassured lesions are benign in nature - Explained that these are hereditary, adult onset and acquired. - Can develop anywhere on the body except for palms or soles - recommended daily moisturizing with moisturizer of choice, consider CeraVe B. History of Basal Cell Carcinoma - back - Well-healed surgical scar, no signs of recurrence. -Continue to monitor -Call if problems arise -Discussed importance of sun protection, sun avoidance strategies, protective clothing, and sunscreen. Sun protection and monitor skin for new or changing lesions is advised. Call if problems arise RTC - 1 year for full skin exam, sooner if needed. Reminder placed in scheduling system. Instructed to call if problems arise. Reminder placed in scheduling system I am documenting this encounter acting as the scribe for and in the presence of Dr. Jackson.: Emani Estevez, KRYSTA Talavera, Patrick Welsh, have performed the documentation for this encounter in the presence of and acting as a scribe for RIGOBERTO JACKSON III, MD. I performed the above scribed service and agree with the accuracy of the documentation in this encounter. Rigoberto Jackson MD Section of Dermatology [facility] documented in this encounter Plan of Treatment Upcoming Encounters Date Type Specialty Care Team Description 10/11/2022 Office Visit Dermatology Virgilio Mckeon MD [facility] DR CHRISTIANO HENSON-DERMAT OLOGY [place], [place] [address] (Wo rk) 10/16/2022 Office Visit Otolaryngology Frank Buchanan MD [facility] OTOLARYNGOLOGY Sarah EPT. [place], [place] [address] (Wo rk) 11/29/2022 Appointment Hematology and Oncology 11/29/2022 Office Visit Radiation Oncology Emerald Leyva APRN [facility] RADIATION ONCOLO GY [place], [place] [address] (Wo rk) documented as of this encounter Visit Diagnoses Diagnosis Seborrheic keratosis Other seborrheic keratosis History of basal cell carcinoma Personal history of other malignant neop lasm of skin Skin exam for malignant neoplasm Screening for malignant neoplasm of the skin documented in this encounter Care Teams Wholesale Parts Salesperson Relationship Specialty Start Date End Date Giorgio Cardona MD PCP - General General Internal Medicine 11/29/17 0 [facility] GENERAL [place] [address] documented as of this encounter
--- OUTSIDE RECORDS SUMMARY | 2022-10-09 16:14 | XMS_ITS | Encounter Summary ---
:1940 Author Organization [facility] [place] [address] Care Team Providers Name Role Phone Unavailable Primary Care Provider Unavailable Encounter Details Date Type Department Care Team Description 10/05/2017 Telephone Thoracic Surgery at [facility] [place] [address] Social History Tobacco Use Types Packs/Day Years Used Date Smoking Tobacco: Never Smokeless Tobacco: Never Alcohol Use Standard Drinks/Week Comments Yes 0 (1 standard drink = 0.6 oz pure alcoho l) RARE Sex Assigned at Date Recorded Not on file documented as of this encounter Miscellaneous Notes Telephone Encounter - Melissa Gutierrez - 10/05/2017 8:48 AM EST VM left for Alfredito to call back to schedule f/u with [place] with CT prior documented in this encounter Plan of Treatment Upcoming Encounters Date Type Specialty Care Team Description 10/11/2022 Office Visit Dermatology Virgilio Mckeon MD [facility] ER DR CHRISTIANO HENSON-DERMAT OLOGY [place], [place] [address] (Wo rk) 10/16/2022 Office Visit Otolaryngology Frank Buchanan MD [facility] OTOLARYNGOLOGY Sarah EPT. [place], [place] [address] (Wo rk) 11/29/2022 Appointment Hematology and Oncology 11/29/2022 Office Visit Radiation Oncology Emerald Leyva, SOLUTIONS MANAGER [facility] ER RADIATION ONCCESAR [place], [place] [address] (Wo rk) documented as of this encounter Visit Diagnoses Not on filedocumented in this encounter
--- OUTSIDE RECORDS SUMMARY | 2022-10-09 16:14 | XMS_ITS | Encounter Summary ---
:1940 Author Organization [facility] [place] [address] Care Team Providers Name Role Phone Giorgio Cardona MD Primary Care Provider Reason for Visit Reason Comments Cough blood X 2-3 days ago only th e one time Other pt states he is having to us e laxitives daily. Encounter Details Date Type Department Care Team Description 12/20/2017 Office Visit Internal Medicine at Deandre Cardona MD Vocal cord paralysis; [facility] Anxiety; [facility] DR Acute constipation [facility] GENERAL INTERNAL [place], [place] MEDICINE [address] [place] [address] [phone] Social History Tobacco Use Types Packs/Day Years Used Date Smoking Tobacco: Never Smokeless Tobacco: Never Alcohol Use Standard Drinks/Week Comments Yes 0 (1 standard drink = 0.6 oz pure alcoho l) RARE Sex Assigned at Date Recorded Not on file documented as of this encounter Last Filed Vital Signs Vital Sign Reading Time Taken Comments Blood Pressure 106/54 12/20/2017 10:56 AM EST Pulse 56 12/20/2017 10:56 AM EST Temperature 36.4 ??C (97.5 ??F) 12/20/2017 10:56 AM EST Respiratory Rate 16 12/20/2017 10:56 AM EST Oxygen Saturation 96% 12/20/2017 10:56 AM EST Inhaled Oxygen Concentration - - Weight 66 kg (145 lb 7.2 oz) 12/20/2017 10:56 AM EST Height - - Body Mass Index 25.61 11/29/2017 8:18 AM EST documented in this encounter Patient Instructions Patient InstructionsBaGiorgio luciano MD - 12/20/2017 11:30 AM EST Take prilosec two 20mg tablets in the morning before breakfast, 30 minutes before food Instead of the mylanta I want you to take the miralax, 1 cupful daily. documented in this encounter Progress Notes Giorgio Cardona MD - 12/20/2017 11:30 AM EST Established Patient ACUTE Visit History of Presenting Illness: Patient here to followup on acute issues Patient PCP - Giorgio Cardona MD Throat is sore in the morning Not taking miralax - taking mylanta - taking it once daily at this time. Lots of gas Not using omeprazole at this time. He is self-adjusting medications Has sinus issues - Coughing has come to a halt at this time. He feels that he was sick. 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 Eats a late dinner currently. Still having a lot of nervousness Has a longstanding history of constipation. Patient reported measures in the past 7 days Pain:1 Physical Health:Good Mental Health: Patient Active Problem List Diagnosis [...] features. 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 [id number]; KRAS negative, EGFR negative --09/2010: CT scan - normal --02/2011: CT scan --09/2011: CT scan - negative annual CT's afterwards Outpatient Encounter Prescriptions as of 12/20/2017 Medication Sig Dispense Refill ??? omeprazole (PRILOSEC) 20 mg Capsule, Delayed Release(E.C.) Take 1 capsule by mouth 2 times daily. ??? potassium chloride (K-DUR/KLOR-CON) 10 mEq [...] mouth every morning. 30 tablet 12 ??? polyethylene glycol (MIRALAX) 17 gram Powder in Packet Take 17 g by mouth daily. No facility-administered encounter medications on file as of 12/20/2017. Social History Social History ??? Marital status: Single Spouse name: N/A ??? Number of children: N/A ??? Years of education: N/A Social History Main Topics ??? Smoking status: Never Smoker ??? Smokeless tobacco: Never Used ??? Alcohol use Yes Comment: RARE ??? Drug use: No ??? Sexual activity: Not Asked Other Topics Concern ??? None Social History Narrative Review of systems: Constitutional - (- ) fevers (- ) [...] at rest or with movement Objective Vitals: 12/20/17 1056 BP: 106/54 BP Location (NBP): Right arm Patient Position: Sitting BP Cuff Sizes: Adult (25-34 cm) Pulse: 56 Resp: 16 Temp: 36.4 ??C (97.5 ??F) TempSrc: Oral SpO2: 96% Weight: 66 kg (145 lb 7.2 oz) Gen -no acute distress. Alert, responsive and comfortable Neurological - grossly normal Gait: grossly intact with normal stride length, speed, and arm swing Assessment/Plan: 1. Vocal cord paralysis 2. Anxiety 3. Acute constipation Colonoscopy needs scheduling but declines - will think about it. Plan as below Needs anxiety managed but declines Patient Instructions: Patient Instructions Take prilosec two 20mg tablets in the morning before breakfast, 30 minutes before food Instead of the mylanta I want you to take the miralax, 1 cupful daily. I counselled the patient on the above [...] by one of my nurses, letter, or [facility]. Next Appointment: No Follow-up on file. Total time: 25 Minutes, 15 Of the visit time was spent in [id number] counselling of the above issues documented in this encounter Plan of Treatment Upcoming Encounters Date Type Specialty Care Team Description 10/11/2022 Office Visit Dermatology Virgilio Mckeon MD [facility] DR CHRISTIANO HENSON-DERMAT OLOGY [place], [place] [address] (Wo rk) 10/16/2022 Office Visit Otolaryngology Frank Buchanan MD [facility] OTOLARYNGOLOGY Sarah EPT. [place], [place] [address] (Wo rk) 11/29/2022 Appointment Hematology and Oncology 11/29/2022 Office Visit Radiation Oncology Emerald Leyva APRN [facility] RADIATION ONCOLO GY [place], [place] [address] (Wo rk) documented as of this encounter Visit Diagnoses Diagnosis Vocal cord paralysis Paralysis of vocal cords or larynx, unsp ecified Anxiety Anxiety state, unspecified Acute constipation Unspecified constipation documented in this encounter Care Teams Feather Trimmer Relationship Specialty Start Date End Date Giorgio Cardona MD PCP - General General Internal Medicine 11/29/17 0 [facility] [place] [address] documented as of this encounter
--- OUTSIDE RECORDS SUMMARY | 2022-10-09 16:14 | XMS_ITS | Encounter Summary ---
:1940 Author Organization [facility] [place] [address] Care Team Providers Name Role Phone Giorgio Cardona MD Primary Care Provider Reason for Referral Diagnostic Test (Routine) - Closed Specialty Diagnoses / Procedures Referred By Contact Refer red To Contact Radiology Diagnoses Malignant neoplasm of hilus of lung, unspecified laterality Giorgio Cardona MD [facility] Rad Ct Scan Procedures CT Chest wo Contrast (Generic) [facility] [place], [place] [phone] [place] [address] Referral ID Status Reason Start Date Expiration Date Visits V isits Requested Authorized [id number] Closed Specialty 05/16/2019 05/15/2020 1 1 Service Requested Reason for Visit Diagnostic Test (Routine) - Closed Specialty Diagnoses / Procedures Referred By Contact Refer red To Contact Radiology Diagnoses Malignant neoplasm of hilus of lung, unspecified laterality Giorgio Cardona MD [facility] Rad Ct Scan Procedures CT Chest wo Contrast (Generic) [facility] [place], [place] [phone] [place] [address] Referral ID Status Reason Start Date Expiration Date Visits V isits Requested Authorized [id number] Closed Specialty 05/16/2019 05/15/2020 1 1 Service Requested Encounter Details Date Type Department Care Team Description 05/21/[address] [place] [facility] [place] Cardona, Malignant neoplasm [facility] MD shaikh hilus of lung, [facility] [place], [place] [address] GENERAL INTERNAL [phone] MEDICINE [place], [place] [address] Social History Tobacco Use Types [...] Virgilio Mckeon MD [facility] DR CHRISTIANO HENSON-DERMAT OLOGY [place], [place] [address] (Wo rk) 10/16/2022 Office Visit Otolaryngology Frank Buchanan MD [facility] OTOLARYNGOLOGY Sarah EPT. [place], [place] [address] (Wo rk) 11/29/2022 Appointment Hematology and Oncology 11/29/2022 Office Visit Radiation Oncology Emerald Leyva APRN [facility] RADIATION ONCOLO GY [place], [place] [address] (Wo rk) documented as of this encounter Procedures Procedure Name Priority Date/Time Associated Diagnosis Comme nts CT CHEST WO Routine 05/21/2019 2:39 PM Malignant neoplasm Res ults for this CONTRAST (GENERIC) EDT of hilus of lung, proc edure are in unspecified the results laterality section. documented in this encounter Results CT [...] laterality documented in this encounter Care Teams Hammersmith Helper Relationship Specialty Start Date End Date Giorgio Cardona MD PCP - General General Internal Medicine 11/29/17 0 [facility] GENERAL [place] [address] documented as of this encounter
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
--- OUTSIDE RECORDS SUMMARY | 2022-10-09 16:14 | XMS_ITS | Encounter Summary ---
:1940 Author Organization [facility] [place] [address] Care Team Providers Name Role Phone Giorgio Cardona MD Primary Care Provider Encounter Details Date Type Department Care Team Description 03/22/2017 Telephone Internal Medicine at [facility] [place] [address] Social History Tobacco Use Types Packs/Day Years Used Date Smoking Tobacco: Never Smokeless Tobacco: Never Alcohol Use Standard Drinks/Week Comments Yes 0 (1 standard drink = 0.6 oz pure alcoho l) RARE Sex Assigned at Date Recorded Not on file documented as of this encounter Miscellaneous Notes Telephone Encounter - Melody Almazan LPN - 03/26/2017 11:10 AM EDT See Telephone note from Ish Flanagan RN dated today. Telephone Encounter - Melody Almazan LPN - 03/22/2017 10:58 AM EDT Left message for pt to return call to the office. Per Dr. Brendan JASSO from 03/22/17 continue with inhaler. Reviewed CXR after visit - does not appear to be pneumonia - will start on prednisone 40mg x 3 d, 30mg x 3d, 20mg x 3d, 10mg x 3d, then stop ?? documented in this encounter Plan of Treatment Upcoming Encounters Date Type Specialty Care Team Description 10/11/2022 Office Visit Dermatology Virgilio Mckeon MD [facility] DR CHRISTIANO HENSON-DERMAT OLOGY [place], [place] [address] (Wo rk) 10/16/2022 Office Visit Otolaryngology Frank Buchanan MD [facility] OTOLARYNGOLOGY Sarah EPT. [place], [place] [address] (Wo rk) 11/29/2022 Appointment Hematology and Oncology 11/29/2022 Office Visit Radiation Oncology Emerald Leyva APRN [facility] RADIATION ONCOLO GY [place], [place] [address] (Wo rk) documented as of this encounter Visit Diagnoses Not on filedocumented in this encounter Care Teams Bilingual Inside Sales Representative Relationship Specialty Start Date End Date Giorgio Cardona MD PCP - General 10/04/10 04/10/17 [facility] [place] [address] documented as of this encounter
--- OUTSIDE RECORDS SUMMARY | 2022-10-09 16:14 | XMS_ITS | Encounter Summary ---
:1940 Author Organization [facility] [place] [address] Care Team Providers Name Role Phone Arabella Rob MD Primary Care Provider Reason for Visit Reason Comments Other pt has questions for Dr. Kern Encounter Details Date Type Department Care Team Description 10/22/2018 Office Visit Internal Medicine at Deandre Rob MD Testicular pain; [facility] Preventative health care [facility] DR Pereira GENERAL INTERNAL [place], [place] MEDICINE [address] [place] [address] [phone] Social History Tobacco Use Types Packs/Day Years Used Date Smoking Tobacco: Never Smokeless Tobacco: Never Alcohol Use Standard Drinks/Week Comments Yes 0 (1 standard drink = 0.6 oz pure alcoho l) RARE Sex Assigned at Date Recorded Not on file documented as of this encounter Last Filed Vital Signs Vital Sign Reading Time Taken Comments Blood Pressure 123/70 10/22/2018 8:30 AM EST Pulse 51 10/22/2018 8:30 AM EST Temperature 36.8 ??C (98.2 ??F) 10/22/2018 8:30 AM EST Respiratory Rate 16 10/22/2018 8:30 AM EST Oxygen Saturation 100% 10/22/2018 8:30 AM EST Inhaled Oxygen Concentration - - Weight 64.9 kg (143 lb) 10/22/2018 8:30 AM with sneaker s on EST Height - - Body Mass Index 24.12 10/11/2018 9:17 AM EST documented in this encounter Progress Notes Arabella Rob MD - 10/22/2018 8:15 AM EST Established Patient ACUTE Visit History of Presenting Illness: Patient here to followup on acute issues Patient PCP - Arabella Rob MD Testicle - there is a bunch on that. Has had it for 10 years. Once in a while it hurts at this time. Does not bother him going to the bathroom - ? The cord - hurts considerably for hernia Left side hurts - does not hurt all the time. Anytime push it hurts - been there since hernia operation. No fevers or chills, no blood from orofice US in 2013 - reviewed outside records. Tubular ectasia and left hydrocele Patient reported measures in the past 7 [...] features. 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 [id number]; KRAS negative, EGFR negative --09/2010: CT scan - normal --02/2011: CT scan --09/2011: CT scan - negative annual CT's afterwards Outpatient Encounter Medications as of 10/22/2018 Medication Sig Dispense Refill ??? atenolol (TENORMIN) [...] tablet by mouth daily.30 tablet 11 ??? omeprazole (PRILOSEC) 20 mg Capsule, Delayed Release(E.C.) Take 1 capsule by mouth 2 times daily. (Patient not taking: Reported on 10/22/2018) 180 capsule 3 No facility-administered encounter medications on file as of 10/22/2018. Social History Socioeconomic History ??? Marital status: Single Spouse name: None ??? Number of children: None ??? Years of education: None ??? Highest education level: None Social Needs ??? Financial resource strain: None ??? Food insecurity - worry: None ??? Food insecurity - inability: None ??? Transportation needs - medical: None ??? Transportation needs - non-medical: None Occupational History ??? None Tobacco Use ??? Smoking status: Never Smoker ??? Smokeless tobacco: Never Used Substance and Sexual Activity ??? Alcohol use: Yes Comment: RARE ??? Drug use: No ??? Sexual activity: None Other Topics Concern ??? None Social History Narrative ??? None Review of systems: Constitutional - (- ) [...] stool Genitourinary - (- ) abnormal discharge (+ ) lumps, masses or nodules ( -) nocturia, dysuria, polyuria Musculoskeletal - ( -) pain at rest or with movement Objective Vitals: 10/22/18 0830 BP: 123/70 BP Location (NBP): Right arm Patient Position: Sitting BP Cuff Sizes: Adult (25-34 cm) Pulse: 51 Resp: 16 Temp: 36.8 ??C (98.2 ??F) TempSrc: Oral SpO2: 100% Weight: 64.9 kg (143 lb) Gen -no acute distress. Alert, responsive and comfortable HEENT - oropharynx moist without lesions - testicular Tenderness in the left testes. No visible lesions at this time. No hernias Skin - No rashes, lesions, plaques, nodules Neurological - grossly normal Gait: grossly intact with normal stride length, speed, and arm swing Assessment/Plan: # Testicular Pain # Ectasia # Hydrocele Suggest since it barely bothers him that conservative management needed. We discussed repeating - this may not show anything different and that conservative management wouldbe the manner in pursuing at this time. # Screening Requesting hemoccult testing - declines colonoscopy at this time I counselled the patient on the above [...] by one of my nurses, letter, or [facility]. Next Appointment: Return if symptoms worsen or fail to improve. documented in this encounter Miscellaneous Notes Addendum Note - Arabella Rob MD - 10/22/2018 8:15 AM EST Addended by: ARABELLA ROB on: 10/22/2018 09:00 AM Modules accepted: Orders documented in this encounter Plan of Treatment Upcoming Encounters Date Type Specialty Care Team Description 10/11/2022 Office Visit Dermatology Virgilio Mckeon MD [facility] ER DR CHRISTIANO HENSON-DERMAT OLOGY [place], [place] [address] (Wo rk) 10/16/2022 Office Visit Otolaryngology Frank Buchanan MD [facility] OTOLARYNGOLOGY Sarah EPT. [place], [place] [address] (Wo rk) 11/29/2022 Appointment Hematology and Oncology 11/29/2022 Office Visit Radiation Oncology Emerald Leyva APRN [facility] RADIATION ONCOLO GY [place], [place] [address] ( rk) documented as of this encounter Results US Scrotum (10/24/2018 10:14 [...] 11:27 am) PATIENT INFO: ID #: ? [id number] ?: ??[birth year] (78 yrs) Name: ? KATLIN Rodriguez ?Visit Date: 10/24/2018 09:48 am ? RACQUEL PERFORMED BY: Performed By: ? Elisa ESTRELLA, ??Uvaldo real Attending: ?Mahad GALINDO, There J. Referred By: ?ARABELLA ROB Location: ? [place] SERVICE(S) PROVIDED: ??[facility] - Scrotum and Contents with Limit ed Vascular ?23283, [id number] ??evaluation - [id number] INDICATIONS: ??testicular pain - f/u hydrocele/ectas ia COMPARISON: Ultrasound: 09/27/11 RIGHT TESTICLE: Measurement(cm) ? L: ??4.67 ? [...] 10/24/2018 11:27 am) PATIENT INFO: ID #: [id number] : [birth year] (78 y rs) Name: KATLIN Rodriguez Visit Date: 10/24/2018 09:48 am RACQUEL PERFORMED BY: Performed By: Suzanna Pérez RDMS Attending: Catherine Tobin MD Referred By: ARABELLA ROB Location: [place] SERVICE(S) PROVIDED: [facility] - Scrotum and Contents with Limited Vascular 56522, [address]24 evaluation - [id number] INDICATIONS: testicular pain - f/u hydrocele/ectasia COMPARISON: [...] Unspecified disorder of male genital org ans Preventative health care Routine general medical examination at a health care facility Testicular pain Unspecified disorder of male genital org ans documented in this encounter Care Teams Manufacturer Agent Relationship Specialty Start Date End Date Arabella Rob MD PCP - General General Internal Medicine 11/29/17 0 [facility] [place] [address] documented as of this encounter
--- OUTSIDE RECORDS SUMMARY | 2022-10-09 16:14 | XMS_ITS | Encounter Summary ---
:1940 Author Organization [facility] [place] [address] Care Team Providers Name Role Phone Unavailable Primary Care Provider Unavailable Reason for Referral Diagnostic Test (Routine) - Closed Specialty Diagnoses / Procedures Referred By Contact Refer red To Contact Radiology Diagnoses Encounter for follow-up surveillance of lung cancer [facility] [address] [place] [address] Chest wo Contrast (Generic) [place] [address] [place] [address] Phone: Referral ID Status Reason Start Date Expiration Date Visits V isits Requested Authorized [id number] Closed Specialty 10/05/2017 10/05/2018 1 1 Service Requested Encounter Details Date Type Department Care Team Description 10/05/2017 Orders Only Thoracic Surgery at Sadaf Mitchell RN Enc ounter for follow-up [facility] [place] [address] Social History Tobacco Use Types Packs/Day [...] [facility] DR CHRISTIANO HENSON-DERMAT OLOGY [place], [place] [address] (Wo rk) 10/16/2022 Office Visit Otolaryngology Frank Buchanan MD [facility] OTOLARYNGOLOGY Sarah EPT. [place], [place] [address] (Wo rk) 11/29/2022 Appointment Hematology and Oncology 11/29/2022 Office Visit Radiation Oncology Emerald Leyva APRN [facility] RADIATION ONCOLO GY [place], [place] [address] (Wo rk) documented as of this encounter Results CT Chest wo Contrast (Generic) (11/29/2017 10:45 AM EST) Anatomical Region Laterality Modality Chest Computed Tomography Specimen (Source) Anatomical Location Collection Method / Collectio n Time Received Time / Laterality Volume Impressions 11/29/2017 12:09 PM EST Impression: Stable post right lower lobectomy appear ance of the chest without evidence of new or recurrent disease. 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 Multiplanar reformatted images were reviewed. COMPARISON: Chest CT 09/04/2016 FINDINGS: Lungs and airways: There are stable post surgical changes status post right lower lobectomy. Similar appearance of t he small groundglass opacity at the posterior right upper lobe (series 4, im age 87), likely reflecting a small area of scarring. No pulmonary nodules. Minim al linear atelectasis in the left lung base. The central airways are patent. Pleura and pericardium: No pleural or pe ricardial effusion. Stable pleural thickening in the posteromedial right lo wer thorax. Heart and vasculature: The heart is norm al in size. Scattered moderate coronary artery calcifications. Mitral valve pros thesis is present. Incidentally noted small accessory hemiazygos vein, which d rains into the left brachiocephalic vein. Mediastinum and hilar structures: No lym phadenopathy. Limited evaluation of the upper abdomina l organs secondary to the lack of intravenous contrast. There is a small h iatal hernia. Unchanged 3 cm left adrenal adenoma. Unchanged cysts in the visualized portions of the bilateral kidneys. Osseous structure: No focal lytic or scl erotic osseous lesion. Procedure Note BlackKaushik MD - 11/29/2017Formatt ing of this note might be different from the original. 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 Multiplanar reformatted images were reviewed. COMPARISON: Chest CT 09/04/2016 FINDINGS: Lungs and airways: There are stable post surgical changes status post right lower lobectomy. Similar appearance of t he small groundglass opacity at the posterior right upper lobe (series 4, im age 87), likely reflecting a small area of scarring. No pulmonary nodules. Minim al linear atelectasis in the left lung base. The central airways are patent. Pleura and pericardium: No pleural or pe ricardial effusion. Stable pleural thickening in the posteromedial right lo wer thorax. Heart and vasculature: The heart is norm al in size. Scattered moderate coronary artery calcifications. Mitral valve pros thesis is present. Incidentally noted small accessory hemiazygos vein, which d rains into the left brachiocephalic vein. Mediastinum and hilar structures: No lym phadenopathy. Limited evaluation of the upper abdomina l organs secondary to the lack of intravenous contrast. There is a small h iatal hernia. Unchanged 3 cm left adrenal adenoma. Unchanged cysts in the visualized portions of the bilateral kidneys. Osseous structure: No focal lytic or scl erotic osseous lesion. IMPRESSION Impression: Stable post right lower lobectomy appear ance of the chest without evidence of new or recurrent disease. I have personally reviewed the image(s) and the residents interpretation and agree with the findings, Kaushik guerrero 11/29/2017 12:09 PM Dexter Cote MD IMG CT ORDERABLES documented in this encounter Visit Diagnoses Diagnosis Encounter for follow-up surveillance of lung cancer Unspecified follow-up examination Encounter for follow-up surveillance of lung cancer Unspecified follow-up examination documented in this encounter
--- OUTSIDE RECORDS SUMMARY | 2022-10-09 16:14 | XMS_ITS | Encounter Summary ---
:1940 Author Organization [facility] [place] [address] Care Team Providers Name Role Phone Giorgio Cardona MD Primary Care Provider Encounter Details Date Type Department Care Team Description 03/22/2017 Telephone Internal Medicine [place] [facility] [place], [place] [address] Social History Tobacco Use Types Packs/Day Years Used Date Smoking Tobacco: Never Smokeless Tobacco: Never Alcohol Use Standard Drinks/Week Comments Yes 0 (1 standard drink = 0.6 oz pure alcoho l) RARE Sex Assigned at Date Recorded Not on file documented as of this encounter Miscellaneous Notes Telephone Encounter - Chrissy Issa RN - 03/22/2017 3:46 PM EDT Alfredito calling back. Read the following information to Alfredito: Per Dr. Brendan JASSO from 03/22/17 continue with inhaler. Reviewed CXR after visit - does not appear to be pneumonia - will start on prednisone 40mg x 3 d, 30mg x 3d, 20mg x 3d, 10mg x 3d, then stop Alfredito verbalized understanding and will machine pecan picker medication at [facility]. documented in this encounter Plan of Treatment Upcoming Encounters Date Type Specialty Care Team Description 10/11/2022 Office Visit Dermatology Virgilio Mckeon MD [facility] DR [address]VAR[address]O RD-DERMAT OLOGY [place], [place] [address] (Wo rk) 10/16/2022 Office Visit Otolaryngology Frank Buchanan MD [facility] OTOLARYNGOLOGY Sarah EPT. [place], [place] [address] (Wo rk) 11/29/2022 Appointment Hematology and Oncology 11/29/2022 Office Visit Radiation Oncology Emerald Leyva APRN [facility] RADIATION ONCOLO GY [place], [place] [address] (Wo rk) documented as of this encounter Visit Diagnoses Not on filedocumented in this encounter Care Teams Canvas Baster Jumpbasting Relationship Specialty Start Date End Date Giorgio Cardona MD PCP - General 10/04/10 04/10/17 [facility] GENERAL [place] [address] documented as of this encounter
--- OUTSIDE RECORDS SUMMARY | 2022-10-09 16:14 | XMS_ITS | Encounter Summary ---
:1940 Author Organization [facility] [place] [address] Care Team Providers Name Role Phone Giorgio Cardona MD Primary Care Provider Encounter Details Date Type Department Care Team Description 07/10/2018 Telephone [place] Medicine [place] [facility] [place] [address] Social History Tobacco Use Types Packs/Day Years Used Date Smoking Tobacco: Never Smokeless Tobacco: Never Alcohol Use Standard Drinks/Week Comments Yes 0 (1 standard drink = 0.6 oz pure alcoho l) RARE Sex Assigned at Date Recorded Not on file documented as of this encounter Miscellaneous Notes Telephone Encounter - Christa Mckeon CMA - 07/10/2018 3:24 PM EDT LM for pt asking him to come in prior to appointment to have labs drawn. documented in this encounter Plan of Treatment Upcoming Encounters Date Type Specialty Care Team Description 10/11/2022 Office Visit Dermatology Virgilio Mckeon MD [facility] ER DR CHRISTIANO HENSON-DERMAT [place], [place] [address] (Wo rk) 10/16/2022 Office Visit Otolaryngology Frank Buchanan MD [facility] ER OTOLARYNGOLOGY D EPT. [place], [place] [address] (Wo rk) 11/29/2022 Appointment Hematology and Oncology 11/29/2022 Office Visit Radiation Oncology Emerald Leyva APRN [facility] RADIATION ONCOLO GY [place], [place] [address] (Wo rk) documented as of this encounter Results Lipid Panel (07/11/2018 10:21 AM EDT) athologist Signature Chol, Total 176 mg/dL [facility] Comment: Lower Risk: <200 mg/dL Average Risk: 200-239 mg/dL Higher Risk: >xn=528 mg/dL Triglycerides 56 mg/dL [facility] Comment: Average Risk/Lower Risk: <150 mg/dL Borderline High Risk: 150-199 mg/dL High Risk: 200-499 mg/dL Very High Risk: >us=481 mg/dL HDL 66 mg/dL [facility] Comment: Males: ?? Higher Risk: <40 mg/dL Females: ?? HIgher Risk: <50 mg/dL LDL Cholesterol 99 mg/dL [facility] Comment: Lowest Risk: <100 mg/dL Lower Risk: 100-129 mg/dL Borderline High Risk: 130-159 mg/dL High Risk: 160-189 mg/dL Very High Risk: >ll=016 mg/dL Chol/HDL Ratio 2.7 ratio [facility] Lipid Interpretation See Note [facility] Comment: Lipid management should be guided by a p atient? s ASCVD risk, goals and preferences. ACC/AHA Guidelines recommend high intens ity statin if clinical ASCVD or LDL greater than or equal to 190 mg/dL. http://[email or web address]/AIB-TMN-Dvysivnwt Adults aged 40-75 with LDL 70-189 mg/dL should have their 10 year ASCVD risk estimated with the ACC/AHA ASCVD risk es timator http://tools.acc.org/BUUAU-Koni-Mmhctvhh r/ Statin should be discussed if risk [...] Location / / Volume Laterality Blood specimen 07/11/2018 10:21 8 (specimen) AM EDT 10:27 AM EDT Resulting Agency Comment Spec In Lab Giorgio Cardona MD CHEMISTRY ORDERABLES Performing Organization Address City/[facility]/ZIP Code Phon e Number [address] T4, free (07/11/2018 10:21 AM EDT) P athologist Signature Free T4 1.64 0.93 - 1.70 ARCELIA MARROQUINCOCK ng/dL [facility] Specimen Anatomical Collection Method Collection Time Receive d Time (Source) Location / / Volume Laterality Blood specimen 07/11/2018 10:21 8 (specimen) AM EDT 10:27 AM EDT Resulting Agency Comment Spec In Lab Giorgio Cardona MD CHEMISTRY ORDERABLES Performing Organization Address City/[facility]/ZIP Code Phon e Number [address] TSH (07/11/2018 10:21 AM EDT) P athologist Signature TSH 0.55 0.27 - 4.20 ARCELIA PIEDAD mlU/ML [facility] Specimen Anatomical Collection Method Collection Time Receive d Time (Source) Location / / Volume Laterality Blood specimen 07/11/2018 10:21 8 (specimen) AM EDT 10:27 AM EDT Resulting Agency Comment Spec In Lab Giorgio Cardona MD CHEMISTRY ORDERABLES Performing Organization Address City/[facility]/[place] [address] Vitamin D, 25-Hydroxy (07/11/2018 10:21 AM EDT) athologist Signature 25-OH Vit D 34 30 - 100 ARCELIA OLIVACK Total ng/mL [facility] Comment: Deficient <10 ng/mL Insufficient 10 to 29 ng/mL Sufficient 30 to 100 ng/mL Potential Intoxication >100 ng/mL According to the [place] National Osteoporosi s Foundation, Vitamin D concentrations >30 ng/mL are sufficient to protect bone health. ??The National Kidney Foundation has similarly stated that pat ients with Vitamin D concentrations <30ng/mL should be considered to be insu fficient or deficient. http://[employer]Funinhand/nkf-guidelines http://BiancaMed/nejm-VitD The IDS i[employer] Vitamin D Immunoassay detec ts both 25-OH Vitamin D2 and 25-OH Vitamin D3, but only a total Vitamin D c oncentration is reported. Specimen Anatomical Collection Method Collection Time Receive d Time (Source) Location / / Volume Laterality Blood specimen 07/11/2018 10:21 8 (specimen) AM EDT 11:14 AM EDT Resulting Agency Comment Spec In Lab Giorgio Cardona MD CHEMISTRY ORDERABLES Performing Organization Address City/State/ZIP Code Phon e Number [address] Vitamin B12 (07/11/2018 10:21 AM EDT) athologist Signature Vitamin B-12 346 232 - 1,245 ARCELIA HERBERT pg/mL [facility] Comment: Please note: Effective 10/10/2017, the r eference interval and the lower limit of detection for Vitamin B12 have been u pdated due to a new reagent formulation. Specimen Anatomical Collection Method Collection Time Receive d Time (Source) Location / / Volume Laterality Blood specimen 07/11/2018 10:21 8 (specimen) AM EDT 10:27 AM EDT Resulting Agency Comment Spec In Lab Giorgio Cardona MD CHEMISTRY ORDERABLES Performing Organization Address City/State/ZIP Code Phon e Number [address] Folate, serum (07/11/2018 10:21 AM EDT) P athologist Signature Folate Lvl 15.6 4.8 - 24.2 [facility] Specimen Anatomical Collection Method Collection Time Receive d Time (Source) Location / / Volume Laterality Blood specimen 07/11/2018 10:21 201 8 (specimen) AM EDT 10:27 AM EDT Resulting Agency Comment Spec In Lab Giorgio Cardona MD CHEMISTRY ORDERABLES Performing Organization Address City/State/[place] [address] (ABNORMAL) Hemoglobin A1c (07/11/2018 10:21 AM EDT) Analysis Performed At Patho logist Time Signature Hemoglobin A1C 5.9 (H) 4.3 - 5.6 [facility] Comment: Reference Range: 4.3 - [...] Mellitus, Diabetes Care 2013; 36: Suppl. 1, B73-44 Est Avg Gluc See note mg/dL [facility] Comment: Estimated Average Glucose not [...] with hemoglobinopathies. Additional resources are available on [facility] website. Eliot FAJARDO, Abhishek J, Denisse R, et al. ??Tr anslating the A1C assay into estimated average glucose values. ??Diabetes Care 2008:31(8):8136-6357. Specimen Anatomical Collection Method Collection Time Receive d Time (Source) Location / / Volume Laterality Blood specimen 07/11/2018 10:21 8 (specimen) AM EDT 10:27 AM EDT Resulting Agency Comment Spec In Lab Giorgio Cardona MD CHEMISTRY ORDERABLES Performing Organization Address City/State/[place] [address] (ABNORMAL) Comprehensive metabolic panel (non-fasting) (07/11/2018 10:21 AM EDT) P athologist Signature Glucose Lvl 102 65 - 199 [facility] mg/dL [facility] Comment: Diabetes: >=200 mg/dL plus symp toms BUN 20 10 - 20 mg/dL [facility] Creatinine 0.99 0.80 - 1.50 mg/dL [facility] Sodium 140 135 - 145 mmol/L [facility] Potassium 4.4 3.5 - 5.0 mmol/L [facility] Comment: Please note: ??Patients with WBC >100,00 0 may have falsely elevated Potassium levels. ??For accurate Potassium quantif ication in these patients send serum separator tube (gold top) for subsequent determinations. ??Contact the Clinical Chemistry Laboratory if there are any qu estions. Chloride 104 98 - 107 mmol/L [facility] CO2 24 22 - 31 mmol/L [facility] Anion Gap 12 5 - 15 mmol/L [facility] Calcium 8.4 (L) 8.5 - 10.5 mg/dL [facility] Total Protein 6.5 6.1 - 8.0 gm/dL [facility] Albumin 3.8 3.2 - 5.2 gm/dL [facility] AST 35 0 - 39 unit/L [facility] ALT 18 0 - 55 unit/L [facility] Alk Phos 74 40 - 120 unit/L [facility] Total Bilirubin 0.7 0.2 - 1.3 mg/dL [facility] Estimated GFR 72 >=60 mL/min/1.73 m?? [facility] Comment: The eGFR was calculated using the CKD-EP I equation. As with all creatinine based estimates of kidney function, eGFR values calculated with the CKD-EPI equation are not accurate in patients wi th acute kidney failure, extremes of body mass or the acutely ill. http://BiancaMed/[facility] – MUSKOGEEnkf eGFR 83 >=60 mL/min/1.73 m?? [facility] Comment: The eGFR was calculated using the CKD-EP I equation. As with all creatinine based estimates of kidney function, eGFR values calculated with the CKD-EPI equation are not accurate in patients wi th acute kidney failure, extremes of body mass or the acutely ill. http://BiancaMed/[facility] – MUSKOGEEnkf Specimen Anatomical Collection Method Collection Time Receive d Time (Source) Location / / Volume Laterality Blood specimen 07/11/2018 10:21 8 (specimen) AM EDT 10:27 AM EDT Resulting Agency Comment Spec In Lab Giorgio Cardona MD CHEMISTRY ORDERABLES Performing Organization Address City/State/[place] [address] documented in this encounter Visit Diagnoses Diagnosis Essential hypertension Unspecified essential hypertension Vitamin D deficiency Unspecified vitamin D deficiency Impaired fasting glucose documented in this encounter Care Teams Stick Puller Relationship Specialty Start Date End Date Giorgio Cardona MD PCP - General General Internal Medicine 11/29/17 0 [facility] GENERAL [place] [address] documented as of this encounter
--- OUTSIDE RECORDS SUMMARY | 2022-10-09 16:14 | XMS_ITS | Encounter Summary ---
:1940 Author Organization [facility] [place] [address] Care Team Providers Name Role Phone Unavailable Primary Care Provider Unavailable Encounter Details Date Type Department Care Team Description 10/18/2017 Telephone Thoracic Surgery at [facility] [place] [address] Social History Tobacco Use Types Packs/Day Years Used Date Smoking Tobacco: Never Smokeless Tobacco: Never Alcohol Use Standard Drinks/Week Comments Yes 0 (1 standard drink = 0.6 oz pure alcoho l) RARE Sex Assigned at Date Recorded Not on file documented as of this encounter Miscellaneous Notes Telephone Encounter - Janee Dodge LNA - 10/18/2017 9:21 AM EST Message left to return call to schedule follow up appointment with Dr. Cote documented in this encounter Plan of Treatment Upcoming Encounters Date Type Specialty Care Team Description 10/11/2022 Office Visit Dermatology Virgilio Mckeon MD [facility] DR CHRISTIANO HENSON-DERMAT OLOGY [place], [place] [address] (Wo rk) 10/16/2022 Office Visit Otolaryngology Frank Buchanan MD [facility] OTOLARYNGOLOGY D EPT. [place], [place] [address] (Leroy bhatia) 11/29/2022 Appointment Hematology and Oncology 11/29/2022 Office Visit Radiation Oncology Emerald Leyva, NET DEVELOPER WITH [facility] ER RADIATION ONCCESAR [place], [place] [address] (Leroy bhatia) documented as of this encounter Visit Diagnoses Not on filedocumented in this encounter
--- OUTSIDE RECORDS SUMMARY | 2022-10-09 16:14 | XMS_ITS | Encounter Summary ---
:1940 Author Organization [facility] [place] [address] Care Team Providers Name Role Phone Giorgio Cardona MD Primary Care Provider Reason for Visit Reason Comments URI Worsening since - est congestion, sputumn is yellow. has been losing weight and is concerned it m ay be related Encounter Details Date Type Department Care Team Description 05/13/2019 Office Visit Internal Medicine at [facility], Acute v iral bronchitis (Primary Dx[place] [facility]od Funes [place] SOB (shortness of breath) [facility] [place], [place] [phone] Social History Tobacco Use Types Packs/Day Years Used Date Smoking Tobacco: Never Smokeless Tobacco: Never Alcohol Use Standard Drinks/Week Comments Yes 0 (1 standard drink = 0.6 oz pure alcoho l) RARE Sex Assigned at Date Recorded Not on file documented as of this encounter Last Filed Vital Signs Vital Sign Reading Time Taken Comments Blood Pressure 125/61 05/13/2019 10:11 AM EDT Pulse 53 05/13/2019 10:11 AM EDT Temperature 36.7 ??C (98 ??F) 05/13/2019 10:11 AM EDT Respiratory Rate 22 05/13/2019 10:11 AM EDT Oxygen Saturation 96% 05/13/2019 10:11 AM EDT Inhaled Oxygen Concentration - - Weight 60.2 kg (132 lb 12.8 oz) 05/13/2019 10:11 AM EDT Height - - Body Mass Index 22.4 05/08/2019 4:08 PM EDT documented in this encounter Progress Notes Toña Kelly Suzette - 05/13/2019 10:30 AM EDT Subjective Alfredito Mina is a 78 y.o. male with a history of lung cancer who presents with a 2-week history of cough and cold symptoms. Alfredito has not been feeling well since returning from [place] 2 weeks ago. He has experienced coughing with green/yellow mucus, and SOB that is worse at night. He has also had watery eyes, runny nose,nasal congestion, pressure sensation in frontal sinus area, decreased appetite, and some mild muscleaches. He denies fever, chills, sore throat, ear pain/pressure, changes in hearing, or chest pain. He is feeling weaker than usual. He works in [employer], and has only been able to work 3 days in the past couple of weeks, because symptoms worsen while working and with exertion. When he called clinic yesterday, a nurse advised him to take Claritin and one other medication whose name he cannot remember, but these helped his SOB and he was able to sleep well last night. He sleeps with 2 pillows. No hx of cardiac disease. His voice is hoarse, but has been chronic since thyroidectomy in 2011. No n/v, diarrhea, blood in stool, heart palpitations. Lives alone. Girlfriend who traveled with him from [place] also came down with something, no other sick contacts. Past Medical History: Diagnosis Date ??? Arthritis knee replacement right ??? Aspiration into lower respiratory tract 05/06/2013 ??? Colon polyps ??? Difficulty in swallowing ??? Dry mouth ??? Dyslipidemia ??? GERD (gastroesophageal reflux disease) ??? Hypertension ??? Inguinal hernia left recurrent ??? Lung cancer ??? Multinodular goiter ??? Pancreatic cyst ??? Prostate cancer s/p XRT ??? Skin cancer 07/2013 squamous cell Medications 05/13/19 1010 Medication Sig Taking? atenolol (TENORMIN) 50 mg Tablet Take 0.5 tablets by mouth daily. Yes furosemide (LASIX) 20 mg Tablet Take 1 tablet by mouth daily. Yes terazosin (HYTRIN) 2 mg Capsule Take 1 capsule by mouth nightly. Yes levothyroxine (SYNTHROID) 125 mcg Tablet Take 1 tablet by mouth every morning. Yes omeprazole (PRILOSEC) 20 mg Capsule, Delayed Release(E.C.) Take 1 capsule by mouth 2 times daily. Yes polyethylene glycol (MIRALAX) 17 gram Powder in Packet Take 17 g by mouth daily. Yes potassium chloride (K-DUR/KLOR-CON) 10 mEq extended release tablet Take 1 tablet by mouth daily. Yes albuterol 90 mcg/actuation HFA Aerosol Inhaler Inhale 2 puffs into the lungs every 4 hours as neededfor Wheezing, Shortness of Breath or Cough. Use with spacer Has not taken omeprazole for 2 months. Takes Tums instead for heartburn, and watches what he eats. Objective Most Recent Vitals: 05/13/19 1011 BP: 125/61 Pulse: 53 Resp: 22 Temp: 36.7 ??C (98 ??F) SpO2: 96% Physical Exam Gen: Pleasant, elderly gentleman seated in NAD HEENT: Head: Normocephalic, atraumatic Eyes: Anicteric, no scleral injection Ears: TMs pearly parker with good light reflex bilaterally, no erythema Mouth: Oropharyngeal erythema, moist mucosa Neck: Neck supple, no cervical lymphadenopathy CV: RRR, no murmurs, rubs or gallops Pulm: Diffuse wheezes, rhonchi and crackles in RLL, normal work of breathing Abd: Soft, NTND, bowel sounds present, no masses or organomegaly Ext: 1+ edema in LEs bilaterally, no clubbing or cyanosis Assessment/Plan Alfredito Mina is a 78 y.o. male with a history of lung cancer who presents with a 2-week history of cough and SOB that has been improving. Given that symptoms have begun to improve, viral bronchitis is most likely, but diffuse wheezing and crackles/rhonchi in RLL of lung are concerning for pneum onia. Pt given Duoneb treatment in clinic and wheezing improved. #Cough and SOB -Albuterol 2 puffs q4h PRN -CXR today. If shows consolidation, consider antibiotics (levofloxacin) Kelly Ding, MS4 Jerod Spears MD - 05/13/2019 10:30 AM EDT This visit was performed jointly with student Kelly Ding The patient???s history was validated in the patient???s presence and is notable for shortness of breath for several weeks, productive cough, fatigue My exam includes the following: diffuse wheezing bilaterally, crackles in right lung base with some dullness to percussion. I personally reviewed all applicable documented studies and diagnostic images. The assessment and plan was formulated at my direction, in summary: Possible pneumonia vs acute bronchitis. Obtaining chest x-ray given symptoms and examination findings. Ipratropium-albuterol provided in office with less wheezing on auscultation post-nebulization. Ordered albuterol for home. Encouraged him to contact us if symptoms worsen. We will contact him regarding CXR findings and possible need for antibiotics. documented in this encounter Plan of Treatment Upcoming Encounters Date Type Specialty Care Team Description 10/11/2022 Office Visit Dermatology Virgilio Mckeon MD [facility] DR [facility] OLOGY [place], [place] [address] (Wo rk) 10/16/2022 Office Visit Otolaryngology Frank Buchanan MD [facility] OTOLARYNGOLOGY Sarah EPT. [place], [place] [address] (Wo rk) 11/29/2022 Appointment Hematology and Oncology 11/29/2022 Office Visit Radiation Oncology Emerald Leyva APRN [facility] RADIATION ONCCESAR GY [place], [place] [address] (Wo rk) documented as of this encounter Results XR Chest PA & [...] e number below. ? Electronically signed by: WLAT NEGRO [facility] ([phone]), at 05/13/2019 2:39 PM Narrative 05/13/2019 2:39 [...] the anterior longitudinal spinal ligament Procedure Note Walt Jarrett MD - 05/13/2019Format ting of this [...] this report, please contact e number below. Jerod Spears MD IMG DX ORDERABLES documented in this encounter Visit Diagnoses Diagnosis Acute viral bronchitis - Primary Acute bronchitis SOB (shortness of breath) Shortness of breath SOB (shortness of breath) Shortness of breath documented in this encounter Administered Medications Inactive Administered Medications - up to 3 most recent administrations Medication Order MAR Action Action Date Dose Rate Site ipratropium-albuterol (DUONEB) 0.5 Given 05/13/2019 11:03 AM EDT 3 mLs mg-3 mg(2.5 mg base)/3 mL nebulizer solution 3 mL 3 mL, Nebulization, ONCE, 1 dose, On Sun05/13/19 at 1115, Routine documented in this encounter Care Teams Elevator Builder Relationship Specialty Start Date End Date Giorgio Cardona MD PCP - General General Internal Medicine 11/29/[address] [facility] GENERAL [place] [address] documented as of this encounter
--- OUTSIDE RECORDS SUMMARY | 2022-10-09 16:14 | XMS_ITS | Encounter Summary ---
:1940 Author Organization [facility] [place] [address] Care Team Providers Name Role Phone Giorgio Cardona MD Primary Care Provider Reason for Referral Diagnostic Test (Routine) - Closed Specialty Diagnoses / Procedures Referred By Contact Refer red To Contact Radiology Diagnoses Encounter for follow-up surveillance of lung cancer [facility] Thoracic Surg [address] [place] [address] Chest wo Contrast (Generic) [place] [address] [place] [address] Phone: Referral ID Status Reason Start Date Expiration Date Visits V isits Requested Authorized [id number] Closed Specialty 10/05/2017 10/05/2018 1 1 Service Requested Reason for Visit Diagnostic Test (Routine) - Closed Specialty Diagnoses / Procedures Referred By Contact Refer red To Contact Radiology Diagnoses Encounter for follow-up surveillance of lung cancer [facility] Thoracic Surg [address] [place] [address] Chest wo Contrast (Generic) [place] [address] [place] [address] Phone: Referral ID Status Reason Start Date Expiration Date Visits V isits Requested Authorized [id number] Closed Specialty 10/05/2017 10/05/2018 1 1 Service Requested Encounter Details Date Type Department Care Team Description 11/29/[address] Scan at [facility], Encounter for [facility] Dexter Pugh MD follow-up Drive [facility] surveillance of lung [place], [place] [facility] cancer [phone] THORACIC SURGERY [phone] [place] [address] Social History Tobacco Use Types Packs/Day Years [...] 10/11/2022 Office Visit Dermatology Virgilio Mckeon MD [facility] DR [facility]LOG[facility] [place], [place] [address] (Wo rk) 10/16/2022 Office Visit Otolaryngology Frank Buchanan MD [facility] OTOLARYNGOLOGY Sarah EPT. [place], [place] [address] (Wo rk) 11/29/2022 Appointment Hematology and Oncology 11/29/2022 Office Visit Radiation Oncology Autumn Emerald PughROSITA [facility] RADIATION ONCCESAR GY [place], [place] [address] (Wo rk) documented as of this encounter Procedures Procedure Name Priority Date/Time Associated Diagnosis Comme nts CT CHEST WO Routine 11/29/2017 10:45 Encounter for Results fo r this CONTRAST (GENERIC) AM EST follow-up procedure are in surveillance of lung the res ults cancer section. documented in this encounter Results CT [...] or scl erotic osseous lesion. Procedure Note Kaushik Roberts MD - 11/29/2017Formatt ing of this note [...] examination documented in this encounter Care Teams Band Manager Relationship Specialty Start Date End Date Giorgio Cardona MD PCP - General General Internal Medicine 11/29/17 0 [facility] GENERAL [place] [address] documented as of this encounter
--- OUTSIDE RECORDS SUMMARY | 2022-10-09 16:14 | XMS_ITS | Encounter Summary ---
:1940 Author Organization [facility] [place] [address] Care Team Providers Name Role Phone Giorgio Cardona MD Primary Care Provider Encounter Details Date Type Department Care Team Description 07/11/2018 Laboratory Appointment Lab [address]L [facility] Malignant neoplasm of prostate; [facility] Essential hypertension; [facility] Impaired fasting glucose; [place] [id number] Social History Tobacco Use Types Packs/Day Years [...] Virgilio Mckeon MD [facility] DR CHRISTIANO HENSON-DERMAT OLOGY [place], [place] [address] (Wo rk) 10/16/2022 Office Visit Otolaryngology Frank Buchanan MD [facility] OTOLARYNGOLOGY Sarah EPT. [place], [place] 0[address] (Wo rk) 11/29/2022 Appointment Hematology and Oncology 11/29/2022 Office Visit Radiation Oncology Emerald Leyva, HOLD WORK[employer] [facility] RADIATION ONCCESAR RACHAEL [place], [place] [address] (Wo rk) documented as of this encounter Procedures Procedure Name Priority Date/Time Associated Diagnosis Comme nts HEMOGRAM Routine 07/11/2018 10:21 Essential Results for this AM EDT hypertension procedure are i n the results section. DIFFERENTIAL, Routine 07/11/2018 10:21 Essential Results fo r this AUTOMATED AM EDT hypertension procedure are i n the results section. IRON AND TIBC Routine 07/11/2018 10:21 Results fo r this AM EDT procedure are i n the results section. VITAMIN D, 25-HYDROXY Routine 07/11/2018 10:21 Vitamin D defic iency Results for this AM EDT procedure are i n the results section. CBC (WITH DIFF) Routine 07/11/2018 10:21 Essential AM EDT hypertension TSH Routine 07/11/2018 10:21 Essential Results for this AM EDT hypertension procedure are i n the results section. T4, FREE Routine 07/11/2018 10:21 Essential Results for this AM EDT hypertension procedure are i n the results section. TESTOSTERONE, TOTAL Routine 07/11/2018 10:21 Resu lts for this AM EDT procedure are i n the results section. PSA (ULTRASENSITIVE) Routine 07/11/2018 10:21 Malignant neopla sm Results for this AM EDT of prostate procedure are i n the results section. HEMOGLOBIN A1C Routine 07/11/2018 10:21 Impaired fasting Resul ts for this AM EDT glucose procedure are i n the results section. FOLATE, SERUM Routine 07/11/2018 10:21 Essential Results fo r this AM EDT hypertension procedure are i n the results section. FERRITIN Routine 07/11/2018 10:21 Results for this AM EDT procedure are i n the results section. VITAMIN B12 Routine 07/11/2018 10:21 Essential Results for this AM EDT hypertension procedure are i n the results section. LIPID PANEL (REFLEX Routine 07/11/2018 10:21 Essential Resu lts for this DIRECT LDL) AM EDT hypertension procedure are i n the results section. COMPREHENSIVE Routine 07/11/2018 10:21 Essential Results fo r this METABOLIC PANEL AM EDT hypertension procedure ar e in (NON-FASTING) the results section. documented in this encounter Results Testosterone, total (07/11/2018 10:21 AM EDT) athologist Signature Testo Total 6.29 2.80 - 8.00 ARCELIA HERBERT ng/mL [facility] Comment: Reference Ranges: ? Males (7t o18 years) ?Females (8-18 years) Randall Stage ?ng/m l ? ng/ml ? 1 ? <0.0 3 ? <0.03 to 0.06 ? 2 ? <0.0 3 to 4.32 ? <0.03 to 0.10 ? 3 ? 0.65 to 7.78 ?<0.03 to 0.24 ? 4 ? 1.80 to 7.63 ?<0.03 to 0.27 ? 5 ? 1.88 to 8.82 ?<0.05 to 0.38 ?Males 1 8 years to adult ? Females 18 years to adult ? 2.80 t o 8.00 ng/ml ?0.06 to 0.82 ng/ml Stated adult reference ranges derived fr om review of Lore E170 Testosterone reagent package insert 09/16, V8 Stated pediatric reference ranges derive d from review of Lore E170 Testosterone II reagent package insert 0 05/21, V2. Specimen Anatomical Collection Method Collection Time Receive d Time (Source) Location / / Volume Laterality Blood specimen Venous Draw / 07/11/2018 10:21 07/12/20 18 2:00 (specimen) Unknown AM EDT PM EDT Resulting Agency Comment Spec In Lab Becka Dean APRN CHEMISTRY ORDERABLES Performing Organization Address City/[facility]/[place] [address] (ABNORMAL) Iron and TIBC (07/11/2018 10:21 AM EDT) Analysis Performed At Patho logist Time Signature Iron 102 45 - 160 [facility] mcg/dL [facility] TIBC 202 (L) 250 - 450 [facility] mcg/dL [facility] Iron Saturation 50 20 - 50 % [facility] Specimen Anatomical Collection Method Collection Time Receive d Time (Source) Location / / Volume Laterality Blood specimen Venous Draw / 07/11/2018 10:21 07/11/20 18 (specimen) Unknown AM EDT 10:35 AM EDT Resulting Agency Comment Spec In Lab Giorgio Cardona MD CHEMISTRY ORDERABLES Performing Organization Address City/[facility]/[place] [address] Ferritin (07/11/2018 10:21 AM EDT) P athologist Signature Ferritin 166 30 - 400 [facility] ng/mL [facility] Comment: Pediatric reference ranges not verified at [facility], interpret with caution. Reference ranges for females greater reddy n 50 years of age approach values for men, i.e., 30-400 ng/mL. Specimen Anatomical Collection Method Collection Time Receive d Time (Source) Location / / Volume Laterality Blood specimen Venous Draw / 07/11/2018 10:21 07/11/20 18 (specimen) Unknown AM EDT 10:36 AM EDT Resulting Agency Comment Spec In Lab Giorgio Cardona MD CHEMISTRY ORDERABLES Performing Organization Address City/State/ZIP Code Phon e Number [address] Differential, Automated (07/11/2018 10:21 AM EDT) P athologist Signature Neutrophils % 62.5 % [facility] Neutr Abs (ANC) 2.89 1.70 - [facility] 6.10 [facility] x10(3)/[facility] LABORATORY Lymphocytes % 23.8 % [facility] Lymphocytes Abs 1.1 0.9 - 3.2 [facility] x10(3)/[facility] LABORATORY Monocytes % 11.7 % [facility] Monocyte Abs 0.5 0.3 - 0.9 [facility] x10(3)/[facility] LABORATORY Eosinophils % 0.9 % [facility] Eosinophils Abs 0.0 0.0 - 0.4 [facility] x10(3)/[facility] LABORATORY Basophils % 0.9 % [facility] Basophils Abs 0.0 0.0 - 0.1 [facility] x10(3)/[facility] LABORATORY Immature Gran % 0.20 % [facility] Comment: Immature granulocytes(IG's)percentage an d absolute count will include metamyelocytes, myelocytes, and promyelo cytes. Blood smears from CBCs yielding IG's will be scanned manually for concor dance. If this scan disagrees with the automated IG or if promyelocytes are not ed, a manual differential will be performed. Becki Gran Abs 0.01 0.00 - 0.04 x10(3)/[facility] Specimen Anatomical Collection Method Collection Time Receive d Time (Source) Location / / Volume Laterality Blood specimen 07/11/2018 10:21 8 (specimen) AM EDT 10:27 AM EDT Resulting Agency Comment Spec In Lab Giorgio Cardona MD HEMATOLOGY ORDERABLES Performing Organization Address City/State/[place] [address] (ABNORMAL) Hemogram (07/11/2018 10:21 AM EDT) Analysis Performed At Patho logist Time Signature WBC 4.6 4.0 - 9.5 [facility] x10(3)/[facility] LABORATORY RBC 3.95 (L) 4.58 - [facility] 5.54 [facility] x10(6)/[facility] LABORATORY Hemoglobin 13.0 (L) 13.7 - [facility] 16.5 gm/dL [facility] Hematocrit 38.3 (L) 40.5 - [facility] 48.5 % [facility] MCV 97.0 (H) 82.9 - [facility] 93.1 [facility] LABORATORY MCH 32.9 (H) 27.5 - [facility] 32.1 pg [facility] MCHC 33.9 32.0 - [facility] 35.7 gm/dL [facility] Platelets 180 145 - 357 [facility] x10(3)/[facility] LABORATORY RDWSD 47.0 (H) 36.0 - [facility] 45.0 [facility] LABORATORY RDWCV 13.0 11.4 - [facility] 13.8 % [facility] MPV 11.0 7.6 - 12.9 [facility] LABORATORY nRBC % Auto 0.0 % [facility] nRBC Abs Auto 0.000 0.000 - [facility] 0.000 [facility] x10(3)/[facility] LABORATORY Specimen Anatomical Collection Method Collection Time Receive d Time (Source) Location / / Volume Laterality Blood specimen 07/11/2018 10:21 8 (specimen) AM EDT 10:27 AM EDT Resulting Agency Comment Spec In Lab Giorgio Cardona MD HEMATOLOGY ORDERABLES Performing Organization Address City/State/ZIP [place] [address] Lipid Panel (07/11/2018 10:21 AM EDT) P athologist Signature Chol, Total 176 mg/dL [facility] Comment: Lower Risk: <200 mg/dL Average Risk: 200-239 mg/dL Higher Risk: >xa=049 mg/dL Triglycerides 56 mg/dL [facility] Comment: Average Risk/Lower Risk: <150 mg/dL Borderline High Risk: 150-199 mg/dL High Risk: 200-499 mg/dL Very High Risk: >wm=601 mg/dL HDL 66 mg/dL [facility] Comment: Males: ?? Higher Risk: <40 mg/dL Females: ?? HIgher Risk: <50 mg/dL LDL Cholesterol 99 mg/dL [facility] Comment: Lowest Risk: <100 mg/dL Lower Risk: 100-129 mg/dL Borderline High Risk: 130-159 mg/dL High Risk: 160-189 mg/dL Very High Risk: >bz=249 mg/dL Chol/HDL Ratio 2.7 ratio [facility] Lipid Interpretation See Note [facility] Comment: Lipid management should be guided by a p atient? s ASCVD risk, goals and preferences. ACC/AHA Guidelines recommend high intens ity statin if clinical ASCVD or LDL greater than or equal to 190 mg/dL. http://[employer] [place]/ORB-EUR-Okbiwgrho Adults aged 40-75 with LDL 70-189 mg/dL should have their 10 year ASCVD risk estimated with the ACC/AHA ASCVD risk es timator http://tools.acc.org/KIREE-Wcwq-Kzcdjjui r/ Statin should be discussed if risk [...] Organization Address City/State/ZIP Code Phon e Number [address] T4, free (07/11/2018 10:21 AM EDT) P athologist Signature Free T4 1.64 0.93 - 1.70 ARCELIA HERBERT ng/dL [facility] Specimen Anatomical Collection Method Collection Time Receive d Time (Source) Location / / Volume Laterality Blood specimen 07/11/2018 10:21 8 (specimen) AM EDT 10:27 AM EDT Resulting Agency Comment Spec In Lab Giorgio Cardona MD CHEMISTRY ORDERABLES Performing Organization Address City/State/ZIP Code Phon e Number [address] TSH (07/11/2018 10:21 AM EDT) P athologist Signature TSH 0.55 0.27 - 4.20 ARCELIA HERBERT mlU/ML [facility] Specimen Anatomical Collection Method Collection Time Receive d Time (Source) Location / / Volume Laterality Blood specimen 07/11/2018 10:21 8 (specimen) AM EDT 10:27 AM EDT Resulting Agency Comment Spec In Lab Giorgio Cardona MD CHEMISTRY ORDERABLES Performing Organization Address City/State/ZIP Code Phon e Number [address] Vitamin D, 25-Hydroxy (07/11/2018 10:21 AM EDT) athologist Signature 25-OH Vit D 34 30 - 100 ARCELIA HERBERT Total ng/mL [facility] Comment: Deficient <10 ng/mL Insufficient 10 to 29 ng/mL Sufficient 30 to 100 ng/mL Potential Intoxication >100 ng/mL According to the [place] National Osteoporosi s Foundation, Vitamin D concentrations >30 ng/mL are sufficient to protect bone health. ??The National Kidney Foundation has similarly stated that pat ients with Vitamin D concentrations <30ng/mL should be considered to be insu fficient or deficient. http://[employer] [place]/nkf-guidelines http://[employer] [employer] [place]/nejm-VitD The [employer] Vitamin D Immunoassay detec [...] Organization Address City/State/ZIP Code Phon e Number [address] Vitamin B12 (07/11/2018 10:21 AM EDT) athologist Signature Vitamin B-12 346 232 - 1,245 [facility] pg/mL [facility] Comment: Please note: Effective 10/10/2017, the [...] Organization Address City/State/ZIP Code Phon e Number [address] Folate, serum (07/11/2018 10:21 AM EDT) athologist Signature Folate Lvl 15.6 4.8 - 24.2 [facility] ng/mL [facility] Specimen Anatomical Collection Method Collection Time Receive d Time (Source) Location / / Volume Laterality Blood specimen 07/11/2018 10:21 8 (specimen) AM EDT 10:27 AM EDT Resulting Agency Comment Spec In Lab Giorgio Cardona MD CHEMISTRY ORDERABLES Performing Organization Address City/State/ZIP Code Phon e Number [address] (ABNORMAL) Hemoglobin A1c (07/11/2018 10:21 AM EDT) Analysis Performed At Patho logist Time Signature Hemoglobin A1C 5.9 (H) 4.3 - 5.6 ARCELIA HERBERT [facility] Comment: Reference Range: 4.3 - 5.6% [...] S67-74 Est Avg Gluc See note mg/dL ARCELIA HERBERT [facility] Comment: Estimated Average Glucose not [...] with hemoglobinopathies. Additional resources are available on [facility] ADA website. Eliot FAJARDO, Abhishek J, Denisse R, et al. ??Tr anslating the A1C assay into estimated average glucose values. ??Diabetes Care 2008:31(8):9755-4917. Specimen Anatomical Collection Method Collection Time Receive d Time (Source) Location / / Volume Laterality Blood specimen 07/11/2018 10:21 8 (specimen) AM EDT 10:27 AM EDT Resulting Agency Comment Spec In Lab Giorgio Cardona MD CHEMISTRY ORDERABLES Performing Organization Address City/State/ZIP [place] [address] (ABNORMAL) Comprehensive metabolic panel (non-fasting) (07/11/2018 10:21 AM EDT) P athologist Signature Glucose Lvl 102 65 - 199 [facility] mg/dL [facility] Comment: Diabetes: >=200 mg/dL plus symp toms BUN 20 10 - 20 mg/dL [facility] Creatinine 0.99 0.80 - 1.50 mg/dL [facility] Sodium 140 135 - 145 mmol/L [facility] Potassium 4.4 3.5 - 5.0 mmol/L [facility] Comment: Please note: ??Patients with WBC >100,00 0 may have falsely elevated Potassium levels. ??For accurate Potassium quantif ication in these patients send serum separator tube (gold top) for subsequent determinations. ??Contact the Clinical Chemistry Laboratory if there are any qu estions. Chloride 104 98 - 107 mmol/L [facility] CO2 24 22 - 31 mmol/L [facility] Anion Gap 12 5 - 15 mmol/L [facility] Calcium 8.4 (L) 8.5 - 10.5 mg/dL [facility] Total Protein 6.5 6.1 - 8.0 gm/dL [facility] Albumin 3.8 3.2 - 5.2 gm/dL [facility] AST 35 0 - 39 unit/L [facility] ALT 18 0 - 55 unit/L [facility] Alk Phos 74 40 - 120 unit/L [facility] Total Bilirubin 0.7 0.2 - 1.3 mg/dL [facility] Estimated GFR 72 >=60 mL/min/1.73 m?? [facility] Comment: The eGFR was calculated using the CKD-EP I equation. As with all creatinine based estimates of kidney function, eGFR values calculated with the CKD-EPI equation are not accurate in patients wi th acute kidney failure, extremes of body mass or the acutely ill. [email or web address]Dnkf eGFR 83 >=60 mL/min/1.73 m?? [facility] Comment: The eGFR was calculated using the CKD-EP I equation. As with all creatinine based estimates of kidney function, eGFR values calculated with the CKD-EPI equation are not accurate in patients wi th acute kidney failure, extremes of body mass or the acutely ill. [email or web address] Specimen Anatomical Collection Method Collection Time Receive d Time (Source) Location / / Volume Laterality Blood specimen 07/11/2018 10:21 8 (specimen) AM EDT 10:27 AM EDT Resulting Agency Comment Spec In Lab Giorgio Cardona MD CHEMISTRY ORDERABLES Performing Organization Address City/[facility]/[place] [address] PSA (07/11/2018 10:21 AM EDT) P athologist Signature PSA Total 0.18 0.00 - [facility] (Ultrasensitiv 4.00 ng/mL [facility] LABORATORY Specimen Anatomical Collection Method Collection Time Receive d Time (Source) Location / / Volume Laterality Blood specimen 07/11/2018 10:21 8 (specimen) AM EDT 10:27 AM EDT Resulting Agency Comment Spec In Lab Becka Dean APRN CHEMISTRY ORDERABLES Performing Organization Address City/[facility]/[place] [address] documented in this encounter Visit Diagnoses Diagnosis Malignant neoplasm of prostate Essential hypertension Unspecified essential hypertension Impaired fasting glucose Vitamin D deficiency Unspecified vitamin D deficiency documented in this encounter Care Teams Stock Feeder Relationship Specialty Start Date End Date Giorgio Cardona MD PCP - General General Internal Medicine 11/29/17 0 [facility] [place] [address] documented as of this encounter
--- OUTSIDE RECORDS SUMMARY | 2022-10-09 16:14 | XMS_ITS | Encounter Summary ---
:1940 Author Organization [facility] [place] [address] Care Team Providers Name Role Phone Unavailable Primary Care Provider Unavailable Reason for Visit Reason Comments Radiation Follow-up prostate cancer Encounter Details Date Type Department Care Team Description 04/26/2017 Office Visit Radiation Oncology at [facility]keila neoplasm of [facility] MITTEN STITCHER prostate [address] [place] [address] RADIATION ONCOL OGY [address] [place], [place] [phone] (Wo rk) Social History Tobacco Use Types Packs/Day Years Used Date Smoking Tobacco: Never Smokeless Tobacco: Never Alcohol Use Standard Drinks/Week Comments Yes 0 (1 standard drink = 0.6 oz pure alcoho l) RARE Sex Assigned at Date Recorded Not on file documented as of this encounter Last Filed Vital Signs Vital Sign Reading Time Taken Comments Blood Pressure 118/65 04/26/2017 11:26 AM EDT Pulse 50 04/26/2017 11:26 AM EDT Temperature 36.5 ??C (97.7 ??F) 04/26/2017 11:26 AM EDT Respiratory Rate 18 04/26/2017 11:26 AM EDT Oxygen Saturation 100% 04/26/2017 11:26 AM EDT Inhaled Oxygen Concentration - - Weight 67.8 kg (149 lb 6.4 oz) 04/26/2017 11:26 AM EDT Height - - Body Mass Index 25.32 03/22/2017 9:02 AM EDT documented in this encounter Patient Instructions Patient InstructionsPaBecka richard APRN - 04/26/2017 11:15 AM EDT date PSA Testosterone 04/20/2017 0.20 04/06/2016 0.20 03/17/2015 0.3 04/07/2014 [...] 4.4 09/2004 3.8 Vitals Office Visit from 04/26/2017 in [facility] Radiation Oncology Weight - Scale 67.8 kg (149 lb 6.4 oz) Temp 36.5 ??C (97.7 ??F) Temp Source Oral Heart Rate 50 Resp 18 BP 118/65 BP Location Left arm Patient Position Sitting SpO2 100 % documented in this encounter Progress Notes Becka Dean APRN - 04/26/2017 11:15 AM EDT Patient ID: Alfredito Mina is a 76 y.o. male.who is in radiation oncology clinic [...] taken and the specimen reported in [facility] pathology under session #[id number] prostate: The right lobe apex, mid, and base negative; the left apex was 3 + 3 in 40% of one core; the left mid was 3 + 4 in 50% of one core; and the left base showed a 3 + 4 in 5% in one of two cores. This information was reviewed at [facility] on October 19, 2006, and the report paralleled that given by the [facility] institution. The [facility] session number was [id number]. The patient was then seen by Dr. Mixon on December 26, 2005, and after review, his note indicates an IPS of 9/35. He had no difficulties with erectile dysfunction. His physical examination revealed a 30-gram prostate without nodularity, and the gland was smooth. With a PSA indicated of 5.4, a Eagle score of 4 + 3 = 7/10, [...] and Biopsy 09/19/2006 Volume in cc 56 Eagle grade/score a+b=c 4+3=7 Total Cores 12 cores [...] Post Primary Therapy - Sukumar PSA 0.20 Cancer history: : 1. Adenocarcinoma of the prostate. [id number], Sofy 4+3, left lobe involved. OLGA (-), [...] new primary lung cancer. No interval change. --- Skin cancer--squamous cell--07/2013 ---skin cancer basal cell 2014 Patient Active Problem List Diagnosis Code ??? Constipation K59.00 ??? Dyslipidemia E78.5 ??? GERD (gastroesophageal [...] F41.9 ??? 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 Dysphagia, unspecified R13.10 ??? Vocal cord paralysis J38.00 ??? Preventative health care Z00.00 ??? Diverticulitis K57.92 ??? History of squamous cell carcinoma Z85.89 ??? Actinic keratosis L57.0 ??? Basal cell carcinoma C44.91 ??? Primary insomnia F51.01 ??? Splinter T14.8 ??? Bunion M21.619 ??? Acute URI J06.9 ??? Cough, persistent R05 Past Surgical History: Procedure Laterality Date ??? [...] MONITORING, SETUP performed by FRANK MAC at [facility] MAIN OR ??? PRO COLONOSCOPY, REMV LESN, SNARE 01/06/2013 COLONOSCOPY, POLYPECTOMY, REMOVAL LESION BY SNARE performed by Josh Jeffery MD at [facility] ENDOSCOPY ??? PRO REPAIR RECURR INGUIN KIRAN, REDUCIBL 03/10/2011 HERNIA REPAIR, INGUINAL, RECURRENT performed by NOREEN BOWIE at [facility] MAIN OR ??? PRO THYROIDECTOMY=SUBSTERNAL, TRANSCERV 11/30/2011 THYROIDECTOMY, INCL. SUBSTERNAL, CERVICAL APPROACH performed by FRANK MAC at [facility] MAIN OR ??? PRO TOTAL KNEE ARTHROPLASTY 06/19/2012 @TOTAL KNEE ARTHROPLASTY performed by ADAM CARRERO at [facility] MAIN OR ??? ROTATOR CUFF REPAIR 2013 ??? UMBILICAL HERNIA REPAIR ??? UPPER GI ENDOSCOPY, EXAM 01/29/2012 UPPER GI ENDOSCOPY performed by VICKI SON at [facility] ENDOSCOPY Allergies Allergen Reactions ??? Cyclobenzaprine Urinary retention, xerostomia ??? Lactose Other (See Comments) Sneezing Medications 04/26/17 1217 Medication Sig Taking? polyethylene glycol (MIRALAX) 17 [...] 1 tablet by mouth every morning. Yes Family History: Mother 2012 at age 105--she had asthma, osteoporosis. Father at age 55, smoked too much, heart problems. Social History: [place]. 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 Single. Five children and sevengrandkids. 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 Has been spending vora in [place]. Used to play basketball. No alcohol. Advance Directives: Completed. See advance care planning note. Interim History: Mr Mina reports that he is doing well at this time. Since he was seen in radiation oncology a year ago he has been well with no new health issues. 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 He reports that he feels better when he works. He did spend the winter in [place] where he[place] a home. He denies urinary problems at this time. His IPSS score is 5. He is reports being delighted with hisoverall urinary status. He does continue with the terazosin and has found that if he misses taking it that he has increased discomfort with voiding. He has no dysuria, no hematuria and no incontinence. International Prostate Symptom Score Total Score__5_ 0 1 2 3 4 5 Not at all Less than one time in five Less than half of the time About half of the time More than half of the time Almost always Incomplete emptying X frequency X intermittency X urgency x Weak stream x Flow resistance X Not at all Every eight hours Every four hours Every three hours Every 2 hours Every hour nocturia x His bowels have been moving regularly one or twice a day. He prevents constipation with the use of miralax which has been very effective. HE had BRB rectally recently and his PCP did guaiac exam which was negative but did arrange for him to have a screening colonoscopy. The last one was three years ago and he had polyps. He denies, melena, constipation and diarrhea. He denies abdominal discomfort. He reports that his respiratory symptoms are stable. He denies shortness of breath, no dyspnea, + occ cough, no hemoptysis. He had a follow up Ct of the chest last August associated with followup withDr Cote. This was negative for lung cancer recurrence. He continues with yearly followup with dermatology given his history of skin cancer. Review of Systems Constitutional: Negative for activity change, appetite change, chills, fatigue, fever and unexpectedweight change. 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 Negative for nosebleeds. 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 Negative for visual disturbance. Respiratory: Positive for cough. Negative for chest tightness, shortness of breath and wheezing. Cough rare now Cardiovascular: Positive for leg swelling. Negative for chest pain. Pedal edema at end of day--none in am Gastrointestinal: Positive for anal bleeding. Negative for abdominal distention, abdominal pain, blood in stool, constipation, diarrhea, nausea and rectal pain. Went back to [employer] and that is working very well for bowel function Patient has been referred for a repeat colonoscopy Genitourinary: Negative for decreased urine volume, difficulty urinating, dysuria, frequency, hematuria, testicular pain and urgency. See IPSS and interim history Musculoskeletal: Positive for arthralgias. Negative for neck stiffness. Arm aches at times Skin: Regular follow up with dermatology Patient does not use sun screen Neurological: Negative. Negative for dizziness, weakness, light-headedness and headaches. Hematological: Negative. Psychiatric/Behavioral: Negative. Negative for sleep disturbance. The patient is not nervous/anxious. Mood positive KPS: 100 Vitals Office Visit from 04/27/2016 in [facility] Radiation Oncology Weight - Scale 69.6 kg (153 lb 8 oz) Temp 36.2 ??C (97.2 ??F) Temp Source Oral Heart Rate 61 Heart Rate Source NIBP BP 110/58 BP Location Left arm Patient Position Sitting SpO2 100 % Objective: Physical Exam Constitutional: He is [...] normal range of motion present. Cardiovascular: Normal rate, regular rhythm and normal heart sounds. Exam reveals no gallop and no friction rub. No murmur heard. Pulmonary/Chest: Effort normal and breath sounds normal. No stridor. No respiratory distress. He hasno decreased breath sounds. He has no wheezes. He has no rhonchi. He has no rales. He exhibits no tenderness. Abdominal: Soft. Bowel sounds are normal. He exhibits no distension. There is no tenderness. Genitourinary: Genitourinary Comments: Rectal--deferred Musculoskeletal: Normal range of motion. He exhibits no edema or tenderness. Difficulty lifting left arm. Lymphadenopathy: Head (right side): No submental, no [...] Vitals reviewed. Laboratory Studies: date PSA Testosterone 04/20/2017 0.20 04/06/2016 0.20 03/17/2015 0.3 04/07/2014 [...] Plan: Mr Mina is a very pleasant 76 year old man with Adenocarcinoma of the prostate. [id number], Sofy 4+3, left lobe involved. OLGA (-), PSA of 5.4 Mr Mina was treated with external beam radiation under RTOG protocol and received 79.2 Gy completed on 04/12/2007 with no concurrent ADT. Mr Mina PSA remains at a new sukumar of 0.20 indicating excellent response to treatment with JOSUE and no adverse late effects of radiation. Patient is to return to radiation oncology in one year for repeat PSA, and clinical evaluation. He is to call if he has questions or concerns in the meantime. Patient continues follow up of skin cancers with dermatology and ongoing followup with chest surgeon due to his history of lung cancer. documented in this encounter Plan of Treatment Upcoming Encounters Date Type Specialty Care Team Description 10/11/2022 Office Visit Dermatology Virgilio Mckeon MD [facility] DR CHRISTIANO HENSON-DERMAT OLOGY [place], [place] [address] (Wo rk) 10/16/2022 Office Visit Otolaryngology Frank Buchanan MD [facility] OTOLARYNGOLOGY Sarah EPT. [place], [place] [address] (Wo rk) 11/29/2022 Appointment Hematology and Oncology 11/29/2022 Office Visit Radiation Oncology Emerald eLyva APRN [facility] RADIATION ONCOLO GY [place], [place] [address] (Wo rk) documented as of this encounter Procedures Procedure Name Priority Date/Time Associated Diagnosis Comme nts LAB SCAN 04/20/2017 12:00 AM Results for this EDT procedure are i n the results section . documented in this encounter Results PSA (07/11/2018 10:21 AM EDT) athologist Signature PSA Total 0.18 0.00 - ARCELIA HERBERT (Ultrasensitiv 4.00 ng/mL [facility] LABORATORY Specimen Anatomical Collection Method Collection Time Receive d Time (Source) Location / / Volume Laterality Blood specimen 07/11/2018 10:21 8 (specimen) AM EDT 10:27 AM EDT Resulting Agency Comment Spec In Lab [facility] MITTEN STITCHER CHEMISTRY ORDERABLES Performing Organization Address City/State/ZIP Code Phon e Number [place] [id number] SCAN DOC: LAB (04/20/2017 12:00 AM EDT) Narrative 04/20/2017 12:00 AM EDT This result has an attachment that is no t available. Ordered by an unspecified provider. Scanning Provider MEDIA MGR SCAN EXT ORDR/RSLT documented in this encounter Visit Diagnoses Diagnosis Malignant neoplasm of prostate documented in this encounter
--- OUTSIDE RECORDS SUMMARY | 2022-10-09 16:14 | XMS_ITS | Encounter Summary ---
:1940 Author Organization [facility] [place] [address] Care Team Providers Name Role Phone Giorgio Cardona MD Primary Care Provider Reason for Visit Reason Comments Other cough for 2x days mucas and runny nose Encounter Details Date Type Department Care Team Description 05/08/2019 [facility] MD [facility] [address] [place], [place] GENERAL INTERNAL [address] MEDICINE [phone] [place], [place] [address] (Wo rk) Social History Tobacco Use Types Packs/Day Years Used Date Smoking Tobacco: Never Smokeless Tobacco: Never Alcohol Use Standard Drinks/Week Comments Yes 0 (1 standard drink = 0.6 oz pure alcoho l) RARE Sex Assigned at Date Recorded Not on file documented as of this encounter Last Filed Vital Signs Vital Sign Reading Time Taken Comments Blood Pressure 122/63 05/08/2019 4:08 PM EDT Pulse 56 05/08/2019 4:08 PM EDT Temperature 36.6 ??C (97.9 ??F) 05/08/2019 4:08 PM EDT Respiratory Rate 16 05/08/2019 4:08 PM EDT Oxygen Saturation 99% 05/08/2019 4:08 PM EDT Inhaled Oxygen Concentration - - Weight 60.9 kg (134 lb 3.2 oz) 05/08/2019 4:08 PM EDT Height 164 cm (5' 4.57) 05/08/2019 4:08 PM EDT Body Mass Index 22.63 05/08/2019 4:08 PM EDT documented in this encounter Patient Instructions Patient InstructionsClaytonKaro kirkpatrick APRN - 05/08/2019 4:00 PM EDT Images from the original note were not included. Patient Education Viral Respiratory Infection: Care Instructions Your Care Instructions Viruses are very small organisms. They grow in number after they enter your body. There are many types that cause different illnesses, such as colds and the mumps. The symptoms of a viral respiratory infection often start quickly. They include a fever, sore throat, and runny nose. You may also just not feel well. Or you may not want to eat much. Most viral respiratory infections are not serious. They usually get better with time and self-care. Antibiotics are not used to treat a viral infection. That's because antibiotics will not help cure aviral illness. In some cases, antiviral medicine can help your body fight a serious viral infection. Follow-up care is a melchor part of your treatment and safety. Be sure to make and go to all appointments, and call your doctor if you are having problems. It's also a good idea to know your test results and keep a list of the medicines you take. How can you care for yourself at home? ?? Rest as much as possible until you feel better. ?? Be safe with medicines. Take your medicine exactly as prescribed. Call your doctor if you think you are having a problem with your medicine. You will get more details on the specific medicine your doctor prescribes. ?? Take an uljg-ytc-ifjplgk pain medicine, such as acetaminophen (Tylenol), ibuprofen (Advil, Motrin), or naproxen (Aleve), as needed for pain and fever. Read and follow all instructions on the label. Do not give aspirin to anyone younger than 20. It has been linked to Alysa syndrome, a serious illness. ?? Drink plenty of fluids, enough so that your urine is light yellow or clear like water. Hot fluids, such as tea or soup, may help relieve congestion in your nose and throat. If you have kidney, heart, or liver disease and have to limit fluids, talk with your doctor before you increase the amount of fluids you drink. ?? Try to clear mucus from your lungs by breathing deeply and coughing. ?? Gargle with warm salt water once an hour. This can help reduce swelling and throat pain. Use 1 teaspoon of salt mixed in 1 cup of warm water. ?? Do not smoke or allow others to smoke around you. If you need help quitting, talk to your doctor about stop-smoking programs and medicines. These can increase your chances of quitting for good. To avoid spreading the virus ?? Cough or sneeze into a tissue. Then throw the tissue away. ?? If you don't have a tissue, use your hand to cover your cough or sneeze. Then clean your hand. You can also cough into your sleeve. ?? Wash your hands often. Use soap and warm water. Wash for 15 to 20 seconds each time. ?? If you don't have soap and water near you, you can clean your hands with alcohol wipes or gel. When should you call for help? Call your doctor now or seek immediate medical care if: ? You have a new or higher fever. ? Your fever lasts more than 48 hours. ? You have trouble breathing. ? You have a fever with a stiff neck or a severe headache. ? You are sensitive to light. ? You feel very sleepy or confused. ??Watch closely for changes in your health, and be sure to contact your doctor if: ? You do not get better as expected. Where can you learn more? Visit our health information library at http://[employer]/Viewexinfo. You can also view health information on [employer], your personal patient account. Log in or sign up today. Enter Q795 in the search box to learn more about Viral Respiratory Infection: Care Instructions. Current as of: July 17, 2018 Content Version: 12.1 ?? [id number] [employer]. Care instructions adapted under license by [facility]. If you have questions about a medical condition or this instruction, always ask your healthcare professional. [employer] disclaims any warranty or liability for your use of this information. Stay home from work tomorrow documented in this encounter Progress Notes Karo Pham APRN - 05/08/2019 4:00 PM EDT Established Patient ACUTE Visit History of Presenting Illness: Patient here to followup on acute issues Patient PCP - Giorgio Cardona MD 78 yo male presents to the clinic today for: Three days ago he noticed body aches and shivering, coughing also started.States his was recently ill with similar symptoms. He states his food goes down the wrong way sometimes.This occurs usually almost every day. His past medical history is significant for vocal cord paralysis and lung cancer and a [id number] (multinodular goiter) Cough is better today, he was coughing up green mucous now it is white. He reports NIEVES, and orthopnea. He is sleeping well now however report that initially the cough would awaken him every 2 hours, this has improved. He wants to return to work tomorrow and wants to know if he should. 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 Feels chilled, no aches No CP He took a cold pill one time, it helped. Patient reported measures in the past 7 days Pain:1 Physical Health:Fair Mental Health: Patient Active Problem List Diagnosis [...] features. 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 [id number]; KRAS negative, EGFR negative --09/2010: CT scan - normal --02/2011: CT scan --09/2011: CT scan - negative annual CT's afterwards Outpatient Encounter Medications as of 05/08/2019 Medication Sig Dispense Refill ??? atenolol (TENORMIN) [...] tablet by mouth daily.30 tablet 11 No facility-administered encounter medications on file as of 05/08/2019. Social History Socioeconomic History ??? Marital status: [...] on phone: None Gets together: None Attends jewish service: None Active member of club or organization: None Attends meetings of clubs or organizations: None Relationship status: None ??? Intimate partner violence: Fear of current or ex partner: None Emotionally abused: None Physically abused: None Forced sexual activity: None Other Topics Concern ??? None Social History Narrative ??? None Review of systems: Constitutional - (- ) fevers (+) chills, sweats (+ ) fatigue Allergic/Immunologic - (- ) rash Cardiovascular - ( -)chest pain ( -)palpitations Integument/Breast - Respiratory - (+ )SOB, (+)NIEVES ( +)cough, sputum (+ )wheezing, HEENT - ( +) diffculty swallowing (- ) nasal congestion, postnasal drip Psychiatric - Neurological - - weakness, - headache Gastrointestinal - (- ) abdominal pain (- ) nausea, (- ) constipation, diarrhea (- ) blood in stool Genitourinary - (- ) abnormal discharge (- ) lumps, masses or nodules ( -) nocturia, dysuria, polyuria Heme/Lymph - (- ) lymph node swelling Musculoskeletal - ( -) pain at rest or with movement Objective Vitals: 05/08/19 1608 BP: 122/63 BP Location (NBP): Right arm Patient Position: Sitting BP Cuff Sizes: Adult (25-34 cm) Pulse: 56 Resp: 16 Temp: 36.6 ??C (97.9 ??F) TempSrc: Oral SpO2: 99% Weight: 60.9 kg (134 lb 3.2 oz) Height: 164 cm (5' 4.57) Gen -no acute distress. Alert, responsive and comfortable HEENT - oropharynx moist without lesions Neck - Full range of motion, no bruits, no lymphadenopathy or thyromegaly. No increase in JVD. Lungs - coarse ronchi improves with coughing, , scattered wheezes Chest/Back - Heart - RRR, S1,S2, no murmur, gallop or rub Abdomen - Soft, nontender, no hepatosplenomegaly, masses or distention, normal active bowel sounds Extremities - trace edema Skin - Neurological - alert and orietned X3, good historian Gait: grossly intact Assessment/Plan: Upper Respiratory Infection: Strongly suggestive of viral URI, symptoms improving, no fever, with recent URI, afebrile Advised to continue to monitor for increased SOB, CP, increased cough, fever and to report this to us immediately Patient Instructions: There are no Patient Instructions on file for this visit. URI patient instructions I counselled the patient on the above [...] by one of my nurses, letter, or myDH. Next Appointment: No follow-ups on file. Total time: Minutes, Of the visit time was spent in eakd-uv-hccy counselling of the above issues Orders placed in this Encounter: No orders of the defined types were placed in this encounter. Laboratory Studies No results found for this or any previous visit (from the past 72 hour(s)). documented in this encounter Plan of Treatment Upcoming Encounters Date Type Specialty Care Team Description 10/11/2022 Office Visit Dermatology Virgilio Mckeon MD [facility] DR CHRISTIANO HENSON-DERMAT OLOGY [place] [phone] (Wo rk) 10/16/2022 Office Visit Otolaryngology Frank Buchanan MD [facility] OTOLARYNGOLOGY Sarah EPT. [place], [place] [address] (Wo rk) 11/29/2022 Appointment Hematology and Oncology 11/29/2022 Office Visit Radiation Oncology Emerald Leyva APRN [facility] RADIATION ONCOLO GY [place], [place] [address] (Wo rk) documented as of this encounter Visit Diagnoses Diagnosis Acute upper respiratory infection Acute upper respiratory infections of un specified site documented in this encounter Care Teams [employer] Feeder Relationship Specialty Start Date End Date Giorgio Cardona MD PCP - General General Internal Medicine 11/29/17 0 [facility] [place] [address] documented as of this encounter
--- OUTSIDE RECORDS SUMMARY | 2022-10-09 16:14 | XMS_ITS | Encounter Summary ---
:1940 [place] [address] Care Team Providers Name Role Phone Giorgio Cardona MD Primary Care Provider Encounter Details Date Type Department Care Team Description 10/24/2018 Hospital Encounter [place] [address] Social History Tobacco Use Types Packs/Day [...] Office Visit Dermatology Virgilio Mckeon MD [facility] DR CHRISTIANO HENSON-DERMAT OLOGY [place], [place] [address] (Wo rk) 10/16/2022 Office Visit Otolaryngology Frank Buchanan MD [facility] OTOLARYNGOLOGY D EPT. [place], [place] [address] (Wo rk) 11/29/2022 Appointment Hematology and Oncology 11/29/2022 Office Visit Radiation Oncology Emerald Leyva APRN [facility] RADIATION ONCOLO GY [place], [place] [address] (Wo rk) documented as of this encounter Visit Diagnoses Diagnosis Preventative health care Routine general medical examination at a health care facility documented in this encounter Care Teams Wardrobe Specialty Worker Relationship Specialty Start Date End Date Giorgio Cardona MD PCP - General General Internal Medicine 11/29/17 0 [facility] GENERAL [place] [address] documented as of this encounter
--- OUTSIDE RECORDS SUMMARY | 2022-10-09 16:14 | XMS_ITS | Encounter Summary ---
:1940 Author Organization [facility] [place] [address] Care Team Providers Name Role Phone Giorgio Cardona MD Primary Care Provider Encounter Details Date Type Department Care Team Description 10/21/2018 Telephone Internal Medicine at [facility] [place] [address] Social History Tobacco Use Types Packs/Day Years Used Date Smoking Tobacco: Never Smokeless Tobacco: Never Alcohol Use Standard Drinks/Week Comments Yes 0 (1 standard drink = 0.6 oz pure alcoho l) RARE Sex Assigned at Date Recorded Not on file documented as of this encounter Miscellaneous Notes Telephone Encounter - Adwoa Estevez - 10/21/2018 4:08 PM EST FYI - Pt calling back stating he can be here @ 8:30am tomorrow morning. documented in this encounter Plan of Treatment Upcoming Encounters Date Type Specialty Care Team Description 10/11/2022 Office Visit Dermatology Virgilio Mckeon MD [facility] ER DR CHRISTIANO HENSON-DERMAT [place], [place] [address] (Wo rk) 10/16/2022 Office Visit Otolaryngology Frank Buchanan MD [facility] OTOLARYNGOLOGY D EPT. [place], [place] [address] (Wo rk) 11/29/2022 Appointment Hematology and Oncology 11/29/2022 Office Visit Radiation Oncology Emerald Leyva APRN [facility] RADIATION ONCOLO GY [place], [place] [address] (Wo rk) documented as of this encounter Visit Diagnoses Not on filedocumented in this encounter Care Teams Store Facility Technician Relationship Specialty Start Date End Date Giorgio Cardona MD PCP - General General Internal Medicine 11/29/17 0 [facility] GENERAL [place] [address] documented as of this encounter
--- OUTSIDE RECORDS SUMMARY | 2022-10-09 16:14 | XMS_ITS | Encounter Summary ---
:1940 Author Organization [facility] [place] [address] Care Team Providers Name Role Phone Giorgio Cardona MD Primary Care Provider Reason for Visit Reason Onset Date Comments Appointment 05/07/2019 Encounter Details Date Type Department Care Team Description 05/07/2019 Telephone Internal Medicine at [facility] Jayshree Weller Appointment [facility] [place] [address] Social History Tobacco Use Types Packs/Day Years Used Date Smoking Tobacco: Never Smokeless Tobacco: Never Alcohol Use Standard Drinks/Week Comments Yes 0 (1 standard drink = 0.6 oz pure alcoho l) RARE Sex Assigned at Date Recorded Not on file documented as of this encounter Miscellaneous Notes Telephone Encounter - Millie Long RN - 05/07/2019 9:45 AM EDT Called patient to discuss his concerns. He says he has had a cough for a year. It only happens when he eats food. Every time he eats he has a coughing fit. He had difficulty breathing last night. His nose runs all of the time. He thinks he has allergies. He doesn't currently take an antihistamine. He is coughing up green mucus. His voice sounds gruff. He states that he had an operation And his thyroid was removed. He says that they botched his voicebox. This program writer attempted to make an appointment with Dr. Aguilar for today but patient declined. Then this program writer tried to make an appointment for tomorrow with another provider but he refused as well. This program writer then said that he should be seen and thathe should call for another appointment or come in to the walk-in clinic today. Patient stated I'll take my chances. Telephone Encounter - Jayshree Weller - 05/07/2019 9:34 AM EDT Message: Pt is calling to be seen today for cold, cough, congestion and had breathing difficulty last night. No availability. Please call to try and get him seen today. Pt doesn't want the walk in clinic. Please call to discuss. Ask caller their first and last name and relationship to the patient: self Best time to call back: any Ok to leave a message: y Ok to send my- message: n Offered Appointment: n MA/Nurse/[place] contacted via: Message: y Call: n Pager: n documented in this encounter Plan of Treatment Upcoming Encounters Date Type Specialty Care Team Description 10/11/2022 Office Visit Dermatology Virgilio Mckeon MD [facility] DR CHRISTIANO HENSON-DERMAT [place], [place] [address] (Wo rk) 10/16/2022 Office Visit Otolaryngology Frank Buchanan MD [facility] OTOLARYNGOLOGY Sarah EPT. [place], [place] [address] (Wo rk) 11/29/2022 Appointment Hematology and Oncology 11/29/2022 Office Visit Radiation Oncology Emerald Leyva APRN [facility] RADIATION ONCCESAR CANO [place], [place] [address] (Wo rk) documented as of this encounter Visit Diagnoses Not on filedocumented in this encounter Care Teams General Maintenance Helper Relationship Specialty Start Date End Date Giorgio Cardona MD PCP - General General Internal Medicine 11/29/[address] [facility] GENERAL [place] [address] documented as of this encounter
--- OUTSIDE RECORDS SUMMARY | 2022-10-09 16:14 | XMS_ITS | Encounter Summary ---
:1940 Author Organization [facility] [address] Care Team Providers Name Role Phone Giorgio Cardona MD Primary Care Provider Encounter Details Date Type Department Care Team Description 08/15/2018 Hospital Encounter [facility] at [facility] Giorgio Cardona, Acute left ankle [address] [facility] [address] GALINDO pain [facility] [address] [place] [phone] GENERAL INTERNAL MEDICINE [place], [place] [address] Social History Tobacco Use Types [...] MD [facility] DR CHRISTIANO HENSON-DERMAT OLOGY [place], [place] [address] (Wo rk) 10/16/2022 Office Visit Otolaryngology Frank Buchanan MD [facility] OTOLARYNGOLOGY D EPT. [place], [place] [address] (Wo rk) 11/29/2022 Appointment Hematology and Oncology 11/29/2022 Office Visit Radiation Oncology Emerald Leyva APRN [facility] RADIATION ONCOLO GY [place], [place] [address] (Wo rk) documented as of this encounter Procedures Procedure Name Priority Date/Time Associated Diagnosis Comme nts XR FOOT MIN 3 VIEWS Routine 08/15/2018 10:08 AM Acute left ank le Results for this LEFT EDT pain procedure are i n the results section. documented in this encounter Results XR Foot Min 3 [...] gout. Giorgio Cardona MD IMG DX ORDERABLES documented in this encounter Visit Diagnoses Diagnosis Acute left ankle pain documented in this encounter Care Teams Life Enrichment Manager Relationship Specialty Start Date End Date Giorgio Cardona MD PCP - General General Internal Medicine 11/29/17 0 [facility] GENERAL [place] [address] documented as of this encounter
--- OUTSIDE RECORDS SUMMARY | 2022-10-09 16:14 | XMS_ITS | Encounter Summary ---
:1940 Author Organization [facility] Address [facility] [place] [address] Care Team Providers Name Role Phone Giorgio Cardona MD Primary Care Provider Reason for Referral Consultation (Routine) - Closed Specialty Diagnoses / Procedures Referred By Contact Refer red To Contact Gastroenterology Diagnoses Preventive measure Giorgio Cardona MD Levy, L Campbell, MD [facility] GENERAL INTERNAL GASTROENTEROLOG Y DEPT. [place], [place] [id number] [place] [id number] Referral ID Status Reason Start Date Expiration Date Visits V isits Requested Authorized [id number] Closed Test Only 11/29/2017 11/29/2018 1 1 Reason for Visit Reason Comments Other had a bug, coughing a lot, n ose was plugged, started using flonase, having trouble with nasal, coughing and lungs, stool is a bit differetn Encounter Details Date Type Department Care Team Description 11/29/2017 Office Visit Internal Medicine at Deandre Cardona MD Vocal cord paralysis; [facility] S/P thyroidectomy; [facility] S/P mitral valve repair; [facility] INTERNAL Prostate cancer; [place], [place] MEDICINE Post-nasal drip; [id number] [place] [address] Pancreatic cyst; [phone] Primary osteoar thritis involving multiple joints; (Work) Malignant neoplasm of hilus of lung, uns pecified laterality; Anxiety; Preventive william ure Social History Tobacco Use Types Packs/Day Years Used Date Smoking Tobacco: Never Smokeless Tobacco: Never Alcohol Use Standard Drinks/Week Comments Yes 0 (1 standard drink = 0.6 oz pure alcoho l) RARE Sex Assigned at Date Recorded Not on file documented as of this encounter Last Filed Vital Signs Vital Sign Reading Time Taken Comments Blood Pressure 117/58 11/29/2017 8:18 AM EST Pulse 51 11/29/2017 8:18 AM EST Temperature 36.5 ??C (97.7 ??F) 11/29/2017 8:18 AM EST Respiratory Rate 16 11/29/2017 8:18 AM EST Oxygen Saturation 99% 11/29/2017 8:18 AM EST Inhaled Oxygen Concentration - - Weight 66.4 kg (146 lb 6.4 oz) 11/29/2017 8:18 AM EST Height 160.5 cm (5' 3.19) 11/29/2017 8:18 AM EST Body Mass Index 25.78 11/29/2017 8:18 AM EST documented in this encounter Patient Instructions Patient InstructionsBaGiorgio luciano MD - 11/29/2017 9:00 AM EST Think about colonoscopy documented in this encounter Progress Notes Giorgio Cardona MD - 11/29/2017 9:00 AM EST Established Patient Follow-up Visit History of Presenting Illness: Patient here to followup on acute and chronic medical issues 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 Going well at this time. Trouble with the eyes - hard time with them - slowly getting worse Eyes/nose running at this time - keeps coughing up stuff. Worse in the morning - not coughing Worse when sick. Has not had CT scan done - ordered in September - not done. Did not have appt with [facility] as well. Cannot walk a plank anymore - fell and hit self. Not hydrated - not drinking and stool small. Seems as though PCP was changed to GERD is impacted by foods he eats. Declines colonoscopy at this time despite. We discussed this today. Patient reported measures in the past 7 days Pain:2 Physical Health:Fair Mental Health: Patient Active Problem [...] features. 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 [id number]; KRAS negative, EGFR negative --09/2010: CT scan - normal --02/2011: CT scan --09/2011: CT scan - negative annual CT's afterwards Outpatient Encounter Prescriptions as of 11/29/2017 Medication Sig Dispense Refill ??? polyethylene glycol (MIRALAX) 17 gram Powder in Packet Take 17 g by mouth daily. ??? omeprazole (PRILOSEC) 20 mg Capsule, Delayed [...] by mouth every morning. 30 tablet 12 No facility-administered encounter medications on file as of 11/29/2017. Social History Social History ??? Marital status: Single Spouse name: N/A ??? Number of children: N/A ??? Years of education: N/A Social History Main Topics ??? Smoking status: Never Smoker ??? Smokeless tobacco: Never Used ??? Alcohol use Yes Comment: RARE ??? Drug use: No ??? Sexual activity: Not Asked Other Topics Concern ??? None Social History Narrative Review of Symptoms. Constitutional - (- ) [...] at rest or with movement Objective Vitals: 11/29/17 0818 BP: 117/58 BP Location (NBP): Right arm Patient Position: Sitting BP Cuff Sizes: Adult (25-34 cm) Pulse: 51 Resp: 16 Temp: 36.5 ??C (97.7 ??F) TempSrc: Oral SpO2: 99% Weight: 66.4 kg (146 lb 6.4 oz) Height: 160.5 cm (5' 3.19) Gen -no acute distress. Alert, responsive and comfortable HEENT - oropharynx moist without lesions Neck - Full range of motion, no bruits, no lymphadenopathy or thyromegaly. No increase in JVD. Lungs - slight wheezes, no crackles. Chest/Back - No spinal tenderness. No visible deformities or scoliosis appreciated. Heart - RRR, S1,S2, no murmur, gallop or rub Abdomen - Soft, nontender, no hepatosplenomegaly, masses or distention, normal active bowel sounds Extremities - No edema Skin - No rashes, lesions, plaques, nodules Neurological - grossly normal Gait: grossly intact with normal stride length, speed, and arm swing Assessment/Plan: . Post-nasal drip/allergic rhinitis ?? # Hoarseness Discussed today - conservative management. 2. Hyperthyroidism s/p radioactive iodine ?? 3. 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 --continue to monitor biochemical parameters ?? 4. DJD Knee ?? -- Very pleased with results. ?? 5. S/p Mitral Regurgitation ?? --repeat in 1-2 years 6. Depression/Insomnia ?? --see below ?? 7. Lung Cancer ?? --recent CT scan 09/2015 satisfactory. Needs repeat now --also wheezing - suggest PFTs - may benefit from steroid inhaler. 8. Pancreatic Lesion ?? --last MRI was in March 2013 - recommendation was stability and hence no need for further f/u. 9. GERD ?? Take prilosec regularly 10. Prostate Cancer ?? Will see Rad onc ??regularly 11. Hypertension ?? Hypertension Plan of Care [X] Stable and controlled: continue current medications as prescribed ?? [ ] Uncontrolled: change medication as follows: ?? [ ] Life style modifications discussed: weight loss, low salt diet, exercise and moderation of alcohol intake ?? [ ] Return for assessment in ?? This plan of care was made in collaboration with the patient/family ?? 13. Dyslipidemia ?? Repeat in the summer 14. Preventative Will verify with insurance re: zostavax. Suggest colonoscopy at this time considering polyps. No advanced directive. Daughter would make decision (Erin). 15. Dizziness Suspect this is mild dehydration - will continue to observe Patient Instructions: Patient Instructions Think about colonoscopy I counselled the patient on the above [...] or myD. Next Appointment: Return in about 6 months (around 05/29/2018) for awv. Total time: Minutes, Of the visit time was spent in etdh-en-wkld counselling of the above issues Orders placed in this Encounter: Orders Placed This Encounter Procedures ??? Referral to Gastroenterology Referral Priority: Routine Referral Type: Consultation Referral Reason: Test Only Referred to Provider: Rosie Kuo MD Number of Visits Requested: 1 ??? Pulmonary Function Testing Standing Status: Future Standing Expiration Date: 05/31/2018 Order Specific Question: PFT Basic Bundle: (Pulse Oximetry, Joaquim w/o Bronchodilator, Diffusing Capacity) Answer: X Order Specific Question: Spirometry w/o Bronchodilator Answer: X Laboratory Studies No results found for this or any previous visit (from the past 72 hour(s)). documented in this encounter Plan of Treatment Upcoming Encounters Date Type Specialty Care Team Description 10/11/2022 Office Visit Dermatology Virgilio Mckeon MD [facility] DR CHRISTIANO HENSON-DERMAT [place], [place] [address] ( rk) 10/16/2022 Office Visit Otolaryngology Frank Buchanan MD [facility] OTOLARYNGOLOGY Sarah EPT. [place], [place] [address] ( rk) 11/29/2022 Appointment Hematology and Oncology 11/29/2022 Office Visit Radiation Oncology Emerald Leyva APRN [facility] RADIATION ONCCESAR [place], [place] [address] (Wo rk) Scheduled Referrals Name Type Priority Associated Order Schedule Diagnoses Referral to Outpatient Routine Preventive measure Ordered: Gastroenterology Referral 11/29/2017 documented as of this encounter Visit Diagnoses Diagnosis Vocal cord paralysis Paralysis of vocal cords or larynx, unsp ecified S/P thyroidectomy Other postprocedural status S/P mitral valve repair Other postprocedural status Prostate cancer Malignant neoplasm of prostate Post-nasal drip Postnasal drip Pancreatic cyst Cyst and pseudocyst of pancreas Primary osteoarthritis involving multipl e joints Malignant neoplasm of hilus of lung, uns pecified laterality Anxiety Anxiety state, unspecified Preventive measure Unspecified prophylactic or treatment me asure documented in this encounter Care Teams Gallery Or Museum Guide Relationship Specialty Start Date End Date Giorgio Cardona MD PCP - General General Internal Medicine 11/29/17 0 [facility] [place] [address] documented as of this encounter
--- OUTSIDE RECORDS SUMMARY | 2022-10-09 16:15 | XMS_ITS | Encounter Summary ---
:1940 Author Organization [facility] [place] [address] Care Team Providers Name Role Phone Giorgio Cardona MD Primary Care Provider Reason for Visit Reason Comments Skin Check Encounter Details Date Type Department Care Team Description 09/08/2016 Office Visit Dermatology at [facility] (actinic keratosis); Emilia VELEZ MD Seborrheic keratosis, inflamed; [address] [facility] [place] [address] [facility] [place], [place] [address] Social History Tobacco Use Types Packs/Day Years Used Date Smoking Tobacco: Never Smokeless Tobacco: Never Alcohol Use Standard Drinks/Week Comments Yes 0 (1 standard drink = 0.6 oz pure alcoho l) RARE Sex Assigned at Date Recorded Not on file documented as of this encounter Progress Notes Mendy Faye LPN - 09/08/2016 7:45 AM EDT DERMATOLOGY ESTABLISHED PATIENT CLINIC NOTE Date of service: 09/08/2016 Alfredito Mina : 1940 Provider: Rigoberto Jackson MD PROBLEM: skin cancer screening SKIN HISTORY: 11/23/2014 ---Pathologic Diagnosis--- Treated with ED&C, right mid lateral back 12/08/2014 A - Skin, right mid lateral back, shave biopsy: Basal cell carcinoma, superficial type, extending to both peripheral margins. 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 Seborrheic Keratoses HPI Alfredito Mina is a 76 y.o. year old male. He is an established patient last seen on 08/02/15. He requests a full skin exam. He has a bunch on his upper thigh and some spots on his back. He is leaving for [place] soon. He has been in good health. He is hard of hearing. ADR: Allergies Allergen Reactions ??? Cyclobenzaprine Urinary retention, xerostomia ??? Lactose Other (See Comments) Sneezing CURRENT MEDICATIONS: Current Outpatient Prescriptions Medication Sig Dispense Refill ??? polyethylene glycol [...] mouth every morning. 30 tablet 12 No current facility-administered medications for this visit. [...] cell carcinoma C44.91 ??? 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 Oriented X 3. Skin: denies other skin complaints EXAM General: NAD, pleasant, cooperative Skin: Patient was asked to disrobe to the level of their comfort. A total body skin exam except for the genitalia was performed. This includes examination of the skin of the face, ears, neck, chest, axillae, left and right upper and lower extremities, hands, feet, abdomen, back, and buttocks. The genitalia, perineum, and perianal areas were not examined. Significant skin findings: A. 0.2-0.3cm scaly irregular pink papule(s) vertex of scalp x 2, right dorsal hand x 2, right forearm x 2, upper back B. Left inguinal crease - pigmented papule with erythema and irritation from clothing C. Multiple 0.2-0.4cm bright red, well-demarcated papules on the trunk Procedure Screening Questions: ? No? Yes ?? Defibrillator/Pacemaker?? x ?? Artificial Joints?years ago Heart Valves? Blood Thinners?? x ?? Prophylactic Antibiotics?? x ?? ASSESSMENT/PLAN: A. Actinic Keratosis - vertex of scalp x 2, right dorsal hand x 2, right forearm x 2, upper back I discussed this condition with the patient and explored therapeutic options. I recommended this be treated with LN2, patient is in agreement to this treatment plan. Instructed to call if areas do not resolve as expected or if problems arise. If lesions fail to resolve, further work-up may be needed. Procedure Note: Procedure: Destruction of lesion(s) with cryotherapy. Number: 7 Location: as above Discussed procedure and expectations including risks (including risk of hypopigmentation) and benefits. Verbal consent obtained. Frozen with LN2, ONCE. There were no complications; the patient tolerated the procedure well. Post- procedure expectations and wound care were reviewed. B. Inflamed seborrheic keratosis - left inguinal crease I discussed this condition with the patient and explored therapeutic options. I recommended this betreated with LN2 and he agreed. Procedure Note: Procedure: Destruction of lesion(s) with cryotherapy. Number: 1 Location: as above Discussed procedure and expectations including risks (including risk of hypopigmentation) and benefits. Verbal consent obtained. Frozen with LN2, 15-30 second thaw time, TWICE. There were no complications; the patient tolerated the procedure well. Post-procedure expectations and wound care were reviewed. Call if areas do not resolve as expected or problems arise. C. Maloney Angioma(s) - Trunk Asymptomatic - Reassure- areas -Call if problems arise RTC - 12 Months; sooner if needed I am documenting this encounter acting as the scribe for and in the presence of Dr. Jackson.: MENDY FAYE LPN I performed the above scribed service and agree with the accuracy of the documentation in this encounter. Rigoberto Jackson MD Section of Dermatology [facility] documented in this encounter Plan of Treatment Upcoming Encounters Date Type Specialty Care Team Description 10/11/2022 Office Visit Dermatology Virgilio Mckeon MD [facility] DR CHRISTIANO HENSON-DERMAT OLOGY [place], [place] [address] (Leroy bhatia) 10/16/2022 Office Visit Otolaryngology Frank Buchanan MD [facility] OTOLARYNGOLOGY Sarah DE [place]. [place], [place] [address] (Leroy bhatia) 11/29/2022 Appointment Hematology and Oncology 11/29/2022 Office Visit Radiation Oncology Emerald Leyva APRN [facility] RADIATION ONCCESAR GY [place], [place] [address] (Leroy bhatia) documented as of this encounter Visit Diagnoses Diagnosis AK (actinic keratosis) Actinic keratosis Seborrheic keratosis, inflamed Inflamed seborrheic keratosis Maloney angioma Nevus, non-neoplastic documented in this encounter Care Teams Clay Digger Relationship Specialty Start Date End Date Giorgio Cardona MD PCP - General 10/04/10 04/10/17 [facility] GENER[place] [address] documented as of this encounter
--- OUTSIDE RECORDS SUMMARY | 2022-10-09 16:15 | XMS_ITS | Encounter Summary ---
:1940 Author Organization [facility] [place] [address] Care Team Providers Name Role Phone Giorgio Cardona MD Primary Care Provider Encounter Details Date Type Department Care Team Description 09/14/2016 Telephone Otolaryngology at [facility] [place] [address] Social History Tobacco Use Types Packs/Day Years Used Date Smoking Tobacco: Never Smokeless Tobacco: Never Alcohol Use Standard Drinks/Week Comments Yes 0 (1 standard drink = 0.6 oz pure alcoho l) RARE Sex Assigned at Date Recorded Not on file documented as of this encounter Miscellaneous Notes Telephone Encounter - Humaira Velez - 09/14/2016 11:02 AM EDT Completed What is your primary concern for scheduling an appointment today? [x] Reason 1:voice Reason 2: Reason 3: Have you seen an ENT provider in the past? [x] Notes: paydarfar Have you ever had surgery in the past? [] If so what surgery? When and where? Notes: everything done here Do you have any imaging (x-rays, CT Scans, MRIs, PET Scans) [] Please contact the organization where theses tests were completed and have them send to us prior to your appointment. This would include the images along with the report. MRI of: Everything done here Date: CT of Date: X-rays of: Date: Have you previously seen an [place] Singer or have had a hearing test [] within the last year? Date: Location: Do you currently wear hearing aid? [] What brand? Please provide all notes prior to your appointment. If we do not get the nececessary information we might have to reschedule your appointment. Please have them faxed to [phone]. Should you have any questions regarding your appointment, please contact [x] us at [phone]. For Head and Neck Only: Have you had radiation or Chemotherapy? [] Please send us records prior to your appointment documented in this encounter Plan of Treatment Upcoming Encounters Date Type Specialty Care Team Description 10/11/2022 Office Visit Dermatology Virgilio Mckeon MD [facility] DR CHRISTIANO HENSON-DERMAT OLOGY [place], [place] [address] (Wo rk) 10/16/2022 Office Visit Otolaryngology Frank Buchanan MD [facility] OTOLARYNGOLOGY Sarah EPT. [place], [place] [address] (Wo rk) 11/29/2022 Appointment Hematology and Oncology 11/29/2022 Office Visit Radiation Oncology Emerald Leyva APRN [facility] RADIATION ONCOLO GY [place], [place] [address] (Wo rk) documented as of this encounter Visit Diagnoses Not on filedocumented in this encounter Care Teams Motorcycle Racer Relationship Specialty Start Date End Date Giorgio Cardona MD PCP - General 10/04/10 04/10/17 [facility] [place] [address] documented as of this encounter
--- OUTSIDE RECORDS SUMMARY | 2022-10-09 16:15 | XMS_ITS | Encounter Summary ---
:1940 Author Organization [facility] [place] [address] Care Team Providers Name Role Phone Giorgio Cardona MD Primary Care Provider Encounter Details Date Type Department Care Team Description 03/21/2017 Telephone Internal Medicine at [facility] [place] [address] Social History Tobacco Use Types Packs/Day Years Used Date Smoking Tobacco: Never Smokeless Tobacco: Never Alcohol Use Standard Drinks/Week Comments Yes 0 (1 standard drink = 0.6 oz pure alcoho l) RARE Sex Assigned at Date Recorded Not on file documented as of this encounter Miscellaneous Notes Telephone Encounter - Christa Mckeon CMA - 03/21/2017 9:44 AM EDT LM for Pt reminding him of appointment and asking him to come in at 8:30 to get lab work done that Dr. Cardona has ordered. Christa Mckeon CMA documented in this encounter Plan of Treatment Upcoming Encounters Date Type Specialty Care Team Description 10/11/2022 Office Visit Dermatology Virgilio Mckeon MD [facility] ER DR CHRISTIANO HENSON-DERMAT [place], [place] [address] (Wo rk) 10/16/2022 Office Visit Otolaryngology Frank Buchanan MD [facility] OTOLARYNGOLOGY Sarah EPT. [place], [place] [address] (Wo rk) 11/29/2022 Appointment Hematology and Oncology 11/29/2022 Office Visit Radiation Oncology Emerald Leyva APRN [facility] RADIATION ONCOLO GY [place], [place] [address] (Wo rk) documented as of this encounter Visit Diagnoses Not on filedocumented in this encounter Care Teams Matrix Repairer Relationship Specialty Start Date End Date Giorgio Cardona MD PCP - General 10/04/10 04/10/17 [facility] [place] [address] documented as of this encounter
--- OUTSIDE RECORDS SUMMARY | 2022-10-09 16:15 | XMS_ITS | Encounter Summary ---
:1940 Author Organization [facility] [place] [address] Care Team Providers Name Role Phone Giorgio Cardona MD Primary Care Provider Reason for Visit Reason Onset Date Comments Triage 03/12/2017 Encounter Details Date Type Department Care Team Description 03/12/2017 Telephone Internal Medicine at [facility] [place] [address] Social History Tobacco Use Types Packs/Day Years Used Date Smoking Tobacco: Never Smokeless Tobacco: Never Alcohol Use Standard Drinks/Week Comments Yes 0 (1 standard drink = 0.6 oz pure alcoho l) RARE Sex Assigned at Date Recorded Not on file documented as of this encounter Miscellaneous Notes Telephone Encounter - Lorene Urias RN - 03/12/2017 2:50 PM EDT Patient appt changed to 30 minutes. Labs ordered, patient notified. Telephone Encounter - Lorene Urias RN - 03/12/2017 1:52 PM EDT I spoke with Mr. Mina and I was able to get him in to see Dr. Cardona, his preferred provider, on 03/22. He said that he had a stool sample done at the [facility] over a month ago that was positive for blood but he just got these results yesterday after returning from [place]. He said that he noticed some blood on the toilet paper at times but now that he has received these results heis really worried. Dr. Cardona - I gave him 60 minutes, is that too much time? He did not want to see Fadia. Telephone Encounter - Edelmira Ernst - 03/12/2017 9:35 AM EDT Patient wants to see Giorgio Cardona MD because he had some testing done in [place] over a month ago which showed blood in his stool. Patient states he did see some other providers in [place] but they did nothing for him and he wants to see his PCP only. First opening with PCP is at least a couple weeks out so he is wondering if he may be able to see him any sooner than that. documented in this encounter Plan of Treatment Upcoming Encounters Date Type Specialty Care Team Description 10/11/2022 Office Visit Dermatology Virgilio Mckeon MD [facility] DR CHRISTIANO HENSON-DERMAT OLOGY [place], [place] [address] (Wo rk) 10/16/2022 Office Visit Otolaryngology Frank Buchanan MD [facility] OTOLARYNGOLOGMireille Smith EPT. [place], [place] [address] (Wo rk) 11/29/2022 Appointment Hematology and Oncology 11/29/2022 Office Visit Radiation Oncology Emerald Leyva APRN [facility] RADIATION ONCCESAR GY [place], [place] [address] (Wo rk) documented as of this encounter Visit Diagnoses Not on filedocumented in this encounter Care Teams Display Designer Outside Relationship Specialty Start Date End Date Giorgio Cardona MD PCP - General 10/04/10 04/10/17 [facility] [place] [address] documented as of this encounter
--- OUTSIDE RECORDS SUMMARY | 2022-10-09 16:15 | XMS_ITS | Encounter Summary ---
:1940 [place] [address] Care Team Providers Name Role Phone Giorgio Cardona MD Primary Care Provider Reason for Visit Reason Onset Date Comments Triage 10/17/2016 Encounter Details Date Type Department Care Team Description 10/17/2016 Telephone Internal Medicine at [facility] [place] [address] Social History Tobacco Use Types Packs/Day Years Used Date Smoking Tobacco: Never Smokeless Tobacco: Never Alcohol Use Standard Drinks/Week Comments Yes 0 (1 standard drink = 0.6 oz pure alcoho l) RARE Sex Assigned at Date Recorded Not on file documented as of this encounter Miscellaneous Notes Telephone Encounter - Rochelle Dunaway RN - 10/17/2016 10:14 AM EST Call placed to the number listed. No answer. Message left for the pt to call the clinic to schedule an appointment ot be seen by Jason Rendon APRN. FYI sent to Brendan team. Telephone Encounter - Ebonie White - 10/17/2016 9:20 AM EST Message: Pt is calling stating that he has a cyst on his right big toe. He states that he had kneesurgery a couple of years ago and he walked with his right foot sideways for a while. He thinks thatis what might have caused a cyst Caller and relationship (if other than patient-full name): self Best time to call back: any Ok to leave a message: [y] Ok to send my- message: [] Offered Appointment: Nurse contacted via: Message: x Call: Pager: documented in this encounter Plan of Treatment Upcoming Encounters Date Type Specialty Care Team Description 10/11/2022 Office Visit Dermatology Virgilio Mckeon MD [facility] DR CHRISTIANO HENSON-DERMAT OLOGY [place], [place] [address] (Wo rk) 10/16/2022 Office Visit Otolaryngology Frank Buchanan MD [facility] OTOLARYNGOLOGY D EPT. [place], [place] [address] (Wo rk) 11/29/2022 Appointment Hematology and Oncology 11/29/2022 Office Visit Radiation Oncology Emerald Leyva APRN [facility] RADIATION ONCOLO GY [place], [place] [address] (Wo rk) documented as of this encounter Visit Diagnoses Not on filedocumented in this encounter Care Teams Application Support Engineer Relationship Specialty Start Date End Date Giorgio Cardona MD PCP - General 10/04/10 04/10/17 [facility] [place] [address] documented as of this encounter
--- OUTSIDE RECORDS SUMMARY | 2022-10-09 16:15 | XMS_ITS | Encounter Summary ---
:1940 Author Organization [facility] Address [facility] [place] [address] Care Team Providers Name Role Phone Giorgio Cardona MD Primary Care Provider Reason for Visit Reason Comments Skin Check Encounter Details Date Type Department Care Team Description 08/02/2015 Follow-Up Dermatology at [facility] eborrheic keratosis, inflamed; Road IIIMD Common wart; [address] [facility] [place] [address] [facility]-DER[facility] [place], [place] [address] (Wo rk) Social History Tobacco Use Types Packs/Day Years Used Date Smoking Tobacco: Never Smokeless Tobacco: Never Alcohol Use Standard Drinks/Week Comments Yes 0 (1 standard drink = 0.6 oz pure alcoho l) RARE Sex Assigned at Date Recorded Not on file documented as of this encounter Progress Notes Mendy Faye LPN - 08/02/2015 9:18 AM EDT DERMATOLOGY ESTABLISHED PATIENT CLINIC NOTE Date of service: 08/02/2015 Alfredito Mina : 1940 Provider: Rigoberto Jackson MD PROBLEM: spot check SKIN HISTORY: 11/23/2014 ---Pathologic Diagnosis--- Treated with ED&C, right mid lateral back 12/08/2014 A - Skin, right mid lateral back, shave biopsy: Basal cell carcinoma, superficial type, extending to both peripheral margins. 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 Seborrheic Keratoses HPI Alfredito Mina is a 75 y.o. year old male. He is an established patient last seen in May of this year. He is leaving to go to [place] soon and wanted a couple of spots on his scalp and back checked. The spot on his back is very itchy. Overall he is doing well. ADR: Allergies Allergen Reactions ??? Cyclobenzaprine Urinary retention, xerostomia ??? Lactose Other (See Comments) Sneezing CURRENT MEDICATIONS: Current Outpatient Prescriptions Medication Sig Dispense Refill ??? albuterol (PROVENTIL HFA;VENTOLIN HFA) 90 mcg/actuation HFA Aerosol Inhaler Inhale 2 puffs into the lungs every 4 hours as needed for Wheezing. Use with spacer 1 Inhaler 1 ??? omeprazole (PRILOSEC) 20 mg Capsule, Delayed Release(E.C.) Take 1 capsule by mouth 2 times daily. ??? potassium chloride (K-DUR/KLOR-CON) 10 mEq extended release tablet Take 1 tablet by mouth daily.30 tablet 11 ??? polyethylene glycol (MIRALAX) 17 gram packet Take 17 g by mouth daily. ??? atenolol (TENORMIN) 50 mg tablet TAKE ONE-HALF TABLET BY MOUTH EVERY DAY 45 tablet 3 ??? albuterol (PROVENTIL HFA;VENTOLIN HFA) 90 mcg/actuation inhaler Inhale 2 puffs into the lungs every 4 hours as needed for Wheezing. Use with spacer 1 Inhaler 1 ??? furosemide (LASIX) 20 mg tablet Take 1 tablet by mouth daily. 30 tablet ??? terazosin (HYTRIN) 2 mg capsule Take 1 capsule by mouth nightly. ??? levothyroxine (SYNTHROID) 125 mcg tablet Take 1 tablet by mouth every morning. 30 tablet 12 No current facility-administered medications for this visit. PROBLEM LIST: Patient Active Problem List Diagnosis Code ??? Constipation 564.00 ??? Dyslipidemia 272.4 ??? GERD (gastroesophageal reflux disease) 530.81 ??? Hypertension 401.9 ??? Impaired fasting glucose 790.21 ??? Lung cancer 162.9 ??? S/P mitral valve repair V45.89 ??? Multinodular goiter 241.1 ??? Osteoarthritis 715.90 ??? Pancreatic cyst 577.2 ??? Prostate cancer 185 ??? Inguinal hernia recurrent unilateral 550.91 ??? Post-nasal drip 784.91 ??? 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 Anxiety 300.00 ??? 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 Dysphagia, unspecified 787.20 ??? Vocal cord paralysis 478.30 ??? Preventative health care V70.0 ??? Diverticulitis 562.11 ??? Aspiration Into Lower Respiratory Tract 934.9 ??? 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 Actinic keratosis 702.0 ??? Basal cell carcinoma 173.91 ??? Primary insomnia 307.42 ROS General: feeling well. Oriented X 3. Skin: denies other skin complaints EXAM General: NAD, pleasant, cooperative Skin: Examination of skin from the waist up was performed. This includes examination of the skin of the face, ears, neck, chest, axillae, left and right upper extremities, hands, back, and abdomen. Significant skin findings: A. Verrucous papule right forearm. Irritated at times. Pin-point vascular pattern noted on dermoscopy. B. Multiple 0.4-0.6cm brown papules with waxy, stuck-on appearance on his back and left forearm thatare inflamed and itchy. Milia-like cysts, comedone-like openings and/or fissuring on dermoscopy. Time out questions: Heart valve - no Artificial joint - TKA many years ago Blood thinner - no Pacemaker / defibrillator- no ASSESSMENT/PLAN: Ishmael Arguello - I discussed this condition with the patient and explored therapeutic options. I recommended this be treated with LN2. Procedure Note: Procedure: Destruction of lesion(s) with cryotherapy. Number: 1 Location: as above Discussed procedure and expectations including risks (including risk of hypopigmentation) and benefits. Verbal consent obtained. Frozen with LN2, 15-30 second thaw time, TWICE. There were no complications; the patient tolerated the procedure well. Post-procedure expectations and wound care were reviewed. B. Inflamed seborrheic keratoses - back and left forearm. I discussed this condition with the patient and explored therapeutic options. I recommended these could be treated with LN2. Procedure Note: Procedure: Destruction of lesion(s) with cryotherapy. Number: 6 Location: as above Discussed procedure and expectations including risks (including risk of hypopigmentation) and benefits. Verbal consent obtained. Frozen with LN2, 15-30 second thaw time, TWICE. There were no complications; the patient tolerated the procedure well. Post-procedure expectations and wound care were reviewed. RTC 6 months - sooner if needed. Call if areas do not resolve as expected or problems arise. The nature of sun-induced photo-aging and skin cancers is discussed. Sun avoidance, protective clothing, and the use of 30-SPF sunscreens is advised. Observe closely for skin damage/changes, and call if such occurs. I am documenting this encounter acting as the scribe for and in the presence of Dr. Jackson.: MENDY FAYE LPN I performed the above scribed service and agree with the accuracy of the documentation in this encounter. Rigoberto Jackson MD Section of Dermatology [facility] documented in this encounter Plan of Treatment Upcoming Encounters Date Type Specialty Care Team Description 10/11/2022 Office Visit Dermatology Virgilio Mckeon MD [facility] DR CHRISTIANO HENSON-DERMAT OLOGY [place], [place] [address] (Leroy bhatia) 10/16/2022 Office Visit Otolaryngology Frank Buchanan MD [facility] OTOLARYNGOLOGY Sarah EPT. [place], [place] [address] (Leroy bhatia) 11/29/2022 Appointment Hematology and Oncology 11/29/2022 Office Visit Radiation Oncology Emerald Leyva APRN [facility] RADIATION ONCCESAR GY [place], [place] [address] (Leroy bhatia) documented as of this encounter Visit Diagnoses Diagnosis Seborrheic keratosis, inflamed Inflamed seborrheic keratosis Common wart Other specified viral warts History of skin cancer Personal history of other malignant neop lasm of skin documented in this encounter Care Teams Ice Skating Teacher Relationship Specialty Start Date End Date Giorgio Cardona MD PCP - General 10/04/10 04/10/17 [facility] GENERAL [place] [address] documented as of this encounter
--- OUTSIDE RECORDS SUMMARY | 2022-10-09 16:15 | XMS_ITS | Encounter Summary ---
:1940 Author Organization [facility] [place] [address] Care Team Providers Name Role Phone Giorgio Cardona MD Primary Care Provider Reason for Visit Reason Onset Date Comments Other 04/06/2016 pre visit reminder Encounter Details Date Type Department Care Team Description 04/06/2016 Telephone Internal Medicine at [facility] (pre visit [facility] CCMA reminder) [place] [address] Social History Tobacco Use Types Packs/Day Years Used Date Smoking Tobacco: Never Smokeless Tobacco: Never Alcohol Use Standard Drinks/Week Comments Yes 0 (1 standard drink = 0.6 oz pure alcoho l) RARE Sex Assigned at Date Recorded Not on file documented as of this encounter Miscellaneous Notes Telephone Encounter - Scarlett Champion MA - 04/06/2016 10:07 AM EDT Spoke with the patient asked if he can come today around 12o'clock to do chest Xray and blood work. Patient verbally agreed. documented in this encounter Plan of Treatment Upcoming Encounters Date Type Specialty Care Team Description 10/11/2022 Office Visit Dermatology Virgilio Mckeon MD [facility] DR CHRISTIANO H[place]SON[place], [place] [address] (Wo rk) 10/16/2022 Office Visit Otolaryngology Frank Buchanan MD [facility] OTOLARYNGOLOGY Sarah EPT. [place], [place] [address] (Wo rk) 11/29/2022 Appointment Hematology and Oncology 11/29/2022 Office Visit Radiation Oncology Emerald Leyva APRN [facility] RADIATION ONCOLO GY [place], [place] [address] (Wo rk) documented as of this encounter Visit Diagnoses Not on filedocumented in this encounter Care Teams Flower Stripper Relationship Specialty Start Date End Date Giorgio Cardona MD PCP - General 10/04/10 04/10/17 [facility] [place] [address] documented as of this encounter
--- OUTSIDE RECORDS SUMMARY | 2022-10-09 16:15 | XMS_ITS | Encounter Summary ---
:1940 Author Organization [facility] Address [facility] [place] [address] Care Team Providers Name Role Phone Giorgio Cardona MD Primary Care Provider Encounter Details Date Type Department Care Team Description 04/06/2016 Telephone Internal Medicine at [facility] Giorgio Cardona [place] [facility] [place] [phone] GENERAL INTERNAL MEDICINE [phone] [place], [place] [address] (Wo rk) Social History Tobacco Use Types Packs/Day Years Used Date Smoking Tobacco: Never Smokeless Tobacco: Never Alcohol Use Standard Drinks/Week Comments Yes 0 (1 standard drink = 0.6 oz pure alcoho l) RARE Sex Assigned at Date Recorded Not on file documented as of this encounter Miscellaneous Notes Telephone Encounter - Katya Nicholas LPN - 04/06/2016 8:38 AM EDT TC from patient requesting same day appointment Alfredito states, I went to the ED in [facility] on Sunday because I was not feeling well. I have been wheezing and coughing up large amounts of white phlegm. I am also experiencing SOB when I cough and with exertion. I don't feel good and I have had chills off and on during the day and night. I was started on Azithromycin 250 mg , one po daily x 5 days and Prednisone 20 mg, two po daily x 5 days and I am still not feeling well. Denies chest pain, drinking lots of water, appetite is okay. Patient scheduled for 1 pm today for exam and evaluation documented in this encounter Plan of Treatment Upcoming Encounters Date Type Specialty Care Team Description 10/11/2022 Office Visit Dermatology Virgilio Mckeon MD [facility] DR CHRISTIANO HENSON-DERMAT OLOGY [place], [place] [address] (Wo rk) 10/16/2022 Office Visit Otolaryngology Frank Buchanan MD [facility] OTOLARYNGOLOGY Sarah EPT. [place], [place] [address] (Wo rk) 11/29/2022 Appointment Hematology and Oncology 11/29/2022 Office Visit Radiation Oncology Emerald Leyva APRN [facility] RADIATION ONCOLO GY [place], [place] [address] (Wo rk) documented as of this encounter Visit Diagnoses Not on filedocumented in this encounter Care Teams Compliance Counsel Relationship Specialty Start Date End Date Giorgio Cardona MD PCP - General 10/04/10 04/10/17 [facility] [place] [address] documented as of this encounter
--- OUTSIDE RECORDS SUMMARY | 2022-10-09 16:15 | XMS_ITS | Encounter Summary ---
:1940 Author Organization [facility] [place] [address] Care Team Providers Name Role Phone Giorgio Cardona MD Primary Care Provider Reason for Visit Reason Comments Other ? RECTAL BLEEDING, COUGH, Encounter Details Date Type Department Care Team Description 03/22/2017 Office Visit Internal Medicine at Deandre Cardona MD Cough, persistent [facility] [address] [place] [address] MEDICINE [phone] [place], [place] [address] (Wo rk) Social History Tobacco Use Types Packs/Day Years Used Date Smoking Tobacco: Never Smokeless Tobacco: Never Alcohol Use Standard Drinks/Week Comments Yes 0 (1 standard drink = 0.6 oz pure alcoho l) RARE Sex Assigned at Date Recorded Not on file documented as of this encounter Last Filed Vital Signs Vital Sign Reading Time Taken Comments Blood Pressure 122/65 03/22/2017 9:02 AM EDT Pulse 68 03/22/2017 9:02 AM EDT Temperature 36.4 ??C (97.6 ??F) 03/22/2017 9:02 AM EDT Respiratory Rate 16 03/22/2017 9:02 AM EDT Oxygen Saturation 98% 03/22/2017 9:02 AM EDT Inhaled Oxygen Concentration - - Weight 67.5 kg (148 lb 12.8 03/22/2017 9:02 AM WITH SUSU ES ON oz) EDT Height 163.6 cm (5' 4.41) 03/22/2017 9:02 AM WITH SHOE S ON EDT Body Mass Index 25.22 03/22/2017 9:02 AM EDT documented in this encounter Progress Notes Giorgio Cardona MD - 03/22/2017 9:30 AM EDT Established Patient ACUTE Visit History of Presenting Illness: Patient here to followup on acute issues Patient PCP - Giorgio Cardona MD Down Had some watery eyes - went to an eye doctor - dry eyes, wearing glasses at this time. Went to urgent care - no inhaler today but had took antibiotics. Allergies still problematic Has hemorrhoids - not sure Noticed the blood quite a while ago. After wipes self - on the toilet paper. Not in the toilet - can't see it Not embedded in the stool Wants to make sure No pain - stool varies - takes laxative Strains sometimes Appetite is OK, no fevers or chills. Colonoscopy back in 2012 - tubular adenomas Reviewed report - no hemorrhoids observed Reviewed labwork Patient reported measures in the past 7 days Pain:Decline to answer/Don't know Physical Health:Fair Mental Health: Patient Active Problem List Diagnosis ??? Acute URI ??? Cough, persistent ??? Splinter ??? Bunion ??? Primary insomnia [...] directives ??? Vocal cord paralysis ??? Dysphagia, unspecified ??? S/P thyroidectomy ??? Anxiety ??? Retrosternal [...] 10mm lesion --recommended MRi Oct 2011 ??? Constipation ??? Dyslipidemia --02/2009: HDL-56, TG-68, LDL-81, TC-146. [...] features. 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 [id number]; KRAS negative, EGFR negative --09/2010: CT scan - normal --02/2011: CT scan --09/2011: CT scan - negative annual CT's afterwards Outpatient Encounter Prescriptions as of 03/22/2017 Medication Sig Dispense Refill ??? azithromycin (ZITHROMAX) 250 mg Tablet Day 1: Take 2 tablets daily, Day 2 - 5: Take one tablet daily 6 tablet 0 ??? polyethylene glycol (MIRALAX) 17 gram Powder [...] mouth every morning. 30 tablet 12 ??? benzonatate (TESSALON) 100 mg Capsule Take 1 capsule by mouth 3 times daily as needed for Cough.(Patient not taking: Reported on 03/22/2017) 30 tablet 0 No facility-administered encounter medications on file as of 03/22/2017. Social History Social History ??? Marital status: [...] )wheezing HEENT - ( -) diffculty swallowing (+ ) nasal congestion, postnasal drip Neurological - ( -) numbness, tingling, loss [...] at rest or with movement Objective Vitals: 03/22/17 0902 BP: 122/65 BP Location (NBP): Right arm Patient Position: Sitting BP Cuff Sizes: Adult (25-34 cm) Pulse: 68 Resp: 16 Temp: 36.4 ??C (97.6 ??F) TempSrc: Oral SpO2: 98% Weight: 67.5 kg (148 lb 12.8 oz) Height: 163.6 cm (5' 4.41) Gen -no acute distress. Alert, responsive and comfortable HEENT - oropharynx moist without lesions Neck - Full range of motion, no bruits, no lymphadenopathy or thyromegaly. No increase in JVD. Lungs - ++ wheezes, no crackles. Coarse air entry Chest/Back - No spinal tenderness. No visible deformities or scoliosis appreciated. Heart - RRR, S1,S2, no murmur, gallop or rub Abdomen - Soft, nontender, no hepatosplenomegaly, masses or distention, normal active bowel sounds Extremities - No edema Rectal - hemoccult negative. No rectal maasses Skin - No rashes, lesions, plaques, nodules Neurological - grossly normal Gait: grossly intact with normal stride length, speed, and arm swing Assessment/Plan: # Rectal Bleeding Not happening every time Notices once in a while - depends if straining/hard or soft he notes Has hx of tubular adenoma Labs are normal - this intermittent pattern with straining does not suggest a malignant pathology Will continue to monitor Keep stools soft # Coarse Air Entry Suggest CXR today. sats ok. May need prednisone - continue with inhaler. Reviewed CXR after visit - does not appear to be pneumonia - will start on prednisone 40mg x 3 d, 30mg x 3d, 20mg x 3d, 10mg x 3d, then stop I counselled the patient on the above [...] by one of my nurses, letter, or [facility]. Next Appointment: No Follow-up on file. Laboratory Studies Recent Results (from the past 72 hour(s)) CMP w/fasting Glucose Result Value Ref Range Glucose Fasting 121 (H) 65 - 99 mg/dL BUN 19 10 - 20 mg/dL Creatinine 1.15 0.80 - 1.50 mg/dL Sodium 141 135 - 145 mmol/L Potassium 4.7 3.5 - 5.0 mmol/L Chloride 100 98 - 107 mmol/L CO2 28 22 - 31 mmol/L Anion Gap 13 5 - 15 mmol/L Calcium 9.0 8.5 - 10.5 mg/dL Total Protein 7.1 6.1 - 8.0 gm/dL Albumin 3.9 3.2 - 5.2 gm/dL AST 16 0 - 39 unit/L ALT 10 0 - 55 unit/L Alk Phos 75 40 - 120 unit/L Total Bilirubin 0.5 0.2 - 1.3 mg/dL Bili, Direct 0.1 0.0 - 0.3 mg/dL Estimated GFR >60 >=60 Iron and TIBC Result Value Ref Range Iron 80 45 - 160 mcg/dL TIBC 222 (L) 250 - 450 mcg/dL Iron Saturation 36 20 - 50 % Hemogram Result Value Ref Range WBC 4.0 4.0 - 9.5 x10(3)/mcL RBC 4.49 (L) 4.58 - 5.54 x10(6)/mcL Hemoglobin 14.6 13.7 - 16.5 gm/dL Hematocrit 43.1 40.5 - 48.5 % MCV 96.0 (H) 82.9 - 93.1 fL MCH 32.5 (H) 27.5 - 32.1 pg MCHC 33.9 32.0 - 35.7 gm/dL Platelets 169 145 - 357 x10(3)/mcL RDWSD 47.5 (H) 36.0 - 45.0 fL RDWCV 13.3 11.4 - 13.8 % MPV 10.8 7.6 - 12.9 fL nRBC % Auto 0.0 % nRBC Abs Auto 0.000 0.000 - 0.000 x10(3)/mcL Differential, Automated Result Value Ref Range Neutrophils % 54.7 % Neutr Abs (ANC) 2.19 1.70 - 6.10 x10(3)/mcL Lymphocytes % 26.7 % Lymphocytes Abs 1.1 0.9 - 3.2 x10(3)/mcL Monocytes % 14.2 % Monocyte Abs 0.6 0.3 - 0.9 x10(3)/mcL Eosinophils % 3.7 % Eosinophils Abs 0.2 0.0 - 0.4 x10(3)/mcL Basophils % 0.5 % Basophils Abs 0.0 0.0 - 0.1 x10(3)/mcL Immature Gran % 0.20 % Becki Gran Abs 0.01 0.00 - 0.04 x10(3)/mcL documented in this encounter Plan of Treatment Upcoming Encounters Date Type Specialty Care Team Description 10/11/2022 Office Visit Dermatology Virgilio Mckeon MD [facility] DR CHRISTIANO HENSON-DERMAT OLOGY [place], [place] [address] (Wo rk) 10/16/2022 Office Visit Otolaryngology Frank Buchanan MD [facility] OTOLARYNGOLOGY Sarah EPT. [place], [place] [address] (Wo rk) 11/29/2022 Appointment Hematology and Oncology 11/29/2022 Office Visit Radiation Oncology Emerald Leyva APRN [facility] RADIATION ONCCESAR GY [place], [place] [address] (Wo rk) documented as of this encounter Results XR Chest PA & Lateral (Generic) (03/22/2017 9:40 AM EDT) Anatomical Region Laterality Modality Chest N/A Digital Radiography Specimen (Source) Anatomical Location Collection Method / Collectio n Time Received Time / Laterality Volume Impressions 03/22/2017 10:15 AM EDT No pneumonia or other interval change. Narrative 03/22/2017 10:15 AM EDT EXAMINATION: XR CHEST PA AND LATERAL (GENERIC) CLINICAL HISTORY: coarse a/e TECHNIQUE: Standing PA and lateral chest COMPARISON: 04/06/2016 FINDINGS: There is no interval change. In particul ar, there are no new pulmonary opacities to suggest pneumonia. Again noted are em physema, blunting of the RIGHT costophrenic angle, sternotomy wires and a repaired mitral valve. Procedure Note Kaushik Roberts MD - 03/22/2017Formatt ing of this note might be different from the original. EXAMINATION: XR CHEST PA AND LATERAL (GE NERIC) CLINICAL HISTORY: coarse a/e TECHNIQUE: Standing PA and lateral chest COMPARISON: 04/06/2016 FINDINGS: There is no interval change. In particul ar, there are no new pulmonary opacities to suggest pneumonia. Again noted are em physema, blunting of the RIGHT costophrenic angle, sternotomy wires and a repaired mitral valve. IMPRESSION No pneumonia or other interval change. Giorgio Cardona MD IMG DX ORDERABLES documented in this encounter Visit Diagnoses Diagnosis Cough, persistent Cough Cough, persistent Cough documented in this encounter Care Teams Beet Topper Relationship Specialty Start Date End Date Giorgio Cardona MD PCP - General 10/04/10 04/10/[address] [facility] [place] [address] documented as of this encounter
--- OUTSIDE RECORDS SUMMARY | 2022-10-09 16:15 | XMS_ITS | Encounter Summary ---
:1940 Author Organization [facility] [address] Care Team Providers Name Role Phone Giorgio Cardona MD Primary Care Provider Reason for Visit Reason Comments Cough Chills Encounter Details Date Type Department Care Team Description 12/15/2016 Office Visit Internal Medicine at [facility], Fadia Rodriguez, Acu te URI; [facility] LAMINATING MACHINE OFFBEARER Cough, persistent [facility] [place] [address] General Internal [phone] Medicine [place], [place] [address] (Wo rk) Social History Tobacco Use Types Packs/Day Years Used Date Smoking Tobacco: Never Smokeless Tobacco: Never Alcohol Use Standard Drinks/Week Comments Yes 0 (1 standard drink = 0.6 oz pure alcoho l) RARE Sex Assigned at Date Recorded Not on file documented as of this encounter Last Filed Vital Signs Vital Sign Reading Time Taken Comments Blood Pressure 132/73 12/15/2016 3:40 PM EST Pulse 68 12/15/2016 3:40 PM EST Temperature 36.3 ??C (97.3 ??F) 12/15/2016 3:37 PM EST Respiratory Rate 16 12/15/2016 3:37 PM EST Oxygen Saturation 100% 12/15/2016 3:37 PM EST Inhaled Oxygen Concentration - - Weight 68.9 kg (152 lb) 12/15/2016 3:37 PM EST Height - - Body Mass Index 26.5 10/17/2016 2:52 PM EST documented in this encounter Progress Notes Fadia Rendon, LAMINATING MACHINE OFFBEARER - 12/15/2016 4:00 PM EST ESTABLISHED PATIENT VISIT I. HISTORY A. Reason(s) for Visit: Alfredito Mina is a 76 y.o. male asked to be seen for Chief Complaint Patient presents with ??? Cough ??? Chills B. History of Present Illness: Mr. Mina is here with a cough and chills. States that he hasn't felt well for roughly 3 weeks.Coughing up yellow phlegm. Doesn't think he has had a fever, although has had chills. Has some sinuscongestion. Hasn't tried anything over the counter. Has a corneal scratch, saw building maintenance technician for this. On Erythromycin ointment. Has also noticed that he has been more dizzy over the past year. Has increased his fluids thinks this is helping. Patient Active Problem List Diagnosis Code ??? [...] F51.01 ??? Splinter T14.8 ??? Bunion M21.619 Allergies Allergen Reactions ??? Cyclobenzaprine Urinary retention, xerostomia ??? Lactose Other (See Comments) Sneezing Current Outpatient Prescriptions on File Prior to Visit Medication Sig [...] 30 tablet 12 No current facility-administered medications on file prior to visit. C. Review of Systems: Constitutional- no fevers, positive for chills, no weight loss or gain, no fatigue. Neuro- positive for dizziness, no change in vision, no balance issues or recent falls. Cardiovascular- No CP, no palpitations, no angina. Respiratory- No SOB, no NIEVES, no wheeze, positive for cough and sputum production. HEENT- No difficulty swallowing, no difficulty hearing, positive for nasal congestion, no postnasal drip. Gastrointestinal- No abdominal pain, no nausea, no GERD, no constipation, no diarrhea, no blood in stool. - No difficulty urinating, no dysuria, no urinary frequency, no urinary urgency, no incontinence, no nocturia. Musculoskeletal- No weakness, no pain at rest or with movement. Psychiatric- No depression, no anxiety, no memory loss. II. PHYSICAL EXAM: Vitals: 12/15/16 1540 BP: 132/73 Pulse: 68 Resp: Temp: General- No acute distress, conversing without difficulty. ENT- TM clear with normal light reflex, no nasal mucosal edema, oropharynx clear. Eyes- EOMI. PERRL. Neck- No lymphadenopathy, supple, no masses. No bruits. Lungs- Clear to auscultation bilaterally without wheeze or crackles. Heart- RRR, S1, S2, no murmur, gallop or rub. Extremities- No clubbing, cyanosis or edema. Pulses intact. III. ASSESSMENT/PLAN: 76 year old male here with URI. Zpak. Tessalon pearls. Recommend continued increased fluids. He willcall on Sunday if he isn't feeling better. documented in this encounter Plan of Treatment Upcoming Encounters Date Type Specialty Care Team Description 10/11/2022 Office Visit Dermatology Virgilio Mckeon MD [facility] DR CHRISTIANO HENSON-DERMAT OLOGY [place], [place] [address] (Wo rk) 10/16/2022 Office Visit Otolaryngology Frank Buchanan MD [facility] OTOLARYNGOLOGY D EPT. [place], [place] [address] (Wo rk) 11/29/2022 Appointment Hematology and Oncology 11/29/2022 Office Visit Radiation Oncology Emerald Leyva APRN [facility] RADIATION ONCOLO GY [place], [place] [address] (Wo rk) documented as of this encounter Visit Diagnoses Diagnosis Acute URI Acute upper respiratory infections of un specified site Cough, persistent Cough documented in this encounter Care Teams Electric Brain Wave Equipment Mechanic Relationship Specialty Start Date End Date Giorgio Cardona MD PCP - General 10/04/10 04/10/[address] [facility] [place] [address] documented as of this encounter
--- OUTSIDE RECORDS SUMMARY | 2022-10-09 16:15 | XMS_ITS | Encounter Summary ---
:1940 Author Organization [facility] [place] [address] Care Team Providers Name Role Phone Giorgio Cardona MD Primary Care Provider Encounter Details Date Type Department Care Team Description 11/17/2015 Hospital Encounter XRay at [facility] Анна, Taco P, Left foot pain; [address] [facility] [address] GALINDO Fracture, foot, left, closed, initial en counter [facility] [id number] [place] [phone] [place] [address] Social History Tobacco Use Types Packs/Day Years Used Date Smoking Tobacco: Never Smokeless Tobacco: Never Alcohol Use Standard Drinks/Week Comments Yes 0 (1 standard drink = 0.6 oz pure alcoho l) RARE Sex Assigned at Date Recorded Not on file documented as of this encounter Medications at Time of Discharge Medication Sig Dispensed Refills Start Date End Date albuterol (PROVENTIL Inhale 2 puffs into 1 Inhaler 1 201404/06/2016 HFA;VENTOLIN HFA) 90 the lungs every 4 mcg/actuation HFA Aerosol hours as needed for Inhaler Wheezing. Use with spacer omeprazole (PRILOSEC) 20 Take 1 capsule by 0 /02/201410/11/2018 mg Capsule, Delayed mouth 2 times Release(E.C.) daily. potassium chloride Take 1 tablet by 30 tablet 11 05/28/2014 08/19/2020 (K-DUR/KLOR-CON) 10 mEq mouth daily. extended release tablet atenolol (TENORMIN) 50 mg TAKE ONE-HALF 45 tablet 3 013 10/11/2018 tabletIndications: TABLET BY MOUTH Hypertension EVERY DAY albuterol (PROVENTIL Inhale 2 puffs into 1 Inhaler 1 201204/06/2016 HFA;VENTOLIN HFA) 90 the lungs every 4 mcg/actuation inhaler hours as needed for Wheezing. Use with spacer furosemide (LASIX) 20 mg Take 1 tablet [...] [facility] DR CHRISTIANO HENSON-DERMAT OLOGY [place], [place] [address] (Wo rk) 10/16/2022 Office Visit Otolaryngology Frank Buchanan MD [facility] OTOLARYNGOLOGY Sarah EPT. [place], [place] [address] (Wo rk) 11/29/2022 Appointment Hematology and Oncology 11/29/2022 Office Visit Radiation Oncology Emerald Leyva APRN [facility] RADIATION ONCCESAR [place], [place] [address] (Wo rk) documented as of this encounter Procedures Procedure Name Priority Date/Time Associated Diagnosis Comme nts XR FOOT MIN 3 VIEWS Routine 11/17/2015 3:12 PM Left foot pain Results for this LEFT EST Fracture, foot, procedure ar e in left, closed, the results initial encounter section. documented in this encounter Results XR Foot Minimum 3 Views Left (GENERIC) (11/17/2015 3:12 PM EST) Anatomical Region Laterality Modality Foot Left Digital Radiography Specimen (Source) Anatomical Location Collection Method / Collectio n Time Received Time / Laterality Volume Addenda Addendum by Dexter Rosales MD on 11:20 AM EST TECHNIQUE: Frontal, lateral, and oblique weightbearing views of the left foot. Addendum by Dexter Rosales MD on 10:46 AM EST TECHNIQUE: Frontal, lateral, and oblique weightbearing views of the left foot. Impressions 11/17/2015 3:45 PM EST IMPRESSION: Irregularities of the distal first metat arsal, could represent posttraumatic, erosive changes, or other etiology. Narrative 11/17/2015 3:45 PM EST EXAMINATION: XR FOOT MINIMUM 3 VIEWS LEFT CLINICAL HISTORY: 1st metatarsil fx TECHNIQUE: Frontal, lateral, and oblique weightbearing views of the left ankle. COMPARISON: 11/10/2015. FINDINGS: Regional osteopenia and irregularities o f the distal first metatarsal are again appreciated. This could represent healin g fracture versus other etiologies. There is mild joint space loss and osteo phytes of the first MTP joint. Calcaneal spurring is incidentally noted. Atherosc lerotic change of the small vasculature. Procedure Note Dexter Rosales MD - 11/17/2015Format ting of this note might be different from the original. EXAMINATION: XR FOOT MINIMUM 3 VIEWS LEF T CLINICAL HISTORY: 1st metatarsil fx TECHNIQUE: Frontal, lateral, and oblique weightbearing views of the left ankle. COMPARISON: 11/10/2015. FINDINGS: Regional osteopenia and irregularities o f the distal first metatarsal are again appreciated. This could represent healin g fracture versus other etiologies. There is mild joint space loss and osteo phytes of the first MTP joint. Calcaneal spurring is incidentally noted. Atherosc lerotic change of the small vasculature. IMPRESSION IMPRESSION: Irregularities of the distal first metat arsal, could represent posttraumatic, erosive changes, or other etiology. Taco Jj MD IMG DX ORDERABLES documented in this encounter Visit Diagnoses Diagnosis Left foot pain Pain in limb Fracture, foot, left, closed, initial en counter documented in this encounter Care Teams Associate Media Director Relationship Specialty Start Date End Date Giorgio Cradona MD PCP - General 10/04/10 04/10/[address] [facility] [address] GENERAL [place] [address] documented as of this encounter
--- OUTSIDE RECORDS SUMMARY | 2022-10-09 16:15 | XMS_ITS | Encounter Summary ---
:1940 Author Organization [facility] Address [facility] [place] [address] Care Team Providers Name Role Phone Giorgio Cardona MD Primary Care Provider Reason for Visit Reason Onset Date Comments Appointment 11/10/2015 Left message for pat ient to call and schedule an appt with us 7-10 days post foot FX Encounter Details Date Type Department Care Team Description 11/10/2015 Telephone Orthopaedics at [facility] Cassy Meyer, Appointment ([facility] Sarah [place]arcia [place] [address] call and schedule an [phone] appt with us 7- 10 days post foot FX) Social History Tobacco Use Types Packs/Day Years Used Date Smoking Tobacco: Never Smokeless Tobacco: Never Alcohol Use Standard Drinks/Week Comments Yes 0 (1 standard drink = 0.6 oz pure alcoho l) RARE Sex Assigned at Date Recorded Not on file documented as of this encounter Miscellaneous Notes Telephone Encounter - Babar Morrison - 11/11/2015 9:57 AM EST Left message for patient to call and schedule an appt with us 7-10 days post foot FX, XR order in [facility] Telephone Encounter - Cassy Meyer, RN - 11/10/2015 4:28 PM EST TELEPHONE NOTE Responsible Provider: Dr. Jj, operations label clerk Caller: Dr. Cardona (PCP) Reason for call: Mr. Mina sustained a L 1st metatarsal fx resulting from a direct blow (woodenplank fell on his foot). Assessment: Discuss with Dr. Jj. Plan/Instructions: Dr. Jj recommended a stiff-soled shoe or a short walker boot. Dr. Cardona electedto order a walker boot. Per Dr. Jj, we will see Mr. Mina in clinic, 7-10 days, with repeat imaging. documented in this encounter Plan of Treatment Upcoming Encounters Date Type Specialty Care Team Description 10/11/2022 Office Visit Dermatology Virgilio Mckeon MD [facility] DR CHRISTIANO HENSON-DERMAT OLOGY [place], [place] [address] (Wo rk) 10/16/2022 Office Visit Otolaryngology Frank Buchanan MD [facility] OTOLARYNGOLOGY Sarah EPT. [place], [place] [address] (Wo rk) 11/29/2022 Appointment Hematology and Oncology 11/29/2022 Office Visit Radiation Oncology Emerald Leyva APRN [facility] RADIATION ONCOLO GY [place], [place] [address] (Wo rk) documented as of this encounter Visit Diagnoses Not on filedocumented in this encounter Care Teams Cloth Boil Off Machine Operator Relationship Specialty Start Date End Date Giorgio Cardona MD PCP - General 10/04/10 04/10/17 [facility] [place] [address] documented as of this encounter
--- OUTSIDE RECORDS SUMMARY | 2022-10-09 16:15 | XMS_ITS | Encounter Summary ---
:1940 Author Organization [facility] [place] [address] Care Team Providers Name Role Phone Giorgio Cardona MD Primary Care Provider Encounter Details Date Type Department Care Team Description 04/06/2016 Laboratory Appointment Lab 3L [facility]; [facility] SOB (shortness of breath); [facility] [place]ignant [place] [address] Social History Tobacco Use Types Packs/Day Years [...] [facility] DR CHRISTIANO HENSON-DERMAT OLOGY [place], [place] [address] (Wo sriram) 10/16/2022 Office Visit Otolaryngology Frank Buchanan MD [facility] OTOLARYNGOLOGY Sarah EPT. [place], [place] [address] (Wo rk) 11/29/2022 Appointment Hematology and Oncology 11/29/2022 Office Visit Radiation Oncology Emerald Leyva APRN [facility] RADIATION ONCCESAR RACHAEL [place], [place] [address] (Wo rk) documented as of this encounter Procedures Procedure Name Priority Date/Time Associated Diagnosis Comme nts HEMOGRAM Routine 04/06/2016 12:36 PM Wheezing Results for this EDT SOB (shortness of procedure are in breath) the results section. DIFFERENTIAL, Routine 04/06/2016 12:36 PM Wheezing Results for this AUTOMATED EDT SOB (shortness of procedure are in breath) the results section. CBC (WITH DIFF) Routine 04/06/2016 12:36 PM Wheezing EDT SOB (shortness of breath) PSA Routine 04/06/2016 12:36 PM Malignant neoplasm Re sults for this (ULTRASENSITIVE) EDT of prostate procedure a re in the results section. BASIC METABOLIC Routine 04/06/2016 12:36 PM Wheezing Results for this PANEL (NON-FASTING) EDT SOB (shortness of pro cedure are in breath) the results section. documented in this encounter Results (ABNORMAL) Differential, Automated (04/06/2016 12:36 PM EDT) [facility] gist Method Time Signature Neutrophils % 78.8 % [facility] LABORATORY Neutr Abs (ANC) 2.97 1.50 - [facility] 6.30 [facility] x10(3)/[facility] LABORATORY Lymphocytes % 15.1 % [facility] Lymphocytes Abs 0.6 (L) 1.0 - 3.6 [facility] x10(3)/[facility] LABORATORY Monocytes % 5.8 % [facility] Monocyte Abs 0.2 0.2 - 1.0 [facility] x10(3)/[facility] LABORATORY Eosinophils % 0.0 % [facility] Eosinophils Abs 0.0 0.0 - 0.5 [facility] x10(3)/[facility] LABORATORY Basophils % 0.0 % [facility]OR[facility] Basophils Abs 0.0 0.0 - 0.2 [facility] x10(3)/[facility] LABORATORY Immature Gran % 0.30 % [facility] Comment: Immature granulocytes(IG's)percentage an d absolute count will include metamyelocytes, myelocytes, and promyelo cytes. Blood smears from CBCs yielding IG's will be scanned manually for concjudie danhilary. If this scan disagrees with the automated IG or if promyelocytes are not ed, a manual differential will be performed. Becki Gran Abs 0.01 0.00 - 0.05 x10(3)/[facility] LABORATORY Specimen Anatomical Collection Method Collection Time Receive d Time (Source) Location / / Volume Laterality Blood specimen 04/06/2016 12:36 6 (specimen) PM EDT 12:42 PM EDT Resulting Agency Comment Spec In Lab Gregor Masterson MD HEMATOLOGY ORDERABLES Performing Organization Address City/State/[place]IP [place] [address] (ABNORMAL) Hemogram (04/06/2016 12:36 PM EDT) P athologist Signature WBC 3.8 (L) 4.0 - 10.0 [facility] LABORATORY RBC 4.29 (L) 4.63 - [facility] x10(6)/[facility] LABORATORY Hemoglobin 14.2 13.7 - [facility] 17.[facility] gm/dL [facility] LABORATORY Hematocrit 41.1 40.0 - [facility] 51.0 % [facility] LABORATORY MCV 95.8 (H) 79.0 - [facility] 92.0 [facility] LABORATORY MCH 33.1 (H) 25.6 - [facility] 32.2 pg [facility] LABORATORY MCHC 34.5 32.0 - [facility] [place] 36.5 gm/dL [facility] LABORATORY Platelets 184 145 - 370 [facility] LABORATORY RDWSD 49.8 (H) 35.0 - [place] 46.0 [facility] RDWCV 14.3 10.9 - [facility] [place] 14.4 % [facility] LABORATORY MPV 11.1 9.0 - 12.0 [facility] LABORATORY Specimen Anatomical Collection Method Collection Time Receive d Time (Source) Location / / Volume Laterality Blood specimen 04/06/2016 12:36 6 (specimen) PM EDT 12:42 PM EDT Resulting Agency Comment Spec In Lab Gregor Masterson MD HEMATOLOGY ORDERABLES Performing Organization Address City/[facility]/ZIP Code Phon e Number [address] PSA (04/06/2016 12:36 PM EDT) athologist Signature PSA Total 0.20 0.00 - [facility] (Ultrasensitiv 4.00 ng/mL [facility] LABORATORY Specimen Anatomical Collection Method Collection Time Receive d Time (Source) Location / / Volume Laterality Blood specimen 04/06/2016 12:36 6 (specimen) PM EDT 12:42 PM EDT Resulting Agency Comment Spec In Lab Trino Allen MD CHEMISTRY ORDERABLES Performing Organization Address City/[facility]/[place] [address] (ABNORMAL) Basic Metabolic Panel (non-fasting) (04/06/2016 12:36 PM EDT) athologist Signature Glucose Lvl 154 65 - 199 [facility] mg/dL [facility] LABORATORY Comment: Diabetes: >=200 mg/dL plus symp toms BUN 23 (H) 10 - 20 mg/dL [facility] LABORATORY Creatinine 1.30 0.80 - 1.50 mg/dL [facility] LABORATORY Comment: Please note that the pediatric reference intervals supplied above were not validated at [facility]. Results from pediatri c patients should be interpreted in conjunction to the patient's age, height and muscle mass. Sodium 142 135 - 145 mmol/L [facility] LABORATORY Potassium 4.7 3.5 - 5.0 mmol/L [facility] LABORATORY Comment: Please note: ??Patients with WBC >100,00 0 may have falsely elevated Potassium levels. ??For accurate Potassium quantif ication in these patients send serum separator tube (gold top) for subsequent determinations. ??Contact the Clinical Chemistry Laboratory if there are any qu estions. Chloride 102 98 - 107 mmol/L [facility] LABOR[facility] CO2 24 22 - 31 mmol/L [facility] Anion Gap 16 (H) 5 - 15 mmol/L [facility] LABORATORY Calcium 8.1 (L) 8.5 - 10.5 mg/dL [facility] LABORATORY Estimated GFR 54 (L) >=60 [facility] LABORATORY Comment: This estimated GFR (eGFR) value was calc ulated using the MDRD equation which has been validated on patients between t he ages of 18 and 70. The MDRD should not be used to assess kidney function in patients < 18 years of age or in patients with extremes of body mass, or in patients with acute kidney failure. This value should be multiplied by 1.2 f or patients. For further information please copy and past e the following links into your internet browser. http://[employer]/DHnkdep http://[employer]/DHMCnkf Specimen Anatomical Collection Method Collection Time Receive d Time (Source) Location / / Volume Laterality Blood specimen 04/06/2016 12:36 6 (specimen) PM EDT 12:42 PM EDT Resulting Agency Comment Spec In Lab Gregor Masterson MD CHEMISTRY ORDERABLES Performing Organization Address City/State/[place] [address] documented in this encounter Visit Diagnoses Diagnosis Wheezing SOB (shortness of breath) Shortness of breath Malignant neoplasm of prostate documented in this encounter Care Teams Wood Barrel Reconditioner Relationship Specialty Start Date End Date Giorgio Cardona MD PCP - General 10/04/10 04/10/17 [facility] [place] [address] documented as of this encounter
--- OUTSIDE RECORDS SUMMARY | 2022-10-09 16:15 | XMS_ITS | Encounter Summary ---
:1940 Author Organization [facility] [place] [address] Care Team Providers Name Role Phone Giorgio Cardona MD Primary Care Provider Reason for Visit Reason Comments Follow-up Encounter Details Date Type Department Care Team Description 05/24/2015 Follow-Up Internal Medicine at [facility] Giorgio Cardona MD Anxiety [facility] D [facility] [place] [address] GENERAL INTERNAL MEDICINE [phone] [place], [place] [address] (Wo rk) Social History Tobacco Use Types Packs/Day Years Used Date Smoking Tobacco: Never Smokeless Tobacco: Never Alcohol Use Standard Drinks/Week Comments Yes 0 (1 standard drink = 0.6 oz pure alcoho l) RARE Sex Assigned at Date Recorded Not on file documented as of this encounter Last Filed Vital Signs Vital Sign Reading Time Taken Comments Blood Pressure 121/67 05/24/2015 2:23 PM EDT Pulse 55 05/24/2015 2:23 PM EDT Temperature 36.7 ??C (98.1 ??F) 05/24/2015 2:23 PM EDT Respiratory Rate 20 05/24/2015 2:23 PM EDT Oxygen Saturation 99% 05/24/2015 2:23 PM EDT Inhaled Oxygen Concentration - - Weight 70.4 kg (155 lb 3.2 oz) 05/24/2015 2:23 PM EDT Height 161.2 cm (5' 3.47) 05/24/2015 2:23 PM EDT Body Mass Index 27.09 05/24/2015 2:23 PM EDT documented in this encounter Progress Notes Giorgio Cardona MD - 05/24/2015 3:14 PM EDT Established Patient Follow-up Visit History of Presenting Illness: Patient here to followup on acute and chronic medical issues Assisted by DMS IV Has been feeling depressed almost every day but improves when goes to work - enjoys working though -makes him happy. Not quite motivated to do the 'house' things at this time. Not sleeping as well, cannot stop thinking about this at nightime. No suicidal thoughts. Drinks a lot of coffee Patient reported measures in the past 7 days Pain:1 Physical Health:Very Good Mental Health: Patient Active Problem List Diagnosis ??? Primary insomnia ??? Basal cell carcinoma ??? History of squamous cell carcinoma ??? Actinic keratosis ??? Aspiration Into Lower Respiratory Tract ??? Diverticulitis ??? Preventative health care Immunization [...] features. 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 [id number]; KRAS negative, EGFR negative --09/2010: CT scan - normal --02/2011: CT scan --09/2011: CT scan - negative annual CT's afterwards Outpatient Encounter Prescriptions as of 05/24/2015 Medication Sig Dispense Refill ??? albuterol (PROVENTIL [...] facility-administered encounter medications on file as of 05/24/2015. History Social History ??? Marital Status: Single Spouse Name: N/A Number of Children: N/A ??? Years of Education: N/A Social History Main Topics ??? Smoking status: Never Smoker ??? Smokeless tobacco: Never Used ??? Alcohol Use: Yes Comment: RARE ??? Drug Use: No ??? Sexual Activity: None Other Topics Concern ??? None Social [...] pain at rest or with movement Objective Filed Vitals: 05/24/15 1423 BP: 121/67 Pulse: 55 Temp: 36.7 ??C (98.1 ??F) Resp: 20 Height: 161.2 cm (5' 3.47) Weight: 70.398 kg (155 lb 3.2 oz) SpO2: 99% Gen -no acute distress. Alert, responsive and comfortable HEENT - oropharynx moist without lesions Neck - Full range of motion, no bruits, no lymphadenopathy or thyromegaly. No increase in JVD. Lungs - No wheezes, no crackles. Chest/Back [...] length, speed, and arm swing Assessment/Plan: 1. Post-nasal drip/allergic rhinitis Did not address today 2. Hyperthyroidism s/p radioactive iodine 3. Goiter causing ? anatomical obstruction --continue to monitor biochemical parameters 4. DJD Knee -- Very pleased with results. 5. S/p Mitral Regurgitation --suggest repeating in 2015. 6. Depression/Insomnia --see below 7. Lung Cancer --recent CT scan 07/2014 satisfactory. Needs repeat later this fall. 8. Pancreatic Lesion --last MRI was in March 2013 - recommendation was stability and hence no need for further f/u. 9. GERD Controlled with dietary modification 10. Prostate Cancer Last saw Rad onc and stable. 11. Hypertension Hypertension Plan of Care [X] Stable and controlled: continue current medications as prescribed [ ] Uncontrolled: change medication as follows: [ ] Life style modifications discussed: weight loss, low salt diet, exercise and moderation of alcohol intake [ ] Return for assessment in This plan of care was made in collaboration with the patient/family 13. Dyslipidemia stable 14. Preventative Give pcv 13. 15. Insomnia --eliminate 3rd cup of coffee --stress management at this time. ---conservative sleep management at this time - --lack of sleep likely impacting mood/energy at this time. --if no improvement, consider melatonin. If no improvement then SSRi I counselled the patient on the above [...] Appointment: Return in about 6 months (around 11/24/2015) for epe 6 months; 1 months Emanuel 30min anxiety/insomnia. Total time: 25 Minutes, 15 Of the visit time was spent in [id number] counselling of the above issues Sara Moralez - 05/24/2015 2:32 PM EDT Alfredito Mina is 74 y.o. male presenting for a 6 month follow up. HPI: MOOD: can't sleep at night thinking about all the things he needs to do. it feels like things arepiling up. Takes too long to fall asleep. Has felt down/depressed over the last couple weeks. Not sure what causes it, but think it's because he's lonely. Feels motivated to work. No suicidal thoughts. He has children that he would never think of doing that to. SLEEP:Is working everyday and this helps his mood. Works from about to 8 am to at the earlier 5:30 to sometimes to 9:30. Usually goes to bed at 11 pm, wakes up at 4 am. Does not eat dinner until 9:30 to 10 pm. Takes him about an hour or two to fall asleep. Lies in bed during that time. Does not use screens in room, only watches TV oassional. Does not get up or do anything other than lie in bed until he falls asleep. Drinks coffee. Usually two cups in the morning, and has a cup in the afternoon that gets him home. He has come close to falling asleep while driving. Does not drink alcohol. Does not drink sodas or energy drinks. Drinks tea occasional. No trouble staying asleep. Dizziness: lightheadedness upon standing, not with exertion or at rest, last fell last year Shoulder: R side, no pain, notices weakness with abduction, but can abduct completely, no stiffness,no numbess/tingling down the arm Sometimes breaths fast if walking up hill, stops to slow down, the continues 6 lb loss, not eating as much, not eating fat foods like he used No CP, no changes in BM, no changes in urination Current Outpatient Prescriptions on File Prior to Visit Medication Sig Dispense Refill ??? albuterol (PROVENTIL [...] medications on file prior to visit. BP 121/67 Pulse 55 Temp(Src) 36.7 ??C (98.1 ??F) Resp 20 Ht 161.2 cm (5' 3.47) Wt 70.398 kg (155 lb 3.2 oz) BMI 27.09 kg/m2 SpO2 99% Gen: NAD, aox3 Heart: rrr, nl s1 and s2, no gallops rubs or murmurs Lungs: CTAB Ext: normal ROM x4, 5/5 strength x4 A&P: Alfredito Mina is a 74 y.o. presenting for a 6 month f/u. He identified his main two concerns as mood/anxiety and sleep. We discussed each. Insomnia: likely 2/2 caffeine and sleep habits. We discussed replacing his 3rd cup of coffee with a decaffeinated cup and not having nay caffeinated beverages after 12 o'clock. We also discussed that it is ideal to associate the bed only with sleep, so lying in bed for extended periods is not helpful.The plan is to do something mindless (such as washing dishes, light reading cleaning) if he can't fall asleep for 15-30 mins after lying doing. He is agreeable to both of these. We will f/u in 4 weeks and if he has instituted these changes and has not noticed a difference we will proceed with 3-5 mg melatonin nightly. Mood/anxiety: we discussed how lack of sleep is likely tightly associated with mood and anxiety, andso we want to see if getting more sleep will help his mood. I have no concerns for his safety at this time. Lightheadedness: likely orthostasis, we discussed taking his time when standing up documented in this encounter Plan of Treatment Upcoming Encounters Date Type Specialty Care Team Description 10/11/2022 Office Visit Dermatology Virgilio Mckeon MD [facility] DR CHRISTIANO HENSON-DERMAT OLOGY [place], [place] [address] (Wo sriram) 10/16/2022 Office Visit Otolaryngology Frank Buchanan MD [facility] OTOLARYNGOLOGY Sarah EPT. [place], [place] [address] (Wo sriram) 11/29/2022 Appointment Hematology and Oncology 11/29/2022 Office Visit Radiation Oncology Emerald Leyva APRN [facility] DR RADIATION ONCOLO GY [place], [place] [address] (Wo rk) documented as of this encounter Visit Diagnoses Diagnosis Anxiety Anxiety state, unspecified documented in this encounter Care Teams Advertising Executive Relationship Specialty Start Date End Date Giorgio Cardona MD PCP - General 10/04/10 04/10/17 [facility] GENERAL [place] [address] documented as of this encounter
--- OUTSIDE RECORDS SUMMARY | 2022-10-09 16:15 | XMS_ITS | Encounter Summary ---
:1940 Author Organization [facility] [place] [address] Care Team Providers Name Role Phone Giorgio Cardona MD Primary Care Provider Encounter Details Date Type Department Care Team Description 03/22/2017 Hospital Encounter XRay at [facility] Giorgio Cardona, Cough, persistent [address] [place] [id number] [place] [phone] GENERAL INTERNAL MEDICINE [place], [place] [address] Social History Tobacco Use Types Packs/Day Years [...] (MIRALAX) 17 gram Powder daily. in Packet predniSONE (DELTASONE) 10 Take 1 tablet by 48 tablet 0 03/1204/26/2017 mg Tablet mouth daily. Take 4 tablets x 3 days; 3 tablets x 3 days; 2 tablets x 3 days; 1 tablets x 3 days, then stop azithromycin (ZITHROMAX) Day 1: Take 2 6 tablet 0 12/15/19 17 04/26/2017 250 mg Tablet tablets daily, Day 2 - 5: Take one tablet daily benzonatate (TESSALON) 100 Take 1 capsule by 30 tablet 0 04/26/2017 mg Capsule mouth 3 times daily as needed for Cough. omeprazole (PRILOSEC) 20 Take 1 capsule by [...] [facility] DR CHRISTIANO HENSON-DERMAT OLOGY [place], [place] [address] ( sriram) 10/16/2022 Office Visit Otolaryngology Frank Buchanan MD [facility] OTOLARYNGOLOGY D EPT. [place], [place] [address] (Leroy bhatia) 11/29/2022 Appointment Hematology and Oncology 11/29/2022 Office Visit Radiation Oncology Emerald Leyva APRN [facility] RADIATION ONCOLO GY [place], [place] [address] (Leroy bhatia) documented as of this encounter Procedures Procedure Name Priority Date/Time Associated Diagnosis Comme nts XR CHEST PA AND Routine 03/22/2017 9:40 AM Cough, persistent R esults for this LATERAL EDT procedure are i n the results [...] encounter Visit Diagnoses Diagnosis Cough, persistent Cough documented in this encounter Care Teams Cooker Soda Relationship Specialty Start Date End Date Giorgio Cardona MD PCP - General 10/04/10 04/10/[address] [facility] [address] [place] [address] documented as of this encounter
--- OUTSIDE RECORDS SUMMARY | 2022-10-09 16:15 | XMS_ITS | Encounter Summary ---
:1940 Author Organization [facility] [place] [address] Care Team Providers Name Role Phone Giorgio Cardona MD Primary Care Provider Encounter Details Date Type Department Care Team Description 10/10/2016 Telephone Dermatology at [facility] Rigoberto Posada III, [address] [place] [address] [facility] [phone] CHRISTIANO MARRUFO-DERMAT [place], [place] [address] (Wo rk) Social History Tobacco Use Types Packs/Day Years Used Date Smoking Tobacco: Never Smokeless Tobacco: Never Alcohol Use Standard Drinks/Week Comments Yes 0 (1 standard drink = 0.6 oz pure alcoho l) RARE Sex Assigned at Date Recorded Not on file documented as of this encounter Miscellaneous Notes Telephone Encounter - Mendy Faye LPN - 10/10/2016 4:29 PM EST ----- Message from Rigoberto Jackson III, MD sent at 10/04/2016 8:56 AM EST ----- Please check on the lesions we treated, especially the irritated SK in the groin Thanks. See as planned if needed, sooner if problems arise. I called and left a message for him to call if the spots treated have not resolved. documented in this encounter Plan of Treatment Upcoming Encounters Date Type Specialty Care Team Description 10/11/2022 Office Visit Dermatology Virgilio Mckeon MD [facility] DR CHRISTIANO MARRUFO-DERMAT OLOGY [place], [place] [address] (Wo rk) 10/16/2022 Office Visit Otolaryngology Frank Buchanan MD [facility] OTOLARYNGOLOGY Sarah EPT. [place], [place] [address] (Wo rk) 11/29/2022 Appointment Hematology and Oncology 11/29/2022 Office Visit Radiation Oncology Emerald Leyva APRN [facility] RADIATION ONCOLO GY [place], [place] [address] (Wo rk) documented as of this encounter Visit Diagnoses Not on filedocumented in this encounter Care Teams Rubber Goods Inspector Relationship Specialty Start Date End Date Giorgio Cardona MD PCP - General 10/04/10 04/10/17 [facility] GENERAL [place] [address] documented as of this encounter
--- OUTSIDE RECORDS SUMMARY | 2022-10-09 16:15 | XMS_ITS | Encounter Summary ---
:1940 Author Organization [facility] [address] Care Team Providers Name Role Phone Giorgio Cardona MD Primary Care Provider Reason for Referral Diagnostic Test (Routine) - Closed Specialty Diagnoses / Procedures Referred By Contact Refer red To Contact Cardiology Diagnoses S/P mitral valve repair Giorgio Cardona MD [facility] Non-Inv Card Lab Procedures Echocardiogram Transthoracic(Leb) [place], [place] [phone] [facility] [place] [address] Referral ID Status Reason Start Date Expiration Date Visits V isits Requested Authorized [id number] Closed Specialty 03/08/2016 03/08/2017 1 1 Service Requested Reason for Visit Diagnostic Test (Routine) - Closed Specialty Diagnoses / Procedures Referred By Contact Refer red To Contact Cardiology Diagnoses S/P mitral valve repair Giorgio Cardona MD [facility] Non-Inv Card Lab Procedures Echocardiogram Transthoracic(Leb) [facility] [place], [place] [phone] [place] [address] Referral ID Status Reason Start Date Expiration Date Visits V isits Requested Authorized [id number] Closed Specialty 03/08/2016 03/08/2017 1 1 Service Requested Encounter Details Date Type Department Care Team Description 03/08/2016 Hospital Encounter Non-Invasive Giorgio Cardona S/P diana tral valve Cardiology Lab Sharita ortega [facility] [address] MEDICINE [place], [place] [phone] Social History Tobacco Use Types Packs/Day Years [...] [facility] DR CHRISTIANO HENSON-DERMAT OLOGY [place], [place] [address] (Wo rk) 10/16/2022 Office Visit Otolaryngology Frank Buchanan MD [facility] OTOLARYNGOLOGY Sarah EPT. [place], [place] [address] (Wo rk) 11/29/2022 Appointment Hematology and Oncology 11/29/2022 Office Visit Radiation Oncology Emearld Leyva APRN [facility] RADIATION ONCOLO GY [place], [place] [address] (Wo rk) documented as of this encounter Procedures Procedure Name Priority Date/Time Associated Comments Diagnosis ECHOCARDIOGRAM COMPLETE Routine 03/08/2016 11:21 S/P mitral va lve Results for this AM EDT repair procedure are i n the results section. documented in this encounter Results ECHOCARDIOGRAM COMPLETE (03/08/2016 11:21 AM EDT) P athologist Signature EF 63 HEARTLAB SYSTEM Anatomical Region Laterality Modality Other Specimen (Source) Anatomical Location Collection Method / Collectio n Time Received Time / Laterality Volume 03/08/2016 Narrative 03/08/2016 12:39 PM EDT Procedure: ?Transthoracic Echocardiogram Patient: ?RACQUEL Rodriguez ?? (Age): 1940(75y) Med Rec#: ? [id number] ?Sex: ?M ? [place] ? [facility] [place]Ht / Wt: ??170(cm)/68(kg) Pt. Loc: ?Echo Lab ?BSA: ?1.79 Study Date: ?? 03/08/2016 ?Pt. Type: Outpatient Tape: ? Referring: Giorgio Cardona Reading: Isaac Pina ([id number]) Washer Carcass: Eliel Pederson Diagnosis: *ICD-10-PCS Other specified postprocedu ral states (Z98.89) CPT Codes: *Echo Full (24029) *Spectral Doppler (67463) *Color Doppler (95612) Rhythm: ? Bradycardia BP: ? 119/68 SUMMARY: 1. The left ventricular chamber size is normal. There is mild septal hypertrophy of the left ventricle. ??The re are no left ventricular segmental wall motion abnormalities. The re is normal global left ventricular systolic function. The quant itative left ventricular ejection fraction by biplane Madison's m ethod is 63%. Left sided filling pressure could not be assessed by Dopple r. 2. Right ventricular chamber size, wall thickness, and systolic function are within normal limits. 3. The mitral valve repair appears struc turally intact. The mean gradient across the mitral valve is 3 mm Hg at a heart rate of 49 bpm. There is trace to mild regurgitation. 4. The study is unchanged by direct comp arison to the prior echo from 2013. 5. See remainder of report for additiona l findings. Findings ? : Study Quality: ? Adequate Left Ventricle: ? The left ventricul ar chamber size is normal. ?There is mild septal hypertrophy o f the left ventricle. ?There is normal global left ventri cular systolic function. ?The quantitative left ventricular ejection fraction by biplane Madison's method is 63%. ?There are no left ventricular segm ental wall motion abnormalities. ?Left sided filling pressure could not be assessed by Doppler. Left Atrium: ? The left atrium is no rmal in size.34 ml/m2 Right Ventricle: ? Right ventricular chamber size, wall thickness, and systolic function are within normal limi ts. Right Atrium: ? The right atrium nelson ears normal. Aortic Valve: ? The aortic valve is tricuspid. ?The aortic valve leaflets are mild ly thickened. ?There is no evidence of aortic aden ve stenosis. ?There is a trace of aortic regurgi tation present. Mitral Valve: ? The mean gradient ac ross the mitral valve is 3 mmHg. Heart rate 49 bpm. ?There is trace mitral regurgitatio n present. 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 Tricuspid Valve: ? The tricuspid aden ve appears normal in structure and function. ?There is mild (1+/4+) tricuspid re gurgitation present. Pulmonic Valve: ? The pulmonic valve appears normal in structure and function. ?There is mild (1+/4+) pulmonic reg urgitation [...] ?Value ?Units (Range) ? IVSd (2D) ? 1.3 ?cm ? LVPWd (2D) ?1 ?cm ? IVS:LVPW ratio (2D) 1.3 ?ratio ? LVIDd (2D) ?4.8 ?cm ? LVIDs (2D) ?3.1 ?cm ? LVIDd (2D) index ?2.7 ?cm/m2 ? LVIDs (2D) index ?1.7 ?cm/m2 ? LV FS (2D) ?36 ? % ? EF Teichholz (2D) ?? 65 ? % ? Ao root diameter (2D2.8 ?cm (2.1 - 3.6) ? Ascending Ao ?3.1 ?cm (2 - 3.5) ? Volumes/Mass ?Value ?Units (Range) ? LA Area 2 CH ?21 ? cm2 ? LA Area 4 CH ?19 ? cm2 (<21) ? LA ESV BP (A/L) inde33.8 ? ml/m2 ? RA AREA 4CH ? 16 ? cm2 ? LA ESV SP 4CH (MOD) 50.8 ? ml ? LA ESV SP 2CH (MOD) 64 ? ml ? LV ESV SP 4CH (MOD) 29.7 ? ml ? LV ESV SP 2CH (MOD) 32.4 ? ml ? LV EDV BP ? 86.9 ? ml ? LV ESV BP ? 31.9 ? ml ? BP EF (MOD) ? 63 ? % ? LV mass (2D) ?201 ?g ? LV mass (2D) index ??112.3 ?g/m2 ? Diastolic/Systolic Function ?Value ?Units (Range) ? MV E-wave Vmax ?1.4 ?m/sec ? MV deceleration dutx744.3 ? msec ? MV A-wave Vmax ?1.2 ?m/sec ? MV E:A ratio ?1.2 ?ratio ? Mitral Valve ?Value ?Units (Range) ? MV Vmax ? 1.4 ?m/sec ? MV VTI ?58.8 ? cm ? MV peak gradient ?8 ?mmHg ? MV mean gradient ?3 ?mmHg ? Tricuspid Valve ?Value ?Units (Range) ? TR Vmax ? 2.7 ?m/sec ? TR peak gradient ?29.8 ? mmHg ? RAP ? 3 ?mmHg ? RVSP ?33 ? mmHg ? Measurement Trending Name ? 03/08/2016 ? LV EDV BP ?8 6.87 LVIDd (2D) ? 4. 84 LV ESV BP ?3 1.92 LVIDs (2D) ? 3. 11 Wall Motion: Segment Name ?Rest ? Base-Anteroseptal ?? Normal ? Base-Anterior ? Normal ? Base-Anterolateral ??Normal ? Base-Posterolateral Normal ? Base-Inferior ? Normal ? Base-Inferoseptal ?? Normal ? Mid-Anteroseptal ?Normal ? Mid-Anterior ?Normal ? Mid-Anterolateral ?? Normal ? Mid-Posterolateral ??Normal ? Mid-Inferior ?Normal ? Mid-Inferoseptal ?Normal ? [place]-Septal ? Normal ? [place]-Anterior ? Normal ? [place]-Lateral ?Normal ? [place]-Inferior ? Normal ? [place]-Tip ?Normal ? This report has been electronically sign ed by: _ Isaac Pina MD ? 03/08/2016 12 :39:30 Images reviewed and interpretation [facility] Cardiac Ultrasound Laboratory Procedure Note Isaac Pina MD - 03/08/2016Formatt ing of this note might be different from the original. Procedure: Transthoracic Echocardiogram Patient: RACQUEL Rodriguez (Age): 1940(75y) Med Rec#: [id number] Sex: M [place] [facility] [place]t / Wt: 170(cm)/68(kg) Pt. Loc: Echo Lab BSA: 1.79 Study Date: 03/08/2016 Pt. Type: Outpati ent Tape: Referring: Giorgio Cardona Reading: Isaac Pina ([id number]) Washer Carcass: Eliel Pederson Diagnosis: *ICD-10-PCS Other specified postprocedu ral states (Z98.89) CPT Codes: *Echo Full (81996) *Spectral Doppler (49707) *Color Doppler (42256) Rhythm: Bradycardia BP: 119/68 SUMMARY: 1. The left ventricular chamber size is normal. There is mild septal hypertrophy of the left ventricle. There are no left ventricular segmental wall motion abnormalities. The re is normal global left ventricular systolic function. The quant itative left ventricular ejection fraction by biplane Madison's m ethod is 63%. Left sided filling pressure could not be assessed by Dopple r. 2. Right ventricular chamber size, wall thickness, and systolic function are within normal limits. 3. The mitral valve repair appears struc turally intact. The mean gradient across the mitral valve is 3 mm Hg at a heart rate of 49 bpm. There is trace to mild regurgitation. 4. The study is unchanged by direct comp arison to the prior echo from 2013. 5. See remainder of report for additiona l findings. Findings : Study Quality: Adequate Left Ventricle: The left ventricular bryan mber size is normal. There is mild septal hypertrophy of the left ventricle. There is normal global left ventricular systolic function. The quantitative left ventricular eject ion fraction by biplane Madison's method is 63%. There are no left ventricular segmental wall motion abnormalities. Left sided filling pressure could not b e assessed by Doppler. Left Atrium: The left atrium is normal i n size.34 ml/m2 Right Ventricle: Right ventricular chamb er size, wall thickness, and systolic function are within normal limi ts. Right Atrium: The right atrium appears n ormal. Aortic Valve: The aortic valve is tricus pid. The aortic valve leaflets are mildly th ickened. There is no evidence of aortic valve st enosis. There is a trace of aortic regurgitatio n present. Mitral Valve: The mean gradient across t he mitral valve is 3 mmHg. Heart rate 49 bpm. There is trace mitral regurgitation pre sent. 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 Tricuspid Valve: The tricuspid valve nelson ears normal in structure and function. There is mild (1+/4+) tricuspid regurgi tation present. Pulmonic Valve: The pulmonic valve appea rs normal in structure and function. There is mild (1+/4+) pulmonic regurgit ation [...] Chambers 2D Value Units (Range) IVSd (2D) 1.3 cm LVPWd (2D) 1 cm IVS:LVPW ratio (2D) 1.3 ratio LVIDd (2D) 4.8 cm LVIDs (2D) 3.1 cm LVIDd (2D) index 2.7 cm/m2 LVIDs (2D) index 1.7 cm/m2 LV FS (2D) 36 % EF Teichholz (2D) 65 % Ao root diameter (2D2.8 cm (2.1 - 3.6) Ascending Ao 3.1 cm (2 - 3.5) Volumes/Mass Value Units (Range) LA Area 2 CH 21 cm2 LA Area 4 CH 19 cm2 (<21) LA ESV BP (A/L) inde33.8 ml/m2 RA AREA 4CH 16 cm2 LA ESV SP 4CH (MOD) 50.8 ml LA ESV SP 2CH (MOD) 64 ml LV ESV SP 4CH (MOD) 29.7 ml LV ESV SP 2CH (MOD) 32.4 ml LV EDV BP 86.9 ml LV ESV BP 31.9 ml BP EF (MOD) 63 % LV mass (2D) 201 g LV mass (2D) index 112.3 g/m2 Diastolic/Systolic Function Value Units (Range) MV E-wave Vmax 1.4 m/sec MV deceleration zjha535.3 msec MV A-wave Vmax 1.2 m/sec MV E:A ratio 1.2 ratio Mitral Valve Value Units (Range) MV Vmax 1.4 m/sec MV VTI 58.8 cm MV peak gradient 8 mmHg MV mean gradient 3 mmHg Tricuspid Valve Value Units (Range) TR Vmax 2.7 m/sec TR peak gradient 29.8 mmHg RAP 3 mmHg RVSP 33 mmHg Measurement Trending Name 03/08/2016 LV EDV BP 86.87 LVIDd (2D) 4.84 LV ESV BP 31.92 LVIDs (2D) 3.11 Wall Motion: Segment Name Rest Base-Anteroseptal Normal Base-Anterior Normal Base-Anterolateral Normal Base-Posterolateral Normal Base-Inferior Normal Base-Inferoseptal Normal Mid-Anteroseptal Normal Mid-Anterior Normal Mid-Anterolateral Normal Mid-Posterolateral Normal Mid-Inferior Normal Mid-Inferoseptal Normal [place]-Septal Normal [place]-Anterior Normal [place]-Lateral Normal [place]-Inferior Normal [place]-Tip Normal This report has been electronically sign ed by: _ Isaac Pina MD 03/08/2016 12:39:30 Images reviewed and interpretation verif ied [facility] Cardiac Ultrasound Laboratory Giorgio Cardona MD ECHO ORDERABLES documented in this encounter Visit Diagnoses Diagnosis S/P mitral valve repair Other postprocedural status documented in this encounter Care Teams Custodial Supervisor Relationship Specialty Start Date End Date Giorgio Cardona MD PCP - General 10/04/10 04/10/17 [facility] [address] [place] [address] documented as of this encounter
--- OUTSIDE RECORDS SUMMARY | 2022-10-09 16:15 | XMS_ITS | Encounter Summary ---
:1940 Author Organization [facility] [place] [address] Care Team Providers Name Role Phone Giorgio Cardona MD Primary Care Provider Reason for Visit Reason Comments Cough Wheezing Encounter Details Date Type Department Care Team Description 04/06/2016 [facility], CALL CENTER RECRUITER SOB (shortness of breath) [facility] [place] [phone] [place] [address] [phone] Social History Tobacco Use Types Packs/Day Years Used Date Smoking Tobacco: Never Smokeless Tobacco: Never Alcohol Use Standard Drinks/Week Comments Yes 0 (1 standard drink = 0.6 oz pure alcoho l) RARE Sex Assigned at Date Recorded Not on file documented as of this encounter Last Filed Vital Signs Vital Sign Reading Time Taken Comments Blood Pressure 134/82 04/06/2016 12:53 PM EDT Pulse 71 04/06/2016 1:02 PM EDT Temperature 36.7 ??C (98 ??F) 04/06/2016 12:53 PM EDT Respiratory Rate 18 04/06/2016 12:53 PM EDT Oxygen Saturation 95% 04/06/2016 1:02 ambulatory wit hout PM EDT oxygen Inhaled Oxygen - - Concentration Weight 68.2 kg (150 lb 6.4 04/06/2016 12:53 oz) PM EDT Height 163.2 cm (5' 4.25) 04/06/2016 12:53 PM EDT Body Mass Index 25.61 04/06/2016 12:53 PM EDT documented in this encounter Progress Notes Amita Koch, CALL CENTER RECRUITER - 04/06/2016 1:08 PM EDT ACUTE ESTABLISHED PATIENT VISIT Alfredito Mina is a 75 y.o. male seen today for Chief Complaint Patient presents with ??? Cough ??? Wheezing HPI Was put on prednisone and azithromycin on Sunday. Does have post nasal drip. Does not do anything for PND. Reports still feeling achy. Will cough when eating. Does not have any current inhaler prescription. Patient Active Problem List Diagnosis Code ??? Constipation K59.00 ??? Dyslipidemia E78.5 ??? GERD (gastroesophageal reflux disease) K21.9 ??? Hypertension I10 ??? Impaired fasting glucose R73.01 ??? Lung cancer C34.90 ??? S/P mitral valve repair Z98.89 ??? Multinodular goiter E04.2 ??? Osteoarthritis M19.90 [...] cell carcinoma C44.91 ??? Primary insomnia F51.01 Allergies Allergen Reactions ??? Cyclobenzaprine Urinary retention, xerostomia ??? Lactose Other (See Comments) Sneezing ROS Constitutional - No fevers, no chills, no weight loss or gain, + fatigue Neuro - No dizziness, no change in vision, no balance issues HEENT - No difficulty swallowing, no difficulty hearing, no nasal congestion, + postnasal drip Cardiovascular - No CP, no palpitations, no angina Respiratory - No SOB, no NIEVES, + wheeze, no cough, no sputum production Gastrointestinal - No abdominal pain, no nausea, no GERD, no constipation, no diarrhea, no blood in stool - No difficulty urinating, no dysuria, no urinary frequency, no incontinence, no nocturia Musculoskeletal - No weakness, no pain at rest or with movement . BP 134/82 (BP Location (NBP): Right arm, Patient Position: Sitting, BP Cuff Sizes: Adult (25-34 cm))Pulse 71 Temp 36.7 ??C (98 ??F) (Oral) Resp 18 Ht 163.2 cm (5' 4.25) Wt 68.2 kg (150 lb 6.4 oz) SpO2 95% Comment: ambulatory without oxygen BMI 25.61 kg/m2 Physical Exam General - No acute distress, conversing without difficulty. Neuro - Gait w/ normal stride, speed and arm swing. . ENT - TM clear with normal light reflex, no nasal mucosal edema, oropharynx clear. Eyes - PERRL. Neck - No lymphadenopathy, supple, no masses. No bruits. Heart - RRR, S1,S2, no murmur, gallop or rub. Lungs - wheezing BUL Extremities - No clubbing, cyanosis or edema. Pulses intact. Skin- dry and intact Assessment/Plan Alfredito was seen today for cough and wheezing. Mr. Mina states he is feeling somewhat improvedbut still has the cough. Some mild wheezing in clinic improved with duoneb. Ordered patient inhaler as his previous inhaler has . Reviewed that if symptoms worsen to notify team and likely will need antibiotics. Diagnoses and all orders for this visit: Wheezing Orders: - XR Chest PA & Lateral (Generic); Future; Expected date: 04/06/16 - CBC (with Diff); Future; Expected date: 04/06/16 - Basic Metabolic Panel (non-fasting); Future; Expected date: 04/06/16 - ipratropium-albuterol (DUONEB) 0.5 mg-3 mg(2.5 mg base)/3 mL nebulizer solution 3 mL; Take 3 mLs by nebulization once. - albuterol (PROVENTIL HFA;VENTOLIN HFA;PROAIR) 90 mcg/actuation HFA Aerosol Inhaler; Inhale 2 puffsinto the lungs every 4 hours as needed for Wheezing. Use with spacer SOB (shortness of breath) Orders: - XR Chest PA & Lateral (Generic); Future; Expected date: 04/06/16 - CBC (with Diff); Future; Expected date: 04/06/16 - Basic Metabolic Panel (non-fasting); Future; Expected date: 04/06/16 Other orders - inhalational spacing device (AEROCHAMBER MV) Spacer; 1 Device by [facility].(Non- Drug; Combo Route) route every 4 hours as needed. documented in this encounter Plan of Treatment Upcoming Encounters Date Type Specialty Care Team Description 10/11/2022 Office Visit Dermatology Virgilio Mckeon MD [facility] DR CHRISTIANO HENSON-DERMAT OLOGY [place], [place] [address] (Wo rk) 10/16/2022 Office Visit Otolaryngology Frank Buchanan MD [facility] OTOLARYNGOLOGY Sarah EPT. [place], [place] [address] (Wo rk) 11/29/2022 Appointment Hematology and Oncology 11/29/2022 Office Visit Radiation Oncology Emerald Leyva APRN [facility] RADIATION ONCOLO GY [place], [place] [address] (Wo rk) documented as of this encounter Results (ABNORMAL) Basic Metabolic Panel (non-fasting) (04/06/2016 12:36 PM EDT) athologist Signature Glucose Lvl 154 65 - [address] [facility] mg/dL [facility] Comment: Diabetes: >=200 mg/dL plus symp toms BUN 23 (H) 10 - 20 mg/dL [facility] Creatinine 1.30 0.80 - 1.50 mg/dL [facility] Comment: Please note that the pediatric reference intervals supplied above were not validated at [facility]. Results from pediatri c patients should be interpreted in conjunction to the patient's age, height and muscle mass. Sodium 142 135 - 145 mmol/L [facility] Potassium 4.7 3.5 - 5.0 mmol/L [facility] Comment: Please note: ??Patients with WBC >100,00 0 may have falsely elevated Potassium levels. ??For accurate Potassium quantif ication in these patients send serum separator tube (gold top) for subsequent determinations. ??Contact the Clinical Chemistry Laboratory if there are any qu estions. Chloride 102 98 - 107 mmol/L [facility] CO2 24 22 - 31 mmol/L [facility] Anion Gap 16 (H) 5 - 15 mmol/L [facility] Calcium 8.1 (L) 8.5 - 10.5 mg/dL [facility] Estimated GFR 54 (L) >=60 [facility] Comment: This estimated GFR (eGFR) value [...] the following links into your internet browser. [email or web address] Specimen Anatomical Collection Method Collection Time Receive d Time (Source) Location / / Volume Laterality Blood specimen 04/06/2016 12:36 6 (specimen) PM EDT 12:42 PM EDT Resulting Agency Comment Spec In Lab Gregor Masterson MD CHEMISTRY ORDERABLES Performing Organization Address City/State/[place] [address] XR Chest PA & Lateral (Generic) (04/06/2016 12:24 PM EDT) Anatomical Region Laterality Modality Chest N/A Digital Radiography Specimen (Source) Anatomical Location Collection Method / Collectio n Time Received Time / Laterality Volume Impressions 04/06/2016 1:17 PM EDT No acute cardiopulmonary pathology identified. No appreciable change from 11/26/2014. Narrative 04/06/2016 1:17 PM EDT EXAMINATION: XR CHEST ROUTINE PA AND LATERAL CLINICAL HISTORY: wheezing TECHNIQUE: PA and lateral views of the c hest. ? COMPARISON: 11/26/2014. FINDINGS: Unchanged chronic blunting of the costophrenic angles, consistent with mild pleural thickening/scarring. No ple ural effusion or pneumothorax is seen. No new pulmonary opacities are identifie d. Unchanged cardiac silhouette, with mitral prosthesis and intact sternotomy wires. No significant interval osseous findings are seen. Procedure Note Eliz Valderrama MD - 04/06/2016Formatt ing of this note might be different from the original. EXAMINATION: XR CHEST ROUTINE PA AND LAT ERAL CLINICAL HISTORY: wheezing TECHNIQUE: PA and lateral views of the c hest. COMPARISON: 11/26/2014. FINDINGS: Unchanged chronic blunting of the costophrenic angles, consistent with mild pleural thickening/scarring. No ple ural effusion or pneumothorax is seen. No new pulmonary opacities are identifie d. Unchanged cardiac silhouette, with mitral prosthesis and intact sternotomy wires. No significant interval osseous findings are seen. IMPRESSION No acute cardiopulmonary pathology ident ified. No appreciable change from 11/26/2014. Gregor Masterson MD IMG DX ORDERABLES documented in this encounter Visit Diagnoses Diagnosis Wheezing SOB (shortness of breath) Shortness of breath Wheezing SOB (shortness of breath) Shortness of breath documented in this encounter Administered Medications Inactive Administered Medications - up to 3 most recent administrations Medication Order MAR Action Action Date Dose Rate Site ipratropium-albuterol (DUONEB) 0.5 Given 04/06/2016 1:21 PM EDT 3 mLs mg-3 mg(2.5 mg base)/3 mL nebulizer solution 3 mL 3 mL, Nebulization, ONCE, 1 dose, On Alisha 04/06/16 at 1345, Routine documented in this encounter Care Teams Manager Gaming Relationship Specialty Start Date End Date Giorgio Cardona MD PCP - General 10/04/10 04/10/17 [facility] GENERAL INTERNAL MEDICINE [place] [id number] documented as of this encounter
--- OUTSIDE RECORDS SUMMARY | 2022-10-09 16:15 | XMS_ITS | Encounter Summary ---
:1940 Author Organization [facility] [place] [address] Care Team Providers Name Role Phone Giorgio Cardona MD Primary Care Provider Reason for Referral Diagnostic Test (Routine) - Closed Specialty Diagnoses / Procedures Referred By Contact Refer red To Contact Radiology Diagnoses Malignant neoplasm of lung, unspecified laterality, unspecified part of lung Giorgio Cardona MD Radiology Procedures CT Chest Wo Contrast (GENERIC) [facility] GENERAL INTERNAL [place], [place] [phone] [place] [address] Referral ID Status Reason Start Date Expiration Date Visits V isits Requested Authorized [id number] Closed Specialty 09/08/2015 09/07/2016 1 1 Service Requested Reason for Visit Reason Comments Follow-up Encounter Details Date Type Department Care Team Description 09/08/2015 Office Visit Internal Medicine at Deandre Cardona MD Anxiety; [facility] S/P thyroidectomy; [facility] Vocal cord paralysis; [facility] INTERNAL Malignant neoplasm of lung, unspecified laterality, unspecified part of lung; [place], [place] MEDICINE Essential hypertension; [id number] [place] [address] Prostate cancer [phone] (Wo rk) Social History Tobacco Use Types Packs/Day Years Used Date Smoking Tobacco: Never Smokeless Tobacco: Never Alcohol Use Standard Drinks/Week Comments Yes 0 (1 standard drink = 0.6 oz pure alcoho l) RARE Sex Assigned at Date Recorded Not on file documented as of this encounter Last Filed Vital Signs Vital Sign Reading Time Taken Comments Blood Pressure 119/73 09/08/2015 3:14 PM EDT Pulse 61 09/08/2015 3:14 PM EDT Temperature 36.8 ??C (98.3 ??F) 09/08/2015 3:14 PM EDT Respiratory Rate 16 09/08/2015 3:14 PM EDT Oxygen Saturation 98% 09/08/2015 3:14 PM EDT Inhaled Oxygen Concentration - - Weight 69.5 kg (153 lb 3.2 oz) 09/08/2015 3:14 PM EDT Height 160.3 cm (5' 3.1) 09/08/2015 3:14 PM EDT Body Mass Index 27.05 09/08/2015 3:14 PM EDT documented in this encounter Patient Instructions Patient InstructionsBaGiorgio luciano MD - 09/08/2015 3:48 PM EDT Try claritin or zyrtec over the counter Take prilosec REGULARLY Check about your flu shot Take benzonoate documented in this encounter Progress Notes Giorgio Cardona MD - 09/08/2015 3:43 PM EDT I have seen the patient and reviewed the resident's above history and I agree with the details as written. The assessment and plan were formulated in discussion with me and I agree with them as documented. Pertinent History: Still having phlegm production - associated with different types of foods. Lots of post-nasal drip during the summertime. Also contributing to the cough. No fever, not cp, breathing issues. 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 It is hurting and worried about malignancy. Taking omeprazole as needed and tums. Taking miralax Pertinent Exam: Filed Vitals: 09/08/15 1514 BP: 119/73 Pulse: 61 Temp: 36.8 ??C (98.3 ??F) TempSrc: Oral Resp: 16 Height: 160.3 cm (5' 3.1) Weight: 69.491 kg (153 lb 3.2 oz) SpO2: 98% Gen -no acute distress. Alert, responsive and comfortable HEENT - oropharynx moist without lesions Neck - Full range of motion Lungs - No wheezes, no crackles. Chest/Back - No spinal tenderness. Heart - RRR, S1,S2, soft murmur, gallop or rub Abdomen - Soft, nontender, no hepatosplenomegaly, masses or distention, normal active bowel sounds Extremities - No edema Major issues addressed: 1. Post-nasal drip/allergic rhinitis Consider antihistamine at this time. 2. Hyperthyroidism s/p radioactive iodine 3. Goiter causing ? anatomical obstruction --continue to monitor biochemical parameters 4. DJD Knee -- Very pleased with results. 5. S/p Mitral Regurgitation --suggest repeating in 2015. 6. Depression/Insomnia --see below 7. Lung Cancer --recent CT scan 07/2014 satisfactory. Needs repeat now 8. Pancreatic Lesion --last MRI was in March 2013 - recommendation was stability and hence no need for further f/u. 9. GERD Take prilosec regularly 10. Prostate Cancer Last saw Rad onc [...] the patient/family 13. Dyslipidemia stable 14. Preventative Asked him to verify when he got it 15. Insomnia --eliminate 3rd cup of coffee --stress management at this time. ---conservative sleep management at this time - --lack of sleep likely impacting mood/energy at this time. --if no improvement, consider melatonin. If no improvement then SSRi 16. Skin lesion Reassured at this time. Total time 25minutes 20 in face to face counseling. Gaby Underwood MD - 09/08/2015 3:18 PM EDT Established Patient Follow-up Visit History of Presenting Illness: Patient c/o a spot on the head. He is seeing Dermatology at [facility] regularly. However, he hasn't discussed with them regarding this new spot. He is concerned that it is malignant. He has been having problems with phlegm especially when he eats grain food, coffee, cream. He works 7 days/week and would eat at 11pm when he gets home. He is using prilosac as needed and also using tums. His reflux is better controlled but it is still bothering sometimes. He also c/o post nasal drip and runny nose that has been happening all summer. He has chronic cough. His constipation is stable with miralax. Patient reported measures in the past 7 [...] features. 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 [id number]; KRAS negative, EGFR negative --09/2010: CT scan - normal --02/2011: CT scan --09/2011: CT scan - negative annual CT's afterwards Outpatient Encounter Prescriptions as of 09/08/2015 Medication Sig Dispense Refill ??? albuterol (PROVENTIL [...] facility-administered encounter medications on file as of 09/08/2015. History Social History ??? Marital Status: Single [...] lumps, nodules Respiratory - (- )SOB, NIEVES (+)cough, sputum (- )wheezing HEENT - ( -) diffculty swallowing (+) nasal congestion, postnasal drip Psychiatric - (- ) sadness, depression (- ) anxiety, panic (- ) memory loss (- ) insomnia Neurological - ( -) numbness, tingling, loss of sensation ( -) weakness or function of limbs (- ) headaches Gastrointestinal - (- ) abdominal pain (- ) nausea, GERD (+) constipation, diarrhea (- ) blood in stool Genitourinary - (- ) abnormal discharge (- ) lumps, masses or nodules ( -) nocturia, dysuria, polyuria Heme/Lymph - (- ) lymph node swelling Musculoskeletal - ( -) pain at rest or with movement Objective Filed Vitals: 09/08/15 1514 BP: 119/73 Pulse: 61 Temp: 36.8 ??C (98.3 ??F) TempSrc: Oral Resp: 16 Height: 160.3 cm (5' 3.1) Weight: 69.491 kg (153 lb 3.2 oz) SpO2: 98% Gen -no acute distress. Alert, responsive and [...] sounds Extremities - No edema Skin - multiple subbhoreic keratosis in bilateral temples. The lesion that he was complaining about is one of them. Neurological - grossly normal Gait: grossly intact with normal stride length, speed, and arm swing Assessment/Plan: 75 yoM presenting for follow up. He complains of post nasal drip and acid reflux which can explain his cough. There is no worrying signs such as fever, chills, sweats, weight loss. 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 It may be contributing to his allergic symptoms. - Claritin or Zyrtac for allergic symptoms - Benzonetate for phlegm production - needs to use prilosac schedule (bid) rather than PRN - cut down on shanice use that is likely cause of constipation - skin lesion is benign. Patient is reassured. - patient to let Dr. Cardona know about whether he did get flu shot this year. - HTN controlled with current regimen - repeat TTE in 2016 for f/u for MR. - needs repeat CT scan for f/u for his lung CA. - RTC in 6 months GABY UNDERWOOD MD PGY2, Internal Medicine documented in this encounter Plan of Treatment Upcoming Encounters Date Type Specialty Care Team Description 10/11/2022 Office Visit Dermatology Virgilio Mckeon MD [facility] DR CHRISTIANO HENSON-DERMAT OLOGY [place], [place] [address] (Wo rk) 10/16/2022 Office Visit Otolaryngology rFank Buchanan MD [facility] OTOLARYNGOLOGY Sarah EPT. [place], [place] [address] (Wo rk) 11/29/2022 Appointment Hematology and Oncology 11/29/2022 Office Visit Radiation Oncology Emerald Leyva APRN [facility] RADIATION ONCOLO GY [place], [place] [address] (Wo rk) documented as of this encounter Results CT Chest Wo Contrast (GENERIC) (09/28/2015 11:54 AM EST) Anatomical Region Laterality Modality Chest Computed Tomography Specimen (Source) Anatomical Location Collection Method / Collectio n Time Received Time / Laterality Volume Impressions 09/28/2015 3:10 PM EST IMPRESSION: 1. ??Stable postsurgical changes in the right lung without evidence for tumor recurrence or regional adenopathy. 2. ??Stable small endobronchial nodule a djacent to the surgical suture. 3. ??Stable left adrenal adenoma and sev eral renal cysts in the visualized kidneys. I have personally reviewed the image(s) and the residents interpretation and agree with the findings, Kay Renner at 1 11/28/2014 3:10 PM Narrative 09/28/2015 3:10 PM EST EXAMINATION: CT CHEST WO CONTRAST CLINICAL HISTORY: f/u right lower lobe l obectomy on February 2010 for invasive adenocarcinoma with peripheral LIANET. TECHNIQUE: Helical CT of the chest was p erformed without contrast. Multiplanar reformatted images were reviewed. COMPARISON: CT chest without contrast , 01/07/2013, 02/15/2012. ? FINDINGS: Lungs and airways: Right lower lobectomy changes are noted with right perihilar surgical rajesh. A small endobronchial soft tissue nodule adjacent to the surgical suture (series 2, image 43) nelson ears stable since 02/15/2012. No pulmonary nodule or interlobular septal thickening . The airways are patent. No bronchiectasis. Pleura and pericardium: No pleural thick ening are pleural effusion. No pneumothorax. Heart and vasculature: Normal heart size . No pericardial effusion. Mitral valve prosthesis and sternotomy wires are note d. There is moderate coronary atherosclerosis in the LAD. Mediastinum and hilar structures: No lym phadenopathy. Visualized portions of the abdominal org ans included in the ekhjm-ia-isdm are notable for several stable renal cysts. A 2.9 cm lipid-rich adenoma within the left adrenal gland is stable. Osseous structure: No focal lytic or scl erotic osseous lesion. ? Procedure Note Kay Renner MD - 09/28/2015 EXAMINATION: CT CHEST WO CONTRAST CLINICAL HISTORY: f/u right lower lobe l obectomy on February 2010 for invasive adenocarcinoma with peripheral LIANET. TECHNIQUE: Helical CT of the chest was p erformed without contrast. Multiplanar reformatted images were reviewed. COMPARISON: CT chest without contrast , 01/07/2013, 02/15/2012. ? FINDINGS: Lungs and airways: Right lower lobectomy changes are noted with right perihilar surgical rajesh. A small endobronchial soft tissue nodule adjacent to the surgical suture (series 2, image 43) nelson ears stable since 02/15/2012. No pulmonary nodule or interlobular septal thickening . The airways are patent. No bronchiectasis. Pleura and pericardium: No pleural thick ening are pleural effusion. No pneumothorax. Heart and vasculature: Normal heart size . No pericardial effusion. Mitral valve prosthesis and sternotomy wires are note d. There is moderate coronary atherosclerosis in the LAD. Mediastinum and hilar structures: No lym phadenopathy. Visualized portions of the abdominal org ans included in the ceneg-up-aove are notable for several stable renal cysts. A 2.9 cm lipid-rich adenoma within the left adrenal gland is stable. Osseous structure: No focal lytic or scl erotic osseous lesion. ? IMPRESSION IMPRESSION: 1. Stable postsurgical changes in the ri ght lung without evidence for tumor recurrence or regional adenopathy. 2. Stable small endobronchial nodule adj acent to the surgical suture. 3. Stable left adrenal adenoma and sever al renal cysts in the visualized kidneys. I have personally reviewed the image(s) and the residents interpretation and agree with the findings, Kay Renner at 1 11/28/2014 3:10 PM Giorgio Cardona MD IMG CT ORDERABLES documented in this encounter Visit Diagnoses Diagnosis Anxiety Anxiety state, unspecified S/P thyroidectomy Other postprocedural status Vocal cord paralysis Paralysis of vocal cords or larynx, unsp ecified Malignant neoplasm of lung, unspecified laterality, unspecified part of lung Essential hypertension Unspecified essential hypertension Prostate cancer Malignant neoplasm of prostate Malignant neoplasm of lung, unspecified laterality, unspecified part of lung documented in this encounter Care Teams Failure Analysis Technician Relationship Specialty Start Date End Date Giorgio Cardona MD PCP - General 10/04/10 04/10/[address] [facility] [place] [address] documented as of this encounter
--- OUTSIDE RECORDS SUMMARY | 2022-10-09 16:15 | XMS_ITS | Encounter Summary ---
:1940 Author Organization [facility] [place] [address] Care Team Providers Name Role Phone Giorgio Cardona MD Primary Care Provider Reason for Referral Diagnostic Test (Routine) - Closed Specialty Diagnoses / Procedures Referred By Contact Refer red To Contact Cardiology Diagnoses S/P mitral valve repair Giorgio Cardona MD [facility] Non-Inv Card Lab Procedures Echocardiogram Transthoracic(Leb) [facility] INTERNAL [place], [place] [phone] [place] [address] Referral ID Status Reason Start Date Expiration Date Visits V isits Requested Authorized [id number] Closed Specialty 03/08/2016 03/08/2017 1 1 Service Requested Reason for Visit Reason Comments Follow-up 6 month F/U, patient states he has lots of mucous in his lungs as well as stomach issues. Also states that he feels depressed. Encounter Details Date Type Department Care Team Description 03/08/2016 Office Visit Internal Medicine Giorgio Cardona, Pancrea tic cyst; at [facility] [place] [place] Prostate cancer; [facility] Osteoarth ritis, unspecified osteoarthritis type, unspecified site; [facility] S/P mitral valve repair; [place], [place] GENERAL INTERNAL Malignant n eoplasm of lung, unspecified laterality, unspecified part of lung; [id number] MEDICINE Impaired fasting glucose; [phone] [place], [place] [address] Essential hypertension, hypertension wit h unspecified goal; [phone] Gastroesophagea l reflux disease without esophagitis; (Work) Dyslipidemia Social History Tobacco Use Types Packs/Day Years Used Date Smoking Tobacco: Never Smokeless Tobacco: Never Alcohol Use Standard Drinks/Week Comments Yes 0 (1 standard drink = 0.6 oz pure alcoho l) RARE Sex Assigned at Date Recorded Not on file documented as of this encounter Last Filed Vital Signs Vital Sign Reading Time Taken Comments Blood Pressure 119/68 03/08/2016 10:04 AM EDT Pulse 57 03/08/2016 10:04 AM EDT Temperature 36.2 ??C (97.2 ??F) 03/08/2016 10:04 AM EDT Respiratory Rate 16 03/08/2016 10:04 AM EDT Oxygen Saturation 97% 03/08/2016 10:04 AM EDT Inhaled Oxygen Concentration - - Weight 68.5 kg (151 lb) 03/08/2016 10:04 AM EDT Height 163.3 cm (5' 4.29) 03/08/2016 10:04 AM EDT Body Mass Index 25.68 03/08/2016 10:04 AM EDT documented in this encounter Patient Instructions Patient InstructionsBaGiorgio luciano MD - 03/08/2016 10:23 AM EDT Confirm with your insurance company about coverage for the shingles vaccine. documented in this encounter Progress Notes Giorgio Cardona MD - 03/08/2016 10:14 AM EDT Established Patient Follow-up Visit History of Presenting Illness: Patient here to followup on acute and chronic medical issues [place] knee was not hurting while in [place]. He was able to climb ladders - he ran for the first time. He was running fast. Right shoulder hurting him - but not in [place] No significant pain currently. He liked [place]. No medical problems. Feels that he is depressed. Lots of personal things are problematic. Lost a lot of $$ and had divorce issues needing to pay back $. Declines any medications at this time. Having some family discord at this time with his brother - related to inheritance Relationship with [place]. Breathing is OK - good for this time. No swelling in the legs Urinary issues are fine. Patient reported measures in the past 7 [...] features. 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 [id number]; KRAS negative, EGFR negative --09/2010: CT scan - normal --02/2011: CT scan --09/2011: CT scan - negative annual CT's afterwards Outpatient Encounter Prescriptions as of 03/08/2016 Medication Sig Dispense Refill ??? albuterol (PROVENTIL [...] facility-administered encounter medications on file as of 03/08/2016. History Social History ??? Marital Status: Single [...] ) nasal congestion, postnasal drip Psychiatric - (+) sadness, depression (- ) anxiety, panic (- [...] rest or with movement Objective Filed Vitals: 03/08/16 1004 BP: 119/68 Pulse: 57 Temp: 36.2 ??C (97.2 ??F) TempSrc: Oral Resp: 16 Height: 163.3 cm (5' 4.29) Weight: 68.493 kg (151 lb) SpO2: 97% Gen -no acute distress. Alert, responsive and comfortable Gait: grossly intact with normal stride length, speed, and arm swing Assessment/Plan: 1. Post-nasal drip/allergic rhinitis ?? # Hoarseness Discussed today - conservative management. Not a big problem for him. Offered ENT evaluation for hoarseness. 2. Hyperthyroidism s/p radioactive iodine ?? 3. 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 --continue to monitor biochemical parameters ?? 4. DJD Knee ?? -- Very pleased with results. ?? 5. S/p Mitral Regurgitation ?? --suggest repeating now?? 6. Depression/Insomnia ?? --see below ?? 7. Lung Cancer ?? --recent CT scan 09/2015 satisfactory. Needs repeat now 8. Pancreatic Lesion ?? --last MRI was in March 2013 - recommendation was stability and hence no need for further f/u. 9. GERD ?? Take prilosec regularly 10. Prostate Cancer ?? Will see Rad onc ?? 11. Hypertension ?? Hypertension Plan of Care [...] with the patient/family ?? 13. Dyslipidemia ?? stable ?? 14. Preventative Will verify with insurance re: zostavax 15. Insomnia ?? Discussed - does not want Rx 16. Depression Will monitor I counselled the patient on the above [...] by one of my nurses, letter, or [facility]. Next Appointment: Return in about 6 months (around 09/07/2016) for f/u visit. Total time: 25 Minutes, 15 Of the visit time was spent in [id number] counselling of the above issues documented in this encounter Plan of Treatment Upcoming Encounters Date Type Specialty Care Team Description 10/11/2022 Office Visit Dermatology Virgilio Mckeon MD [facility] ER DR CHRISTIANO HENSON-DERMAT OLOGY [place], [place] [address] (Wo rk) 10/16/2022 Office Visit Otolaryngology Frank Buchanan MD [facility] ER OTOLARYNGOLOGY Sarah EPT. [place], [place] [address] (Wo rk) 11/29/2022 Appointment Hematology and Oncology 11/29/2022 Office Visit Radiation Oncology Emerald Leyva APRN [facility] ER RADIATION ONCOLO GY [place], [place] [address] (Wo rk) documented as of this encounter Results ECHOCARDIOGRAM COMPLETE (03/08/2016 11:21 AM EDT) athologist Signature EF 63 HEARTLAB SYSTEM Anatomical Region Laterality Modality Other Specimen (Source) Anatomical Location Collection Method / Collectio n Time Received Time / Laterality Volume 03/08/2016 Narrative 03/08/2016 12:39 PM EDT Procedure: ?Transthoracic Echocardiogram Patient: ?RACQUEL Rodriguez ?? (Age): 1940(75y) Med Rec#: ? [id number] ?Sex: ?M ? Site Loc: ? [facility] [place] ?Ht / Wt: ??170(cm)/68(kg) Pt. Loc: ?Echo Lab ?BSA: ?1.79 Study Date: ?? 03/08/2016 ?Pt. Type: Outpatient Tape: ? Referring: Giorgio Cardona Reading: Isaac Pina ([id number]) Cosmetic Sales: Eliel Pederson Diagnosis: *ICD-10-PCS Other specified postprocedu ral states (Z98.89) CPT Codes: *Echo Full (48446) *Spectral Doppler (38391) *Color Doppler (52816) Rhythm: ? Bradycardia BP: ? 119/68 SUMMARY: [...] E-wave Vmax ?1.4 ?m/sec ? MV deceleration [id number] ? msec ? MV A-wave Vmax ?1.2 [...] ? Mid-Inferior ?Normal ? Mid-Inferoseptal ?Normal ? [place]-Septal ? Normal ? [place]-Anterior ? Normal ? [place]-Lateral ?Normal ? [place]-Inferior ? Normal ? [place]-Tip ?Normal ? This report has been electronically sign ed by: _ Isaac Pina MD ? 03/08/2016 12 :39:30 [facility] Procedure Note Isaac Pina MD - 03/08/2016Formatt ing of this note might be different from the original. Procedure: Transthoracic Echocardiogram Patient: RACQUEL Rodriguez (Age): 1940(75y) Med Rec#: [id number] Sex: M Site Loc: [facility] [place] Ht / Wt: 170(cm)/68(kg) Pt. Loc: Echo Lab BSA: 1.79 Study Date: 03/08/2016 Pt. Type: Outpati ent Tape: Referring: Giorgio Cardona Reading: Isaac Pina ([id number]) Cosmetic Sales: Eliel Pederson Diagnosis: *ICD-10-PCS Other specified postprocedu ral states (Z98.89) CPT Codes: *Echo Full (45387) *Spectral Doppler (15394) *Color Doppler (79675) Rhythm: Bradycardia BP: 119/68 SUMMARY: 1. The [...] MV E-wave Vmax 1.4 m/sec MV deceleration [id number] msec MV A-wave Vmax 1.2 m/sec MV [...] Normal Mid-Posterolateral Normal Mid-Inferior Normal Mid-Inferoseptal Normal [place]-Septal Normal [place]-Anterior Normal [place]-Lateral Normal [place]-Inferior Normal [place]-Tip Normal This report has been electronically sign ed by: _ Isaac Pina MD 03/08/2016 12:39:30 Images reviewed and interpretation verif ied [facility] Cardiac Ultrasound Laboratory Giorgio Cardona MD ECHO ORDERABLES documented in this encounter Visit Diagnoses Diagnosis Pancreatic cyst Cyst and pseudocyst of pancreas Prostate cancer Malignant neoplasm of prostate Osteoarthritis, unspecified osteoarthrit is type, unspecified site S/P mitral valve repair Other postprocedural status Malignant neoplasm of lung, unspecified laterality, unspecified part of lung Impaired fasting glucose Essential hypertension, hypertension wit h unspecified goal Gastroesophageal reflux disease without esophagitis Esophageal reflux Dyslipidemia Other and unspecified hyperlipidemia S/P mitral valve repair Other postprocedural status documented in this encounter Care Teams Form Designer Relationship Specialty Start Date End Date Giorgio Cardona MD PCP - General 10/04/10 04/10/[address] [facility] [address] [place] [address] documented as of this encounter
--- OUTSIDE RECORDS SUMMARY | 2022-10-09 16:15 | XMS_ITS | Encounter Summary ---
:1940 Author Organization [facility] Address [facility] [place] [address] Care Team Providers Name Role Phone Giorgio Cardona MD Primary Care Provider Reason for Visit Reason Comments Hoarseness Hoarse voice, occ aspiration , H/O thyroidectomy 2011. Consultation (Routine) - Closed Specialty Diagnoses / Procedures Referred By Contact Refer red To Contact Otolaryngology Diagnoses H/O thyroidectomy Hoarse voice quality Dexter Cote Paydarfar, Joseph A, MD MD [facility] D [facility] THORACIC SURGERY [place] [address] [place] [address] Fax: Referral ID Status Reason Start Date Expiration Date Visits V isits Requested Authorized [id number] Closed Consult, 09/04/2016 09/04/2017 1 1 Test & Treat Encounter Details Date Type Department Care Team Description 10/16/2016 Office Visit Otolaryngology at [facility] Ramin Buchanan; [facility] Sarah Beaulieu MD Recurrent pneumonia; [place] [address] [facility] H/O thyroidectomy; [phone] CENTER Dysphagia, unspecified type OTOLARYNGOLOGY DEPT. [place], [place] [address] Social History Tobacco Use Types [...] - Inhaled Oxygen Concentration - - Weight 68 kg (150 lb) 10/16/2016 9:41 AM EST Height 161.3 cm (5' 3.5) 10/16/2016 9:41 AM EST Body Mass Index 26.15 10/16/2016 9:41 AM EST documented in this encounter Progress Notes Crys Acosta MD - 10/16/2016 10:00 AM EST [facility] New Patient Consultation Consult requested by: Dexter Cote CHIEF COMPLAINT Hoarseness, recurrent aspiration pneumonia HISTORY History was obtained through review of the relevant records, discussion with referring physician and/or patient interview. This is a 76 y.o. male with hoarseness in 2011 when he had a total thyroidectomy by Dr. Guthrie. At the time he was noted to have a left vocal cord injury. He was seen previously by Dr. Buchanan anddiscussed Radiesdrase injection but cancelled surgery. Now with inspiratory stridor. Some difficulty with swallowing, coughing/choking. Recurrent pneumonias/aspiration Frequent productive cough. Recent problems with reflux, cut out coffee with improvement SOB with exertion (long walks or running) able but to rake leaves without difficulty Presenting now because he is having difficulty with his voice. Social isolation due to his peers being unable to understand him. Of note he has a history of lung cancer and is s/p lobectomy PROBLEM LIST Patient Active Problem List Diagnosis Date Noted ??? 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 Basal cell [...] Multinodular goiter ??? Pancreatic cyst 09/12/2010 ??? Constipation 05/12/2010 ??? Dyslipidemia ??? GERD (gastroesophageal reflux disease) ??? Hypertension ??? Impaired fasting glucose ??? S/P mitral valve repair ??? Osteoarthritis ??? Prostate cancer ??? Lung cancer 12/13/2009 PAST HISTORY Past Medical History Diagnosis Date ??? Arthritis knee replacement right ??? Aspiration into lower respiratory tract 05/06/2013 ??? Colon polyps ??? Difficulty in swallowing ??? Dry mouth ??? Dyslipidemia ??? GERD (gastroesophageal reflux disease) ??? Hypertension ??? Inguinal hernia left recurrent ??? Lung cancer ??? Multinodular goiter ??? Pancreatic cyst ??? Prostate cancer s/p XRT ??? Skin cancer 07/2013 squamous cell Past Surgical History Procedure Laterality Date ??? Created by interface BRONCHOSCOPY; DX, WWO CELL WASHING (THORACIC) Procedure Date: 02/09/2010 ??? Created by interface LYMPHADENECTOMY,THORACIC ,REGIONAL,INCL. MEDIASTINAL (THORACIC) / RIGHT Procedure Date: 02/09/2010 ??? Created by interface NERVE BLOCK,INTERCOSTAL NERVE, MULTIPLE (THORAC) Procedure Date: 02/09/2010 ??? Created by interface THORACOSCOPY,SURGICAL,W\LOBECTOMY,TOTAL OR SEGMENTAL / RIGHT Procedure Date: 02/09/2010 ??? Created by interface VALVULOPLASTY,MITRAL VALVE, W\CPB; W\PROSTHETIC RING Procedure Date: 11/25/2004 ??? Cardiac valve replacement ??? Umbilical hernia repair ??? Inguinal hernia repair s/p Bilateral Inguinal hernia repairs.(Left without mesh in 1963) ??? Pro repair recurr inguin rajendra, reducibl 03/10/2011 HERNIA REPAIR, INGUINAL, RECURRENT performed by NOREEN BOWIE at [facility] MAIN OR ??? Pro thyroidectomy=substernal, transcerv 11/30/2011 THYROIDECTOMY, INCL. SUBSTERNAL, CERVICAL APPROACH performed by FRANK GUTHRIE at [facility] MAIN OR ??? Prg somatosensory test, any/all per. nerves, trunk or head 11/30/2011 FACIAL NERVE MONITORING, SETUP performed by FRANK GUTHRIE at [facility] MAIN OR ??? Upper gi endoscopy, exam 01/29/2012 UPPER GI ENDOSCOPY performed by VICKI SON at [facility] ENDOSCOPY ??? Lung cancer surgery Partial removal of R lung ??? Pro total knee arthroplasty 06/19/2012 @TOTAL KNEE ARTHROPLASTY performed by ADAM CARRERO at [facility] MAIN OR ??? Pro colonoscopy, remv lesn, snare 01/06/2013 COLONOSCOPY, POLYPECTOMY, REMOVAL LESION BY SNARE performed by Josh Jeffery MD at [facility] ENDOSCOPY ??? Rotator cuff repair 2013 FAMILY HISTORY Family History Problem Relation Age of Onset ??? Asthma Mother ??? Heart Failure Father ??? Thyroid Disease Paternal Grandmother hypertension SOCIAL HISTORY Social History Substance Use Topics ??? Smoking status: Never Smoker ??? Smokeless tobacco: Never Used ??? Alcohol use Yes Comment: RARE ALLERGIES Allergies Allergen Reactions ??? Cyclobenzaprine Urinary retention, xerostomia ??? Lactose Other (See Comments) Sneezing MEDICATIONS Current Outpatient Prescriptions Medication Sig Dispense Refill [...] No current facility-administered medications for this visit. ROS: +urinary frequency Pertinent positive findings discussed above. No other findings on review of constitutional visual, cardiovascular, respiratory, gastrointestinal, genitourinary, musculoskeletal, dermatologic, neurological, psychiatric, endocrine, hematologic or immunologic systems. EXAM: Vitals: Height 161.3 cm (5' 3.5), weight 68 kg (150 lb). General: No acute distress. Significant hoarseness and winded with phonation Face: Normocephalic and atraumatic Eyes: Extraocular movement is full and intact. No dysconjugate gaze. No evidence of nystagmus. Periocular structures and conjunctiva healthy without lesions. Ears: Normal exam of the external ear, canal and tympanic membrane. Nose: Normal external exam. Normal exam of the septum and turbinates. Mouth: Lips and gingiva pink, moist, without lesions. Gums/dentition healthy. Tongue and floor of mouth soft without lesions or masses. Hard palate without lesions. Pharynx: Normal exam of the tonsils, tonsillar fossa, soft palate, lateral pharyngeal wall, and posterior pharynx. Mirror exam poorly tolerated secondary to gag reflex Neck: Soft supple without significant lymphadenopathy. Thyroid gland removed, well healed scar. Trachea midline without deviation. Resp: Breathing comfortably without stridor or retractions. Mild biphasic stridor with deep respirations. Normal respirations. CV: Regular rate. MSK: Normal neck range of motion, no trismus. Skin: Skin survey of the head and neck is without concerning lesion. Multiple small lesions - followed by dermatology for these Neurologic: Cranial nerves II-XII intact and symmetric. AxOx3, responds appropriately to questions. Psych: Normal mood and affect. PROCEDURE NOTE: Flexible Fiberoptic Laryngoscopy: Topical anesthetic and decongestant applied to the nasal cavity. Patient tolerated the procedure well without any complications. 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 Recurrent pneumonias since that time, some coughing/choking with food. Discussed risks and benefits of VC injection and he would like to proceed with Radiesse injection. In the meantime, patient was instructed to perform head turn and chin tuck to the LEFT when swallowing. He knows to call if problems - s/s aspiration pneumonia CRYS ACOSTA MD 10/16/2016 Ramin Buchanan MD - 10/16/2016 10:00 AM EST Attending note: Patient seen and examined with the above resident. I have reviewed and agree with the history, physical, and assessment and plan. I was present and supervised the flexible fiberoptic laryngoscopy. Patient with long standing left vocal cord paralysis. We discussed medialization thyroplasty (more permanent option) vs laryngoscopy with injection (likely temporary). Pros/cons of each approach discussed. The patient would prefer the laryngoscopy with injection to see how this could potentially improve his voice and then possibly consider an open approach. He understands that his voice improvement may only last about 3-6 months. He will call to set up surgery. Ramin Buchanan MD FACS Otolaryngology - Head & Neck Surgery documented in this encounter Plan of Treatment Upcoming Encounters Date Type Specialty Care Team Description 10/11/2022 Office Visit Dermatology Virgilio Mckeon MD [facility] DR CHRISTIANO HENSON-DERMAT OLOGY [place], [place] [address] (Wo sriram) 10/16/2022 Office Visit Otolaryngology Frank Buchanan MD [facility] OTOLARYNGOLOGY Sarah EPT. [place], [place] [address] (Wo sriram) 11/29/2022 Appointment Hematology and Oncology 11/29/2022 Office Visit Radiation Oncology Emerald Leyva, METER REPAIRER HELPER [facility] RADIATION [place]O [place], [place] [address] (Wo rk) documented as of this encounter Visit Diagnoses Diagnosis Hoarseness Dysphonia Recurrent pneumonia Pneumonia, organism unspecified H/O thyroidectomy Other postprocedural status Dysphagia, unspecified type documented in this encounter Care Teams Structural Test Engineer Relationship Specialty Start Date End Date Giorgio Cardona MD PCP - General 10/04/10 04/10/17 [facility] GENERAL [place] [address] documented as of this encounter
--- OUTSIDE RECORDS SUMMARY | 2022-10-09 16:15 | XMS_ITS | Encounter Summary ---
:1940 Author Organization [facility] [place] [address] Care Team Providers Name Role Phone Giorgio Cardona MD Primary Care Provider Reason for Referral Diagnostic Test (Routine) - Closed Specialty Diagnoses / Procedures Referred By Contact Refer red To Contact Radiology Diagnoses Malignant neoplasm of lung, unspecified laterality, unspecified part of lung Giorgio Cardona MD Radiology Procedures CT Chest Wo Contrast (GENERIC) [facility] [place], [place] [address] [place] [address] Referral ID Status Reason Start Date Expiration Date Visits V isits Requested Authorized [id number] Closed Specialty 09/08/2015 09/07/2016 1 1 Service Requested Reason for Visit Diagnostic Test (Routine) - Closed Specialty Diagnoses / Procedures Referred By Contact Refer red To Contact Radiology Diagnoses Malignant neoplasm of lung, unspecified laterality, unspecified part of lung Giorgio Cardona MD Radiology Procedures CT Chest Wo Contrast (GENERIC) [facility] [place], [place] [address] [place] [address] Referral ID Status Reason Start Date Expiration Date Visits V isits Requested Authorized [id number] Closed Specialty 09/08/2015 09/07/2016 1 1 Service Requested Encounter Details Date Type Department Care Team Description 09/28/[address] Scan at [facility] Giorgio Cardona, Malignant neoplasm [facility] MD of lung, unspecified Drive [facility] laterality, [place], [place] [address] GENERAL INTERNAL lung [phone] MEDICINE [place], [place] [address] Social History Tobacco Use Types [...] 10 mEq mouth daily. extended release tablet polyethylene glycol Take 17 g by mouth 0 11/17/2015 (MIRALAX) 17 gram packet daily. atenolol (TENORMIN) 50 mg TAKE ONE-HALF 45 [...] [facility] DR CHRISTIANO HENSON-DERMAT OLOGY [place], [place] [address] (Wo rk) 10/16/2022 Office Visit Otolaryngology Frank Buchanan MD [facility] OTOLARYNGOLOGY Sarah EPT. [place], [place] [address] (Wo rk) 11/29/2022 Appointment Hematology and Oncology 11/29/2022 Office Visit Radiation Oncology Emerald Leyva APRN [facility] RADIATION ONCOLO GY [place], [place] [address] (Wo rk) documented as of this encounter Procedures Procedure Name Priority Date/Time Associated Diagnosis Comme nts CT CHEST WO Routine 09/28/2015 11:54 AM Malignant neoplasm Re sults for this CONTRAST (GENERIC) EST of lung, unspecified p rocedure are in laterality, the results unspecified part of section. lung documented in this encounter Results CT Chest Wo Contrast [...] the abdominal org ans included in the [id number] are notable for several stable renal cysts. [...] the abdominal org ans included in the [id number] are notable for several stable renal cysts. [...] encounter Visit Diagnoses Diagnosis Malignant neoplasm of lung, unspecified laterality, unspecified part of lung documented in this encounter Care Teams Real Estate Sales Agent Relationship Specialty Start Date End Date Giorgio Cardona MD PCP - General 10/04/10 04/10/[address] [facility] [address] KELLY [place] [address] documented as of this encounter
--- OUTSIDE RECORDS SUMMARY | 2022-10-09 16:15 | XMS_ITS | Encounter Summary ---
:1940 Author Organization [facility] Address [facility] [place] [address] Care Team Providers Name Role Phone Giorgio Cardona MD Primary Care Provider Reason for Referral Consultation (Routine) - Closed Specialty Diagnoses / Procedures Referred By Contact Refer red To Contact Otolaryngology Diagnoses H/O thyroidectomy Hoarse voice quality Dexter Matute Paydarfar, Joseph A, MD MD [facility] D [facility] THORACIC SURGERY OTOLARYNGOLOGY DEPT. [place], [place] [id number] [place] [address] Fax: Referral ID Status Reason Start Date Expiration Date Visits V isits Requested Authorized [id number] Closed Consult, 09/04/2016 09/04/2017 1 1 Test & Treat Reason for Visit Reason Comments Follow-up Encounter Details Date Type Department Care Team Description 09/04/2016 Office Visit Thoracic Surgery at [place], History of lung cancer; [facility] Dexter Pugh MD H/O thyroidectomy; Pending sale to [facility] Hillary rse voice quality Drive [address] [place] THORACIC SURGERY [address] [place] [address] [phone] Social History Tobacco Use Types Packs/Day Years Used Date Smoking Tobacco: Never Smokeless Tobacco: Never Alcohol Use Standard Drinks/Week Comments Yes 0 (1 standard drink = 0.6 oz pure alcoho l) RARE Sex Assigned at Date Recorded Not on file documented as of this encounter Last Filed Vital Signs Vital Sign Reading Time Taken Comments Blood Pressure 137/67 09/04/2016 8:55 AM EDT Pulse 59 09/04/2016 8:55 AM EDT Temperature 37.1 ??C (98.8 ??F) 09/04/2016 8:55 AM EDT Respiratory Rate 20 09/04/2016 8:55 AM EDT Oxygen Saturation 98% 09/04/2016 8:55 AM EDT Inhaled Oxygen Concentration - - Weight 68.5 kg (151 lb) 09/04/2016 8:55 AM EDT Height 161.4 cm (5' 3.54) 09/04/2016 8:55 AM EDT Body Mass Index 26.29 09/04/2016 8:55 AM EDT documented in this encounter Patient Instructions Patient InstructionsRuKimberly solano RN - 09/04/2016 9:15 AM EDT ?? You will have a Chest CT scan in 1 year and be seen by Dr. Matute for follow up as part of your regular surveillance for lung cancer. A letter will be sent to you approximately one month before you are expected to follow up to schedule this appointment and test. ?? Dr. Matute has made a referral to the chemical laboratory tester (Ear, Nose and Throat doctor) to assess your hoarse voice and occasional difficulty swallowing. Expect a call from their office to schedulean appointment. ?? Exercise each day for 30 [...] a treadmill or stationary bike. Please call the thoracic surgery office at with any questions. documented in this encounter Progress Notes Sharita Phipps MA - 09/04/2016 9:15 AM EDT Thank you for seeing Dr. Matute today. You will have a Chest CT scan in 1 year and be seen by Dr. Matute for follow up as part of your regular surveillance for lung cancer. A letter will be sent to you approximately one month before youare expected to follow up to schedule this appointment and test. Exercise each day for 30 minutes or longer. Daily aerobic exercise for at least 30 minutes will helpimprove your endurance and improve the breathing capacity of your lungs. This means that you are breathing hard, your heart is beating fast and that you are sweating. Examples of this include walking, biking, swimming, and using a treadmill or stationary bike. Please call the thoracic surgery office at with any questions. 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 HISTORY OF PRESENT ILLNESS: Mr. 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 He did not undergo any postoperative therapy. More recently in 2011, he underwent a thyroidectomy which was complicated by an avulsion of the left recurrent laryngeal nerve. He was last seen by thoracic surgery in July 2014 at which point he was doing well. 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 He reports occasional episodes of aspiration and is still quite bothered by his hoarse voice. He reports that this is both an aspiration risk and also an impediment to his continued professional activities. He has no new complaints of cough, fever, chills, weight loss, or palpable lymphadenopathy. PHYSICAL EXAM: Today he appears his stated age and overall well. His voice seldom rises above a whisper. Blood pressure is 137/67, heart rate 59, respiratory rate 20, temp 98.8, O2 sat 98% on room air. His weight is 68.5 kg which is stable. He is alert and oriented, in no acute distress. Lungs are clear to auscultation. Heart is regular. Abdomen is nontender and nondistended. His incisions are well healed. IMAGING: I reviewed a chest CT without contrast today. This demonstrates no evidence of recurrent or metastatic disease and no new lung nodules. ASSESSMENT: A 76-year-old man with a completely resected T1a and 0 adenocarcinoma who is now 6 years out from surgery. We recommend continued annual surveillance because of the possibility of new nodules or local reccurrence. In terms of his voices, I believe that he would benefit from evaluation by an ear, nose, throat doctor to see if his paralyzed vocal cord could still be medialized. I have placed relevant referral as the patient demonstrated having this discussed further. PLAN: Return to clinic in [address]contrast chest CT, otorhinolaryngology referral for possible medialization of paralyzed vocal cord. DEXTER MATUTE MD documented in this encounter Plan of Treatment Upcoming Encounters Date Type Specialty Care Team Description 10/11/2022 Office Visit Dermatology Virgilio Mckeon MD [facility] DR CHRISTIANO HENSON-DERMAT OLOGY [place], [place] [address] (Leroy bhatia) 10/16/2022 Office Visit Otolaryngology Frank Buchanan MD [facility] OTOLARYNGOLOGY Sarah EPT. [place], [place] [address] (Leroy bhatia) 11/29/2022 Appointment Hematology and Oncology 11/29/2022 Office Visit Radiation Oncology Emerald Leyva APRN [facility] RADIATION ONCCESAR GY [place], [place] [address] (Leroy bhatia) Scheduled Referrals Name Type Priority Associated Diagnoses Order S chedule Referral to ENT Outpatient Referral Routine H/O thyroide ctomy Ordered: 09/04/2016 Hoarse voice quality documented as of this encounter Visit Diagnoses Diagnosis History of lung cancer Personal history of malignant neoplasm o f bronchus and lung H/O thyroidectomy Other postprocedural status Hoarse voice quality Dysphonia documented in this encounter Care Teams Play Back Operator Relationship Specialty Start Date End Date Giorgio Cardona MD PCP - General 10/04/10 04/10/[address] [facility] [address] KELLY [place] [address] documented as of this encounter
--- OUTSIDE RECORDS SUMMARY | 2022-10-09 16:15 | XMS_ITS | Encounter Summary ---
:1940 Author Organization [facility] [place] [address] Care Team Providers Name Role Phone Giorgio Cardona MD Primary Care Provider Encounter Details Date Type Department Care Team Description 04/06/2016 Hospital Encounter XRay at [facility] [place] [place] Gregor Masterson Wheezing; [address] [place] [address] Dr Lexy MD SOB (shortness of breath) [facility] [address] [place] [phone] GENERAL INTERNAL MEDICINE [place], [place] [address] Social History Tobacco Use Types [...] Inhale 2 puffs into 1 Inhaler 1 201507/14/2016 HFA;VENTOLIN HFA;PROAIR) the lungs every 4 90 mcg/actuation HFA hours as needed for Aerosol Wheezing. Use with InhalerIndications: spacer Wheezing inhalational spacing 1 Device by 1 each 2 04/06/201612/2015 device (AEROCHAMBER MV) Misc.(Non-Drug; Spacer Combo Route) route every 4 hours as needed. omeprazole (PRILOSEC) 20 Take 1 capsule by [...] [facility] DR CHRISTIANO HENSON-DERMAT OLOGY [place], [place] [address] (Wo rk) 10/16/2022 Office Visit Otolaryngology Frank Buchanan MD [facility] OTOLARYNGOLOGY Sarah EPT. [place], [place] [address] (Wo rk) 11/29/2022 Appointment Hematology and Oncology 11/29/2022 Office Visit Radiation Oncology Emerald Leyva APRN [facility] RADIATION ONCCESAR GY [place], [place] [address] (Wo rk) documented as of this encounter Procedures Procedure Name Priority Date/Time Associated Diagnosis Comme nts XR CHEST PA AND Routine 04/06/2016 12:24 PM Wheezing Results for this LATERAL EDT SOB (shortness of procedure are in breath) the results section. documented in this encounter Results XR Chest PA & Lateral (Generic) (04/06/2016 [...] breath documented in this encounter Care Teams Vending Machine Filler Relationship Specialty Start Date End Date Giorgio Cardona MD PCP - General 10/04/10 04/10/17 [facility] [place] [address] documented as of this encounter
--- OUTSIDE RECORDS SUMMARY | 2022-10-09 16:15 | XMS_ITS | Encounter Summary ---
:1940 Author Organization [facility] [place] [address] Care Team Providers Name Role Phone Giorgio Cardona MD Primary Care Provider Reason for Visit Reason Comments Other cyst on his toe,x 2 weeks an sarah sevilla Encounter Details Date Type Department Care Team Description 10/17/2016 Office Visit [place] Medicine [place] [facility]adia Quigley, ROSITA Neville; [facility] Sarah garcia [facility] [place] [address] General Internal [phone] Medicine [place], [place] [address] (Wo rk) Social History Tobacco Use Types Packs/Day Years Used Date Smoking Tobacco: Never Smokeless Tobacco: Never Alcohol Use Standard Drinks/Week Comments Yes 0 (1 standard drink = 0.6 oz pure alcoho l) RARE Sex Assigned at Date Recorded Not on file documented as of this encounter Last Filed Vital Signs Vital Sign Reading Time Taken Comments Blood Pressure 127/74 10/17/2016 2:52 PM EST Pulse 57 10/17/2016 2:52 PM EST Temperature 36.5 ??C (97.7 ??F) 10/17/2016 2:52 PM EST Respiratory Rate 14 10/17/2016 2:52 PM EST Oxygen Saturation 97% 10/17/2016 2:52 PM EST Inhaled Oxygen Concentration - - Weight 69.5 kg (153 lb 3.2 oz) 10/17/2016 2:52 PM EST Height 161.3 cm (5' 3.5) 10/17/2016 2:52 PM EST Body Mass Index 26.71 10/17/2016 2:52 PM EST documented in this encounter Patient Instructions Patient InstructionsWFadia hutson APRN - 10/17/2016 3:30 PM EST Foot Pain -Acetaminophen 500-1000 mg three times a day as needed. -Follow up with Customer Security Clerk. -Ice. documented in this encounter Progress Notes Fadia Rendon APRN - 10/17/2016 3:30 PM EST ESTABLISHED PATIENT VISIT I. HISTORY A. Reason(s) for Visit: Alfredito Mina is a 76 y.o. male asked to be seen for Chief Complaint Patient presents with ??? Other cyst on his toe,x 2 weeks and hurting B. History of Present Illness: Mr. Mina is here for evaluation of pain in his right great toe. States the pain began 2 weeks ago, today it is significantly worse. He has not tried to put anything on it or take anything for it.Otherwise feels well. Patient Active Problem List Diagnosis Code ??? [...] weight loss or gain, no fatigue. Neuro- no dizziness, no change in vision, no balance [...] no incontinence, no nocturia. Musculoskeletal- No weakness, positive for pain in right great toe with movement. Psychiatric- No depression, no anxiety, no memory loss. II. PHYSICAL EXAM: Vitals: 10/17/16 1452 BP: 127/74 Pulse: 57 Resp: 14 Temp: 36.5 ??C (97.7 ??F) General- No acute distress, conversing without difficulty. Neuro- Gait w/normal stride, speed and arm swing. CN II-IX grossly intact. Positive for splinter in pad of foot under right great toe. Extremities- No clubbing, cyanosis or edema. Pulses intact. III. ASSESSMENT/PLAN: 76 year old male here for evaluation of right great toe pain. On exam noted a splinter, this was removed. 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 Recommend follow up with podiatry. He has a molecular biology scientist closer to home. Acetaminophen for pain. Patient Instructions Foot Pain -Acetaminophen 500-1000 mg three times a day as needed. -Follow up with Customer Security Clerk. -Ice. documented in this encounter Plan of Treatment Upcoming Encounters Date Type Specialty Care Team Description 10/11/2022 Office Visit Dermatology Virgilio Mckeon MD [facility] DR CHRISTIANO HENSON-DERMAT OLOGY [place], [place] [address] (Wo rk) 10/16/2022 Office Visit Otolaryngology Frank Buchanan MD [facility] OTOLARYNGOLOGY Sarah EPT. [place], [place] [address] (Wo rk) 11/29/2022 Appointment Hematology and Oncology 11/29/2022 Office Visit Radiation Oncology Emerald Leyva APRN [facility] RADIATION ONCCESAR GY [place], [place] [address] (Wo rk) documented as of this encounter Visit Diagnoses Diagnosis Bunion Splinter Other, multiple, and unspecified sites, superficial foreign body (splinter), without major open wound and without mention of infection documented in this encounter Care Teams Singeing Torch Operator Relationship Specialty Start Date End Date Giorgio Cardona MD PCP - General 10/04/10 04/10/17 [facility] [place] [address] documented as of this encounter
--- OUTSIDE RECORDS SUMMARY | 2022-10-09 16:15 | XMS_ITS | Encounter Summary ---
:1940 Author Organization [facility] Address [address] [place] [address] Care Team Providers Name Role Phone Giorgio Cardona MD Primary Care Provider Encounter Details Date Type Department Care Team Description 07/14/2016 Hospital Encounter [place] [facility] [place] Alessio Quezada [facility] Lexy MD artificial knee [place], [place] [facility] joint, right [phone] [place] [phone] [place] [address] Social History Tobacco Use Types Packs/Day Years [...] [facility] DR CHRISTIANO HENSON-DERMAT OLOGY [place], [place] [address] (Wo rk) 10/16/2022 Office Visit Otolaryngology Frank Buchanan MD [facility] OTOLARYNGOLOGY D EPT. [place], [place] [address] (Wo rk) 11/29/2022 Appointment Hematology and Oncology 11/29/2022 Office Visit Radiation Oncology Emerald Leyva APRN [facility] RADIATION ONCOLO GY [place], [place] [address] (Wo rk) documented as of this encounter Procedures Procedure Name Priority Date/Time Associated Comments Diagnosis XR KNEE DIAGNOSTIC 1 Routine 07/14/2016 7:29 AM Presence of R esults for this OR 2 VIEW RIGHT EDT artificial knee procedure are in joint, right the results section. documented in this encounter Results XR Knee diagnostic 1 or 2 View Right (07/14/2016 7:29 AM EDT) Anatomical Region Laterality Modality Knee Right Digital Radiography Specimen (Source) Anatomical Location Collection Method / Collectio n Time Received Time / Laterality Volume Impressions 07/14/2016 1:22 PM EDT Status post right total knee arthroplasty. No evidence of complication. I have personally reviewed the image(s) and the residents interpretation and agree with the findings, Allison guerrero 07/14/2016 1:22 PM Narrative 07/14/2016 1:22 PM EDT EXAMINATION: XR KNEE DIAGNOSTIC 1 OR 2 VIEW RIGHT CLINICAL HISTORY: R TKA TECHNIQUE: AP and lateral views of the r ight knee. COMPARISON: Multiple radiographs of the knees dating back to February 28, 2011. The most recent prior ?? jun ??2013. FINDINGS: Patient status post right total knee art hroplasty. No radiographic evidence complications. No joint effusion or soft tissue swelling. Unchanged small amount of heterotopic bone formation proximal t o the upper pole of the patella. Procedure Note Allison Biswas MD - 07/14/2016Formatt ing of this note might be different from the original. EXAMINATION: XR KNEE DIAGNOSTIC 1 OR 2 V IEW RIGHT CLINICAL HISTORY: R TKA TECHNIQUE: AP and lateral views of the r ight knee. COMPARISON: Multiple radiographs of the knees dating back to February 28, 2011. The most recent prior jun 2014. FINDINGS: Patient status post right total knee art hroplasty. No radiographic evidence complications. No joint effusion or soft tissue swelling. Unchanged small amount of heterotopic bone formation proximal t o the upper pole of the patella. IMPRESSION Status post right total knee arthroplast y. No evidence of complication. I have personally reviewed the image(s) and the residents interpretation and agree with the findings, Allison guerrero 07/14/2016 1:22 PM Alessio Quezada MD IMG DX ORDERABLES documented in this encounter Visit Diagnoses Diagnosis Presence of artificial knee joint, right documented in this encounter Care Teams Steamfitter Relationship Specialty Start Date End Date Giorgio Cardona MD PCP - General 10/04/10 04/10/17 [facility] [place] [address] documented as of this encounter
--- OUTSIDE RECORDS SUMMARY | 2022-10-09 16:15 | XMS_ITS | Encounter Summary ---
:1940 Author Organization [facility] [place] [address] Care Team Providers Name Role Phone Arabella Rob MD Primary Care Provider Reason for Referral Surgical (Routine) - Closed Specialty Diagnoses / Procedures Referred By Contact Refer red To Contact Orthopaedics Diagnoses Traumatic osteoarthritis of ankle or foot, left Arabella Rob MD [facility] [place] Orthopaedics [address] [facility] [place], [place] [phone] [place] [address] Referral ID Status Reason Start Date Expiration Date Visits V isits Requested Authorized [id number] Closed Consult, 11/10/2015 11/09/2016 1 1 Test & Treat Reason for Visit Reason Comments Toe Injury 1st digit on left foot Other still having a problem with phlem in his throat Encounter Details Date Type Department Care Team Description 11/10/2015 Office Visit Internal Medicine at Deandre Rob MD Traumatic osteoarthritis of ankle or desmond t, left; [facility] [place] Gout of hand, unspecified ca use, unspecified chronicity, unspecified laterality [facility] DR Pereira [facility] INTERNAL [place], [place] MEDICINE [phone] [place] [address] Social History Tobacco Use Types Packs/Day Years Used Date Smoking Tobacco: Never Smokeless Tobacco: Never Alcohol Use Standard Drinks/Week Comments Yes 0 (1 standard drink = 0.6 oz pure alcoho l) RARE Sex Assigned at Date Recorded Not on file documented as of this encounter Last Filed Vital Signs Vital Sign Reading Time Taken Comments Blood Pressure 135/68 11/10/2015 3:03 PM EST Pulse 54 11/10/2015 3:03 PM EST Temperature 36.3 ??C (97.3 ??F) 11/10/2015 3:03 PM EST Respiratory Rate 18 11/10/2015 3:03 PM EST Oxygen Saturation 99% 11/10/2015 3:03 PM EST Inhaled Oxygen Concentration - - Weight 71 kg (156 lb 9.6 oz) 11/10/2015 3:03 PM EST Height 160.3 cm (5' 3.1) 11/10/2015 3:03 PM EST Body Mass Index 27.65 11/10/2015 3:03 PM EST documented in this encounter Progress Notes Arabella Rob MD - 11/10/2015 3:14 PM EST Established Patient ACUTE Visit History of Presenting Illness: Patient here to followup on acute issues Patient PCP - ARABELLA ROB MD Had a board, hit the foot, then got red. Swollen last night Hurts quite a bit. Unclear if broken. Landed between bones Tries to clip the toenail. No history of gout in the past. Was not there before he hit it. Not like previous ingrown toenail. No fevers or chills. Can walk on it he says. Soaked it last night a bit. Put bag-bom (on cows). Patient reported measures in the past 7 [...] features. 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 [id number]; KRAS negative, EGFR negative --09/2010: CT scan - normal --02/2011: CT scan --09/2011: CT scan - negative annual CT's afterwards Outpatient Encounter Prescriptions as of 11/10/2015 Medication Sig Dispense Refill ??? albuterol (PROVENTIL [...] facility-administered encounter medications on file as of 11/10/2015. History Social History ??? Marital Status: Single [...] rest or with movement Objective Filed Vitals: 11/10/15 1503 BP: 135/68 Pulse: 54 Temp: 36.3 ??C (97.3 ??F) TempSrc: Oral Resp: 18 Height: 160.3 cm (5' 3.1) Weight: 71.033 kg (156 lb 9.6 oz) SpO2: 99% Gen -no acute distress. Alert, responsive and comfortable Extremities - No edema Skin - bruised particularly on the medial aspect of the left mtp. ttp in that area, no discomfort when palpating nail bed. Neurological - grossly normal Gait: grossly intact with normal stride length, speed, and arm swing Assessment/Plan: 1. Traumatic osteoarthritis of ankle or foot, left XR Foot Minimum 3 Views Left (GENERIC) High Sensitivity CRP Sedimentation rate Comprehensive metabolic panel (non-fasting) Uric acid Comprehensive metabolic panel (non-fasting) Uric acid High Sensitivity CRP Sedimentation rate 2. Gout of hand, unspecified cause, unspecified chronicity, unspecified laterality CBC (with Diff) CBC (with Diff) Hemogram Differential, Automated Reviewed xray with the patient which was ordered after the visit - discussed and needs to see orthopedics. Referral placed - ortho will see in 7-10 days I counselled the patient on the above [...] nurses, letter, or myDH. Next Appointment: No Follow-up on file. documented in this encounter Plan of Treatment Upcoming Encounters Date Type Specialty Care Team Description 10/11/2022 Office Visit Dermatology Virgilio Mckeon MD [facility] DR CHRISTIANO HENSON-DERMAT OLOGY [place], [place] [address] (Wo rk) 10/16/2022 Office Visit Otolaryngology Frank Buchanan MD [facility] OTOLARYNGOLOGY Sarah EPT. [place], [place] [address] (Wo rk) 11/29/2022 Appointment Hematology and Oncology 11/29/2022 Office Visit Radiation Oncology Emerald Leyva APRN [facility] RADIATION ONCCESAR GY [place], [place] [address] (Wo rk) Scheduled Referrals Name Type Priority Associated Diagnoses Order S chedule Referral to Outpatient Routine Traumatic Ordered: Orthopaedics Referral osteoarthritis of 11/10/2015 ankle or foot, left documented as of this encounter Procedures Procedure Name Priority Date/Time Associated Diagnosis Comme nts HEMOGRAM Routine 11/10/2015 4:06 Gout of hand, Results for this PM EST unspecified cause, procedure are in unspecified the results chronicity, section. unspecified laterality DIFFERENTIAL, Routine 11/10/2015 4:06 Gout of hand, Results fo r this AUTOMATED PM EST unspecified cause, procedure are in unspecified the results chronicity, section. unspecified laterality SEDIMENTATION RATE Routine 11/10/2015 4:06 Traumatic Result s for this PM EST osteoarthritis of procedure are in ankle or foot, left the resu lts section. CBC (WITH DIFF) Routine 11/10/2015 4:06 Gout of hand, PM EST unspecified cause, unspecified chronicity, unspecified laterality CRP, CARDIAC RISK (HS Routine 11/10/2015 4:06 Traumatic Res ults for this CRP) PM EST osteoarthritis of procedure are in ankle or foot, left the resu lts section. URIC ACID Routine 11/10/2015 4:06 Traumatic Results for this PM EST osteoarthritis of procedure are in ankle or foot, left the resu lts section. COMPREHENSIVE Routine 11/10/2015 4:06 Traumatic Results for this METABOLIC PANEL PM EST osteoarthritis of procedu re are in (NON-FASTING) ankle or foot, left the res ults section. documented in this encounter Results Differential, Automated (11/10/2015 4:06 PM EST) P athologist Signature Neutrophils % 50.8 % CERNER MILLENNIUM Neutr Abs (ANC) 2.52 1.50 - CERNER 6.30 MILLENNIUM x10(3)/mcL Lymphocytes % 33.1 % CERNER MILLENNIUM Lymphocytes Abs 1.6 1.0 - 3.6 CERNER x10(3)/mcL MILLENNIUM Monocytes % 13.5 % CERNER MILLENNIUM Monocyte Abs 0.7 0.2 - 1.0 CERNER x10(3)/mcL MILLENNIUM Eosinophils % 1.8 % CERNER MILLENNIUM Eosinophils Abs 0.1 0.0 - 0.5 CERNER x10(3)/mcL MILLENNIUM Basophils % 0.6 % CERNER MILLENNIUM Basophils Abs 0.0 0.0 - 0.2 CERNER x10(3)/mcL MILLENNIUM Immature Gran % 0.20 % CERNER MILLENNIUM Comment: Immature granulocytes(IG's)percentage an d absolute count will include metamyelocytes, myelocytes, and promyelo cytes. Blood smears from CBCs yielding IG's will be scanned manually for concor dance. If this scan disagrees with the automated IG or if promyelocytes are not ed, a manual differential will be performed. Becki Gran Abs 0.01 0.00 - 0.05 x10(3)/mcL CER NER MILLENNIUM Specimen Anatomical Collection Method Collection Time Receive d Time (Source) Location / / Volume Laterality Blood specimen 11/10/2015 4:06 PM 015 4:13 (specimen) EST PM EST Resulting Agency Comment Spec In Lab Arabella Rob MD HEMATOLOGY ORDERABLES Performing Organization Address City/[facility]/[place] [address] CERNER MILLENNIUM (ABNORMAL) Hemogram (11/10/2015 4:06 PM EST) P athologist Signature WBC 5.0 4.0 - 10.0 CERNER x10(3)/mcL MILLENNIUM RBC 4.29 (L) 4.63 - CERNER 6.08 MILLENNIUM x10(6)/mcL Hemoglobin 13.9 13.7 - CERNER 17.5 gm/dL MILLENNIUM Hematocrit 41.3 40.0 - CERNER 51.0 % MILLENNIUM MCV 96.3 (H) 79.0 - CERNER 92.0 fL MILLENNIUM MCH 32.4 (H) 25.6 - CERNER 32.2 pg MILLENNIUM MCHC 33.7 32.0 - CERNER 36.5 gm/dL MILLENNIUM Platelets 166 145 - 370 CERNER x10(3)/mcL MILLENNIUM RDWSD 48.2 (H) 35.0 - CERNER 46.0 fL MILLENNIUM RDWCV 13.6 10.9 - CERNER 14.4 % MILLENNIUM MPV 11.3 9.0 - 12.0 CERNER fL MILLENNIUM Specimen Anatomical Collection Method Collection Time Receive d Time (Source) Location / / Volume Laterality Blood specimen 11/10/2015 4:06 PM 015 4:13 (specimen) EST PM EST Resulting Agency Comment Spec In Lab Arabella Rob MD HEMATOLOGY ORDERABLES Performing Organization Address City/[facility]/ZIP Code Phon e Number [address] CERNER MILLENNIUM Uric acid (11/10/2015 4:06 PM EST) P athologist Signature Uric Acid 4.8 3.5 - 8.5 CERNER mg/dL MILLENNIUM Specimen Anatomical Collection Method Collection Time Receive d Time (Source) Location / / Volume Laterality Blood specimen 11/10/2015 4:06 PM 015 4:13 (specimen) EST PM EST Resulting Agency Comment Spec In Lab Arabella Rob MD CHEMISTRY ORDERABLES Performing Organization Address City/State/[place] [address] CERNER MILLENNIUM (ABNORMAL) Comprehensive metabolic panel (non-fasting) (11/10/2015 4:06 PM EST) athologist Signature Glucose Lvl 91 65 - 199 CERNER mg/dL MILLENNIUM Comment: Diabetes: >=200 mg/dL plus symp toms BUN 22 (H) 10 - 20 mg/dL CERNER MILLENNIU M Creatinine 1.09 0.80 - 1.50 mg/dL CERNER MILL ENNIUM Comment: Please note that the pediatric reference intervals supplied above were not validated at [facility]. Results from pediatri c patients should be interpreted in conjunction to the patient's age, height and muscle mass. Sodium 140 135 - 145 mmol/L CERNER PATRICK NIUM Potassium 4.3 3.5 - 5.0 mmol/L CERNER PATRICK NIUM Comment: Please note: ??Patients with WBC >100,00 0 may have falsely elevated Potassium levels. ??For accurate Potassium quantif ication in these patients send serum separator tube (gold top) for subsequent determinations. ??Contact the Clinical Chemistry Laboratory if there are any qu estions. Chloride 100 98 - 107 mmol/L CERNER MILLENN IUM CO2 28 22 - 31 mmol/L CERNER MILLENNI UM Anion Gap 12 5 - 15 mmol/L CERNER MILLENNIU M Calcium 8.9 8.5 - 10.5 mg/dL CERNER PATRICK NIUM Total Protein 6.7 6.1 - 8.0 gm/dL CERNER MIL LENNIUM Albumin 4.1 3.2 - 5.2 gm/dL CERNER MILLENN IUM AST 17 0 - 39 unit/L CERNER MILLENNIU M ALT 10 0 - 55 unit/L CERNER MILLENNIU M Alk Phos 65 40 - 120 unit/L CERNER MILLENN IUM Total Bilirubin 0.6 0.2 - 1.3 mg/dL CERNER M ILLENNIUM Bili, Direct 0.1 0.0 - 0.3 mg/dL CERNER MILL ENNIUM Estimated GFR >60 >=60 CERNER MILLENNIU M Comment: This estimated GFR (eGFR) value was [...] the following links into your internet browser. http://Standardized Safety/DHnkdep http://Standardized Safety/DHMCnkf Specimen Anatomical Collection Method Collection Time Receive d Time (Source) Location / / Volume Laterality Blood specimen 11/10/2015 4:06 PM 015 4:13 (specimen) EST PM EST Resulting Agency Comment Spec In Lab Arabella Rob MD CHEMISTRY ORDERABLES Performing Organization Address City/[facility] Phon e Number [address] CERNER MILLENNIUM Sedimentation rate (11/10/2015 4:06 PM EST) P athologist Signature Sed Rate 11 0 - 15 CERNER mm/hr MILLENNIUM Specimen Anatomical Collection Method Collection Time Receive d Time (Source) Location / / Volume Laterality Blood specimen 11/10/2015 4:06 PM 015 4:13 (specimen) EST PM EST Resulting Agency Comment Spec In Lab Arabella Rob MD HEMATOLOGY ORDERABLES Performing Organization Address City/[facility] Phon e Number [address] CERNER MILLENNIUM High Sensitivity CRP (11/10/2015 4:06 PM EST) P athologist Signature CRP High Sens 1.0 mg/L CERNER MILLENNIUM Comment: Interpretations: 1) For accurate cardiac risk assessment, the average of 2 values >2 weeks apart should be obtained (ref 1&2). A value >1 0 mg/L indicates an inflammatory condition, concentrations >10 mg/L shoul d not be used for cardiac risk assessment. ?<1.0 mg/L: low risk ?1.0 - 3.0 mg/L: moderate risk ?>3.0 mg/L: high risk groups for fu ture cardiovascular events 2) The general reference range of appare ntly healthy individuals using this test is <5.0 mg/L (derived from the test package insert) References: 1. Chuyita SHRESTHA et. al. ??AHA/CDC Scientif ic Statement: Markers of Inflammation and Cardiovascular Disease. ??Circulatio n 2003; 107:499-511 2. Ridker PM. ??Clinical applications of C-reactive protein for cardiovascular disease detection and prevention. ??Circ ulation 2003; 107:363-369 Specimen Anatomical Collection Method Collection Time Receive d Time (Source) Location / / Volume Laterality Blood specimen 11/10/2015 4:06 PM 015 4:13 (specimen) EST PM EST Resulting Agency Comment Spec In Lab Arabella Rob MD CHEMISTRY ORDERABLES Performing Organization Address City/State/[place] [address] [facility] XR Foot Minimum 3 Views Left (GENERIC) (11/10/2015 3:45 PM EST) Anatomical Region Laterality Modality Foot Left Digital Radiography Specimen (Source) Anatomical Location Collection Method / Collectio n Time Received Time / Laterality Volume Impressions 11/10/2015 4:38 PM EST IMPRESSION: Lucency in the first metatarsal head is favored to be degenerative related to bunion formation. Cannot exclude gout or nondisplaced fracture. Follow-up films could be performed if there is high clin ical concern for fracture. 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 I have personally reviewed the image(s) and the residents interpretation and agree with the findings, SINDHU Larios at 11/10/2015 4:38 PM Narrative 11/10/2015 4:38 PM EST EXAMINATION: XR FOOT MINIMUM 3 VIEWS LEFT CLINICAL HISTORY: ? fracture of 1st MTP s/p trauma TECHNIQUE: 3 views of the right foot COMPARISON: None FINDINGS: There is a lucency in the medial cortex of the fifth metatarsal head. The margins are corticated.. No other defini te acute fractures are identified. Normal alignment of the Lisfranc joint. Mild pes planus is noted. There is joint space narrowing at the fi rst MTP joint with subchondral sclerosis and small marginal osteophytes. Procedure Note Sindhu Joshi MD - 11/10/2015Format ting of this note might be different from the original. EXAMINATION: XR FOOT MINIMUM 3 VIEWS LEF T CLINICAL HISTORY: ? fracture of 1st MTP s/p trauma TECHNIQUE: 3 views of the right foot COMPARISON: None FINDINGS: There is a lucency in the medial cortex of the fifth metatarsal head. The margins are corticated.. No other defini te acute fractures are identified. Normal alignment of the Lisfranc joint. Mild pes planus is noted. There is joint space narrowing at the fi rst MTP joint with subchondral sclerosis and small marginal osteophytes. IMPRESSION IMPRESSION: Lucency in the first metatarsal head is favored to be degenerative related to bunion formation. Cannot exclude gout or nondisplaced fracture. Follow-up films could be performed if there is high clin ical concern for fracture. 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
--- OUTSIDE RECORDS SUMMARY | 2022-10-09 16:15 | XMS_ITS | Encounter Summary ---
:1940 [place] [address] Care Team Providers Name Role Phone Giorgio Cardona MD Primary Care Provider Encounter Details Date Type Department Care Team Description 03/22/2017 Laboratory Appointment Lab 3L [facility] [place] [address] Social History Tobacco Use Types Packs/Day [...] MD [facility] DR CHRISTIANO HENSON-DERMAT OLOGY [place], [place] [address] (Wo rk) 10/16/2022 Office Visit Otolaryngology Frank Buchanan MD [facility] OTOLARYNGOLOGY Sarah EPT. [place], [place] [address] (Wo rk) 11/29/2022 Appointment Hematology and Oncology 11/29/2022 Office Visit Radiation Oncology Autumn, Emerald M, HYDRAULIC RUBBISH COMPACTOR MECH[employer]IC [facility] DR RYNE [place], [place] [address] (Wo rk) documented as of this encounter Procedures Procedure Name Priority Date/Time Associated Diagnosis Comme nts CMP W/FASTING Routine 03/22/2017 7:44 AM Rectal bleed Results for this GLUCOSE EDT procedure are i n the results section. HEMOGRAM Routine 03/22/2017 7:44 AM Rectal bleed Results f or this EDT procedure are i n the results section. DIFFERENTIAL, Routine 03/22/2017 7:44 AM Rectal bleed Results for this AUTOMATED EDT procedure are i n the results section. IRON AND TIBC Routine 03/22/2017 7:44 AM Rectal bleed Results for this EDT procedure are i n the results section. CBC (WITH DIFF) Routine 03/22/2017 7:44 AM Rectal bleed EDT FERRITIN Routine 03/22/2017 7:44 AM Rectal bleed Results f or this EDT procedure are i n the results section. documented in this encounter Results Differential, Automated (03/22/2017 7:44 AM EDT) athologist Signature Neutrophils % 54.7 % [facility]ORY Neutr Abs (ANC) 2.19 1.70 - [facility] 6.10 [facility] x10(3)/[facility] LABORATORY Lymphocytes % 26.7 % [facility] Lymphocytes Abs 1.1 0.9 - 3.2 [facility] x10(3)/[facility] LABORATORY Monocytes % 14.2 % [facility] Monocyte Abs 0.6 0.3 - 0.9 [facility] x10(3)/[facility] LABORATORY Eosinophils % 3.7 % [facility] Eosinophils Abs 0.2 0.0 - 0.4 [facility] x10(3)/[facility] LABORATORY Basophils % 0.5 % [facility] Basophils Abs 0.0 0.0 - 0.1 [facility] x10(3)/[facility] LABORATORY Immature Gran % 0.20 % [facility] Comment: Immature granulocytes(IG's)percentage an d absolute count will include metamyelocytes, myelocytes, and promyelo cytes. Blood smears from CBCs yielding IG's will be scanned manually for concor dance. If this scan disagrees with the automated IG or if promyelocytes are not ed, a manual differential will be performed. Becki Gran Abs 0.01 0.00 - 0.04 x10(3)/[facility] LABORATORY Specimen Anatomical Collection Method Collection Time Receive d Time (Source) Location / / Volume Laterality Blood specimen 03/22/2017 7:44 AM 017 7:46 (specimen) EDT AM EDT Resulting Agency Comment Spec In Lab Giorgio Cardona MD HEMATOLOGY ORDERABLES Performing Organization Address City/State/ZIP Code Phon e Number [place] [phone] (ABNORMAL) Hemogram (03/22/2017 7:44 AM EDT) Analysis Performed At Patho logist Time Signature WBC 4.0 4.0 - 9.5 [facility] x10(3)/[facility] LABORATORY RBC 4.49 (L) 4.58 - [facility] x10(6)/[facility] LABORATORY Hemoglobin 14.6 13.7 - [facility] 16.[facility] gm/dL [facility] Hematocrit 43.1 40.5 - [facility] 48.5 % [facility] MCV 96.0 (H) 82.9 - [facility] 93.1 [facility] LABORATORY MCH 32.5 (H) 27.5 - [facility] 32.1 pg [facility] MCHC 33.9 32.0 - [facility] 35.7 gm/dL [facility] Platelets 169 145 - 357 [facility] x10(3)/[facility] LABORATORY RDWSD 47.5 (H) 36.0 - [facility] 45.0 [facility] LABORATORY RDWCV 13.3 11.4 - [facility] 13.8 % [facility] LABORATORY MPV 10.8 7.6 - 12.9 [facility] LABORATORY nRBC % Auto 0.0 % [facility] nRBC Abs Auto 0.000 0.000 - [facility] 0.000 [facility] x10(3)/[facility] LABORATORY Specimen Anatomical Collection Method Collection Time Receive d Time (Source) Location / / Volume Laterality Blood specimen 03/22/2017 7:44 AM 017 7:46 (specimen) EDT AM EDT Resulting Agency Comment Spec In Lab Giorgio Cardona MD HEMATOLOGY ORDERABLES Performing Organization Address City/State/ZIP [place] [address] (ABNORMAL) Iron and TIBC (03/22/2017 7:44 AM EDT) Analysis Performed At Patho logist Time Signature Iron 80 45 - 160 [facility] mcg/dL [facility] TIBC 222 (L) 250 - 450 [facility] m[facility]/dL [facility] Iron Saturation 36 20 - 50 % [facility] Specimen Anatomical Collection Method Collection Time Receive d Time (Source) Location / / Volume Laterality Blood specimen 03/22/2017 7:44 AM 017 7:46 (specimen) EDT AM EDT Resulting Agency Comment Spec In Lab Giorgio Cardona MD CHEMISTRY ORDERABLES Performing Organization Address City/[facility]/ZIP Code Phon e Number [address] Ferritin (03/22/2017 7:44 AM EDT) athologist Signature Ferritin 107 30 - 400 [facility] ng/mL [facility] Comment: Pediatric reference ranges not verified at [facility], interpret with caution. Reference ranges for females greater reddy n 50 years of age approach values for men, i.e., 30-400 ng/mL. Specimen Anatomical Collection Method Collection Time Receive d Time (Source) Location / / Volume Laterality Blood specimen 03/22/2017 7:44 AM 017 7:46 (specimen) EDT AM EDT Resulting Agency Comment Spec In Lab Giorgio Cardona MD CHEMISTRY ORDERABLES Performing Organization Address City/[facility]/ZIP [place] [address] (ABNORMAL) CMP w/fasting Glucose (03/22/2017 7:44 AM EDT) athologist Signature Glucose 121 (H) 65 - 99 [facility] Fasting mg/dL [facility] Comment: ?Fasting* Glucose Interpretive C riteria [...] of Diabetes Mellitus, Position Statement from the [place] [employer]. ??Diabete s Care, Volume 33, Supplement 1, Nov 2009 BUN 19 10 - 20 mg/dL [facility] Creatinine 1.15 0.80 - 1.50 mg/dL [facility] Comment: Please note that the pediatric reference intervals supplied above were not validated at [facility]. Results from pediatri c patients should be interpreted in conjunction to the patient's age, height and muscle mass. Sodium 141 135 - 145 mmol/L [facility] Potassium 4.7 3.5 - 5.0 mmol/L [facility] Comment: Please note: ??Patients with WBC >100,00 0 may have falsely elevated Potassium levels. ??For accurate Potassium quantif ication in these patients send serum separator tube (gold top) for subsequent determinations. ??Contact the Clinical Chemistry Laboratory if there are any qu estions. Chloride 100 98 - 107 mmol/L [facility] CO2 28 22 - 31 mmol/L [facility] Anion Gap 13 5 - 15 mmol/L [facility] Calcium 9.0 8.5 - 10.5 mg/dL [facility] Total Protein 7.1 6.1 - 8.0 gm/dL [facility]OR[facility] Albumin 3.9 3.2 - 5.2 gm/dL [facility] AST 16 0 - 39 unit/L [facility] ALT 10 0 - 55 unit/L [facility] Alk Phos 75 40 - 120 unit/L [facility] Total Bilirubin 0.5 0.2 - 1.3 mg/dL [facility] Bili, Direct 0.1 0.0 - 0.3 mg/dL [facility] Estimated GFR >60 >=60 [facility] Comment: This estimated GFR [...] the following links into your internet browser. [email or web address] Specimen Anatomical Collection Method Collection Time Receive d Time (Source) Location / / Volume Laterality Blood specimen 03/22/2017 7:44 AM 017 7:46 (specimen) EDT AM EDT Resulting Agency Comment Spec In Lab Giorgio Cardona MD CHEMISTRY ORDERABLES Performing Organization Address City/State/[place] [address] documented in this encounter Visit Diagnoses Diagnosis Rectal bleed Hemorrhage of rectum and anus documented in this encounter Care Teams Applications Systems Engineer Relationship Specialty Start Date End Date Giorgio Cardona MD PCP - General 10/04/10 04/10/17 [facility] [place] [address] documented as of this encounter
--- OUTSIDE RECORDS SUMMARY | 2022-10-09 16:15 | XMS_ITS | Encounter Summary ---
:1940 Author Organization [facility] [place] [address] Care Team Providers Name Role Phone Giorgio Cardona MD Primary Care Provider Encounter Details Date Type Department Care Team Description 03/12/2017 Orders Only Internal Medicine at [facility] Lorene Urias, [place] [address] Social History Tobacco Use Types Packs/Day [...] 10/11/2022 Office Visit Dermatology Virgilio Mckeon MD [facility] DR CHRISTIANO HENSON-DERMAT OLOGY [place], [place] [address] (Wo sriram) 10/16/2022 Office Visit Otolaryngology Frank Buchanan MD [facility] OTOLARYNGOLOGY Sarah T. [place], [place] [address] (Wo rk) 11/29/2022 Appointment Hematology and Oncology 11/29/2022 Office Visit Radiation Oncology Emerald Leyva APRN [facility] RADIATION ONCCESAR [place] [address] (Wo rk) documented as of this encounter Results (ABNORMAL) Iron and TIBC (03/22/2017 7:44 AM EDT) Analysis Performed At Patho logist Time Signature Iron 80 45 - 160 [facility] mcg/dL [facility] LABORATORY TIBC 222 (L) 250 - 450 [facility] m[facility]/dL [facility] LABORATORY Iron Saturation 36 20 - 50 % [facility] LABORATORY Specimen Anatomical Collection Method Collection Time Receive d Time (Source) Location / / Volume Laterality Blood specimen 03/22/2017 7:44 AM 017 7:46 (specimen) EDT AM EDT Resulting Agency Comment Spec In Lab Giorgio Cardona MD CHEMISTRY ORDERABLES Performing Organization Address City/[facility]/[place] [address] Ferritin (03/22/2017 7:44 AM EDT) athologist Signature Ferritin 107 30 - 400 [facility] ng/mL [facility]ORY Comment: Pediatric reference ranges not verified at [facility], interpret with caution. Reference ranges for females greater reddy n 50 years of age approach values for men, i.e., 30-400 ng/mL. Specimen Anatomical Collection Method Collection Time Receive d Time (Source) Location / / Volume Laterality Blood specimen 03/22/2017 7:44 AM 017 7:46 (specimen) EDT AM EDT Resulting Agency Comment Spec In Lab Giorgio Cardona MD CHEMISTRY ORDERABLES Performing Organization Address City/[facility] [place] [address] (ABNORMAL) CMP w/fasting Glucose (03/22/2017 7:44 AM EDT) athologist Signature Glucose 121 (H) 65 - 99 [facility] Fasting mg/dL [facility] Comment: ?Fasting* Glucose Interpretive C riteria [...] of Diabetes Mellitus, Position Statement from the [place] [employer]. ??Diabete s Care, Volume 33, Supplement 1, Nov 2009 BUN 19 10 - 20 mg/dL [facility] Creatinine 1.15 0.80 - 1.50 mg/dL [facility] Comment: Please note that the pediatric reference intervals supplied above were not validated at [facility]. Results from pediatri c patients should be interpreted in conjunction to the patient's age, height and muscle mass. Sodium 141 135 - 145 mmol/L [facility] Potassium 4.7 3.5 - 5.0 mmol/L [facility] Comment: Please note: ??Patients with WBC >100,00 0 may have falsely elevated Potassium levels. ??For accurate Potassium quantif ication in these patients send serum separator tube (gold top) for subsequent determinations. ??Contact the Clinical Chemistry Laboratory if there are any qu estions. Chloride 100 98 - 107 mmol/L [facility] CO2 28 22 - 31 mmol/L [facility] Anion Gap 13 5 - 15 mmol/L [facility] Calcium 9.0 8.5 - 10.5 mg/dL [facility] Total Protein 7.1 6.1 - 8.0 gm/dL [facility] Albumin 3.9 3.2 - 5.2 gm/dL [facility] LABOR[facility]ORY AST 16 0 - 39 unit/L [facility] ALT 10 0 - 55 unit/L [facility] Alk Phos 75 40 - 120 unit/L [facility] LAB[facility]ORY Total Bilirubin 0.5 0.2 - 1.3 mg/dL [facility] Bili, Direct 0.1 0.0 - 0.3 mg/dL [facility] Estimated GFR >60 >=60 [facility]ORY Comment: This estimated GFR (eGFR) [...] the following links into your internet browser. [email or web address] Specimen Anatomical Collection Method Collection Time Receive d Time (Source) Location / / Volume Laterality Blood specimen 03/22/2017 7:44 AM 017 7:46 (specimen) EDT AM EDT Resulting Agency Comment Spec In Lab Giorgio Cardona MD CHEMISTRY ORDERABLES Performing Organization Address City/State/[place] [address] documented in this encounter Visit Diagnoses Diagnosis Rectal bleed Hemorrhage of rectum and anus documented in this encounter Care Teams Pattern Chain Maker Supervisor Relationship Specialty Start Date End Date Giorgio Cardona MD PCP - General 10/04/10 04/10/17 [facility] GENERAL [place] [address] documented as of this encounter
--- OUTSIDE RECORDS SUMMARY | 2022-10-09 16:15 | XMS_ITS | Encounter Summary ---
:1940 Author Organization [facility] [place] [address] Care Team Providers Name Role Phone Giorgio Cardona MD Primary Care Provider Reason for Visit Reason Comments Aftercare Of Tjr sp right tka dos 06/19/12 Encounter Details Date Type Department Care Team Description 07/14/2016 Office Visit [facility] [place] [facility] Alessio Quezada H/O total knee [facility] MD Lexy replacement[place] [address] [place] [address] ORTHOPAEDIC SURGERY [place], [place] [address] Social History Tobacco Use Types Packs/Day Years Used Date Smoking Tobacco: Never Smokeless Tobacco: Never Alcohol Use Standard Drinks/Week Comments Yes 0 (1 standard drink = 0.6 oz pure alcoho l) RARE Sex Assigned at Date Recorded Not on file documented as of this encounter Last Filed Vital Signs Vital Sign Reading Time Taken Comments Blood Pressure 154/62 07/14/2016 8:56 AM EDT Pulse 52 07/14/2016 8:56 AM EDT Temperature - - Respiratory Rate - - Oxygen Saturation - - Inhaled Oxygen Concentration - - Weight 68 kg (150 lb) 07/14/2016 8:56 AM EDT stated Height 167.6 cm (5' 6) 07/14/2016 8:56 AM EDT stated Body Mass Index 24.21 07/14/2016 8:56 AM EDT documented in this encounter Progress Notes Alessio Quezada - 07/14/2016 9:00 AM EDT Mr. Mina is a 76-year-old gentleman who is about 5-1/2 years status post a right total knee replacement, specifically a posterior cruciate substituting fixed platform cemented knee. He is delighted with the results of the surgery. 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 In any event, on his physical examination today he can rise from a chair without the use of his arms. He has a perfectly normal gait. While seated, he has full extension, at least 130 degrees of flexion. I could not elicit any areas of tenderness. There is no increased warmth, erythema, fenestration or any masses. On physical examination the patella tracks well. His x-rays continue to show satisfactory position of the implant, nothing to suggest stress shielding, implant failure, loosening, or malposition. ASSESSMENT AND PLAN: Satisfactory course. Admonitions about good foot care and dental prophylaxis and avoiding squatting was emphasized. I think under the circumstances we will see him in 2 years' time for followup with films earlier. documented in this encounter Plan of Treatment Upcoming Encounters Date Type Specialty Care Team Description 10/11/2022 Office Visit Dermatology Virgilio Mckeon MD [facility] DR CHRISTIANO HENSON-DERMAT OLOGY [place], [place] [address] (Wo sriram) 10/16/2022 Office Visit Otolaryngology Frank Buchanan MD [facility] OTOLARYNGOLOGY Sarah COWAN. [place], [place] [address] (Wo sriram) 11/29/2022 Appointment Hematology and Oncology 11/29/2022 Office Visit Radiation Oncology Emerald Leyva APRN [facility] RADIATION ONCOLO [place], [place] [address] (Wo rk) documented as of this encounter Visit Diagnoses Diagnosis H/O total knee replacement, right documented in this encounter Care Teams Deliverer Outside Relationship Specialty Start Date End Date Giorgio Cardona MD PCP - General 10/04/10 04/10/17 [facility] GENERAL [place] [address] documented as of this encounter
--- OUTSIDE RECORDS SUMMARY | 2022-10-09 16:15 | XMS_ITS | Encounter Summary ---
:1940 Author Organization [facility] [place] [address] Care Team Providers Name Role Phone Giorgio Cardona MD Primary Care Provider Reason for Referral Diagnostic Test (Routine) - Closed Specialty Diagnoses / Procedures Referred By Contact Refer red To Contact Radiology Diagnoses Malignant neoplasm of lung, unspecified laterality, unspecified part of lung Dexter Cote [facility] Rad Ct Scan Procedures CT Chest wo Contrast (Generic) [facility] [place] [address] [place] [address] Referral ID Status Reason Start Date Expiration Date Visits V isits Requested Authorized [id number] Closed Specialty 08/16/2016 08/16/2017 1 1 Service Requested Encounter Details Date Type Department Care Team Description 08/16/2016 Orders Only Thoracic Surgery at Sy[facility] Cote neoplasm of [facility] Dexter Pugh MD lung, unspecified [facility] [place] [address] THORACIC SURGERY lung [phone] [place], [place] [address] Social History Tobacco Use Types [...] Visit Dermatology Virgilio Mckeon MD [facility] DR CHRISTIANO HENSON-DERMAT OLOGY [place], [place] [address] (Wo rk) 10/16/2022 Office Visit Otolaryngology Frank Buchanan MD [facility] OTOLARYNGOLOGY D EPT. [place], [place] 037 (Wo rk) 11/29/2022 Appointment Hematology and Oncology 11/29/2022 Office Visit Radiation Oncology Emerald Leyva APRN [facility] RADIATION ONCOLO GY [place], [place] [address] (Wo rk) documented as of this encounter Results CT Chest wo Contrast (Generic) (09/04/2016 8:39 AM EDT) Anatomical Region Laterality Modality Chest Computed Tomography Specimen (Source) Anatomical Location Collection Method / Collectio n Time Received Time / Laterality Volume Impressions 09/04/2016 9:11 AM EDT Impression: No evidence of recurrent or metastatic d isease or new primary lung cancer. No interval change. Narrative 09/04/2016 9:11 AM EDT EXAMINATION: CT CHEST WO CONTRAST (GENERIC) CLINICAL HISTORY: s/p lobectomy, h/o lizz g cancer, eval for recurrence TECHNIQUE: Helical CT of the chest was p erformed without contrast. Multiplanar reformatted images were reviewed. COMPARISON: 09/28/2015 ? FINDINGS: Lungs and airways: No interval change. S tatus post RIGHT lower lobectomy. No new pulmonary nodules. Airways patent. Pleura and pericardium: No interval treviño ge, mild residual RIGHT pleural thickening. No pleural or pericardial ef fusions. Heart and vasculature: Heart size normal . Severe coronary artery calcification. Mediastinum and hilar structures: No lym phadenopathy Allowing for the lack of intravenous con trast, the portions of the abdominal organs included in the field of view are unremarkable. Osseous structure: No focal lytic or scl erotic osseous lesion. ? Procedure Note Kaushik Roberts MD - 09/04/2016Formatt ing of this note might be different from the original. EXAMINATION: CT CHEST WO CONTRAST (GENER IC) CLINICAL HISTORY: s/p lobectomy, h/o lizz g cancer, eval for recurrence TECHNIQUE: Helical CT of the chest was p erformed without contrast. Multiplanar reformatted images were reviewed. COMPARISON: 09/28/2015 ? FINDINGS: Lungs and airways: No interval change. S tatus post RIGHT lower lobectomy. No new pulmonary nodules. Airways patent. Pleura and pericardium: No interval treviño ge, mild residual RIGHT pleural thickening. No pleural or pericardial ef fusions. Heart and vasculature: Heart size normal . Severe coronary artery calcification. Mediastinum and hilar structures: No lym phadenopathy Allowing for the lack of intravenous con trast, the portions of the abdominal organs included in the field of view are unremarkable. Osseous structure: No focal lytic or scl erotic osseous lesion. ? IMPRESSION Impression: No evidence of recurrent or metastatic d isease or new primary lung cancer. No interval change. Dexter Cote MD IMG CT ORDERABLES documented in this encounter Visit Diagnoses Diagnosis Malignant neoplasm of lung, unspecified laterality, unspecified part of lung Malignant neoplasm of lung, unspecified laterality, unspecified part of lung documented in this encounter Care Teams Geospatial Program Management Officer Relationship Specialty Start Date End Date Giorgio Cardona MD PCP - General 10/04/10 04/10/17 [facility] GENERAL [place] [address] documented as of this encounter
--- OUTSIDE RECORDS SUMMARY | 2022-10-09 16:15 | XMS_ITS | Encounter Summary ---
:1940 Author Organization [place] [address] Care Team Providers Name Role Phone Giorgio Cardona MD Primary Care Provider Reason for Visit Reason Comments Radiation Follow-up prostate cancer Encounter Details Date Type Department Care Team Description 04/27/2016 Office Visit Radiation Oncology at [place], Bill Herbert neoplasm of 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 [address] [place], [place] RADIATION ONCOL OGY [address] [place], [place] [phone] (Wo rk) Social History Tobacco Use Types Packs/Day Years Used Date Smoking Tobacco: Never Smokeless Tobacco: Never Alcohol Use Standard Drinks/Week Comments Yes 0 (1 standard drink = 0.6 oz pure alcoho l) RARE Sex Assigned at Date Recorded Not on file documented as of this encounter Last Filed Vital Signs Vital Sign Reading Time Taken Comments Blood Pressure 110/58 04/27/2016 11:29 AM EDT Pulse 61 04/27/2016 11:29 AM EDT Temperature 36.2 ??C (97.2 ??F) 04/27/2016 11:29 AM EDT Respiratory Rate - - Oxygen Saturation 100% 04/27/2016 11:29 AM EDT Inhaled Oxygen Concentration - - Weight 69.6 kg (153 lb 8 oz) 04/27/2016 11:29 AM EDT Height - - Body Mass Index 26.14 04/06/2016 12:53 PM EDT documented in this encounter Patient Instructions Patient InstructionsPaBecka richard APRN - 04/27/2016 11:27 AM EDT date PSA Testosterone 04/06/2016 0.20 03/17/2015 0.3 04/07/2014 0.30 09/29/2013 [...] 4.4 09/2004 3.8 Vitals Office Visit from 04/27/2016 in [facility] Radiation Oncology Weight - Scale 69.6 kg (153 lb 8 oz) Temp 36.2 ??C (97.2 ??F) Temp Source Oral Heart Rate 61 Heart Rate Source NIBP BP 110/58 BP Location Left arm Patient Position Sitting SpO2 100 % documented in this encounter Progress Notes Becka Dean APRN - 04/27/2016 8:40 AM EDT Patient ID: Alfredito Mina is a 75 y.o. male.who is in radiation oncology clinic today for regular followup. He was treated with external beam radiation therapy for prostate cancer and completed treatment 04/12/2007. He was enrolled in a clinical trial--RTOG 0126 arm 2. He was last seen in radiation oncology 04/08/2015. HPI Mr. Mina is a male who [...] were taken and the specimen reported in [facility] pathology under session #[id number] prostate: The right lobe apex, mid, and base negative; the left apex was 3 + 3 in 40% of one core; the left mid was 3 + 4 in 50% of one core; and the left base showed a 3 + 4 in 5% in one of two cores. This information was reviewed at [facility] on October 19, 2006, and the report paralleled that given by the [facility] institution. The [facility] session number was [id number]. The patient was then seen by Dr. Mixon on December 26, 2005, and after review, his note indicates an IPS of 9/35. He had no difficulties with erectile dysfunction. His physical examination revealed a 30-gram prostate without nodularity, and the gland was smooth. With a PSA indicated of 5.4, a Bellingham score of 4 + 3 = 7/10, [...] and Biopsy 09/19/2006 Volume in cc 56 Bellingham grade/score a+b=c 4+3=7 Total Cores 12 cores [...] history: : 1. Adenocarcinoma of the prostate. [id number], Bellingham 4+3, left lobe involved. OLGA (-), PSA [...] 05/20/2012. --08/11/2014--No evidence of recurrence. --11/26/2014--chest XR--negative --- Skin cancer--squamous cell--07/2013 ---skin cancer basal [...] cell carcinoma C44.91 ??? Primary insomnia F51.01 Past Surgical History Procedure Laterality Date ??? [...] INGUINAL, RECURRENT performed by NOREEN BOWIE at [facility] MAIN OR ??? Pro thyroidectomy=substernal, transcerv 11/30/2011 THYROIDECTOMY, INCL. SUBSTERNAL, CERVICAL APPROACH performed by FRANK MAC at [facility] MAIN OR ??? Prg somatosensory test, any/all per. nerves, trunk or head 11/30/2011 FACIAL NERVE MONITORING, SETUP performed by FRANK MAC at [facility] MAIN OR ??? Upper gi endoscopy, exam 01/29/2012 UPPER GI ENDOSCOPY performed by VICKI SON at [facility] ENDOSCOPY ??? Lung cancer surgery Partial removal of R lung ??? Pro total knee arthroplasty 06/19/2012 @TOTAL KNEE ARTHROPLASTY performed by ADAM CARRERO at [facility] MAIN OR ??? Pro colonoscopy, remv lesn, snare 01/06/2013 COLONOSCOPY, POLYPECTOMY, REMOVAL LESION BY SNARE performed by Josh Jeffery MD at [facility] ENDOSCOPY ??? Rotator cuff repair 2013 Allergies Allergen Reactions ??? Cyclobenzaprine Urinary retention, xerostomia ??? Lactose Other (See Comments) Sneezing Current Outpatient Prescriptions on File Prior to Visit Medication Sig Dispense Refill ??? albuterol (PROVENTIL HFA;VENTOLIN HFA;PROAIR) 90 mcg/actuation HFA Aerosol Inhaler Inhale 2 puffs into the lungs every 4 hours as needed for Wheezing. Use with spacer 1 Inhaler 1 ??? inhalational spacing device (AEROCHAMBER MV) Spacer 1 Device by [facility].(Non- Drug; Combo Route) route every 4 hours as needed. 1 each 2 ??? omeprazole (PRILOSEC) 20 mg Capsule, Delayed [...] on file prior to visit. Family History: Mother 2012 at age 105--she had asthma, osteoporosis. Father at age 55, smoked too much, heart problems. Social History: Beat[place]. 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 Single. Five children and sevengrandkids. One daughter with viral respiratory problems. 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 Has been spending vora in [place]. Used to play basketball. No alcohol. Advance Directives: Completed. See advance care planning note. Interim History: Mr Mina reports that he is doing well at this time. Since he was seen in radiation oncology a year ago he has been well with no new health issues. 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 He did spend the winter in [place] where he has a home. In that community he is near a rail trail and he biked every day. He tolerated this activity well. He is again painting and plans to resume work with his band.He does report some stress with his brother related to settlement of his mother's estate as well as some ongoing financial issues. He denies urinary problems at this time. His IPSS score is 1. He is reports being delighted with his overall urinary status. He does continue with the terazosin and has found that if he misses taking it that he has increased discomfort with voiding. He has no dysuria, no hematuria and no incontinence. International Prostate Symptom Score Total Score__1_ 0 1 2 3 4 5 Not at all Less than one time in five Less than half of the time About half of the time More than half of the time Almost always Incomplete emptying X frequency X intermittency X urgency X Weak stream X Flow resistance X Not at all Every eight hours Every four hours Every three hours Every 2 hours Every hour nocturia X His bowels have been moving regularly one or twice a day. He prevents constipation with the use of twice a day miralax which has been very effective. He denies hematochezia, melena, constipation and diarrhea. He denies abdominal discomfort. His BERNADINE score currently is 9 He does not want any intervention for this He reports that his respiratory symptoms are stable. He denies shortness of breath, no dyspnea, + occ cough, no hemoptysis. He had a follow up chest XR 04/06/2016 which was negative. Review of Systems Constitutional: Positive for fatigue. Negative for appetite change, chills, fever and unexpected weight change. Remains active -- He continues to do painting work HENT: Positive for postnasal drip and voice change. Negative for nosebleeds. Voice change due to VC injury Eyes: Negative. Respiratory: Positive for cough. Negative for chest tightness, shortness of breath and wheezing. Cough rare now Shortness of breath with exertion only Cardiovascular: Positive for leg swelling. Negative for chest pain. Pedal edema at end of day--none in am Gastrointestinal: Negative for abdominal distention, abdominal pain, anal bleeding, blood in stool, constipation, diarrhea, nausea and rectal pain. Went back to [place] and that is working very well for bowel function Genitourinary: Negative for decreased urine volume, difficulty urinating, dysuria, frequency, hematuria, testicular pain and urgency. See IPSS and interim history Musculoskeletal: Positive for arthralgias. Negative for neck stiffness. Skin: Regular follow up with dermatology Patient does not use sun screen Neurological: Negative. Negative for dizziness, weakness, light-headedness and headaches. Hematological: Negative. Psychiatric/Behavioral: Negative for sleep disturbance. The patient is nervous/anxious. See interim history KPS: 100 Vitals Office Visit from 04/27/2016 in [facility] Radiation Oncology Weight - Scale 69.6 kg [...] There is no tenderness. There is no rebound and no guarding. Genitourinary: Genitourinary Comments: Rectal--deferred Musculoskeletal: Normal range [...] Vitals reviewed. Laboratory Studies: date PSA Testosterone 04/06/2016 0.20 03/17/2015 0.3 04/07/2014 0.30 09/29/2013 [...] Plan: Mr Mina is a very pleasant 75 year old man with Adenocarcinoma of the prostate. [id number], Sofy 4+3, left lobe involved. OLGA (-), [...] 10/11/2022 Office Visit Dermatology Virgilio Mckeon MD [facility] DR CHRISTIANO HENSON-DERMAT OLOGY [place], [place] [address] (Wo rk) 10/16/2022 Office Visit Otolaryngology Frank Buchanan MD [facility] OTOLARYNGOLOGY D EPT. [place], [place] 0[address] (Wo rk) 11/29/2022 Appointment Hematology and Oncology 11/29/2022 Office Visit Radiation Oncology Emerald Leyva APRN [facility] RADIATION ONCOLO GY [place], [place] [address] (Wo rk) documented as of this encounter Visit Diagnoses Diagnosis Malignant neoplasm of prostate documented in this encounter Care Teams Machine Stamper Relationship Specialty Start Date End Date Giorgio Cardona MD PCP - General 10/04/10 04/10/17 [facility] [place] [address] documented as of this encounter
--- OUTSIDE RECORDS SUMMARY | 2022-10-09 16:15 | XMS_ITS | Encounter Summary ---
:1940 Author Organization [facility] [place] [address] Care Team Providers Name Role Phone Giorgio Cardona MD Primary Care Provider Reason for Visit Reason Onset Date Comments Reminder Appointment 06/09/2016 Encounter Details Date Type Department Care Team Description 06/09/2016 Telephone Orthopaedics at [facility] Lisa [place] [address] Social History Tobacco Use Types Packs/Day Years Used Date Smoking Tobacco: Never Smokeless Tobacco: Never Alcohol Use Standard Drinks/Week Comments Yes 0 (1 standard drink = 0.6 oz pure alcoho l) RARE Sex Assigned at Date Recorded Not on file documented as of this encounter Miscellaneous Notes Telephone Encounter - Babar Morrison - 06/13/2016 4:39 PM EDT Patient scheduled Telephone Encounter - Lisa Baker - 06/09/2016 2:31 PM EDT I have called and left a message for patient to call and schedule an appointment. documented in this encounter Plan of Treatment Upcoming Encounters Date Type Specialty Care Team Description 10/11/2022 Office Visit Dermatology Virgilio Mckeon MD [facility] [address]-DERMAT OLOGY [place], [place] [address] (Wo rk) 10/16/2022 Office Visit Otolaryngology Frank Buchanan MD [facility] OTOLARYNGOLOGY Sarah EPT. [place], [place] [address] (Wo rk) 11/29/2022 Appointment Hematology and Oncology 11/29/2022 Office Visit Radiation Oncology Emerald Leyva APRN [facility] RADIATION ONCOLO GY [place], [place] [address] (Wo rk) documented as of this encounter Visit Diagnoses Not on filedocumented in this encounter Care Teams Compliance Examiner Relationship Specialty Start Date End Date Giorgio Cardona MD PCP - General 10/04/10 04/10/17 [facility] GENERAL [place] [address] documented as of this encounter
--- OUTSIDE RECORDS SUMMARY | 2022-10-09 16:15 | XMS_ITS | Encounter Summary ---
:1940 Author Organization [place] [address] Care Team Providers Name Role Phone Giorgio Cardona MD Primary Care Provider Encounter Details Date Type Department Care Team Description 11/10/2015 Hospital Encounter XRay at [facility] Giorgio Cardona, [address] osteoarthritis of [address] [facility] ankle or foot, left [facility] [id number] GENERAL INTERNAL [phone] [place] [address] Social History Tobacco Use Types Packs/Day Years [...] [facility] DR CHRISTIANO HENSON-DERMAT OLOGY [place], [place] [address] (Wo rk) 10/16/2022 Office Visit Otolaryngology Frank Buchanan MD [facility] OTOLARYNGOLOGY Sarah EPT. [place], [place] [address] (Wo rk) 11/29/2022 Appointment Hematology and Oncology 11/29/2022 Office Visit Radiation Oncology Emerald Leyva APRN [facility] RADIATION ONCCESAR GY [place], [place] [address] (Wo rk) documented as of this encounter Procedures Procedure Name Priority Date/Time Associated Diagnosis Comme nts XR FOOT MIN 3 STAT 11/10/2015 3:45 PM Traumatic Results for this VIEWS LEFT EST osteoarthritis of ankle proc edure are in or foot, left the results section. 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
--- OUTSIDE RECORDS SUMMARY | 2022-10-09 16:15 | XMS_ITS | Encounter Summary ---
:1940 Author Organization [facility] [place] [address] Care Team Providers Name Role Phone Giorgio Cardona MD Primary Care Provider Reason for Referral Diagnostic Test (Routine) - Closed Specialty Diagnoses / Procedures Referred By Contact Refer red To Contact Radiology Diagnoses Malignant neoplasm of lung, unspecified laterality, unspecified part of lung Dexter Cote [facility] Rad [facility] Scan Procedures CT Chest wo Contrast (Generic) [place] [address] [place] [address] Referral ID Status Reason Start Date Expiration Date Visits V isits Requested Authorized [id number] Closed Specialty 08/16/2016 08/16/2017 1 1 Service Requested Reason for Visit Diagnostic Test (Routine) - Closed Specialty Diagnoses / Procedures Referred By Contact Refer red To Contact Radiology Diagnoses Malignant neoplasm of lung, unspecified laterality, unspecified part of lung Dexter Cote [facility] Rad [facility] Scan Procedures CT Chest wo Contrast (Generic) [place] [address] [place] [address] Referral ID Status Reason Start Date Expiration Date Visits V isits Requested Authorized [id number] Closed Specialty 08/16/2016 08/16/2017 1 1 Service Requested Encounter Details Date Type Department Care Team Description 09/04/[address] Scan at [facility] [place], Malignant neoplasm [facility] Dexter Pugh MD of lung, unspecified Drive [facility], [place], [place] [address] THORACIC SURGERY lung [phone] [place] [address] Social History Tobacco Use Types Packs/Day Years [...] Visit Dermatology Virgilio Mckeon MD [facility] [address]-DERMAT OLOGY [place], [place] [address] (Wo rk) 10/16/2022 Office Visit Otolaryngology Frank Buchanan MD [facility] OTOLARYNGOLOGY Sarah EPT. [place], [place] [address] (Wo rk) 11/29/2022 Appointment Hematology and Oncology 11/29/2022 Office Visit Radiation Oncology Emerald Leyva APRN [facility] RADIATION ONCCESAR GY [place], [place] [address] (Wo rk) documented as of this encounter Procedures Procedure Name Priority Date/Time Associated Diagnosis Comme nts CT CHEST WO Routine 09/04/2016 8:39 AM Malignant neoplasm Res ults for this CONTRAST (GENERIC) EDT of lung, unspecified p rocedure are in [...] lung documented in this encounter Care Teams [employer] Science Teacher Relationship Specialty Start Date End Date Giorgio Cardona MD PCP - General 10/04/10 04/10/17 [facility] GENERAL [place] [address] documented as of this encounter
--- OUTSIDE RECORDS SUMMARY | 2022-10-09 16:15 | XMS_ITS | Encounter Summary ---
:1940 Author Organization [facility] [place] [address] Care Team Providers Name Role Phone Giorgio Cardona MD Primary Care Provider Encounter Details Date Type Department Care Team Description 09/08/2015 Orders Only Internal Medicine at [facility] [place] [address] Social History Tobacco Use Types Packs/Day [...] 10/11/2022 Office Visit Dermatology Virgilio Mckeon MD [facility] DR CHRISTIANO HENSON-DERMAT OLOGY [place], [place] [address] (Wo rk) 10/16/2022 Office Visit Otolaryngology Frank Buchanan MD [facility] OTOLARYNGOLOGY Sarah EPT. [place], [place] [address] (Wo rk) 11/29/2022 Appointment Hematology and Oncology 11/29/2022 Office Visit Radiation Oncology Emerald Leyva APRN [facility] DR RYNE CANO [place], [place] [address] (Wo rk) documented as of this encounter Visit Diagnoses Not on filedocumented in this encounter Care Teams Financial Assistance Specialist Relationship Specialty Start Date End Date Giorgio Cardona MD PCP - General 10/04/10 04/10/17 [facility] GENERAL [place] [address] documented as of this encounter
--- OUTSIDE RECORDS SUMMARY | 2022-10-09 16:15 | XMS_ITS | Encounter Summary ---
:1940 Author Organization [facility] [place] [address] Care Team Providers Name Role Phone Giorgio Cardona MD Primary Care Provider Encounter Details Date Type Department Care Team Description 08/06/2015 Telephone Internal Medicine at [facility] Oneida Bridges, [place] [address] Social History Tobacco Use Types Packs/Day Years Used Date Smoking Tobacco: Never Smokeless Tobacco: Never Alcohol Use Standard Drinks/Week Comments Yes 0 (1 standard drink = 0.6 oz pure alcoho l) RARE Sex Assigned at Date Recorded Not on file documented as of this encounter Miscellaneous Notes Telephone Encounter - Oneida Bridges RN - 08/06/2015 3:18 PM EDT Call from pt reporting that he is having terrible heartburn. Pt reports that symptoms started when he started drinking coffee, but that he has now stopped the coffee and the symptoms have not gone away. Pt reports that he has acid coming into his mouth and it romero like a son of a gun Pt also notingincreased mucous production that he almost choked on. Pt states he takes the Prilosec when he needs it and has taken it for a few days. Pt instructed to have mild foods and liquids over weekend and take the Prilosec 20mg BID and call PCP office on Sunday with update on symptoms. Will forward to PCP and contact pt with any other instructions/information documented in this encounter Plan of Treatment Upcoming Encounters Date Type Specialty Care Team Description 10/11/2022 Office Visit Dermatology Virgilio Mckeon MD [facility] DR CHRISTIANO HENSON-DERMAT OLOGY [place], [place] [address] (Wo rk) 10/16/2022 Office Visit Otolaryngology Frank Buchanan MD [facility] OTOLARYNGOLOGY Sarah EPT. [place], [place] [address] (Wo rk) 11/29/2022 Appointment Hematology and Oncology 11/29/2022 Office Visit Radiation Oncology Emerald Leyva APRN [facility] RADIATION ONCOLO GY [place], [place] [address] (Wo rk) documented as of this encounter Visit Diagnoses Not on filedocumented in this encounter Care Teams It Infrastructure Manager Relationship Specialty Start Date End Date Giorgio Cardona MD PCP - General 10/04/10 04/10/17 [facility] GENERAL [place] [address] documented as of this encounter
--- OUTSIDE RECORDS SUMMARY | 2022-10-09 16:15 | XMS_ITS | Encounter Summary ---
:1940 Author Organization [facility] Address [facility] [place] [address] Care Team Providers Name Role Phone Giorgio Cardona MD Primary Care Provider Reason for Visit Reason Comments Left Foot Pain FX DOI 11/07/15 Surgical (Routine) - Closed Specialty Diagnoses / Procedures Referred By Contact Refer red To Contact Orthopaedics Diagnoses Traumatic osteoarthritis of ankle or foot, left Giorgio Cardona MD [facility] Orth[facility]ics [address] [place] [address] [address] [facility] [address] GENERAL INTERNAL [place], [place] [phone] [place] [address] Referral ID Status Reason Start Date Expiration Date Visits V isits Requested Authorized [id number] Closed Consult, 11/10/2015 11/09/2016 1 1 Test & Treat Encounter Details Date Type Department Care Team Description 11/17/2015 Office Visit Orthopaedics at [facility] [place] Giorgio Cardona MD [facility] [place] [address] Foot fracture, right, [facility] Alessio Quezada MD [facility] [place] [address] closed, initial Drive encounter [place] [id number] Social History Tobacco Use Types Packs/Day Years Used Date Smoking Tobacco: Never Smokeless Tobacco: Never Alcohol Use Standard Drinks/Week Comments Yes 0 (1 standard drink = 0.6 oz pure alcoho l) RARE Sex Assigned at Date Recorded Not on file documented as of this encounter Last Filed Vital Signs Vital Sign Reading Time Taken Comments Blood Pressure 127/61 11/17/2015 3:28 PM EST Pulse 66 11/17/2015 3:28 PM EST Temperature - - Respiratory Rate - - Oxygen Saturation - - Inhaled Oxygen Concentration - - Weight 68 kg (150 lb) 11/17/2015 3:28 PM EST verbal Height 170.2 cm (5' 7) 11/17/2015 3:28 PM EST verbal Body Mass Index 23.49 11/17/2015 3:28 PM EST documented in this encounter Progress Notes Alessio Quezada - 11/17/2015 4:06 PM EST 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 What brings him here today, however, is an myy-xdsg-hiy injury. He was doing work at one of his current painting sites and a plank fell on his right foot distally. He still worked for couple of days but because of persistent pain, he was seen, had x-rays taken and was referred with a diagnosis of a fracture. Certainly since this happened, he is much more comfortable, a walking boot was given and he continued to work with this. On his physical exam after removing the boot, there was certainly no redness or swelling that I could see in the foot, although the patient did describe some redness in the toe probably three or four days ago. The only area of tenderness that he has is over the proximal portion of the distal phalanx of the great toe. He is not tender at all proximally in the area of the metatarsophalangeal joint or over the proximal phalanx. It is just the distal phalanx, but there is no erythema, there is no ecchymoses that I can see and passively I can bring him through a reasonably good range of motion and he only describes pain at the extremes of motion and on direct palpation over the proximal portion of the distal phalanx. His x-rays do show some degenerative changes at the first metatarsophalangeal joint and there are some degenerative cyst changes in the area medially over a small bunion formation over the distal aspect of the first metatarsus. However, comparing films from the end of October and films from today, I think there is a for all practical purposes nondisplaced fracture of the proximal portion of the distal phalanx. It does exit into the joint but for all practical purposes it is nondisplaced. He has had more reabsorption on the current film compared to the initial films where it would have been very hard for us to say that he did break it. ASSESSMENT: Benign fracture involving the distal phalanx of the great toe on the right side. I think symptomatic management is all that he needs and he is comfortable in the brace, the walking boot that he has and I think he could probably use this for another week or two and then evolve into a shoe of his choice. There really should be no complication associated with this in the short or the long haul. His return will be for his standard followup for his total knee replacement. CC: Giorgio Cardona MD documented in this encounter Plan of Treatment Upcoming Encounters Date Type Specialty Care Team Description 10/11/2022 Office Visit Dermatology Virgilio Mckeon MD [facility] DR CHRISTIANO HENSON-DERMAT OGY [place], [place] [address] (Wo rk) 10/16/2022 Office Visit Otolaryngology Frank Buchanan MD [facility] OTOLARYNGOLOGY Sarah EPT. [place], [place] [address] (Wo rk) 11/29/2022 Appointment Hematology and Oncology 11/29/2022 Office Visit Radiation Oncology Emerald Leyva APRN [facility] RADIATION ONCCESAR GY [place], [place] [address] (Wo rk) Scheduled Referrals Name Type Priority Associated Diagnoses Order S chedule Referral to Outpatient Routine Traumatic Ordered: Orthopaedics Referral osteoarthritis of 11/10/2015 ankle or foot, left documented as of this encounter Visit Diagnoses Diagnosis Foot fracture, right, closed, initial en counter documented in this encounter Care Teams Enrollment Management Manager Relationship Specialty Start Date End Date Giorgio Cardona MD PCP - General 10/04/10 04/10/[address] [facility] [address] [place] [address] documented as of this encounter
--- OUTSIDE RECORDS SUMMARY | 2022-10-09 16:16 | XMS_ITS | Encounter Summary ---
:1940 Author Organization [facility] Address [facility] [address] Care Team Providers Name Role Phone Giorgio Cardona MD Primary Care Provider Encounter Details Date Type Department Care Team Description 11/26/2014 Hospital Encounter XRay at [facility] Cough, persistent [address] [place] [address] [place] [phone] Social History Tobacco Use Types Packs/Day [...] 10/11/2022 Office Visit Dermatology Virgilio Mckeon MD [facility] DR CHRISTIANO HENSON-DERMAT OLOGY [place], [place] [address] (Wo rk) 10/16/2022 Office Visit Otolaryngology Frank Buchanan MD [facility] OTOLARYNGOLOGY Sarah EPT. [place], [place] [address] (Wo rk) 11/29/2022 Appointment Hematology and Oncology 11/29/2022 Office Visit Radiation Oncology Emerald Leyva APRN [facility] RADIATION ONCCESAR GY [place], [place] [address] (Wo rk) documented as of this encounter Procedures Procedure Name Priority Date/Time Associated Diagnosis Comme nts XR CHEST PA AND Routine 11/26/2014 9:51 AM Cough, persistent R esults for this LATERAL EST procedure are i n the results section. documented in this encounter Results XR chest routine PA & lateral (11/26/2014 9:51 AM EST) Anatomical Region Laterality Modality Chest N/A Radiographic Imaging Specimen (Source) Anatomical Collection Method Collection Time Re ceived Time Location / / Volume Laterality 11/26/2014 9:51 AM EST Impressions 11/26/2014 10:04 AM EST IMPRESSION: No active cardiopulmonary pathology identified. No significant change from 12/24/2013. Narrative 11/26/2014 10:04 AM EST EXAMINATION: CHEST ROUTINE PA+LAT CLINICAL HISTORY: cough TECHNIQUE: PA and lateral views of the c hest. COMPARISON: 12/24/2013. FINDINGS: No interval change in degree o f expansion of both lungs or appearance of the lungs, with linear scarring at alana th bases. Unchanged mild costophrenic angle blunting bilaterally which may ref lect chronic pleural thickening/scarring. Unchanged cardia me diastinal silhouette, sharon, vasculature. Mitral prosthesis and intact sternotomy wires, as before. No interval osseous findings. Procedure Note Eliz Valderrama MD - 11/26/2014Formatt ing of this note might be different from the original. EXAMINATION: CHEST ROUTINE PA+LAT CLINICAL HISTORY: cough TECHNIQUE: PA and lateral views of the c hest. COMPARISON: 12/24/2013. FINDINGS: No interval change in degree o f expansion of both lungs or appearance of the lungs, with linear scarring at alana th bases. Unchanged mild costophrenic angle blunting bilaterally which may ref lect chronic pleural thickening/scarring. Unchanged cardia me diastinal silhouette, sharon, vasculature. Mitral prosthesis and intact sternotomy wires, as before. No interval osseous findings. IMPRESSION IMPRESSION: No active cardiopulmonary pa thology identified. No significant change from 12/24/2013. Giorgio Cardona MD IMG DX ORDERABLES documented in this encounter Visit Diagnoses Diagnosis Cough, persistent Cough documented in this encounter Care Teams Restorative Care Technician Relationship Specialty Start Date End Date Giorgio Cardona MD PCP - General 10/04/10 04/10/[address] [facility] [place] [address] documented as of this encounter
--- OUTSIDE RECORDS SUMMARY | 2022-10-09 16:16 | XMS_ITS | Encounter Summary ---
:1940 Author Organization [facility] [place] [address] Care Team Providers Name Role Phone Giorgio Cardona MD Primary Care Provider Reason for Visit Reason Comments Other Encounter Details Date Type Department Care Team Description 11/25/2014 Telephone Dermatology at [facility] Rigoberto Jackson III, [address] [place] [phone] [facility] [phone] [facility] [place] [place], [place] [address] (Wo rk) Social History Tobacco Use Types Packs/Day Years Used Date Smoking Tobacco: Never Smokeless Tobacco: Never Alcohol Use Standard Drinks/Week Comments Yes 0 (1 standard drink = 0.6 oz pure alcoho l) RARE Sex Assigned at Date Recorded Not on file documented as of this encounter Miscellaneous Notes Telephone Encounter - Rigoberto Jackson III, MD - 11/25/2014 9:00 PM EST I called the patient and discussed the path report: [facility] Provider: RIGOBERTO JACKSON III Pt. Name: KATLIN CLEMENT Jennifer [place]ulieu Acc #: [id number] Pt. Col Date: 11/23/2014 /Sex: 1940,(74 years),Male Rec Date: 11/23/2014 LOC: [facility] SURGICAL PATHOLOGY ---Pathologic Diagnosis--- A - Skin, right mid lateral back, shave biopsy: Basal cell carcinoma, superficial type, extending to both peripheral margins. 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 I discussed this condition with the patient's who was with him at the appointment. I explored therapeutic options and will call and discuss this with the patient when he returns home and plan treatment The superficial BCC can be treated with ED & C. The clear cell acanthoma requires no treatment. It is a benign lesion. documented in this encounter Plan of Treatment Upcoming Encounters Date Type Specialty Care Team Description 10/11/2022 Office Visit Dermatology Virgilio Mckeon MD [facility] DR CHRISTIANO MARRUFO-DERMAT OLOGY [place], [place] [address] (Wo rk) 10/16/2022 Office Visit Otolaryngology Frank Buchanan MD [facility] OTOLARYNGOLOGY Sarah EPT. [place], [place] [address] (Wo rk) 11/29/2022 Appointment Hematology and Oncology 11/29/2022 Office Visit Radiation Oncology Emerald Leyva APRN [facility] RADIATION ONCOLO GY [place], [place] [address] (Wo rk) documented as of this encounter Visit Diagnoses Not on filedocumented in this encounter Care Teams Medical Microbiologist Relationship Specialty Start Date End Date Giorgio Cardona MD PCP - General 10/04/10 04/10/17 [facility] [place] [address] documented as of this encounter
--- OUTSIDE RECORDS SUMMARY | 2022-10-09 16:16 | XMS_ITS | Encounter Summary ---
:1940 Author Organization [facility] [place] [address] Care Team Providers Name Role Phone Giorgio Cardona MD Primary Care Provider Encounter Details Date Type Department Care Team Description 12/02/2013 Hospital Encounter [place] [facility] total knee arthroplasty, right; [address] [place] [address] Knee [place] [phone] Social History Tobacco Use Types Packs/Day Years Used Date Smoking Tobacco: Never Smokeless Tobacco: Never Alcohol Use Standard Drinks/Week Comments Yes 0 (1 standard drink = 0.6 oz pure alcoho l) RARE Sex Assigned at Date Recorded Not on file documented as of this encounter Medications at Time of Discharge Medication Sig Dispensed Refills Start Date End Date potassium chloride Take 1 tablet by 30 tablet 3 11/10/2013 05/28/2014 (K-DUR/KLOR-CON) 10 mEq mouth daily. extended release tablet atenolol (TENORMIN) 50 mg TAKE ONE-HALF 45 tablet 3 013 10/11/2018 tabletIndications: TABLET BY MOUTH Hypertension EVERY DAY docusate sodium (COLACE) Take 100 mg by 0 05/08/2014 100 mg capsule mouth 2 times daily. albuterol (PROVENTIL Inhale 2 puffs into 1 Inhaler 1 201204/06/2016 HFA;VENTOLIN HFA) 90 the lungs every 4 mcg/actuation inhaler hours as needed for Wheezing. Use with spacer furosemide (LASIX) 20 mg Take 1 tablet by 30 tablet 0 07/0910/11/2018 tablet mouth daily. terazosin (HYTRIN) 2 mg Take 1 capsule by 0 07/0910/11/2018 capsule mouth nightly. omeprazole (PRILOSEC) 10 Take 10 mg by mouth 0 04/09/2014 mg capsule 2 times daily. levothyroxine (SYNTHROID) Take 1 tablet by 30 tablet 12 12/1310/11/2018 125 mcg tablet mouth every morning. documented as of this encounter Plan of Treatment Upcoming Encounters Date Type Specialty Care Team Description 10/11/2022 Office Visit Dermatology Virgilio Mckeon MD [facility] DR CHRISTIANO HENSON-DERMAT OLOGY [place], [place] [address] (Wo rk) 10/16/2022 Office Visit Otolaryngology Frank Buchanan MD [facility] OTOLARYNGOLOGY D EPT. [place], [place] [address] (Wo rk) 11/29/2022 Appointment Hematology and Oncology 11/29/2022 Office Visit Radiation Oncology Emerald Leyva APRN [facility] RADIATION ONCOLO GY [place], [place] [address] (Wo rk) documented as of this encounter Procedures Procedure Name Priority Date/Time Associated Diagnosis Comme nts XR KNEE DIAGNOSTIC 1 Routine 12/02/2013 9:49 AM S/P total knee Results for this OR 2 VIEW EST arthroplasty, ri ght procedure are in Knee joint the results replacement by other section . means documented in this encounter Results XR knee diagnostic 1 or 2 view (12/02/2013 9:49 AM EST) Anatomical Region Laterality Modality Knee N/A Radiographic Imaging Specimen (Source) Anatomical Collection Method Collection Time Re ceived Time Location / / Volume Laterality 12/02/2013 9:49 AM EST Narrative 12/02/2013 10:53 AM EST Examination KNEE 1 OR 2 VIEWS/RIGHT Clinical History R TKA DOS 06/19/12 Comparison 12/01/2012, 07/26/2012. Technique 2 views right knee. Findings The patient is status post total knee ar throplasty. ??No periprosthetic fracture or new significant periprosthetic radiol ucency. Trace amount of knee joint fluid. ??No large joint effusion. Small intra tendinous ossicles or heterotopic bone along the distal quadriceps tendon, are unchanged. Impression Unchanged appearance of the right total knee arthroplasty. Procedure Note Micheal Tracy MD - 12/02/2013Formatti ng of this note might be different from the original. Examination KNEE 1 OR 2 VIEWS/RIGHT Clinical History R TKA DOS 06/19/12 Comparison 12/01/2012, 07/26/2012. Technique 2 views right knee. Findings The patient is status post total knee ar throplasty. No periprosthetic fracture or new significant periprosthetic radiol ucency. Trace amount of knee joint fluid. No large joint effusion. Small in tra tendinous ossicles or heterotopic bone along the distal quadriceps tendon, are unchanged. Impression Unchanged appearance of the right total knee arthroplasty. Alessio Quezada MD IMG DX ORDERABLES documented in this encounter Visit Diagnoses Diagnosis S/P total knee arthroplasty, right Knee joint replacement by other means documented in this encounter Care Teams Seaport Planning Manager Relationship Specialty Start Date End Date Giorgio Cardona MD PCP - General 10/04/10 04/10/[address] [facility] [address] [place] [place] [address] documented as of this encounter
--- OUTSIDE RECORDS SUMMARY | 2022-10-09 16:16 | XMS_ITS | Encounter Summary ---
:1940 Author Organization [facility] [place] [address] Care Team Providers Name Role Phone Giorgio Cardona MD Primary Care Provider Reason for Visit Reason Comments Right Knee Pain SP R TKA DOS 06/19/12 fell 07/14 11/25 Encounter Details Date Type Department Care Team Description 08/04/2014 Office Visit Orthopaedics at [facility] [place] Alessio Quezada Total knee replacement statu s, right (Primary Dx); [facility] MD Lexy Knee joint [place] [address] [place] [address] ORTHOPAEDIC SURGERY [place], [place] [address] Social History Tobacco Use Types Packs/Day Years Used Date Smoking Tobacco: Never Smokeless Tobacco: Never Alcohol Use Standard Drinks/Week Comments Yes 0 (1 standard drink = 0.6 oz pure alcoho l) RARE Sex Assigned at Date Recorded Not on file documented as of this encounter Last Filed Vital Signs Vital Sign Reading Time Taken Comments Blood Pressure 137/66 08/04/2014 2:25 PM EDT Pulse 78 08/04/2014 2:25 PM EDT Temperature - - Respiratory Rate - - Oxygen Saturation - - Inhaled Oxygen Concentration - - Weight 73 kg (161 lb) 08/04/2014 2:25 PM EDT STATED Height 168.9 cm (5' 6.5) 08/04/2014 2:25 PM EDT STATED Body Mass Index 25.6 08/04/2014 2:25 PM EDT documented in this encounter Progress Notes Alessio Quezada - 08/04/2014 2:41 PM EDT Mr. Em is a 74-year-old gentleman who is now three years status post a right total knee replacement, specifically a fixed platform stabilized knee. He is doing very well. He has fallen three times. 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 In any event, he fell recently carrying a laundry basket at home, but this is not time for his annual appointment and he has actually done very well. He has full extension capability of this knee. He is slightly tender over the medial joint line where he may have had contact when he fell, but there is no ecchymosis. There is no effusion and it is a stable joint in both the coronal and sagittal planes. Patella tracks beautifully. He does have full extension without a lag and can flex to 120 degrees. He could rise from a chair without the use of his arms and he has a perfectly normal gait. IMAGING: X-rays of the right knee show total knee in excellent position; nothing to suggest stress shielding, implant failure, loosening, or malposition. Contralateral knee does have moderate amounts of degenerative changes primarily in the medial compartment, but this has not changed for all the years. ASSESSMENT: Despite the falls, he has done well. Admonitions about putting himself at risk was emphasized, also good foot care and dental prophylaxis, and I congratulated him on the purchase of his bucket forklift wheel loader. We will see him in two years' time for followup with films or earlier p.r.n. CC: Giorgio Cardona MD documented in this encounter Plan of Treatment Upcoming Encounters Date Type Specialty Care Team Description 10/11/2022 Office Visit Dermatology Virgilio Mckeon MD [facility] [address] CHRISTIANO HENSON-DERMAT [place], [place] [address] (Wo rk) 10/16/2022 Office Visit Otolaryngology Frank Buchanan MD [facility] OTOLARYNGOLOGY Sarah EPT. [place], [place] [address] (Wo rk) 11/29/2022 Appointment Hematology and Oncology 11/29/2022 Office Visit Radiation Oncology Emerald Leyva APRN [facility] RADIATION ONCOLO GY [place], [place] [address] (Wo rk) documented as of this encounter Visit Diagnoses Diagnosis Total knee replacement status, right - P rimary Knee joint replacement by other means documented in this encounter Care Teams Bakery Helper Relationship Specialty Start Date End Date Giorgio Cardona MD PCP - General 10/04/10 04/10/17 [facility] [place] [address] documented as of this encounter
--- OUTSIDE RECORDS SUMMARY | 2022-10-09 16:16 | XMS_ITS | Encounter Summary ---
:1940 [place] [address] Care Team Providers Name Role Phone Giorgio Cardona MD Primary Care Provider Encounter Details Date Type Department Care Team Description 12/24/2013 Hospital Encounter Non-Invasive CARDIO, ECHO SIXTY MIN APPT None Preop cardiovascular Cardiology Lab Giorgio Cardona MD [facility] GENERAL INTERNAL [place] [address] [place] [id number] Social History Tobacco Use Types Packs/Day Years [...] [facility] DR CHRISTIANO HENSON-DERMAT OLOGY [place], [place] [address] (Wo rk) 10/16/2022 Office Visit Otolaryngology Frank Buchanan MD [facility] OTOLARYNGOLOGY Sarah EPT. [place], [place] [address] (Wo rk) 11/29/2022 Appointment Hematology and Oncology 11/29/2022 Office Visit Radiation Oncology Emerald Leyva APRN [facility] RADIATION ONCCESAR GY [place], [place] [address] (Wo rk) documented as of this encounter Procedures Procedure Name Priority Date/Time Associated Diagnosis Comme nts ECHOCARDIOGRAM Routine 12/24/2013 4:50 Preop cardiovascular Re sults for this TRANSTHORACIC(LEB) PM EST exam procedure are in the results section. documented in this encounter Results Echocardiogram Transthoracic(Leb) (12/24/2013 4:50 PM EST) P athologist Signature EF 69 HEARTLAB SYSTEM Anatomical Region Laterality Modality Other Specimen (Source) Anatomical Location Collection Method / Collectio n Time Received Time / Laterality Volume 12/24/2013 Narrative 12/24/2013 5:03 PM EST Procedure: ? Transthoracic Echocardiogram Patient: ? RACQUEL Rodriguez ? (Age): 1940(73) Med Rec#: ?[id number] ? Sex: ?M ? Site Loc: ?[facility] ? Ht / Wt: ??161(cm)/71(kg) Pt. Loc: ? Echo Lab ? BSA: ?1.78 Study Date: ?12/24/2013 ? Pt. Type: Outpatient Tape: ? Referring: SUNIL Supervisor Acoustical Tile Carpenters: Nicolasa Sargent Diagnosis:CPT Code(s): ??Spectral Dopple r (53098), ??Color Doppler (50918), ??Echo Full (12936), Indication(s): ??Pre-op cardiovascular e valuation Rhythm: HR ?BP ?129/76 ?? SUMMARY: 1. The left ventricular chamber size is normal. Borderline concentric left ventricular hypertrophy is observed . ??There is normal global left ventricular systolic function. There are no left ventricular segmental wall motion abnormalities. There is no e vidence of LVOT obstruction. The quantitative left ventricular ejection f raction by biplane Madison's method is 69%. 2. Right ventricular chamber size, wall thickness, and systolic function are within normal limits. 3. 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 The nando n gradient across the mitral valve is 3 mmHg. 4. The estimated pulmonary artery systol ic pressure is 33 mmHg. 5. See remainder of report for additiona l findings. FINDINGS: Left Ventricle ?The left ventricular chamber size is normal. ?Borderline concentric left ventric ular hypertrophy is observed. ?There is no evidence of LVOT obstr uction. ?There is normal global left ventri cular systolic function. ?The quantitative left ventricular ejection fraction by biplane Madison's method is 69%. ?There are no left ventricular segm ental wall motion abnormalities. Left Atrium ?The left atrium is mildly dilated. Right Ventricle ?Right ventricular chamber size, wa ll thickness, and systolic function are within normal limits. ?No pulmonary hypertension is noted . ?The estimated pulmonary artery sys tolic pressure is 33 mmHg. ?The estimated right atrial pressur e is 3 mmHg. Right Atrium ?The right atrium is normal in size . Aortic Valve ?The aortic valve is tricuspid. ?The aortic valve leaflets are mild ly thickened. ?Systolic excursion of the aortic v alve is normal. ?There is no evidence of aortic aden ve stenosis. ?There is a trace of aortic regurgi tation present. Mitral Valve ?The mean gradient across the lesley l valve is 3 mmHg. ?There is trace mitral regurgitatio n present. 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 Tricuspid Valve ?The tricuspid valve appears normal in structure and function. ?There is mild (1+/4+) tricuspid re gurgitation present. Pulmonic Valve ?The pulmonic valve is probably nor mal. ?There is mild (1+/4+) pulmonic reg urgitation present. Pericardium ?The pericardium appears normal and there is no evidence of a pericardial effusion. Aorta ?The aortic root is normal in size. ?The ascending aorta is normal in s ize. Pulmonary Artery ?The main pulmonary artery appears normal. Venous ?The inferior vena cava appears nor mal in size. ?There is a greater than 50% respir atory change in the inferior vena cava dimension. Misc ?Two-dimensional echo, spectral Dop pler and color Doppler performed. Wall Motion: Segment Name ?Rest ? Base-Anteroseptal ?? Normal ? Base-Anterior ? Normal ? Base-Anterolateral ??Normal ? Base-Posterolateral Normal ? Base-Inferior ? Normal ? Base-Inferoseptal ?? Normal ? Mid-Anteroseptal ?Normal ? Mid-Anterior ?Normal ? Mid-Anterolateral ?? Normal ? Mid-Posterolateral ??Normal ? Mid-Inferior ?Normal ? Mid-Inferoseptal ?Normal ? Meraux-Septal ? Normal ? Meraux-Anterior ? Normal ? Meraux-Lateral ?Normal ? Meraux-Inferior ? Normal ? Meraux-Tip ?Normal ? Chambers ?Value ?Units (Range) ? EF ??Bi-p Simp ? 69 ? % (55 to 80) ? IVSd 2D ? 1.3 ?cm ? LVIDd 2D ?4.7 ?cm ? PWd 2D ?1.1 ?cm ? LVIDs 2D ?2.8 ?cm ? LVFS 2D ? 40 ? % ? LA area ? 21.6 ? cm2 (<21) ? RA area ? 13 ? cm2 (<18) ? Ao root ? 3.5 ?cm (2.1 to 3.6) ? Asc Ao ?2.9 ?cm (2 to 3.5) ? Mitral Valve ?Value ?Units (Range) ? MV grad M ? 3 ?mmHg ? E peak ?0.88 ? m/sec ? E/A ratio ? 0.7 ?ratio ? MVDT ?307 ?msec ? E1 ?0.05 ? m/sec ? E/E1 ?17.6 ? ratio ? Tricuspid/Pulmonic Valves ?Value ?Units (Range) ? TR peak marsha ? 2.8 ?m/sec ? RAP ? 3 ?mmHg ? RVSP/PASP ? 33 ? mmHg ? This report has been electronically sign ed by: _ Isaac Pina MD ? 12/24/2013 17 :03:02 Images reviewed and interpretation verif ied [facility] Cardiac Ultrasound Laboratory Procedure Note Isaac Pina MD - 12/24/2013Formatt ing of this note might be different from the original. Procedure: Transthoracic Echocardiogram Patient: RACQUEL Rodriguez (Age): 1940(73) Med Rec#: [id number] Sex: M Site Loc: [facility] Ht / Wt: 161(cm)/71(kg) Pt. Loc: Echo Lab BSA: 1.78 Study Date: 12/24/2013 Pt. Type: Outpati ent Tape: Referring: SUNIL Supervisor [employer]penters: Nicolasa Sargent Diagnosis:CPT Code(s): Spectral Doppler (33802), Color Doppler (72315), Echo Full (53627), Indication(s): Pre-op cardiovascular ganesh luation Rhythm: HR BP 129/76 SUMMARY: 1. The left ventricular chamber size is normal. Borderline concentric left ventricular hypertrophy is observed . There is normal global left ventricular systolic function. There are no left ventricular segmental wall motion abnormalities. There is no e vidence of LVOT obstruction. The quantitative left ventricular ejection f raction by biplane Madison's method is 69%. 2. Right ventricular chamber size, wall thickness, and systolic function are within normal limits. 3. 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 The nando n gradient across the mitral valve is 3 mmHg. 4. The estimated pulmonary artery systol ic pressure is 33 mmHg. 5. See remainder of report for additiona l findings. FINDINGS: Left Ventricle The left ventricular chamber size is no rmal. Borderline concentric left ventricular hypertrophy is observed. There is no evidence of LVOT obstructio n. There is normal global left ventricular systolic function. The quantitative left ventricular eject ion fraction by biplane Madison's method is 69%. There are no left ventricular segmental wall motion abnormalities. Left Atrium The left atrium is mildly dilated. Right Ventricle Right ventricular chamber size, wall th ickness, and systolic function are within normal limits. No pulmonary hypertension is noted. The estimated pulmonary artery systolic pressure is 33 mmHg. The estimated right atrial pressure is 3 mmHg. Right Atrium The right atrium is normal in size. Aortic Valve The aortic valve is tricuspid. The aortic valve leaflets are mildly th ickened. Systolic excursion of the aortic valve is normal. There is no evidence of aortic valve st enosis. There is a trace of aortic regurgitatio n present. Mitral Valve The mean gradient across the mitral aden ve is 3 mmHg. There is trace mitral regurgitation pre sent. 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 Tricuspid Valve The tricuspid valve appears normal in s tructure and function. There is mild (1+/4+) tricuspid regurgi tation present. Pulmonic Valve The pulmonic valve is probably normal. There is mild (1+/4+) pulmonic regurgit ation present. Pericardium The pericardium appears normal and ther e is no evidence of a pericardial effusion. Aorta The aortic root is normal in size. The ascending aorta is normal in size. Pulmonary Artery The main pulmonary artery appears lois l. Venous The inferior vena cava appears normal i n size. There is a greater than 50% respiratory change in the inferior vena cava dimension. Misc Two-dimensional echo, spectral Doppler and color Doppler performed. Wall Motion: Segment Name Rest Base-Anteroseptal Normal Base-Anterior Normal Base-Anterolateral Normal Base-Posterolateral Normal Base-Inferior Normal Base-Inferoseptal Normal Mid-Anteroseptal Normal Mid-Anterior Normal Mid-Anterolateral Normal Mid-Posterolateral Normal Mid-Inferior Normal Mid-Inferoseptal Normal Meraux-Septal Normal Meraux-Anterior Normal Meraux-Lateral Normal Meraux-Inferior Normal Meraux-Tip Normal Chambers Value Units (Range) EF Bi-p Simp 69 % (55 to 80) IVSd 2D 1.3 cm LVIDd 2D 4.7 cm PWd 2D 1.1 cm LVIDs 2D 2.8 cm LVFS 2D 40 % LA area 21.6 cm2 (<21) RA area 13 cm2 (<18) Ao root 3.5 cm (2.1 to 3.6) Asc Ao 2.9 cm (2 to 3.5) Mitral Valve Value Units (Range) MV grad M 3 mmHg E peak 0.88 m/sec E/A ratio 0.7 ratio MVDT 307 msec E1 0.05 m/sec E/E1 17.6 ratio Tricuspid/Pulmonic Valves Value Units (Range) TR peak marsha 2.8 m/sec RAP 3 mmHg RVSP/PASP 33 mmHg This report has been electronically sign ed by: _ Isaac Pina MD 12/24/2013 17:03:02 Images reviewed and interpretation verif ied [facility] Cardiac Ultrasound Laboratory Giorgio Cardona MD ECHO ORDERABLES documented in this encounter Visit Diagnoses Diagnosis Preop cardiovascular exam Pre-operative cardiovascular examination documented in this encounter Care Teams Electronics Engineering Manager Relationship Specialty Start Date End Date Giorgio Cardona MD PCP - General 10/04/10 04/10/17 [facility] GENERAL INTERNAL [place] [address] documented as of this encounter
--- OUTSIDE RECORDS SUMMARY | 2022-10-09 16:16 | XMS_ITS | Encounter Summary ---
:1940 Author Organization [facility] [place] [address] Care Team Providers Name Role Phone Giorgio Cardona MD Primary Care Provider Encounter Details Date Type Department Care Team Description 12/24/2013 Hospital Encounter XRay at [facility] cardiovascular [address] [place] [address] [place] [phone] Social History Tobacco Use Types Packs/Day Years [...] [facility] DR CHRISTIANO HENSON-DERMAT OLOGY [place], [place] [address] (Wo rk) 10/16/2022 Office Visit Otolaryngology Frank Buchanan MD [facility] OTOLARYNGOLOGY D EPT. [place], [place] [address] (Wo rk) 11/29/2022 Appointment Hematology and Oncology 11/29/2022 Office Visit Radiation Oncology Emerald Leyva APRN [facility] RADIATION ONCOLO GY [place], [place] [address] (Wo rk) documented as of this encounter Procedures Procedure Name Priority Date/Time Associated Diagnosis Comme nts XR CHEST PA AND Routine 12/24/2013 3:39 PM Preop cardiovascula r Results for this LATERAL EST exam procedure are i n the results section. documented in this encounter Results XR chest routine PA & lateral (12/24/2013 3:39 PM EST) Anatomical Region Laterality Modality Chest N/A Radiographic Imaging Specimen (Source) Anatomical Collection Method Collection Time Re ceived Time Location / / Volume Laterality 12/24/2013 3:39 PM EST Narrative 12/24/2013 5:28 PM EST Examination CHEST ROUTINE PA+LAT Clinical History pre op rotator cuff repair Comparison Chest radiograph April 25, 2013 ?? Technique PA and lateral standing chest radiograph ?? Findings Unchanged cardiomediastinal silhouette, sharon and pulmonary vasculature. Linear atelectasis or bibasilar scarring is unc hanged. 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 There is no pulmonary edema or pleural effusions. No interval osseous f indings. ?? Impression No significant change, or acute cardiopu lmonary pathology Film and interpretation reviewed by the attending Procedure Note Eliz Valderrama MD - 12/24/2013Formatt ing of this note might be different from the original. Examination CHEST ROUTINE PA+LAT Clinical History pre op rotator cuff repair Comparison Chest radiograph April 25, 2013 Technique PA and lateral standing chest radiograph Findings Unchanged cardiomediastinal silhouette, sharon and pulmonary vasculature. Linear atelectasis or bibasilar scarring is unc hanged. 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 There is no pulmonary edema or pleural effusions. No interval osseous f indings. Impression No significant change, or acute cardiopu lmonary pathology Film and interpretation reviewed by the attending Giorgio Cardona MD IMG DX ORDERABLES documented in this encounter Visit Diagnoses Diagnosis Preop cardiovascular exam Pre-operative cardiovascular examination documented in this encounter Care Teams Silver Designer Relationship Specialty Start Date End Date Giorgio Cardona MD PCP - General 10/04/10 04/10/17 [facility] GENERAL [place] [address] documented as of this encounter
--- OUTSIDE RECORDS SUMMARY | 2022-10-09 16:16 | XMS_ITS | Encounter Summary ---
:1940 Author Organization [facility] [place] [address] Care Team Providers Name Role Phone Giorgio Cardona MD Primary Care Provider Encounter Details Date Type Department Care Team Description 02/04/2015 Telephone Dermatology at [facility] Rigoberto Posada III, [address] [place] [phone] [facility] [phone] CHRISTIANO MARRUFO-DERMAT [place], [place] [address] (Wo rk) Social History Tobacco Use Types Packs/Day Years Used Date Smoking Tobacco: Never Smokeless Tobacco: Never Alcohol Use Standard Drinks/Week Comments Yes 0 (1 standard drink = 0.6 oz pure alcoho l) RARE Sex Assigned at Date Recorded Not on file documented as of this encounter Miscellaneous Notes Telephone Encounter - Penelope Shen - 02/04/2015 1:04 PM EDT William Brooke, The patient called and said that Dr. Jackson's nurse had asked him what medication he takes everyday. He said that he takes Loratadine 10mg tablets and he takes one a day. He asked that I relay the message along you. Penelope Laird documented in this encounter Plan of Treatment Upcoming Encounters Date Type Specialty Care Team Description 10/11/2022 Office Visit Dermatology Virgilio Mckeon MD [facility] ER DR CHRISTIANO MARRUFO-DERMAT OLOGY [place], [place] [address] (Wo rk) 10/16/2022 Office Visit Otolaryngology Frank Buchanan MD [facility] OTOLARYNGOLOGY Sarah EPT. [place], [place] [address] (Wo rk) 11/29/2022 Appointment Hematology and Oncology 11/29/2022 Office Visit Radiation Oncology Emerald Leyva APRN [facility] RADIATION ONCOLO GY [place], [place] [address] (Wo rk) documented as of this encounter Visit Diagnoses Not on filedocumented in this encounter Care Teams Medical Claims Representative Relationship Specialty Start Date End Date Giorgio Cardona MD PCP - General 10/04/10 04/10/17 [facility] GENERAL [place] [address] documented as of this encounter
--- OUTSIDE RECORDS SUMMARY | 2022-10-09 16:16 | XMS_ITS | Encounter Summary ---
:1940 Author Organization [place] [address] Care Team Providers Name Role Phone Giorgio Cardona MD Primary Care Provider Reason for Visit Reason Comments Radiation Follow-up prostate cancer Encounter Details Date Type Department Care Team Description 04/08/2015 Follow-Up Radiation Oncology at [place], Danna Pugh APRN Malignant neoplasm of [address] prostate [address] [place] [address] [place] [address] [id number] (Wo rk) Social History Tobacco Use Types Packs/Day Years Used Date Smoking Tobacco: Never Smokeless Tobacco: Never Alcohol Use Standard Drinks/Week Comments Yes 0 (1 standard drink = 0.6 oz pure alcoho l) RARE Sex Assigned at Date Recorded Not on file documented as of this encounter Last Filed Vital Signs Vital Sign Reading Time Taken Comments Blood Pressure 129/53 04/08/2015 8:44 AM EDT Pulse 61 04/08/2015 8:44 AM EDT Temperature 36.5 ??C (97.7 ??F) 04/08/2015 8:44 AM EDT Respiratory Rate 18 04/08/2015 8:44 AM EDT Oxygen Saturation 99% 04/08/2015 8:44 AM EDT Inhaled Oxygen Concentration - - Weight 71.9 kg (158 lb 8 oz) 04/08/2015 8:44 AM EDT Height - - Body Mass Index 27.56 11/26/2014 8:55 AM EST documented in this encounter Patient Instructions Patient InstructionsPaBecka richard APRN - 04/08/2015 8:51 AM EDT date PSA Testosterone 03/17/2015 0.3 04/07/2014 0.30 09/29/2013 0.36 698 11/07/2012 1.16 396 11/29/2011 0.81 287 05/03/2011 0.97 360 12/07/2010 1.68 424 09/12/2010 1.39 06/20/2010 1.58 03/16/2010 2.27 12/14/2009 2.3 448 11/01/09 2.8 06/22/09 2.4 01/12/09 1.6 10/14/08 1.9 09/21/08 3.5 05/20/08 1.0 02/10/08 0.9 11/19/07 1.5 08/07/07 1.3 05/27/07 2.9 post XRT 10/25/06 5.4 07/26/06 5.1 12/12/05 4.7 09/2005 4.4 09/2004 3.8 Vitals Follow-Up from 04/08/2015 in [facility] Radiation Oncology Weight - Scale 71.895 kg (158 lb 8 oz) Temp 36.5 ??C (97.7 ??F) Temp Source Oral Heart Rate 61 Heart Rate Source Right, NIBP Resp 18 BP 129/53 mmHg BP Location Right arm Patient Position Sitting SpO2 99 % documented in this encounter Progress Notes Becka Daen APRN - 04/08/2015 8:30 AM EDT Subjective: Patient ID: Alfredito Mina is a 74 y.o. male.who is in radiation oncology clinic today for regular followup. He was treated with external beam radiation therapy for prostate cancer and completed treatment 04/12/2007. He was enrolled in a clinical trial--RTOG 0126 arm 2. He was last seen in radiation oncology 09/29/2013. HPI Mr. Mina is a male who [...] were taken and the specimen reported in [facility] pathology under session #[id number] prostate: The right lobe apex, mid, and base negative; the left apex was 3 + 3 in 40% of one core; the left mid was 3 + 4 in 50% of one core; and the left base showed a 3 + 4 in 5% in one of two cores. This information was reviewed at [facility] on October 19, 2006, and the report paralleled that given by the [facility] institution. The [facility] session number was [id number]. The patient was then seen by Dr. Mixon on December 26, 2005, and after review, his note indicates an IPS of 9/35. He had no difficulties with erectile dysfunction. His physical examination revealed a 30-gram prostate without nodularity, and the gland was smooth. With a PSA indicated of 5.4, a Chancellor score of 4 + 3 = 7/10, staged as a T1c N0, it was considered intermediate risk with a possibility oforgan-confined disease of about 50%, seminal vesicle 8%, and lymph nodes 3%. The [facility] five-year survival review was indicated at [...] and Biopsy 09/19/2006 Volume in cc 56 Chancellor grade/score a+b=c 4+3=7 Total Cores 12 cores [...] Adenocarcinoma Post Primary Therapy - Sukumar Date 04/07/2014 Post Primary Therapy - Sukumar PSA 0.30 Cancer history: : 1. Adenocarcinoma of the prostate. [id number], Chancellor 4+3, left lobe involved. OLGA (-), PSA [...] keratosis 702.0 ??? Basal cell carcinoma 173.91 Past Surgical History Procedure Laterality Date ??? [...] hernia repairs.(Left without mesh in 1963) ??? Repair recurr inguin rajendra, reducibl 03/10/2011 HERNIA REPAIR, INGUINAL, RECURRENT performed by NOREEN BOWIE at [facility] MAIN OR ??? Thyroidectomy=substernal, transcerv 11/30/2011 THYROIDECTOMY, INCL. SUBSTERNAL, CERVICAL APPROACH performed by FRANK MAC at [facility] MAIN OR ??? Somatosensory test, any/all per. nerves, trunk or head 11/30/2011 FACIAL NERVE MONITORING, SETUP performed by FRANK MAC at [facility] MAIN OR ??? Upper gi endoscopy, exam 01/29/2012 UPPER GI ENDOSCOPY performed by VICKI SON at [facility] ENDOSCOPY ??? Lung cancer surgery Partial removal of R lung ??? Total knee arthroplasty 06/19/2012 @TOTAL KNEE ARTHROPLASTY performed by ADAM CARRERO at [facility] MAIN OR ??? Colonoscopy, remv lesn, snare 01/06/2013 COLONOSCOPY, POLYPECTOMY, REMOVAL LESION BY SNARE performed by Josh Jeffery MD at [facility] ENDOSCOPY Allergies Allergen Reactions ??? [...] smoked too much, heart problems. Social History: [place]. 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 Single. Five children and sevengrandkids. One daughter with viral respiratory problems. 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 Used to play basketball. No alcohol. Advance Directives: Completed. See advance care planning note. Interim History: Mr Mina reports that he is doing well at this time. Since he was seen in radiation oncology a year ago he had repair of a left shoulder rotator cuff tear and was treated for a new skin cancer. Hehas otherwise been doing well. He just returned from a three week vacation in [place]. He continues to work 5-6 days a week and has been able to tolerate the activity well. He denies urinary problems at this time. His IPSS score is 5. He is reports being delighted with his overall urinary status. International Prostate Symptom Score Total Score__5_ 0 [...] He prevents constipation with the use of daily miralax which has been very effective. He denies hematochezia, melena, constipation and diarrhea. He denies abdominal discomfort. He is not sexually active at this time. His BERNADINE score is 8 indicati ng moderate ED. He does not want any intervention for this He reports that his respiratory symptoms are stable. He denies shortness of breath, no dyspnea, + occ cough, no Hemoptysis. He had a follow up chest XR in November which was negative. Review of Systems Constitutional: Positive for fatigue. Negative for fever, chills, appetite change and unexpected weight change. Remains active -- [...] of day--none in am Gastrointestinal: Negative for nausea, abdominal pain, diarrhea, constipation, blood in stool, abdominal distention, anal bleeding and rectal pain. Went back to miralax and that is working very well for bowel function Genitourinary: Negative for dysuria, urgency, frequency, hematuria, decreased urine volume, difficulty urinating and testicular pain. See IPSS and interim history Musculoskeletal: Positive for arthralgias. Negative for neck stiffness. Skin: Regular follow up with Dr Jackson in dermatology--treated for a basal cell cancer earlier this year. Bob--dermatology--next appointment in April Neurological: Negative. Negative for dizziness, weakness, light-headedness and headaches. Hematological: Negative. Psychiatric/Behavioral: Negative. Negative for sleep disturbance. KPS: 100 Vitals Follow-Up from 04/08/2015 in [facility] Radiation Oncology Weight - Scale 71.895 kg (158 lb 8 oz) Temp 36.5 ??C (97.7 ??F) Temp Source Oral Heart Rate 61 Heart Rate Source Right, NIBP Resp 18 BP 129/53 mmHg BP Location Right arm Patient Position Sitting SpO2 99 % Objective: Physical Exam Constitutional: He is [...] is no rebound and no guarding. Genitourinary: Rectal--deferred Musculoskeletal: Normal range of motion. He [...] He has no axillary adenopathy. Right: No supraclavicular adenopathy present. Left: No supraclavicular adenopathy present. Neurological: He is alert and oriented to person, place, and time. He exhibits normal muscle tone. Coordination normal. Skin: Skin is warm and dry. No rash noted. He is not diaphoretic. No erythema. No pallor. Areas of ecchymosis left upper extremity Sun damaged skin AK forearm Psychiatric: He has a normal mood and affect. His behavior is normal. Judgment and thought content normal. Vitals reviewed. Laboratory Studies: date PSA Testosterone 03/17/2015 0.3 04/07/2014 0.30 09/29/2013 0.36 698 [...] Plan: Mr Mina is a very pleasant 74 year old man with Adenocarcinoma of the prostate. [id number], Sofy 4+3, left lobe involved. OLGA (-), PSA of 5.4 Mr Mina was treated with external beam radiation under RTOG protocol and received 79.2 Gy completed on 04/12/2007 with no concurrent ADT. Mr Mina PSA remains at this sukumar indicating excellent response to treatment with J[facility] [...] [facility]STIANO HEN[facility]DERMAT OLOGY [place], [place] [address] (Wo rk) 10/16/2022 Office Visit Otolaryngology Frank Buchanan MD [facility] OTOLARYNGOLOGY D EPT. [place], [place] [address] (Wo rk) 11/29/2022 Appointment Hematology and Oncology 11/29/2022 Office Visit Radiation Oncology Emerald Leyva APRN [facility] RADIATION ONCOLO GY [place], [place] [address] (Wo rk) documented as of this encounter Results PSA (04/06/2016 12:36 PM EDT) P athologist Signature PSA Total 0.20 0.00 - [facility] (Ultrasensitiv 4.00 ng/mL [facility] LABORATORY Specimen Anatomical Collection Method Collection Time Receive d Time (Source) Location / / Volume Laterality Blood specimen 04/06/2016 12:36 6 (specimen) PM EDT 12:42 PM EDT Resulting Agency Comment Spec In Lab Trino Allen MD CHEMISTRY ORDERABLES Performing Organization Address City/State/ZIP [place] [address] documented in this encounter Visit Diagnoses Diagnosis Malignant neoplasm of prostate documented in this encounter Care Teams Revenue Officer Relationship Specialty Start Date End Date Giorgio Cardona MD PCP - General 10/04/10 04/10/17 [facility] GENERAL INTERNAL [place] [address] documented as of this encounter
--- OUTSIDE RECORDS SUMMARY | 2022-10-09 16:16 | XMS_ITS | Encounter Summary ---
:1940 Author Organization [facility] Address [facility] [place] [address] Care Team Providers Name Role Phone Giorgio Cardona MD Primary Care Provider Encounter Details Date Type Department Care Team Description 12/25/2013 Telephone Orthopaedics at [facility] Alessio Quezada MD [facility] [place] [address] ORTHOPAEDIC SURGERY [phone] [place], [place] [address] (Wo rk) Social History Tobacco Use Types Packs/Day Years Used Date Smoking Tobacco: Never Smokeless Tobacco: Never Alcohol Use Standard Drinks/Week Comments Yes 0 (1 standard drink = 0.6 oz pure alcoho l) RARE Sex Assigned at Date Recorded Not on file documented as of this encounter Miscellaneous Notes Telephone Encounter - Guillermina Toro RN - 12/25/2013 11:49 AM EST Returned call to patient, instructed that since he is having his surgery in [place] he should ask his surgeon as he is not having the procedure performed at [facility]. Patient verbalized understaning. Telephone Encounter - Tracy Milan - 12/25/2013 10:57 AM EST Patient had a right TKA 06/19/12. He is scheduled to have shoulder surgery on 01/19/14 through another office and he is wondering if he needs to do anything special because of his prior TKA. Please call patient at [phone]. documented in this encounter Plan of Treatment Upcoming Encounters Date Type Specialty Care Team Description 10/11/2022 Office Visit Dermatology Virgilio Mckeon MD [facility] DR CHRISTIANO HENSON-DERMAT OLOGY [place], [place] [address] (Wo rk) 10/16/2022 Office Visit Otolaryngology Frank Buchanan MD [facility] OTOLARYNGOLOGY Sarah EPT. [place], [place] [address] (Wo rk) 11/29/2022 Appointment Hematology and Oncology 11/29/2022 Office Visit Radiation Oncology Emerald Leyva APRN [facility] RADIATION ONCOLO GY [place], [place] [address] (Wo rk) documented as of this encounter Visit Diagnoses Not on filedocumented in this encounter Care Teams Director Of Institutional Giving Relationship Specialty Start Date End Date Giorgio Cardona MD PCP - General 10/04/10 04/10/17 [facility] GENERAL [place] [address] documented as of this encounter
--- OUTSIDE RECORDS SUMMARY | 2022-10-09 16:16 | XMS_ITS | Encounter Summary ---
:1940 Author Organization [facility] [place] [address] Care Team Providers Name Role Phone Giorgio Cardona MD Primary Care Provider Reason for Visit Reason Onset Date Comments Medication Refill 01/12/2014 Encounter Details Date Type Department Care Team Description 01/12/2014 Refill Orthopaedics at [facility] Fawad Diaz, H/O arthroplasty [facility] Sarah SANTANA (Primary Dx) [place] [address] [facility] [phone] ORTHOPAEDIC SURG [place], [place] [address] (Wo rk) Social History Tobacco [...] [facility] DR CHRISTIANO HENSON-DERMAT OLOGY [place], [place] [address] (Wo rk) 10/16/2022 Office Visit Otolaryngology Frank Buchanan MD [facility] OTOLARYNGOLOGY D EPT. [place], [place] [address] (Wo rk) 11/29/2022 Appointment Hematology and Oncology 11/29/2022 Office Visit Radiation Oncology Emerald Leyva APRN [facility] RADIATION ONCCESAR GY [place], [place] [address] (Wo rk) documented as of this encounter Visit Diagnoses Diagnosis H/O arthroplasty - Primary Personal history of surgery to other org ans documented in this encounter Care Teams Government Property Inspector Relationship Specialty Start Date End Date Giorgio Cardona MD PCP - General 10/04/10 04/10/17 [facility] GENERAL [place] [address] documented as of this encounter
--- OUTSIDE RECORDS SUMMARY | 2022-10-09 16:16 | XMS_ITS | Encounter Summary ---
:1940 Author Organization [facility] [place] [address] Care Team Providers Name Role Phone Giorgio Cardona MD Primary Care Provider Reason for Visit Reason Comments Medication Refill Encounter Details Date Type Department Care Team Description 11/01/2013 Refill Internal Medicine at [facility] Cardona MD Hypertension (Primary [facility] Dx) [facility] [address] [place] [address] MEDICINE [phone] [place], [place] [address] (Wo rk) Social History Tobacco [...] [facility] CHRISTIANO HENSON-DERMAT OLOGY [place], [place] [address] (Wo rk) 10/16/2022 Office Visit Otolaryngology Frank Buchanan MD [facility] OTOLARYNGOLOGY Sarah EPT. [place], [place] [address] (Wo rk) 11/29/2022 Appointment Hematology and Oncology 11/29/2022 Office Visit Radiation Oncology Emerald Leyva APRN [facility] RADIATION ONCOLO [place], [place] [address] (Wo rk) documented as of this encounter Visit Diagnoses Diagnosis Hypertension - Primary Unspecified essential hypertension documented in this encounter Care Teams Lumber Inspector Relationship Specialty Start Date End Date Giorgio Cardona MD PCP - General 10/04/10 04/10/17 [facility] [place] [address] documented as of this encounter
--- OUTSIDE RECORDS SUMMARY | 2022-10-09 16:16 | XMS_ITS | Encounter Summary ---
:1940 Author Organization [facility] [place] [address] Care Team Providers Name Role Phone Giorgio Cardona MD Primary Care Provider Reason for Visit Reason Comments Follow-up Encounter Details Date Type Department Care Team Description 11/26/2014 Follow-Up Internal Medicine at Deandre Cardona MD Dyslipidemia; [facility] Gastroesophageal reflux dise ase without esophagitis; [facility] Essential hypertension; [facility] GENERAL INTERNAL Impaired fasting glucose; [place], [place] MEDICINE Malignant neoplasm of lung, unspecified laterality, unspecified part of lung; [id number] [place] [address] Multinodular goiter; [phone] Pancreatic cyst ; (Work) Prostate cancer; Anxiety; Cough, persiste nt; Vitamin D defic iency Social History Tobacco Use Types Packs/Day Years Used Date Smoking Tobacco: Never Smokeless Tobacco: Never Alcohol Use Standard Drinks/Week Comments Yes 0 (1 standard drink = 0.6 oz pure alcoho l) RARE Sex Assigned at Date Recorded Not on file documented as of this encounter Last Filed Vital Signs Vital Sign Reading Time Taken Comments Blood Pressure 121/63 11/26/2014 8:55 AM EST Pulse 58 11/26/2014 8:55 AM EST Temperature - - Respiratory Rate - - Oxygen Saturation 98% 11/26/2014 8:55 AM EST Inhaled Oxygen Concentration - - Weight 73 kg (161 lb) 11/26/2014 8:55 AM EST Height 161.5 cm (5' 3.58) 11/26/2014 8:55 AM EST Body Mass Index 28 11/26/2014 8:55 AM EST documented in this encounter Patient Instructions Patient InstructionsBaGiorgio luciano MD - 11/26/2014 9:24 AM EST Need records of pneumonia booster bloodwork Need copy of advanced directives/living will Think about shingles - call insurance [employer] proventil inhaler if needed for cough/wheeze documented in this encounter Progress Notes Giorgio Cardona MD - 11/26/2014 9:17 AM EST Established Patient Follow-up Visit History of Presenting Illness: Patient here to followup on acute and chronic medical issues Had a cold - put on zpak put on prednisone. This was in [facility] in clinic. Off prednisone - cough is better. Still tickling but much improved. Some wheezing Overall feeling well - we reviewed his other medical problems Patient reported measures in the past 7 days Pain:1 Physical Health:Good Mental Health: Patient Active Problem List Diagnosis ??? History of squamous cell carcinoma ??? [...] features. 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 [id number]; KRAS negative, EGFR negative --09/2010: CT scan - normal --02/2011: CT scan --09/2011: CT scan - negative annual CT's afterwards Outpatient Encounter Prescriptions as of 11/26/2014 Medication Sig Dispense Refill ??? omeprazole (PRILOSEC) [...] mouth every morning. 30 tablet 12 ??? albuterol (PROVENTIL HFA;VENTOLIN HFA) 90 mcg/actuation HFA Aerosol Inhaler Inhale 2 puffs into the lungs every 4 hours as needed for Wheezing. Use with spacer 1 Inhaler 1 No facility-administered encounter medications on file as of 11/26/2014. History Social History ??? Marital Status: Single [...] - (- )SOB, NIEVES ( +)cough, sputum (- )wheezing HEENT - ( -) [...] rest or with movement Objective Filed Vitals: 11/26/14 0855 BP: 121/63 Pulse: 58 Height: 161.5 cm (5' 3.58) Weight: 73.029 kg (161 lb) SpO2: 98% Gen -no acute distress. Alert, [...] arm swing Assessment/Plan: 1. Post-nasal drip/allergic rhinitis Continues to be a problem. Not using claritin. Thinks it is diet related Declines nasal spray 2. Hyperthyroidism s/p radioactive iodine 3. Goiter causing ? anatomical obstruction --continue to monitor biochemical parameters 4. DJD Knee --much improved s/p TKA. Very pleased with results. 5. S/p Mitral Regurgitation --reviewed echo in 2013 - suggest repeating in 2015. 6. Depression/Insomnia --now pretty good considering not working. 7. Lung Cancer --recent CT scan 07/2014 satisfactory 8. Pancreatic Lesion --last MRI was in March 2013 - recommendation was stability and hence no need for further f/u. 9. GERD Controlled with dietary modification 10. Prostate Cancer Last saw Rad onc in March 2014 11. Hypertension Hypertension Plan of Care [X] Stable and controlled: continue current medications as prescribed [ ] Uncontrolled: change medication as follows: [ ] Life style modifications discussed: weight loss, low salt diet, exercise and moderation of alcohol intake [ ] Return for assessment in This plan of care was made in collaboration with the patient/family 13. Dyslipidemia Recheck labs 14. Preventative --await records for pcv13. --think about shingles 15. Cough --suggest cxr today. May need some inhalers temporarily Patient Instructions: Patient Instructions Need records of pneumonia booster bloodwork Need copy of advanced directives/living will Think about shingles - call insurance [employer] proventil inhaler if needed for cough/wheeze I counselled the patient on the above [...] by one of my nurses, letter, or [facility]. Next Appointment: Return in about 6 months (around 2015) for f/u. Orders placed in this Encounter: Orders Placed This Encounter Procedures ? ? XR chest routine PA & lateral Standing Status: Future Number of Occurrences: Standing Expiration Date: 11/26/2015 Order Specific Question: Where will study be performed? Answer: [facility] Order Specific Question: Portable exam? Answer: No Order Specific Question: Reason for exam and clinical history: Answer: cough Order Specific Question: Stat read required? Answer: No ??? CBC (with Diff) Standing Status: Future Number of Occurrences: Standing Expiration Date: 01/25/2015 ??? Comprehensive metabolic panel (non-fasting) Standing Status: Future Number of Occurrences: Standing Expiration Date: 01/25/2015 ??? Hemoglobin A1c Standing Status: Future Number of Occurrences: Standing Expiration Date: 01/25/2015 ??? Folate, serum Standing Status: Future Number of Occurrences: Standing Expiration Date: 01/25/2015 ??? Vitamin B12 Standing Status: Future Number of Occurrences: Standing Expiration Date: 01/25/2015 ??? VIT D Total Evaluation Standing Status: Future Number of Occurrences: Standing Expiration Date: 01/25/2015 ??? TSH Standing Status: Future Number of Occurrences: Standing Expiration Date: 01/25/2015 ??? T4, free Standing Status: Future Number of Occurrences: Standing Expiration Date: 01/25/2015 ??? Lipid panel (fasting) Standing Status: Future Number of Occurrences: Standing Expiration Date: 01/25/2015 Laboratory Studies Recent Results (from the past 72 hour(s)) SURGICAL PATHOLOGY REPORT Result Value Range Surgical Pathology Final Report Value: [facility] Provider: BRADLEY CONRAD III Pt. Name: KATLIN MINA Acc #: [id number] Pt. Col Date: 11/23/2014 /Sex: 1940,(74 years),Male Rec Date: 11/23/2014 LOC: [facility] SURGICAL PATHOLOGY ---Pathologic Diagnosis--- A - Skin, right mid lateral back, shave biopsy: Basal cell carcinoma, superficial type, extending to both peripheral margins. 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 CR-0 11/24/14 ANW 11/24/14 Verified by: Vanessa GALINDO, Bennett Smith Dermatopathologist (Electronic Signature) The attending pathologist whose signature appears on this report has reviewed all diagnostic slides and has edited the gross and/or edith roscopic portion of the report in rendering the final pathologic diagnosis. ---Gross Description--- A - Labeled/Fixative: A, formalin. Quantity/Size: Single, 0.9 x 0.8 x 0.1 cm. Tissue Description: Shave of white skin. Sections/Processing: Inked and trisected. (T1) B - Labeled/Fixative: B, formalin. Quantity/Size: Single, 0.7 x 0.6 x 0.1 cm. Tissue Description: Shave of white skin with a 0.5 cm white papule. Sections/Processing: Inked and trisected. (T1) sns ---Clinical Information--- Specimen Submitted: A - Skin, right mid lateral back, shave (1) B - Skin, left posterior ankle, shave (1) Clinical History: A - 5 mm erythematous lesion with pruritus B - 4 mm pink papule with history of irritation Clinical Diagnosis: A - AK, rule out BCC [facility] Provider: BRADLEY CONRAD III Pt. Name: KATLIN MINA Acc #: [id number] Pt. Col Date: 11/23/2014 /Sex: 1940,(74 years),Male Rec Date: 11/23/2014 LOC: [facility] B - SK, rule out BCC documented in this encounter Miscellaneous Notes Addendum Note - Yane Arriaga - 11/26/2014 9:47 AM EST Addended by: YANE ARRIAGA on: 11/26/2014 09:47 AM Modules accepted: Orders documented in this encounter Plan of Treatment Upcoming Encounters Date Type Specialty Care Team Description 10/11/2022 Office Visit Dermatology Virgilio Mckeon MD [facility] DR CHRISTIANO HENSON-DERMAT OLOGY [place], [place] [address] (Wo rk) 10/16/2022 Office Visit Otolaryngology Frank Buchanan MD [facility] OTOLARYNGOLOGY D EPT. [place], [place] [address] (Wo rk) 11/29/2022 Appointment Hematology and Oncology 11/29/2022 Office Visit Radiation Oncology Emerald Leyva APRN [facility] RADIATION ONCCESAR GY [place], [place] [address] (Wo rk) documented as of this encounter Procedures Procedure Name Priority Date/Time Associated Diagnosis Comme nts HEMOGRAM Routine 11/26/2014 10:02 Essential Results for this AM EST hypertension procedure are i n the results section. DIFFERENTIAL, Routine 11/26/2014 10:02 Essential Results fo r this AUTOMATED AM EST hypertension procedure are i n the results section. VITAMIN D, 25-HYDROXY Routine 11/26/2014 10:02 Vitamin D defic iency Results for this AM EST procedure are i n the results section. CBC (WITH DIFF) Routine 11/26/2014 10:02 Essential AM EST hypertension TSH Routine 11/26/2014 10:02 Essential Results for this AM EST hypertension procedure are i n the results section. T4, FREE Routine 11/26/2014 10:02 Essential Results for this AM EST hypertension procedure are i n the results section. HEMOGLOBIN A1C Routine 11/26/2014 10:02 Impaired fasting Resul ts for this AM EST glucose procedure are i n the results section. FOLATE, SERUM Routine 11/26/2014 10:02 Essential Results fo r this AM EST hypertension procedure are i n the results section. VITAMIN B12 Routine 11/26/2014 10:02 Essential Results for this AM EST hypertension procedure are i n the results section. LIPID PANEL (REFLEX Routine 11/26/2014 10:02 Essential Resu lts for this DIRECT LDL) AM EST hypertension procedure are i n the results section. COMPREHENSIVE Routine 11/26/2014 10:02 Essential Results fo r this METABOLIC PANEL AM EST hypertension procedure ar e in (NON-FASTING) the results section. documented in this encounter Results Differential, Automated (11/26/2014 10:02 AM EST) P athologist Signature Neutrophils % 60.2 % CERNER MILLENNIUM Neutr Abs (ANC) 3.15 1.50 - CERNER 6.30 MILLENNIUM x10(3)/mcL Lymphocytes % 22.9 % CERNER MILLENNIUM Lymphocytes Abs 1.2 1.0 - 3.6 CERNER x10(3)/mcL MILLENNIUM Monocytes % 13.6 % CERNER MILLENNIUM Monocyte Abs 0.7 0.2 - 1.0 CERNER x10(3)/mcL MILLENNIUM Eosinophils % 2.3 % CERNER MILLENNIUM Eosinophils Abs 0.1 0.0 - 0.5 CERNER x10(3)/mcL MILLENNIUM Basophils % 0.4 % CERNER MILLENNIUM Basophils Abs 0.0 0.0 - 0.2 CERNER x10(3)/mcL MILLENNIUM Immature Gran % 0.60 % CERNER MILLENNIUM Comment: Immature granulocytes(IG's)percentage an d absolute count will include metamyelocytes, myelocytes, and promyelo cytes. Blood smears from CBCs yielding IG's will be scanned manually for concor dance. If this scan disagrees with the automated IG or if promyelocytes are not ed, a manual differential will be performed. Becki Gran Abs 0.03 0.00 - 0.05 x10(3)/mcL CER NER MILLENNIUM Specimen Anatomical Collection Method Collection Time Receive d Time (Source) Location / / Volume Laterality Blood specimen 11/26/2014 10:02 5 (specimen) AM EST 10:11 AM EST Resulting Agency Comment Spec In Lab Giorgio Cardona MD HEMATOLOGY ORDERABLES Performing Organization Address City/[facility]/[place] [address] CERNER MILLENNIUM (ABNORMAL) Hemogram (11/26/2014 10:02 AM EST) P athologist Signature WBC 5.2 4.0 - 10.0 CERNER x10(3)/mcL MILLENNIUM RBC 4.35 (L) 4.63 - CERNER 6.08 MILLENNIUM x10(6)/mcL Hemoglobin 14.5 13.7 - CERNER 17.5 gm/dL MILLENNIUM Hematocrit 42.7 40.0 - CERNER 51.0 % MILLENNIUM MCV 98.2 (H) 79.0 - CERNER 92.0 fL MILLENNIUM MCH 33.3 (H) 25.6 - CERNER 32.2 pg MILLENNIUM MCHC 34.0 32.0 - CERNER 36.5 gm/dL MILLENNIUM Platelets 187 145 - 370 CERNER x10(3)/mcL MILLENNIUM RDWSD 50.8 (H) 35.0 - CERNER 46.0 fL MILLENNIUM RDWCV 14.2 10.9 - CERNER 14.4 % MILLENNIUM MPV 11.5 9.0 - 12.0 CERNER fL MILLENNIUM Specimen Anatomical Collection Method Collection Time Receive d Time (Source) Location / / Volume Laterality Blood specimen 11/26/2014 10:02 5 (specimen) AM EST 10:11 AM EST Resulting Agency Comment Spec In Lab Giorgio Cardona MD HEMATOLOGY ORDERABLES Performing Organization Address City/[facility]/[place] [address] CERNER MILLENNIUM (ABNORMAL) Lipid panel (fasting) (11/26/2014 10:02 AM EST) athologist Signature Chol, Total 209 (H) <=199 CERNER mg/dL [facility] Comment: Recommendations of the NCEP Adult Treatm ent Panel for the following risk cutoff thresholds for the [place] popul[place] n: Desirable: <200 mg/dL Borderline High: 200-239 mg/dL High: > or = 240 mg/dL Triglycerides 91 <=149 mg/dL CEREVA [facility] Comment: Reference Range: Normal triglycerides: ??<150 mg/dL Borderline high: ??150-199 mg/dL High: ??200-499 mg/dL Very high: ??>lt=929 mg/dL KENDRA 2001; [phone](19):[phone] HDL 73 >=40 mg/dL [facility] Comment: Reference range: ??Low HDL: ?? < 40 mg/dL ??Normal: ?40-60 mg/dL ??Desirable: > 60 mg/dL KENDRA 2001; 285(19):[phone] LDL Cholesterol 118 (H) <=99 mg/dL [facility] Comment: Reference range: ?? Optimal: ?<100 mg/dL ?? Near Optimal/Above Optimal: ?? 100-1 29 mg/dL ?? Borderline high: ?130-159 mg/dL ?? High: ? 160-189 mg/dL ?? Very high: ?>yj=883 mg/dL KENDRA 2001: [phone]):[phone] Chol/HDL Ratio 2.9 ratio [facility] Comment: A Cholesterol to HDL ratio below 4:1 is desirable. ??Studies suggest that increased CAD risk occurs at ratios abov e 5 for females and above 6 for men. ? [place] Heart Association ??(htt p://www.americanheart.org) ? Anay Int Med, 1994; 121:641 ? AM J Med, 1998; 105(1A):48S Specimen Anatomical Collection Method Collection Time Receive d Time (Source) Location / / Volume Laterality Blood specimen 11/26/2014 10:02 5 (specimen) AM EST 10:11 AM EST Resulting Agency Comment Spec In Lab Giorgio Cardona MD CHEMISTRY ORDERABLES Performing Organization Address City/[facility]/ZIP Code Phon e Number [address] CERNER MILLENNIUM T4, free (11/26/2014 10:02 AM EST) P athologist Signature Free T4 1.68 0.93 - 1.70 CERNER ng/dL MILLENNIUM Specimen Anatomical Collection Method Collection Time Receive d Time (Source) Location / / Volume Laterality Blood specimen 11/26/2014 10:02 5 (specimen) AM EST 10:11 AM EST Resulting Agency Comment Spec In Lab Giorgio Cardona MD CHEMISTRY ORDERABLES Performing Organization Address City/[facility]/ZIP Code Phon e Number [address] CERNER MILLENNIUM TSH (11/26/2014 10:02 AM EST) P athologist Signature TSH 1.73 0.27 - 4.20 CERNER mcIU/mL MILLENNIUM Specimen Anatomical Collection Method Collection Time Receive d Time (Source) Location / / Volume Laterality Blood specimen 11/26/2014 10:02 5 (specimen) AM EST 10:11 AM EST Resulting Agency Comment Spec In Lab Giorgio Cardona MD CHEMISTRY ORDERABLES Performing Organization Address City/[facility]/ZIP Code Phon e Number [address] CERNER MILLENNIUM VIT D Total Evaluation (11/26/2014 10:02 AM EST) P athologist Signature 25-OH Vit D 35 30 - 100 CERNER Total ng/mL MILLENNIUM Comment: Deficient <10 ng/mL Insufficient 10 to 29 ng/mL Sufficient 30 to 100 ng/mL Potential Intoxication >100 ng/mL According to the [place] National Osteoporosi s Foundation, Vitamin D concentrations >30 ng/mL are sufficient to protect bone health. ??The National Kidney Foundation has similarly stated that pat ients with Vitamin D concentrations <30ng/mL should be considered to be insu fficient or deficient. http://Location/DHMCnatlkidneyfoundat ion http://Location/DHMCVitD The [employer] Vitamin D Immunoassay detec ts both 25-OH Vitamin D2 and 25-OH Vitamin D3, but only a total Vitamin D c oncentration is reported. Specimen Anatomical Collection Method Collection Time Receive d Time (Source) Location / / Volume Laterality Blood specimen 11/26/2014 10:02 5 (specimen) AM EST 10:11 AM EST Resulting Agency Comment Spec In Lab Giorgio Cardona MD CHEMISTRY ORDERABLES Performing Organization Address City/[facility]/ZIP Code Phon e Number [address] CERNER MILLENNIUM Vitamin B12 (11/26/2014 10:02 AM EST) P athologist Signature Vitamin B-12 420 207 - 974 CERNER pg/mL MILLENNIUM Specimen Anatomical Collection Method Collection Time Receive d Time (Source) Location / / Volume Laterality Blood specimen 11/26/2014 10:02 5 (specimen) AM EST 10:11 AM EST Resulting Agency Comment Spec In Lab Giorgio Cardona MD CHEMISTRY ORDERABLES Performing Organization Address City/[facility]/[place] [address] CERNER MILLENNIUM Folate, serum (11/26/2014 10:02 AM EST) P athologist Signature Folate Lvl 13.3 4.6 - 34.8 CERNER ng/mL MILLENNIUM Specimen Anatomical Collection Method Collection Time Receive d Time (Source) Location / / Volume Laterality Blood specimen 11/26/2014 10:02 5 (specimen) AM EST 10:11 AM EST Resulting Agency Comment Spec In Lab Giorgio Cardona MD CHEMISTRY ORDERABLES Performing Organization Address City/[facility]/ZIP Code Phon e Number [address] MARIAMA [facility] (ABNORMAL) Hemoglobin A1c (11/26/2014 10:02 AM EST) Analysis Performed At [facility] Time Signature Hemoglobin A1C 6.1 (H) <=5.6 % [facility] Comment: Reference Range: 4.3 - 5.6% 5.7 [...] S67-74 Est Avg Gluc See note mg/dL [facility] Comment: Estimated Average Glucose not appropriat e [...] with hemoglobinopathies. Additional resources are available on ADA website: http://Location/DHMCadacalc Eliot FAJARDO, Abhishek J, Denisse R, et al. ??Tr anslating the A1C assay into estimated average glucose values. ??Diabetes Care 2008:31(8):8126-2873. Specimen Anatomical Collection Method Collection Time Receive d Time (Source) Location / / Volume Laterality Blood specimen 11/26/2014 10:02 5 (specimen) AM EST 10:11 AM EST Resulting Agency Comment Spec In Lab Giorgio Cardona MD CHEMISTRY ORDERABLES Performing Organization Address City/State/ZIP Code Phon e Number [place] [id number] CERNER MILLENNIUM (ABNORMAL) Comprehensive metabolic panel (non-fasting) (11/26/2014 10:02 AM EST) P athologist Signature Glucose Lvl 108 60 - 199 CERNER mg/dL MILLENNIUM Comment: Diabetes: >=200 mg/dL plus symp toms BUN 22 (H) 10 - 20 mg/dL CERNER MILLENNIU M Creatinine 0.99 0.80 - 1.50 mg/dL CERNER MILL ENNIUM Comment: Please note that the pediatric reference intervals supplied above were not validated at [facility]. Results from pediatri c patients should be interpreted in conjunction to the patient's age, height and muscle mass. Sodium 141 135 - 145 mmol/L CERNER PATRICK NIUM Potassium 4.6 3.5 - 5.0 mmol/L CERNER PATRICK NIUM Comment: Please note: ??Patients with WBC >100,00 0 may have falsely elevated Potassium levels. ??For accurate Potassium quantif ication in these patients send serum separator tube (gold top) for subsequent determinations. ??Contact the Clinical Chemistry Laboratory if there are any qu estions. Chloride 101 98 - 107 mmol/L CERNER MILLENN IUM CO2 29 22 - 31 mmol/L CERNER MILLENNI UM Anion Gap 11 5 - 15 mmol/L CERNER MILLENNIU M Calcium 8.7 8.5 - 10.5 mg/dL CERNER PATRICK NIUM Total Protein 6.6 6.4 - 8.3 gm/dL CERNER MIL LENNIUM Albumin 3.7 3.2 - 5.2 gm/dL CERNER MILLENN IUM AST 16 0 - 39 unit/L CERNER MILLENNIU M ALT 9 0 - 55 unit/L CERNER MILLENNIU M Alk Phos 63 40 - 120 unit/L CERNER MILLENN IUM Total Bilirubin 0.4 0.2 - 1.3 mg/dL MARIAMA Pugh ILLENNIUM Bili, Direct 0.1 0.0 - 0.3 mg/dL MARIAMA DAMON ENNIUM Estimated GFR >60 >=60 MARIAMA MCKEEU Lexy Comment: This estimated GFR (eGFR) value was [...] the following links into your internet browser. http://Location/DHnkdep http://Location/DHMCnkf Specimen Anatomical Collection Method Collection Time Receive d Time (Source) Location / / Volume Laterality Blood specimen 11/26/2014 10:02 5 (specimen) AM EST 10:11 AM EST Resulting Agency Comment Spec In Lab Giorgio Cardona MD CHEMISTRY ORDERABLES Performing Organization Address City/State/[place] [address] MARIAMA WOODIUM XR chest routine PA & lateral (11/26/2014 [...] hypertension Impaired fasting glucose Malignant neoplasm of lung, unspecified laterality, unspecified part of lung Multinodular goiter Nontoxic multinodular goiter Pancreatic cyst Cyst and pseudocyst of pancreas Prostate cancer Malignant neoplasm of prostate Anxiety Anxiety state, unspecified Cough, persistent Cough Vitamin D deficiency Unspecified vitamin D deficiency Cough, persistent Cough documented in this encounter Care Teams Scientist Electronics Relationship Specialty Start Date End Date Giorgio Cardona MD PCP - General 10/04/10 04/10/[address] [facility] [address] [place] [address] documented as of this encounter
--- OUTSIDE RECORDS SUMMARY | 2022-10-09 16:16 | XMS_ITS | Encounter Summary ---
:1940 Author Organization [facility] Address [facility] [place] [address] Care Team Providers Name Role Phone Giorgio Cardona MD Primary Care Provider Reason for Visit Reason Comments Skin Check Concerning spots Encounter Details Date Type Department Care Team Description 11/23/2014 Office Visit Dermatology at [facility] Rigoberto Jackson eoplasm of unspecified nature of bone, soft tissue, and skin; Emilia VELEZ MD Skin lesion of left leg; [address] [facility] Skin lesion of back; [place] [address] [address] [address] MOBLEY (seborrheic keratosis); [phone] [facility] Maloney angioma -DERMATOLGY [place], [place] [address] Social History Tobacco Use Types Packs/Day Years Used Date Smoking Tobacco: Never Smokeless Tobacco: Never Alcohol Use Standard Drinks/Week Comments Yes 0 (1 standard drink = 0.6 oz pure alcoho l) RARE Sex Assigned at Date Recorded Not on file documented as of this encounter Patient Instructions Patient InstructionsSandy Mendiola, SAMPLE CARRIER - 11/23/2014 9:25 AM EST ABOUT YOUR TREATMENTS Your Treatment today: You had a biopsy of your skin (removal of a small piece of tissue for examination under microscope).You had a shave biopsy and do not have sutures. Location of your biopsy: Right back and left ankle. Keep in mind the location of your biopsy site in case further treatment is necessary. Wound care Instructions: 1. Keep wound dry and covered for 24 hours then clean area with soap and water. 2. Pat dry completely 3. Cover with Vaseline and a new bandage daily, do this everyday until the wound is healed Please call [phone] if you have questions or concerns. * Please allow one or two weeks for the biopsy results to return. *Based on your biopsy results we will either call you or send you a letter with the results. *If in two weeks, you have not heard from us, please feel free to call and request your biopsy results. documented in this encounter Progress Notes Sandy Mendiola CMA - 11/23/2014 8:32 AM EST Images from the original note were not included. DERMATOLOGY ESTABLISHED PATIENT CLINIC NOTE Date of service: 11/23/2014 Katlin Mina : 1940 Provider: Rigoberto Jackson MD PROBLEM: Waist up skin cancer screening. SKIN HISTORY: Seborrheic keratosis PATIENT SCREENING QUESTION Defibrillator/Pacemaker: No DO YOU HAVE ARTIFICIAL JOINTS? Yes, Right TNR. Heart Valves: No Blood Thinners: No Prophylactic Antibiotics: Yes HPI Katlin Mina is a 74 y.o. year old male. Established patient, last seen on 08/12/[address] Angeles. New patient to me at the request of his brother Laz. Patient presents today for a waist up skin cancer screening. Patient states he has some spots on his back and one on his left ankle hewould like checked. He states he has had spots frozen in the past. Patient states he has recently had his thyroid removed but has no other skin concerns today. ADR: Allergies Allergen Reactions ??? Cyclobenzaprine Urinary retention, xerostomia ??? Lactose Other (See Comments) Sneezing Patient Active Problem List Diagnosis Code ??? 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 Actinic keratosis 702.0 Current Outpatient Prescriptions on File Prior to Visit Medication Sig Dispense Refill ??? omeprazole (PRILOSEC) [...] facility-administered medications on file prior to visit. ROS General: feeling well Skin: denies other skin complaints EXAM General: NAD, pleasant, cooperative Skin: Examination of skin from the waist up was performed. This includes examination of the skin of the face, ears, neck, chest, axillae, left and right upper extremities, hands, back, and abdomen. Also left ankle. Significant skin findings: A. Multiple 0.4-0.6cm brown papules with waxy, stuck-on appearance trunk and arms. Milia-like cysts,comedone-like openings and/or fissuring on dermoscopy located on back and right faith. B. Multiple 0.2-0.4cm bright red, well-demarcated papules located on stomach. C. 5 mm erythematous lesion with pruritis located on right lateral mid back. Photo taken and charted with patient consent D. 4 mm pink papule with history of irritation located on posterior left ankle. This has been present for a while, but is irriated and pt is concerned. Photo taken and charted with patient consent ASSESSMENT/PLAN: A. Seborrheic keratosis. Patient reassured benign in nature. B. Maloney Angioma(s). Patient reassured benign in nature. C. Actinic keratosis VS BCC. I discussed this condition with the patient and explored therapeutic options. I recommended a shave biopsy. Procedure: Skin biopsy by shave technique Location: Right lateral mid back. Discussed indications for procedure and expectations including risks and benefits. Verbal consent obtained. Skin prep with alcohol. Local anesthesia with 1% xylocaine, 1/100,000 epinephrine, 0.1 mEq/mLbicarbonate. A sample of the lesion was removed by shave technique to the level of the dermis and submitted to Pathology. Hemostasis obtained (AlCl and/or electrocautery). There were no complications; the pt. tolerated the procedure well. The wound was dressed. Post-procedure expectations, wound care and activity restrictions were reviewed. D. Dermatofibroma vs Seborrheic keratosis R/O BCC. I discussed this condition with the patient and explored therapeutic options. I recommended a shave biopsy. Procedure: Skin biopsy by shave technique Location: Posterior left ankle. Discussed indications for procedure and expectations including risks and benefits. Verbal consent obtained. Skin prep with alcohol. Local anesthesia with 1% xylocaine, 1/100,000 epinephrine, 0.1 mEq/mLbicarbonate. A sample of the lesion was removed by shave technique to the level of the dermis and submitted to Pathology. Hemostasis obtained (AlCl and/or electrocautery). There were no complications; the pt. tolerated the procedure well. The wound was dressed. Post-procedure expectations, wound care and activity restrictions were reviewed. Pt was premedicated with 2 grams of Keflex prior to the biopsies Follow up based on pathology results. RTC in six months for waist up skin cancer screening. Patient made appointment when exited. I am documenting this encounter acting as the scribe for and in the presence of Dr. Jackson.: Sandy Mendiola CMA I performed the above scribed service and agree with the accuracy of the documentation in this encounter. Rigoberto Jackson MD Section of Dermatology [facility] documented in this encounter Plan of Treatment Upcoming Encounters Date Type Specialty Care Team Description 10/11/2022 Office Visit Dermatology Virgilio Mckeon MD [facility] DR CHRISTIANO HENSON-DERMAT OLOGY [place], [place] [address] (Wo rk) 10/16/2022 Office Visit Otolaryngology Frank Buchanan MD [facility] OTOLARYNGOLOGY Sarah DE GUZMANT. [place], [place] [address] (Wo rk) 11/29/2022 Appointment Hematology and Oncology 11/29/2022 Office Visit Radiation Oncology Emerald Leyva APRN [facility] RADIATION ONCCESAR GY [place], [place] [address] (Wo rk) documented as of this encounter Procedures Procedure Name Priority Date/Time Associated Diagnosis Comme nts SPECIMEN TO Routine 11/23/2014 9:56 AM Neoplasm of Results f or this PATHOLOGY (NON-OR) EST unspecified nature pro cedure are in of bone, soft the results tissue, and skin section. SURGICAL PATHOLOGY Routine 11/23/2014 9:56 AM Res ults for this REPORT EST procedure are i n the results section. documented in this encounter Results Surgical Pathology Report (11/23/2014 9:56 AM EST) Component Value Ref Test Analysis Performed At [facility] gist Range Method Time Signature Surgical CERNER Pathology ? [facility][note 3] Report ? Provider: ?? GUILL III, RIGOBERTO Pt. Name: ?? MADISON AUSTIN, KATLIN Rodriguez ?A ? Acc #: ?[id number] ? Pt. ? Col Date: ?? 5 ? /Sex: ?1940,(74 years),Male ? Rec Date: ?? 11/23/2014 ? LOC: ?HDM ? SURGICAL PATHOLOGY ? ---Pathologic Diagnosis--- ? A - Skin, right mid lateral back, shave biopsy: ? Basal cell carc inoma, superficial type, extending to both peripheral ? margins. ? B - Skin, left posterior ankle, shave biopsy: ? Pale cell (clear cell) acanthoma. ? CR-0 ? 11/24/14 ? ANW ? 11/24/14 Verified by: ? Bennett Mendez MD ? Dermatopatholo gist ? (Electronic Si gnature) ? The attending pathologist whose signature appears o n this report has ? reviewed all diagnostic slides and has edited the uyen ss and/or ? microscopic portion of the report in rendering the fi nal pathologic ? diagnosis. ? ---Gross Description--- ? A - Labeled/Fixative: A, formalin. ? Quantity/Size: Single, 0.9 x 0.8 x 0.1 cm. ? Tissue Description: Shave of white skin. ? Sections/Processing: Inked and trisected. (T1) ? B - Labeled/Fixative: B, formalin. ? Quantity/Size: Single, 0.7 x 0.6 x 0.1 cm. ? Tissue Description: Shave of white skin with a 0.5 cm white papule. ? Sections/Processing: Inked and trisected. (T1) ??sns ? ---Clinical Information--- ? Specimen Submitted: ? A - Skin, right mid lateral back, shave (1) ? B - Skin, left posterior ankle, shave (1) ? Clinical History: ? A - 5 mm erythematous lesion with pruritus ? B - 4 mm pink papule with history of irritation ? Clinical Diagnosis: ? A - AK, rule out BCC ? [facility] ? Provider: ?? RIGOBERTO JACKSON III Pt. Name: ?? KATLIN BENJAMIN ?A ? Acc #: ?[id number] ? Pt. ? Col Date: ?? 5 ? /Sex: ?1940,(74 years),Male ? Rec Date: ?? 11/23/2014 ? LOC: ?HDM ? B - SK, rule out BCC Specimen (Source) Anatomical Collection Method Collection Time Re ceived Time Location / / Volume Laterality 11/23/2014 9:56 AM EST Rigoberto Jackson III, MD PATHOLOGY/CYTOLOGY ORDERABLE S Performing Organization Address City/State/[place] [address] [facility] Specimen to Pathology (NON-OR) (11/23/2014 9:56 AM EST) Specimen Anatomical Collection Method Collection Time Receive d Time (Source) Location / / Volume Laterality AP Specimen 11/23/2014 9:56 AM 201 5 9:56 EST AM EST Narrative MARIAMA MAST - 11/23/2014 9:[address] Specimen requisition ordered. ??Separate Pathology report to follow Rigoberto Jackson III, MD PATHOLOGY/CYTOLOGY ORDERABLE S Performing Organization Address City/State/ZIP Code Phon e Number [place] [id number] [facility] documented in this encounter Visit Diagnoses Diagnosis Neoplasm of unspecified nature of bone, soft tissue, and skin Skin lesion of left leg Unspecified disorder of skin and subcuta neous tissue Skin lesion of back Unspecified disorder of skin and subcuta neous tissue SK (seborrheic keratosis) Other seborrheic keratosis Maloney angioma Nevus, non-neoplastic documented in this encounter Care Teams Teacher [employer] Relationship Specialty Start Date End Date Giorgio Cardona MD PCP - General 10/04/10 04/10/17 [facility] [place] [address] documented as of this encounter
--- OUTSIDE RECORDS SUMMARY | 2022-10-09 16:16 | XMS_ITS | Encounter Summary ---
:1940 Author Organization [facility] [place] [address] Care Team Providers Name Role Phone Giorgio Cardona MD Primary Care Provider Encounter Details Date Type Department Care Team Description 04/06/2015 Orders Only [facility]oplasm of prostate (Primary Dx); [facility] SHAWNA Cueva Benign neoplasm of prostate [address] [place] [phone] Social History Tobacco Use Types Packs/Day [...] Visit Dermatology Virgilio Mckeon MD [facility] DR CHRISTIANO HENSON-DERMAT OLOGY [place], [place] [address] (Wo rk) 10/16/2022 Office Visit Otolaryngology Frank Buchanan MD [facility] OTOLARYNGOLOGY Sarah EPT. [place], [place] [address] (Wo rk) 11/29/2022 Appointment Hematology and Oncology 11/29/2022 Office Visit Radiation Oncology Emerald Leyva APRN [facility] RADIATION ONCCESAR [place], [place] [address] (Wo rk) documented as of this encounter Visit Diagnoses Diagnosis Malignant neoplasm of prostate - Primary Benign neoplasm of prostate documented in this encounter Care Teams Cotton Ginner Relationship Specialty Start Date End Date Giorgio Cardona MD PCP - General 10/04/10 04/10/17 [facility] [place] [address] documented as of this encounter
--- OUTSIDE RECORDS SUMMARY | 2022-10-09 16:16 | XMS_ITS | Encounter Summary ---
:1940 Author Organization [facility] Address [facility] [place] [address] Care Team Providers Name Role Phone Giorgio Cardona MD Primary Care Provider Encounter Details Date Type Department Care Team Description 01/12/2014 Telephone Orthopaedics at [facility] Alessio Quezada MD [facility] [place] [address] ORTHOPAEDIC SURGERY [phone] [place], [place] [address] (Wo rk) Social History Tobacco Use Types Packs/Day Years Used Date Smoking Tobacco: Never Smokeless Tobacco: Never Alcohol Use Standard Drinks/Week Comments Yes 0 (1 standard drink = 0.6 oz pure alcoho l) RARE Sex Assigned at Date Recorded Not on file documented as of this encounter Miscellaneous Notes Telephone Encounter - Vannessa Schneider RN - 01/12/2014 12:36 PM EST Called in Telephone Encounter - Ebonie Wise - 01/12/2014 11:23 AM EST Patient has a dental appointment coming up and needs an antibiotic, please call him back at [phone]. documented in this encounter Plan of Treatment Upcoming Encounters Date Type Specialty Care Team Description 10/11/2022 Office Visit Dermatology Virgilio Mckeon MD [facility] DR CHRISTIANO HENSON-DERMAT OLOGY [place], [place] [address] (Wo rk) 10/16/2022 Office Visit Otolaryngology Frank Buchanan MD [facility] OTOLARYNGOLOGY D EPT. [place], [place] [address] (Wo rk) 11/29/2022 Appointment Hematology and Oncology 11/29/2022 Office Visit Radiation Oncology Emerald Leyva APRN [facility] RADIATION ONCOLO GY [place], [place] [address] (Wo rk) documented as of this encounter Visit Diagnoses Not on filedocumented in this encounter Care Teams Medical/Surgery Registered Nurse Relationship Specialty Start Date End Date Giorgio Cardona MD PCP - General 10/04/10 04/10/17 [facility] GENER[place] [address] documented as of this encounter
--- OUTSIDE RECORDS SUMMARY | 2022-10-09 16:16 | XMS_ITS | Encounter Summary ---
:1940 Author Organization [facility] [place] [address] Care Team Providers Name Role Phone Giorgio Cardona MD Primary Care Provider Encounter Details Date Type Department Care Team Description 07/23/2014 Orders Only Cardiothoracic [place] [address] Social History Tobacco Use Types Packs/Day Years [...] [facility] CHRISTIANO HENSON-DERMAT OLOGY [place], [place] [address] (Wo rk) 10/16/2022 Office Visit Otolaryngology Frank Buchanan MD [facility] OTOLARYNGOLOGY Sarah Harry. [place], [place] [address] (Wo rk) 11/29/2022 Appointment Hematology and Oncology 11/29/2022 Office Visit Radiation Oncology Emerald Leyva APRN [facility] RADIATION ONCOLO GY [place], [place] [address] (Wo rk) documented as of this encounter Visit Diagnoses Not on filedocumented in this encounter Care Teams Dry Wall Finisher Relationship Specialty Start Date End Date Giorgio Cardona MD PCP - General 10/04/10 04/10/17 [facility] [place] [address] documented as of this encounter
--- OUTSIDE RECORDS SUMMARY | 2022-10-09 16:16 | XMS_ITS | Encounter Summary ---
:1940 Author Organization [facility] [place] [address] Care Team Providers Name Role Phone Giorgio Cardona MD Primary Care Provider Reason for Visit Reason Onset Date Comments Other 01/07/2014 Pt with fall yesterd ay Encounter Details Date Type Department Care Team Description 01/07/2014 Telephone Internal Medicine at [facility] Other (Pt with fall [facility] RN yesterday) [place] [address] Social History Tobacco Use Types Packs/Day Years Used Date Smoking Tobacco: Never Smokeless Tobacco: Never Alcohol Use Standard Drinks/Week Comments Yes 0 (1 standard drink = 0.6 oz pure alcoho l) RARE Sex Assigned at Date Recorded Not on file documented as of this encounter Miscellaneous Notes Telephone Encounter - [facility] Bridges RN - 01/07/2014 9:04 AM EST Call from pt reporting that he went to ED last night for a fall. Pt fell getting out of a car and hit the back of his head on a stump. [facility]. Pt states that he is having pain in his eye and the back of his head is very sore. Pt instructed to be evaluated in ED now and instructed not to drive Pt will call tomorrow with update/to arrange follow up PCP notified via eD documented in this encounter Plan of Treatment Upcoming Encounters Date Type Specialty Care Team Description 10/11/2022 Office Visit Dermatology Virgilio Mckeon MD [facility] DR CHRISTIANO HENSON-DERMAT OLOGY [place], [place] [address] (Wo rk) 10/16/2022 Office Visit Otolaryngology Frank Buchanan MD [facility] OTOLARYNGOLOGY Sarah EPT. [place], [place] [address] (Wo rk) 11/29/2022 Appointment Hematology and Oncology 11/29/2022 Office Visit Radiation Oncology Emerald Leyva APRN [facility] RADIATION ONCOLO GY [place], [place] [address] (Wo rk) documented as of this encounter Visit Diagnoses Not on filedocumented in this encounter Care Teams Coverage Analyst Relationship Specialty Start Date End Date Giorgio Cardona MD PCP - General 10/04/10 04/10/17 [facility] GENER[place] [address] documented as of this encounter
--- OUTSIDE RECORDS SUMMARY | 2022-10-09 16:16 | XMS_ITS | Encounter Summary ---
:1940 Author Organization [facility] Address [facility] [place] [address] Care Team Providers Name Role Phone Giorgio Cardona MD Primary Care Provider Reason for Visit Reason Comments Skin Check Encounter Details Date Type Department Care Team Description 05/24/2015 Follow-Up Dermatology at [facility] (actinic keratosis); Emilia VELEZ MD Seborrheic keratosis; [address] [facility] History of basal cell carcin kassi; [place] [address] Skin exam, screening for cancer [phone] [facility] [place], [place] [address] (Wo rk) Social History Tobacco Use Types Packs/Day Years Used Date Smoking Tobacco: Never Smokeless Tobacco: Never Alcohol Use Standard Drinks/Week Comments Yes 0 (1 standard drink = 0.6 oz pure alcoho l) RARE Sex Assigned at Date Recorded Not on file documented as of this encounter Progress Notes Carola Lowry LPN - 05/24/2015 10:53 AM EDT DERMATOLOGY ESTABLISHED PATIENT CLINIC NOTE Date of service: 05/24/2015 Alfredito Mina : 1940 Provider: Rigoberto Jackson MD PROBLEM: Full skin cancer examination SKIN HISTORY: 11/23/2014 ---Pathologic Diagnosis--- Treated with ED&C, right mid lateral back 12/08/2014 A - Skin, right mid lateral back, shave biopsy: Basal cell carcinoma, superficial type, extending to both peripheral margins. 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 Seborrheic Keratoses Defibrillator/Pacemaker: No DO YOU HAVE ARTIFICIAL JOINTS? Yes, Right TNR. Heart Valves: Valve repair Blood Thinners: No Prophylactic Antibiotics: Yes HPI Alfredito Mina is a 74 y.o. year old male. Established patient to me here today for full 6 month skin cancer examination. He is concerned today with rough patches on his scalp noticed by his ANRPClaire Pace. He has a history of basal cell carcinoma. ADR: Allergies Allergen Reactions ??? Cyclobenzaprine Urinary [...] keratosis 702.0 ??? Basal cell carcinoma 173.91 ROS General: feeling well Skin: denies other skin complaints EXAM General: NAD, pleasant, cooperative Skin: A total body skin exam except for areas covered by underwear was performed. This includes examination of the skin of the face, ears, neck, chest, axillae, left and right upper and lower extremities, hands and feet, abdomen, and except the areas covered by underwear were not examined. Significant skin findings: A. Multiple 0.4-1 cm, brown-black papules/plaques with waxy stuck on appearance Sides of face, back and around neck B. Right forearm x 1 left forearm x 1 0.2-0.3cm scaly irregular pink papules Time out questions: Heart valve - no Artificial joint - knee replaced many years ago Blood thinner - no Pacemaker / defibrillator no ASSESSMENT/PLAN: A. seborrheic keratoses temples, back and upper chest - Benign nature of skin lesion discussed with pt. Patient reassured. No treatment required at this time. B. actinic keratoses on arms. I discussed this condition with the patient and explored therapeutic options. I recommended LN2 to the lesions Procedure Note: Procedure: Destruction of lesion with cryotherapy. Number: 2 Location: as above Discussed procedure and expectations including risks (including risk of hypopigmentation) and benefits. Verbal consent obtained. Frozen with LN2, 15-30 second thaw time, TWICE. There were no complications; the patient tolerated the procedure well. Post-procedure expectations and wound care were reviewed. Call if areas do not resolve as expected or problems arise. Follow up : 1 year for full skin check, reminder routed today I am documenting this encounter acting as the scribe for and in the presence of Dr. Jackson.: Carola Lowry LPN I performed the above scribed service and agree with the accuracy of the documentation in this encounter. Rigoberto Jackson MD Section of Dermatology [facility] documented in this encounter Plan of Treatment Upcoming Encounters Date Type Specialty Care Team Description 10/11/2022 Office Visit Dermatology Virgilio Mckeon MD [facility] DR CHRISTIANO HENSON-DERMAT OLOGY [place], [place] [address] (Wo rk) 10/16/2022 Office Visit Otolaryngology Frank Buchanan MD [facility] OTOLARYNGOLOGY Sarah EPT. [place], [place] [address] (Wo rk) 11/29/2022 Appointment Hematology and Oncology 11/29/2022 Office Visit Radiation Oncology Emerald Leyva APRN [facility] RADIATION ONCCESAR GY [place], [place] [address] (Wo rk) documented as of this encounter Visit Diagnoses Diagnosis AK (actinic keratosis) Actinic keratosis Seborrheic keratosis Other seborrheic keratosis History of basal cell carcinoma Personal history of other malignant neop lasm of skin Skin exam, screening for cancer Screening for malignant neoplasm of the skin documented in this encounter Care Teams Motor And Generator Assembler Relationship Specialty Start Date End Date Giorgio Cardona MD PCP - General 10/04/10 04/10/17 [facility] [place] [address] documented as of this encounter
--- OUTSIDE RECORDS SUMMARY | 2022-10-09 16:16 | XMS_ITS | Encounter Summary ---
:1940 [place] [address] Care Team Providers Name Role Phone Giorgio Cardona MD Primary Care Provider Reason for Visit Reason Onset Date Comments Post-op Problem 08/03/2014 Encounter Details Date Type Department Care Team Description 08/03/2014 Telephone [place] [facility] [place] Quezada MD Post-op Problem [facility] [place] [address] ORTHOPAEDIC SURGERY [phone] [place], [place] [address] (Wo rk) Social History Tobacco Use Types Packs/Day Years Used Date Smoking Tobacco: Never Smokeless Tobacco: Never Alcohol Use Standard Drinks/Week Comments Yes 0 (1 standard drink = 0.6 oz pure alcoho l) RARE Sex Assigned at Date Recorded Not on file documented as of this encounter Miscellaneous Notes Telephone Encounter - Cassy Ochoa RN - 08/04/2014 8:16 AM EDT TELEPHONE NOTE Responsible Provider: PMB Caller: Mr. Mina paged gcm per request. Reason for call: Mr. Mina fell down some stairs X2D, and has a sore spot medial to his R patella. He is s/p TKA on that side. Assessment: Needs to be seen. Plan/Instructions: Emerson't with PMB today, images prior. Telephone Encounter - Cassy Ochoa RN - 08/03/2014 3:28 PM EDT LM to page #[id number]. Telephone Encounter - Tonya Gonzalez - 08/03/2014 8:10 AM EDT When was your procedure? 8.8.12 Who was your surgeon? Dr. Quezada What procedure did you have done? Right total knee What is the question you would like to ask the nurse? I fell and the knee is hot and swollen. Best number to reach you # [phone] The nurse continuously monitors all messages and will return your call before the end of the day. The nurse may need to consult the surgeon about your question which may delay the return call by 24hrs. <DELETE THIS LINE AND BELOW PRIOR TO CLOSING> If this post procedure call fits into any of the other more specific categories then please use thatcategory. documented in this encounter Plan of Treatment Upcoming Encounters Date Type Specialty Care Team Description 10/11/2022 Office Visit Dermatology Virgilio Mckeon MD [facility] DR CHRISTIANO HENSON-DERMAT OLOGY [place], [place] [address] (Leroy bhatia) 10/16/2022 Office Visit Otolaryngology Frank Buchanan MD [facility] OTOLARYNGOLOGY Sarah EPT. [place], [place] [address] (Leroy bhatia) 11/29/2022 Appointment Hematology and Oncology 11/29/2022 Office Visit Radiation Oncology Emerald Leyva APRN [facility] RADIATION ONCCESAR GY [place], [place] [address] (Wo rk) documented as of this encounter Results XR knee diagnostic 1 or 2 view (08/04/2014 2:01 PM EDT) Anatomical Region Laterality Modality Knee N/A Radiographic Imaging Specimen (Source) Anatomical Collection Method Collection Time Re ceived Time Location / / Volume Laterality 08/04/2014 2:01 PM EDT Narrative 08/04/2014 3:08 PM EDT Examination KNEE 1 OR 2 VIEWS/RIGHT Clinical History knee pain, TKA, s/p fall x2d Comparison Multiple examination since 2011. Technique Findings Unchanged appearance and alignment of th e right total knee arthroplasty without effusion or radiolucencies or periprosth etic fracture. ??There is heterotopic bone formation at the quadriceps tendon insertion. The left medial joint space is narrowed accompanied by small osteophyte formation. Impression ? 1. Uncomplicated right total knee arthroplasty. ? 2. Left knee osteoarthropathy. Procedure Note Allison Biswas MD - 08/04/2014Formatt ing of this note might be different from the original. Examination KNEE 1 OR 2 VIEWS/RIGHT Clinical History knee pain, TKA, s/p fall x2d Comparison Multiple examination since 2011. Technique Findings Unchanged appearance and alignment of th e right total knee arthroplasty without effusion or radiolucencies or periprosth etic fracture. There is heterotopic bone formation at the quadriceps tendon insertion. The left medial joint space is narrowed accompanied by small osteophyte formation. Impression 1. Uncomplicated right total knee arthr oplasty. 2. Left knee osteoarthropathy. Alessio Quezada MD IMG DX ORDERABLES documented in this encounter Visit Diagnoses Diagnosis Right knee pain Pain in joint, lower leg Right knee pain Pain in joint, lower leg documented in this encounter Care Teams Nurse Receptionist Relationship Specialty Start Date End Date Giorgio Cardona MD PCP - General 10/04/10 04/10/17 [facility] [place] [address] documented as of this encounter
--- OUTSIDE RECORDS SUMMARY | 2022-10-09 16:16 | XMS_ITS | Encounter Summary ---
:1940 Author Organization [facility] [place] [address] Care Team Providers Name Role Phone Giorgio Cardona MD Primary Care Provider Reason for Visit Reason Comments Basal Cell Carcinoma here for ED&C Encounter Details Date Type Department Care Team Description 12/08/2014 Follow-Up Dermatology at [facility] Rigoberto Jackson john cell carcinoma (Primary Dx); Emilia VELEZ MD Actinic keratosis [address] [place] [address] [facility] [place], [place] [address] (Wo rk) Social History Tobacco Use Types Packs/Day Years Used Date Smoking Tobacco: Never Smokeless Tobacco: Never Alcohol Use Standard Drinks/Week Comments Yes 0 (1 standard drink = 0.6 oz pure alcoho l) RARE Sex Assigned at Date Recorded Not on file documented as of this encounter Patient Instructions Patient InstructionsFoKatya cheek LPN - 12/08/2014 10:02 AM EST Images from the original note were not included. Section of Dermatology Treatment and Wound Care Instructions Your Diagnosis Today: Basal Cell Carcinoma Actinic keratosis Your Treatment Today: ___x___ You were treated with electrosurgery in which the cells were burned with an electric needle and scraped with a curette. Expected healing time is 4-6 weeks. ____x__ You were treated with liquid nitrogen where the abnormal cells are frozen, this may cause a blister and/or crusty area which will fall off. Allow 2 - 3 weeks for this process. Wound Care Instructions: 1. You will need to keep the wound dry and covered for 24 hours 2. Remove bandage and clean the area with soap and water, gently pat the area dry. 3. Apply small amount of Vaseline to the area, cover with a Band-Aid until wound is healed. 4. A small amount of yellow drainage is part of normal healing, the wound is not considered healed until the drainage stops. It may take up to 3 - 4 weeks depending upon the area biopsied 5. Signs of infection include increased tenderness, pain, drainage or redness that becomes hard or swollen surrounding the wound 6. If bleeding occurs hold pressure for 15 minutes, if still bleeding than call our office 7. Please call our office if you have further questions or concerns. . After 5 PM, holidays and weekends call [phone] and ask for the Roll Icer Machine stone fabricator. Dr. Rigoberto Jackson documented in this encounter Progress Notes Katya Nicholas LPN - 12/08/2014 9:32 AM EST DERMATOLOGY ESTABLISHED PATIENT CLINIC NOTE Date of service: 12/08/2014 Alfredito Mina : 1940 Provider: Rigoberto Jackson MD PROBLEM: BCC, ED&C SKIN HISTORY: 11/23/2014 ---Pathologic Diagnosis--- Treated with ED&C, right mid lateral back 12/08/2014 A - Skin, right mid lateral back, shave biopsy: Basal cell carcinoma, superficial type, extending to both peripheral margins. 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 Seborrheic Keratoses PATIENT SCREENING QUESTION Defibrillator/Pacemaker: No DO YOU HAVE ARTIFICIAL JOINTS? Yes, Right TNR. Heart Valves: Valve repair Blood Thinners: No Prophylactic Antibiotics: Yes HPI Alfredito Mina is a 74 y.o. year old male.Here today for ED&C on right mid lateral back for a proven superficial Basal Cell Carcinoma. The acanthoma on left posterior ankle is healing well with some mild itching. ADR: Allergies Allergen Reactions ??? Cyclobenzaprine Urinary [...] facility-administered medications on file prior to visit. Patient Active Problem List Diagnosis Code ??? 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 Actinic keratosis 702.0 ROS General: feeling well Skin: denies other skin complaints EXAM General: NAD, pleasant, cooperative Skin: Significant skin findings: A. Crusted lesion with mild erythema, right mid lateral back- site of biopsy showing sBCC B. Mild erythema with crusting, left posterior ankle. The crust is falling off- C. 0.2-0.3cm scaly irregular pink papules, right forearm x 2, left forearm ASSESSMENT/PLAN: A..Proven Basal Cell Carcinoma, I discussed this condition with the patient and explored therapeuticoptions. I recommended treating with ED&C. Patient agrees with plan. Procedure: Destruction of lesion. Site:right mid lateral back. Discussed indications and expectations including risks and benefits. Verbal consent obtained. Skin prep. Local anesthesia: buffered 1% lidocaine with epinephrine. The entire lesion plus a small margin was treated by curettage and electrodes iccation x 3. Post-curettage defect size: 8 mm. No complications. Wound dressed. Expectations (including discomfort management) and wound care reviewed. B. S/P removal of clear cell acanthoma on left lower leg, Eschar removed. Site covered with Vaselineand a Band aid. Healing well, recommend applying Sarna or Aveeno Anti Itch Cream if itching starts. C. actinic keratosis, I discussed this condition with the patient and explored therapeutic options. I recommended treating with LN 2 Procedure Note: Procedure: Destruction of lesion(s) with cryotherapy. Number: 3 Location: as above Discussed procedure and expectations including risks (including risk of hypopigmentation) and benefits. Verbal consent obtained. Frozen with LN2, 15-30 second thaw time, TWICE. There were no complications; the patient tolerated the procedure well. Post-procedure expectations and wound care were reviewed. Pt was premedicated with 2 grams of Keflex prior to procedure RTC in 2 months for waist up skin cancer screening. Patient made appointment when exited. I am documenting this encounter acting as the scribe for and in the presence of Dr. Jackson.: Katya Nicholas LPN I performed the above scribed service and agree with the accuracy of the documentation in this encounter. Rigoberto Jackson MD Section of Dermatology [facility] documented in this encounter Plan of Treatment Upcoming Encounters Date Type Specialty Care Team Description 10/11/2022 Office Visit Dermatology Virgilio Mckeon MD [facility] DR CHRISTIANO HENSON[facility]DERMAT OLOGY [place], [place] [address] (Wo rk) 10/16/2022 Office Visit Otolaryngology Frank Buchanan MD [facility] OTOLARYNGOLOGY Sarah EPT. [place], [place] [address] (Wo rk) 11/29/2022 Appointment Hematology and Oncology 11/29/2022 Office Visit Radiation Oncology Emerald Leyva APRN [facility] RADIATION ONCOLO GY [place], [place] [address] (Wo rk) documented as of this encounter Visit Diagnoses Diagnosis Basal cell carcinoma - Primary Basal cell carcinoma of skin, site unspe cified Actinic keratosis documented in this encounter Care Teams Key Carrier Relationship Specialty Start Date End Date Giorgio Cardona MD PCP - General 10/04/10 04/10/17 [facility] [place] [address] documented as of this encounter
--- OUTSIDE RECORDS SUMMARY | 2022-10-09 16:16 | XMS_ITS | Encounter Summary ---
:1940 Author Organization [facility] [place] [address] Care Team Providers Name Role Phone Giorgio Cardona MD Primary Care Provider Encounter Details Date Type Department Care Team Description 10/20/2013 Orders Only Cardiothoracic Surge Lois Simmons, Malignant neoplasm [facility] Sarah garcia [place] [address] [facility] or lung [phone] [facility] CARDIOTHORACIC SURGERY [place], [place] [address] Social History Tobacco Use Types Packs/Day Years [...] [facility] DR [facility] H[facility] OLOGY [place], [place] [address] (Wo rk) 10/16/2022 Office Visit Otolaryngology Frank Buchanan MD [facility] OTOLARYNGOLOGY Sarah EPT. [place], [place] [address] (Wo rk) 11/29/2022 Appointment Hematology and Oncology 11/29/2022 Office Visit Radiation Oncology Emerald Leyva, PATIENT FLOW COORDINATOR [facility] RADIATION [place]CC[place]AR [place], [place] [address] (Wo rk) documented as of this encounter Results CT chest WO contrast (08/11/2014 1:15 PM EDT) Anatomical Region Laterality Modality Chest Computed Tomography Specimen (Source) Anatomical Collection Method Collection Time Re ceived Time Location / / Volume Laterality 08/11/2014 1:15 PM EDT Narrative 08/11/2014 4:[address] Chest Without Contrast Clinical History LUNG CANCER, ?? S/P LOBECTOMY Comparison CT of the chest January 07, 2013. Technique CT of the chest was performed without th e use of intravenous contrast. Findings The patient is status post right lower l obectomy. ??No evidence for recurrence at the lobectomy site is identified. ??N o new or enlarging pulmonary nodules are identified. The central airways are clear. ??No pneu mothorax or pleural effusion. ??No axillary, mediastinal, or hilar lymphade nopathy. Limited evaluation of the upper abdomen reveals unchanged appearance of the left adrenal adenoma that measures 27 mm . ??Normal appearance of the right adrenal gland. ??Exophytic simple cyst i s again seen arising from the superior pole of the right kidney. ?? No aggressive osseous lesion. ??The brittany ent is status post sternotomy, and median sternotomy wires are intact. Impression ? 1. Stable post right lower lobect lennie appearance of the right lung without evidence of new or recurrent disease. ? 2. Unchanged left adrenal adenoma . Film and interpretation reviewed by the attending Procedure Note Miriam Mancilla MD - [address] Chest Without Contrast Clinical History LUNG CANCER, S/P LOBECTOMY Comparison CT of the chest January 07, 2013. Technique CT of the chest was performed without th e use of intravenous contrast. Findings The patient is status post right lower l obectomy. No evidence for recurrence at the lobectomy site is identified. No new or enlarging pulmonary nodules are identified. The central airways are clear. No pneumo thorax or pleural effusion. No axillary, mediastinal, or hilar lymphade nopathy. Limited evaluation of the upper abdomen reveals unchanged appearance of the left adrenal adenoma that measures 27 mm . Normal appearance of the right adrenal gland. Exophytic simple cyst is again seen arising from the superior pole of the right kidney. No aggressive osseous lesion. The patien t is status post sternotomy, and median sternotomy wires are intact. Impression 1. Stable post right lower lobectomy ap pearance of the right lung without evidence of new or recurrent disease. 2. Unchanged left adrenal adenoma. Film and interpretation reviewed by the attending Lois Jacome MD IMG CT ORDERABLES documented in this encounter Visit Diagnoses Diagnosis Malignant neoplasm middle lobe, bronchus or lung Malignant neoplasm middle lobe, bronchus or lung documented in this encounter Care Teams Scratcher Relationship Specialty Start Date End Date Giorgio Cardona MD PCP - General 10/04/10 04/10/[address] [facility] [address] [place] [address] documented as of this encounter
--- OUTSIDE RECORDS SUMMARY | 2022-10-09 16:16 | XMS_ITS | Encounter Summary ---
:1940 Author Organization [facility] [place] [address] Care Team Providers Name Role Phone Giorgio Cardona MD Primary Care Provider Reason for Referral Physical Therapy (Routine) - Complete - Patient Seen (External Appt Consult Notes Rcv'd) Specialty Diagnoses / Procedures Referred By Contact Refer red To Contact Physical Therapy Diagnoses Pain in left shoulder Giorgio Cardona MD [facility] Sarah R GENERAL [place] [address] Referral ID Status Reason Start Expiration Visits Visits Date Date Requested Authorized [id number] Complete - Evaluate and 05/09/2014 10 10 Patient Seen Treat 3 (External Appt Consult Notes Rcv'd) Reason for Visit Reason Comments Follow-up Encounter Details Date Type Department Care Team Description 11/10/2013 Follow-Up Internal Medicine at Deandre Cardona MD Healthcare maintenance; [facility] Impaired fasting glucose; [facility] Dyslipidemia; [facility] INTERNAL Anxiety; [place] [address] MEDICINE Multinodular goiter; [phone] [place], [place] [address] GERD (gastroesophageal reflux disease); [phone] (Wo rk) Hypertension; Lung canc er, unspecified laterality; Osteoarthritis; Pancreatic cyst ; Prostate cancer ; S/P mitral valv e repair; Preventative he alth care; Pain in left sh oulder; Vitamin D defic iency Social History Tobacco Use Types Packs/Day Years Used Date Smoking Tobacco: Never Smokeless Tobacco: Never Alcohol Use Standard Drinks/Week Comments Yes 0 (1 standard drink = 0.6 oz pure alcoho l) RARE Sex Assigned at Date Recorded Not on file documented as of this encounter Last Filed Vital Signs Vital Sign Reading Time Taken Comments Blood Pressure 122/73 11/10/2013 1:25 PM EST Pulse 62 11/10/2013 1:25 PM EST Temperature - - Respiratory Rate - - Oxygen Saturation 99% 11/10/2013 1:25 PM EST Inhaled Oxygen Concentration - - Weight 72.2 kg (159 lb 3.2 oz) 11/10/2013 1:25 PM EST Height - - Body Mass Index 26.9 01/14/2013 1:24 PM EST documented in this encounter Progress Notes Giorgio Cardona MD - 11/10/2013 1:33 PM EST Established Patient Follow-up Visit History of Presenting Illness: Patient here to followup on acute and chronic medical issues Fell down from a ladder. Doing some exercises. Left arm in particularly unable to get above head. Not doing any physical therapy. Seeing Dr. Burns - specialist in shoulder - not seen him yet. No numbness/tingling in his arm. Worried about having this frozen - having a hard time though. Stiffens up. Nottaking anything for pain. In the morning very stiff. Knee - feels great with it. Does not overdo it. Wears knee pad. Has been working 13-14 hours daily at this time. Mood - not great. Not sure what it is. Feels discouraged. Frustrated that regardless of how much money he makes it is gone. We have explored this issue before but declines at this time to get treated. Reviewed US scrotum at this time with the patient. Has a hydrocele Has been seeing a cloud systems administrator as well. Patient reported measures in the past 7 days Pain:5 Physical Health:Good Mental Health: Patient Active Problem [...] features. 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 [id number]; KRAS negative, EGFR negative --09/2010: CT scan - normal --02/2011: CT scan --09/2011: CT scan - negative annual CT's afterwards Outpatient Encounter Prescriptions as of 11/10/2013 Medication Sig Dispense Refill ??? atenolol (TENORMIN) 50 mg tablet TAKE ONE-HALF TABLET BY MOUTH EVERY DAY 45 tablet 3 ??? docusate sodium (COLACE) 100 mg capsule Take 100 mg by mouth 2 times daily. ??? albuterol (PROVENTIL HFA;VENTOLIN HFA) 90 mcg/actuation inhaler Inhale 2 puffs into the lungs every 4 hours as needed for Wheezing. Use with spacer 1 Inhaler 1 ??? furosemide (LASIX) 20 mg tablet Take 1 tablet by mouth daily. 30 tablet ??? terazosin (HYTRIN) 2 mg capsule Take 1 capsule by mouth nightly. ??? [DISCONTINUED] senna-docusate (PERICOLACE) 8.6-50 mg per tablet Take 1-4 tablets by mouth 2 times daily. ??? omeprazole (PRILOSEC) 10 mg capsule Take 10 mg by mouth 2 times daily. ??? levothyroxine (SYNTHROID) 125 mcg tablet Take 1 tablet by mouth every morning. 30 tablet 12 History Social History ??? Marital Status: Single Spouse Name: N/A Number of Children: N/A ??? Years of Education: N/A Social History Main Topics ??? Smoking status: Never Smoker ??? Smokeless tobacco: Never Used ??? Alcohol Use: Yes Comment: RARE ??? Drug Use: No ??? Sexually Active: None Other Topics Concern ??? None Social [...] rest or with movement Objective Filed Vitals: 11/10/13 1325 BP: 122/73 Pulse: 62 Weight: 72.213 kg (159 lb 3.2 oz) SpO2: 99% Gen -no [...] 5. S/p Mitral Regurgitation --reviewed echo in 2012. Recheck next year 6. Depression/Insomnia --continues to be an issue though. Declines treatment. Happy to be back for work. 7. Lung Cancer --saw Dr Jacome recently in Dec 2012. Has CT in January 2014 8. Pancreatic Lesion --on recent CT stable. Likely 1-2 year f/u. 9. GERD Controlled with dietary modification 10. Prostate Cancer Last saw Rad onc in Sep 2013 11. Hypertension Hypertension Plan of Care [X] Stable and controlled: continue current medications as prescribed [ ] Uncontrolled: change medication as follows: [ ] Life style modifications discussed: weight loss, low salt diet, exercise and moderation of alcohol intake [ ] Return for assessment in This plan of care was made in collaboration with the patient/family 13. Dyslipidemia stable 14. Shoulder Pain 15. S/p fall Needs physical therapy for this. Discussed fall prevention. Patient Instructions: There are no Patient Instructions [...] my nurses, letter, or myDH. Next Appointment: Total time: Minutes, Of the visit time was spent in [id number] counselling of the above issues Orders placed [...] [facility] [place], [place] [address] (Wo rk) 10/16/2022 Office Visit Otolaryngology Frank Buchanan MD [facility] OTOLARYNGOLOGY Sarah EPT. [place], [place] [address] (Wo rk) 11/29/2022 Appointment Hematology and Oncology 11/29/2022 Office Visit Radiation Oncology Emerald Leyva APRN [facility] RADIATION ONCOLO GY [place], [place] [address] ( rk) Scheduled Referrals Name Type Priority Associated Diagnoses Order S chedule Referral to Outpatient Referral Routine Pain in left Ordered: Physical Therapy shoulder 11/10/2013 documented as of this encounter Visit Diagnoses Diagnosis Healthcare maintenance Routine general medical examination at a health care facility Impaired fasting glucose Dyslipidemia Other and unspecified hyperlipidemia Anxiety Anxiety state, unspecified Multinodular goiter Nontoxic multinodular goiter GERD (gastroesophageal reflux disease) Esophageal reflux Hypertension Unspecified essential hypertension Lung cancer, unspecified laterality Osteoarthritis Osteoarthrosis, unspecified whether gene ralized or localized, unspecified site Pancreatic cyst Cyst and pseudocyst of pancreas Prostate cancer Malignant neoplasm of prostate S/P mitral valve repair Other postprocedural status Preventative health care Routine general medical examination at a health care facility Pain in left shoulder Pain in joint, shoulder region Vitamin D deficiency Unspecified vitamin D deficiency documented in this encounter Care Teams Beater And Pulper Feeder Relationship Specialty Start Date End Date Giorgio Cardona MD PCP - General 10/04/10 04/10/17 [facility] GENERAL [place] [address] documented as of this encounter
--- OUTSIDE RECORDS SUMMARY | 2022-10-09 16:16 | XMS_ITS | Encounter Summary ---
:1940 Author Organization [facility] Address [address] [place] [address] Care Team Providers Name Role Phone Giorgio Cardona MD Primary Care Provider Reason for Referral Consultation (Routine) - Closed Specialty Diagnoses / Procedures Referred By Contact Refer red To Contact Otolaryngology Diagnoses Vocal cord paralysis Sandra Seth APRN Paydarfar, Joseph A, [facility] Sarah Larios MD GENERAL INTERNAL [facility] BOSS MEDICINE [place]ARY[place] [address] [place] [address] Fax: Referral ID Status Reason Start Date Expiration Date Visits V isits Requested Authorized [id number] Closed Consult, 05/08/2014 11/04/2014 1 1 Test & Treat Reason for Visit Reason Comments Annual Exam Encounter Details Date Type Department Care Team Description 05/08/2014 Office Visit Internal Medicine at Sandra Seth Nee d for imvxcpcucj-wikbatz-mbfufvfio (Tdap) vaccine (Primary Dx); [facility] ROSITA Vocal cord paralysis; [facility] Div erticulitis; Drive DR ALVAREZ (gastroesophageal reflux disease); [place], [place] GENERAL INTERNAL Hypertensio n; [phone] MEDICINE Lung cancer, unspecified laterality [phone] [place] [address] (Wo rk) Social History Tobacco Use Types Packs/Day Years Used Date Smoking Tobacco: Never Smokeless Tobacco: Never Alcohol Use Standard Drinks/Week Comments Yes 0 (1 standard drink = 0.6 oz pure alcoho l) RARE Sex Assigned at Date Recorded Not on file documented as of this encounter Last Filed Vital Signs Vital Sign Reading Time Taken Comments Blood Pressure 131/82 05/08/2014 3:33 PM EDT Pulse 63 05/08/2014 3:33 PM EDT Temperature - - Respiratory Rate - - Oxygen Saturation 97% 05/08/2014 3:33 PM at rest jessica m air EDT Inhaled Oxygen Concentration - - Weight 75 kg (165 lb 6.4 oz) 05/08/2014 3:33 PM EDT Height 161.3 cm (5' 3.5) 05/08/2014 3:33 PM EDT Body Mass Index 28.84 05/08/2014 3:33 PM EDT documented in this encounter Patient Instructions Patient InstructionsSandra Seth APRN - 05/08/2014 4:18 PM EDT Continue with physical therapy for shoulder and R heel pain Contact us if your heel is no better in a few weeks and we will order some xrays documented in this encounter Progress Notes Sandra Seth APRN - 05/08/2014 3:53 PM EDT [facility] Annual Visit Assessment Chief Complaint: The patient attends the visit today alone. L shoulder injury after fall---ongoing PT---getting better. In addition recently developed R heel pain with what he believes (as does PT) ---plantar fascitis. HPI and Problem List: Patient Active Problem List Diagnosis ??? History of squamous cell carcinoma ??? Actinic keratosis ??? Aspiration Into Lower Respiratory Tract ??? Diverticulitis ??? Preventative health care Overview Note: Immunization History Administered Date(s) Administered ??? Influenza Whole 09/13/2005, 10/03/2006, 11/12/2009, 09/12/2010 ??? Pneumococcal Polyvalent 23 01/08/2012 ??? Td 11/14/2005 no shingles. Got flu shot 2011 PSA/Lipids - as in problem Colonoscopy - 2009 - normal. But new diverticulitis. Advanced directives - need copy of advanced directives ??? Vocal cord paralysis ??? Dysphagia, unspecified ??? S/P thyroidectomy ??? Anxiety ??? Retrosternal goiter Overview Note: ??? Post-nasal drip Overview Note: ??? Inguinal hernia recurrent unilateral Overview Note: Left recurrent inguinal hernia ??? Multinodular goiter Overview Note: Lt substernal hot nodules->I-131 Rx --U/S 07/21: [...] 2011 - s/p thyroidectomy ??? Pancreatic cyst Overview Note: --seen on CT scans --CT a/p Oct 2011 - stable 10mm lesion --recommended MRi Oct 2011 ??? Constipation ??? Dyslipidemia Overview Note: --02/2009: HDL-56, TG-68, LDL-81, TC-146. --07/2009: TC- 124, TG-89, HDL-66, LDL-124. --09/2009: TC 162, TG 71, LDL 81. On statin --09/2010: LDL 103, TG 75, HDL 72 ??? GERD (gastroesophageal reflux disease) Overview Note: Barium swallow, EGD 2011 ??? Hypertension Overview Note: ??? Impaired fasting glucose ??? S/P mitral valve repair Overview Note: --Echocardiogram 2008 - mild insufficiency ??? Osteoarthritis Overview Note: # Knees --X-rays on 08/16/09, 08/25/09: b/l obliteration of the medial compartment. # DJD spine. --X-ray + MRI: mild b/l osteoarthritic facet hypertrophy L5-S1 --mild DJD at L3-L4 and L4-L5. ??? Prostate cancer Overview Note: ??? Lung cancer Overview Note: --01/27/2010: Nodule on chest x-ray. --01/04/2010: CT chest - bronchoalveolar carcinoma. --01/13/2010: CT guided lung biopsy --01/25/2010: PET scan - negative other than lesion. 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 --01/2010: Pulmonary function test - moderate obstruction. --02/2010: RLL lobectomy. invasive adenocarcinoma with peripheral LIANET features. 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 vU4sCaTs; KRAS negative, EGFR negative --09/2010: CT scan - normal --02/2011: CT scan --09/2011: CT scan - negative annual CT's afterwards Immunizations: Immunization History Administered Date(s) Administered ??? Influenza PF, Split 11/10/2013 ??? Influenza Vaccine, Whole 09/13/2005, 10/03/2006, 11/12/2009, 09/12/2010, 10/16/2012 ??? Pneumococcal Polyvalent 23 01/08/2012 ??? Td, adult 11/14/2005 # Advanced Directives---on file Past Medical/Surgical History Review of Systems: Geriatric and Functional Screens: Medication Review - performed Hearing: intact. Vision: intact. Dentition: intact. No Yes Weight Loss x Incontinence (Urine/Fecal) x Falls x Ambulatory/Mobility x Driving? x In Home Services x Lifeline/Emergency Notification System x Use of assistive device(s): x None Cane Walker Other: Functional status: the patient is impaired in: [x ] not impaired [ ] all IADLs Telephone Meals Finances Medications Laundry Housework Shopping Transportation [x ] all basic ADLs bathing Dressing Transfers Toileting Grooming Feeding Medications Allergies Allergen Reactions ??? Cyclobenzaprine Urinary retention, xerostomia ??? Lactose Other (See Comments) Sneezing Family History: Family History Problem Relation Age of Onset ??? Asthma Mother ??? Heart Failure Father ??? Thyroid Disease Paternal Grandmother Social History: reports that he has never smoked. He has never used smokeless tobacco. He reports that he drinks alcohol. He reports that he does not use illicit drugs. PHQ9 Questionnaires Data (Clinic and Pt Entered): Today's value PHQ-9 QUESTIONNAIRE (AMB) 05/08/2014 PHQ - 9 Score (Clinic) 2 (Minimal Depression) PHQ - 9 Score (Patient) - Little interest or pleasure (Clinic) Not at all Little interest or pleasure (Patient) - Down, depressed, hopeless (Clinic) More than half the days Down, depressed, hopeless (Patient) - Trouble sleeping (Patient) - Tired or no energy (Patient) - Poor appetite or overeating (Patient) - Feeling like a failure (Patient) - Trouble concentrating (Patient) - Moving or speaking slowly (Patient) - Would be better off (Patient) - Review of Systems: All ticked boxes are present, otherwise absent. Constitutional - ( ) fevers ( ) chills, sweats ( ) fatigue Allergic/Immunologic - ( ) rash Cardiovascular - ( )chest pain ( )palpitations Integument/Breast - ( ) lesions, lumps, nodules Respiratory - ( )SOB, NIEVES ( )cough, sputum ( )wheezing HEENT - ( ) diffculty swallowing ( ) nasal congestion, postnasal drip Psychiatric - ( ) sadness, depression ( ) anxiety, panic ( ) memory loss ( ) insomnia Neurological - ( ) numbness, tingling, loss of sensation ( ) weakness or function of limbs ( ) headaches Gastrointestinal - ( ) abdominal pain ( ) nausea, GERD ( ) constipation, diarrhea ( ) blood in stool Genitourinary - ( ) abnormal discharge ( ) lumps, masses or nodules ( ) nocturia, dysuria, polyuria Heme/Lymph - ( ) lymph node swelling Musculoskeletal - (x ) pain at rest or with movement--L shoulder pain with reduced function and R heel pain ---PF? All other systems were negative. Physical Exam: BP 131/82 Pulse 63 Ht 161.3 cm (5' 3.5) Wt 75.025 kg (165 lb 6.4 oz) BMI 28.84 kg/m2 FmK361% Gen - A 73 year old male in no acute distress. Alert, oriented to person, place and time. HEENT - EOMI, PERRL, chronic hoarseness, TMs and canals normal, oropharynx moist without [...] distention, normal active bowel sounds Extremities - L shoulder reduced ROM, strength---secondary to rotator cuff injury--- R heel pain on palpation---full ROM, no erythema, no swelling Skin - No rashes, lesions, plaques, nodules Neurological - Strength - 5/5 upper and lower extremities (limited ROM L shoulder) Sensation - light touch, pain and vibration intact DTR's - 2+ throughout Babinski - downgoing toes bilaterally Gait: grossly intact with normal stride length, speed, and arm swing Dementia Screen: Alert and oriented to person, place, and date. Three item recall: 3/3 objects. 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 R plantar fascities and L rotator cuff injury that is improving with PT. All health maintenance up to date as are immunizations. Plan Continue with meds as above Patient Instructions Continue with physical therapy for shoulder and R heel pain Contact us if your heel is no better in a few weeks and we will order some xrays documented in this encounter Plan of Treatment Upcoming Encounters Date Type Specialty Care Team Description 10/11/2022 Office Visit Dermatology Virgilio Mckeon MD [facility] DR CHRISTIANO HENSON-DERMAT OLOGY [place], [place] [address] (Leroy bhatia) 10/16/2022 Office Visit Otolaryngology Frank Buchanan MD [facility] OTOLARYNGOLOGMireille Smith EPT. [place], [place] [address] (Leroy bhatia) 11/29/2022 Appointment Hematology and Oncology 11/29/2022 Office Visit Radiation Oncology Emerald Leyva APRN [facility] RADIATION ONCOLO [place], [place] [address] (Wo rk) Scheduled Referrals Name Type Priority Associated Diagnoses Order S chedule Referral to ENT Outpatient Referral Routine Vocal cord paralys is Ordered: 05/08/2014 documented as of this encounter Visit Diagnoses Diagnosis Need for mpdjapqius-yewxobz-ptuswmoec (T dap) vaccine - Primary Need for prophylactic vaccination with c ombined avjrolctan-xgxsotu-iltlvvsll (DTP) vaccine Vocal cord paralysis Paralysis of vocal cords or larynx, unsp ecified Diverticulitis Diverticulitis of colon (without mention of hemorrhage) GERD (gastroesophageal reflux disease) Esophageal reflux Hypertension Unspecified essential hypertension Lung cancer, unspecified laterality documented in this encounter Care Teams Machine Former Relationship Specialty Start Date End Date Giorgio Cardona MD PCP - General 10/04/10 04/10/17 [facility] GENERAL [place] [address] documented as of this encounter
--- OUTSIDE RECORDS SUMMARY | 2022-10-09 16:16 | XMS_ITS | Encounter Summary ---
:1940 Author Organization [facility] Address [address] [place] [address] Care Team Providers Name Role Phone Giorgio Cardona MD Primary Care Provider Reason for Visit Reason Comments Skin Check Encounter Details Date Type Department Care Team Description 02/04/2015 [facility] MD LEANDRA Nieto III (seborrheic keratosis); [address] [facility] Maloney angioma; [place] [address] [address] Telangiectasia [phone] [facility] [place], [place] [address] Social History Tobacco Use Types Packs/Day Years Used Date Smoking Tobacco: Never Smokeless Tobacco: Never Alcohol Use Standard Drinks/Week Comments Yes 0 (1 standard drink = 0.6 oz pure alcoho l) RARE Sex Assigned at Date Recorded Not on file documented as of this encounter Patient Instructions Patient InstructionsBing Phipps LPN - 02/04/2015 9:05 AM EDT Actinic Keratoses You have been diagnosed today with Actinic Keratosis (AK). These dry, scaly patches are considered the earliest stage in the development of skin cancer. In rare cases, an AK can progress to skin cancer. Because of this risk, AKs are usually treated. You were treated today with Liquid Nitrogen. This is the most common treatment for AKs. Liquid nitrogen is extremely cold, and freezes the surface of the skin, causing the lesion to flake off. Treatment with liquid nitrogen can be uncomfortable, but discomfort should subside after a couple of hours. The area treated will look red and irritated, and it may blister up or turn dark, then fall off. This is normal! You do not need any special treatment for the area, but you may find cold compresses and/or a light application of Vaseline soothing. For best results, do not rub or pick at the healing lesion. Expected healing time is 3-4 weeks. Please contact the Dermatology clinic at [phone] if the lesion has not fully resolved after 6 weeks. documented in this encounter Progress Notes Bing Phipps LPN - 02/04/2015 8:45 AM EDT DERMATOLOGY ESTABLISHED PATIENT CLINIC NOTE Date of service: 02/04/2015 Alfredito Mina : 1940 Provider: Rigoberto Jackson MD PROBLEM: skin exam SKIN HISTORY: 11/23/2014 ---Pathologic Diagnosis--- Treated with [...] Mina is a 74 y.o. year old male, established patient last seen by me on 12/08/2014. Here today for a full skin exam. He has a bump on his left forehead that he noticed and a red dot on the top of his head. Both are itchy. He is unsure how long he has had them. ADR: Allergies Allergen Reactions ??? Cyclobenzaprine Urinary [...] were not examined. Significant skin findings: A. Scalp: pink papule consistent with an angioma noted B. 0.2-0.3cm scaly irregular pink papule(s) top of the head x1 and left mid forehead x1 C. Forehead, temples and torso: Multiple 0.4-0.6cm brown papules with waxy, stuck-on appearance. Milia-like cysts, comedone-like openings and/or fissuring on dermoscopy. Occasional nevus- even pigmentation , well defined. No worrisome features on dermoscopy. D. Torso: Multiple 0.2-0.4cm bright red, well-demarcated papules ASSESSMENT/PLAN: A. Angioma/Telangiectasias scalp: Discussed benign nature of lesion and provided reassurance. No treatment necessary at this time. Monitor for change or symptoms B. Actinic keratosis - scalp and mid-forehead I discussed this condition with the patient and explored therapeutic options. I recommended LN2 Procedure Note: Procedure: Destruction of lesion(s) with cryotherapy. Number: 2 Location: as above Discussed procedure and expectations including risks (including risk of hypopigmentation) and benefits. Verbal consent obtained. Frozen with LN2, 15-30 second thaw time, TWICE. There were no complications; the patient tolerated the procedure well. Post-procedure expectations and wound care were reviewed. C. Seborrheic keratosis: forehead, temples and torso. Discussed benign nature of lesion and providedreassurance. No treatment necessary at this time as hey are not symptomatic. D. Maloney Angioma(s) Discussed benign nature of lesions and provided reassurance. No treatment necessary at this time. Follow up in 6 months, appointment made upon exiting-sooner if needed. Call with questions or concerns. The nature of sun-induced photo-aging and skin cancers is discussed. Sun avoidance, protective clothing, and the use of 30-SPF sunscreens is advised. Observe closely for skin damage/changes, and call if such occurs. I am documenting this encounter acting as the scribe for and in the presence of Dr. Jackson.: Michelle Duarte-Clinical Scribe I performed the above scribed service and agree with the accuracy of the documentation in this encounter. Rigoberto Jackson MD Section of Dermatology [facility] documented in this encounter Plan of Treatment Upcoming Encounters Date Type Specialty Care Team Description 10/11/2022 Office Visit Dermatology Virgilio Mckeon MD [facility] DR CHRISTIANO HENSON-DERMAT OLOGY [place], [place] [address] (Wo rk) 10/16/2022 Office Visit Otolaryngology Frank Buchanan MD [facility] OTOLARYNGOLOGY Sarah EPT. [place], [place] [address] (Wo rk) 11/29/2022 Appointment Hematology and Oncology 11/29/2022 Office Visit Radiation Oncology Emerald Leyva APRN [facility] RADIATION ONCOLO GY [place], [place] [address] (Wo rk) documented as of this encounter Visit Diagnoses Diagnosis AK (actinic keratosis) Actinic keratosis SK (seborrheic keratosis) Other seborrheic keratosis Maloney angioma Nevus, non-neoplastic Telangiectasia Other and unspecified capillary diseases documented in this encounter Care Teams Meter Calibrator Relationship Specialty Start Date End Date Giorgio Cardona MD PCP - General 10/04/10 04/10/17 [facility] GENERAL [place] [address] documented as of this encounter
--- OUTSIDE RECORDS SUMMARY | 2022-10-09 16:16 | XMS_ITS | Encounter Summary ---
:1940 Author Organization [facility] [place] [address] Care Team Providers Name Role Phone Giorgio Cardona MD Primary Care Provider Reason for Visit Reason Comments Medication Refill Encounter Details Date Type Department Care Team Description 05/28/2014 Refill [facility] Medicine [place] [facility] Giorgio Cardona MD [facility] [place] [address] GENERAL INTERNAL MEDICINE [phone] [place], [place] [address] (Wo rk) Social History Tobacco [...] Dermatology Virgilio Mckeon MD [facility] ER DR CHRISTIANO HENSON-DERMAT OLOGY [place], [place] [address] (Wo rk) 10/16/2022 Office Visit Otolaryngology Frank Buchanan MD [facility] ER OTOLARYNGOLOGY Sarah EPT. [place], [place] [address] (Wo rk) 11/29/2022 Appointment Hematology and Oncology 11/29/2022 Office Visit Radiation Oncology Emerald Leyva APRN [facility] RADIATION [place]COL[place], [place] [address] (Wo rk) documented as of this encounter Visit Diagnoses Not on filedocumented in this encounter Care Teams Bowling Ball Marker Relationship Specialty Start Date End Date Giorgio Cardona MD PCP - General 10/04/10 04/10/17 [facility] GENERAL [place] [address] documented as of this encounter
--- OUTSIDE RECORDS SUMMARY | 2022-10-09 16:16 | XMS_ITS | Encounter Summary ---
:1940 Author Organization [facility] [place] [address] Care Team Providers Name Role Phone Giorgio Cardona MD Primary Care Provider Encounter Details Date Type Department Care Team Description 11/21/2013 Orders Only Orthopaedics at [facility] Alessio Quezada, S/P total knee [facility] arthroplasty, right [facility] (Primary Dx) [place] [address] ORTHOPAEDIC SURGERY [place], [place] [address] Social History Tobacco Use Types [...] SPECIALTY [facility] ER DR CHRISTIANO HENSON-DERMAT OLOGY [place], [place] [address] (Wo rk) 10/16/2022 Office Visit Otolaryngology Frank Buchanan MD [facility] ER OTOLARYNGOLOGY Sarah EPT. [place], [place] [address] (Wo rk) 11/29/2022 Appointment Hematology and Oncology 11/29/2022 Office Visit Radiation Oncology Emerald Leyva APRN [facility] RADIATION ONCCESAR [place], [place] [address] (Wo rk) documented as of [...] Diagnoses Diagnosis S/P total knee arthroplasty, right - Ashlee deng S/P total knee arthroplasty, right Knee joint replacement by other means documented in this encounter Care Teams Bottled Beverage Inspector Relationship Specialty Start Date End Date Giorgio Cardona MD PCP - General 10/04/10 04/10/[address] [facility] [place] [address] documented as of this encounter
--- OUTSIDE RECORDS SUMMARY | 2022-10-09 16:16 | XMS_ITS | Encounter Summary ---
:1940 Author Organization [facility] [address] Care Team Providers Name Role Phone Giorgio Cardona MD Primary Care Provider Encounter Details Date Type Department Care Team Description 02/05/2015 Orders Only Dermatology at [facility] Skylar Alarcon LPN [address] [place] [address] Social History Tobacco Use Types Packs/Day Years [...] MD [facility] DR CHRISTIANO HENSON-DERMAT OLOGY [place], [place] [address] (Wo rk) 10/16/2022 Office Visit Otolaryngology Frank Buchanan MD [facility] OTOLARYNGOLOGY Sarah EPT. [place], [place] [address] (Wo rk) 11/29/2022 Appointment Hematology and Oncology 11/29/2022 Office Visit Radiation Oncology Emerald Leyva APRN [facility] DR RADIATION ONCOLO GY [place], [place] [address] (Wo rk) documented as of this encounter Visit Diagnoses Not on filedocumented in this encounter Care Teams Pedodontist Relationship Specialty Start Date End Date Giorgio Cardona MD PCP - General 10/04/10 04/10/17 [facility] GENER[place] [address] documented as of this encounter
--- OUTSIDE RECORDS SUMMARY | 2022-10-09 16:16 | XMS_ITS | Encounter Summary ---
:1940 Author Organization [facility] [place] [address] Care Team Providers Name Role Phone Giorgio Cardona MD Primary Care Provider Reason for Visit Reason Comments Radiation Follow-up prostate cancer Encounter Details Date Type Department Care Team Description 04/09/2014 Follow-Up Radiation Oncology at [place], Danna Pugh APRN Malignant neoplasm of [address] prostate (Primary Dx) [address] [place] [address] [place] [id number] (Wo rk) Social History Tobacco Use Types Packs/Day Years Used Date Smoking Tobacco: Never Smokeless Tobacco: Never Alcohol Use Standard Drinks/Week Comments Yes 0 (1 standard drink = 0.6 oz pure alcoho l) RARE Sex Assigned at Date Recorded Not on file documented as of this encounter Last Filed Vital Signs Vital Sign Reading Time Taken Comments Blood Pressure 123/71 04/09/2014 9:22 AM EDT Pulse 67 04/09/2014 9:22 AM EDT Temperature 36.5 ??C (97.7 ??F) 04/09/2014 9:22 AM EDT Respiratory Rate 18 04/09/2014 9:22 AM EDT Oxygen Saturation 98% 04/09/2014 9:22 AM EDT Inhaled Oxygen Concentration - - Weight 76.2 kg (168 lb) 04/09/2014 9:22 AM EDT Height - - Body Mass Index 29.29 12/24/2013 2:32 PM EST documented in this encounter Patient Instructions Patient InstructionsPaBecka richard APRN - 04/09/2014 10:06 AM EDT Laboratory Studies: date PSA Testosterone 04/07/2014 0.30 09/29/2013 0.36 698 11/07/2012 1.16 396 11/29/2011 0.81 287 05/03/2011 0.97 360 12/07/2010 1.68 424 09/12/2010 1.39 06/20/2010 1.58 03/16/2010 2.27 12/14/2009 2.3 448 11/01/09 2.8 06/22/09 2.4 01/12/09 1.6 10/14/08 1.9 09/21/08 3.5 05/20/08 1.0 02/10/08 0.9 11/19/07 1.5 08/07/07 1.3 05/27/07 2.9 post XRT 10/25/06 5.4 07/26/06 5.1 12/12/05 4.7 09/2005 4.4 09/2004 3.8 Filed Vitals: 04/09/14 0922 BP: 123/71 Pulse: 67 Temp: 36.5 ??C (97.7 ??F) TempSrc: Oral Resp: 18 Weight: 76.204 kg (168 lb) SpO2: 98% documented in this encounter Progress Notes Becka Dean APRN - 04/09/2014 9:09 AM EDT Subjective: Patient ID: Alfredito Mina is a 73 y.o. male.who is in radiation oncology clinic [...] were taken and the specimen reported in [facility] pathology under session #[id number] prostate: The right lobe apex, mid, and base negative; the left apex was 3 + 3 in 40% of one core; the left mid was 3 + 4 in 50% of one core; and the left base showed a 3 + 4 in 5% in one of two cores. This information was reviewed at [facility] on October 19, 2006, and the report paralleled that given by the [facility] institution. The [facility] session number was [id number]. The patient was then seen by Dr. [...] of Presentation 12/12/2005 Age at Presentation 66 PSA at Presentation 5.1 Presence of Symptoms at Presentation BPH Ethnicity White Result of ALBERTA normal Date of TRUS and Biopsy 09/19/2006 Volume in cc 56 Leoma grade/score a+b=c 4+3=7 Total Cores 12 Positive cores 5 Bone Scan at Presentation -negative Date of Bone Scan 12/06/2006 Prostate confined +yes OLGA -negative SV -negative Regular Nodes -negative Distant Mets -negative Date of MRI 11/23/2006 Urinary Continence at Presentation normal Primary Therapy EBRT EBRT Date Began 02/11/2007 ERBT Total Dose (Gy) 79.2 Treatment Fractions 44 Elapsed Date 04/12/2007 Concurrent ADT -negative Histologic Type Adenocarcinoma Post Primary Therapy - Sukumar Date 11/29/2011 Post Primary Therapy - Sukumar PSA 0.81 Cancer history: : 1. Adenocarcinoma of the prostate. [id number], Leoma 4+3, left lobe involved. OLGA (-), PSA [...] pathology identified. No significant change from 05/20/2012. --- Skin cancer--squamous cell--07/2013 Patient Active Problem List Diagnosis Code ??? 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 Actinic keratosis 702.0 Past Surgical History Procedure Date ??? Created by interface BRONCHOSCOPY; DX, [...] INGUINAL, RECURRENT performed by NOREEN BOWIE at [facility] MAIN OR ??? Thyroidectomy=substernal, transcerv 11/30/2011 THYROIDECTOMY, INCL. SUBSTERNAL, CERVICAL APPROACH performed by FRANK MAC at [facility] MAIN OR ??? Somatosensory test, any/all per. nerves, trunk or head 11/30/2011 FACIAL NERVE MONITORING, SETUP performed by FRANK MAC at [facility] OR ??? Upper gi endoscopy, exam 01/29/2012 UPPER GI ENDOSCOPY performed by VICKI SON at [facility] ENDOSCOPY ??? Lung cancer surgery Partial removal of R lung ??? Total knee arthroplasty 06/19/2012 @TOTAL KNEE ARTHROPLASTY performed by ADAM CARRERO at [facility] MAIN OR ??? Colonoscopy, remv cinthia, snare 01/06/2013 COLONOSCOPY, POLYPECTOMY, REMOVAL LESION BY SNARE performed by Josh Jeffery MD at [facility] ENDOSCOPY Allergies Allergen Reactions ??? Cyclobenzaprine Urinary retention, xerostomia ??? Lactose Other (See Comments) Sneezing Current Outpatient Prescriptions on File Prior to Visit Medication Sig Dispense Refill ??? amoxicillin (AMOXIL) 500 mg capsule Take 500 mg by mouth 2 times daily. Prior to dental procedure ??? acetaminophen (ACETAMINOPHEN PAIN RELIEF) 500 mg tablet Take 2 tablets by mouth every 8 hours asneeded for Pain. 30 tablet 1 ??? potassium chloride (K-DUR/KLOR-CON) 10 mEq extended release tablet Take 1 tablet by mouth daily.30 tablet 3 ??? atenolol (TENORMIN) 50 mg tablet TAKE [...] Take 1 capsule by mouth nightly. ??? omeprazole (PRILOSEC) 10 mg capsule Take 10 mg by mouth 2 times daily. ??? levothyroxine (SYNTHROID) 125 mcg tablet Take 1 tablet by mouth every morning. 30 tablet 12 Family History: Mother 2012 at age 105--she had asthma, osteoporosis. Father at age 55, smoked too much, heart problems. 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 Single. Five children and sevengrandkids. One daughter with viral respiratory problems. 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 Used to play basketball. No alcohol. Advance Directives: Completed. See advance care planning note. Interim History: Mr Mina reports that he is doing well at this time. He returned from [place] in November where he had gone to be with a friend who was dying. This is a man who played in his band for many years. He remains very sad as a result of this situation. Since his return to the area he had rotator cuff surgery involving his left shoulder. He has startedPT for this. He continues with some pain and some restriction of ROM. Ast the time of his last visit he had reported testicular tenderness/discomfort. This continues intermittently and is mild. 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 He denies urinary problems at this time. His IPSS score is 4. He is pleased with his overall urinarystatus. International Prostate Symptom Score Total Score__4_ 0 [...] regularly one or twice a day. He denies hematochezia, melena, constipation and diarrhea. He denies abdominal discomfort. He is using miralax and is finding that as a resultshis bowels are moving regularly. . He is not sexually active at this time. He reports that his respiratory symptoms are stable. He denies shortness of breath, no dyspnea, + occ cough, no Hemoptysis. He has been seen by Dr Davila for follow up of this. Review of Systems Constitutional: Positive for fatigue. Negative for fever, chills, appetite change and unexpected weight change. 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 Negative for nosebleeds and neck stiffness. Voice change due to VC injury Eyes: [...] is working very well for bowel function New hernia on the left side Genitourinary: Negative for dysuria, urgency, frequency, hematuria, decreased urine volume, difficulty urinating and testicular pain. See IPSS Leak if wait too long--sl burning if hold too long Testicles still sore--on and off intermittent--if squat down but otherwise no pain--pain associate with pressure to area Musculoskeletal: Positive for arthralgias. 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 Negative for weakness, light-headedness and headaches. Dizzy if get up too quickly Hematological: Negative. Psychiatric/Behavioral: Positive for sleep disturbance. Grieving due to the dying of close friend. Financial stressors KPS: 100 Filed Vitals: 04/09/14 0922 BP: 123/71 Pulse: 67 Temp: 36.5 ??C (97.7 ??F) TempSrc: Oral Resp: 18 Weight: 76.204 kg (168 lb) SpO2: 98% Objective: Physical Exam Vitals reviewed. Constitutional: He is oriented to person, place, and time. Vital signs are normal. He appears well-developed and well-nourished. He does not appear ill. No distress. HENT: Head: Normocephalic and atraumatic. Eyes: Conjunctivae normal and EOM are normal. No scleral icterus. Neck: Normal range of [...] is no rebound and no guarding. Genitourinary: Rectum normal, prostate normal and penis normal. Guaiac negative stool. No hemorrhoids, prostate smooth, flat, not nodular No tenderness. Guaiac negative Musculoskeletal: Normal range of motion. He exhibits no edema and no tenderness. Difficulty lifting left arm. Lymphadenopathy: Head [...] pallor. Areas of ecchymosis left upper extremity Psychiatric: He has a normal mood and affect. His behavior is normal. Judgment and thought content normal. Laboratory Studies: date PSA Testosterone 04/07/2014 0.30 09/29/2013 0.36 698 11/07/2012 1.16 [...] ectasia of left testis. Assessment and Plan: Adenocarcinoma of the prostate. [id number], Leoma 4+3, left lobe involved. OLGA (- ), PSA of 5.4 Mr Mina has a new PSA sukumar indicating excellent response to treatment with [...] [facility] DR CHRISTIANO HENSON-DERMAT OLOGY [place], [place] [address] (Wo rk) 10/16/2022 Office Visit Otolaryngology Frank Buchanan MD [facility] OTOLARYNGOLOGY D EPT. [place], [place] [address] (Wo rk) 11/29/2022 Appointment Hematology and Oncology 11/29/2022 Office Visit Radiation Oncology Emerald Leyva APRN [facility] RADIATION ONCOLO GY [place], [place] [address] (Wo rk) documented as of this encounter Visit Diagnoses Diagnosis Malignant neoplasm of prostate - Primary documented in this encounter Care Teams Construction Teacher Relationship Specialty Start Date End Date Giorgio Cardona MD PCP - General 10/04/10 04/10/17 [facility] GENER[place] [address] documented as of this encounter
--- OUTSIDE RECORDS SUMMARY | 2022-10-09 16:16 | XMS_ITS | Encounter Summary ---
:1940 Author Organization [facility] [address] Care Team Providers Name Role Phone Giorgio Cardona MD Primary Care Provider Reason for Visit Reason Onset Date Comments Follow-up 11/10/2013 Encounter Details Date Type Department Care Team Description 11/10/2013 Telephone Orthopaedics at [facility] Alessio Quezada MD Follow-up [facility] [place] [address] ORTHOPAEDIC SURGERY [phone] [place], [place] [address] (Wo rk) Social History Tobacco Use Types Packs/Day Years Used Date Smoking Tobacco: Never Smokeless Tobacco: Never Alcohol Use Standard Drinks/Week Comments Yes 0 (1 standard drink = 0.6 oz pure alcoho l) RARE Sex Assigned at Date Recorded Not on file documented as of this encounter Miscellaneous Notes Telephone Encounter - Stella Johnson - 11/21/2013 9:42 AM EST Scheduled Telephone Encounter - Destiney Goldsmith - 11/17/2013 9:45 AM EST Reminder Letter sent 11/17/13. Telephone Encounter - Destiney Goldsmith - 11/14/2013 3:34 PM EST LMOM#2 for a follow-up appointment with joints, patients is scheduled with Dr. Quezada. Telephone Encounter - Destiney Goldsmith - 11/10/2013 4:02 PM EST LMOM#1 for a follow-up appointment for his joints,patient is scheduled with Dr. Quezada. documented in this encounter Plan of Treatment Upcoming Encounters Date Type Specialty Care Team Description 10/11/2022 Office Visit Dermatology Virgilio Mckeon MD [facility] DR CHRISTIANO HENSON-DERMAT OLOGY [place], [place] [address] (Wo rk) 10/16/2022 Office Visit Otolaryngology Frank Buchanan MD [facility] OTOLARYNGOLOGY Sarah EPT. [place], [place] [address] (Wo rk) 11/29/2022 Appointment Hematology and Oncology 11/29/2022 Office Visit Radiation Oncology Emerald Leyva APRN [facility] RADIATION ONCOLO GY [place], [place] [address] (Wo rk) documented as of this encounter Visit Diagnoses Not on filedocumented in this encounter Care Teams Batch Still Operator Relationship Specialty Start Date End Date Giorgio Cardona MD PCP - General 10/04/10 04/10/17 [facility] GENER[facility] [place] [address] documented as of this encounter
--- OUTSIDE RECORDS SUMMARY | 2022-10-09 16:16 | XMS_ITS | Encounter Summary ---
:1940 Author Organization [facility] Address [place] [address] Care Team Providers Name Role Phone Arabella Rob MD Primary Care Provider Reason for Visit Reason Comments Follow-up Encounter Details Date Type Department Care Team Description 08/11/2014 Follow-Up Hematology and Alyssa López Lung c [place], Oncology at [facility] unspecified laterality [facility] (Pr imary Dx) [place] [address] Thoracic Surgery [phone] [place] [address]5425 (Wo rk) Social History Tobacco Use Types Packs/Day Years Used Date Smoking Tobacco: Never Smokeless Tobacco: Never Alcohol Use Standard Drinks/Week Comments Yes 0 (1 standard drink = 0.6 oz pure alcoho l) RARE Sex Assigned at Date Recorded Not on file documented as of this encounter Last Filed Vital Signs Vital Sign Reading Time Taken Comments Blood Pressure 127/63 08/11/2014 1:32 PM EDT Pulse 72 08/11/2014 1:32 PM EDT Temperature 36.5 ??C (97.7 ??F) 08/11/2014 1:32 PM EDT Respiratory Rate 20 08/11/2014 1:32 PM EDT Oxygen Saturation 97% 08/11/2014 1:32 PM EDT Inhaled Oxygen Concentration - - Weight 73 kg (160 lb 15 oz) 08/11/2014 1:32 PM EDT Height 161.1 cm (5' 3.43) 08/11/2014 1:32 PM EDT Body Mass Index 28.13 08/11/2014 1:32 PM EDT documented in this encounter Progress Notes Alyssa López, HELP DESK SUPPORT - 08/11/2014 1:37 PM EDT Thoracic Surgery Established Patient Follow up Visit Date of Visit: 08/11/2014 PCP: ARABELLA ROB MD Referring Physician: Patient is a 74 y.o. male with HTN, GERD and h/o prostate cancer s/p XRT who underwent VATS lobectomy on 02/09/10 for right lower lobe adenocarcinoma. He had a thyroidectomy and removal of polyps form his colon since his surgery. Procedure 02/09/2010: Bronchoscopy, Diagnostic thoracoscopy, VATS lobectomy, Mediastinal lymphadenectomy, and intercostal nerve block. Pathology: 1.1 cm invasive adenocarcinoma, with peripheral LIANET features. Well differentiated with negative margins. 0/11 lymph nodes positive for malignancy. Post operative Staging: [id number] Interval history: In the past year he has been doing well in general. However he fell off a ladder and injured his left shoulder. He had this repaired in January of this year. 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 Fell a week ago and hit his right knee on a cement floor. He denies anorexia, chills, fatigue, fevers, malaise, sweats and weight loss. Past Medical History: Patient Active Problem List Diagnosis Date Noted ??? History of squamous cell carcinoma 08/08/2013 ??? Actinic keratosis 08/08/2013 ??? Aspiration Into Lower Respiratory Tract 05/06/2013 ??? Diverticulitis 10/29/2012 ??? Preventative health care 09/18/2012 ??? Vocal cord paralysis 05/02/2012 ??? Dysphagia, unspecified 01/22/2012 ??? S/P thyroidectomy 01/08/2012 ??? Anxiety 10/30/2011 ??? 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 Post-nasal drip 08/28/2011 ??? Inguinal hernia recurrent unilateral 02/14/2011 ??? Multinodular goiter ??? Pancreatic cyst 09/12/2010 ??? Constipation 05/12/2010 ??? Dyslipidemia ??? GERD (gastroesophageal reflux disease) ??? Hypertension ??? Impaired fasting glucose ??? S/P mitral valve repair ??? Osteoarthritis ??? Prostate cancer ??? Lung cancer 12/13/2009 Past Medical History Diagnosis Date ??? Difficulty in swallowing ??? Dry mouth ??? Arthritis knee replacement right ??? Colon polyps ??? Inguinal hernia left recurrent ??? Multinodular goiter ??? GERD (gastroesophageal reflux disease) ??? Pancreatic cyst ??? Hypertension ??? Dyslipidemia ??? Lung cancer ??? Prostate cancer s/p XRT ??? Aspiration into lower respiratory tract 05/06/2013 ??? Skin cancer 07/2013 squamous cell Past Surgical History Procedure Date ??? Created [...] INGUINAL, RECURRENT performed by NOREEN BOWIE at [facility] MAIN OR ??? Thyroidectomy=substernal, transcerv 11/30/2011 THYROIDECTOMY, INCL. SUBSTERNAL, CERVICAL APPROACH performed by FRANK MAC at [facility] OR ??? Somatosensory test, any/all per. nerves, trunk or head 11/30/2011 FACIAL NERVE MONITORING, SETUP performed by FRANK MAC at [facility] OR ??? Upper gi endoscopy, exam 01/29/2012 UPPER GI ENDOSCOPY performed by VICKI SON at [facility] ENDOSCOPY ??? Lung cancer surgery Partial removal of R lung ??? Total knee arthroplasty 06/19/2012 @TOTAL KNEE ARTHROPLASTY performed by ADAM CARRERO at [facility] MAIN OR ??? Colonoscopy, victorina vicente, snare 01/06/2013 COLONOSCOPY, POLYPECTOMY, REMOVAL LESION BY SNARE performed by Josh Jeffery MD at [facility] ENDOSCOPY Review of Systems: General: Denies fatigue, weight loss, fever, chills, night sweats. Neuro: Denies seizure, TIA, CVA, neurologic deficits including tremor, incoordination, paresthesias, difficulties with memory or speech, sensory or motor disturbances, or muscular coordination. Psychiatric: Denies emotional problems, anxiety, depression, previous psychiatric care, unusual perceptions, hallucinations, and drug dependence. Cardiovascular: Denies arrythmias, CAD, family history of cardiac disease, CHF, hyperlipidemia, +HTN. Respiratory: Denies asthma, COPD, emphysema, cough, dyspnea, wheezing, stridor, hemoptysis, respiratory infection, TB or exposure to TB. GI: Denies ulcer disease, GI bleed, dysphagia, abdominal pain, heartburn, nausea, vomiting, hematemesis, jaundice, constipation, diarrhea, change in bowel habits. : Denies urgency, frequency, dysuria, nocturia, polyuria, oliguria, stones, UTI, nephritis, incontinence. Hematologic: Denies history of DVT, PE, petechiae, bleeding diathesis. Endocrine: Denies diab etes mellitus, thyroid disease, other endocrine disorder. Musculoskeletal: Denies fractures, + arthritis. Integument: Denies skin cancer. Family History: Family History Problem Relation Age of Onset ??? Asthma Mother ??? Heart Failure Father ??? Thyroid Disease Paternal Grandmother Social History: History Social History ??? Marital Status: Single Spouse Name: N/A Number of Children: N/A ??? Years of Education: N/A Occupational History ??? Not on file. Social History Main Topics ??? Smoking status: Never Smoker ??? Smokeless tobacco: Never Used ??? Alcohol Use: Yes Comment: RARE ??? Drug Use: No ??? Sexually Active: Not on file Other Topics Concern ??? Not on file Social History Narrative ??? No narrative on file Allergies: Allergies Allergen Reactions ??? Cyclobenzaprine Urinary retention, xerostomia ??? Lactose Other (See Comments) Sneezing Medications: Outpatient Prescriptions Marked as Taking for the 08/11/14 encounter (Follow-Up) with Alyssa López APRN Medication Sig Dispense Refill ??? omeprazole (PRILOSEC) [...] by mouth every morning. 30 tablet 12 Physical Exam: BP 127/63 Pulse 72 Temp 36.5 ??C (97.7 ??F) (Oral) Resp 20 Ht 161.1 cm (5' 3.43) Wt 73 kg(160 lb 15 oz) BMI 28.13 kg/m2 SpO2 97% General Appearance: Alert, cooperative, no distress, appears stated age Neck: Supple, symmetrical, trachea midline, no adenopathy; thyroid: not enlarged, symmetric, no tenderness/mass/nodules; no carotid bruit or JVD Lungs: Clear to auscultation bilaterally, respirations unlabored, no wheezes, crackles or ronchi. Heart: Regular rate and rhythm, S1 and S2 normal, no murmur, rub, or gallop Abdomen: Soft, non-tender, bowel sounds active all four quadrants, no masses, no organomegaly Extremities: Extremities normal, atraumatic, no cyanosis, 2+edema Neurologic: Normal Wound/Incision: Incision well healed Diagnostics: I have independently visualized the following studies: Chest CT scan: CT Chest Without Contrast Clinical History LUNG CANCER, S/P LOBECTOMY Comparison CT of the chest January 07, 2013. Technique CT of the chest was performed without the use of intravenous contrast. Findings The patient is status post right lower lobectomy. No evidence for recurrence at the lobectomy site is identified. No new or enlarging pulmonary nodules are identified. The central airways are clear. No pneumothorax or pleural effusion. No axillary, mediastinal, or hilar lymphadenopathy. Limited evaluation of the upper abdomen reveals unchanged appearance of the left adrenal adenoma that measures 27 mm. Normal appearance of the right adrenal gland. Exophytic simple cyst is again seen arising from the superior pole of the right kidney. No aggressive osseous lesion. The patient is status post sternotomy, and median sternotomy wires are intact. Impression 1. Stable post right lower lobectomy appearance of the right lung without evidence of new or recurrent disease. 2. Unchanged left adrenal adenoma. Assessment: Mr. Mina is a 74 y.o. male s/p right VATS lower lobectomy for stage T1aN0 adenocarcinoma who continues to do well after surgery without signs of recurrence. He feels well other than his shoulder pain. He is very active and busy at work and has no plans to retire any time soon, he enjoys his work and the people he interacts with. He is being followed closely for his colon polyps. Plan of Management: We discussed his CT scan today, which shows no new or recurrent disease and the plan for future follow up including another CT scan in 12 months for further cancer surveillance. Time for consultation: More than 20minutes of this 25minute visit was spent in direct patient counseling. ALYSSA LÓPEZ APRN [facility] Thoracic Surgery Cc: ARABELLA ROB MD documented in this encounter Plan of Treatment Upcoming Encounters Date Type Specialty Care Team Description 10/11/2022 Office Visit Dermatology Virgilio Mckeon MD [facility] DR CHRISTIANO HENSON-DERMAT [place], [place] [address] (Wo rk) 10/16/2022 Office Visit Otolaryngology Frank Buchanan MD [facility] OTOLARYNGOLOGY Sarah EPT. [place], [place] [address] (Wo rk) 11/29/2022 Appointment Hematology and Oncology 11/29/2022 Office Visit Radiation Oncology Emerald Leyva APRN [facility] RADIATION ONCOLO GY [place], [place] [address] (Wo rk) documented as of this encounter Visit Diagnoses Diagnosis Lung cancer, unspecified laterality - Pr imary documented in this encounter Care Teams Neurocritical Care Physician Relationship Specialty Start Date End Date Arabella Rob MD PCP - General 10/04/10 04/10/17 [facility] [place] [address] documented as of this encounter
--- OUTSIDE RECORDS SUMMARY | 2022-10-09 16:16 | XMS_ITS | Encounter Summary ---
:1940 Author Organization [facility] [place] [address] Care Team Providers Name Role Phone Giorgio Cardona MD Primary Care Provider Reason for Visit Reason Onset Date Comments Other 01/26/2014 lower extremity ashia a Encounter Details Date Type Department Care Team Description 01/26/2014 Telephone Internal Medicine at Oneida Bridges Other (lower extremity [facility] RN edema) [place] [address] Social History Tobacco Use Types Packs/Day Years Used Date Smoking Tobacco: Never Smokeless Tobacco: Never Alcohol Use Standard Drinks/Week Comments Yes 0 (1 standard drink = 0.6 oz pure alcoho l) RARE Sex Assigned at Date Recorded Not on file documented as of this encounter Miscellaneous Notes Telephone Encounter - Oneida Bridges RN - 01/26/2014 5:47 PM EDT Call from pt to report that he has noted increased LE edema since his surgery 10 days ago. Pt reports that he has not been elevating his feet when he sits or putting compression stockings on. Pt instructed to elevate his feet any time he is sitting down and to put his compression stockings on first thing in the am. Will have scheduling secretaries contact pt and set up appointment in next few weeks for follow up post surgery. Pt instructed to call if he develops pain, any weeping, or any sores on legs. Pt verbalized understanding and comfort with plan, will call with any questions or concerns PCP notified via eDH documented in this encounter Plan of Treatment Upcoming Encounters Date Type Specialty Care Team Description 10/11/2022 Office Visit Dermatology Virgilio Mckeon MD [facility] DR CHRISTIANO HENSON-DERMAT OLOGY [place], [place] [address] (Wo rk) 10/16/2022 Office Visit Otolaryngology Frank Buchanan MD [facility] OTOLARYNGOLOGY D EPT. [place], [place] [address] (Wo rk) 11/29/2022 Appointment Hematology and Oncology 11/29/2022 Office Visit Radiation Oncology Emerald Leyva APRN [facility] RADIATION ONCOLO GY [place], [place] [address] (Wo rk) documented as of this encounter Visit Diagnoses Not on filedocumented in this encounter Care Teams Monogram And Letter Paster Relationship Specialty Start Date End Date Giorgio Cardona MD PCP - General 10/04/10 04/10/17 [facility] [place] [address] documented as of this encounter
--- OUTSIDE RECORDS SUMMARY | 2022-10-09 16:16 | XMS_ITS | Encounter Summary ---
:1940 Author Organization [place] [address] Care Team Providers Name Role Phone Giorgio Cardona MD Primary Care Provider Reason for Visit Reason Comments Pre-op Exam LT Rotarcuff Encounter Details Date Type Department Care Team Description 12/24/2013 Office Visit Internal Medicine at Deandre Cardona MD Preop cardiovascular exam (Primary Dx); [facility] Bleeding tendency [facility] [address] GENERAL INTERNAL [place], [place] MEDICINE [address] [place] [address] [phone] Social History Tobacco Use Types Packs/Day Years Used Date Smoking Tobacco: Never Smokeless Tobacco: Never Alcohol Use Standard Drinks/Week Comments Yes 0 (1 standard drink = 0.6 oz pure alcoho l) RARE Sex Assigned at Date Recorded Not on file documented as of this encounter Last Filed Vital Signs Vital Sign Reading Time Taken Comments Blood Pressure 109/69 12/24/2013 2:32 PM EST Pulse 62 12/24/2013 2:32 PM EST Temperature - - Respiratory Rate - - Oxygen Saturation 99% 12/24/2013 2:32 PM EST Inhaled Oxygen Concentration - - Weight 70.9 kg (156 lb 6.4 oz) 12/24/2013 2:32 PM EST Height 161.3 cm (5' 3.5) 12/24/2013 2:32 PM EST Body Mass Index 27.27 12/24/2013 2:32 PM EST documented in this encounter Progress Notes Giorgio Cardona MD - 12/24/2013 2:57 PM EST Established Patient Follow-up Visit History of Presenting Illness: PREOP VISIT Went to [place], hurried up on barn 20', lost balance, no plank under ladder, hit his shoulder landed on ladder. In October. Tried therapy for 3 weeks, helped a bit. Hurts when lifts shoulder. Worse when has inactivity at this time. I have been asked by Dr. Orozco to perform a pre-operative evaluation on the patient for the proposed procedure of shoulder rotator cuff surgery and reconnect biceps Allergies: Allergies Allergen Reactions ??? Lactose Other (See Comments) Sneezing Bleeding tendencies: none Corticosteroids: no Diabetes: no Embolic Phenomenon: no Family History of Malignant Hyperthermia: no Glaucoma: no HIV/Hepatitis: no Ingestion of alcohol: no ACTIVE CARDIAC CONDITIONS (-) Unstable coronary syndromes (-) Decompensated heart failure (-) Significant arrhythmia (-) Severe valvular heart dz (-) Recent AK SURGERY SPECIFIC RISK: High risk: ( ) emergent major operation, renée. in elderly ( ) aortic and other major vascular surgery ( ) peripheral arterial surgery ( ) anticipated prolonged surgical procedures Intermediate risk: ( ) CEA ( ) head/neck surgery ( ) intraperitoneal and intrathoracic surgery (x ) orthopedic surgery ( ) prostate surgery Low risk: ( ) endoscopic procedures ( ) superficial procedure ( ) cataract surgery ( ) breast surgery Risk of cardiac or non-fatal AK: ( ) > 5% ( ) 1-5% ( x) < 1% FUNCTIONAL CAPACITY: () 1 MET: eat, dress (x ) 4 METs: walk up flight stairs () >10 mets: strenuous sports REVISED IVAN CARDIAC RISK INDEX (-) surgery: intraperitoneal, intrathoracic, suprainguinal vascular (-) hx ischemic heart dz (-) hx HF ( ) hx cerebrovascular dz (-) DM requiring insulin (-) Cr >2 Rate of cardiac , non-fatal AK, nonfatal cardiac arrest according to risk factors: (x ) None = 0.4 % ( ) 1 RF = 1.0 % ( ) 2 RF = 2.4 % ( ) > 3 RF = 5.4 % Rate of cardiac events according to risk factors without the use of beta- blockers vs. use of beta-blockers: (x ) None = 0.4-1.0 % vs. < 1 % ( ) 1-2 RF = 2.2-6.6 % vs. 00.8-1.6 % ( ) > 3 RF = > 9% vs. > 3 % Matthew et al. Circulation. 2007;[id number]:[id number] Echo March 2013 Referring: Giorgio Cardona Hand Ii Thermal Cutter: Alyssa Kunz Diagnosis:CPT Code(s): Echo Full (75916), Spectral Doppler (46513), Color Doppler (56298), Indication(s): Mitral valve repair Rhythm: Sinus HR BP 130/70 SUMMARY: 1. Left ventricular chamber size, wall thickness, global and segmental systolic function are within normal limits. Ejection fraction is estimated to be 65%. There are no left ventricular segmental wall motion abnormalities. Right ventricular chamber size, wall thickness, and systolic function are within normal limits. 2. The left atrium and right atrium are mildly dilated. 3. The aortic valve is tricuspid. The aortic valve leaflets are mildly thickened. 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 There is mild to moderate (1-2+/4+) mitral regurgitation present. The mean gradient across the mitral valve is 3 mmHg. The tricuspid valve appears normal in structure and function. There is mild (1+/4+) tricuspid regurgitation present. 4. The estimated pulmonary artery systolic pressure is 28 mmHg. The pericardium appears normal and there is no evidence of a pericardial effusion. When compared side by side to the prior 03/28/11 study, LV function appears similar, the mitral regurgitation is slightly more prominent but still in the mild to mild range. Stress Test 03/2011 - normal Patient reported measures in the past 7 [...] features. 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 [id number]; KRAS negative, EGFR negative --09/2010: CT scan - normal --02/2011: CT scan --09/2011: CT scan - negative annual CT's afterwards Outpatient Encounter Prescriptions as of 12/24/2013 Medication Sig Dispense Refill ??? potassium chloride (K-DUR/KLOR-CON) 10 mEq extended [...] rest or with movement Objective Filed Vitals: 12/24/13 1432 BP: 109/69 Pulse: 62 Height: 161.3 cm (5' 3.5) Weight: 70.943 kg (156 lb 6.4 oz) SpO2: 99% Gen -no acute distress. [...] hepatosplenomegaly, masses or distention, normal active bowel sounds. Mildly obese Extremities - No edema Neurological - grossly normal Gait: grossly intact with normal stride length, speed, and arm swing Assessment/Plan: # Pre-op Examination for Rotator Cuff Surgery # Hx Lung Cancer # Hx Thyroidectomy Discussed with the patient. I would like to get CXR, ECG reviewed (no changes), with mitral valve disease, suggest repeating echo. No need for stress at this time. Continue on current medications. 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 I counselled the patient on the above [...] one of my nurses, letter, or myD. Orders placed in this Encounter: Orders Placed This Encounter Procedures ? ? XR chest routine PA & lateral Standing Status: Future Number of Occurrences: Standing Expiration Date: 12/24/2014 Order Specific Question: Where will study be performed? Answer: [facility] Order Specific Question: Reason for exam and clinical history: Answer: pre op Order Specific Question: Portable exam? Answer: No Order Specific Question: Stat read required? Answer: No ??? CBC (with Diff) Standing Status: Future Number of Occurrences: Standing Expiration Date: 02/22/2014 ??? Comprehensive metabolic panel (non-fasting) Standing Status: Future Number of Occurrences: Standing Expiration Date: 02/22/2014 ??? Prothrombin Time Standing Status: Future Number of Occurrences: Standing Expiration Date: 03/24/2014 ??? EKG 12 Lead Order Specific Question: Which DH location will this be performed? Answer: [place] Order Specific Question: Is a rhythm strip needed? Answer: No Order Specific Question: Reason for Exam: Answer: Pre-operative cardiovascular examination ??? Echocardiogram Transthoracic(Leb) Standing Status: Future Number of Occurrences: Standing Expiration Date: 12/24/2014 Order Specific Question: Is a Bubble Study requested? Answer: No Order Specific Question: Does the patient have Congenital Heart Disease? Answer: No Order Specific Question: Does patient require sedation? Answer: None Laboratory Studies Recent Results (from the past 72 hour(s)) EKG 12-LEAD Component Value Range Ventricular rate 60 Atrial Rate 60 P-R Interval 236 QRS Duration 92 Q-T Interval 426 QTC Calculated (Bezet) 426 Calculated P [place] 52 Calculated R [place] 14 Calculated T [place] 30 INTERPRETATION Value: Sinus rhythm with 1st degree A-V block with Premature atrial complexes Otherwise normal ECG When compared with ECG of 20-MAY-2012 11:50, Premature atrial complexes are now Present documented in this encounter Miscellaneous Notes Addendum Note - Nancy Baker - 12/24/2013 3:26 PM EST Addended by: NANCY BAKER on: 12/24/2013 03:26 PM Modules accepted: Orders documented in this encounter Plan of Treatment Upcoming Encounters Date Type Specialty Care Team Description 10/11/2022 Office Visit Dermatology Virgilio Mckeon MD [facility] DR CHRISTIANO HENSON-DERMAT OLOGY [place], [place] [address] (Wo rk) 10/16/2022 Office Visit Otolaryngology Frank Buchanan MD [facility] OTOLARYNGOLOGY Sarah EPT. [place], [place] [address] (Wo rk) 11/29/2022 Appointment Hematology and Oncology 11/29/2022 Office Visit Radiation Oncology Emerald Leyva APRN [facility] RADIATION ONCOLO GY [place], [place] [address] (Wo rk) documented as of this encounter Procedures Procedure Name Priority Date/Time Associated Diagnosis Comme nts EKG 12-LEAD Routine 12/24/2013 3:45 Preop cardiovascular Resu lts for this PM EST exam procedure are i n the results section. DIFFERENTIAL, Routine 12/24/2013 3:31 Results for this AUTOMATED PM EST procedure are i n the results section. PROTHROMBIN TIME Routine 12/24/2013 3:31 Bleeding tendency Res ults for this PM EST procedure are i n the results section. CBC (WITH DIFF) Routine 12/24/2013 3:31 Preop cardiovascular R esults for this PM EST exam procedure are i n the results section. COMPREHENSIVE Routine 12/24/2013 3:31 Preop cardiovascular Res ults for this METABOLIC PANEL PM EST exam procedure ar e in (NON-FASTING) the results [...] RACQUEL Rodriguez ? (Age): 1940(73) Med Rec#: ?[id number] ? Sex: ?M ? Site Loc: ?[facility] ? Ht / Wt: ??161(cm)/71(kg) Pt. Loc: ? Echo Lab ? BSA: ?1.78 Study Date: ?12/24/2013 ? Pt. Type: Outpatient Tape: ? Referring: SUNIL Hand Ii Thermal Cutter: Nicolasa Sargent Diagnosis:CPT Code(s): ??Spectral Dopple r (60309), ??Color Doppler (05682), ??Echo Full (94595), Indication(s): ??Pre-op cardiovascular e valuation Rhythm: HR [...] ? Mid-Inferior ?Normal ? Mid-Inferoseptal ?Normal ? [place]-Septal ? Normal ? [place]-Anterior ? Normal ? [place]-Lateral ?Normal ? [place]-Inferior ? Normal ? [place]-Tip ?Normal ? Chambers ?Value ?Units (Range) ? [...] :03:02 Images reviewed and interpretation verif ied [facility] Procedure Note Isaac Pina MD - 12/24/2013Formatt ing of this note might be different from the original. Procedure: Transthoracic Echocardiogram Patient: RACQUEL Rodriguez (Age): 1940(73) Med Rec#: [id number] Sex: M Site Loc: [facility] Ht / Wt: 161(cm)/71(kg) Pt. Loc: Echo Lab BSA: 1.78 Study Date: 12/24/2013 Pt. Type: Outpati ent Tape: Referring: SUNIL Hand Ii Thermal Cutter: Nicolasa Sargent Diagnosis:CPT Code(s): Spectral Doppler (50827), Color Doppler (27659), Echo Full (18246), Indication(s): Pre-op cardiovascular ganesh luation Rhythm: HR [...] Normal Mid-Posterolateral Normal Mid-Inferior Normal Mid-Inferoseptal Normal [place]-Septal Normal [place]-Anterior Normal [place]-Lateral Normal [place]-Inferior Normal [place]-Tip Normal Chambers Value Units (Range) EF Bi-p [...] 17:03:02 Images reviewed and interpretation verif ied [facility] Giorgio Cardona MD ECHO ORDERABLES EKG 12 Lead (12/24/2013 3:45 PM EST) Component Value Ref Range Test Analysis Performed Pathologis t Method Time At Signature Ventricular rate 60 BPM MUSE SYSTEM Atrial Rate 60 BPM MUSE SYSTEM P-R Interval 236 ms MUSE SYSTEM QRS Duration 92 ms MUSE SYSTEM Q-T Interval 426 ms MUSE SYSTEM QTC Calculated 426 ms MUSE SYSTEM (Bezet) Calculated P [place] 52 degrees MUSE SYSTEM Calculated R [place] 14 degrees MUSE SYSTEM Calculated T [place] 30 degrees MUSE SYSTEM INTERPRETATION Sinus rhythm with 1st degree A-V block with Premature atrial complexes MUSE SYSTEM Abnormal ECG When compared with ECG of 20-MAY-2012 11:50, Premature atrial complexes are now Present I personally reviewed the tracing and edited the fellows int erpretation Confirmed by fellow MD Junior, Anthony Zaman ([id number]) on 12/25/2013 9:26:52 AM Confirmed by MD Mariluz, Crescencio ([id number]) on 12/25/2013 2:04:41 PM Specimen Anatomical Collection Method Collection Time Receive d Time (Source) Location / / Volume Laterality 12/24/2013 3:45 PM 4 2:04 EST PM EST Giorgio Cardona MD ECG ORDERABLES Performing Organization Address City/State/ZIP Code Phon e Number MUSE SYSTEM XR chest routine PA & lateral (12/24/2013 [...] attending Giorgio Cardona MD IMG DX ORDERABLES (ABNORMAL) Differential, Automated (12/24/2013 3:31 PM EST) [facility] Method Time Signature Neutrophils % 57.1 34.0 - CERNER 71.0 % MILLENNIUM Neutr Abs (ANC) 3.27 1.50 - CERNER 6.30 MILLENNIUM x10(3)/mc L Lymphocytes % 26.7 19.0 - CERNER 53.0 % MILLENNIUM Lymphocytes Abs 1.5 1.0 - 3.6 C[place] x10(3)/mc MILLENNIUM L Monocytes % 14.0 (H) 4.0 - CERNER 13.0 % MILLENNIUM Monocyte Abs 0.8 0.2 - 1.0 C[place] x10(3)/mc MILLENNIUM L Eosinophils % 1.7 0.0 - 7.0 CERNER % MILLENNIUM Eosinophils Abs 0.1 0.0 - 0.5 [place] x10(3)/mc MILLENNIUM L Basophils % 0.3 0.0 - 2.0 CERNER % MILLENNIUM Basophils Abs 0.0 0.0 - 0.2 C[place] x10(3)/mc MILLENNIUM L Immature Gran % 0.20 0.00 - CERNER 0.66 % MILLENNIUM Comment: Immature granulocytes(IG's)percentage an d absolute [...] Location / / Volume Laterality Blood specimen 12/24/2013 3:31 PM 014 3:38 (specimen) EST PM EST Giorgio Cardona MD HEMATOLOGY ORDERABLES Performing Organization Address City/[facility]/ZIP Code Phon e Number [address] [facility] MILLENNIUM Prothrombin Time (12/24/2013 3:31 PM EST) P athologist Signature PT 14.9 12.0 - 15.0 CERNER sec ENNIUM Comment: [facility] Transfusion Committee Guidelines: I NR less than 2.0, PTT less than OR equal to 43.5 seconds, or Fibrinogen gre ater than or equal to 100 mg/dl indicate adequate procoagulant activity for hemostasis in patients without underlying bleeding disorders. INR 1.1 0.9 - 1.[address] [facility] Specimen Anatomical Collection Method Collection Time Receive d Time (Source) Location / / Volume Laterality Blood specimen 12/24/2013 3:31 PM 014 3:38 (specimen) EST PM EST Resulting Agency Comment Spec In Lab Giorgio Cardona MD HEMATOLOGY ORDERABLES Performing Organization Address City/[facility]/ZIP Code Phon e Number [address] [facility] Comprehensive metabolic panel (non-fasting) (12/24/2013 3:31 PM EST) P athologist Signature Glucose Lvl 89 60 - 199 C[place]ER mg/dL MILLENNIUM Comment: Diabetes: >=200 mg/dL plus symp toms BUN 19 10 - 20 mg/dL C[place]ER MILLENNIU M Creatinine 1.07 0.80 - 1.50 mg/dL CERNER MILL ENNIUM Comment: Please note that the pediatric reference intervals supplied above were not validated at [facility]. Results from pediatri c patients should be interpreted in conjunction to the patient's age, height and muscle mass. Sodium 140 135 - 145 mmol/L CERNER PATRICK NIUM Potassium 4.1 3.5 - 5.0 mmol/L CERNER PATRICK NIUM [...] - 15 mmol/L CERNER MILLENNIU M Calcium 9.1 8.5 - 10.5 mg/dL CERNER PATRICK NIUM Total Protein 7.1 6.4 - 8.3 gm/dL CERNER MIL LENNIUM Albumin 4.1 3.2 - 5.2 gm/dL CERNER MILLENN IUM AST 15 0 - 39 unit/L CERNER MILLENNIU M ALT 7 0 - 55 unit/L CERNER MILLENNIU M Alk Phos 64 40 - 120 unit/L CERNER MILLENN IUM [...] the following links into your internet browser. http://www.GANTECp.nih.gov/lab-evaluation. shtml http://www.kidney.org/professionals/ Specimen Anatomical Collection Method Collection Time Receive d Time (Source) Location / / Volume Laterality Blood specimen 12/24/2013 3:31 PM 014 3:38 (specimen) EST PM EST Resulting Agency Comment Spec In Lab Giorgio Cardona MD CHEMISTRY ORDERABLES Performing Organization Address City/[facility] [place] [address] CERNER MILLENNIUM (ABNORMAL) CBC (with Diff) (12/24/2013 3:31 PM EST) P athologist Signature WBC 5.7 4.0 - 10.0 CERNER x10(3)/mcL MILLENNIUM RBC 4.38 (L) 4.63 - CERNER 6.08 MILLENNIUM x10(6)/mcL Hemoglobin 14.6 13.7 - CERNER 17.5 gm/dL MILLENNIUM Hematocrit 42.1 40.0 - CERNER 51.0 % MILLENNIUM MCV 96.1 (H) 79.0 - CERNER 92.0 fL MILLENNIUM MCH 33.3 (H) 25.6 - CERNER 32.2 pg MILLENNIUM MCHC 34.7 32.0 - CERNER 36.5 gm/dL MILLENNIUM Platelets 209 145 - 370 CERNER x10(3)/mcL MILLENNIUM RDWSD 47.6 (H) 35.0 - CERNER 46.0 fL MILLENNIUM RDWCV 13.5 10.9 - CERNER 14.4 % MILLENNIUM MPV 10.9 9.0 - 12.0 CERNER fL MILLENNIUM Specimen Anatomical Collection Method Collection Time Receive d Time (Source) Location / / Volume Laterality Blood specimen 12/24/2013 3:31 PM 014 3:38 (specimen) EST PM EST Resulting Agency Comment Spec In Lab Giorgio Cardona MD HEMATOLOGY ORDERABLES Performing Organization Address City/[facility]/[place] [address] CERNER MILLENNIUM documented in this encounter Visit Diagnoses Diagnosis Preop cardiovascular exam - Primary Pre-operative cardiovascular examination Bleeding tendency Unspecified hemorrhagic conditions Preop cardiovascular exam Pre-operative cardiovascular examination Preop cardiovascular exam Pre-operative cardiovascular examination documented in this encounter Care Teams Lehr Operator Relationship Specialty Start Date End Date Giorgio Cardona MD PCP - General 10/04/10 04/10/17 [facility] [place] [address] documented as of this encounter
--- OUTSIDE RECORDS SUMMARY | 2022-10-09 16:16 | XMS_ITS | Encounter Summary ---
:1940 Author Organization [facility] Address [facility] [place] [address] Care Team Providers Name Role Phone Giorgio Cardona MD Primary Care Provider Encounter Details Date Type Department Care Team Description 08/04/2014 Hospital Encounter XRay at [facility] [place] Right knee pain [address] [place] [address] [place] [phone] Social History Tobacco Use Types Packs/Day Years Used Date Smoking Tobacco: Never Smokeless Tobacco: Never Alcohol Use Standard Drinks/Week Comments Yes 0 (1 standard drink = 0.6 oz pure alcoho l) RARE Sex Assigned at Date Recorded Not on file documented as of this encounter Medications at Time of Discharge Medication Sig Dispensed Refills Start Date End Date omeprazole (PRILOSEC) 20 Take 1 capsule by [...] [facility] HEN[facility]DERMAT OLOGY [place], [place] [address] (Wo rk) 10/16/2022 Office Visit Otolaryngology Frank Buchanan MD [facility] OTOLARYNGOLOGY D EPT. [place], [place] [address] (Wo rk) 11/29/2022 Appointment Hematology and Oncology 11/29/2022 Office Visit Radiation Oncology Emerald Leyva APRN [facility] RADIATION ONCOLO [place], [place] [address] (Wo rk) documented as of this encounter Procedures Procedure Name Priority Date/Time Associated Comments Diagnosis XR KNEE DIAGNOSTIC 1 Routine 08/04/2014 2:01 PM Right knee severo n Results for this OR 2 VIEW EDT procedure are i n the results section. documented in this encounter Results XR knee [...] leg documented in this encounter Care Teams Military Science Instructor Relationship Specialty Start Date End Date Giorgio Cardona MD PCP - General 10/04/10 04/10/[address] [facility] [address] [place] [address] documented as of this encounter
--- OUTSIDE RECORDS SUMMARY | 2022-10-09 16:16 | XMS_ITS | Encounter Summary ---
:1940 Author Organization [facility] [place] [address] Care Team Providers Name Role Phone Giorgio Cardona MD Primary Care Provider Reason for Visit Reason Onset Date Comments Advice Only 01/13/2014 Encounter Details Date Type Department Care Team Description 01/13/2014 Telephone Orthopaedics at [facility] Alessio Quezada MD Advice Only [facility] [place] [address] ORTHOPAEDIC SURGERY [phone] [place], [place] [address] (Wo rk) Social History Tobacco Use Types Packs/Day Years Used Date Smoking Tobacco: Never Smokeless Tobacco: Never Alcohol Use Standard Drinks/Week Comments Yes 0 (1 standard drink = 0.6 oz pure alcoho l) RARE Sex Assigned at Date Recorded Not on file documented as of this encounter Miscellaneous Notes Telephone Encounter - Vannessa Schneider RN - 01/14/2014 9:11 AM EST Questions answered re Pre dental antibiotics Telephone Encounter - Nicolette Lindo - 01/13/2014 4:14 PM EST Patient has questions about premeds for dental appointments Best number [phone] documented in this encounter Plan of Treatment Upcoming Encounters Date Type Specialty Care Team Description 10/11/2022 Office Visit Dermatology Virgilio Mckeon MD [facility] DR CHRISTIANO HENSON-DERMAT OLOGY [place], [place] [address] (Wo rk) 10/16/2022 Office Visit Otolaryngology Frank Buchanan MD [facility] OTOLARYNGOLOGY Sarah EPT. [place], [place] [address] (Wo rk) 11/29/2022 Appointment Hematology and Oncology 11/29/2022 Office Visit Radiation Oncology Emerald Leyva APRN [facility] RADIATION ONCOLO GY [place], [place] [address] (Wo rk) documented as of this encounter Visit Diagnoses Not on filedocumented in this encounter Care Teams Oil Dispatcher Relationship Specialty Start Date End Date Giorgio Cardona MD PCP - General 10/04/10 04/10/17 [facility] [place] [address] documented as of this encounter
--- OUTSIDE RECORDS SUMMARY | 2022-10-09 16:16 | XMS_ITS | Encounter Summary ---
:1940 Author Organization [place] [address] Care Team Providers Name Role Phone Giorgio Cardona MD Primary Care Provider Encounter Details Date Type Department Care Team Description 01/08/2015 Telephone Dermatology at [facility] Rigoberto Jackson III, [address] [place] [address] [facility] [phone] CHRISTIANO MARRUFO-DERMAT [place], [place] [address] (Wo rk) Social History Tobacco Use Types Packs/Day Years Used Date Smoking Tobacco: Never Smokeless Tobacco: Never Alcohol Use Standard Drinks/Week Comments Yes 0 (1 standard drink = 0.6 oz pure alcoho l) RARE Sex Assigned at Date Recorded Not on file documented as of this encounter Miscellaneous Notes Telephone Encounter - Rigoberto Jackson III, MD - 01/08/2015 1:49 PM EST I called to check on the area on his back which was a superficial BCC and treated with ED & C - I. wanted to be sure it is healing well He was not available so I left a message to call if he was having problems. We will see him back as planned, sooner if needed. documented in this encounter Plan of Treatment Upcoming Encounters Date Type Specialty Care Team Description 10/11/2022 Office Visit Dermatology Virgilio Mckeon MD [facility] ER DR CHRISTIANO MARRUFO-DERMAT OLOGY [place], [place] [address] (Wo rk) 10/16/2022 Office Visit Otolaryngology Frank Buchanan MD [facility] OTOLARYNGOLOGY Sarah EPT. [place], [place] [address] (Wo rk) 11/29/2022 Appointment Hematology and Oncology 11/29/2022 Office Visit Radiation Oncology Emerald Leyva APRN [facility] RADIATION ONCOLO GY [place], [place] [address] (Wo rk) documented as of this encounter Visit Diagnoses Not on filedocumented in this encounter Care Teams Files Supervisor Relationship Specialty Start Date End Date Giorgio Cardona MD PCP - General 10/04/10 04/10/17 [facility] GENERAL [place] [address] documented as of this encounter
--- OUTSIDE RECORDS SUMMARY | 2022-10-09 16:16 | XMS_ITS | Encounter Summary ---
:1940 Author Organization [place] [address] Care Team Providers Name Role Phone Giorgio Cardona MD Primary Care Provider Encounter Details Date Type Department Care Team Description 08/11/[address] Scan at [facility], DR Malignant neoplasm [facility] CONV middle lo be, [place] [id number] Social History Tobacco Use Types Packs/Day Years [...] [facility] DR CHRISTIANO HENSON-DERMAT OLOGY [place], [place] [address] (Wo rk) 10/16/2022 Office Visit Otolaryngology Frank Buhcanan MD [facility] OTOLARYNGOLOGY D EPT. [place], [place] [address] (Wo rk) 11/29/2022 Appointment Hematology and Oncology 11/29/2022 Office Visit Radiation Oncology Emerald Leyva APRN [facility] RADIATION ONCOLO GY [place], [place] [address] (Wo rk) documented as of this encounter Procedures Procedure Name Priority Date/Time Associated Diagnosis Comme nts CT CHEST WO Routine 08/11/2014 1:15 PM Malignant neoplasm Res ults for this CONTRAST (GENERIC) EDT middle lobe, procedure are in bronchus or lung the results section. documented in this encounter Results CT chest WO contrast [...] lung documented in this encounter Care Teams Color Consultant Relationship Specialty Start Date End Date Giorgio Cardona MD PCP - General 10/04/10 04/10/17 [facility] GENER[place] [address] documented as of this encounter
--- OUTSIDE RECORDS SUMMARY | 2022-10-09 16:16 | XMS_ITS | Encounter Summary ---
:1940 Author Organization [facility] [place] [address] Care Team Providers Name Role Phone Giorgio Cardona MD Primary Care Provider Reason for Referral Physical Therapy (Routine) - Complete - Patient Will Schedule External Appt Specialty Diagnoses / Procedures Referred By Contact Refer red To Contact Physical Therapy Diagnoses Right knee pain Plantar fasciitis of right foot Ernesto Pickering APRN [facility] D R GENERAL [place] [address] Referral ID Status Reason Start Expiration Visits Visits Date Date Requested Authorized [id number] Complete - Evaluate and 06/12/2014 12/09/2014 1 1 Patient Will Treat Schedule External Appt Reason for Visit Reason Comments Knee Pain RT Foot Pain RT Dizziness Blurred Vision when getting up in the [facility] Encounter Details Date Type Department Care Team Description 06/12/2014 Follow-Up Internal Medicine at Ernesto Pickering ight knee pain (Primary Dx); [facility], DISABILITY INSURANCE HEARING OFFICER Plantar fasciitis of right foot [facility] [place] [address] GENERAL INTERNAL [phone] MEDICINE [place], [place] [address] (Wo rk) Social History Tobacco Use Types Packs/Day Years Used Date Smoking Tobacco: Never Smokeless Tobacco: Never Alcohol Use Standard Drinks/Week Comments Yes 0 (1 standard drink = 0.6 oz pure alcoho l) RARE Sex Assigned at Date Recorded Not on file documented as of this encounter Last Filed Vital Signs Vital Sign Reading Time Taken Comments Blood Pressure 106/69 06/12/2014 3:30 PM EDT Pulse 72 06/12/2014 3:30 PM EDT Temperature - - Respiratory Rate 20 06/12/2014 3:30 PM EDT Oxygen Saturation 98% 06/12/2014 3:30 PM EDT Inhaled Oxygen Concentration - - Weight 73 kg (161 lb) 06/12/2014 3:30 PM EDT pt report ed Height 161.3 cm (5' 3.5) 06/12/2014 3:30 PM EDT Body Mass Index 28.07 06/12/2014 3:30 PM EDT documented in this encounter Progress Notes Ernesto Pickering, DISABILITY INSURANCE HEARING OFFICER - 06/12/2014 3:47 PM EDT ESTABLISHED PATIENT VISIT I. HISTORY a. Reason(s) for Visit: Alfredito Mina 74 y.o. male asked to be seen for: Chief Complaint Patient presents with ??? Knee Pain RT ??? Foot Pain RT ??? Dizziness ??? Blurred Vision when getting up in the morning b. History of Present Illness: Knee pain, more on top of the knee, called deep ache. Present for sometime since he began climbing aladder again. Walks along a pitched roof and that makes it worse by the end of the day. R foot pain, on the medial heel, deep ache, worse in am, first step is the worse. Calls it a deep ache. Treats with a frozen water bottle he rolls around with his foot. Has tried a golf ball and boughtnew shoes for better arch support. Improving a little, but worse when walking up a ladder. Headache, starts over right eyebrow, in one spot, pushes on it and it improves, occasional eye blurring associated with RICHARDSON, but only over the one eye. Resolves quickly with gentle massage. Had this in the past with Actinic Keratosis of jew. He describes it as a RICHARDSON, though is clear that the pain is superficial around an area of rough skin. Dizziness with standing in the morning, only with standing quickly. No falls, drinking adequate fluids. Has been happening over past year. Does not happen during the day while working, only when standing quickly. Patient Active Problem List Diagnosis Code ??? 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 Actinic keratosis 702.0 Allergies Allergen Reactions ??? Cyclobenzaprine Urinary retention, xerostomia ??? Lactose Other (See Comments) Sneezing Current Outpatient Prescriptions on File Prior to Visit Medication Sig Dispense Refill ??? potassium chloride (K-DUR/KLOR-CON) 10 mEq extended release tablet Take 1 tablet by mouth daily.30 tablet 11 ??? polyethylene glycol (MIRALAX) 17 gram packet Take 17 g by mouth daily. ??? acetaminophen (ACETAMINOPHEN PAIN RELIEF) 500 mg tablet Take 2 tablets by mouth every 8 hours asneeded for Pain. 30 tablet 1 ??? atenolol (TENORMIN) 50 mg tablet TAKE [...] by mouth every morning. 30 tablet 12 c. Review of Systems: Constitutional - No fevers, no chills, no weight loss or gain, no fatigue Neuro - + dizziness, no change in vision, no balance issues or recent falls Cardiovascular - No CP, no palpitations, no angina Respiratory - No SOB, no NIEVES, no wheeze, no cough, no sputum production HEENT - No difficulty swallowing, no difficulty hearing, no nasal congestion, no postnasal drip Gastrointestinal - No abdominal pain, no nausea, no GERD, no constipation, no diarrhea, no blood in stool - No difficulty urinating, no dysuria, no urinary frequency, no incontinence, no nocturia Musculoskeletal - No weakness, +pain at rest or with movement Psychiatric - No depression, no anxiety, no memory loss. II. PHYSICAL EXAM Filed Vitals: 06/12/14 1530 BP: 106/69 Pulse: 72 Resp: 20 Height: 161.3 cm (5' 3.5) Weight: 73.029 kg (161 lb) SpO2: 98% General - No acute distress, conversing without difficulty. There is a small dry scaly patch of skinabove the right eye brow that he points to as the source of his pain. Not raised, no streaking, ovalshaped and very small. Lungs - Clear to auscultation bilaterally without wheeze or crackles. Heart - RRR, S1,S2, no murmur, gallop or rub. Abdomen/GI - Soft, nontender, normal active bowel sounds, neg hsm or masses. M/S - No spinal tenderness, full AROM, 5/5 MS. Neuro - Gait w/ normal stride, speed and arm swing. Right sided limp with first 3-4 steps. Extremities - No clubbing, cyanosis or edema. Pulses intact. No evidence in limitation of ROM in right knee, muscle strength and reflexes intact. No obvious injury to foot or knee. Full ROM, no bruising or swelling noted. III. ASSESSMENT/PLAN: 74-year old male with actinic keratosis, knee pain, plantar fasciitis, and orthostasis Knee pain - likely overuse injury from walking on pitched roof. Will refer to physical therapy, but suspect he will have trouble unless he changes his footing and reduces pressure. Continue symptomatictreatment Plantar Fasciitis - Same as above. Continue current treatment. May benefit from brace for sleeping in dorsiflexion Actinic Keratosis - returning to see dermatology Orthostasis - increase fluid intake during the day, ensure safety with standing, will monitor for changes in medication regiment documented in this encounter Plan of Treatment Upcoming Encounters Date Type Specialty Care Team Description 10/11/2022 Office Visit Dermatology Virgilio Mckeon MD [facility] DR CHRISTIANO HENSON-DERMAT OLOGY [place], [place] [address] (Wo rk) 10/16/2022 Office Visit Otolaryngology Frank Buchanan MD [facility] OTOLARYNGOLOGY D EPT. [place], [place] [address] (Wo rk) 11/29/2022 Appointment Hematology and Oncology 11/29/2022 Office Visit Radiation Oncology Emerald Leyva APRN [facility] RADIATION ONCOLO GY [place], [place] [address] (Wo rk) Scheduled Referrals Name Type Priority Associated Diagnoses Order S chedule Referral to Outpatient Referral Routine Right knee p ain Ordered: Physical Therapy Plantar fasciitis of 11/2013 right foot documented as of this encounter Visit Diagnoses Diagnosis Right knee pain - Primary Pain in joint, lower leg Plantar fasciitis of right foot Plantar fascial fibromatosis documented in this encounter Care Teams Career Development Associate Relationship Specialty Start Date End Date Giorgio Cardona MD PCP - General 10/04/10 04/10/17 [facility] GENERAL [place] [address] documented as of this encounter
--- OUTSIDE RECORDS SUMMARY | 2022-10-09 16:16 | XMS_ITS | Encounter Summary ---
:1940 Author Organization [place] [address] Care Team Providers Name Role Phone Giorgio Cardona MD Primary Care Provider Reason for Visit Reason Comments Urinary Retention Head Injury fell on ice hit head on stum p, headache, about 2-4 weeks ago Blurred Vision Headache Encounter Details Date Type Department Care Team Description 01/31/2014 Office Visit Family Medicine at [facility], Baljinder Maria [facility] (Primary Dx) [address] [place] [address] GENERAL INTERNAL [phone] MEDICINE [place], [place] [address] (Wo rk) Social History Tobacco Use Types Packs/Day Years Used Date Smoking Tobacco: Never Smokeless Tobacco: Never Alcohol Use Standard Drinks/Week Comments Yes 0 (1 standard drink = 0.6 oz pure alcoho l) RARE Sex Assigned at Date Recorded Not on file documented as of this encounter Last Filed Vital Signs Vital Sign Reading Time Taken Comments Blood Pressure 119/71 01/31/2014 10:05 AM EDT Pulse 75 01/31/2014 10:05 AM EDT Temperature 36.9 ??C (98.4 ??F) 01/31/2014 10:05 AM EDT Respiratory Rate 20 01/31/2014 10:05 AM EDT Oxygen Saturation 97% 01/31/2014 10:05 AM EDT Inhaled Oxygen Concentration - - Weight 73.7 kg (162 lb 8 oz) 01/31/2014 10:05 AM EDT Height - - Body Mass Index 28.33 12/24/2013 2:32 PM EST documented in this encounter Patient Instructions Patient InstructionsSalinas Russo MD - 01/31/2014 10:46 AM EDT Stop Flexeril (cyclobenzeprine) Stop the narcotic Use Tylenol for the pain - Take 1000 mg 3x/daily as needed for pain. Please call if symptoms are not improving or if you find it is getting harder to start urination. documented in this encounter Progress Notes Salinas Russo MD - 01/31/2014 10:30 AM EDT Fell off a 20 foot ladder in October. Seen in ED in [facility] with no injury. Injured shoulder. Went to [place] - pain persisted in shoulder. Underwent rotator cuff repair In mid December. Notes increased urinary frequency over the last week. Goes 5-7x/night. Prior to this could go 7 hours without urinating. Some difficulty initiating flow. Some discomfort with urinating, no burning, no hematuria. No increased thirst. No fevers, chills, [place] pain. Taking cyclobenzeprine every now and then (2-3x/week) for muscle pain and very occl narcotic (not sure what kind it is). O: NAD AB - Soft, NT, ND. U/A - negative. Assessment - urinary retention due to cyclebenzeprine and opioids. => D/C both meds. Tylenol for pain => Cyclobenzeprine added to allergy list. Patient Instructions Stop Flexeril (cyclobenzeprine) Stop the narcotic Use Tylenol for the pain - Take 1000 mg 3x/daily as needed for pain. Please call if symptoms are not improving or if you find it is getting harder to start urination. documented in this encounter Plan of Treatment Upcoming Encounters Date Type Specialty Care Team Description 10/11/2022 Office Visit Dermatology Virgilio Mckeon MD [facility] [address] RD-DERMAT OLOGY [place], [place] [address] (Wo rk) 10/16/2022 Office Visit Otolaryngology Frank Buchanan MD [facility] OTOLARYNGOLOGY Sarah EPT. [place], [place] [address] (Wo rk) 11/29/2022 Appointment Hematology and Oncology 11/29/2022 Office Visit Radiation Oncology Emerald Leyva APRN [facility] RADIATION ONCOLO GY [place], [place] [address] (Wo rk) documented as of this encounter Procedures Procedure Name Priority Date/Time Associated Diagnosis Comme nts POCT URINE DIPSTICK Routine 01/31/2014 Urine retention Resul ts for this procedure are i n the results section . documented in this encounter Results (ABNORMAL) POCT urine dipstick (01/31/2014) [facility] gist Method Time Signature POC Sp 1.000 (A) 1.002 - [place] 1.030 POC pH, UA 8 5.0 - 8.5 POC Leuk, UA neg Negative - Negative POC Nitrite, neg Negative - UA Negative POC Protein, neg Negative - UA Negative mg/dL POC Glucose, pos Normal - UA Normal mg/dL POC Ketone, neg Negative - UA Negative POC Urobil, normal 0.2 - 1.0 UA mg/dL POC Bili, UA neg Negative - Negative POC Blood, UA neg Negative - Negative josh/uL Salinas Russo MD POINT OF CARE TEST ORDERABLE S documented in this encounter Visit Diagnoses Diagnosis Urine retention - Primary Retention of urine, unspecified documented in this encounter Care Teams Jig Bore Tool Maker Relationship Specialty Start Date End Date Giorgio Cardona MD PCP - General 10/04/10 04/10/17 [facility] GENERAL [place] [address] documented as of this encounter
--- OUTSIDE RECORDS SUMMARY | 2022-10-09 16:16 | XMS_ITS | Encounter Summary ---
:1940 Author Organization [facility] [place] [address] Care Team Providers Name Role Phone Giorgio Cardona MD Primary Care Provider Reason for Visit Reason Comments Aftercare Of Tj[employer] SP R TKA DOS 06/19/2012 Encounter Details Date Type Department Care Team Description 12/02/2013 Office Visit Orthopaedics at [facility] Alessio Quezada Total knee replacement statu s, right (Primary Dx); [facility] MD Lexy Knee joint [place] [address] [place] [address] ORTHOPAEDIC SURGERY [place], [place] [address] Social History Tobacco Use Types Packs/Day Years Used Date Smoking Tobacco: Never Smokeless Tobacco: Never Alcohol Use Standard Drinks/Week Comments Yes 0 (1 standard drink = 0.6 oz pure alcoho l) RARE Sex Assigned at Date Recorded Not on file documented as of this encounter Last Filed Vital Signs Vital Sign Reading Time Taken Comments Blood Pressure 139/77 12/02/2013 10:36 AM EST RIGHT AR M Pulse 67 12/02/2013 10:36 AM EST Temperature - - Respiratory Rate - - Oxygen Saturation - - Inhaled Oxygen Concentration - - Weight 71.2 kg (157 lb) 12/02/2013 10:36 AM EST PT STAT ED Height 170.2 cm (5' 7) 12/02/2013 10:36 AM EST PT STAT ED Body Mass Index 24.59 12/02/2013 10:36 AM EST documented in this encounter Progress Notes Alessio Quezada - 12/02/2013 10:50 AM EST Mr. Mina is a 73-year-old gentleman who is now tmy-bbl-s-half year status post right total knee replacement, specifically a fixed platform stabilized knee. Despite the fact that he fell 20 feet off a ladder just a couple of weeks ago, he did not injure his knee at all, but he did injure his left shoulder and his signs and symptoms are compatible with rotator cuff pathology since he says that he had films that ruled out a fracture. In any event, he is getting physical therapy for that, but he knows Dr. Mcnair well enough so that if he plateaus at a level which is less than ideal, he will be seeing that gentleman. As far as his right knee, he has no complaints whatsoever, still climbs ladders as noted above, and basically most days he is unaware that his knee was even done. On his physical exam, he could rise from a chair without the use of his arms. He has a perfectly normal gait. He has full extension capability and flexion to 120 degrees. His alignment is excellent. The patella tracks well. There is no pain, swelling, or tenderness and he has excellent quad strength without a lag. His x rays continue to show satisfactory position of the implant. Nothing to suggest stress shielding, implant failure, loosening, or malposition. ASSESSMENT: Very satisfactory course. Admonitions about good foot care, dental prophylaxis, and probably the admonition about staying close to the ground on a regular basis was emphasized. We will see him in two years' time for followup with x rays or earlier p.r.n. CC: Giorgio Cardona MD I have made the following determinations: Post Op Right Knee Exam: Gait Abnormality: Normal Knee ROM: Extension:0 Flexion: 120 Alignment: 0-4 degrees Neutral Stability: A/P Translation <5mm. Varus (lateral stability)<5mm Valgus (medial stability) <5mm Extension La degrees or less Patella Tracking: Normal Pulses Palpable: Right PT: Yes Right DP:Yes Motor/Sensory: Distal Motor: Normal Distal Sensory: Normal Quadriceps Strength: 5 documented in this encounter Plan of Treatment Upcoming Encounters Date Type Specialty Care Team Description 10/11/2022 Office Visit Dermatology Virgilio Mckeon MD [facility] DR CHRISTIANO HENSON-DERMAT OLOGY [place], [place] [address] (Wo rk) 10/16/2022 Office Visit Otolaryngology Frank Buchanan MD [facility] OTOLARYNGOLOGY D EPT. [place], [place] [address] (Wo rk) 11/29/2022 Appointment Hematology and Oncology 11/29/2022 Office Visit Radiation Oncology Emerald Leyva APRN [facility] RADIATION ONCOLO GY [place], [place] [address] (Wo rk) documented as of this encounter Visit Diagnoses Diagnosis Total knee replacement status, right - P rimary Knee joint replacement by other means documented in this encounter Care Teams Home Health Care Provider Relationship Specialty Start Date End Date Giorgio Cardona MD PCP - General 10/04/10 04/10/17 [facility] [place] [address] documented as of this encounter
--- OUTSIDE RECORDS SUMMARY | 2022-10-09 16:16 | XMS_ITS | Encounter Summary ---
:1940 Author Organization [facility] [address] Care Team Providers Name Role Phone Giorgio Cardona MD Primary Care Provider Reason for Visit Reason Comments Skin Check Encounter Details Date Type Department Care Team Description 04/14/2014 [facility] Act[facility] Joanne GALINDO (Primary Dx) [address] [facility] Lalito B DERMATOLOGY [place], [place] [id number] [phone] Social History Tobacco Use Types Packs/Day Years Used Date Smoking Tobacco: Never Smokeless Tobacco: Never Alcohol Use Standard Drinks/Week Comments Yes 0 (1 standard drink = 0.6 oz pure alcoho l) RARE Sex Assigned at Date Recorded Not on file documented as of this encounter Patient Instructions Patient InstructionsAnay Zapata LPN - 04/14/2014 1:24 PM EDT Images from the original note were not included. [facility] Actinic Keratosis: After Your Visit Your Care Instructions Actinic keratosis is a condition that develops in sun-exposed skin. It is not skin cancer, but it can turn into skin cancer if it is not removed. Actinic keratoses, also called solar keratoses, are small red, brown, or skin-colored scaly patches. They are most common on the face, neck, hands, and forearms. Your doctor can remove these growths by freezing or scraping them off or by putting medicines on them. Follow-up care is a melchor part of your treatment and safety. Be sure to make and go to all appointments, and call your doctor if you are having problems. It's also a good idea to know your test results and keep a list of the medicines you take. How can you care for yourself at home? ?? If your doctor removes the growth, clean the area with soap and water 2 times a day unless your doctor gives you different instructions. Don't use hydrogen peroxide or alcohol, which can slow healing. ?? You may cover the wound with a thin layer of petroleum jelly, such as Vaseline, and a nonstick bandage. To prevent actinic keratosis ?? Always wear sunscreen on exposed skin. Make sure the sunscreen blocks ultraviolet rays (both UVA and UVB) and has a sun protection factor (SPF) of at least 15. Use it every day, even when it is cloudy. Some doctors may recommend a higher SPF, such as 30. ?? Wear long sleeves, a hat, and pants if you are going to be outdoors for a long time. ?? Avoid the sun between 10 a.m. and 4 p.m., the peak time for UV rays. ?? Do not use tanning booths or sunlamps. When should you call for help? Watch closely for changes in your health, and be sure to contact your doctor if: ?? The areas that were treated are red, drain pus, or have red streaks leading from them. ?? You see other growths that do not go away. ?? You do not get better as expected. Where can you learn more? Visit our health information library at [email or web address] You can also view health information on [employer], your personal patient account. Log in or sign up today. Enter L364 in the search box to learn more about Actinic Keratosis: After Your Visit. ?? [id number] [employer]. Care instructions adapted under license by [facility]. This care instruction is for use with your licensed healthcare professional. If you have questionsabout a medical condition or this instruction, always ask your healthcare professional. [employer] disclaims any warranty or liability for your use of this information. Content Version: 9.9.972464; Last Revised: December 24, 2012 documented in this encounter Progress Notes Timur Rojas MD - 04/14/2014 1:29 PM EDT Problems: 1. Six-month actinic check. 2. Status post two-week course of 5-FU application, August 2013. 3. History of Joel disease, left anterior shoulder, June 2008. Alfredito follows up and has been doing well. He has had his left shoulder repaired by Dr. Orozco, and Dr. Quezada redid his right knee, and both are working well and he is very pleased. Physical examination reveals excellent resolution of the numerous actinics previously present on the forehead and temples. He has a benign examination today of the head and neck, chest, back, hands, arms, forearms, thighs, and calves. He continues to have numerous loo red hemangiomas on the abdomen. Assessment and Plan: Actinic keratoses, facial. a. Resolved. b. I recommended I see him again in another year for repeat check. c. Congratulated on his wonderful response. d. Reinforced sun avoidance precautions. e. Nydavs-kb-nmbzue reminder in one year. COPY: Giorgio Cardona M.D. documented in this encounter Plan of Treatment Upcoming Encounters Date Type Specialty Care Team Description 10/11/2022 Office Visit Dermatology Virgilio Mckeon MD [facility] DR CHRISTIANO HENSON-DERMAT [place], [place] [address] (Leroy bhatia) 10/16/2022 Office Visit Otolaryngology Frank Buchanan MD [facility] OTOLARYNGOLOGMireille Smith EPT. [place], [place] [address] (Leroy bhatia) 11/29/2022 Appointment Hematology and Oncology 11/29/2022 Office Visit Radiation Oncology Emerald Leyva APRN [facility] RADIATION ONCOLO [place]Y [place], [place] [address] (Wo rk) documented as of this encounter Visit Diagnoses Diagnosis Actinic keratosis - Primary documented in this encounter Care Teams Roller Shop Supervisor Relationship Specialty Start Date End Date Giorgio Cardona MD PCP - General 10/04/10 04/10/17 [facility] GENERAL [place] [address] documented as of this encounter
--- OUTSIDE RECORDS SUMMARY | 2022-10-09 16:17 | XMS_ITS | Encounter Summary ---
:1940 Author Organization [facility] [place] [address] Care Team Providers Name Role Phone Giorgio Cardona MD Primary Care Provider Encounter Details Date Type Department Care Team Description 12/09/2012 [place] [facility] [place] replacement u sing cement; [address] [place] [address] [place] [address] Social History Tobacco Use Types Packs/Day [...] polyethylene glycol Take 17 g by mouth 255 g 0 10/25/20 12 09/29/2013 (MIRALAX) 17 gram/dose daily. powder atenolol (TENORMIN) 50 mg Take 0.5 tablets by 45 tablet 3 1 11/01/2013 tablet mouth daily. furosemide (LASIX) 20 mg Take 1 tablet by 30 tablet 0 07/0910/11/2018 tablet mouth daily. terazosin (HYTRIN) 2 mg Take 1 capsule by 0 07/0910/11/2018 capsule mouth nightly. senna-docusate Take 1-4 tablets by 0 06/22/2012 1 (PERICOLACE) 8.6-50 mg per mouth 2 times tablet daily. omeprazole (PRILOSEC) 10 Take 10 mg by mouth 0 04/09/2014 mg capsule 2 times daily. levothyroxine (SYNTHROID) Take 1 tablet by 30 tablet 12 12/1310/11/2018 125 mcg tablet mouth every morning. documented as of this encounter Plan of Treatment Upcoming Encounters Date Type Specialty Care Team Description 10/11/2022 Office Visit Dermatology Virgilio Mckeon MD [facility] DR CHRISTIANO HENSON-DERMAT OLOGY [place], [place] [address] (Wo rk) 10/16/2022 Office Visit Otolaryngology Frank Buchanan MD [facility] OTOLARYNGOLOGY Sarah EPT. [place], [place] [address] (Wo rk) 11/29/2022 Appointment Hematology and Oncology 11/29/2022 Office Visit Radiation Oncology Emerald Leyva APRN [facility] RADIATION ONCCESAR GY [place], [place] [address] (Wo rk) documented as of this encounter Procedures Procedure Name Priority Date/Time Associated Diagnosis Comme nts XR KNEE DIAGNOSTIC 1 Routine 12/09/2012 2:06 PM S/P total knee Results for this OR 2 VIEW EST replacement using procedure are in cement the results Knee joint section. replacement by other means documented in this encounter Results XR knee diagnostic 1 or 2 view (12/09/2012 2:06 PM EST) Anatomical Region Laterality Modality Knee N/A Radiographic Imaging Specimen (Source) Anatomical Collection Method Collection Time Re ceived Time Location / / Volume Laterality 12/09/2012 2:06 PM EST Narrative 12/09/2012 5:04 PM EST Examination KNEE 1 OR 2 VIEWS/RIGHT Clinical History S/P TKA Comparison 07/26/2012. Technique 2 views of the right knee. Findings The patient is status post right total k nee arthroplasty. ??There is no change in alignment or position. ??No abnormal lucencies to suggest loosening. ??No fracture. ??No joint effusion. ??No treviño ge in the mild medial joint space narrowing on the left. Impression No complications of right knee total art hroplasty. Film and interpretation reviewed by the attending Procedure Note Eliz Valderrama MD - 12/09/2012Formatt ing of this note might be different from the original. Examination KNEE 1 OR 2 VIEWS/RIGHT Clinical History S/P TKA Comparison 07/26/2012. Technique 2 views of the right knee. Findings The patient is status post right total k nee arthroplasty. There is no change in alignment or position. No abnormal prasad cencies to suggest loosening. No fracture. No joint effusion. No change i n the mild medial joint space narrowing on the left. Impression No complications of right knee total art hroplasty. Film and interpretation reviewed by the attending Alessio Quezada MD IMG DX ORDERABLES documented in this encounter Visit Diagnoses Diagnosis S/P total knee replacement using cement Knee joint replacement by other means Knee joint replacement by other means documented in this encounter Care Teams Customer Program Manager Relationship Specialty Start Date End Date Giorgio Cardona MD PCP - General 10/04/10 04/10/[address] [facility] [address] [place] [address] documented as of this encounter
--- OUTSIDE RECORDS SUMMARY | 2022-10-09 16:17 | XMS_ITS | Encounter Summary ---
:1940 Author Organization [facility] [place] [address] Care Team Providers Name Role Phone Giorgio Cardona MD Primary Care Provider Encounter Details Date Type Department Care Team Description 04/26/2013 Orders Only [place] [facility] [facility] [place] [address] [facility] [phone] GENERAL INTERNAL MEDICINE [place], [place] [address] (Wo rk) Social History Tobacco Use Types Packs/Day Years Used Date Smoking Tobacco: Never Smokeless Tobacco: Never Alcohol Use Standard Drinks/Week Comments Yes 0 (1 standard drink = 0.6 oz pure alcoho l) RARE Sex Assigned at Date Recorded Not on file documented as of this encounter Progress Notes Livier Salgado MD - 04/26/2013 12:42 PM EDT Zpak reordered and sent to Kelin wayne documented in this encounter Miscellaneous Notes Addendum Note - Sarah Beth Bridges RN - 04/28/2013 2:34 PM EDT Addended by: SARAH BETH BRIDGES on: 04/28/2013 02:34 PM Modules accepted: Orders documented in this encounter Plan of Treatment Upcoming Encounters Date Type Specialty Care Team Description 10/11/2022 Office Visit Dermatology Virgilio Mckeon MD [facility] [address]-DERMAT OLOGY [place], [place] [address] (Wo rk) 10/16/2022 Office Visit Otolaryngology Frank Buchanan MD [facility] OTOLARYNGOLOGY Sarah EPT. [place], [place] [address] (Wo rk) 11/29/2022 Appointment Hematology and Oncology 11/29/2022 Office Visit Radiation Oncology Emerald Leyva APRN [facility] RADIATION ONCOLO GY [place], [place] [address] (Wo rk) documented as of this encounter Visit Diagnoses Not on filedocumented in this encounter Care Teams Group Burner Machine Relationship Specialty Start Date End Date Giorgio Cardona MD PCP - General 10/04/10 04/10/17 [facility] GENERAL [place] [address] documented as of this encounter
--- OUTSIDE RECORDS SUMMARY | 2022-10-09 16:17 | XMS_ITS | Encounter Summary ---
:1940 Author Organization [facility] [address] Care Team Providers Name Role Phone Giorgio Cardona MD Primary Care Provider Reason for Visit Reason Comments Pre-op Exam Encounter Details Date Type Department Care Team Description 11/21/2012 Follow-Up Otolaryngology at [facility] Ramin Vigil Vocal cord paralysis; [facility] Sarah Bea[place]ieu MD [place] [address] [facility] [phone] [facility] DE[facility] [place], [place] [address] Social History Tobacco Use Types Packs/Day Years Used Date Smoking Tobacco: Never Smokeless Tobacco: Never Alcohol Use Standard Drinks/Week Comments No 0 (1 standard drink = 0.6 oz pure alcoho l) Sex Assigned at Date Recorded Not on file documented as of this encounter Last Filed Vital Signs Vital Sign Reading Time Taken Comments Blood Pressure - - Pulse - - Temperature - - Respiratory Rate - - Oxygen Saturation - - Inhaled Oxygen Concentration - - Weight 68 kg (150 lb) 11/21/2012 11:22 AM EST Height 170.2 cm (5' 7) 11/21/2012 11:22 AM EST Body Mass Index 23.49 11/21/2012 11:22 AM EST documented in this encounter Progress Notes Ramin Vigil MD - 11/21/2012 11:56 AM EST [facility] Follow up note Alfredito Mina is a 72 y.o. male seen in follow-up for LEFT vocal cord paralysis. New issues since last visit: He cancelled his surgery and rescheduled for December. He is concerned about his swallowing - he feels that occasionally he will aspirate thin liquids. PROBLEM LIST: Patient Active Problem List Diagnoses Code ??? Constipation 564.00 ??? Dyslipidemia 272.4 [...] Preventative health care V70.0 ??? Diverticulitis 562.11 PAST MEDICAL HISTORY: Past Medical History Diagnosis Date ??? Lung cancer ??? Prostate cancer s/p XRT ??? Difficulty in swallowing ??? Dry mouth SOCIAL HISTORY: History Substance Use Topics ??? Smoking status: Never Smoker ??? Smokeless tobacco: Never Used ??? Alcohol Use: No MEDICATIONS: Current Outpatient Prescriptions on File Prior to Visit Medication Sig Dispense Refill ??? polyethylene glycol (MIRALAX) 17 gram/dose powder Take 17 g by mouth daily. 255 g 0 ??? atenolol (TENORMIN) 50 mg tablet Take 0.5 tablets by mouth daily. 45 tablet 3 ??? furosemide (LASIX) 20 mg tablet Take 1 tablet by mouth daily. 30 tablet ??? terazosin (HYTRIN) 2 mg capsule Take 1 capsule by mouth nightly. ??? senna-docusate (PERICOLACE) 8.6-50 mg per tablet Take 1-4 tablets by mouth 2 times daily. ??? omeprazole (PRILOSEC) 10 mg capsule Take 10 mg by mouth 2 times daily. ??? levothyroxine (SYNTHROID) 125 mcg tablet Take 1 tablet by mouth every morning. 30 tablet 12 ??? aspirin 325 mg tablet Take 325 mg by mouth 2 times daily. ALLERGIES: Allergies Allergen Reactions ??? Lactose Other (See Comments) Sneezing ROS: Pertinent positive findings discussed above. No other findings on review of constitutional visual, cardiovascular, respiratory, gastrointestinal, genitourinary, musculoskeletal, dermatologic, neurological, psychiatric, endocrine, hematologic or immunologic systems. PHYSICAL EXAMINATION: General: Well developed, no distress Head/face: Normocephalic, atraumatic Resp: Breathy voice - maximum phonation time of 4 seconds PROCEDURES: Flexible Fiberoptic Laryngoscopy: Topical anesthetic and decongestant applied to the nasal cavity. Patient tolerated the procedure well without any complications. Nasal Cavity: Normal Nasopharynx: Normal Oropharynx: Normal Larynx: LEFT TVC paralysis with mid glottic gap Hypopharynx: Normal ASSESSMENT/RECOMMENDATIONS: LEFT vocal cord paralysis Will plan on Long acting (permanent Radiesse injection). In the meantime, patient was instructed to perform head turn and chin tuck to the LEFT when swallowing. He knows to call if problems - s/s aspiration pneumonia reviewed and he knows to call his PCP or my office if any s/s. I appreciate the opportunity to be involved in Mr. Mina's care. Please do not hesitate to contact me at , (office), (page banbury machine operator) or [phone] (mobile) if you have any questions. RAMIN VIGIL MD 11/21/2012 documented in this encounter Plan of Treatment Upcoming Encounters Date Type Specialty Care Team Description 10/11/2022 Office Visit Dermatology Virgilio Mckeon MD [facility] DR CHRISTIANO HENSON-DERMAT [place], [place] [address] (Wo rk) 10/16/2022 Office Visit Otolaryngology Frank Vigil MD [facility] OTOLARYNGOLOGY Sarah EPT. [place], [place] [address] (Wo rk) 11/29/2022 Appointment Hematology and Oncology 11/29/2022 Office Visit Radiation Oncology Emerald Leyva APRN [facility] RADIATION ONCOLO GY [place], [place] [address] (Wo rk) documented as of this encounter Visit Diagnoses Diagnosis Vocal cord paralysis Paralysis of vocal cords or larynx, unsp ecified S/P thyroidectomy Other postprocedural status documented in this encounter Care Teams Ekg Tech Relationship Specialty Start Date End Date Giorgio Cardona MD PCP - General 10/04/10 04/10/17 [facility] [place] [address] documented as of this encounter
--- OUTSIDE RECORDS SUMMARY | 2022-10-09 16:17 | XMS_ITS | Encounter Summary ---
:1940 Author Organization [facility] [address] Care Team Providers Name Role Phone Giorgio Cardona MD Primary Care Provider Reason for Referral Consultation (Routine) - Complete-Ref Provider Notified Specialty Diagnoses / Procedures Referred By Contact Refer red To Contact Gastroenterology Diagnoses Diverticulitis [facility] [address] [facility] Endoscopy [address] [place] [address] [place] [address] Referral ID Status Reason Start Expiration Visits Visits Date Date Requested Authorized [id number] Complete-Ref Assume 10/15/2012 04/13/2013 1 1 Provider Subset of Notified Care Reason for Visit Reason Onset Date Comments Other 10/15/2012 f/u diverticulitis Encounter Details Date Type Department Care Team Description 10/15/2012 Telephone Internal Medicine at [facility] (f/u [facility] [place] diverticulitis) [place] [address] Social History Tobacco Use Types Packs/Day Years Used Date Smoking Tobacco: Never Smokeless Tobacco: Never Alcohol Use Standard Drinks/Week Comments No 0 (1 standard drink = 0.6 oz pure alcoho l) Sex Assigned at Date Recorded Not on file documented as of this encounter Miscellaneous Notes Telephone Encounter - Rochelle Vargas RN - 10/15/2012 9:46 AM EST Pt contacted with the request to have a colonoscopy in 6-8 weeks, per Dr. Cardona. Referral placed and will send message to scheduling sec to assist with the appointment scheduling. Pt verbalized good understanding of the current POC. Telephone Encounter - Rochelle Vargas RN - 10/15/2012 9:41 AM EST Message copied by ROCHELLE VARGAS on SunOct 15, 2012 9:41 AM ------ Message from: ROCHELLE VARGAS Created: SunOct 11, 2012 5:22 PM ----- Message ----- From: Oneida Bridges RN Sent: 10/11/2012 To: Manish Deng Team Nurse ----- Message ----- From: Oneida Bridges RN Sent: 10/10/2012 4:54 PM To: Manish Deng Team Nurse ----- Message ----- From: Giorgio Cardona MD Sent: 10/10/2012 4:49 PM To: Manish Myersm Blue Team Nurse i can't remember if i sent you guys a message or not. He called earlier this week re: colonoscopy. i noted that we can defer discussion for a while. I then realized he had some diverticulitis. The CT report FINALLY came back. I reviewed this. He should have a repeat colonoscopy in about 6-8 weeks. Can you relay to him? thanks documented in this encounter Plan of Treatment Upcoming Encounters Date Type Specialty Care Team Description 10/11/2022 Office Visit Dermatology Virgilio Mckeon MD [facility] DR CHRISTIANO HENSON-DERMAT [place], [place] [address] (Wo rk) 10/16/2022 Office Visit Otolaryngology Frank Buchanan MD [facility] OTOLARYNGOLOGY Sarah EPT. [place], [place] [address] (Wo rk) 11/29/2022 Appointment Hematology and Oncology 11/29/2022 Office Visit Radiation Oncology Emerald Leyva APRN [facility] RADIATION ONCOLO GY [place], [place] [address] (Wo rk) Scheduled Referrals Name Type Priority Associated Diagnoses Order S chedule Referral to Outpatient Routine Diverticulitis Ordered: Gastroenterology Referral 10/15/2012 documented as of this encounter Visit Diagnoses Diagnosis Diverticulitis - Primary Diverticulitis of colon (without mention of hemorrhage) documented in this encounter Care Teams Pear Picker Relationship Specialty Start Date End Date Giorgio Cardona MD PCP - General 10/04/10 04/10/17 [facility] [place] [address] documented as of this encounter
--- OUTSIDE RECORDS SUMMARY | 2022-10-09 16:17 | XMS_ITS | Encounter Summary ---
:1940 Author Organization [facility] [place] [address] Care Team Providers Name Role Phone Giorgio Cardona MD Primary Care Provider Reason for Visit Reason Onset Date Comments Other 04/28/2013 echo/ MRI results Encounter Details Date Type Department Care Team Description 04/28/2013 Telephone Internal Medicine at Sarah Beth Bridges, Other (echo/ MRI [facility] RN results) [place] [address] Social History Tobacco Use Types Packs/Day Years Used Date Smoking Tobacco: Never Smokeless Tobacco: Never Alcohol Use Standard Drinks/Week Comments Yes 0 (1 standard drink = 0.6 oz pure alcoho l) RARE Sex Assigned at Date Recorded Not on file documented as of this encounter Miscellaneous Notes Telephone Encounter - Sarah Beth Bridges RN - 04/28/2013 2:29 PM EDT Call placed to pt, message left on answering machine notifying pt that echo and MRI unchanged. Telephone Encounter - Sarah Beth Bridges RN - 04/28/2013 2:28 PM EDT Message copied by SARAH BETH BRIDGES on SunApr 28, 2013 2:28 PM ------ Message from: GREGOR MASTERSON Created: Samantha Apr 27, 2013 9:55 PM Regarding: RE: Pt of Theodore Just found this, echo now read - his echo was unchanged from previous, appears to have had prior valve repair - pt just saw [place] on Sunday who may have also reported this to pt ----- Message ----- From: Sarah Beth Bridges, RN Sent: 04/02/2013 9:05 AM To: Gregor Masterson MD Subject: Pt of Giorgio's Pt asking about results of MRI and echo. The echo doesn't look like it is final yet. Let me know what I can pass on to pt documented in this encounter Plan of Treatment Upcoming Encounters Date Type Specialty Care Team Description 10/11/2022 Office Visit Dermatology Virgilio Mckeon MD [facility] DR CHRISTIANO HENSON-DERMAT OLOGY [place], [place] [address] (Wo rk) 10/16/2022 Office Visit Otolaryngology Frank Buchanan MD [facility] OTOLARYNGOLOGY Sarah EPT. [place], [place] [address] (Wo rk) 11/29/2022 Appointment Hematology and Oncology 11/29/2022 Office Visit Radiation Oncology Emerald Leyva APRN [facility] RADIATION ONCOLO GY [place], [place] [address] (Wo rk) documented as of this encounter Visit Diagnoses Not on filedocumented in this encounter Care Teams Crown [employer] Machine Set Up Mechanic Relationship Specialty Start Date End Date Giorgio Cardona MD PCP - General 10/04/10 04/10/17 [facility] GENERAL [place] [address] documented as of this encounter
--- OUTSIDE RECORDS SUMMARY | 2022-10-09 16:17 | XMS_ITS | Encounter Summary ---
:1940 Author Organization [facility] [place] [address] Care Team Providers Name Role Phone Giorgio Cardona MD Primary Care Provider Reason for Visit Reason Comments Follow-up ED in [facility] diverticulit is Encounter Details Date Type Department Care Team Description 10/25/2012 Office Visit Internal Medicine at [facility] GER D (gastroesophageal reflux disease) (Primary Dx); [facility] [place] [facility] Diverticulitis [facility] [place] GENER[place] INTERNAL [id number] MEDICINE [phone] [place], [place] [address] Social History Tobacco Use Types Packs/Day Years Used Date Smoking Tobacco: Never Smokeless Tobacco: Never Alcohol Use Standard Drinks/Week Comments No 0 (1 standard drink = 0.6 oz pure alcoho l) Sex Assigned at Date Recorded Not on file documented as of this encounter Last Filed Vital Signs Vital Sign Reading Time Taken Comments Blood Pressure 114/72 10/25/2012 12:48 PM EST Pulse 70 10/25/2012 12:48 PM EST Temperature 36.6 ??C (97.8 ??F) 10/25/2012 12:48 PM EST Respiratory Rate - - Oxygen Saturation 97% 10/25/2012 12:48 PM at rest ro om air EST Inhaled Oxygen Concentration - - Weight 68 kg (150 lb) 10/25/2012 12:48 PM EST Height - - Body Mass Index 23.49 09/18/2012 1:07 PM EST documented in this encounter Patient Instructions Patient InstructionsMikaylaSandra arayaROSITA - 10/25/2012 1:31 PM EST Reduce miralax (polyethelene glycol) to one capful three times per week Take only 1 pericolace (sennosides/doucosate) twice per day Do not take any other fiber drinks as this will effect your stomach as well High-Fiber Diet: After Your Visit Your Care Instructions Diets high in fiber can help prevent diverticulitis. Diverticulitis happens when pouches form in thewall of the colon and become inflamed or infected. More fiber in your diet should reduce symptoms, such as bloating and constipation. A high- fiber diet also will help prevent bleeding, blockage, or tears of the colon. Based on your health and what you prefer to eat, your doctor and dietitian can help you design a high-fiber diet that has at least 30 grams of fiber a day. Always talk with your doctor or dietitian before you make changes in your diet. Follow-up care is a melchor part of your treatment and safety. Be sure to make and go to all appointments, and call your doctor if you are having problems. It???s also a good idea to know your test resultsand keep a list of the medicines you take. How can you care for yourself at home? ?? Increase fiber in your diet by eating more of certain foods, including: ?? Whole-grain breads and cereals. Eat bran cereal daily to get enough fiber. ?? Fruits, such as pears, apples, and peaches. Eat the skins, peels, and seeds, if possible. ?? Vegetables, such as leafy greens, broccoli, cabbage, spinach, carrots, asparagus, and squash. ?? Starchy vegetables, such as potatoes with skins, kidney beans, and saldivar beans. ?? Take a fiber supplement, such as Citrucel, Metamucil, Benefiber, or FiberCon, every day if your doctor recommends it. Ask your doctor how much to take. ?? Each day, drink 8 to 10 glasses of water or other drinks. If you have kidney, heart, or liver disease and have to limit fluids, talk with your doctor before you increase the amount of fluids you drink. ?? Get some exercise every day. Exercise, such as walking, helps the stool move through the colon and helps prevent constipation. ?? Keep a food diary and note the foods that cause gas, pain, or other symptoms. Avoid these foods. Where can you learn more? Visit our health information library at [email or web address]. You can also view health information on [employer], your personal patient account. Log in or sign up today. Enter U654 in the search box to learn more about High-Fiber Diet: After Your Visit. ?? [id number] [employer]. Care instructions adapted under license by [facility]. This care instruction is for use with your licensed healthcare professional. If you have questionsabout a medical condition or this instruction, always ask your healthcare professional. [employer] disclaims any warranty or liability for your use of this information. Content Version: 9.1.114791; Last Revised: July 13, 2009 documented in this encounter Progress Notes Sandra Seth APRN - 10/29/2012 5:53 PM EST ESTABLISHED PATIENT VISIT I. HISTORY a. Reason(s) for Visit: Alfredito Mina 72 y.o. male asked to be seen for: Chief Complaint Patient presents with ??? Follow-up ED in [facility] diverticulitis b. History of Present Illness: Here today for ongoing bowel issues. Went to [facility] ED and was treated for diverticulitis. Took antibiotics (does not know what and we have no records) which was also for a thumb wound from a nail that he hammered into his thumb. Today he reports some ongoing bowel issues. Has been using miralax daily along with 2 pericolace bid. He is eating and drinking ok, with usual level of activity. Patient Active Problem List Diagnoses Code ??? [...] paralysis 478.30 ??? Preventative health care V70.0 Allergies Allergen Reactions ??? Lactose Other (See Comments) Sneezing Current Outpatient Prescriptions on File Prior to Visit Medication Sig Dispense Refill ??? atenolol (TENORMIN) 50 mg tablet Take 0.5 tablets by mouth daily. 45 tablet 3 ??? aspirin 325 mg tablet Take 325 mg by mouth 2 times daily. ??? furosemide (LASIX) 20 mg tablet Take [...] mouth every morning. 30 tablet 12 ??? amoxicillin-clavulanate (AUGMENTIN) 875-125 mg per tablet Take 1 tablet by mouth 2 times daily. For ten days c. Review of Systems: Constitutional - No fevers, no chills, no weight loss or gain, no fatigue Neuro - No dizziness, no change in vision, no balance issues or recent falls Cardiovascular - No CP, no palpitations, no angina Respiratory - No SOB, no NIEVES, no wheeze, no cough, no sputum production HEENT - No difficulty swallowing, no difficulty hearing, no nasal congestion, no postnasal drip Gastrointestinal - Loose stool, no abdominal pain, nausea or vomiting. - No difficulty urinating, no dysuria, no urinary frequency, no incontinence, no nocturia Musculoskeletal - No weakness, no pain at rest or with movement Psychiatric - No depression, no anxiety, no memory loss. II. PHYSICAL EXAM Filed Vitals: 10/25/12 1248 BP: 114/72 Pulse: 70 Temp: 36.6 ??C (97.8 ??F) TempSrc: Oral Weight: 68.04 kg (150 lb) SpO2: 97% General - No acute distress, conversing without difficulty. ENT - TM clear with normal light reflex, no nasal mucosal edema, oropharynx clear. Eyes - EOMI. PERRL. Neck - No lymphadenopathy, supple, no masses. No bruits. Lungs - Clear to auscultation bilaterally without wheeze or crackles. Heart - RRR, S1,S2, no murmur, gallop or rub. Abdomen/GI - Soft, nontender, normal active bowel sounds, neg hsm or masses. M/S - No spinal tenderness, full AROM, 5/5 MS. Neuro - Gait w/ normal stride, speed and arm swing. CN II-XII grossly intact. Extremities - No clubbing, cyanosis or edema. Pulses intact. III. ASSESSMENT/PLAN: 72 year old male with bout of diverticulitis with ongoing loose stool with high doses of miralax andpericolace. We will reduce cathartics, begin high fiber diet. He knows to call GI if diarrhea persists Patient Instructions Reduce miralax (polyethelene glycol) to one capful three times per week Take only 1 pericolace (sennosides/doucosate) twice per day Do not take any other fiber drinks as this will effect your stomach as well High-Fiber Diet: After Your Visit Your Care Instructions Diets high in fiber can help prevent diverticulitis. Diverticulitis happens when pouches form in thewall of the colon and become inflamed or infected. More fiber in your diet should reduce symptoms, such as bloating and constipation. A high- fiber diet also will help prevent bleeding, blockage, or tears of the colon. Based on your health and what you prefer to eat, your doctor and dietitian can help you design a high-fiber diet that has at least 30 grams of fiber a day. Always talk with your doctor or dietitian before you make changes in your diet. Follow-up care is a melchor part of your treatment and safety. Be sure to make and go to all appointments, and call your doctor if you are having problems. It???s also a good idea to know your test resultsand keep a list of the medicines you take. How can you care for yourself at home? ?? Increase fiber in your diet by eating more of certain foods, including: ?? Whole-grain breads and cereals. Eat bran cereal daily to get enough fiber. ?? Fruits, such as pears, apples, and peaches. Eat the skins, peels, and seeds, if possible. ?? Vegetables, such as leafy greens, broccoli, cabbage, spinach, carrots, asparagus, and squash. ?? Starchy vegetables, such as potatoes with skins, kidney beans, and saldivar beans. ?? Take a fiber supplement, such as Citrucel, Metamucil, Benefiber, or FiberCon, every day if your doctor recommends it. Ask your doctor how much to take. ?? Each day, drink 8 to 10 glasses of water or other drinks. If you have kidney, heart, or liver disease and have to limit fluids, talk with your doctor before you increase the amount of fluids you drink. ?? Get some exercise every day. Exercise, such as walking, helps the stool move through the colon and helps prevent constipation. ?? Keep a food diary and note the foods that cause gas, pain, or other symptoms. Avoid these foods. Where can you learn more? Visit our health information library at [email or web address]. You can also view health information on [employer], your personal patient account. Log in or sign up today. Enter U654 in the search box to learn more about High-Fiber Diet: After Your Visit. ?? [id number] [employer]. Care instructions adapted under license by [employer] [facility]. This care instruction is for use with your licensed healthcare professional. If you have questionsabout a medical condition or this instruction, always ask your healthcare professional. [employer] disclaims any warranty or liability for your use of this information. Content Version: [id number]; Last Revised: July 13, 2009 documented in this encounter Plan of Treatment Upcoming Encounters Date Type Specialty Care Team Description 10/11/2022 Office Visit Dermatology Virgilio Mckeon MD [facility] DR CHRISTIANO HENSON-DERMAT OLOGY [place], [place] [address] (Wo rk) 10/16/2022 Office Visit Otolaryngology Frank Buchanan MD [facility] OTOLARYNGOLOGY D EPT. [place], [place] [address] (Wo rk) 11/29/2022 Appointment Hematology and Oncology 11/29/2022 Office Visit Radiation Oncology Emerald Leyva APRN [facility] RADIATION ONCOLO GY [place], [place] [address] (Wo rk) documented as of this encounter Visit Diagnoses Diagnosis GERD (gastroesophageal reflux disease) - Primary Esophageal reflux Diverticulitis Diverticulitis of colon (without mention of hemorrhage) documented in this encounter Care Teams Tow Car Driver Relationship Specialty Start Date End Date Giorgio Cardona MD PCP - General 10/04/10 04/10/17 [facility] [place] [address] documented as of this encounter
--- OUTSIDE RECORDS SUMMARY | 2022-10-09 16:17 | XMS_ITS | Encounter Summary ---
:1940 [place] [address] Care Team Providers Name Role Phone Giorgio Cardona MD Primary Care Provider Reason for Visit Reason Comments Radiation Follow-up prostate cancer Encounter Details Date Type Department Care Team Description 09/29/2013 Follow-Up Radiation Oncology at [facility]N Prostate cancer (Primary Dx); [address] Jun[address] florentino [facility] RADIATION ONCOLOGY [place], [place] [id number] [place] [phone] Social History Tobacco Use Types Packs/Day Years Used Date Smoking Tobacco: Never Smokeless Tobacco: Never Alcohol Use Standard Drinks/Week Comments Yes 0 (1 standard drink = 0.6 oz pure alcoho l) RARE Sex Assigned at Date Recorded Not on file documented as of this encounter Last Filed Vital Signs Vital Sign Reading Time Taken Comments Blood Pressure 143/66 09/29/2013 8:16 AM EST Pulse 59 09/29/2013 8:16 AM EST Temperature 36.3 ??C (97.4 ??F) 09/29/2013 8:16 AM EST Respiratory Rate 18 09/29/2013 8:16 AM EST Oxygen Saturation 99% 09/29/2013 8:16 AM EST Inhaled Oxygen Concentration - - Weight 72.1 kg (159 lb) 09/29/2013 8:16 AM EST Height - - Body Mass Index 26.87 01/14/2013 1:24 PM EST documented in this encounter Patient Instructions Patient InstructionsPace, Becka Pugh, MINER ASSISTANT - 09/29/2013 11:13 AM EST Laboratory Studies: date PSA Testosterone 09/29/2013 0.36 6.98 11/07/2012 1.16 396 11/29/2011 0.81 287 05/03/2011 0.97 360 12/07/2010 1.68 424 09/12/2010 1.39 06/20/2010 1.58 03/16/2010 2.27 12/14/2009 2.3 448 11/01/09 2.8 06/22/09 2.4 01/12/09 1.6 10/14/08 1.9 09/21/08 3.5 05/20/08 1.0 02/10/08 0.9 11/19/07 1.5 08/07/07 1.3 05/27/07 2.9 post XRT 10/25/06 5.4 07/26/06 5.1 12/12/05 4.7 09/2005 4.4 09/2004 3.8 Recent Results (from the past 24 hour(s)) PSA Component Value Range PSA 0.36 0.00 - 4.00 ng/mL CBC (WITH DIFF) Component Value Range WBC 5.7 4.0 - 10.0 x10(3)/mcL RBC 4.08 (*) 4.63 - 6.08 x10(6)/mcL Hemoglobin 13.3 (*) 13.7 - 17.5 gm/dL Hematocrit 40.4 40.0 - 51.0 % MCV 99.0 (*) 79.0 - 92.0 fL MCH 32.6 (*) 25.6 - 32.2 pg MCHC 32.9 32.0 - 36.5 gm/dL Platelets 204 145 - 370 x10(3)/mcL RDWSD 49.0 (*) 35.0 - 46.0 fL RDWCV 13.6 10.9 - 14.4 % MPV 11.0 9.0 - 12.0 fL CMP W/FASTING GLUCOSE Component Value Range Glucose Fasting 115 (*) 65 - 99 mg/dL BUN 21 (*) 10 - 20 mg/dL Creatinine 1.05 0.80 - 1.50 mg/dL Sodium 140 135 - 145 mmol/L Potassium 4.1 3.5 - 5.0 mmol/L Chloride 102 98 - 107 mmol/L CO2 27 22 - 31 mmol/L Anion Gap 11 5 - 15 mmol/L Calcium 8.6 8.5 - 10.5 mg/dL Total Protein 6.9 6.4 - 8.3 gm/dL Albumin 4.1 3.2 - 5.2 gm/dL AST 19 0 - 39 unit/L ALT 10 0 - 55 unit/L Alk Phos 68 40 - 120 unit/L Total Bilirubin 0.5 0.2 - 1.3 mg/dL Bili, Direct 0.1 0.0 - 0.3 mg/dL Estimated GFR >60 >=60 HEMOGLOBIN A1C Component Value Range Hemoglobin A1C 5.8 4.3 - 6.1 % Est Avg Gluc See note LIPID PANEL (FASTING) Component Value Range Chol, Total 209 (*) <=199 mg/dL Triglycerides 56 <=149 mg/dL HDL 76 >=40 mg/dL LDL Cholesterol 122 (*) <=99 mg/dL Chol/HDL Ratio 2.8 TSH Component Value Range TSH 5.00 (*) 0.27 - 4.20 mcIU/mL T4, FREE Component Value Range Free T4 1.58 0.90 - 1.60 ng/dL DIFFERENTIAL, AUTOMATED Component Value Range Neutrophils % 65.3 34.0 - 71.0 % Neutr Abs (ANC) 3.71 1.50 - 6.30 x10(3)/mcL Lymphocytes % 19.0 19.0 - 53.0 % Lymphocytes Abs 1.1 1.0 - 3.6 x10(3)/mcL Monocytes % 13.4 (*) 4.0 - 13.0 % Monocyte Abs 0.8 0.2 - 1.0 x10(3)/mcL Eosinophils % 1.9 0.0 - 7.0 % Eosinophils Abs 0.1 0.0 - 0.5 x10(3)/mcL Basophils % 0.4 0.0 - 2.0 % Basophils Abs 0.0 0.0 - 0.2 x10(3)/mcL Immature Gran % 0.00 0.00 - 0.66 % Becki Gran Abs 0.00 0.00 - 0.05 x10(3)/mcL Filed Vitals: 09/29/13 0816 BP: 143/66 Pulse: 59 Temp: 36.3 ??C (97.4 ??F) TempSrc: Oral Resp: 18 Weight: 72.122 kg (159 lb) SpO2: 99% documented in this encounter Progress Notes Becka Dean APRN - 09/29/2013 8:21 AM EST Subjective: Patient ID: Alfredito Mina is a 73 y.o. male.who is in radiation oncology clinic today for regular followup. He was treated with external beam radiation therapy for prostate cancer and completed treatment 04/12/2007. He was enrolled in a clinical trial--RTOG 0126 arm 2. He was last seen in radiation oncology 11/07/2012. He asked to be seen today prior to the planned October appointment because he needs to go to [place] to assist a friend who is dying. HPI Mr. Mina is a male who [...] were taken and the specimen reported in [facility] pathology under session #[id number] prostate: The right lobe apex, mid, and base negative; the left apex was 3 + 3 in 40% of one core; the left mid was 3 + 4 in 50% of one core; and the left base showed a 3 + 4 in 5% in one of two cores. This information was reviewed at [facility] on October 19, 2006, and the report paralleled that given by the [facility]. The [facility] session number was [id number]. The patient was then seen by Dr. Mixon on December 26, 2005, and after review, his note indicates an IPS of 9/35. He had no difficulties with erectile dysfunction. His physical examination revealed a 30-gram prostate without nodularity, and the gland was smooth. With a PSA indicated of 5.4, a Riverton score of 4 + 3 = 7/10, [...] and Biopsy 09/19/2006 Volume in cc 56 Riverton grade/score a+b=c 4+3=7 Total Cores 12 Positive cores 5 Bone Scan at [facility] - Date of Bone Scan 12/06/2006 Prostate confined + OLGA - SV - Regular Nodes - Distant Mets - Date of MRI 11/23/2006 Urinary Continence at [facility] n Primary Therapy EBRT EBRT Date Began 02/11/2007 ERBT Total Dose (Gy) 79.2 Treatment Fractions 44 Elapsed Date 04/12/2007 Concurrent ADT - Histologic Type Adenocarcinoma Post Primary Therapy - Sukumar Date 11/29/2011 Post Primary Therapy - Sukumar PSA 0.81 Cancer history: : 1. Adenocarcinoma of the prostate. [id number], Riverton 4+3, left lobe involved. OLGA (-), PSA [...] INGUINAL, RECURRENT performed by NOREEN BOWIE at [facility] OR ??? Thyroidectomy=substernal, transcerv 11/30/2011 THYROIDECTOMY, INCL. SUBSTERNAL, CERVICAL APPROACH performed by FRANK MAC at [facility] OR ??? Somatosensory test, any/all per. nerves, trunk or head 11/30/2011 FACIAL NERVE MONITORING, SETUP performed by FRANK MAC at [facility] OR ??? Upper gi endoscopy, exam 01/29/2012 UPPER GI ENDOSCOPY performed by VICKI SON at [facility] END[facility]COPY ??? Lung cancer surgery Partial removal of R lung ??? Total knee arthroplasty 06/19/2012 @TOTAL KNEE ARTHROPLASTY performed by ADAM CARRERO at [facility] OR ??? Colonoscopy, remv cinthia, snare 01/06/2013 COLONOSCOPY, POLYPECTOMY, REMOVAL LESION BY SNARE performed by Josh Jeffery MD at [facility] ENDOSCOPY Allergies Allergen Reactions ??? Lactose Other (See [...] mouth every morning. 30 tablet 12 ??? [DISCONTINUED] fluticasone (FLONASE) 50 mcg/actuation nasal spray 1 spray by Each Nare route daily. For post nasal drip 16 g 12 ??? [DISCONTINUED] polyethylene glycol (MIRALAX) 17 gram/dose powder Take 17 g by mouth daily. 255 g0 ??? atenolol (TENORMIN) 50 mg tablet Take 0.5 tablets by mouth daily. 45 tablet 3 Family History: Mother two months ago at age 105--she had asthma, osteoporosis. Father at age 55, smoked too much, heart problems. Social History: [place]. 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 Single. Five children and sevengrandkids. One daughter with viral respiratory problems. 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 Used to play basketball. No alcohol. Advance Directives: Completed. See advance care planning note. Interim History: Mr Mina reports that he he will be leaving for [place] on Sunday to help one of his friendswho is dying. This is a man who played in his band for many years. He is very sad as a result of this situation. He also reports new problems with testicular tenderness/discomfort. He recently was working on his property and fell of his ladder when the ladder started to slip. As aresult he hurt his left shoulder and fractured three ribs. He continues to have difficulty raising his left arm. By report there was no fracture to his shoulder and no dislocation. He does have pain when he tries to raise his left arm. The only other new health concern is that he was treated for a squamous cell skin cancer by Dr Rojas in July 2013. 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 He denies urinary problems at this time. His IPSS score is 7. He is pleased with his overall urinarystatus. [...] He denies abdominal discomfort. He is using colace four tabs a day and eating bran and quiche with spinach and is finding that as a results his bowels are moving regularly. . He is not sexually active at this time. He reports that his respiratory symptoms are stable. He denies shortness of breath, no dyspnea, + occ cough, no hemoptysis Review of Systems Constitutional: Positive for fatigue. Negative for fever, chills, appetite change and unexpected weight change. Remains active --now retired from [employer]. HENT: Positive for voice change and postnasal drip. Negative for nosebleeds and neck stiffness. Voice change due to VC injury Eyes: Negative. Respiratory: Positive for cough. Negative for chest tightness, shortness of breath and wheezing. Cough when he drinks milk--white sputum Shortness of breath with exertion only Cardiovascular: Positive for leg swelling. Negative for chest pain. Pedal edema at end of day--none in am Gastrointestinal: Negative for nausea, abdominal pain, diarrhea, constipation, blood in stool, abdominal distention, anal bleeding and rectal pain. Using 4 stool softeners a day, using quiche with spinach and and bran flakes and and bowels move daily. No hematochezia Genitourinary: Negative for dysuria, urgency, frequency, hematuria, decreased urine volume, difficulty urinating and testicular pain. See IPSS Leak if wait too long Musculoskeletal: Left shoulder hurts a lot--due to recent fall and three fractured ribs--treated at [facility] in [facility] Skin: Regular follow up with Dr Rojas--dermatology Neurological: Positive for dizziness. Negative for weakness, light-headedness and headaches. Dizzy if get up too quickly Hematological: Negative. Psychiatric/Behavioral: Positive for sleep disturbance. Grieving due to the dying of close friend. Financial stressors Filed Vitals: 09/29/13 0816 BP: 143/66 Pulse: 59 Temp: 36.3 ??C (97.4 ??F) TempSrc: Oral Resp: 18 Weight: 72.122 kg (159 lb) SpO2: 99% KPS: 100 Objective: Physical Exam Vitals reviewed. Constitutional: He [...] content normal. Laboratory Studies: date PSA Testosterone 09/29/2013 0.36 698 11/07/2012 1.16 396 11/29/2011 0.81 287 05/03/2011 0.97 360 12/07/2010 1.68 424 09/12/2010 1.39 06/20/2010 1.58 03/16/2010 2.27 12/14/2009 2.3 448 11/01/09 2.8 06/22/09 2.4 01/12/09 1.6 10/14/08 1.9 09/21/08 3.5 05/20/08 1.0 02/10/08 0.9 11/19/07 1.5 08/07/07 1.3 05/27/07 2.9 post XRT 10/25/06 5.4 07/26/06 5.1 12/12/05 4.7 09/2005 4.4 09/2004 3.8 Recent Results (from the past 24 hour(s)) PSA Component Value Range PSA 0.36 0.00 - 4.00 ng/mL TESTOSTERONE, TOTAL Component Value Range Testo Total 6.98 2.80 - 8.00 ng/mL CBC (WITH DIFF) Component Value Range WBC 5.7 4.0 - 10.0 x10(3)/mcL RBC 4.08 (*) 4.63 - 6.08 x10(6)/mcL Hemoglobin 13.3 (*) 13.7 - 17.5 gm/dL Hematocrit 40.4 40.0 - 51.0 % MCV 99.0 (*) 79.0 - 92.0 fL MCH 32.6 (*) 25.6 - 32.2 pg MCHC 32.9 32.0 - 36.5 gm/dL Platelets 204 145 - 370 x10(3)/mcL RDWSD 49.0 (*) 35.0 - 46.0 fL RDWCV 13.6 10.9 - 14.4 % MPV 11.0 9.0 - 12.0 fL CMP W/FASTING GLUCOSE Component Value Range Glucose Fasting 115 (*) 65 - 99 mg/dL BUN 21 (*) 10 - 20 mg/dL Creatinine 1.05 0.80 - 1.50 mg/dL Sodium 140 135 - 145 mmol/L Potassium 4.1 3.5 - 5.0 mmol/L Chloride 102 98 - 107 mmol/L CO2 27 22 - 31 mmol/L Anion Gap 11 5 - 15 mmol/L Calcium 8.6 8.5 - 10.5 mg/dL Total Protein 6.9 6.4 - 8.3 gm/dL Albumin 4.1 3.2 - 5.2 gm/dL AST 19 0 - 39 unit/L ALT 10 0 - 55 unit/L Alk Phos 68 40 - 120 unit/L Total Bilirubin 0.5 0.2 - 1.3 mg/dL Bili, Direct 0.1 0.0 - 0.3 mg/dL Estimated GFR >60 >=60 HEMOGLOBIN A1C Component Value Range Hemoglobin A1C 5.8 4.3 - 6.1 % Est Avg Gluc See note LIPID PANEL (FASTING) Component Value Range Chol, Total 209 (*) <=199 mg/dL Triglycerides 56 <=149 mg/dL HDL 76 >=40 mg/dL LDL Cholesterol 122 (*) <=99 mg/dL Chol/HDL Ratio 2.8 FOLATE, SERUM Component Value Range Folate Lvl 17.5 4.6 - 34.8 ng/mL VITAMIN B12 Component Value Range Vitamin B-12 460 207 - 974 pg/mL TSH Component Value Range TSH 5.00 (*) 0.27 - 4.20 mcIU/mL T4, FREE Component Value Range Free T4 1.58 0.90 - 1.60 ng/dL DIFFERENTIAL, AUTOMATED Component Value Range Neutrophils % 65.3 34.0 - 71.0 % Neutr Abs (ANC) 3.71 1.50 - 6.30 x10(3)/mcL Lymphocytes % 19.0 19.0 - 53.0 % Lymphocytes Abs 1.1 1.0 - 3.6 x10(3)/mcL Monocytes % 13.4 (*) 4.0 - 13.0 % Monocyte Abs 0.8 0.2 - 1.0 x10(3)/mcL Eosinophils % 1.9 0.0 - 7.0 % Eosinophils Abs 0.1 0.0 - 0.5 x10(3)/mcL Basophils % 0.4 0.0 - 2.0 % Basophils Abs 0.0 0.0 - 0.2 x10(3)/mcL Immature Gran % 0.00 0.00 - 0.66 % Becki Gran Abs 0.00 0.00 - 0.05 x10(3)/mcL U/S scrotum: 09/29/2013--small left hydrocele and tubular ectasia of left testis. Assessment and Plan: Adenocarcinoma of the prostate. Mr Mina has a new PSA sukumar indicating excellent response to treatment. He is concerned about testicular pain. A scrotal US was ordered which he will get done at [facility]. He indicates feeling a nodule that I was not able to discern during his exam. He was reassured that this is most likely benign and that we will let him know results of U/S when received. Grief: Patient is grieving/sad that a close friend is dying. Support provided. Left shoulder pain post injury: Patient advised to discuss with his PCP but to use ice to the area and to do gentle ROM to his shoulder. Patient is to return to radiation oncology in one year for repeat PSA, and clinical evaluation. He is to call if he has questions or concerns in the meantime. 09/30/2013: Call to patient to report on his US and lab results. He was reassured that the U/S was benign but that if symptoms worsen that he is to contact me. documented in this encounter Procedure Notes Provider, Isa - 09/30/2013 12:12 PM ESTAssociated Order(s): SCAN DOC: ULTRASOUND documented in this encounter Miscellaneous Notes Advance Care Plan Note - Becka Dean APRN - 09/29/2013 8:44 AM EST ADVANCE CARE PLANNING NOTE I. WHEN TO USE THIS FORM: This Advance Care Planning Note should be used for patients with decisional capacity who have not executed advance directives, such as a Durable Power of [place] for Health Care. DETERMINATION OF CAPACITY The basis for decisional capacity entails all of the following criteria. The patient, Alfredito Mina, must be able (in a general way) to understand: ?? His condition ?? Treatment alternatives ?? Potential benefits and risks of proposed treatments/interventions The patient has the capacity to make decisions: Yes If the patient does not have decisional capacity, go no further. This form cannot be used. II. DESIGNATION OF DECISION MAKER The patient, Alfredito Mina, expresses the following preference: Designation of health care agent: The patient, Alfredito Mina, identifies the following individual to serve as a health care agent, authorized to speak for the individual in making medical treatment decisions in the future if he/she is unable to speak for him/herself. Name: Erin Mercer [phone] Relationship to patient: daughter Alternate decision maker: Name: patient's other two daughters listed as his emergency contacts. V. OTHER COMMENTS Mr Keeley has executed an advance directive. He has designated his daughter Erin as his primaryhealth care agent but his two daughters also as alternate decision makers . documented in this encounter Plan of Treatment Upcoming Encounters Date Type Specialty Care Team Description 10/11/2022 Office Visit Dermatology Virgilio Mckeon MD [facility] DR CHRISTIANO HENSON-DERMAT OLOGY [place], [place] [address] (Wo rk) 10/16/2022 Office Visit Otolaryngology Frank Buchanan MD [facility] OTOLARYNGOLOGY D EPT. [place], [place] [address] (Wo rk) 11/29/2022 Appointment Hematology and Oncology 11/29/2022 Office Visit Radiation Oncology Emerald Leyva APRN [facility] RADIATION ONCOLO GY [place], [place] [address] (Wo rk) Scheduled Orders Name Type Priority Associated Diagnoses Order S chedule PSA Lab Routine Prostate cancer Expected: , Expires: 09/29/2014 documented as of this encounter Procedures Procedure Name Priority Date/Time Associated Comments Diagnosis ULTRASOUND SCAN 09/30/2013 12:12 PM Resul ts for this (SCAN) EST procedure are i n the results section. documented in this encounter Results SCAN DOC: ULTRASOUND (09/30/2013 12:12 PM EST) Anatomical Region Laterality Modality Other Narrative 09/30/2013 12:22 PM EST Procedure Note Provider, Scanning - 09/30/2013 12:12 PM EST Scanning Provider MEDIA MGR SCAN EXT ORDR/RSLT documented in this encounter Visit Diagnoses Diagnosis Prostate cancer - Primary Malignant neoplasm of prostate Testicular discomfort Unspecified disorder of male genital org ans documented in this encounter Care Teams Safety And Health Manager Relationship Specialty Start Date End Date Giorgio Cardona MD PCP - General 10/04/10 04/10/17 [facility] GENERAL [place] [address] documented as of this encounter
--- OUTSIDE RECORDS SUMMARY | 2022-10-09 16:17 | XMS_ITS | Encounter Summary ---
:1940 Author Organization [facility] Address [facility] [place] [address] Care Team Providers Name Role Phone Arabella Rob MD Primary Care Provider Reason for Visit Reason Comments Diverticulitis Hoarse Encounter Details Date Type Department Care Team Description 11/07/2012 Office Visit Internal Medicine at Deandre Rob MD Diverticulitis; [facility] GERD (gastroesophageal reflu x disease) [facility] [address] Pereira GENERAL INTERNAL [place], [place] MEDICINE [id number] [place] [address] [phone] (Wo rk) Social History Tobacco Use Types Packs/Day Years Used Date Smoking Tobacco: Never Smokeless Tobacco: Never Alcohol Use Standard Drinks/Week Comments No 0 (1 standard drink = 0.6 oz pure alcoho l) Sex Assigned at Date Recorded Not on file documented as of this encounter Last Filed Vital Signs Vital Sign Reading Time Taken Comments Blood Pressure 96/56 11/07/2012 1:03 PM EST Pulse 64 11/07/2012 1:03 PM EST Temperature 36.6 ??C (97.9 ??F) 11/07/2012 1:03 PM EST Respiratory Rate - - Oxygen Saturation 97% 11/07/2012 1:03 PM EST Inhaled Oxygen Concentration - - Weight 68 kg (150 lb) 11/07/2012 1:03 PM EST reported Height 168.9 cm (5' 6.5) 11/07/2012 1:03 PM EST report ed Body Mass Index 23.85 11/07/2012 1:03 PM EST documented in this encounter Progress Notes Arabella Rob MD - 11/07/2012 1:09 PM EST Established Patient ACUTE Visit History of Presenting Illness: Patient here to followup on acute issues Patient PCP - ARABELLA ROB MD, MD Throat - sometimes bothers when he swallows. Coughs a lot trying to get his mucous. Has coughed up less today after drinking less milk/coffee. Thinks may be lactose. Thinks coffee is bothering his bowels. When nervous he gets pain. Worse when he is nervous. Wants to take less miralax.thinks he can get away with less Has colonoscopy scheduled for Dec 02. Has stopped coffee Patient reported measures in the past 7 days Pain:2 Physical Health:Good Mental Health:Fair Patient Active Problem List Diagnoses ??? Diverticulitis ??? Preventative health care Immunization [...] with peripheral LIANET features. Well differentiated, 1.1cm, 0 lymph nodels. [id number]; KRAS negative, EGFR negative --09/2010: CT scan - normal --02/2011: CT scan --09/2011: CT scan - negative annual CT's afterwards Outpatient Encounter Prescriptions as of 11/07/2012 Medication Sig Dispense Refill ??? polyethylene glycol [...] 325 mg by mouth 2 times daily. History Social History ??? Marital Status: Single Spouse Name: N/A Number of Children: N/A ??? Years of Education: N/A Social History Main Topics ??? Smoking status: Never Smoker ??? Smokeless tobacco: Never Used ??? Alcohol Use: No ??? Drug Use: No ??? Sexually Active: Not on file Other Topics Concern ??? Not on file Social History Narrative ??? No narrative on file Review of systems: Constitutional - (- ) [...] rest or with movement Objective Filed Vitals: 11/07/12 1303 BP: 96/56 Pulse: 64 Temp: 36.6 ??C (97.9 ??F) Height: 168.9 cm (5' 6.5) Weight: 68.04 kg (150 lb) SpO2: 97% Gen -no acute distress. Alert, responsive and comfortable Assessment/Plan: 1. Diverticulitis 2. GERD (gastroesophageal reflux disease) Discussed reasoning for repeat colonoscopy today. Additionally discussed importance of regulating bowels and reducing miralax as well. Further more noted that he has surgery coming up. Explained rationale for claritin/zyrtec as well. I counselled the patient on the above [...] my nurses, letter, or myDH. Next Appointment: PRN Total time: 25 Minutes, 16 Of the visit time was spent in [id number] counselling of the above issues documented in this encounter Plan of Treatment Upcoming Encounters Date Type Specialty Care Team Description 10/11/2022 Office Visit Dermatology Virgilio Mckeon MD [facility] DR CHRISTIANO HENSON-DERMAT OLOGY [place], [place] [address] (Leroy bhatia) 10/16/2022 Office Visit Otolaryngology Frank Buchanan MD [facility] OTOLARYNGOLOGY Sarah EPT. [place], [place] [address] (Leroy bhatia) 11/29/2022 Appointment Hematology and Oncology 11/29/2022 Office Visit Radiation Oncology Emerald Leyva APRN [facility] RADIATION ONCOLO [place], [place] [address] (Leroy bhatia) documented as of this encounter Visit Diagnoses Diagnosis Diverticulitis Diverticulitis of colon (without mention of hemorrhage) GERD (gastroesophageal reflux disease) Esophageal reflux documented in this encounter Care Teams Portfolio Administrator Relationship Specialty Start Date End Date Arabella Rob MD PCP - General 10/04/10 04/10/17 [facility] [place] [address] documented as of this encounter
--- OUTSIDE RECORDS SUMMARY | 2022-10-09 16:17 | XMS_ITS | Encounter Summary ---
:1940 Author Organization [facility] [place] [address] Care Team Providers Name Role Phone Giorgio Cardona MD Primary Care Provider Reason for Visit Reason Onset Date Comments Other 10/16/2012 nail injury to danielle contreras. Encounter Details Date Type Department Care Team Description 10/16/2012 Telephone Internal Medicine at Rochelle Vargas [place] (nail injury to [facility] RN finger.) [place] [address] Social History Tobacco Use Types Packs/Day Years Used Date Smoking Tobacco: Never Smokeless Tobacco: Never Alcohol Use Standard Drinks/Week Comments No 0 (1 standard drink = 0.6 oz pure alcoho l) Sex Assigned at Date Recorded Not on file documented as of this encounter Miscellaneous Notes Telephone Encounter - Rochelle Vargas RN - 10/16/2012 5:37 PM EST Contacted pt how states that he went to a clinic in [place], [place] Phone - [phone]. And was givenan antibiotic & a booster on his tetanus. Will call clinic in am for copy of office notes and toupdate his immunization list. Pt instructed to call clinic with any new or worsening symptoms. Telephone Encounter - Rochelle Vargas RN - 10/16/2012 5:36 PM EST Message copied by ROCHELLE VARGAS on SunOct 16, 2012 5:36 PM ------ Message from: SHERYL ZAMAN Created: SunOct 16, 2012 9:10 AM Regarding: patient called Patient called. A nail went into his finger last night a little ways. He states that it was a clean nail and that he has cleaned the finger off but because he had knee surgery he is worried about aninfection. Please call back to advise. Thank You, sheryl documented in this encounter Plan of Treatment Upcoming Encounters Date Type Specialty Care Team Description 10/11/2022 Office Visit Dermatology Virgilio Mckeon MD [facility] DR CHRISTIANO HENSON-DERMAT OLOGY [place], [place] [address] (Wo rk) 10/16/2022 Office Visit Otolaryngology Frank Buchanan MD [facility] OTOLARYNGOLOGY Sarah EPT. [place], [place] [address] (Wo rk) 11/29/2022 Appointment Hematology and Oncology 11/29/2022 Office Visit Radiation Oncology Emerald Leyva APRN [facility] RADIATION ONCOLO GY [place], [place] [address] (Wo rk) documented as of this encounter Visit Diagnoses Not on filedocumented in this encounter Care Teams Cabinet Maker Relationship Specialty Start Date End Date Giorgio Cardona MD PCP - General 10/04/10 04/10/17 [facility] [place] [address] documented as of this encounter
--- OUTSIDE RECORDS SUMMARY | 2022-10-09 16:17 | XMS_ITS | Encounter Summary ---
:1940 Author Organization [facility] [place] [address] Care Team Providers Name Role Phone Giorgio Cardona MD Primary Care Provider Reason for Referral Consultation (Routine) - Closed Specialty Diagnoses / Procedures Referred By Contact Refer red To Contact Dermatology Diagnoses ?SCC vs AK Salinas Russo MD [facility] 4m [facility] GENERAL INTERNAL [place], [place] [address] [place] [address] Referral ID Status Reason Start Date Expiration Date Visits V isits Requested Authorized [id number] Closed Consult, 04/25/2013 10/22/2013 1 1 Test & Treat Reason for Visit Reason Comments Cough tickle in chest and pt is co ughing up white phlem Chills Headache Results pt had labs and chest xray Encounter Details Date Type Department Care Team Description 04/25/2013 Office Visit Internal Medicine at Salinas Russo S OB (shortness of breath) (Primary Dx); [facility] SCC (spinal cord compression); [facility] Ski n lesion; Drive DR [address]; [place], [place] GENERAL INTERNAL URI (upper respiratory infection) [id number] MEDICINE [phone] [place], [place] [address] (Wo rk) Social History Tobacco Use Types Packs/Day Years Used Date Smoking Tobacco: Never Smokeless Tobacco: Never Alcohol Use Standard Drinks/Week Comments Yes 0 (1 standard drink = 0.6 oz pure alcoho l) RARE Sex Assigned at Date Recorded Not on file documented as of this encounter Last Filed Vital Signs Vital Sign Reading Time Taken Comments Blood Pressure 105/56 04/25/2013 3:48 PM EDT Pulse 63 04/25/2013 3:48 PM EDT Temperature - - Respiratory Rate - - Oxygen Saturation 97% 04/25/2013 3:48 PM EDT at rest room air Inhaled Oxygen Concentration - - Weight - - Height - - Body Mass Index - - documented in this encounter Progress Notes Salinas Russo MD - 04/28/2013 7:34 AM EDT Mr. Mina is a 72 y/o male w/ a PMHx significant for lung cancer (s/p RLL lobectomy 2010, [id number]) who presents for the acute onset of cough and SOB. Symptoms started over the last 24 hours. His breathing felt tight last night and he started coughingthis morning. Brings up white stuff. No purulence, no blood. 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 Notes some chills and clear rhinorhea. No fever, h/a, n/v/d. Denies SOB. Denies any sick contacts. Patient is also concerned about a spot on his forehead (has had for a year, hurts to touch it). Never been looked at by Derm. Filed Vitals: 04/25/13 1548 BP: 105/56 Pulse: 63 O2 saturation: 97% before nebulizer, 100% after nebulizer. PE: Gen: Alert, NAD. HEENT: 0.5 cm Erythematous papule in midline, above eyebrows. Pulm: Very mild scattered wheezes on inspiration and expiration, otherwise CTAB. No use of accessorymuscles of breathing. Not coughing during appointment. Cards: RRR, S1, S2 Ex:No edema Labs: CBC, BMP wnl. CXR with no changes from previous recent x-ray, no infiltrate or edema. Assessment/Plan: URI. Normal labs and x-ray Physical exam and lack of hypoxia reassuring. Given patient's age and pending weekend will give him a prescription for Azithromycin but suggested he not fill it unless sx worsen or do not resolve by early next week. Encouraged patient to rest, take in fluids. ? SCC v AK - Will refer patient to Dermatology Gisell Escamilla - 04/25/2013 3:53 PM EDT Mr. Mina is a 72 y/o male w/ a PMHx significant for lung cancer (s/p RLL lobectomy 2009, [id number]) who presents for the acute onset of cough and SOB. Patient indicates that his symptoms started over the last 24 hours. His breathing felt tight last night and he started coughing this morning. Patient feels tickling in his lungs that makes him cough. Brings up white stuff. No purulence, no blood. Patient has a chronic cough--nipped voice box during thy roidectomy and indicates he has problems with aspiration when eats. He notes this new cough is similar to one last year that made him cough so hard he got a hernia Patient relays that although his cough is the worst part of his symptoms he also aches all over, shivers, feels cold, and his nose runs more than normal. Has a RICHARDSON and blurry vision over the last 2-3 weeks that he indicates feels like a haze.. He denies SOB. Patient is also concerned about a spot on his forehead (has had for a year, hurts to touch it). Never been looked at by Derm. Yesterday didn't take his atenolol, otherwise denies any changes in medication. Denies any sick contacts. Filed Vitals: 04/25/13 1548 BP: 105/56 Pulse: 63 O2 saturation: 97% before nebulizer, 100% after nebulizer. PE: Gen: Alert, NAD. HEENT: Erythematous papule in midline, above eyebrows. Pulm: Mild scattered wheezes on inspiration and expiration, otherwise CTAB. No use of accessory muscles of breathing. Not coughing during appointment. Cards: RRR, S1, S2 Labs: CBC, BMP wnl. CXR with no changes from most recent x-ray. Assessment/Plan: Mr. Mina is a 72 y/o male who presents with the onset of what is most likely a URI. Normal labs and x-ray are reassuring that patient does not yet have a big infectious process (pneumonia) or more serious condition (PE, pneumothorax, malignancy). Physical exam and lack of hypoxia are also reassuring. Given patient's age and past history of lung cancer will provide patient with a prescription for Azithromycin (to cover gram negatives and atypicals) in case his cough organizes into a community acquired pneumonia. Encouraged patient to rest, take in fluids and not to fill Abx. prescription unless hissymptoms continue to worsen over the weekend. Will refer patient to Dermatology, forehead papule has appearance of possible actinic keratosis. KETAN Gonzalez IV documented in this encounter Plan of Treatment Upcoming Encounters Date Type Specialty Care Team Description 10/11/2022 Office Visit Dermatology Virgilio Mckeon MD [facility] DR CHRISTIANO HENSON-DERMAT OLOGY [place], [place] [address] ( sriram) 10/16/2022 Office Visit Otolaryngology Frank Buchanan MD [facility] OTOLARYNGOLOGY Sarah EPT. [place], [place] [address] (Leroy bhatia) 11/29/2022 Appointment Hematology and Oncology 11/29/2022 Office Visit Radiation Oncology Emerald Leyva APRN [facility] RADIATION ONCCESAR GY [place], [place] [address] (Leroy bhatia) Scheduled Referrals Name Type Priority Associated Order Schedule Diagnoses Referral to Outpatient Referral Routine SCC (spinal cord Orde red: Dermatology compression) 04/25/2013 documented as of this encounter Procedures Procedure Name Priority Date/Time Associated Diagnosis Comme nts DIFFERENTIAL, STAT 04/25/2013 2:54 PM Results for this AUTOMATED EDT procedure are i n the results section. CBC (WITH DIFF) STAT 04/25/2013 2:54 PM SOB (shortness of R esults for this EDT breath) procedure are i n the results section. BASIC METABOLIC STAT 04/25/2013 2:54 PM SOB (shortness of R esults for this PANEL (NON-FASTING) EDT breath) procedur e are in the results section. documented in this encounter Results Differential, Automated (04/25/2013 2:54 PM EDT) P athologist Signature Neutrophils % 63.7 34.0 - CERNER 71.0 % MILLENNIUM Neutr Abs (ANC) 3.58 1.50 - CERNER 6.30 MILLENNIUM x10(3)/mcL Lymphocytes % 22.2 19.0 - CERNER 53.0 % MILLENNIUM Lymphocytes Abs 1.2 1.0 - 3.6 CERNER x10(3)/mcL MILLENNIUM Monocytes % 12.3 4.0 - 13.0 CERNER % MILLENNIUM Monocyte Abs 0.7 0.2 - 1.0 CERNER x10(3)/mcL MILLENNIUM Eosinophils % 1.4 0.0 - 7.0 CERNER % MILLENNIUM Eosinophils Abs 0.1 0.0 - 0.5 CERNER x10(3)/mcL MILLENNIUM Basophils % 0.4 0.0 - 2.0 CERNER % MILLENNIUM Basophils Abs 0.0 0.0 - 0.2 CERNER x10(3)/mcL MILLENNIUM Immature Gran % 0.00 0.00 - CERNER 0.66 % MILLENNIUM Comment: Immature granulocytes(IG's)percentage an d absolute count will include metamyelocytes, myelocytes, and promyelo cytes. Blood smears from CBCs yielding IG's will be scanned manually for concor dance. If this scan disagrees with the automated IG or if promyelocytes are not ed, a manual differential will be performed. Becki Gran Abs 0.00 0.00 - 0.05 x10(3)/mcL CER NER MILLENNIUM Specimen Anatomical Collection Method Collection Time Receive d Time (Source) Location / / Volume Laterality Blood specimen 04/25/2013 2:54 PM 013 3:00 (specimen) EDT PM EDT Salinas Russo MD HEMATOLOGY ORDERABLES Performing Organization Address City/State/ZIP Code [place] [id number] CERNER MILLENNIUM Basic Metabolic Panel (non-fasting) (04/25/2013 2:54 PM EDT) athologist Signature Glucose Lvl 121 60 - 199 CERNER mg/dL MILLENNIUM Comment: Diabetes: >=200 mg/dL plus symp toms BUN 20 10 - 20 mg/dL CERNER MILLENNIU M Creatinine 1.09 0.80 - 1.50 mg/dL CERNER MILL ENNIUM Comment: Please note that the pediatric reference intervals supplied above were not validated at [facility]. Results from pediatri c patients should be interpreted in conjunction to the patient's age, height and muscle mass. Sodium 142 135 - 145 mmol/L CERNER PATRICK NIUM Potassium 3.8 3.5 - 5.0 mmol/L CERNER PATRICK NIUM Comment: Please note: ??Patients with WBC >100,00 0 may have falsely elevated Potassium levels. ??For accurate Potassium quantif ication in these patients send serum separator tube (gold top) for subsequent determinations. ??Contact the Clinical Chemistry Laboratory if there are any qu estions. Chloride 103 98 - 107 mmol/L CERNER MILLENN IUM CO2 29 22 - 31 mmol/L CERNER MILLENNI UM Anion Gap 10 5 - 15 mmol/L CERNER MILLENNIU M Calcium 8.9 8.5 - 10.5 mg/dL CERNER PATRICK NIUM Estimated GFR >60 >=60 CERNER MILLENNIU M [...] the following links into your internet browser. http://www.nkdep.nih.gov/lab-evaluation. shtml http://www.kidney.org/professionals/ Specimen Anatomical Collection Method Collection Time Receive d Time (Source) Location / / Volume Laterality Blood specimen 04/25/2013 2:54 PM 013 3:00 (specimen) EDT PM EDT Resulting Agency Comment Spec In Lab Salinas Russo MD CHEMISTRY ORDERABLES Performing Organization Address City/[facility]/ZIP Code Phon e Number [address] CERNER MILLENNIUM (ABNORMAL) CBC (with Diff) (04/25/2013 2:54 PM EDT) athologist Signature WBC 5.6 4.0 - 10.0 CERNER x10(3)/mcL MILLENNIUM RBC 4.37 (L) 4.63 - CERNER 6.08 MILLENNIUM x10(6)/mcL Hemoglobin 14.5 13.7 - CERNER 17.5 gm/dL MILLENNIUM Hematocrit 42.9 40.0 - CERNER 51.0 % MILLENNIUM MCV 98.2 (H) 79.0 - CERNER 92.0 fL MILLENNIUM MCH 33.2 (H) 25.6 - CERNER 32.2 pg MILLENNIUM MCHC 33.8 32.0 - CERNER 36.5 gm/dL MILLENNIUM Platelets 198 145 - 370 CERNER x10(3)/mcL MILLENNIUM RDWSD 49.6 (H) 35.0 - CERNER 46.0 fL MILLENNIUM RDWCV 13.9 10.9 - CERNER 14.4 % MILLENNIUM MPV 11.3 9.0 - 12.0 CERNER fL MILLENNIUM Specimen Anatomical Collection Method Collection Time Receive d Time (Source) Location / / Volume Laterality Blood specimen 04/25/2013 2:54 PM 013 3:00 (specimen) EDT PM EDT Resulting Agency Comment Spec In Lab Salinas Russo MD HEMATOLOGY ORDERABLES Performing Organization Address City/[facility]/[place] [address] CERNER MILLENNIUM documented in this encounter Visit Diagnoses Diagnosis SOB (shortness of breath) - Primary Shortness of breath SCC (spinal cord compression) Unspecified disease of spinal cord Skin lesion Unspecified disorder of skin and subcuta neous tissue Cough URI (upper respiratory infection) Acute upper respiratory infections of un specified site documented in this encounter Care Teams Shuttle Filler Relationship Specialty Start Date End Date Giorgio Cardona MD PCP - General 10/04/10 04/10/17 [facility] [place] [address] documented as of this encounter
--- OUTSIDE RECORDS SUMMARY | 2022-10-09 16:17 | XMS_ITS | Encounter Summary ---
:1940 Author Organization [facility] [place] [address] Care Team Providers Name Role Phone Giorgio Cardona MD Primary Care Provider Reason for Visit Reason Onset Date Comments Other 04/29/2013 f/u URI symptoms Encounter Details Date Type Department Care Team Description 04/29/2013 Telephone Internal Medicine at Oneida Bridges, [place] (f/u URI [facility] RN symptoms) [place] [address] Social History Tobacco Use Types Packs/Day Years Used Date Smoking Tobacco: Never Smokeless Tobacco: Never Alcohol Use Standard Drinks/Week Comments Yes 0 (1 standard drink = 0.6 oz pure alcoho l) RARE Sex Assigned at Date Recorded Not on file documented as of this encounter Miscellaneous Notes Telephone Encounter - Oneida Bridges RN - 04/29/2013 1:48 PM EDT Pt returned call, states that he is coughing less and is starting to feel better. Pt will complete prescribed abx. documented in this encounter Plan of Treatment Upcoming Encounters Date Type Specialty Care Team Description 10/11/2022 Office Visit Dermatology Virgilio Mckeon MD [facility] DR CHRISTIANO HENSON-DERMAT [place], [place] [address] (Wo rk) 10/16/2022 Office Visit Otolaryngology Frank Buchanan MD [facility] OTOLARYNGOLOGY D EPT. [place], [place] [address] (Wo rk) 11/29/2022 Appointment Hematology and Oncology 11/29/2022 Office Visit Radiation Oncology Emerald Leyva APRN [facility] RADIATION ONCOLO GY [place], [place] [address] (Wo rk) documented as of this encounter Visit Diagnoses Not on filedocumented in this encounter Care Teams Loss Control Technician Relationship Specialty Start Date End Date Giorgio Cardona MD PCP - General 10/04/10 04/10/17 [facility] [place] [address] documented as of this encounter
--- OUTSIDE RECORDS SUMMARY | 2022-10-09 16:17 | XMS_ITS | Encounter Summary ---
:1940 Author Organization [facility] [place] [place] [address] Care Team Providers Name Role Phone Giorgio Cardona MD Primary Care Provider Reason for Visit Reason Comments Aftercare Of Tjr R TKA DOS 06/19/2012 Encounter Details Date Type Department Care Team Description 12/09/2012 Office Visit [place]opaed[place] [facility] Bobby Driscoll S/P knee replacement [facility] MAX Wong (Primary Dx) [place] [address] [place] [address] ORTHOPAEDIC SURGERY [place], [place] [address] Social History Tobacco Use Types Packs/Day Years Used Date Smoking Tobacco: Never Smokeless Tobacco: Never Alcohol Use Standard Drinks/Week Comments Yes 0 (1 standard drink = 0.6 oz pure alcoho l) RARE Sex Assigned at Date Recorded Not on file documented as of this encounter Last Filed Vital Signs Vital Sign Reading Time Taken Comments Blood Pressure 115/67 12/09/2012 3:11 PM EST Pulse 65 12/09/2012 3:11 PM EST Temperature - - Respiratory Rate - - Oxygen Saturation - - Inhaled Oxygen Concentration - - Weight 69.1 kg (152 lb 6.4 oz) 12/09/2012 3:11 PM EST Height 171.5 cm (5' 7.5) 12/09/2012 3:11 PM EST PT STA GREGOR Body Mass Index 23.52 12/09/2012 3:11 PM EST documented in this encounter Progress Notes Bobby Driscoll PA - 12/09/2012 3:42 PM EST Patient Name: Alfredito Mina : 1940 MR#: [id number] Case Date: 06-19-2012 Surgeon: Clif Quezada Procedure: right total knee replacement HPI: Alfredito Mina is a very pleasant 72 y.o. year-old male who presents for a 5 months follow-up of the above procedure. The patient has been doing very well and his pain is markedly improved over preoperative status. No fevers, chills, nausea, vomiting, or symptoms of infection. Alfredito has been ambulating with no assistive device. He has returned to all his normal activities. He is very excited as he went dancing last week for the first time in 6 years, and had no pain. Physical Exam: Well-appearing male in no acute distress. Alert and Oriented x 3 and answers all questions appropriately. The incision is well healed, with no signs of infection. Post Op Right Knee Exam: Gait Abnormality: Normal Knee ROM: Extension:0 Flexion: 135 Alignment: 0-4 degrees Neutral Stability: A/P Translation <5mm. Varus <5mm Valgus <5mm Extension La degrees or less Patella Tracking: Normal Pulses Palpable: Right PT: Yes Right DP:Yes Motor/Sensory: Distal Motor: Normal Distal Sensory: Normal Quadriceps Strength: 5 X-RAYS: Multiple radiographic views were obtained at my request and reviewed with the patient. X-rays show a well-placed prosthesis with no evidence of fracture or loosening. ASSESSMENT/PLAN: 5 months post-op and doing well. Continue weightbearing as tolerated and working onrange of motion, and we will see him back in 1 years for repeat examination. x-rays will be needed at that time. Patient may return to normal activities as his pain and function allow. We discussed the appropriate precautions surrounding dental prophylaxis. I stressed that he should avoid elective dental procedures for the first 6 months after surgery and then call the office for a prescription prior to any further dental work for the lifetime of the joint replacement. We also discussed maintaining good foot care and giving prompt attention to any source of infection throughout thebody including foot ulcers and urinary tract infections. Signed: MAX CABRAL 12/09/2012 documented in this encounter Plan of Treatment Upcoming Encounters Date Type Specialty Care Team Description 10/11/2022 Office Visit Dermatology Virgilio Mckeon MD [facility] DR CHRISTIANO HENSON-DERMAT OLOGY [place], [place] [address] (Wo rk) 10/16/2022 Office Visit Otolaryngology Frank Buchanan MD [facility] OTOLARYNGOLOGY Sarah EPT. [place], [place] [address] (Wo rk) 11/29/2022 Appointment Hematology and Oncology 11/29/2022 Office Visit Radiation Oncology Emerald Leyva APRN [facility] RADIATION ONCOLO GY [place], [place] [address] (Wo rk) documented as of this encounter Visit Diagnoses Diagnosis S/P knee replacement - Primary Knee joint replacement by other means documented in this encounter Care Teams Packaging Clerk Relationship Specialty Start Date End Date Giorgio Cardona MD PCP - General 10/04/10 04/10/17 [facility] [place] [address] documented as of this encounter
--- OUTSIDE RECORDS SUMMARY | 2022-10-09 16:17 | XMS_ITS | Encounter Summary ---
:1940 Author Organization [facility] [place] [address] Care Team Providers Name Role Phone Giorgio Cardona MD Primary Care Provider Reason for Visit Reason Comments Skin Check Encounter Details Date Type Department Care Team Description 08/08/2013 Office Visit Dermatology Timur Rojas, History of squamous cell car cinoma (Primary Dx); [address] [facility] Actinic keratosis [address] [place], [place] DERMATOLOGY [id number] [place] [address] [phone] (Wo rk) Social History Tobacco Use Types Packs/Day Years Used Date Smoking Tobacco: Never Smokeless Tobacco: Never Alcohol Use Standard Drinks/Week Comments Yes 0 (1 standard drink = 0.6 oz pure alcoho l) RARE Sex Assigned at Date Recorded Not on file documented as of this encounter Progress Notes Timur Rojas MD - 08/08/2013 9:45 AM EDT Problems: 1. Skin check. 2. History of Joel disease, left anterior shoulder, June 2008. Alfredito follows up for repeat check. He has noticed some new lesions on the temples. 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 Physical examination reveals diffuse actinic damage on the temples bilaterally. He has a number of seborrheic keratoses present there as well. He always wears a body painter's cap, so the balding parietal scalp and vertex of scalp are unaffected. His ears today look relatively unaffected, as does the postauricular scalp. He has no lesions on the chest or back, hands, or forearms. Assessment and Plan: Actinic keratoses, facial. a. I recommend that we begin 5-FU, applying on a b.i.d. basis for 10 days, then return to the clinic; 30 grams dispensed with zero refills. b. Half an hour after 5-FU, apply triamcinolone 0.1% cream; 30 grams dispensed with one refill. c. Discussed at length the expected inflammatory results during the 10 days of 5-FU. Discussed the post 5-FU healing phase. Return to the clinic in 10 days for repeat check. COPY: Giorgio Cardona M.D. documented in this encounter Plan of Treatment Upcoming Encounters Date Type Specialty Care Team Description 10/11/2022 Office Visit Dermatology Virgilio Mckeon MD [facility] DR CHRISTIANO HENSON-DERMAT OLOGY [place], [place] [address] (Wo rk) 10/16/2022 Office Visit Otolaryngology Frank Buchanan MD [facility] OTOLARYNGOLOGY D EPT. [place], [place] [address] (Wo rk) 11/29/2022 Appointment Hematology and Oncology 11/29/2022 Office Visit Radiation Oncology Emerald Leyva APRN [facility] RADIATION ONCCESAR GY [place], [place] [address] (Wo rk) documented as of this encounter Visit Diagnoses Diagnosis History of squamous cell carcinoma - Ashlee vilchis Personal history of malignant neoplasm o f other site Actinic keratosis documented in this encounter Care Teams Nut Orchardist Relationship Specialty Start Date End Date Giorgio Cardona MD PCP - General 10/04/10 04/10/17 [facility] GENERAL [place] [address] (work) documented as of this encounter
--- OUTSIDE RECORDS SUMMARY | 2022-10-09 16:17 | XMS_ITS | Encounter Summary ---
:1940 Author Organization [facility] Address [address] [address] Care Team Providers Name Role Phone Giorgio Cardona MD Primary Care Provider Reason for Referral Speech Therapy (Routine) - Complete-Ref Provider Notified Specialty Diagnoses / Procedures Referred By Contact Refer red To Contact Speech Pathology / Diagnoses Aspiration into respiratory tract Gregor Masterson, [facility] Type Copy Examiner Rehab Speech Therapy MD [facility] Drive DR Nair MD GENERAL INTERNAL [id number] [place] [address] Referral ID Status Reason Start Expiration Visits Visits Date Date Requested Authorized [id number] Complete-Ref Evaluate and 05/06/2013 11/02/2013 1 1 Provider Treat Notified Reason for Visit Reason Comments URI ongoing 3 weeks pt worries i f he has pneumonia Encounter Details Date Type Department Care Team Description 05/06/2013 Office Visit Internal Medicine at Gregor Masterson, Aspiration Into [facility] [place] Respiratory Tract [facility] (Pr imary Dx) Drive DR Nair MD GENERAL INTERNAL [phone] MEDICINE [phone] [place], [place] [address] (Wo rk) Social History Tobacco Use Types Packs/Day Years Used Date Smoking Tobacco: Never Smokeless Tobacco: Never Alcohol Use Standard Drinks/Week Comments Yes 0 (1 standard drink = 0.6 oz pure alcoho l) RARE Sex Assigned at Date Recorded Not on file documented as of this encounter Last Filed Vital Signs Vital Sign Reading Time Taken Comments Blood Pressure 112/65 05/06/2013 10:39 AM EDT Pulse 60 05/06/2013 10:39 AM EDT Temperature 36.7 ??C (98.1 ??F) 05/06/2013 10:39 AM EDT Respiratory Rate - - Oxygen Saturation 97% 05/06/2013 10:39 AM at rest ro om air EDT Inhaled Oxygen Concentration - - Weight 68 kg (150 lb) 05/06/2013 10:39 AM EDT Height - - Body Mass Index 25.35 01/14/2013 1:24 PM EST documented in this encounter Patient Instructions Patient InstructionsDoGregor guaman MD - 05/06/2013 11:15 AM EDT Rest as able and lots of fluids Start on the prednisone which will treat the asthmatic bronchitis but take 12 hrs to kick in Use the albuterol 2 puffs every 6 hrs if needed and before sleep to help with wheezes from the bronchitis Robitussin DM at nighttime only For Post nasal drip try fluticasone nasal spray once daily in each nostril Would suggest a long-acting inhaled steroid if the wheezing comes back documented in this encounter Progress Notes Gregor Masterson MD - 05/06/2013 10:58 AM EDT Subjective: 72-year-old man with prior history of right lower lobectomy for lung cancer, coronary artery bypass grafting, thyroidectomy for goiter reports 3 weeks of cough initially purulent sputum now clear and ongoing wheezing with nocturnal awakening. At onset, cold-like sx w PND, NC, and has long-standing H/o hoarse voice after surgical removal of goiter. Wheezing results in difficutly sleeping, w need to sit upright during sleep when he has a coughing jag. - does have a h/o aspiration since goiter surgery, especially for water, and he reports he often coughs up flecks of food after eating. - has had pneumonia x 3 (not in the recent past) He had an unremarkable modified barium swallow in the distant past, subsequent upper endoscopy was unremarkable but this can sometimes miss a Zenker's diverticulum. 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 Patient Active Problem List Diagnoses Code ??? [...] Preventative health care V70.0 ??? Diverticulitis 562.11 Current Outpatient Prescriptions on File Prior to [...] mouth every morning. 30 tablet 12 ??? azithromycin (ZITHROMAX) 250 mg tablet Take 1 tablet by mouth See Admin Instructions for 5 days.2 tabs on day 1 and 1 tab on days 2-5 6 tablet 0 Objective: Filed Vitals: 05/06/13 1039 BP: 112/65 Pulse: 60 Temp: 36.7 ??C (98.1 ??F) Gen - A well-appearing older male in no acute distress. HEENT - EOMI PERRL oropharynx moist without lesions Neck - No bruits, no lymphadenopathy or thyromegaly Lungs - scattered end expiratory wheezes with some propagating cough Chest/Back - right lateral thoracotomy scar No spinal tenderness, no kyphoscoliosis Heart - well-healed midline sternotomy scar RRR, S1,S2, no murmur, gallop or rub Skin - No rashes, lesions, plaques, nodules Gait: grossly intact with normal stride length, speed, and arm swing Assessment & Plan: Persistent bronchospasm in patient with presumed element of COPD, recent course of antibiotics with clearing of purulent sputum, and some nocturnal awakening and ongoing wheezing. Recommended a short pulse of prednisone, resumption of albuterol inhalant, he would find cost of Advair prohibitive by hisreport regarding his insurance coverage, but if an inhaled long-term steroid would be valuable then can consider patient assistance program. Provided literature on asthmatic bronchitis and prescriptions provided Patient continues to report symptoms of low level aspiration after meals - this appears to be thickening processing the current asthmatic and is well obtain modified barium swallow and a true barium swallow to assess further Patient Instructions Rest as able and lots of fluids Start on the prednisone which will treat the asthmatic bronchitis but take 12 hrs to kick in Use the albuterol 2 puffs every 6 hrs if needed and before sleep to help with wheezes from the bronchitis Robitussin DM at nighttime only For Post nasal drip try fluticasone nasal spray once daily in each nostril Would suggest a long-acting inhaled steroid if the wheezing comes back Domi Phelps - 05/06/2013 10:44 AM EDT Subjective: Cold like sxs started 3 weeks ago with post nasal drip and rhinorrhea. No sick contacts. Sxs started with some malaise and achy-ness x 1 week, then productive cough developed. Had inguinal hernia lastyear post similar cold. Pt reports hernia is more palpable Pt reports a tickle in his trachea that is improving. Sputum is more white than yellow. Reports his voice today is similar to his non URI sx voice. Reports the body aches are a little better today, no sore throat. Reports some dizziness intemrittently. Producing nasal mucous, usually clearish. Has some chornic sinus congestions. Has had some eye aches and majano. Took z-pac x 5 days, last dose on the . Feels more SOB that usual, normally feels SOB when he climbs heights for work. Pt reports he hasn't rested or taken it slow in the past 3 weeks. Not sleeping in bed, coughing all night. Almost choked so he moved from laying to sitting. Has mucinex at home, hasnt taken any Robitussin without codeine didn't help much. Lungs sounds ok but decreased in LLF. Heart- fine. Patient ID: Alfredito Mina is a 72 y.o. male. HPI Review of Systems Objective: Physical Exam Assessment and Plan: No problem-specific assessment & plan notes found for this encounter. documented in this encounter Plan of Treatment Upcoming Encounters Date Type Specialty Care Team Description 10/11/2022 Office Visit Dermatology Virgilio Mckeon MD [facility] DR CHRISTIANO HENSON-DERMAT OLOGY [place], [place] [address] (Wo sriram) 10/16/2022 Office Visit Otolaryngology Frank Buchanan MD [facility] OTOLARYNGOLOGY Sarah EPT. [place], [place] [address] (Wo sriram) 11/29/2022 Appointment Hematology and Oncology 11/29/2022 Office Visit Radiation Oncology Emerald Leyva APRN [facility] RADIATION ONCOLO GY [place], [place] [address] (Wo rk) Scheduled Referrals Name Type Priority Associated Diagnoses Order S chedule Referral to Speech Outpatient Referral Routine Aspiration Into Ordered: Therapy Respiratory Tract 05/06/2013 documented as of this encounter Visit Diagnoses Diagnosis Aspiration into respiratory tract - Prim jyaden Foreign body in respiratory tree, unspec ified documented in this encounter Care Teams Machine Fastener Relationship Specialty Start Date End Date Giorgio Cardona MD PCP - General 10/04/10 04/10/[address] [facility] GENERAL [place] [address] documented as of this encounter
--- OUTSIDE RECORDS SUMMARY | 2022-10-09 16:17 | XMS_ITS | Encounter Summary ---
:1940 Author Organization [facility] [place] [address] Care Team Providers Name Role Phone Giorgio Cardona MD Primary Care Provider Reason for Visit Reason Comments Follow-up Encounter Details Date Type Department Care Team Description 08/18/2013 Office Visit Dermatology Timur Rojas, Actinic keratosis [address] (Primary Dx) [address] [place], [place] DERMATOLOGY [address] [place] [address] [phone] (Wo rk) Social History Tobacco Use Types Packs/Day Years Used Date Smoking Tobacco: Never Smokeless Tobacco: Never Alcohol Use Standard Drinks/Week Comments Yes 0 (1 standard drink = 0.6 oz pure alcoho l) RARE Sex Assigned at Date Recorded Not on file documented as of this encounter Progress Notes Timur Rojas MD - 08/18/2013 3:33 PM EDT Problems: 1. Followup status post 10 days of 5-FU application. 2. History of Joel disease, left anterior shoulder, June 2008. Alfredito follows up for repeat check. He has been doing well. He used the 5-FU for 10 days and is starting to have a bit of a reaction now. He has been using triamcinolone as well. Physical examination confirms mild erythema of the lateral temples and forehead where he has been applying the 5-FU on a b.i.d. basis, treating 30 minutes later with the triamcinolone 0.1% cream. Physical examination of the chest and back reveals numerous loo red hemangiomas and several seborrheic keratoses, one on the left and one on the right superior shoulder, and one on the anterior base of his neck. The back is unremarkable. Examination of the legs is unremarkable, as are his hands, arms, and forearms. Assessment and Plan: Actinic keratoses, facial. a. Continue 5-FU for four more days, then discontinue. b. Return to the clinic in another six months for repeat check. The patient was reassured about his good response to treatment to date. c. Continue the triamcinolone 0.1% cream b.i.d. then by itself until the erythema resolves, and then discontinue it. COPY: Giorgio Cardona M.D. documented in this encounter Plan of Treatment Upcoming Encounters Date Type Specialty Care Team Description 10/11/2022 Office Visit Dermatology Virgilio Mckeon MD [facility] DR CHRISTIANO HENSON-DERMAT OLOGY [place], [place] [address] (Wo rk) 10/16/2022 Office Visit Otolaryngology Frank Buchanan MD [facility] OTOLARYNGOLOGY Sarah EPT. [place], [place] [address] (Wo rk) 11/29/2022 Appointment Hematology and Oncology 11/29/2022 Office Visit Radiation Oncology Emerald Leyva APRN [facility] RADIATION ONCOLO [place]Y [place], [place] [address] (Wo rk) documented as of this encounter Visit Diagnoses Diagnosis Actinic keratosis - Primary documented in this encounter Care Teams Oil Burner Relationship Specialty Start Date End Date Giorgio Cardona MD PCP - General 10/04/10 04/10/17 [facility] GENERAL [place] [address] documented as of this encounter
--- OUTSIDE RECORDS SUMMARY | 2022-10-09 16:17 | XMS_ITS | Encounter Summary ---
:1940 Author Organization [facility] Address [address] [place] [address] Care Team Providers Name Role Phone Giorgio Cardona MD Primary Care Provider Reason for Visit Reason Comments Establish Care LEFT INGUINAL HERNIA Encounter Details Date Type Department Care Team Description 01/14/2013 Office Visit General Surgery at [place], Thadeus L, Ingui nal hernia [facility] recurrent unilateral [facility] (Pr imary Dx) Drive [place] GENERAL SURGERY [address] [place] [address] [phone] Social History Tobacco Use Types Packs/Day Years Used Date Smoking Tobacco: Never Smokeless Tobacco: Never Alcohol Use Standard Drinks/Week Comments Yes 0 (1 standard drink = 0.6 oz pure alcoho l) RARE Sex Assigned at Date Recorded Not on file documented as of this encounter Last Filed Vital Signs Vital Sign Reading Time Taken Comments Blood Pressure 116/65 01/14/2013 1:24 PM EST Pulse 60 01/14/2013 1:24 PM EST Temperature - - Respiratory Rate 16 01/14/2013 1:24 PM EST Oxygen Saturation 99% 01/14/2013 1:24 PM EST Inhaled Oxygen Concentration - - Weight 70.3 kg (155 lb) 01/14/2013 1:24 PM EST Height 163.8 cm (5' 4.5) 01/14/2013 1:24 PM EST Body Mass Index 26.19 01/14/2013 1:24 PM EST documented in this encounter Progress Notes Carolyn Benito P - 01/14/2013 1:24 PM EST General Surgery [facility] Note Alfredito Mendozanolds 1940 [id number] Chief complaint: Left inguinal hernia HPI: A 72 year old male referred from Dr. Davila for evaluation of a recurrent left inguinal hernia.He has a history of Left inguinal hernia repair in [place] in 1962, recurrence and repair by Dr Bowie in 2010, found to have a indirect hernia on the left side with intact floor, Atrium patch placed. He also has a h/o Right inguinal hernia repair with mesh and umbilical hernia with mesh a [facility] 2003. His symptoms is slight bulge and discomfort while straining. He has not had any change with his bowel habits, no episode of obstructive symptoms. His main concern is if he need this fixed now or if he can do that later. Past Medical History Diagnosis Date ??? Difficulty in swallowing ??? Dry mouth ??? Arthritis knee replacement right ??? Colon polyps ??? Inguinal hernia left recurrent ??? Multinodular goiter ??? GERD (gastroesophageal reflux disease) ??? Pancreatic cyst ??? Hypertension ??? Dyslipidemia ??? Lung cancer ??? Prostate cancer s/p XRT Past Surgical History Procedure Date ??? Created [...] Inguinal hernia repairs.(Left without mesh in 1962) ??? Repair recurr inguin rajendra, reducibl 03/10/2011 HERNIA REPAIR, INGUINAL, RECURRENT performed by NOREEN BOWIE at [facility] MAIN OR ??? Thyroidectomy=substernal, transcerv 11/30/2011 THYROIDECTOMY, INCL. SUBSTERNAL, CERVICAL APPROACH performed by FRANK MAC at [facility] MAIN OR ??? Somatosensory test, any/all per. nerves, trunk or head 11/30/2011 FACIAL NERVE MONITORING, SETUP performed by FRANK MAC at [facility] MAIN OR ??? Upper gi endoscopy, exam 01/29/2012 UPPER GI ENDOSCOPY performed by VICKI SON at [facility] ENDOSCOPY ??? Lung cancer surgery Partial removal of R lung ??? Total knee arthroplasty 06/19/2012 @TOTAL KNEE ARTHROPLASTY performed by ADAM CARRERO at [facility] MAIN OR ??? Colonoscopy, victorina vicente, snare 01/06/2013 COLONOSCOPY, POLYPECTOMY, REMOVAL LESION BY SNARE performed by Josh Jeffery MD at [facility] ENDOSCOPY ROS: Negative for Headaches, h/o migraines Recent change in vision Pos for Difficulties swallowing Chest pain/thigthness Palpations SOB Nausea/emesis, diarrhea/constipation Difficulties urinating, h/o kidney stones, UTI's Swelling of legs New rash All other systems negative History Social History ??? Marital Status: Single Spouse Name: N/A Number of Children: N/A ??? Years of Education: N/A Occupational History ??? Not on file. Social History Main Topics ??? Smoking status: Never Smoker ??? Smokeless tobacco: Never Used ??? Alcohol Use: Yes RARE ??? Drug Use: No ??? Sexually Active: Not on file Other Topics Concern ??? Not on file Social History Narrative ??? No narrative on file Current Outpatient Prescriptions on File Prior to [...] by mouth every morning. 30 tablet 12 Allergies Allergen Reactions ??? Lactose Other (See Comments) Sneezing There were no vitals filed for this visit. Exam: General: Alert and oriented x4 Heart: RRR Lungs: Vesicular bilateral Abdomen: Soft, non distended/tender, + BS, well healed scars from bilateral inguinal hernia repairs as well as umbilical hernia Bulge on the left side consistent with inguinal hernia, no hernia on right Extremities: Warm, no edema Assessment/Plan A 72 year old male with recurrent left inguinal hernia. Initial operation in 1962, second operation with Dr Bowie, Atrium patch. Now minimally symptomatic. Discussed in details indication for surgery. Discussed laparoscopic approach being the most preferable, LEOLA approach then because of repair with mesh on for the umbilical hernia. Discussed that this would entitle a general anesthesia, patient with baseline COPD, stable on inhalers. Patient will contact Dr Osborne this fall if he is still interested in surgery, sooner if symptoms progress Patient seen with Dr Osborne. I have seen the patient and reviewed Dr. Leon's above history and I agree with the details as written. The assessment and plan were formulated in discussion with me and I agree with them as documented. Recurrent LIH, minimally symptomatic Best repaired with a laparoscopic approach He would like to wait till fall for repair Signs and symptoms of incarceration discussed so he knows to seek urgent attention should he notice any of these documented in this encounter Plan of Treatment Upcoming Encounters Date Type Specialty Care Team Description 10/11/2022 Office Visit Dermatology Virgilio Mckeon MD [facility] DR CHRISTIANO HENSON-DERMAT OLOGY [place], [place] [address] (Leroy bhatia) 10/16/2022 Office Visit Otolaryngology Frank Buchanan MD [facility] OTOLARYNGOLOGMireille Smith EPT. [place], [place] [address] (Leroy bhatia) 11/29/2022 Appointment Hematology and Oncology 11/29/2022 Office Visit Radiation Oncology Emerald Leyva APRN [facility] RADIATION ONCOLO [place], [place] [address] (Wo rk) documented as of this encounter Visit Diagnoses Diagnosis Inguinal hernia recurrent unilateral - P rimary Inguinal hernia without mention of obstr uction or gangrene, recurrent unilateral or unspecified documented in this encounter Care Teams Supervisor Orchard Relationship Specialty Start Date End Date Giorgio Cadrona MD PCP - General 10/04/10 04/10/17 [facility] GENERAL [place] [address] documented as of this encounter
--- OUTSIDE RECORDS SUMMARY | 2022-10-09 16:17 | XMS_ITS | Encounter Summary ---
:1940 Author Organization [facility] Address [facility] [place] [address] Care Team Providers Name Role Phone Giorgio Cardona MD Primary Care Provider Reason for Referral Consultation (Routine) - Closed Specialty Diagnoses / Procedures Referred By Contact Refer red To Contact Dermatology Diagnoses Keratosis Sandra Seth APRN [facility] [address] [facility] [address] GENERAL [place]NAL [place], [place] [address] [place] [address] Referral ID Status Reason Start Date Expiration Date Visits V isits Requested Authorized [id number] Closed Consult, 06/05/2013 12/02/2013 1 1 Test & Treat Reason for Visit Reason Comments Follow-up Encounter Details Date Type Department Care Team Description 06/05/2013 Follow-Up Internal Medicine at Sandra Seth Ker atosis (Primary Dx); [facility] DIETETIC TECH Post-nasal drip; [facility] Asp iration into lower respiratory tract; [place] [address] GENERAL INTERNAL [phone] MEDICINE [place], [place] [address] (Wo rk) Social History Tobacco Use Types Packs/Day Years Used Date Smoking Tobacco: Never Smokeless Tobacco: Never Alcohol Use Standard Drinks/Week Comments Yes 0 (1 standard drink = 0.6 oz pure alcoho l) RARE Sex Assigned at Date Recorded Not on file documented as of this encounter Last Filed Vital Signs Vital Sign Reading Time Taken Comments Blood Pressure 103/60 06/05/2013 1:43 PM EDT Pulse 69 06/05/2013 1:43 PM EDT Temperature - - Respiratory Rate - - Oxygen Saturation 98% 06/05/2013 1:43 PM EDT at rest room air Inhaled Oxygen Concentration - - Weight 70.8 kg (156 lb) 06/05/2013 1:43 PM EDT Height - - Body Mass Index 26.36 01/14/2013 1:24 PM EST documented in this encounter Patient Instructions Patient InstructionsSandra Seth APRN - 06/05/2013 2:05 PM EDT Continue with medicines including inhaler as needed Always sit up when drinking fluids Contact us if you develop any fever or cough Dermatology consult for lesions on your forehead F-up with Dr. Cardona in August documented in this encounter Progress Notes Sumi Yang - 06/05/2013 1:52 PM EDT ID: Alfredito Mina is an 73 y.o. male w hx of lung cancer s/p lobectomy who presents for 1 month follow up after COPD exacerbation Chief Complaint: follow-up for CODP exacerbation HPI Last month, pt was seen by Dr. Masterson for presumed COPD exacerbation - pt presented with severe, productive cough and dyspnea, and had taken a course of azithromycin with no effect. Dr. Masterson started course of prednisone. Pt's cough and dyspnea resolved with prednisone, and he has been able to return to his baseline activities. He has not needed to take his rescue inhaler in over two weeks. Pt feels like he breathes heavier with physical exertion, but there is no dyspnea or wheezing. Pt also endorses a spot on his forehead, above his left eyebrow near midline, that feels like its burning. It has been there on a chronic basis. NO bleeding, no discharge. Past Medical History Diagnosis Date ??? Difficulty in swallowing ??? Dry mouth ??? Arthritis knee replacement right ??? Colon polyps ??? Inguinal hernia left recurrent ??? Multinodular goiter ??? GERD (gastroesophageal reflux disease) ??? Pancreatic cyst ??? Hypertension ??? Dyslipidemia ??? Lung cancer ??? Prostate cancer s/p XRT ??? Aspiration Into Lower Respiratory Tract 05/06/2013 Current Outpatient Prescriptions on File Prior to Visit Medication Sig Dispense Refill ??? albuterol (PROVENTIL HFA;VENTOLIN HFA) 90 mcg/actuation inhaler Inhale 2 puffs into the lungs every 4 hours as needed for Wheezing. Use with spacer 1 Inhaler 1 ??? fluticasone (FLONASE) 50 mcg/actuation nasal spray 1 spray by Each Nare route daily. For post nasal drip 16 g 12 ??? polyethylene glycol (MIRALAX) 17 gram/dose powder [...] mouth every morning. 30 tablet 12 ??? DISCONTD: predniSONE (DELTASONE) 10 mg tablet Take 1 tablet by mouth daily. 4 tabs x2 d, then 3 x 2d, 2x 2d, 1x 2d then stop 20 tablet 0 ??? DISCONTD: azithromycin (ZITHROMAX) 250 mg tablet Take 1 tablet by mouth See Admin Instructions for 5 days. 2 tabs on day 1 and 1 tab on days 2-5 6 tablet 0 Allergies: Allergies Allergen Reactions ??? Lactose Other (See Comments) Sneezing Family History Problem Relation Age of Onset ??? Asthma Mother ??? Heart Failure Father ??? Thyroid Disease Paternal Grandmother History Social History ??? Marital Status: Single Spouse Name: N/A Number of Children: N/A ??? Years of Education: N/A Social History Main Topics ??? Smoking status: Never Smoker ??? Smokeless tobacco: Never Used ??? Alcohol Use: Yes RARE ??? Drug Use: No ??? Sexually Active: None Other Topics Concern ??? None Social History Narrative ??? None Objective: Blood pressure 103/60, pulse 69, weight 70.761 kg (156 lb), SpO2 98.00%. Physical Exam: GEN: A/Ox3 in NAD, pleasant and cooperative. HEENT: mmm, EOMI, PERRL, no scleral icterus, no lymphadenopathy. CV: RRR, normal s1/s2, no m/r/g RESP: CTAB, equal lung sounds bilaterally, no w/c/r ABDOMEN: NT, ND, +BS nl x4, no HSM MSK: 5/5 strength in UE/LE bilateraly NEURO: intact sensations LE bilaterally EXT: palpable DP pulses bilaterally SKIN: Skin is warm and dry. 3mm crusted papule on forehead, surrounded by scales resembling actinic keratosis. Forehead diffusely red with flaky skin, telangiectasias. Labs: reviewed Assessment: Alfredito Mina is an 73 y.o. male who presents for follow-up of his COPD exacerbation, which has resolved after a course of prednisone. He has not had PFT in a while, but functionallyhe has not needed his rescue inhalers in two weeks. He also is bothered by a 3mm papule on his forehead; has not been evaluated by section crews activities clerk. Plan: -continue meds as prescribed; may benefit from dental financial coordinator services for medications that are difficult to afford. -will refer to dermatology re ?actinic keratosis on forehead. Sumi Yang 06/05/2013 Sandra Seth APRN - 06/05/2013 1:51 PM EDT ESTABLISHED PATIENT VISIT I. HISTORY a. Reason(s) for Visit: Alfredito Mina 73 y.o. male asked to be seen for: Chief Complaint Patient presents with ??? Follow-up b. History of Present Illness: Last month, pt was seen by Dr. Masterson for presumed COPD exacerbation - pt presented with severe, productive cough and dyspnea, and had taken a course of azithromycin with no effect. Dr. Masterson started course of prednisone. Pt's cough and dyspnea resolved with prednisone, and he has been able to return to his baseline activities. He has not needed to take his rescue inhaler in over two weeks. Pt feels like he breathes heavier with physical exertion, but there is no dyspnea or wheezing. Question of aspiration---swallowing study in the past ok. Pt also endorses a spot on his forehead, above his left eyebrow near midline, that feels like its burning. It has been there on a chronic basis. NO bleeding, no discharge. Patient Active Problem List Diagnoses Code ??? [...] ??? Aspiration Into Lower Respiratory Tract 934.9 Allergies Allergen Reactions ??? Lactose Other (See Comments) Sneezing Current Outpatient Prescriptions on File Prior to Visit Medication Sig Dispense Refill ??? albuterol (PROVENTIL HFA;VENTOLIN HFA) 90 mcg/actuation inhaler Inhale 2 puffs into the lungs every 4 hours as needed for Wheezing. Use with spacer 1 Inhaler 1 ??? fluticasone (FLONASE) 50 mcg/actuation nasal spray 1 spray by Each Nare route daily. For post nasal drip 16 g 12 ??? polyethylene glycol (MIRALAX) 17 gram/dose powder [...] mouth every morning. 30 tablet 12 ??? DISCONTD: predniSONE (DELTASONE) 10 mg tablet Take 1 tablet by mouth daily. 4 tabs x2 d, then 3 x 2d, 2x 2d, 1x 2d then stop 20 tablet 0 ??? DISCONTD: azithromycin (ZITHROMAX) 250 mg tablet Take 1 tablet by mouth See Admin Instructions for 5 days. 2 tabs on day 1 and 1 tab on days 2-5 6 tablet 0 c. Review of Systems: as above II. PHYSICAL EXAM Filed Vitals: 06/05/13 1343 BP: 103/60 Pulse: 69 Weight: 70.761 kg (156 lb) SpO2: 98% General - No acute [...] No clubbing, cyanosis or edema. Pulses intact. Skin - 3mm crusted papule on forehead, surrounded by scales resembling actinic keratosis. Forehead diffusely red with flaky skin, telangiectasias. III. ASSESSMENT/PLAN: 73 year old male with resolved exacerbation of COPD, skin lesion that needs derm eval Plan; Patient Instructions Continue with medicines including inhaler as needed Always sit up when drinking fluids Contact us if you develop any fever or cough Dermatology consult for lesions on your forehead F-up with Dr. Cardona in August documented in this encounter Plan of Treatment Upcoming Encounters Date Type Specialty Care Team Description 10/11/2022 Office Visit Dermatology Virgilio Mckeon MD [facility] DR CHRISTIANO HENSON-DERMAT OLOGY [place], [place] [address] (Wo rk) 10/16/2022 Office Visit Otolaryngology Frank Buchanan MD [facility] OTOLARYNGOLOGY Sarah EPT. [place], [place] [address] (Wo rk) 11/29/2022 Appointment Hematology and Oncology 11/29/2022 Office Visit Radiation Oncology Emerald Leyva APRN [facility] RADIATION ONCOLO GY [place], [place] [address] (Wo rk) Scheduled Referrals Name Type Priority Associated Order Schedule Diagnoses Referral to Outpatient Referral Routine Keratosis Ordered: Dermatology 06/05/2013 documented as of this encounter Visit Diagnoses Diagnosis Keratosis - Primary Acquired keratoderma Post-nasal drip Postnasal drip Aspiration into lower respiratory tract Foreign body in respiratory tree, unspec ified Lung cancer Malignant neoplasm of bronchus and lung, unspecified site documented in this encounter Care Teams Insole Filler Relationship Specialty Start Date End Date Giorgio Cardona MD PCP - General 10/04/10 04/10/17 [facility] [place] [address] documented as of this encounter
--- OUTSIDE RECORDS SUMMARY | 2022-10-09 16:17 | XMS_ITS | Encounter Summary ---
:1940 Author Organization [facility] [place] [address] Care Team Providers Name Role Phone Giorgio Cardona MD Primary Care Provider Reason for Visit Reason Onset Date Comments URI 04/27/2013 Encounter Details Date Type Department Care Team Description 04/27/2013 Telephone [address] Medicine at [facility] Livier Salgado URI [facility] [place] [address] [facility] [phone] GENERAL INTERNAL MEDICINE [place], [place] [address] (Wo rk) Social History Tobacco Use Types Packs/Day Years Used Date Smoking Tobacco: Never Smokeless Tobacco: Never Alcohol Use Standard Drinks/Week Comments Yes 0 (1 standard drink = 0.6 oz pure alcoho l) RARE Sex Assigned at Date Recorded Not on file documented as of this encounter Miscellaneous Notes Telephone Encounter - Rochelle Dunaway RN - 04/29/2013 10:54 AM EDT Message left on home number listed for pt to call clinic with update on how he is doing and to review test results. Telephone Encounter - Livier Salgado MD - 04/27/2013 7:31 PM EDT Chief Complaint Patient presents with ??? URI S> Alfredito reports that his sputum is now turning yellow and he is coughing more. No fever Has Rx for zpak and want to know if he should start this A> Acute URI P> advised to start zpak as instructed. documented in this encounter Plan of Treatment Upcoming Encounters Date Type Specialty Care Team Description 10/11/2022 Office Visit Dermatology Virgilio Mckeon MD [facility] DR CHRISTIANO HENSON-DERMAT OLOGY [place], [place] [address] (Wo rk) 10/16/2022 Office Visit Otolaryngology Frank Buchanan MD [facility] OTOLARYNGOLOGY Sarah EPT. [place], [place] [address] (Wo rk) 11/29/2022 Appointment Hematology and Oncology 11/29/2022 Office Visit Radiation Oncology Emerald Leyva APRN [facility] RADIATION ONCOLO GY [place], [place] [address] (Wo rk) documented as of this encounter Visit Diagnoses Not on filedocumented in this encounter Care Teams Edge Beader Relationship Specialty Start Date End Date Giorgio Cardona MD PCP - General 10/04/10 04/10/17 [facility] GENERAL [place] [address] documented as of this encounter
--- OUTSIDE RECORDS SUMMARY | 2022-10-09 16:17 | XMS_ITS | Encounter Summary ---
:1940 Author Organization [place] [address] Care Team Providers Name Role Phone Giorgio Cardona MD Primary Care Provider Encounter Details Date Type Department Care Team Description 11/28/2012 Orders Only Cardiothoracic Surge Lois Simmons MD [facility] [place] [address] CARDIOTHORACIC [phone] SURGERY [place], [place] [address] (Wo rk) Social History Tobacco [...] MEDICAL [facility] ER DR CHRISTIANO HENSON-DERMAT OLOGY [place], [place] [address] (Wo rk) 10/16/2022 Office Visit Otolaryngology Frank Buchanan MD [facility] OTOLARYNGOLOGMireille D EPT. [place], [place] [address] (Wo rk) 11/29/2022 Appointment Hematology and Oncology 11/29/2022 Office Visit Radiation Oncology Emerald Leyva APRN [facility] RADIATION ONCOLO GY [place], [place] [address] (Wo rk) documented as of this encounter Visit Diagnoses Not on filedocumented in this encounter Care Teams Diagnostic Tech Relationship Specialty Start Date End Date Giorgio Cardona MD PCP - General 10/04/10 04/10/17 [facility] GENERAL INTERNAL [place] [address] documented as of this encounter
--- OUTSIDE RECORDS SUMMARY | 2022-10-09 16:17 | XMS_ITS | Encounter Summary ---
:1940 Author Organization [place] [address] Care Team Providers Name Role Phone Giorgio Cardona MD Primary Care Provider Encounter Details Date Type Department Care Team Description 11/07/2012 Hospital Encounter Laboratory Adan Donohue MD [facility] [place] [address] Prostate cancer [facility] Becka Dean, [address] RADIATION ONCOLOGY [place], [place] [id number] [place] [phone] Social History Tobacco Use Types Packs/Day Years [...] tablet 3 1 11/01/2013 tablet mouth daily. aspirin 325 mg tablet Take 325 mg by 0 12/09/2012 mouth 2 times daily. furosemide (LASIX) 20 mg Take 1 [...] every morning. documented as of this encounter Procedure Notes Provider, Scanning - 11/18/2012 10:47 AM ESTAssociated Order(s): SCAN DOC: LAB documented in this encounter Plan of Treatment Upcoming Encounters Date Type Specialty Care Team Description 10/11/2022 Office Visit Dermatology Virgilio Mckeon MD [facility] DR CHRISTIANO HENSON-DERMAT OLOGY [place], [place] [address] (Leroy bhatia) 10/16/2022 Office Visit Otolaryngology Frank Buchanan MD [facility] OTOLARYNGOLOGY Sarah EPT. [place], [place] [address] (Leroy bhatia) 11/29/2022 Appointment Hematology and Oncology 11/29/2022 Office Visit Radiation Oncology Emerald Leyva APRN [facility] RADIATION ONCCESAR GY [place], [place] [address] (Leroy bhatia) documented as of this encounter Procedures Procedure Name Priority Date/Time Associated Diagnosis Comme nts LAB SCAN 11/18/2012 10:47 AM Results for this EST procedure are i n the results section. PSA Routine 11/07/2012 12:29 PM Prostate cancer Resul ts for this (ULTRASENSITIVE) EST procedure a re in the results section. documented in this encounter Results SCAN DOC: LAB (11/18/2012 10:47 AM EST) Narrative This result has an attachment that is no t available. Transcriptions Provider, Scanning - 11/18/2012 10:47 AM EST Scanning Provider MEDIA MGR SCAN EXT ORDR/RSLT PSA (11/07/2012 12:29 PM EST) P athologist Signature PSA Total 1.16 0.00 - CERNER (Ultrasensitiv 4.00 ng/mL MILLENNIUM e) Specimen Anatomical Collection Method Collection Time Receive d Time (Source) Location / / Volume Laterality Blood specimen 11/07/2012 12:29 2 (specimen) PM EST 12:31 PM EST Resulting Agency Comment Spec In Lab Andi Elizalde MD CHEMISTRY ORDERABLES Performing Organization Address City/State/ZIP Code [place] [address] [facility] documented in this encounter Visit Diagnoses Diagnosis Prostate cancer Malignant neoplasm of prostate documented in this encounter Care Teams Nut Sheller Machine Operator Relationship Specialty Start Date End Date Giorgio Cardona MD PCP - General 10/04/10 04/10/[address] [facility] [address] [place] [address] documented as of this encounter
--- OUTSIDE RECORDS SUMMARY | 2022-10-09 16:17 | XMS_ITS | Encounter Summary ---
:1940 Author Organization [facility] [place] [address] Care Team Providers Name Role Phone Giorgio Cardona MD Primary Care Provider Reason for Visit Reason Comments URI not feeling much better afte r antibiotics Encounter Details Date Type Department Care Team Description 05/05/2013 Telephone Internal Medicine at Kavita Hardwick, URI (not feeling much [facility] RN better after [facility] antibioti cs) [place] [address] Social History Tobacco Use Types Packs/Day Years Used Date Smoking Tobacco: Never Smokeless Tobacco: Never Alcohol Use Standard Drinks/Week Comments Yes 0 (1 standard drink = 0.6 oz pure alcoho l) RARE Sex Assigned at Date Recorded Not on file documented as of this encounter Miscellaneous Notes Telephone Encounter - Kavita Hardwick RN - 05/05/2013 8:48 AM EDT Mr. Mina reports after finishing the antibiotics he was prescribed for uri, he is a little receiving weigher, but is still coughing up stuff and not feeling much better. Appointment made to see Dr. Sands. documented in this encounter Plan of Treatment Upcoming Encounters Date Type Specialty Care Team Description 10/11/2022 Office Visit Dermatology Virgilio Mckeon MD [facility] [address]-DERMAT OLOGY [place], [place] [address] (Wo rk) 10/16/2022 Office Visit Otolaryngology Frank Buchanan MD [facility] OTOLARYNGOLOGY Sarah EPT. [place], [place] [address] (Wo rk) 11/29/2022 Appointment Hematology and Oncology 11/29/2022 Office Visit Radiation Oncology Emerald Leyva APRN [facility] RADIATION ONCOLO GY [place], [place] [address] (Wo rk) documented as of this encounter Visit Diagnoses Not on filedocumented in this encounter Care Teams Furniture Maker Relationship Specialty Start Date End Date Giorgio Cardona MD PCP - General 10/04/10 04/10/17 [facility] [place] [address] documented as of this encounter
--- OUTSIDE RECORDS SUMMARY | 2022-10-09 16:17 | XMS_ITS | Encounter Summary ---
:1940 Author Organization [facility] [place] [address] Care Team Providers Name Role Phone Giorgio Cardona MD Primary Care Provider Encounter Details Date Type Department Care Team Description 03/28/2013 Hospital Encounter MRI at [facility] CONV Pancreatic cyst [facility] Giorgio Cardona MD [facility] GENERAL [place] [address] [place] [address] Social History Tobacco Use Types [...] - - Weight 71.2 kg (157 lb) 03/28/2013 6:02 AM EDT Height - - Body Mass Index 26.53 01/14/2013 1:24 PM EST documented in this encounter Medications at Time [...] every morning. documented as of this encounter Miscellaneous Notes Miscellaneous - Provider, Scanning - 04/14/2013 5:48 AM EDT documented in this encounter Plan of Treatment Upcoming Encounters Date Type Specialty Care Team Description 10/11/2022 Office Visit Dermatology Virgilio Mckeon MD [facility] DR CHRISTIANO HENSON-DERMAT OLOGY [place], [place] [address] (Leroy bhatia) 10/16/2022 Office Visit Otolaryngology Frank Buchanan MD [facility] OTOLARYNGOLOGY D EPT. [place], [place] [address] (Leroy bhatia) 11/29/2022 Appointment Hematology and Oncology 11/29/2022 Office Visit Radiation Oncology Emerald Leyva APRN [facility] RADIATION ONCOLO GY [place], [place] [address] (Leroy bhatia) documented as of this encounter Procedures Procedure Name Priority Date/Time Associated Comments Diagnosis MRI CHOLANGIOPANCREATOGRAPHY Routine 03/28/2013 4:07 Cyst and Results for PM EDT pseudocyst of this procedure pancreas are in the results section. documented in this encounter Results MRI cholangiopancreatography (03/28/2013 4:07 PM EDT) Anatomical Region Laterality Modality Magnetic Resonance Specimen (Source) Anatomical Collection Method Collection Time Re ceived Time Location / / Volume Laterality 03/28/2013 4:07 PM EDT Narrative 03/28/2013 5:13 PM EDT Examination MR Cholangiopancreatography Clinical History f/u IPMN Comparison MRI abdomen with contrast 03/14/2012, CT chest 01/07/2013, CT abdomen 10/24/2010 ?? Technique MRCP of the abdomen was performed withou t the use of intravenous gadolinium. 3D reconstructions were performed. Findings There is a stable appearing, round, T2 h yperintense lesion in the pancreatic head which is contiguous with the main p ancreatic duct, measuring approximately 9 mm. The pancreatic duct is not dilated . ??There are no new pancreatic lesions. The common bile duct is mildly prominent , but unchanged. No intraluminal filling defects are seen within the gall bladder, common bile duct or pancreatic duct. ?? The liver, right adrenal and spleen are normal. Left adrenal adenoma is slightly larger than on the prior MR, bu t similar in size to the most recent prior CT of December 2011. Multiple bila teral renal and parapelvic cysts are unchanged. No intra-abdominal adenopathy . ?? Impression 1. 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 This lesion is st able in appearance since October of 2010 and no further followup is needed. (Reference: Managing Incidental Findings on Abdominal CT, ACR Whitepaper , JACR 2009) 2. Left adrenal adenoma. Film and interpretation reviewed by the attending Procedure Note Kay Renner MD - 03/28/2013 Examination MR Cholangiopancreatography Clinical History f/u IPMN Comparison MRI abdomen with contrast 03/14/2012, CT chest 01/07/2013, CT abdomen 10/24/2010 Technique MRCP of the abdomen was performed withou t the use of intravenous gadolinium. 3D reconstructions were performed. Findings There is a stable appearing, round, T2 h yperintense lesion in the pancreatic head which is contiguous with the main p ancreatic duct, measuring approximately 9 mm. The pancreatic duct is not dilated . There are no new pancreatic lesions. The common bile duct is mildly prominent , but unchanged. No intraluminal filling defects are seen within the gall bladder, common bile duct or pancreatic duct. The liver, right adrenal and spleen are normal. Left adrenal adenoma is slightly larger than on the prior MR, bu t similar in size to the most recent prior CT of December 2011. Multiple bila teral renal and parapelvic cysts are unchanged. No intra-abdominal adenopathy . Impression 1. 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 This lesion is st able in appearance since October of 2010 and no further followup is needed. (Reference: Managing Incidental Findings on Abdominal CT, ACR GENARO Nguyen 2010) 2. Left adrenal adenoma. Film and interpretation reviewed by the attending Giorgio Cardona MD IMG MRI ORDERABLES documented in this encounter Visit Diagnoses Diagnosis Pancreatic cyst Cyst and pseudocyst of pancreas documented in this encounter Care Teams Photo Specialist Relationship Specialty Start Date End Date Giorgio Cardona MD PCP - General 10/04/10 04/10/17 [facility] GENERAL [place] [address] documented as of this encounter
--- OUTSIDE RECORDS SUMMARY | 2022-10-09 16:17 | XMS_ITS | Encounter Summary ---
:1940 Author Organization [place] [address] Care Team Providers Name Role Phone Giorgio Cardona MD Primary Care Provider Reason for Visit Reason Onset Date Comments Referral 10/07/2012 Encounter Details Date Type Department Care Team Description 10/07/2012 Telephone Internal Medicine at [facility] Giorgio Cardona MD Referral [facility] [place] [phone] GENERAL INTERNAL MEDICINE [phone] [place], [place] [address] (Wo rk) Social History Tobacco Use Types Packs/Day Years Used Date Smoking Tobacco: Never Smokeless Tobacco: Never Alcohol Use Standard Drinks/Week Comments No 0 (1 standard drink = 0.6 oz pure alcoho l) Sex Assigned at Date Recorded Not on file documented as of this encounter Miscellaneous Notes Telephone Encounter - Giorgio Cardona MD - 10/08/2012 8:20 AM EST Not needed at this time. documented in this encounter Plan of Treatment Upcoming Encounters Date Type Specialty Care Team Description 10/11/2022 Office Visit Dermatology Virgilio Mckeon MD [facility] ER DR CHRISTIANO HENSON-DERMAT OLOGY [place], [place] [address] (Wo rk) 10/16/2022 Office Visit Otolaryngology Frank Buchanan MD [facility] OTOLARYNGOLOGY Sarah EPT. [place], [place] [address] (Wo rk) 11/29/2022 Appointment Hematology and Oncology 11/29/2022 Office Visit Radiation Oncology Emerald Leyva APRN [facility] RADIATION ONCOLO GY [place], [place] [address] (Wo rk) documented as of this encounter Visit Diagnoses Not on filedocumented in this encounter Care Teams Shipfitter Relationship Specialty Start Date End Date Giorgio Cardona MD PCP - General 10/04/10 04/10/17 [facility] GENERAL [place] [address] documented as of this encounter
--- OUTSIDE RECORDS SUMMARY | 2022-10-09 16:17 | XMS_ITS | Encounter Summary ---
:1940 Author Organization [facility] [place] [address] Care Team Providers Name Role Phone Giorgio Cardona MD Primary Care Provider Encounter Details Date Type Department Care Team Description 09/29/2013 Orders Only Radiation Oncology at [facility] NETWORK INTERN (Primary Dx) [address] [place] [phone] Social History Tobacco Use Types Packs/Day Years [...] Dermatology Virgilio Mckeon MD [facility] ER DR CHRISTIANO HENSON-DERMAT [place], [place] [address] (Wo rk) 10/16/2022 Office Visit Otolaryngology Frank Buchanan MD [facility] ER OTOLARYNGOLOGMireille Smith EPT. [place], [place] [address] (Wo rk) 11/29/2022 Appointment Hematology and Oncology 11/29/2022 Office Visit Radiation Oncology Emerald Leyva APRN [facility] RADIATION ONCOLO [place], [place] [address] (Wo rk) documented as of this encounter Visit Diagnoses Diagnosis Prostate cancer - Primary Malignant neoplasm of prostate documented in this encounter Care Teams Die Out Worker Relationship Specialty Start Date End Date Giorgio Cardona MD PCP - General 10/04/10 04/10/17 [facility] [place] [address] documented as of this encounter
--- OUTSIDE RECORDS SUMMARY | 2022-10-09 16:17 | XMS_ITS | Encounter Summary ---
:1940 Author Organization [facility] Address [address] [place] [address] Care Team Providers Name Role Phone Giorgio Cardona MD Primary Care Provider Reason for Visit Reason Comments Follow-up Encounter Details Date Type Department Care Team Description 03/21/2013 Follow-Up Internal Medicine at Deandre Cardona MD Constipation (Primary Dx); [facility] Dyslipidemia; [facility] Dysphagia, unspecified; Drive GENERAL INTERNAL GERD (gastroesophageal reflu x disease); [place] [address] MEDICINE Hypertension; [phone] [place], [place] [address] Impaired fasting glucose; [phone] (Wo rk) Lung cancer; Multinodu lar goiter; Osteoarthritis; Pancreatic cyst ; Post-nasal drip ; Prostate cancer ; S/P mitral valv e repair; Vocal cord para lysis; Vitamin d defic iency Social History Tobacco Use Types Packs/Day Years Used Date Smoking Tobacco: Never Smokeless Tobacco: Never Alcohol Use Standard Drinks/Week Comments Yes 0 (1 standard drink = 0.6 oz pure alcoho l) RARE Sex Assigned at Date Recorded Not on file documented as of this encounter Last Filed Vital Signs Vital Sign Reading Time Taken Comments Blood Pressure 120/70 03/21/2013 9:30 AM EDT Pulse 59 03/21/2013 9:30 AM EDT Temperature - - Respiratory Rate - - Oxygen Saturation 98% 03/21/2013 9:30 AM EDT at rest room brittanie Inhaled Oxygen Concentration - - Weight 71.7 kg (158 lb) 03/21/2013 9:30 AM EDT Height - - Body Mass Index 26.7 01/14/2013 1:24 PM EST documented in this encounter Patient Instructions Patient InstructionsBaGiorgio luciano MD - 03/21/2013 9:43 AM EDT Check on the dosing of the omeprazole that you are on. i suspect we need to increase your omeprazole to 40mg twice daily. Cut out the coffee and see where you're at. Try claritin 10mg once daily documented in this encounter Progress Notes Giorgio Cardona MD - 03/21/2013 9:31 AM EDT Established Patient Follow-up Visit History of Presenting Illness: Patient here to followup on acute and chronic medical issues A little nauseated. Eats too late - feels awful. Falls asleep shortly after. Drinks coffee - he knows its bad. Unclear what dose of prilosec he is on. Bowels are working well - sometimes twice daily. No black/bloody stools. Repeat in 2018 colonoscopy due to polyps. Has been pushing himself working at this time. Wants to get back into shape. Thinks he's overdoing it. 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 Sore on both sides. Can walk very well. No pain, able to sleep at nighttime. Moves when it hurts. Saw Dr Osborne for hernia. Wondering about regular injections for his voice. Worried about that. Coughing up some mucous. Afterdrinking milk. Has tried nasal spray. Patient reported measures in the past 7 days Pain:1 Physical Health:Good Mental Health:Fair Patient Active Problem [...] features. 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 [id number]; KRAS negative, EGFR negative --09/2010: CT scan - normal --02/2011: CT scan --09/2011: CT scan - negative annual CT's afterwards Outpatient Encounter Prescriptions as of 03/21/2013 Medication Sig Dispense Refill ??? polyethylene glycol [...] ??? None Social History Narrative ??? None Objective Filed Vitals: 03/21/13 0930 BP: 120/70 Pulse: 59 Weight: 71.668 kg (158 lb) SpO2: 98% Gen -no acute distress. Alert, responsive and comfortable Assessment/Plan: 1. Post-nasal drip/allergic rhinitis Continues to be a problem. Suggest claritin. Declines nasal spray 2. Hyperthyroidism s/p radioactive iodine 3. Goiter causing ? anatomical obstruction --continue to monitor biochemical parameters 4. DJD Knee --much improved s/p TKA. Very pleased with results. 5. S/p Mitral Regurgitation --reviewed echo in 2010. Will recheck echocardiogram. 6. Depression/Insomnia --much improved at this time. Happy to be back for work. 7. Lung Cancer --saw Dr Jacome recently in Dec 2012. F/u in 1 year 8. Pancreatic Lesion --on recent CT stable. Obtain CT results. Likely 1-2 year f/u. 9. GERD Increase to 40mg twice daily. He will call. 10. Prostate Cancer --continue PSA yearly. Last saw Rad onc in Oct 2012 11. Diverticulitis Negative currently 12. Hypertension Hypertension Plan of Care [X] Stable and controlled: continue current medications as prescribed [ ] Uncontrolled: change medication as follows: [ ] Life style modifications discussed: weight loss, low salt diet, exercise and moderation of alcohol intake [ ] Return for assessment in This plan of care was made in collaboration with the patient/family 13. Dyslipidemia stable Patient Instructions: Patient Instructions Check on the dosing of the omeprazole that you are on. i suspect we need to increase your omeprazole to 40mg twice daily. Cut out the coffee and see where you're at. Try claritin 10mg once daily I counselled the patient on the above [...] by one of my nurses, letter, or [facility]. Next Appointment: 6 months annual with labs. Total time: 20 Minutes, 15 Of the visit time was spent in [id number] counselling of the above issues Orders placed in this Encounter: Orders Placed This Encounter Procedures ??? MRI abdomen WO contrast Standing Status: Future Number of Occurrences: Standing Expiration Date: 05/20/2013 Order Specific Question: Where will study be performed? Answer: [facility] Order Specific Question: Reason for exam and clinical history: Answer: f/u ipmn Order Specific Question: Stat read required? Answer: No Order Specific Question: Does patient require sedation? Answer: None ??? CBC (with Diff) Standing Status: Future Number of Occurrences: Standing Expiration Date: 03/20/2014 ??? CMP w/fasting Glucose Standing Status: Future Number of Occurrences: Standing Expiration Date: 03/20/2014 ??? Hemoglobin A1c Standing Status: Future Number of Occurrences: Standing Expiration Date: 03/20/2014 ??? Lipid panel (fasting) Standing Status: Future Number of Occurrences: Standing Expiration Date: 03/20/2014 ??? VIT D Total Evaluation Standing Status: Future Number of Occurrences: Standing Expiration Date: 03/20/2014 ??? Folate, serum Standing Status: Future Number of Occurrences: Standing Expiration Date: 03/20/2014 ??? Vitamin B12 Standing Status: Future Number of Occurrences: Standing Expiration Date: 03/20/2014 ??? TSH Standing Status: Future Number of Occurrences: Standing Expiration Date: 03/20/2014 ??? T4, free Standing Status: Future Number of Occurrences: Standing Expiration Date: 03/20/2014 ??? PSA Standing Status: Future Number of Occurrences: Standing Expiration Date: 03/21/2014 ??? Echo Transthoracic (Complete) Standing Status: Future Number of Occurrences: Standing Expiration Date: 03/21/2014 Order Specific Question: Which DH location will this be performed? Answer: [facility] No results found for this or any previous visit (from the past 72 hour(s)). documented in this encounter Plan of Treatment Upcoming Encounters Date Type Specialty Care Team Description 10/11/2022 Office Visit Dermatology Virgilio Mckeon MD [facility] DR CHRISTIANO HENSON-DERMAT OLOGY [place], [place] [address] (Wo rk) 10/16/2022 Office Visit Otolaryngology Frank Buchanan MD [facility] OTOLARYNGOLOGMireille D EPT. [place], [place] [address] (Wo rk) 11/29/2022 Appointment Hematology and Oncology 11/29/2022 Office Visit Radiation Oncology Autumn, Emerald M, [facility] ER RADIATION [place] [id number] (Wo rk) documented as of this encounter Results T4, free (09/29/2013 9:35 AM EST) athologist Signature Free T4 1.58 0.90 - 1.60 CERNER ng/dL MILLENNIUM Specimen Anatomical Collection Method Collection Time Receive d Time (Source) Location / / Volume Laterality Blood specimen 09/29/2013 9:35 AM 013 9:47 (specimen) EST AM EST Resulting Agency Comment Spec In Lab Giorgio Cardona MD CHEMISTRY ORDERABLES Performing Organization Address City/[facility]/[place] [address] CERNER MILLENNIUM (ABNORMAL) TSH (09/29/2013 9:35 AM EST) athologist Signature TSH 5.00 (H) 0.27 - 4.20 CERNER mcIU/mL MILLENNIUM Specimen Anatomical Collection Method Collection Time Receive d Time (Source) Location / / Volume Laterality Blood specimen 09/29/2013 9:35 AM 013 9:47 (specimen) EST AM EST Resulting Agency Comment Spec In Lab Giorgio Cardona MD CHEMISTRY ORDERABLES Performing Organization Address City/[facility]/[place] [address] CERNER MILLENNIUM Vitamin B12 (09/29/2013 9:35 AM EST) athologist Signature Vitamin B-12 460 207 - 974 CERNER pg/mL MILLENNIUM Specimen Anatomical Collection Method Collection Time Receive d Time (Source) Location / / Volume Laterality Blood specimen 09/29/2013 9:35 AM 013 9:47 (specimen) EST AM EST Resulting Agency Comment Spec In Lab Giorgio Cardona MD CHEMISTRY ORDERABLES Performing Organization Address City/[facility]/[place] [address] CERNER MILLENNIUM Folate, serum (09/29/2013 9:35 AM EST) athologist Signature Folate Lvl 17.5 4.6 - 34.8 CERNER ng/mL [facility] Specimen Anatomical Collection Method Collection Time Receive d Time (Source) Location / / Volume Laterality Blood specimen 09/29/2013 9:35 AM 013 9:47 (specimen) EST AM EST Resulting Agency Comment Spec In Lab Giorgio Cardona MD CHEMISTRY ORDERABLES Performing Organization Address City/[facility]/ZIP Code [facility] e Number [address] CERNER MILLENNIUM VIT D Total Evaluation (09/29/2013 9:35 AM EST) athologist Signature 25-OH Vit D 39 30 - 100 CERNER Total ng/mL [facility] Comment: Deficient <10 ng/mL Insufficient 10 to 29 ng/mL Sufficient 30 to 100 ng/mL Potential Intoxication >100 ng/mL According to the [place] National Osteoporosi s Foundation, Vitamin D concentrations >30 ng/mL are sufficient to protect bone health. ??The National Kidney Foundation has similarly stated that pat ients with Vitamin D concentrations <30ng/mL should be considered to be insu fficient or deficient. http://www.kidney.org/professionals/KDOQ I/guidelines_bone/Guide7.htm http://www.nof.org/professionals/clinica l-guidelines The IDS iSYS Vitamin D Immunoassay detec ts both 25-OH Vitamin D2 and 25-OH Vitamin D3, but only a total Vitamin D c oncentration is reported. Specimen Anatomical Collection Method Collection Time Receive d Time (Source) Location / / Volume Laterality Blood specimen 09/29/2013 9:35 AM 013 9:47 (specimen) EST AM EST Resulting Agency Comment Spec In Lab Giorgio Cardona MD CHEMISTRY ORDERABLES Performing Organization Address City/[facility] [place] [address] CERNER MILLENNIUM (ABNORMAL) Lipid panel (fasting) (09/29/2013 9:35 AM EST) athologist Signature Chol, Total 209 (H) <=199 CERNER mg/dL [facility] Comment: Recommendations of the NCEP Adult Treatm ent Panel for the following risk cutoff thresholds for the [place] populatio n: Desirable: <200 mg/dL Borderline High: 200-239 mg/dL High: > or = 240 mg/dL Triglycerides 56 <=149 mg/dL CEREVA NELSONENN IUM Comment: Reference Range: Normal triglycerides: ??<150 mg/dL Borderline high: ??150-199 mg/dL High: ??200-499 mg/dL Very high: ??>om=770 mg/dL KENDRA 2001; 285(19):7208-6616 HDL 76 >=40 mg/dL AMOREVA MILLENNIUM Comment: Reference range: ??Low HDL: ?? < 40 mg/dL ??Normal: ?40-60 mg/dL ??Desirable: > 60 mg/dL KENDRA 2001; 285(19):1573-5933 LDL Cholesterol 122 (H) <=99 mg/dL MARIAMA PATRICK NIUM Comment: Reference range: ?? Optimal: ?<100 mg/dL ?? Near Optimal/Above Optimal: ?? 100-1 29 mg/dL ?? Borderline high: ?130-159 mg/dL ?? High: ? 160-189 mg/dL ?? Very high: ?>gl=651 mg/dL KENDRA 2001: 285(19):2809-8017 Chol/HDL Ratio 2.8 ratio CERNER MILLENNI UM Comment: A Cholesterol to HDL ratio below 4:1 is desirable. ??Studies suggest that increased CAD risk occurs at ratios abov e 5 for females and above 6 for men. ? [place] Heart Association ??(htt p://www.americanheart.org) ? Anay Int Med, 1994; 121:641 ? AM J Med, 1998; 105(1A):48S Specimen Anatomical Collection Method Collection Time Receive d Time (Source) Location / / Volume Laterality Blood specimen 09/29/2013 9:35 AM 013 9:47 (specimen) EST AM EST Resulting Agency Comment Spec In Lab Giorgio Cardona MD CHEMISTRY ORDERABLES Performing Organization Address City/State/ZIP Code [place]rupti [facility] [id number] CERNER MILLENNIUM Hemoglobin A1c (09/29/2013 9:35 AM EST) P athologist Signature Hemoglobin A1C 5.8 4.3 - 6.1 CERNER % MILLENNIUM Comment: The [place] Diabetes Association (ADA) has stated that HbA1c values >or= 6.5% are consistent with the diagnosis of juliana betes mellitus. In the absence of hyperglycemia (i.e. plasma glucose > 200 mg/dL) or classic symptoms of hyperglycemia a repeat measurement of Hb A1c should be performed on a separate sample to confirm the diagnosis. The ADA also considers an HbA1c value be tween 5.7% and 6.4% to be consistent with an increased risk of diabetes (pred iabetes). Patients with an HbA1c value in this range should be counseled about their increased risk of progressing to diabetes. Reference: Position Statement: Standards of Medical Care in Diabetes ? 2013. Diabetes Care 2013:36;suppl 1:S11-S66. Est Avg Gluc See note mg/dL CERNER MILLENNIUM Comment: Estimated Average Glucose not appropriat e [...] with hemoglobinopathies. Additional resources are available on e ADA website: ??http://professional.diabetes.org/gluc osecalculator.aspx Eliot FAJARDO, Abhishek J, Denisse R, et al. ??Tr anslating the A1C assay into estimated average glucose values. ??Diabetes Care 2008:31(8):1499-1509. Specimen Anatomical Collection Method Collection Time Receive d Time (Source) Location / / Volume Laterality Blood specimen 09/29/2013 9:35 AM 013 9:47 (specimen) EST AM EST Resulting Agency Comment Spec In Lab Giorgio Cardona MD CHEMISTRY ORDERABLES Performing Organization Address City/State/[place] [address] CERNER MILLENNIUM (ABNORMAL) CMP w/fasting Glucose (09/29/2013 9:35 AM EST) athologist Signature Glucose 115 (H) 65 - 99 CERNER Fasting mg/dL MILLENNIUM Comment: ?Fasting* Glucose Interpretive C riteria Normal [...] of Diabetes Mellitus, Position Statement from the [place] Diabetes Association. ??Diabete s Care, Volume 33, Supplement 1, Nov 2009 BUN 21 (H) 10 - 20 mg/dL CERNER MILLENNIU M Creatinine 1.05 0.80 - 1.50 mg/dL CERNER MILL ENNIUM Comment: Please note that the pediatric reference intervals supplied above were not validated at [facility]. Results from pediatri c patients should be [...] estions. Chloride 102 98 - 107 mmol/L CERNER MILLENN IUM CO2 27 22 - 31 mmol/L CERNER MILLENNI UM Anion Gap 11 5 - 15 mmol/L CERNER MILLENNIU M Calcium 8.6 8.5 - 10.5 mg/dL CERNER PATRICK NIUM Total Protein 6.9 6.4 - 8.3 gm/dL CERNER MIL LENNIUM Albumin 4.1 3.2 - 5.2 gm/dL CERNER MILLENN IUM AST 19 0 - 39 unit/L CERNER MILLENNIU M ALT 10 0 - 55 unit/L CERNER MILLENNIU M Alk Phos 68 40 - 120 unit/L CERNER MILLENN IUM Total Bilirubin 0.5 0.2 - 1.3 mg/dL CERNER M ILLENNIUM [...] Location / / Volume Laterality Blood specimen 09/29/2013 9:35 AM 013 9:47 (specimen) EST AM EST Resulting Agency Comment Spec In Lab Giorgio Cardona MD CHEMISTRY ORDERABLES Performing Organization Address City/[facility]/[place] [address] CERNER MILLENNIUM (ABNORMAL) CBC (with Diff) (09/29/2013 9:35 AM EST) P athologist Signature WBC 5.7 4.0 - 10.0 CERNER x10(3)/mcL MILLENNIUM RBC 4.08 (L) 4.63 - CERNER 6.08 MILLENNIUM x10(6)/mcL Hemoglobin 13.3 (L) 13.7 - CERNER 17.5 gm/dL MILLENNIUM Hematocrit 40.4 40.0 - CERNER 51.0 % MILLENNIUM MCV 99.0 (H) 79.0 - CERNER 92.0 fL MILLENNIUM MCH 32.6 (H) 25.6 - CERNER 32.2 pg MILLENNIUM MCHC 32.9 32.0 - CERNER 36.5 gm/dL MILLENNIUM Platelets 204 145 - 370 CERNER x10(3)/mcL MILLENNIUM RDWSD 49.0 (H) 35.0 - CERNER 46.0 fL MILLENNIUM RDWCV 13.6 10.9 - CERNER 14.4 % MILLENNIUM MPV 11.0 9.0 - 12.0 CERNER fL MILLENNIUM Specimen Anatomical Collection Method Collection Time Receive d Time (Source) Location / / Volume Laterality Blood specimen 09/29/2013 9:35 AM 013 9:47 (specimen) EST AM EST Resulting Agency Comment Spec In Lab Giorgio Cardona MD HEMATOLOGY ORDERABLES Performing Organization Address City/State/[place] [address] CERNER MILLENNIUM Echo Transthoracic (Complete) (03/28/2013 2:30 PM EDT) P athologist Signature [facility] Anatomical Region Laterality Modality Other Specimen (Source) Anatomical Location Collection Method / Collectio n Time Received Time / Laterality Volume 03/28/2013 Narrative 03/28/2013 2:55 PM EDT Procedure: ? Transthoracic Echocardiogram Patient: ? RACQUEL Rodriguez ? (Age): 1940(72) Med Rec#: ?[id number] ? Sex: ?M ? [place] ? Ht / Wt: ??164(cm)/71(kg) Pt. Loc: ? Echo Lab ? BSA: ?1.8 Study Date: ?03/28/2013 ? Pt. Type: Outpatient Tape: ? Referring: Giorgio Cardona Sample Preparation Supervisor: Alyssa Kunz Diagnosis:CPT Code(s): ??Echo Full (9330 7), ??Spectral Doppler (10596), Color Doppler (95779), Indication(s): ??Mitral valve repair Rhythm: Sinus HR ?BP ?130/70 ?? SUMMARY: 1. Left ventricular chamber size, wall t hickness, global and segmental systolic function are within normal limi ts. Ejection fraction is estimated to be 65%. There are no left v entricular segmental wall motion abnormalities. Right ventricular chamber size, wall thickness, and systolic function are within normal limi ts. 2. The left atrium and ??right atrium ar e ??mildly dilated. 3. The aortic valve is tricuspid. The ao rtic valve leaflets are mildly thickened. Status-post placement of a mi tral valve ring. ??There is mild to moderate (1-2+/4+) mitral regurgitati on present. The mean gradient across the mitral valve is 3 mmHg. The t ricuspid valve appears normal in structure and function. There is mild (1 +/4+) tricuspid regurgitation present. 4. The estimated pulmonary artery systol ic pressure is 28 mmHg. The pericardium appears normal and there is no evidence of a pericardial effusion. ??When compared side by side t o the prior 03/28/11 study, LV function appears similar, the mitral reg urgitation is slightly more prominent but still in the mild to mild range. ?? FINDINGS: Left Ventricle ?Left ventricular chamber size, wal l thickness, global and segmental systolic function are within normal limi ts. Ejection fraction is estimated to be 65%. ?There are no left ventricular segm ental wall motion abnormalities. ?Left sided filling pressure could not be assessed by Doppler. ?A false chord is observed in the l eft ventricle. Left Atrium ?The left atrium is mildly dilated. Right Ventricle ?Right ventricular chamber size, wa ll thickness, and systolic function are within normal limits. ?No pulmonary hypertension is noted . ?The estimated pulmonary artery sys tolic pressure is 28 mmHg. ?The estimated right atrial pressur e is 3 mmHg. Right Atrium ?The right atrium is mildly dilated . Aortic Valve ?The aortic valve is tricuspid. ?The aortic valve leaflets are mild ly thickened. ?Systolic excursion of the aortic v alve is normal. ?There is no evidence of aortic aden ve stenosis. ?There is a trace of aortic regurgi tation present. Mitral Valve ?The mean gradient across the lesley l valve is 3 mmHg. ?The mitral valve area is calculate d at 2.9 cm2. ?There is mild to moderate (1-2+/4+ ) mitral regurgitation present. ?Status-post placement of a mitral valve [...] in the inferior vena cava dimension. Misc ?See remainder of report for additi onal findings. ?Two-dimensional echo, spectral Dop pler and color Doppler performed. Wall Motion: Segment Name ?Rest ? Base-Anteroseptal ?? Normal ? Base-Anterior ? Normal ? Base-Anterolateral ??Normal ? Base-Posterolateral Normal ? Base-Inferior ? Normal ? Base-Inferoseptal ?? Normal ? Mid-Anteroseptal ?Normal ? Mid-Anterior ?Normal ? Mid-Anterolateral ?? Normal ? Mid-Posterolateral ??Normal ? Mid-Inferior ?Normal ? Mid-Inferoseptal ?Normal ? [place]-Septal ? Normal ? [place]-Anterior ? Normal ? [place]-Lateral ?Normal ? [place]-Inferior ? Normal ? [place]-Tip ?Normal ? Chambers ?Value ?Units (Range) ? LV EF Est ? 65 ? % (55 to 80) ? IVSd 2D ? 1.1 ?cm ? LVIDd 2D ?4.9 ?cm ? PWd 2D ?0.9 ?cm ? LVIDs 2D ?2.8 ?cm ? LVFS 2D ? 43 ? % ? LA area ? 26 ? cm2 (<21) ? RA area ? 19 ? cm2 (<18) ? Ao root ? 3.4 ?cm (2.1 to 3.6) ? Asc Ao ?2.9 ?cm (2 to 3.5) ? Mitral Valve ?Value ?Units (Range) ? MV grad M ? 3 ?mmHg ? MVA(pht) ?2.9 ?cm2 (4 to 6) ? E peak ?1.4 ?m/sec ? E/A ratio ? 1.2 ?ratio ? MVDT ?222 ?msec ? E1 ?0.06 ? m/sec ? E/E1 ?23 ? ratio ? Tricuspid/Pulmonic Valves ?Value ?Units (Range) ? TR peak marsha ? 2.5 ?m/sec ? RAP ? 3 ?mmHg ? RVSP/PASP ? 28 ? mmHg ? PADP ?3 ?mmHg ? This report has been electronically sign ed by: _ Adan Au MD ? 03/28/2013 14:55: 07 Images reviewed and interpretation [facility] Cardiac Ultrasound Laboratory Procedure Note Adan Au MD - 03/28/2013 Procedure: Transthoracic Echocardiogram Patient: RACQUEL Rodriguez DOB(Age): 1940(72) Med Rec#: [id number] Sex: M [place] [facility] Ht / Wt: 164(cm)/71(kg) Pt. Loc: Echo Lab BSA: 1.8 Study Date: 03/28/2013 Pt. Type: Outpati ent Tape: Referring: Giorgio Cardona Sample Preparation Supervisor: Alyssa Kunz Diagnosis:CPT Code(s): Echo Full (33163) , Spectral Doppler (45140), Color Doppler (11711), Indication(s): Mitral valve repair Rhythm: Sinus HR BP 130/70 SUMMARY: 1. Left ventricular chamber size, wall t hickness, global and segmental systolic function are within normal limi ts. Ejection fraction is estimated to be 65%. There are no left v entricular segmental wall motion abnormalities. Right ventricular chamber size, wall thickness, and systolic function are within normal limi ts. 2. The left atrium and right atrium are mildly dilated. 3. The aortic valve is tricuspid. The ao rtic valve leaflets are mildly thickened. Status-post placement of a mi tral valve ring. There is mild to moderate (1-2+/4+) mitral regurgitati on present. The mean gradient across the mitral valve is 3 mmHg. The t ricuspid valve appears normal in structure and function. There is mild (1 +/4+) tricuspid regurgitation present. 4. The estimated pulmonary artery systol ic pressure is 28 mmHg. The pericardium appears normal and there is no evidence of a pericardial effusion. When compared side by side to the prior 03/28/11 study, LV function appears similar, the mitral reg urgitation is slightly more prominent but still in the mild to mild range. FINDINGS: Left Ventricle Left ventricular chamber size, wall thi ckness, global and segmental systolic function are within normal limi ts. Ejection fraction is estimated to be 65%. There are no left ventricular segmental wall motion abnormalities. Left sided filling pressure could not b e assessed by Doppler. A false chord is observed in the left v entricle. Left Atrium The left atrium is mildly dilated. Right Ventricle Right ventricular chamber size, wall th ickness, and systolic function are within normal limits. No pulmonary hypertension is noted. The estimated pulmonary artery systolic pressure is 28 mmHg. The estimated right atrial pressure is 3 mmHg. Right Atrium The right atrium is mildly dilated. Aortic Valve The aortic valve is tricuspid. The aortic valve leaflets are mildly th ickened. Systolic excursion of the aortic valve is normal. There is no evidence of aortic valve st enosis. There is a trace of aortic regurgitatio n present. Mitral Valve The mean gradient across the mitral aden ve is 3 mmHg. The mitral valve area is calculated at 2.9 cm2. There is mild to moderate (1-2+/4+) shavon ral regurgitation present. Status-post placement of a mitral valve [...] in the inferior vena cava dimension. Misc See remainder of report for additional findings. Two-dimensional echo, spectral Doppler and color Doppler performed. Wall Motion: Segment Name Rest Base-Anteroseptal Normal Base-Anterior Normal Base-Anterolateral Normal Base-Posterolateral Normal Base-Inferior Normal Base-Inferoseptal Normal Mid-Anteroseptal Normal Mid-Anterior Normal Mid-Anterolateral Normal Mid-Posterolateral Normal Mid-Inferior Normal Mid-Inferoseptal Normal [place]-Septal Normal [place]-Anterior Normal [place]-Lateral Normal [place]-Inferior Normal [place]-Tip Normal Chambers Value Units (Range) LV EF Est 65 % (55 to 80) IVSd 2D 1.1 cm LVIDd 2D 4.9 cm PWd 2D 0.9 cm LVIDs 2D 2.8 cm LVFS 2D 43 % LA area 26 cm2 (<21) RA area 19 cm2 (<18) Ao root 3.4 cm (2.1 to 3.6) Asc Ao 2.9 cm (2 to 3.5) Mitral Valve Value Units (Range) MV grad M 3 mmHg MVA(pht) 2.9 cm2 (4 to 6) E peak 1.4 m/sec E/A ratio 1.2 ratio MVDT 222 msec E1 0.06 m/sec E/E1 23 ratio Tricuspid/Pulmonic Valves Value Units (Range) TR peak marsha 2.5 m/sec RAP 3 mmHg RVSP/PASP 28 mmHg PADP 3 mmHg This report has been electronically sign ed by: _ Adan Au MD 03/28/2013 14:55:07 Images reviewed and interpretation verif mad[facility] Cardiac Ultrasound Laboratory Giorgio Cardona MD ECHO ORDERABLES PSA (03/28/2013 12:26 PM EDT) P athologist Signature PSA Total 0.43 0.00 - CERNER (Ultrasensitiv 4.00 ng/mL MILLENNIUM e) Specimen Anatomical Collection Method Collection Time Receive d Time (Source) Location / / Volume Laterality Blood specimen 03/28/2013 12:26 3 (specimen) PM EDT 12:32 PM EDT Resulting Agency Comment Spec In Lab Giorgio Cardona MD CHEMISTRY ORDERABLES Performing Organization Address City/State/[place] [address] [facility] MILLENNIUM documented in this encounter Visit Diagnoses Diagnosis Constipation - Primary Unspecified constipation Dyslipidemia Other and unspecified hyperlipidemia Dysphagia, unspecified(787.20) Dysphagia, unspecified GERD (gastroesophageal reflux disease) Esophageal reflux Hypertension Unspecified essential hypertension Impaired fasting glucose Lung cancer Malignant neoplasm of bronchus and lung, unspecified site Multinodular goiter Nontoxic multinodular goiter Osteoarthritis Osteoarthrosis, unspecified whether gene ralized or localized, unspecified site Pancreatic cyst Cyst and pseudocyst of pancreas Post-nasal drip Postnasal drip Prostate cancer Malignant neoplasm of prostate S/P mitral valve repair Other postprocedural status Vocal cord paralysis Paralysis of vocal cords or larynx, unsp ecified Vitamin D deficiency Unspecified vitamin D deficiency S/P mitral valve repair Other postprocedural status documented in this encounter Care Teams Model Maker Scale Relationship Specialty Start Date End Date Giorgio Cardona MD PCP - General 10/04/10 04/10/17 [facility] GENERAL [place] [address] documented as of this encounter
--- OUTSIDE RECORDS SUMMARY | 2022-10-09 16:17 | XMS_ITS | Encounter Summary ---
:1940 Author Organization [facility] [place] [address] Care Team Providers Name Role Phone Giorgio Cardona MD Primary Care Provider Encounter Details Date Type Department Care Team Description 09/29/2013 Hospital Encounter Laboratory Adan Donohue, Prostate cancer [facility] [place] [address] RADIATION ONCOLOGY [phone] [place], [place] [address] Social History Tobacco Use Types Packs/Day Years Used Date Smoking Tobacco: Never Smokeless Tobacco: Never Alcohol Use Standard Drinks/Week Comments Yes 0 (1 standard drink = 0.6 oz pure alcoho l) RARE Sex Assigned at Date Recorded Not on file documented as of this encounter Medications at Time of Discharge Medication Sig Dispensed Refills Start Date End Date docusate sodium (COLACE) Take 100 mg by 0 05/08/2014 100 mg capsule mouth 2 times daily. albuterol (PROVENTIL Inhale 2 puffs into 1 Inhaler 1 201204/06/2016 HFA;VENTOLIN HFA) 90 the lungs every 4 mcg/actuation inhaler hours as needed for Wheezing. Use with spacer atenolol (TENORMIN) 50 mg Take 0.5 tablets [...] this encounter Procedure Notes Provider, Scanning - 09/30/2013 11:23 AM ESTAssociated Order(s): SCAN DOC: ULTRASOUND documented in this encounter Plan of Treatment Upcoming Encounters Date Type Specialty Care Team Description 10/11/2022 Office Visit Dermatology Virgilio Mckeon MD [facility] DR CHRISTIANO HENSON-DERMAT OGY [place], [place] [address] (Wo rk) 10/16/2022 Office Visit Otolaryngology Frank Buchanan MD [facility] OTOLARYNGOLOGY Sarah EPT. [place], [place] [address] (Wo rk) 11/29/2022 Appointment Hematology and Oncology 11/29/2022 Office Visit Radiation Oncology Emerald Leyva APRN [facility] RADIATION ONCCESAR GY [place], [place] [address] (Wo rk) Scheduled Orders Name Type Priority Associated Diagnoses Order S chedule PSA Lab Routine Prostate cancer 1 Occurrence s starting 09/29/2013 documented as of this encounter Procedures Procedure Name Priority Date/Time Associated Comments Diagnosis ULTRASOUND SCAN 09/30/2013 11:23 AM Resul ts for this (SCAN) EST procedure are i n the results section. TESTOSTERONE, TOTAL Routine 09/29/2013 9:35 AM Prostate cancer Results for this EST procedure are i n the results section. PSA (ULTRASENSITIVE) STAT 09/29/2013 9:35 AM Prostate cance r Results for this EST procedure are i n the results section. documented in this encounter Results SCAN DOC: ULTRASOUND (09/30/2013 11:23 AM EST) Anatomical Region Laterality Modality Other Narrative 09/30/2013 12:03 PM EST Procedure Note Provider, Scanning - 09/30/2013 11:23 AM EST Scanning Provider MEDIA MGR SCAN EXT ORDR/RSLT Testosterone, total (09/29/2013 9:35 AM EST) P athologist Signature Testo Total 6.98 2.80 - 8.00 CERNER ng/mL MILLENNIUM Comment: Reference Ranges: ? Males (7t o18 [...] reference ranges derived fr om review of [employer] E170 Testosterone reagent package insert 09/16, V8 Stated pediatric reference ranges derive d from review of [employer] E170 Testosterone II reagent package insert 0 05/21, V2. Specimen Anatomical Collection Method Collection Time Receive d Time (Source) Location / / Volume Laterality Blood specimen 09/29/2013 9:35 AM 013 9:47 (specimen) EST AM EST Resulting Agency Comment Spec In Lab Adan Donohue MD CHEMISTRY ORDERABLES Performing Organization Address City/State/ZIP Code Phon e Number [address] [facility] PSA (09/29/2013 9:35 AM EST) P athologist Signature PSA Total 0.36 0.00 - CERNER (Ultrasensitiv 4.00 ng/mL MILLENNIUM e) Specimen Anatomical Collection Method Collection Time Receive d Time (Source) Location / / Volume Laterality Blood specimen 09/29/2013 9:35 AM 013 9:47 (specimen) EST AM EST Resulting Agency Comment Spec In Lab Adan Donohue MD CHEMISTRY ORDERABLES Performing Organization Address City/[facility]/ZIP Code Phon e Number [address] [facility] documented in this encounter Visit Diagnoses Diagnosis Prostate cancer Malignant neoplasm of prostate documented in this encounter Care Teams Preservationist Relationship Specialty Start Date End Date Giorgio Cardona MD PCP - General 10/04/10 04/10/17 [facility] [place] [address] documented as of this encounter
--- OUTSIDE RECORDS SUMMARY | 2022-10-09 16:17 | XMS_ITS | Encounter Summary ---
:1940 Author Organization [facility] [place] [address] Care Team Providers Name Role Phone Giorgio Cardona MD Primary Care Provider Encounter Details Date Type Department Care Team Description 01/07/[address] [place] [facility] [place] [address] Social History Tobacco Use Types Packs/Day [...] 10/11/2022 Office Visit Dermatology Virgilio Mckeon MD [facility] DR CHRISTIANO HENSON-DERMAT OLOGY [place], [place] [address] (Wo rk) 10/16/2022 Office Visit Otolaryngology Frank Buchanan MD [facility] OTOLARYNGOLOGY Sarah EPT. [place], [place] [address] (Wo rk) 11/29/2022 Appointment Hematology and Oncology 11/29/2022 Office Visit Radiation Oncology Emerald Leyva APRN [facility] RADIATION ONCOLO GY [place], [place] [address] (Wo rk) documented as of this encounter Procedures Procedure Name Priority Date/Time Associated Diagnosis Comme nts CT CHEST WO Routine 01/07/2013 3:10 PM Lung cancer Results f or this CONTRAST (GENERIC) EST procedure are in the results section. documented in this encounter Results CT chest WO contrast (01/07/2013 3:10 PM EST) Anatomical Region Laterality Modality Chest Computed Tomography Specimen (Source) Anatomical Collection Method Collection Time Re ceived Time Location / / Volume Laterality 01/07/2013 3:10 PM EST Narrative 01/07/2013 3:[address] chest without contrast Clinical History lung cancer Technique 3.75 mm thick axial contiguous sections were obtained through the chest via helical acquisition without intravenous contrast administration. Thin-section reconstructions as well as coronal and s agittal reformatted images were generated to aid in evaluation. ?? Comparison 02/15/2012. Findings Pulmonary parenchyma: Status post right lower lobectomy with no findings for recurrence at the resection site. No new or enlarging pulmonary nodules are seen. Airways: No significant findings. Pleura: Mild right basilar /dorsal pleur al thickening with equivocal trace fluid, unchanged. No significant interva l findings. Lymph nodes:No thoracic lymphadenopathy ?? Heart, pericardium, and great vessels:No significant interval findings. Other mediastinal structures: No signifi cant interval findings. Lower neck:Stable post-thyroidectomy nelson earance. Upper abdomen:Small bilateral renal cyst s and left adrenal adenoma, unchanged. No significant interval findings. Skeletal structures:No significant inter aden findings. Impression Stable post lobectomy appearance on the right with no evidence of new or recurrent disease. ?? Unchanged left adrenal adenoma. Procedure Note Eliz Valderrama MD - 01/07/2013Formatt ing of this note might be different from the original. Examination CT chest without contrast Clinical History lung cancer Technique 3.75 mm thick axial contiguous sections were obtained through the chest via helical acquisition without intravenous contrast administration. Thin-section reconstructions as well as coronal and s agittal reformatted images were generated to aid in evaluation. Comparison 02/15/2012. Findings Pulmonary parenchyma: Status post right lower lobectomy with no findings for recurrence at the resection site. No new or enlarging pulmonary nodules are seen. Airways: No significant findings. Pleura: Mild right basilar /dorsal pleur al thickening with equivocal trace fluid, unchanged. No significant interva l findings. Lymph nodes:No thoracic lymphadenopathy Heart, pericardium, and great vessels:No significant interval findings. Other mediastinal structures: No signifi cant interval findings. Lower neck:Stable post-thyroidectomy nelson earance. Upper abdomen:Small bilateral renal cyst s and left adrenal adenoma, unchanged. No significant interval findings. Skeletal structures:No significant inter aden findings. Impression Stable post lobectomy appearance on the right with no evidence of new or recurrent disease. Unchanged left adrenal adenoma. Lois Jacome MD IMG CT ORDERABLES documented in this encounter Visit Diagnoses Diagnosis Lung cancer Malignant neoplasm of bronchus and lung, unspecified site documented in this encounter Care Teams Physician General Internal Medicine Relationship Specialty Start Date End Date Giorgio Cardona MD PCP - General 10/04/10 04/10/17 [facility] GENERAL [place] [address] documented as of this encounter
--- OUTSIDE RECORDS SUMMARY | 2022-10-09 16:17 | XMS_ITS | Encounter Summary ---
:1940 [place] [address] Care Team Providers Name Role Phone Giorgio Cardona MD Primary Care Provider Encounter Details Date Type Department Care Team Description 03/28/2013 Hospital Encounter Non-Invasive S/P lesley [place] valve [place] [address] Social History Tobacco Use Types Packs/Day [...] [facility] CHRISTIANO HENSON-DERMAT OLOGY [place], [place] [address] (Wo rk) 10/16/2022 Office Visit Otolaryngology Frank Buchanan MD [facility] OTOLARYNGOLOGY D EPT. [place], [place] [address] (Wo rk) 11/29/2022 Appointment Hematology and Oncology 11/29/2022 Office Visit Radiation Oncology Emerald Leyva APRN [facility] RADIATION ONCCESAR GY [place], [place] [address] (Wo rk) documented as of this encounter Procedures Procedure Name Priority Date/Time Associated Comments Diagnosis ECHOCARDIOGRAM Routine 03/28/2013 2:30 PM S/P mitral valve Res ults for this TRANSTHORACIC EDT repair procedure are in the results section. documented in this encounter Results Echo Transthoracic (Complete) (03/28/2013 2:30 PM EDT) P athologist Signature EF [facility] Anatomical Region Laterality Modality Other Specimen (Source) Anatomical Location Collection Method / Collectio n Time Received Time / Laterality Volume 03/28/2013 Narrative 03/28/2013 2:55 PM EDT Procedure: ? Transthoracic Echocardiogram Patient: ? RACQUEL Rodriguez ? (Age): 1940(72) Med Rec#: ?[id number] ? Sex: ?M ? Site Loc: ?[facility] [place] ? Ht / Wt: ??164(cm)/71(kg) Pt. Loc: ? Echo Lab ? BSA: ?1.8 Study Date: ?03/28/2013 ? Pt. Type: Outpatient Tape: ? Referring: Giorgio Cardona General Foreman: Alyssa Kunz Diagnosis:CPT Code(s): ??Echo Full (9330 7), ??Spectral Doppler (95257), Color Doppler (52746), Indication(s): ??Mitral valve repair Rhythm: Sinus HR [...] ? Mid-Inferior ?Normal ? Mid-Inferoseptal ?Normal ? [place]-Septal ? Normal ? [place]-Anterior ? Normal ? [place]-Lateral ?Normal ? [place]-Inferior ? Normal ? [place]-Tip ?Normal ? Chambers ?Value ?Units (Range) ? [...] been electronically sign ed by: _ Adan Mcdonald. MD Roe ? 03/28/2013 14:55: 07 Images reviewed and interpretation verif ied [facility] Cardiac Ultrasound Laboratory Procedure Note Adan Au MD - 03/28/2013 Procedure: Transthoracic Echocardiogram Patient: RACQUEL BLANCAS(Age): 1940(72) Med Rec#: [id number] Sex: M Site Loc: [facility] [place] Ht / Wt: 164(cm)/71(kg) Pt. Loc: Echo Lab BSA: 1.8 Study Date: 03/28/2013 Pt. Type: Outpati ent Tape: Referring: Giorgio Cardona General Foreman: Alyssa Kunz Diagnosis:CPT Code(s): Echo Full (38521) , Spectral Doppler (09021), Color Doppler (75423), Indication(s): Mitral valve repair Rhythm: Sinus HR [...] Normal Mid-Posterolateral Normal Mid-Inferior Normal Mid-Inferoseptal Normal [place]-Septal Normal [place]-Anterior Normal [place]-Lateral Normal [place]-Inferior Normal [place]-Tip Normal Chambers Value Units (Range) LV EF [...] 03/28/2013 14:55:07 Images reviewed and interpretation verif ied [facility] Cardiac Ultrasound Laboratory Giorgio Cardona MD ECHO ORDERABLES documented in this encounter Visit Diagnoses Diagnosis S/P mitral valve repair Other postprocedural status documented in this encounter Care Teams Mental Health Director Relationship Specialty Start Date End Date Giorgio Cardona MD PCP - General 10/04/10 04/10/[address] [facility] [address]LLY [place] [address] documented as of this encounter
--- OUTSIDE RECORDS SUMMARY | 2022-10-09 16:17 | XMS_ITS | Encounter Summary ---
:1940 Author Organization [facility] Address [address] [place] [address] Care Team Providers Name Role Phone Giorgio Cardona MD Primary Care Provider Reason for Visit Reason Onset Date Comments Other 10/16/2012 stuck finger with na il Encounter Details Date Type Department Care Team Description 10/16/2012 [place]phone [place] [facility]ilpa Myers, RN Other (stuck finger [facility] D rive with nail) [place] [address] Social History Tobacco Use Types Packs/Day Years Used Date Smoking Tobacco: Never Smokeless Tobacco: Never Alcohol Use Standard Drinks/Week Comments No 0 (1 standard drink = 0.6 oz pure alcoho l) Sex Assigned at Date Recorded Not on file documented as of this encounter Miscellaneous Notes Telephone Encounter - Shilpa Myers RN - 10/16/2012 9:21 AM EST DJD right knee s/p R TKA Dr. Quezada 06/19/12 Juan A Latham called reporting that he was working in his shop and poked a nail in his index finger. Patient states that he cleaned the area well and applied a dressing. Patient questions if he should be seen. Discussed with patient that if he has any question he should call his PCP , he was also instructed to check that his tetanus booster is up to date. Patient was acceptable with the plan of care and will call with any questions or concerns. documented in this encounter Plan of Treatment Upcoming Encounters Date Type Specialty Care Team Description 10/11/2022 Office Visit Dermatology Virgilio Mckeon MD [facility] DR CHRISTIANO HENSON-DERMAT OLOGY [place], [place] [address] (Wo rk) 10/16/2022 Office Visit Otolaryngology Frank Buchanan MD [facility] OTOLARYNGOLOGY Sarah EPT. [place], [place] [address] (Wo rk) 11/29/2022 Appointment Hematology and Oncology 11/29/2022 Office Visit Radiation Oncology Emerald Leyva APRN [facility] RADIATION ONCOLO GY [place], [place] [address] (Wo rk) documented as of this encounter Visit Diagnoses Not on filedocumented in this encounter Care Teams Sand Molder Relationship Specialty Start Date End Date Giorgio Cardona MD PCP - General 10/04/10 04/10/17 [facility] [place] [address] documented as of this encounter
--- OUTSIDE RECORDS SUMMARY | 2022-10-09 16:17 | XMS_ITS | Encounter Summary ---
:1940 Author Organization [facility] [place] [address] Care Team Providers Name Role Phone Giorgio Cardona MD Primary Care Provider Encounter Details Date Type Department Care Team Description 12/12/2012 Telephone Otolaryngology at [facility] [place] [address] Social History Tobacco Use Types Packs/Day Years Used Date Smoking Tobacco: Never Smokeless Tobacco: Never Alcohol Use Standard Drinks/Week Comments Yes 0 (1 standard drink = 0.6 oz pure alcoho l) RARE Sex Assigned at Date Recorded Not on file documented as of this encounter Miscellaneous Notes Telephone Encounter - Logan Monzon - 12/12/2012 4:30 PM EST Declined surgery, 2nd opinion, said it was not a perminit fix. documented in this encounter Plan of Treatment Upcoming Encounters Date Type Specialty Care Team Description 10/11/2022 Office Visit Dermatology Virgilio Mckeon MD [facility] DR CHRISTIANO HENSON-DERMAT [place], [place] [address] (Wo rk) 10/16/2022 Office Visit Otolaryngology Frank Buchanan MD [facility] DR OTOLARYNGOLOGY D EPT. [place], [place] [address] (Wo rk) 11/29/2022 Appointment Hematology and Oncology 11/29/2022 Office Visit Radiation Oncology Emerald Leyva APRN [facility] RADIATION ONCOLO GY [place], [place] [address] (Wo rk) documented as of this encounter Visit Diagnoses Not on filedocumented in this encounter Care Teams Personal Injury Specialist Relationship Specialty Start Date End Date Giorgio Carodna MD PCP - General 10/04/10 04/10/17 [facility] [place] [address] documented as of this encounter
--- OUTSIDE RECORDS SUMMARY | 2022-10-09 16:17 | XMS_ITS | Encounter Summary ---
:1940 Author Organization [facility] [place] [address] Care Team Providers Name Role Phone Giorgio Cardona MD Primary Care Provider Reason for Visit Reason Onset Date Comments Other 04/25/2013 difficulty breathing Encounter Details Date Type Department Care Team Description 04/25/2013 Telephone Internal Medicine at [facility] (difficulty [facility] RN breathing) [place] [address] Social History Tobacco Use Types Packs/Day Years Used Date Smoking Tobacco: Never Smokeless Tobacco: Never Alcohol Use Standard Drinks/Week Comments Yes 0 (1 standard drink = 0.6 oz pure alcoho l) RARE Sex Assigned at Date Recorded Not on file documented as of this encounter Miscellaneous Notes Telephone Encounter - Rochelle Dunaway RN - 04/25/2013 2:36 PM EDT Pt calling to report that he is having new SOB that started last night and getting worse today. He has a productive cough, raising white phlegm. No fever. Is not making full sentences and does have an audible wheeze to his respirations as heard by this policy writer while talking to the pt. He is requesting to see Dr. Cardona and will have his drive him to the clinic. Given SDA with Dr. Karan MD today. Pt to come now and to go to get CxR & labs prior to the appointment. Reviewed with Dr. Russo, no new orders at this time. documented in this encounter Plan of Treatment Upcoming Encounters Date Type Specialty Care Team Description 10/11/2022 Office Visit Dermatology Virgilio Mckeon MD [facility] DR CHRISTIANO HENSON-DERMAT OLOGY [place], [place] [address] (Wo rk) 10/16/2022 Office Visit Otolaryngology Frank Buchanan MD [facility] OTOLARYNGOLOGY Sarah EPT. [place], [place] [address] (Wo rk) 11/29/2022 Appointment Hematology and Oncology 11/29/2022 Office Visit Radiation Oncology Emerald Leyva APRN [facility] RADIATION ONCOLO GY [place], [place] [address] (Wo rk) documented as of this encounter Results Basic Metabolic Panel (non-fasting) (04/25/2013 2:54 PM EDT) athologist Signature Glucose Lvl 121 60 - 199 CERNER mg/dL MILLENNIUM Comment: Diabetes: >=200 mg/dL plus symp toms BUN 20 10 - 20 mg/dL CERNER MILLENNIU M Creatinine 1.09 0.80 - 1.50 mg/dL CERNER MILL ENNIUM Comment: Please note that the pediatric reference intervals supplied above were not validated at [facility]. Results from pediatri c patients should be [...] Russo MD CHEMISTRY ORDERABLES Performing Organization Address City/State/ZIP Code Phon e Number [place] [phone] CERNER MILLENNIUM (ABNORMAL) CBC (with Diff) (04/25/2013 2:54 PM EDT) P athologist Signature WBC 5.6 4.0 - 10.0 [...] RDWSD 49.6 (H) 35.0 - CERNER 46.0 [facility] RDWCV 13.9 10.9 - CERNER 14.4 % [facility] MPV 11.3 9.0 - 12.0 CERNER [facility] Specimen Anatomical Collection Method Collection Time Receive d Time (Source) Location / / Volume Laterality Blood specimen 04/25/2013 2:54 PM 013 3:00 (specimen) EDT PM EDT Resulting Agency Comment Spec In Lab [place] Russo MD HEMATOLOGY ORDERABLES Performing Organization Address City/State/ZIP Code Phon e Number [place] [phone] [facility] documented in this encounter Visit Diagnoses Diagnosis SOB (shortness of breath) - Primary Shortness of breath documented in this encounter Care Teams Landscape Horticulture Instructor Relationship Specialty Start Date End Date Giorgio Cardona MD PCP - General 10/04/10 04/10/17 [facility] [place] [address] documented as of this encounter
--- OUTSIDE RECORDS SUMMARY | 2022-10-09 16:17 | XMS_ITS | Encounter Summary ---
:1940 Author Organization [facility] [place] [address] Care Team Providers Name Role Phone Giorgio Cardona MD Primary Care Provider Reason for Visit Reason Comments Skin Lesion one spot on forehead Encounter Details Date Type Department Care Team Description 06/11/2013 Follow-Up Dermatology at [facility], CONV Act inic keratosis Road Giorgio Angeles MD [facility] [place] [address] (Primary Dx) [address] [place] [address] Social History Tobacco Use Types Packs/Day Years Used Date Smoking Tobacco: Never Smokeless Tobacco: Never Alcohol Use Standard Drinks/Week Comments Yes 0 (1 standard drink = 0.6 oz pure alcoho l) RARE Sex Assigned at Date Recorded Not on file documented as of this encounter Progress Notes Jennifer Nicholas LPN - 06/11/2013 9:11 AM EDT DERMATOLOGY CONSULT NOTE Date of service: 06/11/2013 Alfredito Mina : 1940 Provider: Giorgio Angeles MD PROBLEM: Spot on forehead HPI Alfredito Mina is a 73 y.o. year old male. Referred by Dr. Giorgio Cardona for a spot on his forehead. He reports the spot has been present for approximately 2 years, romero at times, tender, no bleeding, changed in size. Some history of blistering sunburns. Wears hats, no sunscreen. PAST MEDICAL HX: See Problem List SOCIAL HX: [place] FAMILY HX: Brother skin cancer, unknown type PATIENT SCREENING QUESTIONS DO YOU HAVE A PACEMAKER OR DEFIRILLATOR?No DO YOU HAVE ARTIFICIAL JOINTS? Right ELISA Less than 2 year old? yes What blood thinner do you take? Do you take antibiotics before procedures?yes ADR: Allergies Allergen Reactions ??? Lactose Other (See Comments) Sneezing MEDS: Current Outpatient Prescriptions Medication Sig Dispense Refill [...] by mouth every morning. 30 tablet 12 ROS General: feeling well Skin: denies other skin complaints EXAM General: NAD, pleasant, cooperative Skin: Focal exam of forehead Significant skin findings: A. 0.2-0.3cm scaly irregular pink papules,mid forehead and left brow ASSESSMENT/PLAN: A. actinic keratosis, I discussed this condition with the patient and recommended treating with Liquid Nitrogen. Patient agrees with plan. Procedure Note: Procedure: Destruction of lesion(s) with cryotherapy. Number: 3 Location: as above Discussed procedure and expectations including risks (including risk of hypopigmentation) and benefits. Verbal consent obtained. Frozen with LN2, 15-30 second thaw time, TWICE. There were no complications; the patient tolerated the procedure well. Post-procedure expectations and wound care were reviewed. Patient instructed to return to clinic for re-evaluation if lesion does not resolve with this treatment; as expected. Follow up as needed, sooner if problems arise I am documenting this encounter acting as the scribe for and in the presence of Dr. Angeles: JENNIFER NICHOLAS LPN I performed the above scribed service and agree with the accuracy of the documentation in this encounter. Giorgio Angeles MD Section of Dermatology [facility] documented in this encounter Plan of Treatment Upcoming Encounters Date Type Specialty Care Team Description 10/11/2022 Office Visit Dermatology Virgilio Mckeon MD [facility] DR CHRISTIANO MARRUFO-DERMAT OLOGY [place], [place] [address] (Wo rk) 10/16/2022 Office Visit Otolaryngology Frank Buchanan MD [facility] OTOLARYNGOLOGY Sarah EPT. [place], [place] [address] (Wo rk) 11/29/2022 Appointment Hematology and Oncology 11/29/2022 Office Visit Radiation Oncology Emerald Leyva APRN [facility] RADIATION ONCOLO GY [place], [place] [address] (Wo rk) documented as of this encounter Visit Diagnoses Diagnosis Actinic keratosis - Primary documented in this encounter Care Teams Manufacturing Technology Professor Relationship Specialty Start Date End Date Giorgio Cardona MD PCP - General 10/04/10 04/10/17 [facility] [place] [address] documented as of this encounter
--- OUTSIDE RECORDS SUMMARY | 2022-10-09 16:17 | XMS_ITS | Encounter Summary ---
:1940 Author Organization [facility] [place] [address] Care Team Providers Name Role Phone Giorgio Cardona MD Primary Care Provider Reason for Visit Reason Comments Radiation Follow-up prostate cancer Encounter Details Date Type Department Care Team Description 11/07/2012 Follow-Up Radiation Oncology at [place], Danna Pugh APRN Prostate cancer [address] (Primary Dx) [address] [place] [address] [place] [id number] (Wo rk) Social History Tobacco Use Types Packs/Day Years Used Date Smoking Tobacco: Never Smokeless Tobacco: Never Alcohol Use Standard Drinks/Week Comments No 0 (1 standard drink = 0.6 oz pure alcoho l) Sex Assigned at Date Recorded Not on file documented as of this encounter Last Filed Vital Signs Vital Sign Reading Time Taken Comments Blood Pressure 122/71 11/07/2012 9:41 AM EST Pulse 70 11/07/2012 9:41 AM EST Temperature 36.3 ??C (97.3 ??F) 11/07/2012 9:41 AM EST Respiratory Rate 18 11/07/2012 9:41 AM EST Oxygen Saturation 99% 11/07/2012 9:41 AM EST Inhaled Oxygen Concentration - - Weight 71.2 kg (157 lb) 11/07/2012 9:41 AM EST Height - - Body Mass Index 24.59 09/18/2012 1:07 PM EST documented in this encounter Progress Notes DianneBecka, [employer] - 11/07/2012 9:47 AM EST Subjective: Patient ID: Alfredito Mina is a 72 y.o. male.who is in radiation oncology clinic today for regular followup. He was treated with external beam radiation therapy for prostate cancer and completed treatment 04/12/2007. He was enrolled in a clinical trial--RTOG 0126 arm 2. He was last seen in radiation oncology 11/29/2011 at which time his PSA was stable. HPI Mr. Mina is a male who [...] were taken and the specimen reported in [facility] pathology under session #[id number] prostate: The right lobe apex, mid, and base negative; the left apex was 3 + 3 in 40% of one core; the left mid was 3 + 4 in 50% of one core; and the left base showed a 3 + 4 in 5% in one of two cores. This information was reviewed at [facility] on October 19, 2006, and the report paralleled that given by the [facility] institution. The [facility] session number was [id number]. The patient was then seen by Dr. [...] 7920 cGy and completed treatment on 04/12/2007. Problem List: 1. Adenocarcinoma of the prostate. [id number], Sofy 4+3, left lobe involved. OLGA (-), PSA of 5.4 1. Radiation therapy detail: Target location: prostate Technique: IMRT Total dose: 7920 cGy Fraction dose: 180 cGy Dates of treatment: 02/11/2007 through 04/12/2007 Total number of fractions: 44 2. 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 hypertension 4. severe mitral insuffiency s/p repair 5. history of iritis 6. Hyperlipidemia 7. GERD 8 Hearing loss and tinnitus L>R 9. Osteoarthritis-severe right knee, hips and shoulder 10 H/O depression 11 S/P multiple inguinal and umbilical hernia repair 12 S/P tonsillectomy 13 Impaired fasting glucose 14 NSCLCA of the right lung. Lung, right lower lobe, lobectomy. 02/09/2010 Tumor Location: Central. Histologic Type: Adenocarcinoma, invasive, with peripheral LIANET features. *(See Note) Tumor Grade: Well differentiated. Tumor Size: 1.1 cm, gross measure. ---01/25/2010: PFT--FVC 2.50 (75%), FEV1= 1.46 (60%) --09/12/2011: Chest CT: Stable post lobectomy appearance with no findings for recurrent or new pulmonary pathology. 15 Pancreatic cyst. 10/24/2010 16. Mild radiation proctitis 17 colonoscopy 08/11/2010 with polyp --tubular adenoma 18 diverticulosis --sigmoid 19 Thyroidectomy 11/30/2011 20 S/P TKR 2011 21 LEFT TVC paralysis post thyroidectomy. Family History: Mother two months ago at age 105--she had asthma, osteoporosis. Father at age 55, smoked too much, heart problems. Social History: [employer]. 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 Single. Five children and sevengrandkids. One daughter with viral respiratory problems. 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 Used to play basketball. No alcohol. Current Outpatient Prescriptions on File Prior to [...] by mouth every morning. 30 tablet 12 Interim History: Mr Mina reports that he is doing well. He was [place] [facility] [place] and had a total thyroidectomy for a very large goiter. He had a substernal goiter extending down to the aortic arch with distal narrowing of the trachea and deviation to the right. 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 He was seen by Dr Ramin Buchanan for this. 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 He is grieving the of his mother who in her sleep about two months ago at age 105. He denies urinary problems at this time. His IPSS score is 7. He is pleased with his overall urinarystatus. International Prostate Symptom Score Total Score__7__ 0 1 2 3 4 5 Not at all Less than one time in five Less than half of the time About half of the time More than half of the time Almost always Incomplete emptying X frequency X (which he attribute to Lasix) intermittency X urgency X Weak stream X Flow resistance X Not at all Every eight hours Every four hours Every three hours Every 2 hours Every hour nocturia X His bowels have been moving regularly one or twice a day. He denies hematochezia, melena, constipation and diarrhea. He does report abdominal discomfort most days which he attributes to his H/O of diverticulitis--he will be seeing Dr Cardona for this later today. He is not sexually active at this time. He reports that his respiratory symptoms are stable. He denies shortness of breath, no dyspnea, + occ cough, no hemoptysis He did have surgery to have a right TKR this summer and reports that he has no pain and that his knee pain is gone. Review of Systems Constitutional: Positive for fatigue. Negative for fever, chills, appetite change and unexpected weight change. Mother two months ago at age 105 Remains active --working every day. HENT: Positive for voice change and postnasal drip. Negative for nosebleeds and neck stiffness. Voice change due to VC injury Eyes: Negative. Respiratory: Positive for cough. Negative for chest tightness, shortness of breath and wheezing. Cough when he drinks milk--white sputum Cardiovascular: Negative for chest pain and leg swelling. Pedal edema at end of day--none in am Gastrointestinal: Negative for nausea, abdominal pain, diarrhea, constipation, blood in stool, abdominal distention, anal bleeding and rectal pain. Recent diverticulitis Using miralax and stool softener for constipation --moving bowels 1-2 x a day --stool soft --on and off discomfort in abdomen. Genitourinary: Negative for dysuria, urgency, frequency, hematuria, decreased urine volume, difficulty urinating and testicular pain. See IPSS Musculoskeletal: Knee pain is gone--doing great since surgery Neurological: Positive for dizziness. Negative for weakness, light-headedness and headaches. Dizzy if get up too quickly Hematological: Negative. Psychiatric/Behavioral: Positive for sleep disturbance. Grieving due to the of his mother two months ago. She was 105 and had lived with patient for years Recent Review Flowsheet Data View Complete Flowsheet Oncology Vitals 11/07/2012 Weight 71.215 kg Temp 97.3 Temp src 1 Pulse 70 Heart Rate Source Right Resp 18 BP 122/71 BP Location Right arm Patient Position Sitting SpO2 99 Pain Level 0 Objective: Physical Exam Vitals reviewed. Constitutional: He is oriented to person, place, and time. Vital signs are normal. He appears well-developed and well-nourished. He does not appear ill. No distress. HENT: Head: Normocephalic and atraumatic. Mouth/Throat: Uvula is midline. Mucous membranes are not pale and not dry. No oropharyngeal exudate,posterior oropharyngeal edema, posterior oropharyngeal erythema or tonsillar abscesses. Eyes: Conjunctivae and EOM are normal. No scleral icterus. [...] He exhibits no edema and no tenderness. Lymphadenopathy: Head (right side): No submental, [...] is not diaphoretic. No erythema. No pallor. Psychiatric: He has a normal mood and affect. His behavior is normal. Judgment and thought content normal. Laboratory Studies: date PSA Testosterone 11/07/2012 1.16 396 11/29/2011 0.81 287 05/03/2011 [...] 24 hour(s)) PSA Component Value Range PSA 1.16 0.00 - 4.00 (ng/mL) Assessment and Plan: Adenocarcinoma of the prostate. Mr Mina is having a stable biochemical response to his prostate cancer treatment with JOSUE. Patient is to return to radiation oncology in one year for repeat PSA, and clinical evaluation. He is to call if he has questions or concerns in the meantime. documented in this encounter Plan of Treatment Upcoming Encounters Date Type Specialty Care Team Description 10/11/2022 Office Visit Dermatology Virgilio Mckeon MD [facility] DR CHRISTIANO HENSNO-DERMAT OLOGY [place], [place] [address] (Wo rk) 10/16/2022 Office Visit Otolaryngology Frank Buchanan MD [facility] OTOLARYNGOLOGY Sarah EPT. [place], [place] [address] (Wo rk) 11/29/2022 Appointment Hematology and Oncology 11/29/2022 Office Visit Radiation Oncology Emerald Leyva, ROSITA [facility] RADIATION ONCOLO [place], [place] [address] (Wo rk) documented as of this encounter Results PSA (11/07/2012 12:29 PM EST) P athologist [...] Organization Address City/State/[place] [address] CERNER MILLENNIUM documented in this encounter Visit Diagnoses Diagnosis Prostate cancer - Primary Malignant neoplasm of prostate documented in this encounter Care Teams Music Therapy Specialist Relationship Specialty Start Date End Date Giorgio Cardona MD PCP - General 10/04/10 04/10/[address] [facility] GENERAL [place] [address] documented as of this encounter
--- OUTSIDE RECORDS SUMMARY | 2022-10-09 16:17 | XMS_ITS | Encounter Summary ---
:1940 Author Organization [facility] [place] [address] Care Team Providers Name Role Phone Giorgio Cardona MD Primary Care Provider Encounter Details Date Type Department Care Team Description 01/06/2013 Hospital Encounter Gastroenterology at [facility] Grant Alcantara MD [facility] [place] [address] [facility] Abundio Khan MD [facility] [place] [address] [place] [address] Christopher Jeffery MD [facility] [place] [address] [phone] Social History Tobacco Use Types Packs/Day Years Used Date Smoking Tobacco: Never Smokeless Tobacco: Never Alcohol Use Standard Drinks/Week Comments Yes 0 (1 standard drink = 0.6 oz pure alcoho l) RARE Sex Assigned at Date Recorded Not on file documented as of this encounter Last Filed Vital Signs Vital Sign Reading Time Taken Comments Blood Pressure 128/67 01/06/2013 4:09 PM EST Pulse 61 01/06/2013 4:09 PM EST Temperature 36.4 ??C (97.5 ??F) 01/06/2013 3:08 PM EST Respiratory Rate 16 01/06/2013 4:09 PM EST Oxygen Saturation 97% 01/06/2013 4:09 PM EST Inhaled Oxygen Concentration - - Weight 68 kg (150 lb) 01/06/2013 3:08 PM EST Height 170.2 cm (5' 7) 01/06/2013 3:08 PM EST Body Mass Index 23.49 01/06/2013 3:08 PM EST documented in this encounter Discharge Instructions Discharge InstructionsRamo Neville RN - 01/06/2013 4:10 PM EST You may have received medication before and/or during your procedure which effects judgement and reaction time. Do not drive, operate machinery, drink alcoholic beverages, or make important decisions for 24 hours. Be careful on stairs, as you may be unsteady on your feet. You may eat a regular diet as tolerated. Do not smoke if you are alone. IV site -- slight redness or tenderness is normal. You may use a warm compress. If tenderness and redness increases or foul drainage occurs please contact your M.D. Please call [phone] before 5 pm with problems, questions or concerns. After 5pm call [phone] and ask to speak with the offset printer decontamination worker. Discharge instructions reviewed with patientwho expresses understanding. documented in this encounter Medications at Time [...] every morning. documented as of this encounter H&P Notes Christopher Jeffery MD - 01/06/2013 3:28 PM EST Gastroenterology and Hepatology Pre-Procedure History and Physical Exam Procedure: Colonoscopy: Indication: Colonoscopy with small polyp in 2009. Sent for repeat colonoscopy due to diverticulitis on CT scan Patient Active Problem List Diagnoses Code ??? [...] Preventative health care V70.0 ??? Diverticulitis 562.11 EXAM: HEENT: Airway examined, oropharynx clear LUNGS: Clear to auscultation HEART: Regular rate and rhythm, normal S1, S2 ABDOMEN: Normal bowel sounds, soft, non tender, non distended, A/P Proceed with the planned endoscopic procedure. Risks and benefits of the procedure explained to the patient. Consent signed. documented in this encounter Miscellaneous Notes Lian - Provider, Scanning - 01/06/2013 9:27 PM EST Juananeous - Provider, Scanning - 01/06/2013 2:37 PM EST documented in this encounter Plan of Treatment Upcoming Encounters Date Type Specialty Care Team Description 10/11/2022 Office Visit Dermatology Virgilio Mckeon MD [facility] ER DR CHRISTIANO HENSON-DERMAT OLOGY [place], [place] [address] (Wo rk) 10/16/2022 Office Visit Otolaryngology Frank Buchanan MD [facility] ER OTOLARYNGOLOGY Sarah EPT. [place], [place] [address] (Wo rk) 11/29/2022 Appointment Hematology and Oncology 11/29/2022 Office Visit Radiation Oncology Emerald Leyva APRN [facility] ER RADIATION ONCOLO GY [place], [place] [address] (Wo rk) documented as of this encounter Procedures Procedure Name Priority Date/Time Associated Diagnosis Comme nts SURGICAL PATHOLOGY Routine 01/06/2013 6:34 Result s for this REPORT PM EST procedure are i n the results section. SPECIMEN TO Routine 01/06/2013 4:05 Results for this PATHOLOGY PM EST procedure are i n the results section. SPECIMEN TO Routine 01/06/2013 4:05 Results for this PATHOLOGY PM EST procedure are i n the results section. COLONOSCOPY, 01/06/2013 3:[address] POLYPECTOMY, REMOVAL PM EST scan LESION BY SNARE (WRVU 4.67) COLONOSCOPY Routine 01/06/2013 3:23 Results for this PM EST procedure are i n the results section. documented in this encounter Results Surgical Pathology Report (01/06/2013 6:34 PM EST) [facility] gist Method Time Signature Surgical CERNER Pathology ? [facility] Report ? Provider: ?? CHRISTOPHER JEFFERY ??Pt. Name: ?? KATLIN SANZ ? Acc #: ?[id number] ?Pt. MRN: ?[id number] ? Col Date: ?? 3 ? /Sex: ?1940,(72 years),Male ? Rec Date: ?? 01/06/2013 ? LOC: ?4T ? SURGICAL PATHOLOGY ? ---Pathologic Diagnosis--- ? CORRECTED REPORT (see Comment) ? Endoscopic biopsies - ? A. Tubular adenomas. ? B. Tubular adenoma. ? CR-PX ? 01/07/13 ? AAS ? 01/07/13 Verified by: ? Linda Green MD ? Pathologist ? (Electronic Si gnature) ? The attending pathologist whose signature appears o n this report has ? reviewed all diagnostic slides and has edited the uyen ss and/or ? microscopic portion of the report in rendering the fi nal pathologic ? diagnosis. ? ---Comment--- ? Correction: The diagnoses of parts A and B have been corrected. ? ---Microscopic Description--- ? Slides reviewed, microscopic description not recorded . ? ---Gross Description--- ? A - Labeled/Fixative: 3-mm and 4-mm sessile carlito yp in cecum, formalin. ? Qty/Size/Weight: ?Four, averaging 0.3 cm. ? Tissue Description: ?? Soft, avendaño tissues. ? Sections/Processing: ??(T1) ? B - Labeled/Fixative: 4-mm sessile hyperplastic-appea ring polyp in ? sigmoid, formalin. ? Qty/Size/Weight: ?Two, 0.2 cm and 0.3 cm in ? greatest dimension. ? Tissue Description: ?? Soft, avendaño tissues. ? Sections/Processing: ??(T1) ??vms/SNS ? ---Clinical Information--- ? Specimen Submitted: ? A - 3 mm and 4 mm sessile polyp in cecum ? [facility] ? Provider: ?? CHRISTOPHER JEFFERY ??Pt. Name: ?? KATLIN SANZ ? Acc #: ?[id number] ?Pt. MRN: ?[id number] ? Col Date: ?? 3 ? /Sex: ?1940,(72 years),Male ? Rec Date: ?? 01/06/2013 ? LOC: ?4T ? SURGICAL PATHOLOGY ? B - 4 mm sessile hyperplastic appearing polyp in sigm oid ? Clinical History/Diagnosis: ? History of polyps Specimen (Source) Anatomical Collection Method Collection Time Re ceived Time Location / / Volume Laterality 01/06/2013 6:34 PM EST Christopher Jeffery MD PATHOLOGY/CYTOLOGY ORDERABLE S Performing Organization Address City/State/ZIP Code Phon e Number [place] [id number] [facility] Specimen to Pathology (surgical or derm) (01/06/2013 4:05 PM EST) Specimen Anatomical Collection Method Collection Time Receive d Time (Source) Location / / Volume Laterality AP Specimen 01/06/2013 4:05 PM 3 4:05 EST PM EST Narrative CERNER MILLENNIUM - 01/06/2013 4:[address] Specimen requisition ordered. ??Separate Pathology report to follow Christopher Jeffery MD PATHOLOGY/CYTOLOGY ORDERABLE S Performing Organization Address [facility]/[place] [address] CEREVA WOODIUM Specimen to Pathology (surgical or derm) (01/06/2013 4:05 PM EST) Specimen Anatomical Collection Method Collection Time Receive d Time (Source) Location / / Volume Laterality AP Specimen 01/06/2013 4:05 PM 3 4:05 EST PM EST Narrative CERNER MILLENNIUM - 01/06/2013 4:[address] Specimen requisition ordered. ??Separate Pathology report to follow Christopher Jeffery MD PATHOLOGY/CYTOLOGY ORDERABLE S Performing Organization Address [facility]/[place] [address] CERNER MILLENNIUM COLONOSCOPY (01/06/2013 3:23 PM EST) [facility] Method Time Signature COLONOSCOPY [facility] Endoscopy Patient Name: Katlin Mina ? Procedure Date: 01/06/2013 3:23 PM ? N: [id number] ? Date of : 1940 ? Age: 72 ? Order #: [id number] ? Procedure: ? Colonoscopy Indications: ? High risk colon cancer surveillance : ? Personal history of colonic p olyps Providers: ? Christopher Jeffery MD, Kinza ? Jailyn, RN, Kameron Cardoza MD: ?Giorgio Cardona MD Medicines: ? Midazolam 3 mg IV, Fentanyl 150 ? micrograms IV Complications: ? No immediate complications. Procedure: ? Pre-Anesthesia Assessment: ? - Prior to the procedure, a H istory ? and Physical was performed, a nd ? patient medications, allergie s and ? sensitivities were reviewed. The ? patient's tolerance of previo us ? anesthesia was reviewed. ? - The risks and benefits of t he ? procedure and the sedation op tions ? and risks were discussed with the ? patient. All questions were a nswered ? and informed consent was obta ined. ? The procedure, indications, b enefits, ? risks and alternatives were e xplained ? to the patient. Specifically ? discussed were potential ? complications including, but not ? limited to, bleeding, perfora tion, ? infection, missing a cancer, and ? adverse medication reactions. The ? patient was placed in the lef t ? lateral decubitus position, a nd a ? digital rectal exam was perfo rmed. ? The Colonoscope was inserted in the ? anus and under direct visuali zation, ? advanced to the terminal ileu m. ? Careful inspection was made a s the ? colonoscope was withdrawn. Th e ? colonoscopy was performed wit hout ? difficulty. The patient liv ated the ? procedure well. The quality o f the ? bowel preparation was good. ? Findings: ? The perianal and digital rectal examinations were ? normal. The terminal ileum appeared normal. A sessile ? polyp was found in the cecum. The polyp was 4 mm in ? size. The polyp was removed with a hot snare. ? Resection and retrieval were complete. A sessile ? polyp was found in the cecum. The polyp was 3 mm in ? size. The polyp was removed with a cold biopsy ? forceps. Resection and retrieval were complete. A ? sessile polyp was found in the sigmoid colon. The ? polyp was 4 mm in size. The polyp was removed with a ? cold biopsy forceps. Resection and retrieval were ? complete. Many diverticula were found in the sigmoid ? colon. ? Impression: ?- The examined portion of the ileu m ? was normal. ? - One 4 mm polyp in the cecum . ? Resected and retrieved. ? - One 3 mm polyp in the cecum . ? Resected and retrieved. ? - One 4 mm polyp in the sigmo id ? colon. Resected and retrieved . ? - Diverticulosis in the sigmo id colon. Recommendation: ?- Await pathology results. ? Christopher Jeffery MD 01/06/2013 4:05 PM Number of Addenda: 0 Note Initiated On: 01/06/2013 3:23 PM Specimen (Source) Anatomical Collection Method Collection Time Re ceived Time Location / / Volume Laterality 01/06/2013 3:23 PM EST Giorgio Cardona MD GENERAL SURGICAL ORDERABLES Performing Organization Address City/State/ZIP Code Phon e Number [employer] documented in this encounter Visit Diagnoses Not on filedocumented in this encounter Active and Recently Administered Medications Times are shown in EST. PRN Medication Order 01/04/2013 01/05/2013 01/06/2013 fentaNYL 50mcg/mL injection (CANCELED) 1534 (Given - Provider: Kinza Glaser RN - Comment: start of sedation)1537 (Given - Provider: Kinza Glaser RN - Comment: meds for sedation)1541 (Given - Provider: Kinza Glaser RN - Comment: meds for sedation) ONCE PRN, Starting 01/06/13 at 1534, Until 01/06/13 at 1937, Pain, Intra- Operative (Intra-Procedure), Routine midazolam (VERSED) injection (CANCELED) 1534 (Given - Provider: Kinza Glaser RN - Comment: start of sedation)1537 (Given - Provider: Kinza Glaser RN - Comment: meds for sedation)1541 (Given - Provider: Kinza Glaser RN - Comment: meds for sedation) ONCE PRN, Starting 01/06/13 at 1534, Until Sun01/06/13 at 1937, Sleep, Intra- Operative (Intra-Procedure), Routine documented in this encounter Care Teams Community Engagement Leader Relationship Specialty Start Date End Date Giorgio Cardona MD PCP - General 10/04/10 04/10/17 [facility] [address] [place] [address] documented as of this encounter
--- OUTSIDE RECORDS SUMMARY | 2022-10-09 16:17 | XMS_ITS | Encounter Summary ---
:1940 Author Organization [facility] [place] [address] Care Team Providers Name Role Phone Giorgio Cardona MD Primary Care Provider Encounter Details Date Type Department Care Team Description 03/28/2013 Hospital Encounter Laboratory Giorgio Cardona MD Prostate cancer [facility] [place], [place] GENERAL INTERNAL [id number] MEDICINE [phone] [place], [place] [address] Social History Tobacco Use Types [...] [facility] DR CHRISTIANO HENSON-DERMAT OLOGY [place], [place] [address] (Wo rk) 10/16/2022 Office Visit Otolaryngology Frank Buchanan MD [facility] OTOLARYNGOLOGY D EPT. [place], [place] [address] (Wo rk) 11/29/2022 Appointment Hematology and Oncology 11/29/2022 Office Visit Radiation Oncology Emerald Leyva APRN [facility] RADIATION ONCCESAR GY [place], [place] [address] (Wo rk) documented as of this encounter Procedures Procedure Name Priority Date/Time Associated Diagnosis Comme nts PSA Routine 03/28/2013 12:26 PM Prostate cancer Resul ts for this (ULTRASENSITIVE) EDT procedure a re in the results section. documented in this encounter Results PSA (03/28/2013 12:26 PM EDT) P athologist [...] Address City/State/ZIP [place] [address] [facility] documented in this encounter Visit Diagnoses Diagnosis Prostate cancer Malignant neoplasm of prostate documented in this encounter Care Teams Payroll And Benefits Manager Relationship Specialty Start Date End Date Giorgio Cardona MD PCP - General 10/04/10 04/10/17 [facility] [place] [address] documented as of this encounter
--- OUTSIDE RECORDS SUMMARY | 2022-10-09 16:17 | XMS_ITS | Encounter Summary ---
:1940 Author Organization [facility] Address [facility] [place] [address] Care Team Providers Name Role Phone Arabella Rob MD Primary Care Provider Reason for Referral Surgical (Routine) - Closed Specialty Diagnoses / Procedures Referred By Contact Refer red To Contact General Surgery Diagnoses recurrent left inguinal hernia, hx lung ca Lois Jacome MD Trus, Dulce Velez MD [facility] CARDIOTHORACIC SURGE GENERAL SURGERY [place], [place] [id number] [place] [phone] Fax: Referral ID Status Reason Start Date Expiration Date Visits V isits Requested Authorized [id number] Closed Specialty 01/07/2013 07/06/2013 1 1 Service Requested Encounter Details Date Type Department Care Team Description 01/07/2013 Follow-Up Hematology and Lois Jacome Lung can cer (Primary Oncology at [facility] MD Dx) [place] [address] CARDIOTHORACIC [phone] SURGERY [place] [id number] (Wo rk) Social History Tobacco Use Types Packs/Day Years Used Date Smoking Tobacco: Never Smokeless Tobacco: Never Alcohol Use Standard Drinks/Week Comments Yes 0 (1 standard drink = 0.6 oz pure alcoho l) RARE Sex Assigned at Date Recorded Not on file documented as of this encounter Last Filed Vital Signs Vital Sign Reading Time Taken Comments Blood Pressure 107/58 01/07/2013 3:46 PM EST Pulse 57 01/07/2013 3:46 PM EST Temperature 36.5 ??C (97.7 ??F) 01/07/2013 3:46 PM EST Respiratory Rate 16 01/07/2013 3:46 PM EST Oxygen Saturation 99% 01/07/2013 3:46 PM EST room ai r Inhaled Oxygen Concentration - - Weight 71.1 kg (156 lb 12 oz) 01/07/2013 3:46 PM EST Height 170.2 cm (5' 7.01) 01/07/2013 3:46 PM EST Body Mass Index 24.54 01/07/2013 3:46 PM EST documented in this encounter Progress Notes Lois Jacome MD - 01/07/2013 3:58 PM EST Thoracic Surgery Attending Established Patient Visit Lois Jacome MD [place] [address] FAX: Consultation: 01/07/13 PCP: ARABELLA ROB MD, MD Referring Physician: Patient is a 71 y.o. male with HTN, GERD and h/o [...] nodes positive for malignancy. Post operative Staging: [id number] Interval history, He is hoarse since his thyroid. He does have coughing when his throat is cleared. Kept his weight stable by watching his diet. He had his right knee replaced last year. 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 He will leave for [place] in a few weeks. He has developed arecurrent left inguinal hernia. He hopes to consult with a general surgeon. Past Medical History Diagnosis Date ??? Difficulty [...] INGUINAL, RECURRENT performed by NOREEN BOWIE at [facility] MAIN OR ??? Thyroidectomy=substernal, transcerv 11/30/2011 THYROIDECTOMY, INCL. SUBSTERNAL, CERVICAL APPROACH performed by FRANK MAC at [facility] MAIN OR ??? Somatosensory test, any/all per. nerves, trunk or head 11/30/2011 FACIAL NERVE MONITORING, SETUP performed by FRANK MAC at [facility] MAIN OR ??? Upper gi endoscopy, exam 01/29/2012 UPPER GI ENDOSCOPY performed by VICKI SON at [facility] ENDOSCOPY ??? Lung cancer surgery Partial removal of R lung ??? Total knee arthroplasty 06/19/2012 @TOTAL KNEE ARTHROPLASTY performed by ADAM CARRERO at [facility] MAIN OR Review of Systems: As above, otherwise negative. Family History: No family history on file. Social History: History Social History ??? Marital [...] on file Allergies: Allergies Allergen Reactions ??? Cis Free Text Allergy Other (See Comments) Breads sneezing ??? Lactose Other (See Comments) Sneezing Medications: Outpatient Prescriptions Marked as Taking for the 01/07/13 encounter (Follow-Up) with Lois Jacome MD Medication Sig Dispense Refill ??? polyethylene glycol [...] every morning. 30 tablet 12 Physical Exam: Blood pressure 107/58, pulse 57, temperature 36.5 ??C (97.7 ??F), resp. rate 16, height 170.2 cm (5'7.01), weight 71.1 kg (156 lb 12 oz), SpO2 99.00%. General Appearance: Alert, cooperative, no distress, appears stated age Neck: Supple, symmetrical, trachea midline, no adenopathy; thyroid: enlarged, not tender Lungs: Clear to auscultation bilaterally, respirations unlabored, no wheezes, crackles or rhonchi. Heart: Regular rate and rhythm, S1 and S2 normal Abdomen: Soft, non-tender, non-distended, no masses, no organomegaly Extremities: Extremities normal, atraumatic, no cyanosis or edema Neurologic: Normal Wound/Incision: Chest wounds well healed without signs of infection Diagnostics: Chest CT today shows: Lungs are stable. No evidence of disease recurrence, no new nodules, no adenopathy. Post thyroid resection. No new effusions, Stable left adrenal adenoma Assessment: Mr. Mina is a 72 y.o. male s/p right VATS lower lobectomy for stage T1aN0 adenocarcinoma who continues to do well after surgery without signs of recurrence. He feels well other than his knee pain. He is very active and busy at work despite the pain. He is being followed closely for his colon polyps. In short, most of his other health issues are of more concern than his lung cancer follow up. As he is 2 years from the surgery, the risk of recurrence or understaging of his lung cancer has decreased.We can now follow him with yearly CT scans. However, he will always be at risk for lung cancer primary or recurrence, so he should follow up with us yearly or if new symptoms of dyspnea, chest pain occur. Plan of Management: We discussed his CT scan today and the plan for future follow up including another CT scan in 12 months for further cancer surveillance. Consultation with Dr. Osborne for a hernia Time for consultation: More than 15 minutes of this 25 minute visit were spent in counseling and coordination of care. documented in this encounter Plan of Treatment Upcoming Encounters Date Type Specialty Care Team Description 10/11/2022 Office Visit Dermatology Virgilio Mckeon MD [facility] DR CHRISTIANO HENSON-DERMAT OLOGY [place], [place] [address] ( sriram) 10/16/2022 Office Visit Otolaryngology Frank Buchanan MD [facility] OTOLARYNGOLOGY Sarah [address]. [place], [place] [address] ( sriram) 11/29/2022 Appointment Hematology and Oncology 11/29/2022 Office Visit Radiation Oncology Emerald Leyva APRN [facility] RADIATION ONCCESAR [place], [place] [address] (Wo rk) Scheduled Referrals Name Type Priority Associated Diagnoses Order S chedule Referral to Outpatient Referral Routine Lung cancer Ordered: General Surgery 01/07/2013 documented as of this encounter Visit Diagnoses Diagnosis Lung cancer - Primary Malignant neoplasm of bronchus and lung, unspecified site documented in this encounter Care Teams Verify Rep Relationship Specialty Start Date End Date Arabella Rob MD PCP - General 10/04/10 04/10/17 [facility] GENERAL INTER[place] [address] documented as of this encounter
--- OUTSIDE RECORDS SUMMARY | 2022-10-09 16:17 | XMS_ITS | Encounter Summary ---
:1940 Author Organization [facility] [place] [address] Care Team Providers Name Role Phone Giorgio Cardona MD Primary Care Provider Encounter Details Date Type Department Care Team Description 01/06/2013 Surgery Gastroenterology at [facility] Christopher Jeffery COLONOSCOPY, [facility] Sarah Funes MD [place], [place] [address] [facility] LESION BY SNARE ([facility] [phone] DR Umaña) GASTROENTEROLOGY DEPT. [place], [place] [address] Social History Tobacco Use Types [...] occurs please contact your M.D. Please call [phone] before 5 pm with problems, questions or concerns. After 5pm call [phone] and ask to speak with the dye machine tender gas distribution plant operator. Discharge instructions reviewed with patientwho expresses understanding. [...] signed. documented in this encounter Miscellaneous Notes Miscellaneous - Provider, Scanning - 01/06/2013 9:27 PM EST Miscellaneous - Provider, Scanning - 01/06/2013 2:37 PM EST documented in this encounter Plan of Treatment Upcoming Encounters Date Type Specialty Care Team Description 10/11/2022 Office Visit Dermatology Virgilio Mckeon MD [facility] DR CHRISTIANO HENSON-DERMAT OLOGY [place], [place] [address] (Wo rk) 10/16/2022 Office Visit Otolaryngology Frank Buchanan MD [facility] ER OTOLARYNGOLOGY Sarah EPT. [place], [place] [address] (Wo rk) 11/29/2022 Appointment Hematology and Oncology 11/29/2022 Office Visit Radiation Oncology Emerald Leyva APRN [facility] ER RADIATION ONCOLO GY [place], [place] [address] (Wo rk) documented as of [...] Surgical Pathology Report (01/06/2013 6:34 PM EST) [facility] gist Method Time Signature Surgical CERNER Pathology ? [facility] Report ? Provider: ?? CHRISTOPHER JEFFERY ??Pt. Name: ?? KATLIN SANZ ? Acc #: ?[id number] ?Pt. MRN: ?[id number] ? Col Date: ?? 3 ? /Sex: [...] 4 mm sessile polyp in cecum ? [facility] ? Provider: ?? CHRISTOPHER JEFFERY ??Pt. Name: ?? KATLIN SANZ ? Acc #: ?[id number] ?Pt. MRN: ?[id number] ? Col Date: ?? 3 ? /Sex: [...] Performing Organization Address City/State/[place] [address] CERNER MILLENNIUM Specimen to Pathology (surgical or derm) (01/06/2013 4:05 PM EST) Specimen Anatomical Collection Method Collection Time Receive d Time (Source) Location / / Volume Laterality AP Specimen 01/06/2013 4:05 PM 3 4:05 EST PM EST Narrative CERNER MILLENNIUM - 01/06/2013 4:[address] Specimen requisition ordered. ??Separate Pathology report to follow Christopher Jeffery MD PATHOLOGY/CYTOLOGY ORDERABLE S Performing Organization Address City/[facility] [place] [address] MARIAMA MAST Specimen to Pathology (surgical or derm) (01/06/2013 4:05 PM EST) Specimen Anatomical Collection Method Collection Time Receive d Time (Source) Location / / Volume Laterality AP Specimen 01/06/2013 4:05 PM 3 4:05 EST PM EST Narrative MARIAMA DAMONENNIUM - 01/06/2013 4:[address] Specimen requisition ordered. ??Separate Pathology report to follow Christopher Jeffery MD PATHOLOGY/CYTOLOGY ORDERABLE S Performing Organization Address City/[facility]/ZIP Code Phon e Number [address] CEREVA WOODIUM COLONOSCOPY (01/06/2013 3:23 PM EST) [facility] Method Time Signature COLONOSCOPY [facility] PROVATION Endoscopy Patient Name: Katlin Mina ? Procedure Date: 01/06/2013 3:23 PM ? N: [id number] ? Date of : 1940 ? Age: 72 ? Order #: [id number] ? Procedure: ? Colonoscopy Indications: ? High risk colon cancer surveillance : ? Personal history of colonic p olyps Providers: ? Christopher Jeffery MD, Kinza ? Jailyn, RN, Sharita Phipps, Kameron Mendiola MD: ?Giorgio Cardona MD Medicines: ? Midazolam [...] MAR Action Action Date Dose Rate Site fentaNYL 50mcg/mL injection Given 01/06/2013 3:41 PM EST 50 mcg Right Arm ONCE PRN, Starting on 01/06/13 at 1534, Until 01/06/13 at 1937, Pain, Intra-Operative (Intra-Procedure), Routine Given 01/06/2013 3:37 PM EST 50 mcg Right Arm Given 01/06/2013 3:34 PM EST 50 mcg Right Arm midazolam (VERSED) injection Given 01/06/2013 3:41 PM EST 1 mg Right Arm ONCE PRN, Starting on Sun01/06/13 at 1534, Until Sun01/06/13 at 1937, Sleep, Intra-Operative (Intra-Procedure), Routine Given 01/06/2013 3:37 PM EST 1 mg Right Arm Given 01/06/2013 3:34 PM EST 1 mg Right Arm documented in this encounter Active and Recently Administered Medications Times are shown in EST. PRN Medication Order 01/04/2013 01/05/2013 01/06/2013 fentaNYL 50mcg/mL injection (CANCELED) 1534 (Given - Provider: Kinza Glaser RN - Comment: start of sedation)1537 (Given - Provider: Kinza Glaser RN - Comment: meds for sedation)1541 (Given - Provider: Kinza Glaser RN - Comment: meds for sedation) ONCE PRN, Starting Sun01/06/13 at 1534, Until Sun01/06/13 at 1937, Pain, Intra- Operative (Intra-Procedure), Routine midazolam (VERSED) injection (CANCELED) 1534 (Given - Provider: Kinza Glaser RN - Comment: start of sedation)1537 (Given - Provider: Kinza Glaser RN - Comment: meds for sedation)1541 (Given - Provider: Kinza Glaser RN - Comment: meds for sedation) ONCE PRN, Starting Sun01/06/13 at 1534, Until Sun01/06/13 at 1937, Sleep, Intra- Operative (Intra-Procedure), Routine documented in this encounter Care Teams Drier Operator Helper Relationship Specialty Start Date End Date Giorgio Cardona MD PCP - General 10/04/10 04/10/17 [facility] [place] [address] documented as of this encounter
--- OUTSIDE RECORDS SUMMARY | 2022-10-09 16:17 | XMS_ITS | Encounter Summary ---
:1940 Author Organization [facility] Address [address] [place] [address] Care Team Providers Name Role Phone Giorgio Cardona MD Primary Care Provider Encounter Details Date Type Department Care Team Description 04/25/2013 Hospital Encounter XRay at [facility] SOB (shortness [address] breath) [place] [address] Social History Tobacco Use Types Packs/Day Years Used Date Smoking Tobacco: Never Smokeless Tobacco: Never Alcohol Use Standard Drinks/Week Comments Yes 0 (1 standard drink = 0.6 oz pure alcoho l) RARE Sex Assigned at Date Recorded Not on file documented as of this encounter Medications at Time of Discharge Medication Sig Dispensed Refills Start Date End Date azithromycin Take 1 tablet by mouth 6 tablet 0 04/25/2013 04/26/2013 (ZITHROMAX) 250 mg See Admin Instructions tablet for 5 days. 2 tabs on day 1 and 1 tab on days 2-5 polyethylene glycol Take 17 g by mouth 255 g 0 10/25/20 12 09/29/2013 (MIRALAX) 17 gram/dose daily. powder atenolol (TENORMIN) 50 Take 0.5 tablets by 45 tablet 3 10/06/201211/01/2013 mg tablet mouth daily. furosemide (LASIX) 20 Take 1 tablet by mouth 30 tablet 0 10/11/2018 mg tablet daily. terazosin (HYTRIN) 2 mg Take 1 capsule by 0 07/0910/11/2018 capsule mouth nightly. senna-docusate Take 1-4 tablets by 0 06/22/2012 1 (PERICOLACE) 8.6-50 mg mouth 2 times daily. per tablet omeprazole (PRILOSEC) Take 10 mg by mouth 2 0 04/09/2014 10 mg capsule times daily. levothyroxine Take 1 tablet by mouth 30 tablet 12 12/29/2011 10/11/2018 (SYNTHROID) 125 mcg every morning. tablet documented as of this encounter Plan of Treatment Upcoming Encounters Date Type Specialty Care Team Description 10/11/2022 Office Visit Dermatology Virgilio Mckeon MD [facility] DR CHRISTIANO HENSON-DERMAT OLOGY [place], [place] [address] (Wo rk) 10/16/2022 Office Visit Otolaryngology Frank Buchanan MD [facility] OTOLARYNGOLOGY D EPT. [place], [place] [address] (Wo rk) 11/29/2022 Appointment Hematology and Oncology 11/29/2022 Office Visit Radiation Oncology Emerald Leyva APRN [facility] RADIATION ONCOLO GY [place], [place] [address] (Wo rk) documented as of this encounter Procedures Procedure Name Priority Date/Time Associated Diagnosis Comme nts XR CHEST PA AND STAT 04/25/2013 2:50 PM Shortness of breath Results for this LATERAL EDT procedure are i n the results section. documented in this encounter Results XR chest routine PA & lateral (04/25/2013 2:50 PM EDT) Anatomical Region Laterality Modality Chest N/A Radiographic Imaging Specimen (Source) Anatomical Collection Method Collection Time Re ceived Time Location / / Volume Laterality 04/25/2013 2:50 PM EDT Narrative 04/25/2013 2:54 PM EDT Examination CHEST ROUTINE PA+LAT Clinical History SOB, new onset Comparison 05/20/2012. Technique PA and lateral views of the chest. Findings Linear scarring versus atelectasis at th e lung bases appears unchanged. ??The lungs otherwise appear clear. ??No poon e in the cardiomediastinal silhouette, sharon, and pulmonary vasculature. ??As be fore, mitral prosthesis and intact sternotomy wires are present. ??No pleur al effusion or pneumothorax is identified. ??No significant interval os seous findings are noted. Impression No acute cardiopulmonary pathology ident ified. ??No significant change from 05/20/2012. Procedure Note Eliz Valderrama MD - 04/25/2013Formatt ing of this note might be different from the original. Examination CHEST ROUTINE PA+LAT Clinical History SOB, new onset Comparison 05/20/2012. Technique PA and lateral views of the chest. Findings Linear scarring versus atelectasis at th e lung bases appears unchanged. The lungs otherwise appear clear. No change in the cardiomediastinal silhouette, sharon, and pulmonary vasculature. As befo re, mitral prosthesis and intact sternotomy wires are present. No pleural effusion or pneumothorax is identified. No significant interval osse ous findings are noted. Impression No acute cardiopulmonary pathology ident ified. No significant change from 05/20/2012. Salinas Russo MD IMG DX ORDERABLES documented in this encounter Visit Diagnoses Diagnosis SOB (shortness of breath) Shortness of breath documented in this encounter Care Teams Cosmetician Apprentice Relationship Specialty Start Date End Date Giorgio Cardona MD PCP - General 10/04/10 04/10/17 [facility] GENERAL [place] [address] documented as of this encounter
--- OUTSIDE RECORDS SUMMARY | 2022-10-09 16:17 | XMS_ITS | Encounter Summary ---
:1940 [place] [address] Care Team Providers Name Role Phone Giorgio Cardona MD Primary Care Provider Reason for Visit Reason Onset Date Comments Medication Refill 10/07/2012 Encounter Details Date Type Department Care Team Description 10/07/2012 Refill Internal Medicine at [facility] Giorgio Cardona MD [facility] [place] [address] GENERAL INTERNAL MEDICINE [phone] [place], [place] [address] (Wo rk) Social History Tobacco Use Types Packs/Day Years Used Date Smoking Tobacco: Never Smokeless Tobacco: Never Alcohol Use Standard Drinks/Week Comments No 0 (1 standard drink = 0.6 oz pure alcoho l) Sex Assigned at Date Recorded Not on file documented as of this encounter Miscellaneous Notes Telephone Encounter - Oneida Bridges RN - 10/07/2012 10:00 AM EST Pt c/o hard stools, pt instructed to take Miralax 1 capful nightly. Rx prepared for faxing to pharmacy documented in this encounter Plan of Treatment Upcoming Encounters Date Type Specialty Care Team Description 10/11/2022 Office Visit Dermatology Virgilio Mckeon MD [facility] ER DR [address]-DERMAT OLOGY [place], [place] [address] (Wo rk) 10/16/2022 Office Visit Otolaryngology Frank Buchanan MD [facility] OTOLARYNGOLOGY Sarah EPT. [place], [place] [address] (Wo rk) 11/29/2022 Appointment Hematology and Oncology 11/29/2022 Office Visit Radiation Oncology Emerald Leyva APRN [facility] RADIATION ONCOLO GY [place], [place] [address] (Wo rk) documented as of this encounter Visit Diagnoses Diagnosis Constipation Unspecified constipation documented in this encounter Care Teams Electric Track Switch Maintainer Relationship Specialty Start Date End Date Giorgio Cardona MD PCP - General 10/04/10 04/10/17 [facility] GENER[place] [address] documented as of this encounter
--- OUTSIDE RECORDS SUMMARY | 2022-10-09 16:17 | XMS_ITS | Encounter Summary ---
:1940 Author Organization [facility] [place] [address] Care Team Providers Name Role Phone Giorgio Cardona MD Primary Care Provider Encounter Details Date Type Department Care Team Description 09/29/2013 Hospital Encounter Laboratory Giorgio Cardona, Pancreatic cyst; [facility] Dyslipidemia; [facility] Impaired fasting glucose; [facility] Hypertension; [phone] GENERAL INTERNAL Vitamin D deficiency [phone] [place], [place] [address] Social History Tobacco Use Types [...] [facility] DR CHRISTIANO HENSON-DERMAT OLOGY [place], [place] [address] (Wo rk) 10/16/2022 Office Visit Otolaryngology Frank Buchanan MD [facility] OTOLARYNGOLOGY D EPT. [place], [place] [address] (Wo rk) 11/29/2022 Appointment Hematology and Oncology 11/29/2022 Office Visit Radiation Oncology Emerald Leyva APRN [facility] RADIATION ONCOLO GY [place], [place] [address] (Wo rk) documented as of this encounter Procedures Procedure Name Priority Date/Time Associated Diagnosis Comme nts CMP W/FASTING Routine 09/29/2013 9:35 AM Dyslipidemia Results for this GLUCOSE EST procedure are i n the results section. DIFFERENTIAL, Routine 09/29/2013 9:35 AM Results for this AUTOMATED EST procedure are i n the results section. VITAMIN D, Routine 09/29/2013 9:35 AM Vitamin D deficiency R esults for this 25-HYDROXY EST procedure are i n the results section. CBC (WITH DIFF) Routine 09/29/2013 9:35 AM Pancreatic cyst Res ults for this EST procedure are i n the results section. TSH Routine 09/29/2013 9:35 AM Hypertension Results f or this EST procedure are i n the results section. T4, FREE Routine 09/29/2013 9:35 AM Hypertension Results f or this EST procedure are i n the results section. HEMOGLOBIN A1C Routine 09/29/2013 9:35 AM Impaired fasting Res ults for this EST glucose procedure are i n the results section. FOLATE, SERUM Routine 09/29/2013 9:35 AM Hypertension Results for this EST procedure are i n the results section. VITAMIN B12 Routine 09/29/2013 9:35 AM Hypertension Results f or this EST procedure are i n the results section. LIPID PANEL (REFLEX Routine 09/29/2013 9:35 AM Hypertension Re sults for this DIRECT LDL) EST procedure are i n the results section. documented in this encounter Results (ABNORMAL) Differential, Automated (09/29/2013 9:35 AM EST) [facility] gist Method Time Signature Neutrophils % 65.3 34.0 - CERNER 71.0 % MILLENNIUM Neutr Abs (ANC) 3.71 1.50 - CERNER 6.30 MILLENNIUM x10(3)/mc L Lymphocytes % 19.0 19.0 - CERNER 53.0 % MILLENNIUM Lymphocytes Abs 1.1 1.0 - 3.6 CERNER x10(3)/mc MILLENNIUM L Monocytes % 13.4 (H) 4.0 - CERNER 13.0 % MILLENNIUM Monocyte Abs 0.8 0.2 - 1.0 CERNER x10(3)/mc MILLENNIUM L Eosinophils % 1.9 0.0 - 7.0 CERNER % MILLENNIUM Eosinophils Abs 0.1 0.0 - 0.5 CERNER x10(3)/mc MILLENNIUM L Basophils % 0.4 0.0 - 2.0 CERNER % MILLENNIUM Basophils Abs 0.0 0.0 - 0.2 CERNER x10(3)/mc MILLENNIUM L Immature Gran % 0.00 0.00 - CERNER [...] AM 013 9:47 (specimen) EST AM EST Giorgio Cardona MD HEMATOLOGY ORDERABLES Performing Organization Address City/[facility]/ZIP Code Phon e Number [address] CERNER MILLENNIUM T4, free (09/29/2013 9:35 AM EST) athologist Signature Free T4 1.58 0.90 - 1.60 CERNER ng/dL MILLENNIUM Specimen Anatomical Collection Method Collection Time Receive d Time (Source) Location / / Volume Laterality Blood specimen 09/29/2013 9:35 AM 013 9:47 (specimen) EST AM EST Resulting Agency Comment Spec In Lab Giorgio Cardona MD CHEMISTRY ORDERABLES Performing Organization Address City/[facility]/ZIP Code Phon e Number [address] CERNER MILLENNIUM (ABNORMAL) TSH (09/29/2013 9:35 AM EST) athologist Signature TSH 5.00 (H) 0.27 - 4.20 CERNER mcIU/mL MILLENNIUM Specimen Anatomical Collection Method Collection Time Receive d Time (Source) Location / / Volume Laterality Blood specimen 09/29/2013 9:35 AM 013 9:47 (specimen) EST AM EST Resulting Agency Comment Spec In Lab Giorgio Cardona MD CHEMISTRY ORDERABLES Performing Organization Address City/[facility]/ZIP Code Phon e Number [address] CERNER MILLENNIUM Vitamin B12 (09/29/2013 9:35 AM EST) athologist Signature Vitamin B-12 460 207 - 974 CERNER pg/mL MILLENNIUM Specimen Anatomical Collection Method Collection Time Receive d Time (Source) Location / / Volume Laterality Blood specimen 09/29/2013 9:35 AM 013 9:47 (specimen) EST AM EST Resulting Agency Comment Spec In Lab Giorgio Cardona MD CHEMISTRY ORDERABLES Performing Organization Address City/[facility]/[place] [address] CERNER MILLENNIUM Folate, serum (09/29/2013 9:35 AM EST) P athologist Signature Folate Lvl 17.5 4.6 - 34.8 CERNER ng/mL [facility] Specimen Anatomical Collection Method Collection Time Receive d Time (Source) Location / / Volume Laterality Blood specimen 09/29/2013 9:35 AM 013 9:47 (specimen) EST AM EST Resulting Agency Comment Spec In Lab Giorgio Cardona MD CHEMISTRY ORDERABLES Performing Organization Address City/[facility]/[place] [address] CERNER MILLENNIUM VIT D Total Evaluation (09/29/2013 9:35 AM EST) P athologist Signature 25-OH Vit D 39 30 - 100 CERNER Total ng/mL [facility] Comment: Deficient <10 ng/mL Insufficient 10 to [...] Organization Address City/State/ZIP Code Phon e Number [place] [id number] MARIAMA WOODIUM (ABNORMAL) Lipid panel (fasting) (09/29/2013 9:35 AM EST) P athologist Signature Chol, Total 209 (H) <=199 CERNER mg/dL MILLENNIUM Comment: Recommendations of the NCEP Adult Treatm ent Panel for the following risk cutoff thresholds for the [place] popul[place] n: Desirable: <200 mg/dL Borderline High: 200-239 mg/dL High: > or = 240 mg/dL Triglycerides 56 <=149 mg/dL CERNER MILLENN IUM Comment: Reference Range: Normal triglycerides: ??<150 mg/dL Borderline high: ??150-199 mg/dL High: ??200-499 mg/dL Very high: ??>fy=787 mg/dL KENDRA 2001; 285(19):1045-0369 HDL 76 >=40 mg/dL CEREVA MILLKATERINEIUM Comment: Reference range: ??Low HDL: ?? < 40 mg/dL ??Normal: ?40-60 mg/dL ??Desirable: > 60 mg/dL KENDRA 2001; 285(19):3617-2875 LDL Cholesterol 122 (H) <=99 mg/dL MARIAMA NGUYEN NITAISHA Comment: Reference range: ?? Optimal: ?<100 mg/dL ?? Near Optimal/Above Optimal: ?? 100-1 29 mg/dL ?? Borderline high: ?130-159 mg/dL ?? High: ? 160-189 mg/dL ?? Very high: ?>ay=764 mg/dL KENDRA 2001: 285(19):7408-3410 Chol/HDL Ratio 2.8 ratio CERNER MILLENNI UM Comment: A Cholesterol to HDL ratio below 4:1 is desirable. ??Studies suggest that increased CAD risk occurs at ratios abov e 5 for females and above 6 for men. ? [place] Heart Association ??(htt p://www.americanheart.org) ? Anay Int Med, 1994; 121:641 ? AM J Med, 1998; 105(1A):48S Specimen Anatomical Collection Method Collection Time Receive d Time (Source) Location / / Volume Laterality Blood specimen 09/29/2013 9:35 AM 013 9:47 (specimen) EST AM EST Resulting Agency Comment Spec In Lab Giorgio Cardona MD CHEMISTRY ORDERABLES Performing Organization Address City/State/[place] [address] CERNER MILLENNIUM Hemoglobin A1c (09/29/2013 9:35 AM EST) P athologist Signature Hemoglobin A1C 5.8 4.3 - 6.1 CERNER % MILLENNIUM Comment: The [place] Diabetes Association (ADA) has stated that HbA1c [...] into estimated average glucose values. ??Diabetes Care 2008:31(8):5211-3533. Specimen Anatomical Collection Method Collection Time Receive d Time (Source) Location / / Volume Laterality Blood specimen 09/29/2013 9:35 AM 013 9:47 (specimen) EST AM EST Resulting Agency Comment Spec In Lab Giorgio Cardona MD CHEMISTRY ORDERABLES Performing Organization Address City/State/[place] [address] [facility] (ABNORMAL) CMP w/fasting Glucose (09/29/2013 9:35 AM EST) athologist Signature Glucose 115 (H) 65 - 99 [facility] Fasting mg/dL [facility] Comment: ?Fasting* Glucose Interpretive C riteria Normal [...] of Diabetes Mellitus, Position Statement from the [place] Diabetes Association. ??Diabete s Care, Volume 33, Supplement 1, Nov 2009 BUN 21 (H) 10 - 20 mg/dL CERNER MILLENNIU M Creatinine 1.05 0.80 - 1.50 mg/dL CERNER MILL ENNIUM Comment: Please note that the pediatric reference intervals supplied above were not validated at [facility]. Results from pediatri c patients should be [...] Cardona MD CHEMISTRY ORDERABLES Performing Organization Address City/[facility]/[place] [address] CERNER MILLENNIUM (ABNORMAL) CBC [...] Cardona MD HEMATOLOGY ORDERABLES Performing Organization Address City/[facility]/[place] [address] CERNER MILLENNIUM documented in this encounter Visit Diagnoses Diagnosis Pancreatic cyst Cyst and pseudocyst of pancreas Dyslipidemia Other and unspecified hyperlipidemia Impaired fasting glucose Hypertension Unspecified essential hypertension Vitamin D deficiency Unspecified vitamin D deficiency documented in this encounter Care Teams Claim Processor Relationship Specialty Start Date End Date Giorgio Cardona MD PCP - General 10/04/10 04/10/17 [facility] [place] [address] documented as of this encounter
--- OUTSIDE RECORDS SUMMARY | 2022-10-09 16:18 | XMS_ITS | Encounter Summary ---
:1940 [place] [address] Care Team Providers Name Role Phone Giorgio Cardona MD Primary Care Provider Encounter Details Date Type Department Care Team Description 05/20/2012 Anesthesia Event Main Operating Room Pito Mendoza MD [address] [place] [address] [place] [address] [facility] Pito Perez MD [facility] [place] [address] [place] [address] Anesthesia Record Procedure Summary Procedure Name Responsible Anesthesia Start Anesthesia Stop Time Anesthesiologist Time anesthesia pre-op Events No events on file. No medications on file. Agents No agents on file. Blood No blood administrations on file. Lines, Drains, and Airways No LDAs on file. documented in this encounter Social History Tobacco Use Types Packs/Day Years Used Date Smoking Tobacco: Never Smokeless Tobacco: Never Alcohol Use Standard Drinks/Week Comments No 0 (1 standard drink = 0.6 oz pure alcoho l) Sex Assigned at Date Recorded Not on file documented as of this encounter OR Notes Anesthesia Preprocedure Evaluation - Pito Perez - 05/20/2012 2:52 PM EDT Images from the original note were not included. Anesthesia Evaluation Patient summary reviewed No hx of anesthetic complications Airway Mallampati: II TM distance: >3 FB Neck ROM: full Dental Pulmonary (+) COPD mild, shortness of breath, decreased breath sounds (@ R Mid-axillary base), (-) asthma, recent URI and sleep apnea ROS comment: H/o Lung Ca s/p RLLL lobectomy - T1N0M0 - Cardiovascular Exercise tolerance: good (+) valvular problems/murmurs (s/p mitral valve repair 2004 ), dysrhythmias (Sinus Moise with borderline 1st degree AV block - on metop), (-) hypertension, past RI, CAD, angina, orthopnea, PND, murmur and carotid bruits Rhythm: regular Rate: normal Neuro/Psych (-) seizures and CVA GI/Hepatic/Renal (+) GERD well controlled, (-) liver disease and renal disease Comments: H/o prostate ca s/p radation Endo/Other (+) hypothyroidism (s/p total thyroidectomy ), (-) Type II DM Comments: L RLN injury during thryroidectomy With vocal cord paralysis Abdominal Anesthesia Plan ASA 3 Spinal with intravenous induction 71 y.o. male with h/o mitral valve repair in 2004, R LL Lobectomy in 2010 for T1N0M0 lung cancer, total thyroidectomy c/b L RLN injury and unilateral vocal cord paralysis, and prostate cancer s/p XRT presents for R TKR. He has been feeling well since his previous surgeries, only complaining of knee pain and mild shortness of breath with heavy exertion. 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 He reports no complications from hisvalve replacement surgery and an echo in 03/2011 was within normal limits. He remains on metoprolol since his valve replacement but denies h/o HTN and is on levothyroxine following thyroidectomy; he does not take meds/inhalers for his COPD. He has no history of anesthetic complications. We discussed spinal and region anesthetics and their potential benefits with pt today especially in regards to avoiding unnecessary endotracheal intubation given his vocal cord paralysis and he is amennable to these techniques for that reason. HGB 13.8 HCT 40.0 PLATELET 178 05/20/2012 K 4.6 CREATININE 1.07 05/20/2012 INR 1.2 PT 15.7 05/20/2012 ABORH O Pos 05/20/2012 documented in this encounter Plan of Treatment Upcoming Encounters Date Type Specialty Care Team Description 10/11/2022 Office Visit Dermatology Virgilio Mckeon MD [facility] DR CHRISTIANO HENSON-DERMAT OLOGY [place], [place] [address] (Wo rk) 10/16/2022 Office Visit Otolaryngology Frank Buchanan MD [facility] OTOLARYNGOLOGY D EPT. [place], [place] [address] (Wo rk) 11/29/2022 Appointment Hematology and Oncology 11/29/2022 Office Visit Radiation Oncology Emerald Leyva APRN [facility] RADIATION ONCOLO GY [place], [place] [address] (Wo rk) documented as of this encounter Visit Diagnoses Not on filedocumented in this encounter Care Teams Head Orthopedic Team Physician Relationship Specialty Start Date End Date Giorgio Cardona MD PCP - General 10/04/10 04/10/17 [facility] GENERAL [place] [address] documented as of this encounter
--- OUTSIDE RECORDS SUMMARY | 2022-10-09 16:18 | XMS_ITS | Encounter Summary ---
:1940 Author Organization [facility] [place] [address] Care Team Providers Name Role Phone Giorgio Cardona MD Primary Care Provider Encounter Details Date Type Department Care Team Description 09/13/2012 Orders Only Internal Medicine [place] [facility] Giorgio Cardona MD [facility] [place] [address] GENERAL INTERNAL [phone] MEDICINE [place], [place] [address] (Wo rk) Social History Tobacco [...] Mckeon MD [facility] ER DR CHRISTIANO HENSON-DERMAT OLOGY [place], [place] [address] (Wo rk) 10/16/2022 Office Visit Otolaryngology Frank Buchanan MD [facility] ER OTOLARYNGOLOGMireille D EPT. [place], [place] [address] (Wo rk) 11/29/2022 Appointment Hematology and Oncology 11/29/2022 Office Visit Radiation Oncology Emerald Leyva APRN [facility] RADIATION ONCCESAR [place], [place] [address] (Wo rk) documented as of this encounter Procedures Procedure Name Priority Date/Time Associated Diagnosis Comme nts FILM LIBRARY Routine 09/13/2012 8:43 AM Results f or this STORAGE ONLY CT EDT procedure ar e in ABDOMEN AND PELVIS the resul ts section. documented in this encounter Results FILM LIBRARY- STORAGE ONLY CT ABDOMEN & PELVIS (09/13/2012 8:43 AM EDT) Specimen (Source) Anatomical Collection Method Collection Time Re ceived Time Location / / Volume Laterality 09/13/2012 8:43 AM EDT Narrative [facility] - 06/01/2014 7:04 PM EDT This is a non-reportable exam. Procedure Note Gunnar Aleman - 06/01/2014Formatti ng of this note might be different from the original. This is a non-reportable exam. Giorgio Cardona MD [facility] FILM LIBRARY ORDERABLES Performing Organization Address City/State/ZIP Code Phon e Number [facility] [address] [facility] [place] [address] documented in this encounter Visit Diagnoses Not on filedocumented in this encounter Care Teams Esthetician Relationship Specialty Start Date End Date Giorgio Cardona MD PCP - General 10/04/10 04/10/17 [facility] [place] [address] documented as of this encounter
--- OUTSIDE RECORDS SUMMARY | 2022-10-09 16:18 | XMS_ITS | Encounter Summary ---
:1940 Author Organization [facility] [place] [address] Care Team Providers Name Role Phone Giorgio Cardona MD Primary Care Provider Reason for Visit Reason Comments Medication Refill Encounter Details Date Type Department Care Team Description 08/18/2012 [address] Medicine [address] [facility] Giorgio Cardona MD [place] [address] GENERAL INTERNAL MEDICINE [phone] [place], [place] [address] (Wo rk) Social History Tobacco [...] MEDICAL [facility] ER DR CHRISTIANO HENSON-DERMAT OLOGY [place], [place] [address] (Wo rk) 10/16/2022 Office Visit Otolaryngology Frank Buchanan MD [facility] ER OTOLARYNGOLOGY Sarah EPT. [place], [place] [address] (Wo rk) 11/29/2022 Appointment Hematology and Oncology 11/29/2022 Office Visit Radiation Oncology Emerald Leyva APRN [facility] RADIATION ONCOLO [place], [place] [address] (Wo rk) documented as of this encounter Visit Diagnoses Not on filedocumented in this encounter Care Teams Skein Bander Relationship Specialty Start Date End Date Giorgio Cardona MD PCP - General 10/04/10 04/10/17 [facility] GENERAL [place] [address] documented as of this encounter
--- OUTSIDE RECORDS SUMMARY | 2022-10-09 16:18 | XMS_ITS | Encounter Summary ---
:1940 Author Organization [facility] [address] Care Team Providers Name Role Phone Giorgio Cardona MD Primary Care Provider Encounter Details Date Type Department Care Team Description 08/08/2012 Telephone Otolaryngology at [facility] [address] Social History Tobacco Use Types Packs/Day Years Used Date Smoking Tobacco: Never Smokeless Tobacco: Never Alcohol Use Standard Drinks/Week Comments No 0 (1 standard drink = 0.6 oz pure alcoho l) Sex Assigned at Date Recorded Not on file documented as of this encounter Miscellaneous Notes Telephone Encounter - Logan Monzon - 08/08/2012 2:48 PM EDT Patient notified of surgery date. documented in this encounter Plan of Treatment Upcoming Encounters Date Type Specialty Care Team Description 10/11/2022 Office Visit Dermatology Virgilio Mckeon MD [facility] DR CHRISTIANO [place], [place] [address] (Wo rk) 10/16/2022 Office Visit Otolaryngology Frank Buchanan MD [facility] OTOLARYNGOLOGY D EPT. [place], [place] [address] (Wo rk) 11/29/2022 Appointment Hematology and Oncology 11/29/2022 Office Visit Radiation Oncology Emerald Leyva APRN [facility] RADIATION ONCOLO GY [place], [place] [address] (Wo rk) documented as of this encounter Visit Diagnoses Not on filedocumented in this encounter Care Teams Electronic Induction Hardener Relationship Specialty Start Date End Date Giorgio Cardona MD PCP - General 10/04/10 04/10/[address] [facility] [place] [address] documented as of this encounter
--- OUTSIDE RECORDS SUMMARY | 2022-10-09 16:18 | XMS_ITS | Encounter Summary ---
:1940 Author Organization [facility] [place] [address] Care Team Providers Name Role Phone Giorgio Cardona MD Primary Care Provider Encounter Details Date Type Department Care Team Description 06/03/2012 Telephone Otolaryngology at [facility] [place] [address] Social History Tobacco Use Types Packs/Day Years Used Date Smoking Tobacco: Never Smokeless Tobacco: Never Alcohol Use Standard Drinks/Week Comments No 0 (1 standard drink = 0.6 oz pure alcoho l) Sex Assigned at Date Recorded Not on file documented as of this encounter Miscellaneous Notes Telephone Encounter - Kesha Powell - 06/03/2012 8:40 AM EDT Patient called back to schedule surgery, confirmed date of 07/09/12, no hck indicated. documented in this encounter Plan of Treatment Upcoming Encounters Date Type Specialty Care Team Description 10/11/2022 Office Visit Dermatology Virgilio Mckeon MD [facility] ER DR [place] [address] (Wo rk) 10/16/2022 Office Visit Otolaryngology Frank Buchanan MD [facility] OTOLARYNGOLOGY Sarah EPT. [place], [place] [address] (Wo rk) 11/29/2022 Appointment Hematology and Oncology 11/29/2022 Office Visit Radiation Oncology Emerald Leyva APRN [facility] RADIATION ONCOLO GY [place], [place] [address] (Wo rk) documented as of this encounter Visit Diagnoses Not on filedocumented in this encounter Care Teams Advertising Assistant Manager Relationship Specialty Start Date End Date Giorgio Cardona MD PCP - General 10/04/10 04/10/17 [facility] GENERAL [place] [address] documented as of this encounter
--- OUTSIDE RECORDS SUMMARY | 2022-10-09 16:18 | XMS_ITS | Encounter Summary ---
:1940 [place] [address] Care Team Providers Name Role Phone Giorgio Cardona MD Primary Care Provider Encounter Details Date Type Department Care Team Description 06/19/2012 Anesthesia Event Main Operating Room Dexter Perez MD [facility] [place] [address] [facility] Jerod Boswell [facility] [place] [address] [place] [address] Anesthesia Record Procedure Summary Procedure Name Responsible Anesthesia Start Anesthesia Stop Anesthesiologist Time Time TOTAL KNEE Dexter Ye MD 06/19/12 1302 06/19/12 15 26 ARTHROPLASTY (WRVU 20.72) (Right: Knee) Events Date Time Event Comment 06/19/2012 1302 Start 1312 1526 Stop No medications on file. Agents No agents on file. Blood No blood administrations on file. Lines, Drains, and Airways Type Details Placement Removal Incision 11/30/11; 1556; neck; 11/30/11 1556 by 07/10/22 1715 by 07/10/22 (LDA cleanup Amita Cerda, Mulle r, Dierdre L utility RA#[id number]); 1715 RN (LDA cleanup utility RA#[id number]) PIV 03/14/12; 1030; 02/25/18 03/14/12 1030 by 0921 by (Auto removal via [place] [employer], User utility); 0921 (Auto removal via utility) Incision 06/19/12; knee; 07/10/22 06/19/12 0000 by 1715 by (LDA cleanup utility Tamie Dye, RN Lizz er, Dierdre L RA#[id number]); 1715 (LDA cleanup utility RA#[id number]) Urethral Catheter 06/19/12; indwelling 06/19/12 0000 by 06/20/12 0949 by double lumen catheter; Tamie Dye, RN Bing Waters, latex; 16; inserted; 1; MI[employer] DYNAM[employer] DEVELOPER drainage bag to dependent drainage; 06/20/12; 0949 Drain/Device Site 06/19/12; Right; knee; 06/19/12 0000 by 0800 by collapsible closed Tamie Dye, Mane Hatch, device (large (3'') RN round drain to 400 ml reservoir); 06/20/12; 0800 PIV 06/19/12; 1409; 02/25/18 06/19/12 1409 by 0921 by (Auto removal via Jerod Boswell, Epic, Us er utility); 0921 (Auto HOME IMPROVEMENT ADVISOR removal via utility) documented in this encounter Social History Tobacco Use Types Packs/Day Years Used Date Smoking Tobacco: Never Smokeless Tobacco: Never Alcohol Use Standard Drinks/Week Comments No 0 (1 standard drink = 0.6 oz pure alcoho l) Sex Assigned at Date Recorded Not on file documented as of this encounter OR Notes Anesthesia Postprocedure Evaluation - Dexter Ye MD - 06/23/2012 8:00 AM EDT Patient: Alfredito Mina Procedure(s) Performed: Procedure(s): @TOTAL KNEE ARTHROPLASTY MODIFIER PFC STABILIZED FIXED MODULAR DEPUY Patient location: PACU Post-op pain: Adequate analgesia Post-op nausea: no nausea or vomiting Last Vitals: Filed Vitals: 06/22/12 0949 BP: 114/43 Pulse: 61 Temp: 36.8 ??C (98.2 ??F) Resp: 16 Post-op cardiovascular and respiratory status: is stable Level of consciousness: awake Complications: no apparent complications Fluid Status: normal Anesthesia Procedure Notes - Jerod Boswell CRNA - 06/19/2012 12:51 PM EDTAssociated Order(s): ANESTHESIA BLOCK; ANE BLOCK 2; ANESTHESIA BLOCK; ANE BLOCK 2 Procedure Block: Post-op Pain Control, femoral nerve block Start time: 06/19/2012 12:30 PM End time: 06/19/2012 12:42 PM This patient was greeted in the block room and the risks and benefits of the anesthetic block were reviewed. The risks of infection, bleeding, local anesthetic toxicity, and nerve injury were discussed. Specifically, the approximate risk of nerve injury (11/2999-11/4999) including neuropathy, loss of sensation and motor function, whether permanent or temporary, was discussed as well as the fact that post-surgical nerve injury can be unrelated to the actual injection and may be related to intra-operative issues such as positioning and tourniquet usage. The anesthetic consent was obtained. The timeout was performed prior to procedure start. Standard ASA monitors were applied. Indication/Prep Position: supine Prep: chlorhexidine Laterality: right Ultrasound Guidance: live and [id number] Skin Medication lidocaine 1% 4 ml Injection Injection technique:continuous Needle Length: Gauge: 18 Needle Type: tuohy Medication injection made incrementally with aspirations. Nerve infiltration solution through a catheter Ropivicaine 0.2% 32 mL Additional Notes 20 cc injected through needle, 12 cc injected through catheter. Performed by Junie Dean Procedure Primary Type: Spinal Start time: 06/19/2012 1:08 PM End time: 06/19/2012 1:16 PM Patient Prep Position: Sitting Prep: povidone-iodine and patient draped Injection technique: single-shot Skin Anesthetic Lidocaine 1% 2 ml Procedure Technique Level of needle insertion: L3-L4 Needle approach: midline Needle Type: [facility] Gauge: 25 Number of attempts: 1 Intrathecal Injection The patient received the following medication/s as an intrathecal injection: Bupivacaine 0.75% w dextrose2 ml Events/Notes Events: None Performed by Yessi Ye MD and Junie Boswell CRNA Anesthesia Preprocedure Evaluation - Dexter Ye MD - 06/19/2012 12:36 PM EDT Anesthesia Evaluation Patient summary reviewed and Nursing notes reviewed Airway Dental Pulmonary Cardiovascular (+) hypertension, valvular problems/murmurs MR, Neuro/Psych GI/Hepatic/Renal Endo/Other Abdominal Anesthesia Plan documented in this encounter Plan of Treatment Upcoming Encounters Date Type Specialty Care Team Description 10/11/2022 Office Visit Dermatology Virgilio Mckeon MD [facility] DR CHRISTIANO HENSON-DERMAT OLOGY [place], [place] [address] (Wo rk) 10/16/2022 Office Visit Otolaryngology Frank Buchanan MD [facility] OTOLARYNGOLOGY Sarah EPT. [place], [place] [address] (Wo rk) 11/29/2022 Appointment Hematology and Oncology 11/29/2022 Office Visit Radiation Oncology Emerald Leyva APRN [facility] RADIATION ONCOLO GY [place], [place] [address] (Wo rk) documented as of this encounter Visit Diagnoses Not on filedocumented in this encounter Care Teams Rehabilitation Center Manager Relationship Specialty Start Date End Date Giorgio Cardona MD PCP - General 10/04/10 04/10/17 [facility] [place] [address] documented as of this encounter
--- OUTSIDE RECORDS SUMMARY | 2022-10-09 16:18 | XMS_ITS | Encounter Summary ---
:1940 [place] [address] Care Team Providers Name Role Phone Giorgio Cardona MD Primary Care Provider Encounter Details Date Type Department Care Team Description 05/20/2012 Hospital Encounter Laboratory Alessio Quezada ([facility] MD Lexy joint disease) of [place], [place] CENTER [address] ORTHOPAEDIC [phone] [place] [address] Social History Tobacco Use Types Packs/Day Years Used Date Smoking Tobacco: Never Smokeless Tobacco: Never Alcohol Use Standard Drinks/Week Comments No 0 (1 standard drink = 0.6 oz pure alcoho l) Sex Assigned at Date Recorded Not on file documented as of this encounter Medications at Time of Discharge Medication Sig Dispensed Refills Start Date End Date warfarin (COUMADIN) 5 mg Take 1 tablet by 0 06/2206/22/2012 tablet mouth once for 1 dose. acetaminophen (TYLENOL) Take 2 tablets by 0 06/2207/26/2012 500 mg tablet mouth every 8 hours. senna-docusate Take 1-4 tablets by 0 06/22/2012 1 (PERICOLACE) 8.6-50 mg mouth 2 times daily. per tablet HYDROmorphone (DILAUDID) Take 1-3 tablets by 30 tablet 0 07/26/2012 2 mg tablet mouth every 4 hours as needed for Pain. omeprazole (PRILOSEC) 10 Take 10 mg by mouth 0 04/09/2014 mg capsule 2 times daily. potassium chloride Take 10 mEq by mouth 0 06/22/2012 (K-DUR) 10 mEq tablet daily. levothyroxine (SYNTHROID) Take 1 tablet by 30 tablet 12 12/1310/11/2018 125 mcg tablet mouth every morning. atenolol (TENORMIN) 50 mg Take 0.5 tablets by 30 tablet 3 0 12/15/2011 08/18/2012 tablet mouth daily. DOCUSATE SODIUM (COLACE Take by mouth daily. 0 06/22/2012 ORAL) naproxen sodium (ALEVE) Take 220 mg by mouth 0 06/22/2012 220 mg tablet 2 times daily. furosemide (LASIX) 20 mg 40 MG = 2 Tablet(s) 0 07/09/2012 tablet PO Once daily and PRN swelling terazosin (HYTRIN) 2 mg 4 MG = 2 Capsule(s) 0 07/09/2012 capsule PO QHS documented as of this encounter Plan of Treatment Upcoming Encounters Date Type Specialty Care Team Description 10/11/2022 Office Visit Dermatology Virgilio Mckeon MD [facility] DR CHRISTIANO HENSON-DERMAT OLOGY [place], [place] [address] (Wo rk) 10/16/2022 Office Visit Otolaryngology Frank Buchanan MD [facility] OTOLARYNGOLOGY D EPT. [place], [place] [address] (Wo rk) 11/29/2022 Appointment Hematology and Oncology 11/29/2022 Office Visit Radiation Oncology Emerald Leyva APRN [facility] RADIATION ONCOLO GY [place], [place] [address] (Wo rk) documented as of this encounter Procedures Procedure Name Priority Date/Time Associated Comments Diagnosis URINALYSIS WITH Routine 05/20/2012 1:01 PM DJD (degenerative R esults for this REFLEX CULTURE EDT joint disease) of procedur e are in knee the results section. ABO/RH TYPING Routine 05/20/2012 12:14 Results fo r this PM EDT procedure are i n the results section. ANTIBODY SCREEN Routine 05/20/2012 12:14 Results for this PM EDT procedure are i n the results section. DIFFERENTIAL, Routine 05/20/2012 12:05 Results fo r this AUTOMATED PM EDT procedure are i n the results section. PROTHROMBIN TIME Routine 05/20/2012 12:05 DJD (degenerative Re sults for this PM EDT joint disease) of procedure are in knee the results section. CBC (WITH DIFF) Routine 05/20/2012 12:05 DJD (degenerative Res ults for this PM EDT joint disease) of procedure are in knee the results section. BASIC METABOLIC PANEL Routine 05/20/2012 12:05 DJD (degenerati ve Results for this (NON-FASTING) PM EDT joint disease) of procedure are in knee the results section. documented in this encounter Results (ABNORMAL) Urinalysis with microscopic (05/20/2012 1:01 PM EDT) [facility] Method Time Signature Glucose UA Negative Negative CERNER mg/dL MILLENNIUM Protein UA Trace (A) Neg mg/dL CERNER MILLENNIUM Bilirubin UA Negative Negative CERNER mg/dL MILLENNIUM Urobilinogen UA Normal mg/dL CERNER MILLENNIUM pH UA 7.0 5.0 - 8.0 CERNER MILLENNIUM Blood UA Negative mg/dL CERNER MILLENNIUM Ketones UA Negative mg/dL CERNER MILLENNIUM Nitrite UA Negative CERNER MILLENNIUM Leukocytes UA Negative mcL CERNER MILLENNIUM Appearance UA Clear Clear CERNER MILLENNIUM Spec [place] UA 1.020 1.002 - CERNER 1.030 MILLENNIUM Color UA Yellow Yellow CERNER MILLENNIUM RBC UA Not Present 0 - 3 CERNER MILLENNIUM WBC UA <1 0 - 3 /HPF CERNER MILLENNIUM Squam Epith UA <1 <=4 /HPF CERNER MILLENNIUM Specimen Anatomical Collection Method Collection Time Receive d Time (Source) Location / / Volume Laterality Urine specimen 05/20/2012 1:01 PM 012 1:01 (specimen) EDT PM EDT Resulting Agency Comment Spec In Lab Alessio Quezada MD URINE ORDERABLES Performing Organization Address City/[facility]/ZIP Code Phon e Number [address] CERNER MILLENNIUM ANTIBODY SCREEN (05/20/2012 12:14 PM EDT) Analysis Performed At Patho logist Time Signature Ab Screen Negative CERNER Interp MILLENNIUM Expires at [id number] CERNER 235 on: MILLENNIUM Specimen Anatomical Collection Method Collection Time Receive d Time (Source) Location / / Volume Laterality Blood specimen 05/20/2012 12:14 2 (specimen) PM EDT 12:42 PM EDT Resulting Agency Comment Spec In Lab Alessio Quezada MD BLOOD BANK ORDERABLES Performing Organization Address City/[facility]/ZIP Code Phon e Number [address] [facility] ABO/RH TYPING (05/20/2012 12:14 PM EDT) P athologist Signature ABORh Type O Pos CERNER NELSONENNIUM Specimen Anatomical Collection Method Collection Time Receive d Time (Source) Location / / Volume Laterality Blood specimen 05/20/2012 12:14 2 (specimen) PM EDT 12:42 PM EDT Resulting Agency Comment Spec In Lab Alessio Quezada MD BLOOD BANK ORDERABLES Performing Organization Address City/[facility]/ZIP Code Phon e Number [address] [facility] MILLENNIUM (ABNORMAL) DIFFERENTIAL, AUTOMATED (05/20/2012 12:05 PM EDT) Patholo gist Method Time Signature Neutrophils % 51.5 34.0 - CERNER 71.0 % MILLENNIUM Neutr Abs (ANC) 2.16 1.50 - CERNER 6.30 MILLENNIUM x10(3)/mc L Lymphocytes % 28.8 19.0 - CERNER 53.0 % MILLENNIUM Lymphocytes Abs 1.2 1.0 - 3.6 CERNER x10(3)/mc MILLENNIUM L Monocytes % 16.4 (H) 4.0 - CERNER 13.0 % MILLENNIUM Monocyte Abs 0.7 0.2 - 1.0 CERNER x10(3)/mc MILLENNIUM L Eosinophils % 2.6 0.0 - 7.0 CERNER % MILLENNIUM Eosinophils Abs 0.1 0.0 - 0.5 CERNER x10(3)/mc MILLENNIUM L Basophils % 0.5 0.0 - 2.0 CERNER % MILLENNIUM Basophils [...] Location / / Volume Laterality Blood specimen 05/20/2012 12:05 2 (specimen) PM EDT 12:39 PM EDT Alessio Quezada MD HEMATOLOGY ORDERABLES Performing Organization Address City/State/ZIP Code Phon e Number [place] [phone] CERNER MILLENNIUM (ABNORMAL) Prothrombin Time (05/20/2012 12:05 PM EDT) P athologist Signature PT 15.7 (H) 11.9 - 14.7 CERNER sec MILLENNIUM Comment: [facility] Transfusion Committee Guidelines: I NR less than 2.0, PTT less than OR equal to 43.5 seconds, or Fibrinogen gre ater than or equal to 100 mg/dl indicate adequate procoagulant activity for hemostasis in patients without underlying bleeding disorders. INR 1.2 (H) 0.9 - 1.1 CERNER MILLENNIUM Specimen Anatomical Collection Method Collection Time Receive d Time (Source) Location / / Volume Laterality Blood specimen 05/20/2012 12:05 2 (specimen) PM EDT 12:39 PM EDT Resulting Agency Comment Spec In Lab Alessio Quezada MD HEMATOLOGY ORDERABLES Performing Organization Address City/State/ZIP Code [place] [address] CERNER MILLENNIUM (ABNORMAL) Basic Metabolic Panel (non-fasting) (05/20/2012 12:05 PM EDT) P athologist Signature Glucose Lvl 98 60 - 199 CERNER mg/dL MILLENNIUM Comment: Diabetes: >=200 mg/dL plus symp toms BUN 26 (H) 10 - 20 mg/dL CERNER MILLENNIU M Creatinine 1.07 0.80 - 1.50 mg/dL CERNER MILL ENNIUM Comment: Please note that the pediatric reference intervals supplied above were not validated [place] [facility] Results from pediatri c patients should be interpreted in conjunction to the patient's age, height and muscle mass. Sodium 139 135 - 145 mmol/L CERNER PATRICK NIUM [...] 31 mmol/L CERNER MILLENNI UM Anion Gap 9 5 - 15 mmol/L CERNER MILLENNIU M Calcium 8.8 8.5 - 10.5 mg/dL CERNER PATRICK NIUM Estimated GFR >60 >=60 CERNER MILLENNIU M Comment: The National Kidney Disease Education Pr ogram (NKDEP) has recommended all laboratories report estimated GFR (eGFR) along with plasma creatinine measurements to assist you with recognit ion of early kidney disease. Caveats: ??Plasma creatinine should be a t steady-state (unchanged within the past week). For patient s multiply eGFR by 1.2. The MDRD equation was developed using patients be tween the ages of 18 and 70 years. ?? The MDRD equation has not been validated for patients < 18 years of age and should not be used to assess renal function in the pediatric population. ??The MDRD eGFR equation will also overestimate the true GFR of patients above the age of 70. ??This overestimation is variable bu t increases with age. At present, NKDEP does NOT recommend usi ng the MDRD equation for drug dosing purposes and pharmacists should continue to use their current dosing methods. In addition, numerical eGFR values great er than 60 ml/min/1.73 square meters should be treated as > 60, and not an ex act number due to greater inaccuracies at these higher values. Per NKDEP, they classify normal renal function as any GFR >60ml/min/1.73 square meters; chronic kidney disease wh en GFR <60, and renal failure when GFR <15. ??This calculation may not be valid for patients with atypical muscle mass (very lean or obese), acute renal failur e, and in patients with diabetic kidney disease. References: http://nkdep.nih.gov/resources/NKDEP_Sug gestn4Labs_0606_508.pdf http://www.kidney.org/professionals/kls/ pdf/faq_gfr.pdf Cole K, Jigna NA, [place], Rony TS, Indy AD, Baudilio ANH. Relative performance of the MDRD and CKD-EPI equa tions for estimating glomerular filtration rate among patients with vari ed clinical presentations. Clin J Am Soc Nephrol;6:1963-72. Specimen Anatomical Collection Method Collection Time Receive d Time (Source) Location / / Volume Laterality Blood specimen 05/20/2012 12:05 2 (specimen) PM EDT 12:39 PM EDT Resulting Agency Comment Spec In Lab Alessio Quezada MD CHEMISTRY ORDERABLES Performing Organization Address City/State/[place] [address] [facility] MILLENNIUM (ABNORMAL) CBC (with Diff) (05/20/2012 12:05 PM EDT) P athologist Signature WBC 4.2 4.0 - 10.0 CERNER x10(3)/mcL MILLENNIUM RBC 4.14 (L) 4.63 - CERNER 6.08 MILLENNIUM x10(6)/mcL Hemoglobin 13.8 13.7 - CERNER 17.5 gm/dL MILLENNIUM Hematocrit 40.0 40.0 - CERNER 51.0 % MILLENNIUM MCV 96.6 (H) 79.0 - CERNER 92.0 fL MILLENNIUM MCH 33.3 (H) 25.6 - CERNER 32.2 pg MILLENNIUM MCHC 34.5 32.0 - CERNER 36.5 gm/dL ENNIUM Platelets 178 145 - 370 CERNER x10(3)/mcL ENNIUM RDWSD 47.6 (H) 35.0 - CERNER 46.0 fL ENNIUM RDWCV 13.5 10.9 - CERNER 14.4 % ENNIUM MPV 11.0 9.0 - 12.0 CERNER fL MILLENNIUM Specimen Anatomical Collection Method Collection Time Receive d Time (Source) Location / / Volume Laterality Blood specimen 05/20/2012 12:05 2 (specimen) PM EDT 12:39 PM EDT Resulting Agency Comment Spec In Lab Alessio Quezada MD HEMATOLOGY ORDERABLES Performing Organization Address City/State/[place] [address] [facility] documented in this encounter Visit Diagnoses Diagnosis DJD (degenerative joint disease) of knee Osteoarthrosis, unspecified whether gene ralized or localized, lower leg documented in this encounter Care Teams Floor Tiling Professional Relationship Specialty Start Date End Date Giorgio Cardona MD PCP - General 10/04/10 04/10/17 [facility] [place] [address] documented as of this encounter
--- OUTSIDE RECORDS SUMMARY | 2022-10-09 16:18 | XMS_ITS | Encounter Summary ---
:1940 Author Organization [facility] Address [facility] [place] [address] Care Team Providers Name Role Phone Giorgio Cardona MD Primary Care Provider Encounter Details Date Type Department Care Team Description 07/26/2012 [place] [facility] [address] Social History Tobacco Use Types Packs/Day Years Used Date Smoking Tobacco: Never Smokeless Tobacco: Never Alcohol Use Standard Drinks/Week Comments No 0 (1 standard drink = 0.6 oz pure alcoho l) Sex Assigned at Date Recorded Not on file documented as of this encounter Medications at Time of Discharge Medication Sig Dispensed Refills Start Date End Date aspirin 325 mg tablet Take 325 mg [...] 3 0 12/15/2011 08/18/2012 tablet mouth daily. documented as of this encounter Plan of Treatment Upcoming Encounters Date Type Specialty Care Team Description 10/11/2022 Office Visit Dermatology Virgilio Mckeon MD [facility] DR CHRISTIANO HENSON-DERMAT OLOGY [place], [place] [address] (Wo rk) 10/16/2022 Office Visit Otolaryngology Frank Buchanan MD [facility] OTOLARYNGOLOGY D EPT. [place], [place] [address] (Wo rk) 11/29/2022 Appointment Hematology and Oncology 11/29/2022 Office Visit Radiation Oncology Emerald Leyva APRN [facility] RADIATION ONCOLO GY [place], [place] [address] (Wo rk) documented as of this encounter Procedures Procedure Name Priority Date/Time Associated Diagnosis Comme nts XR KNEE 4 OR MORE Routine 07/26/2012 1:40 PM Osteoarth NOS-l/l eg Results for this VIEWS EDT procedure are i n the results section. documented in this encounter Results XR KNEE 4 OR MORE VIEWS (07/26/2012 1:40 PM EDT) Anatomical Region Laterality Modality Knee Radiographic Imaging Specimen (Source) Anatomical Collection Method Collection Time Re ceived Time Location / / Volume Laterality 07/26/2012 1:40 PM EDT Narrative 07/26/2012 4:09 PM EDT Examination KNEE 4 OR MORE VIEWS/RIGHT Clinical History Reason for exam and clinical history: po st op knee; To be done at postoperative follow up; Comparison 02/28/2011, 07/11/2010. Technique 4 views right knee, 3 views left knee. Findings Interval right total knee arthroplasty. ??No periprosthetic fracture or significant radiolucency is identified. ??There is a small-moderate joint effusion and/orsynovitis as well as prep atellar soft tissue swelling. Mild medial compartment joint space narr owing of the left knee situated on the standing flexion view without accompanyi ng osteophytosis. ??No patellar tilt or subluxation. Impression ? 1. Interval right total knee arth roplasty. ??No periprosthetic fracture or significant radiolucency to suggest loos ening. ? 2. Small to moderate right knee j oint effusion and/or synovitis. Procedure Note Micheal Tracy MD - 07/29/2012Formatti ng of this note might be different from the original. Examination KNEE 4 OR MORE VIEWS/RIGHT Clinical History Reason for exam and clinical history: po st op knee; To be done at postoperative follow up; Comparison 02/28/2011, 07/11/2010. Technique 4 views right knee, 3 views left knee. Findings Interval right total knee arthroplasty. No periprosthetic fracture or significant radiolucency is identified. There is a small-moderate joint effusion and/orsynovitis as well as prep atellar soft tissue swelling. Mild medial compartment joint space narr owing of the left knee situated on the standing flexion view without accompanyi ng osteophytosis. No patellar tilt or subluxation. Impression 1. Interval right total knee arthroplas ty. No periprosthetic fracture or significant radiolucency to suggest loos ening. 2. Small to moderate right knee joint e ffusion and/or synovitis. Alessio Quezada MD IMG DX ORDERABLES documented in this encounter Visit Diagnoses Diagnosis Osteoarthrosis, unspecified whether gene ralized or localized, lower leg documented in this encounter Care Teams Pipe Bowls Paint Trimmer Relationship Specialty Start Date End Date Giorgio Cardona MD PCP - General 10/04/10 04/10/17 [facility] [place] [address] documented as of this encounter
--- OUTSIDE RECORDS SUMMARY | 2022-10-09 16:18 | XMS_ITS | Encounter Summary ---
:1940 Author Organization [facility] [place] [address] Care Team Providers Name Role Phone Giorgio Cardona MD Primary Care Provider Encounter Details Date Type Department Care Team Description 05/20/2012 Anesthesia Event Same Day at [facility] Pito Perez MD [address] [place] [address] [place] [address] [facility] Pito Kingsley MD [facility] [place] [address] [place] [address] Anesthesia Record Procedure Summary Procedure Name Responsible Anesthesia Start Anesthesia Stop Anesthesiologist Time Time LARYNGOSCOPY WITH VOCAL CORD INJECTION (WRVU 3.86) Events No events on file. No medications on file. Agents No agents on file. Blood No blood administrations on file. Lines, Drains, and Airways Type Details Placement Removal Incision 05/02/22; 0743; Left; throat 05/02/22 0743 by Jerod Cleary, (left vocal cord injection) RN documented in this encounter Social History Tobacco Use Types Packs/Day Years Used Date Smoking Tobacco: Never Smokeless Tobacco: Never Alcohol Use Standard Drinks/Week Comments No 0 (1 standard drink = 0.6 oz pure alcoho l) Sex Assigned at Date Recorded Not on file documented as of this encounter OR Notes Anesthesia Preprocedure Evaluation - Pito Perez - 05/20/2012 1:39 PM EDT Images from the original note [...] block - on metop), (-) hypertension, past OH, CAD, angina, orthopnea, PND, murmur and carotid [...] Plan ASA 3 Spinal with intravenous induction Revision addendum: Please note anesthetic plan misfiled in wrong patient encounter. Please see appropriate plan in total knee replacement encounter. documented in this encounter Plan of Treatment Upcoming Encounters Date Type Specialty Care Team Description 10/11/2022 Office Visit Dermatology Virgilio Mckeon MD [facility] DR CHRISTIANO HENSON-DERMAT OLOGY [place], [place] [address] (Leroy bhatia) 10/16/2022 Office Visit Otolaryngology Frank Buchanan MD [facility] OTOLARYNGOLOGY D EPT. [place], [place] [address] (Leroy bhatia) 11/29/2022 Appointment Hematology and Oncology 11/29/2022 Office Visit Radiation Oncology Emerald Leyva APRN [facility] RADIATION ONCOLO GY [place], [place] [address] (Wo rk) documented as of this encounter Visit Diagnoses Not on filedocumented in this encounter Care Teams Public Address Systems Mechanic Relationship Specialty Start Date End Date Giorgio Cardona MD PCP - General 10/04/10 04/10/17 [facility] GENER[place] [address] documented as of this encounter
--- OUTSIDE RECORDS SUMMARY | 2022-10-09 16:18 | XMS_ITS | Encounter Summary ---
:1940 Author Organization [facility] [place] [address] Care Team Providers Name Role Phone Giorgio Cardona MD Primary Care Provider Encounter Details Date Type Department Care Team Description 07/09/2012 Hospital Encounter Laboratory Becka Dean, Prostate cancer [address] [place]ATION [place] [address] [place], [place] [phone] [id number] Social History Tobacco Use Types Packs/Day Years Used Date Smoking Tobacco: Never Smokeless Tobacco: Never Alcohol Use Standard Drinks/Week Comments No 0 (1 standard drink = 0.6 oz pure alcoho l) Sex Assigned at Date Recorded Not on file documented as of this encounter Medications at Time of Discharge Medication Sig Dispensed Refills Start Date End Date furosemide (LASIX) 20 mg Take 1 tablet by 30 tablet 0 07/0910/11/2018 tablet mouth daily. terazosin (HYTRIN) 2 mg Take 1 capsule by 0 07/0910/11/2018 capsule mouth nightly. acetaminophen (TYLENOL) Take 2 tablets by 0 06/2207/26/2012 500 mg tablet mouth every 8 hours. senna-docusate Take 1-4 tablets by 0 06/22/2012 1 (PERICOLACE) 8.6-50 mg per mouth 2 times tablet daily. HYDROmorphone (DILAUDID) 2 Take 1-3 tablets by 30 tablet 0 06/22/2012 07/26/2012 mg tablet mouth every 4 hours as [...] [facility] DR CHRISTIANO HENSON-DERMAT OLOGY [place], [place] [address] (Wo rk) 10/16/2022 Office Visit Otolaryngology Frank Buchanan MD [facility] OTOLARYNGOLOGY D EPT. [place], [place] [address] (Wo rk) 11/29/2022 Appointment Hematology and Oncology 11/29/2022 Office Visit Radiation Oncology Emerald Leyva APRN [facility] RADIATION ONCOLO GY [place], [place] [address] (Wo rk) documented as of this encounter Procedures Procedure Name Priority Date/Time Associated Diagnosis Comme nts PSA Routine 07/09/2012 3:55 PM Prostate cancer Result s for this (ULTRASENSITIVE) EDT procedure a re in the results section. documented in this encounter Results PSA (07/09/2012 3:55 PM EDT) P athologist Signature PSA Total 0.48 0.00 - CERNER (Ultrasensitiv 4.00 ng/mL [facility] e) Specimen Anatomical Collection Method Collection Time Receive d Time (Source) Location / / Volume Laterality Blood specimen 07/09/2012 3:55 PM 012 3:58 (specimen) EDT PM EDT Resulting Agency Comment Spec In Lab Giorgio Franklin MD CHEMISTRY ORDERABLES Performing Organization Address City/State/ZIP Code Phon e Number [place] [phone] HOSPITAL LABORATORY [facility] documented in this encounter Visit Diagnoses Diagnosis Prostate cancer Malignant neoplasm of prostate documented in this encounter Care Teams Aviation Safety Officer Relationship Specialty Start Date End Date Giorgio Cardona MD PCP - General 10/04/10 04/10/17 [facility] [place] [address] documented as of this encounter
--- OUTSIDE RECORDS SUMMARY | 2022-10-09 16:18 | XMS_ITS | Encounter Summary ---
:1940 Author Organization [facility] [place] [address] Care Team Providers Name Role Phone Arabella Rob MD Primary Care Provider Reason for Referral Consultation (Routine) - Closed by system - unspecified Specialty Diagnoses / Procedures Referred By Contact Refer red To Contact Diagnoses DJD (degenerative joint disease) of knee Damion Forman RN [facility] D [place] [address] Referral ID Status Reason Start Expiration Visits Visits Date Date Requested Authorized [id number] Closed by Assume 06/22/2012 12/19/2012 1 1 system - Subset of unspecified Care Encounter Details Date Type Department Care Team Description 06/19/2012 - Hospital Encounter 3 [place] Alessio Yo (d egenerative 06/22/2012 Olga Pugh MD joint disease) of [facility] DR Pereira ORTHOPAEDIC [place], [place] SURGERY [address] [place], [place] [phone] [id number] Social History Tobacco Use Types Packs/Day Years Used Date Smoking Tobacco: Never Smokeless Tobacco: Never Alcohol Use Standard Drinks/Week Comments No 0 (1 standard drink = 0.6 oz pure alcoho l) Sex Assigned at Date Recorded Not on file documented as of this encounter Last Filed Vital Signs Vital Sign Reading Time Taken Comments Blood Pressure 114/43 06/22/2012 9:49 AM EDT Pulse 61 06/22/2012 9:49 AM EDT Temperature 36.8 ??C (98.2 ??F) 06/22/2012 9:49 AM EDT Respiratory Rate 16 06/22/2012 9:49 AM EDT Oxygen Saturation 99% 06/22/2012 5:15 AM EDT Inhaled Oxygen Concentration - - Weight 68 kg (150 lb) 06/19/2012 6:05 PM EDT Height 168.9 cm (5' 6.5) 06/19/2012 6:05 PM EDT Body Mass Index 23.85 06/19/2012 6:05 PM EDT documented in this encounter Discharge Instructions Patient InstructionsRockyroman Dmaionjuventino Velez APRN - 06/19/2012 3:15 PM EDT Activity: You can full weight bear on your right leg remembering to use a walker or crutches at all times for balance and protection. Flexion AND extension are important to work on at home. You should NOT place a pillow under your knee. To help with extension you can place a pillow under your heel or lower leg or placed lengthwise along the leg. Again DO NOT place a pillow under the operated knee forcomfort. You should wear the GREGOR hose to knee bilaterally until you are seen in followup. Remove these at least once per day to inspect your skin. Coumadin flow sheet: Date Notes INR Coumadin dose (mg) 06/19 day of operation 1.2 5 06/20 POD 1 1.3 5 06/21 POD 2 1.6 5 06/22 D/c POD 3 2.0 5 Anti-coagulation followup: (for rehab bound pts) 1. Your coumadin level or INR target range is 2-3. This will need to be checked while you are at rehab by your PCP or the rehab physician. 3. When you are discharged from rehab to home this will still need to be checked by the Visiting Nurse at least twice per week thereafter (usually every Sunday and ). The INR should be reportedto the [facility] Ortho clinic at [phone], and you will be informed of any needed changes in your Coumadin dose. 4. If your INR level is ever above 3.5 you should not participate in aggressive Physical therapy exercises - you can ambulate/mobilize. This will decrease the possibility of more bleeding into your joint. Once your INR is less than 3.5 you can resume Physical therapy. One of the Orthopedic nurses willcall you with further instructions as needed. 5. You will be on Coumadin for 4 weeks. On July 18, STOP the Coumadin and begin Aspirin 325mg twice a day until you are seen in followup with Alessio Pelletier MD. Diet: Normal but increase your intake of fluids and fiber while you are on narcotic pain meds to prevent constipation. Driving: None until you are cleared to do so by your orthopedic surgeon. Ideally you should not drive while you are on narcotic pain medications as they can impede your judgement and reaction time. Call you surgeon with any questions/concerns. Medications: 1. The pain medication you are on can cause constipation so increase your intake of fluids and fiberwhile you are taking them. The stool softener, sennakot, that has been prescribed can also be taken to facilitate a bowel movement. You can also take an [id number] medication, miralax to help if needed. 2. If you need a renewal on your narcotic pain medication, you need to give the Orthopedic clinic enough time to process your request. This can take up to three days, so plan accordingly. 3. The charts below will let you know of any medication changes that might have occured during your hospital stay. Wound:1. Suture/staple removal 12-14 days post-op. (approx July 03). 2. You may shower , but do not rub the dressing, and pat dry. 3. Remove your operative dressing 7 days from your surgery (June 26). When it is removed you canleave the incision open to air or cover it with a light dressing (using the Tubifast to hold the dressing in place). 4. If you have lots of drainage when you get home (and it is before June 26), remove this operative dressing and replace it with dry sterile gauze covered with Tubifast to hold the dressing in place. Continue with daily dressing changes (and as needed) until the drainage stops, then remove the dres sing and leave the incision open to air or lightly covered. 5. Call your orthopaedic surgeon (#[phone]) with any fevers, chills, sweats, redness or discharge from the wound. Misc:1. Remember that ICE and elevation are very important after surgery to help decrease swelling and control pain. Use ICE for 20-30 minutes at a time and keep your leg elevated as much as possible. 2. Please go to the radiology department,3T for xrays one hour prior to your followup appointment documented in this encounter Medications at Time [...] 3 0 12/15/2011 08/18/2012 tablet mouth daily. furosemide (LASIX) 20 mg 40 MG = 2 Tablet(s) 0 07/09/2012 tablet PO Once daily and PRN swelling terazosin (HYTRIN) 2 mg 4 MG = 2 Capsule(s) 0 07/09/2012 capsule PO QHS documented as of this encounter Progress Notes Jeffery Haines RN - 06/22/2012 1:15 PM EDT D/C summary reviewed w/ pt and SO. Pt d/c'd to SNF w/ belongings, cryocuff, prescription, packet w/ paperwork, extra TEDS, and AFS. Report called to rehab facility. JEFFERY HAINES RN. Alessia Samson CHAIR SPRINGER - 06/22/2012 11:19 AM EDT Physical Therapy Treatment Note Visit #: 3 Patient Dx: Pt. is a 72 y.o. y.o. male admitted on 06/19/2012 by Alessio Pelletier MD for R TKA . Precautions: WBAT right LE Interval History: stable S: The knee feels better every day. O: Patient seen for 30 min's for exercise and functional mobility to address goals. Pt demonstrated the following: Sit>-<stand with supervision. Patient ambulated 250 feet with front wheeled walker and supervision. Independent with bed mobility on a flat mat. Patient did exercises for the right LE consisting of ankle pumps, quad sets, heel slides, SAQ, LAQ and active knee flexion in sitting X10 each. Range of Motion: AROM R knee extension = lacking ~5 degrees, flexion~110 degrees. Strength: Patient able to do active SAQ, LAQ and SLR for the right LE Pain: tolerable during therapy. Education: Pt/family education ongoing on exercises to help improve knee extension with the patient verbalizing understanding. Staff Communication: Patient status, treatment, and mobility recommendations discussed with nursing. A: Patient is making steady progress with his functional mobility and gait with the walker. He is moving more slowly and standing straighter today. Patient is a good participant and motivated to improve. Pt will benefit from ongoing therapeutic interventions to achieve pt's and therapy goals Physical Therapy Goals: (to be achieved in 1-3 days ) Pt will be knowledgeable of prescribed exercises. - Met Pt will demonstrate AROM knee extension 0-15 degrees and flexion 80 - 90 degrees. - Met Pt will move supine<>sit indep . - Met Pt will move sit<>stand indep . Pt will ambulate 200 feet using walker indep . Pt will negotiate flight steps w/rail using rail and crutches, or two rails . P: Cont per POC as outlined on 06/20/12 Total time spent with patient: 30 minutes. Timed interventions: 30 minutes. Pager: [phone] ALESSIA SAMSON PTA Physical Therapy Rehabilitation Department Osmar Tafoya MD - 06/22/2012 5:30 AM EDT Orthopaedic Surgery Progress Note Surgery: Right TKA S: No major issues, pain controlled, denies CP/SOB/N/V. O: Vitals: Temp: [36.5 ??C (97.7 ??F)-37.4 ??C (99.3 ??F)] Heart Rate: [72-75] Resp: [16] BP: (100-105)/(55-57) SpO2: [97 %] I/O last 3 completed shifts: In: 2120 [P.O.:2120] Out: 3050 [Urine:3050] I/O this shift: In: 240 [P.O.:240] Out: 550 [Urine:550] Exam: General: NAD, awake/alert Resp: Breathing comfortably Abd: S/NT/ND RLE: Incision w/out E/I/D. Motor intact to EHL, FHL, TA. SILT SP/DP/T Labs: Recent Labs Basename 06/21/12 0419 06/20/12 0358 ??? WBC 11.7* 8.2 ??? HGB 11.4* 10.6* ??? HCT 33.4* 31.3* ??? PLATELET 180 147 ??? NA 136 137 ??? K 3.8 4.2 ??? CL 101 104 ??? CO2 26 29 ??? BUN 14 15 ??? CREATININE 0.86 0.84 06/22/12 AM labs pending A/P: 72 y.o. year old male s/p right TKA. Progressing well. Activity: WBAT with assist devices darwin all times PT daily Anticoagulation: Coumadin x 4 weeks Dressing: Mepilex dressing x7 days. Inspect wound prior to discharge. Rosario out Pain Control:Orals Dispo:Rehab today Follow up as scheduled Nickolas Rosas - 06/21/2012 3:24 PM EDT Office of Care Management/Drug Abuse Social Worker Group 2 Patient Name: Katlin Mina : 1940 Patient has been offered a Swing bed at [facility]. For Sunday, 06-19 ifpatient is medically ready for discharge. Patient will travel with his by private car. No MD to MD report necessary or Please have MD call at : Please call Nursing Report to [phone], ask for Swing 2nd floor paid search analyst. Info to accompany patient: Narcotic Prescriptions Copies of Medication Administration Records and IV sheets for past 10 days. Plan: Drug Abuse Social Worker will be available to the patient and CRC for further assistance. Patient will be discharged to: [address] [address] NICKOLAS ROSAS Drug Abuse Social Worker Alessia Samson PTA - 06/21/2012 8:32 AM EDT Physical Therapy Treatment Note Visit #: 2 Patient Dx: Pt. is a 72 y.o. y.o. male admitted on 06/19/2012 by Alessio Pelletier MD for R TKA . Precautions: WBAT right LE Interval History: stable S: The knee hurts some but I can take it. O: Patient seen for 32 min's for exercise and functional mobility to address goals. Pt demonstrated the following: Sit>-<stand with standby assist. Needs cues to push up from the bed or armrest. Patient ambulated 120 feet with the front wheeled walker with standby assist. He tends to ambulate very quickly and needs verbal cues to stand up straight. Independent with bed mobility on a flat mat. Patient did exercises for the right LE consisting of ankle pumps, quad sets, heel slides, SAQ, LAQ and active knee flexion in sitting X10 each. ?? Range of Motion: AROM R knee extension = lacking ~7 degrees , flexion = ~97 degrees Strength: Able to do active SAQ, LAQ. SLR with slight quad lag. Pain: tolerable during therapy. Education: Pt/family education ongoing to ambulate more slowly with the walker with the patient verbalizing understanding. Staff Communication: Patient status, treatment, and mobility recommendations discussed with nursing. A: Patient is making good progress with the right knee ROM and strengthening. He needs verbal reminders during transfers and gait with the walker for his safety. He is a very good participant in therapy and should progress well.. Pt will benefit from ongoing therapeutic interventions to achieve pt's and therapy goals Physical Therapy Goals: (to be achieved in 1-3 days ) Pt will be knowledgeable of prescribed exercises. - Met Pt will demonstrate AROM knee extension 0-15 degrees and flexion 80 - 90 degrees. - Met Pt will move supine<>sit indep . - Met Pt will move sit<>stand indep . Pt will ambulate 200 feet using walker indep . Pt will negotiate flight steps w/rail using rail and crutches, or two rails . P: Cont per POC as outlined on 06/20/12 Total time spent with patient: 32 minutes Total timed interventions: 32 minutes Pager: [phone] ALESSIA SAMSON PTA Physical Therapy Rehabilitation Department Gail Spaulding III, MD - 06/21/2012 7:15 AM EDT Orthopaedic Surgery Progress Note Surgery: Right TKA Patient Active Problem List Diagnoses Code ??? Constipation 564.00A ??? Dyslipidemia 272.4CR ??? GERD (gastroesophageal reflux disease) 530.81S ??? Hypertension 401.9AJ ??? Impaired fasting glucose 790.21 ??? Lung cancer 162.9M ??? S/p mitral valve repair V45.89FR ??? Multinodular goiter 241.1R ??? Osteoarthritis 715.90AN ??? Pancreatic cyst 577.2G ??? Prostate cancer 185A ??? Inguinal hernia recurrent unilateral 550.91B ??? Post-nasal drip 784.91B ??? 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 Anxiety 300.00E ??? S/P thyroidectomy V45.89FE ??? Dysphagia, unspecified 787.20 ??? Vocal cord paralysis 478.30K ??? DJD right knee s/p R TKA Dr. Quezada 06/19 715.96J S/Events: I couldn't be happier with my knee. Pain controlled. Ambulating, voiding, tolerating po. O: Vitals: Temp: [36.9 ??C (98.4 ??F)-37.3 ??C (99.1 ??F)] Heart Rate: [80-82] Resp: [16] BP: (117-146)/(55-62) SpO2: [98 %] I/O last 3 completed shifts: In: 3239 [P.O.:1870; I.V.:1269; IV Piggyback:100] Out: 4240 [Urine:3800; Other:440] Exam: General: NAD, awake/alert Resp: Breathing comfortably Abd: S/NT/ND RLE: Dressing c/d/i. Motor intact to EHL, FHL, TA. SILT s./s/sp/dp Labs: Recent Labs Basename 06/21/12 0419 06/20/12 0358 ??? WBC 11.7* 8.2 ??? HGB 11.4* 10.6* ??? HCT 33.4* 31.3* ??? PLATELET 180 147 ??? NA 136 137 ??? K 3.8 4.2 ??? CL 101 104 ??? CO2 26 29 ??? BUN 14 15 ??? CREATININE 0.86 0.84 A/P: 72 y.o. year old male POD#2 s/p right TKA. Doing great. Rehab tomorrow. INR 1.6 today. Activity: WBAT with assist devices darwin all times PT daily Anticoagulation: Coumadin Dressing: Mepilex dressing x7 days. Inspect wound prior to discharge. Rosario out Pain Control:TRIPOLER, Oral Dispo:Rehab on Sat. Follow up as scheduled T Ade Frias MD - 06/21/2012 6:55 AM EDT Department of Anesthesiology Peripheral/Regional Nerve Block Consult Service Peripheral Nerve Catheter Progress Note 06/21/2012 We are actively managing a sierra-neural catheter in consultation with the ORTHOPEDIC service for the management of acute pain. Peripheral Nerve Catheter Location: femoral right Catheter Day (DAY OF PLACEMENT IS DAY ZERO): 2 Subjective: Current Pain Score: moderate Pain Location: diffuse Pain qualities:didn't describe, 'buckling' bothering him Symptoms of local anesthetic toxicity: no Nausea/Vomiting Overnight: mild Comments: Nauseated overnight. Got some sleep. I did three laps. I'm doing better today. Objective: Patient Vitals in the past 8 hrs: BP Temp Temp src Pulse Resp SpO2 06/21/12 0521 146/62 mmHg 36.9 ??C (98.4 ??F) Oral 82 16 98 % 06/21/12 0129 117/55 mmHg 37.3 ??C (99.1 ??F) Oral 80 16 98 % Catheter site examined. Clean, dry, dressing intact. Infusate tubing, drug, and settings reviewed. Infusate: ROpivaaine Dose: 2 MILLIGRAMS/ML Settings: 4 ML/HOUR 6 ML/PATIENT BOLUS PER Sixty MINUTES Sensory Block Present? Yes Degree of Motor Block: mild Lab Results Component Value Date WBC 11.7* 06/21/2012 RBC 3.39* 06/21/2012 HGB 11.4* 06/21/2012 HCT 33.4* 06/21/2012 MCV 98.5* 06/21/2012 MCH 33.6* 06/21/2012 MCHC 34.1 06/21/2012 PLATELET 180 06/21/2012 RDWCV 14.0 06/21/2012 Coags Lab Results Component Value Date INR 1.6* 06/21/2012 PT 19.1* 06/21/2012 PRN and SCHEDULED MEDICATIONS: ??? warfarin 5 mg Oral Once ??? calcium carbonate 2 tablet Oral BID WC ??? DISCONTD: warfarin 5 mg Oral Once ??? DISCONTD: TRIPOLER melchor ??? sodium chloride 0.9 % 5 mL Intravenous Q12H ??? senna-docusate 1-4 tablet Oral BID ??? ceFAZolin 1 g Intravenous Q8H ??? acetaminophen 1,000 mg Oral Q8H YARELY ??? esomeprazole 40 mg Oral Daily ??? warfarin (COUMADIN) daily order reminder Oral Q24H ??? HYDROmorphone (DILAUDID) tablet 2-6 mg 2-6 mg Oral Q4H PRN ### ??? polyethylene glycol (MIRALAX) packet 17 g 17 g Oral Daily PRN ### ??? lactulose (CHRONULAC) 20 gram/30 mL oral solution 20-40 g 30-60 mL Oral Daily PRN ### ??? bisacodyl (DULCOLAX) EC tablet 10 mg 10 mg Oral BID PRN ### ??? bisacodyl (DULCOLAX) suppository 10 mg 10 mg Rectal Daily PRN ### ??? diphenhydrAMINE (BENADRYL) injection 25 mg 25 mg Intravenous Q30 Min PRN ### ??? ondansetron (ZOFRAN) injection 4 mg 4 mg Intravenous Q30 Min PRN ### ??? naloxone (NARCAN) injection 0.2 mg 0.2 mg Intravenous Q1 Min PRN ### ??? DISCONTD: OXYcodone (ROXICODONE) immediate release tablet 5 mg 5 mg Oral Q4H PRN ### ??? DISCONTD: OXYcodone (ROXICODONE) immediate release tablet 10 mg 10 mg Oral Q4H PRN ### ??? DISCONTD: OXYcodone (ROXICODONE) immediate release tablet 15 mg 15 mg Oral Q4H PRN ### Comments: Appropriately progressing, on coumadin Assessment: Appropriately functioning peripheral nerve catheter: yes D/c today Plan and/or Recommendations: Catheter Plan: Catheter removed. Tip Intact: yes Recommendations are above, please page if further consultation required. Comments: Doing great, signing off, catheter d/c'd, instructed to call with nick. ADE FRIAS MD, MD Contact regional anesthesia team with any questions (pager [phone]). Alessio Vences - 06/20/2012 4:26 PM EDT Last Updated 02/09/11-/JEREMY Date:06/20/2012 Time: 4:26 PM Pertinent Problem List: Patient Active Problem List Diagnoses Code ??? Constipation 564.00A ??? Dyslipidemia 272.4CR ??? GERD (gastroesophageal reflux disease) 530.81S ??? Hypertension 401.9AJ ??? Impaired fasting glucose 790.21 ??? Lung cancer 162.9M ??? S/p mitral valve repair V45.89FR ??? Multinodular goiter 241.1R ??? Osteoarthritis 715.90AN ??? Pancreatic cyst 577.2G ??? Prostate cancer 185A ??? Inguinal hernia recurrent unilateral 550.91B ??? Post-nasal drip 784.91B ??? 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 Anxiety 300.00E ??? S/P thyroidectomy V45.89FE ??? Dysphagia, unspecified 787.20 ??? Vocal cord paralysis 478.30K ??? DJD right knee s/p R TKA Dr. Quezada 06/19 715.96J Clinical Status: comfortable up in chair Physical Exam: VS: within normal limits I&O: Satisfactory Resp. Status: no respiratory symptoms Abdominal: has no abdominal pain, rectal pain, no vomiting, diarrhea, contipation or painful bowel movements Distal Nerve Vascular exam: Intact intact as pre op Swelling: swelling appropWound: acceptable Labs: Lab Results Component Value Date WBC 8.2 06/20/2012 HGB 10.6* 06/20/2012 PLATELET 147 06/20/2012 K 4.2 06/20/2012 CO2 29 06/20/2012 BUN 15 06/20/2012 CREATININE 0.84 06/20/2012 INR 1.3* 06/20/2012 Pertinent Imagaing: Plan:mobilize Kasia Lira RN - 06/20/2012 10:38 AM EDT Office of Care Management (OCM) / Clinical Loin Puller (CRC)/ Initial Assessment Discussed patient with Provider Team and in multidisciplinary discharge-planning rounds. Reviewed record and interviewed patient. Introduced/reviewed CRC role and services accepted. REASON for HOSPITALIZATION: DJD (degenerative joint disease) of knee ; s/p R TKA Cont. R femoral nerve block; TRIPOLER;WBAT;PT eval; Coumadin. PMH/PSH: Constipation Dyslipidemia GERD (gastroesophageal reflux disease) Hypertension Impaired fasting glucose Lung cancer S/p mitral valve repair Multinodular goiter Osteoarthritis Pancreatic cyst Prostate cancer Inguinal hernia recurrent unilateral Retrosternal goiter Anxiety S/P thyroidectomy Dysphagia, unspecified PREVIOUS FUNCTIONAL STATUS: independent CURRENT FUNCTIONAL STATUS:per PT=WBAT =Ambulated 20 ft using walker with min to at times mod/max assist to remain upright . 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 PRIMARY CARE PHYSICIAN: ARABELLA ROB MD, MD [facility] INTERNAL [facility]ICINE / [place] [facility]* [phone] POTENTIAL DISCHARGE NEEDS: Would like to go to rehab.; reviewed SNF choices and Medicare coverage;hewould like referrals to :#1 [facility] swing;#2 [facility]; and #3 [facility] swing; referral office notified; await response; likely ready Sunday. PATIENT/FAMILY EDUCATION NEEDS:per discharge summary;Coumadin teaching ANTICIPATED BARRIERS TO DISCHARGE:none TRANSPORTATION @ D/C: likely spouse unless he needs ambulance; informed of possible co-pay if he went by ambulance; will need to reassess when closer to discharge PLAN: CRC will continue to monitor progress, follow for continuity of care and assist with dischargeplanning while hospitalized . Ade Frias MD - 06/20/2012 9:20 AM EDT Department of Anesthesiology Peripheral/Regional Nerve Block Consult Service Peripheral Nerve Catheter Progress Note 06/20/2012 We are actively managing a sierra-neural catheter in consultation with the ORTHOPEDIC service for the management of acute pain. Peripheral Nerve Catheter Location: femoral right Catheter Day (DAY OF PLACEMENT IS DAY ZERO): 1 Subjective: Current Pain Score: 10 Pain Location: lateral Pain qualities:cramp Symptoms of local anesthetic toxicity: no Nausea/Vomiting Overnight: none Comments: Pain is along ITB towards hip. Objective: Patient Vitals in the past 8 hrs: BP Temp Temp src Pulse Resp SpO2 06/20/12 0601 125/66 mmHg 36.6 ??C (97.9 ??F) Oral 67 16 98 % 06/20/12 0129 109/63 mmHg 36.7 ??C (98.1 ??F) Oral 63 18 99 % Catheter site examined. Clean, dry, dressing intact. Infusate tubing, drug, and settings reviewed. Infusate: ROpivaaine Dose: 2 MILLIGRAMS/ML Settings: 4 ML/HOUR 6 ML/PATIENT BOLUS PER Sixty MINUTES Sensory Block Present? Yes Degree of Motor Block: mild Lab Results Component Value Date WBC 8.2 06/20/2012 RBC 3.17* 06/20/2012 HGB 10.6* 06/20/2012 HCT 31.3* 06/20/2012 MCV 98.7* 06/20/2012 MCH 33.4* 06/20/2012 MCHC 33.9 06/20/2012 PLATELET 147 06/20/2012 RDWCV 13.6 06/20/2012 Coags Lab Results Component Value Date INR 1.3* 06/20/2012 PT 16.6* 06/20/2012 PRN and SCHEDULED MEDICATIONS: ??? DISCONTD: TRIPOLER melchor ??? warfarin 5 mg Oral Once ??? calcium carbonate 2 tablet Oral BID WC ??? DISCONTD: warfarin 5 mg Oral Once ??? ceFAZolin 2 g Intravenous Once ??? sodium chloride 0.9 % 5 mL Intravenous Q12H ??? senna-docusate 1-4 tablet Oral BID ??? ceFAZolin 1 g Intravenous Q8H ??? acetaminophen 1,000 mg Oral Q8H YARELY ??? esomeprazole 40 mg Oral Daily ??? warfarin 5 mg Oral Once ??? warfarin (COUMADIN) daily order reminder Oral Q24H ??? DISCONTD: TRIPOLER melchor ??? polyethylene glycol (MIRALAX) packet 17 g 17 g Oral Daily PRN ### ??? lactulose (CHRONULAC) 20 gram/30 mL oral solution 20-40 g 30-60 mL Oral Daily PRN ### ??? bisacodyl (DULCOLAX) EC tablet 10 mg 10 mg Oral BID PRN ### ??? bisacodyl (DULCOLAX) suppository 10 mg 10 mg Rectal Daily PRN ### ??? diphenhydrAMINE (BENADRYL) injection 25 mg 25 mg Intravenous Q30 Min PRN ### ??? ondansetron (ZOFRAN) injection 4 mg 4 mg Intravenous Q30 Min PRN ### ??? naloxone (NARCAN) injection 0.2 mg 0.2 mg Intravenous Q1 Min PRN ### ??? OXYcodone (ROXICODONE) immediate release tablet 5 mg 5 mg Oral Q4H PRN ### ??? OXYcodone (ROXICODONE) immediate release tablet 10 mg 10 mg Oral Q4H PRN ### ??? OXYcodone (ROXICODONE) immediate release tablet 15 mg 15 mg Oral Q4H PRN ### ??? DISCONTD: midazolam (VERSED) injection 0.5 mg 0.5 mg Intravenous Q1 Min PRN ### ??? DISCONTD: fentaNYL 50mcg/mL injection 25-50 mcg Intravenous Q10 Min PRN ### ??? DISCONTD: HYDROmorphone (DILAUDID) injection 0.2-0.4 mg 0.2-0.4 mg Intravenous Q5 Min PRN ### ??? DISCONTD: granisetron (KYTRIL) injection 1 mg 1 mg Intravenous Once PRN ### Comments: Right quad able to fire but weak. Catheter insertion sites clean and dry without signs of hematoma formation. Assessment: Appropriately functioning peripheral nerve catheter: yes Pain/cramping/burning in lateral thigh most likely ITB pain and will not be covered by our block. Plan and/or Recommendations: Catheter Plan: Catheter not removed. Tip Intact: not applicable Consult service will continue to follow patient. Comments: Plan to remove catheter tomorrow. PATO DEAN MD, MD Contact regional anesthesia team with any questions (pager [phone]). I have seen the patient and reviewed the resident's above history and I agree with the details as written. The assessment and plan were formulated in discussion with me and I agree with them as documented. I saw the patient later in the afternoon- I agree with Dr. Dean. He was resting and doing well this afternoon Pertinent History: FNC Pertinent Exam: Sensory block present Major issues addressed: Nerve catheter plan Plan: D/c in a.m. Gail Spaulding III, MD - 06/20/2012 6:28 AM EDT Orthopaedic Surgery Progress Note Surgery: Right TKA Patient Active Problem List Diagnoses Code ??? Constipation 564.00A ??? Dyslipidemia 272.4CR ??? GERD (gastroesophageal reflux disease) 530.81S ??? Hypertension 401.9AJ ??? Impaired fasting glucose 790.21 ??? Lung cancer 162.9M ??? S/p mitral valve repair V45.89FR ??? Multinodular goiter 241.1R ??? Osteoarthritis 715.90AN ??? Pancreatic cyst 577.2G ??? Prostate cancer 185A ??? Inguinal hernia recurrent unilateral 550.91B ??? Post-nasal drip 784.91B ??? 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 Anxiety 300.00E ??? S/P thyroidectomy V45.89FE ??? Dysphagia, unspecified 787.20 ??? Vocal cord paralysis 478.30K ??? DJD right knee s/p R TKA Dr. Quezada 06/19 715.96J S/Events: I had a good night. Facial discomfort resolved. Minimal pain, just sore. No chest pain, sob, nausea, emesis. O: Vitals: Temp: [36.6 ??C (97.9 ??F)-36.7 ??C (98.1 ??F)] Heart Rate: [63-67] Resp: [16-18] BP: (109-125)/(63-66) SpO2: [98 %-99 %] I/O last 3 completed shifts: In: 2717 [I.V.:2217; Other:500] Out: 1540 [Urine:1090; Other:250; Blood:200] I/O this shift: In: 2078 [P.O.:710; I.V.:1269; IV Piggyback:100] Out: 2139 [Urine:1700; Other:440] Exam: General: NAD, awake/alert Resp: Breathing comfortably Abd: S/NT/ND RLE: Dressing c/d/i. In cryocuff. Constavac attached and draining serosagnuinous fluid. TIP REMOVED-TIP INTACt. Motor intact to EHL, FHL, TA. Sensation intact, but dimished in foot/calf (patient had a block done pre-op). Brisk capillary refill distally. Labs: Recent Labs Basename 06/20/12 0358 ??? WBC 8.2 ??? HGB 10.6* ??? HCT 31.3* ??? PLATELET 147 ??? NA 137 ??? K 4.2 ??? CL 104 ??? CO2 29 ??? BUN 15 ??? CREATININE 0.84 A/P: 72 y.o. year old male POD#1 s/p right TKA. Stable. Activity: WBAT with assist devices darwin all times PT daily Anticoagulation: Coumadin Dressing: Mepilex dressing x7 days. Inspect wound prior to discharge. Abx x 24 hours Rosario-d/c pod#1 Pain Control:TRIPOLER, Oral Dispo: Home vs PT per Rehab Follow up as scheduled Mane Thompson RN - 06/19/2012 6:47 PM EDT Patient arrived to floor via bed. Patient A&O x 3, lungs clear, heart rate regular. Patient has hypoactive bowel sounds and stats their last BM was on 06/19. Patient has a dressing to R Knee, noted to be clean dry and intact. Patient has an IV of LR infusing at 100 in to their R arm. Patient states their pain level is 310. Patient denies chest pain, shortness of breath or chest pain, numbness or tingling. Patient oriented to room, call dexter IS. 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 RN noticed pt c/o full sided pain, redness, mild tearing over left eye, with mild Headache pain in left head down the face to neck (MILD). No neurologic symptoms otherwise. No slurred speech, weakness, confusion, or any signs or symptoms of stroke. No complaints surrounding cornea or corneal abrasian. The patient isn't bothered much by these symptoms and he is sitting up and eating and hemodynamically stable. His cranial nerves are all intact. He does have mild conjunctival redness on the left. His face is normal otherwise and his vision is unchanged. Dr Ye was notified too. This does not appear to be a focal neurologic issue. He says it is improving. The ortho team came by as well. Interestingly, it fits into a cluster headache picture. He knows to immediately contact us with a change in symptoms, slurred speech, weakness, etc. We will follow. Catheter hooked up without incident. [facility] Regional Anesthesia Team [id number] Klaus Ponce MD - 06/19/2012 4:57 PM EDT Orthopaedic Surgery Post-Op Check Note Surgery: Right TKA Patient Active Problem List Diagnoses Code ??? Constipation 564.00A ??? Dyslipidemia 272.4CR ??? GERD (gastroesophageal reflux disease) 530.81S ??? Hypertension 401.9AJ ??? Impaired fasting glucose 790.21 ??? Lung cancer 162.9M ??? S/p mitral valve repair V45.89FR ??? Multinodular goiter 241.1R ??? Osteoarthritis 715.90AN ??? Pancreatic cyst 577.2G ??? Prostate cancer 185A ??? Inguinal hernia recurrent unilateral 550.91B ??? Post-nasal drip 784.91B ??? 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 Anxiety 300.00E ??? S/P thyroidectomy V45.89FE ??? Dysphagia, unspecified 787.20 ??? Vocal cord paralysis 478.30K ??? DJD right knee s/p R TKA Dr. Quezada 06/19 715.96J Patient seen: In PACU S/Events: Denies CP, SOB, nausea, vomiting, abd pain. Patient states that he has Right sided face & neck pain which seems to be improving since waking up from surgery. Facial movements remain symmetrical & intact, Sensation intact & symmetrical. Pain well controlled. O: Vitals: Temp: [36.2 ??C (97.2 ??F)-36.6 ??C (97.9 ??F)] Heart Rate: [60-65] Resp: [16] BP: (112-143)/(58-78) SpO2: [94 %-100 %] I/O this shift: In: 2600 [I.V.:2100; Other:500] Out: 990 [Urine:690; Other:100; Blood:200] Exam: General: NAD, awake/alert Resp: Breathing comfortably Abd: S/NT/ND RLE: Dressing c/d/i. In cryocuff. Constavac attached and draining serosagnuinous fluid. Motor intactto EHL, FHL, TA. Sensation intact, but dimished in foot/calf (patient had a block done pre-op). Brisk capillary refill distally. Labs: No results found for this basename: WBC:3,HGB:3,HCT:3,PLATELET:3,NA:3,K:3,CL:3,CO2:3,BUN:3,CREATININE:3 in the last 72 hours A/P: 72 y.o. year old male POD#0 s/p right TKA, progressing well with stable vitals and uop. - Orders reviewed - continue all post-operative care Lise Razo RN - 06/19/2012 4:21 PM EDT Admitted post procedure. Awake talking. Denies pain. No movement or sensation BLE. 1550 - C/O dull ache left medial cheek and left eyebrow area. Dr. Ye at Bedside to assess pt. 1630 - family at bedside. Dull ache continues. No facial droop or asymmetry. No metallic taste. Instructed on the use of the TRIPOLER. Verbalized understanding. Movement BLE noted. Tylenol given per order/ crushed per pt's request. 1700 - ambit pump started. C/O pain lateral R knee. Reminded of TRIPOLER instructions. States eye discomfort is better. Tolerates PO fluid and pudding. documented in this encounter H&P Notes Alessio Quezada - 06/19/2012 12:04 PM EDT The patient's history and physical exam have been reviewed and completed. There has been no intervalchange from that of the pre-operative history and physical exam done within the last 30 days. Alessio Quezada - 06/19/2012 12:04 PM EDT Patient Name: Katlin Mina Patient Age: 72 y.o. Birthdate: 1940 Admit date: 06/19/2012 Attending Physician: Alessio Quezada MD Documented 05/20/12 documented in this encounter Procedure Notes Provider, Scanning - 06/23/2012 11:07 AM EDTAssociated Order(s): SCAN DOC: IMPLANTABLE DEVICES; SCAN DOC: IMPLANTABLE DEVICES documented in this encounter Miscellaneous Notes Miscellaneous - Provider, Scanning - 06/23/2012 11:25 AM EDT Miscellaneous - Provider, Scanning - 06/23/2012 11:23 AM EDT Miscellaneous - Provider, Scanning - 06/23/2012 11:07 AM EDT Plan of Care - Tin Duenas RN - 06/21/2012 9:22 PM EDT Problem: Pressure Ulcer Risk (Using Jerry Scale) (Adult, Obstetric) Goal: Pressure Ulcer Risk (using Jerry Scale): Tissue Integrity Patient repositions in bed independently. Up to chair and ambulating in hallway with standby assist.Tolerating well. Right knee dressing clean dry and intact. Will continue to monitor. Problem: Pain, Acute (Adult, Obstetric) Goal: Acute Pain: Acceptable Pain Control/Comfort Level - Pain, Acute (Adult, Obstetric) Patient tolerating PO Dilaudid for pain. Patient states pain is tolerable with PRN Dilaudid. Patientaware to alert RN if pain not controlled with current pain medication. Will continue to monitor. Problem: Trauma/Injury Risk (Adult, Obstetric) Goal: Trauma/Injury Risk: Absence of Trauma/Injury/Falls Upper side rails to bed raised. Call light within patient reach. Patient instructed to call for nursing help when needing to get out of bed. Fall program maintained. Patient ambulating with standby assist using front wheeled walker. Steady gait, tolerating well. Will continue to monitor. Plan of Care - Gisell Feliz RN - 06/21/2012 2:34 PM EDT Problem: Knee Replacement, Total (Adult) Intervention: Infection Prevention Right knee with silver mepilex c/d/i. Mild swelling/tenderness. No redness/drainage. +CMST +PP. Off floor this am to rehab. Ambulating with walker. Gait steady with SBA. Afebrile through shift. Pain controlled with Dilaudid PO. Continue to monitor and assess for s/s infection. Intervention: Bowel Function Promotion Pt s/p R TKA on 06/19. Tolerating regular diet. No BM yet. Pericolace given per jan. Prune juice offered and given this afternoon. Abd soft with +bs. Passing flatus. Denies N/V. Will continue to monitor. Plan of Care - Tin Duenas RN - 06/20/2012 10:20 PM EDT Problem: Pressure Ulcer Risk (Using Jerry Scale) (Adult, Obstetric) Goal: Pressure Ulcer Risk (using Jerry Scale): Tissue Integrity Patient repositioning in bed independently, tolerating well. Sits on edge on bed independently to void. Acewrap dressing to right knee clean, dry and intact. Will continue to monitor. Problem: Pain, Acute (Adult, Obstetric) Goal: Acute Pain: Acceptable Pain Control/Comfort Level - Pain, Acute (Adult, Obstetric) Patient tolerating oral Dilaudid for pain management. Patient also currently has nerve block to right lower extremity. Patient states pain is tolerable with nerve block and PO dilaudid PRN. Patient aware to alert RN if pain not controlled with current pain medication. Will continue to monitor. Problem: Trauma/Injury Risk (Adult, Obstetric) Goal: Trauma/Injury Risk: Absence of Trauma/Injury/Falls Upper side rails to bed raised. Call light within patient reach. Patient instructed to call for nursing help when needing to get out of bed. Fall program maintained. Patient ambulating with one standbyassist using front wheeled walker. Tolerating well, steady gait. Will continue to monitor. Initial Assessments - Vicente Simmons, PT - 06/20/2012 7:56 AM EDT Physical Therapy Evaluation Total Knee Arthroplasty Patient Profile: Pt. is a 72 y.o. y.o. male admitted on 06/19/2012 by Alessio Pelletier MD for R TKA. PMH: Constipation Dyslipidemia GERD (gastroesophageal reflux disease) Hypertension Impaired fasting glucose Lung cancer S/p mitral valve repair Multinodular goiter Osteoarthritis Pancreatic cyst Prostate cancer Inguinal hernia recurrent unilateral Post-nasal drip Retrosternal goiter Anxiety S/P thyroidectomy Dysphagia, unspecified Vocal cord paralysis PSH: Past Surgical History Procedure Date ??? Created [...] INGUINAL, RECURRENT performed by NOREEN BOWIE at [facility] MAIN OR ??? Thyroidectomy=substernal, transcerv 11/30/2011 THYROIDECTOMY, INCL. SUBSTERNAL, CERVICAL APPROACH performed by FRANK MAC at [facility] MAIN OR ??? Somatosensory test, any/all per. nerves, trunk or head 11/30/2011 FACIAL NERVE MONITORING, SETUP performed by FRANK MAC at [facility] MAIN OR ??? Upper gi endoscopy, exam 01/29/2012 UPPER GI ENDOSCOPY performed by VICKI SON at [facility] ENDOSCOPY ??? Lung cancer surgery Partial removal of R lung Social History: Patient lives with his ex , she can be available. Has full flight of steps to enter with double rails, or three steps with rail if drives into his yard to get there. No DME currently. Precautions/Special Considerations: WBAT Post-operative course: Uneventful Subjective: Patient states ???I feel sick to my stomach I feel a pop or something when I'm bendingthe knee?? Objective: Vitals: SpO2: WNL on room air, HR 70s Most recent Hgb value: 10.6 Pain: Tolerable, does get a sudden pain at lateral knee (describes as a pop) with flexion at approx 60-70 degree range Range of Motion: AROM R knee extension = lacking ~ 5 degrees, flexion = ~75 degrees Strength: Quads weak today, and knee buckling with nearly every step using walker, requiring increased assistance. Can provide some firing for exercises but needs assist. Functional Mobility: Supine->sit n/t Sit->supine n/t Sit->stand mod assist Stand->sit min assist for leg positioning and cues for safe technique Gait: Ambulated 20 ft using walker with min to at times mod/max assist to remain upright. Gait pattern: Slow, step to, knee buckling with stance R side Recommend he keep with bed<>chair or commode until his block wears off more Today???s Treatment: 1. Brief Evaluation 2. Performed 10 reps each ankle pumps, quad sets, short arc quads, seated heel slides, and long arc quads. Pt in possession of handout illustrating the exercises and was instructed to perform them as able 3x per day. Informed Consent: The patient agrees to and understands the PT treatment plan and goals. Education: patient educated on Transfers, Exercise, Positioning, Precautions/protocol, Gait , Role of therapy and Discharge planning and verbalizes understanding. Patient status, treatment, and mobility recommendations discussed with nursing staff. Assessment: Pt is POD#1 R TKA. Pt. tolerated today???s session fairly. Feels a sharp pain with flexion, and is slightly nauseous throughout the session. Pt presents with pain, decreased ROM, strength, functional mobility, and gait skills. Pt will benefit from PT to address his/her functional deficits to restore prior level of function. Anticipate pt might need a rehabilitative setting at d/c.. Goals: (to be achieved in 1-3 days) Pt will be knowledgeable of prescribed exercises. Pt will demonstrate AROM knee extension 0-15 degrees and flexion 80 - 90 degrees. Pt will move supine<>sit indep. Pt will move sit<>stand indep. Pt will ambulate 200 feet using walker indep. Pt will negotiate flight steps w/rail using rail and crutches, or two rails. Plan: Patient to be seen daily for physical therapy to include Physical Therapy Evaluation, Therapeutic exercises and Therapeutic functional activities. Patient agrees to the plan as stated. Equipment needs: Rolling walker and Axillary crutches. Activity plan w/nursing assist (discussed with nursing staff): OOB to chair or commode with assist using walker Discharge Recommendations: Patient requires ongoing 24/ supervision. Patient would benefit from skilled therapy interventions to promote functional independence and safety while improving activity tolerance. Physical Therapist recommends: Occupational Therapy consult Total treatment time: 35 minutes Total timed treatment: 15 minutes VICENTE SIMMONS PT Pager: [phone] Op Note - Alessio Quezada - 06/19/2012 3:21 PM EDT [facility] Operative Note Patient Name: Katlin Mina : [id number] MR#: [id number] Case Date: 06/19/2012 Surgeon: Surgeon(s) and Role: * ALESSIO QUEZADA MD - Primary * GAIL SPAULDING III, MD - Resident-Surgeon Chief * PARAMJIT DAVIDSON MD - Resident-Surgeon John Preoperative diagnosis: DJD Right Knee Postoperative diagnosis: DJD Right Knee Procedure(s): @TOTAL KNEE ARTHROPLASTY MODIFIER PFC STABILIZED FIXED MODULAR DEPUY Anesthesia: spinal with femoral catheter Findings: djd Complications:nonets Estimated Blood Loss:200cc Drains: rosario 500cc davol tt 49min @ 275mm hg Implant Name Type Inv. Item Serial No. Carbon Capture Power Plant Operator Lot No. LRB No. Used Action CEMENT,BNE,SMARTSET MV,EO,40GM [id number]) - [id number] IMPLANTS CEMENT,BNE,SMARTSET MV,EO,40GM ([id number]) Depuy Electronic Scale Assembler And Tester - [id number] Right 1 Implanted INSERT,TIBL,STBLZD,4,10MM ([id number]) (AUTOREQ) - [id number] IMPLANTS INSERT,TIBL,STBLZD,4,10MM ([id number]) (AUTOREQ) Depuy Electronic Scale Assembler And Tester - [id number] Right 1 Implanted COMPONENT,TIBL,CO CR,CMNTD,4 ([id number]) (AUTOREQ) - [id number] IMPLANTS COMPONENT,TIBL,CO CR,CMNTD,4 ([id number]) (AUTOREQ) Depuy Electronic Scale Assembler And Tester - [id number] Right 1 Implanted COMPO,FEM,POS STB,RT,4 ([id number]) (AUTOREQ) - [id number] IMPLANTS COMPO,FEM,POS STB,RT,4 ([id number]) (AUTOREQ) Depuy Electronic Scale Assembler And Tester - [id number] Right 1 Implanted PATELLA,RND XSML,32MM ([id number]) (AUTOREQ) - [id number] IMPLANTS PATELLA,RND XSML,32MM ([id number]) (AUTOREQ) Depuy Electronic Scale Assembler And Tester - [id number] Right 1 Implanted Specimen knee parts Disposition: aroused from sedation, and taken to the recovery room in a stable condition Condition: doing well without problems INDICATIONS FOR PROCEDURE: This is a 72 y.o.-year-old male with degenerative joint disease of right knees. He has failed medical management and surgical treatment was offered. All risks and benefits ofthe surgery were discussed and he decided to proceed to the operating room. DESCRIPTION OF PROCEDURE: The patient was correctly identified in the same day holding area and proper operative site and consent were confirmed by the team. Anesthesia team placed bilateral femoral blocks. The patient was wheeled back to the operating room and placed in the supine position on the operating table after spinal anesthesia was administered. A sterile Rosario catheter was placed. All bony prominences were well padded. Preoperative antibiotics were given. A time-out was done to confirm patient, surgery, and site according to the [facility] [place] Protocol. A nonsterile tourniquet was placed high around the upper thigh. The lower extremity was then prepped and draped in the usual sterile [facility] ion. A 12-cm midline incision was marked over the anterior aspect of the patella. An Ioban dressing was then placed over the leg. The leg was exsanguinated and the tourniquet inflated to 275 mmHg whereit remained for a total of 49 minutes. A midline incision was performed and full thickness skin flaps were developed. Using a mid-vastus medial parapatellar arthrotomy, the knee joint was entered. A subperiosteal peal was carried around themedial tibial plateau. The patella was everted and the knee carefully flexed up.Portions of the infrapatellar fat pad were excised. The anterior horns of the menisci were sacrificed. The cruciate ligaments were sacrificed. Attention was first turned to the femur. The canal was entered using an awl followed by a step drill and T-handled canal finder. Care was taken to suction the hole between each step to reduce the risk of emboli. The intramedullary femoral guide peter was placed and set for a 9-mm distal resection with 7 degrees of valgus tilt. The cutting block was secured into place with pins. The intramedullary guide peter removed and an oscillating saw usedto perform the distal femoral cut. The sizing guide was placed and it was found that a 4 femur wouldbe the most appropriate size. The guide was pinned into 3 degrees of external rotation. The AP cutting block was placed and anterior and posterior and chamfer cuts were performed. A rongeur was used to remove peripheral osteophytes . The attention was now turned to the tibia. The menisci were resected with Bovie cautery. The extramedullary tibial alignment guide was placed and set for a 4mm resection off the more involved medial compartment. The cutting block was secured into place with minimal posterior slope. An oscillating saw was used to make a proximal tibia resection. Size 4 tibial tray was placed and found to give adequate coverage. Extension gap was assessed. The femoral component was then impacted into position and posterior osteophytes removed with a melchor elevator and pituitary. The tibial tray and 10mm polyethylene insert were placed and the knee was brought through range of motion and found to be stable. Femoral gap was deemed satisfactory Attention was now turned to the patella. Peripheral osteophytes and inflamed synovium were resectedusing a rongeur and bovie cautery. It was measured to be 21 mm thick. Approximately 8 mm of bone wasresected with an oscillating saw using a free hand technique. A sizing guide was placed and a 32 round button was most appropriate. The drill guide was placed and three peg holes carried out with a step drill. The patellar button was placed and patella reduced and brought through range of motion and found to be stable. All components were removed. Final preparation of the tibia was performed using a top hat and step drill followed by tibial broach. Extension gap was once again assessed and deemed to be appropriate. The knee was copiously irrigated with pulse lavage normal saline.Cement mixing was begun on the back table. Once ready, cement was placed on the tibia The tibial component was obtained and impacted intoposition. Cement was then placed on the femur, and the femoral component was impacted into position and all extra cement was removed. The polyethylene insert was then placed and the knee brought out into extension and axial load applied while the patella was cemented into place and held with a clamp. After the cement had polymerized, the knee was brought through range of motion and found to be stable. The knee was copiously irrigated with pulse lavage normal saline. The tourniquet was deflated and adequate hemostasis was obtained with Bovie cautery. Drain was placed through a separate superolateral stab incision and hooked up to the Klipfolioavac system. The arthrotomy was closed with 0 Vicryl. FINAL ROM 0-105. The wound was irrigated prior to final closure. The subcutaneous tissues were reapproximated with 2-0 Vicryl and 3-0 Vicryl. The skin was closed with 3-0 nylon. The wounds were cleansed and dried and sterile dressing consisting Mepilex, Kerlix, and a [id number] Ángel bandage was applied. Cryo/Cuff and Venodyne were applied. The patient was awoken from general anesthesia, transferred back to the hospital bed, and taken back to postanesthesia care unit in stable condition. All sponge and needle counts were correct at the end of the case. There were no obvious intraoperative complications. Dr. Quezada was present for the procedure. Discharge Summary - Alessio Quezada - 06/19/2012 3:15 PM EDT Department of Orthopaedic Medicine - Discharge Summary Patient Name: Katlin Mina Patient Age: 72 y.o. Birthdate: 1940 Admit date: 06/19/2012 Discharge date and time: 06/22/2012 Attending Physician: Alessio Quezada MD Discharge Diagnoses (Hospital Problems) and Secondary Diagnoses (Chronic Problems): Active Hospital Problems Diagnoses ??? DJD right knee s/p R TKA Dr. Quezada 06/19 Resolved Hospital Problems Diagnoses Date Resolved Active Non-Hospital Problems Diagnoses ??? Vocal cord paralysis ??? Dysphagia, unspecified [...] ??? Hypertension ??? Impaired fasting glucose ??? S/p mitral valve repair --Echocardiogram 2008 - mild [...] features. 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 [id number]; KRAS negative, EGFR negative --09/2010: CT scan - normal --02/2011: CT scan --09/2011: CT scan - negative annual CT's afterwards Operations:Case Date: 06/19/2012 Surgeon: Surgeon(s) and Role: * ALESSIO QUEZADA MD - Primary * GAIL SPAULDING III, MD - Resident-Surgeon Chief * PARAMJIT DAVIDSON MD - Resident-Surgeon John Procedure: RIGHT TOTAL KNEE ARTHROPLASTY Indication:DJD Hospital Course:The post operative course was per the total Knee arthroplasty pathway. DVT prophylaxis: coumadin. Patient began rehab on POD#1 w/ full weight bearing RLE remembering to use protection (walker/crutches) at all times for balance and protection. Drains were removed POD#1. Rosario was removed POD#1 and patient was voiding spontaneously. Wound inspected POD#3 and found to be benign. Patient did have a bowel movement before discharge. By POD#3, the patient was medically stable and was cleared for safe discharge to rehab. Important Studies and Lab Data: Labs: Lab Results Component Value Date WBC 8.3 06/22/2012 HGB 9.7* 06/22/2012 HCT 28.3* 06/22/2012 MCV 99.3* 06/22/2012 Discharge Conditions/Prognosis:Stable, awake, and alert. Mobilizing with walker/crutches, pain controlled on oral medications. Patient Vitals in the past 8 hrs: BP Temp Pulse Resp SpO2 /11/12 0949 114/43 mmHg 36.8 ??C (98.2 ??F) 61 16 - 06/22/12 0515 97/56 mmHg 36.5 ??C (97.7 ??F) 71 16 99 % Discharge to:rehab Discharge Medications: Current Discharge Medication List New Meds Dose Details acetaminophen (TYLENOL) 500 mg tablet 1,000 mg Take 2 tablets by mouth every 8 hours. Qty: Refills: warfarin (COUMADIN) 5 mg tablet 5 mg Take 1 tablet by mouth once for 1 dose. Qty: Refills: senna-docusate (PERICOLACE) 8.6-50 mg per tablet 1-4 tablets Take 1-4 tablets by mouth 2 times daily. Qty: Refills: HYDROmorphone (DILAUDID) 2 mg tablet 2-6 mg Take 1-3 tablets by mouth every 4 hours as needed for Pain. Qty: 30 tablet Refills: 0 Continued medications, unchanged Dose Details omeprazole (PRILOSEC) 10 mg capsule 10 mg Take 10 mg by mouth 2 times daily. Qty: Refills: levothyroxine (SYNTHROID) 125 mcg tablet 125 mcg Take 1 tablet by mouth every morning. Qty: 30 tablet Refills: 12 atenolol (TENORMIN) 50 mg tablet 25 mg Take 0.5 tablets by mouth daily. Qty: 30 tablet Refills: 3 furosemide (LASIX) 20 mg tablet 40 MG = 2 Tablet(s) PO Once daily and PRN swelling Qty: Refills: terazosin (HYTRIN) 2 mg capsule 4 MG = 2 Capsule(s) PO QHS Qty: Refills: Medications STOPPED Dose cephALEXin (KEFLEX) 500 mg capsule 500 mg potassium chloride (K-DUR) 10 mEq tablet 10 mEq DOCUSATE SODIUM (COLACE ORAL) naproxen sodium (ALEVE) 220 mg tablet 220 mg Updated Allergies/ADRs: Allergies Allergen Reactions ??? Lactose Other (See Comments) Sneezing Orders for Rehab/Ambulatory Providers: Physician orders- KNEE rehab: 1. PT/INR to dose coumadin 2. Coumadin dose today = 5 mg 3. Activity: Full weight bearing as tolerated using walker/crutches at all times for balance and protection. Wear bilateral GREGOR hose to knees - remove at least once per day to inspect skin 4. Diet: Normal, but increase intake of fluids and fiber while on narcotic pain meds 5. Staple/suture removal-14 days after surgery (approximately July 03) May shower , but do not rub the dressing, and pat dry.. Remove your operative dressing 7 days from surgery (June 26). When it is removed you can leave the incision open to air or cover it with a light dressing (using the Tubifast to hold the dressing in place). If lots of drainage (and it is before June 26), remove this operative dressing and replace it with dry sterile gauze covered with Tubifast to hold the dressing in place. Continue with daily dressing changes (and as needed) until the drainage stops, then remove the dressing and leave the incision open to air or lightly covered. Callorthopaedic surgeon (#[phone]) with any fevers, chills, sweats, redness or discharge from the wound. 8. Aggressive bowel regimen- 9. Physical Therapy/Occupational therapy: twice a day every day. 10. DO NOT place a pillow behind the knee - encourage extension of the operated knee by placing pillow under the heel or lower leg or placing the pillow lengthwise along the leg. 11. If the INR level is ever above 3.5 patient should not participate in aggressive Physical therapyexercises - can mobilize/ambulate. This will decrease the possibility of more bleeding into the joint. Once the INR is less than 3.5 Physical therapy can be resumed. 12. When the patient is discharged from rehab to home please FAX a copy of the coumadin/INR record to [facility] - [phone]. Instructions Given to Patient at Discharge: Provider Instructions Activity: You can full weight bear on your right leg remembering to use a walker or crutches at all times for balance and protection. Flexion AND extension are important to work on at home. You should NOT place a pillow under your knee. To help with extension you can place a pillow under your heel or lower leg or placed lengthwise along the leg. Again DO NOT place a pillow under the operated knee forcomfort. You should wear the GREGOR hose to knee bilaterally until you are seen in followup. Remove these at least once per day to inspect your skin. Coumadin flow sheet: Date Notes INR Coumadin dose (mg) 06/19 day of operation 1.2 5 06/20 POD 1 1.3 5 06/21 POD 2 1.6 5 06/22 D/c POD 3 2.0 5 Anti-coagulation followup: (for rehab bound pts) 1. Your coumadin level or INR target range is 2-3. This will need to be checked while you are at rehab by your PCP or the rehab physician. 3. When you are discharged from rehab to home this will still need to be checked by the Visiting Nurse at least twice per week thereafter (usually every Sunday and ). The INR should be reportedto the [facility] Ortho clinic at [phone], and you will be informed of any needed changes in your Coumadin dose. 4. If your INR level is ever above 3.5 you should not participate in aggressive Physical therapy exercises - you can ambulate/mobilize. This will decrease the possibility of more bleeding into your joint. Once your INR is less than 3.5 you can resume Physical therapy. One of the Orthopedic nurses willcall you with further instructions as needed. 5. You will be on Coumadin for 4 weeks. On July 18, STOP the Coumadin and begin Aspirin 325mg twice a day until you are seen in followup with Alessio Pelletier MD. Diet: Normal but increase your intake of fluids and fiber while you are on narcotic pain meds to prevent constipation. Driving: None until you are cleared to do so by your orthopedic surgeon. Ideally you should not drive while you are on narcotic pain medications as they can impede your judgement and reaction time. Call you surgeon with any questions/concerns. Medications: 1. The pain medication you are on can cause constipation so increase your intake of fluids and fiberwhile you are taking them. The stool softener, sennakot, that has been prescribed can also be taken to facilitate a bowel movement. You can also take an wxes-wvl-vhxbizb medication, miralax to help if needed. 2. If you need a renewal on your narcotic pain medication, you need to give the Orthopedic clinic enough time to process your request. This can take up to three days, so plan accordingly. 3. The charts below will let you know of any medication changes that might have occured during your hospital stay. Wound:1. Suture/staple removal 12-14 days post-op. (approx July 03). 2. You may shower , but do not rub the dressing, and pat dry. 3. Remove your operative dressing 7 days from your surgery (June 26). When it is removed you canleave the incision open to air or cover it with a light dressing (using the Tubifast to hold the dressing in place). 4. If you have lots of drainage when you get home (and it is before June 26), remove this operative dressing and replace it with dry sterile gauze covered with Tubifast to hold the dressing in place. Continue with daily dressing changes (and as needed) until the drainage stops, then remove the dres sing and leave the incision open to air or lightly covered. 5. Call your orthopaedic surgeon (#[phone]) with any fevers, chills, sweats, redness or discharge from the wound. Misc:1. Remember that ICE and elevation are very important after surgery to help decrease swelling and control pain. Use ICE for 20-30 minutes at a time and keep your leg elevated as much as possible. 2. Please go to the radiology department, for xrays one hour prior to your followup appointment Future Appointments and Orders Future Appointments: Provider: Department: Dept Phone: Center: 07/26/2012 2:10 PM Alessio Quezada MD [facility] [phone] None Joint Appt Health Question Three C [facility] 3c [phone] None 09/18/2012 1:10 PM Arabella Rob MD [facility] [phone] [facility] Joint Appt Health Questionnaire [facility] [phone] [facility] Future Orders Please Complete By Expires REFERRAL TO ANTICOAGULATION MONITORING [[id number] Custom] Process Instructions: If no progress note charted, please enter Clinical details in comments. Scheduling Instructions: Comments: To rehab Sat 06/22 Questions: Responses: Responsible Group [facility] ANTICOAG Reason for referral coumadin dose Risk Factors: Next due INR 06/23/2012 INR Goal 2.0-3.0 Target End Date 07/18/2012 Provider Contact Information: Primary Care Provider: ARABELLA ROB MD, MD [phone] Hospital Attending: Alessio Quezada MD Department of Orthopaedic Surgery For questions regarding this document or issues relating to this hospitalization on the Medical Service, please contact your inpatient physician through the [facility] Outboard Technician . Issues after hours and on weekends will be handled by the Hospitalist staff on-call. Signed: DAMION FORMAN APRN 06/22/2012 OR Attestation - Alessio Quezada - 06/19/2012 2:53 PM EDT Attestation: Case Date: 06/19/2012 I was present and I participated during the entire procedure (does not need to include opening and closing). ALESSIO QUEZADA MD 06/19/2012 I was the attending physician supervising the resident in the above care and I was present with the resident for the melchor component(s) of the procedure and remained immediately available throughout the remainder. Brief Op Note - Alessio Quezada - 06/19/2012 2:51 PM EDT Brief Operative Note Patient Name: Katlin Mina : [id number] MR#: [id number] Case Date: 06/19/2012 Surgeon: Surgeon(s) and Role: * ALESSIO QUEZADA MD - Primary * GAIL SPAULDING III, MD - Resident-Surgeon Chief * PARAMJIT DAVIDSON MD - Resident-Surgeon John Preoperative diagnosis: tkr Postoperative diagnosis: tkr Procedure(s): @TOTAL KNEE ARTHROPLASTY MODIFIER PFC STABILIZED FIXED MODULAR DEPUY Anesthesia: spinal with femoral catheter Findings: djd Complications:nonets Estimated Blood Loss:200cc Drains: rosario 500cc davol tt 49min @ 275mm hg Coumadin prophylaxsis Implant Name Type Inv. Item Serial No. Carbon Capture Power Plant Operator Lot No. LRB No. Used Action CEMENT,BNE,SMARTSET MV,EO,40GM ([id number]) - [id number] IMPLANTS CEMENT,BNE,SMARTSET MV,EO,40GM ([id number]) Depuy Electronic Scale Assembler And Tester - [id number] Right 1 Implanted INSERT,TIBL,STBLZD,4,10MM ([id number]) (AUTOREQ) - [id number] IMPLANTS INSERT,TIBL,STBLZD,4,10MM ([id number]) (AUTOREQ) Depuy Electronic Scale Assembler And Tester - [id number] Right 1 Implanted COMPONENT,TIBL,CO CR,CMNTD,4 ([id number]) (AUTOREQ) - [id number] IMPLANTS COMPONENT,TIBL,CO CR,CMNTD,4 ([id number]) (AUTOREQ) Depuy Electronic Scale Assembler And Tester - [id number] Right 1 Implanted COMPO,FEM,POS STB,RT,4 ([id number]) (AUTOREQ) - [id number] IMPLANTS COMPO,FEM,POS STB,RT,4 ([id number]) (AUTOREQ) Depuy Electronic Scale Assembler And Tester - [id number] Right 1 Implanted PATELLA,RND XSML,32MM ([id number]) (AUTOREQ) - [id number] IMPLANTS PATELLA,RND XSML,32MM ([id number]) (AUTOREQ) Depuy Electronic Scale Assembler And Tester - 3527 [id number] Right 1 Implanted Specimen knee parts Disposition: aroused from sedation, and taken to the recovery room in a stable condition Condition: doing well without problems (Please see the Surgical Encounter Summary for any Implant and Specimen details pertinent to this patient.) Miscellaneous - Provider, Scanning - 06/19/2012 11:47 AM EDT Miscellaneous - Provider, Scanning - 06/19/2012 11:47 AM EDT documented in this encounter Plan of Treatment Upcoming Encounters Date Type Specialty Care Team Description 10/11/2022 Office Visit Dermatology Virgilio Mckeon MD [facility] DR CHRISTIANO HENSON-DERMAT OLOGY [place], [place] [address] (Wo rk) 10/16/2022 Office Visit Otolaryngology Frank Buchanan MD [facility] OTOLARYNGOLOGY Sarah EPT. [place], [place] [address] (Wo rk) 11/29/2022 Appointment Hematology and Oncology 11/29/2022 Office Visit Radiation Oncology Emerald Leyva APRN [facility] RADIATION ONCCESAR GY [place], [place] [address] (Wo rk) Scheduled Referrals Name Type Priority Associated Order Schedule Diagnoses REFERRAL TO Outpatient Routine DJD (degenerative Ordered: ANTICOAGULATION Referral joint disease) of 012 MONITORING knee documented as of this encounter Procedures Procedure Name Priority Date/Time Associated Comments Diagnosis IMPLANTABLE DEVICES 06/23/2012 11:07 Resu lts for this SCAN AM EDT procedure are i n the results section. HEMOGRAM STAT 06/22/2012 7:24 AM Results f or this EDT procedure are i n the results section. DIFFERENTIAL, Routine 06/22/2012 4:54 AM Results for this AUTOMATED EDT procedure are i n the results section. PROTHROMBIN TIME Routine 06/22/2012 4:54 AM Resul ts for this EDT procedure are i n the results section. CBC (WITH DIFF) Routine 06/22/2012 4:54 AM Result s for this EDT procedure are i n the results section. BASIC METABOLIC PANEL Routine 06/22/2012 4:54 AM Results for this (NON-FASTING) EDT procedure are in the results section. NUCLEATED RED BLOOD Routine 06/21/2012 4:19 AM Re sults for this CELLS EDT procedure are i n the results section. DIFFERENTIAL, Routine 06/21/2012 4:19 AM Results for this AUTOMATED EDT procedure are i n the results section. PROTHROMBIN TIME Routine 06/21/2012 4:19 AM Resul ts for this EDT procedure are i n the results section. CBC (WITH DIFF) Routine 06/21/2012 4:19 AM Result s for this EDT procedure are i n the results section. BASIC METABOLIC PANEL Routine 06/21/2012 4:19 AM Results for this (NON-FASTING) EDT procedure are in the results section. DIFFERENTIAL, Routine 06/20/2012 3:58 AM Results for this AUTOMATED EDT procedure are i n the results section. PROTHROMBIN TIME Routine 06/20/2012 3:58 AM Resul ts for this EDT procedure are i n the results section. CBC (WITH DIFF) Routine 06/20/2012 3:58 AM Result s for this EDT procedure are i n the results section. BASIC METABOLIC PANEL Routine 06/20/2012 3:58 AM Results for this (NON-FASTING) EDT procedure are in the results section. PROTHROMBIN TIME Routine 06/19/2012 8:14 PM Resul ts for this EDT procedure are i n the results section. SURGICAL PATHOLOGY Routine 06/19/2012 3:12 PM Res ults for this REPORT EDT procedure are i n the results section. SPECIMEN TO PATHOLOGY Routine 06/19/2012 2:34 PM Results for this EDT procedure are i n the results section. 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 TOTAL KNEE 06/19/2012 12:55 DJD (degenerative ARTHROPLASTY (WRVU PM EDT joint disease) of 20.72) knee documented in this encounter Results SCAN DOC: IMPLANTABLE DEVICES (06/23/2012 11:07 AM EDT) Narrative 06/23/2012 11:07 AM EDT Procedure Note Provider, Scanning - 06/23/2012 11:07 AM EDT Scanning Provider MEDIA MGR SCAN EXT ORDR/RSLT (ABNORMAL) Hemogram (06/22/2012 7:24 AM EDT) P athologist Signature WBC 8.3 4.0 - 10.0 CERNER x10(3)/mcL MILLENNIUM RBC 2.85 (L) 4.63 - CERNER 6.08 MILLENNIUM x10(6)/mcL Hemoglobin 9.7 (L) 13.7 - CERNER 17.5 gm/dL MILLENNIUM Hematocrit 28.3 (L) 40.0 - CERNER 51.0 % MILLENNIUM MCV 99.3 (H) 79.0 - CERNER 92.0 fL MILLENNIUM MCH 34.0 (H) 25.6 - CERNER 32.2 pg MILLENNIUM MCHC 34.3 32.0 - CERNER 36.5 gm/dL MILLENNIUM Platelets 150 145 - 370 CERNER x10(3)/mcL MILLENNIUM RDWSD 50.9 (H) 35.0 - CERNER 46.0 fL MILLENNIUM RDWCV 14.0 10.9 - CERNER 14.4 % MILLENNIUM MPV 10.2 9.0 - 12.0 CERNER fL MILLENNIUM Specimen Anatomical Collection Method Collection Time Receive d Time (Source) Location / / Volume Laterality Blood specimen 06/22/2012 7:24 AM 012 7:32 (specimen) EDT AM EDT Resulting Agency Comment Spec In Lab Alessio Quezada MD HEMATOLOGY ORDERABLES Performing Organization Address City/State/[place] [address] CERNER MILLENNIUM (ABNORMAL) DIFFERENTIAL, AUTOMATED (06/22/2012 4:54 AM EDT) Patholo gist Method Time Signature Neutrophils % 69.6 34.0 - CERNER 71.0 % MILLENNIUM Neutr Abs (ANC) 6.28 1.50 - CERNER 6.30 MILLENNIUM x10(3)/mc L Lymphocytes % 13.3 (L) 19.0 - CERNER 53.0 % MILLENNIUM Lymphocytes Abs 1.2 1.0 - 3.6 CERNER x10(3)/mc MILLENNIUM L Monocytes % 15.1 (H) 4.0 - CERNER 13.0 % MILLENNIUM Monocyte Abs 1.4 (H) 0.2 - 1.0 CERNER x10(3)/mc MILLENNIUM L Eosinophils % 1.8 0.0 - 7.0 CERNER % MILLENNIUM Eosinophils Abs 0.2 0.0 - 0.5 CERNER x10(3)/mc MILLENNIUM L Basophils % 0.1 0.0 - 2.0 CERNER % MILLENNIUM Basophils Abs 0.0 0.0 - 0.2 CERNER x10(3)/mc MILLENNIUM L Immature Gran % 0.10 0.00 - CERNER 0.66 % MILLENNIUM Comment: [...] Location / / Volume Laterality Blood specimen 06/22/2012 4:54 AM 012 5:10 (specimen) EDT AM EDT Alessio Quezada MD HEMATOLOGY ORDERABLES Performing Organization Address City/State/[place] [address] CERNER MILLENNIUM (ABNORMAL) Prothrombin Time (06/22/2012 4:54 AM EDT) P athologist Signature PT 23.0 (H) 11.9 - 14.7 CERNER sec MILLENNIUM Comment: [facility] Transfusion Committee Guidelines: I NR less than 2.0, PTT less than OR equal to 43.5 seconds, or Fibrinogen gre ater than or equal to 100 mg/dl indicate adequate procoagulant activity for hemostasis in patients without underlying bleeding disorders. INR 2.0 (H) 0.9 - 1.1 CERNER MILLENNIUM Specimen Anatomical Collection Method Collection Time Receive d Time (Source) Location / / Volume Laterality Blood specimen 06/22/2012 4:54 AM 012 5:10 (specimen) EDT AM EDT Resulting Agency Comment Spec In Lab Alessio Quezada MD HEMATOLOGY ORDERABLES Performing Organization Address City/State/ZIP Code Lisandra e Ned PANIAGUA [place] [id number] CERNER MILLENNIUM (ABNORMAL) Basic Metabolic Panel (non-fasting) (06/22/2012 4:54 AM EDT) athologist Signature Glucose Lvl 126 60 - 199 CERNER mg/dL MILLENNIUM Comment: Diabetes: >=200 mg/dL plus symp toms BUN 13 10 - 20 mg/dL CERNER MILLENNIU M Creatinine 0.87 0.80 - 1.50 mg/dL CERNER MILL ENNIUM Comment: Please note that the pediatric reference intervals supplied above were not validated at [facility]. Results from pediatri c patients should be interpreted in conjunction to the patient's age, height and muscle mass. Sodium 137 135 - 145 mmol/L CERNER PATRICK NIUM Potassium 4.0 3.5 - 5.0 mmol/L CERNER PATRICK NIUM Comment: Please note: ??Patients with WBC >100,00 0 may have falsely elevated Potassium levels. ??For accurate Potassium quantif ication in these patients send serum separator tube (gold top) for subsequent determinations. ??Contact the Clinical Chemistry Laboratory if there are any qu estions. Chloride 102 98 - 107 mmol/L CERNER MILLENN IUM CO2 30 22 - 31 mmol/L CERNER MILLENNI UM Anion Gap 5 5 - 15 mmol/L CERNER MILLENNIU M Calcium 8.4 (L) 8.5 - 10.5 mg/dL CERNER PATRICK NIUM [...] Location / / Volume Laterality Blood specimen 06/22/2012 4:54 AM 012 5:10 (specimen) EDT AM EDT Resulting Agency Comment Spec In Lab Alessio Quezada MD CHEMISTRY ORDERABLES Performing Organization Address City/State/ZIP Code Phon e Number [place] [id number] CERNER MILLENNIUM (ABNORMAL) CBC (with Diff) (06/22/2012 4:54 AM EDT) P athologist Signature WBC 9.0 4.0 - 10.0 CERNER x10(3)/mcL MILLENNIUM RBC 2.70 (L) 4.63 - CERNER 6.08 MILLENNIUM x10(6)/mcL Hemoglobin 8.9 (L) 13.7 - CERNER 17.5 gm/dL MILLENNIUM Comment: Called by: [facility], Read back by: JUNITO NINO, Date-Time: 06-22-12 05:33. Nurse said ok to enter Hematocrit 26.5 (L) 40.0 - 51.0 % CERNER MILLENNI UM MCV 98.1 (H) 79.0 - 92.0 fL CERNER MILLENNI UM MCH 33.0 (H) 25.6 - 32.2 pg CERNER MILLENNI UM MCHC 33.6 32.0 - 36.5 gm/dL CERNER MILLE NNIUM Platelets 156 145 - 370 x10(3)/mcL CERNER AR LLENNIUM RDWSD 49.7 (H) 35.0 - 46.0 fL CERNER MILLENNI UM RDWCV 14.0 10.9 - 14.4 % CERNER MILLENNIU M MPV 10.5 9.0 - 12.0 fL CERNER MILLENNIU M Specimen Anatomical Collection Method Collection Time Receive d Time (Source) Location / / Volume Laterality Blood specimen 06/22/2012 4:54 AM 012 5:10 (specimen) EDT AM EDT Resulting Agency Comment Spec In Lab Alessio Quezada MD HEMATOLOGY ORDERABLES Performing Organization Address City/State/[place] [address] CERNER MILLENNIUM (ABNORMAL) DIFFERENTIAL, AUTOMATED (06/21/2012 4:19 AM EDT) [facility] Method Time Signature Neutrophils % 71.5 (H) 34.0 - CERNER 71.0 % MILLENNIUM Neutr Abs (ANC) 8.35 (H) 1.50 - CERNER 6.30 MILLENNIUM x10(3)/mc L Lymphocytes % 9.7 (L) 19.0 - CERNER 53.0 % MILLENNIUM Lymphocytes Abs 1.1 1.0 - 3.6 CERNER x10(3)/mc MILLENNIUM L Monocytes % 17.0 (H) 4.0 - CERNER 13.0 % MILLENNIUM Monocyte Abs 2.0 (H) 0.2 - 1.0 CERNER x10(3)/mc MILLENNIUM L Eosinophils % 1.5 0.0 - 7.0 CERNER % MILLENNIUM Eosinophils Abs 0.2 0.0 - 0.5 CERNER x10(3)/mc MILLENNIUM L Basophils % 0.2 0.0 - 2.0 CERNER % MILLENNIUM Basophils Abs 0.0 0.0 - 0.2 CERNER x10(3)/mc MILLENNIUM L Immature Gran % 0.10 0.00 - CERNER 0.66 % MILLENNIUM Comment: [...] Location / / Volume Laterality Blood specimen 06/21/2012 4:19 AM 012 4:28 (specimen) EDT AM EDT Alessio Quezada MD HEMATOLOGY ORDERABLES Performing Organization Address City/State/ZIP Code Phon e Number [address] CERNER MILLENNIUM NUCLEATED RED BLOOD CELLS (06/21/2012 4:19 AM EDT) P athologist Signature nRBC % Auto 0.0 0.0 - 0.2 CERNER % MILLENNIUM nRBC Abs Auto 0.000 0.000 - CERNER 0.012 MILLENNIUM x10(3)/mcL Specimen Anatomical Collection Method Collection Time Receive d Time (Source) Location / / Volume Laterality Blood specimen 06/21/2012 4:19 AM 012 4:28 (specimen) EDT AM EDT Resulting Agency Comment Spec In Lab Alessio Quezada MD HEMATOLOGY ORDERABLES Performing Organization Address City/State/ZIP Code Phon e Number [address] CERNER MILLENNIUM (ABNORMAL) Prothrombin Time (06/21/2012 4:19 AM EDT) P athologist Signature PT 19.1 (H) 11.9 - 14.7 CERNER sec MILLENNIUM Comment: [facility] Transfusion Committee Guidelines: I NR less than 2.0, PTT less than OR equal to 43.5 seconds, or Fibrinogen gre ater than or equal to 100 mg/dl indicate adequate procoagulant activity for hemostasis in patients without underlying bleeding disorders. INR 1.6 (H) 0.9 - 1.1 CERNER MILLENNIUM Specimen Anatomical Collection Method Collection Time Receive d Time (Source) Location / / Volume Laterality Blood specimen 06/21/2012 4:19 AM 012 4:28 (specimen) EDT AM EDT Resulting Agency Comment Spec In Lab Alessio Quezada MD HEMATOLOGY ORDERABLES Performing Organization Address City/State/[place] [address] CERNER MILLENNIUM Basic Metabolic Panel (non-fasting) (06/21/2012 4:19 AM EDT) P athologist Signature Glucose Lvl 131 60 - 199 CERNER mg/dL MILLENNIUM Comment: Diabetes: >=200 mg/dL plus symp toms BUN 14 10 - 20 mg/dL CERNER MILLENNIU M Creatinine 0.86 0.80 - 1.50 mg/dL CERNER MILL ENNIUM Comment: Please note that the pediatric reference intervals supplied above were not validated at [facility]. Results from pediatri c patients should be interpreted in conjunction to the patient's age, height and muscle mass. Sodium 136 135 - 145 mmol/L CERNER PATRICK NIUM [...] - 107 mmol/L CERNER MILLENN IUM CO2 26 22 - 31 mmol/L CERNER MILLENNI UM Anion Gap 9 5 - 15 mmol/L CERNER MILLENNIU M Calcium 8.7 8.5 - 10.5 mg/dL MARIAMA GUDINO Comment: result rechecked-lr Estimated GFR >60 >=60 MARIAMA DAMONKATERINESadafGenaro Lexy Comment: The National Kidney Disease Education Pr [...] Location / / Volume Laterality Blood specimen 06/21/2012 4:19 AM 012 4:28 (specimen) EDT AM EDT Resulting Agency Comment Spec In Lab Alessio Quezada MD CHEMISTRY ORDERABLES Performing Organization Address City/[facility]/[place]IP [place] [address] CERNER MILLENNIUM (ABNORMAL) CBC (with Diff) (06/21/2012 4:19 AM EDT) P athologist Signature WBC 11.7 (H) 4.0 - 10.0 CERNER x10(3)/mcL MILLENNIUM RBC 3.39 (L) 4.63 - CERNER 6.08 MILLENNIUM x10(6)/mcL Hemoglobin 11.4 (L) 13.7 - CERNER 17.5 gm/dL MILLENNIUM Hematocrit 33.4 (L) 40.0 - CERNER 51.0 % MILLENNIUM MCV 98.5 (H) 79.0 - CERNER 92.0 fL MILLENNIUM MCH 33.6 (H) 25.6 - CERNER 32.2 pg MILLENNIUM MCHC 34.1 32.0 - CERNER 36.5 gm/dL MILLENNIUM Platelets 180 145 - 370 CERNER x10(3)/mcL MILLENNIUM RDWSD 49.0 (H) 35.0 - CERNER 46.0 fL MILLENNIUM RDWCV 14.0 10.9 - CERNER 14.4 % MILLENNIUM MPV 10.9 9.0 - 12.0 CERNER fL MILLENNIUM Specimen Anatomical Collection Method Collection Time Receive d Time (Source) Location / / Volume Laterality Blood specimen 06/21/2012 4:19 AM 012 4:28 (specimen) EDT AM EDT Resulting Agency Comment Spec In Lab Alessio Quezada MD HEMATOLOGY ORDERABLES Performing Organization Address City/State/ZIP Code Phon e Number [address] CERNER MILLENNIUM (ABNORMAL) DIFFERENTIAL, AUTOMATED (06/20/2012 3:58 AM EDT) Patholo gist Method Time Signature Neutrophils % 74.3 (H) 34.0 - CERNER 71.0 % MILLENNIUM Neutr Abs (ANC) 6.12 1.50 - CERNER 6.30 MILLENNIUM x10(3)/mc L Lymphocytes % 11.4 (L) 19.0 - CERNER 53.0 % MILLENNIUM Lymphocytes Abs 0.9 (L) 1.0 - 3.6 CERNER x10(3)/mc MILLENNIUM L Monocytes % 13.7 (H) 4.0 - CERNER 13.0 % MILLENNIUM Monocyte Abs 1.1 (H) 0.2 - 1.0 CERNER x10(3)/mc MILLENNIUM L Eosinophils % 0.4 0.0 - 7.0 CERNER % MILLENNIUM Eosinophils Abs 0.0 0.0 - 0.5 CERNER x10(3)/mc MILLENNIUM L Basophils % 0.1 0.0 - 2.0 CERNER % MILLENNIUM Basophils Abs 0.0 0.0 - 0.2 CERNER x10(3)/mc MILLENNIUM L Immature Gran % 0.10 0.00 - CERNER 0.66 % MILLENNIUM Comment: [...] Location / / Volume Laterality Blood specimen 06/20/2012 3:58 AM 012 4:10 (specimen) EDT AM EDT Alessio Quezada MD HEMATOLOGY ORDERABLES Performing Organization Address City/State/[place] [address] CERNER MILLENNIUM (ABNORMAL) Prothrombin Time (06/20/2012 3:58 AM EDT) P athologist Signature PT 16.6 (H) 11.9 - 14.7 CERNER sec MILLENNIUM Comment: [facility] Transfusion Committee Guidelines: I NR less than 2.0, PTT less than OR equal to 43.5 seconds, or Fibrinogen gre ater than or equal to 100 mg/dl indicate adequate procoagulant activity for hemostasis in patients without underlying bleeding disorders. INR 1.3 (H) 0.9 - 1.1 CERNER MILLENNIUM Specimen Anatomical Collection Method Collection Time Receive d Time (Source) Location / / Volume Laterality Blood specimen 06/20/2012 3:58 AM 012 4:10 (specimen) EDT AM EDT Resulting Agency Comment Spec In Lab Alessio Quezada MD HEMATOLOGY ORDERABLES Performing Organization Address City/State/[place] [address] CERNER MILLENNIUM (ABNORMAL) Basic Metabolic Panel (non-fasting) (06/20/2012 3:58 AM EDT) athologist Signature Glucose Lvl 110 60 - 199 CERNER mg/dL MILLENNIUM Comment: Diabetes: >=200 mg/dL plus symp toms BUN 15 10 - 20 mg/dL CERNER MILLENNIU M Creatinine 0.84 0.80 - 1.50 mg/dL CERNER MILL ENNIUM Comment: Please note that the pediatric reference intervals supplied above were not validated at [facility]. Results from pediatri c patients should be interpreted in conjunction to the patient's age, height and muscle mass. Sodium 137 135 - 145 mmol/L CERNER PATRICK NIUM Potassium 4.2 3.5 - 5.0 mmol/L CERNER PATRICK NIUM Comment: Please note: ??Patients with WBC >100,00 0 may have falsely elevated Potassium levels. ??For accurate Potassium quantif ication in these patients send serum separator tube (gold top) for subsequent determinations. ??Contact the Clinical Chemistry Laboratory if there are any qu estions. Chloride 104 98 - 107 mmol/L CERNER MILLENN IUM CO2 29 22 - 31 mmol/L CERNER MILLENNI UM Anion Gap 4 (L) 5 - 15 mmol/L CERNER MILLENNIU M Calcium 7.8 (L) 8.5 - 10.5 mg/dL CERNER PATRICK NIUM [...] Location / / Volume Laterality Blood specimen 06/20/2012 3:58 AM 012 4:10 (specimen) EDT AM EDT Resulting Agency Comment Spec In Lab Alessio Quezada MD CHEMISTRY ORDERABLES Performing Organization Address City/State/[place] [address] [facility] (ABNORMAL) CBC (with Diff) (06/20/2012 3:58 AM EDT) P athologist Signature WBC 8.2 4.0 - 10.0 CERNER x10(3)/mcL MILLENNIUM RBC 3.17 (L) 4.63 - CERNER 6.08 MILLENNIUM x10(6)/mcL Hemoglobin 10.6 (L) 13.7 - CERNER 17.5 gm/dL MILLENNIUM Hematocrit 31.3 (L) 40.0 - CERNER 51.0 % MILLENNIUM MCV 98.7 (H) 79.0 - CERNER 92.0 fL MILLENNIUM MCH 33.4 (H) 25.6 - CERNER 32.2 pg MILLENNIUM MCHC 33.9 32.0 - CERNER 36.5 gm/dL MILLENNIUM Platelets 147 145 - 370 CERNER x10(3)/mcL MILLENNIUM RDWSD 48.7 (H) 35.0 - CERNER 46.0 fL MILLENNIUM RDWCV 13.6 10.9 - CERNER 14.4 % MILLENNIUM MPV 10.7 9.0 - 12.0 CERNER fL MILLENNIUM Specimen Anatomical Collection Method Collection Time Receive d Time (Source) Location / / Volume Laterality Blood specimen 06/20/2012 3:58 AM 012 4:10 (specimen) EDT AM EDT Resulting Agency Comment Spec In Lab Alessio Quezada MD HEMATOLOGY ORDERABLES Performing Organization Address City/State/[place] [address] CERNER MILLENNIUM (ABNORMAL) Prothrombin Time (06/19/2012 8:14 PM EDT) P athologist Signature PT 15.7 (H) 11.9 - 14.7 CERNER sec MILLENNIUM Comment: [facility] Transfusion Committee Guidelines: I NR less [...] Location / / Volume Laterality Blood specimen 06/19/2012 8:14 PM 012 8:19 (specimen) EDT PM EDT Resulting Agency Comment Spec In Lab Alessio Quezada MD HEMATOLOGY ORDERABLES Performing Organization Address City/State/ZIP Code [place] [address] CERNER MILLENNIUM SURGICAL PATHOLOGY REPORT (06/19/2012 3:12 PM EDT) [facility] Method Time Signature Surgical CERNER Pathology ? [facility] Report ? Provider: ?? ALESSIO QUEZADA ?? Pt. Name: ?? KATLIN SANZ ? Acc #: ?[id number] ?Pt. MRN: ?[id number] ? Col Date: ?? 06/19/2012 ?/Sex: ?1940,(72 years),Male ? Rec Date: ?? 06/19/2012 ?LOC: ?[id number] ? SURGICAL PATHOLOGY ? ---Pathologic Diagnosis--- ? Articular bone and soft tissue showing osteoarthritis , ? right knee. ?Gross surgical pathology examination. ? CR-0 ? 06/20/12 ? AJE ? 06/20/12 Verified by: ? Lencho Arroyo MD ? Pathologist ? (Electronic Si gnature) ? The attending pathologist whose signature appears o n this report has ? reviewed all diagnostic slides and has edited the uyen ss and/or ? microscopic portion of the report in rendering the fi nal pathologic ? diagnosis. ? ---Gross Description--- ? Labeled/Fixative: ? Right knee bone/soft tissue, fresh. ? Quantity/Size: ?Multiple, 9.0 x 7.0 x 5.0 cm in aggregate. ? Tissue Description: ?? Fragments of yellow-white, hard, irregular bone, ? cartilage and soft tissue. ??The articular surfaces ? are pink, granular, and pitted. ? Eburnation: ? Present. ? Osteophytes: ?Present. ? Sections/Processing: ??No sections are submitted. ??a je/SNS ? ---Clinical Information--- ? Specimen Submitted: ? A - Right knee bone/soft tissue ? Clinical History/Diagnosis: ? TKR Specimen (Source) Anatomical Collection Method Collection Time Re ceived Time Location / / Volume Laterality 06/19/2012 3:12 PM EDT Alessio Quezada MD PATHOLOGY/CYTOLOGY ORDERABLE S Performing Organization Address [facility]/ZIP Code Phon e Number [address] [facility] Specimen to Pathology (surgical or derm) (06/19/2012 2:34 PM EDT) Specimen Anatomical Collection Method Collection Time Receive d Time (Source) Location / / Volume Laterality AP Specimen 06/19/2012 2:34 PM 2 2:34 EDT PM EDT Narrative [facility] - 06/19/2012 2:34 PM E DT Specimen requisition ordered. ??Separate Pathology report to follow Alessio Quezada MD PATHOLOGY/CYTOLOGY ORDERABLE S Performing Organization Address City/[facility] Phon e Number [address] LABOR[address]ORY [facility] documented in this encounter Visit Diagnoses Diagnosis DJD (degenerative joint disease) of knee - Primary Osteoarthrosis, unspecified whether gene ralized or localized, lower leg documented in this encounter Administered Medications Inactive Administered Medications - up to 3 most recent administrations Medication Order MAR Action Action Date Dose Rate Site acetaminophen (TYLENOL) tablet Given 06/20/2012 2:00 PM EDT 1,00 0 mg 1,000 mg 1,000 mg, Oral, EVERY 8 HOURS SCHEDULED, First dose on Sun06/19/12 at 1700, Until Discontinued, Maximum dose of acetaminophen is 4000 mg from all sources in 24 hours., Routine Given 06/20/2012 5:08 AM EDT 1,000 mg Given 06/19/2012 9:30 PM EDT 1,000 mg atenolol (TENORMIN) tablet 25 mg Given 06/21/2012 4:57 PM EDT 25 mg 25 mg, Oral, DAILY, First dose on Sun06/21/12 at 1545, Until Discontinued, Hold for systolic blood pressure less than 100 or heart rate less than 58., Routine calcium carbonate (TUMS) chewable tablet Given 06/22/2012 8:00 A M EDT 1,000 mg 1,000 mg 1,000 mg (2 tablet), Oral, 2 TIMES DAILY WITH MEALS, First dose on Sun06/20/12 at 0845, Until Discontinued, Routine Given 06/21/2012 5:00 PM EDT 1,000 mg Given 06/21/2012 8:00 AM EDT 1,000 mg ceFAZolin (ANCEF) 1g in dextrose New Bag 06/20/2012 8:00 AM ED T 1,000 mg 100 mL/hr 5% 50mL 1,000 mg (1 g), Intravenous, EVERY 8 HOURS, 3 doses, First dose on Sun06/19/12 at 1600, Last dose on Sun06/20/12 at 0800, Administer over 30 Minutes, For 3 doses postoperatively. Adjust to 8 hours from intraoperative dose., Indication for (Active or Suspected): Prophylaxis New Bag 06/20/2012 5:00 AM EDT 1,000 mg 100 mL/hr New Bag 06/19/2012 9:00 PM EDT 1,000 mg 100 mL/hr ceFAZolin (ANCEF) 2g in dextrose 5% 100m L Given 06/19/2012 1:07 PM EDT 2 g 2 g, Intravenous, ONCE, 1 dose, On Sun06/19/12 at 1200, Administer over 30 Minutes, Intra-Operative (Intra-Procedure) esomeprazole (NEXIUM) capsule 40 mg Given 06/22/2012 9:00 AM EDT 40 mg 40 mg, Oral, DAILY, First dose on Sun06/19/12 at 1830, Until Discontinued, Routine Given 06/21/2012 9:00 AM EDT 40 mg Given 06/20/2012 9:00 AM EDT 40 mg HYDROmorphone (DILAUDID) tablet 2-6 mg Given 06/22/2012 9:41 AM EDT 6 mg 2-6 mg, Oral, EVERY 4 HOURS PRN, Starting on Alisha 06/20/12 at 0951, Until 06/22/12 at 1508, Pain, Routine Given 06/22/2012 5:20 AM EDT 4 mg Given 06/21/2012 8:40 PM EDT 4 mg lactated ringers Rate/Dose Verify 06/20/2012 6:00 AM EDT 1,000 mLs 1 00 mL/hr infusion 1,000 mL 1,000 mL, at 100 mL/hr, Intravenous, CONTINUOUS, Starting on Sun06/19/12 at 1600, Until Alisha 06/20/12 at 0822 New Bag 06/20/2012 1:06 AM EDT 1,000 mLs 100 mL/hr New Bag 06/19/2012 4:00 PM EDT 1,000 mLs 100 mL/hr levothyroxine (SYNTHROID) tablet 125 mcg Given 06/22/2012 5:18 AM EDT 125 mcg 125 mcg, Oral, EVERY MORNING, First dose on 06/22/12 at 0600, Until Discontinued, Routine morphine 1 mg/mL TRIPOLER 30 mL New Syringe/Cartridge 06/19/2012 4:00 PM EDT mL/hr Intravenous, TRIPOLER ONLY, Starting on Sun06/19/12 at 1600, Until Alisha 06/20/12 at 0609, LOADING DOSE (0-4 mg): zero, TRIPOLER DOSE (0.5-1.5 mg): 1 mg, LOCKOUT INTERVAL (5-20 minutes): : 7 min, CONTINUOUS Infusion Rate (for opioid tolerant patients only): zero, FOUR HOUR DOSE LIMIT (5-30 mg): : 30 mg ondansetron (ZOFRAN) injection 4 mg Given 06/20/2012 10:00 AM EDT 4 mg 4 mg, Intravenous, EVERY 30 MIN PRN, 2 doses, Starting on Sun06/19/12 at 1810, Until Sun06/21/12 at 1525, Nausea, May repeat dose once in 30 minutes if no relief from previous dose., Routine OXYcodone (ROXICODONE) immediate release Given 06/20/2012 6:05 A M EDT 10 mg tablet 10 mg 10 mg, Oral, EVERY 4 HOURS PRN, Starting on Sun06/19/12 at 1810, Until Alisha 06/20/12 at 0951, Pain, moderate pain, For Moderate pain. Do not exceed 15 mg in 4 hours. If pain not relieved, call provider., Routine Given 06/19/2012 8:36 PM EDT 10 mg polyethylene glycol (MIRALAX) packet 17 g Given 06/21/2012 8:18 AM EDT 17 g 17 g, Oral, DAILY PRN, Starting on Sun06/19/12 at 1810, Until 06/22/12 at 1508, Constipation, Administer if needed per patient's routine or if no bowel movement within 48 hours, Routine Given 06/20/2012 7:58 PM EDT 17 g senna-docusate (PERICOLACE) 8.6-50 mg per Given 2011 9:00 AM EDT 2 tablets tablet 1-4 tablet 1-4 tablet, Oral, 2 TIMES DAILY, First dose on Sun06/19/12 at 2100, Until Discontinued, Start with 1 tablet or liquid equivalent orally twice daily and titrate up to achieve: 1. One bowel movement at least every 48 hours, AND 2. Without straining, Routine Given 06/21/2012 8:43 PM EDT 2 tablets Given 06/21/2012 9:00 AM EDT 3 tablets sodium chloride 0.9 % flush 5 mL Given 06/22/2012 6:30 AM EDT 5 mLs 5 mL, Intravenous, EVERY 12 HOURS, First dose on Sun06/19/12 at 1830, Until Discontinued Given 06/21/2012 6:30 PM EDT 5 mLs Given 06/21/2012 6:30 AM EDT 5 mLs terazosin (HYTRIN) capsule 4 mg Given 06/21/2012 8:43 PM EDT 4 mg 4 mg, Oral, NIGHTLY, First dose on Sun06/21/12 at 2100, Until Discontinued, Routine warfarin (COUMADIN) tablet 5 mg Given 06/19/2012 8:36 PM EDT 5 mg 5 mg, Oral, ONCE, 1 dose, On Sun06/19/12 at 1830, Routine warfarin (COUMADIN) tablet 5 mg Given 06/20/2012 5:00 PM EDT 5 mg 5 mg, Oral, ONCE, 1 dose, On Sun06/20/12 at 1700, Routine warfarin (COUMADIN) tablet 5 mg Given 06/21/2012 5:00 PM EDT 5 mg 5 mg, Oral, ONCE, 1 dose, On Sun06/21/12 at 1700, Routine documented in this encounter Active and Recently Administered Medications Times are shown in EDT. Scheduled Medication Order 06/20/2012 06/21/2012 06/22/2012 acetaminophen (TYLENOL) tablet 1,000 mg 0508 (Given - Provider: Deya Zhao RN)1400 (Given - Provider: Mane Thompson RN)2105 (Not Given - Provider: Tin Duenas RN - Reason: Patient/family refused) 0516 (Not Given - Provider: Tin Duenas RN - Reason: Patient/family refused)1400 (Not Given - Provider: Gisell Feliz RN - Reason: Patient/family refused)2113 (Not Given - Provider: Tin Duenas RN - Reason: Patient/family refused) 0518 (Not Given - Provider: Tin Duenas RN - Reason: Patient/family refused) 1,000 mg, Oral, EVERY 8 HOURS SCHEDULED, First dose on Sun06/19/12 at 1700, Until Discontinued, Maximum dose of acetaminophen is 4000 mg from all sources in 24 hours., Routine atenolol (TENORMIN) tablet 25 mg (CANCELED) 165 (Given - Provider: Gisell Feliz RN) 0900 (Not Given - Provider: Jeffery oakes RN - Reason: Contraindicated) 25 mg, Oral, DAILY, First dose on 08/23 at 1545, Until Discontinued, Hold for systolic blood pressure less than 100 or heart rate less than 58., Routine calcium carbonate (TUMS) chewable tablet 1,000 mg (CAN CELED) 0845 (Not Given - Provider: Mane Thompson RN - Reason: Patient/family refused)1105 (Given - Provider: Mane Thompson RN)1700 (Given - Provider: Mane Thompson RN) 0800 (Given - Provider: Gisell Feliz RN)1700 (Given - Provider: Gisell Feliz, SHAWNA) 0800 (Given - Provider: Jeffery Haines, RN) 2 tablet = 1,000 mg, Oral, 2 TIMES DAILY WITH MEALS, First dose on Sun06/20/12 at 0845, Until Discontinued, Routine ceFAZolin (ANCEF) 1g in dextrose 5% 50mL (COMPLETED) 0 500 (New Bag - Provider: Deya Zhao RN)0800 (New Bag - Provider: Mane Thompson RN) 1 g = 1,000 mg, Intravenous, EVERY 8 BRITATNY RS, 3 doses, First dose on Sun06/19/12 at 1600, Last dose on Sun06/20/12 at 0800, for 30 Minutes, For 3 doses postoperatively. Adjust to 8 hours from intraoperative dose. esomeprazole (NEXIUM) capsule 40 mg (CANCELED) 0900 (G iven - Provider: Mane Thompson RN) 09 (Given - Provider: Gisell Feliz RN) 0900 (Give n - Provider: Jeffery Haines, SHAWNA) 40 mg, Oral, DAILY, First dose on 06/23 at 1830, Until Discontinued, Routine levothyroxine (SYNTHROID) tablet 125 mcg (CANCELED) 18 (Given - Provider: Tin Duenas, SHAWNA) 125 mcg, Oral, EVERY MORNING, First dose on Sun06/22/12 at 0600, Until Discontinued, Routine senna-docusate (PERICOLACE) 8.6-50 mg per tablet 1-4 t ablet 899 (Given - Provider: Mane Thompson RN)2111 (Given - Provider: Tin Duenas RN) 09 (Given - Provider: Gisell Feliz, SHAWNA)2042 (Given - Provider: Tin Duenas, SHAWNA) 0900 (Given - Provider: Jeffery Haines, SHAWNA) 1-4 tablet, Oral, 2 TIMES DAILY, First d ose on Sun06/19/12 at 2100, Until Discontinued, Start with 1 tablet or liquid equivalent orally twice daily and titrate up to achieve: 1. One bowel movement at lula st every 48 hours, AND 2. Without straining, Routine sodium chloride 0.9 % flush 5 mL (CANCELED) 0630 (Give n - Provider: Deya Zhao RN)1830 (Given - Provider: Mane Thompson RN) 0630 (Given - Provider: Tin Duenas RN)1830 (Given - Provider: Gisell Feliz RN) 0630 (Given - Provider: Tin Duenas RN) 5 mL, Intravenous, EVERY 12 HOURS, First dose on Sun06/19/12 at 1830, Until Discontinued, Routine terazosin (HYTRIN) capsule 4 mg (CANCELED) 2042 (Given - Provider: Tin Duenas RN) 4 mg, Oral, NIGHTLY, First dose on Sun at 2100, Until Discontinued, Routine warfarin (COUMADIN) tablet 5 mg (COMPLETED) 1700 (Give n - Provider: Mane Thompson RN) 5 mg, Oral, ONCE, 1 dose, Alisha 06/20/12 at 1700, Routine warfarin (COUMADIN) tablet 5 mg (COMPLETED) 1700 (Given - Provider: Gisell Feliz RN) 5 mg, Oral, ONCE, 1 dose, Sun06/21/12 at 1700, Routine warfarin (COUMADIN) tablet 5 mg 5 mg, Oral, ONCE, 1 dose, Sun06/22/12 at 1700, Routine Continuous Medication Order 06/20/2012 06/21/2012 06/22/2012 lactated ringers infusion 1,000 mL (CANCELED) 0106 (Ne w Bag - Provider: Deya Zhao RN)0600 (Rate/Dose Verify - Provider: Deya Zhao RN) 1,000 mL, at 100 mL/hr, Intravenous, CON TINUOUS, Starting Sun06/19/12 at 1600, Until Sun06/20/12 at 0822 PRN Medication Order 06/20/2012 06/21/2012 06/22/2012 HYDROmorphone (DILAUDID) tablet 2-6 mg 1105 (Given - P rovider: Mane Thompson RN)1511 (Given - Provider: Mane Thompson RN)2111 (Given - Provider: Tin Duenas RN) 0455 (Given - Provider: Tin Duenas RN)1004 (Given - Provider: Gisell Feliz RN - Comment: giving prior to gym therapy)1540 (Given - Provider: Gisell Feliz RN)2040 (Given - Provider: Tin Duenas RN) 0520 (Given - Provider: Tin Duenas RN)0941 (Given - Provider: Jeffery Haines RN) 2-6 mg, Oral, EVERY 4 HOURS PRN, Startin g Alisha 06/20/12 at 0951, Until 06/22/12 at 1508, Pain, Routine ondansetron (ZOFRAN) injection 4 mg (CANCELED) 1000 (G iven - Provider: Mane Thompson RN) 4 mg, Intravenous, EVERY 30 MIN PRN, 2 d oses, Starting 06/19/12 at 1810, Until 06/21/12 at 1525, Nausea, May repeat dose once in 30 minutes if no relief from previous dose., Routine OXYcodone (ROXICODONE) immediate release tablet 10 mg (CANCELED) 0605 (Given - Provider: Deya Zhao RN) 10 mg, Oral, EVERY 4 HOURS PRN, Starting 06/19/12 at 1810, Until Alisha 06/20/12 at 0951, Pain, moderate pain, For Moderate pain. Do not exceed 15 mg in 4 hours. If pain not relieved, call provider., Routine polyethylene glycol (MIRALAX) packet 17 g (CANCELED) 1 958 (Given - Provider: Tin Duenas RN) 0818 (Given - Provider: Gisell Feliz RN) 17 g, Oral, DAILY PRN, Starting Wed at 1810, Until 06/22/12 at 1508, Constipation, Administer if needed per patient's routine or if no bowel movement within 48 hours, Routine documented in this encounter Care Teams Microgrinder Operator Relationship Specialty Start Date End Date Arabella Rob MD PCP - General 10/04/10 04/10/17 [facility] GENERAL [place] [address] documented as of this encounter
--- OUTSIDE RECORDS SUMMARY | 2022-10-09 16:18 | XMS_ITS | Encounter Summary ---
:1940 Author Organization [facility] [place] [address] Care Team Providers Name Role Phone Giorgio Cardona MD Primary Care Provider Encounter Details Date Type Department Care Team Description 07/25/2012 Anti-Coag Telephone Orthopaedics at [facility] Shilpa Myers DJD right knee s/p R Visit [facility] RN TKA Dr. Kayla bucio 06/19 [place] [id number] Social History Tobacco Use Types Packs/Day Years [...] Dermatology Virgilio Mckeon MD [facility] ER DR CHRISTIANO HENSON-DERMAT OLOGY [place], [place] [address] (Wo rk) 10/16/2022 Office Visit Otolaryngology Frank Buchanan MD [facility] OTOLARYNGOLOGY Sarah EPT. [place], [place] [address] (Wo rk) 11/29/2022 Appointment Hematology and Oncology 11/29/2022 Office Visit Radiation Oncology Emerald Leyva APRN [facility] RADIATION ONCOLO [place], [place] [address] (Wo rk) documented as of this encounter Procedures Procedure Name Priority Date/Time Associated Diagnosis Comme nts EXTERNAL LAB RESULTS Routine 07/25/2012 Results for this procedure are i n the results section . documented in this encounter Results (ABNORMAL) External Lab Results (07/25/2012) P athologist Signature POC INR 2.6 0.9 - 1.1 (External Lab) Comment: [facility] Specimen (Source) Anatomical Location Collection Method / Collectio n Time Received Time / Laterality Volume 07/25/2012 Historical Provider CHEMISTRY ORDERABLES documented in this encounter Visit Diagnoses Diagnosis DJD right knee s/p R TKA Dr. Quezada 06/19 Osteoarthrosis, unspecified whether gene ralized or localized, lower leg documented in this encounter Care Teams Medical Imaging Technician Relationship Specialty Start Date End Date Giorgio Cardona MD PCP - General 10/04/10 04/10/17 [facility] GENERAL [place] [address] documented as of this encounter
--- OUTSIDE RECORDS SUMMARY | 2022-10-09 16:18 | XMS_ITS | Encounter Summary ---
:1940 Author Organization [facility] [place] [address] Care Team Providers Name Role Phone Giorgio Cardona MD Primary Care Provider Reason for Visit Reason Comments Pre-op Exam R knee replacement Encounter Details Date Type Department Care Team Description 05/20/2012 Office Visit Internal Medicine at [facility] Pre- operative exam (Primary Dx); [facility] Yonny Valdovinos MD Arthritis of knee, right Formerly [facility] [address] [place] GENERAL INTERNAL [address] MEDICINE [phone] [place], [place] [address] (Wo rk) Social History Tobacco Use Types Packs/Day Years Used Date Smoking Tobacco: Never Smokeless Tobacco: Never Alcohol Use Standard Drinks/Week Comments No 0 (1 standard drink = 0.6 oz pure alcoho l) Sex Assigned at Date Recorded Not on file documented as of this encounter Last Filed Vital Signs Vital Sign Reading Time Taken Comments Blood Pressure 117/67 05/20/2012 2:51 PM EDT Pulse 57 05/20/2012 2:51 PM EDT Temperature - - Respiratory Rate - - Oxygen Saturation - - Inhaled Oxygen Concentration - - Weight - - Height - - Body Mass Index - - documented in this encounter Patient Instructions Patient InstructionsLivier Salgado MD - 05/20/2012 3:46 PM EDT On day of medication, take your Thyroid medication(Synthroid 125 mg daily) and Atenolol (Tenormin) 25 mg daily. Do not take water pill (Furosemide) Call back if you have questions documented in this encounter Progress Notes Livier Salgado MD - 05/20/2012 3:43 PM EDT PRE-OPERATIVE EVALUATION PATIENT PROFILE: New to GIM Established problem to examiner x New problem to examiner Person's Present Patient Complaint Pre-op Evaluation Date of surgery 06/19/2012 Proposed procedure TKR, right knee under Spinal Anesthesia Surgeon Dr. Damien Glaser came today for routine pre-op exam prior to planned TKR, Right knee on 06/19/2012. No new complaints today. Reports he had recent neck surgery/thyroidectomy 3 months ago and has had hoarseness since then. Apart from this, states that he tolerated the procedure well. No difficulty in extubation and did well overall post op. 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 No change in functional status reported. Still able to climb a 50-ft ladder with no chest pain/shortness of breath. Main issue is his balance and right knee pain; anxious to see if surgery will help him restore/improve current function PROBLEM LIST: Patient Active Problem List Diagnoses Date Noted ??? Vocal cord paralysis [478.30K] 05/02/2012 ??? Dysphagia, unspecified [787.20] 01/22/2012 ??? S/P thyroidectomy [V45.89FE] 01/08/2012 ??? Anxiety [300.00E] 10/30/2011 ??? 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 Post-nasal drip [784.91B] 08/28/2011 ??? Inguinal hernia recurrent unilateral [550.91B] 02/14/2011 ??? 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 Pancreatic cyst [577.2G] 09/12/2010 ??? Constipation [564.00A] 05/12/2010 ??? Dyslipidemia [272.4CR] ??? GERD (gastroesophageal reflux disease) [530.81S] ??? Hypertension [401.9AJ] ??? Impaired fasting glucose [790.21] ??? S/p mitral valve repair [V45.89FR] ??? Osteoarthritis [715.90AN] ??? Prostate cancer [185A] ??? Lung cancer [162.9M] 12/13/2009 Past Surgical History Procedure Date ??? Created [...] INGUINAL, RECURRENT performed by NOREEN BOWIE at [facility] OR ??? Thyroidectomy=substernal, transcerv 11/30/2011 THYROIDECTOMY, INCL. SUBSTERNAL, CERVICAL APPROACH performed by FRANK MAC at [facility] OR ??? Somatosensory test, any/all per. nerves, trunk or head 11/30/2011 FACIAL NERVE MONITORING, SETUP performed by FRANK MAC at [facility] OR ??? Upper gi endoscopy, exam 01/29/2012 UPPER GI ENDOSCOPY performed by VICKI SON at [facility] ??? Lung cancer surgery Partial removal of R lung SOCIAL HISTORY Caffeine Takes 5-6 cups of coffee/day; usually 4 per day ETOH Non-alcoholic beverage drinker Tobacco Non-smoker Drugs/injection/inhalant denies Support system Children and ; ADVANCE DIRECTIVES Location Notes x In eDH Outside [facility] None ROS Negative Positive (X) Constitutional () Dentures, (x) Glasses, () Fevers / chills, () Malaise, () Weight Gain, () Weight loss HEENT () Vision changes, () Hearing loss, () Nasal congestion, () Sore throat (X) HOARSENESS Lymphatic x () Lymphadenopathy Card/vasc x () Chest pains, () Palpitations, () Lightheadedness, () Edema Respiratory x () SOB, () NIEVES, () Wheezing, () Cough GI x () Abdominal, () Anorexia, () Nausea, () Vomiting, () Diarrhea, () Constipation, () Change in bowel habits, () Hematochezia x () Dysuria, () Frequency, () Urgency M/S x () Muscle pain, () joint pain Skin x () Rashes Endocrine x () Temperature intolerance Neuro x () Fainting, () Seizures, () Motor loss, () Sensory loss, () Poor memory Psych x () Depression, () Anxiety PRE-OP PHYSICAL EXAM Filed Vitals: 05/20/12 1451 BP: 117/67 Pulse: 57 = Physical Exam Constitutional: He is oriented to person, place, and time. No distress. HENT: Voice is hoarse Eyes: Conjunctivae are normal. No scleral icterus. Neck: Neck supple. Cardiovascular: Normal rate and regular rhythm. Pulmonary/Chest: Effort normal and breath sounds normal. No respiratory distress. He has no wheezes.He has no rales. Abdominal: Soft. Musculoskeletal: Trace edema Neurological: He is alert and oriented to person, place, and time. Skin: Skin is warm. Psychiatric: Mood and affect normal. LABS/EKG Recent Results (from the past 72 hour(s)) EKG 12-LEAD Component Value Range ??? Ventricular rate 58 (BPM) ??? Atrial Rate 58 (BPM) ??? P-R Interval 228 (ms) ??? QRS Duration 90 (ms) ??? Q-T Interval 436 (ms) ??? QTC Calculated (Bezet) 428 (ms) ??? Calculated P [place] 55 (degrees) ??? Calculated R [place] 21 (degrees) ??? Calculated T [place] 49 (degrees) ??? INTERPRETATION Value: Sinus bradycardia with 1st degree A-V block Otherwise normal ECG When compared with ECG of 23-NOV-2011 12:31, No significant change was found CBC (WITH DIFF) Component Value Range ??? WBC 4.2 4.0 - 10.0 (x10(3)/mcL) ??? RBC 4.14 (*) 4.63 - 6.08 (x10(6)/mcL) ??? Hemoglobin 13.8 13.7 - 17.5 (gm/dL) ??? Hematocrit 40.0 40.0 - 51.0 (%) ??? MCV 96.6 (*) 79.0 - 92.0 (fL) ??? MCH 33.3 (*) 25.6 - 32.2 (pg) ??? MCHC 34.5 32.0 - 36.5 (gm/dL) ??? Platelets 178 145 - 370 (x10(3)/mcL) ??? RDWSD 47.6 (*) 35.0 - 46.0 (fL) ??? RDWCV 13.5 10.9 - 14.4 (%) ??? MPV 11.0 9.0 - 12.0 (fL) BASIC METABOLIC PANEL (NON-FASTING) Component Value Range ??? Glucose Lvl 98 60 - 199 (mg/dL) ??? BUN 26 (*) 10 - 20 (mg/dL) ??? Creatinine 1.07 0.80 - 1.50 (mg/dL) ??? Sodium 139 135 - 145 (mmol/L) ??? Potassium 4.6 3.5 - 5.0 (mmol/L) ??? Chloride 102 98 - 107 (mmol/L) ??? CO2 28 22 - 31 (mmol/L) ??? Anion Gap 9 5 - 15 (mmol/L) ??? Calcium 8.8 8.5 - 10.5 (mg/dL) ? ? Estimated GFR >60 >=60 PROTHROMBIN TIME Component Value Range ??? PT 15.7 (*) 11.9 - 14.7 (sec) ??? INR 1.2 (*) 0.9 - 1.1 DIFFERENTIAL, AUTOMATED Component Value Range ??? Neutrophils % 51.5 34.0 - 71.0 (%) ??? Neutr Abs (ANC) 2.16 1.50 - 6.30 (x10(3)/mcL) ??? Lymphocytes % 28.8 19.0 - 53.0 (%) ??? Lymphocytes Abs 1.2 1.0 - 3.6 (x10(3)/mcL) ??? Monocytes % 16.4 (*) 4.0 - 13.0 (%) ??? Monocyte Abs 0.7 0.2 - 1.0 (x10(3)/mcL) ??? Eosinophils % 2.6 0.0 - 7.0 (%) ??? Eosinophils Abs 0.1 0.0 - 0.5 (x10(3)/mcL) ??? Basophils % 0.5 0.0 - 2.0 (%) ??? Basophils Abs 0.0 0.0 - 0.2 (x10(3)/mcL) ??? Immature Gran % 0.20 0.00 - 0.66 (%) ??? Becki Gran Abs 0.01 0.00 - 0.05 (x10(3)/mcL) ABO/RH TYPING Component Value Range ??? ABORh Type O Pos ANTIBODY SCREEN Component Value Range ??? Ab Screen Interp Negative ??? Specimen OD [id number] URINALYSIS WITH MICROSCOPIC Component Value Range ??? Glucose UA Negative Negative (mg/dL) ??? Protein UA Trace (*) Neg (mg/dL) ??? Bilirubin UA Negative Negative (mg/dL) ??? Urobilinogen UA Normal (mg/dL) ??? pH UA 7.0 5.0 - 8.0 ??? Blood UA Negative (mg/dL) ??? Ketones UA Negative (mg/dL) ??? Nitrite UA Negative ??? Leukocytes UA Negative (mcL) ??? Appearance UA Clear Clear ??? Spec Irwin UA 1.020 1.002 - 1.030 ??? Color UA Yellow Yellow ??? RBC UA Not Present 0 - 3 ? ? WBC UA <1 0 - 3 (/HPF) ? ? Squam Epith UA <1 <=4 (/HPF) PREVIOUS STUDIES Pulmonary Function Test none Stress tests March 2011 Echo Cardiogram March 2011 Cardiac Cath none Cardiology or Pulmonary Consultation none ASSESSMENT 71 Y M with multiple medical problems who came today for pre-op evaluation prior to planned TKR, Right knee under SAB on 06/19/2012. He has intermediate clinical risk/intermediate surgical risk with excellent functional capacity for his age. He has also tolerated a recent neck surgery under [facility] 3 months with no major complications apart from vocal cord paralysis. Labs were unremarkable. EKG reviewed. Expectations for upcoming surgery reviewed with patient. PLAN: -Patient advised to continue synthroid and Atenolol perioperative. -Hold Lasix on day of surgery -DVT prophylaxis as per ortho protocol -Pain management with bowel regimen perioperatively as appropriate -follow up with PCP post op -Call back if with questions documented in this encounter Plan of Treatment Upcoming Encounters Date Type Specialty Care Team Description 10/11/2022 Office Visit Dermatology Virgilio Mckeon MD [facility] DR CHRISTIANO HENSON[facility]DERMAT OLOGY [place], [place] [address] (Wo rk) 10/16/2022 Office Visit Otolaryngology Frank Buchanan MD [facility] OTOLARYNGOLOGY Sarah EPT. [place], [place] [address] (Wo rk) 11/29/2022 Appointment Hematology and Oncology 11/29/2022 Office Visit Radiation Oncology Emerald Leyva APRN [facility] RADIATION ONCOLO GY [place], [place] [address] (Wo rk) documented as of this encounter Visit Diagnoses Diagnosis Pre-operative exam - Primary Preoperative examination, unspecified Arthritis of knee, right Unspecified arthropathy, lower leg documented in this encounter Care Teams Ethnic Origins Teacher Relationship Specialty Start Date End Date Giorgio Cardona MD PCP - General 10/04/10 04/10/17 [facility] GENERAL [place] [address] documented as of this encounter
--- OUTSIDE RECORDS SUMMARY | 2022-10-09 16:18 | XMS_ITS | Encounter Summary ---
:1940 Author Organization [facility] [place] [address] Care Team Providers Name Role Phone Giorgio Cardona MD Primary Care Provider Encounter Details Date Type Department Care Team Description 07/09/2012 Hospital Encounter Laboratory Giorgio Cardona, HTN (hypertension) [facility] [place], [place] CENTER [address] GENERAL INTERNAL [phone] [place], [place] [address] Social History Tobacco Use Types [...] [facility]RI[facility] HENSON[facility]DERMAT OLOGY [place], [place] [address] (Wo rk) 10/16/2022 Office Visit Otolaryngology Frank Buchanan MD [facility] OTOLARYNGOLOGY D EPT. [place], [place] [address] (Wo rk) 11/29/2022 Appointment Hematology and Oncology 11/29/2022 Office Visit Radiation Oncology Emerald Leyva APRN [facility] RADIATION ONCOLO GY [place], [place] [address] (Wo rk) documented as of this encounter Procedures Procedure Name Priority Date/Time Associated Diagnosis Comme nts BASIC METABOLIC Routine 07/09/2012 3:55 PM HTN (hypertension) Results for this PANEL (NON-FASTING) EDT procedur e are in the results section. documented in this encounter Results (ABNORMAL) Basic Metabolic Panel (non-fasting) (07/09/2012 3:55 PM EDT) P athologist Signature Glucose Lvl 116 60 - 199 CERNER mg/dL MILLENNIUM Comment: Diabetes: >=200 mg/dL plus symp toms BUN 23 (H) 10 - 20 mg/dL CERNER MILLENNIU M Creatinine 1.03 0.80 - 1.50 mg/dL CERNER MILL ENNIUM Comment: Please note that the pediatric reference intervals supplied above were not validated at [facility]. Results from pediatri c patients should be interpreted in conjunction to the patient's age, height and muscle mass. Sodium 138 135 - 145 mmol/L CERNER PATRICK NIUM [...] - 107 mmol/L CERNER MILLENN IUM CO2 31 22 - 31 mmol/L CERNER MILLENNI UM Anion Gap 6 5 - 15 mmol/L CERNER MILLENNIU M [...] Organization Address City/State/[place] [address] HOSPITAL LABORATORY [facility] documented in this encounter Visit Diagnoses Diagnosis HTN (hypertension) Unspecified essential hypertension documented in this encounter Care Teams Correspondence Section Supervisor Relationship Specialty Start Date End Date Giorgio Cardona MD PCP - General 10/04/10 04/10/17 [facility] [place] [address] documented as of this encounter
--- OUTSIDE RECORDS SUMMARY | 2022-10-09 16:18 | XMS_ITS | Encounter Summary ---
:1940 Author Organization [facility] [place] [address] Care Team Providers Name Role Phone Giorgio Cardona MD Primary Care Provider Reason for Visit Reason Comments Follow-up Encounter Details Date Type Department Care Team Description 08/08/2012 Follow-Up Otolaryngology at [facility] Ramin Vigil Vocal cord paralysis [facility] [place] [address] [facility] [phone] OTOLARYNGOLOGY DEPT. [place], [place] [address] Social History Tobacco Use Types Packs/Day Years Used Date Smoking Tobacco: Never Smokeless Tobacco: Never Alcohol Use Standard Drinks/Week Comments No 0 (1 standard drink = 0.6 oz pure alcoho l) Sex Assigned at Date Recorded Not on file documented as of this encounter Last Filed Vital Signs Vital Sign Reading Time Taken Comments Blood Pressure 112/66 08/08/2012 1:17 PM EDT Pulse 70 08/08/2012 1:17 PM EDT Temperature - - Respiratory Rate - - Oxygen Saturation - - Inhaled Oxygen Concentration - - Weight 69.8 kg (153 lb 14.4 oz) 08/08/2012 1:17 PM EDT Height 170.2 cm (5' 7) 08/08/2012 1:17 PM EDT Body Mass Index 24.1 08/08/2012 1:17 PM EDT documented in this encounter Progress Notes Ramin Vigil MD - 08/08/2012 2:26 PM EDT [facility] Follow up note Alfredito Mina is a 72 y.o. male seen in follow-up for left vocal cord paralysis. New issues since last visit: Had his knee surgery. Still having breathy voice. Some dysphagia. He isinterested in pursuing vocal cord injection and presents to discuss this. PROBLEM LIST: Patient Active Problem List Diagnoses [...] unspecified 787.20 ??? Vocal cord paralysis 478.30K PAST MEDICAL HISTORY: Past Medical History Diagnosis Date ??? Lung cancer ??? Prostate cancer s/p XRT ??? Difficulty in swallowing ??? Dry mouth SOCIAL HISTORY: History Substance Use Topics ??? Smoking status: Never Smoker ??? Smokeless tobacco: Never Used ??? Alcohol Use: No MEDICATIONS: Current outpatient prescriptions ordered prior to encounter Medication Sig Dispense Refill ??? aspirin 325 mg tablet Take 325 [...] mouth every morning. 30 tablet 12 ??? atenolol (TENORMIN) 50 mg tablet Take 0.5 tablets by mouth daily. 30 tablet 3 ALLERGIES: Allergies Allergen Reactions ??? Lactose Other (See Comments) Sneezing ROS: Pertinent positive findings discussed above. No other findings on review of constitutional visual, cardiovascular, respiratory, gastrointestinal, genitourinary, musculoskeletal, dermatologic, neurological, psychiatric, endocrine, hematologic or immunologic systems. PHYSICAL EXAMINATION: General: Well developed, no distress Head/face: Normocephalic, atraumatic Resp: Breathy voice, maximum phonation time ~6 seconds PROCEDURES: Flexible Fiberoptic Laryngoscopy: Topical anesthetic and decongestant applied to the nasal cavity. Patient tolerated the procedure well without any complications. Nasal Cavity: Normal Nasopharynx: Kayy Oropharynx: Normal Larynx: LEFT TVC paralysis Hypopharynx: Normal ASSESSMENT/RECOMMENDATIONS: LEFT TVC paralysis. Discuss microDL with radiesse injection. Risks of surgery including bleeding, infection, chipped teeth, scarring, worsening of voice or lack of improvement were discussed. Patient is agreeable with plan, all questions answered and he is eager to pursue injection. Consent signed in the office. I appreciate the opportunity to be involved in Mr. Mina's care. Please do not hesitate to contact me at [email or web address], (office), (page base wad operator adjuster) or [phone] (mobile) if you have any questions. RAMIN VIGIL MD 08/08/2012 documented in this encounter Miscellaneous Notes Miscellaneous - Adolfo Phys Assistant - 08/12/2012 5:31 PM EDT documented in this encounter Plan of Treatment Upcoming Encounters Date Type Specialty Care Team Description 10/11/2022 Office Visit Dermatology Virgilio Mckeon MD [facility] DR CHRISTIANO HENSON-DERMAT OLOGY [place], [place] [address] (Wo rk) 10/16/2022 Office Visit Otolaryngology Frank Vigil MD [facility] OTOLARYNGOLOGY Sarah EPT. [place], [place] [address] (Wo rk) 11/29/2022 Appointment Hematology and Oncology 11/29/2022 Office Visit Radiation Oncology Emerald Leyva APRN [facility] RADIATION ONCOLO GY [place], [place] [address] (Wo rk) documented as of this encounter Visit Diagnoses Diagnosis Vocal cord paralysis Paralysis of vocal cords or larynx, unsp ecified documented in this encounter Care Teams Outside Solar Sales Consultant Relationship Specialty Start Date End Date Giorgio Cardona MD PCP - General 10/04/10 04/10/17 [facility] GENERAL INTERNAL [place] [address] documented as of this encounter
--- OUTSIDE RECORDS SUMMARY | 2022-10-09 16:18 | XMS_ITS | Encounter Summary ---
:1940 Author Organization [facility] [place] [address] Care Team Providers Name Role Phone Giorgio Cardona MD Primary Care Provider Reason for Referral Physical Therapy (Routine) - Complete - Patient Will Schedule External Appt Specialty Diagnoses / Procedures Referred By Contact Refer red To Contact Physical Therapy Diagnoses S/P total knee replacement using cement Alessio Quezada MD [facility] Sarah L[place] [address] Referral ID Status Reason Start Expiration Visits Visits Date Date Requested Authorized [id number] Complete - Evaluate and 07/26/2012 01/22/2013 1 1 Patient Will Treat Schedule External Appt Reason for Visit Reason Comments Follow Up Surgery s/p right TKA 06/19/12 Encounter Details Date Type Department Care Team Description 07/26/2012 Office Visit Orthopaedics at [facility] Alessio Quezada S/P total knee replacement u sing cement (Primary Dx); [facility] MD Lexy Knee joint [place] [address] [place] [address] ORTHOPAEDIC SURGERY [place], [place] [address] Social History Tobacco Use Types Packs/Day Years Used Date Smoking Tobacco: Never Smokeless Tobacco: Never Alcohol Use Standard Drinks/Week Comments No 0 (1 standard drink = 0.6 oz pure alcoho l) Sex Assigned at Date Recorded Not on file documented as of this encounter Last Filed Vital Signs Vital Sign Reading Time Taken Comments Blood Pressure 110/60 07/26/2012 2:14 PM EDT Pulse - - Temperature 36.6 ??C (97.9 ??F) 07/26/2012 2:14 PM EDT Respiratory Rate - - Oxygen Saturation - - Inhaled Oxygen Concentration - - Weight 68.3 kg (150 lb 9.6 oz) 07/26/2012 2:14 PM EDT Height 170.2 cm (5' 7) 07/26/2012 2:14 PM EDT Body Mass Index 23.59 07/26/2012 2:14 PM EDT documented in this encounter Progress Notes Alessio Quezada - 07/26/2012 2:49 PM EDT Mr. Em is a 72-year-old gentleman who is now about five weeks status post a right total knee replacement specifically a posterior cruciate substituting fixed platform knee. He is doing one could say quite well. He drove in himself. He is on no pain medication, off his Coumadin, and on his aspirin without any ill effect. 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 He has a little achiness in the knee, but he is working with PT and is very happy with their progress. On his physical exam, he has a beautifully healed incision. He could arise from a chair without use of his arm and he actually has a perfectly normal gait. He lacks a few degrees of full extension, flexes probably to about 110 and 115 degrees. Alignment is excellent. Patella tracks well and there does not appear to be any distal neurovascular compromise. His x-rays show very satisfactory position of his implant (for some reason the standing alignment film was not obtained). Whom I can certainly appreciate a reasonably good alignment. Nothing to suggest stress shielding, implant failure, loosening, or malposition. Considering all things, he is a remarkable gentleman who has done much better than Either he or i would have thought at this point, but I have encouraged him to continue to build up his strength and endurance of his quads, major emphasis on full extension and he is well aware of the admonitions about good foot care, dental, and urologic prophylaxis. Outpatient PT will work with him and we will look forward to seeing him in four months' time with x-rays or earlier p.r.n. He will stay on his aspirin for six weeks and then default to his medication or no medication of his choice. CC: Giorgio Cardona M.D. [facility] Caity Moreno MD - 07/26/2012 2:49 PM EDT I have made the following determinations: Post Op Right Knee Exam: Gait Abnormality: Antalgic Knee ROM: Extension: -3 Flexion: 110 Alignment: 0-4 degrees Neutral Stability: A/P Translation [...] [facility] DR CHRISTIANO HENSON-DERMAT OLOGY [place], [place] [address] (Leroy bhatia) 10/16/2022 Office Visit Otolaryngology Frank Buchanan MD [facility] OTOLARYNGOLOGY Sarah EPT. [place], [place] [address] (Wo sriram) 11/29/2022 Appointment Hematology and Oncology 11/29/2022 Office Visit Radiation Oncology Emerald Leyva APRN [facility] RADIATION ONCCESAR GY [place], [place] [address] (Leroy bhatia) Scheduled Referrals Name Type Priority Associated Diagnoses Order S chedule REFERRAL TO Outpatient Referral Routine S/P total knee Ordere d: PHYSICAL THERAPY replacement using 2011 cement documented as of this encounter Results XR [...] Diagnosis S/P total knee replacement using cement - Primary Knee joint replacement by other means Knee joint replacement by other means S/P total knee replacement using cement Knee joint replacement by other means Knee joint replacement by other means documented in this encounter Care Teams Slitter Creaser Slotter Helper Relationship Specialty Start Date End Date Giorgio Cardona MD PCP - General 10/04/10 04/10/17 [facility] [place] [address] documented as of this encounter
--- OUTSIDE RECORDS SUMMARY | 2022-10-09 16:18 | XMS_ITS | Encounter Summary ---
:1940 Author Organization [facility] [place] [address] Care Team Providers Name Role Phone Giorgio Cardona MD Primary Care Provider Encounter Details Date Type Department Care Team Description 09/22/2012 External Results XRay at [facility] Kaushik Manley, [address] [place] [address] [place] [address] [address] [phone] [place], [place] [address] (Wo rk) Social History Tobacco Use Types [...] Mckeon MD [facility] DR CHRISTIANO HENSON-DERMAT OLOGY [place], [place] [address] (Wo rk) 10/16/2022 Office Visit Otolaryngology Frank Buchanan MD [facility] OTOLARYNGOLOGMireille Smith EPT. [place], [place] [address] (Wo rk) 11/29/2022 Appointment Hematology and Oncology 11/29/2022 Office Visit Radiation Oncology Emerald Leyva APRN [facility] RADIATION ONCOLO [place], [place] [address] (Wo rk) documented as of this encounter Procedures Procedure Name Priority Date/Time Associated Diagnosis Comme nts CT SCAN (SCAN) Routine 09/13/2012 documented in this encounter Results Scan Doc: CT Scan (09/13/2012) Anatomical Region Laterality Modality Other Narrative This result has an attachment that is no t available. Kaushik Manley MD MEDIA MGR SCAN EXT ORDR/RSLT documented in this encounter Visit Diagnoses Not on filedocumented in this encounter Care Teams Assembler Truck Trailer Relationship Specialty Start Date End Date Giorgio Cardona MD PCP - General 10/04/10 04/10/17 [facility] [place] [address] documented as of this encounter
--- OUTSIDE RECORDS SUMMARY | 2022-10-09 16:18 | XMS_ITS | Encounter Summary ---
:1940 Author Organization [facility] [place] [address] Care Team Providers Name Role Phone Giorgio Cardona MD Primary Care Provider Encounter Details Date Type Department Care Team Description 09/18/2012 Hospital Encounter Laboratory Tomer, Dyslipidemia; [facility] Oriana Valdovinos MD GERD (gastroesophageal reflux disease); [facility] Hypertension; [place], [place] [address] Lung cancer; [address] ENDOCRINOLOGY Multinodular goiter; [phone] DEPT. Osteoarthritis; [place], [place] Pancreatic cyst ; [address] Post-nasal drip; [phone] Prostate cancer ; (Work) S/P mitral valve repair; [phone] Vocal cord para lysis; (Fax) [facility]ative [facility]; Hyperthyroidism ; DM (diabetes me llitus) Social History Tobacco Use Types Packs/Day Years Used Date Smoking Tobacco: Never Smokeless Tobacco: Never Alcohol Use Standard Drinks/Week Comments No 0 (1 standard drink = 0.6 oz pure alcoho l) Sex Assigned at Date Recorded Not on file documented as of this encounter Medications at Time of Discharge Medication Sig Dispensed Refills Start Date End Date amoxicillin-clavulanate Take 1 tablet by 0 10/29/2012 (AUGMENTIN) 875-125 mg per mouth 2 times tablet daily. For ten days atenolol (TENORMIN) 50 mg Take 0.5 tablets [...] [facility] DR CHRISTIANO HENSON-DERMAT OLOGY [place], [place] [address] (Wo rk) 10/16/2022 Office Visit Otolaryngology Frank Buchanan MD [facility] OTOLARYNGOLOGY D EPT. [place], [place] [address] (Wo rk) 11/29/2022 Appointment Hematology and Oncology 11/29/2022 Office Visit Radiation Oncology Emerald Leyva APRN [facility] RADIATION ONCCESAR GY [place], [place] [address] (Wo rk) Scheduled Orders Name Type Priority Associated Diagnoses Order S chedule TSH Lab Routine Hyperthyroidism 1 Occurrence s starting 09/18/2012 Hemoglobin A1c Lab Routine DM (diabetes mellitus) 1 O ccurrences starting 09/18/2012 documented as of this encounter Procedures Procedure Name Priority Date/Time Associated Comments Diagnosis DIFFERENTIAL, Routine 09/18/2012 2:40 PM Results for this AUTOMATED EST procedure are i n the results section. VITAMIN D, 25-HYDROXY Routine 09/18/2012 2:40 PM Dyslipi demia Results for this EST GERD procedure are i n (gastroesophageal the result s reflux disease) section. Hypertension Lung cancer Multinodular goi ter Osteoarthritis Pancreatic cyst Post-nasal drip Prostate cancer S/P mitral valve repair Vocal cord paralysis Preventative health care CBC (WITH DIFF) Routine 09/18/2012 2:40 PM Dyslipidemia Results for this EST GERD procedure are i n (gastroesophageal the result s reflux disease) section. Hypertension Lung cancer Multinodular goi ter Osteoarthritis Pancreatic cyst Post-nasal drip Prostate cancer S/P mitral valve repair Vocal cord paralysis Preventative health care TSH Routine 09/18/2012 2:40 PM Dyslipidemia Results for this EST GERD procedure are i n (gastroesophageal the result s reflux disease) section. Hypertension Lung cancer Multinodular goi ter Osteoarthritis Pancreatic cyst Post-nasal drip Prostate cancer S/P mitral valve repair Vocal cord paralysis Preventative health care T4, FREE Routine 09/18/2012 2:40 PM Dyslipidemia Results for this EST GERD procedure are i n (gastroesophageal the result s reflux disease) section. Hypertension Lung cancer Multinodular goi ter Osteoarthritis Pancreatic cyst Post-nasal drip Prostate cancer S/P mitral valve repair Vocal cord paralysis Preventative health care HEMOGLOBIN A1C Routine 09/18/2012 2:40 PM Dyslipidemia Results for this EST GERD procedure are i n (gastroesophageal the result s reflux disease) section. Hypertension Lung cancer Multinodular goi ter Osteoarthritis Pancreatic cyst Post-nasal drip Prostate cancer S/P mitral valve repair Vocal cord paralysis Preventative health care FOLATE, SERUM Routine 09/18/2012 2:40 PM Dyslipidemia Results for this EST GERD procedure are i n (gastroesophageal the result s reflux disease) section. Hypertension Lung cancer Multinodular goi ter Osteoarthritis Pancreatic cyst Post-nasal drip Prostate cancer S/P mitral valve repair Vocal cord paralysis Preventative health care VITAMIN B12 Routine 09/18/2012 2:40 PM Dyslipidemia Results for this EST GERD procedure are i n (gastroesophageal the result s reflux disease) section. Hypertension Lung cancer Multinodular goi ter Osteoarthritis Pancreatic cyst Post-nasal drip Prostate cancer S/P mitral valve repair Vocal cord paralysis Preventative health care LIPID PANEL (REFLEX Routine 09/18/2012 2:40 PM Dyslipide shabnam Results for this DIRECT LDL) EST GERD procedure are i n (gastroesophageal the result s reflux disease) section. Hypertension Lung cancer Multinodular goi ter Osteoarthritis Pancreatic cyst Post-nasal drip Prostate cancer S/P mitral valve repair Vocal cord paralysis Preventative health care COMPREHENSIVE Routine 09/18/2012 2:40 PM Dyslipidemia Results for this METABOLIC PANEL EST GERD procedure ar e in (NON-FASTING) (gastroesophageal the resul ts reflux disease) section. Hypertension Lung cancer Multinodular goi ter Osteoarthritis Pancreatic cyst Post-nasal drip Prostate cancer S/P mitral valve repair Vocal cord paralysis Preventative health care documented in this encounter Results DIFFERENTIAL, AUTOMATED (09/18/2012 2:40 PM EST) P athologist Signature Neutrophils % 46.8 34.0 - CERNER 71.0 % MILLENNIUM Neutr Abs (ANC) 1.94 1.50 - CERNER 6.30 MILLENNIUM x10(3)/mcL Lymphocytes % 37.3 19.0 - CERNER 53.0 % MILLENNIUM Lymphocytes Abs 1.6 1.0 - 3.6 CERNER x10(3)/mcL MILLENNIUM Monocytes % 12.8 4.0 - 13.0 CERNER % MILLENNIUM Monocyte Abs 0.5 0.2 - 1.0 CERNER x10(3)/mcL MILLENNIUM Eosinophils % 2.4 0.0 - 7.0 CERNER % MILLENNIUM Eosinophils Abs 0.1 0.0 - 0.5 CERNER x10(3)/mcL MILLENNIUM Basophils % 0.7 0.0 - 2.0 CERNER % MILLENNIUM Basophils [...] Location / / Volume Laterality Blood specimen 09/18/2012 2:40 PM 012 2:43 (specimen) EST PM EST Giorgio Cardona MD HEMATOLOGY ORDERABLES Performing Organization Address City/State/ZIP Code [place] [address] MARIAMA MAST Hemoglobin A1c (09/18/2012 2:40 PM EST) [facility] Method Time Signature Hemoglobin A1C 6.0 4.3 - 6.1 CERNER % MILLENNIUM Est Avg Gluc See note mg/dL [facility] Comment: Estimated Average Glucose not appropriat [...] with hemoglobinopathies. Additional resources are available on [facility] ADA website: ??http://professional.diabetes.org/gluc osecalculator.aspx Reference: Eliot FAJARDO, Abhishek J, Denisse R, et al. ??Tr anslating the A1C assay into estimated average glucose values. ??Diabetes Care 2008:31(8):8653-8741. Specimen Anatomical Collection Method Collection Time Receive d Time (Source) Location / / Volume Laterality Blood specimen 09/18/2012 2:40 PM 012 2:43 (specimen) EST PM EST Resulting Agency Comment Spec In Lab Giorgio Cardona MD CHEMISTRY ORDERABLES Performing Organization Address City/State/ZIP Code Ph[place] [address] CERNER MILLENNIUM Folate, serum (09/18/2012 2:40 PM EST) athologist [facility] Folate Lvl 10.6 4.6 - 34.8 CERNER ng/mL MILLENNIUM Comment: Please note: Serum Folate Reference Rang e update 06/06/2012 1130 AM: New Range: 4.6 to 34.8 ng/ml Old Range: 7.4 to 35.0 ng/ml Specimen Anatomical Collection Method Collection Time Receive d Time (Source) Location / / Volume Laterality Blood specimen 09/18/2012 2:40 PM 012 2:44 (specimen) EST PM EST Resulting Agency Comment Spec In Lab Giorgio Cardona MD CHEMISTRY ORDERABLES Performing Organization Address City/[facility]/[place] [address] CERNER MILLENNIUM Vitamin B12 (09/18/2012 2:40 PM EST) athologist [facility] Vitamin B-12 405 207 - 974 CERNER pg/mL [facility] Specimen Anatomical Collection Method Collection Time Receive d Time (Source) Location / / Volume Laterality Blood specimen 09/18/2012 2:40 PM 012 2:44 (specimen) EST PM EST Resulting Agency Comment Spec In Lab Giorgio Cardona MD CHEMISTRY ORDERABLES Performing Organization Address City/[facility] Phon e Number [address] CERNER MILLENNIUM VIT D Total Evaluation (09/18/2012 2:40 PM EST) athologist [facility] 25-OH Vit D 31 30 - 100 CERNER Total ng/mL MILLBANNERIUM Comment: Deficient <10 ng/mL Insufficient 10 to [...] Location / / Volume Laterality Blood specimen 09/18/2012 2:40 PM 012 2:44 (specimen) EST PM EST Resulting Agency Comment Spec In Lab Giorgio Cardona MD CHEMISTRY ORDERABLES Performing Organization Address City/[facility]/ZIP Code Phon e Number [address] [facility] TSH (09/18/2012 2:40 PM EST) athologist Signature TSH 2.56 0.27 - 4.20 CERNER mcIU/mL [facility] Specimen Anatomical Collection Method Collection Time Receive d Time (Source) Location / / Volume Laterality Blood specimen 09/18/2012 2:40 PM 012 2:44 (specimen) EST PM EST Resulting Agency Comment Spec In Lab Giorgio Cardona MD CHEMISTRY ORDERABLES Performing Organization Address City/[facility]/ZIP Code Phon e Number [address] [facility] (ABNORMAL) T4, free (09/18/2012 2:40 PM EST) athologist Signature Free T4 1.66 (H) 0.90 - 1.60 CERNER ng/dL [facility] Specimen Anatomical Collection Method Collection Time Receive d Time (Source) Location / / Volume Laterality Blood specimen 09/18/2012 2:40 PM 012 2:44 (specimen) EST PM EST Resulting Agency Comment Spec In Lab Giorgio Cardona MD CHEMISTRY ORDERABLES Performing Organization Address City/[facility] Phon e Number [address] [facility] Lipid panel (fasting) (09/18/2012 2:40 PM EST) athologist Signature Chol, Total 174 <=199 mg/dL CERNER MILLENNIUM Comment: Recommendations of the NCEP Adult Treatm ent Panel for the following risk cutoff thresholds for the [place] popul[place] n: Desirable: <200 mg/dL Borderline High: 200-239 mg/dL High: > or = 240 mg/dL Triglycerides 85 <=149 mg/dL CEREVA MILLENN IUM Comment: Reference Range: Normal triglycerides: ??<150 mg/dL Borderline high: ??150-199 mg/dL High: ??200-499 mg/dL Very high: ??>cd=277 mg/dL KENDRA 2001; 285(19):7015-9166 HDL 63 >=40 mg/dL CERNER MILLENNIUM Comment: Reference range: ??Low HDL: ?? < 40 mg/dL ??Normal: ?40-60 mg/dL ??Desirable: > 60 mg/dL KENDRA 2001; 285(19):2338-9612 LDL Cholesterol 94 <=99 mg/dL MARIAMA PATRICK NIUM Comment: Reference range: ?? Optimal: ?<100 mg/dL ?? Near Optimal/Above Optimal: ?? 100-1 29 mg/dL ?? Borderline high: ?130-159 mg/dL ?? High: ? 160-189 mg/dL ?? Very high: ?>mg=054 mg/dL KENDRA 2001: 285(19):3599-1815 Chol/HDL Ratio 2.8 ratio CERNER MILLENNI UM [...] Location / / Volume Laterality Blood specimen 09/18/2012 2:40 PM 012 2:44 (specimen) EST PM EST Resulting Agency Comment Spec In Lab Giorgio Cardona MD CHEMISTRY ORDERABLES Performing Organization Address City/State/ZIP Code [place] [address] CERNER MILLENNIUM Comprehensive metabolic panel (non-fasting) (09/18/2012 2:40 PM EST) athologist Signature Glucose Lvl 94 60 - 199 CERNER mg/dL MILLENNIUM Comment: Diabetes: >=200 mg/dL plus symp toms BUN 17 10 - 20 mg/dL CERNER MILLENNIU M Creatinine 1.08 0.80 - 1.50 mg/dL CERNER MILL ENNIUM Comment: Please note that the pediatric reference intervals supplied above were not validated at [facility] [place] [place]. Results from pediatri c [...] if there are any qu estions. Chloride 99 98 - 107 mmol/L CERNER MILLENN IUM CO2 30 22 - 31 mmol/L CERNER MILLENNI UM Anion Gap 8 5 - 15 mmol/L CERNER MILLENNIU M [...] 120 unit/L CERNER MILLENN IUM Total Bilirubin 0.2 0.2 - 1.3 mg/dL CERNER M ILLENNIUM Bili, Direct 0.1 0.0 - 0.3 mg/dL CEREVA DAMON ENNIUM Estimated GFR >60 >=60 MARIAMA Pugh Comment: The National Kidney Disease Education Pr [...] Location / / Volume Laterality Blood specimen 09/18/2012 2:40 PM 012 2:44 (specimen) EST PM EST Resulting Agency Comment Spec In Lab Giorgio Cardona MD CHEMISTRY ORDERABLES Performing Organization Address City/[facility]/[place] [address] CERNER MILLENNIUM (ABNORMAL) CBC (with Diff) (09/18/2012 2:40 PM EST) P athologist Signature WBC 4.2 4.0 - 10.0 CERNER x10(3)/mcL MILLENNIUM RBC 4.09 (L) 4.63 - CERNER 6.08 MILLENNIUM x10(6)/mcL Hemoglobin 13.2 (L) 13.7 - CERNER 17.5 gm/dL MILLENNIUM Hematocrit 39.5 (L) 40.0 - CERNER 51.0 % MILLENNIUM MCV 96.6 (H) 79.0 - CERNER 92.0 fL MILLENNIUM MCH 32.3 (H) 25.6 - CERNER 32.2 pg MILLENNIUM MCHC 33.4 32.0 - CERNER 36.5 gm/dL MILLENNIUM Platelets 212 145 - 370 CERNER x10(3)/mcL MILLENNIUM RDWSD 47.9 (H) 35.0 - CERNER 46.0 fL MILLENNIUM RDWCV 13.6 10.9 - CERNER 14.4 % MILLENNIUM MPV 10.8 9.0 - 12.0 CERNER fL MILLENNIUM Specimen Anatomical Collection Method Collection Time Receive d Time (Source) Location / / Volume Laterality Blood specimen 09/18/2012 2:40 PM 012 2:43 (specimen) EST PM EST Resulting Agency Comment Spec In Lab Giorgio Cardona MD HEMATOLOGY ORDERABLES Performing Organization Address City/[facility]/[place] [address] CERNER MILLENNIUM documented in this encounter Visit Diagnoses Diagnosis Dyslipidemia Other and unspecified hyperlipidemia GERD (gastroesophageal reflux disease) Esophageal reflux Hypertension Unspecified essential hypertension Lung cancer Malignant neoplasm of bronchus and lung, unspecified site Multinodular goiter Nontoxic multinodular goiter Osteoarthritis Osteoarthrosis, unspecified whether gene ralized or localized, unspecified site Pancreatic cyst Cyst and pseudocyst of pancreas Post-nasal drip Postnasal drip Prostate cancer Malignant neoplasm of prostate S/P mitral valve repair Other postprocedural status 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 DR [place] [address] documented as of this encounter
--- OUTSIDE RECORDS SUMMARY | 2022-10-09 16:18 | XMS_ITS | Encounter Summary ---
:1940 Author Organization [facility] [place] [address] Care Team Providers Name Role Phone Giorgio Cardona MD Primary Care Provider Reason for Visit Reason Comments Annual Exam coughing up some phecarin lee ght cough Encounter Details Date Type Department Care Team Description 09/18[facility]2012 [facility] GERD (gastroesophageal reflu x disease); [facility] Hypertension; [facility] INTERNAL Lung cancer; [place], [place] MEDICINE Multinodular goiter; [id number] [place] [address] Osteoarthritis; [phone] Pancreatic cyst ; (Work) Post-nasal drip; Prostate cancer; S/P mitral valv e repair; Vocal cord para lysis; Preventative he alth care Social History Tobacco Use Types Packs/Day Years Used Date Smoking Tobacco: Never Smokeless Tobacco: Never Alcohol Use Standard Drinks/Week Comments No 0 (1 standard drink = 0.6 oz pure alcoho l) Sex Assigned at Date Recorded Not on file documented as of this encounter Last Filed Vital Signs Vital Sign Reading Time Taken Comments Blood Pressure 105/63 09/18/2012 1:07 PM EST Pulse 67 09/18/2012 1:07 PM EST Temperature - - Respiratory Rate - - Oxygen Saturation 98% 09/18/2012 1:07 PM EST room ai r Inhaled Oxygen Concentration - - Weight 68 kg (150 lb) 09/18/2012 1:07 PM EST Height 170.2 cm (5' 7) 09/18/2012 1:07 PM EST Body Mass Index 23.49 09/18/2012 1:07 PM EST documented in this encounter Patient Instructions Patient InstructionsGiorgio Cardona MD - 09/18/2012 1:10 PM EST bloodwork today Metamucil for fiber Advanced directives - please send in. Consider shingles vaccine - ask insurance company. documented in this encounter Progress Notes Giorgio Cardona MD - 09/18/2012 1:33 PM EST Annual Assessment of Medical Issues History of Presenting Illness: Just went back to work. Had an episode of diverticulitis. Did a CT scan. This was last Sunday. Reportedly report from patient. Initiated on augmentin. He feels much better from this standpoint. No nausea/vomiting. No fevers or chills. Nose running currently. Then stops. Knee - loves it. Feels that can walk now and does not need to stop. Was not like it previously was. Only when goes to bed. Raises it. Has not needed the ice pack recently. Was a positive experience. Going up ladders. Breathing is OK - hoarseness is a problem. Wants opinion about botox injection. Wants to go to [place]. No urinary symptoms. Last echo in 2010. No chest pain, palpitations, NIEVES. Has some fluid in legs. Take some lasix - this helps considerably he notes. Heartburn is much better currently - got rid of coffee which helped considerably. Patient reported measures in the past 7 days Pain:1 Physical Health:Good Mental Health:Good Patient Active Problem List Diagnoses ??? Preventative health care Immunization History Administered [...] features. 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 oD2zGcTv; KRAS negative, EGFR negative --09/2010: CT scan [...] Lifeline x Assist Device x ( ) cane ( ) walker Depression Risk x Outpatient encounter prescriptions as of 09/18/2012 Medication Sig Dispense Refill ??? amoxicillin-clavulanate (AUGMENTIN) 875-125 mg per tablet Take 1 tablet by mouth 2 times daily. For ten days ??? atenolol (TENORMIN) 50 mg tablet Take [...] History Narrative ??? No narrative on file family history includes Asthma in his mother; Heart Failure in his father; and Thyroid Disease in his paternal grandmother. Review [...] rest or with movement Objective Filed Vitals: 09/18/12 1307 BP: 105/63 Pulse: 67 Height: 170.2 cm (5' 7) Weight: 68.04 kg (150 lb) SpO2: 98% Gen -no acute distress. Alert, responsive and comfortable. Hoarse voice HEENT - EOMI, PERRL, TMs and canals [...] - No rashes, lesions, plaques, nodules Neurological -grossly normal Gait: grossly intact with normal stride length, speed, and arm swing Assessment/Plan: 1. Post-nasal drip/allergic rhinitis Much improved currently. 2. Hyperthyroidism s/p radioactive iodine 3. Goiter causing ? anatomical obstruction --continue to monitor biochemical parameters 4. DJD Knee --much improved s/p TKA. Very pleased with results. 5. S/p Mitral Regurgitation --reviewed echo in 2010. Suggest rechecking again in 2012 since was very mild. 6. Depression/Insomnia --much improved at this time. Happy to be back for work. 7. Lung Cancer --repeat in February 2013 8. Pancreatic Lesion --on recent CT stable. Obtain CT results. Likely 1-2 year f/u. 9. GERD --stable on current regimen 10. Prostate Cancer --continue PSA yearly 11. Diverticulitis --needs repeat colo likely. Await Ct results prior to scheduling 12. Hypertension Hypertension Plan of Care [x] Stable and controlled: continue current medications as prescribed [] Uncontrolled: change medication as follows: [] Life style modifications discussed: weight loss, low salt diet, exercise and moderation of alcohol intake [] Return for assessment in This plan of care was made in collaboration with the patient/family 13. Dyslipidemia Check lipids 14. Health Maintenance --discussed routine prevention of health including diet and exercise and weight management --personalized health program discussed with the patient --explained importance of vaccinations and reasoning for such --discussed preferences with regard to colon cancer screening and prostate cancer (males) and breastcancer/osteoporosis (females) --ascertained DPOA-h and advanced directives and discussed briefly advanced care planning as well. --the patient currently needs:advanced directives to be brought in. uptodateon vaccines other than shingles I counselled the patient on the above [...] by one of my nurses, letter, or [facility]. Next Appointment: 6 months Orders placed in this Encounter: Orders Placed This Encounter Procedure ??? Cbc (with diff) Standing Status: Future Number of Occurrences: Standing Expiration Date: 11/17/2012 ??? Comprehensive metabolic panel (non-fasting) Standing Status: Future Number of Occurrences: Standing Expiration Date: 11/17/2012 ??? Lipid panel (fasting) Standing Status: Future Number of Occurrences: Standing Expiration Date: 11/17/2012 ??? T4, free Standing Status: Future Number of Occurrences: Standing Expiration Date: 11/17/2012 ??? Tsh Standing Status: Future Number of Occurrences: Standing Expiration Date: 11/17/2012 ??? Vit d total evaluation Standing Status: Future Number of Occurrences: Standing Expiration Date: 11/17/2012 ??? Vitamin b12 Standing Status: Future Number of Occurrences: Standing Expiration Date: 11/17/2012 ??? Folate, serum Standing Status: Future Number of Occurrences: Standing Expiration Date: 11/17/2012 ??? Hemoglobin a1c Standing Status: Future Number of Occurrences: Standing Expiration Date: 11/17/2012 Laboratory Studies No results found for this or any previous visit (from the past 72 hour(s)). documented in this encounter Plan of Treatment Upcoming Encounters Date Type Specialty Care Team Description 10/11/2022 Office Visit Dermatology Virgilio Mckeon MD [facility] DR CHRISTIANO HENSON-DERMAT OLOGY [place], [place] [address] (Leroy bhatia) 10/16/2022 Office Visit Otolaryngology Frank Buchanan MD [facility] OTOLARYNGOLOGY Sarah EPT. [place], [place] [address] (Leroy rk) 11/29/2022 Appointment Hematology and Oncology 11/29/2022 Office Visit Radiation Oncology Emerald Leyva APRN [facility] RADIATION ONCCESAR GY [place], [place] [address] (Leroy bhatia) documented as of this encounter Results Hemoglobin A1c (09/18/2012 2:40 PM EST) [facility] gist Method Time Signature Hemoglobin A1C 6.0 4.3 - 6.1 CERNER % MILLENNIUM Est Avg Gluc See note mg/dL CERNER [...] with hemoglobinopathies. Additional resources are available on [facility] ADA website: ??http://professional.diabetes.org/gluc osecalculator.aspx Reference: Eliot FAJARDO, Abhishek J, Denisse R, et al. ??Tr anslating the A1C assay into estimated average glucose values. ??Diabetes Care 2008:31(8):1724-2117. Specimen Anatomical Collection Method Collection Time Receive d Time (Source) Location / / Volume Laterality Blood specimen 09/18/2012 2:40 PM 012 2:43 (specimen) EST PM EST Resulting Agency Comment Spec In Lab Giorgio Cardona MD CHEMISTRY ORDERABLES Performing Organization Address City/State/[place] [address] MARIAMA DAMONENNIUM Folate, serum (09/18/2012 2:40 PM EST) athologist Signature Folate Lvl 10.6 4.6 - 34.8 CERNER [...] Cardona MD CHEMISTRY ORDERABLES Performing Organization Address City/[facility]/ZIP [place] [address] CERNER MILLENNIUM Vitamin B12 (09/18/2012 2:40 PM EST) athologist Signature Vitamin B-12 405 207 - 974 CERNER pg/mL MILLENNIUM Specimen Anatomical Collection Method Collection Time Receive d Time (Source) Location / / Volume Laterality Blood specimen 09/18/2012 2:40 PM 012 2:44 (specimen) EST PM EST Resulting Agency Comment Spec In Lab Giorgio Cardona MD CHEMISTRY ORDERABLES Performing Organization Address City/[facility]/ZIP [place] [address] CERNER MILLENNIUM VIT D Total Evaluation (09/18/2012 2:40 PM EST) athologist Signature 25-OH Vit D 31 30 - 100 CERNER Total ng/mL MILLENNIUM [...] Cardona MD CHEMISTRY ORDERABLES Performing Organization Address City/[facility] Phon e Number [address] CERNER MILLENNIUM TSH (09/18/2012 2:40 PM EST) athologist Signature TSH 2.56 0.27 - 4.20 CERNER mcIU/mL [facility] Specimen Anatomical Collection Method Collection Time Receive d Time (Source) Location / / Volume Laterality Blood specimen 09/18/2012 2:40 PM 012 2:44 (specimen) EST PM EST Resulting Agency Comment Spec In Lab Giorgio Cardona MD CHEMISTRY ORDERABLES Performing Organization Address [facility] Phon e Number [address] CERNER MILLENNIUM (ABNORMAL) T4, free (09/18/2012 2:40 PM EST) athologist Signature Free T4 1.66 (H) 0.90 - 1.60 CERNER ng/dL [facility] Specimen Anatomical Collection Method Collection Time Receive d Time (Source) Location / / Volume Laterality Blood specimen 09/18/2012 2:40 PM 012 2:44 (specimen) EST PM EST Resulting Agency Comment Spec In Lab Giorgio Cardona MD CHEMISTRY ORDERABLES Performing Organization Address City/[facility] Phon e Number [address] [facility] Lipid panel (fasting) (09/18/2012 2:40 PM EST) athologist Signature Chol, Total 174 <=199 mg/dL [facility] Comment: Recommendations of the NCEP Adult Treatm ent Panel for the following risk cutoff thresholds for the [place] populatio n: Desirable: <200 mg/dL Borderline High: 200-239 mg/dL High: > or = 240 mg/dL Triglycerides 85 <=149 mg/dL CERNER MILLENN IUM Comment: Reference Range: Normal triglycerides: ??<150 mg/dL Borderline high: ??150-199 mg/dL High: ??200-499 mg/dL Very high: ??>sw=552 mg/dL KENDRA 2001; 285(19):1665-6493 HDL 63 >=40 mg/dL MARIAMA MAST Comment: Reference range: ??Low HDL: ?? < 40 mg/dL ??Normal: ?40-60 mg/dL ??Desirable: > 60 mg/dL KENDRA 2001; 285(19):2678-3935 LDL Cholesterol 94 <=99 mg/dL MARIAMA GUDINO Comment: Reference range: ?? Optimal: ?<100 mg/dL ?? Near Optimal/Above Optimal: ?? 100-1 29 mg/dL ?? Borderline high: ?130-159 mg/dL ?? High: ? 160-189 mg/dL ?? Very high: ?>kl=589 mg/dL KENDRA 2001: 285(19):4605-8922 Chol/HDL Ratio 2.8 ratio MARIAMA MCKEE UM Comment: A Cholesterol to HDL ratio below 4:1 is desirable. ??Studies suggest that increased CAD risk occurs at ratios abov e 5 for females and above 6 for men. ? [place] Heart Association ??(htt p://www.americanheart.org) ? Anay Int Med, 1994; 121:641 ? AM J Med, 1998; 105(1A):48S Specimen Anatomical Collection Method Collection Time Receive d Time (Source) Location / / Volume Laterality Blood specimen 09/18/2012 2:40 PM 012 2:44 (specimen) EST PM EST Resulting Agency Comment Spec In Lab Giorgio Cardona MD CHEMISTRY ORDERABLES Performing Organization Address City/State/ZIP [place] [address] CERNER MILLENNIUM Comprehensive metabolic panel (non-fasting) (09/18/2012 2:40 PM EST) P athologist Signature Glucose Lvl 94 60 - 199 CERNER mg/dL MILLENNIUM Comment: Diabetes: >=200 mg/dL plus symp toms BUN 17 10 - 20 mg/dL CERNER MILLENNIU M Creatinine 1.08 0.80 - 1.50 mg/dL CERNER MILL ENNIUM Comment: Please note that the pediatric reference intervals supplied above were not validated at [facility]. Results from pediatri c patients should be [...] disease. References: http://nkdep.nih.gov/resources/NKDEP_Sug gestn4Labs_0606_508.pdf http://www.kidney.org/professionals/kls/ pdf/faq_gfr.pdf Cole Avendano, Jigna NA, [place], Rony TS, Indy [...] Organization Address City/State/[place] [address] [facility] (ABNORMAL) CBC (with Diff) (09/18/2012 2:40 PM [...] Organization Address City/State/ZIP [place] [address] [facility] documented in this encounter Visit Diagnoses Diagnosis [...] facility documented in this encounter Care Teams Facilities Flight Check Pilot Relationship Specialty Start Date End Date Giorgio Cardona MD PCP - General 10/04/10 04/10/[address] [facility] [address] [place] [address] documented as of this encounter
--- OUTSIDE RECORDS SUMMARY | 2022-10-09 16:18 | XMS_ITS | Encounter Summary ---
:1940 Author Organization [facility] Address [facility] [address] [place] [address] Care Team Providers Name Role Phone Giorgio Cardona MD Primary Care Provider Reason for Visit Reason Comments Pre-op Exam thyroid/stomach bothers him per pt/rt knee painful when walking and when he goes to bed Encounter Details Date Type Department Care Team Description 06/17/2012 Office Visit Internal Medicine at [facility], Judy Garza APRN Toe pain, right (Primary Dx); [facility] [address] Toe inflammation; [place], [place] [address] [place] [address] Social History Tobacco Use Types Packs/Day Years Used Date Smoking Tobacco: Never Smokeless Tobacco: Never Alcohol Use Standard Drinks/Week Comments No 0 (1 standard drink = 0.6 oz pure alcoho l) Sex Assigned at Date Recorded Not on file documented as of this encounter Last Filed Vital Signs Vital Sign Reading Time Taken Comments Blood Pressure 105/58 06/17/2012 1:05 PM EDT Pulse 65 06/17/2012 1:05 PM EDT Temperature - - Respiratory Rate - - Oxygen Saturation - - Inhaled Oxygen Concentration - - Weight 68 kg (150 lb) 06/17/2012 1:05 PM EDT Height 172.7 cm (5' 8) 06/17/2012 1:05 PM EDT Body Mass Index 22.81 06/17/2012 1:05 PM EDT documented in this encounter Patient Instructions Patient InstructionsJudy Melendrez APRN - 06/17/2012 1:06 PM EDT Keflex 500mg three times for 1 week (or less if Dr. Quezada does not feel needed any longer). Activa yogurt, 1 daily while on the antibiotic. documented in this encounter Progress Notes Judy Melendrez APRN - 06/17/2012 1:24 PM EDT ESTABLISHED PATIENT VISIT I. HISTORY a. Reason(s) for Visit: Alfredito Mina 72 y.o. male presents today due to complaint(s) of: Chief Complaint Patient presents with ??? Pre-op Exam thyroid/stomach bothers him per pt/rt knee painful when walking and when he goes to bed b. History of Present Illness: Had pre-op for R TKR done on 05/20/12 for Damien, surgery on 06/19/12. Doing under spinal block due to vocal cord issues s/p thyroidectomy 11/2010. Has had vocal cord paralysis since. No trouble swallowing. Does have some burning w/ drinking juice / acid foods. Not burn but like it is swelling. Cold water feels good. Coffee does make it feel bigger. Here because recent toe nail clip. He had nails clipped 3-[address] 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 No fever. Hoping to get the right knee surgery done and less pain, rate sachin 10/10 in knee. Sharp pain even w/ turning. Once up and going helps some. Patient Active Problem List Diagnoses Code ??? [...] unspecified 787.20 ??? Vocal cord paralysis 478.30K Allergies Allergen Reactions ??? Lactose Other (See Comments) Sneezing Current outpatient prescriptions ordered prior to encounter Medication Sig Dispense Refill ??? omeprazole (PRILOSEC) 10 mg capsule Take 10 mg by mouth 2 times daily. ??? potassium chloride (K-DUR) 10 mEq tablet Take 10 mEq by mouth daily. ??? levothyroxine (SYNTHROID) 125 mcg tablet Take 1 tablet by mouth every morning. 30 tablet 12 ??? atenolol (TENORMIN) 50 mg tablet Take 0.5 tablets by mouth daily. 30 tablet 3 ??? DOCUSATE SODIUM (COLACE ORAL) Take by mouth daily. ??? naproxen sodium (ALEVE) 220 mg tablet Take 220 mg by mouth 2 times daily. ??? furosemide (LASIX) 20 mg tablet 40 MG = 2 Tablet(s) PO Once daily and PRN swelling ??? terazosin (HYTRIN) 2 mg capsule 4 MG = 2 Capsule(s) PO QHS c. Review of Systems: Constitutional - no fevers, chills, weight loss or gain, fatigue Cardiovascular - No CP, palpitations, angina, NIEVES, SOB Respiratory - No SOB, NIEVES, wheeze, cough, sputum production HEENT - No difficulty swallowing, hearing, No nasal congestion or postnasal drip Gastrointestinal - No abdominal pain, nausea, GERD, constipation, diarrhea, blood in stool Musculoskeletal - No weakness, pain at rest or with movement Psychiatric - No depression, anxiety, memory loss. d. PMH Past Medical History Diagnosis Date ??? Lung cancer ??? Prostate cancer s/p XRT ??? Difficulty in swallowing ??? Dry mouth II. PHYSICAL EXAM: BP 105/58 Pulse 65 Ht 172.7 cm (5' 8) Wt 68.04 kg (150 lb) BMI 22.81 kg/m2 General - No acute distress, conversing without difficulty, + hoarseness Lungs - Clear to auscultation bilaterally without wheeze or crackles. Heart - RRR, S1,S2, no murmur, gallop or rub. Extremities - No edema. Pulses intact. Skin - right great toe, lateral aspect of the toe nail w/ erythema, not overly warm to touch, no drainage but has a gummy appearance to the outter nail bed. The erythema does not extend past the distalphalange of the right great toe. III. ASSESSMENT/PLAN: Right great toe, mild inflammation vs ? Mild cellulitis. Does not appear overtly infected but given the upcoming right TKR surgery in 2 days, called and discussed w/ Dr. Quezada. Will plan to do ABX and he will assess the morning of surgery. -Keflex 500mg TID for 1 week (less if deemed unnecessary when seeing Dr. Quezada Wed AM) -Activa yogurt while on ABX Pt verbalizes understanding. Otherwise, plan to proceed. documented in this encounter Plan of Treatment Upcoming Encounters Date Type Specialty Care Team Description 10/11/2022 Office Visit Dermatology Virgilio Mckeon MD [facility] DR CHRISTIANO HENSON-DERMAT OLOGY [place], [place] [address] (Wo rk) 10/16/2022 Office Visit Otolaryngology Frank Buchanan MD [facility] OTOLARYNGOLOGY Sarah EPT. [place], [place] [address] (Wo rk) 11/29/2022 Appointment Hematology and Oncology 11/29/2022 Office Visit Radiation Oncology Emerald Leyva APRN [facility] RADIATION ONCOLO [place], [place] [address] (Wo rk) documented as of this encounter Visit Diagnoses Diagnosis Toe pain, right - Primary Pain in limb Toe inflammation Unspecified local infection of skin and subcutaneous tissue Cellulitis Cellulitis and abscess of unspecified si te documented in this encounter Care Teams [employer] Designer Relationship Specialty Start Date End Date Giorgio Cardona MD PCP - General 10/04/10 04/10/[address] [facility] [address] [place] [address] documented as of this encounter
--- OUTSIDE RECORDS SUMMARY | 2022-10-09 16:18 | XMS_ITS | Encounter Summary ---
:1940 [place] [address] Care Team Providers Name Role Phone Arabella Rob MD Primary Care Provider Encounter Details Date Type Department Care Team Description 06/19/2012 Surgery Main Operating Room Alessio Quezada, TO AMEENA KNEE ARTHROPLASTY Sharita López MD (WRVU 20.72) [facility] [place] [address] [place] [address] [phone] (Wo rk) Social History Tobacco Use Types [...] documented in this encounter Discharge Instructions Patient Damion YatesROSITA - 06/19/2012 3:15 PM EDT Activity: You [...] ). The INR should be reportedto the [facility] Ortho clinic at [phone], and you will be informed of any [...] bowel movement. You can also take an mobd-icb-hlmvybx medication, miralax to help if needed. 2. [...] lightly covered. 5. Call your orthopaedic surgeon (#[phone]) with any fevers, chills, sweats, redness or [...] rehab facility. JEFFERY HAINES RN. Alessia Samson PTA - 06/22/2012 11:19 AM EDT Physical Therapy [...] 30 minutes. Timed interventions: 30 minutes. Pager: [phone] ALESSIA SAMSON PTA Physical Therapy Rehabilitation Department T Osmar Olivera MD - 06/22/2012 5:30 AM EDT Orthopaedic Surgery Progress Note Surgery: Right TKA S: No major issues, pain controlled, denies CP/SOB/N/V. O: Vitals: Temp: [36.5 ??C (97.7 ??F)-37.4 ??C (99.3 ??F)] Heart Rate: [72-75] Resp: [16] BP: (100-105)/(55-57) SpO2: [97 %] I/O last 3 completed shifts: In: 2119 [P.O.:212] Out: 3050 [Urine:3050] I/O this shift: In: [...] 06/21/2012 3:24 PM EDT Office of Care Management/Forming Machine Upkeep Mechanic Helper Group 2 Patient Name: Katlin Mina : 1940 Patient has been offered a Swing bed at [facility]. For Sunday, 8-8 ifpatient is medically ready for discharge. Patient will travel with his by private car. No MD to MD report necessary or Please have MD call at : Please call Nursing Report to [phone], ask for Swing 2nd floor hand glove cleaner. Info to accompany patient: Narcotic Prescriptions Copies of Medication Administration Records and IV sheets for past 10 days. Plan: Forming Machine Upkeep Mechanic Helper will be available to the patient and CRC for further assistance. Patient will be discharged to: [facility] [address] [place] [address] NICKOLAS ROSAS Forming Machine Upkeep Mechanic Helper Alessia Samson PTA - 06/21/2012 8:32 AM [...] minutes Total timed interventions: 32 minutes Pager: [phone] ALESSIA SAMSON PTA Physical Therapy Rehabilitation Department [...] wound prior to discharge. Rosario out Pain Control:CERTIFIED SKI PATROLLER, Oral Dispo:Rehab on Sat. Follow up as [...] warfarin 5 mg Oral Once ??? DISCONTD: CERTIFIED SKI PATROLLER melchor ??? sodium chloride 0.9 % 5 [...] regional anesthesia team with any questions (pager [phone]). Alessio Vences - 06/20/2012 4:26 PM EDT Last Updated 02/09/11-JR/PMB Date:06/20/2012 Time: 4:26 PM Pertinent Problem List: [...] Office of Care Management (OCM) / Clinical Jet Piercer Operator (CRC)/ Initial Assessment Discussed patient with Provider Team and in multidisciplinary discharge-planning rounds. Reviewed record and interviewed patient. Introduced/reviewed CRC role and services accepted. REASON for HOSPITALIZATION: DJD (degenerative joint disease) of knee ; s/p R TKA Cont. R femoral nerve block; CERTIFIED SKI PATROLLER;WBAT;PT eval; Coumadin. PMH/PSH: Constipation Dyslipidemia GERD (gastroesophageal [...] CURRENT HOME/COMMUNITY SERVICES/EQUIPMENT: Lives with spouse in [facility];; 3 steps to enter; no prior DME BIODIESEL PRODUCTION TECHNICIAN REFERRAL: , BIODIESEL PRODUCTION TECHNICIAN - Support/Financial/Medication Assistance; See BIODIESEL PRODUCTION TECHNICIAN notes for further needs. PRIMARY CARE PHYSICIAN: ARABELLA ROB MD, MD [facility] GENERAL INTERNAL MEDICINE / NELL N* [phone] POTENTIAL DISCHARGE NEEDS: Would like to go to rehab.; reviewed SNF choices and Medicare coverage;hewould like referrals to :#1 [facility] swing;#2 [facility]; referral office notified; await response; likely [...] and assist with dischargeplanning while hospitalized . T Ade Frias MD - 06/20/2012 9:20 AM [...] 06/20/2012 PRN and SCHEDULED MEDICATIONS: ??? DISCONTD: CERTIFIED SKI PATROLLER melchor ??? warfarin 5 mg Oral Once [...] daily order reminder Oral Q24H ??? DISCONTD: CERTIFIED SKI PATROLLER melchor ??? polyethylene glycol (MIRALAX) packet 17 [...] regional anesthesia team with any questions (pager [phone]). I have seen the patient and reviewed [...] In: 2078 [P.O.:710; I.V.:1269; IV Piggyback:100] Out: 2140 [Urine:1700; Other:440] Exam: General: NAD, awake/alert Resp: [...] Abx x 24 hours Rosario-d/c pod#1 Pain Control:CERTIFIED SKI PATROLLER, Oral Dispo: Home vs PT per Rehab [...] or tingling. Patient oriented to room, call renteria, IS. RN will monitor patient Ade Frias MD - 06/19/2012 5:00 PM EDT Regional Service To PACU to barrel rifler hook ambit pump. RN noticed pt c/o full [...] will follow. Catheter hooked up without incident. [facility] Anesthesia Team 4643 Klaus Ponce MD [...] taste. Instructed on the use of the CERTIFIED SKI PATROLLER. Verbalized understanding. Movement BLE noted. Tylenol given per order/ crushed per pt's request. 1700 - ambit pump started. C/O pain lateral R knee. Reminded of CERTIFIED SKI PATROLLER instructions. States eye discomfort is better. Tolerates [...] INGUINAL, RECURRENT performed by NOREEN BOWIE at [facility] MAIN OR ??? Thyroidectomy=substernal, transcerv 11/30/2011 THYROIDECTOMY, INCL. SUBSTERNAL, CERVICAL APPROACH performed by FRANK MAC at [facility] MAIN OR ??? Somatosensory test, any/all per. nerves, trunk or head 11/30/2011 FACIAL NERVE MONITORING, SETUP performed by FRANK MAC at [facility] MAIN OR ??? Upper gi endoscopy, exam 01/29/2012 UPPER GI ENDOSCOPY performed by VICKI SON at [facility] ENDOSCOPY ??? Lung cancer surgery [...] using walker Discharge Recommendations: Patient requires ongoing / supervision. Patient would benefit from skilled therapy interventions to promote functional independence and safety while improving activity tolerance. Physical Therapist recommends: Occupational Therapy consult Total treatment time: 35 minutes Total timed treatment: 15 minutes VICENTE SIMMONS PT Pager: [phone] Op Note - Alessio Quezada - 06/19/2012 3:21 PM EDT [facility] Operative Note Patient Name: Katlin Mina : [id number] MR#: [id number] Case Date: 06/19/2012 Surgeon: Surgeon(s) and Role: [...] Implant Name Type Inv. Item Serial No. Main Galley Scullion Lot No. LRB No. Used Action CEMENT,BNE,SMARTSET MV,EO,40GM ([id number]) - [id number] IMPLANTS CEMENT,BNE,SMARTSET MV,EO,40GM ([id number]) Depuy Director Transition - 3527 [id number] Right 1 Implanted INSERT,TIBL,STBLZD,4,10MM ([id number]) (AUTOREQ) - [id number] IMPLANTS INSERT,TIBL,STBLZD,4,10MM ([id number]) (AUTOREQ) Depuy Director Transition - 3527 [id number] Right 1 Implanted COMPONENT,TIBL,CO CR,CMNTD,4 ([id number]) (AUTOREQ) - [id number] IMPLANTS COMPONENT,TIBL,CO CR,CMNTD,4 ([id number]) (AUTOREQ) Depuy Director Transition - 3527 [id number] Right 1 Implanted COMPO,FEM,POS STB,RT,4 ([id number]) (AUTOREQ) - [id number] IMPLANTS COMPO,FEM,POS STB,RT,4 ([id number]) (AUTOREQ) Depuy Director Transition - 3527 [id number] Right 1 Implanted PATELLA,RND XSML,32MM ([id number]) (AUTOREQ) - [id number] IMPLANTS PATELLA,RND XSML,32MM ([id number]) (AUTOREQ) Depuy Director Transition - 3527 [id number] Right 1 Implanted Specimen knee parts Disposition: [...] patient, surgery, and site according to the [facility] [place] Protocol. A nonsterile tourniquet was placed high around the upper thigh. The lower extremity was then prepped and draped in the usual sterile fas ion. A 12-cm midline incision was marked [...] stab incision and hooked up to the constavac system. The arthrotomy was closed with 0 Vicryl. FINAL ROM 0-105. The wound was irrigated prior to final closure. The subcutaneous tissues were reapproximated with 2-0 Vicryl and 3-0 Vicryl. The skin was closed with 3-0 nylon. The wounds were cleansed and dried and sterile dressing consisting Mepilex, Kerlix, and a tuq-ct-hwied Ángel bandage was applied. Cryo/Cuff and Venodyne [...] features. 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 [id number]; KRAS negative, EGFR negative --09/2010: CT scan [...] 8 hrs: BP Temp Pulse Resp SpO2 06/22/12 0949 114/43 mmHg 36.8 ??C (98.2 ??F) [...] to air or lightly covered. Callorthopaedic surgeon (#[phone]) with any fevers, chills, sweats, redness or [...] a copy of the coumadin/INR record to [facility] - [phone]. Instructions Given to Patient at Discharge: Provider [...] ). The INR should be reportedto the [facility] Ortho clinic at [phone], and you will be informed of any [...] bowel movement. You can also take an llis-mch-codfecr medication, miralax to help if needed. 2. [...] lightly covered. 5. Call your orthopaedic surgeon (#[phone]) with any fevers, chills, sweats, redness or [...] 2:10 PM Alessio Quezada MD [facility] [phone] None Joint Appt Health Question Three C Ortho [facility] [phone] None 09/18/2012 1:10 PM Arabella Rob MD [facility] [phone] [facility] Joint Appt Health Questionnaire [address] [phone] [facility] Future Orders Please Complete By Expires REFERRAL TO ANTICOAGULATION MONITORING [[id number] Custom] Process Instructions: If no progress note charted, please enter Clinical details in comments. Scheduling Instructions: Comments: To rehab Sat 06/22 Questions: Responses: Responsible Group [facility] ANTICOAG Reason for referral coumadin dose Risk Factors: Next due INR 06/23/2012 INR Goal 2.0-3.0 Target End Date 07/18/2012 Provider Contact Information: Primary Care Provider: ARABELLA ROB MD, MD [phone] Hospital Attending: Alessio Quezada MD Department of Orthopaedic Surgery For questions regarding this document or issues relating to this hospitalization on the Medical Service, please contact your inpatient physician through the [facility] Fuel Dock Attendant . Issues after hours and on weekends [...] Operative Note Patient Name: Katlin Mina : [id number] MR#: [id number] Case Date: 06/19/2012 Surgeon: Surgeon(s) and Role: [...] Implant Name Type Inv. Item Serial No. Main Galley Scullion Lot No. LRB No. Used Action CEMENT,BNE,SMARTSET MV,EO,40GM ([id number]) - [id number] IMPLANTS CEMENT,BNE,SMARTSET MV,EO,40GM ([id number]) Depuy Director Transition - 3527 [id number] Right 1 Implanted INSERT,TIBL,STBLZD,4,10MM ([id number]) (AUTOREQ) - [id number] IMPLANTS INSERT,TIBL,STBLZD,4,10MM ([id number]) (AUTOREQ) Depuy Director Transition - 3527 [id number] Right 1 Implanted COMPONENT,TIBL,CO CR,CMNTD,4 ([id number]) (AUTOREQ) - [id number] IMPLANTS COMPONENT,TIBL,CO CR,CMNTD,4 ([id number]) (AUTOREQ) Depuy Director Transition - 3527 [id number] Right 1 Implanted COMPO,FEM,POS STB,RT,4 ([id number]) (AUTOREQ) - [id number] IMPLANTS COMPO,FEM,POS STB,RT,4 ([id number]) (AUTOREQ) Depuy Director Transition - 3527 [id number] Right 1 Implanted PATELLA,RND XSML,32MM ([id number]) (AUTOREQ) - [id number] IMPLANTS PATELLA,RND XSML,32MM ([id number]) (AUTOREQ) Depuy Director Transition - 3527 [id number] Right 1 Implanted Specimen knee parts Disposition: [...] MD [facility] [address]-DERMAT OLOGY [place], [place] [address] (Wo rk) 10/16/2022 Office Visit Otolaryngology Frank Buchanan MD [facility] OTOLARYNGOLOGY Sarah EPT. [place], [place] [address] (Wo rk) 11/29/2022 Appointment Hematology and Oncology 11/29/2022 Office Visit Radiation Oncology Emerald Leyva APRN [facility] RADIATION ONCOLO GY [place], [place] [address] (Wo rk) Scheduled Referrals Name [...] Organization Address City/State/ZIP Code Phon e Number [place] [id number] CERNER MILLENNIUM (ABNORMAL) DIFFERENTIAL, AUTOMATED (06/22/2012 4:54 AM EDT) [facility] gist Method Time Signature Neutrophils % 69.6 [...] 0.01 0.00 - 0.05 x10(3)/mcL CER NER [facility] Specimen Anatomical Collection Method Collection Time Receive d Time (Source) Location / / Volume Laterality Blood specimen 06/22/2012 4:54 AM 012 5:10 (specimen) EDT AM EDT Alessio Quezada MD HEMATOLOGY ORDERABLES Performing Organization Address City/[facility]/ZIP Code Phon e Number [address] [facility] (ABNORMAL) Prothrombin Time (06/22/2012 4:54 AM EDT) P athologist Signature PT 23.0 (H) 11.9 - 14.7 [facility]ERNER sec [facility] Comment: [facility] Transfusion Committee Guidelines: I NR less than 2.0, PTT less than OR equal to 43.5 seconds, or Fibrinogen gre ater than or equal to 100 mg/dl indicate adequate procoagulant activity for hemostasis in patients without underlying bleeding disorders. INR 2.0 (H) 0.9 - 1.1 [facility] Specimen Anatomical Collection Method Collection Time Receive d Time (Source) Location / / Volume Laterality Blood specimen 06/22/2012 4:54 AM 012 5:10 (specimen) EDT AM EDT Resulting Agency Comment Spec In Lab Alessio Quezada MD HEMATOLOGY ORDERABLES Performing Organization Address City/[facility]/ZIP Code Phon e Number [address] [facility] (ABNORMAL) Basic Metabolic Panel (non-fasting) (06/22/2012 4:54 AM EDT) P athologist Signature Glucose Lvl 126 60 - 199 [facility] mg/dL [facility] Comment: Diabetes: >=200 mg/dL plus symp toms [...] Organization Address City/State/ZIP [place] [address] CERNER MILLENNIUM (ABNORMAL) CBC (with Diff) (06/22/2012 4:54 AM EDT) P athologist Signature WBC 9.0 4.0 - 10.0 CERNER x10(3)/mcL MILLENNIUM RBC 2.70 (L) 4.63 - CERNER 6.08 MILLENNIUM x10(6)/mcL Hemoglobin 8.9 (L) 13.7 - CERNER 17.5 gm/dL MILLENNIUM Comment: Called by: [facility], Read back by: JUNITO NINO, Date-Time: 06-22-12 05:33. Nurse said ok to enter Hematocrit 26.5 (L) 40.0 - 51.0 % CERNER MILLENNI UM MCV 98.1 (H) 79.0 - 92.0 fL CERNER MILLENNI UM MCH 33.0 (H) 25.6 - 32.2 pg CERNER MILLENNI UM MCHC 33.6 32.0 - 36.5 gm/dL CERNER MILLE NNIUM Platelets 156 145 - 370 x10(3)/mcL CERNER [place] LLENNIUM RDWSD 49.7 (H) 35.0 - 46.0 [...] Organization Address City/State/ZIP Code Phon e Number [place] [phone] CERNER MILLENNIUM (ABNORMAL) DIFFERENTIAL, AUTOMATED (06/21/2012 4:19 AM EDT) [facility] Method Time Signature Neutrophils % 71.5 [...] Quezada MD HEMATOLOGY ORDERABLES Performing Organization Address City/[facility]/ZIP Code Phon e Number [address] CERNER MILLENNIUM NUCLEATED RED [...] Quezada MD HEMATOLOGY ORDERABLES Performing Organization Address City/[facility]/ZIP [facility] Phon e Number [address] CERNER MILLENNIUM (ABNORMAL) Prothrombin Time (06/21/2012 4:19 AM EDT) P athologist Signature PT 19.1 (H) 11.9 - 14.7 CERNER sec MILLENNIUM Comment: [facility] Transfusion Committee Guidelines: I NR less than [...] HEMATOLOGY ORDERABLES Performing Organization Address City/State/ZIP Code Trupti PANIAGUA [place] [id number]OS[address] CERNER MILLENNIUM Basic Metabolic Panel (non-fasting) (06/21/2012 4:19 AM EDT) athologist Signature Glucose Lvl 131 60 - [...] 8.5 - 10.5 mg/dL CERNER PATRICK NIUM Comment: result rechecked-lr Estimated GFR >60 >=60 CERNER MILLENNIU M [...] Organization Address City/State/ZIP [place] [address] [facility] MILLENNIUM (ABNORMAL) CBC (with Diff) (06/21/2012 4:19 [...] Organization Address City/State/ZIP [place] [address] CERNER MILLENNIUM (ABNORMAL) DIFFERENTIAL, AUTOMATED (06/20/2012 3:58 AM EDT) [facility] Method Time Signature Neutrophils % 74.3 (H) [...] Organization Address City/State/ZIP Code Phon e Number [address] CERNER MILLENNIUM (ABNORMAL) Prothrombin Time (06/20/2012 3:58 AM EDT) P athologist Signature PT 16.6 (H) 11.9 - 14.7 CERNER sec MILLENNIUM Comment: [facility] Transfusion Committee Guidelines: I NR less than [...] Quezada MD HEMATOLOGY ORDERABLES Performing Organization Address City/[facility]/ZIP Code Phon e Number [address] CERNER MILLENNIUM (ABNORMAL) Basic Metabolic [...] age. At present, NKDEP does NOT recommend i ng the MDRD equation for drug dosing [...] Organization Address City/State/ZIP [place] [address] CERNER MILLENNIUM (ABNORMAL) CBC (with Diff) (06/20/2012 3:58 AM EDT) P athologist Signature WBC 8.2 4.0 - 10.0 CERNER x10(3)/mcL MILLENNIUM RBC 3.17 (L) 4.63 - CERNER 6.08 MILLENNIUM x10(6)/mcL Hemoglobin 10.6 (L) 13.7 - CERNER 17.5 gm/dL MILLENNIUM Hematocrit 31.3 (L) 40.0 - CERNER 51.0 % MILLENNIUM MCV 98.7 (H) 79.0 - CERNER 92.0 fL MILLENNIUM MCH 33.4 (H) 25.6 - CERNER 32.2 pg [facility]IUM MCHC 33.9 32.0 - CERNER 36.5 gm/dL [facility]IUM Platelets 147 145 - 370 CERNER x10(3)/mcL MILLENNIUM RDWSD 48.7 (H) 35.0 - CERNER 46.0 fL [facility] RDWCV 13.6 10.9 - CERNER 14.4 % [facility]IUM MPV 10.7 9.0 - 12.0 CERNER fL [facility] Specimen Anatomical Collection Method Collection Time Receive d Time (Source) Location / / Volume Laterality Blood specimen 06/20/2012 3:58 AM 012 4:10 (specimen) EDT AM EDT Resulting Agency Comment Spec In Lab Aelssio Quezada MD HEMATOLOGY ORDERABLES Performing Organization Address City/[facility]/ZIP Code Phon e Number [address] [facility] (ABNORMAL) Prothrombin Time (06/19/2012 8:14 PM EDT) P athologist Signature PT 15.7 (H) 11.9 - 14.7 [facility]: [facility] Transfusion Committee Guidelines: I NR less than 2.0, PTT less than OR equal to 43.5 seconds, or Fibrinogen gre ater than or equal to 100 mg/dl indicate adequate procoagulant activity for hemostasis in patients without underlying bleeding disorders. INR 1.2 (H) 0.9 - 1.1 [facility] Specimen Anatomical Collection Method Collection Time Receive d Time (Source) Location / / Volume Laterality Blood specimen 06/19/2012 8:14 PM 012 8:19 (specimen) EDT PM EDT Resulting Agency Comment Spec In Lab Alessio Quezada MD HEMATOLOGY ORDERABLES Performing Organization Address City/[facility]/ZIP [place] [address] [facility] SURGICAL PATHOLOGY REPORT (06/19/2012 3:12 PM EDT) Patholo gist Method Time Signature Surgical [facility] Pathology ? [facility] Report ? Provider: ?? ALESSIO QUEZADA ?? Pt. Name: ?? KATLIN SANZ ? Acc #: ?[id number] ?Pt. MRN: ?[id number] ? Col Date: ?? 06/19/2012 ?/Sex: ?1940,(72 [...] MD PATHOLOGY/CYTOLOGY ORDERABLE S Performing Organization Address City/[facility]/ZIP [place] [address] CERNER MILLENNIUM Specimen to Pathology (surgical or derm) (06/19/2012 2:34 PM EDT) Specimen Anatomical Collection Method Collection Time Receive d Time (Source) Location / / Volume Laterality AP Specimen 06/19/2012 2:34 PM 2 2:34 EDT PM EDT Narrative CERNER MILLENNIUM - 06/19/2012 2:34 PM E DT Specimen requisition ordered. ??Separate Pathology report to follow Alessio Quezada MD PATHOLOGY/CYTOLOGY ORDERABLE S Performing Organization Address City/[facility]/ZIP [place] [address] CERNER MILLENNIUM documented in this encounter Visit Diagnoses Diagnosis DJD (degenerative joint disease) of knee - Primary Osteoarthrosis, unspecified whether gene ralized or localized, lower leg DJD (degenerative joint disease) of knee Osteoarthrosis, unspecified whether gene ralized or localized, lower leg documented in this encounter Active and Recently Administered Medications Times are shown in EDT. Scheduled Medication Order 06/20/2012 06/21/2012 06/22/2012 acetaminophen (TYLENOL) tablet 1,000 mg 0508 (Given - Provider: Deya Zhao RN)1400 (Given - Provider: Mane [place], RN)2105 (Not Given - Provider: Tin Duenas [...] Routine atenolol (TENORMIN) tablet 25 mg (CANCELED) 1657 (Given - Provider: Gisell Feliz RN) 0900 [...] Gisell Feliz RN)1700 (Given - Provider: Gisell Feliz RN) 0800 (Given - Provider: Jeffery Haines RN) 2 tablet = 1,000 mg, Oral, 2 TIMES DAILY WITH MEALS, First dose on Sun06/20/12 at 0845, Until Discontinued, Routine ceFAZolin (ANCEF) 1g in dextrose 5% 50mL (COMPLETED) 0 500 (New Bag - Provider: Deya Zhao RN)0800 (New Bag - Provider: Mane Thompson RN) 1 g = 1,000 mg, Intravenous, EVERY 8 BRITTANY RS, 3 doses, First dose on Sun06/19/12 at 1600, Last dose on Sun06/20/12 at 0800, for 30 Minutes, For 3 doses postoperatively. Adjust to 8 hours from intraoperative dose. esomeprazole (NEXIUM) capsule 40 mg (CANCELED) 09 (Marie hannaen - Provider: Mane Thompson RN) 09 (Given - Provider: Gisell Feliz RN) 09 (Give n - Provider: Jeffery Haines, SHAWNA) 40 mg, Oral, DAILY, First dose on 06/23 at 1830, Until Discontinued, Routine levothyroxine (SYNTHROID) tablet 125 mcg (CANCELED) 517 (Given - Provider: Tin Duenas RN) 125 mcg, Oral, EVERY MORNING, First dose on Sun06/22/12 at 0600, Until Discontinued, Routine senna-docusate (PERICOLACE) 8.6-50 mg per tablet 1-4 t ablet 899 (Given - Provider: Mane Thompson RN)2111 (Given - Provider: Tin Duenas RN) 09 (Given - Provider: Gisell Feliz RN)2042 (Given - Provider: Tin Duenas RN) 09 (Given - Provider: Jeffery Haines, SHAWNA) 1-4 [...] 0630 (Give n - Provider: Deya Zhao RN)0 (Given - Provider: Mane Thompson RN) 0630 (Given - Provider: Tin Duenas RN)1829 (Given - Provider: Gisell Feliz RN) 0630 (Given - Provider: Tin Duenas RN) 5 mL, Intravenous, EVERY 12 HOURS, First dose on Sun06/19/12 at 1830, Until Discontinued, Routine terazosin (HYTRIN) capsule 4 mg (CANCELED) 2042 (Given - Provider: Tin Duenas RN) 4 mg, Oral, NIGHTLY, First dose on Sun at 2100, Until Discontinued, Routine warfarin (COUMADIN) tablet 5 mg (COMPLETED) 1699 (Give n - Provider: Mane Thompson RN) 5 mg, Oral, ONCE, 1 dose, Alisha 06/20/12 at 1700, Routine warfarin (COUMADIN) tablet 5 mg (COMPLETED) 1700 (Given - Provider: Gisell Feliz RN) 5 mg, Oral, ONCE, 1 dose, 06/21/12 at 1700, Routine warfarin (COUMADIN) tablet 5 mg 5 mg, Oral, ONCE, 1 dose, 06/22/12 at 1700, Routine Continuous Medication Order 06/20/2012 06/21/2012 06/22/2012 lactated ringers infusion 1,000 mL (CANCELED) 0106 (Ne w Bag - Provider: Deya Zhao, RN)0600 (Rate/Dose Verify - Provider: Deya Zhao RN) 1,000 mL, at 100 mL/hr, Intravenous, CON TINUOUS, Starting Sun06/19/12 at 1600, Until Alisha 06/20/12 at 0822 PRN Medication Order 06/20/2012 06/21/2012 [...] 30 MIN PRN, 2 d oses, Starting Sun06/19/12 at 1810, Until Sun06/21/12 at 1525, Nausea, May repeat dose once in 30 minutes if no relief from previous dose., Routine OXYcodone (ROXICODONE) immediate release tablet 10 mg (CANCELED) 0605 (Given - Provider: eDya Zhao, RN) 10 mg, Oral, EVERY 4 HOURS PRN, Starting 06/19/12 at 1810, Until Alisha 06/20/12 at 0951, Pain, moderate pain, For Moderate pain. Do not exceed 15 mg in 4 hours. If pain not relieved, call provider., Routine polyethylene glycol (MIRALAX) packet 17 g (CANCELED) 1 958 (Given - Provider: Tin Duenas, RN) 0818 (Given - Provider: Gisell Feliz RN) 17 g, Oral, DAILY PRN, Starting Wed at 1810, Until 06/22/12 at 1508, Constipation, Administer if needed per patient's routine or if no bowel movement within 48 hours, Routine documented in this encounter Care Teams Supervisor Belt And Link Assembly Relationship Specialty Start Date End Date Arabella Rob MD PCP - General 10/04/10 04/10/17 [facility] GENER[place] [address] documented as of this encounter
--- OUTSIDE RECORDS SUMMARY | 2022-10-09 16:18 | XMS_ITS | Encounter Summary ---
:1940 Author Organization [facility] [place] [address] Care Team Providers Name Role Phone Giorgio Cardona MD Primary Care Provider Encounter Details Date Type Department Care Team Description 10/01/2012 Orders Only Radiation Oncology at [place], Roberta Joseph cancer Sharita Espinoza MD (Primary Dx) [facility] DR Pereira [place] [address] [place] [address] [phone] Social History Tobacco Use Types Packs/Day Years [...] Dermatology Virgilio Mckeon MD [facility] ER DR CHRISTIANO HENSON-DERMAT OLOGY [place], [place] [address] (Wo rk) 10/16/2022 Office Visit Otolaryngology Frank Buchanan MD [facility] ER OTOLARYNGOLOGY Sarah EPT. [place], [place] [address] (Wo rk) 11/29/2022 Appointment Hematology and Oncology 11/29/2022 Office Visit Radiation Oncology Emerald Leyva, SUPER[facility]OR [facility] [place] [address] (Wo rk) documented as of this encounter Results Testosterone, total (09/29/2013 9:35 AM EST) athologist Signature Testo Total 6.98 2.80 - [...] Organization Address City/State/ZIP [place] [address] CERNER MILLENNIUM PSA (09/29/2013 9:35 AM EST) P athologist [...] Organization Address City/State/ZIP [place] [address] CERNER MILLENNIUM documented in this encounter Visit Diagnoses Diagnosis Prostate cancer - Primary Malignant neoplasm of prostate documented in this encounter Care Teams Entry Level Drafter Relationship Specialty Start Date End Date Giorgio Cardona MD PCP - General 10/04/10 04/10/17 [facility] GENER[place] [address] documented as of this encounter
--- OUTSIDE RECORDS SUMMARY | 2022-10-09 16:18 | XMS_ITS | Encounter Summary ---
:1940 Author Organization [facility] [place] [address] Care Team Providers Name Role Phone Giorgio Cardona MD Primary Care Provider Encounter Details Date Type Department Care Team Description 07/26/2012 Anti-Coag Telephone Orthopaedics at [facility] [place] Shilpa Myers DJD right knee s/p R Visit [facility] RN TKA Dr. Kayla bucio 06/19 [place] [id number] Social History Tobacco Use Types Packs/Day Years [...] Virgilio Mckeon MD [facility] ER DR CHRISTIANO HENSON-DERMAT OLOGY [place], [place] [address] (Wo rk) 10/16/2022 Office Visit Otolaryngology Frank Buchanan MD [facility] OTOLARYNGOLOGY Sarah EPT. [place], [place] [address] (Wo rk) 11/29/2022 Appointment Hematology and Oncology 11/29/2022 Office Visit Radiation Oncology Emerald Leyva APRN [facility] RADIATION ONCOLO [place], [place] [address] (Wo rk) documented as of this encounter Visit Diagnoses Diagnosis DJD right knee s/p R TKA Dr. Quezada 06/19 Osteoarthrosis, unspecified whether gene ralized or localized, lower leg documented in this encounter Care Teams Dishwashing Machine Repairer Relationship Specialty Start Date End Date Giorgio Cardona MD PCP - General 10/04/10 04/10/17 [facility] GENER[place] [address] documented as of this encounter
--- OUTSIDE RECORDS SUMMARY | 2022-10-09 16:18 | XMS_ITS | Encounter Summary ---
:1940 Author Organization [facility] [place] [address] Care Team Providers Name Role Phone Giorgio Cardona MD Primary Care Provider Reason for Visit Reason Comments Post Hospital Discharge right knee replacement Encounter Details Date Type Department Care Team Description 07/09/2012 Office Visit Internal Medicine at Judy Melendrez APRN HTN (hypertension); [facility] [place] [address] Knee pain; [place], [place] [address] [address]arseness; [place] [address] Social History Tobacco Use Types Packs/Day Years Used Date Smoking Tobacco: Never Smokeless Tobacco: Never Alcohol Use Standard Drinks/Week Comments No 0 (1 standard drink = 0.6 oz pure alcoho l) Sex Assigned at Date Recorded Not on file documented as of this encounter Last Filed Vital Signs Vital Sign Reading Time Taken Comments Blood Pressure 107/62 07/09/2012 2:50 PM EDT Pulse 71 07/09/2012 2:50 PM EDT Temperature - - Respiratory Rate - - Oxygen Saturation - - Inhaled Oxygen Concentration - - Weight 64.4 kg (142 lb) 07/09/2012 2:50 PM EDT Height - - Body Mass Index 22.58 06/19/2012 6:05 PM EDT documented in this encounter Patient Instructions Patient InstructionsJudy Melendrez APRN - 07/09/2012 3:01 PM EDT On July 18, STOP the Coumadin and begin Aspirin 325mg twice a day until you are seen in followup with Alsesio Pelletier MD. Decrease the terazosin to one 2mg capsule at bedtime. documented in this encounter Progress Notes Judy Melendrez APRN - 07/09/2012 3:01 PM EDT ESTABLISHED PATIENT VISIT I. HISTORY a. Reason(s) for Visit: Alfredito Mina 72 y.o. male presents today due to complaint(s) of: Chief Complaint Patient presents with ??? Post Hospital Discharge right knee replacement 06/19-06/22 for right TKR w/ Damien doran. History of Present Illness: Here for hosp check after right TKR w/ Damien. Is doing well. Knee feeling achy. Trying to push himself w/ PT. Told he is 4 wks ahead of schedule. PT at [facility]. Very good. 3x/wk. Coumadin currently. Will take until Jul 18 then will be on ASA 325mg BID. Pain under pretty good control. Not taken dilaudid in about 3 days. Does not take tylenol, makes stomach sick. Moving bowels ok, 4 tabs senna. Coffee maybe irrigating him. Coughing episode. Small amount of blood w/ the cough. Feels like something in throat. If eating donut scratches / irritated. May be irritated after the surgery. Is a little dizzy after standing. On atenolol 25mg daily, lasix 20mg daily (off the potassium per DCsummary but pt takes on occasion) and hytrin 4mg at bedtime. Patient Active Problem List Diagnoses Code ??? [...] s/p R TKA Dr. Quezada 06/19 715.96J Allergies Allergen Reactions ??? Lactose Other (See Comments) Sneezing Current outpatient prescriptions ordered prior to encounter Medication Sig Dispense Refill ??? levothyroxine (SYNTHROID) 125 mcg tablet Take 1 tablet by mouth every morning. 30 tablet 12 ??? atenolol (TENORMIN) 50 mg tablet Take 0.5 tablets by mouth daily. 30 tablet 3 ??? furosemide (LASIX) 20 mg tablet 40 MG = 2 Tablet(s) PO Once daily and PRN swelling ??? terazosin (HYTRIN) 2 mg capsule 4 MG = 2 Capsule(s) PO QHS ??? acetaminophen (TYLENOL) 500 mg tablet Take 2 tablets by mouth every 8 hours. ??? senna-docusate (PERICOLACE) 8.6-50 mg per tablet Take 1-4 tablets by mouth 2 times daily. ??? HYDROmorphone (DILAUDID) 2 mg tablet Take 1-3 tablets by mouth every 4 hours as needed for Pain.30 tablet 0 ??? omeprazole (PRILOSEC) 10 mg capsule Take 10 mg by mouth 2 times daily. c. Review of Systems: Constitutional - no fevers, chills, weight loss or gain, fatigue Cardiovascular - No CP, palpitations Respiratory - No SOB, NIEVES, wheeze, + coughing this AM w/ slight blood tinged sputum production but was aggressive cough HEENT - intermittent difficulty swallowing, + hoarseness Gastrointestinal - No abdominal pain, nausea, GERD, constipation,diarrhea Musculoskeletal - right knee pain but doing better, rates 3/10 - urinating w/o difficulty Neuro - slight dizziness w/ standing II. PHYSICAL EXAM: Filed Vitals: 07/09/12 1450 BP: 107/62 Pulse: 71 General - No acute distress, conversing without difficulty. ENT - TM clear with normal light reflex, oropharynx clear. Eyes - PERRL. Neck - No lymphadenopathy, supple, no masses Lungs - Clear to auscultation bilaterally without wheeze or crackles. Heart - RRR, S1,S2, no murmur, gallop or rub. Abdomen/GI - Soft, nontender, normal active bowel sounds, neg hsm or masses. M/S - right knee w/ steri strips over incision, mild erythema and swelling but does not appear w/ infection Extremities - No edema. III. ASSESSMENT/PLAN: 1. Right TKR, doing well post-op. Pain under ok control. -Cont PT -Seeing Damien in 2 wks -Can stop the coumadin jul 18 per DC summary and start ASA 325mg BID, pt instructed to do this. 2. HTN: Actually w/ slight hypotension today, some dizziness w/ standing, not orthostatic on exam today. Discussed cutting back on the lasix, pt uncomfortable w/ this as when done this in past much increased edema. Will keep on the atenolol 25mg daily. -Decrease terazosin to 2mg at bedtime -Pt w/ ? Of when to check the PSA, order in [facility] to have had done this summer, he will get today 3. Potassium: Stopped in hospital. On lasix 20mg daily. Pt taking intermittently. -Check BMP today. 4. Hoarseness / dysphagia / GERD: Ongoing. Seeing ENT next month. May be a little irritated from intubation from surgery AND pt has been drinking 4-5 cups coffee daily. He is cutting this out which is advised. -Cont prilosec 10mg BID. RTC w/ Batsis in place for 3mo documented in this encounter Plan of Treatment Upcoming Encounters Date Type Specialty Care Team Description 10/11/2022 Office Visit Dermatology Virgilio Mckeon MD [facility] DR CHRISTIANO HENSON-DERMAT OLOGY [place], [place] [address] (Wo rk) 10/16/2022 Office Visit Otolaryngology Frank Buchanan MD [facility] ER OTOLARYNGOLOGY Sarah EPT. [place], [place] [address] (Wo rk) 11/29/2022 Appointment Hematology and Oncology 11/29/2022 Office Visit Radiation Oncology Autumn Emerald ROSITA Pugh [facility] ER RADIATION ONCCESAR GY [place], [place] [address] (Leroy bhatia) documented as of this encounter Results (ABNORMAL) Basic Metabolic Panel (non-fasting) (07/09/2012 3:55 PM EDT) athologist Signature Glucose Lvl 116 60 - 199 CERNER mg/dL MILLENNIUM Comment: Diabetes: >=200 mg/dL plus symp toms BUN 23 (H) 10 - 20 mg/dL CERNER MILLENNIU M Creatinine 1.03 0.80 - 1.50 mg/dL CERNER MILL ENNIUM Comment: Please note that the pediatric reference intervals supplied above were not validated at [facility] [place] [facility]. Results from pediatri c [...] Organization Address City/State/ZIP Code Phon e Number [place] [id number] [facility] documented in this encounter Visit Diagnoses Diagnosis HTN (hypertension) Unspecified essential hypertension Knee pain Pain in joint, lower leg Hoarseness Dysphonia Dysphagia Dysphagia, unspecified documented in this encounter Care Teams Product Specialist Relationship Specialty Start Date End Date Giorgio Cardona MD PCP - General 10/04/10 04/10/17 [facility] GENERAL [place] [address] documented as of this encounter
--- OUTSIDE RECORDS SUMMARY | 2022-10-09 16:18 | XMS_ITS | Encounter Summary ---
:1940 Author Organization [facility] [place] [address] Care Team Providers Name Role Phone Giorgio Cardona MD Primary Care Provider Encounter Details Date Type Department Care Team Description 09/06/2012 Orders Only Hematology and Oncology at Teofilo Oh MD [facility] Sarah garcia HEMATOLOGY/[place] [address] DEPT. [phone] [place], [place] [address] (Wo rk) Social History Tobacco [...] [facility] DR CHRISTIANO HENSON-DERMAT OLOGY [place], [place] [address] (Wo rk) 10/16/2022 Office Visit Otolaryngology Frank Buchanan MD [facility] OTOLARYNGOLOGY Sarah EPT. [place], [place] [address] (Wo rk) 11/29/2022 Appointment Hematology and Oncology 11/29/2022 Office Visit Radiation Oncology Emerald Leyva APRN [facility] RADIATION ONCOLO [place], [place] [address] (Wo rk) documented as of this encounter Visit Diagnoses Not on filedocumented in this encounter Care Teams Circus Rider Relationship Specialty Start Date End Date Giorgio Cardona MD PCP - General 10/04/10 04/10/17 [facility] [place] [address] documented as of this encounter
--- OUTSIDE RECORDS SUMMARY | 2022-10-09 16:19 | XMS_ITS | Encounter Summary ---
:1940 Author Organization [facility] [place] [address] Care Team Providers Name Role Phone Giorgio Cardona MD Primary Care Provider Reason for Visit Reason Comments Paralysis Vocal cords Encounter Details Date Type Department Care Team Description 05/02/2012 Office Visit Otolaryngology at [facility] Ramin Vigil Vocal cord paralysis [facility] Sarah Beaulieu MD (Primary Dx) [place] [address] [facility] [phone] CENTER OTOLARYNGOLOGY DEPT. [place], [place] [address] Social History Tobacco Use Types Packs/Day Years Used Date Smoking Tobacco: Never Smokeless Tobacco: Never Alcohol Use Standard Drinks/Week Comments No 0 (1 standard drink = 0.6 oz pure alcoho l) Sex Assigned at Date Recorded Not on file documented as of this encounter Last Filed Vital Signs Vital Sign Reading Time Taken Comments Blood Pressure 126/67 05/02/2012 9:20 AM EDT Pulse 67 05/02/2012 9:20 AM EDT Temperature - - Respiratory Rate - - Oxygen Saturation - - Inhaled Oxygen Concentration - - Weight 69 kg (152 lb 3.2 oz) 05/02/2012 9:20 AM EDT Height 171.5 cm (5' 7.5) 05/02/2012 9:20 AM EDT Body Mass Index 23.49 05/02/2012 9:20 AM EDT documented in this encounter Progress Notes Ramin Vigil MD - 05/02/2012 10:57 AM EDT [facility] Follow up note Alfredito Mina is a 71 y.o. male seen in follow-up for vocal cord paralysis. See note by Nicolette Coon for full history. Had thyroidectomy in November 2010 with noted injury to the left TVC. Noted to have a left TVC paralysis. He continues to have breathy voice but otherwise swallowing is stable. He does report some difficulty swallowing one of his pills but this was present priorto his thyroid surgery. PROBLEM LIST: Patient Active Problem List Diagnoses [...] to encounter Medication Sig Dispense Refill ??? esomeprazole (NEXIUM) 40 mg capsule Take 1 capsule by mouth daily. 30 capsule 12 ??? levothyroxine (SYNTHROID) 125 mcg tablet Take [...] MG = 2 Capsule(s) PO QHS ??? DISCONTD: traZODone (DESYREL) 50 mg tablet Take 0.5-1 tablets by mouth nightly as needed for Sleep. 30 tablet 5 ??? DISCONTD: polyethylene glycol (MIRALAX) 17 gram packet Take 17 g by mouth daily. ALLERGIES: Allergies Allergen Reactions ??? Lactose Other (See Comments) Sneezing ROS: Pertinent positive findings discussed above. No other findings on review of constitutional visual, cardiovascular, respiratory, gastrointestinal, genitourinary, musculoskeletal, dermatologic, neurological, psychiatric, endocrine, hematologic or immunologic systems. PHYSICAL EXAMINATION: General: Well developed, no distress Head/face: Normocephalic, atraumatic Oral cavity: Normal exam of the lips, teeth/gums, floor of mouth, tongue. Normal oral mucosa. Normalpalate. Oropharynx: Normal soft palate, tonsils, lateral pharyngeal wall, posterior pharynx. Mallampati 3. Neck: No adenopathy, no masses, normal thyroid, normal salivary gland exam. Trachea midline. Resp: Normal speech, no stridor, normal respirations. Skin: Normal skin survey of the head and neck. MSK: No trismus, normal neck range of motion Neuro: AxOx3; CN II-XII is grossly intact Psych: Normal mood and affect. Responds appropriately to questions. PROCEDURES: Flexible Fiberoptic Laryngoscopy: Topical anesthetic and decongestant applied to the nasal cavity. Patient tolerated the procedure well without any complications. Nasal Cavity: Normal Nasopharynx: Normal Oropharynx: Normal Larynx: LEFT TVC paralysis with mid and posterior gap. No other pathology seen. Hypopharynx: Normal without pooling. ASSESSMENT/RECOMMENDATIONS: LEFT vocal cord paralysis. I discussed microlaryngoscopy with Radiesse injection. This would be done as an outpatient. We also discussed Ishiki thryoplasty (open procedure through and incision in the neck), however, we have had good results with the Radiesse. We discussed risks benefits and expectations (ie improved voice but may not be back to normal). The patient would like to also get his knee repair and I recommended that he have that done first. He will call the office to schedule surgery once he has had his knee replacement. Also the risk of infection is low with the laryngoscopy and injection we will administer prophylactic antibiotics. I appreciate the opportunity to be involved in Mr. Mina's care. Please do not hesitate to contact me at [email or web address], (office), (page reduction furnace operator helper) or [phone] (mobile) if you have any questions. RAMIN VIGIL MD 05/02/2012 documented in this encounter Plan of Treatment Upcoming Encounters Date Type Specialty Care Team Description 10/11/2022 Office Visit Dermatology Virgilio Mckeon MD [facility] DR CHRISTIANO HENSON-DERMAT OLOGY [place], [place] [address] (Wo rk) 10/16/2022 Office Visit Otolaryngology Frank Vigil MD [facility] OTOLARYNGOLOGY Sarah EPT. [place], [place] [address] (Wo rk) 11/29/2022 Appointment Hematology and Oncology 11/29/2022 Office Visit Radiation Oncology Emerald Leyva APRN [facility] RADIATION ONCCESAR GY [place], [place] [address] (Wo rk) documented as of this encounter Visit Diagnoses Diagnosis Vocal cord paralysis - Primary Paralysis of vocal cords or larynx, unsp ecified documented in this encounter Care Teams Edger Runner Relationship Specialty Start Date End Date Giorgio Cardona MD PCP - General 10/04/10 04/10/17 [facility] GENERAL [place] [address] documented as of this encounter
--- OUTSIDE RECORDS SUMMARY | 2022-10-09 16:19 | XMS_ITS | Encounter Summary ---
:1940 Author Organization [place] [address] Care Team Providers Name Role Phone Giorgio Cardona MD Primary Care Provider Reason for Visit Reason Comments Dysphagia Encounter Details Date Type Department Care Team Description 01/22/2012 Office Visit Speech Therapy at Ramin Tafoya, RETAIL MERCHANDISING SPECIALIST [facility] PHYSICAL MEDICINE & [place] [address] Dysphagia, [facility] [place] Giorgio Cardona MD [facility] GENERAL [place] [address] [place] [address] Social History Tobacco Use Types Packs/Day Years Used Date Smoking Tobacco: Never Smokeless Tobacco: Never Alcohol Use Standard Drinks/Week Comments No 0 (1 standard drink = 0.6 oz pure alcoho l) Sex Assigned at Date Recorded Not on file documented as of this encounter Progress Notes Ramin Tafoya SLP - 01/22/2012 9:44 AM EDT Speech-Language Pathology Modified Barium Swallow Evaluation Patient Name: Alfredito Mina Date of : 1940 Referring MD: Giorgio Cardona Date Seen by MD: 12/15/11 Diagnosis: Dysphagia Date of Onset: 12/15/11 Date of Evaluation: 01/22/2012 Total Treatment Time: 76 minutes Certification Period: 01/22/12 to 04/23/12 Total Timed Code Treatment: 0 minutes Presenting Problem: Patient is a 71 y.o. male referred for a MBS due to c/o pills getting stuck midline at the level of the larynx. Of note pt is s/p total thyroidectomy on 11/30/11 for what turned out to be a markedly enlarged and fibrotic substernal MNG . Pt had a left recurrent nerve avulsion injuryresulting in a hoarse voice without dyspnea or SOB. ENT consult on 01/02/12 documented left vocal cord paralysis. Currently being treated for GERD. For complete history see physician's H&P. Functional Limitations: Difficulty swallowing pills and solids. Prior Medical History: Past Medical History Diagnosis Date ??? Lung cancer ??? Prostate cancer s/p XRT Medications: Current outpatient prescriptions Medication Sig Dispense Refill ??? traZODone (DESYREL) 50 mg tablet Take 0.5-1 tablets by mouth nightly as needed for Sleep. 30 tablet 5 ??? fluticasone (FLONASE) 50 mcg/Actuation nasal spray 1 spray by Each Nare route 2 times daily. 16 g 12 ??? atenolol (TENORMIN) 50 mg tablet Take 0.5 tablets by mouth daily. 30 tablet 3 ??? Omeprazole 20 mg TbEC Take 40 mg by mouth daily. 90 mg 3 ??? citalopram (CELEXA) 10 mg tablet Take 1 tablet by mouth daily. 60 tablet 3 ??? polyethylene glycol (MIRALAX) 17 gram/dose powder ??? polyethylene glycol (MIRALAX) 17 gram packet Take 17 g by mouth daily. ??? acetaminophen (TYLENOL) 325 mg tablet Take 2 tablets by mouth every 4 hours as needed for Pain. 30 tablet ??? levothyroxine (SYNTHROID) 125 mcg tablet Take 1 tablet by mouth every morning. 30 tablet 12 ??? Mometasone (NASONEX) 50 mcg/Actuation [place] by Nasal route 2 times daily. One spray each nostril each nostril. 17 g 12 ??? montelukast (SINGULAIR) 10 mg tablet Take 1 tablet by mouth nightly. 30 tablet 12 ??? DOCUSATE SODIUM (COLACE ORAL) Take by mouth daily. ??? naproxen sodium (ALEVE) 220 mg tablet Take 220 mg by mouth 2 times daily. ??? furosemide (LASIX) 20 mg tablet 40 MG = 2 Tablet(s) PO Once daily and PRN swelling ??? terazosin (HYTRIN) 2 mg capsule 4 MG = 2 Capsule(s) PO QHS Current facility-administered medications Medication Dose Route Frequency Provider Last Rate Last Dose ??? Barium Sulfate 40 % (w/v), 30% (w/w) Pste 15 mL 15 mL Oral Once Maday Sands MD Last Dose: 15 mL at 01/22/12914 ??? Barium Sulfate 40 % (w/v) Powd 33 mL 33 mL Oral Once Maday Sands MD Last Dose: 33 mL at 01/22/12914 S: Pt was alert and cooperative with the study. Pt denied pain at this time. He reports sensation of pills getting stuck midline at the level of the larynx and solids sticking in the same location then slowly moving down. He reports frequent gas. No heartburn is reported on omeprazole. Pt also reports post-nasal drip and frequent coughing. O: Order received and assessment completed. Oral / Laryngeal Mechanism Clinical Assessment: Lingual: Protrudes midline. Normal lingual elevation and lateralization bilaterally. Labial: Equal retraction bilaterally. Velar: Velar elevation is normal. Sensation: Grossly intact. Vocal fold function and airway protection: Vocal quality is hoarse consistent with known left vocal cord paralysis. Presented isometric bearing down exercises and voluntary coughing as exercises to facilitate vocal cord adduction. Pt return demonstrated to indicate understanding. Dentition: Intact. Bolus Presentation(s) ?? Thin liquid barium: 3ml x 1, 5ml x 1, sips x 5 ?? Nada thick barium: None. ?? Honey thick barium: None. ?? Puree: Tsp. X 2 ?? Mechanical Soft: None. ?? Solid: Bites x 1 ?? 13 mm barium pill with water: x 1 Oral Preparatory Phase Normal oral swallow. Negative labial loss. Normal mastication with solids. Normal bolus formulation and oral transit with all consistencies. Negative oral stasis. Pharyngeal Phase Within normal limits. Timely initiation. Slightly reduced hyoid elevation. Normal base of tongue / posterior pharyngeal wall contact. Normal epiglottic inversion. Slight vallecular stasis with pudding in one instance. Stasis clears with a liquid wash. Negative pharyngeal stasis with pill or solids. Ptreported sensation of pill/pudding/solids stuck midline at level of larynx despite objective evidence of this. Negative penetration. Negative aspiration. Esophageal Phase Relaxation of upper esophageal sphincter was normal. During esophageal screen column of barium was noted from the level of the aortic arch through the proximal esophagus. Further work-up is warranted to determine reason for this. Modifications Attempted: Liquid assist. A: Summary: Normal oral manipulation of bolus material. Negative aspiration. Suspect pt's sensation of pills andsolids relates to the column of barium superior to the the aortic arch as this sensation was not related to pharyngeal stasis. Further work-up is warranted to determine reason for this. May consider regular barium swallow vs. GI consult and EGD. Diagnosis: Oral / pharyngeal swallow is within normal limits. ? Esophageal dysphagia. RECOMMENDATIONS: ?? Regular diet with regular liquids. ?? Upright during and 30 minutes following meals. ?? Avoid acidy/spicy foods. ?? Consider regular barium swallow vs. GI consult and EGD for further work-up of esophagus. ?? Pt to conduct isometric vocal cord adduction exercises 10 repetitions, 3 times daily to facilitate improved vocal cord adduction. Short-Term Goals: Pt. will complete vocal cord adduction exercises 10 rrepetitions 3 times daily. Long-Term Goal: ?? Pt will report vocal quality has improved. Education: Spoke with pt. re: above results and below recommendations. Frequency: Speech Pathology to follow up by phone and determine if further voice treatment visits are needed. Pt./ family are in agreement with plan of treatment. Thank you for this consult with this patient. Please feel free to contact me with any questions or concerns. Ramin Tafoya MS, [facility] MERCHANDISING SPECIALIST Speech-Language Pathologist Rehabilitation Medicine Pager # [phone] documented in this encounter Plan of Treatment Upcoming Encounters Date Type Specialty Care Team Description 10/11/2022 Office Visit Dermatology Virgilio Mckeon MD [facility] DR [address] [facility] [place], [place] [address] (Wo rk) 10/16/2022 Office Visit Otolaryngology Frank Buchanan MD [facility] OTOLARYNGOLOGY D EPT. [place], [place] [address] (Wo rk) 11/29/2022 Appointment Hematology and Oncology 11/29/2022 Office Visit Radiation Oncology Emerald Leyva APRN [facility] RADIATION ONCOLO GY [place], [place] [address] (Wo rk) documented as of this encounter Visit Diagnoses Diagnosis Dysphagia, unspecified(787.20) Dysphagia, unspecified documented in this encounter Care Teams Roller Skate Repairer Relationship Specialty Start Date End Date Giorgio Cardona MD PCP - General 10/04/10 04/10/17 [facility] GENERAL [place] [address] documented as of this encounter
--- OUTSIDE RECORDS SUMMARY | 2022-10-09 16:19 | XMS_ITS | Encounter Summary ---
:1940 Author Organization [facility] [place] [address] Care Team Providers Name Role Phone Giorgio Cardona MD Primary Care Provider Reason for Visit Reason Comments Right Knee Pain Encounter Details Date Type Department Care Team Description 02/15/2012 Office Visit Orthopaedics at [facility] Josefina Epps Osteoarthritis of knee (Prim jayden Dx); [facility] [address] [place] [address] CENTER [phone] [place] [address] Social History Tobacco Use Types Packs/Day Years Used Date Smoking Tobacco: Never Smokeless Tobacco: Never Alcohol Use Standard Drinks/Week Comments No 0 (1 standard drink = 0.6 oz pure alcoho l) Sex Assigned at Date Recorded Not on file documented as of this encounter Progress Notes Josefina Epps PA - 02/15/2012 1:54 PM EDT PATIENT NAME: Alfredito Mina AGE: 71 y.o. MR#: [id number] DATE OF VISIT: 02/15/2012 DATE OF INJURY/ONSET: chronic STAFF: Dr. Quezada CHIEF COMPLAINT: Right knee pain HISTORY OF PRESENT ILLNESS Mr. Mina a 71 y.o. year old male comes into clinic today for chronic right knee pain. He has been seen in the office on many occassions for similar symptoms. Symptoms in the right knee has not significantly changed. He continues to have intermittent swelling about the knee and pain located mostly in the medial aspect of the right knee. Patient had a right knee injection in the office in Sep 2011 with fairly good results. He states it relieved most of his pain at night. 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 He would like to move forward with knee replacement,but has plans to head to [place] and has a job that needs completing over the next couple of weeks. Patient Active Problem List Diagnoses Code ??? [...] S/P thyroidectomy V45.89FE ??? Dysphagia, unspecified 787.20 PHYSICAL EXAM: Mr. Mina a 71 y.o. year old is alert and oriented. He appears in no acute discomfort and is resting comfortably in a chair in the exam room. Inspection: mod effusion. no ecchymosis. Palpation: Medial joint line tenderness. I have made the following determinations: Knee Exam: Right Prior surgery on this joint: No Gait Abnormality: Antalgic Knee ROM: Extension:5 Flexion: 120 Alignment: 0-4 degrees Varus Stability: A/P Translation <5mm. Varus (lateral stability) <5mm Valgus (medial stability) <5mm Extension La degrees or less Radiographic evidence of joint damage: [0= normal; 1=minimal ; 2= some osteophytes , some narrowing ; 3= moderate osteophytes, significant narrowing, mild deformity; 4= large osteophytes, marked narrowing, obvious deformity]: 3= moderate osteophytes, significant narrorwing, mild deformity Patella Tracking: Normal Skin Integrity: Normal Pulses Palpable: Right PT: Yes Right DP:Yes Motor/Sensory: Distal Motor: Normal Distal Sensory: Normal Quadriceps Strength: 4 RADIOLOGICAL STUDIES: No new xrays today. Films reviewed from 2010. Significant Medial joint space narrowing. ASSESSMENT: OA PLAN: Mr. Mina and I discussed his radiologic findings and physical exam findings. At this point he is requesting another injection to get him through the next couple of weeks. He would like to move forward with surgery so I have scheduled him to see Dr. Quezada. I have ordered additional xrays to be done in planning for his next visit. The patient understands to contact us if they have any other questions or concerns. PROCEDURE NOTE: Right knee Injeciton A time-out was performed and the right knee was confirmed to be the site of injection. The patient was confirmed to have no allergies to betadine, local anesthetics, or corticosteroids. The patient was reminded that blood glucose can be transiently elevated by the corticosteroid injection. The patient was counseled about the potential risks of the procedure, including infection, bleeding and incomplete relief of symptoms. I also discussed with the patient that cortisone is not healthy for muscle tendons or cartilage and that there is an increased risk with repeated injections. The skin was prepped widely over the right knee with duraprep. Then, using sterile technique, a solution consisting of 5cc 1% lidocaine (50mg), 2cc 0.25% marcaine (5mg), and 4 cc Kenalog (40 mg) was injected into the right knee using a 22 gauge needle. The needle was felt to slide into the joint and mixture flowed freely. The skin was cleaned with alcohol and a Band-Aid was applied. The patient tolerated the procedure well. documented in this encounter Plan of Treatment Upcoming Encounters Date Type Specialty Care Team Description 10/11/2022 Office Visit Dermatology Virgilio Mckeon MD [facility] DR [address] [facility] [place], [place] [address] (Wo rk) 10/16/2022 Office Visit Otolaryngology Frank Buchanan MD [facility] OTOLARYNGOLOGY Sarah [address]PT[address] [place], [place] [address] (Wo rk) 11/29/2022 Appointment Hematology and Oncology 11/29/2022 Office Visit Radiation Oncology Emerald Leyva APRN [facility] RADIATION ONCOLO GY [place], [place] [address] (Wo rk) documented as of this encounter Visit Diagnoses Diagnosis Osteoarthritis of knee - Primary Osteoarthrosis, unspecified whether gene ralized or localized, lower leg Osteoarthritis Osteoarthrosis, unspecified whether gene ralized or localized, unspecified site documented in this encounter Administered Medications Inactive Administered Medications - up to 3 most recent administrations Medication Order MAR Action Action Date Dose Rate Site BUpivacaine (PF) (MARCAINE) 0.25 Given 02/15/2012 1:47 PM EDT 12 .5 mg % (2.5 mg/mL) injection 12.5 mg 12.5 mg, Intra-articular, ONCE, 1 dose, On Alisha 02/15/12 at 1345, Routine lidocaine (XYLOCAINE) 10 mg/mL (1 %) injection Given 0 02/15/2012 1:47 PM EDT 60 mg 60 mg 60 mg, Intra-articular, ONCE, 1 dose, On Alisha 02/15/12 at 1345, Routine triamcinolone acetonide (KENALOG) injection 40 Given 0 02/15/2012 1:47 PM EDT 40 mg mg 40 mg, Intra-articular, ONCE, 1 dose, On Alisha 02/15/12 at 1345, Routine documented in this encounter Care Teams Production Repairer Relationship Specialty Start Date End Date Giorgio Cardona MD PCP - General 10/04/10 04/10/17 [facility] [place] [address] documented as of this encounter
--- OUTSIDE RECORDS SUMMARY | 2022-10-09 16:19 | XMS_ITS | Encounter Summary ---
:1940 Author Organization [facility] [place] [address] Care Team Providers Name Role Phone Giorgio Cardona MD Primary Care Provider Encounter Details Date Type Department Care Team Description 02/15/2012 Orders Only Orthopaedics at [facility] [place] Josefina Epps, Osteoarthritis of knee [facility] MAX (Primary Dx) [place] [address] CENTER [phone] ORTHOPAEDIC SURGERY [place], [place] [address] Social History Tobacco Use Types [...] Visit Dermatology Virgilio Mckeon MD [facility] ER DR [facility] OLOGY [place], [place] [address] (Wo rk) 10/16/2022 Office Visit Otolaryngology Frank Buchanan MD [facility] OTOLARYNGOLOGMireille Smith EPT. [place], [place] [address] (Wo rk) 11/29/2022 Appointment Hematology and Oncology 11/29/2022 Office Visit Radiation Oncology Emerald Leyva APRN [facility] RADIATION ONCOLO [place], [place] [address] (Wo rk) documented as of this encounter Visit Diagnoses Diagnosis Osteoarthritis of knee - Primary Osteoarthrosis, unspecified whether gene ralized or localized, lower leg documented in this encounter Care Teams R D Manager Relationship Specialty Start Date End Date Giorgio Cardona MD PCP - General 10/04/10 04/10/17 [facility] [place] [address] documented as of this encounter
--- OUTSIDE RECORDS SUMMARY | 2022-10-09 16:19 | XMS_ITS | Encounter Summary ---
:1940 Author Organization [place] [address] Care Team Providers Name Role Phone Giorgio Cardona MD Primary Care Provider Reason for Visit Reason Comments Follow-up Encounter Details Date Type Department Care Team Description 02/15/2012 Follow-Up Internal Medicine at [place]re Cardona MD Constipation; [facility] Dyslipidemia; [facility] GERD (gastroesophageal reflux disease); [facility] GENERAL INTERNAL Hypertension; [place] [address] MEDICINE Lung cancer; [phone] [place], [place] [address] S/P mitral valve repair; [phone] (Wo rk) Osteoarthritis; Prostate cancer; Anxiety; S/P thyroidecto my; Post-nasal drip Social History Tobacco Use Types Packs/Day Years Used Date Smoking Tobacco: Never Smokeless Tobacco: Never Alcohol Use Standard Drinks/Week Comments No 0 (1 standard drink = 0.6 oz pure alcoho l) Sex Assigned at Date Recorded Not on file documented as of this encounter Last Filed Vital Signs Vital Sign Reading Time Taken Comments Blood Pressure 120/63 02/15/2012 8:29 AM EDT Pulse 59 02/15/2012 8:29 AM EDT Temperature - - Respiratory Rate - - Oxygen Saturation - - Inhaled Oxygen Concentration - - Weight 66.7 kg (147 lb) 02/15/2012 8:29 AM EDT Height - - Body Mass Index 23.02 01/08/2012 2:20 PM EST documented in this encounter Patient Instructions Patient InstructionsBaGiorgio luciano MD - 02/15/2012 8:54 AM EDT Will arrange MRI soon of the abdomen - this is routine followup for the cyst you had on the pancreaswhich did not look worrisome You do not have diabetes - but try to limit the amount of carbohydrates Let the orthopedic doctors know about your desire to get your knee done. We'll schedule you for a physical right beforehand. documented in this encounter Progress Notes Giorgio Cardona MD - 02/15/2012 8:38 AM EDT Established Patient Follow-up Visit History of Presenting Illness: Patient here to followup on acute and chronic medical issues Very anxious. Gave up pills. He thought that his stomach was bothering him. He starting to deal withthis. Reassured that there is no cancer. Eats late at night. Drinks 2-3 cups of coffee. Symptoms have settled down as well. Heartburn is better. Bowels working fine - using miralax and colace Has cut down on aleve once daily - has not noticed any difference. Still having problems swallowing pills at this time. Lump is better. Going to [place] on Sunday x 2 weeks. Will be back on 09 of March. Has not fallen currently. Pain worse when he goes to bed. Does not want oxycodone. Rather get the knee down. Patient reported measures in the past 7 days Pain:8 Physical Health:Good Mental Health:Fair Patient Active Problem List Diagnoses ??? Dysphagia, unspecified ??? S/P thyroidectomy ??? [...] features. 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 [id number]; KRAS negative, EGFR negative --09/2010: CT scan - normal --02/2011: CT scan --09/2011: CT scan - negative annual CT's afterwards Current outpatient prescriptions:levothyroxine (SYNTHROID) 125 mcg tablet, Take 1 tablet by mouth every morning., Disp: 30 tablet, Rfl: 12; traZODone (DESYREL) 50 mg tablet, Take 0.5-1 tablets by mouthnightly as needed for Sleep., Disp: 30 tablet, Rfl: 5; DISCONTD: fluticasone (FLONASE) 50 mcg/Actuation nasal spray, 1 spray by Each Nare route 2 times daily., Disp: 16 g, Rfl: 12 atenolol (TENORMIN) 50 mg tablet, Take 0.5 tablets by mouth daily., Disp: 30 tablet, Rfl: 3; Omeprazole 20 mg TbEC, Take 40 mg by mouth daily., Disp: 90 mg, Rfl: 3; DISCONTD: citalopram (CELEXA) 10 mg tablet, Take 1 tablet by mouth daily., Disp: 60 tablet, Rfl: 3; polyethylene glycol (MIRALAX) 17 grampacket, Take 17 g by mouth daily., Disp: , Rfl: ; DISCONTD: polyethylene glycol (MIRALAX) 17 gram/dose powder, , Disp: , Rfl: DISCONTD: acetaminophen (TYLENOL) 325 mg tablet, Take 2 tablets by mouth every 4 hours as needed forPain., Disp: 30 tablet, Rfl: ; DISCONTD: Mometasone (NASONEX) 50 mcg/Actuation [place], by Nasal route 2 times daily. One spray each nostril each nostril., Disp: 17 g, Rfl: 12; DISCONTD: montelukast (SINGULAIR) 10 mg tablet, Take 1 tablet by mouth nightly., Disp: 30 tablet, Rfl: 12; DOCUSATE SODIUM (COLACE ORAL), Take by mouth daily., Disp: , Rfl: naproxen sodium (ALEVE) 220 mg tablet, Take 220 mg by mouth 2 times daily., Disp: , Rfl: ; furosemide (LASIX) 20 mg tablet, 40 MG = 2 Tablet(s) PO Once daily and PRN swelling, Disp: , Rfl: ; terazosin (HYTRIN) 2 mg capsule, 4 MG = 2 Capsule(s) PO QHS, Disp: , Rfl: History Social History ??? Marital Status: Single [...] ??? No narrative on file Review of Systems: Constitutional - ( ) fevers ( ) chills, sweats ( ) fatigue Cardiovascular - ( )chest pain ( )palpitations Respiratory - ( )SOB, NIEVES ( )cough, [...] ( ) lymph node swelling Musculoskeletal - ( ) pain at rest or with movement Objective Filed Vitals: 02/15/12 0829 BP: 120/63 Pulse: 59 Weight: 66.679 kg (147 lb) Gen -no acute distress. Alert, responsive and comfortable Gait: grossly intact with normal stride length, speed, and arm swing Assessment/Plan: # Post Nasal drip # Anxiety Much improved. Thinks was anxiety related. Unfortunately stopped Rx. Discussed this in detail. 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 Hoarseness still problematic. # Edema Has cut down to half tablet on lasix # Lung Cancer Seeing Dr. Jacome. CT scan later today. # GERD Suggest increasing to 40mg of prilosec. # Prostate Cancer followup per Rad Onc # Osteoarthritis Wants surgery now. Will forward to Dr. Quezada and then we can schedule for a pre-op consult. # Hypertension We discussed blood pressure goals. Goal blood pressure should be <140/90mmHg. A low sodium diet, avoiding eating out, and reducing the amount of fatty foods eaten. We also discussed the principles of the DASH diet. # ? IPMN Suggest mri of abdomen for f/u. Coordinate with pre-op physical I counselled the patient on the above [...] my nurses, letter, or myD. Next Appointment: pre-op physical once date of surgery determined Total time: 25 Minutes, 15 Of the visit time was spent in [id number] counselling of the above issues Orders placed in this Encounter: Orders Placed This Encounter Procedure ??? *mri generic abdomen Standing Status: Future Number of Occurrences: Standing Expiration Date: 02/14/2013 Order Specific Question: Reason for exam and clinical history: Answer: r/o IPMN - recomended 1 year f/u Order Specific Question: Where will study be performed? Answer: [facility] Order Specific Question: Stat read required? Answer: No Order Specific Question: Does patient require sedation? Answer: None Laboratory Studies No results found for this or any previous visit (from the past 72 hour(s)). documented in this encounter Plan of Treatment Upcoming Encounters Date Type Specialty Care Team Description 10/11/2022 Office Visit Dermatology Virgilio Mckeon MD [facility] DR CHRISTIANO HENSON-DERMAT OLOGY [place], [place] [address] (Wo rk) 10/16/2022 Office Visit Otolaryngology Frank Buchanan MD [facility] OTOLARYNGOLOGY D EPT. [place], [place] [address] (Wo rk) 11/29/2022 Appointment Hematology and Oncology 11/29/2022 Office Visit Radiation Oncology Emerald Leyva APRN [facility] RADIATION ONCOLO [place], [place] [address] (Wo rk) documented as of this encounter Visit Diagnoses Diagnosis Constipation Unspecified constipation Dyslipidemia Other and unspecified hyperlipidemia GERD (gastroesophageal reflux disease) Esophageal reflux Hypertension Unspecified essential hypertension Lung cancer Malignant neoplasm of bronchus and lung, unspecified site S/P mitral valve repair Other postprocedural status Osteoarthritis Osteoarthrosis, unspecified whether gene ralized or localized, unspecified site Prostate cancer Malignant neoplasm of prostate Anxiety Anxiety state, unspecified S/P thyroidectomy Other postprocedural status Post-nasal drip Postnasal drip documented in this encounter Care Teams Automatic Presser Relationship Specialty Start Date End Date Giorgio Cardona MD PCP - General 10/04/10 04/10/17 [facility] GENERAL [place] [address] documented as of this encounter
--- OUTSIDE RECORDS SUMMARY | 2022-10-09 16:19 | XMS_ITS | Encounter Summary ---
:1940 Author Organization [facility] [address] Care Team Providers Name Role Phone Giorgio Cardona MD Primary Care Provider Encounter Details Date Type Department Care Team Description 05/17/2012 Telephone Otolaryngology at [facility] [place] [address] Social History Tobacco Use Types Packs/Day Years Used Date Smoking Tobacco: Never Smokeless Tobacco: Never Alcohol Use Standard Drinks/Week Comments No 0 (1 standard drink = 0.6 oz pure alcoho l) Sex Assigned at Date Recorded Not on file documented as of this encounter Miscellaneous Notes Telephone Encounter - Kesha Powell - 05/17/2012 2:19 PM EDT Left message for patient to call back to schedule surgery. documented in this encounter Plan of Treatment Upcoming Encounters Date Type Specialty Care Team Description 10/11/2022 Office Visit Dermatology Virgilio Mckeon MD [facility] DR CHRISTIANO HENSON-DERMAT OLOGY [place], [place] [address] (Wo rk) 10/16/2022 Office Visit Otolaryngology Frank Buchanan MD [facility] OTOLARYNGOLOGY Sarah EPT. [place], [place] [address] (Wo rk) 11/29/2022 Appointment Hematology and Oncology 11/29/2022 Office Visit Radiation Oncology Emerald Leyva APRN [facility] RADIATION ONCOLO GY [place], [place] [address] (Wo rk) documented as of this encounter Visit Diagnoses Not on filedocumented in this encounter Care Teams Picker Tender Relationship Specialty Start Date End Date Giorgio Cardona MD PCP - General 10/04/10 04/10/17 [facility] GENERAL [place] [address] documented as of this encounter
--- OUTSIDE RECORDS SUMMARY | 2022-10-09 16:19 | XMS_ITS | Encounter Summary ---
:1940 Author Organization [facility] [place] [address] Care Team Providers Name Role Phone Giorgio Cardona MD Primary Care Provider Encounter Details Date Type Department Care Team Description 02/15/[address] Scan at [facility] Lois Jacome MD [facility] [place] [address] [place] [phone] Social History Tobacco Use Types Packs/Day [...] every 4 hours as needed for Pain. levothyroxine (SYNTHROID) Take 1 tablet by 30 tablet 12 12/1310/11/2018 125 mcg tablet mouth every morning. traZODone (DESYREL) 50 mg Take 0.5-1 tablets 30 tablet 5 05/02/2012 tablet by mouth nightly as needed for Sleep. atenolol (TENORMIN) 50 mg Take 0.5 tablets by 30 tablet 3 0 12/15/2011 08/18/2012 tablet mouth daily. Omeprazole 20 mg TbEC Take 40 mg by mouth 90 mg 3 12/1504/11/2012 daily. polyethylene glycol Take 17 g by mouth 0 05/02/2012 (MIRALAX) 17 gram packet daily. DOCUSATE SODIUM (COLACE Take by mouth [...] [facility] DR [facility] OLOGY [place], [place] [address] (Wo rk) 10/16/2022 Office Visit Otolaryngology Frank Buchanan MD [facility] OTOLARYNGOLOGY Sarah EPT. [place], [place] [address] (Wo rk) 11/29/2022 Appointment Hematology and Oncology 11/29/2022 Office Visit Radiation Oncology Emerald Leyva APRN [facility] RADIATION ONCOLO [place]Y [place], [place] [address] (Wo rk) documented as of this encounter Procedures Procedure Name Priority Date/Time Associated Diagnosis Comme nts CT CHEST WO Routine 02/15/2012 3:26 PM Results f or this CONTRAST (GENERIC) EDT procedure are in the results section. documented in this encounter Results CT CHEST WO CONTRAST (02/15/2012 3:26 PM EDT) Anatomical Region Laterality Modality Chest Computed Tomography Specimen (Source) Anatomical Collection Method Collection Time Re ceived Time Location / / Volume Laterality 02/15/2012 3:26 PM EDT Narrative 02/15/2012 3:[address] Chest Without Contrast Clinical History Lung cancer Comparison September 12, 2011. Findings The lungs are stable. ??Post lumpectomy changes are seen in the right. ??No suspicious pulmonary nodules. ??Focal mi ld pleural thickening and/or pleural fluid is seen in the right base. ??No ad enopathy is noted. ??The adrenal glands are stable with an adenoma seen on the l eft adrenal gland. ??The adenoma measures approximately 24 mm in diameter . ??The osseous structures are unremarkable metastasis. The previously noted large left thyroid lesion has been removed. ??No evidence of postsurgical complication. Impression Lungs are stable. ??No evidence of disea se recurrence. Post thyroid resection ?? Stable left adrenal adenoma. Procedure Note Mane Scott MD - 02/15/2012Form atting of this note might be different from the original. Examination CT Chest Without Contrast Clinical History Lung cancer Comparison September 12, 2011. Findings The lungs are stable. Post lumpectomy ch anges are seen in the right. No suspicious pulmonary nodules. Focal mild pleural thickening and/or pleural fluid is seen in the right base. No linda opathy is noted. The adrenal glands are stable with an adenoma seen on the l eft adrenal gland. The adenoma measures approximately 24 mm in diameter . The osseous structures are unremarkable metastasis. The previously noted large left thyroid lesion has been removed. No evidence of postsurgical complication. Impression Lungs are stable. No evidence of disease recurrence. Post thyroid resection Stable left adrenal adenoma. Bing Castro MD IMG CT ORDERABLES documented in this encounter Visit Diagnoses Not on filedocumented in this encounter Care Teams Chain Testing Machine Operator Relationship Specialty Start Date End Date Giorgio Cardona MD PCP - General 10/04/10 04/10/[address] [facility] [address] [place] [address] documented as of this encounter
--- OUTSIDE RECORDS SUMMARY | 2022-10-09 16:19 | XMS_ITS | Encounter Summary ---
:1940 Author Organization [facility] [place] [address] Care Team Providers Name Role Phone Giorgio Cardona MD Primary Care Provider Encounter Details Date Type Department Care Team Description 01/29/2012 Surgery Gastroenterology at [facility] Grant Son, UPPER GI ENDOSCOPY [facility] [place] [address] [facility] [phone] DR GASTROENTEROLOGY [place], [place] [address] (Wo rk) Social History Tobacco Use Types Packs/Day Years Used Date Smoking Tobacco: Never Smokeless Tobacco: Never Alcohol Use Standard Drinks/Week Comments No 0 (1 standard drink = 0.6 oz pure alcoho l) Sex Assigned at Date Recorded Not on file documented as of this encounter Last Filed Vital Signs Vital Sign Reading Time Taken Comments Blood Pressure 116/54 01/29/2012 1:29 PM EDT Pulse 58 01/29/2012 1:29 PM EDT Temperature 36.6 ??C (97.9 ??F) 01/29/2012 12:11 PM EDT Respiratory Rate 16 01/29/2012 1:29 PM EDT Oxygen Saturation 95% 01/29/2012 1:29 PM EDT Inhaled Oxygen Concentration - - Weight - - Height - - Body Mass Index - - documented in this encounter Discharge Instructions Discharge Katina Brown RN - 01/29/2012 1:31 PM EDT You may have received medications before and/or during your procedure which effects judgement and reaction time. Do not drive, operate machinery, drink alcoholic beverages or make important decisions for 24 hours. Be careful on stairs as you may be unsteady on your feet. You may eat a regular diet as tolerated. Do not smoke if you are alone. IV site-- slight redness or tenderness is normal. You may use a warm compress. If tenderness and redness increases or foul drainage occurs, please contact your MD/ Please call [phone] before 5pm with problems, questions or concerns. After 5pm call [phone] and ask to speak with the coding file clerk home demonstration agent. Discharge instructions reviewed with patient who expresses understanding. Patient InstructionsGrant Son MD - 01/29/2012 12:53 PM EDT Please see Recommendations in the Provation procedure report which is documented in the procedural note in E-[facility]. AttachmentsThe following attachments cannot be sent through Care Everywhere. UPPER GI ENDOSCOPY: WHAT TO EXPECT AT HOME (LITHUANIAN)documented in this encounter Medications at Time of [...] by mouth nightly as needed for Sleep. fluticasone (FLONASE) 50 1 spray by Each Nare 16 g 12 0 01/02/2012 02/15/2012 mcg/Actuation nasal route 2 times daily. sprayIndications: Rhinitis atenolol (TENORMIN) 50 mg Take 0.5 tablets by 30 tablet 3 0 12/15/2011 08/18/2012 tablet mouth daily. Omeprazole 20 mg TbEC Take 40 mg by mouth 90 mg 3 12/1504/11/2012 daily. citalopram (CELEXA) 10 mg Take 1 tablet by 60 tablet 3 01/201202/15/2012 tablet mouth daily. polyethylene glycol 0 12/03/201102/14 (MIRALAX) 17 gram/dose powder polyethylene glycol Take 17 g by mouth 0 05/02/2012 (MIRALAX) 17 gram packet daily. acetaminophen (TYLENOL) Take 2 tablets by 30 tablet 0 12/0102/15/2012 325 mg tablet mouth every 4 hours as needed for Pain. Mometasone (NASONEX) 50 by Nasal route 2 17 g 12 201002/15/2012 mcg/Actuation [place] times daily. One spray each nostril each nostril. montelukast (SINGULAIR) Take 1 tablet by 30 tablet 12 201002/15/2012 10 mg tablet mouth nightly. DOCUSATE SODIUM (COLACE Take by mouth daily. 0 06/22/2012 ORAL) naproxen sodium (ALEVE) Take 220 mg by mouth 0 06/22/2012 220 mg tablet 2 times daily. furosemide (LASIX) 20 mg 40 MG = 2 Tablet(s) 0 07/09/2012 tablet PO Once daily and PRN swelling terazosin (HYTRIN) 2 mg 4 MG = 2 Capsule(s) 0 07/09/2012 capsule PO QHS documented as of this encounter H&P Notes Grant Son MD - 01/29/2012 12:52 PM EDT Gastroenterology and Hepatology Pre-Procedure History and Physical Exam Procedure: egd Indication: dysphagia Patient Active Problem List Diagnoses Code ??? [...] S/P thyroidectomy V45.89FE ??? Dysphagia, unspecified 787.20 EXAM: HEENT: Airway examined, oropharynx clear LUNGS: Clear to auscultation HEART: Regular rate and rhythm, normal S1, S2 ABDOMEN: Normal bowel sounds, soft, non tender, non distended, A/P Proceed with EGD Risks and benefits of the procedure explained to the patient. Consent signed. documented in this encounter Miscellaneous Notes Miscellaneous - Provider, Scanning - 01/30/2012 6:53 AM EDT Miscellaneous - Provider, Scanning - 01/30/2012 6:43 AM EDT Miscellaneous - Provider, Scanning - 01/29/2012 1:19 PM EDT documented in this encounter Plan of Treatment Upcoming Encounters Date Type Specialty Care Team Description 10/11/2022 Office Visit Dermatology Virgilio Mckeon MD [facility] DR CHRISTIANO HENSON-DERMAT OLOGY [place], [place] [address] (Wo rk) 10/16/2022 Office Visit Otolaryngology Frank Buchanan MD [facility] OTOLARYNGOLOGY Sarah EPT. [place], [place] [address] (Wo rk) 11/29/2022 Appointment Hematology and Oncology 11/29/2022 Office Visit Radiation Oncology Emerald Leyva APRN [facility] ER DR RYNE NELSON RACHAEL [place], [place] [address] (Wo rk) documented as of this encounter Procedures Procedure Name Priority Date/Time Associated Diagnosis Comme nts SURGICAL PATHOLOGY Routine 01/29/2012 3:53 PM Res ults for this REPORT EDT procedure are i n the results section. SPECIMEN TO Routine 01/29/2012 1:26 PM Results f or this PATHOLOGY EDT procedure are i n the results section. SPECIMEN TO Routine 01/29/2012 1:26 PM Results f or this PATHOLOGY EDT procedure are i n the results section. UPPER GI ENDOSCOPY 01/29/2012 12:58 PM dysphagia EDT UPPER GI ENDOSCOPY Routine 01/29/2012 12:44 PM Re sults for this EDT procedure are i n the results section. documented in this encounter Results SURGICAL PATHOLOGY REPORT (01/29/2012 3:53 PM EDT) Component Value Ref Test Analysis Performed At [facility] gist Range Method Time Signature Surgical CERNER Pathology ? [facility] Report ? Provider: ?? GRANT SON ?Pt. Name: ?? KATLIN MINA ? Acc #: ?[id number] ?Pt. MRN: ?[id number] ? Col Date: ?? 2 ? /Sex: ?1940,(71 years),Male ? Rec Date: ?? 01/29/2012 ? LOC: ?4T ? SURGICAL PATHOLOGY ? ---Pathologic Diagnosis--- ? Endoscopic biopsies - ? A. Gastric antral gla nd mucosa with nonspecific reactive gastropathy. No H. ? pylori-like microorganism is seen. ? B. Esophageal squamous mucosa within normal limits. ? CR-0 ? 01/30/12 ? AAS ? 01/30/12 Verified by: ? Linda Green MD ? Pathologist ? (Electronic Si gnature) ? The attending pathologist whose signature appears o n this report has ? reviewed all diagnostic slides and has edited the uyen ss and/or ? microscopic portion of the report in rendering the fi nal pathologic ? diagnosis. ? ---Microscopic Description--- ? Slides reviewed, microscopic description not recorded . ? ---Gross Description--- ? A - Labeled/Fixative: Bx of antrum rule out H. pylori , formalin. ? Qty/Size/Weight: ?Five, ranging from 0.2 cm to 0.5 cm in ? greatest dimension. ? Tissue Description: ?? Soft, avendaño tissues. ? Sections/Processing: ??(T1) ? B - Labeled/Fixative: Bx of mid esophagus rule out EE , formalin. ? Qty/Size/Weight: ?Four, averaging 0.3. ? Tissue Description: ?? Soft, pink-white tissues. ? Sections/Processing: ??(T1) ??vms/SNS ? ---Clinical Information--- ? Specimen Submitted: ? A - Bx of antrum r/o H pylori ? B - B x of mid esophagus r/o EE ? Clinical History/Diagnosis: ? Patient with dysphagia and antral erosions Specimen (Source) Anatomical Collection Method Collection Time Re ceived Time Location / / Volume Laterality 01/29/2012 3:53 PM EDT Grant Son MD PATHOLOGY/CYTOLOGY ORDERABLE S Performing Organization Address City/State/ZIP [place] [address] CERNER MILLENNIUM Specimen to Pathology (surgical or derm) (01/29/2012 1:26 PM EDT) Specimen Anatomical Collection Method Collection Time Receive d Time (Source) Location / / Volume Laterality AP Specimen 01/29/2012 1:26 PM 2 1:26 EDT PM EDT Narrative CERNER MILLENNIUM - 01/29/2012 1:26 PM E DT Specimen requisition ordered. ??Separate Pathology report to follow Grant Son MD PATHOLOGY/CYTOLOGY ORDERABLE S Performing Organization Address City/[facility]/ZIP Code Phon e Number [address] CERNER MILLENNIUM Specimen to Pathology (surgical or derm) (01/29/2012 1:26 PM EDT) Specimen Anatomical Collection Method Collection Time Receive d Time (Source) Location / / Volume Laterality AP Specimen 01/29/2012 1:26 PM 2 1:26 EDT PM EDT Narrative CERNER MILLENNIUM - 01/29/2012 1:26 PM E DT Specimen requisition ordered. ??Separate Pathology report to follow Grant Son MD PATHOLOGY/CYTOLOGY ORDERABLE S Performing Organization Address City/[facility]/ZIP [place] [address] CERNER MILLENNIUM UPPER GI ENDOSCOPY (01/29/2012 12:44 PM EDT) [facility] Method Time Signature UPPER GI [facility] ENDOSCOPY Endoscopy Patient Name: Katlin Limaeynolds ? Procedure Date: 01/29/2012 12:44 PM ? Date of : 1940 ? Age: 71 ? Order #: [id number] ? Procedure: ? Upper GI endoscopy Indications: ? Heartburn, Dysphagia Providers: ? Grant Son MD, Lindy Javier ? Catrachita, RN, Cameron Gurrola, Clark Mendiola MD: ?Giorgio Cardona MD Medicines: ? Midazolam 3.5 mg IV, Fentanyl 75 ? micrograms IV Complications: ? No immediate complications. Procedure: ? Pre-Anesthesia Assessment: ? - ASA Grade Assessment: II - A ? patient with mild systemic di sease. ? The procedure, indications, b enefits, ? risks and alternatives were e xplained ? to the patient. Specifically ? discussed were potential ? complications including, but not ? limited to, bleeding, perfora tion, ? infection, missing a cancer, and ? adverse medication reactions. The ? Endoscope was introduced thro [facility] the ? mouth, and advanced to the ird part ? of duodenum. The patient tole rated ? the procedure well. The upper GI ? endoscopy was accomplished wi out ? difficulty. The patient liv ated the ? procedure well. ? Findings: ? A small hiatus hernia was present from 38-40 cm. ? Above this was a non-obstructing Schatzki's ring. The ? TTS balloon was insufflated to 20 mm and did not ? provide any dilation indicating the ring was wide ? open.The examined esophagus was normal. Biopsies were ? taken with a cold forceps for histology to r/o EE A ? few localized, small non-bleeding erosions were found ? in the gastric antrum. There were no stigmata of ? recent bleeding. Biopsies were taken with a cold ? forceps for Helicobacter pylori testing. The examined ? duodenum was normal. ? Impression: ?- Hiatus hernia. ? - Normal esophagus. This was biopsied. ? No evidence of obstruction ? - Non-bleeding erosive gastro harvey. ? This was biopsied. ? - Normal examined duodenum. Recommendation: ?- Await pathology results. ? Grant Son MD 01/29/2012 1:29 PM ? Number of Addenda: 0 Note Initiated On: 01/29/2012 12:44 PM Specimen (Source) Anatomical Collection Method Collection Time Re ceived Time Location / / Volume Laterality 01/29/2012 12:44 PM EDT Giorgio Cardona MD GENERAL SURGICAL ORDERABLES Performing Organization Address City/State/ZIP Code Phon e Number [facility] documented in this encounter Visit Diagnoses Not on filedocumented in this encounter Administered Medications Inactive Administered Medications - up to 3 most recent administrations Medication Order MAR Action Action Date Dose Rate Site fentaNYL 50mcg/mL injection Given 01/29/2012 1:11 PM EDT 25 mcg ONCE PRN, Starting on 01/29/12 at 1306, Until Sun01/29/12 at 1720, Pain, Intra-Operative (Intra-Procedure), Routine Given 01/29/2012 1:08 PM EDT 25 mcg Given 01/29/2012 1:06 PM EDT 25 mcg lactated ringers infusion New Bag 01/29/2012 12:23 PM EDT 100 mL/hr 100 mL/hr 100 mL/hr, Intravenous, CONTINUOUS, Starting on 01/29/12 at 1230, Until Sun01/29/12 at 1720, Endoscopy (Day of Procedure) midazolam (VERSED) injection Given 01/29/2012 1:15 PM EDT 0.5 mg ONCE PRN, Starting on Sun01/29/12 at 1306, Until Sun01/29/12 at 1720, Sleep, Intra-Operative (Intra-Procedure), Routine Given 01/29/2012 1:11 PM EDT 1 mg Given 01/29/2012 1:08 PM EDT 1 mg documented in this encounter Active and Recently Administered Medications Times are shown in EDT. Continuous Medication Order 01/27/2012 01/28/2012 01/29/2012 lactated ringers infusion (CANCELED) 1223 (New Bag - Provider: Ramo Neville RN) 100 mL/hr, at 100 mL/hr, Intravenous, CO NTINUOUS, Starting Sun01/29/12 at 1230, Until Sun01/29/12 at 1720, Endo (Day of Procedure) PRN Medication Order 01/27/2012 01/28/2012 01/29/2012 fentaNYL 50mcg/mL injection (CANCELED) 1306 (Given - Provider: Lindy Domínguez RN)1308 (Given - Provider: Lindy Domínguez RN)1311 (Given - Provider: Lindy Domínguez RN) ONCE PRN, Starting Sun01/29/12 at 1306, Until Sun01/29/12 at 1720, Pain, Intra- Operative (Intra-Procedure), Routine midazolam (VERSED) injection (CANCELED) 1306 (Given - Provider: Lindy Domínguez RN)1308 (Given - Provider: Lindy Domínguez RN)1311 (Given - Provider: Lindy Domínguez RN)1315 (Given - Provider: Lindy Domínguez RN) ONCE PRN, Starting Sun01/29/12 at 1306, Until Sun01/29/12 at 1720, Sleep, Intra- Operative (Intra-Procedure), Routine documented in this encounter Care Teams Cooker Helper Relationship Specialty Start Date End Date Giorgio Cardona MD PCP - General 10/04/10 04/10/17 [facility] GENERAL [place] [address] documented as of this encounter
--- OUTSIDE RECORDS SUMMARY | 2022-10-09 16:19 | XMS_ITS | Encounter Summary ---
:1940 Author Organization [facility] [place] [address] Care Team Providers Name Role Phone Giorgio Cardona MD Primary Care Provider Reason for Visit Reason Comments Follow-up Encounter Details Date Type Department Care Team Description 01/02/2012 Follow-Up Otolaryngology at [facility] Nicolette Coon, Vocal cord paralysis (Primar y Dx); [facility] Sarah garcia APRN Rhinitis; [place] [address] [facility] [phone] OTOLARYNGOLOGY DEPT. [place], [place] [address] Social History Tobacco Use Types Packs/Day Years Used Date Smoking Tobacco: Never Smokeless Tobacco: Never Alcohol Use Standard Drinks/Week Comments No 0 (1 standard drink = 0.6 oz pure alcoho l) Sex Assigned at Date Recorded Not on file documented as of this encounter Last Filed Vital Signs Vital Sign Reading Time Taken Comments Blood Pressure 148/67 01/02/2012 8:05 AM EST Pulse 70 01/02/2012 8:05 AM EST Temperature - - Respiratory Rate - - Oxygen Saturation - - Inhaled Oxygen Concentration - - Weight 65.3 kg (144 lb) 01/02/2012 8:05 AM EST Height 170.2 cm (5' 7) 01/02/2012 8:05 AM EST Body Mass Index 22.55 01/02/2012 8:05 AM EST documented in this encounter Progress Notes Nicolette Coon, BONE PULLER - 01/02/2012 8:36 AM EST Date of Visit:01/02/2012 Location of Visit: Otolaryngology Clinic, [facility] Patient: Alfredito Mina 1940, [id number] Chief Complaint: Alfredito is a 71 year old with c/o postnasal drip. He recently had a thyroidectomy performed in November. He has noted a change in his voice since then. Interval History: Juan A is 71 year old with the above complaints. He recently has a thyroidectomy In November 2011. He has noted a slight change in his voice since surgery but he has full volume with his voice. No laryngitis. He denies any problems with swallowing or respiratory issues. Alfredito does have a hx of postnasal drainage and is using Nasonex. He is not sure if helps and its expensive. He denies any hx of sinus issues. He does have a hx of GERD. He is c/o reflux symptoms and abdominal discomfort. He is taking Prilosec 20 mg bid. He is eating late at night and then going to bed. He does notsmoke. He does not drink alcohol. He now drinks 1 cup of coffee/day. He had been drinking 5 cups/day. . Past Medical History: see list. Medications:Current outpatient prescriptions ordered prior to encounter Medication Sig Dispense Refill ??? atenolol (TENORMIN) [...] tablet 12 ??? Mometasone (NASONEX) 50 mcg/Actuation [place] by Nasal route 2 times daily. One [...] 4 MG = 2 Capsule(s) PO QHS Allergies:Lactose ROS: Pertinent positive findings discussed above. No other findings on review of constitutional, visual, cardiovascular, respiratory, gastrointestinal, genitourinary, musculoskeletal, dermatologic, neurological, psychiatric, endocrine, hematologic or immunologic systems. Physical Examination: Blood pressure 148/67, pulse 70, height 170.2 cm (5' 7), weight 65.318 kg (144 lb). General: Age-appropriate interactive behavior in no acute distress. Face:Symmetric without dysmorphic features. Ears: Auricles symmetric bilaterally without lesions. External auditory canals are clear. On the left, tympanic membrane is clear. Middle ear on the left without middle ear pathology. On the right, tympanic membrane clear. Middle ear on the right without middle ear pathology. Nose: Patent anteriorly; healthy pink mucosa without lesions. Septum without significant deviation. Mouth: Lips and gingiva pink, moist, without lesions. Dentition with poor repair. Tongue and floor of mouth soft without lesions or masses. Hard palate without lesions. Pharynx: Soft palate without lesions; uvula intact without evidence of submucus cleft palate. Oropharynx symmetric. Neck: No lymphadenopathy. Procedure Note: Flexible Fiberoptic Laryngoscopy: Topical anesthetic and decongestant applied to the nasal cavity. Patient tolerated the procedure well without any complications. Findings: Nasal cavity : anterior examination reveals septum wnl, turbinates non- edematous,no evidence of neoplastic process such as polyps, no mucopurulent drainage. Nasopharynx: clear without masses or lesions. Eustachian tube openings normal. Oropharynx: normal without masses or lesions. Larynx: base of tongue normal, valleculae is clear, epiglottis normal shape and contour with mild erythema or edema, vocal cord on the right with full mobility, the left with paralysis. There is full abduction of the vocal cords .No discrete lesion . Post-cricoid region normal. Piriform sinuses are clear. Hypopharynx:unremarkable. Impression: 1)Left vocal cord paralysis with recent thyroidectomy. 2)GERD/with nasal rhinitis Plan: Alfredito was encouraged to use nasal rinse and will trial Flonase as it is less expensive compared to Nasonex. I reviewed the finding of the vocal cord paralysis. As I said to Alfredito this may be a temporary issue. He will f/u in 3 months for a recheck. He was given an education sheet on GERD andasked to try to eat dinner earlier in the evening. If he continues to have reflux symptoms he may consider adding Zantac 150 mg 1-2 a day with the PRilosec. I will see him back in 3 months. He does have a f/u with after his thyroid surgery. Nicolette CASTILLO [facility] Otolaryngology-Head and Neck Surgery [place], [place] [address] documented in this encounter Plan of Treatment Upcoming Encounters Date Type Specialty Care Team Description 10/11/2022 Office Visit Dermatology Virgilio Mckeon MD [facility] DR CHRISTIANO HENSON-DERMAT OLOGY [place], [place] [address] (Wo rk) 10/16/2022 Office Visit Otolaryngology Frank Buchanan MD [facility] OTOLARYNGOLOGY Sarah EPT. [place], [place] [address] (Wo rk) 11/29/2022 Appointment Hematology and Oncology 11/29/2022 Office Visit Radiation Oncology Emerald Leyva APRN [facility] RADIATION ONCCESAR GY [place], [place] [address] (Wo rk) documented as of this encounter Visit Diagnoses Diagnosis Vocal cord paralysis - Primary Paralysis of vocal cords or larynx, unsp ecified Rhinitis Chronic rhinitis Reflux Esophageal reflux documented in this encounter Care Teams Electromechanical Technologist Relationship Specialty Start Date End Date Giorgio Cardona MD PCP - General 10/04/10 04/10/17 [facility] [place] [address] documented as of this encounter
--- OUTSIDE RECORDS SUMMARY | 2022-10-09 16:19 | XMS_ITS | Encounter Summary ---
:1940 Author Organization [facility] [place] [address] Care Team Providers Name Role Phone Giorgio Cardona MD Primary Care Provider Reason for Visit Reason Onset Date Comments Medication Refill 12/29/2011 Encounter Details Date Type Department Care Team Description 12/29/2011 Refill General Surgery at [facility] [place] [address] Social History Tobacco Use Types Packs/Day Years Used Date Smoking Tobacco: Never Smokeless Tobacco: Never Alcohol Use Standard Drinks/Week Comments No 0 (1 standard drink = 0.6 oz pure alcoho l) Sex Assigned at Date Recorded Not on file documented as of this encounter Miscellaneous Notes Telephone Encounter - Randall Swain RN - 12/29/2011 10:28 AM EST 12/29/11 Patient called that he was out of his synthroid medication. I called the pharmacy and he has 12 refills left. Plan: I ask pharmacist to refill one. A message was left on patient's phone that he could scrap picker his med at pharmacy. documented in this encounter Plan of Treatment Upcoming Encounters Date Type Specialty Care Team Description 10/11/2022 Office Visit Dermatology Virgilio Mckeon MD [facility] ER DR [address]-DERMAT OLOGY [place], [place] [address] (Wo rk) 10/16/2022 Office Visit Otolaryngology Frank Buchanan MD [facility] OTOLARYNGOLOGY Sarah EPT. [place], [place] [address] (Wo rk) 11/29/2022 Appointment Hematology and Oncology 11/29/2022 Office Visit Radiation Oncology Emerald Leyva APRN [facility] RADIATION ONCOLO GY [place], [place] [address] (Wo rk) documented as of this encounter Visit Diagnoses Not on filedocumented in this encounter Care Teams Traffic Maintenance Officer Relationship Specialty Start Date End Date Giorgio Cardona MD PCP - General 10/04/10 04/10/17 [facility] GENERAL INTER[place] [address] documented as of this encounter
--- OUTSIDE RECORDS SUMMARY | 2022-10-09 16:19 | XMS_ITS | Encounter Summary ---
:1940 Author Organization [facility] [place] [address] Care Team Providers Name Role Phone Giorgio Cardona MD Primary Care Provider Encounter Details Date Type Department Care Team Description 12/06/2011 Orders Only General Surgery at [facility] S/P thyroidectomy [facility] MD Christofer (Primary Dx) [facility] [place] [facility] [id number] [place] [address] [phone] Social History Tobacco Use Types Packs/Day Years [...] Virgilio Mckeon MD [facility] ER DR CHRISTIANO HENSON-DERMAT OLOGY [place], [place] [address] (Wo rk) 10/16/2022 Office Visit Otolaryngology Frank Buchanan MD [facility] OTOLARYNGOLOGMireille Smith EPT. [place], [place] [address] (Wo rk) 11/29/2022 Appointment Hematology and Oncology 11/29/2022 Office Visit Radiation Oncology Emerald Leyva APRN [facility] RADIATION ONCOLO GY [place], [place] [address] (Wo rk) documented as of this encounter Results T4 (01/08/2012 10:15 AM EST) athologist Signature T4, total 7.9 5.1 - 10.8 CERNER mcg/dL MILLENNIUM Comment: Reference Range: [place] Cord Blood: ??6.9-14.4 mcg/dL Females: ??7.2-14.2 mcg/dL Pediatric ranges: ??Interpret with cauti on-ranges have not been verified Specimen Anatomical Collection Method Collection Time Receive d Time (Source) Location / / Volume Laterality Blood specimen 01/08/2012 10:15 2 (specimen) AM EST 10:22 AM EST Resulting Agency Comment Spec In Lab Andi Guthrie MD CHEMISTRY ORDERABLES Performing Organization Address City/State/[place] [address] CERNER MILLENNIUM TSH (01/08/2012 10:15 AM EST) athologist Signature TSH 0.36 0.27 - 4.20 CERNER mcIU/mL MILLENNIUM Specimen Anatomical Collection Method Collection Time Receive d Time (Source) Location / / Volume Laterality Blood specimen 01/08/2012 10:15 2 (specimen) AM EST 10:22 AM EST Resulting Agency Comment Spec In Lab Andi Guthrie MD CHEMISTRY ORDERABLES Performing Organization Address City/State/[place] [address] CERNER MILLENNIUM documented in this encounter Visit Diagnoses Diagnosis S/P thyroidectomy - Primary Other postprocedural status documented in this encounter Care Teams Director [employer] Relationship Specialty Start Date End Date Giorgio Cardona MD PCP - General 10/04/10 04/10/17 [facility] GENERAL [place] [address] documented as of this encounter
--- OUTSIDE RECORDS SUMMARY | 2022-10-09 16:19 | XMS_ITS | Encounter Summary ---
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 Surgeon(s) and Role: * FRANK GUTHRIE MD - Primary Seven Long, Chief Resident Preoperative diagnosis: MNG Postoperative diagnosis: * No post-op diagnosis entered * Procedure(s): THYROIDECTOMY, INCL. SUBSTERNAL, CERVICAL APPROACH FACIAL NERVE MONITORING, SETUP Anesthesia: General Estimated Blood Loss: 25cc Drains: AISSATOU, #7 Disposition: awakened from anesthesia, extubated and taken to the recovery room in a stable condition, having suffered no apparent untoward event. Condition: doing well without problems (Please see the Surgical Encounter Summary for any Implant and Specimen details pertinent to this patient.) HPI/Surgical Indications: He has been aware of having an enlarged thyroid for at least 15 years, and was evaluated by Dr. Arceo in 1999 at which time he had a MNG extending below the clavicles bilaterally. FNA was attempted and unsuccessful, and he was not scheduled for follow up. He was seen in 03/[address] Jeff for hyperthyroidism, and was treated with BRETT x 2. He has been aware of increasing dry cough over the past year, and awaiting a right TKA and was referred by Dr. Rob to consider thyroidectomy. 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 He has a family history of thyroid disease with a p/GM who had a MNG . He has no history of head or neck irradiation. He has no dysphagia or dysphonia. Procedure Description: Findings: Recurrent laryngeal nerves identified and presevered on the right, transected on the left. Hemostatsis included surgiceal left in situ bilaterally. Parathyroids identified and preserved, in situ on the right. Procedure: Patient was met in Same Day where consent was confirmed. Met again in OR, placed in a supine position on the OR table. After GETA was administered they were repositioned with arms tucked and neck slightly hyperextended with knees bent; head, arms, hands and knees were padded. The face, neck and chest were then cleaned, prepped and draped in the usual sterile manner. An appropriate time out was done. Laryngeal nerve monitor in place and functioning throughout case. A symmetric skin crease incision was made 2 cm above the sternal notch. This was deepened through the subcutaneous tissue and platysma. Infraplatysmal flaps were developed cephalad above the thyroid cartilage, laterally to the sternocleidomastoid muscle and inferiorly to the sternal notch with Bouvie.The sternohyoid then sternothyroid muscles were divided at the midline raphae and retracted laterally thus exposing the thyroid. Pathology was evident in the form of hypervascularity, enlargement and nodularity. We began our dissection on the left thyroid lobe. The thyroid was displaced medially and initially the sternothyroid and thyrohyoid were transected with the harmonic allowing us access to the very laterally displaced and enlarged gland. Using blunt dissection the caudal end of the lobe was palpated in the anterior mediastinum. What was believed to bethe middle thyroid vein was identified and a harmonic and silk tie were used for ligation. Then moving inferior we identified vessels also ligated with harmonic. After also transecting the superior vascular structures we were able to pull the thyroid from the mediastinum. However on being able to medially rotate the gland the left recurrent laryngeal nerve was seen adhered to the posteriormedial thyro id. Tracing this caudally delineated that it was transected. The thyroid was then removed from the trachea at the isthmus and this half of the specimen was handed off to pathology. Given that the right thyroid was indurated and nodular we decided to explore and then decide about whether to complete the thyroidectomy. On exploration there was less inflammation and size to hamper this dissection, also the laryngeal nerve was easily delineated and followed visually and with the monitor. When completed the dissection being careful to preserve the superior and inferior parathyroids and their blood supply. The superior, middle and inferior vascular pedicles were ligated using the harmonic. The specimen was handed off for pathology. The right laryngeal nerve had a good signal at the end of the procedure. A drain was placed exiting the right side of the neck. We evaluated each side of the neck under 30mmHg valsalva and found hemostasis to be adequate. Surgiceal was placed bilaterally and left in situ. There sternohyoid and sternothyroid were reapproximated with mattress vicryl sutures x 2. The strap muscles were reapproximated at midline with a running, locking, monocryl. The platysma was reapproximated with a running, every-other locking stitch. The epidermis was reapproximated with running subcuticular monocryl. All counts were correct at the end of the procedure Dr. Guthrie was present and participated in the entirety of the procedure. documented in this encounter Plan of Treatment Upcoming Encounters Date Type Specialty Care Team Description 10/11/2022 Office Visit Dermatology Virgilio Mckeon MD [facility] DR CHRISTIANO HENSON-DERMAT OLOGY [place], [place] [address] (Wo rk) 10/16/2022 Office Visit Otolaryngology Frank Buchanan MD [facility] OTOLARYNGOLOGY Sarah EPT. [place], [place] [address] (Wo rk) 11/29/2022 Appointment Hematology and Oncology 11/29/2022 Office Visit Radiation Oncology Emerald Leyva APRN [facility] RADIATION ONCCESAR GY [place], [place] [address] (Wo rk) documented as of this encounter Procedures Procedure Name Priority Date/Time Associated Comments Diagnosis E BUSINESS MANAGER SCAN 12/03/2011 3:29 PM R esults for this EST procedure are i n the results section. FACIAL NERVE Routine 12/01/2011 7:17 AM MONITORING, SETUP EST DIFFERENTIAL, Routine 12/01/2011 5:12 AM Results for this AUTOMATED EST procedure are i n the results section. CBC (WITH DIFF) Routine 12/01/2011 5:12 AM Result s for this EST procedure are i n the results section. BASIC METABOLIC Routine 12/01/2011 5:12 AM Result s for this PANEL (NON-FASTING) EST procedur e are in the results section. DIFFERENTIAL, Routine 11/30/2011 7:15 PM Results for this AUTOMATED EST procedure are i n the results section. CBC (WITH DIFF) Routine 11/30/2011 7:15 PM Result s for this EST procedure are i n the results section. PHOSPHORUS Routine 11/30/2011 7:15 PM Results f or this EST procedure are i n the results section. MAGNESIUM Routine 11/30/2011 7:15 PM Results f or this EST procedure are i n the results section. BASIC METABOLIC Routine 11/30/2011 7:15 PM Result s for this PANEL (NON-FASTING) EST procedur e are in the results section. SPECIMEN TO Routine 11/30/2011 5:41 PM Results f or this PATHOLOGY EST procedure are i n the results section. SURGICAL PATHOLOGY Routine 11/30/2011 5:28 PM Res ults for this REPORT EST procedure are i n the results section. SPECIMEN TO Routine 11/30/2011 5:11 PM Results f or this PATHOLOGY EST procedure are i n the results section. BLOOD GAS 2 ARTERIAL Routine 11/30/2011 4:06 PM R esults for this EST procedure are i n the results section. FACIAL NERVE 11/30/2011 2:55 PM MNG MONITORING, SETUP EST PERIPHERAL (WRVU 0.54) THYROIDECTOMY, INCL. 11/30/2011 2:55 PM MNG SUBSTERNAL, CERVICAL EST APPROACH (WRVU 17.62) documented in this encounter Results SCAN DOC: E BUSINESS MANAGER (12/03/2011 3:29 PM EST) Anatomical Region Laterality Modality Other Narrative 12/04/2011 10:38 AM EST Procedure Note Provider, Scanning - 12/03/2011 3:29 PM EST Scanning Provider MEDIA MGR SCAN EXT ORDR/RSLT (ABNORMAL) DIFFERENTIAL, AUTOMATED (12/01/2011 5:12 AM EST) [facility] gist Method Time Signature Neutrophils % 75.1 (H) 34.0 - CERNER 71.0 % MILLENNIUM Neutr Abs (ANC) 6.70 (H) 1.50 - CERNER 6.30 MILLENNIUM x10(3)/mc L Lymphocytes % 12.9 (L) 19.0 - CERNER 53.0 % MILLENNIUM Lymphocytes Abs 1.2 1.0 - 3.6 CERNER x10(3)/mc MILLENNIUM L Monocytes % 11.8 4.0 - CERNER 13.0 % MILLENNIUM Monocyte Abs 1.0 0.2 - 1.0 CERNER x10(3)/mc MILLENNIUM L Eosinophils % 0.0 0.0 - 7.0 CERNER % MILLENNIUM Eosinophils [...] Location / / Volume Laterality Blood specimen 12/01/2011 5:12 AM 012 5:19 (specimen) EST AM EST Frank Guthrie MD HEMATOLOGY ORDERABLES Performing Organization Address City/State/[place] [address] CERNER MILLENNIUM (ABNORMAL) Basic Metabolic Panel (non-fasting) (12/01/2011 5:12 AM EST) athologist Signature Glucose Lvl 122 60 - 199 CERNER mg/dL MILLENNIUM Comment: Diabetes: >=200 mg/dL plus symp toms BUN 19 10 - 20 mg/dL CERNER MILLENNIU M Creatinine 0.78 (L) 0.80 - 1.50 mg/dL CERNER MILL ENNIUM Sodium 140 135 - 145 mmol/L CERNER PATRICK NIUM Potassium 4.4 3.5 - 5.0 mmol/L CERNER PATRICK NIUM Comment: Please note: ??Patients with WBC >100,00 0 may have falsely elevated Potassium levels. ??For accurate Potassium quantif ication in these patients send serum separator tube (gold top) for subsequent determinations. ??Contact the Clinical Chemistry Laboratory if there are any qu estions. Chloride 106 98 - 107 mmol/L CERNER MILLENN IUM CO2 27 22 - 31 mmol/L CERNER MILLENNI UM Anion Gap 7 5 - 15 mmol/L CERNER MILLENNIU M Calcium 7.7 (L) 8.5 - 10.5 mg/dL CERNER PATRICK NIUM Comment: result rechecked-pmh Estimated GFR >60 >=60 CERNER MILLENNIU M Comment: The National Kidney Disease Education Pr ogram (NKDEP) has recommended all laboratories report estimated GFR (eGFR) along with plasma creatinine measurements to assist you with recognit ion of early kidney disease. Caveats: ??Plasma creatinine should be a t steady-state (unchanged within the past week). For patient s multiply eGFR by 1.2. The MDRD equation has not been validated for pedi atric patients and is only valid for patients with age >= 18 years. At present, NKDEP does NOT recommend usi [...] kidney disease. References: http://nkdep.nih.gov/resources/NKDEP_Sug gestn4Labs_0606_508.pdf http://www.kidney.org/professionals/kls/ pdf/faq_gfr.pdf Specimen Anatomical Collection Method Collection Time Receive d Time (Source) Location / / Volume Laterality Blood specimen 12/01/2011 5:12 AM 012 5:19 (specimen) EST AM EST Frank Guthrie MD CHEMISTRY ORDERABLES Performing Organization Address City/[facility]/ZIP Code Phon e Number [address] CERNER MILLENNIUM (ABNORMAL) CBC (with Diff) (12/01/2011 5:12 AM EST) P athologist Signature WBC 8.9 4.0 - 10.0 CERNER x10(3)/mcL MILLENNIUM RBC 3.54 (L) 4.63 - CERNER 6.08 MILLENNIUM x10(6)/mcL Hemoglobin 11.6 (L) 13.7 - CERNER 17.5 gm/dL MILLENNIUM Hematocrit 34.5 (L) 40.0 - CERNER 51.0 % MILLENNIUM MCV 97.5 (H) 79.0 - CERNER 92.0 fL MILLENNIUM MCH 32.8 (H) 25.6 - CERNER 32.2 pg MILLENNIUM MCHC 33.6 32.0 - CERNER 36.5 gm/dL MILLENNIUM Platelets 152 145 - 370 CERNER x10(3)/mcL MILLENNIUM RDWSD 48.3 (H) 35.0 - CERNER 46.0 fL MILLENNIUM RDWCV 13.4 10.9 - CERNER 14.4 % MILLENNIUM MPV 10.9 9.0 - 12.0 CERNER fL MILLENNIUM Specimen Anatomical Collection Method Collection Time Receive d Time (Source) Location / / Volume Laterality Blood specimen 12/01/2011 5:12 AM 012 5:19 (specimen) EST AM EST Frank Guthrie MD HEMATOLOGY ORDERABLES Performing Organization Address City/[facility]/ZIP [facility] [place] [address] CERNER MILLENNIUM (ABNORMAL) DIFFERENTIAL, AUTOMATED (11/30/2011 7:15 PM EST) Patholo gist Method Time Signature Neutrophils % 92.0 (H) 34.0 - CERNER 71.0 % MILLENNIUM Neutr Abs (ANC) 6.49 (H) 1.50 - CERNER 6.30 MILLENNIUM x10(3)/mc L Lymphocytes % 6.5 (L) 19.0 - CERNER 53.0 % MILLENNIUM Lymphocytes Abs 0.5 (L) 1.0 - 3.6 CERNER x10(3)/mc MILLENNIUM L Monocytes % 1.3 (L) 4.0 - CERNER 13.0 % MILLENNIUM Monocyte Abs 0.1 (L) 0.2 - 1.0 CERNER x10(3)/mc MILLENNIUM L Eosinophils % 0.1 0.0 - 7.0 CERNER % MILLENNIUM Eosinophils [...] Location / / Volume Laterality Blood specimen 11/30/2011 7:15 PM 012 7:25 (specimen) EST PM EST Frank Guthrie MD HEMATOLOGY ORDERABLES Performing Organization Address City/State/[place] [address] CERNER MILLENNIUM (ABNORMAL) Phosphorus (11/30/2011 7:15 PM EST) P athologist Signature Phosphorus 2.3 (L) 2.5 - 4.5 CERNER mg/dL MILLENNIUM Specimen Anatomical Collection Method Collection Time Receive d Time (Source) Location / / Volume Laterality Blood specimen 11/30/2011 7:15 PM 012 7:25 (specimen) EST PM EST Frank Guthrie MD CHEMISTRY ORDERABLES Performing Organization Address [facility] [place] [address] CERNER MILLENNIUM Magnesium (11/30/2011 7:15 PM EST) P athologist Signature Magnesium 0.75 0.69 - 1.07 CERNER mmol/L MILLENNIUM Specimen Anatomical Collection Method Collection Time Receive d Time (Source) Location / / Volume Laterality Blood specimen 11/30/2011 7:15 PM 012 7:25 (specimen) EST PM EST Frank Guthrie MD CHEMISTRY ORDERABLES Performing Organization Address City/[facility] [place] [address] CERNER MILLENNIUM Basic Metabolic Panel (non-fasting) (11/30/2011 7:15 PM EST) P athologist Signature Glucose Lvl 137 60 - 199 CERNER mg/dL MILLENNIUM Comment: Diabetes: >=200 mg/dL plus symp toms BUN 20 10 - 20 mg/dL CERNER MILLENNIU M Creatinine 0.83 0.80 - 1.50 mg/dL CERNER MILL ENNIUM Sodium 139 135 - 145 mmol/L CERNER PATRICK NIUM Potassium 3.9 3.5 - 5.0 mmol/L CERNER PATRICK NIUM [...] multiply eGFR by 1.2. The MDRD equation has not been validated for pedi atric patients and is only valid for patients with age >= 18 years. At present, NKDEP does NOT recommend usi [...] kidney disease. References: http://nkdep.nih.gov/resources/NKDEP_Sug gestn4Labs_0606_508.pdf http://www.kidney.org/professionals/kls/ pdf/faq_gfr.pdf Specimen Anatomical Collection Method Collection Time Receive d Time (Source) Location / / Volume Laterality Blood specimen 11/30/2011 7:15 PM 012 7:25 (specimen) EST PM EST Frank Guthrie MD CHEMISTRY ORDERABLES Performing Organization Address City/State/[place] [address] [facility] NELSON[facility]ATERINEIUM (ABNORMAL) CBC (with Diff) (11/30/2011 7:15 PM EST) P athologist Signature WBC 7.1 4.0 - 10.0 CERNER x10(3)/mcL MILLENNIUM RBC 3.98 (L) 4.63 - CERNER 6.08 MILLENNIUM x10(6)/mcL Hemoglobin 13.2 (L) 13.7 - CERNER 17.5 gm/dL MILLENNIUM Hematocrit 38.3 (L) 40.0 - CERNER 51.0 % MILLENNIUM MCV 96.2 (H) 79.0 - CERNER 92.0 fL MILLENNIUM MCH 33.2 (H) 25.6 - CERNER 32.2 pg MILLENNIUM MCHC 34.5 32.0 - CERNER 36.5 gm/dL MILLENNIUM Platelets 172 145 - 370 CERNER x10(3)/mcL MILLENNIUM RDWSD 46.9 (H) 35.0 - CERNER 46.0 fL MILLENNIUM RDWCV 13.4 10.9 - CERNER 14.4 % MILLENNIUM MPV 11.2 9.0 - 12.0 CERNER fL MILLENNIUM Specimen Anatomical Collection Method Collection Time Receive d Time (Source) Location / / Volume Laterality Blood specimen 11/30/2011 7:15 PM 012 7:25 (specimen) EST PM EST Frank Guthrie MD HEMATOLOGY ORDERABLES Performing Organization Address City/State/[place] [address] [facility] Specimen to Pathology (surgical or derm) (11/30/2011 5:41 PM EST) Specimen Anatomical Collection Method Collection Time Receive d Time (Source) Location / / Volume Laterality AP Specimen 11/30/2011 5:41 PM 2 5:41 EST PM EST Narrative CERNER MILLENNIUM - 11/30/2011 5:[address] Specimen requisition ordered. ??Separate Pathology report to follow Frank Guthrie MD PATHOLOGY/CYTOLOGY ORDERABLE S Performing Organization Address City/[facility]/ZIP [facility] [place] [address] [facility] MILLENNIUM SURGICAL PATHOLOGY REPORT (11/30/2011 5:28 PM EST) Component Value Ref Test Analysis Performed At [facility] Range Method Time Signature Surgical CERNER Pathology ? [facility] Report ? Provider: ?? FRANK GUTHRIE Pt. Name: ?? ALFREDITO BENJAMIN ? Acc #: ?[id number] ?Pt. MRN: ?[id number] ? Col Date: ?? 2 ? /Sex: ?1940,(71 years),Male ? Rec Date: ?? 11/30/2011 ? LOC: ?4WST ? SURGICAL PATHOLOGY ? ---Pathologic Diagnosis--- ? A - Left lobe of thyroid, partial thyroidectomy: ?Multinodular hyperplasia with a dominant nodu le, 10.5 cm, ? macrofollicular pattern. ? B - Right lobe of thyroid, partial thyroidectomy: ? Multinodular hyperplasia. ? CR-0 ? 12/05/11 ? LJT ? 12/05/11 Verified by: ? Geetha GALINDO, Judy Rodriguez ? Pathologist ? (Electronic Si gnature) ? The attending pathologist whose signature appears o n this report has ? reviewed all diagnostic slides and has edited the uyen ss and/or ? microscopic portion of the report in rendering the fi nal pathologic ? diagnosis. ? ---Microscopic Description--- ? Slides reviewed, microscopic description not recorded . ? ---Gross Description--- ? A - Labeled/Fixative: ? Left lobe thyroid, fresh. ? Qty/Size/Weight: ?Single, 10.5 x 6.0 x 4 .5 cm, 164 g. ? Tissue Description: ? Left lobe of thyroid. ?External Surface : ?Tense, avendaño-peres with what appears to be a ? dominant lower lobe nodule, 10.5 cm in greatest ? diameter. ?Parathyroid(s) ? Not identified. ?Lesion: ?In the lower pole there is a dominant nodule. ? Size: ? 10.5 x 6.0 x 4.5 cm. ? Contour/Caps ule: ?Well circumscribed, avendaño-yellow colloid surface ? with focal janae cification. ?Remaining parenchyma: ??Shows multip le smaller, similar-appearing ? nodules. ? Sections/Processing: ?Ballet Dancer sections are submitted in twelve ? cassettes. ??( R12) ? B - Labeled/Fixative: ? Right lobe of thyroid, fr esh. ? Qty/Size/Weight: ?Single, 4.5 x 3.3 x 3. 3 cm, 15 g. ? Tissue Description: ?External Surface: ?Smooth, tense, avendaño-bro wn. ? [facility] ? Provider: ?? FRANK GUTHRIE Pt. Name: ?? MADISON AUSTIN, ALFREDITO J ? Acc #: ?[id number] ?Pt. MRN: ?[id number] ? Col Date: ?? 2 ? /Sex: ?1940,(71 years),Male ? Rec Date: ?? 11/30/2011 ? LOC: ?4WST ? SURGICAL PATHOLOGY ?Parathyroid(s) ? Not identified. ?Parenchyma: ?The specimen is serially sectioned from upper to ? lower pole revealing avendaño-brown nodular parenchyma ? with multiple colloid nodules throughout the ? lobe. ? Sections/Processing: ?(R6) ??aje/PPS ? ---Clinical Information--- ? Specimen Submitted: ? A - Left Lobe of Thyroid ? B - Right lobe of thyroid ? Clinical History/Diagnosis: ? MNG Specimen (Source) Anatomical Collection Method Collection Time Re ceived Time Location / / Volume Laterality 11/30/2011 5:28 PM EST Frank Guthrie MD PATHOLOGY/CYTOLOGY ORDERABLE S Performing Organization Address City/State/[place] [address] [facility] Specimen to Pathology (surgical or derm) (11/30/2011 5:11 PM EST) Specimen Anatomical Collection Method Collection Time Receive d Time (Source) Location / / Volume Laterality AP Specimen 11/30/2011 5:11 PM 2 5:11 EST PM EST Narrative CERNER MILLENNIUM - 11/30/2011 5:[address] Specimen requisition ordered. ??Separate Pathology report to follow Frank Guthrie MD PATHOLOGY/CYTOLOGY ORDERABLE S Performing Organization Address City/State/ZIP Code Phon e Number [place] [id number] CERNER MILLENNIUM (ABNORMAL) BLOOD GAS 2 ARTERIAL (11/30/2011 4:06 PM EST) Analysis Performed At Patho logist Time Signature pH Art 7.47 (H) CERNER MILLENNIUM pCO2 Art 35 mmHg CERNER MILLENNIUM pO2 Art 353 (H) mmHg CERNER MILLENNIUM HCO3 Art 25.1 mmol/L CERNER MILLENNIUM BE Art 1.5 mmol/L CERNER MILLENNIUM Hgb Blood Gas 12.7 (L) gm/dL CERNER MILLENNIUM Comment: Total Hemoglobin (in gm/dL) ?Based on [facility] Hematology ran ges: ?Age ?Referen ce Range Less than 3 days ?14.5 to 22.5 3 days to 2 weeks ? 12.5 to 20.5 2 weeks to 1 month ?10.0 to 18.0 1 to 6 months ?9.4 to 14 .0 6 months to 2 years ? 10.5 to 13.5 2 to 6 years ?11.5 to 13 .5 6 to 12 years ? 11.5 to 15. 5 12 to 18 years (female) 12.0 to 16.0 ? (male) ?? 13.0 to 16.0 > 18 years ? (female) 11.2 to 15.7 ? (male) ?? 13.7 to 17.5 O2HB Art 99.2 (H) % CERNER MILLENNIUM COHB Art 0.5 % CERNER MILLENNIUM Comment: Nonsmokers: 0.5-1.5% COHB Smokers: Variable, but usually less than 10% Toxic: 20-30% COHB Lethal: Greater than 60% COHB METHB Art 0.2 % CERNER MILLENNIUM Na Whole Blood 137 mmol/L CERNER MILLENNI UM K Whole Blood 3.8 mmol/L CERNER MILLENNIU M Comment: Please note: Patients with WBC >100,000 may have falsely elevated Potassium levels. Contact the Clinical Chemistry L aboratory if there are any questions. ICa Whole Blood 1.19 mmol/L CERNER MILLENN IUM Comment: Reference Ranges: ?? < 19 yrs: 1.22 - 1.37 mmol/L ? Adults: 1.15 - 1.33 mmol/L Note: ??Total bilirubin higher than 20 m g/dL may lead to falsely low ionized calcium. CL Whole Blood 108 (H) mmol/L CERNER MILLENNI UM Gluc Whole Bld 97 mg/dL CERNER MILLENNI UM Comment: Diabetes: >=200 mg/dL plus symp toms. 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, unspecified whether gene ralized or localized, lower leg documented in this encounter Administered Medications Inactive Administered Medications - up to 3 most recent administrations Medication Order MAR Action Action Date Dose Rate Site ceFAZolin (ANCEF) 2g in dextrose Given by Other 11/30/2011 1:30 PM ES T 2 g 5% 100mL 2 g, Intravenous, ONCE, 1 dose, On Alisha 11/30/11 at 1330, Administer over 30 Minutes, Redose after 4 hours., Day of Surgery (Day of Procedure) heparin (porcine) Given 11/30/2011 11:42 PM 5,000 Units Abdominal Tissue subcutaneous injection EST 5,000 Units 5,000 Units, Subcutaneous, EVERY 12 HOURS SCHEDULED (2 times per day), First dose on Alisha 11/30/11 at 2330, Until Discontinued, Routine HYDROmorphone (DILAUDID) 1 New Syringe/Cartridge 11/30/2011 7:[address] mL/hr mg/mL HOST/HOSTESS RESTAURANT 30 mL Intravenous, HOST/HOSTESS RESTAURANT ONLY, Starting on Sun11/30/11 at 1915, Until Sun12/01/11 at 0526 HYDROmorphone (DILAUDID) tablet 2 mg Given 12/01/2011 7:03 AM EST 2 mg 2 mg, Oral, EVERY 4 HOURS PRN, Starting on Sun12/01/11 at 0527, Until Sun12/01/11 at 1601, Pain, Routine HYDROmorphone (PF) (DILAUDID) 2 mg/mL Given 11/30/2011 6:[address] 0.2 mg injection 0.2-0.4 mg 0.2-0.4 mg, Intravenous, EVERY 5 MIN PRN, Starting on Sun11/30/11 at 1842, Until Sun11/30/11 at 2211, Pain, For moderate pain give: 0.2 mg every 5 minute prn For severe pain give: 0.4 mg every 5 minutes prn Maximum dose: 4 mg per hour Hold for respiratory rate less than 10 per minute., PACU Recovery, Routine Given 11/30/2011 6:50 PM EST 0.4 mg lactated ringers infusion 1,000 New Bag 11/30/2011 1:30 PM EST 1,000 mLs 100 mL/hr mL 1,000 mL, at 100 mL/hr, Intravenous, CONTINUOUS, Starting on Sun11/30/11 at 1330, Until Sun11/30/11 at 2255, Day of Surgery (Day of Procedure) levothyroxine (SYNTHROID) tablet 125 mcg Given 12/01/2011 6:00 AM EST 125 mcg 125 mcg, Oral, EVERY MORNING, First dose on Sun12/01/11 at 0600, Until Discontinued, STAT metoprolol (LOPRESSOR) injection 5 mg Given 12/01/2011 4:39 AM EST 5 mg 5 mg, Intravenous, EVERY 4 HOURS, First dose on Alisha 11/30/11 at 1945, Until Discontinued, Hold HR < 60, sbp < 90 Given 11/30/2011 11:41 PM EST 5 mg Given 11/30/2011 7:45 PM EST 5 mg montelukast (SINGULAIR) tablet 10 mg Given 11/30/2011 11:42 PM EST 10 mg 10 mg, Oral, NIGHTLY, First dose on Alisha 11/30/11 at 2330, Until Discontinued, Routine ondansetron (ZOFRAN) injection 4 mg Given 12/01/2011 7:34 AM EST 4 mg 4 mg, Intravenous, EVERY 8 HOURS PRN, Starting on Alisha 11/30/11 at 2305, Until Sun12/01/11 at 1601, Nausea sodium chloride 0.9 % flush 5 mL Given 11/30/2011 11:30 PM EST 5 mLs 5 mL, Intravenous, EVERY 12 HOURS, First dose on Alisha 11/30/11 at 2330, Until Discontinued sodium chloride 0.9% infusion New Bag 12/01/2011 4:22 AM EST 1,000 mLs 100 mL/hr 1,000 mL, at 100 mL/hr, Intravenous, CONTINUOUS, Starting on Alisha 11/30/11 at 1915, Until Sun12/01/11 at 0526 New Bag 11/30/2011 7:15 PM EST 1,000 mLs 100 mL/hr documented in this encounter Active and Recently Administered Medications Times are shown in EST. Scheduled Medication Order 11/29/2011 11/30/2011 12/01/2011 ceFAZolin (ANCEF) 1g in dextrose 5% 50mL (COMPLETED) 1330 (Due)1536 (Given - Provider: Frank Guthrie MD) 1 g = 1,000 mg, Intravenous, ONCE, 1 dos e, Alisha 11/30/11 at 1330, for 30 Minutes, Redose after 4 hours., Day of Surgery (Day of Procedure) ceFAZolin (ANCEF) 2g in dextrose 5% 100mL (COMPLETED) 1330 (Given by Other - Provider: Klaus Cm RN)1536 (Canceled Entry - Provider: Sydnee Huang MD) 2 g, Intravenous, ONCE, 1 dose, Alisha 11/30 at 1330, for 30 Minutes, Redose after 4 hours., Day of Surgery (Day of Procedure) heparin (porcine) subcutaneous injection 5,000 Units (CANCEL ED) 1179 (Given - Provider: Lindsay Hancock RN) 5,000 Units, Subcutaneous, EVERY 12 HOUR S SCHEDULED (2 times per day), First dose on Sun11/30/11 at 2330, Until Discontinued, Routine levothyroxine (SYNTHROID) tablet 125 mcg 0600 (Given - Provider: Lindsay Hancock RN) 125 mcg, Oral, EVERY MORNING, First dose on Sun12/01/11 at 0600, Until Discontinued, STAT metoprolol (LOPRESSOR) injection 5 mg (CANCELED) 1944 (Given - Provider: Klaus Cm RN)234 (Given - Provider: Lindsay Hancock RN - Comment: 137/76 HR 69) 0439 (Given - Provider: Lindsay Hancock RN - Comment: 115/68 HR 64) 5 mg, Intravenous, EVERY 4 HOURS, First dose on Sun11/30/11 at 1945, Until Discontinued, Hold HR < 60, sbp < 90, Routine montelukast (SINGULAIR) tablet 10 mg (CANCELED) 2341 (Given - Provider: Lindsay Hancock, SHAWNA) 10 mg, Oral, NIGHTLY, First dose on Sun11/30/11 at 2330, Until Discontinued, Routine sodium chloride 0.9 % flush 5 mL (CANCELED) 2330 (Given - Provider: Lindsay Hancock, SHAWNA) 1130 (Due) 5 mL, Intravenous, EVERY 12 HOURS, First dose on Sun11/30/11 at 2330, Until Discontinued, Routine Continuous Medication Order 11/29/2011 11/30/2011 12/01/2011 HYDROmorphone (DILAUDID) 1 mg/mL HOST/HOSTESS RESTAURANT 30 mL (CANCELED) 1914 (New Syringe/Cartridge - Provider: Vadim Gurrola RN) 0704 (Stopped - Provider: Lindsay Hancock, SHAWNA) Intravenous, HOST/HOSTESS RESTAURANT ONLY, Starting Alisha 11/30/11 at 1915, Until F ri 12/01/11 at 0526 lactated ringers infusion 1,000 mL (CANCELED) 1330 (New Bag - Provider: Yane Cervantes RN) 1,000 mL, at 100 mL/hr, Intravenous, CON TINUOUS, Starting Alisha 11/30/11 at 1330, Until Sun11/30/11 at 2255, Day of Surgery (Day of Procedure) sodium chloride 0.9% infusion (CANCELED) 191 (New Bag - Provider: Vadim Gurrola RN) 421 (New Bag - Provider: Lindsay baeza RN) 1,000 mL, at 100 mL/hr, Intravenous, CON TINUOUS, Starting Alisha 11/30/11 at 1915, Until Sun12/01/11 at 0526 PRN Medication Order 11/29/2011 11/30/2011 12/01/2011 acetaminophen (TYLENOL) tablet 650 mg 650 mg, Oral, EVERY 4 HOURS PRN, Startin g Alisha 11/30/11 at 2305, Until Sun12/01/11 at 1601, Pain, Maximum dose of acetaminophen is 4000 mg from all sources in 24 hours., Routine BUpivacaine-epiNEPHrine 0.25 %-1:200,000 injection (CANCELED ) 162 (Given - Provider: Frank Guthrie MD - Comment: 10ml given total at neck incision site) ONCE PRN, Starting Alisha 11/30/11 at 1627, Until Alisha 11/30/11 at 2255, Intra- Operative (Intra-Procedure), Routine HYDROmorphone (DILAUDID) tablet 2 mg 0703 (Given - Provider: Lindsay Hancock RN - Comment: HOST/HOSTESS RESTAURANT d/c) 2 mg, Oral, EVERY 4 HOURS PRN, Starting Sun12/01/11 at 0527, Until Sun12/01/11 at 1601, Pain, Routine HYDROmorphone (PF) (DILAUDID) 2 mg/mL injection 0.2-0.4 mg ( CANCELED) 1849 (Given - Provider: Vadim Gurrola RN)185 (Given - Provider: Vadim Gurrola RN) 0.2-0.4 mg, Intravenous, EVERY 5 MIN PRN , Starting Alisha 11/30/11 at 1842, Until Alisha 11/30/11 at 2211, Pain, For moderate pain give: 0.2 mg every 5 minute prn For severe pain give: 0.4 mg every 5 minutes pr n Maximum dose: 4 mg per hour Hold for r espiratory rate less than 10 per minute., PACU Recovery, Routine ondansetron (ZOFRAN) injection 4 mg (CANCELED) 0734 (Given - Provider: Gisell [place], RN) 4 mg, Intravenous, EVERY 8 HOURS PRN, St arting Alisha 11/30/11 at 2305, Until 12/01/11 at 1601, Nausea, Routine documented in this encounter Care Teams Acetone Recovery Worker Relationship Specialty Start Date End Date Arabella Rob MD PCP - General 10/04/10 04/10/17 [facility] GENERAL [place] [address] documented as of this encounter
--- OUTSIDE RECORDS SUMMARY | 2022-10-09 16:19 | XMS_ITS | Encounter Summary ---
:1940 Author Organization [facility] [place] [address] Care Team Providers Name Role Phone Giorgio Cardona MD Primary Care Provider Reason for Visit Reason Comments Follow-up rt knee pain /hoarsness from throid being removed Encounter Details Date Type Department Care Team Description 04/18/2012 Follow-Up Internal Medicine at Deandre Cardona MD Anxiety; [facility] Constipation; [facility] DR ALVAREZ (gastroesophageal reflux disease); [facility] INTERNAL Lung cancer; [place] [address] MEDICINE Osteoarthritis; [phone] [place], [place] [address] Pancreatic cyst; [phone] (Wo rk) Post-nasal drip; Prostate cancer Social History Tobacco Use Types Packs/Day Years Used Date Smoking Tobacco: Never Smokeless Tobacco: Never Alcohol Use Standard Drinks/Week Comments No 0 (1 standard drink = 0.6 oz pure alcoho l) Sex Assigned at Date Recorded Not on file documented as of this encounter Last Filed Vital Signs Vital Sign Reading Time Taken Comments Blood Pressure 126/69 04/18/2012 9:04 AM EDT Pulse 58 04/18/2012 9:04 AM EDT Temperature 36.5 ??C (97.7 ??F) 04/18/2012 9:04 AM EDT Respiratory Rate - - Oxygen Saturation - - Inhaled Oxygen Concentration - - Weight 68 kg (150 lb) 04/18/2012 9:04 AM EDT Height - - Body Mass Index 23.15 04/11/2012 4:26 PM EDT documented in this encounter Patient Instructions Patient InstructionsBaGiorgio luciano MD - 04/18/2012 9:[address] Quezada's office to set up an appointment for the surgery - once you have a date, let my office know so we can get you in for a pre-operative physical. Encourage you to visit ENT at the beginning of May. documented in this encounter Progress Notes Giorgio Cardona MD - 04/18/2012 9:32 AM EDT Established Patient Follow-up Visit History of Presenting Illness: Patient here to followup on acute and chronic medical issues Saw ENT - voice sounds a lot more hoarse. Switched from prilosec to nexium. Has been on this for about a week. He thinks this has gotten worse. appointment with ENT MD on 05/16. Still getting phlegm on this. Not closing properly. No malignancy. Saw Dr Quezada- can do surgery anytime. Once gets going will be all right. Quite a ways away. Pains a bit at night. Hurts to walk on it. Goes out sideways. Muscles are getting weaker. Wants to get thisdone. Now hurting in the hip. Continues to have some depression - ok when goes to work. Had tried SSRI but not given much time forit to work. Taking aleve once daily. Bowels OK. Takes stool softener at this time. Takes miralax which helps as well. Rarely takes Patient reported measures in the past 7 days Pain:8 Physical Health:Fair Mental Health:Poor Patient Active Problem List Diagnoses ??? Dysphagia, [...] features. 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 [id number]; KRAS negative, EGFR negative --09/2010: CT scan - normal --02/2011: CT scan --09/2011: CT scan - negative annual CT's afterwards Outpatient encounter prescriptions as of 04/18/2012 Medication Sig Dispense Refill ??? esomeprazole (NEXIUM) 40 mg capsule Take 1 capsule by mouth daily. 30 capsule 12 ??? levothyroxine (SYNTHROID) 125 mcg tablet Take 1 tablet by mouth every morning. 30 tablet 12 ??? traZODone (DESYREL) 50 mg tablet Take 0.5-1 tablets by mouth nightly as needed for Sleep. 30 tablet 5 ??? atenolol (TENORMIN) 50 mg tablet Take 0.5 tablets by mouth daily. 30 tablet 3 ??? polyethylene glycol (MIRALAX) 17 gram packet Take 17 g by mouth daily. ??? DOCUSATE SODIUM (COLACE ORAL) Take by mouth daily. ??? naproxen sodium (ALEVE) 220 mg tablet Take 220 mg by mouth 2 times daily. ??? furosemide (LASIX) 20 mg tablet 40 MG = 2 Tablet(s) PO Once daily and PRN swelling ??? terazosin (HYTRIN) 2 mg capsule 4 MG = 2 Capsule(s) PO QHS History Social History ??? Marital Status: Single [...] No narrative on file Review of Systems: 5 systems reviewed Objective Filed Vitals: 04/18/12 0904 BP: 126/69 Pulse: 58 Temp: 36.5 ??C (97.7 ??F) Weight: 68.04 kg (150 lb) Gen -no acute distress. Alert, responsive and comfortable Assessment/Plan: # Post Nasal drip # Anxiety # GERD # Vocal Cord Paralysis # Hypothyrodism s/p Thyroidectomy Suggested to keep appointment with Dr. Porras. Recent thyroid studies satisfactory. He does worry and discussed in detail. 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 # Prostate Cancer followup per Rad Onc # Osteoarthritis Wants surgery now. Will set up in May. # Hypertension We discussed blood pressure goals. Goal blood pressure should be <1 4 0/ 9 0mmHg. A low sodium diet, avoiding eating out, and reducing the amount of fatty foods eaten. We also discussed the principles of the DASH diet. # ? IPMN MRI of abdomen recently demonstrated stability I counselled the patient on the above [...] Next Appointment: PRN Total time: 25 Minutes, 15 Of the visit time was spent in [id number] counselling of the above issues documented in this encounter Plan of Treatment Upcoming Encounters Date Type Specialty Care Team Description 10/11/2022 Office Visit Dermatology Virgilio Mckeon MD [facility] DR CHRISTIANO HENSON-DERMAT [place], [place] [address] (Wo rk) 10/16/2022 Office Visit Otolaryngology Frank Buchanan MD [facility] OTOLARYNGOLOGY Sarah EPT. [place], [place] [address] (Leroy rk) 11/29/2022 Appointment Hematology and Oncology 11/29/2022 Office Visit Radiation Oncology Emerald Leyva APRN [facility] RADIATION ONCCESAR [place], [place] [address] (Wo rk) documented as of this encounter Visit Diagnoses Diagnosis Anxiety Anxiety state, unspecified Constipation Unspecified constipation GERD (gastroesophageal reflux disease) Esophageal reflux Lung cancer Malignant neoplasm of bronchus and lung, unspecified site Osteoarthritis Osteoarthrosis, unspecified whether gene ralized or localized, unspecified site Pancreatic cyst Cyst and pseudocyst of pancreas Post-nasal drip Postnasal drip Prostate cancer Malignant neoplasm of prostate documented in this encounter Care Teams Bakery Sales Clerk Relationship Specialty Start Date End Date Giorgio Cardona MD PCP - General 10/04/10 04/10/17 [facility] GENERAL INTERNAL MEDICINE [place] [id number] documented as of this encounter
--- OUTSIDE RECORDS SUMMARY | 2022-10-09 16:19 | XMS_ITS | Encounter Summary ---
:1940 Author Organization [place] [address] Care Team Providers Name Role Phone Giorgio Cardona MD Primary Care Provider Reason for Referral Consultation (Routine) - Closed Specialty Diagnoses / Procedures Referred By Contact Refer red To Contact Otolaryngology Diagnoses GERD (gastroesophageal reflux disease) Hypertension Multinodular goiter Osteoarthritis Post-nasal drip Prostate cancer Anxiety Giorgio Cardona MD [facility] [address] [place] [address] [facility] GENERAL INTERNAL [place], [place] [phone] [place] [address] Referral ID Status Reason Start Date Expiration Date Visits V isits Requested Authorized [id number] Closed Consult, 12/15/2011 06/12/2012 1 1 Test & Treat Reason for Visit Reason Comments Post Hospital Discharge Pain Discomfort in throat while e ating Encounter Details Date Type Department Care Team Description 12/15/2011 Office Visit Internal Medicine at Deandre Cardona MD GERD (gastroesophageal reflux disease); [facility] Hypertension; [facility] DR Multinodular goiter; [facility] INTERNAL Osteoarthritis; [place], [place] MEDICINE Post-nasal drip; [id number] [place] [address] Prostate cancer; [phone] Anxiety (Work) Social History Tobacco Use Types Packs/Day Years Used Date Smoking Tobacco: Never Smokeless Tobacco: Never Alcohol Use Standard Drinks/Week Comments No 0 (1 standard drink = 0.6 oz pure alcoho l) Sex Assigned at Date Recorded Not on file documented as of this encounter Last Filed Vital Signs Vital Sign Reading Time Taken Comments Blood Pressure 93/55 12/15/2011 10:44 AM EST Pulse 59 12/15/2011 10:44 AM EST Temperature 36.7 ??C (98 ??F) 12/15/2011 10:44 AM EST Respiratory Rate - - Oxygen Saturation - - Inhaled Oxygen Concentration - - Weight 66.9 kg (147 lb 8 oz) 12/15/2011 10:44 AM EST Height 170.2 cm (5' 7) 12/15/2011 10:44 AM EST Body Mass Index 23.1 12/15/2011 10:44 AM EST documented in this encounter Patient Instructions Patient InstructionsBaGiorgio luciano MD - 12/15/2011 11:46 AM EST Refer you to the ENT for this drip Start on citalopram 10mg once daily - take at night, for mood/anxiety prilosec - increase to 40mg at once though Atenolol - take 25mg once daily. Take thyroid medication 1st thing in the morning, on an empty stomach, and nothing for 30 minutes afterwards. documented in this encounter Progress Notes Giorgio Cardona MD - 12/15/2011 11:35 AM EST Established Patient Follow-up Visit History of Presenting Illness: HCK Voice is raspy. If gets a lot of rest and a lot of mucous. Wonders about his esophagus and wonders if has a hiatal hernia. When eats late at night, feels the food is in his check. Has given up coffee. Has been on omeprazole 20mg once daily. Still has mucous - this is still there. Still swallowing. On spray, singulair, Tickling in throat better. Thinks mucus is better. Not worse but thinks its better. No pain at area of incision. Slight tightness. Some stretching sensation. No difficulty eating food at this time. Able to swallow liquids. Not sore. Feels like its getting stuck in the chest. Taking synthroid with a banana. Still eager to get knee done. Teeth still a problem - likely had it chipped after anesthesia. A little lightheaded/dizzy. Has been working ~5 hrs/day. Has not passed out. Keeping fluid intake. Not as much as he should he notes. Reviewed pathology Patient reported measures in the past 7 days Pain:6 (knee pain) Physical Health:Fair Mental Health:Poor Patient Active Problem List Diagnoses ??? Anxiety ??? Retrosternal goiter ??? [...] features. 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 [id number]; KRAS negative, EGFR negative --09/2010: CT scan - normal --02/2011: CT scan --09/2011: CT scan - negative annual CT's afterwards Current outpatient prescriptions:atenolol (TENORMIN) 50 mg tablet, Take 0.5 tablets by mouth daily.,Disp: 30 tablet, Rfl: 3; Omeprazole 20 mg TbEC, Take 40 mg by mouth daily., Disp: 90 mg, Rfl: 3; citalopram (CELEXA) 10 mg tablet, Take 1 tablet by mouth daily., Disp: 60 tablet, Rfl: 3; polyethylene glycol (MIRALAX) 17 gram/dose powder, , Disp: , Rfl: ; polyethylene glycol (MIRALAX) 17 gram packet, Take 17 g by mouth daily., Disp: , Rfl: acetaminophen (TYLENOL) 325 mg tablet, Take 2 tablets by mouth every 4 hours as needed for Pain., Disp: 30 tablet, Rfl: ; levothyroxine (SYNTHROID) 125 mcg tablet, Take 1 tablet by mouth every morning., Disp: 30 tablet, Rfl: 12; Mometasone (NASONEX) 50 mcg/Actuation Venturia, by Nasal route 2 times daily.One spray each nostril each nostril., Disp: 17 g, Rfl: 12 montelukast (SINGULAIR) 10 mg tablet, Take 1 tablet by mouth nightly., Disp: 30 tablet, Rfl: 12; DOCUSATE SODIUM (COLACE ORAL), Take by mouth daily., Disp: , Rfl: ; naproxen sodium (ALEVE) 220 mg tablet, Take [...] ( ) fevers ( ) chills, sweats (x ) fatigue Cardiovascular - ( )chest pain ( )palpitations Respiratory - ( )SOB, NIEVES ( )cough, sputum ( )wheezing HEENT - ( x) diffculty swallowing ( ) nasal congestion, postnasal drip Psychiatric - ( ) sadness, depression ( ) anxiety, panic ( ) memory loss ( ) insomnia Neurological - ( ) numbness, tingling, loss of sensation ( ) weakness or function of limbs ( ) headaches Gastrointestinal - ( ) abdominal pain (x ) nausea, GERD ( ) constipation, diarrhea ( ) blood in stool Genitourinary - ( ) abnormal discharge ( ) lumps, masses or nodules ( ) nocturia, dysuria, polyuria Heme/Lymph - ( ) lymph node swelling Musculoskeletal - ( ) pain at rest or with movement Objective Filed Vitals: 12/15/11 1044 BP: 93/55 Pulse: 59 Temp: 36.7 ??C (98 ??F) TempSrc: Oral Height: 170.2 cm (5' 7) Weight: 66.906 kg (147 lb 8 oz) Gen -no acute distress. Alert, responsive and comfortable HEENT - oropharynx moist without lesions. Nice healing scar Neck - Full range of motion, no bruits, no lymphadenopathy or thyromegaly. No increase in JVD. Lungs - No wheezes, no crackles. scar Chest/Back - No spinal tenderness. No visible deformities or scoliosis appreciated. Heart - midline sterntomy RRR, S1,S2, + murmur, gallop or rub Abdomen - Soft, nontender, no hepatosplenomegaly, masses or distention, normal active bowel sounds Extremities - No edema Skin - No rashes, lesions, plaques, nodules Neurological - grossly normal Gait: grossly intact with normal stride length, speed, and arm swing Data Review: Reviewed lab studies: ( ) No (x) Yes Reviewed radiology studies: ( ) No (x) Yes Reviewed other studies: ( ) No (x) Yes - Discussion of test results with performing physician: ( ) Yes Previous communications with patient discussed and confirmed ( ) Yes ( ) n/a Collateral History taken: ( ) No ( ) Yes - from: Requested old records: ( ) Yes I reviewed/summarized the patient's old medical records in EPIC : ( ) No (x) Yes Discussion with other health care provider: ( ) No ( ) Yes Independently viewed Assessment/Plan: # Post Nasal drip No change in symptoms. Suggest ENT referral # Anxiety Suggest SSRI. His mind races and I think he would benefit from one. We discussed. Try citalopram 10mg once daily. With medication sensitivity, suggest holding on this dose for now. 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 Guthrie know of hoarseness. Explained correct manner in taking synthroid. # Edema Has cut down to half tablet on lasix # Lung [place] followup previously arranged # GERD Suggest increasing to 40mg of prilosec. R/V with AP in 1 month and if no better consider barium swallow. # Prostate Cancer followup per Rad Onc # Osteoarthritis Hold off on surgery for now. # Hypertension Reduce atenolol to half dosing due to relative bradycardia and hypotension. I counselled the patient on the above [...] my nurses, letter, or myDH. Next Appointment: 1 month AP, 2 months Batsis Total time: 40 Minutes, 25 Of the visit time was spent in [id number] counselling of the above issues Orders placed in this Encounter: Orders Placed This Encounter Procedure ??? Referral to ent Referral Priority: Routine Referral Type: Consultation Referral Reason: Consult, Test & Treat Requested Specialty: Otolaryngology Number of Visits Requested: 1 Laboratory Studies No results found for this or any previous visit (from the past 72 hour(s)). documented in this encounter Plan of Treatment Upcoming Encounters Date Type Specialty Care Team Description 10/11/2022 Office Visit Dermatology Virgilio Mckeon MD [facility] DR CHRISTIANO HENSON-DERMAT OLOGY [place], [place] [address] (Wo rk) 10/16/2022 Office Visit Otolaryngology Frank Buchanan MD [facility] OTOLARYNGOLOGY D EPT. [place], [place] [address] (Wo rk) 11/29/2022 Appointment Hematology and Oncology 11/29/2022 Office Visit Radiation Oncology Emerald Leyva APRN [facility] RADIATION ONCOLO GY [place], [place] [address] (Wo rk) Scheduled Referrals Name Type Priority Associated Diagnoses Order S chedule REFERRAL TO ENT Outpatient Referral Routine GERD Order ed: 12/15/2011 (gastroesophageal reflux disease) Hypertension Multinodular goi ter Osteoarthritis Post-nasal drip Prostate cancer Anxiety documented as of this encounter Visit Diagnoses Diagnosis GERD (gastroesophageal reflux disease) Esophageal reflux Hypertension Unspecified essential hypertension Multinodular goiter Nontoxic multinodular goiter Osteoarthritis Osteoarthrosis, unspecified whether gene ralized or localized, unspecified site Post-nasal drip Postnasal drip Prostate cancer Malignant neoplasm of prostate Anxiety Anxiety state, unspecified documented in this encounter Care Teams Child Care Center Administrator Relationship Specialty Start Date End Date Giorgio Cardona MD PCP - General 10/04/10 04/10/17 [facility] GENERAL [place] [address] documented as of this encounter
--- OUTSIDE RECORDS SUMMARY | 2022-10-09 16:19 | XMS_ITS | Encounter Summary ---
:1940 Author Organization [facility] [place] [address] Care Team Providers Name Role Phone Giorgio Cardona MD Primary Care Provider Encounter Details Date Type Department Care Team Description 01/22/2012 Hospital Encounter XRay at [facility] Dysphagia [address] [place] [address] Giorgio Crowell MD [facility] GENERAL [place] [address] [place] [address] Social History Tobacco Use Types Packs/Day [...] route 2 17 g 12 201002/15/2012 mcg/Actuation [place] times daily. One spray each nostril each [...] [facility] CHRISTIANO HENSON-DERMAT OLOGY [place], [place] [address] (Wo rk) 10/16/2022 Office Visit Otolaryngology Frank Buchanan MD [facility] OTOLARYNGOLOGY Sarah EPT. [place], [place] [address] (Wo rk) 11/29/2022 Appointment Hematology and Oncology 11/29/2022 Office Visit Radiation Oncology Emerald Leyva APRN [facility] RADIATION ONCOLO GY [place], [place] [address] (Wo rk) documented as of this encounter Procedures Procedure Name Priority Date/Time Associated Diagnosis Comme nts XR FLUORO BARIUM Routine 01/22/2012 8:45 AM Dysphagia Resul ts for this SWALLOW EDT procedure are i n (MODIFIED/VIDEO the results SWALLOW PHARYNX) section. documented in this encounter Results XR Fluoro modified Barium swallow (01/22/2012 8:45 AM EDT) Anatomical Region Laterality Modality N/A Radiographic Imaging Specimen (Source) Anatomical Collection Method Collection Time Re ceived Time Location / / Volume Laterality 01/22/2012 8:45 AM EDT Narrative 01/22/2012 11:41 AM EDT MODIFIED SWALLOW, 01/22/12: HISTORY: ??Status post thyroidectomy. ?? Known left vocal cord paralysis, GERD, and sensation of something being stuck. FLUORO TIME: ??1 minute, 35 seconds. ?? FINDINGS: ??Modified swallow was perform ed with speech pathology. ??The patient had no problems with thin liquids. Swall ows were prompt and hyoid motion was normal. ??There is a small amount of res idue with pudding, which cleared with liquids. ??The patient had no problems w ith the cookie. ??There is no evidence of aspiration or penetration. ??The esophag us did not empty. ??There was persistent material above the aortic arch. ??Consid er a regular barium swallow. The pill appeared to pass with no difficulty. Procedure Note Maday Sands MD - 01/22/2012Form atting of this note might be different from the original. MODIFIED SWALLOW, 01/22/12: HISTORY: Status post thyroidectomy. Know n left vocal cord paralysis, GERD, and sensation of something being stuck. FLUORO TIME: 1 minute, 35 seconds. FINDINGS: Modified swallow was performed with speech pathology. The patient had no problems with thin liquids. Swall ows were prompt and hyoid motion was normal. There is a small amount of resid ue with pudding, which cleared with liquids. The patient had no problems wit h the cookie. There is no evidence of aspiration or penetration. The esophagus did not empty. There was persistent material above the aortic arch. Consider a regular barium swallow. The pill appeared to pass with no difficulty. Giorgio Cardona MD IMG FLUORO ORDERABLES documented in this encounter Visit Diagnoses Diagnosis Dysphagia Dysphagia, unspecified documented in this encounter Administered Medications Inactive Administered Medications - up to 3 most recent administrations Medication Order MAR Action Action Date Dose Rate Site Barium Sulfate 40 % (w/v) Powd 33 Given 01/22/2012 9:15 AM EDT 3 3 mLs mL 33 mL, Oral, ONCE, 1 dose, On Sun01/22/12 at 0915, Routine Barium Sulfate 40 % (w/v), 30% (w/w) Pste 15 Given 10/2012 9:15 AM EDT 15 mLs mL 15 mL, Oral, ONCE, 1 dose, On Sun01/22/12 at 0915, Routine documented in this encounter Care Teams Ship Joiner Relationship Specialty Start Date End Date Giorgio Cardona MD PCP - General 10/04/10 04/10/17 [facility] GENERAL [place] [address] documented as of this encounter
--- OUTSIDE RECORDS SUMMARY | 2022-10-09 16:19 | XMS_ITS | Encounter Summary ---
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 [place], [place] [address] (Wo rk) 11/29/2022 Appointment Hematology and Oncology 11/29/2022 Office Visit Radiation Oncology Emerald Leyva, [facility] RADIATION ONCCESAR RACHAEL [place], [place] [address] (Wo rk) documented as of this encounter Results (ABNORMAL) Comprehensive metabolic panel (non-fasting) (03/14/2012 8:13 AM EDT) P athologist Signature Glucose Lvl 81 60 - 199 CERNER mg/dL MILLENNIUM Comment: Diabetes: >=200 mg/dL plus symp toms BUN 21 (H) 10 - 20 mg/dL CERNER MILLENNIU M Creatinine 1.00 0.80 - 1.50 mg/dL CERNER MILL ENNIUM Sodium 139 135 - 145 mmol/L CERNER PATRICK NIUM Potassium 4.5 3.5 - 5.0 mmol/L CERNER PATRICK NIUM [...] - 15 mmol/L CERNER MILLENNIU M Calcium 8.5 8.5 - 10.5 mg/dL CERNER PATRICK NIUM Total Protein 6.7 6.4 - 8.3 gm/dL CERNER MIL LENNIUM Albumin 4.1 3.2 - 5.2 gm/dL CERNER MILLENN IUM AST 23 0 - 39 unit/L CERNER MILLENNIU M ALT 14 0 - 55 unit/L CERNER MILLENNIU M Alk Phos 67 40 - 120 unit/L CERNER MILLENN IUM Total Bilirubin 0.3 0.2 - 1.3 mg/dL CERNER M ILLENNIUM [...] Location / / Volume Laterality Blood specimen 03/14/2012 8:13 AM 012 8:18 (specimen) EDT AM EDT Resulting Agency Comment Spec In Lab Giorgio Cardona MD CHEMISTRY ORDERABLES Performing Organization Address City/State/[place] [address] 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
--- OUTSIDE RECORDS SUMMARY | 2022-10-09 16:19 | XMS_ITS | Encounter Summary ---
:1940 Author Organization [place] [address] Care Team Providers Name Role Phone Arabella Rob MD Primary Care Provider Reason for Visit Reason Comments Follow Up Surgery Encounter Details Date Type Department Care Team Description 01/08/2012 Office Visit General Surgery at Andi Guthrie S/P thyroidectomy [facility] [place] MD Christofer (Primary Dx) [facility] DIEGO Kim GENERAL SURGERY [address] [place] [address] [phone] Social History Tobacco Use Types Packs/Day Years Used Date Smoking Tobacco: Never Smokeless Tobacco: Never Alcohol Use Standard Drinks/Week Comments No 0 (1 standard drink = 0.6 oz pure alcoho l) Sex Assigned at Date Recorded Not on file documented as of this encounter Last Filed Vital Signs Vital Sign Reading Time Taken Comments Blood Pressure 114/63 01/08/2012 11:00 AM EST Pulse 64 01/08/2012 11:00 AM EST Temperature - - Respiratory Rate 18 01/08/2012 11:00 AM EST Oxygen Saturation 97% 01/08/2012 11:00 AM EST Inhaled Oxygen Concentration - - Weight 68.6 kg (151 lb 3.8 oz) 01/08/2012 11:00 AM EST Height 170.2 cm (5' 7) 01/08/2012 11:00 AM EST Body Mass Index 23.69 01/08/2012 11:00 AM EST documented in this encounter Progress Notes Andi Guthrie MD - 01/08/2012 11:14 AM EST Reason for Visit: Alfredito Mina returns. History of Present Illness: He is S/P a total thyroidectomy performed on 11/30/11 for what turned out to be a markedly enlarged and fibrotic substernal MNG. He had a left recurrent nerve avulsion injury, and his voice is hoarse, but he is having no dyspneaor SOB. He is not having any dysphagia. He has no symptoms of increased or decreased T4 and is otherwise feeling well. T4/TSH today: pending PMH: Allergies as of 01/08/2012 - Review Complete 01/08/2012 Allergen Reaction Noted ??? Lactose Other (See Comments) 06/01/2011 PE: Neck: Wound is healing well with some residual postoperative swelling. Imp: Good postoperative course. Euthyroid. Plan: I have advised him that he should continue to see Dr. ARABELLA ROB MD, MD and have his TFT's checked on an annual basis. Return to clinic prn. Send copy to Dr. ARABELLA ROB MD, MD. documented in this encounter Plan of Treatment Upcoming Encounters Date Type Specialty Care Team Description 10/11/2022 Office Visit Dermatology Virgilio Mckeon MD [facility] DR CHRISTIANO HENSON-DERMAT OLOGY [place], [place] [address] (Leroy bhatia) 10/16/2022 Office Visit Otolaryngology Frank Buchanan MD [facility] OTOLARYNGOLOGY Sarah EPT. [place], [place] [address] (Leroy bhatia) 11/29/2022 Appointment Hematology and Oncology 11/29/2022 Office Visit Radiation Oncology Emerald Leyva APRN [facility] RADIATION ONCCESAR GY [place], [place] [address] (Leroy bhatia) documented as of this encounter Procedures Procedure Name Priority Date/Time Associated Diagnosis Comme nts TSH Routine 01/08/2012 10:15 AM S/P thyroidectomy Res ults for this EST procedure are i n the results section . T4 TOTAL Routine 01/08/2012 10:15 AM S/P thyroidectomy Res ults for this EST procedure are i n the results section . documented in this encounter Results T4 (01/08/2012 10:15 AM EST) athologist Signature T4, total 7.9 5.1 - 10.8 CERNER mcg/dL MILLENNIUM Comment: Reference Range: [place] Cord Blood: ??6.9-14.4 mcg/dL Females: ??7.2-14.2 mcg/dL Pediatric ranges: ??Interpret with cauti on-ranges have not been verified Specimen Anatomical Collection Method Collection Time Receive d Time (Source) Location / / Volume Laterality Blood specimen 01/08/2012 10:15 2 (specimen) AM EST 10:22 AM EST Resulting Agency Comment Spec In Lab Andi Guthrie MD CHEMISTRY ORDERABLES Performing Organization Address City/State/[place] [address] CERNER MILLENNIUM TSH (01/08/2012 [...] Organization Address City/State/[place] [address] CERNER MILLENNIUM documented in this encounter Visit Diagnoses Diagnosis S/P thyroidectomy - Primary Other postprocedural status documented in this encounter Care Teams Mold Forms Builder Relationship Specialty Start Date End Date Arabella Rob MD PCP - General 10/04/10 04/10/17 [facility] GENER[place] [address] (work) documented as of this encounter
--- OUTSIDE RECORDS SUMMARY | 2022-10-09 16:19 | XMS_ITS | Encounter Summary ---
:1940 Author Organization [facility] [place] [address] Care Team Providers Name Role Phone Giorgio Cardona MD Primary Care Provider Reason for Visit Reason Comments Right Knee Pain Encounter Details Date Type Department Care Team Description 04/11/2012 Office Visit Orthopaedics at [facility] Alessio Quezada ([facility] MD Lexy joint disease) of [facility] (Primary Dx) [place] [address] CENTER [phone] ORTHOPAEDIC SURGERY [place], [place] [address] Social History Tobacco Use Types Packs/Day Years Used Date Smoking Tobacco: Never Smokeless Tobacco: Never Alcohol Use Standard Drinks/Week Comments No 0 (1 standard drink = 0.6 oz pure alcoho l) Sex Assigned at Date Recorded Not on file documented as of this encounter Last Filed Vital Signs Vital Sign Reading Time Taken Comments Blood Pressure 130/60 04/11/2012 4:26 PM EDT Pulse 56 04/11/2012 4:26 PM EDT Temperature - - Respiratory Rate - - Oxygen Saturation - - Inhaled Oxygen Concentration - - Weight 68.9 kg (152 lb) 04/11/2012 4:26 PM EDT Height 171.5 cm (5' 7.5) 04/11/2012 4:26 PM EDT Body Mass Index 23.46 04/11/2012 4:26 PM EDT documented in this encounter Progress Notes Alessio Quezada - 04/11/2012 5:16 PM EDT I have known Mr. Mina for several years. His right knee sounds like it is finally at the point where he wants something done, injection at the most recent of which was only four to six weeks ago, did not provide him with any relief. He is on naproxen sodium, but only intermittently. Medically, he is actually doing well. 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 On his physical exam, he rises without his arms, but he has a real antalgic gait with varus on the right knee. He comes to within a few degrees of full extension, flexes about a 110 degrees, but he certainly has a varus deformity with laxity immediately with valgus stress, but he appears to be stable in the sagittal plane. The patella seems to track well. He did not get new films. In fact, his films are a year old, but he was [id number] at that time on the right, moderate arthritis on the contralateral knee. I have explained again what we could do for him, but he is at the point now that the thyroid gland has been managed and his knee pain is not being ameliorated with injections or antiinflammatory medication. He would like to proceed with joint replacement, which I think is perfectly appropriate. I did up his naproxen sodium to 440 mg twice a day, hopefully that will help. I have offered him a mild analgesic, which he declined, and I would still inject him in about six weeks if he wanted to put the knee off, but I think he is probably going to proceed with the surgery some time this summer, and we will see him when he has his preoperative evaluation. Other than his treatment for hypothyroidism and some mild hypertension and GERD, he does not have any major medical problems that would require further evaluation, particularly in light of his recent surgery that he tolerated quite nicely. I will see him in the near future as part of his preadmission testing. CC: Giorgio Cardona MD documented in this encounter Plan of Treatment Upcoming Encounters Date Type Specialty Care Team Description 10/11/2022 Office Visit Dermatology Virgilio Mckeon MD [facility] ER DR CHRISTIANO HENSON-DERMAT OLOGY [place], [place] [address] (Wo rk) 10/16/2022 Office Visit Otolaryngology Frank Buchanan MD [facility] OTOLARYNGOLOGY Sarah EPT. 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
--- OUTSIDE RECORDS SUMMARY | 2022-10-09 16:19 | XMS_ITS | Encounter Summary ---
:1940 Author Organization [facility] [place] [address] Care Team Providers Name Role Phone Giorgio Cardona MD Primary Care Provider Encounter Details Date Type Department Care Team Description 01/29/2012 Hospital Encounter Gastroenterology at [facility] [place] [facility], [facility] [place] [address] [facility] [phone] CENTER GASTROENTEROLOGY [place], [place] [address] Social History Tobacco Use Types [...] occurs, please contact your MD/ Please call [phone] before 5pm with problems, questions or concerns. After 5pm call [phone] and ask to speak with the terrazzo polisher engineering document control clerk. Discharge instructions reviewed with patient who expresses understanding. Patient InstructionsGarnt Son MD - 01/29/2012 12:53 PM EDT Please see Recommendations in the Provation procedure report which is documented in the procedural note in E-DH. AttachmentsThe following attachments cannot be sent through Care Everywhere. UPPER GI ENDOSCOPY: WHAT TO EXPECT AT HOME (CZECH)documented in this encounter Medications at Time of [...] route 2 17 g 12 201002/15/2012 mcg/Actuation [place] times daily. One spray each nostril each [...] [facility] DR CHRISTIANO HENSON-DERMAT [place], [place] [address] (Wo rk) 10/16/2022 Office Visit Otolaryngology Frank Buchanan MD [facility] OTOLARYNGOLOGY Sarah EPT. [place], [place] [address] (Wo rk) 11/29/2022 Appointment Hematology and Oncology 11/29/2022 Office Visit Radiation Oncology Emerald Leyva APRN [facility] ER DR RYNE NELSON RACHAEL [facility] [place], [place] [address] (Wo rk) documented as of this [...] Component Value Ref Test Analysis Performed At [facility] gist Range Method Time Signature Surgical CERNER Pathology ? [facility] Report ? Provider: ?? [place] SON ?Pt. Name: ?? KATLIN MINA ? Acc #: ?[id number] ?Pt. MRN: ?[id number] ? Col Date: ?? 2 ? /Sex: [...] Organization Address City/State/[place] [address] CERNER MILLENNIUM Specimen to [...] MD PATHOLOGY/CYTOLOGY ORDERABLE S Performing Organization Address City/[facility]/ZIP Code Phon e Number [address] CERNER MILLENNIUM Specimen to [...] MD PATHOLOGY/CYTOLOGY ORDERABLE S Performing Organization Address City/[facility]/[place] [address] CERNER MILLENNIUM UPPER GI ENDOSCOPY (01/29/2012 12:44 PM EDT) [facility] Method Time Signature UPPER GI [facility] PROVATION ENDOSCOPY Endoscopy Patient Name: Katlin Trannolds ? Procedure Date: 01/29/2012 12:44 PM ? Date of : 1940 ? Age: 71 ? Order #: [id number] ? Procedure: ? Upper GI endoscopy Indications: ? Heartburn, Dysphagia Providers: ? [place] Son MD, Lindy Javier ? Catrachita, RN, Clark Gross MD: ?Giorgio Cardona MD Medicines: ? Midazolam [...] reactions. The ? Endoscope was introduced thro h the ? mouth, and advanced to the [...] MAR Action Action Date Dose Rate Site lactated ringers infusion New Bag 01/29/2012 12:23 PM 100 mL/hr 100 mL/hr 100 mL/hr, Intravenous, EDT CONTINUOUS, Starting on 01/29/12 at 1230, Until Sun01/29/12 at 1720, Endoscopy (Day of Procedure) documented in this encounter Active and Recently Administered Medications Times are shown in EDT. Continuous Medication Order 01/27/2012 01/28/2012 01/29/2012 lactated ringers infusion (CANCELED) 1223 (New Bag - Provider: Ramo Neville RN) 100 mL/hr, at 100 mL/hr, Intravenous, CO NTINUOUS, Starting 01/29/12 at 1230, Until Sun01/29/12 at 1720, Endo (Day of Procedure) PRN Medication Order 01/27/2012 01/28/2012 01/29/2012 fentaNYL 50mcg/mL injection (CANCELED) 1306 (Given - Provider: Lindy Domínguez RN)1308 (Given - Provider: Lindy Domínguez RN)1311 (Given - Provider: Lindy Domínguez RN) ONCE PRN, Starting 01/29/12 at 1306, Until 01/29/12 at 1720, Pain, Intra- Operative (Intra-Procedure), Routine midazolam (VERSED) injection (CANCELED) 1306 (Given - Provider: Lindy Domínguez RN)1308 (Given - Provider: Lindy E Catrachita, RN)1311 (Given - Provider: Lindy Domínguez, RN)1315 (Given - Provider: Lindy Domínguez, RN) ONCE PRN, Starting Sun01/29/12 at 1306, Until Sun01/29/12 at 1720, Sleep, Intra- Operative (Intra-Procedure), Routine documented in this encounter Care Teams Flower Picker Relationship Specialty Start Date End Date Giorgio Cardona MD PCP - General 10/04/10 04/10/17 [facility] GENERAL [place] [address] documented as of this encounter
--- OUTSIDE RECORDS SUMMARY | 2022-10-09 16:19 | XMS_ITS | Encounter Summary ---
:1940 Author Organization [facility] [place] [address] Care Team Providers Name Role Phone Giorgio Cardona MD Primary Care Provider Reason for Referral Speech Therapy (Routine) - Closed Specialty Diagnoses / Procedures Referred By Contact Refer red To Contact Speech Pathology / Diagnoses Dysphagia Judy Melendrez APRN [facility] Optical Mechanic Apprentice Rehab Speech Therapy [address] [place] [address] [place] [address] Phone: Fax: Referral ID Status Reason Start Date Expiration Date Visits V isits Requested Authorized [id number] Closed Evaluate and 01/08/2012 07/06/2012 1 1 Treat Reason for Visit Reason Comments Follow-up Encounter Details Date Type Department Care Team Description 01/08/2012 Follow-Up Internal Medicine at Judy Melendrez APRN Dysphagia; [facility] [address] [facility] Chronic hoarseness; [place], [place] [address] GERD (gastroesophageal reflux disease); Drive Insomnia; [place] [address] Need for vaccination for Str ep pneumoniae [phone] Social History Tobacco Use Types Packs/Day Years Used Date Smoking Tobacco: Never Smokeless Tobacco: Never Alcohol Use Standard Drinks/Week Comments No 0 (1 standard drink = 0.6 oz pure alcoho l) Sex Assigned at Date Recorded Not on file documented as of this encounter Last Filed Vital Signs Vital Sign Reading Time Taken Comments Blood Pressure 110/61 01/08/2012 2:20 PM EST Pulse 60 01/08/2012 2:20 PM EST Temperature - - Respiratory Rate - - Oxygen Saturation - - Inhaled Oxygen Concentration - - Weight 68 kg (150 lb) 01/08/2012 2:20 PM EST Height 170.2 cm (5' 7) 01/08/2012 2:20 PM EST Body Mass Index 23.49 01/08/2012 2:20 PM EST documented in this encounter Patient Instructions Patient InstructionsJudy Melendrez APRN - 01/08/2012 3:12 PM EST Sleep: Try trazodone 50mg tab, 25-50mg nightly as needed for sleep Swallow Eval Continue prilosec 20mg twice a day. Would be ok to try the Zantac 150mg twice a day for the GERD Knee pain Will arrange appt with ortho documented in this encounter Progress Notes Judy Melendrez APRN - 01/08/2012 2:53 PM EST Subjective: Patient ID: Alfredito Mina is a 71 y.o. male. HPI Here for 1 mo f/u. Has a few issues. 1. GERD: On prilosec 20mg BID. Helping some. Seen ENT and they suggested adding Zantac 150mg BID if needed. Not trouble swallowing but does feel sensation of something stuck. 2. Allergic rhinitis: Started on flonase by ENT. 3. Hoarse voice: May be temporary. R/t to thyroidectomy. Dr. Guthrie is aware. 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 4. Mood: Anxious, worse at night. On citalopram 10mg daily. Only sleeping 3 hrs a night. Mind racing. 5. HTN: Lasix was cut in half (on 20mg daily) and atenolol also cut in half and taking QOD and now is back to 50mg daily as on QOD sBP in the 130s. BP and HR today is good. 6. Knee pain: Hx steroid shot in the past. Alessia Giles Marker. Patient Active Problem List Diagnoses Code ??? [...] ??? Anxiety 300.00E ??? S/P thyroidectomy V45.89FE Allergies Allergen Reactions ??? Lactose Other (See Comments) Sneezing Current outpatient prescriptions ordered prior to encounter Medication Sig Dispense Refill ??? fluticasone (FLONASE) 50 mcg/Actuation nasal spray [...] tablet 12 ??? Mometasone (NASONEX) 50 mcg/Actuation [place] by Nasal route 2 times daily. One spray each nostril each nostril. 17 g 12 ??? montelukast (SINGULAIR) 10 mg tablet Take 1 tablet by mouth nightly. 30 tablet 12 ??? DOCUSATE SODIUM (COLACE ORAL) Take by mouth daily. ??? naproxen sodium (ALEVE) 220 mg tablet Take 220 mg by mouth 2 times daily. ??? terazosin (HYTRIN) 2 mg capsule 4 MG = 2 Capsule(s) PO QHS ??? polyethylene glycol (MIRALAX) 17 gram/dose powder ??? furosemide (LASIX) 20 mg tablet 40 MG = 2 Tablet(s) PO Once daily and PRN swelling Review of Systems See PROFILE SHAPER OPERATOR student Dionte ROS. Agree w/ stated ROS Objective: Physical Exam BP 110/61 Pulse 60 Ht 170.2 cm (5' 7) Wt 68.04 kg (150 lb) BMI 23.49 kg/m2 See PROFILE SHAPER OPERATOR student Dionte PE note. Agree w/ stated PE. Assessment and Plan: 1. Mood / Insomnia: COnt citalopram 10mg daily Try trazodone 50mg tab, 25-50mg nightly as needed for sleep 2. Dysphagia / GERD: Given symptoms will arrange Swallow Eval, Modified Barium. Continue prilosec 20mg twice a day. Would be ok to try the Zantac 150mg twice a day for the GERD 3. OA / Knee pain Will arrange appt with ortho again per pt request for injection, Seen Alessia Glies Marker last 09/18. 4. HTN / edema: Under good control. Cont lasix 20mg daily and atenolol full 50mg tab daily. 5. Pneumovax given today RTC in place ~1mo w/ Brendan Ayla Rapp - 01/08/2012 2:30 PM EST Pt presents for follow-up for the following issues: Anxiety-Pt states that it relaxes him, but still have trouble sleeping at night. Mind racing at night/worrying about life stressors/finances. During the day--no anxiety. Sleeping 3 hours/night Edema/HTN: Currently taking 20mg of lasix (1/2 a 40mg tab)--swelling has improved. Not checking pressures at home, but tried to take atenalol every other day, but noticed that SBP went to 130s at clinic visits so he returned to the 50mg/day. GERD: Increased omeprazole dose, but still feels like food doesn't settle well. Has not tried Zantacyet, but planning to pick that up today. No trouble swallowing but sometimes feels like food is coming back up or that something is sticking in throat. Post nasal gtt--Helping some; also using saline nasal spray. No congestion, no sinus pressure, pain,or ear ache. Would like shot to knees for pain--previously received shot in ortho--would like to return there. Patient Active Problem List Diagnoses Code ??? [...] ??? Anxiety 300.00E ??? S/P thyroidectomy V45.89FE Current outpatient prescriptions ordered prior to encounter Medication Sig Dispense Refill ??? fluticasone (FLONASE) 50 mcg/Actuation nasal spray [...] tablet 12 ??? Mometasone (NASONEX) 50 mcg/Actuation [place] by Nasal route 2 times daily. One spray each nostril each nostril. 17 g 12 ??? montelukast (SINGULAIR) 10 mg tablet Take 1 tablet by mouth nightly. 30 tablet 12 ??? DOCUSATE SODIUM (COLACE ORAL) Take by mouth daily. ??? naproxen sodium (ALEVE) 220 mg tablet Take 220 mg by mouth 2 times daily. ??? terazosin (HYTRIN) 2 mg capsule 4 MG = 2 Capsule(s) PO QHS ??? polyethylene glycol (MIRALAX) 17 gram/dose powder ??? furosemide (LASIX) 20 mg tablet 40 MG = 2 Tablet(s) PO Once daily and PRN swelling Allergies Allergen Reactions ??? Lactose Other (See Comments) Sneezing ROS General: Generally feeling well. Afebrile. No changes in weight or appetite. Cardiac: No chest pain, palpitations Resp: No shortness of breath Gi/: Denies pain; Constipation--resolved with laxatives. Denies diarrhea, frequency, urgency, dysuria. MSK: Pain in knees keeps patient from walking PE: Constitutional: Well-appearing adult male HEENT: Ear canals clear; TM clear. Oropharynx clear; mucosa intact. No sinus tenderness. Resp: LSCTA Cardiac: HRR; Split S2; no m/r/g MSK: AROM in all extremities. Chronic knee pain. Call to [facility] regarding immunization status--their records show the following: Pneumovax 07/2003 Influenza 07/28/2011 Assessment/Plan: Sleep/Anxiety: Anxiety symptoms only at night. Would like to try something to help specifically withsleep. Start trazadone 50mg 0.5-1mg tab at night for sleep. GERD/?swallowing: Patient will start zantac 150mg daily. Also referral for modified barium swallow. Chronic knee pain: Schedule knee injection with orth. Pneumovax in clinic today. documented in this encounter Plan of Treatment Upcoming Encounters Date Type Specialty Care Team Description 10/11/2022 Office Visit Dermatology Virgilio Mckeon MD [facility] CHRISTIANO MARRUFO-DERMAT [facility] [place], [place] [address] (Wo rk) 10/16/2022 Office Visit Otolaryngology Frank Buchanan MD [facility] OT[facility] Sarah EPT. [place], [place] [address] (Wo rk) 11/29/2022 Appointment Hematology and Oncology 11/29/2022 Office Visit Radiation Oncology Emerald Leyva, TACKING MACHINE OPERATOR [facility] RADIATION ONCOLO GY [place], [place] [address] (Wo rk) Scheduled Referrals Name Type Priority Associated Diagnoses Order S chedule REFERRAL TO SPEECH Outpatient Referral Routine Dysphagia Or dered: THERAPY 01/08/2012 documented as of this encounter Results XR Fluoro modified Barium [...] encounter Visit Diagnoses Diagnosis Dysphagia Dysphagia, unspecified Chronic hoarseness Dysphonia GERD (gastroesophageal reflux disease) Esophageal reflux Insomnia Insomnia, unspecified Need for vaccination for Strep pneumonia e Need for prophylactic vaccination agains t streptococcus pneumoniae (pneumococcus) Dysphagia Dysphagia, unspecified documented in this encounter Care Teams Shoe Salesman Relationship Specialty Start Date End Date Giorgio Cardona MD PCP - General 10/04/10 04/10/17 [facility] [place] [address] documented as of this encounter
--- OUTSIDE RECORDS SUMMARY | 2022-10-09 16:19 | XMS_ITS | Encounter Summary ---
:1940 Author Organization [facility] [place] [address] Care Team Providers Name Role Phone Giorgio Cardona MD Primary Care Provider Encounter Details Date Type Department Care Team Description 05/07/2012 Orders Only Otolaryngology at [facility] Ramin Buchanan Vocal cord paralysis [facility] [place] [address] [place] [address] [facility] DEPT. [place], [place] [address] Social History Tobacco Use Types [...] [facility] DR CHRISTIANO HENSON-DERMAT OLOGY [place], [place] [address] (Wo rk) 10/16/2022 Office Visit Otolaryngology Frank Buchanan MD [facility] OTOLARYNGOLOGY Sarah EPT. [place], [place] [address] (Wo rk) 11/29/2022 Appointment Hematology and Oncology 11/29/2022 Office Visit Radiation Oncology Emerald Leyva APRN [facility] RADIATION ONCOLO [place], [place] [address] (Wo rk) documented as of this encounter Visit Diagnoses Diagnosis Vocal cord paralysis Paralysis of vocal cords or larynx, unsp ecified documented in this encounter Care Teams Director Of Oncology Relationship Specialty Start Date End Date Giorgio Cardona MD PCP - General 10/04/10 04/10/17 [facility] GENER[facility] [place] [address] documented as of this encounter
--- OUTSIDE RECORDS SUMMARY | 2022-10-09 16:19 | XMS_ITS | Encounter Summary ---
:1940 Author Organization [facility] [place] [address] Care Team Providers Name Role Phone Giorgio Cardona MD Primary Care Provider Encounter Details Date Type Department Care Team Description 05/20/2012 Clinical Support [place] [facility] [place]D (degenerative joint [facility] disease) [place] [address] Social History Tobacco Use Types Packs/Day Years Used Date Smoking Tobacco: Never Smokeless Tobacco: Never Alcohol Use Standard Drinks/Week Comments No 0 (1 standard drink = 0.6 oz pure alcoho l) Sex Assigned at Date Recorded Not on file documented as of this encounter Last Filed Vital Signs Vital Sign Reading Time Taken Comments Blood Pressure - - Pulse 66 05/20/2012 11:20 AM EDT Temperature - - Respiratory Rate - - Oxygen Saturation 99% 05/20/2012 11:20 AM EDT Inhaled Oxygen Concentration - - Weight 68.5 kg (151 lb) 05/20/2012 11:20 AM EDT Height 172.7 cm (5' 8) 05/20/2012 11:20 AM EDT Body Mass Index 22.96 05/20/2012 11:20 AM EDT documented in this encounter Plan of Treatment Upcoming Encounters Date Type Specialty Care Team Description 10/11/2022 Office Visit Dermatology Virgilio Mckeon MD [facility] DR CHRISTIANO HENSON-DERMAT [place], [place] [address] (Wo rk) 10/16/2022 Office Visit Otolaryngology Frank Buchanan MD [facility] OTOLARYNGOLOGY Sarah EPT. [place], [place] [address] (Wo rk) 11/29/2022 Appointment Hematology and Oncology 11/29/2022 Office Visit Radiation Oncology Emerald Leyva APRN [facility] RADIATION ONCCESAR GY [place], [place] [address] (Wo rk) documented as of this encounter Procedures Procedure Name Priority Date/Time Associated Diagnosis Comme nts XR CHEST PA AND Routine 05/20/2012 12:55 PM DJD (degenerative Results for this LATERAL EDT joint disease) of procedure are in knee the results section. EKG 12-LEAD Elective 05/20/2012 11:50 AM DJD (degenerative Res ults for this EDT joint disease) of procedure are in knee the results section. documented in this encounter Results XR chest routine PA & lateral (05/20/2012 12:55 PM EDT) Anatomical Region Laterality Modality Chest N/A Radiographic Imaging Specimen (Source) Anatomical Collection Method Collection Time Re ceived Time Location / / Volume Laterality 05/20/2012 12:55 PM EDT Narrative 05/20/2012 3:26 PM EDT Examination Two-view chest. Clinical History Preoperative. ??Right knee replacement. Comparison 08/28/2011. Technique PA and lateral views of the chest. Findings The appearance of the lungs is unchanged , status post lobectomy on the right. ?? No new pulmonary findings. ??No change i n the cardiopulmonary silhouette. ?? Sternotomy wires are intact. ??Mitral va lve annuloplasty in unchanged position. ?? Decreased prominence of the upper medias tinum consistent with interval thyroid within resection. Impression No active cardiopulmonary pathology iden tified. Procedure Note Eliz Valderrama MD - 05/20/2012Formatt ing of this note might be different from the original. Examination Two-view chest. Clinical History Preoperative. Right knee replacement. Comparison 08/28/2011. Technique PA and lateral views of the chest. Findings The appearance of the lungs is unchanged , status post lobectomy on the right. No new pulmonary findings. No change in the cardiopulmonary silhouette. Sternotomy wires are intact. Mitral valv e annuloplasty in unchanged position. Decreased prominence of the upper medias tinum consistent with interval thyroid within resection. Impression No active cardiopulmonary pathology iden tified. Alessio Quezada MD IMG DX ORDERABLES EKG 12 Lead (05/20/2012 11:50 AM EDT) Component Value Ref Range Test Analysis Performed Pathologis t Method Time At Signature Ventricular rate 58 BPM MUSE SYSTEM Atrial Rate 58 BPM MUSE SYSTEM P-R Interval 228 ms MUSE SYSTEM QRS Duration 90 ms MUSE SYSTEM Q-T Interval 436 ms MUSE SYSTEM QTC Calculated 428 ms MUSE SYSTEM (Bezet) Calculated P [place] 55 degrees MUSE SYSTEM Calculated R [place] 21 degrees MUSE SYSTEM Calculated T [place] 49 degrees MUSE SYSTEM INTERPRETATION Sinus bradycardia with 1st degree A-V block MUSE SYSTEM Otherwise normal ECG When compared with ECG of 23-NOV-2011 12:31, No significant change was found Confirmed by MD Micheal, Bobby ([id number]) on 05/21/2012 8:49:55 AM Specimen Anatomical Collection Method Collection Time Receive d Time (Source) Location / / Volume Laterality 05/20/2012 11:50 05/21/2012 8:49 AM EDT AM EDT Alessio Quezada MD ECG ORDERABLES Performing Organization Address City/State/ZIP Code Phon e Number MUSE SYSTEM documented in this encounter Visit Diagnoses Diagnosis DJD (degenerative joint disease) of knee Osteoarthrosis, unspecified whether gene ralized or localized, lower leg documented in this encounter Care Teams Tip Out Worker Relationship Specialty Start Date End Date Giorgio Cardona MD PCP - General 10/04/10 04/10/17 [facility] GENER[facility] [place] [address] documented as of this encounter
--- OUTSIDE RECORDS SUMMARY | 2022-10-09 16:19 | XMS_ITS | Encounter Summary ---
:1940 Author Organization [facility] [place] [address] Care Team Providers Name Role Phone Giorgio Cardona MD Primary Care Provider Encounter Details Date Type Department Care Team Description 03/14/2012 Hospital Encounter MRI at [facility], DR JESUS Constipation; [facility] Giorgio Cardona MD [facility] GENERAL [place] [address] Dyslipidemia; Drive GERD (gastroesophageal reflu x disease); [place], [place] Hypertension; [address] Lung cancer; [phone] S/P mitral valv e repair; Osteoarthritis; Prostate cancer ; Anxiety; S/P thyroidecto my; Post-nasal drip Social [...] - - Weight 66.7 kg (147 lb) 03/14/2012 10:33 AM EDT Height - - Body Mass Index 23.02 01/08/2012 2:20 PM EST documented in this encounter Medications [...] PO QHS documented as of this encounter Miscellaneous Notes Miscellaneous - Provider, Scanning - 03/25/2012 9:26 AM EDT documented in this encounter Plan of Treatment Upcoming Encounters Date Type Specialty Care Team Description 10/11/2022 Office Visit Dermatology Virgilio Mckeon MD [facility] DR CHRISTIANO HENSON-DERMAT [place], [place] [address] (Wo rk) 10/16/2022 Office Visit Otolaryngology Frank Buchanan MD [facility] OTOLARYNGOLOGY D EPT. [place], [place] [address] (Wo rk) 11/29/2022 Appointment Hematology and Oncology 11/29/2022 Office Visit Radiation Oncology Emerald Leyva APRN [facility] RADIATION ONCC[place], [place] [address] (Wo rk) documented as of this encounter Procedures Procedure Name Priority Date/Time Associated Diagnosis Comme nts MRI ABDOMEN WWO Routine 03/14/2012 11:05 Unspecified Results for this CONTRAST AM EDT constipation procedure are in Other and unspecified the re sults hyperlipidemia section. Esophageal reflu x Unspecified essential hypertension Malignant neoplasm of bronchus and lung, unspecified site Other postprocedural status Osteoarth NOS-un spec Malignant neoplasm of prostate Anxiety state, unspecified Postnasal drip documented in this encounter Results MRI ABDOMEN WITH/WO CONTRAST (03/14/2012 11:05 AM EDT) Anatomical Region Laterality Modality Abdomen Magnetic Resonance Specimen (Source) Anatomical Collection Method Collection Time Re ceived Time Location / / Volume Laterality 03/14/2012 11:05 AM EDT Impressions 03/14/2012 4:33 PM EDT IMPRESSION: ?? No change in the 9 mm cystic lesion in t he pancreatic head. 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 Followup MRI is recommended in one to tw o years. Although these lesions have potentially a very low-grade malignant p otential, the stability and its size since October 2010 is reassuring for be nignity. ?? Film and interpretation reviewed by the attending Narrative 03/14/2012 4:33 PM EDT MRI OF THE ABDOMEN WITHOUT AND WITH CONTRAST: HISTORY: ??One year followup for pancrea tic lesion. ?? COMPARISON: ??CT of the abdomen, 0 and 02/14/11. ?? TECHNIQUE: ??Standard pre and postcontra st MRI of the abdomen was performed. 13 cc Magnevist administered intravenously. ?? FINDINGS: ??There is a tiny, 9 mm cystic lesion in the pancreatic head adjacent to the main pancreatic duct. The relatio n to the pancreatic duct is difficult to determine, but continuity with the ma in duct is certainly possible. The lesion has been unchanged in size since October 2010. No new pancreatic lesions are seen. There is no pancreatic ductal dilatation. ?? The liver, gallbladder, spleen, and kidn eys are unchanged. Multiple bilateral parapelvic and renal cortical cysts are seen. A left-sided adrenal adenoma is again identified. The right adrenal glan d is normal. ?? No adenopathy is seen within the abdomen . No bowel obstruction. There is no free fluid. ?? Postcontrast, no foci of abnormal enhanc ement is seen within the abdomen. ?? Procedure Note Mane Scott MD - 03/14/2012Form atting of this note might be different from the original. MRI OF THE ABDOMEN WITHOUT AND WITH CONT RAST: HISTORY: One year followup for pancreati c lesion. COMPARISON: CT of the abdomen, 10/24/10 and 02/14/11. TECHNIQUE: Standard pre and postcontrast MRI of the abdomen was performed. 13 cc Magnevist administered intravenously. FINDINGS: There is a tiny, 9 mm cystic l esion in the pancreatic head adjacent to the main pancreatic duct. The relatio n to the pancreatic duct is difficult to determine, but continuity with the ma in duct is certainly possible. The lesion has been unchanged in size since October 2010. No new pancreatic lesions are seen. There is no pancreatic ductal dilatation. The liver, gallbladder, spleen, and kidn eys are unchanged. Multiple bilateral parapelvic and renal cortical cysts are seen. A left-sided adrenal adenoma is again identified. The right adrenal glan d is normal. No adenopathy is seen within the abdomen . No bowel obstruction. There is no free fluid. Postcontrast, no foci of abnormal enhanc ement is seen within the abdomen. IMPRESSION IMPRESSION: No change in the 9 mm cystic lesion in t he pancreatic head. 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 Followup MRI is recommended in one to tw o years. Although these lesions have potentially a very low-grade malignant p otential, the stability and its size since October 2010 is reassuring for be nignity. Film and interpretation reviewed by the attending Giorgio Cardona MD IMG MRI ORDERABLES documented in this encounter Visit Diagnoses Diagnosis Constipation Unspecified [...] drip Postnasal drip documented in this encounter Administered Medications Inactive Administered Medications - up to 3 most recent administrations Medication Order MAR Action Action Date Dose Rate Site gadopentetate dimeglumine Given 03/14/2012 11:00 AM EDT 13 mLs (MAGNEVIST) injection 13 mL 13 mL (0.2 mL/kg/dose ? 66.7 kg), Intravenous, ONCE PRN, 1 dose, Starting on Alisha 03/14/12 at 1034, Until Alisha 03/14/12 at 1100, Per Protocol, Routine documented in this encounter Care Teams Crap Game Box Person Relationship Specialty Start Date End Date Giorgio Cardona MD PCP - General 10/04/10 04/10/17 [facility] GENERAL INTERNAL [place] [address] documented as of this encounter
--- OUTSIDE RECORDS SUMMARY | 2022-10-09 16:19 | XMS_ITS | Encounter Summary ---
:1940 Author Organization [facility] [place] [address] Care Team Providers Name Role Phone Giorgio Cardona MD Primary Care Provider Reason for Referral Surgical (Routine) - Closed Specialty Diagnoses / Procedures Referred By Contact Refer red To Contact Gastroenterology Diagnoses Dysphagia Giorgio Cardona MD [facility] Endoscopy [address] [facility] [place] [address] [place] [address] Referral ID Status Reason Start Date Expiration Date Visits V isits Requested Authorized [id number] Closed Consult, 01/23/2012 07/21/2012 1 1 Test & Treat Encounter Details Date Type Department Care Team Description 01/23/2012 Orders Only Internal Medicine at Deandre Cardona MD Dysphagia (Primary Dx) [facility] [place] [address] [phone] (Wo rk) Social History Tobacco Use Types [...] [facility] CHRISTIANO HENSON-DERMAT OLOGY [place], [place] [address] (Wo rk) 10/16/2022 Office Visit Otolaryngology Frank Buchanan MD [facility] OTOLARYNGOLOGY D EPT. [place], [place] [address] (Wo rk) 11/29/2022 Appointment Hematology and Oncology 11/29/2022 Office Visit Radiation Oncology Emerald Leyva APRN [facility] RADIATION ONCOLO GY [place], [place] [address] (Wo rk) Scheduled Referrals Name Type Priority Associated Order Schedule Diagnoses REFERRAL TO Outpatient Routine Dysphagia Ordered: GASTROENTEROLOGY Referral 01/23/2012 documented as of this encounter Visit Diagnoses Diagnosis Dysphagia - Primary Dysphagia, unspecified documented in this encounter Care Teams Gear Inspector Relationship Specialty Start Date End Date Giorgio Cardona MD PCP - General 10/04/10 04/10/17 [facility] [place] [address] documented as of this encounter
--- OUTSIDE RECORDS SUMMARY | 2022-10-09 16:19 | XMS_ITS | Encounter Summary ---
:1940 Author Organization [facility] [place] [address] Care Team Providers Name Role Phone Arabella Rob MD Primary Care Provider Reason for Visit Reason Comments Lung Cancer Encounter Details Date Type Department Care Team Description 02/15/2012 Follow-Up Cardiothoracic Surge ry Lois Jacome, Lung cancer (Primary [facility] Sarah garcia MD Dx) [address] [phone] DR CARDIOTHORACIC SURGERY [place] [address] Social History Tobacco Use Types Packs/Day Years Used Date Smoking Tobacco: Never Smokeless Tobacco: Never Alcohol Use Standard Drinks/Week Comments No 0 (1 standard drink = 0.6 oz pure alcoho l) Sex Assigned at Date Recorded Not on file documented as of this encounter Last Filed Vital Signs Vital Sign Reading Time Taken Comments Blood Pressure 120/63 02/15/2012 2:35 PM EDT Pulse 59 02/15/2012 2:35 PM EDT Temperature - - Respiratory Rate - - Oxygen Saturation - - Inhaled Oxygen Concentration - - Weight 66.7 kg (147 lb) 02/15/2012 2:35 PM EDT Height - - Body Mass Index 23.02 01/08/2012 2:20 PM EST documented in this encounter Progress Notes Lois Jacome MD - 02/15/2012 3:01 PM EDT Thoracic Surgery Attending Established Patient Visit Lois Jacome MD [place] [address] FAX: PCP: ARABELLA ROB MD, MD Referring Physician: Patient is a 71 y.o. male with HTN, GERD and h/o prostate cancer s/p XRT who underwent VATS lobectomy on 02/09/10 for right lower lobe adenocarcinoma. Procedure 02/09/2010: Bronchoscopy, Diagnostic thoracoscopy, VATS lobectomy, Mediastinal lymphadenectomy, and intercostal nerve block. Pathology: 1.1 cm invasive adenocarcinoma, with peripheral LIANET features. Well differentiated with negative margins. 0/11 lymph nodes positive for malignancy. Post operative Staging: [id number] HPI: Since his last visit, he has had his thyroid resected by Dr. Guthrie for multinodular goiter.His voice is hoarse now. Cough is better since that surgery and his swallowing much better. He has lost weight on purpose, down to 145 and maintaining. Lost 23 lbs by watching his diet. Knee still bothers him. He is planning a knee replacement with Ortho. 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 Past Medical History: Patient Active Problem List Diagnoses Date Noted ??? Post-nasal drip [784.91B] 08/28/2011 ??? Inguinal hernia recurrent unilateral [550.91B] 02/14/2011 ??? 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 Pancreatic cyst [577.2G] 09/12/2010 ??? Constipation [564.00A] 05/12/2010 ??? Dyslipidemia [272.4CR] ??? GERD (gastroesophageal reflux disease) [530.81S] ??? Hypertension [401.9AJ] ??? Impaired fasting glucose [790.21] ??? S/p mitral valve repair [V45.89FR] ??? Osteoarthritis [715.90AN] ??? Prostate cancer [185A] ??? Lung cancer [162.9M] 12/13/2009 Past Medical History Diagnosis Date ??? Lung [...] INGUINAL, RECURRENT performed by NOREEN BOWIE at [facility] MAIN OR Review of Systems: As above, [...] Lactose Other (See Comments) Sneezing Medications: Outpatient prescriptions marked as taking for the 02/15/12 encounter (Follow-Up) with LOIS JACOME Medication Sig Dispense Refill ??? levothyroxine (SYNTHROID) [...] by mouth daily. 90 mg 3 ??? polyethylene glycol (MIRALAX) 17 gram [...] 4 MG = 2 Capsule(s) PO QHS Physical Exam: Blood pressure 120/63, pulse 59, weight 66.679 kg (147 lb). General Appearance: Alert, cooperative, no distress, appears [...] new nodules, no adenopathy. Post thyroid resection. Stable left adrenal adenoma Assessment: Mr. Mina is a 71 y.o. male s/p right VATS lower lobectomy for stage T1aN0 adenocarcinoma who continues to do well after surgery without signs of recurrence. He feels well other than his knee pain. He is very active and busy at work despite the pain. He is reluctant to proceed with evaluation forhis hoarseness. It does bother him, but he is not sure he wants an injection of his vocal cords. In short, most of his other health issues are of more concern than his lung cancer follow up. As he is 2years from the surgery, the risk of recurrence or understaging of his lung cancer has decreased. We can now follow him with yearly CT [...] cancer surveillance. Time for consultation: More than 15 minutes of this 25 minute visit were spent in counseling and coordination of care. documented in this encounter Plan of Treatment Upcoming Encounters Date Type Specialty Care Team Description 10/11/2022 Office Visit Dermatology Virgilio Mckeon MD [facility] DR CHRISTIANO HENSON-DERMAT OLOGY [place], [place] [address] (Wo rk) 10/16/2022 Office Visit Otolaryngology Frank Buchanan MD [facility] OTOLARYNGOLOGY Sarah EPT. [place], [place] [address] (Wo rk) 11/29/2022 Appointment Hematology and Oncology 11/29/2022 Office Visit Radiation Oncology Emerald Leyva APRN [facility] RADIATION ONCCESAR GY [place], [place] [address] (Wo rk) documented as of [...] neoplasm of bronchus and lung, unspecified site Lung cancer Malignant neoplasm of bronchus and lung, unspecified site documented in this encounter Care Teams Desk Clerks Supervisor Relationship Specialty Start Date End Date Arabella Rob MD PCP - General 10/04/10 04/10/[address] [facility] [place] [address] documented as of this encounter
--- OUTSIDE RECORDS SUMMARY | 2022-10-09 16:19 | XMS_ITS | Encounter Summary ---
:1940 Author Organization [place] [address] Care Team Providers Name Role Phone Giorgio Cardona MD Primary Care Provider Reason for Visit Reason Comments Follow-up Encounter Details Date Type Department Care Team Description 04/11/2012 Follow-Up Otolaryngology at [facility] Nicolette Stout, Reflux (Primary Dx); [facility] Sarah garcia [place] [address] [facility] [phone] OTOLARYNGOLOGY DEPT. 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 Interval History: Alfredito is here for a recheck of left vocal cord paralysis. He does notice a decrease of volume with his voice. This is especially hard talking on the phone. He denies any problems with swallowing unless its a large pill. No respiratory issues. He does have a hx of reflux and continues to take his Prilosec 40 mg a day. He denies any reflux symptoms. He has decreased the amount of coffee intake. Past Medical History: Other than above, Past Medical History Diagnosis Date ??? Lung cancer ??? Prostate cancer s/p XRT . Medications:Current outpatient prescriptions ordered prior to encounter Medication Sig Dispense Refill ??? levothyroxine (SYNTHROID) 125 mcg tablet Take 1 tablet by mouth every morning. 30 tablet 12 ??? atenolol (TENORMIN) 50 mg tablet Take 0.5 tablets by mouth daily. 30 tablet 3 ??? Omeprazole 20 mg TbEC Take 40 mg by mouth daily. 90 mg 3 ??? DOCUSATE SODIUM (COLACE ORAL) Take by mouth daily. ??? naproxen sodium (ALEVE) 220 mg tablet Take 220 mg by mouth 2 times daily. ??? furosemide (LASIX) 20 mg tablet 40 MG = 2 Tablet(s) PO Once daily and PRN swelling ??? terazosin (HYTRIN) 2 mg capsule 4 MG = 2 Capsule(s) PO QHS ??? traZODone (DESYREL) 50 mg tablet Take 0.5-1 tablets by mouth nightly as needed for Sleep. 30 tablet 5 ??? polyethylene glycol (MIRALAX) 17 gram packet Take 17 g by mouth daily. Allergies:Lactose ROS: Pertinent positive findings discussed above. No other findings on review of constitutional, visual, cardiovascular, respiratory, gastrointestinal, genitourinary, musculoskeletal, dermatologic, neurological, psychiatric, endocrine, hematologic or immunologic systems. Physical Examination: Height 170.2 cm (5' 7), weight 68.947 kg (152 lb). General: Age-appropriate interactive behavior in no acute distress with a breathy voice. Face:Symmetric without dysmorphic features. Nose: Patent anteriorly; healthy pink mucosa without lesions. Septum without significant deviation. Mouth: Lips and gingiva pink, moist, without lesions. Dentition healthy. Tongue and floor of mouth soft without lesions or masses. Hard palate without lesions. Pharynx: Soft palate without lesions; uvula intact without evidence of submucus cleft palate. Oropharynx symmetric. Neck: No lymphadenopathy. Procedure Note: Flexible Fiberoptic Laryngoscopy: Topical anesthetic and decongestant applied to the nasal cavity. Patient tolerated the procedure well without any complications. Findings: Nasal cavity : anterior examination reveals septum wnl,, turbinates non- edematous,no evidence of neoplastic process such as polyps, no mucopurulent drainage. Nasopharynx: clear without masses or lesions. Eustachian tube openings normal. Oropharynx: normal without masses or lesions. Larynx: base of tongue normal, valleculae is clear, epiglottis normal shape and contour without erythema or edema, vocal cord on right with full mobility, the left with paralysis with the right vocal cord not completely meeting the left cord with adduction. There Is evidence of irritation along the arytenoid folds and surrounding tissue. Post-cricoid region normal. Piriform sinuses are clear. Hypopharynx:unremarkable. Impression: 1)left vocal cord paralysis with hx of thyroidectomy. 2)GERD Plan: Alfredito will be changed to Nexium 40 mg a day and will stop the Prilosec. I will have him see for further evaluation of the left vocal cord paralysis. Monitor for any issues with swallowing/or respiratory issues. Nicolette CASTILLO [facility] Otolaryngology-Head and Neck Surgery [place], [place] [address] documented in this encounter Plan of Treatment Upcoming Encounters Date Type Specialty Care Team Description 10/11/2022 Office Visit Dermatology Virgilio Mckeon MD [facility] DR CHRISTIANO HENSON-DERMAT OLOGY [place], [place] [address] (Wo rk) 10/16/2022 Office Visit Otolaryngology Frank Buchanan MD [facility] OTOLARYNGOLOGY D EPT. [place], [place] [address] (Wo rk) 11/29/2022 Appointment Hematology and Oncology 11/29/2022 Office Visit Radiation Oncology Emerald Leyva APRN [facility] RADIATION ONCOLO GY [place], [place] [address] (Wo rk) documented as of this encounter Visit Diagnoses Diagnosis Reflux - Primary Esophageal reflux Vocal cord paralysis Paralysis of vocal cords or larynx, unsp ecified documented in this encounter Care Teams Sterile Instrument Technician Relationship Specialty Start Date End Date Giorgio Cardona MD PCP - General 10/04/10 04/10/17 [facility] GENERAL [place] [address] documented as of this encounter
--- OUTSIDE RECORDS SUMMARY | 2022-10-09 16:19 | XMS_ITS | Encounter Summary ---
:1940 [place] [address] Care Team Providers Name Role Phone Giorgio Cardona MD Primary Care Provider Encounter Details Date Type Department Care Team Description 03/14/2012 Hospital Encounter Laboratory Giorgio Cardona, IPMN (intraductal [facility] papillary mucinous [facility]) [facility] [id number] GENERAL INTERNAL [phone] MEDICINE [place] [id number] Social History Tobacco Use Types Packs/Day Years [...] [facility] DR CHRISTIANO HENSON-DERMAT OLOGY [place], [place] [address] (Wo rk) 10/16/2022 Office Visit Otolaryngology Frank Buchanan MD [facility] OTOLARYNGOLOGY Sarah EPT. [place], [place] [address] (Wo rk) 11/29/2022 Appointment Hematology and Oncology 11/29/2022 Office Visit Radiation Oncology Emerald Leyva APRN [facility] RADIATION ONCOLO GY [place], [place] [address] (Wo rk) documented as of this encounter Procedures Procedure Name Priority Date/Time Associated Comments Diagnosis COMPREHENSIVE Routine 03/14/2012 8:13 AM IPMN (intraductal Res ults for this METABOLIC PANEL EDT papillary mucinous proced ure are in (NON-FASTING) neoplasm) the results section. 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
--- OUTSIDE RECORDS SUMMARY | 2022-10-09 16:19 | XMS_ITS | Encounter Summary ---
:1940 Author Organization [facility] [place] [address] Care Team Providers Name Role Phone Giorgio Cardona MD Primary Care Provider Reason for Visit Reason Comments Radiation Follow-up prostate cancer Encounter Details Date Type Department Care Team Description 12/07/2011 Follow-Up Radiation Oncology at [place], Danna Pugh APRN Prostate cancer [address] (Primary Dx) [address] [place] [address] [place] [phone] [id number] (Wo rk) Social History Tobacco Use Types Packs/Day Years Used Date Smoking Tobacco: Never Smokeless Tobacco: Never Alcohol Use Standard Drinks/Week Comments No 0 (1 standard drink = 0.6 oz pure alcoho l) Sex Assigned at Date Recorded Not on file documented as of this encounter Last Filed Vital Signs Vital Sign Reading Time Taken Comments Blood Pressure 133/67 12/07/2011 8:43 AM EST Pulse 65 12/07/2011 8:43 AM EST Temperature 36.3 ??C (97.3 ??F) 12/07/2011 8:43 AM EST Respiratory Rate 18 12/07/2011 8:43 AM EST Oxygen Saturation 96% 12/07/2011 8:43 AM EST Inhaled Oxygen Concentration - - Weight 69.5 kg (153 lb 3.5 oz) 12/07/2011 8:43 AM EST Height - - Body Mass Index 24 11/30/2011 1:11 PM EST documented in this encounter Patient Instructions Patient InstructionsPaBecka richard APRN - 12/07/2011 8:54 AM EST Mr Mina you are doing well post treatment of your prostate cancer. There is no evidence of disease and a decreasing PSA of 0.81. As per NCCN guidelines we will see you again in six months for a repeat PSA and clinical evaluation. Call us if you have any concerns. Laboratory Studies: date PSA Testosterone 11/29/2011 0.81 287 05/03/2011 0.97 360 12/07/2010 1.68 424 09/12/2010 1.39 06/20/2010 1.58 03/16/2010 2.27 12/14/2009 2.3 448 11/01/09 2.8 06/22/09 2.4 01/12/09 1.6 10/14/08 1.9 09/21/08 3.5 05/20/08 1.0 02/10/08 0.9 11/19/07 1.5 08/07/07 1.3 05/27/07 2.9 post XRT 10/25/06 5.4 07/26/06 5.1 12/12/05 4.7 09/2005 4.4 09/2004 3.8 documented in this encounter Progress Notes Becka Dean APRN - 12/07/2011 9:11 AM EST Images from the original note were not included. Subjective: Patient ID: Alfredito Mina is a 71 y.o. male.who is in radiation oncology clinic today for regular followup. He was treated with external beam radiation therapy for prostate cancer and completed treatment 04/12/2007. He was enrolled in a clinical trial--RTOG 0126 arm 2. He was last seen in radiation oncology 06/08/2011 at which time his PSA was stable. HPI Mr. Mina is a male who had been followed with serial PSAs. In September 2004, it was 3.8; in September 2005, 4.4; in October 2005, 4.6; on December 12, 2005, 4.7; and on July 26, 2006, it was 5.1. I do not have the records, but in the discussion, his PSA had gotten into a range of 5.4, and at [...] were taken and the specimen reported in [facility] pathology under session #[id number] prostate: The right lobe apex, mid, and base negative; the left apex was 3 + 3 in 40% of one core; the left mid was 3 + 4 in 50% of one core; and the left base showed a 3 + 4 in 5% in one of two cores. This information was reviewed at [facility] on October 19, 2006, and the report paralleled that given by the [facility] institution. The [facility] session number was [id number]. The patient was then seen by Dr. [...] Problem List: 1. Adenocarcinoma of the prostate. [id number], [place] 4+3, left lobe involved. OLGA (-), PSA [...] adenoma 18 diverticulosis --sigmoid 19 Thyroidectomy 11/30/2011 Family History: Mother alive at 104, asthma, osteoporosis. Father at age 55, smoked too much, heart problems. 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 Single. Five children and sevengrandkids. One daughter with viral respiratory problems. 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 Used to play basketball. No alcohol. Current outpatient prescriptions ordered prior to encounter Medication Sig Dispense Refill ??? acetaminophen (TYLENOL) 325 mg tablet Take 2 tablets by mouth every 4 hours as needed for Pain. 30 tablet ??? levothyroxine (SYNTHROID) 125 mcg tablet Take 1 tablet by mouth every morning. 30 tablet 12 ??? Mometasone (NASONEX) 50 mcg/Actuation [place] by Nasal route 2 times daily. One [...] Take 20 mg by mouth daily. ??? furosemide (LASIX) 20 mg tablet 40 MG = 2 Tablet(s) PO Once daily and PRN swelling ??? atenolol (TENORMIN) 50 mg tablet 50 MG = 1 Tablet(s), PO, Once daily ??? terazosin (HYTRIN) 2 mg capsule 4 MG = 2 Capsule(s) PO QHS Interim History: Mr Mina reports that he is doing well. 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 He had a substernal goiter extending down to the aortic arch with distal narrowing of the trachea and deviation to the right. He feels that he is recovering well from treatment. He does have mild pain but is not using any pain meds. Over the weekend he had severe constipation and needed to go to the ER for enema. His bowels have been functioning well since with the use of Miralax. He plans to return to work next week. 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 He denies urinary problems at this time. His IPSS score is 7. He is pleased with his overall urinarystatus. International Prostate Symptom Score Total Score__7__ Not at all Less than one time in five Less than half of the time About half of the time More than half of the time Almost always Incomplete emptying X frequency X intermittency X urgency x Weak stream X Flow resistance X Not at all Every eight hours Every four hours Every three hours Every 2 hours Every hour nocturia X His bowels have been moving regularly since the weekend. He denies hematochezia, melena, constipation and diarrhea. He is not sexually active at this time. He reports that his respiratory symptoms are stable. He denies shortness of breath, no dyspnea, + occ cough, no hemoptysis He has ongoing severe knee pain due to OA and is again reconsidering surgery. Review of Systems Constitutional: Positive for fatigue. Negative for fever, chills, appetite change and unexpected weight change. Fatigue since recent surgery but plans to return to work next week. 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 HENT: Positive for voice change and postnasal drip. Negative for nosebleeds and neck stiffness. Mild sore throat Eyes: Negative. Respiratory: Positive for cough. Negative for shortness of breath and wheezing. First thing in am yellow sputum then it is white Occ cough Cardiovascular: Negative for chest pain and leg swelling. Gastrointestinal: Positive for constipation. Negative for nausea, abdominal pain, diarrhea, blood instool, abdominal distention, anal bleeding and rectal pain. Had to go to ER over the weekend for treatment of severe constipation. Genitourinary: Negative for dysuria, urgency, frequency, hematuria, decreased urine volume, difficulty urinating and testicular pain. See IPSS Musculoskeletal: Knee pain Neurological: Positive for dizziness. Negative for weakness and light-headedness. Dizzy if get up too quickly Hematological: Negative. Psychiatric/Behavioral: Positive for sleep disturbance. always thinking affects sleep--worries about financial issues. Recent Review Flowsheet Data View Complete Flowsheet Oncology Vitals 12/07/2011 Weight 69.5 kg Height - BSA (Calculated - sq m) - BMI (Calculated) - Temp 97.3 Temp src 1 Pulse 65 Heart Rate Source Right;NIBP Resp 18 BP 133/67 BP Location Right arm Patient Position Sitting SpO2 96 Pain Level 4 Karnofsky Score -1 Oncology Vitals 12/07/2011 Height (cm) - Weight (kg) - BSA (m2) - Objective: Physical Exam Vitals reviewed. Constitutional: He is oriented to person, place, and time. Vital signs are normal. He appears well-developed and well-nourished. He does not appear ill. No distress. HENT: Head: Normocephalic and atraumatic. Mouth/Throat: Uvula is midline. Mucous membranes are not pale and not dry. Posterior oropharyngeal erythema present. No oropharyngeal exudate, posterior oropharyngeal edema or tonsillar abscesses. Eyes: No scleral icterus. Neck: Normal range of [...] He exhibits no distension and no mass. No tenderness. He has no rebound and no guarding. Genitourinary: Rectum normal and penis normal. Guaiac negative stool. No hemorrhoids, prostate smooth, flat, not nodular No tenderness Musculoskeletal: Normal range of motion. He exhibits no edema and no tenderness. Lymphadenopathy: He has no cervical adenopathy. Neurological: He is alert and oriented to person, place, and time. He exhibits normal muscle tone. Coordination normal. Skin: Skin is warm and dry. No rash noted. He is not diaphoretic. No erythema. No pallor. Psychiatric: He has a normal mood and affect. His behavior is normal. Judgment and thought content normal. Laboratory Studies: date PSA Testosterone 11/29/2011 0.81 287 05/03/2011 0.97 360 12/07/2010 1.68 424 09/12/2010 1.39 06/20/2010 1.58 03/16/2010 2.27 12/14/2009 2.3 448 11/01/09 2.8 06/22/09 2.4 01/12/09 1.6 10/14/08 1.9 09/21/08 3.5 05/20/08 1.0 02/10/08 0.9 11/19/07 1.5 08/07/07 1.3 05/27/07 2.9 post XRT 10/25/06 5.4 07/26/06 5.1 12/12/05 4.7 09/2005 4.4 09/2004 3.8 Assessment and Plan: Adenocarcinoma of the prostate. Mr Mina is having a stable biochemical response to his prostate cancer treatment with JOSUE. Patient is to return to radiation oncology in six months for repeat PSA, and clinical evaluation. Heis to call if he has questions or concerns in the meantime. documented in this encounter Plan of Treatment Upcoming Encounters Date Type Specialty Care Team Description 10/11/2022 Office Visit Dermatology Virgilio Mckeon MD [facility] ER [address]DERMAT OLOGY [place], [place] [address] (Wo rk) 10/16/2022 Office Visit Otolaryngology Frank Buchanan MD [facility] OTOLARYNGOLOGY D EPT. [place], [place] [address] (Wo rk) 11/29/2022 Appointment Hematology and Oncology 11/29/2022 Office Visit Radiation Oncology Emerald Leyva APRN [facility] ER RADIATION ONCOLO GY [place], [place] [address] (Wo rk) documented as of this encounter Results PSA (07/09/2012 3:55 PM EDT) P athologist Signature PSA Total 0.48 0.00 - CERNER (Ultrasensitiv 4.00 ng/mL MILLENNIUM e) Specimen Anatomical Collection Method Collection Time Receive d Time (Source) Location / / Volume Laterality Blood specimen 07/09/2012 3:55 PM 012 3:58 (specimen) EDT PM EDT Resulting Agency Comment Spec In Lab Giorgio Franklin MD CHEMISTRY ORDERABLES Performing Organization Address City/State/[place] [address] CERNER MILLENNIUM documented in this encounter Visit Diagnoses Diagnosis Prostate cancer - Primary Malignant neoplasm of prostate documented in this encounter Care Teams Cigarette Packer Relationship Specialty Start Date End Date Giorgio Cardona MD PCP - General 10/04/10 04/10/17 [facility] [place] [address] documented as of this encounter
--- OUTSIDE RECORDS SUMMARY | 2022-10-09 16:20 | XMS_ITS | Encounter Summary ---
:1940 Author Organization [facility] [place] [address] Care Team Providers Name Role Phone Giorgio Cardona MD Primary Care Provider Encounter Details Date Type Department Care Team Description 09/26/2011 Abstract Internal Medicine at [facility] [place] [address] Social History Tobacco Use Types Packs/Day [...] [facility]LOG[facility] [place], [place] [address] (Wo rk) 10/16/2022 Office Visit Otolaryngology Frank Buchanan MD [facility] OTOLARYNGOLOGY Sarah EPT. [place], [place] [address] (Wo rk) 11/29/2022 Appointment Hematology and Oncology 11/29/2022 Office Visit Radiation Oncology Emerald Leyva APRN [facility] DR RYNE CANO [place], [place] [address] (Wo rk) documented as of this encounter Visit Diagnoses Not on filedocumented in this encounter Care Teams Cashier And Salesperson Relationship Specialty Start Date End Date Giorgio Cardona MD PCP - General 10/04/10 04/10/17 [facility] [place] [address] documented as of this encounter
--- OUTSIDE RECORDS SUMMARY | 2022-10-09 16:20 | XMS_ITS | Encounter Summary ---
:1940 Author Organization [facility] [place] [address] Care Team Providers Name Role Phone Giorgio Cardona MD Primary Care Provider Encounter Details Date Type Department Care Team Description 11/23/2011 Hospital Encounter Laboratory Andi Guthrie [facility] [place] [address] GENERAL SURGERY [place], [place] [address] (Wo rk) Social History Tobacco [...] route 2 17 g 12 201002/15/2012 mcg/Actuation [place] times daily. One spray each nostril each [...] [facility] DR CHRISTIANO [facility] [place], [place] [address] (Wo rk) 10/16/2022 Office Visit Otolaryngology Frank Buchanan MD [facility] OTOLARYNGOLOGMireille Smith EPT. [place], [place] [address] (Wo rk) 11/29/2022 Appointment Hematology and Oncology 11/29/2022 Office Visit Radiation Oncology Emerald Leyva, REINFORCING METAL WORKER [facility] RAD[facility] [place] [address] (Wo rk) documented as of this encounter Procedures Procedure Name Priority Date/Time Associated Comments Diagnosis DIFFERENTIAL, Routine 11/23/2011 12:22 Results fo r this AUTOMATED PM EST procedure are i n the results section. CREATININE Routine 11/23/2011 12:22 Results for this PM EST procedure are i n the results section. ABO/RH TYPING Routine 11/23/2011 12:22 Results fo r this PM EST procedure are i n the results section. CBC (WITH DIFF) Routine 11/23/2011 12:22 Results for this PM EST procedure are i n the results section. ANTIBODY SCREEN Routine 11/23/2011 12:22 Results for this PM EST procedure are i n the results section. BUN Routine 11/23/2011 12:22 Results for this PM EST procedure are i n the results section. ELECTROLYTES PANEL Routine 11/23/2011 12:22 Resul ts for this PM EST procedure are i n the results section. documented in this encounter Results (ABNORMAL) DIFFERENTIAL, AUTOMATED (11/23/2011 12:22 PM EST) [facility] gist Method Time Signature Neutrophils % 58.6 34.0 - CERNER 71.0 % MILLENNIUM Neutr Abs (ANC) 2.96 1.50 - CERNER 6.30 MILLENNIUM x10(3)/mc L Lymphocytes % 22.6 19.0 - CERNER 53.0 % MILLENNIUM Lymphocytes Abs 1.1 1.0 - 3.6 CERNER x10(3)/mc MILLENNIUM L Monocytes % 16.4 (H) 4.0 - CERNER 13.0 % MILLENNIUM Monocyte Abs 0.8 0.2 - 1.0 CERNER x10(3)/mc MILLENNIUM L Eosinophils % 2.0 0.0 - 7.0 CERNER % MILLENNIUM Eosinophils Abs 0.1 0.0 - 0.5 CERNER x10(3)/mc MILLENNIUM L Basophils % 0.4 0.0 - 2.0 CERNER % MILLENNIUM Basophils Abs 0.0 0.0 - 0.2 CERNER x10(3)/mc MILLENNIUM L Immature Gran % 0.00 0.00 - CERNER 0.66 % MILLBANNERIUM Comment: Immature granulocytes(IG's)percentage an d absolute count will include metamyelocytes, myelocytes, and promyelo cytes. Blood smears from CBCs yielding IG's will be scanned manually for concor dance. If this scan disagrees with the automated IG or if promyelocytes are not ed, a manual differential will be performed. Becki Gran Abs 0.00 0.00 - 0.05 x10(3)/mcL CER NER MILLBANNERIUM Specimen Anatomical Collection Method Collection Time Receive d Time (Source) Location / / Volume Laterality Blood specimen 11/23/2011 12:22 2 1:04 (specimen) PM EST PM EST Andi Guthrie MD HEMATOLOGY ORDERABLES Performing Organization Address City/[facility]/[place] [address] [facility] MILLBANNERIUM ANTIBODY SCREEN (11/23/2011 12:22 PM EST) Analysis Performed At Patho logist Time Signature Ab Screen Negative [facility] Expires at [id number] CERNER 2358 on: [facility] Specimen Anatomical Collection Method Collection Time Receive d Time (Source) Location / / Volume Laterality Blood specimen 11/23/2011 12:22 2 1:04 (specimen) PM EST PM EST Andi Guthrie MD BLOOD BANK ORDERABLES Performing Organization Address City/State/ZIP Code Phon e Number [address] [facility] MILLBANNERIUM ABO/RH TYPING (11/23/2011 12:22 PM EST) P athologist Signature ABORh Type O Pos CERNER [facility] Specimen Anatomical Collection Method Collection Time Receive d Time (Source) Location / / Volume Laterality Blood specimen 11/23/2011 12:22 2 1:04 (specimen) PM EST PM EST Andi Guthrie MD BLOOD BANK ORDERABLES Performing Organization Address City/State/ZIP Code [place] [address] CERNER MILLENNIUM CREATININE, SERUM (11/23/2011 12:22 PM EST) athologist Signature Creatinine 0.84 0.80 - CERNER 1.50 mg/dL MILLBANNERIUM Estimated GFR >60 >=60 CERNER MILLENNIUM Comment: The National Kidney Disease Education Pr [...] Location / / Volume Laterality Blood specimen 11/23/2011 12:22 2 1:04 (specimen) PM EST PM EST Andi Guthrie MD CHEMISTRY ORDERABLES Performing Organization Address City/State/ZIP [place] [address] CERNER MILLENNIUM (ABNORMAL) BUN (11/23/2011 12:22 PM EST) athologist Signature BUN 26 (H) 10 - 20 CERNER mg/dL MILLENNIUM Specimen Anatomical Collection Method Collection Time Receive d Time (Source) Location / / Volume Laterality Blood specimen 11/23/2011 12:22 2 1:04 (specimen) PM EST PM EST Andi Guthrie MD CHEMISTRY ORDERABLES Performing Organization Address City/[facility]/[place] [address] CERNER MILLENNIUM (ABNORMAL) ELECTROLYTES PANEL (11/23/2011 12:22 PM EST) athologist Signature Sodium 142 135 - 145 CERNER mmol/L MILLENNIUM Potassium 4.7 3.5 - 5.0 CERNER mmol/L MILLENNIUM Comment: Please note: ??Patients with WBC >100,00 0 may have falsely elevated Potassium levels. ??For accurate Potassium quantif ication in these patients send serum separator tube (gold top) for subsequent determinations. ??Contact the Clinical Chemistry Laboratory if there are any qu estions. Chloride 105 98 - 107 mmol/L CERNER MILLENN IUM CO2 32 (H) 22 - 31 mmol/L CERNER MILLENNI UM Anion Gap 5 5 - 15 mmol/L CERNER MILLENNIU M Specimen Anatomical Collection Method Collection Time Receive d Time (Source) Location / / Volume Laterality Blood specimen 11/23/2011 12:22 2 1:04 (specimen) PM EST PM EST Andi Guthrie MD CHEMISTRY ORDERABLES Performing Organization Address City/[facility] [place] [address] CERNER MILLENNIUM (ABNORMAL) CBC (WITH DIFF) (11/23/2011 12:22 PM EST) athologist Signature WBC 5.0 4.0 - 10.0 CERNER x10(3)/mcL MILLENNIUM RBC 4.14 (L) 4.63 - CERNER 6.08 MILLENNIUM x10(6)/mcL Hemoglobin 13.8 13.7 - CERNER 17.5 gm/dL MILLENNIUM Hematocrit 40.7 40.0 - CERNER 51.0 % MILLENNIUM MCV 98.3 (H) 79.0 - CERNER 92.0 fL MILLENNIUM MCH 33.3 (H) 25.6 - CERNER 32.2 pg MILLENNIUM MCHC 33.9 32.0 - CERNER 36.5 gm/dL ENNIUM Platelets 172 145 - 370 CERNER x10(3)/mcL ENNIUM RDWSD 49.0 (H) 35.0 - CERNER 46.0 fL MILLENNIUM RDWCV 13.6 10.9 - CERNER 14.4 % ENNIUM MPV 11.1 9.0 - 12.0 CERNER fL MILLENNIUM Specimen Anatomical Collection Method Collection Time Receive d Time (Source) Location / / Volume Laterality Blood specimen 11/23/2011 12:22 2 1:04 (specimen) PM EST PM EST Andi Guthrie MD HEMATOLOGY ORDERABLES Performing Organization Address City/State/[place] [address] [facility] documented in this encounter Visit Diagnoses Not on filedocumented in this encounter Care Teams Logging Assistant Relationship Specialty Start Date End Date Giorgio Cardona MD PCP - General 10/04/10 04/10/[address] [facility] [address] [place] [address] documented as of this encounter
--- OUTSIDE RECORDS SUMMARY | 2022-10-09 16:20 | XMS_ITS | Encounter Summary ---
:1940 Author Organization [facility] [place] [address] Care Team Providers Name Role Phone Giorgio Cardona MD Primary Care Provider Reason for Visit Reason Comments Follow-up Encounter Details Date Type Department Care Team Description 10/30/2011 Follow-Up Internal Medicine at Deandre Cardona MD Post-nasal drip; [facility] [address] Alas; [facility] Sarah garcia [place] [address] MEDICINE [phone] [place], [place] [address] (Wo rk) Social History Tobacco Use Types Packs/Day Years Used Date Smoking Tobacco: Never Smokeless Tobacco: Never Alcohol Use Standard Drinks/Week Comments No 0 (1 standard drink = 0.6 oz pure alcoho l) Sex Assigned at Date Recorded Not on file documented as of this encounter Last Filed Vital Signs Vital Sign Reading Time Taken Comments Blood Pressure 125/77 10/30/2011 10:30 AM EST Pulse 59 10/30/2011 10:30 AM EST Temperature - - Respiratory Rate - - Oxygen Saturation - - Inhaled Oxygen Concentration - - Weight 67.6 kg (149 lb) 10/30/2011 10:30 AM EST Height - - Body Mass Index 24.79 09/18/2011 4:22 PM EST documented in this encounter Patient Instructions Patient InstructionsBaGiorgio luciano MD - 10/30/2011 11:04 AM EST Start singulair once daily nasonex one spray each nostril twice daily. Hold off on taking potassium at this time. documented in this encounter Progress Notes Giorgio Cardona MD - 10/30/2011 11:00 AM EST Established Patient Follow-up Visit History of Presenting Illness: Patient here to followup on acute and chronic medical issues Very busy with work. Needs to have his knee and thyroid done next. Would like his knee surgery in early spring. Taking 'airborne' it is a vitamin tablet put in water which helps his symptoms. Dripping and cough is still bothersome. Runs all night and builds in the throat. Feels that the drip got worse with the nasal drip. Still feels that it gets stuck in his throat. Not taking lucas. Still building in his throat. Took lucas for one month - he did not think it helped at all. Had tried flonase. Patient reported measures in the past 7 days Pain:8 Physical Health:Fair Mental Health:Poor Feels mental health is poor - he worries all the time. Has been like this all his life. Every littlething bothers him. He thinks this impacts quality of life. When goes in someone's house, needs to beperfect - if something goes wrong, it bothers him. Never been on anything - he did not stay with them. He 'deals' with it. No problems with concentration. Does worry a lot. Patient Active Problem List Diagnoses ??? Anxiety [...] features. 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 [id number]; KRAS negative, EGFR negative --09/2010: CT scan - normal --02/2011: CT scan --09/2011: CT scan - negative annual CT's afterwards Current outpatient prescriptions:Mometasone (NASONEX) 50 mcg/Actuation [place], by Nasal route 2 times daily. One spray each nostril each nostril., Disp: 17 g, Rfl: 12; montelukast (SINGULAIR) 10 mg tablet, Take 1 tablet by mouth nightly., Disp: 30 tablet, Rfl: 12; DOCUSATE SODIUM (COLACE ORAL), Take by mouth daily., Disp: , Rfl: ; naproxen sodium (ALEVE) 220 mg tablet, Take 220 mg by mouth 2 times daily., Disp: , Rfl: Omeprazole 20 mg TbEC, Take 20 mg by mouth daily., Disp: , Rfl: ; fexofenadine (LUCAS) 180 mg tablet, Take 1 tablet by mouth daily., Disp: 30 tablet, Rfl: 12; furosemide (LASIX) 20 mg tablet, 40 MG =2 Tablet(s) PO Once daily and PRN swelling, Disp: , Rfl: ; atenolol (TENORMIN) 50 mg tablet, 50 MG =1 Tablet(s), PO, Once daily, Disp: , Rfl: ; terazosin (HYTRIN) 2 mg capsule, 4 MG = 2 Capsule(s) PO QHS, Disp: , Rfl: DISCONTD: potassium chloride (K-DUR) 10 mEq tablet, 20meq, PO, Once daily, Disp: , Rfl: History Social History ??? [...] ( )palpitations Respiratory - ( )SOB, NIEVES (x )cough, sputum ( )wheezing HEENT - ( x) diffculty swallowing ( x ) nasal congestion, postnasal drip Psychiatric - (x ) sadness, depression (x ) anxiety, panic ( ) memory loss [...] rest or with movement Objective Filed Vitals: 10/30/11 1030 BP: 125/77 Pulse: 59 Weight: 67.586 kg (149 lb) Gen -no acute distress. Alert, responsive and comfortable HEENT - cobblestoning in back of throat. Injected nasal passageways. Neck - Full range of motion, no bruits, no lymphadenopathy or ++ thyromegaly. No increase in JVD. Neurological - grossly normal Gait: grossly intact with normal stride length, speed, and arm swing Assessment/Plan: # Post Nasal drip Suggest singulair and nasonex. Explained etiology. counselled # Anxiety Suggest SSRI but decliens at this time # THyromegaly Will clarify scheduling date per pt's request with Dr. Guthrie. # Edema Suggest rechecking K+ today prior to officially discontinuing. I counselled the patient on the above [...] my nurses, letter, or myD. Next Appointment: 6 months f/u Total time: 25 Minutes, 20 Of the visit time was spent in [id number] counselling of the above issues Orders placed in this Encounter: Orders Placed This Encounter Procedure ??? Comprehensive metabolic panel (non-fasting) Standing Status: Future Number of Occurrences: Standing Expiration Date: 11/28/2013 Laboratory Studies No results found for this or any previous visit (from the past 72 hour(s)). documented in this encounter Plan of Treatment Upcoming Encounters Date Type Specialty Care Team Description 10/11/2022 Office Visit Dermatology Virgilio Mckeon MD [facility] DR CHRISTIANO [place], [place] [address] (Wo rk) 10/16/2022 Office Visit Otolaryngology Frank Buchanan MD [facility] ER OTOLARYNGOLOGY D EPT. [place], [place] [address] (Leroy rk) 11/29/2022 Appointment Hematology and Oncology 11/29/2022 Office Visit Radiation Oncology Autumn Emerald ROSITA Pugh [facility] RADIATION ONCOLO GY [place], [place] [address] (Leroy bhatia) documented as of this encounter Procedures Procedure Name Priority Date/Time Associated Comments Diagnosis COMPREHENSIVE Routine 10/30/2011 11:25 Post-nasal drip Results for this METABOLIC PANEL AM EST Anxiety procedure are in (NON-FASTING) Edema the results section. documented in this encounter Results (ABNORMAL) Comprehensive metabolic panel (non-fasting) (10/30/2011 11:25 AM EST) P athologist Signature Glucose Lvl 100 60 - 199 CERNER mg/dL MILLENNIUM Comment: Diabetes: >=200 mg/dL plus symp toms BUN 21 (H) 10 - 20 mg/dL CERNER MILLENNIU M Creatinine 0.92 0.80 - 1.50 mg/dL CERNER MILL ENNIUM Sodium 139 135 - 145 mmol/L CERNER PATRICK NIUM Potassium 4.8 3.5 - 5.0 mmol/L CERNER PATRICK NIUM [...] 10.5 mg/dL CERNER PATRICK NIUM Total Protein 6.4 6.4 - 8.3 gm/dL CERNER MIL LENNIUM Albumin 4.1 3.2 - 5.2 gm/dL CERNER MILLENN IUM AST 25 0 - 39 unit/L CERNER MILLENNIU M ALT 15 0 - 55 unit/L CERNER MILLENNIU M Alk Phos 69 40 - 120 unit/L CERNER MILLENN IUM Total Bilirubin 0.4 0.2 - 1.3 mg/dL CERNER M ILLENNIUM [...] Location / / Volume Laterality Blood specimen 10/30/2011 11:25 1 (specimen) AM EST 11:32 AM EST Giorgio Cardona MD CHEMISTRY ORDERABLES Performing Organization Address City/State/ZIP Code Phon e Number [place] [phone] [place] documented in this encounter Visit Diagnoses Diagnosis Post-nasal drip Postnasal drip Anxiety Anxiety state, unspecified Edema documented in this encounter Care Teams Customer Experience Associate Relationship Specialty Start Date End Date Giorgio Cardona MD PCP - General 10/04/10 04/10/[address] [facility] [place] [address] documented as of this encounter
--- OUTSIDE RECORDS SUMMARY | 2022-10-09 16:20 | XMS_ITS | Encounter Summary ---
:1940 [place] [address] Care Team Providers Name Role Phone Giorgio Cardona MD Primary Care Provider Encounter Details Date Type Department Care Team Description 09/27/2011 [place] [facility] [place] [facility] [place] [id number] Social History Tobacco Use Types Packs/Day Years [...] 11/1312/29/2011 125 mcg tablet mouth every morning. DOCUSATE SODIUM (COLACE Take by mouth daily. 0 06/22/2012 ORAL) naproxen sodium (ALEVE) Take 220 mg by mouth 0 06/22/2012 220 mg tablet 2 times daily. Omeprazole 20 mg TbEC Take 20 mg by mouth 0 12/15/2011 daily. furosemide (LASIX) 20 mg 40 MG = 2 Tablet(s) 0 07/09/2012 tablet PO Once daily and PRN swelling potassium chloride 20meq, PO, Once 0 01/27/2011 1 12/31/2010 (K-DUR) 10 mEq tablet daily atenolol (TENORMIN) 50 mg 50 MG = 1 Tablet(s), 0 01/27/2011 12/15/2011 tablet PO, Once daily terazosin (HYTRIN) 2 mg 4 MG = 2 Capsule(s) 0 07/09/2012 capsule PO QHS documented as of this encounter Plan of Treatment Upcoming Encounters Date Type Specialty Care Team Description 10/11/2022 Office Visit Dermatology Virgilio Mckeon MD [facility] DR CHRISTIANO HENSON-DERMAT OLOGY [place], [place] [address] (Wo rk) 10/16/2022 Office Visit Otolaryngology Frank Buchanan MD [facility] OTOLARYNGOLOGY Sarah EPT. [place], [place] [address] (Wo rk) 11/29/2022 Appointment Hematology and Oncology 11/29/2022 Office Visit Radiation Oncology Emerald Leyva APRN [facility] RADIATION ONCCESAR GY [place], [place] [address] (Wo rk) documented as of this encounter Procedures Procedure Name Priority Date/Time Associated Diagnosis Comme nts US SCROTUM Routine 09/27/2011 4:01 PM Preop cardiovascular R esults for this EST exam procedure are i n the results section. documented in this encounter Results US scrotum (09/27/2011 4:01 PM EST) Anatomical Region Laterality Modality Pelvis Ultrasound Specimen (Source) Anatomical Collection Method Collection Time Re ceived Time Location / / Volume Laterality 09/27/2011 4:01 PM EST Narrative 09/27/2011 4:20 PM EST ?Scrotal Re port ? (Signed Final 09/27/2011 04 :19 pm) Patient Info ID: ? [id number] ? : ??[birth year] (71 yrs) Name: ? KATLIN Rodriguez ? Visit Date: 09/27/2011 03:44 pm ? RACQUEL Performed By Performed By: ?Edelmira Owen RDMS Attending: ? Maeve GALINDO, Grant Menezes Referred By: ? DARRON BELL MD Accession#: ?[id number] Service(s) Provided [facility] - Ultrasound Scrotum and Contents w ith ?[id number], [id number] Vascular - [id number], [id number] Indications Testicular pain Right Testicle Measurement(cm) ? L: ??4.5 ?AP: ?? 2.9 ? TV: ??2.8 Vol (ml): ?19.1 Vascularity: ?Normal vascularity Right Epididymis Head: ?Normal Body: ?Normal Tail: ?Normal Right Other Hydrocele: ? Mild hydrocele Varicocele: ?Not visualized Left Testicle Measurement(cm) ? L: ??4.4 ?AP: ?? 2.3 ? TV: ??3.1 Vol (ml): ?16.4 Vascularity: ?Normal vascularity Comment: ?Dilated rete testis Left Epididymis Head: ?Multiple epididymal cysts; t he largest of which ?measures 5 mm Body: ?Normal Tail: ?Normal Comment: ?Incidental note of a 5mm epididymal appendage. Left Other Hydrocele: ? Mild hydrocele Varicocele: ?Present Impression Ultrasound - Testicular - Summary No evidence of torsion or epididymitis. ??Incidental note of left epididymal cysts. I ??viewed the images and agree with jose miguel colón above interpretation. Thank you for allowing us to participbrandon colón in the care of KATLIN CLEMENT. Please do not hes itate to call if you have any questions. ? Grant chatman MD Electronically Signed Final Report ?? 04:19 pm Procedure Note Grant Mcfarlane MD - 09/27/2011Format ting of this note might be different from the original. Scrotal Report (Signed Final 09/27/2011 04:19 pm) Patient Info ID: [id number] : 38 (71 yrs ) Name: KATLIN Rodriguez Visit Date: 09/27/2011 03:44 pm RACQUEL Performed By Performed By: Edelmira Owen RDMS Attending: Grant Mcfarlane MD Referred By: DARRON BELL MD Service(s) Provided [facility] - Ultrasound Scrotum and Contents w ith [id number], [id number] Vascular - [id number], [id number] Indications Testicular pain Right Testicle Measurement(cm) L: 4.5 AP: 2.9 TV: 2.8 Vol (ml): 19.1 Vascularity: Normal vascularity Right Epididymis Head: Normal Body: Normal Tail: Normal Right Other Hydrocele: Mild hydrocele Varicocele: Not visualized Left Testicle Measurement(cm) L: 4.4 AP: 2.3 TV: 3.1 Vol (ml): 16.4 Vascularity: Normal vascularity Comment: Dilated rete testis Left Epididymis Head: Multiple epididymal cysts; the la rgest of which measures 5 mm Body: Normal Tail: Normal Comment: Incidental note of a 5mm epidi dymal appendage. Left Other Hydrocele: Mild hydrocele Varicocele: Present Impression Ultrasound - Testicular - Summary No evidence of torsion or epididymitis. Incidental note of left epididymal cysts. I viewed the images and agree with the above interpretation. Thank you for allowing us to participat e in the care of KATLIN CLEMENT. Please do not hes itate to call if you have any questions. Grant Mcfarlane MD Electronically Signed Final Report 09/27 04:19 pm Giorgio Cardona MD IMG US GEN ORDERABLES documented in this encounter Visit Diagnoses Diagnosis Preop cardiovascular exam Pre-operative cardiovascular examination documented in this encounter Care Teams Transitions Manager Relationship Specialty Start Date End Date Giorgio Cardona MD PCP - General 10/04/10 04/10/17 [facility] [place] [address] documented as of this encounter
--- OUTSIDE RECORDS SUMMARY | 2022-10-09 16:20 | XMS_ITS | Encounter Summary ---
:1940 Author Organization [facility] [place] [address] Care Team Providers Name Role Phone Arabella Rob MD Primary Care Provider Reason for Visit Reason Comments Hyperthyroidism Goiter Thyroid Nodule Encounter Details Date Type Department Care Team Description 07/20/2011 Office Visit Endocrinology at [facility] Shantel Jeff, DM (diabetes mellitus); [facility] Oriana Valdovinos MD Hyperthyroidism; [place] [address] CENTER [phone] END[address]PT[address] [place] [id number] Social History Tobacco Use Types Packs/Day Years Used Date Smoking Tobacco: Never Smokeless Tobacco: Never Alcohol Use Standard Drinks/Week Comments No 0 (1 standard drink = 0.6 oz pure alcoho l) Sex Assigned at Date Recorded Not on file documented as of this encounter Last Filed Vital Signs Vital Sign Reading Time Taken Comments Blood Pressure 112/60 07/20/2011 2:41 PM EDT Pulse 72 07/20/2011 2:41 PM EDT Temperature - - Respiratory Rate 15 07/20/2011 2:41 PM EDT Oxygen Saturation - - Inhaled Oxygen Concentration - - Weight 69.9 kg (154 lb) 07/20/2011 2:41 PM EDT Height - - Body Mass Index 26.43 07/14/2011 12:58 PM EDT documented in this encounter Patient Instructions Patient InstructionsOriana Jeff MD - 07/20/2011 2:02 PM EDT Recent Results (from the past 24 hour(s)) HEMOGLOBIN A1C Component Value Range ??? Hemoglobin A1C 5.8 4.3 - 6.1 (%) ??? Est Avg Gluc See note (mg/dL) TSH Component Value Range ??? TSH 1.50 0.27 - 4.20 (mcIU/mL) T4, FREE Component Value Range ??? Free T4 1.06 0.90 - 1.60 (ng/dL) T3 Component Value Range ??? T3, Total 98 75 - 170 (ng/dL) BASIC METABOLIC PANEL (NON-FASTING) Component Value Range ??? Glucose Lvl 93 60 - 199 (mg/dL) ??? BUN 19 10 - 20 (mg/dL) ??? Creatinine 1.04 0.80 - 1.50 (mg/dL) ??? Sodium 139 135 - 145 (mmol/L) ??? Potassium 4.8 3.5 - 5.0 (mmol/L) ??? Chloride 103 98 - 107 (mmol/L) ??? CO2 32 (*) 22 - 31 (mmol/L) ??? Anion Gap 4 (*) 5 - 15 (mmol/L) ??? Calcium 9.1 8.5 - 10.5 (mg/dL) ? ? Estimated GFR >60 >=60 documented in this encounter Progress Notes Oriana Jeff MD - 07/20/2011 2:02 PM EDT Subjective: [facility]ocrine Clinic Alfredito Mina 1940 [id number] Date : 07/20/11 Provided by: Oriana Jeff MD, PhD, FACE PCP: ARABELLA ROB MD, MD Patient ID: Alfredito Mina is a 71 y.o. male. HPI Reason for visit: Endocrine follow-up with the following problem list: 1. Multinodular Goiter/Lt substernal hot nodules->s/p I-131 Rx 03/21 & 07/22 --U/S 07/21: two nodules are benign in appearance 2008 --07/21: sTSH-0.12 -> 0.01 (02/28/10) with slightly high FT4 1.79 and normal T3 at 140 -I-123 scan & uptake (03/31/10) showed MNG with hot nodules in Lt lower pole/ substernal => s/p RODRIGUEZ therapy ~30 mCi on 04/01/10 & 2nd RODRIGUEZ Rx on 07/26/10 12/20/10: TSH 1.09, FT4 1.04 2. Impaired Fasting Glucose [Onset: Unknown] 3. Dyslipidemia [Onset: Unknown] --02/2009: HDL-56, TG-68, LDL-81, TC-146. --07/2009: TC- 124, TG-89, HDL-66, LDL-124. --09/2009: TC 162, TG 71, LDL 81. On statin 4. Hypertension Recent Results (from the past 24 hour(s)) HEMOGLOBIN A1C Component Value Range ??? Hemoglobin A1C 5.8 4.3 - 6.1 (%) ??? Est Avg Gluc See note (mg/dL) TSH Component Value Range ??? TSH 1.50 0.27 - 4.20 (mcIU/mL) T4, FREE Component Value Range ??? Free T4 1.06 0.90 - 1.60 (ng/dL) T3 Component Value Range ??? T3, Total 98 75 - 170 (ng/dL) BASIC METABOLIC PANEL (NON-FASTING) Component Value Range ??? Glucose Lvl 93 60 - 199 (mg/dL) ??? BUN 19 10 - 20 (mg/dL) ??? Creatinine 1.04 0.80 - 1.50 (mg/dL) ??? Sodium 139 135 - 145 (mmol/L) ??? Potassium 4.8 3.5 - 5.0 (mmol/L) ??? Chloride 103 98 - 107 (mmol/L) ??? CO2 32 (*) 22 - 31 (mmol/L) ??? Anion Gap 4 (*) 5 - 15 (mmol/L) ??? Calcium 9.1 8.5 - 10.5 (mg/dL) ? ? Estimated GFR >60 >=60 Alfredito J Keeley is doing ok during the interim except for some cough, difficulty with breathingand choking sensation (could not breath!) without CP, now on inhalors and antibiotics for 6 days (Zithomax?). Just some chills and body aches but no fever. Her weight has been fluctuating between 153-158 lbs, down 5 lbs over the past year. No palpitations,CP, GI issues (excpet for some gas). No changes of skin or hairs and no heat or cold intolerance. NoHA or visual changes. No swelling in his legs or foot problem. Review of Systems ROS: Please see HPI, all others negative Patient Active Problem List Diagnoses Code ??? Constipation 564.00A ??? Dyslipidemia 272.4CR ??? GERD (gastroesophageal reflux disease) 530.81S ??? Hypertension 401.9AJ ??? Impaired fasting glucose 790.21 ??? Lung cancer 162.9M ??? S/p mitral valve repair V45.89FR ??? Multinodular goiter 241.1R ??? Osteoarthritis 715.90AN ??? Pancreatic cyst 577.2G ??? Prostate cancer 185A ??? Inguinal hernia recurrent unilateral 550.91B Current outpatient prescriptions ordered prior to encounter Medication Sig Dispense Refill ??? codeine-guaifenesin (GUAIFENESIN AC) 10-100 mg/5 mL liquid Take 5-10 mLs by mouth 3 times daily as needed for Cough. 120 mL 0 ??? furosemide (LASIX) 20 mg tablet 40 MG = 2 Tablet(s) PO Once daily and PRN swelling ??? potassium chloride (K-DUR) 10 mEq tablet 20meq, PO, Once daily ??? atenolol (TENORMIN) 50 mg tablet 50 MG = 1 Tablet(s), PO, Once daily ??? DOCUSATE SODIUM (COLACE ORAL) ??? terazosin (HYTRIN) 2 mg capsule 4 MG = 2 Capsule(s) PO QHS ??? Omeprazole 20 mg TbEC ??? naproxen sodium (ALEVE) 220 mg tablet Allergies Allergen Reactions ??? Cis Free Text Allergy Other (See Comments) Breads sneezing ??? Lactose Other (See Comments) Sneezing History Social History ??? Marital Status: Single Spouse Name: N/A Number of Children: N/A ??? Years of Education: N/A Social History Main Topics ??? Smoking status: Never Smoker ??? Smokeless tobacco: Never Used ??? Alcohol Use: No ??? Drug Use: No ??? Sexually Active: None Other Topics Concern ??? None Social History Narrative ??? 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 He is a nonsmoker and a nondrinker. FAMILY HISTORY Otherwise noncontributory Objective: Physical Exam BP 112/60 Pulse 72 Resp 15 Wt 69.854 kg (154 lb) Appearance: Non-obese, pleasant, NAD HEENT: PERRLA, EOMI, no lid lag or exophthalmos Neck: supple, no goiter or lymphadenopathy. Trachea shifted to the right s/p right lung resection. Chest: generalized rhonchi without wheeze. Heart: Normal S1, S2. No murmur Ext: normal skin texture and temperature no pitting edema Neuro: no weakness, normal reflexes Assessment: Reasonable control of toxic multinodular Goiter with left substernal hot nodules s/p I-131 Rx twice (in March & 2009) with good resolution of the nodules and normalized TFTs in 12/23 (without LT4 supplement). will cont. to monitor TFTs to make sure that TSH is not rising above 3.0, otherwise he will need a low dose LT4 supplement in the future. He also has impaired fasting Glucose (A1c 6.1% in 06/21-> down to 5.8% today), dyslipidemia, HTN and h/o prostate and lung cancer s/p resection in remission and back to work without problem. He is going to [place] during winter months (Nov-Jan). Plan: 1. Medication: Pt will continue all current medications, healthy diet & exercise as tolerated. 2. Lab: Already checked lab today as above. We will check lab in spring for TSH and 25vitamin D and will let him know test results during the interim. 3. RTC: Next visit in 12 months annually or earlier if needed. Will check TSH, A1c and BMP at the time (Quick draw lab before visit with us on the same day). We have reviewed our plan outlined above with the patient and patient verbalized understanding. All questions were answered and most of the time was spent on counseling about medication adjustment, thediagnostic and therapeutic decisions, and coordination of care. Oriana Jeff MD, PhD, FACE CC: ARABELLA ROB MD, MD documented in this encounter Plan of Treatment Upcoming Encounters Date Type Specialty Care Team Description 10/11/2022 Office Visit Dermatology Virgilio Mckeon MD [facility] DR CHRISTIANO HENSON-DERMAT OLOGY [place], [place] [address] (Wo rk) 10/16/2022 Office Visit Otolaryngology Frank Buchanan MD [facility] OTOLARYNGOLOGY D EPT. [place], [place] [address] (Wo rk) 11/29/2022 Appointment Hematology and Oncology 11/29/2022 Office Visit Radiation Oncology Emerald Leyva APRN [facility] RADIATION ONCOLO GY [place], [place] [address] (Wo rk) Scheduled Orders Name Type Priority Associated Diagnoses Order S chedule TSH Lab Routine Hyperthyroidism Expected: , Expires: 07/20/2013 Hemoglobin A1c Lab Routine DM (diabetes mellitus) Exp ected: 07/20/2012, Expires: 07/20/2013 documented as of this encounter Procedures Procedure Name Priority Date/Time Associated Diagnosis Comme nts T3 TOTAL Routine 07/20/2011 1:09 Hyperthyroidism Results f or this PM EDT procedure are i n the results section. TSH Routine 07/20/2011 1:09 Hyperthyroidism Results f or this PM EDT procedure are i n the results section. T4, FREE Routine 07/20/2011 1:09 Hyperthyroidism Results f or this PM EDT procedure are i n the results section. HEMOGLOBIN A1C Routine 07/20/2011 1:09 DM (diabetes mellitus) Results for this PM EDT procedure are i n the results section. BASIC METABOLIC Routine 07/20/2011 1:09 Hyperthyroidism Results for this PANEL (NON-FASTING) PM EDT DM (diabetes mellitus ) procedure are in the results section. documented in this encounter Results (ABNORMAL) Basic metabolic panel (07/20/2011 1:09 PM EDT) P athologist Signature Glucose Lvl 93 60 - 199 CERNER mg/dL MILLENNIUM Comment: Diabetes: >=200 mg/dL plus symp toms BUN 19 10 - 20 mg/dL CERNER MILLENNIU M Creatinine 1.04 0.80 - 1.50 mg/dL CERNER MILL ENNIUM [...] week). For patient s multiply eGFR by 1.2.MDRD equation has not been validated for pediatric pat ients and is only valid for patients with [...] Location / / Volume Laterality Blood specimen 07/20/2011 1:09 PM 011 1:18 (specimen) EDT PM EDT Oriana Jeff MD CHEMISTRY ORDERABLES Performing Organization Address City/State/ZIP Code Phon e Number [address] [facility] T3 (07/20/2011 1:09 PM EDT) athologist Signature T3, Total 98 75 - 170 CERNER ng/dL [facility] Specimen Anatomical Collection Method Collection Time Receive d Time (Source) Location / / Volume Laterality Blood specimen 07/20/2011 1:09 PM 011 1:18 (specimen) EDT PM EDT Oriana Jeff MD CHEMISTRY ORDERABLES Performing Organization Address City/[facility]/ZIP Code Phon e Number [address] [facility] T4, free (07/20/2011 1:09 PM EDT) athologist Signature Free T4 1.06 0.90 - 1.60 CERNER ng/dL [facility] Specimen Anatomical Collection Method Collection Time Receive d Time (Source) Location / / Volume Laterality Blood specimen 07/20/2011 1:09 PM 011 1:18 (specimen) EDT PM EDT Oriana Jeff MD CHEMISTRY ORDERABLES Performing Organization Address City/[facility]/ZIP Code Phon e Number [address] [facility] MILLENNIUM TSH (07/20/2011 1:09 PM EDT) athologist Signature TSH 1.50 0.27 - 4.20 CERNER mcIU/mL MILLENNIUM Specimen Anatomical Collection Method Collection Time Receive d Time (Source) Location / / Volume Laterality Blood specimen 07/20/2011 1:09 PM 011 1:18 (specimen) EDT PM EDT Oriana Jeff MD CHEMISTRY ORDERABLES Performing Organization Address City/State/ZIP Code Phon e Number [place] [phone] CERNER MILLENNIUM Hemoglobin A1c (07/20/2011 1:09 PM EDT) [facility] gist Method Time Signature Hemoglobin A1C 5.8 4.3 - 6.1 CERNER % MILLENNIUM Est [...] Additional resources are available on ADA website: ??http://professional.diabetes.org/gluc osecalculator.aspx Reference: Eliot FAJARDO, Abhishek J, Denisse R, et al. ??Tr anslating the A1C assay into estimated average glucose values. ??Diabetes Care 2008:31(8):5155-5545. Specimen Anatomical Collection Method Collection Time Receive d Time (Source) Location / / Volume Laterality Blood specimen 07/20/2011 1:09 PM 011 1:18 (specimen) EDT PM EDT Oriana Jeff MD CHEMISTRY ORDERABLES Performing Organization Address City/State/ZIP Code Phon e Number [place] [phone] [facility] documented in this encounter Visit Diagnoses Diagnosis DM (diabetes mellitus) Type II or unspecified type diabetes светлана litus without mention of complication, not stated as uncontrolled Hyperthyroidism Thyrotoxicosis without mention of goiter or other cause, without mention of thyrotoxic crisis or storm Fatigue Other malaise and fatigue documented in this encounter Care Teams Head Of Cytogenetics Relationship Specialty Start Date End Date Arabella Rob MD PCP - General 10/04/10 04/10/17 [facility] [place] [place] [address] documented as of this encounter
--- OUTSIDE RECORDS SUMMARY | 2022-10-09 16:20 | XMS_ITS | Encounter Summary ---
:1940 Author Organization [facility] [place] [address] Care Team Providers Name Role Phone Giorgio Cardona MD Primary Care Provider Encounter Details Date Type Department Care Team Description 05/31/2011 Abstract Orthopaedics at [facility] [place], [place] [address] Social History Tobacco Use Types Packs/Day [...] [facility] DR CHRISTIANO HENSON-DERMAT OLOGY [place], [place] [address] (Wo rk) 10/16/2022 Office Visit Otolaryngology Frank Buchanan MD [facility] OTOLARYNGOLOGY Sarah EPT. [place], [place] [address] (Wo rk) 11/29/2022 Appointment Hematology and Oncology 11/29/2022 Office Visit Radiation Oncology Emerald Leyva APRN [facility] DR RADIATION ONCOLO GY [place], [place] [address] (Wo rk) documented as of this encounter Visit Diagnoses Not on filedocumented in this encounter Care Teams Coater Smoking Pipe Relationship Specialty Start Date End Date Giorgio Cardona MD PCP - General 10/04/10 04/10/17 [facility] GENERAL [place] [address] documented as of this encounter
--- OUTSIDE RECORDS SUMMARY | 2022-10-09 16:20 | XMS_ITS | Encounter Summary ---
:1940 Author Organization [place] [place] [address] Care Team Providers Name Role Phone Giorgio Cardona MD Primary Care Provider Encounter Details Date Type Department Care Team Description 08/28/2011 Hospital Encounter XRay at [facility] [place] Post-nasal drip [address] [place] [address] [place] [phone] Social History Tobacco Use Types Packs/Day [...] every 4 hours as needed for Pain. fluticasone (FLONASE) 50 1 spray by Each Nare 16 g 12 1 09/18/2011 mcg/Actuation nasal spray route 2 times daily. codeine-guaifenesin Take 5-10 mLs by 120 mL 0 07/14/2011 09/18/2011 (GUAIFENESIN AC) 10-100 mouth 3 times daily mg/5 mL as needed for Cough. liquidIndications: Cough furosemide (LASIX) 20 mg 40 MG = [...] 10/11/2022 Office Visit Dermatology Virgilio Mckeon MD [facility] DR CHRISTIANO HENSON-DERMAT OLOGY [place], [place] [address] (Wo rk) 10/16/2022 Office Visit Otolaryngology Frank Buchanan MD [facility] OTOLARYNGOLOGY Sarah EPT. [place], [place] [address] (Wo rk) 11/29/2022 Appointment Hematology and Oncology 11/29/2022 Office Visit Radiation Oncology Emerald Leyva APRN [facility] RADIATION ONCCESAR [place], [place] [address] (Wo rk) documented as of this encounter Procedures Procedure Name Priority Date/Time Associated Diagnosis Comme nts XR CHEST PA AND Routine 08/28/2011 11:08 AM Post-nasal drip Re sults for this LATERAL EDT procedure are i n the results section. documented in this encounter Results XR chest routine PA & lateral (08/28/2011 11:08 AM EDT) Anatomical Region Laterality Modality Chest N/A Radiographic Imaging Specimen (Source) Anatomical Collection Method Collection Time Re ceived Time Location / / Volume Laterality 08/28/2011 11:08 AM EDT Impressions 08/29/2011 9:45 AM EDT IMPRESSION: ?? No significant change compared to prior exam. ??No acute cardiopulmonary pathology evident. ??Other findings, see above. Narrative 08/29/2011 9:45 AM EDT CHEST: INDICATION: ??Cough and history of lung cancer. TECHNIQUE: ??PA and lateral chest. COMPARISON: ??May 30, 2010. FINDINGS: ??Marked deviation of the trac hea to the right due to a large left thyroid mass/goiter seen on prior CT of February 14, 2011. ??Stable mild triangular opacity at the left heart border. ??Stab le blunting of the bilateral costophrenic angles. Small atelectasis/s car in the left lung base is seen again. ??Changes after cardiac valve stephen seema as before. Procedure Note Miriam Mancilla MD - 2010 CHEST: INDICATION: Cough and history of lung ca ncer. TECHNIQUE: PA and lateral chest. COMPARISON: May 30, 2010. FINDINGS: Marked deviation of the trache a to the right due to a large left thyroid mass/goiter seen on prior CT of February 14, 2011. Stable mild triangular opacity at the left heart border. Stable blunting of the bilateral costophrenic angles. Small atelectasis/s car in the left lung base is seen again. Changes after cardiac valve surge ry as before. IMPRESSION IMPRESSION: No significant change compared to prior exam. No acute cardiopulmonary pathology evident. Other findings, see juventino gold. Giorgio Cardona MD IMG DX ORDERABLES documented in this encounter Visit Diagnoses Diagnosis Post-nasal drip Postnasal drip documented in this encounter Care Teams Regulatory Technician Relationship Specialty Start Date End Date Giorgio Cardona MD PCP - General 10/04/10 04/10/17 [facility] [place] [address] documented as of this encounter
--- OUTSIDE RECORDS SUMMARY | 2022-10-09 16:20 | XMS_ITS | Encounter Summary ---
:1940 Author Organization [facility] [place] [address] Care Team Providers Name Role Phone Giorgio Cardona MD Primary Care Provider Reason for Visit Reason Onset Date Comments Labs Only 06/12/2011 Encounter Details Date Type Department Care Team Description 06/12/2011 Telephone Endocrinology at [facility] C Oriana Jeff, Labs Only [facility] [place] [address] [facility] [phone] END[place]CR[place]OLOGY [place], [place] [address] (Wo rk) Social History Tobacco Use Types Packs/Day Years Used Date Smoking Tobacco: Never Smokeless Tobacco: Never Alcohol Use Standard Drinks/Week Comments No 0 (1 standard drink = 0.6 oz pure alcoho l) Sex Assigned at Date Recorded Not on file documented as of this encounter Miscellaneous Notes Telephone Encounter - Oriana Jeff MD - 06/19/2011 7:00 PM EDT lab documented in this encounter Plan of Treatment Upcoming Encounters Date Type Specialty Care Team Description 10/11/2022 Office Visit Dermatology Virgilio Mckeon MD [facility] ER DR CHRISTIANO HENSON-DERMAT [place], [place] [address] (Wo rk) 10/16/2022 Office Visit Otolaryngology Frank Buchanan MD [facility] ER OTOLARYNGOLOGY Sarah EPT. [place], [place] [address] (Wo rk) 11/29/2022 Appointment Hematology and Oncology 11/29/2022 Office Visit Radiation Oncology Emerald Leyva APRN [facility] RADIATION ONCOLO GY [place], [place] [address] (Wo rk) documented as of this encounter Results (ABNORMAL) Basic metabolic panel [...] Jeff MD CHEMISTRY ORDERABLES Performing Organization Address City/[facility] Code Phon e Number [address] CERNER LocationaryENNIUM T3 (07/20/2011 1:09 PM EDT) P athologist Signature T3, Total 98 75 - 170 CERNER ng/dL MILLENNIUM Specimen Anatomical Collection Method Collection Time Receive d Time (Source) Location / / Volume Laterality Blood specimen 07/20/2011 1:09 PM 011 1:18 (specimen) EDT PM EDT Oriana Jeff MD CHEMISTRY ORDERABLES Performing Organization Address City/[facility] [place] [address] CERNER LocationaryENNIUM T4, free (07/20/2011 1:09 PM EDT) P athologist Signature Free T4 1.06 0.90 - 1.60 CERNER ng/dL MILLENNIUM Specimen Anatomical Collection Method Collection Time Receive d Time (Source) Location / / Volume Laterality Blood specimen 07/20/2011 1:09 PM 011 1:18 (specimen) EDT PM EDT Oriana Jeff MD CHEMISTRY ORDERABLES Performing Organization Address City/[facility]/[place]IP [place] [address] [facility] TSH (07/20/2011 1:09 PM EDT) P athologist Signature TSH 1.50 0.27 - 4.20 CERNER mcIU/mL [facility] Specimen Anatomical Collection Method Collection Time Receive d Time (Source) Location / / Volume Laterality Blood specimen 07/20/2011 1:09 PM 011 1:18 (specimen) EDT PM EDT Oriana Jeff MD CHEMISTRY ORDERABLES Performing Organization Address City/[facility]/ZIP Code Phon e Number [address] CERNER [facility] Hemoglobin A1c (07/20/2011 1:09 PM EDT) [facility] gist Method Time Signature Hemoglobin A1C [...] available on e ADA website: ??http://professional.diabetes.org/gluc osecalculator.aspx Reference: Eliot FAJARDO, Abhishek J, Denisse R, et al. ??Tr anslating the A1C assay into estimated average glucose values. ??Diabetes Care 2008:31(8):7473-3321. Specimen Anatomical Collection Method Collection Time Receive d Time (Source) Location / / Volume Laterality Blood specimen 07/20/2011 1:09 PM 011 1:18 (specimen) EDT PM EDT Oriana Jeff MD CHEMISTRY ORDERABLES Performing Organization Address City/State/[place] [address] [facility] documented in this encounter Visit Diagnoses Diagnosis Hyperthyroidism Thyrotoxicosis without mention of goiter or other cause, without mention of thyrotoxic crisis or storm DM (diabetes mellitus) Type II or unspecified type diabetes светлана litus without mention of complication, not stated as uncontrolled documented in this encounter Care Teams Guitar Repairer Relationship Specialty Start Date End Date Giorgio Cardona MD PCP - General 10/04/10 04/10/17 [facility] GENERAL [place] [address] documented as of this encounter
--- OUTSIDE RECORDS SUMMARY | 2022-10-09 16:20 | XMS_ITS | Encounter Summary ---
:1940 Author Organization [facility] [place] [address] Care Team Providers Name Role Phone Arabella Rob MD Primary Care Provider Encounter Details Date Type Department Care Team Description 11/30/2011 Surgery Main Operating Room Frank Guthrie, THYROIDECTOMY, INCL. Sharita Tazewell [facility] SUBSTERNAL, CERVICAL [facility] APPROACH (WRVU 17.62) [facility] [address] [address] [place] [address] [phone] (Wo rk) Social History Tobacco Use Types Packs/Day Years Used Date Smoking Tobacco: Never Smokeless Tobacco: Never Alcohol Use Standard Drinks/Week Comments No 0 (1 standard drink = 0.6 oz pure alcoho l) Sex Assigned at Date Recorded Not on file documented as of this encounter Last Filed Vital Signs Vital Sign Reading Time Taken Comments Blood Pressure 133/78 11/30/2011 1:11 PM EST Pulse 63 11/30/2011 1:11 PM EST Temperature 36.3 ??C (97.3 ??F) 11/30/2011 1:11 PM EST Respiratory Rate 16 11/30/2011 1:11 PM EST Oxygen Saturation 98% 11/30/2011 1:11 PM EST Inhaled Oxygen Concentration - - [...] route 2 17 g 12 201002/15/2012 mcg/Actuation Watch Hill times daily. One spray each nostril each [...] Walter RN - 12/01/2011 5:20 AM EST [id number] Tele Note- patient denies CP/SOB/N/V, VSS, No S/S of Cardiac or Respiratory distress, see Cardiac Monitoring Report. HR 62-72, Rare PVCs. Will continue to monitor patient status. KA Lindsay Walter RN - 11/30/2011 11:27 PM EST 2250 patient admitted to [facility] from PACU s/p Thyroidectomy with AISSATOU on R placement. Patient A&OX3, denies N/V/CP/SOB, and pain. Drsg to throat CDI, AISSATOU drsg CDI, HRR, Lungs CTA bilaterally, patient on 2L NC SpO2 @ 99%, NS @100 into PIV on L, SALES ARCHITECT Dilaudid set 0.2/7/5, patient using appropriately, abdomen soft round non-tender, hypoactive BS, no flatus, FC patent draining C/Y urine, +2 PPP, SCD's sleeves on but no pump upon admit - ordered. Patient resting comfortably, eyes closed , patient orientedto room, call light in reach, pastry cook applied. Will continue to monitor patient status. [...] EST From clinic records: Reason for Visit: Katlin Mina is a 71 y.o. male who [...] on physical exam. ROS: No H/O asthma, NM, stroke, pulmonary embolus or phlebitis. Comprehensive review [...] PO QHS ??? Mometasone (NASONEX) 50 mcg/Actuation Watch Hill by Nasal route 2 times daily. One [...] agrees to proceed. Will sign in through [facility]. Consent is signed. Frank Guthrie MD - 11/29/2011 10:24 AM EST H&P INTERVAL NOTE - 24 HOUR UPDATE I have reviewed the pre-procedure H&P completed by Arabella Rob MD on 10/30/11. Condition unchanged since H&P originally performed. documented in this encounter Procedure Notes Provider, Scanning - 12/03/2011 3:29 PM ESTAssociated Order(s): SCAN DOC: CONICAL MIXER; SCAN DOC: CONICAL MIXER documented in this encounter Miscellaneous Notes Miscellaneous - Provider, Scanning - 12/03/2011 3:29 PM EST Discharge Summary - Seven Long MD - 12/01/2011 7:38 AM EST Inpatient - Discharge Summary Patient Name: Katlin Mina Patient Age: 71 y.o. Birthdate: 1940 [...] features. 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 [id number]; KRAS negative, EGFR negative --09/2010: CT scan [...] medications, unchanged Details Mometasone (NASONEX) 50 mcg/Actuation Watch Hill by Nasal route 2 times daily. One [...] please call the General Surgery nurse at [phone], since this may mean that you need morecalcium. Follow-up Appointment Will be scheduled with Dr. Guthrie in 6 weeks Date and time as well as any required labs will be mailed to you Please call [phone] to confirm date and time of your [...] by calcium supplementation. Phone number for questions: [phone] before 5 PM weekdays [phone] after 5 PM and on weekends/holidays Future Appointments and Orders Future Appointments: Provider: Department: Dept Phone: Center: 12/07/2011 9:00 AM Becka Dean APRN [facility] Radiation Oncology [phone] [facility] 04/18/2012 9:00 AM Arabella Rob MD [address] [phone] [facility] Signed: SEVEN LONG MD 12/01/2011 Med Student Progress Note - Ting Adams - 12/01/2011 4:24 AM EST General Surgery - Progress Note Patient Name: Katlin Mina : [id number] MR#: [id number] 11/30/2011 Hospital Day 1 day ID: Mr. Katlin Mina is a 71 y.o. male with a history of multinodular goiter with an enlarged thyroid gland extending below the clavicle bilaterally, now POD#1, s/p total thyroidectomy with central compartment lymph node dissection. 24 hour events: Tolerated procedure well, extubated in OR Transferred from PACU to floor without incident No major issues overnight Pain well controlled with Dilaudid SALES ARCHITECT Subjective: Pt is doing well this morning lying in bed. He reports some throat tenderness but says that it is well controlled when he remembers to press his SALES ARCHITECT button. He denies any N/V associated with [...] in the last 168 hours Assessment/Plan: Mr. Katlin Mina is a 71 y.o. male with a history of multinodular goiter with an enlarged thyroid gland extending below the clavicle bilaterally, now POD#1, s/p total thyroidectomy with central compartment lymph node dissection. Neuro: Dilaudid SALES ARCHITECT and Tylenol 650mg Q4H PRN for pain control. Discontinue SALES ARCHITECT today and switch to PO Dilaudid. CV: [...] for GI ppx. Code status: Full code Ting Bryan [facility] III 12/01/2011 OR Attestation - Frank Guthrie MD - 11/30/2011 6:01 PM EST Attestation: Case Date: 11/30/2011 I was present and I participated during the entire procedure (does not need to include opening and closing). FRANK GUTHRIE MD 11/30/2011 Brief Op Note - Frank Guthrie MD - 11/30/2011 6:00 PM EST Brief Operative Note Patient Name: Katlin Mina : [id number] MR#: [id number] Case Date: 11/30/2011 Surgeon: Surgeon(s) and Role: [...] Long MD - 11/30/2011 5:42 AM EST [facility] Operative Note Patient Name: Katlin Mina : [id number] MR#: [id number] Case Date: 11/30/2011 Surgeon: Surgeon(s) and Role: [...] [facility] DR CHRISTIANO HENSON-DERMAT OLOGY [place], [place] [address] (Wo rk) 10/16/2022 Office Visit Otolaryngology Frank Buchanan MD [facility] OTOLARYNGOLOGY Sarah EPT. [place], [place] [address] (Wo rk) 11/29/2022 Appointment Hematology and Oncology 11/29/2022 Office Visit Radiation Oncology Emerald Leyva APRN [facility] RADIATION ONCCESAR GY [place], [place] [address] (Wo rk) documented as of this encounter Procedures Procedure Name Priority Date/Time Associated Comments Diagnosis CONICAL MIXER SCAN 12/03/2011 3:29 PM R esults for [...] documented in this encounter Results SCAN DOC: CONICAL MIXER (12/03/2011 3:29 PM EST) Anatomical Region Laterality Modality Other Narrative 12/04/2011 10:38 AM EST Procedure Note Provider, Scanning - 12/03/2011 3:29 PM EST Scanning Provider MEDIA MGR SCAN EXT ORDR/RSLT (ABNORMAL) DIFFERENTIAL, AUTOMATED (12/01/2011 5:12 AM EST) [facility] Method Time Signature Neutrophils % 75.1 (H) [...] City/State/ZIP Code Phon e Number [place] [phone] CERNER MILLENNIUM (ABNORMAL) Basic Metabolic Panel (non-fasting) (12/01/2011 5:12 AM EST) P athologist Signature Glucose Lvl 122 60 - [...] Guthrie MD CHEMISTRY ORDERABLES Performing Organization Address City/[facility]/ZIP Code Phon e Number [address] CERNER MILLENNIUM (ABNORMAL) CBC [...] Guthrie MD HEMATOLOGY ORDERABLES Performing Organization Address City/[facility]/ZIP Code Phon e Number [address] CERNER MILLENNIUM (ABNORMAL) DIFFERENTIAL, [...] Organization Address City/State/[place] [address] CERNER MILLENNIUM (ABNORMAL) Phosphorus (11/30/2011 7:15 PM EST) P athologist Signature Phosphorus 2.3 (L) 2.5 - 4.5 CERNER mg/dL MILLENNIUM Specimen Anatomical Collection Method Collection Time Receive d Time (Source) Location / / Volume Laterality Blood specimen 11/30/2011 7:15 PM 012 7:25 (specimen) EST PM EST Frank Guthrie MD CHEMISTRY ORDERABLES Performing Organization Address City/[facility]/ZIP [facility] [place] [place] [address] CERNER MILLENNIUM Magnesium (11/30/2011 7:15 PM EST) P athologist Signature Magnesium 0.75 0.69 - 1.07 CERNER mmol/L MILLENNIUM Specimen Anatomical Collection Method Collection Time Receive d Time (Source) Location / / Volume Laterality Blood specimen 11/30/2011 7:15 PM 012 7:25 (specimen) EST PM EST Frank Guthrie MD CHEMISTRY ORDERABLES Performing Organization Address City/[facility] [address] CERNER MILLENNIUM Basic Metabolic [...] Organization Address City/State/[place] [address] MARIAMA MAST (ABNORMAL) CBC (with Diff) (11/30/2011 7:15 PM [...] Organization Address City/State/[place] [address] [facility] Specimen to Pathology (surgical or derm) (11/30/2011 5:41 PM EST) Specimen Anatomical Collection Method Collection Time Receive d Time (Source) Location / / Volume Laterality AP Specimen 11/30/2011 5:41 PM 2 5:41 EST PM EST Narrative [facility] - 11/30/2011 5:[address] Specimen requisition ordered. ??Separate Pathology report to follow Frank Guthrie MD PATHOLOGY/CYTOLOGY ORDERABLE S Performing Organization Address City/[facility]/ZIP [facility] [place] [address] [facility] SURGICAL PATHOLOGY REPORT (11/30/2011 5:28 PM EST) Component Value Ref Test Analysis Performed At [facility] Range Method Time Signature Surgical CERNER Pathology ? [facility] Report ? Provider: ?? FRANK GUTHRIE Pt. Name: ?? KATLIN BENJAMIN ? Acc #: ?[id number] ?Pt. MRN: ?[id number] ? Col Date: ?? 2 ? /Sex: [...] le smaller, similar-appearing ? nodules. ? Sections/Processing: ?Bedspread Folder sections are submitted in twelve ? cassettes. ??( R12) ? B - Labeled/Fixative: ? Right lobe of thyroid, fr esh. ? Qty/Size/Weight: ?Single, 4.5 x 3.3 x 3. 3 cm, 15 g. ? Tissue Description: ?External Surface: ?Smooth, tense, avendaño-bro wn. ? [facility] ? Provider: ?? FRANK GUTHRIE Pt. Name: ?? KATLIN BENJAMIN ? Acc #: ?[id number] ?Pt. MRN: ?[id number] ? Col Date: ?? 2 ? /Sex: [...] Organization Address City/State/[place] [address] [facility] Specimen to Pathology (surgical or derm) [...] Address City/State/ZIP [place] [address] CERNER MILLENNIUM (ABNORMAL) BLOOD [...] Comment: Total Hemoglobin (in gm/dL) ?Based on [facility] Hematology ran ges: ?Age ?Referen ce Range [...] City/State/ZIP Code Phon e Number [place] [phone] [facility] documented in this encounter Visit Diagnoses Not on filedocumented in this encounter Administered Medications Inactive Administered Medications - up to 3 most recent administrations Medication Order MAR Action Action Date Dose Rate Site BUpivacaine-epiNEPHrine Given 11/30/2011 4:27 PM 25 mg 19- Surgical Site 0.25 %-1:200,000 EST injection ONCE PRN, Starting on Alisha 11/30/11 at 1627, Until Alisha 11/30/11 at 2255, Intra-Operative (Intra-Procedure), Routine ceFAZolin (ANCEF) 1g in dextrose 5% 50mL Given 11/30/2011 3:36 PM EST 1 g 1,000 mg (1 g), Intravenous, ONCE, 1 dose, On Alisha 11/30/11 at 1330, Administer over 30 Minutes, Redose after 4 hours., Day of Surgery (Day of Procedure) ceFAZolin (ANCEF) 2g in dextrose 5% Given by Other 11/30/2011 1:30 PM EST 2 g 100mL 2 g, Intravenous, ONCE, 1 dose, [...] 11/30/2011 7:[address] mL/hr mg/mL SALES ARCHITECT 30 mL Intravenous, SALES ARCHITECT ONLY, Starting on Alisha 11/30/11 at 1915, Until Sun12/01/11 at 0526 HYDROmorphone (DILAUDID) tablet 2 mg Given 12/01/2011 7:03 AM EST 2 mg 2 mg, Oral, EVERY 4 HOURS PRN, Starting on Sun12/01/11 at 0527, Until Sun12/01/11 at 1601, Pain, Routine HYDROmorphone (PF) (DILAUDID) 2 mg/mL Given 11/30/2011 6:[address] 0.2 mg injection 0.2-0.4 mg 0.2-0.4 mg, Intravenous, EVERY 5 MIN PRN, Starting on Alisha 11/30/11 at 1842, Until Alisha 11/30/11 [...] Intravenous, CONTINUOUS, Starting on Alisha 11/30/11 at 1330, Until Alisha 11/30/11 at 2255, Day of Surgery (Day of [...] on Sun11/30/11 at 2330, Until Discontinued, Routine ondansetron (ZOFRAN) injection 4 mg Given 12/01/2011 7:34 AM EST 4 mg 4 mg, Intravenous, EVERY 8 HOURS PRN, Starting on Sun11/30/11 at 2305, Until Sun12/01/11 at 1601, Nausea sodium chloride 0.9 % flush 5 mL Given 11/30/2011 11:30 PM EST 5 mLs 5 mL, Intravenous, EVERY 12 HOURS, First dose on Alisha 11/30/11 at 2330, Until Discontinued sodium chloride 0.9% infusion New Bag 12/01/2011 4:22 AM EST 1,000 mLs 100 mL/hr 1,000 mL, at 100 mL/hr, Intravenous, CONTINUOUS, Starting on Sun11/30/11 at 1915, Until Sun12/01/11 at 0526 New [...] (porcine) subcutaneous injection 5,000 Units (CANCEL ED) 2341 (Given - Provider: Lindsay Hancock RN) 5,000 Units, Subcutaneous, EVERY 12 HOUR S SCHEDULED (2 times per day), First dose on Sun11/30/11 at 2330, Until Discontinued, Routine levothyroxine (SYNTHROID) tablet 125 mcg 0600 (Given - Provider: Lindsya Hancock RN) 125 mcg, Oral, EVERY MORNING, First dose on Sun12/01/11 at 0600, Until Discontinued, STAT metoprolol (LOPRESSOR) injection 5 mg (CANCELED) 194 (Given - Provider: Klaus Cm RN)234 (Given - Provider: Lindsay Hancock RN - Comment: 137/76 HR 69) 0439 (Given - Provider: Lindsay Hancock RN - Comment: 115/68 HR 64) 5 mg, Intravenous, EVERY 4 HOURS, First dose on Alisha 11/30/11 at 1945, Until Discontinued, Hold HR < 60, sbp < 90, Routine montelukast (SINGULAIR) tablet 10 mg (CANCELED) 234 (Given - Provider: Lindsay Hancock RN) 10 mg, Oral, NIGHTLY, First dose on Sun11/30/11 at 2330, Until Discontinued, Routine sodium chloride 0.9 % flush 5 mL (CANCELED) 2330 (Given - Provider: Lindsay Hancock RN) 1130 (Due) 5 mL, Intravenous, EVERY 12 HOURS, First dose on Sun11/30/11 at 2330, Until Discontinued, Routine Continuous Medication Order 11/29/2011 11/30/2011 12/01/2011 HYDROmorphone (DILAUDID) 1 mg/mL SALES ARCHITECT 30 mL (CANCELED) 1915 (New Syringe/Cartridge - Provider: Vadim Gurrola RN) 0704 (Stopped - Provider: Lindsay Hancock RN) Intravenous, SALES ARCHITECT ONLY, Starting Alisha 11/30/11 at 1915, Until F ri 12/01/11 at 0526 lactated ringers infusion 1,000 mL (CANCELED) 1330 (New Bag - Provider: Yane Cervantes RN) 1,000 mL, at 100 mL/hr, Intravenous, CON TINUOUS, Starting Alisha 11/30/11 at 1330, Until Alisha 11/30/11 at 2255, Day of Surgery (Day of Procedure) sodium chloride 0.9% infusion (CANCELED) 1915 (New Bag - Provider: Vadim Gurrola RN) 0422 (New Bag - Provider: Lindsay baeza RN) 1,000 mL, at 100 mL/hr, Intravenous, CON TINUOUS, Starting Alisha 11/30/11 at 1915, Until 12/01/11 at 0526 PRN Medication Order 11/29/2011 11/30/2011 12/01/2011 acetaminophen (TYLENOL) tablet 650 mg 650 mg, Oral, EVERY 4 HOURS PRN, Startin g Alisha 11/30/11 at 2305, Until 12/01/11 at 1601, Pain, Maximum dose of acetaminophen is 4000 mg from all sources in 24 hours., Routine BUpivacaine-epiNEPHrine 0.25 %-1:200,000 injection (CANCELED ) 1627 (Given - Provider: Frank Guthrie MD - Comment: 10ml given total at neck incision site) ONCE PRN, Starting Alisha 11/30/11 at 1627, Until Alisha 11/30/11 at 2255, Intra- Operative (Intra-Procedure), Routine HYDROmorphone (DILAUDID) tablet 2 mg 0703 (Given - Provider: Lindsay Hancock RN - Comment: SALES ARCHITECT d/c) 2 mg, Oral, EVERY 4 HOURS PRN, Starting 12/01/11 at 0527, Until 12/01/11 at 1601, Pain, Routine HYDROmorphone (PF) (DILAUDID) 2 mg/mL injection 0.2-0.4 mg ( CANCELED) 1850 (Given - Provider: Vadim Gurrola RN)185 (Given [...] mg (CANCELED) 0734 (Given - Provider: Gisell Sanches RN) 4 mg, Intravenous, EVERY 8 HOURS PRN, St arting Alisha 11/30/11 at 2305, Until 12/01/11 at 1601, Nausea, Routine documented in this encounter Care Teams Hot Mill Supervisor Relationship Specialty Start Date End Date Arabella Rob MD PCP - General 10/04/10 04/10/17 [facility] [place] [address] documented as of this encounter
--- OUTSIDE RECORDS SUMMARY | 2022-10-09 16:20 | XMS_ITS | Encounter Summary ---
:1940 Author Organization [place] [place] [address] Care Team Providers Name Role Phone Giorgio Cardona MD Primary Care Provider Reason for Visit Reason Comments Right Knee Pain injection Encounter Details Date Type Department Care Team Description 06/01/2011 Office Visit Orthopaedics at [facility] Ruma, OA (osteoarthritis) of knee; [facility] Alessia Funes APRN [place] [address] CENTER [phone] [place] [address] Social History Tobacco Use Types Packs/Day Years Used Date Smoking Tobacco: Never Smokeless Tobacco: Never Alcohol Use Standard Drinks/Week Comments No 0 (1 standard drink = 0.6 oz pure alcoho l) Sex Assigned at Date Recorded Not on file documented as of this encounter Last Filed Vital Signs Vital Sign Reading Time Taken Comments Blood Pressure 136/71 06/01/2011 8:02 AM EDT Pulse 58 06/01/2011 8:02 AM EDT Temperature - - Respiratory Rate - - Oxygen Saturation - - Inhaled Oxygen Concentration - - Weight 67.6 kg (149 lb) 06/01/2011 8:02 AM EDT Height 168.9 cm (5' 6.5) 06/01/2011 8:02 AM EDT Body Mass Index 23.69 06/01/2011 8:02 AM EDT documented in this encounter Progress Notes Ruma Alessia Funes, LAYER OUT - 06/01/2011 8:38 AM EDT DATE OF SERVICE: 06/01/2011 CHIEF COMPLAINT: Right knee pain. Mr. Mina reports to clinic today requesting a right knee steroid injection. He is considering going on to knee arthroplasty, finishing up on some dental work currently. He is going to call us when he is ready to proceed. His knee aches all over, swells mildly, clicks, does not lock, nor give-way. He complains of a tingling on the medial side of each alonzo bilaterally. He has had his blood sugars checked, he is not sure what that is about. It is symmetrical. He denies any back pain currently. He is very active man. He continues to paint, and climb ladders. He is hoping to be more comfortable. He is using no assistive device to get around. He takes Aleve, he states actually not for the knee, but I believe he said for his prostate, which is all that is what I believe me he told me, he takes it for. OBSERVED: The patient reports to clinic. He is in no apparent distress. There is little antalgia favoring his gait. His right knee range of motion is +5 to 125 today. The knee is stable to varus and valgus stress. The medial joint line is exquisitely tender, lateral not so. The knee is stable in the AP plane. Michelle's maneuver was avoided, so as not to provoke the knee. There is no heat or erythema in it. He has mild patellar crepitance with motion. Sensation was normal for knee throughout the lower extremities to light touch. Peripheral pulses 2+. X-RAY: None today. ASSESSMENT: Seeking right knee steroid injection. PLAN: Goals risks and concerns of a steroid injection to the knee were reviewed. The patient realizes that the steroid may provide temporary relief of their knee pain. The patient is not allergic to any medications to be used today. The patient was positioned for comfort. Theright knee was cleansed with Chloro- prep solution. A lateral peripatellar approach was utilized. I infiltrated the soft tissue with 5cc of Lidocaine without epinephrine. After verifying placement in the joint I then instilled 40 mg of Kenelog followed by 5ccof Bupivicaine. A band-aid was placed. The patient will keep the knee dry overnight, no shower until tomorrow, no pool or water submersion for 48 hours. Effects of the cortisone may take up to 7-10 days. The patient may not repeat the injection for at least 3 months. They will call if they experience any fever, chills or drainage from the needle insertion site which may indicate infection. The patient is in agreement with this plan. Drop text. FIND KNEE INJECTION!!!!!TEXT gone. documented in this encounter Plan of Treatment Upcoming Encounters Date Type Specialty Care Team Description 10/11/2022 Office Visit Dermatology Virgilio Mckeon MD [facility] DR CHRISTIANO HENSON-DERMAT OLOGY [place], [place] [address] (Wo rk) 10/16/2022 Office Visit Otolaryngology Frank Buchanan MD [facility] OTOLARYNGOLOGY Sarah EPT. [place], [place] [address] (Wo rk) 11/29/2022 Appointment Hematology and Oncology 11/29/2022 Office Visit Radiation Oncology Emerald Leyva APRN [facility] RADIATION ONCOLO GY [place], [place] [address] (Wo rk) documented as of this encounter Visit Diagnoses Diagnosis OA (osteoarthritis) of knee Osteoarthrosis, unspecified whether gene ralized or localized, lower leg Osteoarthritis of knee Osteoarthrosis, unspecified whether gene ralized or localized, lower leg documented in this encounter Care Teams Bass Guitar Teacher Relationship Specialty Start Date End Date Giorgio Cardona MD PCP - General 10/04/10 04/10/17 [facility] GENERAL [place] [address] documented as of this encounter
--- OUTSIDE RECORDS SUMMARY | 2022-10-09 16:20 | XMS_ITS | Encounter Summary ---
:1940 Author Organization [facility] Address [facility] [place] [address] Care Team Providers Name Role Phone Giorgio Cardona MD Primary Care Provider Reason for Visit Reason Comments Follow-up Apnea pt has not slept for 3 weeks Encounter Details Date Type Department Care Team Description 07/20/2011 Office Visit Internal Medicine at [facility] Sandra Seth APRN [facility] Sarah [facility] [address] [place] [address] GENERAL INTERNAL [phone] MEDICINE [place], [place] [address] (Wo rk) Social History Tobacco Use Types Packs/Day Years Used Date Smoking Tobacco: Never Smokeless Tobacco: Never Alcohol Use Standard Drinks/Week Comments No 0 (1 standard drink = 0.6 oz pure alcoho l) Sex Assigned at Date Recorded Not on file documented as of this encounter Last Filed Vital Signs Vital Sign Reading Time Taken Comments Blood Pressure 112/60 07/20/2011 3:10 PM EDT Pulse 72 07/20/2011 3:10 PM EDT Temperature - - Respiratory Rate - - Oxygen Saturation - - Inhaled Oxygen Concentration - - Weight 69.9 kg (154 lb) 07/20/2011 3:10 PM EDT Height 162.6 cm (5' 4) 07/20/2011 3:10 PM EDT Body Mass Index 26.43 07/20/2011 3:10 PM EDT documented in this encounter Patient Instructions Patient InstructionsFlaherty, Sandra, KICK PRESS SETTER - 07/20/2011 3:53 PM EDT Continue drinking between 6-8 glasses water each day Mucinex (over the counter) once per day Continue with antibiotic until complete documented in this encounter Plan of Treatment Upcoming Encounters Date Type Specialty Care Team Description 10/11/2022 Office Visit Dermatology Virgilio Mckeon MD [facility] DR CHRISTIANO HENSON-DERMAT OLOGY [place], [place] [address] (Wo rk) 10/16/2022 Office Visit Otolaryngology Frank Buchanan MD [facility] OTOLARYNGOLOGY Sarah EPT. [place], [place] [address] (Wo rk) 11/29/2022 Appointment Hematology and Oncology 11/29/2022 Office Visit Radiation Oncology Emerald Leyva APRN [facility] RADIATION ONCOLO GY [place], [place] [address] (Wo rk) documented as of this encounter Visit Diagnoses Not on filedocumented in this encounter Care Teams Manager Support Services Relationship Specialty Start Date End Date Giorgio Cardona MD PCP - General 10/04/10 04/10/17 [facility] GENER[place] [address] documented as of this encounter
--- OUTSIDE RECORDS SUMMARY | 2022-10-09 16:20 | XMS_ITS | Encounter Summary ---
:1940 Author Organization [facility] [place] [address] Care Team Providers Name Role Phone Giorgio Cardona MD Primary Care Provider Encounter Details Date Type Department Care Team Description 11/23/2011 Office [place] [address] Anesthesia Record Procedure Summary Procedure Name Responsible Anesthesia Start Anesthesia Stop Time Anesthesiologist Time THYROIDECTOMY, Mane Raya MD 11/30/11 1458 11/30/11 18 32 INCL. SUBSTERNAL, CERVICAL APPROACH (WRVU 17.62) (Neck) Events Date Time Event Comment 11/30/2011 1458 Start 1832 Stop No medications on file. Agents No agents on file. Blood No blood administrations on file. Lines, Drains, and Airways Type Details Placement Removal PIV 11/30/11; 1332; 11/30/11 1332 by 12/01/111948 b y 12/01/11; 1948 Yane Cervantes RN Hamill, Mar y E, RN PIV 11/30/11; 1520; 11/30/11 1520 by 12/01/11 194 b y 12/01/11; 1948 Amita Cerda Hamill, Mar y E, RN RN Urethral Catheter 11/30/11; 1530; 11/30/11 1530 by 12/01/11 0600 by indwelling double lumen WalhallaAmita butcher Bra ley, Sarah B, SHAWNA catheter; latex; 16; RN inserted (by Dr. Guthrie); 1; drainage bag to dependent drainage; 12/01/11; 0600 (RETIRED) Arterial 20 11/30/11 1530 by 12/01/11 194 9 by LIne Amita Cerda Hamill, Mar y E, RN RN Incision 11/30/11; 1556; neck; 11/30/11 1556 by 07/10/22 1715 by 07/10/22 (LDA cleanup Amita Cerda, Mulfrederick r, Dierdre L utility RA#[id number]); 1715 RN (LDA cleanup utility RA#[id number]) Drain/Device Site 11/30/11; 1717; Right; 11/30/11 1717 by 1949 by neck; collapsible closed Amita Cerda, Sharita Bunn, RN device; 12/01/11; 194 RN documented in this encounter Social History [facility] HEN[facility]MAT OLOGY [place], [place] [address] (Wo rk) 10/16/2022 Office Visit Otolaryngology Frank Buchanan MD [facility] OTOLARYNGOLOGY Sarah EPT. [place], [place] [address] (Wo rk) 11/29/2022 Appointment Hematology and Oncology 11/29/2022 Office Visit Radiation Oncology Emerald Leyva APRN [facility] RADIATION ONCCESAR GY [place], [place] [address] (Wo rk) documented as of this encounter Visit Diagnoses Not on filedocumented in this encounter Care Teams Panel Raiser Operator Relationship Specialty Start Date End Date Giorgio Cardona MD PCP - General 10/04/10 04/10/17 [facility] [place] [address] documented as of this encounter
--- OUTSIDE RECORDS SUMMARY | 2022-10-09 16:20 | XMS_ITS | Encounter Summary ---
:1940 Author Organization [facility] Address [facility] [place] [address] Care Team Providers Name Role Phone Giorgio Cardona MD Primary Care Provider Reason for Visit Reason Comments Follow-up Encounter Details Date Type Department Care Team Description 03/28/2011 Hospital Encounter Hematology and Oncology Lois Seymour MD Lung cancer at [facility] [address] [place] [address] SURGERY [phone] [place], [place] [address] (Wo rk) Social History Tobacco Use Types Packs/Day Years Used Date Smoking Tobacco: Never Alcohol Use Standard Drinks/Week Comments No 0 (1 standard drink = 0.6 oz pure alcoho l) Sex Assigned at Date Recorded Not on file documented as of this encounter Last Filed Vital Signs Vital Sign Reading Time Taken Comments Blood Pressure 117/67 03/28/2011 12:50 PM EDT Pulse 70 03/28/2011 12:50 PM EDT Temperature 36.7 ??C (98.1 ??F) 03/28/2011 12:50 PM EDT Respiratory Rate 16 03/28/2011 12:50 PM EDT Oxygen Saturation 98% 03/28/2011 12:50 PM EDT Inhaled Oxygen Concentration - - Weight 70 kg (154 lb 5.2 oz) 03/28/2011 12:50 PM EDT Height 170 cm (5' 6.93) 03/28/2011 12:50 PM EDT Body Mass Index 24.22 03/28/2011 12:50 PM EDT documented in this encounter Medications at Time of Discharge Medication Sig Dispensed Refills Start Date End Date OXYcodone-acetaminophen Take 1 tablet by 20 tablet 0 201005/18/2011 (PERCOCET) 5-325 mg per mouth every 4 hours tablet as needed for Pain. furosemide (LASIX) 20 mg 40 MG = 2 Tablet(s) 0 07/09/2012 tablet PO Once daily and PRN swelling potassium chloride 20meq, PO, Once daily 0 201010/30/2011 (K-DUR) 10 mEq tablet atenolol (TENORMIN) 50 50 MG = 1 Tablet(s), 0 12/15/2011 mg tablet PO, Once daily terazosin (HYTRIN) 2 mg 4 MG = 2 Capsule(s) 0 07/09/2012 capsule PO QHS senna (SENNA-GEN) 8.6 mg 0 01/27/2011 05/18/2011 tablet documented as of this encounter Progress Notes Lois Jacome MD - 03/28/2011 1:28 PM [place] [address] [id number] 1938 Thoracic Surgery Established Patient Visit Primary Care Provider: Giorgio Cardona MD 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 Here is here todayin follow up. Mr. Mina reports that he is breathing better than ever. His primary physical limitation is his right knee. He is working, playing music, and feeling well. Procedure 02/09/2010: Bronchoscopy, diagnostic thoracoscopy, VATS lobectomy, mediastinal lymphadenectomy, and intercostal nerve block. Pathology: 1.1 cm adenocarcinoma, invasive, with peripheral LIANET features. Well differentiated. Negative margins. 0/11 lymph nodes positive for malignancy. Studies to date: CXR 12/30/09: 1 cm nodule in the right [id number] lung. Chest CT 01/04/10: Approximately 13 mm ground glass nodular opacity in the peripheral right lower lobe. Although this may relate to an infectious or inflammatory process, in the absence of pulmonary symptoms, this is worrisome for a bronchoalveolar cell carcinoma. Indeterminate subcentimeter subpleural nodule medial right lower lobe. Partially imaged heterogeneous left thyroid mass with substernal extension presumably represents patient's known multinodular thyroid goiter. Benign left adrenal adenoma. Two left renal cysts. Prosthetic mitral valve and coronary arterial calcification. Chest CT 09/19/10: Status-post right lower lobectomy. Stable triangular opacity in the right lateral costophrenic angle is indeterminate in nature, attention on follow-up is recommended. Multi-nodular goiter. Incompletely evaluated hypodense lesion in the head of the pancreas. The patient is scheduled to undergo an abdominal CT for further evaluation in 10/21. Stable left adrenal nodule. 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 Biopsy 01/13/10: Lung, Right, CT-guided needle core biopsy and touch imprint cytology: Atypical brochioloalveolar cell proliferations, suspicious for brochioloalveolar carcinoma. Mediastinal Staging/EUS: MRI of head 02/01/10: No evidence of metastasis. Echo: PFT 01/25/10: FVC 2.50 (75%), FEV1 1.46 (60%), DLCO 80 Past medical history is significant for: 1. HTN 2. s/p mitral valve repair (Dr. Thomas) 3. GERD, on omeprazole 4. hx of ulcers 5. hx of colonoscopy, one polyp 6. thyroid goiter; no thyroid meds 7. arthritis in shoulders, knees, hips 8. depression - not medicated; started 5-10 yrs ago. Worse in the mornings, better after about 2 pm daily. 9. prostate cancer, s/p XRT 2 yrs ago Past surgical history includes: 1. tonsillectomy as a child 2. mitral valve surgery 2003 3. three hernia repairs (two inguinal, one umbilical) Medications: Outpatient prescriptions marked as taking for the 03/28/11 encounter (Hospital Encounter) with LOIS JACOME Sig Dispense Refill ??? furosemide (LASIX) 20 mg tablet 40 [...] ??? naproxen sodium (ALEVE) 220 mg tablet ??? senna (SENNA-GEN) 8.6 mg tablet Allergies: No Known Allergies Family History: Mother alive at 103, asthma, osteoporosis. Father at age 55, smoked too much, heart problems. Social History: [place]. 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 . Five children and seven grandkids. One daughter with viral respiratory problems. 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 No alcohol. Smoking History: Never smoker. Review of Systems: General: Denies fatigue, weight loss, fever, chills, night sweats. Neuro: Denies seizure, TIA, CVA, neurologic deficits including tremor, incoordination, paresthesias, difficulties with memory or speech, sensory or motor disturbances, or muscular coordination. Psychiatric: Denies emotional problems, anxiety, depression, previous psychiatric care, unusual perceptions, hallucinations, and drug dependence. Cardiovascular: Denies arrythmias, CAD,HTN, family history of cardiac disease, CHF, hyperlipidemia. Respiratory: Denies asthma, COPD, emphysema, cough, dyspnea, wheezing, stridor, hemoptysis,respiratory infection, TB or exposure to TB. GI: Denies ulcer disease, GI bleed, dysphagia, abdominal pain, heartburn, nausea, vomiting, hematemesis, jaundice, constipation, diarrhea, change in bowel habits. : Denies urgency, frequency, dysuria, nocturia, polyuria, oliguria, stones, UTI, nephritis, incontinence. Hematologic: Denies history of DVT, PE, petechiae, bleeding diathesis. Endocrine: Denies diabetes mellitus, thyroid disease, other endocrine disorder. Musculoskeletal: Broke L thumb, R wrist, shoulder, right knee. Denies fractures or arthritis. Back pain. Integument: Denies skin cancer. Objective: Vitals: Blood pressure 117/67, pulse 70, temperature 36.7 ??C (98.1 ??F), resp. rate 16, height 1.7 m (5' 6.93), weight 70 kg (154 lb 5.2 oz), SpO2 98.00%. Physical Exam: Constitutional: No acute distress. Alert and pleasant and appears stated age. Neurologic: Cranial nerves are intact. Eyes: Anicteric, equal, and reactive. Neck: No jugular venous distension. Trachea ismidline. Thyroid is without nodularity or involvement. Normal movement with swallowing. No cervical a denopathy. Respiratory: Clear to auscultation bilaterally to the bases with no wheezes, rhonchi, or crackles. Cardiovascular: Regular rate and rhythm with no murmurs, gallops, or rubs. Pulses: No carotid bruits, palpable distal radial pulses and distal lower extremity pulses. Abdomen: Soft, nontender,and nondistended with normal bowel sounds and no hepatosplenomegaly. No hernias. Musculoskeletal: Noclubbing, cyanosis, or edema. No petechiae. Full strength of all four extremities. Surgical wounds are clean, dry, intact and well healed. Studies: Chest CT on 02/14/11: Post-right lower lobectomy. Postsurgical bed unremarkable and stable. No suspicious pulmonary nodules, areas of airspace consolidation, or pleural effusion. The soft tissues of the chest are stable. A known large substernal goiter is noted. It is displacing the trachea to the right, as noted previously. No adenopathy. A stable, 2.4 cm, left adrenal nodule is seen. Scattered cysts and scarring are seen in the kidneys. The osseous structures are unremarkable for metastasis. Preoperative Clinical Stage: Lung Cancer: T1a (Tumor <= 2 cm, surrounded by lung, not in the main bronchus) N0 (No eligio metastases) M0 (No distant metastasis) Postoperative Stage: T1a (Tumor <= 2 cm, surrounded by lung, not in the main bronchus) N0 (No eligio metastases) M0 (No distant metastasis) Assessment and Plan: Mr. Mina is a 69 year old gentleman who underwent a right VATS lower lobectomy for known LIANET with resulting pathology showing adenocarcinoma. He is doing very well. I am pleased with his progress and with how well he is feeling. He is limited in his walking by his knee pain,but he will hopefully having the knee replaced in the near future. We will see him back in September [address] scan. More than 15 minutes of this 25 minute visit were spent in counseling and coordination of care. Pt's phone number [phone] / often stays at [facility] house [phone] documented in this encounter Plan of Treatment Upcoming Encounters Date Type Specialty Care Team Description 10/11/2022 Office Visit Dermatology Virgilio Mckeon MD [facility] ER DR CHRISTIANO HENSON-DERMAT OLOGY [place], [place] [address] (Wo rk) 10/16/2022 Office Visit Otolaryngology Frank Buchanan MD [facility] OTOLARYNGOLOGY Sarah EPT. [place], [place] [address] (Wo rk) 11/29/2022 Appointment Hematology and Oncology 11/29/2022 Office Visit Radiation Oncology Emerald Leyva APRN [facility] ER RADIATION ONCOLO GY [place], [place] [address] (Wo rk) documented as of this encounter Results CT chest WO contrast (09/12/2011 1:37 PM EDT) Anatomical Region Laterality Modality Chest Computed Tomography Specimen (Source) Anatomical Collection Method Collection Time Re ceived Time Location / / Volume Laterality 09/12/2011 1:37 PM EDT Impressions 09/14/2011 5:11 PM EDT IMPRESSION: ?? 1. Stable post lobectomy appearance with no findings for recurrent or new pulmonary pathology. 2. Unchanged goiter. 3. Unchanged renal cyst. Small head of p ancreas lesion less visible without contrast. 4. Stable left adrenal adenoma. Narrative 09/14/2011 5:[address] CHEST WITHOUT CONTRAST: INDICATION: ??Lung cancer. TECHNIQUE: ??3.75-mm thick axial contigu ous sections are obtained through the chest via helical acquisition without in travenous contrast administration. Thin-section reconstructions and coronal reformatted images were generated to aid in evaluation. CONTRAST: ??No intravenous contrast. COMPARISON: ??09/19/10. FINDINGS: ??The patient is status post r ight lower lobectomy, with no findings for recurrence at the resection site and no findings for new pathology in the right lung. Stable scarring at the right base and lateral right lung. No new pathology in the left lung. Unchanged ap pearance of the airways. No pleural or pericardial effusion. No thoracic lympha denopathy. Stable appearance of large left thyroid goiter allowing for non-con trast technique. No significant interval change in the appearance of the cardiovascular structures. ??Stable left adrenal adenoma (-3 Hounsfield unit s) and left renal cyst. The area of hypodensity previously reported in the p ancreas is less confidently identified in the absence of intravenous contrast. No interval findings in the upper abdomen. No significant interval osseous findings. Procedure Note Eliz Valderrama MD - 09/14/2011Formatt ing of this note might be different from the original. CT CHEST WITHOUT CONTRAST: INDICATION: Lung cancer. TECHNIQUE: 3.75-mm thick axial contiguou s sections are obtained through the chest via helical acquisition without in travenous contrast administration. Thin-section reconstructions and coronal reformatted images were generated to aid in evaluation. CONTRAST: No intravenous contrast. COMPARISON: 09/19/10. FINDINGS: The patient is status post rig ht lower lobectomy, with no findings for recurrence at the resection site and no findings for new pathology in the right lung. Stable scarring at the right base and lateral right lung. No new pathology in the left lung. Unchanged ap pearance of the airways. No pleural or pericardial effusion. No thoracic lympha denopathy. Stable appearance of large left thyroid goiter allowing for non-con trast technique. No significant interval change in the appearance of the cardiovascular structures. Stable left adrenal adenoma (-3 Hounsfield unit s) and left renal cyst. The area of hypodensity previously reported in the p ancreas is less confidently identified in the absence of intravenous contrast. No interval findings in the upper abdomen. No significant interval osseous findings. IMPRESSION IMPRESSION: 1. Stable post lobectomy appearance with no findings for recurrent or new pulmonary pathology. 2. Unchanged goiter. 3. Unchanged renal cyst. Small head of p ancreas lesion less visible without contrast. 4. Stable left adrenal adenoma. Lois Jacome MD IMG CT ORDERABLES documented in this encounter Visit Diagnoses Diagnosis Lung cancer Malignant neoplasm of bronchus and lung, unspecified site Lung cancer Malignant neoplasm of bronchus and lung, unspecified site documented in this encounter Care Teams Residency Director Relationship Specialty Start Date End Date Giorgio Cardona MD PCP - General 10/04/10 04/10/17 [facility] [place] [address] documented as of this encounter
--- OUTSIDE RECORDS SUMMARY | 2022-10-09 16:20 | XMS_ITS | Encounter Summary ---
:1940 Author Organization [facility] [place] [address] Care Team Providers Name Role Phone Giorgio Cardona MD Primary Care Provider Reason for Visit Reason Onset Date Comments Other 10/04/2011 Encounter Details Date Type Department Care Team Description 10/04/2011 Telephone Internal Medicine at [facility] Giorgio Cardona MD Other [place] [address] GENERAL INTERNAL MEDICINE [phone] [place], [place] [address] (Wo rk) Social History Tobacco Use Types Packs/Day Years Used Date Smoking Tobacco: Never Smokeless Tobacco: Never Alcohol Use Standard Drinks/Week Comments No 0 (1 standard drink = 0.6 oz pure alcoho l) Sex Assigned at Date Recorded Not on file documented as of this encounter Miscellaneous Notes Telephone Encounter - Oneida Bridges RN - 10/04/2011 12:23 PM EST Message from Junior Copywriter Pt wanted me to let you know that he has been having a constant tickle in his throat and coughing upmucus. Call placed to pt, message left on answering machine instructing pt to use saline nasal spray, drinkextra fluid, ok to take Mucinex to thin mucous, hot tea with honey. Pt instructed to call if symptoms worsen or he develops fever. documented in this encounter Plan of Treatment Upcoming Encounters Date Type Specialty Care Team Description 10/11/2022 Office Visit Dermatology Virgilio Mckeon MD [facility] DR CHRISTIANO HENSON-DERMAT OLOGY [place], [place] [address] (Wo rk) 10/16/2022 Office Visit Otolaryngology Frank Buchanan MD [facility] OTOLARYNGOLOGY Sarah EPT. [place], [place] [address] (Wo rk) 11/29/2022 Appointment Hematology and Oncology 11/29/2022 Office Visit Radiation Oncology Emerald Leyva APRN [facility] RADIATION ONCOLO GY [place], [place] [address] (Wo rk) documented as of this encounter Visit Diagnoses Not on filedocumented in this encounter Care Teams Academic Affairs Coordinator Relationship Specialty Start Date End Date Giorgio Cardona MD PCP - General 10/04/10 04/10/17 [facility] [place] [address] documented as of this encounter
--- OUTSIDE RECORDS SUMMARY | 2022-10-09 16:20 | XMS_ITS | Encounter Summary ---
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 [place], [place] [address] (Wo rk) 11/29/2022 Appointment Hematology and Oncology 11/29/2022 Office Visit Radiation Oncology Emerald Leyva APRN [facility] RADIATION ONCOLO [place], [place] [address] (Wo rk) documented as of this encounter Visit Diagnoses Diagnosis Prostate cancer - Primary Malignant neoplasm of prostate documented in this encounter Care Teams Etl Analyst Developer Relationship Specialty Start Date End Date Giorgio Cardona MD PCP - General 10/04/10 04/10/17 [facility] GENER[place] [address] documented as of this encounter
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
--- OUTSIDE RECORDS SUMMARY | 2022-10-09 16:20 | XMS_ITS | Encounter Summary ---
:1940 Author Organization [facility] [place] [address] Care Team Providers Name Role Phone Giorgio Cardona MD Primary Care Provider Encounter Details Date Type Department Care Team Description 09/18/2011 Hospital Encounter Laboratory Giorgio Cardona MD Lung cancer; [facility] [address] [place] [address] GENERAL INTERNAL [phone] MEDICINE [place], [place] [address] (Wo rk) Social History Tobacco [...] 11/1312/29/2011 125 mcg tablet mouth every morning. furosemide (LASIX) 20 mg 40 MG = [...] [facility] DR CHRISTIANO HENSON-DERMAT OLOGY [place], [place] [address] (Wo rk) 10/16/2022 Office Visit Otolaryngology Frank Buchanan MD [facility] OTOLARYNGOLOGY D EPT. [place], [place] [address] (Wo rk) 11/29/2022 Appointment Hematology and Oncology 11/29/2022 Office Visit Radiation Oncology Emerald Leyva APRN [facility] RADIATION ONCCESAR [place], [place] [address] (Wo rk) documented as of this encounter Procedures Procedure Name Priority Date/Time Associated Comments Diagnosis DIFFERENTIAL, Routine 09/18/2011 9:53 AM Results for this AUTOMATED EST procedure are i n the results section. VITAMIN D, 25-HYDROXY Routine 09/18/2011 9:53 AM Lung ca ncer Results for this EST Hypothyroid procedure are i n the results section. CBC (WITH DIFF) Routine 09/18/2011 9:53 AM Lung cancer Results for this EST Hypothyroid procedure are i n the results section. HEMOGLOBIN A1C Routine 09/18/2011 9:53 AM Lung cancer Results for this EST Hypothyroid procedure are i n the results section. FOLATE, SERUM Routine 09/18/2011 9:53 AM Lung cancer Results for this EST Hypothyroid procedure are i n the results section. VITAMIN B12 Routine 09/18/2011 9:53 AM Lung cancer Results for this EST Hypothyroid procedure are i n the results section. LIPID PANEL (REFLEX Routine 09/18/2011 9:53 AM Lung canc er Results for this DIRECT LDL) EST Hypothyroid procedure are i n the results section. COMPREHENSIVE Routine 09/18/2011 9:53 AM Lung cancer Results for this METABOLIC PANEL EST Hypothyroid procedure ar e in (NON-FASTING) the results section. documented in this encounter Results DIFFERENTIAL, AUTOMATED (09/18/2011 9:53 AM EST) P athologist Signature Neutrophils % 53.4 34.0 - CERNER 71.0 % MILLENNIUM Neutr Abs (ANC) 2.39 1.50 - CERNER 6.30 MILLENNIUM x10(3)/mcL Lymphocytes % 29.5 19.0 - CERNER 53.0 % MILLENNIUM Lymphocytes Abs 1.3 1.0 - 3.6 CERNER x10(3)/mcL MILLENNIUM Monocytes % 12.9 4.0 - 13.0 CERNER % MILLENNIUM Monocyte Abs 0.6 0.2 - 1.0 CERNER x10(3)/mcL MILLENNIUM Eosinophils % 3.3 0.0 - 7.0 CERNER % MILLENNIUM Eosinophils Abs 0.2 0.0 - 0.5 CERNER x10(3)/mcL MILLENNIUM Basophils % 0.7 0.0 - 2.0 CERNER % MILLENNIUM Basophils Abs 0.0 0.0 - 0.2 CERNER x10(3)/mcL MILLENNIUM Immature Gran % 0.20 0.00 - CERNER [...] Gran Abs 0.01 0.00 - 0.05 x10(3)/mcL [facility] Specimen Anatomical Collection Method Collection Time Receive d Time (Source) Location / / Volume Laterality Blood specimen 09/18/2011 9:53 AM 011 (specimen) EST 10:01 AM EST Giorgio Cardona MD HEMATOLOGY ORDERABLES Performing Organization Address City/State/ZIP Code Phon e Number [place] [id number] [facility] (ABNORMAL) Lipid panel (fasting) (09/18/2011 9:53 AM EST) P athologist Signature Chol, Total 199 <=199 mg/dL [facility] Comment: Recommendations of the NCEP Adult Treatm ent Panel for the following risk cutoff thresholds for the [place] populatio n: Desirable: <200 mg/dL Borderline High: 200-239 mg/dL High: > or = 240 mg/dL Triglycerides 71 <=149 mg/dL [facility] Comment: Reference Range: Normal triglycerides: ??<150 mg/dL Borderline high: ??150-199 mg/dL High: ??200-499 mg/dL Very high: ??>od=440 mg/dL KENDRA 2001; 285(19):0050-7561 HDL 79 >=40 mg/dL [facility] Comment: Reference range: ??Low HDL: ?? < 40 mg/dL ??Normal: ?40-60 mg/dL ??Desirable: > 60 mg/dL KENDRA 2001; 285(19):0116-5252 LDL Cholesterol 106 (H) <=99 mg/dL [facility] Comment: Reference range: ?? Optimal: ?<100 mg/dL ?? Near Optimal/Above Optimal: ?? 100-1 29 mg/dL ?? Borderline high: ?130-159 mg/dL ?? High: ? 160-189 mg/dL ?? Very high: ?>zw=787 mg/dL KENDRA 2001: 285(19):6108-3781 Chol/HDL Ratio 2.5 ratio CERNER MILLENNI UM Comment: A Cholesterol to HDL ratio below 4:1 is desirable. ??Studies suggest that increased CAD risk occurs at ratios abov e 5 for females and above 6 for men. ? [place] [employer] Association ??(htt p://www.americanheart.org) ? Anay Int Med, 1994; 121:641 ? AM J Med, 1998; 105(1A):48S Specimen Anatomical Collection Method Collection Time Receive d Time (Source) Location / / Volume Laterality Blood specimen 09/18/2011 9:53 AM 011 (specimen) EST 10:01 AM EST Giorgio Cardona MD CHEMISTRY ORDERABLES Performing Organization Address City/State/[place] [address] [facility] Vitamin D2 and D3 25 Hydroxy (09/18/2011 9:53 AM EST) athologist Signature 25-Hydroxy D2 <4.0 ng/mL [facility] Comment: Test Performed by: [place] [address] Motorbike Courier: Skylar Purvis, Ph. D. 25-Hydroxy D3 27 ng/mL [facility] Comment: Test Performed by: [facility] [employer] [place] [address] Motorbike Courier: Skylar Purvis, Ph. D. 25-OH Vit D Total 27 ng/mL [facility] Comment: -- REFERENCE VALUE -- 25-HYDROXY D TOTAL (D2+D3) Optimum levels in the normal population are 25-80 Test Performed by: [facility] [employer] [place] [address] Motorbike Courier: Skylar Purvis, Ph. D. Specimen Anatomical Collection Method Collection Time Receive d Time (Source) Location / / Volume Laterality Blood specimen 09/18/2011 9:53 AM 011 (specimen) EST 12:11 PM EST Giorgio Cardona MD CHEMISTRY ORDERABLES Performing Organization Address City/State/[place] [address] C[facility]ER MILLENNIUM (ABNORMAL) Comprehensive metabolic panel (non-fasting) (09/18/2011 9:53 AM EST) P athologist Signature Glucose Lvl 109 60 - 199 CERNER mg/dL [facility] Comment: Diabetes: >=200 mg/dL plus symp toms BUN 28 (H) 10 - 20 mg/dL CERNER MILLENNIU M Creatinine 1.02 0.80 - 1.50 mg/dL CERNER MILL ENNIUM [...] - 15 mmol/L CERNER MILLENNIU M Calcium 9.7 8.5 - 10.5 mg/dL CERNER PATRICK NIUM Total Protein 6.8 6.4 - 8.3 gm/dL CERNER MIL LENNIUM Albumin 4.2 3.2 - 5.2 gm/dL CERNER MILLENN IUM AST 18 0 - 39 unit/L CERNER MILLENNIU M ALT 11 0 - 55 unit/L CERNER MILLENNIU M Alk Phos 65 40 - 120 unit/L CERNER MILLENN IUM Total Bilirubin 0.4 0.2 - 1.3 mg/dL CERNER M ILLENNIUM Bili, Direct 0.1 0.0 - 0.3 mg/dL CERNER MILL ENNIUM Estimated GFR >60 >=60 MARIAMA Pugh [...] Location / / Volume Laterality Blood specimen 09/18/2011 9:53 AM 011 (specimen) EST 10:01 AM EST Giorgio Cardona MD CHEMISTRY ORDERABLES Performing Organization Address City/State/ZIP Code Phon e Number [place] [phone] [facility]OD[facility] Vitamin B12 (09/18/2011 9:53 AM EST) P athologist Signature Vitamin B-12 435 207 - 974 CERNER pg/mL [facility] Specimen Anatomical Collection Method Collection Time Receive d Time (Source) Location / / Volume Laterality Blood specimen 09/18/2011 9:53 AM 11/07/2 011 (specimen) EST 10:01 AM EST Giorgio Cardona MD CHEMISTRY ORDERABLES Performing Organization Address City/State/[place] [address] CERNER MILLENNIUM Folate, serum (09/18/2011 9:53 AM EST) P athologist Signature Folate Lvl 18.9 7.4 - 35.0 CERNER ng/mL MILLENNIUM Specimen Anatomical Collection Method Collection Time Receive d Time (Source) Location / / Volume Laterality Blood specimen 09/18/2011 9:53 AM 011 (specimen) EST 10:01 AM EST Giorgio Cardona MD CHEMISTRY ORDERABLES Performing Organization Address City/[facility]/[place] [address] CERNER MILLENNIUM Hemoglobin A1c (09/18/2011 9:53 AM EST) Patholo gist Method Time Signature Hemoglobin A1C 5.6 4.3 - 6.1 CERNER % MILLENNIUM Est [...] into estimated average glucose values. ??Diabetes Care 2008:31(8):9060-4609. Specimen Anatomical Collection Method Collection Time Receive d Time (Source) Location / / Volume Laterality Blood specimen 09/18/2011 9:53 AM 011 (specimen) EST 10:01 AM EST Giorgio Cardona MD CHEMISTRY ORDERABLES Performing Organization Address City/State/ZIP Code [place] [address] CERNER MILLENNIUM (ABNORMAL) CBC (with Diff) (09/18/2011 9:53 AM EST) P athologist Signature WBC 4.5 4.0 - 10.0 CERNER x10(3)/mcL MILLENNIUM RBC 4.17 (L) 4.63 - CERNER 6.08 MILLENNIUM x10(6)/mcL Hemoglobin 13.8 13.7 - CERNER 17.5 gm/dL MILLENNIUM Hematocrit 41.2 40.0 - CERNER 51.0 % MILLENNIUM MCV 98.8 (H) 79.0 - CERNER 92.0 fL MILLENNIUM MCH 33.1 (H) 25.6 - CERNER 32.2 pg MILLENNIUM MCHC 33.5 32.0 - CERNER 36.5 gm/dL MILLENNIUM Platelets 179 145 - 370 CERNER x10(3)/mcL MILLENNIUM RDWSD 48.9 (H) 35.0 - CERNER 46.0 fL MILLENNIUM RDWCV 13.6 10.9 - CERNER 14.4 % MILLENNIUM MPV 10.6 9.0 - 12.0 CERNER fL MILLENNIUM Specimen Anatomical Collection Method Collection Time Receive d Time (Source) Location / / Volume Laterality Blood specimen 09/18/2011 9:53 AM 011 (specimen) EST 10:01 AM EST Giorgio Cardona MD HEMATOLOGY ORDERABLES Performing Organization Address City/State/ZIP Code Phon e Number [place] [address] [facility] documented in this encounter Visit Diagnoses Diagnosis Lung cancer Malignant neoplasm of bronchus and lung, unspecified site Hypothyroid Unspecified hypothyroidism documented in this encounter Care Teams System Dispatcher Relationship Specialty Start Date End Date Giorgio Cardona MD PCP - General 10/04/10 04/10/[address] [facility] [address] [place] [address] documented as of this encounter
--- OUTSIDE RECORDS SUMMARY | 2022-10-09 16:20 | XMS_ITS | Encounter Summary ---
:1940 Author Organization [facility] [place] [address] Care Team Providers Name Role Phone Arabella Rob MD Primary Care Provider Reason for Visit Reason Comments Carolyne Encounter Details Date Type Department Care Team Description 09/18/2011 Office Visit General Surgery [place] [facility] [place] Christofer (Primary Dx) [facility] [address] [place] GENERAL SURGERY [address] [place] [address] [phone] Social History Tobacco Use Types Packs/Day Years Used Date Smoking Tobacco: Never Smokeless Tobacco: Never Alcohol Use Standard Drinks/Week Comments No 0 (1 standard drink = 0.6 oz pure alcoho l) Sex Assigned at Date Recorded Not on file documented as of this encounter Last Filed Vital Signs Vital Sign Reading Time Taken Comments Blood Pressure 126/62 09/18/2011 8:14 AM EST Pulse 60 09/18/2011 8:14 AM EST Temperature 36.5 ??C (97.7 ??F) 09/18/2011 8:14 AM EST Respiratory Rate 16 09/18/2011 8:14 AM EST Oxygen Saturation 97% 09/18/2011 8:14 AM EST Inhaled Oxygen Concentration - - Weight 69.8 kg (153 lb 12.8 oz) 09/18/2011 8:14 AM EST Height 163.2 cm (5' 4.25) 09/18/2011 8:14 AM EST Body Mass Index 26.19 09/18/2011 8:14 AM EST documented in this encounter Progress Notes Andi Guthrie MD - 09/18/2011 11:07 AM EST See H&P in Surgical Consult on 09/18/2011. documented in this encounter H&P Notes Andi Guthrie MD - 09/18/2011 11:10 AM EST Reason for Visit: Alfredito Mina is a 71 y.o. male who is seen in consultation per ARABELLA ROB MD, MD and Oriana Jeff MD because of a substernal thyroid. History of Present Illness: He has been aware of having an enlarged thyroid for at least 15 years, and was evaluated by Dr. Grover in 1999 at which time he had [...] disease with a p/GM who had a MNG. He has no history of head or neck irradiation. He has no dysphagia or dysphonia. This has been felt on physical exam. ROS: No H/O asthma, RI, stroke, pulmonary embolus or phlebitis. Comprehensive review of systems otherwise negative and non-contributory. PMSH: Surgical history: BIH; T&A; MV repair; Lung resection for cancer. Active medical problems: prostate cancer Rx'd with RT; HBP; asthma; COPD; GERD Tobacco: (x) Life-long non-smoker ETOH: none I have reviewed the relevant laboratory tests and imaging studies. Allergies as of 09/18/2011 - Review Complete 09/18/2011 Allergen Reaction Noted ??? Other (unclassified drug) Other (See Comments) 09/18/2011 ??? Lactose Other (See Comments) 06/01/2011 Current outpatient prescriptions ordered prior to encounter Medication Sig Dispense Refill ??? fluticasone (FLONASE) 50 mcg/Actuation nasal spray 1 spray by Each Nare route 2 times daily. 16 g 12 ??? fexofenadine (TADEO) 180 mg tablet Take 1 tablet by mouth daily. 30 tablet 12 ??? codeine-guaifenesin (GUAIFENESIN AC) 10-100 mg/5 mL [...] ??? naproxen sodium (ALEVE) 220 mg tablet PE: General: Well developed, well nourished 71 y.o. male in NAD. Skin: warm, dry, good turgor, nonicteric. Neck: He has a dominant, movable, nontender nodule in the left and right lobes of the thyroid extending below the clavicles bilaterally with no adenopathy. HEENT: DANIELLA, EOM's full, sclera nonicteric, poor dentition otherwise unremarkable. Back: no tenderness to AP or lateral compression. Lungs: Clear BS bilaterally without wheezes, rales or rhonchi. Card: Heart sounds normal, no murmurs, gallops, rubs or S3. Extremities: warm, no edema. Neuro: Awake, alert and oriented x 3., Chvostek negative bilaterally. Imp: Substernal MNG. Plan: Recommend proceeding with total thyroidectomy through a cervical approach with possible sternotomy. Will discuss timing of surgery with Dr. Rob and consult Dr. Peterson for assistance if sternotomy is necessary. He understands the implications, indications, potential complications and agrees to proceed. Will sign in through SDS. Consent is not signed. Send copy to Dr. ARABELLA ROB MD, MD and Oriana Jeff MD, Kaushik Peterson MD. documented in this encounter Plan of Treatment Upcoming Encounters Date Type Specialty Care Team Description 10/11/2022 Office Visit Dermatology Virgilio Mckeon MD [facility] DR CHRISTIANO HENSON-DERMAT OLOGY [place], [place] [address] (Wo rk) 10/16/2022 Office Visit Otolaryngology Frank Buchanan MD [facility] OTOLARYNGOLOGY D EPT. [place], [place] [address] (Wo rk) 11/29/2022 Appointment Hematology and Oncology 11/29/2022 Office Visit Radiation Oncology Emerald Leyva APRN [facility] RADIATION ONCOLO GY [place], [place] [address] (Wo rk) documented as of this encounter Procedures Procedure Name Priority Date/Time Associated Diagnosis Comme nts THYROIDECTOMY, INCL. Routine 09/18/2011 9:06 AM EST SUBSTERNAL, CERVICAL APPROACH documented in this encounter Visit Diagnoses Diagnosis Retrosternal goiter - Primary Goiter, unspecified documented in this encounter Care Teams Dental Patient Coordinator Relationship Specialty Start Date End Date Arabella Rob MD PCP - General 10/04/10 04/10/17 [facility] [place] [address] documented as of this encounter
--- OUTSIDE RECORDS SUMMARY | 2022-10-09 16:20 | XMS_ITS | Encounter Summary ---
:1940 [place] [address] Care Team Providers Name Role Phone Giorgio Cardona MD Primary Care Provider Encounter Details Date Type Department Care Team Description 03/28/2011 Hospital Encounter Non-Invasive CLINIC, DR ANN MARIE LOPEZ (d egenerative Cardiology Lab Adam Yo MD [facility] [place] [address] joint disease[place] [id number] Social History Tobacco Use Types Packs/Day Years Used Date Smoking Tobacco: Never Alcohol Use Standard Drinks/Week Comments No 0 (1 standard drink = 0.6 oz pure alcoho l) Sex Assigned at Date Recorded Not on file documented as of this encounter Last Filed Vital Signs Vital Sign Reading Time Taken Comments Blood Pressure 147/81 03/28/2011 9:15 AM EDT Pulse 64 03/28/2011 9:15 AM EDT Temperature - - Respiratory Rate 20 03/28/2011 9:15 AM EDT Oxygen Saturation 96% 03/28/2011 9:15 AM EDT Inhaled Oxygen Concentration - - Weight 68 kg (150 lb) 03/28/2011 9:15 AM EDT Height 170.2 cm (5' 7) 03/28/2011 9:15 AM EDT Body Mass Index 23.49 03/28/2011 9:15 AM EDT documented in this encounter Medications at [...] 05/18/2011 tablet documented as of this encounter Plan of Treatment Upcoming Encounters Date Type Specialty Care Team Description 10/11/2022 Office Visit Dermatology Virgilio Mckeon MD [facility] DR CHRISTIANO HENSON-DERMAT OLOGY [place], [place] [address] (Wo rk) 10/16/2022 Office Visit Otolaryngology Frank Buchanan MD [facility] OTOLARYNGOLOGY Sarah EPT. [place], [place] [address] (Wo rk) 11/29/2022 Appointment Hematology and Oncology 11/29/2022 Office Visit Radiation Oncology Emerald Leyva APRN [facility] RADIATION ONCCESAR GY [place], [place] [address] (Wo rk) documented as of this encounter Procedures Procedure Name Priority Date/Time Associated Comments Diagnosis ECHOCARDIOGRAM Routine 03/28/2011 10:31 DJD (degenerative Resu lts for this PHARMACOLOGICAL STRESS AM EDT joint disease) of procedure are in TEST (DSE) knee the results section. documented in this encounter Results Echo pharm stress test (DSE) (03/28/2011 10:31 AM EDT) athologist Signature EF 60 HEARTLAB SYSTEM Anatomical Region Laterality Modality Other Specimen (Source) Anatomical Location Collection Method / Collectio n Time Received Time / Laterality Volume 05/12/2011 Narrative 05/12/2011 10:04 AM EDT Procedure: ? Stress Echocardiogram ? Patient: ? RACQUELNORMAN Rodriguez ?(Age): 1940(70) Med Rec#: ?[id number] ?Sex: ?M ? [place] Loc[place] [place]Ht / Wt: ??170(cm)/68(kg) Pt. Loc: ? Echo Lab ?BSA: ?1.79 Study Date: ?03/28/2011 ?Pt. Type: Outpatient Tape: ? Referring: Adam Quezada Referring: MAGAN GALINDO, Lexy MEDINA Fuel Cell Designer: Unique Pinedo RCS Interpreting Fellow: Marisela Herrera Interpreting Fellow: Ramona Carlos Nurse: Marly Sheffield Diagnosis:CPT Code(s): ??Stress Echo (93 350), ??Color Doppler (82597), Doppler LTD (00296), ??ECG Interpretatio n (78722), Indication(s): ??Pre-op cardiovascular e valuation Medication(s): ?? Rhythm: Sinus Stage ?HR ?BP Rest ? 70 ?147/81 ?? Low dose ? 64 ?145/72 ?? Peak ? 138 ? 176/70 ?? Recovery ? 85 ?132/72 ?? SUMMARY: 1. BASELINE: Normal global and segmental biventricular systolic function with an estimated ejection fraction of 6 0%. Mitral valve ring with normal function. 2. STRESS: Baseline EKG showed NSR with no ST-T wave changes. The patient received incremental doses of Do butamine to a peak of 30 mcg/kg/min, achieving a heart rate of 13 8(93% max pred.), and peak BP of 181/66 mmHg. ??With stress he was asympt omatic, hemodynamically stable and developed no diagnostic ST-TW change s. Frequent PVCs and ocassional PAcs were noted. With stress all LV segm ents became hyperdynamic. 3. IMPRESSION: No evidence of ischemia a t this level of stress. FINDINGS: Rest Left Ventricle ?Left ventricular chamber size, wal l thickness, global and segmental systolic function are within normal limi ts. Ejection fraction is estimated to be 60%. ?There are no left ventricular segm ental wall motion abnormalities. ?Doppler assessment is consistent w ith elevated left sided filling pressure. Left Atrium ?The left atrium is mildly dilated. Right Ventricle ?Right ventricular chamber size, wa ll thickness, and systolic function are within normal limits. ?The estimated pulmonary artery sys tolic pressure is 32 mmHg. ?The estimated right atrial pressur e is 3 mmHg. Right Atrium ?The right atrium is mildly dilated . Aortic Valve ?The aortic valve is tricuspid. ?The aortic valve leaflets are mild ly thickened. ?Systolic excursion of the aortic v alve is normal. ?There is aortic annular calcificat ion. ?There is no evidence of aortic aden ve stenosis. ?There is a trace of aortic regurgi tation present. Mitral Valve ?Status-post placement of a mitral valve ring. ?There is a trace amount of mitral prosthesis regurgitation. Tricuspid Valve ?The tricuspid valve appears normal in structure and function. ?There is mild (1+/4+) tricuspid re gurgitation present. Pericardium ?The pericardium appears normal and there is no evidence of a pericardial effusion. Stress ?EKG: normal sinus rhythm. ?The patient's oxygen saturation wa s 97% on r/a ?The patient is taking a beta block er. ?The patient is taking a diuretic. Misc ?Other echo and stress findings as noted in report. ?I personally reviewed the images a nd edited the resident's/fellow's interpretation. ?Stress echo, limited spectral Dopp ler, color Doppler and ECG interpretation performed. FINDINGS: Low dose Stress ?EKG: normal sinus rhythm. ?EKG: Premature ventricular contrac tions noted. FINDINGS: Peak Left Ventricle ?Global left ventricular systolic f unction appears hyperdynamic. ?There are no left ventricular segm ental wall motion abnormalities. Stress ?Maximum heart rate achieved was 13 8, which is 93% of the maximum(148 beats/min). ?The target heart rate was achieved . ?The peak dose of Dobutamine infuse d was 30 ug/kg/min. ?The patient performed leg lifts to accelerate heart rate. ?The patient performed hand squeeze s to accelerate heart rate. ?The patient did not express feelin gs of chest discomfort. ?The blood pressure response was no rmal. ?There were occasional atrial norah ture contractions. ?There were frequent ventricular pr emature contractions. ?There is 0.[address] s egment depression in the leads. ?There was ST segment depression in the inferolateral leads. ?This was a negative echocardiograp hic stress test. ?There is no echocardiographic evid ence of myocardial ischemia at this level of stress. ?EKG: Premature atrial contractions noted. ?EKG: Premature ventricular contrac tions noted. ?EKG: sinus tachycardia. ?The patient's oxygen saturation wa s 99% Misc ?A 20 gauge heplock was placed. ?The IV site is dry and intact with no hematoma. ?Normal saline was given. 250cc NS infused ?The patient is alert and oriented x3. ?The procedure was explained to the patient and the patient understands the procedure, FINDINGS: Recovery Stress ?EKG: normal sinus rhythm. ?EKG: Premature ventricular contrac tions noted. Wall Motion: Segment Name ?Rest ?Peak ? Base-Anteroseptal ?? Normal ?Normal ? Base-Anterior ? Normal ?Normal ? Base-Anterolateral ??Normal ?Normal ? Base-Posterolateral Normal ?Normal ? Base-Inferior ? Normal ?Normal ? Base-Inferoseptal ?? Normal ?Normal ? Mid-Anteroseptal ?Normal ?Normal ? Mid-Anterior ?Normal ?Normal ? Mid-Anterolateral ?? Normal ?Normal ? Mid-Posterolateral ??Normal ?Normal ? Mid-Inferior ?Normal ?Normal ? Mid-Inferoseptal ?Normal ?Normal ? Monroe-Septal ? Normal ?Normal ? Monroe-Anterior ? Normal ?Normal ? Monroe-Lateral ?Normal ?Normal ? Monroe-Inferior ? Normal ?Normal ? Monroe-Tip ?Normal ?Normal ? Chambers ?Value ?Units (Range) ? LV EF Est ? 60 ? % (55 to 80) ? LA area ? 22 ? cm2 (<21) ? RA area ? 18 ? cm2 (<18) ? Mitral Valve ?Value ?Units (Range) ? MV grad P ? 11 ? mmHg ? MV grad M ? 5 ?mmHg ? MVA(pht) ?2.9 ?cm2 (4 to 6) ? E peak ?1.43 ? m/sec ? E1 ?0.09 ? m/sec ? E/E1 ?16 ? ratio ? Tricuspid/Pulmonic Valves ?Value ?Units (Range) ? TR peak marsha ? 2.7 ?m/sec ? RAP ? 3 ?mmHg ? RVSP/PASP ? 32 ? mmHg ? This report has been electronically sign ed by: _ Bobby Burton MD ? 05/12/2011 10 :04:18 Images reviewed and interpretation verif ied [facility] Cardiac Ultrasound [facility] Procedure Note 05/12/2011 Procedure: Stress Echocardiogram Patient: RACQUEL BLANCAS(Age): 1940(70) Med Rec#: [id number] Sex: M [place] Loc[place] [facility] [place] Ht / Wt: 170(cm)/68(kg) Pt. Loc: Echo Lab BSA: 1.79 Study Date: 03/28/2011 Pt. Type: Outpati ent Tape: Referring: Adam Quezada Referring: ADAM QUEZADA MD, M Fuel Cell Designer: Unique Pinedo RCS Interpreting Fellow: Marisela Herrera Interpreting Fellow: Ramona Carlos Nurse: Marly Sheffield Diagnosis:CPT Code(s): Stress Echo (9335 0), Color Doppler (05486), Doppler LTD (71535), ECG Interpretation (28812), Indication(s): Pre-op cardiovascular ganesh luation Medication(s): Rhythm: Sinus Stage HR BP Rest 70 147/81 Low dose 64 145/72 Peak 138 176/70 Recovery 85 132/72 SUMMARY: 1. BASELINE: Normal global and segmental biventricular systolic function with an estimated ejection fraction of 6 0%. Mitral valve ring with normal function. 2. STRESS: Baseline EKG showed NSR with no ST-T wave changes. The patient received incremental doses of Do butamine to a peak of 30 mcg/kg/min, achieving a heart rate of 13 8(93% max pred.), and peak BP of 181/66 mmHg. With stress he was asymptom atic, hemodynamically stable and developed no diagnostic ST-TW change s. Frequent PVCs and ocassional PAcs were noted. With stress all LV segm ents became hyperdynamic. 3. IMPRESSION: No evidence of ischemia a t this level of stress. FINDINGS: Rest Left Ventricle Left ventricular chamber size, wall thi ckness, global and segmental systolic function are within normal limi ts. Ejection fraction is estimated to be 60%. There are no left ventricular segmental wall motion abnormalities. Doppler assessment is consistent with e levated left sided filling pressure. Left Atrium The left atrium is mildly dilated. Right Ventricle Right ventricular chamber size, wall th ickness, and systolic function are within normal limits. The estimated pulmonary artery systolic pressure is 32 mmHg. The estimated right atrial pressure is 3 mmHg. Right Atrium The right atrium is mildly dilated. Aortic Valve The aortic valve is tricuspid. The aortic valve leaflets are mildly th ickened. Systolic excursion of the aortic valve is normal. There is aortic annular calcification. There is no evidence of aortic valve st enosis. There is a trace of aortic regurgitatio n present. Mitral Valve Status-post placement of a mitral valve ring. There is a trace amount of mitral prost hesis regurgitation. Tricuspid Valve The tricuspid valve appears normal in s tructure and function. There is mild (1+/4+) tricuspid regurgi tation present. Pericardium The pericardium appears normal and ther e is no evidence of a pericardial effusion. Stress EKG: normal sinus rhythm. The patient's oxygen saturation was 97% on r/a The patient is taking a beta jessa. The patient is taking a diuretic. Misc Other echo and stress findings as noted in report. I personally reviewed the images and ed ited the resident's/fellow's interpretation. Stress echo, limited spectral Doppler, color Doppler and ECG interpretation performed. FINDINGS: Low dose Stress EKG: normal sinus rhythm. EKG: Premature ventricular contractions noted. FINDINGS: Peak Left Ventricle Global left ventricular systolic functi on appears hyperdynamic. There are no left ventricular segmental wall motion abnormalities. Stress Maximum heart rate achieved was 138, wh ich is 93% of the maximum(148 beats/min). The target heart rate was achieved. The peak dose of Dobutamine infused was 30 ug/kg/min. The patient performed leg lifts to acce lerate heart rate. The patient performed hand squeezes to accelerate heart rate. The patient did not express feelings of chest discomfort. The blood pressure response was normal. There were occasional atrial premature contractions. There were frequent ventricular prematu re contractions. There is 0.[address] segmen t depression in the leads. There was ST segment depression in the inferolateral leads. This was a negative echocardiographic s tress test. There is no echocardiographic evidence of myocardial ischemia at this level of stress. EKG: Premature atrial contractions note d. EKG: Premature ventricular contractions noted. EKG: sinus tachycardia. The patient's oxygen saturation was 99% Misc A 20 gauge heplock was placed. The IV site is dry and intact with no h ematoma. Normal saline was given. 250cc NS infus ed The patient is alert and oriented x3. The procedure was explained to the brittany ent and the patient understands the procedure, FINDINGS: Recovery Stress EKG: normal sinus rhythm. EKG: Premature ventricular contractions noted. Wall Motion: Segment Name Rest Peak Base-Anteroseptal Normal Normal Base-Anterior Normal Normal Base-Anterolateral Normal Normal Base-Posterolateral Normal Normal Base-Inferior Normal Normal Base-Inferoseptal Normal Normal Mid-Anteroseptal Normal Normal Mid-Anterior Normal Normal Mid-Anterolateral Normal Normal Mid-Posterolateral Normal Normal Mid-Inferior Normal Normal Mid-Inferoseptal Normal Normal Monroe-Septal Normal Normal Monroe-Anterior Normal Normal Monroe-Lateral Normal Normal Monroe-Inferior Normal Normal Monroe-Tip Normal Normal Chambers Value Units (Range) LV EF Est 60 % (55 to 80) LA area 22 cm2 (<21) RA area 18 cm2 (<18) Mitral Valve Value Units (Range) MV grad P 11 mmHg MV grad M 5 mmHg MVA(pht) 2.9 cm2 (4 to 6) E peak 1.43 m/sec E1 0.09 m/sec E/E1 16 ratio Tricuspid/Pulmonic Valves Value Units (Range) TR peak marsha 2.7 m/sec RAP 3 mmHg RVSP/PASP 32 mmHg This report has been electronically sign ed by: _ Bobby Burton MD 05/12/2011 10:04:18 Images reviewed and interpretation verif ied [facility]iac [facility]trasound [facility] Adam Quezada MD ECHO ORDERABLES documented in this encounter Visit Diagnoses Diagnosis 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 68 kg (rounded to 122.4 mL/hr), Intravenous, ONCE, 1 dose, On Sun03/28/11 at 1030, Echo Lab (Intra-Procedure) documented in this encounter Care Teams Doper Relationship Specialty Start Date End Date Giorgio Cardona MD PCP - General 10/04/10 04/10/17 [facility] [address] documented as of this encounter
--- OUTSIDE RECORDS SUMMARY | 2022-10-09 16:20 | XMS_ITS | Encounter Summary ---
:1940 Author Organization [facility] Address [facility] [place] [address] Care Team Providers Name Role Phone Giorgio Cardona MD Primary Care Provider Reason for Visit Reason Comments Cough Shortness of Breath Encounter Details Date Type Department Care Team Description 07/14/2011 Office Visit Internal Medicine at Mare Orozco MD Cough (Primary Dx) [facility] [address] [place] [address]ICINE [phone] [place], [place] [address] (Wo rk) Social History Tobacco Use Types Packs/Day Years Used Date Smoking Tobacco: Never Smokeless Tobacco: Never Alcohol Use Standard Drinks/Week Comments No 0 (1 standard drink = 0.6 oz pure alcoho l) Sex Assigned at Date Recorded Not on file documented as of this encounter Last Filed Vital Signs Vital Sign Reading Time Taken Comments Blood Pressure 128/58 07/14/2011 12:58 PM EDT Pulse 69 07/14/2011 12:58 PM EDT Temperature 36.7 ??C (98 ??F) 07/14/2011 12:58 PM EDT Respiratory Rate 18 07/14/2011 12:58 PM EDT Oxygen Saturation 97% 07/14/2011 12:58 PM EDT on jessica m air Inhaled Oxygen Concentration - - Weight 71.2 kg (157 lb) 07/14/2011 12:58 PM EDT Height 162.6 cm (5' 4) 07/14/2011 12:58 PM EDT Body Mass Index 26.95 07/14/2011 12:58 PM EDT documented in this encounter Patient Instructions Patient InstructionsMare Orozco MD - 07/14/2011 1:50 PM EDT 1. Continue vioq-hvt-kzveann medication for cough. 2. You can fill the prescription for the codeine-guaifenesin cough syrup if the umft-iel-yyffcjg medication is not working any more. 3. Call if you develop fevers and chills again or worsening trouble breathing. documented in this encounter Progress Notes Mare Orozoc MD - 07/14/2011 1:39 PM EDT Subjective: Patient ID: Alfredito Mina is a 71 y.o. male. Cough This is a new problem. The current episode started 1 to 4 weeks ago. The problem has been unchanged.The problem occurs constantly. The cough is productive of sputum (sometimes brown in the morning, but white during the day). Associated symptoms include chills (but improving), a fever (but improving) and shortness of breath (in the morning). Pertinent negatives include no chest pain. Exacerbated by: seasonal allergies - pollen. 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 He has tried OTC cough suppressant for the symptoms. The treatment provided mild relief. h/o lung cancer - right side - s/p resection Shortness of Breath Associated symptoms include a fever (but improving). Pertinent negatives include no chest pain. h/o lung cancer - right side - s/p resection. Review of Systems Constitutional: Positive for fever (but improving) and chills (but improving). Respiratory: Positive for cough and shortness of breath (in the morning). Cardiovascular: Negative for chest pain. Objective: Physical Exam Constitutional: He appears well-developed and well-nourished. No distress. Intermittent throat clearing HENT: Head: Normocephalic and atraumatic. Mouth/Throat: Oropharynx is clear and moist. No oropharyngeal exudate. Eyes: EOM are normal. Pupils are equal, round, and reactive to light. No scleral icterus. Neck: Normal range of motion. Neck supple. Right anterior cervical lymph node ~1cm on lower neck, mobile, nontender. Pulmonary/Chest: Effort normal and breath sounds normal. No respiratory distress. He has no wheezes.He has no rales. Scar on mid-back from prior surgery, well-healed. Lymphadenopathy: He has cervical adenopathy. Assessment and Plan: 71 yo m who presents for f/u after recent ED visit at [facility] for now a total of 2 weeks of persistent cough following some URI symptoms, fevers, and chills about two weeks ago. [facility] and on exam today, no evidence of pneumonia. Likely post-viral cough, perhaps with some contribution of postnasal drip from allergies. He states that OTC cough suppressant isworking for him, but that he was just concerned that the cough has been persistent. -Reassured -Continue OTC cough suppressant -If OTC cough suppressant is not working, Rx given for codeine-guaifenesin cough syrup -RTC prn documented in this encounter Plan of Treatment Upcoming Encounters Date Type Specialty Care Team Description 10/11/2022 Office Visit Dermatology Virgilio Mckeon MD [facility] DR CHRISTIANO HENSON-DERMAT OLOGY [place], [place] [address] (Wo rk) 10/16/2022 Office Visit Otolaryngology Frank Buchanan MD [facility] OTOLARYNGOLOGY Sarah EPT. [place], [place] [address] (Wo rk) 11/29/2022 Appointment Hematology and Oncology 11/29/2022 Office Visit Radiation Oncology Emerald Leyva APRN [facility] RADIATION ONCCESAR GY [place], [place] [address] (Wo rk) documented as of this encounter Visit Diagnoses Diagnosis Cough - Primary documented in this encounter Care Teams Plastic Top Assembler Relationship Specialty Start Date End Date Giorgio Cardona MD PCP - General 10/04/10 04/10/17 [facility] [place] [address] documented as of this encounter
--- OUTSIDE RECORDS SUMMARY | 2022-10-09 16:20 | XMS_ITS | Encounter Summary ---
:1940 Author Organization [facility] [place] [address] Care Team Providers Name Role Phone Giorgio Cardona MD Primary Care Provider Reason for Visit Reason Comments Right Knee Pain Encounter Details Date Type Department Care Team Description 05/18/2011 Office Visit Orthopaedics at [facility] Alessio Quezada ([facility] MD Lexy joint disease) of [facility] (Primary Dx) [place] [address] CENTER [phone] ORTHOPAEDIC SURGERY [place], [place] [address] Social History Tobacco Use Types Packs/Day Years Used Date Smoking Tobacco: Never Smokeless Tobacco: Never Alcohol Use Standard Drinks/Week Comments No 0 (1 standard drink = 0.6 oz pure alcoho l) Sex Assigned at Date Recorded Not on file documented as of this encounter Last Filed Vital Signs Vital Sign Reading Time Taken Comments Blood Pressure 132/66 05/18/2011 4:47 PM EDT Pulse - - Temperature - - Respiratory Rate - - Oxygen Saturation - - Inhaled Oxygen Concentration - - Weight 66.7 kg (147 lb) 05/18/2011 4:47 PM EDT Height 168.9 cm (5' 6.5) 05/18/2011 4:47 PM EDT Body Mass Index 23.37 05/18/2011 4:47 PM EDT documented in this encounter Progress Notes Alessio Quezada - 05/18/2011 5:38 PM EDT I saw Mr. 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 It did not do very much for his knee. 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 He was wondering whether or not something less than joint replacement could be done and certainly we will looking at this gentleman, who lacks a few degrees of full extension and has a noticeable varus attitude with instability in the coronal plane with valgus stress applied, but no instability in the sagittal plane that there is no cartilage in the inner portion of the joint, so I do not think anything short of joint replacement is really going to help in his age group. His bone stock is pretty good and he is actually a fairly healthy gentleman taking furosemide, potassium supplements, some Tenormin for his hypertension along with the furosemide. Some Hytrin again to hypertensive medication, naproxen sodium which he takes as noted, but for the prostate not for his knee and omeprazole for his GERD with a negative endoscopy, which is something that we had discussed when I last saw him. In any event, his range is from about five degrees to about 95 degrees and with his x-ray showing virtual bone on bone. He would like to have the surgery done and I think it is very legitimate to have it done after his dental caries are done within, I guess that is going to be completed really soon. What he would like to do is to probably have the surgery in the fall. He will contact us and we will see him again prior to the joint replacement. The goals and risks have already been discussed when I last saw him and again I still think that he would be a very good candidate for a fixed platform stabilized knee. If however he needs some relief between now and then I think a steroid injection may afford him some relief and I gave him my executive legal secretary's number to call so he could set that up. CC: Giorgio Cardona [place]. [place] [address] documented in this encounter Plan of Treatment Upcoming Encounters Date Type Specialty Care Team Description 10/11/2022 Office Visit Dermatology Virgilio Mckeon MD [facility] DR CHRISTIANO HENSON[facility] OLOGY [place], [place] [address] (Wo rk) 10/16/2022 Office Visit Otolaryngology Frank Buchanan MD [facility] OTOLARYNGOLOGY Sarah EPT. [place], [place] [address] (Wo rk) 11/29/2022 Appointment Hematology and Oncology 11/29/2022 Office Visit Radiation Oncology Emerald Leyva APRN [facility] RADIATION ONCOLO GY [place], [place] [address] (Wo rk) documented as of this encounter Visit Diagnoses Diagnosis DJD (degenerative joint disease) of knee - Primary Osteoarthrosis, unspecified whether gene ralized or localized, lower leg documented in this encounter Care Teams Instructor Ground Services Relationship Specialty Start Date End Date Giorgio Cardona MD PCP - General 10/04/10 04/10/17 [facility] [place] [address] documented as of this encounter
--- OUTSIDE RECORDS SUMMARY | 2022-10-09 16:20 | XMS_ITS | Encounter Summary ---
:1940 Author Organization [facility] [place] [address] Care Team Providers Name Role Phone Giorgio Cardona MD Primary Care Provider Encounter Details Date Type Department Care Team Description 09/13/2011 Orders Only Internal Medicine at [facility] Giorgio Cardona MD Lung cancer; [facility] [address]; [place] [address] GENERAL INTERNAL Dyslipidemia [phone] MEDICINE [place], [place] [address] (Wo rk) Social History Tobacco [...] Visit Dermatology Virgilio Mckeon MD [facility] ER DR CHRISTIANO HENSON-DERMAT OLOGY [place], [place] [address] (Wo rk) 10/16/2022 Office Visit Otolaryngology Frank Buchanan MD [facility] ER OTOLARYNGOLOGY Sarah EPT. [place], [place] [address] (Wo rk) 11/29/2022 Appointment Hematology and Oncology 11/29/2022 Office Visit Radiation Oncology Emerald Leyva, [facility] [place] [address] (Wo rk) documented as of this encounter Results (ABNORMAL) Lipid panel (fasting) (09/18/2011 9:53 AM EST) athologist Signature Chol, Total 199 <=199 mg/dL CERNER MILLENNIUM Comment: Recommendations of the NCEP Adult Treatm ent Panel for the following risk cutoff thresholds for the [place] populatio n: Desirable: <200 mg/dL Borderline High: 200-239 mg/dL High: > or = 240 mg/dL Triglycerides 71 <=149 mg/dL CERNER MILLENN IUM Comment: Reference Range: Normal triglycerides: ??<150 mg/dL Borderline high: ??150-199 mg/dL High: ??200-499 mg/dL Very high: ??>bl=452 mg/dL KENDRA 2001; 285(19):4171-9087 HDL 79 >=40 mg/dL CERNER MILLENNIUM Comment: Reference range: ??Low HDL: ?? < 40 mg/dL ??Normal: ?40-60 mg/dL ??Desirable: > 60 mg/dL KENDRA 2001; 285(19):1375-3901 LDL Cholesterol 106 (H) <=99 mg/dL CERNER PATRICK NIUM Comment: Reference range: ?? Optimal: ?<100 mg/dL ?? Near Optimal/Above Optimal: ?? 100-1 29 mg/dL ?? Borderline high: ?130-159 mg/dL ?? High: ? 160-189 mg/dL ?? Very high: ?>eu=772 mg/dL KENDRA 2001: 285(19):7547-8275 Chol/HDL Ratio 2.5 ratio CERNER MILLENNI UM Comment: A Cholesterol to HDL ratio below 4:1 is desirable. ??Studies suggest that increased CAD risk occurs at ratios abov e 5 for females and above 6 for men. ? [place] Heart Association ??(htt p://www.americanheart.org) ? Anay Int Med, 1994; 121:641 ? AM J Med, 1998; 105(1A):48S Specimen Anatomical Collection Method Collection Time Receive d Time (Source) Location / / Volume Laterality Blood specimen 09/18/2011 9:53 AM 011 (specimen) EST 10:01 AM EST Giorgio Cardona MD CHEMISTRY ORDERABLES Performing Organization Address City/[facility]/ZIP Code Phon e Number [address] [facility] Vitamin D2 and D3 25 Hydroxy (09/18/2011 9:53 AM EST) athologist Signature 25-Hydroxy D2 <4.0 ng/mL [facility] Comment: Test Performed by: [facility] [place] [address] Director School Of Nursing: Skylar Purvis, Ph. D. 25-Hydroxy D3 27 ng/mL [facility] Comment: Test Performed by: [facility] [place] [address] Director School Of Nursing: Skylar Purvis, Ph. D. 25-OH Vit D Total 27 ng/mL [facility] Comment: -- REFERENCE VALUE -- 25-HYDROXY D TOTAL (D2+D3) Optimum levels in the normal population are 25-80 Test Performed by: [facility] [place] [address] Director School Of Nursing: Skylar Purvis, Ph. D. Specimen Anatomical Collection Method Collection Time Receive d Time (Source) Location / / Volume Laterality Blood specimen 09/18/2011 9:53 AM 011 (specimen) EST 12:11 PM EST Giorgio Cardona MD CHEMISTRY ORDERABLES Performing Organization Address City/[facility]/ZIP Code Phon e Number [facility] [place] [address] CERNER MILLENNIUM (ABNORMAL) Comprehensive [...] Cardona MD CHEMISTRY ORDERABLES Performing Organization Address City/[facility] [place] [address] CERNER MILLENNIUM Vitamin B12 (09/18/2011 9:53 AM EST) athologist Signature Vitamin B-12 [phone] CERNER pg/mL MILLENNIUM Specimen Anatomical Collection Method Collection Time Receive d Time (Source) Location / / Volume Laterality Blood specimen 09/18/2011 9:53 AM 011 (specimen) EST 10:01 AM EST Giorgio Cardona MD CHEMISTRY ORDERABLES Performing Organization Address City/[facility] [place] [address] CERNER MILLENNIUM Folate, serum (09/18/2011 9:53 AM EST) athologist Signature Folate Lvl 18.9 7.4 - 35.0 CERNER ng/mL MILLENNIUM Specimen Anatomical Collection Method Collection Time Receive d Time (Source) Location / / Volume Laterality Blood specimen 09/18/2011 9:53 AM 011 (specimen) EST 10:01 AM EST Giorgio Cardona MD CHEMISTRY ORDERABLES Performing Organization Address City/State/ZIP [place] [address] CERNER MILLENNIUM Hemoglobin A1c (09/18/2011 9:53 AM EST) [facility] Method Time Signature Hemoglobin A1C 5.6 4.3 - 6.1 CERNER % MILLENNIUM Est Avg Gluc See note mg/dL CERNER [facility] Comment: Estimated Average Glucose not appropriat [...] website: ??http://professional.diabetes.org/gluc osecalculator.aspx Reference: Eliot FAJARDO, Abhishek Rodriguez, Denisse R, et al. ??Tr anslating the A1C assay into estimated average glucose values. ??Diabetes Care 2008:31(8):9999-2670. Specimen Anatomical Collection Method Collection Time Receive d Time (Source) Location / / Volume Laterality Blood specimen 09/18/2011 9:53 AM 011 (specimen) EST 10:01 AM EST Giorgio Cardona MD CHEMISTRY ORDERABLES Performing Organization Address City/[facility]/[place] [address] CERNER MILLENNIUM (ABNORMAL) CBC [...] Cardona MD HEMATOLOGY ORDERABLES Performing Organization Address City/[facility]/[place] [address] CERNER MILLENNIUM documented in this encounter Visit Diagnoses Diagnosis Lung cancer Malignant neoplasm of bronchus and lung, unspecified site Hypothyroid Unspecified hypothyroidism Dyslipidemia Other and unspecified hyperlipidemia documented in this encounter Care Teams Data Center Solutions Architect Relationship Specialty Start Date End Date Giorgio Cardona MD PCP - General 10/04/10 04/10/17 [facility] [place] [address] documented as of this encounter
--- OUTSIDE RECORDS SUMMARY | 2022-10-09 16:20 | XMS_ITS | Encounter Summary ---
:1940 Author Organization [facility] [place] [address] Care Team Providers Name Role Phone Giorgio Cardona MD Primary Care Provider Reason for Visit Reason Onset Date Comments Other 05/05/2011 Encounter Details Date Type Department Care Team Description 05/05/2011 Telephone Internal Medicine at [facility] Giorgio Cardona MD [place] [address] GENERAL INTERNAL MEDICINE [phone] [place], [place] [address] (Wo rk) Social History Tobacco Use Types Packs/Day Years Used Date Smoking Tobacco: Never Alcohol Use Standard Drinks/Week Comments No 0 (1 standard drink = 0.6 oz pure alcoho l) Sex Assigned at Date Recorded Not on file documented as of this encounter Miscellaneous Notes Telephone Encounter - Onedia Bridges RN - 05/05/2011 11:37 AM EDT Pt left message on triage line stating he was having problems with his knee and would like it lookedat. Call placed to pt, message left requesting call back to arrange appt documented in this encounter Plan of Treatment Upcoming Encounters Date Type Specialty Care Team Description 10/11/2022 Office Visit Dermatology Virgilio Mckeon MD [facility] [address]-DERMAT OLOGY [place], [place] [address] (Wo rk) 10/16/2022 Office Visit Otolaryngology Frank Buchanan MD [facility] OTOLARYNGOLOGY Sarah EPT. [place], [place] [address] (Wo rk) 11/29/2022 Appointment Hematology and Oncology 11/29/2022 Office Visit Radiation Oncology Emerald Leyva APRN [facility] RADIATION ONCOLO GY [place], [place] [address] (Wo rk) documented as of this encounter Visit Diagnoses Not on filedocumented in this encounter Care Teams Motion Picture Projectionist Relationship Specialty Start Date End Date Giorgio Cardona MD PCP - General 10/04/10 04/10/17 [facility] [place] [address] documented as of this encounter
--- OUTSIDE RECORDS SUMMARY | 2022-10-09 16:20 | XMS_ITS | Encounter Summary ---
:1940 Author Organization [facility] [place] [address] Care Team Providers Name Role Phone Giorgio Cardona MD Primary Care Provider Reason for Visit Reason Comments Right Knee Pain Encounter Details Date Type Department Care Team Description 09/18/2011 Office Visit Orthopaedics at [facility] Chan-Marker, Osteoarthritis, knee (Primar y Dx); [facility] Alessia Funes APRN Osteoarthritis, knee; [facility] [place] [address] CENTER [phone] [place] [address] Social History Tobacco Use Types Packs/Day Years Used Date Smoking Tobacco: Never Smokeless Tobacco: Never Alcohol Use Standard Drinks/Week Comments No 0 (1 standard drink = 0.6 oz pure alcoho l) Sex Assigned at Date Recorded Not on file documented as of this encounter Last Filed Vital Signs Vital Sign Reading Time Taken Comments Blood Pressure 148/78 09/18/2011 4:22 PM EST Pulse 67 09/18/2011 4:22 PM EST Temperature - - Respiratory Rate - - Oxygen Saturation - - Inhaled Oxygen Concentration - - Weight 69.9 kg (154 lb 1.6 oz) 09/18/2011 4:22 PM EST Height 165.1 cm (5' 5) 09/18/2011 4:22 PM EST pt state d Body Mass Index 25.64 09/18/2011 4:22 PM EST documented in this encounter Patient Instructions Patient Elizabeth Hills, EFFICIENCY ENGINEER - 09/18/2011 4:25 PM EST Welcome to Mpayy, your secure online access to your electronic medical record at [facility]. Using Mpayy you will be able to send messages to your providers, view your test results, renew prescriptions, schedule appointments, and much more. Follow these instructions to enter your personal Mpayy account for the first time: 1. Start your internet browser. Go to [email or web address] and click on the Mpayy link. 2. Click SIGN UP NOW to go to the NEW MEMBER SIGN UP page. 3. Enter your Mpayy Access Code exactly as it appears below. (You will not need this access code after you have completed the sign-up process.) ?? Your Mpayy Access Code: [email or web address] ?? Expires: 11/02/11 04:25 PM ?? IMPORTANT: This Access Code will on the above mentioned date. If you do not sign up beforethis date, you will need to request a new Access Code number. 4. Enter your Date of (mm/dd/yyyy) and zip code click SUBMIT to go to the next page. 5. Create a Mpayy identification (ID). This will be your Mpayy login ID and cannot be changed, so think of one that is secure and easy to remember. 6. Create a password which you can change at any time. Your password must contain six (6) letters and two (2) numbers. 7. Enter your Password Reset Question and Answer. This will be used if you forget your password. 8. Enter your e-mail address. This is used to let you know when new information is available in Mpayy. 9. Click SIGN UP to complete the process. You can now view your electronic medical record. If you have any questions about Mpayy or your Access Code, please call for [place], for [place] or for [place]. If you need technical support, please e-mail [email or web address]. Remember, myD-H is NOT for urgent needs! Always dial 911 for medical emergencies. documented in this encounter Progress Notes RumaAlessia, ROSITA - 09/18/2011 4:26 PM EST DATE OF SERVICE: 09/18/2011 CHIEF COMPLAINT: Right knee pain. SUBJECTIVE: Mr. Mina reports back to clinic. He had spoken to friends about the possibility of the Synvisc injection. He has known to be qpyg-vs-atol on the right knee, however, and after speaking with him I would stay him from that option only because I do not think he is getting the lasting relief he is seeking. He admits that the last injection he had did not take all his pain away. For instance, he is out climbing around on rocks, on out of doors, and hiking, he still has some medial knee pain, but the last injection lasted several months and allowed him to sleep better. He is taking Tylenol regularly. He has tried Advil as well. He more recently finds that the Advil Arthritis Strength is helping. He is using no assistive devices to get around. Does not wear any bracing. Only ices the knee occasionally. Since last seen, it has been discovered that he has a thyroid issue and thyroid Surgery is pending. He will let us know once he is over the surgery. Unfortunately, we had to postpone his knee surgery in the past a few times because of other medical issues popping up. Hopefully, this will not delay him too long, but he understands the thyroid should take precedence over his total joint Dr. Cardona feels. OBSERVED: The patient reports to clinic. His position changes are brisk. He is using no assistive device to get around. He appears thinner. He has been trying to lose weight to keep his blood sugars under control, and today he is 5 feet 5 inches and 154 pounds, down from last year. The knee grid is dropped. There is no effusion, heat, or erythema in the knee. The medial joint line is exquisitely tender. X-rays: None today. Assessment: Severe right knee OA, patient would like a steroid injection today. I have made the following determinations: Knee Exam: Right Prior surgery on this joint: No Gait Abnormality: Antalgic Knee ROM: Extension:0 Flexion: 120 Alignment: 0-4 degrees Neutral Stability: A/P Translation <5mm. Varus <5mm Valgus <5mm Extension La degrees or less Radiographic evidence of joint damage: [0= normal; 1=minimal ; 2= some osteophytes , some narrowing ; 3= moderate osteophytes, significant narrowing, mild deformity; 4= large osteophytes, marked narrowing, obvious deformity]: none today Patella Tracking: Normal Skin Integrity: Normal Pulses Palpable: Right PT: Yes Right DP:Yes Motor/Sensory: Distal Motor: Normal Distal Sensory: Normal Quadriceps Strength: 5 X-rays: No new films today. Assessment: Severe OA right knee Plan: Goals risks and concerns of a steroid [...] joint I then instilled 40 mg of Kenelog. A band-aid wasplaced. The patient will keep the knee dry overnight, no shower until tomorrow, no pool or water submersionfor 48 hours. Effects of the cortisone may take up to 7-10 days. The patient may not repeat the injection for at least 3 months. They will call if they experience any fever, chills or drainage from theneedle insertion site which may indicate infection. The patient is in agreement with this plan. He will call us to schedule his right knee arthroplasty once he is 3-6 months over his thyroid surgery. Subjective: Patient ID: Alfredito Mina is a 71 y.o. male. HPI ROS Objective: Physical Exam Ortho Exam Neurologic Exam Assessment and Plan: No problem-specific visit notes found for this encounter. documented in this encounter Plan of Treatment Upcoming Encounters Date Type Specialty Care Team Description 10/11/2022 Office Visit Dermatology Virgilio Mckeon MD [facility] DR CHRISTIANO HENSON-DERMAT OLOGY [place], [place] [address] (Wo rk) 10/16/2022 Office Visit Otolaryngology Frank Buchanan MD [facility] OTOLARYNGOLOGY Sarah EPT. [place], [place] [address] (Wo rk) 11/29/2022 Appointment Hematology and Oncology 11/29/2022 Office Visit Radiation Oncology Emerald Leyva APRN [facility] RADIATION ONCOLO GY [place], [place] [address] (Wo rk) documented as of this encounter Visit Diagnoses Diagnosis Osteoarthritis, knee - Primary Osteoarthrosis, unspecified whether gene ralized or localized, lower leg Osteoarthritis of knee Osteoarthrosis, unspecified whether gene ralized or localized, lower leg documented in this encounter Administered Medications Inactive Administered Medications - up to 3 most recent administrations Medication Order MAR Action Action Date Dose Rate Site triamcinolone acetonide (KENALOG) Given 09/18/2011 4:24 PM EST 4 0 mg injection 40 mg 40 mg, Intra-articular, ONCE, 1 dose, On 09/18/11 at 1645, Routine documented in this encounter Care Teams Cable Maintainer Relationship Specialty Start Date End Date Giorgio Cardona MD PCP - General 10/04/10 04/10/17 [facility] [place] [address] documented as of this encounter
--- OUTSIDE RECORDS SUMMARY | 2022-10-09 16:20 | XMS_ITS | Encounter Summary ---
:1940 Author Organization [facility] [place] [address] Care Team Providers Name Role Phone Giorgio Cardona MD Primary Care Provider Reason for Visit Reason Onset Date Comments Other 07/13/2011 Encounter Details Date Type Department Care Team Description 07/13/2011 Telephone Internal Medicine at [facility] Giorgio Cardona MD Other [facility] [address] GENERAL INTERNAL MEDICINE [phone] [place], [place] [address] (Wo rk) Social History Tobacco Use Types Packs/Day Years Used Date Smoking Tobacco: Never Smokeless Tobacco: Never Alcohol Use Standard Drinks/Week Comments No 0 (1 standard drink = 0.6 oz pure alcoho l) Sex Assigned at Date Recorded Not on file documented as of this encounter Miscellaneous Notes Telephone Encounter - Oneida Bridges RN - 07/13/2011 9:23 AM EDT Message left on triage line yesterday PM stating pt is having a bad time breathing and wondering whyno one has called him. No previous messages received from pt. [place] did come to office asking ifanyone had been trying to contact pt yesterday afternoon without mention of illness. Call placed to pt this am, message left on answering machine requesting call back to schedule appointment. documented in this encounter Plan of Treatment Upcoming Encounters Date Type Specialty Care Team Description 10/11/2022 Office Visit Dermatology Virgilio Mckeon MD [facility] DR CHRISTIANO HENSON-DERMAT OLOGY [place], [place] [address] (Wo rk) 10/16/2022 Office Visit Otolaryngology Frank Buchanan MD [facility] OTOLARYNGOLOGY Sarah EPT. [place], [place] [address] (Wo rk) 11/29/2022 Appointment Hematology and Oncology 11/29/2022 Office Visit Radiation Oncology Emerald Leyva APRN [facility] RADIATION ONCOLO GY [place], [place] [address] (Wo rk) documented as of this encounter Visit Diagnoses Not on filedocumented in this encounter Care Teams Home Security Alarm Installer Relationship Specialty Start Date End Date Giorgio Cardona MD PCP - General 10/04/10 04/10/17 [facility] [place] [address] documented as of this encounter
--- OUTSIDE RECORDS SUMMARY | 2022-10-09 16:20 | XMS_ITS | Encounter Summary ---
:1940 Author Organization [facility] [place] [address] Care Team Providers Name Role Phone Giorgio Cardona MD Primary Care Provider Reason for Visit Reason Onset Date Comments Other 07/10/2011 Encounter Details Date Type Department Care Team Description 07/10/2011 Telephone Internal Medicine at [facility] Giorgio Cardona MD Other [facility] [place] [phone] GENERAL INTERNAL MEDICINE [phone] [place], [place] [address] (Wo rk) Social History Tobacco Use Types Packs/Day Years Used Date Smoking Tobacco: Never Smokeless Tobacco: Never Alcohol Use Standard Drinks/Week Comments No 0 (1 standard drink = 0.6 oz pure alcoho l) Sex Assigned at Date Recorded Not on file documented as of this encounter Miscellaneous Notes Telephone Encounter - Oneida Bridges RN - 07/10/2011 5:36 PM EDT Message left on triage line stating that pt has had cold symptoms x 1 week, coughing and short of breath when coughing. Call placed to pt's home, message lleft on answering machine requesting call back to schedule an appt. Pt instructed on message that if he is short of breath at rest or while talking he should be evaluated urgently locally in ED documented in this encounter Plan of Treatment Upcoming Encounters Date Type Specialty Care Team Description 10/11/2022 Office Visit Dermatology Virgilio Mckeon MD [facility] DR CHRISTIANO HENSON-DERMAT OLOGY [place], [place] [address] (Wo rk) 10/16/2022 Office Visit Otolaryngology Frank Buchanan MD [facility] OTOLARYNGOLOGY Sarah EPT. [place], [place] [address] (Wo rk) 11/29/2022 Appointment Hematology and Oncology 11/29/2022 Office Visit Radiation Oncology Emerald Leyva APRN [facility] RADIATION ONCOLO GY [place], [place] [address] (Wo rk) documented as of this encounter Visit Diagnoses Not on filedocumented in this encounter Care Teams Glaze Supervisor Relationship Specialty Start Date End Date Giorgio Cardona MD PCP - General 10/04/10 04/10/17 [facility] GENERAL [place] [address] documented as of this encounter
--- OUTSIDE RECORDS SUMMARY | 2022-10-09 16:20 | XMS_ITS | Encounter Summary ---
:1940 Author Organization [place] [address] Care Team Providers Name Role Phone Giorgio Cardona MD Primary Care Provider Reason for Visit Reason Comments Follow-up prostate cancer Encounter Details Date Type Department Care Team Description 06/08/2011 Follow-Up Radiation Oncology at [place], Danna Pugh APRN Prostate cancer [address] (Primary Dx) [address] [place] [address] [place] [address] [id number] (Wo rk) Social History Tobacco Use Types Packs/Day Years Used Date Smoking Tobacco: Never Smokeless Tobacco: Never Alcohol Use Standard Drinks/Week Comments No 0 (1 standard drink = 0.6 oz pure alcoho l) Sex Assigned at Date Recorded Not on file documented as of this encounter Last Filed Vital Signs Vital Sign Reading Time Taken Comments Blood Pressure 130/71 06/08/2011 10:59 AM EDT Pulse 66 06/08/2011 10:59 AM EDT Temperature 37 ??C (98.6 ??F) 06/08/2011 10:59 AM EDT Respiratory Rate 18 06/08/2011 10:59 AM EDT Oxygen Saturation 98% 06/08/2011 10:59 AM EDT Inhaled Oxygen Concentration - - Weight 69.5 kg (153 lb 3.5 oz) 06/08/2011 10:59 AM EDT Height - - Body Mass Index 24.36 06/01/2011 8:02 AM EDT documented in this encounter Patient Instructions Patient InstructionsBecka Dean APRN - 06/08/2011 12:08 PM EDT Doing well and we will see you again in six months with a repeat PSA documented in this encounter Progress Notes Becka Dean APRN - 06/08/2011 12:07 PM EDT Subjective: Patient ID: Alfredito Mina is a 71 y.o. male.who is in radiation oncology clinic today for regular followup. He was treated with external beam radiation therapy for prostate cancer and completed treatment 04/12/2007. He was enrolled in a clinical trial--RTOG 0126 arm 2. He was last seen in radiation oncology 12/08/2010. at which time his PSA was stable. [...] were taken and the specimen reported in [facility] pathology under session #[id number] prostate: The right lobe apex, mid, and base negative; the left apex was 3 + 3 in 40% of one core; the left mid was 3 + 4 in 50% of one core; and the left base showed a 3 + 4 in 5% in one of two cores. This information was reviewed at [facility] on October 19, 2006, and the report paralleled that given by the [facility]. The [facility] session number was [id number]. The patient was then seen by Dr. Mixon on December 26, 2005, and after review, his note indicates an IPS of 9/35. He had no difficulties with erectile dysfunction. His physical examination revealed a 30-gram prostate without nodularity, and the gland was smooth. With a PSA indicated of 5.4, a Kingston score of 4 + 3 = 7/10, staged as a T1c N0, it was considered intermediate risk with a possibility oforgan-confined disease of about 50%, seminal vesicle 8%, and lymph nodes 3%. [facility] five-year survival review was indicated at surgery at 89, radiation at 91, and brachytherapy 85. The patient was presented with treatment options, and a radical laparoscopic prostatectomy was recommended. He elected to be treated with radiation therapy and received 7920 cGy and completed treatment on 04/12/2007. Problem List: 1. Adenocarcinoma of the prostate. [id number], Kingston 4+3, left lobe involved. OLGA (-), PSA [...] differentiated. Tumor Size: 1.1 cm, gross measure. 01/25/2010: PFT--FVC 2.50 (75%), FEV1= 1.46 (60%) 09/19/2010: Chest CT: Stable triangular opacity in the right lateral costophrenic angle is indeterminate in nature, attention on follow-up is recommended. 15 Pancreatic cyst. 10/24/2010 16. Mild radiation proctitis 17 colonoscopy 08/11/2010 with polyp --tubular adenoma 18 diverticulosis --sigmoid Family History: Mother alive at 103, asthma, osteoporosis. Father at age 55, smoked too much, heart problems. Social History: [place]. 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 Single. Five children and sevengrandkids. One daughter with viral respiratory problems. 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 Used to play basketball. No alcohol. Current outpatient prescriptions ordered prior to encounter Medication Sig Dispense Refill ??? furosemide (LASIX) 20 [...] ??? naproxen sodium (ALEVE) 220 mg tablet Interim History: Mr Mina reports that he is doing well. 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 He denies urinary problems at this time. His IPSS score is 6. He is pleased with his overall urinarystatus. International Prostate Symptom Score Total Score__6__ Not at all Less than one time [...] X His bowels have been moving regularly with the senna and colace. He denies hematochezia, melena, constipation and diarrhea. His BERNADINE score is 18. He has been able to have an erection adequate for sexual function. He reports that his respiratory symptoms have resolved. He denies shortness of breath, no dyspnea, no cough no hemoptysis He has ongoing severe knee pain due to OA and is again reconsidering surgery. Review of Systems Constitutional: Positive for fatigue. Negative for fever and chills. Fatigue am. Still playing music and working six days a week (>40 hours a week) Caregiver for 104 yo mother. Patient daughter there day time Respiratory: Positive for cough. Negative for shortness of breath and wheezing. White sputum Cough if eats too fast Cardiovascular: Negative for chest pain and leg swelling. numbness sensation legs Gastrointestinal: Positive for constipation. Negative for nausea, diarrhea, blood in stool and abdominal distention. Genitourinary: Positive for testicular pain. Negative for dysuria, urgency, frequency, hematuria, decreased urine volume and difficulty urinating. Occ testes are sore. Musculoskeletal: Knee pain Psychiatric/Behavioral: always thinking affects sleep--worries about financial issues. Recent Review Flowsheet Data View Complete Flowsheet Oncology Vitals 06/08/2011 Weight 69.5 kg Height - BSA (Calculated - sq m) - BMI (Calculated) - Temp 98.6 Temp src 1 Pulse 66 Heart Rate Source Left;NIBP Resp 18 BP 130/71 BP Location Left arm Patient Position Sitting SpO2 98 Pain Level 5 Karnofsky Score - Oncology Vitals 06/08/2011 Height (cm) - Weight (kg) - BSA (m2) - Objective: Physical Exam Vitals reviewed. Constitutional: He is oriented to person, place, and time. He appears well- developed and well-nourished. No distress. HENT: Head: Normocephalic and atraumatic. Eyes: No scleral icterus. Neck: Normal range of motion. Neck supple. Cardiovascular: Normal rate and regular rhythm. Exam reveals no gallop and no friction rub. Murmur heard. Pulmonary/Chest: Effort normal and breath sounds normal. No respiratory distress. He has no wheezes.He has no rales. He exhibits no tenderness. Abdominal: Soft. Bowel sounds are normal. He exhibits no distension and no mass. No tenderness. He has no rebound and no guarding. Genitourinary: Rectum normal and penis normal. Guaiac negative stool. No hemorrhoids, prostate smooth, flat, not nodular No testicular masses. Musculoskeletal: Normal range of motion. He exhibits [...] content normal. Laboratory Studies: date PSA Testosterone 05/03/2011 0.97 360 12/07/2010 1.68 424 09/12/2010 1.39 06/20/2010 1.58 03/16/2010 2.27 12/14/2009 2.3 448 11/01/09 2.8 06/22/09 2.4 01/12/09 1.6 10/14/08 1.9 09/21/08 3.5 05/20/08 1.0 02/10/08 0.9 11/19/07 1.5 08/07/07 1.3 05/27/07 2.9 post XRT 10/25/06 5.4 07/26/06 5.1 12/12/05 4.7 09/2005 4.4 09/2004 3.8 Assessment and Plan: Assessment Adenocarcinoma of the prostate. Mr Mina is having a stable biochemical response to his prostate cancer treatment with JOSUE. Plan: Patient is to return to radiation oncology in six months for repeat PSA, testosterone and clinical evaluation. He is to call if he has questions or concerns in the meantime. documented in this encounter Procedure Notes Provider, Scanning - 06/13/2011 2:53 PM EDTAssociated Order(s): SCAN DOC: LAB documented in this encounter Plan of Treatment Upcoming Encounters Date Type Specialty Care Team Description 10/11/2022 Office Visit Dermatology Virgilio Mckeon MD [facility] DR CHRISTIANO HENSON-DERMAT [place], [place] [address] (Wo rk) 10/16/2022 Office Visit Otolaryngology Frank Buchanan MD [facility] OTOLARYNGOLOGY D EPT. [place], [place] [address] (Wo rk) 11/29/2022 Appointment Hematology and Oncology 11/29/2022 Office Visit Radiation Oncology Emerald Leyva APRN [facility] RADIATION ONCOLO GY [place], [place] [address] (Wo rk) documented as of this encounter Procedures Procedure Name Priority Date/Time Associated Diagnosis Comme nts LAB SCAN 06/13/2011 2:53 PM Results f or this EDT procedure are i n the results section . documented in this encounter Results SCAN DOC: LAB (06/13/2011 2:53 PM EDT) Narrative 06/13/2011 2:53 PM EDT Procedure Note Provider, Scanning - 06/13/2011 2:53 PM EDT Scanning Provider MEDIA MGR SCAN EXT ORDR/RSLT documented in this encounter Visit Diagnoses Diagnosis Prostate cancer - Primary Malignant neoplasm of prostate documented in this encounter Care Teams Watch Repair Person Relationship Specialty Start Date End Date Giorgio Cardona MD PCP - General 10/04/10 04/10/17 [facility] GENER[place] [address] documented as of this encounter
--- OUTSIDE RECORDS SUMMARY | 2022-10-09 16:20 | XMS_ITS | Encounter Summary ---
:1940 Author Organization [facility] [place] [address] Care Team Providers Name Role Phone Giorgio Carodna MD Primary Care Provider Reason for Visit Reason Comments Cough imm needed: pneumo vax Encounter Details Date Type Department Care Team Description 08/28/2011 Follow-Up Internal Medicine at Deandre Cardona MD Post-nasal drip [facility] (Primary Dx) [facility] [address] Pereira [place] [address] MEDICINE [phone] [place], [place] [address] (Wo rk) Social History Tobacco Use Types Packs/Day Years Used Date Smoking Tobacco: Never Smokeless Tobacco: Never Alcohol Use Standard Drinks/Week Comments No 0 (1 standard drink = 0.6 oz pure alcoho l) Sex Assigned at Date Recorded Not on file documented as of this encounter Last Filed Vital Signs Vital Sign Reading Time Taken Comments Blood Pressure 125/72 08/28/2011 10:16 AM EDT Pulse 68 08/28/2011 10:16 AM EDT Temperature 35.1 ??C (95.2 ??F) 08/28/2011 10:16 AM EDT Respiratory Rate - - Oxygen Saturation 97% 08/28/2011 10:16 AM EDT Inhaled Oxygen Concentration - - Weight 68.9 kg (152 lb) 08/28/2011 10:16 AM EDT Height 162.6 cm (5' 4) 08/28/2011 10:16 AM EDT Body Mass Index 26.09 08/28/2011 10:16 AM EDT documented in this encounter Patient Instructions Patient InstructionsBaGiorgio luciano MD - 08/28/2011 10:46 AM EDT --suggest flonase twice daily each nostril --try lucas 180mg daily at this time. --chest xray documented in this encounter Progress Notes Giorgio Cardona MD - 08/28/2011 10:45 AM EDT SDA Visit History of Presenting Illness: Started out like a routine cold, chills. Then three days started coughing, sneezing, nose running. Then coughing 24/7 x 3 days. He was coughing hard. Gets a tickling in his throat. In the morning when wakes up, then feels stuff going back throat. Feels significant drip in the back of the throat. Took an antibiotic. Took a nasal squirter. Made things run faster - was a prescription medication. Cough is dry. Not productive. Does not drink a lot of water. Nothing coming out of his nose. Then significant dripping after he wakes up. Nothing makes it better/worse. Took zyrtec over the counter. Does not recall trying lucas at this time. Can hear it rattling. has the same issue - she was told that she had a bronchitis. No fevers, chills. Appetite is marginally. Has tried to lose weight Heartburn - worse when he lays down. Omeprazole improves the bitterness as well. Remembers after talking a lot a few years ago, coughs a lot. Patient Active Problem List Diagnoses ??? Post-nasal drip ??? Inguinal hernia recurrent [...] features. 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 [id number]; KRAS negative, EGFR negative --09/2010: CT scan - normal --02/2011: CT scan annual CT's afterwards In the past 7 days, the patient rates pain as 8. --Location of pain: knee --Quality: sharp - awaiting to get his knee replacement In the past 7 days, the patient rates physical health as fair. In the past 7 days, the patient rates mental health, including mood and ability to think, as good. Current outpatient prescriptions:furosemide (LASIX) 20 mg tablet, 40 MG = 2 Tablet(s) PO Once daily and PRN swelling, Disp: , Rfl: ; potassium chloride (K- DUR) 10 mEq tablet, 20meq, PO, Once daily, Disp: , Rfl: ; atenolol (TENORMIN) 50 mg tablet, 50 MG = 1 Tablet(s), PO, Once daily, Disp: , Rfl: ; DOCUSATE SODIUM (COLACE ORAL), , Disp: , Rfl: ; terazosin (HYTRIN) 2 mg capsule, 4 MG = 2 Capsule(s) PO QHS, Disp: , Rfl: Omeprazole 20 mg TbEC, , Disp: , Rfl: ; naproxen sodium (ALEVE) 220 mg tablet, , Disp: , Rfl: ; fluticasone (FLONASE) 50 mcg/Actuation nasal spray, 1 spray by Each Nare route 2 times daily., Disp: 16 g, Rfl: 12; fexofenadine (LUCAS) 180 mg tablet, Take 1 tablet by mouth daily., Disp: 30 tablet, Rfl:12; codeine- guaifenesin (GUAIFENESIN AC) 10-100 mg/5 mL liquid, Take 5-10 mLs by mouth 3 times dailyas needed for Cough., Disp: 120 mL, Rfl: 0 History Social History ??? Marital Status: Single [...] )palpitations Respiratory - ( )SOB, NIEVES ( x)cough, sputum ( )wheezing HEENT - ( ) diffculty swallowing (x ) nasal congestion, postnasal drip Neurological - ( ) numbness, tingling, loss [...] rest or with movement Objective Filed Vitals: 08/28/11 1016 BP: 125/72 Pulse: 68 Temp: 35.1 ??C (95.2 ??F) Height: 162.6 cm (5' 4) Weight: 68.947 kg (152 lb) SpO2: 97% Gen -no acute distress. Alert, responsive and comfortable HEENT - oropharynx moist without lesions. Erythematous nares; cobblestone appearance back of throat. Neck - Full range of motion, no [...] Review: Reviewed lab studies: ( ) No ( ) Yes Reviewed radiology studies: ( ) No (x) Yes Reviewed other studies: ( ) No ( ) Yes - Discussion of test results with performing physician: ( ) Yes Previous communications with patient discussed and confirmed ( ) Yes ( ) n/a Collateral History taken: ( x ) No ( ) Yes - from: Requested old records: ( ) Yes I reviewed/summarized the patient's old medical records in EPIC : ( ) No (x) Yes Discussion with other health care provider: ( ) No ( ) Yes Independently viewed Assessment/Plan: # Post-nasal drip --Discussed in detail. --suggest flonase twice daily each nostril --try lucas 180mg daily at this time. --chest xray If no better consider ENT evaluation I counselled the patient on the above [...] one of my nurses, letter, or myDH. Orders placed in this Encounter: Orders Placed This Encounter Procedure ? ? Xr chest routine pa & lateral Standing Status: Future Number of Occurrences: Standing Expiration Date: 08/28/2012 Order Specific Question: Where will study be performed? Answer: [facility] Order Specific Question: Reason for exam and clinical history: Answer: cough. hx lung ca Order Specific Question: Portable exam? Answer: No Order Specific Question: Stat read required? Answer: No Laboratory Studies No results found for this or any previous visit (from the past 72 hour(s)). documented in this encounter Plan of Treatment Upcoming Encounters Date Type Specialty Care Team Description 10/11/2022 Office Visit Dermatology Virgilio Mckeon MD [facility] DR CHRISTIANO HENSON-DERMAT OLOGY [place], [place] [address] (Wo rk) 10/16/2022 Office Visit Otolaryngology Frank Buchanan MD [facility] OTOLARYNGOLOGY Sarah EPT. [place], [place] [address] (Wo rk) 11/29/2022 Appointment Hematology and Oncology 11/29/2022 Office Visit Radiation Oncology Emerald Leyva APRN [facility] RADIATION ONCCESAR GY [place], [place] [address] (Wo rk) documented as of this encounter Results XR chest routine PA [...] this encounter Visit Diagnoses Diagnosis Post-nasal drip - Primary Postnasal drip Post-nasal drip Postnasal drip documented in this encounter Care Teams Craps Manager Relationship Specialty Start Date End Date Giorgio Cardona MD PCP - General 10/04/10 04/10/17 [facility] GENERAL [place] [address] documented as of this encounter
--- OUTSIDE RECORDS SUMMARY | 2022-10-09 16:20 | XMS_ITS | Encounter Summary ---
:1940 Author Organization [facility] [place] [address] Care Team Providers Name Role Phone Giorgio Cardona MD Primary Care Provider Encounter Details Date Type Department Care Team Description 09/12/[address] Scan at [facility] [place] [address] Social History Tobacco Use Types Packs/Day [...] [facility] DR CHRISTIANO HENSON-DERMAT OLOGY [place], [place] [address] (Wo rk) 10/16/2022 Office Visit Otolaryngology Frank Buchanan MD [facility] OTOLARYNGOLOGY Sarah EPT. [place], [place] [address] (Wo rk) 11/29/2022 Appointment Hematology and Oncology 11/29/2022 Office Visit Radiation Oncology Emerald Leyva APRN [facility] RADIATION ONCCESAR GY [place], [place] [address] (Wo rk) documented as of this encounter Procedures Procedure Name Priority Date/Time Associated Diagnosis Comme nts CT CHEST WO Routine 09/12/2011 1:37 PM Lung cancer Results f or this CONTRAST (GENERIC) EDT [...] site documented in this encounter Care Teams Contact Center Team Lead Relationship Specialty Start Date End Date Giorgio Cardona MD PCP - General 10/04/10 04/10/[address] [facility] [address]LLY [place] [address] documented as of this encounter
--- OUTSIDE RECORDS SUMMARY | 2022-10-09 16:20 | XMS_ITS | Encounter Summary ---
:1940 Author Organization [facility] [place] [address] Care Team Providers Name Role Phone Giorgio Cardona MD Primary Care Provider Reason for Visit Reason Comments Follow-up Encounter Details Date Type Department Care Team Description 03/28/2011 Office Visit General Surgery at Sandra Mendoza, Hos pital discharge [facility] CLINICAL ASSESSMENT MANAGER follow-up (Primary Dx) [facility] [address] [place], [place] GENERAL SURGERY [address] [place] [address] [phone] Social History Tobacco Use Types Packs/Day Years Used Date Smoking Tobacco: Never Alcohol Use Standard Drinks/Week Comments No 0 (1 standard drink = 0.6 oz pure alcoho l) Sex Assigned at Date Recorded Not on file documented as of this encounter Progress Notes Sandra Mendoza, CLINICAL ASSESSMENT MANAGER - 03/28/2011 2:04 PM EDT Mr Mina is here for hospital check. He is approximately 2 weeks s/p open repair of recurrent left inguinal hernia -[place]ynhart. Since his discharge reports he has been doing well, denies fevers chills or malaise, denies abdominal pain, nausea,or Vomiting. Moving his bowels and voiding without difficulty. Eating well, energy good. Exam: Well appearing, moves easily about the exam room and onto the exam table. Left inguinal incision is clean nicely healed, no palpable or visual bulge with valsalva. No erythema, fluctuance, or tenderness about the incision. Impression/plan: Doing well, unremarkable post discharge course. Asked the pt to refrain from lifting >20lbs for 4more weeks. Otherwise, Alfredito may FU with us on a prn basis. documented in this encounter Plan of Treatment Upcoming Encounters Date Type Specialty Care Team Description 10/11/2022 Office Visit Dermatology Virgilio Mckeon MD [facility] DR CHRISTIANO HENSON-DERMAT OLOGY [place], [place] [address] (Wo rk) 10/16/2022 Office Visit Otolaryngology Frank Buchanan MD [facility] OTOLARYNGOLOGY D EPT. [place], [place] [address] (Wo rk) 11/29/2022 Appointment Hematology and Oncology 11/29/2022 Office Visit Radiation Oncology Emerald Leyva APRN [facility] RADIATION ONCOLO GY [place], [place] [address] (Wo rk) documented as of this encounter Visit Diagnoses Diagnosis Hospital discharge follow-up - Primary Other follow-up examination documented in this encounter Care Teams Arcade Technician Relationship Specialty Start Date End Date Giorgio Cardona MD PCP - General 10/04/10 04/10/17 [facility] GENER[place] [address] documented as of this encounter
--- OUTSIDE RECORDS SUMMARY | 2022-10-09 16:20 | XMS_ITS | Encounter Summary ---
:1940 [place] [address] Care Team Providers Name Role Phone Giorgio Cardona MD Primary Care Provider Encounter Details Date Type Department Care Team Description 09/18/2011 Hospital Encounter Laboratory Alessio Quezada ([facility] MD Lexy joint disease) of [place], [place] CENTER [address] ORTHOPAEDIC [phone] [place] [address] Social History Tobacco Use Types Packs/Day Years [...] [facility] DR CHRISTIANO HENSON-DERMAT OLOGY [place], [place] [address] (Wo rk) 10/16/2022 Office Visit Otolaryngology Frank Buchanan MD [facility] OTOLARYNGOLOGY Sarah EPT. [place], [place] [address] (Wo rk) 11/29/2022 Appointment Hematology and Oncology 11/29/2022 Office Visit Radiation Oncology Emerald Leyva APRN [facility] RADIATION ONCCESAR [place], [place] [address] (Wo rk) documented as of this encounter Visit Diagnoses Diagnosis DJD (degenerative joint disease) of knee Osteoarthrosis, unspecified whether gene ralized or localized, lower leg documented in this encounter Care Teams Charter Coordinator Relationship Specialty Start Date End Date Giorigo Cardona MD PCP - General 10/04/10 04/10/17 [facility] GENERAL [place] [address] documented as of this encounter
--- OUTSIDE RECORDS SUMMARY | 2022-10-09 16:20 | XMS_ITS | Encounter Summary ---
:1940 Author Organization [facility] [place] [address] Care Team Providers Name Role Phone Giorgio Cardona MD Primary Care Provider Encounter Details Date Type Department Care Team Description 08/11/2011 Orders Only Cardiothoracic Surge Kay Akhtar PA [facility] D [facility] [place] [address] UROLOGY [phone] [place], [place] [address] (Wo rk) Social History Tobacco [...] [facility] ER DR CHRISTIANO HENSON-DERMAT OLOGY [place], [place] [address] (Wo rk) 10/16/2022 Office Visit Otolaryngology Frank Buchanan MD [facility] OTOLARYNGOLOGMireille D EPT. [place], [place] [address] (Wo rk) 11/29/2022 Appointment Hematology and Oncology 11/29/2022 Office Visit Radiation Oncology Emerald Leyva APRN [facility] RADIATION ONCOLO GY [place], [place] [address] (Wo rk) documented as of this encounter Visit Diagnoses Not on filedocumented in this encounter Care Teams Stock Selector Relationship Specialty Start Date End Date Giorgio Cardona MD PCP - General 10/04/10 04/10/17 [facility] [place] [place] [address] documented as of this encounter
--- OUTSIDE RECORDS SUMMARY | 2022-10-09 16:20 | XMS_ITS | Encounter Summary ---
:1940 Author Organization [facility] [place] [address] Care Team Providers Name Role Phone Arabella Rob MD Primary Care Provider Reason for Visit Reason Comments Throat Pain tickle; bringing up mucus Encounter Details Date Type Department Care Team Description 09/27/2011 Follow-Up Internal Medicine at Deandre Rob MD [facility] [place] [address] Preop cardiovascular exam (Primary Dx); [facility] Sarah Waterman MD [facility] [place] [address] [place] [id number] Social History Tobacco Use Types Packs/Day Years Used Date Smoking Tobacco: Never Smokeless Tobacco: Never Alcohol Use Standard Drinks/Week Comments No 0 (1 standard drink = 0.6 oz pure alcoho l) Sex Assigned at Date Recorded Not on file documented as of this encounter Last Filed Vital Signs Vital Sign Reading Time Taken Comments Blood Pressure 129/73 09/27/2011 1:31 PM EST Pulse 69 09/27/2011 1:31 PM EST Temperature 36.8 ??C (98.2 ??F) 09/27/2011 1:31 PM EST Respiratory Rate - - Oxygen Saturation - - Inhaled Oxygen Concentration - - Weight 67.6 kg (149 lb) 09/27/2011 1:31 PM EST Height - - Body Mass Index 24.79 09/18/2011 4:22 PM EST documented in this encounter Progress Notes Arabella Rob MD - 09/27/2011 7:44 PM EST Addended by: ARABELLA ROB on: 09/27/2011 Modules accepted: Level of Service Arabella Rob MD - 09/27/2011 7:44 PM EST Pertinent History: Asked by Dr. Guthrie to see patient prior to total thyroidectomy and pre- operative clearance. Havereviewed all pertinent findings. He has no functional limitations other than his knee discomfort buthas >4 mets worth. This is a moderate surgical intervention. Had a pharmacological stress test earlier thisyear which was unremarkable. He has no revised cardiac risk indices at this time. Allergies Allergies Allergen Reactions ??? Other (Unclassified Drug) Other (See Comments) Bread = sneezing ??? Lactose Other (See Comments) Sneezing Bleeding phenomenon - none Corticosteroids - none Diabetes - n/a Embolic phenomenon - n one Family hx malignant hyperthermia - none Glaucoma - none HIV/Hepatitis - none Ingestion - no significant EtoH Pertinent Exam: Gen -no acute distress. Alert, responsive and comfortable HEENT - oropharynx moist without lesions. Tracheal deviation Neck - Full range of motion, no [...] lesions, plaques, nodules Neurological - grossly normal Testicular exam - ttp on left testes Review + summary of old records: ( x) Yes ( ) No Discussion with another health care provider: --No: ( ) --Yes: ( ) I have independentl y reviewed and discussed with the patient the following: ( x) lab studies (x ) radiology studies (x ) other: echo, ecg Reviewed ecg. Reviewed recent labs. Recent CT performed. Also will check testicular u/s Overall satisfactory. Will arrange labs once we obtain a date as per [facility] guidelines, needs to be within 30 days. I do not feel that we need to repeat other studies. Reviewed with Mr. Mina. Understands my thinking and recommendations about pursuing thyroidectomy prior to knee replacement. Rest of details per Dr. Waterman Sarah Waterman MD - 09/27/2011 1:32 PM EST Subjective: PRE-OPERATIVE CONSULTATION VISIT HPI Mr. Mina is a 71yo male with a history of multiple medical problems including a multinodular goiter with chronic cough/throat irritation/allergic symptoms, severe osteoarthritis, especially the right knee, Lung cancer s/p RLL lobectomy in remission who presents for a pre-operative consultation for considerations of possible thyroidectomy. He was referred to surgery on his last annual physical secondary to continuous cough and throat irritation and was seen on 09/[address] Guthrie who has recommended proceeding with total thyroidectomy through a cervical approach with possible sternotomy.He has had a chronic sensation of 'something raddling' in his throat with continuous efforts to clear his secretions. Has been using lucas with some improvement with symptoms but did not tolerate thenetipot or nasal sprays due to more postnasal drip causing worsening courgh. He was told that the risk of surgery was minimal and is eager to pursue with the surgery as soon as possible. He is also very active working everyday even with right knee pain. He also had another steroid injection on his right knee which helped with the pain significantly and is now able to sleep. He is also eager to pursuewith a right knee replacement once the thyroid surgery is over. Still with lots of anxiety regardingsurrounding financial issues which has a been an ongoing issue. Denies chest pain, shortness of breath, abdominal pain, nausea, vomiting, diarrhea, dysuria or hematuria. Of note, also has complained of bilateral testicular pain for the last 2-3 weeks. Denies discharge, bleeding or swelling. No radiation of pain. Patient Active Problem List Diagnoses ??? Retrosternal goiter ??? Post-nasal drip ??? [...] features. 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 [id number]; KRAS negative, EGFR negative --09/2010: CT scan - normal --02/2011: CT scan --09/2011: CT scan - negative annual CT's afterwards PREOPERATIVE ASSESSMENT Procedure planned: Thyroidectomy Surgeon: Dr. Andi Guthrie Expected Procedure Date: To be determined Pre operative assessment: Cardiovascular Risk Assessment: Prem Revised Cardiac Risk Index Risk Factors Predicted CV Risk ( ) High Risk surgery ( ) Ischemic Heart Disease ( ) History of CHF ( ) History of CVD ( ) Insulin use ( ) Creat > 2.0 (x ) 0 risk factors (0.5%) ( ) 1 risk factor (1.3%) ( ) 2 risk factors (3.6%) ( ) 3 risk factors (10+%) Major Clinical Predictors Clinical Risk Factors ( ) Unstable ASCVD ( ) Decomp CHF ( ) Significant arrythmia ( ) Severe Valvular Disease (x ) None ( ) ASCVD ( ) Compensated CHF ( ) Diabetes ( ) Renal Insufficiency ( ) Cerebrovascular disease (x ) None Functional Capacity Surgical Risk (x ) Good Do light housework Climb a flight of stairs Walk on level ground at 4 mph Run a short distance Scrub floors / move heavy furniture Moderate recreational activities ( ) Poor Perform ADL's Walk indoors Walk a block at 2-3 mph ( ) Unknown ( ) High / Vascular major emergency surgery aortic and other major vascular surgery peripheral vascular surgery (x ) Intermediate intraperitoneal and intrathoracic carotid endarterectomy head and neck surgery orthopedic surgery prostate surgery ( ) Low Flowsheet Action ( ) Need for emergency surgery (x ) Proceed to OR ( ) Active Cardiac Condition Present ( ) Address condition, recommendations below (x ) None of the above Recommendations ( ) Dyspnea of unknown origin ( ) CHF with worsening dyspnea or clinical status ( ) Preopertative Echo ( ) High risk / Vascular procedure ( ) Intermediate procedure with 1+ clinical risk factors (x ) Preoperative EKG ( ) High / Intermediate risk procedure with 1+ clinical risk factor ( ) Add perioperative beta blockers ( ) Continue current beta jessa regimen ( ) Beta blockers contrindiacted ( ) Add perioperative Alpha-2 Agonist therapy ( ) High / Intermediate risk procedure with 1+ clinical risk factor ( ) Add statin therapy ( ) Continue current statin therapy ( ) Statin therapy not recommended ( ) Diabetes ( ) Target glucose <180 (General surgery) ( ) Target glucose <150 (Cardiac) ( ) Target glucose <110 (ICU, Neuro) ( ) Insulin drip recommended (x ) None of the above Procedure type ( ) Minor (x ) Intermediate ( ) Major Risk Factors ( ) Diabetes (x) Hypertension (x ) Hyperlipidemia ( ) Vascular disease ( ) ASCVD / Heart disease ( ) H/O CVA Medication changes (x ) Medication list reviewed, no changes needed Pre-operative labs (x ) CBC if procedure > 30days from last CBC ( ) Comprehensive Metabolic Panel (x ) Basic Metabolic Panel if procedure >30 days from last BMP (x ) Coag's, type and screen - on day of surgery Perioperative care ( ) No specific interventions needed Review of Systems Constitutional - no fevers, chills, night sweats, change in appetite, change in weight, or extreme weakness or fatigue Eyes - no eye disease or vision impairment ENT - + throat irritation, no nose, sinus, mouth problems. No ear disease or difficulty hearing. Skin - no skin diseases or rashes Respiratory - + dry cough, postnasal drip, no SOB, hemoptysis or chronic cough Cardiovascular - no chest pain, palpitations, LE edema Gastrointestinal - no nausea, vomiting, diarrhea, constipation, melena or abdominal pain Genitourinary -+ testicular pain, no dysuria, increased frequency of urination or urinary incontinence Musculoskeletal - + right knee pain Endocrine - no intolerance to hot or cold Psychiatric - + depression, +insomnia with difficulty tolerating stress. Neurological - no seizure disorder, headaches, syncope, LH/dizziness Objective: Physical Exam Filed Vitals: 09/27/11 1331 BP: 129/73 Pulse: 69 Temp: 36.8 ??C (98.2 ??F) TempSrc: Oral Weight: 67.586 kg (149 lb) General: Pleasant male in NAD HEENT: PERRL, EOMI, sclerae anicteric. MMM. Neck: Supple, no cervical lymphadenopathy, fullness along right anterior neck CV: Normal rate, regular rhythm without murmurs, rubs, or gallops. No JVD. Vascular: 2+ radial, DP, and PT pulses bilaterally. No carotid or abdominal bruits. Pulm: Lungs clear to auscultation and percussion bilaterally Abd: Soft, nontender, nondistended, no masses. Normo-active bowel sounds. No hepatosplenomegaly. MS: Right knee with mild tenderness - No joint edema, warmth, or erythema. Lower extremities withoutcyanosis or edema. ROM normal x 4 extremities. Skin: Warm and dry without rashes. Neuro: Awake, alert, and oriented. 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 Otherwise nonfocal. exam by Dr. Rob Radiology and recent labs reviewed - Chest CT (09/12) 1. Stable post lobectomy appearance with no findings for recurrent or new pulmonary pathology. 2. Unchanged goiter. 3. Unchanged renal cyst. Small head of pancreas lesion less visible without contrast. 4. Stable left adrenal adenoma - CBC, BMP (09/18) within normal limits - EKG (09/27/2011): NSR, no ischemic changes Assessment and Plan: Mr. Mina is a 71yo male with a history of multiple medical problems including a multinodular goiter with chronic cough/throat irritation/allergic symptoms, severe osteoarthritis, especially the right knee, Lung cancer s/p RLL lobectomy in remission who presents for a follow up for considerationsof possible thyroidectomy. His revised cardiac risk index is zero with good functional capacity at baseline for an intermediate surgical procedure. EKG done today without any ischemic changes. No limitations for proceeding with surgery. May be reasonable to proceed with thyroidectomy prior to knee placement since this may be associated with further complications. # Preop for thyroidecomy - Preop EKG as above - Will route this note to Dr. Guthrie for date of surgery, if surgical date < 30days from last chest CT and blood work, will hold off on CXR and CBC, BMP. # Right knee osteoarthritis - Discuss options regarding right knee replacement 3-6 months after thyroidecomty # Testicular pain - Bilateral testicular ultrasound - Follow up within 2-3 weeks after thyroidectomy or sooner if further needs for pre-operative lab work. documented in this encounter Plan of Treatment Upcoming Encounters Date Type Specialty Care Team Description 10/11/2022 Office Visit Dermatology Virgilio Mckeon MD [facility] DR CHRISTIANO HENSON-DERMAT [place], [place] [address] (Wo rk) 10/16/2022 Office Visit Otolaryngology Frank Buchanan MD [facility] OTOLARYNGOLOGY Sarah EPT. [place], [place] [address] (Wo rk) 11/29/2022 Appointment Hematology and Oncology 11/29/2022 Office Visit Radiation Oncology Emerald Leyva APRN [facility] RADIATION ONCCESAR GY [place], [place] [address] ( rk) documented as of this encounter Procedures Procedure Name Priority Date/Time Associated Diagnosis Comme nts EKG 12-LEAD Routine 09/27/2011 2:20 PM Preop cardiovascular R esults for this [...] 04 :19 pm) Patient Info ID: ? [id number] ? : [birth year] (71 yrs) Name: ? KATLIN J ? Visit Date: 09/27/2011 03:44 pm ? RACQUEL Performed By Performed By: ?Edelmira Owen RDMS Attending: ? Maeve GALINDO, Grant Menezes Referred By: ? DARRON BELL MD Accession#: ?[id number] Service(s) Provided [facility] - Ultrasound Scrotum and Contents w ith ?[id number], [id number] Vascular - [id number], [id number] Indications Testicular pain Right Testicle Measurement(cm) ? [...] participat e in the care of KATLIN MINA. Please do not hes itate to call if you have any questions. ? Grant chatman MD Electronically Signed Final Report ?? 04:19 pm Procedure Note Grant Mcfarlane MD - 09/27/2011Format ting of this note might be different from the original. Scrotal Report (Signed Final 09/27/2011 04:19 pm) Patient Info ID: [id number] : 38 (71 yrs ) Name: KATLIN Rodriguez Visit Date: 09/27/2011 03:44 pm RACQUEL Performed By Performed By: Edelmira Owen RDMS Attending: Grant Mcfarlane MD Referred By: DARRON BELL MD Service(s) Provided [facility] - Ultrasound Scrotum and Contents w [facility] [id number], [id number] Vascular - [id number], [id number] Indications Testicular pain Right Testicle Measurement(cm) L: [...] participat e in the care of KATLIN MINA. Please do not hes itate to call if you have any questions. Grant Mcfarlane MD Electronically Signed Final Report 09/27 04:19 pm Arabella Rob MD IMG US GEN ORDERABLES EKG 12 Lead (09/27/2011 2:20 PM EST) Component Value Ref Range Test Analysis Performed Pathologis t Method Time At Signature Ventricular rate 64 BPM MUSE SYSTEM Atrial Rate 64 BPM MUSE SYSTEM P-R Interval 200 ms MUSE SYSTEM QRS Duration 94 ms MUSE SYSTEM Q-T Interval 426 ms MUSE SYSTEM QTC Calculated 439 ms MUSE SYSTEM (Bezet) Calculated P [place] 51 degrees MUSE SYSTEM Calculated R [place] 27 degrees MUSE SYSTEM Calculated T [place] 45 degrees MUSE SYSTEM INTERPRETATION Normal sinus rhythm MUSE SYSTEM Normal ECG When compared with ECG of 25-JAN-2010 14:00, No significant change was found Confirmed by Antonio BANEGAS MD, Kirill ([id number]) on 09/28/2011 1:55 :16 PM Specimen Anatomical Collection Method Collection Time Receive d Time (Source) Location / / Volume Laterality 09/27/2011 2:20 PM 1 1:55 EST PM EST Arabella Rob MD ECG ORDERABLES Performing Organization Address City/State/ZIP Code Phon e Number MUSE SYSTEM documented in this encounter Visit Diagnoses Diagnosis Preop cardiovascular exam - Primary Pre-operative cardiovascular examination Testicular pain Unspecified disorder of male genital org ans Preop cardiovascular exam Pre-operative cardiovascular examination documented in this encounter Care Teams Thumb Sewer Relationship Specialty Start Date End Date Arabella Rob MD PCP - General 10/04/10 04/10/17 [facility] [place] [address] documented as of this encounter
--- OUTSIDE RECORDS SUMMARY | 2022-10-09 16:20 | XMS_ITS | Encounter Summary ---
:1940 Author Organization [place] [address] Care Team Providers Name Role Phone Giorgio Cardona MD Primary Care Provider Encounter Details Date Type Department Care Team Description 11/23/2011 Clinical Support [place] [facility] S/P mitral valve repair; [place] [address] Social History Tobacco Use Types Packs/Day Years Used Date Smoking Tobacco: Never Smokeless Tobacco: Never Alcohol Use Standard Drinks/Week Comments No 0 (1 standard drink = 0.6 oz pure alcoho l) Sex Assigned at Date Recorded Not on file documented as of this encounter Progress Notes Bing Medellin RN - 11/23/2011 12:16 PM EST PAT Questionnaire reviewed with patient while in Pre Admission Testing. He does not have diagnosed sleep apnea - he just sleeps poorly at night. He has had a heart valve repair and a lobectomy of his lung. States that he coughs a lot of mucus up after anesthesia. Advanced Directive information given. Pre-op folder reviewed with patient. Patient expresses good understanding of all information reviewed. Lab work and EKG performed while in Pre Admission Testing. documented in this encounter Plan of Treatment Upcoming Encounters Date Type Specialty Care Team Description 10/11/2022 Office Visit Dermatology Virgilio Mckeon MD [facility] ER DR CHRISTIANO HENSON-DERMAT OLOGY [place], [place] [address] (Wo rk) 10/16/2022 Office Visit Otolaryngology Frank Buchanan MD [facility] OTOLARYNGOLOGY Sarah EPT. [place], [place] [address] (Wo rk) 11/29/2022 Appointment Hematology and Oncology 11/29/2022 Office Visit Radiation Oncology Emerald Leyva APRN [facility] RADIATION ONCOLO GY [place], [place] [address] ( rk) documented as of this encounter Procedures Procedure Name Priority Date/Time Associated Diagnosis Comme nts EKG 12-LEAD Routine 11/23/2011 12:31 PM S/P mitral valve Resu lts for this EST repair procedure are i n the results section . documented in this encounter Results EKG 12 Lead (11/23/2011 12:31 PM EST) Component Value Ref Range Test Analysis Performed Pathologis t Method Time At Signature Ventricular rate 57 BPM MUSE SYSTEM Atrial Rate 57 BPM MUSE SYSTEM P-R Interval 212 ms MUSE SYSTEM QRS Duration 90 ms MUSE SYSTEM Q-T Interval 444 ms MUSE SYSTEM QTC Calculated 432 ms MUSE SYSTEM (Bezet) Calculated P [place] 57 degrees MUSE SYSTEM Calculated R [place] 30 degrees MUSE SYSTEM Calculated T [place] 63 degrees MUSE SYSTEM INTERPRETATION Sinus bradycardia with 1st degree A-V block MUSE SYSTEM Otherwise normal ECG When compared with ECG of 27-SEP-2011 14:20, No significant change was found Confirmed by MD MATTHIAS, TITUS ([id number]) on 11/23/2011 5:16:42 PM Specimen Anatomical Collection Method Collection Time Receive d Time (Source) Location / / Volume Laterality 11/23/2011 12:31 11/23/2011 5:16 PM EST PM EST Andi Guthrie MD ECG ORDERABLES Performing Organization Address City/State/ZIP Code Phon e Number MUSE SYSTEM documented in this encounter Visit Diagnoses Diagnosis S/P mitral valve repair Other postprocedural status Retrosternal goiter Goiter, unspecified documented in this encounter Care Teams Lapel Padder Blindstitch Relationship Specialty Start Date End Date Giorgio Cardona MD PCP - General 10/04/10 04/10/17 [facility] GENER[facility] INTERNAL MEDICINE [place] [phone] documented as of this encounter
--- OUTSIDE RECORDS SUMMARY | 2022-10-09 16:20 | XMS_ITS | Encounter Summary ---
:1940 Author Organization [facility] [place] [address] Care Team Providers Name Role Phone Giorgio Cardona MD Primary Care Provider Encounter Details Date Type Department Care Team Description 03/27/2011 Orders Only Internal Medicine at Deandre Cardona MD Mitral valvular [facility] disorder (Primary Dx) [facility] DR Pereira GENERAL INTERNAL [facility] [id number] [place] [address] (Wo rk) Social History Tobacco Use Types [...] Dermatology Virgilio Mckeon MD [facility] ER DR CHRISTIANO HENSON-DERMAT OLOGY [place], [place] [address] (Wo rk) 10/16/2022 Office Visit Otolaryngology Frank Buchanan MD [facility] OTOLARYNGOLOGMireille Smith EPT. [place], [place] [address] (Wo rk) 11/29/2022 Appointment Hematology and Oncology 11/29/2022 Office Visit Radiation Oncology Emerald Leyva APRN [facility] RADIATION ONCOLO [place], [place] [address] (Wo rk) documented as of this encounter Visit Diagnoses Diagnosis Mitral valvular disorder - Primary Mitral valve disorders documented in this encounter Care Teams Angio Technologist Relationship Specialty Start Date End Date Giorgio Cardona MD PCP - General 10/04/10 04/10/17 [facility] [place] [address] documented as of this encounter
--- OUTSIDE RECORDS SUMMARY | 2022-10-09 16:20 | XMS_ITS | Encounter Summary ---
:1940 Author Organization [facility] [place] [address] Care Team Providers Name Role Phone Arabella Rob MD Primary Care Provider Reason for Visit Reason Comments Lung Cancer Encounter Details Date Type Department Care Team Description 09/12/2011 Hospital Encounter Hematology and CLINIC, DR JESUS Lung cancer (Primary Oncology at [facility] Lois Jacome MD [facility] CARDIOTHORACIC [place] [address] Dx) [place] [id number] Social History Tobacco Use Types Packs/Day Years Used Date Smoking Tobacco: Never Smokeless Tobacco: Never Alcohol Use Standard Drinks/Week Comments No 0 (1 standard drink = 0.6 oz pure alcoho l) Sex Assigned at Date Recorded Not on file documented as of this encounter Last Filed Vital Signs Vital Sign Reading Time Taken Comments Blood Pressure 117/68 09/12/2011 2:22 PM EDT Pulse 67 09/12/2011 2:22 PM EDT Temperature 36.7 ??C (98.1 ??F) 09/12/2011 2:22 PM EDT Respiratory Rate 16 09/12/2011 2:22 PM EDT Oxygen Saturation 97% 09/12/2011 2:22 PM EDT Inhaled Oxygen Concentration - - Weight 69.4 kg (153 lb) 09/12/2011 2:22 PM EDT Height 162 cm (5' 3.78) 09/12/2011 2:22 PM EDT Body Mass Index 26.44 09/12/2011 2:22 PM EDT documented in this encounter Medications [...] encounter Progress Notes Lois Jacome MD - 09/12/2011 2:10 PM EDT Thoracic Surgery Post-Operative Visit Date of Consultation: 09/12/2011 PCP: ARABELLA ROB MD, MD Referring Physician: [...] nodes positive for malignancy. Post operative Staging: [id number] HPI: Since surgery he has been doing well. He has no complaints other than a persistent cough he hashad for over a month and ongoing right knee pain. He describes the cough as a tickle in his throat, which has been improving over the past few weeks. He also notes symptoms of reflux that are usuallycontrolled by his PPI, but may be contributing to his cough along with post nasal drip from allergies. He denies fever, chills, nausea, vomiting or diarrhea. No shortness of breath or chest pain. He has lost some weight intentionally; appetite is stable. 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 His exercise ability is limited due to his persistent knee pain, which he is planning to have evaluated by orthopedics. Past Medical History: Patient Active Problem List [...] INGUINAL, RECURRENT performed by NOREEN BOWIE at [facility] MAIN OR Review of Systems: As above, [...] ??? Lactose Other (See Comments) Sneezing Medications: No outpatient prescriptions have been marked as taking for the 09/12/11 encounter (Hospital Encounter) with LOIS JACOME Physical Exam: There were no vitals taken for this visit. General Appearance: Alert, cooperative, no distress, appears [...] without signs of infection Diagnostics: Chest CT (09/12/11): The patient is status post right lower lobectomy, with no findings for recurrence at the resection site and no findings for new pathology in the right lung. Stable scarring at the right base and lateral right lung. No new pathology in the left lung. Unchanged appearance of the airways. No pleural or pericardial effusion. No thoracic lymphadenopathy. Stable appearance of large left thyroid goiter allowing for non-contrast technique. No significant interval change in the appearance of the cardiovascular structures. No interval findings in the upper abdomen. Stable left adrenal adenoma (minus 3 Hounsfield units) and left renal cyst. The area of hypodensity previously reported in the pancreas is less confidently identified in the absence of intravenous contrast. No significant interval osseous findings are identified. Assessment: Mr. Mina is a 71 y.o. male s/p right VATS lower lobectomy for stage T1aN0 adenocarcinoma who continues to do well after surgery without signs of recurrence. He feels well other than his cough andknee pain. The cough is likely due to GERD given the history and lack of systemic symptoms. He has avisit with his PCP next week to address this issue. He also has an appointment with orthopedics for his knee pain. Overall he is doing very well. Plan of Management: We discussed his CT scan today and the plan for future follow up including another CT scan in 6 months for further cancer surveillance. He should also see his PCP about is cough and orthopedics for hisknee. Time for consultation: More than 15 minutes of this 25 minute visit were spent in counseling and coordination of care. documented in this encounter Plan of Treatment Upcoming Encounters Date Type Specialty Care Team Description 10/11/2022 Office Visit Dermatology Virgilio Mckeon MD [facility] DR CHRISTIANO [place]SON[place], [place] [address] (Wo rk) 10/16/2022 Office Visit Otolaryngology Frank Buchanan MD [facility] OTOLARYNGOLOGY Sarah [address] [place], [place] [address] (Wo rk) 11/29/2022 Appointment Hematology and Oncology 11/29/2022 Office Visit Radiation Oncology Emerald Leyva APRN [facility] RADIATION ONCOLO GY [place], [place] [address] (Wo rk) documented as of this encounter Visit Diagnoses Diagnosis Lung cancer - Primary Malignant neoplasm of bronchus and lung, unspecified site documented in this encounter Care Teams Ship Scaler Relationship Specialty Start Date End Date Arabella Rob MD PCP - General 10/04/10 04/10/17 [facility] GENERAL [place] [address] documented as of this encounter
--- OUTSIDE RECORDS SUMMARY | 2022-10-09 16:20 | XMS_ITS | Encounter Summary ---
:1940 [place] [address] Care Team Providers Name Role Phone Giorgio Cardona MD Primary Care Provider Encounter Details Date Type Department Care Team Description 11/30/2011 Anesthesia Event Main Operating Room Mane Hatfield MD [facility] [place] [address] [facility] Nicolette Esquivel MD [facility] [place] [address] [place] [address] Anesthesia Record Procedure Summary Procedure Name Responsible Anesthesia Start Anesthesia Stop Time Anesthesiologist Time THYROIDECTOMYElver Michael L, MD 11/30/11 1458 11/30/11 18 32 INCL. [...] PIV 11/30/11; 1520; 11/30/11 1520 by 12/01/11 1949 b y 12/01/11; 194 Amita Cerda Hamill, Mar y E, SHAWNA RN Urethral Catheter 11/30/11; 1530; 11/30/11 1530 by 12/01/11 0600 by indwelling double lumen Amita Cerda Bra ley, Sarah B, RN catheter; latex; 16; RN inserted (by Dr. Guthrie); 1; drainage bag to dependent drainage; 12/01/11; 0600 (RETIRED) Arterial 20 11/30/11 1530 by 12/01/11 194 9 by LIne Amita Cerda Hamill, Mar y E, SHAWNA RN Incision 11/30/11; 1556; neck; 11/30/11 1556 by 07/10/22 1715 by 07/10/22 (LDA cleanup Amita Cerda Mulle r, Dierdre L utility RA#[id number]); 1715 RN (LDA cleanup utility RA#[id number]) Drain/Device Site 11/30/11; 1717; Right; 11/30/11 1717 by 1949 by neck; collapsible closed Amita Cerda [place], Mary E, SHAWNA device; 12/01/11; 194 RN documented in this encounter Social History Tobacco Use Types Packs/Day Years Used Date Smoking Tobacco: Never Smokeless Tobacco: Never Alcohol Use Standard Drinks/Week Comments No 0 (1 standard drink = 0.6 oz pure alcoho l) Sex Assigned at Date Recorded Not on file documented as of this encounter OR Notes Anesthesia Postprocedure Evaluation - Mane Raya MD - 11/30/2011 12:00 AM EST Patient: Alfredito Mina Procedure(s) Performed: THYROIDECTOMY, INCL. SUBSTERNAL, CERVICAL APPROACH - PLEASE PAGE DR. RIZO IF NEEDED FOR THIS CASE ; FACIAL NERVE MONITORING, SETUP Patient location: PACU Post-op pain: Adequate analgesia Post-op nausea: no nausea or vomiting Last Vitals: Filed Vitals: 12/01/11 1130 BP: 130/71 Pulse: 63 Temp: 36.4 ??C (97.5 ??F) Resp: 18 Post-op cardiovascular and respiratory status: is stable Level of consciousness: awake Complications: no apparent complications Fluid Status: normal Anesthesia Preprocedure Evaluation - Nicolette Esquivel MD - 11/23/2011 12:49 PM EST Anesthesia Evaluation No hx of anesthetic complications (just coughs up alot of mucous; 02/2011 4 iGel; 02/2010 EZ FM Mac 3 Gr 1; 11/2004 Mil 2 UDV x 1) Airway Mallampati: II TM distance: >3 FB Neck ROM: full Dental - normal exam Pulmonary (+) COPD mild, (-) pneumonia, asthma, shortness of breath, recent URI and sleep apnea ROS comment: Hx Lung Ca, s/p RLL lobectomy 02/2010 Post-nasal drip Able to lie flat Cardiovascular Exercise tolerance: good (+) hypertension well controlled, valvular problems/murmurs (mitral valve repair 2004), (-) pacemaker, past IN, CAD, CABG/stent, dysrhythmias, angina and CHF ECG reviewed ROS comment: HLD Neuro/Psych (-) seizures, neuromuscular disease, TIA, CVA and headaches GI/Hepatic/Renal (+) GERD poorly controlled, (-) PUD, hepatitis, liver disease and renal disease Comments: Pancreatic cyst Endo/Other (+) hyperthyroidism (treated with radiated iodine twice), arthritis (OA - R knee, waiting for TKR), (-) Type I DM, Type II DM, hypothyroidism and clotting problem Comments: Prostate cancer, radiation about 3 years ago Abdominal Other findings: Large Left Thyroid Nodule with some rightward tracheal deviation. Anesthesia Plan ASA 3 General with intravenous induction 71 yo with PMH of lung Ca, prostate Ca, retrosternal MNG with right tracheal deviation, asthma/allergies, GERD, and h/o MV repair (2004). Currently in need of thyroidectomy. Pt states he rarely feels short of breath, but does notice some tightening in his neck when he looks up or when laying back. Denies chest pain. He does have a cough and brings up some mucous, related to PND and his allergies. In March 2011 he had a DSE which showed no ischemia and his Mitral Valve Ring was functioning well. Pt has been intubated here at [facility] a few times (2004, 2009) without difficulty (See notes in [facility]). He also had an inguinal hernia repair in 03/2011 with an LMA used, with no complication. Anesthesia plan, risks, and complications discussed with patient. Addendum: Ms. Bonner has discussed the case with me. I have reviewed the PMH and interviewed the patient and examined his airway. 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 CT 09/22 revealed no significant change in this goiter. He has been intubated in the past without difficulty. He had LMA placed with propofol 02/20. He has no difficulty lying flat or stridor. He should tolerate a standard induction but consideration could be given to an asleep spont ventilation induction with sevoflurane. I will leave this up to the anesthesia team on the DOS. Plan GAET, 2nd lg bore iv, arterial line, rosario Anesthetic plan and risks discussed with patient. Use of blood products discussed with and consented by patient. Plan discussed with resident. documented in this encounter Plan of Treatment Upcoming Encounters Date Type Specialty Care Team Description 10/11/2022 Office Visit Dermatology Virgilio Mckeon MD [facility] DR CHRISTIANO [place], [place] [address] (Wo rk) 10/16/2022 Office Visit Otolaryngology Frank Buchanan MD [facility] OTOLARYNGOLOGY Sarah EPT. [place], [place] [address] (Wo rk) 11/29/2022 Appointment Hematology and Oncology 11/29/2022 Office Visit Radiation Oncology Emerald Leyva APRN [facility] RADIATION [place], [place] [address] (Wo rk) documented as of this encounter Visit Diagnoses Not on filedocumented in this encounter Care Teams Bacon Skin Lifter Relationship Specialty Start Date End Date Giorgio Cardona MD PCP - General 10/04/10 04/10/17 [facility] GENERAL [place] [address] documented as of this encounter
--- OUTSIDE RECORDS SUMMARY | 2022-10-09 16:20 | XMS_ITS | Encounter Summary ---
:1940 Author Organization [facility] [place] [address] Care Team Providers Name Role Phone Arabella Rob MD Primary Care Provider Reason for Visit Reason Comments Goiter update consent Encounter Details Date Type Department Care Team Description 11/23/2011 Follow-Up General Surgery at Andi Guthrie; [facility] MD Christofer S/P mitral valve [place] [phone] GENERAL SURGERY [phone] [place], [place] [address] (Wo rk) Social History Tobacco Use Types Packs/Day Years Used Date Smoking Tobacco: Never Smokeless Tobacco: Never Alcohol Use Standard Drinks/Week Comments No 0 (1 standard drink = 0.6 oz pure alcoho l) Sex Assigned at Date Recorded Not on file documented as of this encounter Last Filed Vital Signs Vital Sign Reading Time Taken Comments Blood Pressure 130/70 11/23/2011 10:31 AM EST Pulse 66 11/23/2011 10:31 AM EST Temperature - - Respiratory Rate 18 11/23/2011 10:31 AM EST Oxygen Saturation 97% 11/23/2011 10:31 AM EST Inhaled Oxygen Concentration - - Weight 68.7 kg (151 lb 7.3 oz) 11/23/2011 10:29 AM EST Height 162.6 cm (5' 4) 11/23/2011 10:28 AM EST Body Mass Index 26 11/23/2011 10:28 AM EST documented in this encounter Progress Notes Andi Guthrie MD - 11/23/2011 11:43 AM EST Reason for Visit: Alfredito Mina [...] on physical exam. ROS: No H/O asthma, [place], stroke, pulmonary embolus or phlebitis. Comprehensive review [...] PO QHS ??? Mometasone (NASONEX) 50 mcg/Actuation Trilby by Nasal route 2 times daily. One spray each nostril each nostril. 17 g 12 PE: General: Well developed, well nourished 71 y.o. male in NAD. Skin: warm, dry, good turgor, nonicteric. Neck: He has a dominant, movable, nontender nodule in the left lobe of the thyroid extending below the clavicle with no adenopathy. HEENT: DANIELLA, EOM's full, sclera nonicteric, otherwise unremarkable. Back: no tenderness to AP or lateral compression. Lungs: Clear BS bilaterally without wheezes, rales or rhonchi. Card: Heart sounds normal, no murmurs, gallops, rubs or S3. Extremities: warm, no edema. Neuro: Awake, alert and oriented x 3., [place] negative bilaterally. Imp: Substernal MNG. Plan: Recommend proceeding with total thyroidectomy with possible sternotomy. He understands the implications, indications, potential complications and agrees to proceed. Will sign in through [facility]. Consent is signed. Send copy to Dr. ARABELLA ROB MD, and Kaushik Peterson MD. documented in this encounter Miscellaneous Notes Miscellaneous - Adolfo Lumber Carrier - 12/04/2011 10:38 AM EST documented in this encounter Plan of Treatment Upcoming Encounters Date Type Specialty Care Team Description 10/11/2022 Office Visit Dermatology Virgilio Mckeon MD [facility] DR [address]-DERMAT OLOGY [place], [place] [address] (Wo rk) 10/16/2022 Office Visit Otolaryngology Frank Buchanan MD [facility] OTOLARYNGOLOGY Sarah EPT. [place], [place] [address] (Wo rk) 11/29/2022 Appointment Hematology and Oncology 11/29/2022 Office Visit Radiation Oncology Emerald Leyva APRN [facility] RADIATION ONCOLO GY [place], [place] [address] (Wo rk) documented as of this encounter Visit Diagnoses Diagnosis Retrosternal goiter Goiter, unspecified S/P mitral valve repair Other postprocedural status documented in this encounter Care Teams Director Foundation Relationship Specialty Start Date End Date Arabella Rob MD PCP - General 10/04/10 04/10/17 [facility] GENERAL [place] [address] documented as of this encounter
--- OUTSIDE RECORDS SUMMARY | 2022-10-09 16:21 | XMS_ITS | Encounter Summary ---
:1940 [place] [address] Care Team Providers Name Role Phone Giorgio Cardona MD Primary Care Provider Encounter Details Date Type Department Care Team Description 09/12/2010 Orders Only Lab Giorgio Sterling MD [facility] Sarah [facility] [place] [address] MEDICINE [phone] [place], [place] [address] (Wo rk) Social History Tobacco Use Types Packs/Day Years Used Date Smoking Tobacco: Never Assessed Sex Assigned at Date Recorded Not on file documented as of this encounter Plan of Treatment Upcoming Encounters Date Type Specialty Care Team Description 10/11/2022 Office Visit Dermatology Virgilio Mcekon MD [facility] DR CHRISTIANO HENSON-DERMAT OLOGY [place], [place] [address] (Wo rk) 10/16/2022 Office Visit Otolaryngology Frank Buchanan MD [facility] OTOLARYNGOLOGY Sarah EPT. [place], [place] [address] (Wo rk) 11/29/2022 Appointment Hematology and Oncology 11/29/2022 Office Visit Radiation Oncology Emerald Leyva, [facility] ER RADIATION ONCCESAR [place], [place] [address] (Wo rk) documented as of this encounter Procedures Procedure Name Priority Date/Time Associated Comments Diagnosis CMP W/FASTING MEA 09/12/2010 9:01 AM Results for this GLUCOSE EDT procedure are i n the results section. DIFFERENTIAL, Routine 09/12/2010 9:01 AM Results for this AUTOMATED EDT procedure are i n the results section. CBC (WITH DIFF) Routine 09/12/2010 9:01 AM Result s for this EDT procedure are i n the results section. TSH EMA 09/12/2010 9:01 AM Results f or this EDT procedure are i n the results section. T4, FREE EMA 09/12/2010 9:01 AM Results f or this EDT procedure are i n the results section. PSA (ULTRASENSITIVE) EMA 09/12/2010 9:01 AM R esults for this EDT procedure are i n the results section. HEMOGLOBIN A1C EMA 09/12/2010 9:01 AM Results for this EDT procedure are i n the results section. FOLATE, SERUM Routine 09/12/2010 9:01 AM Results for this EDT procedure are i n the results section. VITAMIN B12 Routine 09/12/2010 9:01 AM Results f or this EDT procedure are i n the results section. LIPID PANEL (REFLEX EMA 09/12/2010 9:01 AM Re sults for this DIRECT LDL) EDT procedure are i n the results section. documented in this encounter Results PSA (09/12/2010 9:01 AM EDT) P athologist Signature PSA Total 1.39 0.00 - CERNER (Ultrasensitiv 4.00 ng/mL MILLENNIUM e) Specimen Anatomical Collection Method Collection Time Receive d Time (Source) Location / / Volume Laterality Blood specimen 09/12/2010 9:01 AM 010 9:16 (specimen) EDT AM EDT Giorgio Cardona MD CHEMISTRY ORDERABLES Performing Organization Address City/State/[place] [address] CERNER MILLENNIUM FOLATE (09/12/2010 9:01 AM EDT) athologist Signature Folate Lvl 13.6 7.4 - 35.0 CERNER ng/mL MILLENNIUM Specimen Anatomical Collection Method Collection Time Receive d Time (Source) Location / / Volume Laterality Blood specimen 09/12/2010 9:01 AM 010 9:13 (specimen) EDT AM EDT Giorgio Cardona MD CHEMISTRY ORDERABLES Performing Organization Address City/[facility]/ZIP Code Phon e Number [address] [facility] VITAMIN B12 (09/12/2010 9:01 AM EDT) athologist Signature Vitamin B-12 462 207 - 974 CERNER pg/mL [facility] Specimen Anatomical Collection Method Collection Time Receive d Time (Source) Location / / Volume Laterality Blood specimen 09/12/2010 9:01 AM 010 9:13 (specimen) EDT AM EDT Giorgio Cardona MD CHEMISTRY ORDERABLES Performing Organization Address City/[facility]/ZIP Code Phon e Number [address] CERNER [facility] (ABNORMAL) TSH (09/12/2010 9:01 AM EDT) athologist Signature TSH 0.09 (L) 0.27 - 4.20 CERNER mcIU/mL MILLENNIUM Comment: Cord Blood Reference Range: ??0. 35 23.00 uIU/mL Specimen Anatomical Collection Method Collection Time Receive d Time (Source) Location / / Volume Laterality Blood specimen 09/12/2010 9:01 AM 010 9:13 (specimen) EDT AM EDT Giorgio Cardona MD CHEMISTRY ORDERABLES Performing Organization Address City/[facility]/ZIP Code Phon e Number [address] CERNER MILLENNIUM (ABNORMAL) LIPID PANEL (09/12/2010 9:01 AM EDT) athologist Signature Chol, Total 190 <=199 mg/dL CERNER [facility] Comment: Recommendations of the NCEP Adult Treatm ent Panel for the following risk cutoff thresholds for the [place] populatio n: Desirable: <200 mg/dL Borderline High: 200-239 mg/dL High: > or = 240 mg/dL Triglycerides 75 <=149 mg/dL AMOREVA DAMONKATERINE IUM Comment: Reference Range: Normal triglycerides: ??<150 mg/dL Borderline high: ??150-199 mg/dL High: ??200-499 mg/dL Very high: ??>uc=753 mg/dL KENDRA 2001; 285(19):6058-5689 HDL 72 >=40 mg/dL MARIAMA NELSONKATERINEIUM Comment: Reference range: ??Low HDL: ?? < 40 mg/dL ??Normal: ?40-60 mg/dL ??Desirable: > 60 mg/dL KENDRA 2001; 285(19):6576-0469 LDL Cholesterol 103 (H) <=99 mg/dL MARIAMA PATRICK NITAISHA Comment: Reference range: ?? Optimal: ?<100 mg/dL ?? Near Optimal/Above Optimal: ?? 100-1 29 mg/dL ?? Borderline high: ?130-159 mg/dL ?? High: ? 160-189 mg/dL ?? Very high: ?>km=152 mg/dL KENDRA 2001: 285(19):1147-1256 Chol/HDL Ratio 2.6 ratio MARIAMA NELSONKATERINEI UM Comment: A Cholesterol to HDL ratio below 4:1 is desirable. ??Studies suggest that increased CAD risk occurs at ratios abov e 5 for females and above 6 for men. ? [place] Heart Association ??(htt p://www.americanheart.org) ? Anay Int Med, 1994; 121:641 ? AM J Med, 1998; 105(1A):48S Fasting? Yes MARIAMA NELSONKATERINEIUM Specimen Anatomical Collection Method Collection Time Receive d Time (Source) Location / / Volume Laterality Blood specimen 09/12/2010 9:01 AM 11/01/2 010 9:13 (specimen) EDT AM EDT Giorgio Cardona MD CHEMISTRY ORDERABLES Performing Organization Address City/State/[place] [address] CERNER MILLENNIUM T4, FREE (09/12/2010 9:01 AM EDT) athologist Signature Free T4 1.07 0.90 - 1.60 CERNER ng/dL MILLENNIUM Specimen Anatomical Collection Method Collection Time Receive d Time (Source) Location / / Volume Laterality Blood specimen 09/12/2010 9:01 AM 010 9:13 (specimen) EDT AM EDT Giorgio Cardona MD CHEMISTRY ORDERABLES Performing Organization Address City/[facility]/[place] [address] CERNER MILLENNIUM (ABNORMAL) CMP W/FASTING GLUCOSE (09/12/2010 9:01 AM EDT) athologist Signature Glucose 125 (H) 65 - 99 CERNER Fasting mg/dL [facility] Comment: ?Fasting* Glucose Interpretive C riteria Normal ?65-99 mg/dL Impaired Fasting glucose ?100-125 mg/dL Consistent with Diabetes Mellitus ? >or= 126 mg/dL *Fasting is defined as no caloric intake for at least 8 hours In the absence of unequivocal hypergly cemia a plasma glucose value of >or= 126 mg/dL should be repeated on a subseq u day. Diagnosis and Classification of Diabetes Mellitus, Position Statement from the [place] Diabetes Association. ??Diabete s Care, Volume 33, Supplement 1, Nov 2009 BUN 23 (H) 10 - 20 mg/dL CERNER MILLENNIU M Creatinine 0.93 0.80 - 1.50 mg/dL CERNER MILL ENNIUM Sodium 140 135 - 145 mmol/L CERNER PATRICK NIUM Potassium 4.7 3.5 - 5.0 mmol/L CERNER PATRICK NIUM [...] - 15 mmol/L CERNER MILLENNIU M Calcium 9.3 8.5 - 10.5 mg/dL CERNER PATRICK NIUM Total Protein 6.5 6.4 - 8.3 gm/dL CERNER MIL LENNIUM Albumin 4.0 3.2 - 5.2 gm/dL CERNER MILLENN IUM AST 22 0 - 39 unit/L CERNER MILLENNIU M ALT 16 0 - 55 unit/L CERNER MILLENNIU M Alk Phos 71 40 - 120 unit/L CERNER MILLENN IUM [...] t steady-state (unchanged within the past week). ??Patient age > = 18 years, and for Americans multiply eGFR by 1.2. At present, NKDEP does NOT recommend usi [...] Location / / Volume Laterality Blood specimen 09/12/2010 9:01 AM 010 9:13 (specimen) EDT AM EDT Giorgio Cardona MD CHEMISTRY ORDERABLES Performing Organization Address City/State/[place] [address] MARIAMA DAMONENNIUM HEMOGLOBIN A1C (09/12/2010 9:01 AM EDT) [facility] gist Method Time Signature Hemoglobin A1C 5.5 4.3 - 6.1 CERNER % MILLENNIUM Est [...] into estimated average glucose values. ??Diabetes Care 2008:31(8):3367-2936. Specimen Anatomical Collection Method Collection Time Receive d Time (Source) Location / / Volume Laterality Blood specimen 09/12/2010 9:01 AM 010 9:13 (specimen) EDT AM EDT Giorgio Cardona MD CHEMISTRY ORDERABLES Performing Organization Address City/State/[place] [address] CERNER MILLENNIUM (ABNORMAL) REFLEX LAB-A-DIFF (09/12/2010 9:01 AM EDT) [facility] Method Time Signature Neutrophils % 51.3 34.0 - CERNER 71.0 % MILLENNIUM Neutr Abs (ANC) 2.01 1.50 - CERNER 6.30 MILLENNIUM x10(3)/mc L Lymphocytes % 28.3 19.0 - CERNER 53.0 % MILLENNIUM Lymphocytes Abs 1.1 1.0 - 3.6 CERNER x10(3)/mc MILLENNIUM L Monocytes % 15.3 (H) 4.0 - CERNER 13.0 % MILLENNIUM Monocyte Abs 0.6 0.2 - 1.0 CERNER x10(3)/mc MILLENNIUM L Eosinophils % 4.3 0.0 - 7.0 CERNER % MILLENNIUM Eosinophils Abs 0.2 0.0 - 0.5 CERNER x10(3)/mc MILLENNIUM L Basophils % 0.5 0.0 - 2.0 CERNER % MILLENNIUM Basophils Abs 0.0 0.0 - 0.2 CERNER x10(3)/mc MILLENNIUM L Immature Gran % 0.30 0.00 - CERNER 0.66 % MILLENNIUM Comment: Immature granulocytes(IG's)percentage an d absolute count will include metamyelocytes, myelocytes, and promyelo cytes. Blood smears from CBC's yielding IG's will be scanned manually for concor dance. If this scan disagrees with the automated IG or if promyelocytes are not ed, a manual differential will be performed. Becki Gran Abs 0.01 0.00 - 0.05 x10(3)/mcL CER NER MILLENNIUM Specimen Anatomical Collection Method Collection Time Receive d Time (Source) Location / / Volume Laterality Blood specimen 09/12/2010 9:01 AM 010 9:13 (specimen) EDT AM EDT Giorgio Cardona MD HEMATOLOGY ORDERABLES Performing Organization Address City/[facility]/[place] [address] CERNER MILLENNIUM (ABNORMAL) CBC (09/12/2010 9:01 AM EDT) P athologist Signature WBC 3.9 (L) 4.0 - 10.0 CERNER x10(3)/mcL MILLENNIUM RBC 4.24 (L) 4.63 - CERNER 6.08 MILLENNIUM x10(6)/mcL Hemoglobin 13.5 (L) 13.7 - CERNER 17.5 gm/dL MILLENNIUM Hematocrit 41.4 40.0 - CERNER 51.0 % MILLENNIUM MCV 97.6 (H) 79.0 - CERNER 92.0 fL MILLENNIUM MCH 31.8 25.6 - CERNER 32.2 pg MILLENNIUM MCHC 32.6 32.0 - CERNER 36.5 gm/dL MILLENNIUM Platelets 191 145 - 370 CERNER x10(3)/mcL MILLENNIUM RDWSD 50.3 (H) 35.0 - CERNER 46.0 fL MILLENNIUM RDWCV 14.1 10.9 - CERNER 14.4 % MILLENNIUM MPV 10.8 9.0 - 12.0 CERNER fL MILLENNIUM Specimen Anatomical Collection Method Collection Time Receive d Time (Source) Location / / Volume Laterality Blood specimen 09/12/2010 9:01 AM 010 9:13 (specimen) EDT AM EDT Giorgio Cardona MD HEMATOLOGY ORDERABLES Performing Organization Address City/[facility]/[place] [address] CERNER MILLENNIUM documented in this encounter Visit Diagnoses Not on filedocumented in this encounter Care Teams Combination Machine Tool Operator Relationship Specialty Start Date End Date Giorgio Cardnoa MD PCP - General 10/04/10 04/10/17 [facility] [place] [address] documented as of this encounter
--- OUTSIDE RECORDS SUMMARY | 2022-10-09 16:21 | XMS_ITS | Encounter Summary ---
:1940 Author Organization [place] [address] Care Team Providers Name Role Phone Giorgio Cardona MD Primary Care Provider Encounter Details Date Type Department Care Team Description 02/28/2011 Hospital Encounter XRay at [facility], DR CONV Pain [address] [place] [address] Alessio Castillo MD [facility] [place] [address] [place] [address] Social History Tobacco Use Types Packs/Day [...] [facility]HAVIORAL [facility] DR CHRISTIANO HENSON-DERMAT OLOGY [place], [place] [address] (Wo rk) 10/16/2022 Office Visit Otolaryngology Frank Buchanan MD [facility] OTOLARYNGOLOGY D EPT. [place], [place] [address] (Wo rk) 11/29/2022 Appointment Hematology and Oncology 11/29/2022 Office Visit Radiation Oncology Emerald Leyva APRN [facility] RADIATION ONCOLO GY [place], [place] [address] (Wo rk) documented as of this encounter Procedures Procedure Name Priority Date/Time Associated Comments Diagnosis XR KNEE DIAGNOSTIC 1 Routine 02/28/2011 10:04 AM Pain Results for this OR 2 VIEW EDT procedure are i n the results section. documented in this encounter Results XR knee diagnostic 1 or 2 view (02/28/2011 10:04 AM EDT) Anatomical Region Laterality Modality Knee N/A Radiographic Imaging Specimen (Source) Anatomical Collection Method Collection Time Re ceived Time Location / / Volume Laterality 02/28/2011 10:04 AM EDT Impressions 03/01/2011 10:04 AM EDT IMPRESSION: Stable severe right and moderate left k nee osteoarthritis with new right knee joint effusion. Narrative 03/01/2011 10:04 AM EDT STANDING AP VIEWS OF BILATERAL KNEES AND LATERAL VIEW OF THE RIGHT KNEE, 02/28/11: ?? INDICATION: ??Right knee DJD. ?? COMPARISON: ??07/11/10. ?? FINDINGS: ??Again noted is severe medial compartment joint space narrowing on the right and moderate narrowing on the left. There is sclerosis and subchondral cystic change in the right m edial compartment. There is a new small joint effusion on the right. Retropatell ar spurring is noted. ?? Procedure Note Rey Enriquez MD - 03/01/2011Formattin g of this note might be different from the original. STANDING AP VIEWS OF BILATERAL KNEES AND LATERAL VIEW OF THE RIGHT KNEE, 02/28/11: INDICATION: Right knee DJD. COMPARISON: 07/11/10. FINDINGS: Again noted is severe medial c ompartment joint space narrowing on the right and moderate narrowing on the left. There is sclerosis and subchondral cystic change in the right m edial compartment. There is a new small joint effusion on the right. Retropatell ar spurring is noted. 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 Alessio Quezada MD IMG DX ORDERABLES documented in this encounter Visit Diagnoses Diagnosis Pain Generalized pain documented in this encounter Care Teams Computational Sciences Professor Relationship Specialty Start Date End Date Giorgio Cardona MD PCP - General 10/04/10 04/10/[address] [facility] [address] [place] [address] documented as of this encounter
--- OUTSIDE RECORDS SUMMARY | 2022-10-09 16:21 | XMS_ITS | Encounter Summary ---
:1940 Author Organization [facility] [place] [address] Care Team Providers Name Role Phone Giorgio Cardona MD Primary Care Provider Encounter Details Date Type Department Care Team Description 02/15/2011 Orders Only Orthopaed[facility] [place] [facility] [place]essio Quezada DJD (degenerative [facility] MD joint disease) of [facility] knee (Primary Dx) [place] [phone] ORTHOPAEDIC SURGERY [place], [place] [address] Social History Tobacco Use Types [...] Dermatology Virgilio Mckeon MD [facility] ER DR CHRISTIANO HENSON-DERMAT OLOGY [place], [place] [address] (Wo rk) 10/16/2022 Office Visit Otolaryngology Frank Buchanan MD [facility] ER OTOLARYNGOLOGMireille Smith EPT. [place], [place] [address] (Wo rk) 11/29/2022 Appointment Hematology and Oncology 11/29/2022 Office Visit Radiation Oncology Emerald Leyva APRN [facility] RADIATION ONCOLO [place], [place] [address] (Wo rk) documented as of this encounter Visit Diagnoses Diagnosis DJD (degenerative joint disease) of knee - Primary Osteoarthrosis, unspecified whether gene ralized or localized, lower leg documented in this encounter Care Teams El Teacher Relationship Specialty Start Date End Date Giorgio Cardona MD PCP - General 10/04/10 04/10/17 [facility] GENERAL [place] [address] documented as of this encounter
--- OUTSIDE RECORDS SUMMARY | 2022-10-09 16:21 | XMS_ITS | Encounter Summary ---
:1940 Author Organization [facility] [place] [address] Care Team Providers Name Role Phone Giorgio Cardona MD Primary Care Provider Reason for Visit Reason Comments Right Knee Pain Injury - Encounter Details Date Type Department Care Team Description 02/28/2011 Office Visit Orthopaedics at [facility] [place], Right knee pain [facility] Alessia Funes APRN (Primary Dx) [place] [address] CENTER [phone] ORTHOPAEDIC SURGERY [place], [place] [address] Social History Tobacco Use Types Packs/Day Years Used Date Smoking Tobacco: Never Alcohol Use Standard Drinks/Week Comments No 0 (1 standard drink = 0.6 oz pure alcoho l) Sex Assigned at Date Recorded Not on file documented as of this encounter Progress Notes Alessia Hendrix APRN - 02/28/2011 11:15 AM EDT CHIEF COMPLAINT: Right knee pain. 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 He underwent a right lower lobectomy on 02/09/2010, removing about 20% of his lung. He has done very well since then. He did not receive any chemotherapy or radiation. He reports back today wondering if he could get back on the schedule to have his knee replaced. He has two issues to iron out, in the meantime he had a recurrence of a left inguinal herniorrhaphy and he has surgery scheduled for the last of February. He also has a tooth that he is going to take care of prior to surgery. He would like to get back on the schedule though. The majority of his right knee pain is medial. The knee swells,clicks, does not lock nor give way. He is using no assistive devices to get around. He uses Aleve one p.o. b.i.d. It helps his knee. But, he is also taking it curiously for his prostate. He was told that that would help his prostate and he feels that it does improve flow. I asked him if it was the terazosin he is on, but he said no, it is actually the Aleve. 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 The knee is sore, but he tries to keep it as flexible and stretched out and he tries to remain as active as he can despite the pain. His knees are annoying at night, but does not keep him awake. Stairs can be hurtful, but he is able to do them reciprocally. OBSERVED: The patient reports back to clinic. He is at his body weight for height. He is in no apparent distress other than a little stiffness when he first arises from a chair. His gait is mildly antalgic, but smoothes out the further he walks. Right knee range of motion 0 to 130 degrees. He has a small effusion. His medial joint line is mildly tender, the lateral not so. He has mild patellar crepitus with motion and he is stable in the AP plane and to varus and valgus stress testing. A Michelle maneuver was not performed so as not to aggravate the knee. He has soft calves bilaterally. No peripheral edema. He has some tenderness to touch his right great toe, which was just worked on by a drop board man yesterday to clean up the nail. No sign of purulence or infection in either greater toe where he gets ingrown toe nails. X-ray films, the film today reveals that he is [id number] on the medial compartment of the right knee. Lateral compartment is well preserved. Patellofemoral narrowing is moderate. I will comment on the contralateral left knee when I sign the note. ASSESSMENT: Severe degenerative disk disease, right knee. The patient would like to reschedule his right knee following his cancellation due to lung cancer one year ago. PLAN: The patient has an artificial valve and has not had a stress test since 07/2009. He had an echocardiogram at that time, so that may need to be repeated; he realizes this. He denies any history of HI or CVA. We will speak to Dr. Quezada to see when it would be okay to go ahead and get him back on the schedule in light of the fact that he is going to have his left inguinal herniorrhaphy at the end of February. He may also want to check with his lung doctor to see if they have a preference on what type of anesthesia he receives. The patient is in agreement with this plan. He will either be hearing from our surgical schedular, Blanca crawford or myself depending on what Dr. Quezada says. documented in this encounter Plan of Treatment Upcoming Encounters Date Type Specialty Care Team Description 10/11/2022 Office Visit Dermatology Virgilio Mckeon MD [facility] DR CHRISTIANO HENSON-DERMAT OLOGY [place], [place] [address] (Wo rk) 10/16/2022 Office Visit Otolaryngology Frank Buchanan MD [facility] OTOLARYNGOLOGY Sarah EPT. [place], [place] [address] (Wo rk) 11/29/2022 Appointment Hematology and Oncology 11/29/2022 Office Visit Radiation Oncology Emerald Leyva APRN [facility] RADIATION ONCCESAR [place], [place] [address] (Wo rk) documented as of this encounter Visit Diagnoses Diagnosis Right knee pain - Primary Pain in joint, lower leg documented in this encounter Care Teams Returned Goods Inspector Relationship Specialty Start Date End Date Giorgio Cardona MD PCP - General 10/04/10 04/10/17 [facility] [place] [address] documented as of this encounter
--- OUTSIDE RECORDS SUMMARY | 2022-10-09 16:21 | XMS_ITS | Encounter Summary ---
:1940 Author Organization [facility] [place] [address] Care Team Providers Name Role Phone Giorgio Cardona MD Primary Care Provider Reason for Visit Reason Onset Date Comments Other 03/15/2011 post op questions Encounter Details Date Type Department Care Team Description 03/15/2011 Telephone General Surgery at [facility] Valerai Pradhan Other (post op [facility] Juan Alberto, RN questions ) [place] [address] Social History Tobacco Use Types Packs/Day Years Used Date Smoking Tobacco: Never Alcohol Use Standard Drinks/Week Comments No 0 (1 standard drink = 0.6 oz pure alcoho l) Sex Assigned at Date Recorded Not on file documented as of this encounter Miscellaneous Notes Telephone Encounter - Valeria Pradhan RN - 03/15/2011 11:00 AM EDT TELEPHONE NOTE Date of call: 03/15/2011 Time of call: 10:48 AM Caller: Pt to the General Surgery Clinic Reason for call: PT calling with Post-op questions related to his surgery on SundayMarch [address] Hess which was a recurrent right inguinal hernia repair. Pt states Something is going on down where I go to the bathroom. Pt calling about swelling and bruising in his scrotum and penis. Assessment: PT is s/p Right Inguinal Hernia Repair 03/10 now with swelling and bruising. Pt denies pain, fever/chills, he voiding without difficulty,testicles are soft. Plan/Instructions: Pt will continue to monitor, he will avoid lifting and will elevate his scrotum when at rest. Pt will call the clinic with any further questions or concerns. documented in this encounter Plan of Treatment Upcoming Encounters Date Type Specialty Care Team Description 10/11/2022 Office Visit Dermatology Virgilio Mckeon MD [facility] DR CHRISTIANO HENSON-DERMAT OLOGY [place], [place] [address] (Wo rk) 10/16/2022 Office Visit Otolaryngology Frank Buchanan MD [facility] OTOLARYNGOLOGY Sarah EPT. [place], [place] [address] (Wo rk) 11/29/2022 Appointment Hematology and Oncology 11/29/2022 Office Visit Radiation Oncology Emerald Leyva APRN [facility] RADIATION ONCOLO GY [place], [place] [address] (Wo rk) documented as of this encounter Visit Diagnoses Not on filedocumented in this encounter Care Teams Ice Cream Vault Worker Relationship Specialty Start Date End Date Giorgio Cardona MD PCP - General 10/04/10 04/10/17 [facility] [place] [address] documented as of this encounter
--- OUTSIDE RECORDS SUMMARY | 2022-10-09 16:21 | XMS_ITS | Encounter Summary ---
:1940 Author Organization [place] [address] Care Team Providers Name Role Phone Giorgio Cardona MD Primary Care Provider Encounter Details Date Type Department Care Team Description 03/10/2011 Surgery Main Operating Room Chevy Hess MD HERNIA REPAIR, [facility] GENERAL [facility] [place] [address] [place] [address] [phone] Social History Tobacco Use Types Packs/Day Years Used Date Smoking Tobacco: Never Alcohol Use Standard Drinks/Week Comments No 0 (1 standard drink = 0.6 oz pure alcoho l) Sex Assigned at Date Recorded Not on file documented as of this encounter Last Filed Vital Signs Vital Sign Reading Time Taken Comments Blood Pressure 136/54 03/10/2011 10:19 AM EDT Pulse 55 03/10/2011 10:19 AM EDT Temperature 36.4 ??C (97.5 ??F) 03/10/2011 9:22 AM EDT Respiratory Rate 16 03/10/2011 10:19 AM EDT Oxygen Saturation 96% 03/10/2011 10:19 AM EDT Inhaled Oxygen Concentration - - Weight 68 kg (150 lb) 03/10/2011 6:28 AM EDT Height 170.2 cm (5' 7) 03/10/2011 6:28 AM EDT Body Mass Index 23.49 03/10/2011 6:28 AM EDT documented in this encounter Discharge Instructions Discharge InstructionsSoha Villatoro RN - 03/10/2011 10:56 AM EDT PATIENT INSTRUCTIONS POST-ANESTHESIA IMMEDIATELY FOLLOWING SURGERY: Do not drive or operate machinery for the first twenty four hours after surgery. Do not make any important decisions for twenty four hours after surgery or while taking narcotic pain medications or sedatives. If you develop intractable nausea and vomiting or a severe headache please notify your doctor immediately. FOLLOW-UP: Please make an appointment with your surgeon as instructed. You do not need to follow up with anesthesia unless specifically instructed to do so. QUESTIONS?: Please feel free to call your physician or the hospital end lathe operator if you have any questions, and they will be happy to assist you. PATIENT INSTRUCTIONS HERNIA FOLLOW-UP: Please make an appointment with your physician in {NUMBER:[id number]} {TIME PERIOD:9075}. Callyour physician immediately if you have any fevers greater than 102.5, drainage from you wound that is not clear or looks infected, persistent bleeding, increasing abdominal pain, problems urinating, orpersistent nausea/vomiting. WOUND CARE INSTRUCTIONS: Keep a dry clean dressing on the wound if there is drainage. The initial bandage may be removed after 24 hours. Once the wound has quit draining you may leave it open to air. If clothing rubs against the wound or causes irritation and the wound is not draining you may cover itwith a dry dressing during the daytime. Try to keep the wound dry and avoid ointments on the wound unless directed to do so. If the wound becomes bright red and painful or starts to drain infected material that is not clear, please contact your physician immediately. If the wound is mildly pink and has a thick firm ridge underneath it, this is normal, and is referred to as a healing ridge. This will resolve over the next 4-6 weeks. DIET: You may eat any foods that you can tolerate. It is a good idea to eat a high fiber diet and take in plenty of fluids to prevent constipation. If you do become constipated you may want to take a mild laxative or take ducolax tablets on a daily basis until your bowel habits are regular. Constipation can be very uncomfortable, along with straining, after recent abdominal surgery. ACTIVITY: You are encouraged to cough and deep breath or use your incentive spirometer if you were given one, every 15-30 minutes when awake. This will help prevent respiratory complications and low grade fevers post-operatively. You may want to hug a pillow when coughing and sneezing to add additional support to the surgical area which will decrease pain during these times. You are encouraged to walk and engage in light activity for the next two weeks. You should not lift more than 20 pounds duringthis time frame as it could put you at increased risk for a hernia recurrence. Twenty pounds is roughly equivalent to a plastic bag of groceries. MEDICATIONS: Try to take narcotic medications and anti-inflammatory medications, such as tylenol, ibuprofen, naprosyn, etc., with food. This will minimize stomach upset from the medication. Should you develop nausea and vomiting from the pain medication, or develop a rash, please discontinue the medication and contact your physician. You should not drive, make important decisions, or operate machinery when taking narcotic pain medication. QUESTIONS: Please feel free to call your physician or the hospital end lathe operator if you have any questions, and they will be glad to assist you. Patient InstructionsNick Castano MD - 03/10/2011 9:26 AM EDT Discharge home Followup [address] Hess Remove dressing 48 hr May shower tomorrow Steristrips will fall off Don't lift>20 lb for 4 weeks documented in this encounter Medications at Time [...] 05/18/2011 tablet documented as of this encounter H&P Notes Nick Castano MD - 03/10/2011 7:01 AM EDT General Surgery See H/P dated 02/15. No interval change. Plan left inguinal hernia. documented in this encounter Miscellaneous Notes Miscellaneous - Provider, Scanning - 03/10/2011 10:59 PM EDT Op Note - Ponce Hess MD - 03/10/2011 4:47 PM EDT Operative Note Patient Name: Katlin Clement : [id number] MR#: [id number] Case Date: 03/10/2011 Surgeon: Surgeon(s) and Role: * PONCE HESS MD - Primary * NICK CASTANO MD - Surgeon John Preoperative diagnosis: recurrent left inguinal hernia Postoperative diagnosis: recurrent left inguinal hernia Procedure(s): HERNIA REPAIR, INGUINAL, RECURRENT General Procedure Description: Date of Procedure: March 10, 2011. Preoperative Diagnosis: Left recurrent inguinal hernia. Postoperative Diagnosis: Left recurrent indirect inguinal hernia. Procedure: Left inguinal hernia repair with mesh patch. Surgeon: Dr. Ponce Hess. Qualification Engineer: Dr. Nick Castano. Anesthesia: General. Fluids: 500 mL of crystalloid. Estimated Blood Loss: None. Findings: 1. Intact inguinal floor. 2. Large indirect sac. Specimens: Hernia sac. Drains: None. Complications: None. Condition: Stable to Recovery Room. Indications for Procedure: The patient is a very pleasant 70-year-old gentleman with a past medical history significant for a left inguinal hernia repair done in 1962 who presents to my office with a recurrent symptomatic hernia. I also recommended an open approach with a plan for mesh repair. Of note, patient had prior abdominal surgery making him not a candidate for laparoscopic approach. He underwent informed consent including risks and benefits, which include but are not limited to bleeding, infection, recurrence, spermatic cord injury, and postop neuropathic pain. Patient understood this and wished to proceed. Procedure in Detail: The patient was seen in the Preoperative Hold Area where the planned procedure was again re-discussed with him and his , and all questions were answered to their satisfaction. He was then marked on the correct side per protocol. He received the preoperative dose of IV antibiotics and was then taken back to the Operating Room by the Anesthesia Staff where he underwent successful anesthetic induction and endotracheal intubation. Patient's left groin was then shaved, prepped, and draped in the standard usual fashion. An operative-room time out was performed per protocol with no discrepancies. I next elected to make an approximately 4-cm curvilinear incision centered over the external ring and carried this down through the subcutaneous tissues using Bovie cautery. The external ring was palpated. I next opened the external oblique fascia sharply with a scalpel and carried this incision down to the external ring using Metzenbaum scissors. Once incision was accomplished, I then developed the plane underneath the external oblique fascia using blunt dissection. The spermatic cord was visualized and circumferentially isolated at the level of the symphysis pubis using blunt dissection. A Gregg drain was placed to aid with mobility of the cord. Of note, there was no evidence of ilioinguinal nerve upon initial dissection and exploration. The inguinal floor was found to be completely intact and stable. At this time, I began the dissection of the spermatic cord and identified an indirect sac in its customary location. This was dissected free completely off of the spermatic cord. Of note, all cord contents were identified and protected throughout the course of the operation. With the sac dissected free off the cord, I then sharply opened the sac and inspected its contents and found there to be a small amount of fat, which was easily reduced into the abdominal cavity. The sac was then suture ligated using a 2-0 Prolene stitch. Excess sac was then transected and sent to Pathology for permanent review. At this time, the wound was copiously irrigated with normal saline. Hemostasis was achieved spontaneously. I next elected to place an Atrium patch to further buttress the floor. A medium patch was selected for this and was first pexed to the soft tissues of the symphysis pubis using an interrupted 0 Vicryl suture. I next pexed the patch using the same interrupted suture both on the shelving edge and the conjoint tendon. The tails of the patch were modified to accommodate the cord without undue constriction. The tails of the patch were then sutured together and then tucked underneath the external oblique fascia without difficulty. The patch was found to lie nicely with no buckling or wrinkling of the patch. I again copiously irrigated the wound with normal saline. The external oblique fascia was closed with a running 0 Vicryl suture without difficulty. I next closed Luisa fascia with three 3-0 Vicryl interrupted sutures followed by closure of the skin with a running 4-0 Monocryl subcuticular stitch. Benzoin, Steri-Strips, and dry sterile dressing were then applied. The patient tolerated the procedure without complication. All needle, sponge, and instrument counts were correct times two. The testicle was found to be in satisfactory position at the end of the case. Of note, 0.5% Marcaine was instilled in the subfascial and subcutaneous tissues at the end of the case. Brief Op Note - Ponce Hess MD - 03/10/2011 4:39 PM EDT Brief Operative Note Patient Name: Katlin Clement : [id number] MR#: [id number] Case Date: 03/10/2011 Surgeon: Surgeon(s) and Role: * PONCE HESS MD - Primary * NICK CASTANO MD - Surgeon John Preoperative diagnosis: recurrent left inguinal hernia Postoperative diagnosis: recurrent left inguinal hernia Procedure(s): HERNIA REPAIR, INGUINAL, RECURRENT General Findings: left recurrent indirect hernia Specimen; hernia sac Drains; none Complications: none (Please see the Surgical Encounter Summary for any Implant and Specimen details pertinent to this patient.) OR Attestation - Ponce Hess MD - 03/10/2011 4:35 PM EDT I attest that I was present and scrubbed with the resident staff for the entire case excluding skin closure. Brief Op Note - Nick Castano MD - 03/10/2011 9:19 AM EDT Brief Operative Note Patient Name: Katlin Clement : [id number] MR#: [id number] Case Date: 03/10/2011 Surgeon: Surgeon(s) and Role: * PONCE HESS MD - Primary * NICK CASTANO MD - Surgeon John Preoperative diagnosis: recurrent left inguinal hernia Postoperative diagnosis: recurrent left indirect inguinal hernia Procedure(s): HERNIA REPAIR, INGUINAL, RECURRENT General Anesthesia EBL 10 ml Complications none Findings: indirect inguinal hernia. Hernia sac ligated and floor reinforced with mesh Miscellaneous - Provider, Scanning - 03/10/2011 7:01 AM EDT documented in this encounter Plan of Treatment Upcoming Encounters Date Type Specialty Care Team Description 10/11/2022 Office Visit Dermatology Virgilio Mckeon MD [facility] DR CHRISTIANO HENSON-DERMAT [place], [place] [address] (Wo rk) 10/16/2022 Office Visit Otolaryngology Frank Buchanan MD [facility] OTOLARYNGOLOGY Sarah EPT. [place], [place] [address] (Wo rk) 11/29/2022 Appointment Hematology and Oncology 11/29/2022 Office Visit Radiation Oncology Emerald Leyva APRN [facility] RADIATION ONCCESAR [place], [place] [address] (Wo rk) documented as of this encounter Procedures Procedure Name Priority Date/Time Associated Diagnosis Comme nts SURGICAL PATHOLOGY Routine 03/10/2011 8:40 AM Res ults for this REPORT EDT procedure are i n the results section. HERNIA REPAIR, 03/10/2011 7:37 AM recurrent left INGUINAL, RECURRENT EDT inguinal hernia (WRVU 9.99) documented in this encounter Results SURGICAL PATHOLOGY REPORT (03/10/2011 8:40 AM EDT) Component Value Ref Test Analysis Performed At [facility] Range Method Time Signature Surgical CERNER Pathology ? [facility] Report ? Provider: ?? PONCE HESS ?Pt. Name: ?? KATLIN CLEMENT ? Acc #: ?[id number] ?Pt. MRN: ?[id number] ? Col Date: ?? 1 ? /Sex: ?1940,(70 years),Male ? Rec Date: ?? 03/10/2011 ? LOC: ?SDP ? SURGICAL PATHOLOGY ? ---Pathologic Diagnosis--- ? Fibromembranous tissue, hernia sac, left inguinal. ?Gross surgical pathology examination. ? CR-0 ? 03/11/11 ? AJE ? 03/13/11 Verified by: ? Lencho Arroyo MD ? Pathologist ? (Electronic Si gnature) ? The attending pathologist whose signature appears o n this report has ? reviewed all diagnostic slides and has edited the uyen ss and/or ? microscopic portion of the report in rendering the fi nal pathologic ? diagnosis. ? ---Gross Description--- ? Labeled/Fixative: ? Left inguinal hernia sac, abdullahi sh. ? Quantity/Size: ?One, 3.0 x 1.0 x 0.4 cm. ? Tissue Description: ? ? Soft, avendaño-pink, semitransparent, membranous tissue ? without grossly identifiable lesions. ? Sections/Processing: ??No sections are submitted. ??a je/SNS ? ---Clinical Information--- ? Specimen Submitted: ? A - Left inguinal hernia sac ? Clinical History/Diagnosis: ? Left inguinal hernia repair Specimen (Source) Anatomical Collection Method Collection Time Re ceived Time Location / / Volume Laterality 03/10/2011 8:40 AM EDT Ponce Hess MD PATHOLOGY/CYTOLOGY ORDERABLE S Performing Organization Address City/State/[place] [address] [facility] documented in this encounter Visit Diagnoses Not on filedocumented in this encounter Administered Medications Inactive Administered Medications - up to 3 most recent administrations Medication Order MAR Action Action Date Dose Rate Site BUpivacaine (PF) (MARCAINE) 0.5 % Given 03/10/2011 8:00 AM EDT 3 0 mLs (5 mg/mL) injection ONCE PRN, 1 dose, Starting on Sun03/10/11 at 0800, Until Sun03/10/11 at 0800, Intra-Operative (Intra-Procedure), Routine ceFAZolin (ANCEF) 1g in dextrose 5% 50mL Given 03/10/2011 7:52 AM EDT 1 g 1,000 mg (1 g), Intravenous, ONCE, 1 dose, On Sun03/10/11 at 0645, Administer over 30 Minutes, Redose after 4 hours., Day of Surgery (Day of Procedure) OXYcodone (ROXICODONE) immediate release tablet Given 03/10/2011 9:50 AM EDT 5 mg 5 mg 5 mg, Oral, ONCE PRN, 1 dose, Starting on Sun03/10/11 at 0927, Until Sun03/10/11 at 0950, Pain, Routine documented in this encounter Active and Recently Administered Medications Times are shown in EDT. Scheduled Medication Order 03/08/2011 03/09/2011 03/10/2011 ceFAZolin (ANCEF) 1g in dextrose 5% 50mL (COMPLETED) 0645 (Due)0752 (Given - Provider: Ponce Hess MD) 1 g = 1,000 mg, Intravenous, ONCE, 1 dos e, 03/10/11 at 0645, for 30 Minutes, Redose after 4 hours., Day of Surgery (Pre-Op) PRN Medication Order 03/08/2011 03/09/2011 03/10/2011 BUpivacaine (PF) (MARCAINE) 0.5 % (5 mg/mL) injection (COMPLETED ) 0800 (Given - Provider: Ponce Hess MD) ONCE PRN, 1 dose, Starting Sun03/10/11 a t 0800, Until Sun03/10/11 at 0800, Intra-operative, Routine OXYcodone (ROXICODONE) immediate release tablet 5 mg (COMPLETED) 0950 (Given - Provider: Soha Villatoro RN)1000 (Due) 5 mg, Oral, ONCE PRN, 1 dose, Starting F ri 03/10/11 at 0927, Until Sun03/10/11 at 2359, Pain, Routine documented in this encounter Care Teams Force Adjustment Supervisor Relationship Specialty Start Date End Date Giorgio Cardona MD PCP - General 10/04/10 04/10/17 [facility] GENER[place] [address] documented as of this encounter
--- OUTSIDE RECORDS SUMMARY | 2022-10-09 16:21 | XMS_ITS | Encounter Summary ---
:1940 Author Organization [facility] [place] [address] Care Team Providers Name Role Phone Unavailable Primary Care Provider Unavailable Encounter Details Date Type Department Care Team Description 09/12/2010 Office Visit Internal Medicine at [facility] [place] Giorgio Cardona MD [facility] [place] [address] GENERAL INTERNAL [phone] MEDICINE [place], [place] [address] (Wo rk) Social History Tobacco Use Types Packs/Day Years Used Date Smoking Tobacco: Never Assessed Sex Assigned at Date Recorded Not on file documented as of this encounter Plan of Treatment Upcoming Encounters Date Type Specialty Care Team Description 10/11/2022 Office Visit Dermatology Virgilio Mckeon MD [facility] DR CHRISTIANO HENSON-DERMAT OLOGY [place], [place] [address] (Wo rk) 10/16/2022 Office Visit Otolaryngology Frank Buchanan MD [facility] OTOLARYNGOLOGY Sarah EPT. [place], [place] [address] (Wo rk) 11/29/2022 Appointment Hematology and Oncology 11/29/2022 Office Visit Radiation Oncology Emerald Leyva APRN [facility] DR RADIATION ONCOLO [place], [place] [address] (Wo rk) documented as of this encounter Visit Diagnoses Not on filedocumented in this encounter
--- OUTSIDE RECORDS SUMMARY | 2022-10-09 16:21 | XMS_ITS | Encounter Summary ---
:1940 Author Organization [facility] [place] [address] Care Team Providers Name Role Phone Giorgio Cardona MD Primary Care Provider Encounter Details Date Type Department Care Team Description 03/17/2011 Orders Only Cardiothoracic Surge ry Kay Gonzalez, Lung cancer (Primary [facility] Sarah SANTANA Dx) [place] [address] [facility] [phone] CENTER UROLOGMireille [place], [place] [address] Social History Tobacco Use Types [...] Virgilio Mckeon MD [facility] DR CHRISTIANO HENSON-DERMAT OLOGY [place], [place] [address] (Wo rk) 10/16/2022 Office Visit Otolaryngology Frank Buchanan MD [facility] OTOLARYNGOLOGMireille Smith EPT. [place], [place] [address] (Wo rk) 11/29/2022 Appointment Hematology and Oncology 11/29/2022 Office Visit Radiation Oncology Emerald Leyva APRN [facility] RADIATION ONCOLO [place], [place] [address] (Wo rk) documented as of this encounter Visit Diagnoses Diagnosis Lung cancer - Primary Malignant neoplasm of bronchus and lung, unspecified site documented in this encounter Care Teams Compressor Station Engineer Relationship Specialty Start Date End Date Giorgio Cardona MD PCP - General 10/04/10 04/10/17 [facility] [place] [address] documented as of this encounter
--- OUTSIDE RECORDS SUMMARY | 2022-10-09 16:21 | XMS_ITS | Encounter Summary ---
:1940 [place] [address] Care Team Providers Name Role Phone Giorgio Cardona MD Primary Care Provider Encounter Details Date Type Department Care Team Description 03/10/2011 [facility] Sharita Avendano MD [facility] [address] [address] [place] [address] [phone] Social History Tobacco Use Types Packs/Day Years [...] to call your physician or the hospital vertical roll operator if you have any questions, and they will be happy to assist you. PATIENT INSTRUCTIONS HERNIA FOLLOW-UP: Please make an appointment with your physician in {NUMBER:[phone]} {TIME PERIOD:9075}. Callyour physician immediately if you [...] to call your physician or the hospital vertical roll operator if you have any questions, and they will be glad to assist you. Patient InstructionsNick Castano MD - 03/10/2011 9:26 AM EDT Discharge home Followup [address] Bowie Remove dressing 48 hr May shower tomorrow [...] this encounter Miscellaneous Notes Miscellaneous - Provider, Isa - 03/10/2011 10:59 PM EDT Op Note - Ponce Bowie MD - 03/10/2011 4:47 PM EDT Operative Note Patient Name: Katlin Mina : [id number] MR#: [id number] Case Date: 03/10/2011 Surgeon: Surgeon(s) and Role: * PONCE BOWIE MD - Primary * NICK CASTANO MD - Surgeon John Preoperative diagnosis: recurrent left inguinal hernia Postoperative diagnosis: recurrent left inguinal hernia Procedure(s): HERNIA REPAIR, INGUINAL, RECURRENT General Procedure Description: Date of Procedure: March 10, 2011. Preoperative Diagnosis: Left recurrent inguinal hernia. Postoperative Diagnosis: Left recurrent indirect inguinal hernia. Procedure: Left inguinal hernia repair with mesh patch. Surgeon: Dr. Ponce Bowie. Wrecker Driver: Dr. Nick Castano. Anesthesia: General. Fluids: 500 [...] the case. Brief Op Note - Ponce Bowie MD - 03/10/2011 4:39 PM EDT Brief Operative Note Patient Name: Katlin Mina : [id number] MR#: [id number] Case Date: 03/10/2011 Surgeon: Surgeon(s) and Role: * PONCE BOWIE MD - Primary * NICK CASTANO MD - Surgeon John Preoperative diagnosis: recurrent left inguinal hernia Postoperative diagnosis: recurrent left inguinal hernia Procedure(s): HERNIA REPAIR, INGUINAL, RECURRENT General Findings: left recurrent indirect hernia Specimen; hernia sac Drains; none Complications: none (Please see the Surgical Encounter Summary for any Implant and Specimen details pertinent to this patient.) OR Attestation - Ponce Bowie MD - 03/10/2011 4:35 PM EDT I attest that I was present and scrubbed with the resident staff for the entire case excluding skin closure. Brief Op Note - Nick Castano MD - 03/10/2011 9:19 AM EDT Brief Operative Note Patient Name: Katlin Mina : [id number] MR#: [id number] Case Date: 03/10/2011 Surgeon: Surgeon(s) and Role: * PONCE BOWIE MD - Primary * NICK CASTANO MD [...] [facility] DR CHRISTIANO HENSON-DERMAT OGY [place], [place] [address] (Wo rk) 10/16/2022 Office Visit Otolaryngology Frank Buchanan MD [facility] OTOLARYNGOLOGY Sarah EPT. [place], [place] [address] (Wo rk) 11/29/2022 Appointment Hematology and Oncology 11/29/2022 Office Visit Radiation Oncology Emerald Leyva APRN [facility] RADIATION ONCCESAR GY [place], [place] [address] (Wo rk) documented as of [...] Component Value Ref Test Analysis Performed At [facility] Range Method Time Signature Surgical CERNER Pathology ? [facility] Report ? Provider: ?? PONCE BOWIE ?Pt. Name: ?? RACQUEL KATLIN Rodriguez ? Acc #: ?[id number] ?Pt. MRN: ?[id number] ? Col Date: ?? 1 ? /Sex: ?1940,(70 years),Male ? Rec Date: ?? 03/10/2011 ? LOC: ?SDP ? SURGICAL PATHOLOGY ? ---Pathologic Diagnosis--- ? Fibromembranous tissue, hernia sac, left inguinal. ?Gross surgical pathology examination. ? CR-0 ? 03/11/11 ? AJE ? 03/13/11 Verified by: ? Dina GALINDO, Lencho Beaulieu ? Pathologist ? (Electronic Si gnature) ? [...] Volume Laterality 03/10/2011 8:40 AM EDT Ponce Bowie MD PATHOLOGY/CYTOLOGY ORDERABLE S Performing Organization Address City/State/[place] [address] [facility] documented in this encounter Visit Diagnoses Diagnosis Inguinal hernia recurrent unilateral Inguinal hernia without mention of obstr uction or gangrene, recurrent unilateral or unspecified documented in this encounter Administered Medications Inactive Administered Medications - up to 3 most recent administrations Medication Order MAR Action Action Date Dose Rate Site OXYcodone (ROXICODONE) immediate Given 03/10/2011 9:50 AM EDT 5 mg release tablet 5 mg 5 mg, Oral, ONCE PRN, 1 dose, Starting on Sun03/10/11 at 0927, Until Sun03/10/11 at 0950, Pain, Routine documented in this encounter Active and Recently Administered Medications Times are shown in EDT. Scheduled Medication Order 03/08/2011 03/09/2011 03/10/2011 ceFAZolin (ANCEF) 1g in dextrose 5% 50mL (COMPLETED) 0645 (Due)0752 (Given - Provider: Ponce Bowie MD) 1 g = 1,000 mg, Intravenous, ONCE, 1 dos e, Sun03/10/11 at 0645, for 30 Minutes, Redose after 4 hours., Day of Surgery (Pre-Op) PRN Medication Order 03/08/2011 03/09/2011 03/10/2011 BUpivacaine (PF) (MARCAINE) 0.5 % (5 mg/mL) injection (COMPLETED ) 0800 (Given - Provider: Ponce Bowie MD) ONCE PRN, 1 dose, Starting Sun03/10/11 a t 0800, Until Sun03/10/11 at 0800, Intra-operative, Routine OXYcodone (ROXICODONE) immediate release tablet 5 mg (COMPLETED) 0950 (Given - Provider: Soha Villatoro RN)1000 (Due) 5 mg, Oral, ONCE PRN, 1 dose, Starting F 03/10/11 at 0927, Until Sun03/10/11 at 2359, Pain, Routine documented in this encounter Care Teams Flatbed Driver Relationship Specialty Start Date End Date Giorgio Cardona MD PCP - General 10/04/10 04/10/17 [facility] [place] [address] documented as of this encounter
--- OUTSIDE RECORDS SUMMARY | 2022-10-09 16:21 | XMS_ITS | Encounter Summary ---
:1940 [place] [address] Care Team Providers Name Role Phone Giorgio Cardona MD Primary Care Provider Encounter Details Date Type Department Care Team Description 03/10/2011 Anesthesia Event Main Operating Room Benita Krueger MD [facility] DR AN[place] [address] [facility] Pepper Amaya [facility] DR ANESTHESIOLOGY [place] [address] [place] [address] Anesthesia Record Procedure Summary Procedure Name Responsible Anesthesia Start Anesthesia Stop Time Anesthesiologist Time HERNIA REPAIR, Benita Mackenzie MD 03/10/11 0724 03/10/11 0 921 INGUINAL, RECURRENT (WRVU 9.99) (Left: Pelvis) Events Date Time Event Comment 03/10/2011 0703 0724 Start 0921 Stop No medications on file. Agents No agents on file. Blood No blood administrations on file. Lines, Drains, and Airways Type Details Placement Removal PIV 03/10/11; 0640; 03/10/11; 03/10/11 0640 by Amadou jung, 03/10/11 1054 by Irving 1054 Neyda A, RN Soha R, RN documented in this encounter Social History Tobacco Use Types Packs/Day Years Used Date Smoking Tobacco: Never Alcohol Use Standard Drinks/Week Comments No 0 (1 standard drink = 0.6 oz pure alcoho l) Sex Assigned at Date Recorded Not on file documented as of this encounter OR Notes Anesthesia Postprocedure Evaluation - Benita Mackenzie MD - 03/10/2011 5:56 PM EDT Patient: Alfredito Mina Procedure(s) Performed: HERNIA REPAIR, INGUINAL, RECURRENT Patient location: PACU Post-op pain: Adequate analgesia Post-op nausea: no nausea or vomiting Last Vitals: Filed Vitals: 03/10/11 1019 BP: 136/54 Pulse: 55 Temp: Resp: 16 Post-op cardiovascular and respiratory status: is stable Level of consciousness: awake, alert and oriented Complications: no apparent complications, tolerated the procedure well and no evidence of recall Fluid Status: normal Anesthesia Preprocedure Evaluation - Pepper Amaya CRNA - 03/09/2011 9:02 PM EDT Anesthesia Evaluation Patient summary reviewed and Nursing notes reviewed No hx of anesthetic complications Airway Mallampati: II TM distance: >3 FB Neck ROM: full Comment: Goiter with tracheal deviation Dental Comment: Multiple missing in back. No loose Pulmonary breath sounds clear to auscultation (+) COPD mild, (-) shortness of breath and recent URI ROS comment: Lung ca sp thoracotomy Cardiovascular Exercise tolerance: good (+) hypertension well controlled, valvular problems/murmurs, (-) past ID, angina, CHF, orthopnea, PND and NIEVES Rhythm: regular Rate: normal ROS comment: Hx of mvr Neuro/Psych - negative ROS GI/Hepatic/Renal (+) GERD well controlled, Endo/Other Comments: Thyroid goiter causing tracheal deviation. No difficulty intubating in past Abdominal Anesthesia Plan ASA 2 General with intravenous induction LMA Anesthetic plan and risks discussed with patient and spouse. Plan discussed with PLACEMENT OFFICER. documented in this encounter Miscellaneous Notes Addendum Note - Grace Tucker - 03/14/2011 8:52 AM EDT Addendum created 03/14/11 0852 by Grace Tucker Modules edited:Anesthesia Events, Anesthesia Responsible Staff documented in this encounter Plan of Treatment Upcoming Encounters Date Type Specialty Care Team Description 10/11/2022 Office Visit Dermatology Virgilio Mckeon MD [facility] DR CHRISTIANO HENSON-DERMAT OLOGY [place], [place] [address] (Wo rk) 10/16/2022 Office Visit Otolaryngology Frank Buchanan MD [facility] OTOLARYNGOLOGY D EPT. [place], [place] [address] (Wo rk) 11/29/2022 Appointment Hematology and Oncology 11/29/2022 Office Visit Radiation Oncology Emerald Leyva APRN [facility] RADIATION ONCOLO GY [place], [place] [address] (Wo rk) documented as of this encounter Visit Diagnoses Not on filedocumented in this encounter Care Teams Travel Registered Nurse Nicu Relationship Specialty Start Date End Date Giorgio Cardona MD PCP - General 10/04/10 04/10/17 [facility] GENERAL [place] [address] documented as of this encounter
--- OUTSIDE RECORDS SUMMARY | 2022-10-09 16:21 | XMS_ITS | Encounter Summary ---
:1940 Author Organization [facility] [place] [address] Care Team Providers Name Role Phone Giorgio Cardona MD Primary Care Provider Reason for Referral Surgical (Routine) - Closed Specialty Diagnoses / Referred By Contact Referred To Contact Procedures Orthopaedic Surgery / Diagnoses Osteoarthritis Giorgio Cardona MD [facility] 3a Orthopaedics [facility] enter [address] Pereira GENERAL INTERNAL [place], [place] [address] [place] [address] Referral ID Status Reason Start Date Expiration Date Visits V isits Requested Authorized [id number] Closed Consult, 02/22/2011 02/23/2011 1 1 Test & Treat Reason for Visit Reason Onset Date Comments Medication Refill 02/22/2011 Encounter Details Date Type Department Care Team Description 02/22/2011 Refill Internal Medicine at Deandre Cardona MD Osteoarthritis (Primary [facility] Dx) [facility] [place] [address] MEDICINE [phone] [place], [place] [address] (Wo rk) Social History Tobacco [...] [facility] DR CHRISTIANO HENSON-DERMAT OLOGY [place], [place] [address] (Wo rk) 10/16/2022 Office Visit Otolaryngology Frank Buchanan MD [facility] OTOLARYNGOLOGY Sarah EPT. [place], [place] [address] (Wo rk) 11/29/2022 Appointment Hematology and Oncology 11/29/2022 Office Visit Radiation Oncology Emerald Leyva APRN [facility] RADIATION ONCOLO GY [place], [place] [address] (Wo rk) Scheduled Referrals Name Type Priority Associated Diagnoses Order S chedule REFERRAL TO Outpatient Routine Osteoarthritis Ordered: ORTHOPAEDICS Referral 02/22/2011 documented as of this encounter Visit Diagnoses Diagnosis Osteoarthritis - Primary Osteoarthrosis, unspecified whether gene ralized or localized, unspecified site documented in this encounter Care Teams Management Liaison Relationship Specialty Start Date End Date Giorgio Cardona MD PCP - General 10/04/10 04/10/17 [facility] GENERAL [place] [address] documented as of this encounter
--- OUTSIDE RECORDS SUMMARY | 2022-10-09 16:21 | XMS_ITS | Encounter Summary ---
:1940 Author Organization [facility] [place] [address] Care Team Providers Name Role Phone Unavailable Primary Care Provider Unavailable Encounter Details Date Type Department Care Team Description 09/19/2010 Office Visit Endocrinology at [facility] Rubin Mendoza MD [facility] [place] [address] ENDOCRINOLOGY DEPT. [phone] [place], [place] [address] Social History Tobacco Use Types Packs/Day Years Used Date Smoking Tobacco: Never Assessed Sex Assigned at Date Recorded Not on file documented as of this encounter Plan of Treatment Upcoming Encounters Date Type Specialty Care Team Description 10/11/2022 Office Visit Dermatology Virgilio Mckeon MD [facility] DR CHRISTIANO HENSON-DERMAT OLOGY [place], [place] [address] (Wo rk) 10/16/2022 Office Visit Otolaryngology Frank Buchanan MD [facility] OTOLARYNGOLOGY D EPT. [place], [place] [address] (Wo rk) 11/29/2022 Appointment Hematology and Oncology 11/29/2022 Office Visit Radiation Oncology Emerald Leyva APRN [facility] DR MICHELE ONCCESAR GY [place], [place] [address] (Wo rk) documented as of this encounter Visit Diagnoses Not on filedocumented in this encounter
--- OUTSIDE RECORDS SUMMARY | 2022-10-09 16:21 | XMS_ITS | Encounter Summary ---
:1940 Author Organization [facility] [place] [address] Care Team Providers Name Role Phone Giorgio Cardona MD Primary Care Provider Reason for Visit Reason Onset Date Comments Knee Pain 02/22/2011 RT KNEE DJD ?OPTIONS ? Encounter Details Date Type Department Care Team Description 02/22/2011 Telephone Orthopaedics at [facility] [place]-Marker, Knee Pain (RT KNEE DJD [facility] Sarah Funes APRN ?OPTIONS?) [place] [address] [facility] [phone] DR ORTHOPAEDIC SURGERY [place], [place] [address] Social History Tobacco Use Types Packs/Day Years Used Date Smoking Tobacco: Never Alcohol Use Standard Drinks/Week Comments No 0 (1 standard drink = 0.6 oz pure alcoho l) Sex Assigned at Date Recorded Not on file documented as of this encounter Miscellaneous Notes Telephone Encounter - Erendira Cherry - 02/22/2011 12:09 PM EDT RT KNEE DJD ?OPTIONS? documented in this encounter Plan of Treatment Upcoming Encounters Date Type Specialty Care Team Description 10/11/2022 Office Visit Dermatology Virgilio Mckeon MD [facility] ER DR CHRISTIANO HENSON-DERMAT OLOGY [place], [place] [address] (Wo rk) 10/16/2022 Office Visit Otolaryngology Frank Buchanan MD [facility] OTOLARYNGOLOGY Sarah EPT. [place], [place] [address] (Wo rk) 11/29/2022 Appointment Hematology and Oncology 11/29/2022 Office Visit Radiation Oncology Emerald Leyva APRN [facility] RADIATION ONCOLO GY [place], [place] [address] (Wo rk) documented as of [...] in this encounter Visit Diagnoses Diagnosis Pain - Primary Generalized pain Pain Generalized pain documented in this encounter Care Teams Supervisor Engraving Relationship Specialty Start Date End Date Giorgio Cardona MD PCP - General 10/04/10 04/10/17 [facility] [place] [address] documented as of this encounter
--- OUTSIDE RECORDS SUMMARY | 2022-10-09 16:21 | XMS_ITS | Encounter Summary ---
:1940 Author Organization [facility] Address [facility] [place] [address] Care Team Providers Name Role Phone Giorgio Cardona MD Primary Care Provider Reason for Visit Reason Comments Inguinal Hernia Encounter Details Date Type Department Care Team Description 02/14/2011 Office Visit General Surgery at [facility], Ingu inal hernia [facility] recurrent unilateral [facility] (Pr imary Dx) Drive [address] [place], [place] GENERAL SURGERY [address] [place] [address] [phone] Social History Tobacco Use Types Packs/Day Years Used Date Smoking Tobacco: Never Alcohol Use Standard Drinks/Week Comments No 0 (1 standard drink = 0.6 oz pure alcoho l) Sex Assigned at Date Recorded Not on file documented as of this encounter Last Filed Vital Signs Vital Sign Reading Time Taken Comments Blood Pressure 136/80 02/14/2011 9:05 AM EDT Pulse 66 02/14/2011 9:05 AM EDT Temperature 36.6 ??C (97.9 ??F) 02/14/2011 9:05 AM EDT Respiratory Rate 18 02/14/2011 9:05 AM EDT Oxygen Saturation 96% 02/14/2011 9:05 AM EDT Inhaled Oxygen Concentration - - Weight 70.8 kg (156 lb 1.6 oz) 02/14/2011 9:05 AM EDT Height 163.2 cm (5' 4.25) 02/14/2011 9:05 AM EDT Body Mass Index 26.58 02/14/2011 9:05 AM EDT documented in this encounter Progress Notes Ponce Hess MD - 02/14/2011 10:18 AM EDT Reason for Consult: Left inguinal hernia. History of Present Illness: The patient is a very pleasant 70-year-old gentleman who presents to my clinic at the request of his PCP for evaluation of a newly painful left groin mass. The patient was seen by his PCP recently who diagnosed him with a hernia and sent him to my office for evaluation. The patient states that over the past two to three months after an episode of pneumonia he noted an increased pain in the left groin associated with a mass. He states that this mass has slowly increased in size and is intermittently painful, especially with any activity. He denies any GI complaints, including nausea, vomiting, fevers, chills, melena, bright red blood per rectum, or change in bowel habits. He states that given the increase in size and the increased discomfort he would like to have this addressed surgically. The patient's past history is notable for a left inguinal hernia repair done in 1962, most likely without mesh. On further interview with the patient, the patient otherwise states he is in his normal state of good health. He states he is quite active on a daily basis, walking and working in his woodshop. He denies any complaints of review of systems, specifically any chest pain, shortness of breath, or any other anginal equivalence. He has no constitutional symptoms including fevers, chills, nausea, malaise, weight loss, or fever. GI: Review as noted above. He does have a history of lung cancer status post wide VATS for which he is being followed by Dr. Jacome from Thoracic Surgery. He is doing quite well from this per his report. All other reviews are negative. He comes to my office today for consideration of operative repair. Past Medical History: Notable for lung cancer, prostate cancer status post XRT. He is status post a thyroid ablation. He has a history of BPH and a history of hypertension. Past Surgical History: Status post a left inguinal hernia repair in 1962, status post right inguinal hernia repair five years ago with mesh, status post right VATS lobectomy in 2010, status post mitral valve repair. He is status post umbilical hernia repair. Medications: Atenolol, Prilosec, Lasix, and Hytrin. Allergies: None. Social: He denies any alcohol or tobacco use. 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 On exam, he is a healthy appearing gentleman in no acute distress. His sclerae are anicteric. His lungs are clear to auscultation bilaterally. His heart is regular with no murmur, gallop, or rub. His abdomen is soft, nondistended, nontender. On inguinal exam, the patient has clearly evident left inguinal hernia on Valsalva and cough which is reducible. There is no evidence of recurrent right inguinal hernia. Both testes are descended and nontender. Extremities are without clubbing, cyanosis, or edema. Assessment and Plan: A 70-year-old gentleman with a recurrent left inguinal hernia, which is becoming increasingly symptomatic and is a quite active 70-year-old gentleman. I discussed with him at quite a bit of length the pathophysiology of hernia disease, and I have answered all his questions satisfactorily. I have recommended an open repair with mesh to which he has accepted. He underwent informed consent to include risk and benefits, which include, but not limited to bleeding, infection, recurrence, or spermatic cord injury. The patient understands this and wishes to proceed. We will send him to the preoperative testing center preoperatively. He requests to have this performed sometime early in March as this is best for his schedule. He was counseled to return should he have any worsening pain or nonreducible mass. He understands this and agrees to that plan. Thank you for sending me this very nice gentleman. documented in this encounter Plan of Treatment Upcoming Encounters Date Type Specialty Care Team Description 10/11/2022 Office Visit Dermatology Virgilio Mckeon MD [facility] DR CHRISTIANO HENSON-DERMAT [place], [place] [address] (Wo rk) 10/16/2022 Office Visit Otolaryngology Frank Buchanan MD [facility] OTOLARYNGOLOGY D EPT. [place], [place] [address] (Wo rk) 11/29/2022 Appointment Hematology and Oncology 11/29/2022 Office Visit Radiation Oncology Emerald Leyva APRN [facility] RADIATION ONCOLO GY [place], [place] [address] (Wo rk) documented as of this encounter Visit Diagnoses Diagnosis Inguinal hernia recurrent unilateral - P rimary Inguinal hernia without mention of obstr uction or gangrene, recurrent unilateral or unspecified documented in this encounter Care Teams Corporate Event Planner Relationship Specialty Start Date End Date Giorgio Cardona MD PCP - General 10/04/10 04/10/17 [facility] GENERAL INTER[place] [address] documented as of this encounter
--- OUTSIDE RECORDS SUMMARY | 2022-10-09 16:21 | XMS_ITS | Encounter Summary ---
:1940 Author Organization [facility] [place] [address] Care Team Providers Name Role Phone Giorgio Cardona MD Primary Care Provider Encounter Details Date Type Department Care Team Description 02/14/[address] Scan at [facility], DR [facility] Giorgio Cardona MD [facility] GENER[place] [address] [place] [address] Social History Tobacco Use Types Packs/Day [...] [facility] DR CHRISTIANO HENSON-DERMAT OLOGY [place], [place] [address] (Wo rk) 10/16/2022 Office Visit Otolaryngology Frank Buchanan MD [facility] OTOLARYNGOLOGY D EPT. [place], [place] [address] (Wo rk) 11/29/2022 Appointment Hematology and Oncology 11/29/2022 Office Visit Radiation Oncology Emerald Leyva APRN [facility] RADIATION ONCCESAR GY [place], [place] [address] (Wo rk) documented as of this encounter Procedures Procedure Name Priority Date/Time Associated Diagnosis Comme nts CT CHEST W CONTRAST Routine 02/14/2011 8:33 AM Re sults for this EDT procedure are i n the results section. documented in this encounter Results CT CHEST WITH CONTRAST (02/14/2011 8:33 AM EDT) Anatomical Region Laterality Modality Chest Computed Tomography Specimen (Source) Anatomical Collection Method Collection Time Re ceived Time Location / / Volume Laterality 02/14/2011 8:33 AM EDT Impressions 02/14/2011 12:11 PM EDT IMPRESSION: ?? Stable exam. ??Post-right lower lobectom y. ??No evidence of neoplasm or recurrence. ?? Narrative 02/14/2011 12:[address] CHEST: ?? CLINICAL: ??Followup lung cancer. ?? TECHNIQUE: 60 cc Omnipaque-350 utilized for an intravenously enhanced CT of the chest of the chest. ?? COMPARISON: Compared to a study from Sep. ?? FINDINGS: Post-right lower lobectomy. ?? Postsurgical bed unremarkable and stable. ??No suspicious pulmonary nodule s, areas of airspace consolidation, or pleural effusion. ?? The soft tissues of the chest are stable . ??A known large substernal goiter is noted. ??It is displacing the trachea to the right, as noted previously. ??No adenopathy. ??A stable, 2.4 cm, left adr enal nodule is seen. ??Scattered cysts and scarring are seen in the kidneys. ?? The osseous structures are unremarkable for metastasis. ?? Procedure Note Mane Scott MD - 02/14/2011Form atting of this note might be different from the original. CT CHEST: CLINICAL: Followup lung cancer. TECHNIQUE: 60 cc Omnipaque-350 utilized for an intravenously enhanced CT of the chest of the chest. COMPARISON: Compared to a study from Sep. FINDINGS: Post-right lower lobectomy. Po stsurgical bed unremarkable and stable. No suspicious pulmonary nodules, areas of airspace consolidation, or pleural effusion. The soft tissues of the chest are stable . A known large substernal goiter is noted. It is displacing the trachea to t he right, as noted previously. No adenopathy. A stable, 2.4 cm, left adren al nodule is seen. Scattered cysts and scarring are seen in the kidneys. The osseous structures are unremarkable for metastasis. IMPRESSION IMPRESSION: Stable exam. Post-right lower lobectomy. No evidence of neoplasm or recurrence. Giorgio Cardona MD IMG CT ORDERABLES documented in this encounter Visit Diagnoses Not on filedocumented in this encounter Administered Medications Inactive Administered Medications - up to 3 most recent administrations Medication Order MAR Action Action Date Dose Rate Site iohexol (OMNIPAQUE) 350 mg/mL Given 02/14/2011 8:32 AM EDT 21,00 0 mg injection 21,000 mg 21,000 mg (60 mL), Intravenous, ONCE PRN, 1 dose, Starting on Sun02/14/11 at 0830, Until Sun02/14/11 at 0832, Per Protocol, Routine documented in this encounter Care Teams Television Installer Helper Relationship Specialty Start Date End Date Giorgio Cardona MD PCP - General 10/04/10 04/10/17 [facility] GENERAL INTERNAL MEDICINE [place] [id number] documented as of this encounter
--- OUTSIDE RECORDS SUMMARY | 2022-10-09 16:21 | XMS_ITS | Encounter Summary ---
:1940 Author Organization [facility] [place] [address] Care Team Providers Name Role Phone Giorgio Cardona MD Primary Care Provider Encounter Details Date Type Department Care Team Description 02/14/2011 Clinical Support Same Day at [facility] [place] [address] Social History Tobacco Use Types Packs/Day Years Used Date Smoking Tobacco: Never Alcohol Use Standard Drinks/Week Comments No 0 (1 standard drink = 0.6 oz pure alcoho l) Sex Assigned at Date Recorded Not on file documented as of this encounter Last Filed Vital Signs Vital Sign Reading Time Taken Comments Blood Pressure - - Pulse 64 02/14/2011 10:22 AM EDT Temperature - - Respiratory Rate - - Oxygen Saturation 97% 02/14/2011 10:22 AM EDT Inhaled Oxygen Concentration - - Weight 70.2 kg (154 lb 12.2 oz) 02/14/2011 10:22 AM EDT Height 170.2 cm (5' 7.01) 02/14/2011 10:22 AM EDT Body Mass Index 24.23 02/14/2011 10:22 AM EDT documented in this encounter Plan of Treatment Upcoming Encounters Date Type Specialty Care Team Description 10/11/2022 Office Visit Dermatology Virgilio Mckeon MD [facility] DR CHRISTIANO HENSON-DERMAT [place], [place] [address] (Wo rk) 10/16/2022 Office Visit Otolaryngology Frank Buchanan MD [facility] OTOLARYNGOLOGY Sarah EPT. [place], [place] [address] (Wo rk) 11/29/2022 Appointment Hematology and Oncology 11/29/2022 Office Visit Radiation Oncology Emerald Leyva APRN [facility] RADIATION ONCOLO GY [place], [place] [address] (Wo rk) documented as of this encounter Visit Diagnoses Not on filedocumented in this encounter Care Teams Quenching Car Operator Relationship Specialty Start Date End Date Giorgio Cardona MD PCP - General 10/04/10 04/10/17 [facility] GENERAL [place] [address] documented as of this encounter
--- OUTSIDE RECORDS SUMMARY | 2022-10-09 16:21 | XMS_ITS | Encounter Summary ---
:1940 Author Organization [facility] [place] [address] Care Team Providers Name Role Phone Giorgio Cardona MD Primary Care Provider Encounter Details Date Type Department Care Team Description 01/27/2011 Office Visit Internal Medicine at [facility] Sandra Seth APRN [facility] Sarah [facility] [place] [address] GENERAL INTERNAL [phone] MEDICINE [place], [place] [address] (Wo rk) Social History Tobacco Use Types Packs/Day Years Used Date Smoking Tobacco: Never Assessed Sex Assigned at Date Recorded Not on file documented as of this encounter Plan of Treatment Upcoming Encounters Date Type Specialty Care Team Description 10/11/2022 Office Visit Dermatology Virgilio Mckeon MD [facility] DR CHRISTIANO HENSON-DERMAT OLOGY [place], [place] [address] (Wo rk) 10/16/2022 Office Visit Otolaryngology Frank Buchanan MD [facility] OTOLARYNGOLOGY D EPT. [place], [place] [address] (Wo rk) 11/29/2022 Appointment Hematology and Oncology 11/29/2022 Office Visit Radiation Oncology Emerald Leyva, SIGN WIRER [facility] RADIATION ONCOLO [place], [place] [address] (Wo rk) documented as of this encounter Visit Diagnoses Not on filedocumented in this encounter Care Teams Admissions Specialist Relationship Specialty Start Date End Date Giorgio Cardona MD PCP - General 10/04/10 04/10/17 [facility] GENERAL INTERNAL [place] [address] documented as of this encounter
--- OUTSIDE RECORDS SUMMARY | 2022-10-09 16:21 | XMS_ITS | Encounter Summary ---
:1940 Author Organization [facility] [place] [address] Care Team Providers Name Role Phone Giorgio Cardona MD Primary Care Provider Encounter Details Date Type Department Care Team Description 10/24/[address] Scan at [facility], DR ANN MARIE [facility] Giorgio Naranjo MD [facility] [place] [address] [place] [address] Social History Tobacco Use Types Packs/Day Years Used Date Smoking Tobacco: Never Assessed Sex Assigned at Date Recorded Not on file documented as of this encounter Plan of Treatment Upcoming Encounters Date Type Specialty Care Team Description 10/11/2022 Office Visit Dermatology Virgilio Mckeon MD [facility] DR CHRISTIANO HENSON-DERMAT OLOGY [place], [place] [address] (Wo rk) 10/16/2022 Office Visit Otolaryngology Frank Buchanan MD [facility] OTOLARYNGOLOGY D EPT. [place], [place] [address] (Wo rk) 11/29/2022 Appointment Hematology and Oncology 11/29/2022 Office Visit Radiation Oncology Emerald Leyva, SOFTWARE MAINTENANCE ENGINEER [facility] RADIATION ONCOLO GY [place], [place] [address] (Wo rk) documented as of this encounter Visit Diagnoses Not on filedocumented in this encounter Care Teams Customer Retention Representative Relationship Specialty Start Date End Date Giorgio Cardona MD PCP - General 10/04/10 04/10/17 [facility] [place] [address] documented as of this encounter
--- OUTSIDE RECORDS SUMMARY | 2022-10-09 16:21 | XMS_ITS | Encounter Summary ---
:1940 Author Organization [facility] [place] [address] Care Team Providers Name Role Phone Unavailable Primary Care Provider Unavailable Encounter Details Date Type Department Care Team Description 09/19/2010 Follow-Up Cardiothoracic Surge Kay Akhtar PA [facility] [place] [address] UROLOGY [phone] [place], [place] [address] (Wo rk) Social History Tobacco Use Types Packs/Day Years Used Date Smoking Tobacco: Never Assessed Sex Assigned at Date Recorded Not on file documented as of this encounter Plan of Treatment Upcoming Encounters Date Type Specialty Care Team Description 10/11/2022 Office Visit Dermatology Virgilio Mckeon MD [facility] DR CHRISTIANO HENSON-DERMAT OLOGY [place], [place] [address] (Wo rk) 10/16/2022 Office Visit Otolaryngology Frank Buchanan MD [facility] OTOLARYNGOLOGY Sarah EPT. [place], [place] [address] (Wo rk) 11/29/2022 Appointment Hematology and Oncology 11/29/2022 Office Visit Radiation Oncology Emerald Leyva APRN [facility] DR MICHELE [place], [place] [address] (Wo rk) documented as of this encounter Visit Diagnoses Not on filedocumented in this encounter
--- OUTSIDE RECORDS SUMMARY | 2022-10-09 16:21 | XMS_ITS | Encounter Summary ---
:1940 Author Organization [facility] [place] [address] Care Team Providers Name Role Phone Giorgio Cardona MD Primary Care Provider Reason for Visit Reason Onset Date Comments Other 03/09/2011 hole in tooth; dribb ling urine Encounter Details Date Type Department Care Team Description 03/09/2011 Telephone General Surgery at [facility] Antoinette Sigala, Other (hole in tooth; [facility] RN dribbling urine) [place] [address] Social History Tobacco Use Types Packs/Day Years Used Date Smoking Tobacco: Never Alcohol Use Standard Drinks/Week Comments No 0 (1 standard drink = 0.6 oz pure alcoho l) Sex Assigned at Date Recorded Not on file documented as of this encounter Miscellaneous Notes Telephone Encounter - Antoinette Sigala RN - 03/09/2011 9:04 AM EDT I received a call from Alfredito he wanted to let us know he had a hole in one of his teeth. He wantedto relay this to Dr. Hess. He also notes he has dribbling urine residual from prostrate urine treatment. I have discussed with him the importance of monitoring his urinary output. We discussed the potential of a stretch injury and the importance of letting his care providers know if he has any trouble voiding. I let him know ifhe has trouble he may be taught how to self cath in lieu of a rosario catheters. He would prefer to self cath instead of having an indwelling catheter. He will stay in touch and let us know of any other concerns or questions. He will await the call from the same day surgery team and his instructions forcoming to surgery tomorrow. documented in this encounter Plan of Treatment Upcoming Encounters Date Type Specialty Care Team Description 10/11/2022 Office Visit Dermatology Virgilio Mckeon MD [facility] DR [place] RD-DERMAT OLOGY [place], [place] [address] (Wo rk) 10/16/2022 Office Visit Otolaryngology Frank Buchanan MD [facility] OTOLARYNGOLOGY Sarah EPT. [place], [place] [address] (Wo rk) 11/29/2022 Appointment Hematology and Oncology 11/29/2022 Office Visit Radiation Oncology Emerald Leyva APRN [facility] RADIATION ONCOLO GY [place], [place] [address] (Wo rk) documented as of this encounter Visit Diagnoses Not on filedocumented in this encounter Care Teams Industrial Insulator Relationship Specialty Start Date End Date Giorgio Cardona MD PCP - General 10/04/10 04/10/17 [facility] [place] [address] documented as of this encounter
--- OUTSIDE RECORDS SUMMARY | 2022-10-09 16:21 | XMS_ITS | Encounter Summary ---
:1940 Author Organization [place] [address] Care Team Providers Name Role Phone Unavailable Primary Care Provider Unavailable Encounter Details Date Type Department Care Team Description 09/19/2010 Procedure visit [place] [address] Social History Tobacco Use Types Packs/Day Years Used Date Smoking Tobacco: Never Assessed Sex Assigned at Date Recorded Not on file documented as of this encounter Plan of Treatment Upcoming Encounters Date Type Specialty Care Team Description 10/11/2022 Office Visit Dermatology Virgilio Mckeon MD [facility] DR CHRISTIANO HENSON-DERMAT [place], [place] [address] (Wo rk) 10/16/2022 Office Visit Otolaryngology Frank Buchanan MD [facility] OTOLARYNGOLOGY D EPT. [place], [place] [address] (Wo rk) 11/29/2022 Appointment Hematology and Oncology 11/29/2022 Office Visit Radiation Oncology Emerald Leyva APRN [facility] RADIATION ONCCESAR [place], [place] [address] (Wo rk) documented as of this encounter Visit Diagnoses Not on filedocumented in this encounter
--- OUTSIDE RECORDS SUMMARY | 2022-10-09 16:21 | XMS_ITS | Encounter Summary ---
:1940 Author Organization [facility] [place] [address] Care Team Providers Name Role Phone Giorgio Cardona MD Primary Care Provider Encounter Details Date Type Department Care Team Description 12/08/2010 Follow-Up Radiation Oncology at [facility] fiona Pugh APRN [address] RADIATION ONCOLOGY [place], [place] [phone] [place] [address] (Wo rk) Social History Tobacco Use Types Packs/Day Years Used Date Smoking Tobacco: Never Assessed Sex Assigned at Date Recorded Not on file documented as of this encounter Plan of Treatment Upcoming Encounters Date Type Specialty Care Team Description 10/11/2022 Office Visit Dermatology Virgilio Mckeon MD [facility] DR CHRISTIANO HENSON-DERMAT OLOGY [place], [place] [address] (Wo rk) 10/16/2022 Office Visit Otolaryngology Frank Buchanan MD [facility] OTOLARYNGOLOGMireille Smith EPT. [place], [place] [address] (Wo rk) 11/29/2022 Appointment Hematology and Oncology 11/29/2022 Office Visit Radiation Oncology Emerald Leyva APRN [facility] RADIATION ONCOLO GY [place], [place] [address] (Wo rk) documented as of this encounter Visit Diagnoses Not on filedocumented in this encounter Care Teams Fagoter Relationship Specialty Start Date End Date Giorgio Cardona MD PCP - General 10/04/10 04/10/17 [facility] GENER[place] [address] documented as of this encounter
--- OUTSIDE RECORDS SUMMARY | 2022-10-09 16:21 | XMS_ITS | Encounter Summary ---
:1940 [place] [address] Care Team Providers Name Role Phone Giorgio Cardona MD Primary Care Provider Encounter Details Date Type Department Care Team Description 09/19/2010 Orders Only Lab [facility] Rubin Conklin MD [facility] Sarah garcia [place] [address] [place] [address] [phone] Social History Tobacco Use Types Packs/Day Years Used Date Smoking Tobacco: Never Assessed Sex Assigned at Date Recorded Not on file documented as of this encounter Plan of Treatment Upcoming Encounters Date Type Specialty Care Team Description 10/11/2022 Office Visit Dermatology Virgilio Mckeon MD [facility] DR CHRISTIANO HENSON-DERMAT OLOGY [place], [place] [address] (Wo rk) 10/16/2022 Office Visit Otolaryngology Frank Buchanan MD [facility] OTOLARYNGOLOGY Sarah EPT. [place], [place] [address] (Wo rk) 11/29/2022 Appointment Hematology and Oncology 11/29/2022 Office Visit Radiation Oncology Emerald Leyva APRN [facility] DR RYNE [place], [place] [address] (Wo rk) documented as of this encounter Procedures Procedure Name Priority Date/Time Associated Diagnosis Comme nts T3 TOTAL EMA 09/19/2010 9:42 AM Results f or this EST procedure are i n the results section. TSH EMA 09/19/2010 9:42 AM Results f or this EST procedure are i n the results section. T4, FREE EMA 09/19/2010 9:42 AM Results f or this EST procedure are i n the results section. BASIC METABOLIC EMA 09/19/2010 9:42 AM Result s for this PANEL (NON-FASTING) EST procedur e are in the results section. documented in this encounter Results (ABNORMAL) TSH (09/19/2010 9:42 AM EST) athologist Signature TSH 0.18 (L) 0.27 - 4.20 CERNER mcIU/mL MILLENNIUM Comment: Cord Blood Reference Range: ??0. 35 23.00 uIU/mL Specimen Anatomical Collection Method Collection Time Receive d Time (Source) Location / / Volume Laterality Blood specimen 09/19/2010 9:42 AM 010 9:57 (specimen) EST AM EST Rubin Delgado MD CHEMISTRY ORDERABLES Performing Organization Address City/[facility] [place] [address] [facility] MILLENNIUM T3 (09/19/2010 9:42 AM EST) athologist Signature T3, Total 88 75 - 170 CERNER ng/dL [facility] Specimen Anatomical Collection Method Collection Time Receive d Time (Source) Location / / Volume Laterality Blood specimen 09/19/2010 9:42 AM 010 9:57 (specimen) EST AM EST Rubin Delgado MD CHEMISTRY ORDERABLES Performing Organization Address City/[facility] [place] [address] [facility] [facility] T4, FREE (09/19/2010 9:42 AM EST) athologist Signature Free T4 1.04 0.90 - 1.60 CERNER ng/dL MILLENNIUM Specimen Anatomical Collection Method Collection Time Receive d Time (Source) Location / / Volume Laterality Blood specimen 09/19/2010 9:42 AM 010 9:57 (specimen) EST AM EST Rubin Delgado MD CHEMISTRY ORDERABLES Performing Organization Address City/State/[place] [address] CERNER MILLENNIUM BASIC METABOLIC PANEL (NON-FASTING) (09/19/2010 9:42 AM EST) P athologist Signature Glucose Lvl 86 <=199 mg/dL CERNER MILLENNIUM Comment: Diabetes: >=200 mg/dL plus symp toms BUN 19 10 - 20 mg/dL CERNER MILLENNIU M Creatinine 0.99 0.80 - 1.50 mg/dL CERNER MILL ENNIUM Sodium 137 135 - 145 mmol/L CERNER [...] - 15 mmol/L CERNER MILLENNIU M Calcium 9.4 8.5 - 10.5 mg/dL CERNER PATRICK NIUM [...] Location / / Volume Laterality Blood specimen 09/19/2010 9:42 AM 010 9:57 (specimen) EST AM EST Rubin Delgado MD CHEMISTRY ORDERABLES Performing Organization Address City/State/ZIP Code Phon e Number [place] [phone] [facility] documented in this encounter Visit Diagnoses Not on filedocumented in this encounter Care Teams Data Modeling Architect Relationship Specialty Start Date End Date Giorgio Cardona MD PCP - General 10/04/10 04/10/17 [facility] [place] [address] documented as of this encounter
--- OUTSIDE RECORDS SUMMARY | 2022-10-09 16:21 | XMS_ITS | Encounter Summary ---
:1940 Author Organization [facility] [place] [address] Care Team Providers Name Role Phone Giorgio Cardona MD Primary Care Provider Encounter Details Date Type Department Care Team Description 02/09/2011 Follow[place]Up [facility] Medicine [place] [facility] Giorgio Cardona MD [facility] [place] [address] GENERAL INTERNAL MEDICINE [phone] [place], [place] [address] (Wo rk) Social History Tobacco Use Types Packs/Day Years Used Date Smoking Tobacco: Never Assessed Sex Assigned at Date Recorded Not on file documented as of this encounter Procedure Notes Provider, Scanning - 02/17/2011 10:24 AM EDTAssociated Order(s): ULTRASOUND SCAN (SCAN) documented in this encounter Plan of Treatment Upcoming Encounters Date Type Specialty Care Team Description 10/11/2022 Office Visit Dermatology Virgilio Mckeon MD [facility] DR CHRISTIANO HENSON-DERMAT OLOGY [place], [place] [address] (Wo rk) 10/16/2022 Office Visit Otolaryngology Frank Buchanan MD [facility] DR DEEOLARYNGOLOGMireille Smith EPT. [place], [place] [address] (Wo rk) 11/29/2022 Appointment Hematology and Oncology 11/29/2022 Office Visit Radiation Oncology Emerald Leyva APRN [facility] RADIATION ONCOLO [place], [place] [address] (Wo rk) documented as of this encounter Procedures Procedure Name Priority Date/Time Associated Comments Diagnosis ULTRASOUND SCAN 02/17/2011 10:24 AM Resul ts for this (SCAN) EDT procedure are i n the results section. documented in this encounter Results ULTRASOUND SCAN (SCAN) (02/17/2011 10:24 AM EDT) Anatomical Region Laterality Modality Other Narrative 02/17/2011 10:29 AM EDT Procedure Note Provider, Scanning - 02/17/2011 10:24 AM EDT Scanning Provider MEDIA MGR SCAN EXT ORDR/RSLT documented in this encounter Visit Diagnoses Not on filedocumented in this encounter Care Teams Otr Truck Driver Relationship Specialty Start Date End Date Giorgio Cardona MD PCP - General 10/04/10 04/10/17 [facility] [place] [address] documented as of this encounter
--- OUTSIDE RECORDS SUMMARY | 2022-10-09 16:21 | XMS_ITS | Encounter Summary ---
:1940 Author Organization [facility] [place] [address] Care Team Providers Name Role Phone Giorgio Cardona MD Primary Care Provider Encounter Details Date Type Department Care Team Description 12/20/2010 Office Visit Endocrinology at [facility] Oriana Taveras, [facility] [place] [address] [facility] [phone] ENDOCRINOLOGY DE PT. [place], [place] [address] (Wo rk) Social History Tobacco Use Types Packs/Day Years Used Date Smoking Tobacco: Never Assessed Sex Assigned at Date Recorded Not on file documented as of this encounter Plan of Treatment Upcoming Encounters Date Type Specialty Care Team Description 10/11/2022 Office Visit Dermatology Virgilio Mckeon MD [facility] DR CHRISTIANO HENSON-DERMAT OLOGY [place], [place] [address] (Wo rk) 10/16/2022 Office Visit Otolaryngology Frank Buchanan MD [facility] OTOLARYNGOLOGMireille Smith EPT. [place], [place] [address] (Wo rk) 11/29/2022 Appointment Hematology and Oncology 11/29/2022 Office Visit Radiation Oncology Emerald Leyva, [facility] ER RADIATION ONCCESAR GY [place] [id number] (Wo rk) documented as of this encounter Procedures Procedure Name Priority Date/Time Associated Diagnosis Comme nts TSH EMA 12/20/2010 11:46 AM Results for this EST procedure are i n the results section . T4, FREE EMA 12/20/2010 11:46 AM Results for this EST procedure are i n the results section . documented in this encounter Results T4, FREE (12/20/2010 11:46 AM EST) athologist Signature Free T4 1.04 0.90 - 1.60 CERNER ng/dL MILLENNIUM Specimen Anatomical Collection Method Collection Time Receive d Time (Source) Location / / Volume Laterality Blood specimen 12/20/2010 11:46 1 (specimen) AM EST 11:56 AM EST Oriana Jeff MD CHEMISTRY ORDERABLES Performing Organization Address City/State/[place] [address] CERNER MILLENNIUM TSH (12/20/2010 11:46 AM EST) athologist Signature TSH 1.09 0.27 - 4.20 CERNER mcIU/mL MILLENNIUM Comment: [place] Cord Blood Reference Range: ??0. 35 23.00 uIU/mL Specimen Anatomical Collection Method Collection Time Receive d Time (Source) Location / / Volume Laterality Blood specimen 12/20/2010 11:46 1 (specimen) AM EST 11:56 AM EST Oriana Jeff MD CHEMISTRY ORDERABLES Performing Organization Address City/State/[place] [address] [facility] documented in this encounter Visit Diagnoses Not on filedocumented in this encounter Care Teams Biological Engineer Relationship Specialty Start Date End Date Giorgio Cardona MD PCP - General 10/04/10 04/10/[address] [facility] [address] [place] [address] (work) documented as of this encounter
--- OUTSIDE RECORDS SUMMARY | 2022-10-09 16:21 | XMS_ITS | Encounter Summary ---
:1940 Author Organization [facility] [place] [address] Care Team Providers Name Role Phone Giorgio Cardona MD Primary Care Provider Reason for Visit Reason Onset Date Comments Dental Injury 03/08/2011 Encounter Details Date Type Department Care Team Description 03/08/2011 Telephone General Surgery at [facility] Antoinette Sig[place] [address] Social History Tobacco Use Types Packs/Day Years Used Date Smoking Tobacco: Never Alcohol Use Standard Drinks/Week Comments No 0 (1 standard drink = 0.6 oz pure alcoho l) Sex Assigned at Date Recorded Not on file documented as of this encounter Miscellaneous Notes Telephone Encounter - Antoinette Sigala RN - 03/08/2011 10:47 AM EDT Mr. Em left a message about having a question on a tooth He said it needs to have some work done and wonders if he should have it done before or after surgery and wonders if it will impact his surgery. I have tried to call him three times and reach only his voicemail. I have left my name and number for him to call me back. documented in this encounter Plan of Treatment Upcoming Encounters Date Type Specialty Care Team Description 10/11/2022 Office Visit Dermatology Virgilio Mckeon MD [facility] DR [address]-DERMAT OLOGY [place], [place] [address] (Wo rk) 10/16/2022 Office Visit Otolaryngology Frank Buchanan MD [facility] OTOLARYNGOLOGY Sarah EPT. [place], [place] [address] (Wo rk) 11/29/2022 Appointment Hematology and Oncology 11/29/2022 Office Visit Radiation Oncology Emerald Leyva APRN [facility] RADIATION ONCOLO GY [place], [place] [address] (Wo rk) documented as of this encounter Visit Diagnoses Not on filedocumented in this encounter Care Teams Memory Care Program Resident Relationship Specialty Start Date End Date Giorgio Cardona MD PCP - General 10/04/10 04/10/17 [facility] GENERAL [place] [address] documented as of this encounter
--- OUTSIDE RECORDS SUMMARY | 2022-10-09 16:21 | XMS_ITS | Encounter Summary ---
:1940 Author Organization [facility] [place] [address] Care Team Providers Name Role Phone Giorgio Cardona MD Primary Care Provider Reason for Referral Surgical (Routine) - Closed Specialty Diagnoses / Procedures Referred By Contact Refer red To Contact Anesthesiology Diagnoses DJD (degenerative joint disease) of knee Adam Quezada MD Ip Anesthesiology [facility] D [facility] [place] [address] [place] [address] Referral ID Status Reason Start Date Expiration Date Visits V isits Requested Authorized [id number] Closed Consult Only 03/20/2011 09/16/2011 1 1 Encounter Details Date Type Department Care Team Description 03/20/2011 Orders Only Orthopaedics at [facility] Adam Quezada DJD (degenerative [facility] joint disease) of [facility] knee (Primary Dx) [place] [phone] ORTHOPAEDIC SURGERY [place], [place] [address] Social History Tobacco Use Types [...] Virgilio Mckeon MD [facility] ER DR CHRISTIANO HENSON-DERMAT OLOGY [place], [place] [address] (Wo rk) 10/16/2022 Office Visit Otolaryngology Frank Buchanan MD [facility] OTOLARYNGOLOGY D EPT. [place], [place] [address] (Wo rk) 11/29/2022 Appointment Hematology and Oncology 11/29/2022 Office Visit Radiation Oncology Emerald Leyva APRN [facility] RADIATION ONCOLO GY [place], [place] [address] (Wo rk) Scheduled Referrals Name Type Priority Associated Order Schedule Diagnoses REFERRAL TO GENERAL Outpatient Referral Routine DJD (degenerat acacia Ordered: ANESTHESIOLOGY joint disease) of 03/20/20 11 knee documented as of this encounter Procedures Procedure Name Priority Date/Time Associated Diagnosis Comme nts TOTAL KNEE ARTHROPLASTY Routine 03/20/2011 9:18 AM DJD (degene rative EDT joint disease) of knee documented in this encounter Results Echo pharm stress test (DSE) (03/28/2011 10:31 AM EDT) athologist Signature EF 60 HEARTLAB SYSTEM Anatomical Region Laterality Modality Other Specimen (Source) Anatomical Location Collection Method / Collectio n Time Received Time / Laterality Volume 05/12/2011 Narrative 05/12/2011 10:04 AM EDT Procedure: ? Stress Echocardiogram ? Patient: ? RACQUEL Rodriguez ?(Age): 1940(70) Med Rec#: ?[id number] ?Sex: ?M ? Site Loc: ?[facility] ?Ht / Wt: ??170(cm)/68(kg) Pt. Loc: ? Echo Lab ?BSA: ?1.79 Study Date: ?03/28/2011 ?Pt. Type: Outpatient Tape: ? Referring: Adam Quezada Referring: ADAM QUEZADA MD, M Fire Boss: Unique Pinedo RCS Interpreting Fellow: Marisela Herrera Interpreting Fellow: Ramona Carlos Nurse: Marly Sheffield Diagnosis:CPT Code(s): ??Stress Echo (93 350), ??Color Doppler (30775), Doppler LTD (55710), ??ECG Interpretatio n (13552), Indication(s): ??Pre-op cardiovascular e valuation Medication(s): ?? [...] ?Normal ?Normal ? Mid-Inferoseptal ?Normal ?Normal ? [place]-Septal ? Normal ?Normal ? [place]-Anterior ? Normal ?Normal ? [place]-Lateral ?Normal ?Normal ? [place]-Inferior ? Normal ?Normal ? [place]-Tip ?Normal ?Normal ? Chambers ?Value ?Units (Range) [...] 05/12/2011 10 :04:18 Images reviewed and interpretation margarita hager [facility] Cardiac Ultrasound Laboratory Procedure Note 05/12/2011 Procedure: Stress Echocardiogram Patient: RACQUELVERO BLANCAS(Age): 1940(70) Med Rec#: [id number] Sex: M Site Loc: [facility] Ht / Wt: 170(cm)/68(kg) Pt. Loc: Echo Lab BSA: 1.79 Study Date: 03/28/2011 Pt. Type: Outpati ent Tape: Referring: Adam Quezada Referring: ADAM QUEZADA MD, M Fire Boss: Unique Pinedo RCS Interpreting Fellow: Marisela Herrera Interpreting Fellow: Ramona Carlos Nurse: Marly Sheffield Diagnosis:CPT Code(s): Stress Echo (9335 0), Color Doppler (71198), Doppler LTD (59322), ECG Interpretation (34348), Indication(s): Pre-op cardiovascular ganesh luation Medication(s): Rhythm: [...] jessa. The patient is taking a diuretic. [facility] Other echo and stress findings as noted [...] tachycardia. The patient's oxygen saturation was 99% [facility] A 20 gauge heplock was placed. The [...] Normal Mid-Inferior Normal Normal Mid-Inferoseptal Normal Normal [place]-Septal Normal Normal [place]-Anterior Normal Normal [place]-Lateral Normal Normal [place]-Inferior Normal Normal [place]-Tip Normal Normal Chambers Value Units (Range) LV [...] 10:04:18 Images reviewed and interpretation verif ied [facility] Cardiac Ultrasound Laboratory Adam Quezada MD ECHO ORDERABLES documented in this encounter Visit Diagnoses Diagnosis DJD (degenerative joint disease) of knee - Primary Osteoarthrosis, unspecified whether gene ralized or localized, lower leg DJD (degenerative joint disease) of knee Osteoarthrosis, unspecified whether gene ralized or localized, lower leg documented in this encounter Care Teams Adobe Cq Developer Relationship Specialty Start Date End Date Giorgio Cardona MD PCP - General 10/04/10 04/10/17 [facility] GENERAL [place] [address] documented as of this encounter
--- OUTSIDE RECORDS SUMMARY | 2022-10-09 16:24 | XMS_ITS | Encounter Summary ---
:1940 Author Organization [facility] Address [address] [place] [address] Care Team Providers Name Role Phone Dexter Pereira MD Primary Care Provider Encounter Details Date Type Department Care Team Description 06/09/2020 Lab Requisition [facility] Outr Resulting Lab, Pathology & Laboratory Provider [facility] [address] [place] [address] Social History Tobacco Use Types Packs/Day Years Used Date Smoking Tobacco: Never Assessed Sex Assigned at Date Recorded Not on file documented as of this encounter Plan of Treatment Not on filedocumented as of this encounter Procedures Procedure Name Priority Date/Time Associated Comments Diagnosis PSA TOTAL, Routine 06/08/2020 10:15 Results for this DIAGNOSTIC EDT procedure are i n the results section. documented in this encounter Results PSA TOTAL, DIAGNOSTIC (06/08/2020 10:15 EDT) P athologist Signature PSA 0.3 0.0 - 6.5 06/09/2020 [facility] ng/mL 17:35 EDT CENTER LAB[facility] SERVICES Specimen Anatomical Collection Method Collection Time Receive d Time (Source) Location / / Volume Laterality Blood VENOUS BLOOD / 06/08/2020 10:15 0 Unknown EDT 15:56 EDT Narrative [facility]ORY SERVICES - 06/09/2020 17:35 EDT NOTE: Serum PSA concentration should not be in terpreted as absolute evidence for the presence or absence of malignant disease. Assayed on Siemens ADVIA Centaur XPT usi ng chemiluminescent technology.??Values obtained by using different assay methods cannot be used interchangeably. Provider Outr Resulting Lab CHEMISTRY & BLOOD GAS EDIE SCHMITZ Performing Organization Address City/State/ZIP Code Phon e Number [facility] [address] [place] [address] SERVICES documented in this encounter Visit Diagnoses Not on filedocumented in this encounter Care Teams Leveler Helper Relationship Specialty Start Date End Date Dexter Pereira MD PCP - General 09/20/15 [address] [place], [place] [phone] documented as of this encounter
--- OUTSIDE RECORDS SUMMARY | 2022-10-09 16:24 | XMS_ITS | Encounter Summary ---
:1940 Author Organization [facility] Address [address] [place] [address] Care Team Providers Name Role Phone Dexter Pereira MD Primary Care Provider Encounter Details Date Type Department Care Team Description 10/09/2022 Lab Requisition [facility] Outr Resulting Lab, Pathology & Laboratory Provider [facility] [address] [place], [place] [address] Social History Tobacco Use Types Packs/Day Years Used Date Smoking Tobacco: Never Assessed Sex Assigned at Date Recorded Not on file documented as of this encounter Plan of Treatment Scheduled Orders Name Type Priority Associated Diagnoses Order S chedule PTH INTACT Lab Routine Ordered: 2021 documented as of this encounter Visit Diagnoses Not on filedocumented in this encounter Care Teams Hip Hop Dance Instructor Relationship Specialty Start Date End Date Dexter Pereira MD PCP - General 09/20/15 [address] [place] [address] documented as of this encounter
--- OUTSIDE RECORDS SUMMARY | 2022-10-09 16:24 | XMS_ITS | Encounter Summary ---
:1940 Author Organization [facility] Address [address] [place] [address] Care Team Providers Name Role Phone Unavailable Primary Care Provider Unavailable Encounter Details Date Type Department Care Team Description 04/18/2004 Results Only [facility] - Dexter Vera MD conversion [address] [place] [address] [place], [place] [address] [phone] Social History Tobacco Use Types Packs/Day Years Used Date Smoking Tobacco: Never Assessed Sex Assigned at Date Recorded Not on file documented as of this encounter Plan of Treatment Not on filedocumented as of this encounter Procedures Procedure Name Priority Date/Time Associated Diagnosis Comme nts CYTOPATHOLOGY Routine 04/18/2004 0:00 EDT Results for this procedure are i n the results section . documented in this encounter Results CYTOPATHOLOGY (04/18/2004 0:00 EDT) Component Value Ref Test Analysis Performed At [facility] Method Time Signature Pathology CYTOPATHOLOGY REPORT BRAULIO Report: [facility] Reports generated via electronic interface contain original data; however they are lacking the format of the original report. Caution should be taken when reading/interpreting unformatte d reports. Name: ? KATLIN CLEMENT ? Accession #: ? [id number] : ? 1940 (Age: 63) ??M ?Collect Date: ? 04/18/2004 Location: ? [facility] ? Receive Date: ? 04/18/2004 Provider: ? DEXTER PEREIRA MD Copy to: ? CYTOLOGIC DIAGNOSIS: ? Sputum, cytologic evaluation: 1. ?Satisfactory for evaluation. 2. ?No malignant cells identified. Document reviewed and electronically signed by: ? Judy Sandy MD Report Date: ??04/20/2004 07:48 By the signature above, the attending physician certifies th at he/she has personally conducted a gross and/or microscopic examin ation of the described specimens and rendered or confirmed the above diagnosis. Specimen Type: ? Sputum Clinical History: ? Cough; clinical diagnosis code: 786.2. ? Gross Description: ? 1 tube of cytolyt containing 40cc' s of m ucoid fluid were received and processed by selective cellular enhancement technique. ? End of Report Specimen (Source) Anatomical Collection Method Collection Time Re ceived Time Location / / Volume Laterality 04/18/2004 04/18/2004 16:0 4 EDT Dexter Pereira MD PATHOLOGY ORDERABLES Performing Organization Address City/State/ZIP Code Phon e Number [facility] [address] [place] [address] SERVICES [facility] [address] [place] [address] documented in this encounter Visit Diagnoses Not on filedocumented in this encounter
--- OUTSIDE RECORDS SUMMARY | 2022-10-09 16:24 | XMS_ITS | Encounter Summary ---
:1940 Author Organization [facility] Address [address] [place] [address] Care Team Providers Name Role Phone Unavailable Primary Care Provider Unavailable Encounter Details Date Type Department Care Team Description 09/19/2006 Results Only [facility] - Sophie francois, Jason Granados MD conversion [address] [place] [phone] (Wo rk) Social History Tobacco Use Types Packs/Day Years Used Date Smoking Tobacco: Never Assessed Sex Assigned at Date Recorded Not on file documented as of this encounter Plan of Treatment Not on filedocumented as of this encounter Procedures Procedure Name Priority Date/Time Associated Diagnosis Comme nts SURGICAL PATHOLOGY Routine 09/19/2006 0:00 EST Re sults for this procedure are i n the results section. documented in this encounter Results SURGICAL PATHOLOGY (09/19/2006 0:00 EST) Component Value Ref Test Analysis Performed At [facility] Range Method Time Signature Pathology SURGICAL PATHOLOGY REPORT SURINDER JARA Report: Reports generated via electronic interface contain yasmani chisholm data; DAVID BOWDEN however they are lacking the format of the original report. Caution should be taken when reading/interpreting unformatte d reports. Name: ? NETTA CLEMENT ? Accession #: ? [id number] ? : ? 1940 (Age: 66) ??M ? Collect Date: ? 09/19/2006 ? Location: ? [facility] ? Receive Date: ? 09/20/2006 ? Provider: JASON KIRAN MD Copy to: ARABELLA MERCADO MD ? Final Pathologic Diagnosis: A. ?Prostate, right apex, needle core biopsies: 1. ?No specific pathologic features. B. ?Prostate, right mid, needle core biopsies: 1. ?No specific pathologic features. C. ?Prostate, right base, needle core biopsies: 1. ?No specific pathologic features. D. ?Prostate, left apex, needle core biopsies: 1. ?Adenocarcinoma of the prostate: See comment . ? - Broussard pattern 3+3=6. - 40% of prostatic tissue involved by tumor. - One of one core positive for tumor. ? E. ?? Prostate, left mid, needle core biopsies: ?1. ?? Adenocarcinoma of the prostate: ?- Sofy pattern 3+4=7. ?- 50% of prostatic tissue involved b y tumor. ?- One of one core positive for tumor . ? F. ??Prostate, left base, needle core biopsies: ?1. ??Adenocarcinoma of the prostate: ?- Sofy pattern 4+3=7. ?- 5% of tumor involved by tumor. ?- One of two cores positive for tumo r. Comment: ? This case was reviewe d at intradepartmental consultation conference. Dr. Rainey. Document reviewed and electronically signed by: Sunny Rainey MD Report ??Date: 09/21/2006 16:35 By the signature above, the attending physician certifies th at he/she has personally conducted a gross and/or microscopic examin ation of the described specimens and rendered or confirmed the above diagnosis. Specimen(s) Received: ? Ultrasound guided core biopsy thru prostate A. ?Rt apex (#1) B. ? Rt mid (#2) C. ? Rt base (#3) D. ? Lt apex (#4) E. ? Lt mid (#5) F. ? Lt base (#6) Clinical History: ? Elevated PSA, r/o CAP, PSA 5.6, free 13% Gross Description: ? Received in formalin labelled Racquel and #1 ??Rt apex is a 1.7 cm in length by 0.1 cm in diameter firm white linear biopsy which is submitted intact as (A). Received in formalin labelled Racquel and #2 ??Rt mi d is a 1.7 cm in length by 0.1 cm in diameter firm, white, linear biopsy whic h is submitted intact as (B). Received in formalin labelled Racqule and #3 ??R t base are two white, linear, firm pieces of tissue which measure 1.2 cm and 0.3 cm in length with each measuring 0.1 cm in diameter, which are submitted intac t as (C). Received in formalin labelled Racquel and #4 ??L t apex is a 1.5 cm in length by 0.1 cm in diameter firm, white, linear biopsy whic h is submitted intact as (D). Received in formalin labelled Racquel and #5 ??lt mi d is a 2.0 cm in length by 0.1 cm in diameter firm, white , linear biopsy. ??Submitted intact as (E). Received in formalin labelled Racquel and #6 ??Lt ba se are two white linear firm pieces of tissue which measure 1.0 cm and 0.7 cm in length by 0.1 cm in diameter, each. ??Submitted intact as (F). (Danyell Hollingsworth) /mpl End of Report Specimen (Source) Anatomical Collection Method Collection Time Re ceived Time Location / / Volume Laterality 09/19/2006 09/20/2006 10:1 5 EST Jason Kiran MD PATHOLOGY ORDERABLES Performing Organization Address City/State/ZIP Code Phon e Number [facility] [address] [place] [address] SERVICES [facility] [address] [place] [address] documented in this encounter Visit Diagnoses Not on filedocumented in this encounter
--- OUTSIDE RECORDS SUMMARY | 2022-10-09 16:24 | XMS_ITS | Encounter Summary ---
:1940 Author Organization [facility] Address [address] [place] [address] Care Team Providers Name Role Phone Dexter Pereira MD Primary Care Provider Encounter Details Date Type Department Care Team Description 10/06/2020 Lab Requisition [facility] Outr Resulting Lab, Pathology & Laboratory Provider [facility] [address] [place] [address] Social History Tobacco Use Types Packs/Day Years Used Date Smoking Tobacco: Never Assessed Sex Assigned at Date Recorded Not on file documented as of this encounter Plan of Treatment Not on filedocumented as of this encounter Procedures Procedure Name Priority Date/Time Associated Comments Diagnosis PSA TOTAL, After X-Ray 09/09/2020 16:43 Results for this DIAGNOSTIC EDT procedure are i n the results section. documented in this encounter Results PSA TOTAL, DIAGNOSTIC (09/09/2020 16:43 EDT) P athologist Signature PSA 0.2 0.0 - 6.5 11/03/2020 [facility] ng/mL 13:02 [facility] Specimen Anatomical Collection Method Collection Time Receive d Time (Source) Location / / Volume Laterality Blood VENOUS BLOOD / 09/09/2020 16:43 0 Unknown EDT 11:42 EST Narrative [facility]ORY SERVICES - 11/03/2020 13:02 EST NOTE: Serum PSA concentration should not be in terpreted as absolute evidence for the presence or absence of malignant disease. Assayed on Siemens ADVIA Centaur XPT usi ng chemiluminescent technology.??Values obtained by using different assay methods cannot be used interchangeably. Provider Outr Resulting Lab CHEMISTRY & BLOOD GAS EDIE SCHMITZ Performing Organization Address City/State/ZIP Code Phon e Number [facility] [address] [place] [address] SERVICES documented in this encounter Visit Diagnoses Not on filedocumented in this encounter Care Teams Professional Poker Player Relationship Specialty Start Date End Date Dexter Pereira MD PCP - General 09/20/15 [address] [place], [place] [phone] documented as of this encounter
--- OUTSIDE RECORDS SUMMARY | 2022-10-09 16:24 | XMS_ITS | Clinical Summary ---
:1940 Author Organization [facility] Address [address] [place] [address] Care Team Providers Name Role Phone Dexter Pereira MD Primary Care Provider Encounters Date Type Specialty Care Team Description 10/09/2022 Lab Requisition Clinical Laboratory Outr Resulting Lab , Provider from Last 3 Months Social History Tobacco Use Types Packs/Day Years Used Date Smoking Tobacco: Never Assessed Sex Assigned at Date Recorded Not on file Plan of Treatment Health Maintenance Due Date Last Done Comments COVID-19 Vaccine (#1) 1940 Fall Risk Screening 2003 Care Teams Fiberglass Boat Parts Finisher Relationship Specialty Start Date End Date Dexter Pereira MD PCP - General 09/20/15 [address] [place], [place] [phone]
--- OUTSIDE RECORDS SUMMARY | 2022-10-09 16:24 | XMS_ITS | Encounter Summary ---
:1940 Author Organization [facility] Address [address] [place] [address] Care Team Providers Name Role Phone Unavailable Primary Care Provider Unavailable Encounter Details Date Type Department Care Team Description 01/26/2006 Results Only [facility] - Sophie Thakur, Chr istopher, conversion DO [address] [id number] [facility] [address] [place], [place] [id number] [place] [id number] (Wo rk) Social History Tobacco Use Types Packs/Day Years Used Date Smoking Tobacco: Never Assessed Sex Assigned at Date Recorded Not on file documented as of this encounter Plan of Treatment Not on filedocumented as of this encounter Procedures Procedure Name Priority Date/Time Associated Diagnosis Comme [facility] SURGICAL PATHOLOGY Routine 01/26/2006 0:00 EST Re sults for this procedure are i n the results section. documented in this encounter Results SURGICAL PATHOLOGY (01/26/2006 0:00 EST) Component Value Ref Test Analysis Performed At [facility] Method Time Signature Pathology SURGICAL PATHOLOGY REPORT SURINDER JARA Report: Reports generated via electronic interface contain marka l data; DAVID BOWDEN however they are lacking the format of the original report. Caution should be taken when reading/interpreting unformatte d reports. Name: ? NETTA CLEMENT ? Accession #: ? [id number] ? : ? 1940 (Age: 65) ??M ? Collect Date: ? 01/26/2006 ? Location: ? [facility] ? Receive Date: ? 01/26/2006 ? Provider: VADIM THAKUR DO Copy to: GINNY SEGOVIA MD ? Final Pathologic Diagnosis: ? Colon, 40 cm, biopsy: - Tubular adenoma (1 piece) with no high grade dysplasia. Document reviewed and electronically signed by: James Medina MD Report ??Date: 01/30/2006 08:53 By the signature above, the attending physician certifies th at he/she has personally conducted a gross and/or microscopic examin ation of the described specimens and rendered or confirmed the above diagnosis. Specimen(s) Received: ? Bx 40 cm Clinical History: ? Screening for colon Ca Gross Description: ? Received in Hollande' s fixative labelled Racquel and bx 40 cm is a avendaño-pink, 0.2 x 0.2 x 0.2 cm, soft tissu e fragment. ??The specimen is entirely submitted in one cassette. ??(Junie Stockton/laura End of Report Specimen (Source) Anatomical Collection Method Collection Time Re ceived Time Location / / Volume Laterality 01/26/2006 01/26/2006 15:3 1 EST Vadim Thakur DO PATHOLOGY ORDERABLES Performing Organization Address City/State/ZIP Code Phon e Number [facility] [address] [place] [address] SERVICES [facility] [address] [place] [address] documented in this encounter Visit Diagnoses Not on filedocumented in this encounter
[2022-10-09 23:08] LABS: Parathyroid Hormone,Intact 53 pg/mL (19-88)
== END 2022-10-09 16:05 | disposition home or self-care (01) ==
LOC: NCHCN 16:04
PROVIDERS: PCP Internal Medicine; Visit Provider Family Medicine
DX: E03.2 Hypothyroidism due to medicaments and other exogenous substances (principal); I10 Essential (primary) hypertension; J44.9 Chronic obstructive pulmonary disease, unspecified
CPT/HCPCS: 80048; 82306; 83970

== ENCOUNTER 2023-02-12 16:06 | Outpatient (REF) | payer MEDICARE, SELFPAY ==
[2023-02-12 15:53] LABS: Abs Immature Grans 0.01 10^3/uL (0.0-0.06); Absolute Basophil Count 0.03 10^3/uL (0.0-0.2); Absolute Eosinophil Count 0.06 10^3/uL (0.0-0.7); Absolute Lymphocyte Count 0.87 10^3/uL (1.2-3.4); Absolute Monocyte Count 0.58 10^3/uL (0.1-0.8); Absolute Neutrophil Count 2.62 10^3/uL (1.2-6.7); Basophils % 0.7; Eosinophils % 1.4; HCT 42.4 % (40.0-50.0); HGB 14.2 g/dL (13.5-17.5); Immature Grans % 0.2; Lymphocytes % 20.9; MCH 32.9 pg (27.0-33.0); MCHC 33.5 % (32.0-36.0); MCV 98 fL (80-95); MPV 12.6 fL (8.0-11.0); Monocytes % 13.9; Neutrophils % 62.9; Platelet Count 164 10^3/uL (130-400); RBC 4.31 10^6/uL (4.36-5.78); RDW 13.3 % (11.8-14.1); RDW-SD 48.7 fL; WBC 4.17 10^3/uL (4.4-10.8)
[2023-02-12 15:59] LABS: ESR 12 mm/hr (0-20)
[2023-02-12 16:19] LABS: ALT 16 U/L (16-63); AST 23 U/L (15-37); Albumin 3.7 g/dL (3.4-5.0); Alkaline Phosphatase 70 U/L (46-116); Anion Gap 6.9 mmol/L (3-11); BUN 18 mg/dL (7-18); Bilirubin, Total 0.6 mg/dL (0.2-1.0); CO2 31.1 mmol/L (21.0-32.0); CREATININE 1.4 mg/dL (0.70-1.30); Calcium 8.6 mg/dL (8.5-10.1); Chloride 103 mmol/L (98-107); Estimated GFR 49.56 (mL/min/1.73m2); Glucose 92 mg/dL (74-106); Potassium 4.6 mmol/L (3.5-5.1); Sodium 141 mmol/L (136-145); Total Protein 6.6 g/dL (6.4-8.2)
== END 2023-02-12 16:07 | disposition home or self-care (01) ==
LOC: NCHCN 16:06
PROVIDERS: PCP Internal Medicine; Visit Provider Family Medicine
DX: I10 Essential (primary) hypertension (principal); D35.00 Benign neoplasm of unspecified adrenal gland; J44.9 Chronic obstructive pulmonary disease, unspecified; E04.2 Nontoxic multinodular goiter
CPT/HCPCS: 80053; 85652; 81003; 85025

== ENCOUNTER 2023-04-02 14:14 | Outpatient (REF) | payer MEDICARE, SELFPAY ==
[2023-04-02 15:39] LABS: Abs Immature Grans 0.01 10^3/uL (0.0-0.06); Absolute Basophil Count 0.03 10^3/uL (0.0-0.2); Absolute Eosinophil Count 0.13 10^3/uL (0.0-0.7); Absolute Lymphocyte Count 0.99 10^3/uL (1.2-3.4); Absolute Monocyte Count 0.67 10^3/uL (0.1-0.8); Absolute Neutrophil Count 2.52 10^3/uL (1.2-6.7); Basophils % 0.7; HCT 43.1 % (40.0-50.0); HGB 14.3 g/dL (13.5-17.5); Immature Grans % 0.2; Lymphocytes % 22.8; MCH 32.9 pg (27.0-33.0); MCHC 33.2 % (32.0-36.0); MCV 99 fL (80-95); MPV 12.5 fL (8.0-11.0); Monocytes % 15.4; Neutrophils % 57.9; Platelet Count 137 10^3/uL (130-400); RBC 4.35 10^6/uL (4.36-5.78); RDW 13.3 % (11.8-14.1); RDW-SD 48.8 fL; WBC 4.35 10^3/uL (4.4-10.8)
[2023-04-02 16:44] LABS: BUN 20 mg/dL (7-18); CREATININE 1.3 mg/dL (0.70-1.30); Chloride 104 mmol/L (98-107); Estimated GFR 54.17 (mL/min/1.73m2); Glucose 103 mg/dL (74-106); Potassium 4.7 mmol/L (3.5-5.1); Sodium 142 mmol/L (136-145); TSH (W/Ref FT4) 4.66 uIU/mL (0.36-3.74)
[2023-04-02 18:26] LABS: FREE T4 1.37 ng/dL (0.76-1.46)
== END 2023-04-02 14:15 | disposition home or self-care (01) ==
LOC: NCHCN 14:14
PROVIDERS: PCP Internal Medicine; Visit Provider Family Medicine
DX: E03.2 Hypothyroidism due to medicaments and other exogenous substances (principal); I10 Essential (primary) hypertension; R10.9 Unspecified abdominal pain
CPT/HCPCS: 80048; 84439; 84443; 85025

== ENCOUNTER 2023-05-25 13:15 | Emergency (ER) | payer MEDICARE, SELFPAY ==
[2023-05-25 13:17] VITALS: BP 151/77; PULSE 67; RESP 16; TEMP 37.3; O2SAT 97
--- NOTE | 2023-05-25 13:30 | DI.RAD_ITS ---
Exam(s) XR LUMBAR SPINE COMPLETE EXAM: XR LUMBAR SPINE COMPLETE CLINICAL HISTORY: left back pain after fall. TECHNIQUE: 2D digital imaging was performed. COMPARISON: No exams were available for comparison FINDINGS: Five views: Age-related osteopenia noted. There is Schmorl's node invagination superior endplate of L4. No true compression fractures. Mild multilevel disc space narrowing. No osseous lesions. Mild degenerativ e facet joint changes. There is no scoliosis. IMPRESSION: Degenerative changes as above. No obvious acute fractures. Schmorl's node invagination in superior endplate of L4 evident. DATA REPOSITORY: RADIATION DOSE DELIVERED:
--- NOTE | 2023-05-25 13:35 | ED.GENADUL_ITS ---
Discharge Plan Disposition Patient Disposition: Home Condition: Good Discharge Details Clinical Impression: Back pain Primary Care Provider: Dexter Pereira ED Provider: Eliel Gonzalze Home Meds and New Rx's Prescriptions: No Action atenolol 25 MG tablet 25 mg PO DAILY levothyroxine 125 MCG tablet 125 mcg PO DAILY omeprazole 20 MG capsule,delayed release(DR/EC) 20 mg BID Patient Comments: no longer taking furosemide 40 MG tablet 0.5 - 1 tab PO DAILY terazosin 2 MG capsule 2 cap PO HS potassium chloride 20 MEQ tablet extended release 0.5 tab PO DAILY polyethylene glycol 3350 17 GM powder in packet 17 gm PO HS doxycycline hyclate 100 MG tablet 100 mg PO BID Qty: 14 0RF Patient Comments: no longer taking pantoprazole 20 mg tablet,delayed release (DR/EC) 20 mg PO DAILY Patient Comments: TAKE ONE TABLET BY MOUTH EVERY DAY Lumigan 0.01 % drops Patient Comments: INSTILL ONE DROP IN EACH EYE AT BEDTIME Discharge Instructions Instructions: Back Pain (ED) Additional Instructions: At this time your x-ray shows no evidence of fracture. Please take Tylenol and heating pads as needed for pain. If you notice any worsening of your symptoms, or any new symptoms such as vomiting, diarrhea, fever, chills, shortness of breath, chest pain, numbness, weakness, or fainting , please return immediately to the emergency department for reevaluation. Please follow up with your primary care provider as soon as possible for reassessment and reevaluation. As always, it was a pleasure participating in your medical care today. Referrals: Dexter Pereira MD [Primary Care Provider] - Medical Decision Making 82-year-old male with a past medical history of reflux, hypothyroidism, prostate cancer, COPD, who presents today for evaluation of back pain. About 6 days ago the patient fell, he may have hit his back at that time. He did not strike his head. He did not lose consciousness. He was a ground- level fall. He had been doing very well since then, no confusion that was new, soreness or other abnormalities aside from mild left back achiness. That is continued over the last few days. He is here with his girlfriend to get evaluated. Patient denies any saddle anesthesia, numbness or tingling in the groin, change in sensation when wiping. Patient denies any change in sensation during sexual intercourse, difficulty achieving or maintaining an erection or ejaculation, bowel or bladder incontinence, leakage, or retention. Patient denies any weakness in the lower extremities, atypical falls or imbalance. Exam demonstrates well-appearing male. No midline tenderness. Minimal subjective achiness in the left paraspinal aspect, but no reproducible pain of significance. He denies any urinary complaints. He denies any history of kidney stones. We will get an x-ray to eval for fracture. Monitor closely and reassess. 2:28 PM Patient looks well. On reassessment he continues to show no signs of concerning neurovascular compromise. Abdominal exam is negative for tenderness or distention. Patient is requesting discharge. X-ray negative for acute process. Patient will be discharged. I have extensively reviewed the treatment plan and discharge instructions with the patient and their family. I have addressed all patient concerns at this time. The patient and family was made aware of what symptoms to monitor for that would warrant a return to the emergency department. Discussed the plan with the patient and family, they demonstrate verbal understanding and agreement with our assessment and plan at this time. The documentation in this chart was dictated using [employer] dictation software. Please excuse any dictation errors. FINDINGS: Five views: Age-related osteopenia noted. There is Schmorl's node invagination superior endplate of L4. No true compression fractures. Mild multilevel disc space narrowing. No osseous lesions. Mild degenerative facet joint changes. There is no scoliosis. IMPRESSION: Degenerative changes as above. No obvious acute fractures. Schmorl's node invagination in superior endplate of L4 evident. HPI General Date/Time Provider Initiated Documentation: 05/25/23 13:33 . HPI Narrative: 82-year-old male with a past medical history of reflux, hypothyroidism, prostate cancer, COPD, who presents today for evaluation of back pain. About 6 days ago the patient fell, he may have hit his back at that time. He did not strike his head. He did not lose consciousness. He was a ground-[place] fall. He had been doing very well since then, no confusion that was new, soreness or other abnormalities aside from mild left back achiness. That is continued over the last few days. He is here with his girlfriend to get evaluated. Patient denies any saddle anesthesia, numbness or tingling in the groin, change in sensation when wiping. Patient denies any change in sensation during sexual intercourse, difficulty achieving or maintaining an erection or ejaculation, bowel or bladder incontinence, leakage, or retention. Patient denies any weakness in the lower extremities, atypical falls or imbalance. Related Data Home Medications Medication Instructions Recorded Confirmed atenolol 25 mg tablet 25 mg PO DAILY 09/22/13 05/25/23 levothyroxine 125 mcg tablet 125 mcg PO DAILY 09/22/13 05/25/23 omeprazole 20 mg capsule,delayed 20 mg BID 09/22/13 07/08/22 release furosemide 40 mg tablet 0.5 - 1 tab PO DAILY 01/06/14 05/25/23 potassium chloride 20 mEq 0.5 tab PO DAILY 01/06/14 05/25/23 tablet,extended release terazosin 2 mg capsule 2 cap PO HS 01/06/14 05/25/23 polyethylene glycol 3350 17 gram 17 gm PO HS 09/05/14 05/25/23 oral powder packet doxycycline hyclate 100 mg tablet 100 mg PO BID ##14 11/05/17 07/08/22 bimatoprost 0.01 % eye drops drp 05/25/23 05/25/23 (Lumigan) pantoprazole 20 mg tablet,delayed 20 mg PO DAILY 05/25/23 05/25/23 release Previous Rx's Medication Instructions Recorded doxycycline hyclate 100 mg tablet 100 mg PO BID ##14 11/05/17 Allergies Allergy/AdvReac Type Severity Reaction Status Date / Time codeine AdvReac Unverified 05/25/23 13:23 General Stated Complaint: Nk/Back Pain JOVANA: 4 Review of Systems All systems reviewed & are unremarkable except as noted in HPI and below PFSH All Active Problems (Updated 05/25/23 @ 13:53 by Eliel Gonzalez DO) Back pain (Acute) Social History Smoking/Tobacco Use Status: Never Smoking risk assessment performed?: Yes Alcohol Intake: never Drug use: Never Substance use type: does not use Housing: house Do you feel safe at home: Yes Do you feel safe in your relationship?: Yes Exam Narrative Exam Narrative: 1.Const: Well-nourished, Well-developed, appearing stated age 2.Eyes: PERRL, no conjunctival injection, and symmetrical lids. 3.ENT: Atraumatic external nose and ears. Moist MM. Neck: Symmetric, trachea midline, No thyromegaly. 4.CVS: +S1/S2, No murmurs or gallops. Peripheral pulses 2+ and equal in all extremities. Brisk capillary refill in all extremities. 5.RESP: Unlabored respiratory effort. Clear to auscultation bilaterally. No wheezes rales or rhonchi 6.GI: Soft, Nontender/Nondistended, No hepatosplenomegaly. No guarding or rebound. 7.MSK: Normocephalic/Atraumatic, Extremities w/o deformity or ttp No cyanosis or clubbing, Normal movement of all extremities No midline tenderness to palpation over the CTLS spine. Normal ROM in flexion, extension, side bend, and rotation. Patient has +5 out of 5 strength in the lower extremities in dorsiflexion and plantarflexion, knee flexion and extension, hip flexion and extension. Normal strength for dorsiflexion and plantar flexion of the great toe bilaterally. There is +2 over 2 dorsalis pedis pulses bilaterally. There is normal sensation to the skin with light touch at the foot, knee, and hip. Normal saddle sensation. Good sensation over the deep sural nerve area bilaterally. Rectal exam demonstrates good rectal tone with excellent sierra-rectal sensation. Reflexes are +2 over 4 in the patellar reflex bilaterally. +5 out of 5 strength in the medial, ulnar, radial nerve distribution bilaterally in the hands as well as intact light touch sensation to these dermatomes on the hands 8.Skin: Warm, Dry. No rashes or lesions. 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 Sensation grossly intact, no focal neurologic deficits. 10.Psych: (AAO) x3. Appropriate mood and affect Course Vital Signs Vital signs: Vital Signs Temperature 37.3 C 05/25/23 13:17 Pulse 67 05/25/23 13:17 Respiratory Rate 16 05/25/23 13:17 Blood Pressure 151/77 H 05/25/23 13:17 Pulse Oximetry 97 05/25/23 13:17 Temperature 37.3 C 05/25/23 13:17 Temperature Source Skin 05/25/23 13:17 Pulse 67 05/25/23 13:17 Respiratory Rate 16 05/25/23 13:17 Blood Pressure 151/77 H 05/25/23 13:17 Blood Pressure Position Sitting 05/25/23 13:17 Pulse Oximetry 97 05/25/23 13:17 Oxygen Delivery Method Room Air 05/25/23 13:17 Oxygen Flow Rate 0 05/25/23 13:17 Pain Level 10 05/25/23 13:17
[2023-05-25 14:36] LABS: Bilirubin Negative (Negative); Blood Negative (Negative); Clarity Clear (Clear); Glucose Negative (Negative); Ketones Negative (Negative); Leukocyte Esterase Negative (Negative); Nitrite Negative (Negative); Urobilinogen 0.2 mg/dL (Up to 0.2)
== END 2023-05-25 14:37 | disposition home or self-care (01) ==
PROVIDERS: Emergency Provider Student in an Organized Health Care Education/Training Program; PCP Internal Medicine
DX: M54.50 Low back pain, unspecified (principal); R10.30 Lower abdominal pain, unspecified; M51.46 Schmorl's nodes, lumbar region; K21.9 Gastro-esophageal reflux disease without esophagitis; E03.9 Hypothyroidism, unspecified; J44.9 Chronic obstructive pulmonary disease, unspecified; Z85.46 Personal history of malignant neoplasm of prostate
CPT/HCPCS: 99283; 72110; 81003

== ENCOUNTER 2024-03-22 18:30 | Emergency (ER) | payer MEDICARE, SELFPAY ==
--- NOTE | 2024-03-22 18:30 | DI.CT_ITS ---
Exam(s) CT HEAD CERVICAL SPINE WO EXAM: CT HEAD CERVICAL SPINE WO CLINICAL HISTORY: fall, possibly hit his head, no pain. TECHNIQUE: Imaging Protocol: Axial computed tomography images with coronal and sagittal reformatted images were created and reviewed COMPARISON: No exams were available for comparison FINDINGS: CT Head: Ventricles and Extra axial spaces: Normal in size and morphology for the patient's age. Hemorrhage: None. Cerebral parenchyma: There are areas of decreased attenuation in the white matter consistent with chr onic microvascular ischemic disease. No acute territorial infarct is seen. There is no mass effect. Midline shift: None. Brainstem/Cerebellum: Normal. Calvarium: Normal. Visualized Paranasal sinuses/Mastoids: Clear. Soft Tissues: Unremarkable. CT Cervical Spine: Bones: No acute fracture or subluxation. Age-appropriate degenerative changes are seen in the cervica l spine. Soft Tissues: Unremarkable. Lung Apices: Clear. IMPRESSION: 1. No acute intracranial process. 2. No acute fracture or subluxation in the cervical spine. RADIATION DOSE DELIVERED: 1,220.27mGy.cm Total DLP DATA REPOSITORY: All CT scans at this facility are submitted to the National Radiology Data Registry (NRDR) Dose Index Registry (DIR) with the [employer] (ACR). RADIATION OPTIMIZATION: All CT scans at this facility use at least one of these dose optimization te chniques: automated exposure control; mA and/or kV adjustment per patient size (includes targeted exa ms where dose is matched to clinical indication); or iterative reconstruction.
--- NOTE | 2024-03-22 18:30 | DI.RAD_ITS ---
Exam(s) XR SHOULDER RT COMPLETE 2+V EXAM: XR SHOULDER RT COMPLETE 2+V CLINICAL HISTORY: fall, R shoulder pain. TECHNIQUE: 2D digital imaging was performed of the right shoulder. Three images were obtained. AP, Grashey and Y views were obtained. COMPARISON: CR,RF RF BARIUM SWALLOW from 09/05/2021 FINDINGS: BONES: There is an acute fracture at the distal clavicle. The fracture does not extend into the acro mioclavicular joint which is intact. There is mild displacement of the fracture. No bony destructiv e lesion is seen. The bones are osteopenic. JOINTS: No dislocation present. Mild degenerative changes are seen at the acromioclavicular joint. T he glenohumeral joint is well maintained. SOFT TISSUE: The visualized lungs are clear. IMPRESSION: Mildly displaced distal right clavicular fracture. DATA REPOSITORY: RADIATION DOSE DELIVERED:
[2024-03-22 18:33] VITALS: BP 164/72; PULSE 64; RESP 18; TEMP 36.2; O2SAT 97
--- NOTE | 2024-03-22 18:38 | ED.GENADUL_ITS ---
Discharge Plan Disposition Patient Disposition: Home Condition: Stable Discharge Details Clinical Impression: Fracture of right clavicle Primary Care Provider: Fabiano Celaya ED Provider: Eliel Robin Home Meds and New Rx's Prescriptions: Continued atenolol 25 MG tablet 25 mg PO DAILY levothyroxine 125 MCG tablet 125 mcg PO DAILY furosemide 40 MG tablet 0.5 - 1 tab PO DAILY terazosin 2 MG capsule 2 cap PO HS potassium chloride 20 MEQ tablet extended release 0.5 tab PO DAILY polyethylene glycol 3350 17 GM powder in packet 17 gm PO HS pantoprazole 20 mg tablet,delayed release (DR/EC) 20 mg PO DAILY Patient Comments: TAKE ONE TABLET BY MOUTH EVERY DAY Lumigan 0.01 % drops 1 drp ophthalmic (eye) DAILY Patient Comments: INSTILL ONE DROP IN EACH EYE AT BEDTIME Discharge Instructions Instructions: Clavicle Fracture (ED) Additional Instructions: You were seen in the emergency department for your fall while attempting to help your girlfriend up. You have fractured the distal end of your right clavicle, may need to remain in a sling, ice the area frequently, ice to complete numbness then let rewarm. Take regular doses of Tylenol and ibuprofen for pain as long as it is safe for you to take those medications. It will be more comfortable to sleep in a recliner chair for the first week at least of your injury. Your fracture should heal without issue at a maximum of 8 weeks. Please follow-up [facility] for any complications, please follow-up with your primary care provider for routine x-rays throughout the healing period to ensure routine healing. Please return to the emergency department for any signs of neurovascular compromise like severe increase in pain in the right lower arm, temperature changes with numbness of the right lower arm, further trauma to the area with deformity. Referrals: [facility] [Provider Group] Fabiano Celaya MD [Primary Care Provider] - HPI General Date/Time Provider Initiated Documentation: 03/22/24 18:37 . 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 Patient states he has isolated pain to R shoulder, his partner states he may have hit his head- he states no pain there, denies neck pain. Quality described as mild shoulder pain, does not feel broken, no radiation to visual changes, chest pain, palpitations, numbness/tingling to R arm, patient is L-hand dominant. His partner states he stated he was dizzy for a little while after the fall. Severity is described as mild. Palliating factors include nothing specific attempted. Provoking factors include nothing specific. Patient not anticoagulated. Related Data Home Medications Medication Instructions Recorded Confirmed atenolol 25 mg tablet 25 mg PO DAILY 09/22/13 03/22/24 levothyroxine 125 mcg tablet 125 mcg PO DAILY 09/22/13 03/22/24 furosemide 40 mg tablet 0.5 - 1 tab PO DAILY 01/06/14 03/22/24 potassium chloride 20 mEq 0.5 tab PO DAILY 01/06/14 03/22/24 tablet,extended release terazosin 2 mg capsule 2 cap PO HS 01/06/14 03/22/24 polyethylene glycol 3350 17 gram 17 gm PO HS 09/05/14 03/22/24 oral powder packet bimatoprost 0.01 % eye drops 1 drp ophthalmic (eye) DAILY 05/25/23 03/22/24 (Lilianeigan) pantoprazole 20 mg tablet,delayed 20 mg PO DAILY 05/25/23 03/22/24 release Allergies Allergy/AdvReac Type Severity Reaction Status Date / Time codeine AdvReac Other (See Unverified 03/22/24 18:48 Comment) General Stated Complaint: Orthopedic JOVANA: 3 Review of Systems All systems reviewed & are unremarkable except as noted in HPI and below Exam Narrative Exam Narrative: GENERAL APPEARANCE: Well-nourished, non-toxic, awake and alert, atraumatic, no acute distress. SKIN: Warm, pink, dry, intact, without rashes/lesions/ulcerations. HEAD: Normocephalic, atraumatic- no scalp hematoma, no Butler's sign, no periorbital ecchymosis, normal hair distribution for gender/age. EYES: Pupils PERRLA, EOMs intact without nystagmus, normal conjunctiva, no exudates on lids/lashes. ENT: Nares patent, no circumoral cyanosis, no facial swelling NECK: Supple, trachea midline, painless cervical ROM, no midline vertebral tenderness/crepitus/step-offs. LUNGS/CHEST: Lungs CTA bilaterally, non-labored respirations, normal A/P diameter, symmetrical expansion, no chest wall deformity HEART (CV/PV): Regular rate, R radial pulse 2+, no peripheral edema, no JVD. ABDOMEN: Soft, non-distended, no guarding, no tenderness. MSK: Normal ROM, no swelling/deformity to bilateral UEs or LEs, moving all extremities without weakness, no cyanosis, spine midline without tenderness, normal curvature. R UE: Mild tenderness to the right shoulder diffusely without crepitus, stable humerus, no prominence of the distal clavicle, no skin tenting, no ecchymosis, c s s representative strength 5/5 in right hand, right radial pulse 2+, sensation intact, range of motion intact at the elbow, wrist and shoulder joints. NEURO: Mental Status AAOx4 - alert to person, place, time, events No facial droop, no forehead involvement. Motor: No focal weakness - strength 5/5 in bilateral UEs and LEs, proximal and distal, symmetric. Sensory: sensation intact to light touch globally. Gait normal: patient ambulated without ataxia into ED room. PSYCH: euthymic, cooperative, pleasant, appropriate speech Course Vital Signs Vital signs: Vital Signs Temperature 36.2 C L 03/22/24 18:33 Pulse 64 03/22/24 18:33 Respiratory Rate 18 03/22/24 18:33 Blood Pressure 164/72 H 03/22/24 18:33 Pulse Oximetry 97 03/22/24 18:33 Temperature 36.2 C L 03/22/24 18:33 Temperature Source Skin 03/22/24 18:33 Pulse 64 03/22/24 18:33 Respiratory Rate 18 03/22/24 18:33 Blood Pressure 164/72 H 03/22/24 18:33 Pulse Oximetry 97 03/22/24 18:33 Oxygen Delivery Method Room Air 03/22/24 18:33 Oxygen Flow Rate 0 03/22/24 18:33 Medical Decision Making This dictation utilizes [id number] dictation software and may contain unedited grammatical errors. 83 y/o M presents to ED today with a chief complaint of ground-level fall helping his spouse up at home, R shoulder pain mild, denies headstrike/LOC- partner endorses he stated dizzy after the fall for a brief time. Patient is anticoagulated, L-hand dominant. Patients' medical history: noncontributory. Family and social history: noncontributory. Pertinent exam findings / vital signs include R UE: Mild tenderness to the right shoulder diffusely without crepitus, stable humerus, no prominence of the distal clavicle, no skin tenting, no ecchymosis, c s s representative strength 5/5 in right hand, right radial pulse 2+, sensation intact, range of motion intact at the elbow, wrist and shoulder joints.. Differential / pathologies of concern include R shoulder fracture, shoulder sprain/strain, unlikely ICH/vertebral injury. Diagnostic studies of: -CT Head & C-Spine wo Contrast, XR R Shoulder. - shows no acute pathology Head & C-Spine, XR shows non-displaced distal clavicle fracture Interventions of: -Sling, patient declined Tylenol. ED Course/Assessment/Plan: 83-year-old male was helping his girlfriend up from ground-level fall while she was mowing the lawn and fell over himself, injuring his right shoulder, he did not feel it was very severe on arrival and refused Tylenol. His girlfriend questions whether he hit his head, CT of the head and neck is negative for any acute abnormality, the x-ray shows a clear nondisplaced right distal clavicle fracture without skin tenting on exam and he is neurovascularly intact in the right upper extremity, he was placed in a sling, recommend RICE therapy and therapeutic dosing of Tylenol and ibuprofen as tolerated, I recommend he follow- up with PCP for further routine x-rays to ensure routine healing and possible referral to orthopedics, patient is a patient of [facility] orthopedics he may need to follow-up with his PCP for a referral outside of our organization. Stressed strict return criteria for any signs of neurovascular compromise or severe increase in pain or new trauma to the area. Findings not consistent with neurovascular compromise, unstable clavicle fracture, skin tenting, ICH, spinal cord or column injury. Disposition of Fracture of Right Clavicle. Patient verbalized understanding of the plan and return to ED criteria and engaged in shared decision making. Medical Records Medical records reviewed: Yes I reviewed the patient's medical records. Imaging Data Radiologic Study: Attestation: I personally reviewed and interpreted this imaging study as follows: Imaging: CT Scan Radiologist's impression: Exam(s) PROCEDURE INFORMATION: Exam: CT Head Without Contrast Exam date and time: 03/22/2024 7:12 PM Age: 83 years old Clinical indication: Other: Fall, possibly hit his head, no pain TECHNIQUE: Imaging protocol: Computed tomography of the head without contrast. COMPARISON: No relevant prior studies available. FINDINGS: Brain: No acute intracranial hemorrhage, mass-effect, midline shift, or extra-axial collection is seen. There is mild patchy white matter hypoattenuation, nonspecific but commonly seen as a chronic sequela of small vessel ischemic disease. The peres white matter differentiation appears preserved. There is mild symmetric parenchymal volume loss. Cerebral ventricles: The ventricular system and basilar cisterns appear appropriate in size and configuration. Paranasal sinuses: The visualized paranasal sinuses appear well-aerated. Mastoid air cells: The mastoid air cells appear well-aerated. Auditory system: The middle ear cavities appear clear. Orbital cavities: The globes and intraorbital structures appear grossly intact. Bones: The bony calvarium appears intact. No depressed skull fracture is seen. Soft tissues: No gross focal scalp hematoma is seen. Scattered coarse skin calcifications in the frontal scalp.There is atherosclerotic calcification within the intracranial portion of the internal carotid and vertebral arteries bilaterally. IMPRESSION: No acute intracranial hemorrhage or depressed skull fracture. PROCEDURE INFORMATION: Exam: CT Cervical Spine Without Contrast Exam date and time: 03/22/2024 7:12 PM Age: 83 years old Clinical indication: Other: Fall, possibly hit his head, no pain TECHNIQUE: Imaging protocol: Computed tomography of the cervical spine without contrast. COMPARISON: RF BARIUM SWALLOW 09/05/2021 8:51 AM FINDINGS: Bones/joints: No acute cervical fracture or malalignment is seen. C2-C3: Partial fusion across the disc space. Bilateral facet fusion. No significant cervical stenosis or significant foraminal narrowing. C3-C4: Loss of disc height with endplate irregularity. Posterior osteophytic ridging with bilateral uncovertebral hypertrophy. Prominent bilateral facet arthrosis with possible partial fusion across the facet joints. Mild central canal narrowing. Moderate left and severe right-sided foraminal narrowing. C4-C5: Disc height preserved. Severe bilateral facet arthrosis. Mild central canal narrowing. Moderate-severe bilateral foraminal narrowing. C5-C6: Loss of disc height with anterior osteophyte formation, posterior osteophytic ridging, and bilateral uncovertebral hypertrophy. Mild right and moderate left-sided facet arthrosis. Mild-moderate central canal narrowing with deformity of the thecal sac. Severe bilateral foraminal narrowing. C6-C7: Loss of disc height with anterior osteophyte formation, posterior osteophytic ridging, and prominent bilateral facet arthrosis. Mild central canal narrowing. Moderate bilateral foraminal narrowing. C7-T1: Disc height preserved. Prominent bilateral facet arthrosis. No significant cervical stenosis. Moderate bilateral foraminal narrowing. Thyroid: The right thyroid lobe is partially obscured but appears grossly unremarkable, as seen. The left thyroid lobe is not confidently identified. Prior partial thyroidectomy? Correlation with surgical history recommended. Lungs: The lung apices appear clear. Vasculature: There is mild atherosclerotic calcification at the carotid bifurcations bilaterally. Soft tissues: Within the limits of the exam, no gross soft tissue fluid collection is seen in the neck. IMPRESSION: No acute cervical fracture or malalignment is seen. Dictated and Authenticated by: Chad Villarreal MD. Ordering:OLIVER Julian MD Radiologic Study #2: Attestation: I personally reviewed and interpreted this imaging study as follows: Imaging: X-Ray My impression: R Distal Clavicle Fracture Radiologist's impression: Exam: XR Right Shoulder Exam date and time: 03/22/2024 7:16 PM Age: 83 years old Clinical indication: Other: Fall, R shoulder pain TECHNIQUE: Imaging protocol: Radiologic exam of the right shoulder. Views: 2 or more views. COMPARISON: CT HEAD CERVICAL SPINE WO 03/22/2024 7:12 PM FINDINGS: Bones/joints: A fracture is present at the distal clavicle, impacted and angulated, with minimal displacement. The acromioclavicular joint remains appropriately aligned. The proximal humerus is intact, without fracture. The glenohumeral joint is appropriately located. Soft tissues: Unremarkable. IMPRESSION: Distal clavicle fracture. Dictated and Authenticated by: Mane Swift MD. Ordering:OLIVER Julian MD Quality:SDOH Health Related Social Needs: No Data to Display [facility] All Active Problems (Updated 03/22/24 @ 20:53 by MAX Hammer) Fracture of right clavicle (Acute) Social History Smoking/Tobacco Use Status: Never Smoking risk assessment performed?: Yes Alcohol Intake: never Drug use: Never Substance use type: does not use Housing: house Do you feel safe at home: Yes Do you feel safe in your relationship?: Yes
--- NOTE | 2024-03-22 21:01 | DI.VRAD_ITS ---
PROCEDURE INFORMATION: Exam: CT Head Without Contrast Exam date and time: 03/22/2024 7:12 PM Age: 83 years old Clinical indication: Other: Fall, possibly hit his head, no pain TECHNIQUE: Imaging protocol: Computed tomography of the head without contrast. COMPARISON: No relevant prior studies available. FINDINGS: Brain: No acute intracranial hemorrhage, mass-effect, midline shift, or extra-axial collection is seen. There is mild patchy white matter hypoattenuation, nonspecific but commonly seen as a chronic sequela of small vessel ischemic disease. The peres white matter differentiation appears preserved. There is mild symmetric parenchymal volume loss. Cerebral ventricles: The ventricular system and basilar cisterns appear appropriate in size and configuration. Paranasal sinuses: The visualized paranasal sinuses appear well-aerated. Mastoid air cells: The mastoid air cells appear well-aerated. Auditory system: The middle ear cavities appear clear. Orbital cavities: The globes and intraorbital structures appear grossly intact. Bones: The bony calvarium appears intact. No depressed skull fracture is seen. Soft tissues: No gross focal scalp hematoma is seen. Scattered coarse skin calcifications in the frontal scalp.There is atherosclerotic calcification within the intracranial portion of the internal carotid and vertebral arteries bilaterally. IMPRESSION: No acute intracranial hemorrhage or depressed skull fracture. PROCEDURE INFORMATION: Exam: CT Cervical Spine Without Contrast Exam date and time: 03/22/2024 7:12 PM Age: 83 years old Clinical indication: Other: Fall, possibly hit his head, no pain TECHNIQUE: Imaging protocol: Computed tomography of the cervical spine without contrast. COMPARISON: RF BARIUM SWALLOW 09/05/2021 8:51 AM FINDINGS: Bones/joints: No acute cervical fracture or malalignment is seen. C2-C3: Partial fusion across the disc space. Bilateral facet fusion. No significant cervical stenosis or significant foraminal narrowing. C3-C4: Loss of disc height with endplate irregularity. Posterior osteophytic ridging with bilateral uncovertebral hypertrophy. Prominent bilateral facet arthrosis with possible partial fusion across the facet joints. Mild central canal narrowing. Moderate left and severe right-sided foraminal narrowing. C4-C5: Disc height preserved. Severe bilateral facet arthrosis. Mild central canal narrowing. Moderate-severe bilateral foraminal narrowing. C5-C6: Loss of disc height with anterior osteophyte formation, posterior osteophytic ridging, and bilateral uncovertebral hypertrophy. Mild right and moderate left-sided facet arthrosis. Mild-moderate central canal narrowing with deformity of the thecal sac. Severe bilateral foraminal narrowing. C6-C7: Loss of disc height with anterior osteophyte formation, posterior osteophytic ridging, and prominent bilateral facet arthrosis. Mild central canal narrowing. Moderate bilateral foraminal narrowing. C7-T1: Disc height preserved. Prominent bilateral facet arthrosis. No significant cervical stenosis. Moderate bilateral foraminal narrowing. Thyroid: The right thyroid lobe is partially obscured but appears grossly unremarkable, as seen. The left thyroid lobe is not confidently identified. Prior partial thyroidectomy? Correlation with surgical history recommended. Lungs: The lung apices appear clear. Vasculature: There is mild atherosclerotic calcification at the carotid bifurcations bilaterally. Soft tissues: Within the limits of the exam, no gross soft tissue fluid collection is seen in the neck. IMPRESSION: No acute cervical fracture or malalignment is seen. Dictated and Authenticated by: Chad Villarreal MD. Ordering:OLIVER Julian MD
--- NOTE | 2024-03-22 21:18 | DI.VRAD_ITS ---
PROCEDURE INFORMATION: Exam: XR Right Shoulder Exam date and time: 03/22/2024 7:16 PM Age: 83 years old Clinical indication: Other: Fall, R shoulder pain TECHNIQUE: Imaging protocol: Radiologic exam of the right shoulder. Views: 2 or more views. COMPARISON: CT HEAD CERVICAL SPINE WO 03/22/2024 7:12 PM FINDINGS: Bones/joints: A fracture is present at the distal clavicle, impacted and angulated, with minimal displacement. The acromioclavicular joint remains appropriately aligned. The proximal humerus is intact, without fracture. The glenohumeral joint is appropriately located. Soft tissues: Unremarkable. IMPRESSION: Distal clavicle fracture. Dictated and Authenticated by: Mane Swift MD. Ordering:OLIVER Julian MD
--- NOTE | 2024-03-23 09:14 | NUR.NOTE ---
Kimberly Gee called about this patient, he was d/c with clavicle fx and is asking for something for the pain. Nursing Note:
--- NOTE | 2024-03-23 09:23 | W.EDPROG ---
Date of service: 03/23/24 Time of Service: 09:24 Medical Decision Making This patient called the emergency department during my shift. He was seen yesterday following a fall. He was found to have a distal right clavicle fracture. He was advised acetaminophen and ibuprofen for analgesia and given a sling. He was reportedly having worsening pain. He has no PDMP records. I wrote him for 5 tablets of immediate release morphine at 7.5 mg. He was also taking acetaminophen 1000 mg every 8 hours and ibuprofen 200 mg every 6. He has PCP follow-up. Quality:[facility] Health Related Social Needs: No Data to Display Discharge Plan Disposition Patient Disposition: Home Condition: Stable Discharge Details Clinical Impression: Fracture of right clavicle Primary Care Provider: Fabiano Celaya ED Provider: Eliel Robin Home Meds and New Rx's Prescriptions: New morphine 15 mg tablet extended release 7.5 mg PO Q12H Qty: 5 0RF Continued atenolol 25 MG tablet 25 mg PO DAILY levothyroxine 125 MCG tablet 125 mcg PO DAILY furosemide 40 MG tablet 0.5 - 1 tab PO DAILY terazosin 2 MG capsule 2 cap PO HS potassium chloride 20 MEQ tablet extended release 0.5 tab PO DAILY polyethylene glycol 3350 17 GM powder in packet 17 gm PO HS pantoprazole 20 mg tablet,delayed release (DR/EC) 20 mg PO DAILY Patient Comments: TAKE ONE TABLET BY MOUTH EVERY DAY Lumigan 0.01 % drops 1 drp ophthalmic (eye) DAILY Patient Comments: INSTILL ONE DROP IN EACH EYE AT BEDTIME Discharge Instructions Instructions: Clavicle Fracture (ED) Additional Instructions: You were seen in the emergency department for your fall while attempting to help your girlfriend up. You have fractured the distal end of your right clavicle, may need to remain in a sling, ice the area frequently, ice to complete numbness then let rewarm. Take regular doses of Tylenol and ibuprofen for pain as long as it is safe for you to take those medications. It will be more comfortable to sleep in a recliner chair for the first week at least of your injury. Your fracture should heal without issue at a maximum of 8 weeks. Please follow-up with orthopedics for any complications, please follow-up with your primary care provider for routine x-rays throughout the healing period to ensure routine healing. Please return to the emergency department for any signs of neurovascular compromise like severe increase in pain in the right lower arm, temperature changes with numbness of the right lower arm, further trauma to the area with deformity. Referrals: [facility] [Provider Group] Fabiano Celaya MD [Primary Care Provider] - Discharge Data Discharge Date/Time-TO BE ENTERED AT DEPARTURE: 03/22/24 21:14
== END 2024-03-22 21:14 | disposition home or self-care (01) ==
PROVIDERS: Emergency Provider Physician Assistant; PCP Family Medicine
DX: S42.021A Displaced fracture of shaft of right clavicle, initial encounter for closed fracture (principal); M25.511 Pain in right shoulder; W19.XXXA Unspecified fall, initial encounter
CPT/HCPCS: 00123; 99284; 70450; 72125; 73030; 99283